=== PATIENT | female | born 1960 | race Caucasian/White ===

== ENCOUNTER 2016-08-29 18:59 | Inpatient (IN) | payer OTHER ==
[~2016-08-29] VITALS: Ht 157.5 cm; Wt 127.6 kg
[~2016-08-29 18:59] MED LIST: AMIT10TA6 PO; ASPCH81X PO; ATOR-26 PO; CHOLCAP5 PO; DICL-201 PO; FENO145T26 PO; FRS/40 PO; HYDR-4079 PO; INSU1INJ16 SC; LOSA50TA54 PO; MAGN500T4 PO; METO25TA56 PO; NVLNI SC; TRAM-10 PO
[2016-08-29] MEDS ORDERED: SODIUM CHLORIDE 0.9% 1000ML 1,000 ML IV STA (19:37)
[2016-08-29 19:58] LABS: BASO % 0.6 %; BASO ABS # 0.08 K/uL (0-0.2); COMPLETE YES; EOS % 3.7 %; HEMATOCRIT 31.9 % (37-47); IG% 0.5 %; LYMPH ABS # 3.86 K/uL (1.2-3.4); MEAN CELL VOLUME 86.9 fL (80-100); MEAN CORPUSCULAR HEMOGLOBIN 28.9 pg (25-34); MEAN CORPUSCULAR HGB CONC 33.2 g/dl (32-36); MEAN PLATELET VOLUME 9.9 fL (7.4-10.4); MONO % 6.8 %; NEUT % 58.4 %; PLATELET COUNT 288 K/uL (130-400); RED BLOOD COUNT 3.67 M/uL (4.2-5.4); WHITE BLOOD COUNT 12.85 K/uL (4.8-10.8)
[2016-08-29] MEDS ORDERED: CIPR1TAB10 PO (20:03)
[2016-08-29] MEDS ORDERED: MISCCAP80 (20:03)
[2016-08-29] MEDS ORDERED: LIRA18IN SQ (20:03)
[2016-08-29] MEDS ORDERED: NVLNI SQ (20:03)
[2016-08-29 20:16] LABS: BUN/CREATININE RATIO 17.5 (10-20); CREATININE 2.7 mg/dl (0.60-1.20); POTASSIUM 4.1 mmol/L (3.5-5.1)
[2016-08-29] MEDS ORDERED: SODIUM CHLORIDE 0.9% 500ML 500 ML IV STA (21:04)
[2016-08-29 21:36] LABS: URINE APPEARANCE CLEAR (CLEAR); URINE BILIRUBIN NEG (NEG); URINE COLOR YELLOW; URINE EPITHELIAL CELL AUTO 20-30 /lpf (0-5); URINE NITRITE NEG (NEG); URINE SPECIFIC GRAVITY 1.011 (1.000-1.030); UROBILINOGEN NEG (NEG); ZZUR CULT IF INDIC CLEAN CATCH NO
[2016-08-29 21:38] LABS: MANUAL MICROSCOPIC REQUIRED? NO; REVIEW REQ? NO
[2016-08-29 23:13] LABS: INR 1.1 (0.9-1.1); PARTIAL THROMBOPLASTIN RATIO 1.1; PROTHROMBIN TIME (PATIENT) 11.3 SECONDS (9.0-12.0)
--- NOTE | 2016-08-29 23:26 | History and Physical ---
History & Physical Date & Time of Service: Aug 29, 2016 at 22:45 . Chief Complaint: diarrhea . Primary Care Physician: Kaila Freitas M.D. . History of Present Illness Source: patient, clinic records, hospital records 55 YO female followed by Dr. Freitas. History of hypertension, DM, and other problems noted below. Bitten by domestic cat a few weeks ago. Seen in [place] ED and prescribed antibiotics (uncertain which ones). Persistent pain and swelling of dorsum of right hand, but no drainage. Prescribed ciprofloxacin yesterday. Developed diarrhea 4 days prior to admission. Diarrhea was very frequent for the first few days- sometimes twice an hour. She took Pepto-Bismol and probiotics. Only had 4 episodes today. Stools are loose with some blood. No abdominal pain, nausea, vomiting. Temp as high as 103 past few days. . Past Medical/Surgical History Chronic Medical Problems: (1) Charcot's joint of foot due to diabetes Status: Chronic (2) Chronic kidney disease (CKD), stage III (moderate) Status: Chronic (3) Diabetes mellitus, type 2 Status: Chronic (4) Diabetic neuropathy Status: Chronic (5) Dyslipidemia Status: Chronic (6) Hypertension Status: Chronic (7) Osteoarthritis Status: Chronic (8) Sleep apnea Status: Chronic Surgical Problems: (3) Status post colonoscopy Permanent Comment: 2012- 2 hyperplastic + 1 adenomatous polyps; 2016- normal Status: Chronic (4) Status post tonsillectomy Status: Chronic (5) Status post tubal ligation Status: Chronic . Family History FATHER COPD (chronic obstructive pulmonary disease) Heart disease MOTHER Rheumatoid arthritis SISTER Stroke SON Diabetes mellitus Social History Smoking Status: Former Smoker Alcohol Use: none Immunizations History of Influenza Vaccine: Yes History of Pneumococcal: Yes Allergies Coded Allergies: Amoxicillin (Verified Allergy, Intermediate, HIVES, 08/29/16) Clavulanic Acid (Verified Allergy, Intermediate, HIVES, 08/29/16) Lisinopril (Verified Adverse Reaction, Unknown, NAUSEA/VOMITING, 04/04/16) Home Medications Scheduled Amitriptyline Hcl (Elavil), 4 TAB PO HS Aspirin (Aspirin Chewable), 81 MG PO QAM Atorvastatin (Lipitor), 80 MG PO HS Cholecalciferol (Vitamin D3), 1 CAP PO QAM Ciprofloxacin Hcl (Cipro), 500 MG PO Q12 Diclofenac (Voltaren), 75 MG PO Q OTHER PM Fenofibrate (Tricor), 145 MG PO QAM Furosemide (Lasix), 40 MG PO ON HOLD Insulin Human NPH (Novolin N), 100 UNITS SC QAM Insulin Human NPH (Novolin N), 60 UNITS SQ QPM Insulin Regular (Human) (Novolin R Relion), 1 DOSE SC TID Liraglutide (Victoza), 1.8 UNITS SQ DAILY Losartan Potassium (Cozaar), 50 MG PO QAM Magnesium Oxide (Mg Supplement (Magnesium), 1 TAB PO QAM Metoprolol Tartrate (Lopressor) (Lopressor), 1 TAB PO BID Probiotic Product (Probiotic), 1 CAP DAILYBB Scheduled PRN Hydrocodone/Acetaminophen 10MG/325MG ([place] 10MG/325MG), 1 TAB PO TID PRN for Pain Tramadol (Ultram), 50 MG PO Q6H PRN for Pain Review of Systems Constitutional: + fatigue, + fever, + weight loss (few pounds) Eyes: + worsening of vision (occasional blurred vision), No diplopia ENT: No hearing loss, No nasal symptoms, No sore throat, No unusual epistaxis Respiratory: No cough, No shortness of breath Cardiovascular: + edema (chronic dependent), + palpitations (occasional past few days), No chest pain Abdomen: + problem reported (as noted above in HPI) Musculoskeletal: + problem reported (right lateral thigh pain) Genitourinary - Female: No dysuria, No hematuria Neurologic: + problem reported (diabetic neuropathy), No paralysis Endocrine: + fatigue, + problem reported (blood sugars fluctuating), No excessive thirst, No excessive urination Hematologic / Lymphatic: No abnormal bleeding/bruising, No swollen lymph nodes Integumentary: No itch, No new/changing skin lesions, No rash Physical Exam Vital Signs Date Time Temp Pulse Resp B/P Pulse Ox O2 Delivery O2 Flow Rate FiO2 08/29/16 21:47 70 18 114/72 98 Room Air 08/29/16 20:25 80 20 116/66 99 Room Air 08/29/16 19:08 37.0 83 19 117/71 99 Room Air General Appearance: WD/WN, no apparent distress, + obese Head: normocephalic, atraumatic Eyes: normal inspection, PERRL, EOMI, sclerae normal (conjuncitvae pink) ENT: normal ENT inspection, hearing grossly normal, pharynx normal, + pertinent finding (edentulous, uppper + lower dentures) Neck: supple, no adenopathy, thyroid normal, no JVD, trachea midline Respiratory/Chest: lungs clear, no respiratory distress Cardiovascular: regular rate, rhythm, no gallop, no JVD, no murmur, + pertinent finding (trace pretibial edema; pedal pulses diminished) Abdomen/GI: normal bowel sounds, non tender, soft, no organomegaly, no pulsatile mass Extremities/Musculoskelatal: no calf tenderness, normal capillary refill, + pedal edema (trace), + pertinent finding (Charcot deformity right foot; no diabetic foot ulcers) 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 (PERRL, EOMI, no facial palsy, no dysarthria), alert, normal mood/affect, oriented x 3, + pertinent finding ( proximal RLE weakness vs discomfort from pain) Skin: normal color, warm/dry, no rash Lymphatic: no adenopathy Diagnostics Laboratory Results Results Past 24 Hours Test 08/29/16 19:47 08/29/16 21:15 Range/Units White Blood Count 12.85 4.8-10.8 K/uL Red Blood Count 3.67 4.2-5.4 M/uL Hemoglobin 10.6 12.0-16.0 g/dL Hematocrit 31.9 37-47 % Mean Corpuscular Volume 86.9 80-100 fL Mean Corpuscular Hemoglobin 28.9 25-34 pg Mean Corpuscular Hemoglobin Concent 33.2 32-36 g/dl Platelet Count 288 130-400 K/uL Mean Platelet Volume 9.9 7.4-10.4 fL Neutrophils (%) (Auto) 58.4 % Lymphocytes (%) (Auto) 30.0 % Monocytes (%) (Auto) 6.8 % Eosinophils (%) (Auto) 3.7 % Basophils (%) (Auto) 0.6 % Neutrophils # (Auto) 7.48 1.4-6.5 K/uL Lymphocytes # (Auto) 3.86 1.2-3.4 K/uL Monocytes # (Auto) 0.88 0.11-0.59 K/uL Eosinophils # (Auto) 0.48 0-0.5 K/uL Basophils # (Auto) 0.08 0-0.2 K/uL RDW Standard Deviation 49.0 36.4-46.3 fL RDW Coefficient of Variation 15.3 11.5-14.5 % Immature Granulocyte % (Auto) 0.5 % Immature Granulocyte # (Auto) 0.07 0.00-0.02 K/uL Prothrombin Time 11.3 9.0-12.0 SECONDS Prothromb Time International Ratio 1.1 0.9-1.1 Activated Partial Thromboplast Time 27.7 21.0-31.0 SECONDS Partial Thromboplastin Ratio 1.1 Sodium Level 138 136-145 mmol/L Potassium Level 4.1 3.5-5.1 mmol/L Chloride Level 102 98-107 mmol/L Carbon Dioxide Level 28 21-32 mmol/L Anion Gap 8.0 3-11 mmol/L Blood Urea Nitrogen 47 7-18 mg/dl Creatinine 2.70 0.60-1.20 mg/dl Est Creatinine Clear Calc Drug Dose 29.8 ml/min Estimated GFR () 21.9 Estimated GFR (Non- 18.9 BUN/Creatinine Ratio 17.5 10-20 Random Glucose 133 70-99 mg/dl Calcium Level 10.0 8.5-10.1 mg/dl Total Bilirubin 0.3 0.2-1 mg/dl Direct Bilirubin 0.1 0-0.2 mg/dl Aspartate Amino Transf (AST/SGOT) 34 15-37 U/L Alanine Aminotransferase (ALT/SGPT) 34 12-78 U/L Alkaline Phosphatase 83 45-117 U/L Total Protein 8.3 6.4-8.2 gm/dl Albumin 3.5 3.4-5.0 gm/dl Lipase 148 73-393 U/L Urine Color YELLOW Urine Appearance CLEAR CLEAR Urine pH 5.0 4.5-7.5 Urine Specific [place] 1.011 1.000-1.030 Urine Protein NEG NEG Urine Glucose (UA) NEG NEG Urine Ketones NEG NEG Urine Occult Blood NEG NEG Urine Nitrite NEG NEG Urine Bilirubin NEG NEG Urine Urobilinogen NEG NEG Urine Leukocyte Esterase TRACE NEG Urine WBC (Auto) 1-5 0-5 /hpf Urine RBC (Auto) 0-4 0-4 /hpf Urine Hyaline Casts (Auto) 5-10 0-5 /lpf Urine Epithelial Cells (Auto) 20-30 0-5 /lpf Urine Bacteria (Auto) NEG NEG Urine Test NEG NEG Impression Assessment and Plan ACUTE KIDNEY INJURY CKD III with recent baseline creatinine 1.6 - 1.9. Serum creatinine now 2.7. Acute kidney injury probably due to volume depletion from diarrhea. IV fluids. Weaning off diclofenac under direction of Nephrology. DIARRHEA At risk for C diff- stool specimen pending. GI BLEEDING Most likely due to colitis. Colonoscopy last year reportedly normal. Follow H/H. CAT BITE RIGHT HAND Cat bite a few weeks ago, now on second course of antibiotics. Persistent swelling dorsum of right hand. Uncertain whether or not hand is infected at this time. Hold antibiotics in light of diarrhea. Markers of inflammation probably won't be helpful in setting of diarrheal illness. Check x-rays and US right hand. RLE PAIN Patient experiencing severe right lower extremity pain- suspect sciatica. Check plain films lumbar spine. Check US to r/o DVT. May need further imaging if symptoms persist. HYPERTENSION Continue metoprolol with hold parameters. SLEEP APNEA Intolerant of CPAP. DM TYPE II Fluctuating blood sugars due to current illness. Check Hgb A1C. Lantus / NovoLog during hospital stay. VTE PROPHYLAXIS No anticoagulants due to GI bleeding. SCD's. Ambulate. RESUSCITATION STATUS Discussed with patient. She does not have a living will. She would like resuscitation attempted in the event of a cardiopulmonary arrest if there is a reasonable chance of a meaningful recovery, but does not want prolonged extraordinary measures if prognosis is poor. Therefore, code status = "Level 1" (full resuscitation). DISPOSITION Admit to Med-Surg Unit. Expected discharge to home. Family Medicine follow-up with Dr. Freitas. . VTE Prophylaxis VTE Risk Assessment Done? Y/N: Yes Risk Level: Moderate Given or contraindicated: SCD's
[2016-08-29] MEDS ORDERED: HYDROCODONE/ACETAMI 10/325 TAB PO STA (23:43)
[2016-08-29] MEDS ORDERED: ATORVASTATIN 40 MG TAB PO STA (23:43)
[2016-08-29] MEDS ORDERED: METOPROLOL TARTRATE 25 MG TAB PO STA (23:43)
[2016-08-29 23:50] VITALS: BP 114/68; PULSE 73; TEMP 36.7; O2SAT 97
[2016-08-30 00:04] VITALS: BMI 51.5
--- NOTE | 2016-08-30 00:55 | EMERGENCY ROOM VISIT NOTE ---
History Report prepared by Vanessa: Eliseo Interiano Under the Supervision of: Dr. See Duarte D.O. First contact with patient: 19:17 Chief Complaint: GI ASSESSMENT Stated Complaint: CAT BITE - SWOLLEN RIGHT HAND History of Present Illness The patient is a 55 year old female who presents to the Emergency Room with complaints of persistent diarrhea beginning four days prior to arrival. She states she was bitten in her right hand by her cat six weeks ago and has been on antibiotics since. The patient notes she was on antibiotics for 24 days and was off of antibiotics for a week and then placed on Cipro yesterday. She states her stool is loose with mucous, blood, and white specs. The patient notes she follow with Lachelle Hernandez (Nephrology) for her poor kidney function due to her diabetes, in which, she had blood work done yesterday. She states Dr. John called the patient today to stop her Lasix and referred her to the ED for hydration. The patient notes she has had four bowel movements today after taking probiotics that past two days and Pepto-Bismol. She states she had bowel movements every twenty minutes yesterday. The patient notes the blood in the stool began last night. She states she has recently been taking care of her aunt who currently has C. Diff. Pt denies headache, change in vision, fevers, chest pain, shortness of breath, runny nose, nausea, vomiting, abdominal pain, pain with urination, and melena. 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 A total of 10 systems reviewed and were otherwise negative. Past Medical & Surgical Medical Problems: (1) Diabetes Surgical Problems: (1) S/P cholecystectomy (2) S/P tubal ligation Family History FH: cancer Social History Smoking Status: Former Smoker Marital Status: Occupation Status: unemployed Current/Historical Medications Scheduled Amitriptyline Hcl (Elavil), 4 TAB PO HS Aspirin (Aspirin Chewable), 81 MG PO QAM Atorvastatin (Lipitor), 80 MG PO HS Cholecalciferol (Vitamin D3), 1 CAP PO QAM Ciprofloxacin Hcl (Cipro), 500 MG PO Q12 Diclofenac (Voltaren), 75 MG PO Q OTHER PM Fenofibrate (Tricor), 145 MG PO QAM Furosemide (Lasix), 40 MG PO ON HOLD Insulin Human NPH (Novolin N), 100 UNITS SC QAM Insulin Human NPH (Novolin N), 60 UNITS SQ QPM Insulin Regular (Human) (Novolin R Relion), 1 DOSE SC TID Liraglutide (Victoza), 1.8 UNITS SQ DAILY Losartan Potassium (Cozaar), 50 MG PO QAM Magnesium Oxide (Mg Supplement (Magnesium), 1 TAB PO QAM Metoprolol Tartrate (Lopressor) (Lopressor), 1 TAB PO BID Probiotic Product (Probiotic), 1 CAP DAILYBB Scheduled PRN Hydrocodone/Acetaminophen 10MG/325MG ([place] 10MG/325MG), 1 TAB PO TID PRN for Pain Tramadol (Ultram), 50 MG PO Q6H PRN for Pain Allergies Coded Allergies: Amoxicillin (Verified Allergy, Intermediate, HIVES, 08/29/16) Clavulanic Acid (Verified Allergy, Intermediate, HIVES, 08/29/16) Lisinopril (Verified Adverse Reaction, Unknown, NAUSEA/VOMITING, 04/04/16) Physical Exam Vital Signs Date Time Temp Pulse Resp B/P Pulse Ox O2 Delivery O2 Flow Rate FiO2 08/30/16 00:24 Room Air 08/30/16 00:04 Room Air 08/29/16 23:20 78 18 130/74 98 Room Air 08/29/16 21:47 70 18 114/72 98 Room Air 08/29/16 20:25 80 20 116/66 99 Room Air 08/29/16 19:08 37.0 83 19 117/71 99 Room Air Physical Exam GENERAL: sitting up in bed, chronically ill appearing, no acute distress, non- toxic EYE EXAM: normal conjunctiva OROPHARYNX: no exudate, no erythema, lips, buccal mucosa, and tongue normal and mucous membranes are moist NECK: supple, no nuchal rigidity, no adenopathy, non-tender LUNGS: Clear to auscultation. Normal chest wall mechanics HEART: distant, no murmurs, S1 normal and S2 normal ABDOMEN: abdomen soft, non-tender, normo-active bowel sounds, no masses, no rebound or guarding. BACK: Back is symmetrical on inspection and there is no deformity, no midline tenderness, no CVA tenderness. SKIN: no rashes and no bruising UPPER EXTREMITIES: Erythema and swelling on the dorsal aspect of the right hand. LOWER EXTREMITIES: No pitting edema. NEURO EXAM: Normal sensorium, cranial nerves II-XII grossly intact, normal speech, no gross weakness of arms, no gross weakness of legs. Medical Decision & Procedures Laboratory Results 08/29/16 19:47 Red Blood Count 3.67, Mean Corpuscular Volume 86.9, Mean Corpuscular Hemoglobin 28.9, Mean Corpuscular Hemoglobin Concent 33.2, Mean Platelet Volume 9.9, Neutrophils (%) (Auto) 58.4, Lymphocytes (%) (Auto) 30.0, Monocytes (%) (Auto) 6.8, Eosinophils (%) (Auto) 3.7, Basophils (%) (Auto) 0.6, Neutrophils # (Auto) 7.48, Lymphocytes # (Auto) 3.86, Monocytes # (Auto) 0.88, Eosinophils # (Auto) 0.48, Basophils # (Auto) 0.08 08/29/16 19:47 Test 08/29/16 19:47 08/29/16 21:15 08/29/16 23:54 White Blood Count 12.85 K/uL (4.8-10.8) Red Blood Count 3.67 M/uL (4.2-5.4) Hemoglobin 10.6 g/dL (12.0-16.0) Hematocrit 31.9 % (37-47) Mean Corpuscular Volume 86.9 fL (80-100) Mean Corpuscular Hemoglobin 28.9 pg (25-34) Mean Corpuscular Hemoglobin Concent 33.2 g/dl (32-36) Platelet Count 288 K/uL (130-400) Mean Platelet Volume 9.9 fL (7.4-10.4) Neutrophils (%) (Auto) 58.4 % Lymphocytes (%) (Auto) 30.0 % Monocytes (%) (Auto) 6.8 % Eosinophils (%) (Auto) 3.7 % Basophils (%) (Auto) 0.6 % Neutrophils # (Auto) 7.48 K/uL (1.4-6.5) Lymphocytes # (Auto) 3.86 K/uL (1.2-3.4) Monocytes # (Auto) 0.88 K/uL (0.11-0.59) Eosinophils # (Auto) 0.48 K/uL (0-0.5) Basophils # (Auto) 0.08 K/uL (0-0.2) RDW Standard Deviation 49.0 fL (36.4-46.3) RDW Coefficient of Variation 15.3 % (11.5-14.5) Immature Granulocyte % (Auto) 0.5 % Immature Granulocyte # (Auto) 0.07 K/uL (0.00-0.02) Prothrombin Time 11.3 SECONDS (9.0-12.0) Prothromb Time International Ratio 1.1 (0.9-1.1) Activated Partial Thromboplast Time 27.7 SECONDS (21.0-31.0) Partial Thromboplastin Ratio 1.1 Anion Gap 8.0 mmol/L (3-11) Est Creatinine Clear Calc Drug Dose 29.8 ml/min Estimated GFR () 21.9 Estimated GFR (Non- 18.9 BUN/Creatinine Ratio 17.5 (10-20) Calcium Level 10.0 mg/dl (8.5-10.1) Total Bilirubin 0.3 mg/dl (0.2-1) Direct Bilirubin 0.1 mg/dl (0-0.2) Aspartate Amino Transf (AST/SGOT) 34 U/L (15-37) Alanine Aminotransferase (ALT/SGPT) 34 U/L (12-78) Alkaline Phosphatase 83 U/L (45-117) Total Protein 8.3 gm/dl (6.4-8.2) Albumin 3.5 gm/dl (3.4-5.0) Lipase 148 U/L (73-393) Urine Color YELLOW Urine Appearance CLEAR (CLEAR) Urine pH 5.0 (4.5-7.5) Urine Specific [place] 1.011 (1.000-1.030) Urine Protein NEG (NEG) Urine Glucose (UA) NEG (NEG) Urine Ketones NEG (NEG) Urine Occult Blood NEG (NEG) Urine Nitrite NEG (NEG) Urine Bilirubin NEG (NEG) Urine Urobilinogen NEG (NEG) Urine Leukocyte Esterase TRACE (NEG) Urine WBC (Auto) 1-5 /hpf (0-5) Urine RBC (Auto) 0-4 /hpf (0-4) Urine Hyaline Casts (Auto) 5-10 /lpf (0-5) Urine Epithelial Cells (Auto) 20-30 /lpf (0-5) Urine Bacteria (Auto) NEG (NEG) Urine Test NEG (NEG) Bedside Glucose 81 mg/dl (70-90) Laboratory results per my review. Medications Administered Medications (Trade) Dose Ordered Sig/Olivia Route Start Time Stop Time Status Last Admin Dose Admin Sodium Chloride 1,000 ml @ 999 mls/hr Q1H1M STAT IV 08/29/16 19:37 08/29/16 20:37 DC 08/29/16 20:24 999 MLS/HR Sodium Chloride (Nss 500ml) 500 ml @ 999 mls/hr Q31M STAT IV 08/29/16 21:04 08/29/16 21:34 DC 08/29/16 21:12 999 MLS/HR ED Course ED COURSE: Vital signs were reviewed and showed normal vitals. The patients medical record was reviewed The above diagnostic studies were performed and reviewed. ED treatments and interventions as stated above. 1924: The patient was evaluated in room B7. A complete history and physical examination was performed. 1936: Ordered Sodium Chloride 1,000 ml @ 999 mls/hr IV. 2029: Reevaluated and updated the patient at this time, and she has not provided a stool sample yet. The patient does not know the level of her baseline creatinine. The creatinine level will be obtained from [facility]. 2044: It is noted the patient's creatinine was 3.2 yesterday. It was 1.9 last month. 2048: I spoke to Lachelle Correa (Internal Medicine) about the patient's case, and she recommended having the patient follow up as an outpatient. 2103: Ordered Sodium Chloride 500 ml @ 999 mls/hr IV. 2142: I spoke to Lachelle Bains (Hospitalist) about the patient's case, and he will follow the patient for further evaluation. 2199: Upon reevaluation, the patient is doing well.I discussed my findings with the patient and she understands and agrees with the treatment plan. Based on the patients age, coexisting illnesses, exam and lab findings the decision to treat as an inpatient was made. The patient remained stable while under my care. The patient will be evaluated for further management. Medical Decision Differential diagnoses includes but is not limited to gastritis, peptic ulcer disease, GERD, gallbladder disease, pancreatitis, small bowel obstruction, acute coronary syndrome, pericarditis, ischemic bowel, irritable bowel disease, irritable bowel syndrome, appendicitis, diverticulitis, malignancy, hernia, urinary tract infection, torsion, /ectopic , perforation, trauma, infectious. Patient is a 55-year-old female referred in by nephrology and elevation in her creatinine. She has had persistent diarrhea over the past several days. She has no abdominal pain. She is able to drink liquids without difficulty. Labs show a leukocytosis of 12.8 thousand. A mild anemia at 10.6. BMP shows a creatinine of 2.7. Her baseline appears to be around 1.4. UA was negative. She is given 1.5 L normal saline and was able to tolerate to 4 glasses of for her. She is unable to give a stool several. I do question whether this is related to C. difficile with her recent antibiotic use secondary to the cellulitis of the right upper extremity. Patient was admitted to internal medicine with acute kidney injury. Consults Time Called: 2043 Consulting Physician: Lachelle Correa (Internal Medicine) Returned Call: 2048 I spoke to Lachelle Correa (Internal Medicine) about the patient's case, and she recommended having the patient follow up as an outpatient. Additional Consults: Time Called: 2130 Consulted Physician: Lachelle Bains (Hospitalist) Returned Call: 2142 Additional Comments: I spoke to Lachelle Bains (Hospitalist) about the patient's case, and he will follow the patient for further evaluation. Impression Primary Impression: Acute kidney injury Additional Impression: Diarrhea Scribe Attestation The scribe's documentation has been prepared under my direction and personally reviewed by me in its entirety. I confirm that the note above accurately reflects all work, treatment, procedures, and medical decision making performed by me. Departure Information Dispostion Being Evaluated By Hospitalist (Lachelle Bains (Hospitalist)) Referrals Kaila Freitas M.D. (PCP) Problem Qualifiers Additional Impression: Diarrhea Diarrhea type: unspecified type Qualified Codes: R19.7 - Diarrhea, unspecified
[2016-08-30] MEDS ORDERED: GLUCAGON FOR INJ 1 MG VIAL SQ PRN (02:15)
[2016-08-30] MEDS ORDERED: GLUCOSE 40% GEL 15 GM TUBE PO PRN (02:15)
[2016-08-30] MEDS ORDERED: DEXTROSE 50% 50 ML SYR IV PRN (02:15)
[2016-08-30] MEDS ORDERED: GLUCOSE 10 TABS/TUBE PO PRN (02:15)
[2016-08-30] MEDS: LACTATED RINGER'S 1000ML 1,000 ML IV SCH ×3 (02:16→21:04)
[2016-08-30 06:23] LABS: HEMATOCRIT 27.7 % (37-47); MEAN CELL VOLUME 88.2 fL (80-100); MEAN CORPUSCULAR HGB CONC 32.9 g/dl (32-36); PLATELET COUNT 228 K/uL (130-400); RED BLOOD COUNT 3.14 M/uL (4.2-5.4); WHITE BLOOD COUNT 10.29 K/uL (4.8-10.8)
[2016-08-30 06:49] LABS: CREATININE 3.3 mg/dl (0.60-1.20)
[2016-08-30 06:50] LABS: BUN/CREATININE RATIO 16.1 (10-20); CALCIUM 8.9 mg/dl (8.5-10.1); POTASSIUM 3.7 mmol/L (3.5-5.1)
[2016-08-30 07:23] LABS: ESTIMATED AVERAGE GLUCOSE 212 mg/dl; HA1C FLAG Normal (Normal)
[2016-08-30 07:30] VITALS: BP 124/73; PULSE 73; TEMP 36.5; O2SAT 100
--- NOTE | 2016-08-30 07:30 | DIAGNOSTIC IMAGING REPORT ---
Venous Doppler right leg RIGHT VENOUS DOPP LOWER EXT UNILAT CLINICAL HISTORY: right thigh pain Right TECHNIQUE: Is Doppler COMPARISON STUDY: None FINDINGS: Normal study IMPRESSION: Normal study Electronically signed by: Surinder Philip M.D. 08/30/2016 7:29 AM Dictated Date/Time: 08/30/2016 7:27 AM
--- NOTE | 2016-08-30 07:30 | DIAGNOSTIC IMAGING REPORT ---
RIGHT HAND 3 VIEWS HISTORY: cat bite, r/o osteomyelitis Right COMPARISON: None. FINDINGS: There is no fracture or dislocation. Dorsal soft tissue swelling. No underlying bony destruction. Mild osteoarthritis at the DIP, PIP, and radiocarpal joints. No radiopaque foreign bodies. IMPRESSION: Dorsal soft tissue swelling. No evidence for osteomyelitis. Electronically signed by: Domo Morales M.D. 08/30/2016 7:29 AM Dictated Date/Time: 08/30/2016 7:28 AM
--- NOTE | 2016-08-30 07:37 | DIAGNOSTIC IMAGING REPORT ---
RIGHT HAND ULTRASOUND CLINICAL HISTORY: cat bite, rule out drainable fluid collection Right COMPARISON STUDY: Right hand 08/30/2016. FINDINGS: There is a complex fluid collection containing echogenic foci on the dorsum of the right hand. This is adjacent to and surrounds the dorsal tendons. This measures approximate 1.6 x 0.5 cm. The dorsal tendons appear to be thickened. There is also increased echogenicity within the fat and subcutaneous edema within the dorsum of the hand consistent with a cellulitis. IMPRESSION: 1. Right hand dorsal cellulitis. 2. A complex fluid collection containing echogenic foci in the dorsum of the hand. Which is adjacent to an surrounds the dorsal tendons. This measures approximately 1.6 x 0.5 cm. This would not be amenable to percutaneous drainage due to the complex nature of the fluid collection. This is concerning for a developing abscess. Consider incision and drainage. Electronically signed by: Domo Morales M.D. 08/30/2016 7:36 AM Dictated Date/Time: 08/30/2016 7:31 AM
--- NOTE | 2016-08-30 07:57 | DIAGNOSTIC IMAGING REPORT ---
LUMBAR SPINE 5 VIEWS HISTORY: Pain trauma COMPARISON: None. FINDINGS: There is no fracture. No subluxation. Moderate degenerative disc changes throughout. IMPRESSION: Moderate degenerative change. No acute abnormality. Electronically signed by: Surinder Philip M.D. 08/30/2016 7:55 AM Dictated Date/Time: 08/30/2016 7:55 AM
[2016-08-30] MEDS: METOPROLOL TARTRATE 25 MG TAB PO SCH ×2 (08:57→21:13)
[2016-08-30] MEDS: FENOFIBRATE 145 MG TAB PO SCH (08:57)
[2016-08-30] MEDS: ASPIRIN 81 MG ECTAB PO SCH (08:57)
[2016-08-30] MEDS: LOSARTAN POTASSIUM 50 MG TAB PO SCH (08:57)
[2016-08-30] MEDS: INSULIN ASPART 100 UNITS/ML 3 ML PEN SC SCH ×4 (09:03→21:00)
[2016-08-30] MEDS: INSULIN GLARGINE SOLOSTAR 100 UNITS/ML 3 ML PEN SC SCH ×2 (09:04→21:11)
[2016-08-30] MEDS: TRAMADOL HCL 50 MG TAB PO PRN ×2 (09:12→18:21)
[2016-08-30 09:40] VITALS: O2SAT 94
[2016-08-30 11:26] VITALS: Ht 157.5 cm; Wt 127.6 kg
[2016-08-30] MEDS ORDERED: VANCOMYCIN HCL 125 MG/2.5ML SOLN PO ONE (15:45)
[2016-08-30] MEDS ORDERED: RASPBERRY SYRUP 5 ML UDP PO ONE (15:45)
[2016-08-30 16:02] VITALS: BP 116/70; PULSE 73; TEMP 36.9; O2SAT 100
--- NOTE | 2016-08-30 16:08 | ORTHOPEDIC PROGRESS NOTE ---
DATE: 08/30/2016 SUBJECTIVE: The patient is a 55-year-old white female we have been asked to see for a cat bite was approximately 6 weeks out. The patient was admitted by [facility] service and she has a diagnosis of C. difficile diarrhea and acute kidney injury and GI bleeding, which was felt to be due to colitis. However, it was also noted with she had right hand swelling of the that she had mentioned that she had been bitten by a cat approximately 6 weeks ago. She states that she cleansed the wound at the time of the bite and the cat has done this in the past and has not turned into anything; however, after about a week or so, the hand began to swell very much and turned purplish and at that time she went to [facility] office and was seen by the staff there and was started on antibiotics. She continued to have the swelling and discomfort and she stated that her skin was starting to peel and crack over some of the areas and she went to [place] [facility]. At that point in time, she was switched onto 2 different antibiotics that she was on prior and at that time she also had a hand x-ray and which she states to be an ultrasound of the right hand and was then discharged. Over time, the swelling had gone down to the point where it was almost normal. She states that she has been off her antibiotics for approximately 1 week and had began having her symptoms of other problems prior to admit. She states that she noted it started to swell more but not to the extent of what it was prior to her antibiotics that she had received. OBJECTIVE: On examination of the right upper extremity just looking at her hand, there is an area over the fourth metacarpal where you can see where the cat bite was, she does have an area over the fourth and fifth metacarpals that has some mild to moderate edema but is not erythematous, has a slight dusky erythema to it in a small section near the bite and has some mild tenderness between the fourth and fifth metacarpals on palpation. She tolerates passive dorsiflexion of the 4th and 5th fingers without any increased pain. She tolerates passive and active flexion of the 4th and 5th fingers without any pain. She has full range of motion of her fingers at this time without discomfort. She is able to move the wrist back and forth without discomfort. Capillary refill is less than 2 seconds and she does have some decreased sensation that is equal to her left hand due to neuropathy and she states that this has not worsened since the cat bite. IMAGING DATA: The patient had an ultrasound of the right hand today which showed right hand dorsal cellulitis and a complex fluid collection containing echogenic foci in the dorsum of the hand measuring approximately 1.6 x 0.5 cm, stating that it would not be amenable to percutaneous drainage due to the complex nature of the fluid collection concerning for abscess and x-ray shows dorsal soft tissue swelling, no evidence of osteomyelitis at this point in time. Otherwise, a normal x-ray. ASSESSMENT: Fluid collection, dorsum of the right hand at the fourth and fifth metacarpals, possibly consistent with abscess due to cat bite 6 weeks ago. PLAN: At this point, we will contact the [facility] and see if she did indeed have an ultrasound done there approximately 3 weeks ago to compare with today's ultrasound. She was currently put on p.o. vancomycin for her C. difficile diarrhea. I will confer with Dr. Rendon who is personal fitness manager at this time to discuss further antibiotic treatment for this and the possible need for irrigation and debridement of the area. MONTSE
--- NOTE | 2016-08-30 16:11 | Progress Note ---
Internal Med Progress Note Date of Service: Aug 30, 2016. Provider Documentation: SUBJECTIVE: The Patient was seen and examined Has had 2 loose stool today A little formed Complains of pain right dorsum OBJECTIVE: Vital Signs-as noted below Exam: General-no distress Eyes-normal ENT-normal Neck-supple Lungs-clear to ausucltate bilaterally Heart-Regular,no murmur Abdomen-benign,no masses,bowel sound present Extremities-No edema Right Dorsum is swollen ,increased local temp and tender to palpate Neuro-AAOx3 Lab data as noted below. ASSESSMENT & PLAN: DIARRHEA Has had 2 courses of antibiotic as an OP At risk for C diff- stool-positive Will start Vancomycin ACUTE KIDNEY INJURY Likely secondary to dehydration CKD III with recent baseline creatinine 1.6 - 1.9. Serum creatinine now 2.7. Avoid Nephrotoxic agents IVF and monitor DM TYPE II-uncontrolled Fluctuating blood sugars due to current illness. Check Hgb A1C-9. Lantus / NovoLog during hospital stay. SSI CAT BITE RIGHT HAND Cat bite a few weeks ago, now on second course of antibiotics. Persistent swelling dorsum of right hand. X-ray does not show any Osteo Fluid collection suspicious for an Abscess Ortho consulted for possible I&D No antibiotic yet-has had 2 course as an OP GI BLEEDING Most likely due to colitis. Colonoscopy last year reportedly normal. Follow H/H. RLE PAIN Patient experiencing severe right lower extremity pain- suspect sciatica. Check plain films lumbar spine. Check US to r/o DVT.-no DVT HYPERTENSION Continue metoprolol with hold parameters. SLEEP APNEA Intolerant of CPAP. VTE PROPHYLAXIS No anticoagulants due to GI bleeding. SCD's. Ambulate. RESUSCITATION STATUS-Level 1 DISPOSITION Admit to Med-Surg Unit. Expected discharge to home. Family Medicine follow-up with Dr. Freitas. Vital Signs: Date Time Temp Pulse Resp B/P Pulse Ox O2 Delivery O2 Flow Rate FiO2 08/30/16 09:40 94 08/30/16 07:40 Room Air 08/30/16 07:30 36.5 73 16 124/73 100 Room Air 08/30/16 00:24 Room Air 08/30/16 00:04 Room Air 08/29/16 23:50 36.7 73 18 114/68 97 Room Air 08/29/16 23:20 78 18 130/74 98 Room Air 08/29/16 21:47 70 18 114/72 98 Room Air 08/29/16 20:25 80 20 116/66 99 Room Air 08/29/16 19:08 37.0 83 19 117/71 99 Room Air Lab Results: Results Past 24 Hours Test 08/29/16 19:47 08/29/16 21:15 08/29/16 23:26 08/29/16 23:54 Range/Units White Blood Count 12.85 4.8-10.8 K/uL Red Blood Count 3.67 4.2-5.4 M/uL Hemoglobin 10.6 12.0-16.0 g/dL Hematocrit 31.9 37-47 % Mean Corpuscular Volume 86.9 80-100 fL Mean Corpuscular Hemoglobin 28.9 25-34 pg Mean Corpuscular Hemoglobin Concent 33.2 32-36 g/dl Platelet Count 288 130-400 K/uL Mean Platelet Volume 9.9 7.4-10.4 fL Neutrophils (%) (Auto) 58.4 % Lymphocytes (%) (Auto) 30.0 % Monocytes (%) (Auto) 6.8 % Eosinophils (%) (Auto) 3.7 % Basophils (%) (Auto) 0.6 % Neutrophils # (Auto) 7.48 1.4-6.5 K/uL Lymphocytes # (Auto) 3.86 1.2-3.4 K/uL Monocytes # (Auto) 0.88 0.11-0.59 K/uL Eosinophils # (Auto) 0.48 0-0.5 K/uL Basophils # (Auto) 0.08 0-0.2 K/uL RDW Standard Deviation 49.0 36.4-46.3 fL RDW Coefficient of Variation 15.3 11.5-14.5 % Immature Granulocyte % (Auto) 0.5 % Immature Granulocyte # (Auto) 0.07 0.00-0.02 K/uL Prothrombin Time 11.3 9.0-12.0 SECONDS Prothromb Time International Ratio 1.1 0.9-1.1 Activated Partial Thromboplast Time 27.7 21.0-31.0 SECONDS Partial Thromboplastin Ratio 1.1 Sodium Level 138 136-145 mmol/L Potassium Level 4.1 3.5-5.1 mmol/L Chloride Level 102 98-107 mmol/L Carbon Dioxide Level 28 21-32 mmol/L Anion Gap 8.0 3-11 mmol/L Blood Urea Nitrogen 47 7-18 mg/dl Creatinine 2.70 0.60-1.20 mg/dl Est Creatinine Clear Calc Drug Dose 29.8 ml/min Estimated GFR () 21.9 Estimated GFR (Non- 18.9 BUN/Creatinine Ratio 17.5 10-20 Random Glucose 133 70-99 mg/dl Calcium Level 10.0 8.5-10.1 mg/dl Total Bilirubin 0.3 0.2-1 mg/dl Direct Bilirubin 0.1 0-0.2 mg/dl Aspartate Amino Transf (AST/SGOT) 34 15-37 U/L Alanine Aminotransferase (ALT/SGPT) 34 12-78 U/L Alkaline Phosphatase 83 45-117 U/L Total Protein 8.3 6.4-8.2 gm/dl Albumin 3.5 3.4-5.0 gm/dl Lipase 148 73-393 U/L Hepatitis C Antibody NEG NEG Urine Color YELLOW Urine Appearance CLEAR CLEAR Urine pH 5.0 4.5-7.5 Urine Specific [place] 1.011 1.000-1.030 Urine Protein NEG NEG Urine Glucose (UA) NEG NEG Urine Ketones NEG NEG Urine Occult Blood NEG NEG Urine Nitrite NEG NEG Urine Bilirubin NEG NEG Urine Urobilinogen NEG NEG Urine Leukocyte Esterase TRACE NEG Urine WBC (Auto) 1-5 0-5 /hpf Urine RBC (Auto) 0-4 0-4 /hpf Urine Hyaline Casts (Auto) 5-10 0-5 /lpf Urine Epithelial Cells (Auto) 20-30 0-5 /lpf Urine Bacteria (Auto) NEG NEG Urine Test NEG NEG Bedside Glucose 70 81 70-90 mg/dl Test 08/30/16 06:05 08/30/16 07:00 08/30/16 12:06 Range/Units White Blood Count 10.29 4.8-10.8 K/uL Red Blood Count 3.14 4.2-5.4 M/uL Hemoglobin 9.1 12.0-16.0 g/dL Hematocrit 27.7 37-47 % Mean Corpuscular Volume 88.2 80-100 fL Mean Corpuscular Hemoglobin 29.0 25-34 pg Mean Corpuscular Hemoglobin Concent 32.9 32-36 g/dl RDW Standard Deviation 49.5 36.4-46.3 fL RDW Coefficient of Variation 15.3 11.5-14.5 % Platelet Count 228 130-400 K/uL Mean Platelet Volume 10.0 7.4-10.4 fL Sodium Level 138 136-145 mmol/L Potassium Level 3.7 3.5-5.1 mmol/L Chloride Level 104 98-107 mmol/L Carbon Dioxide Level 26 21-32 mmol/L Anion Gap 8.0 3-11 mmol/L Blood Urea Nitrogen 53 7-18 mg/dl Creatinine 3.30 0.60-1.20 mg/dl Est Creatinine Clear Calc Drug Dose 24.4 ml/min Estimated GFR () 17.2 Estimated GFR (Non- 14.9 BUN/Creatinine Ratio 16.1 10-20 Random Glucose 67 70-99 mg/dl Estimated Average Glucose 212 mg/dl Hemoglobin A1c 9.0 4.5-5.6 % Calcium Level 8.9 8.5-10.1 mg/dl Total Creatine Kinase 66 26-192 U/L Bedside Glucose 72 103 70-90 mg/dl Microbiology Results 08/30/16 C.difficile Toxin B Gene (PCR) - Final, Complete Positive for C. difficile toxin B gene
[2016-08-30] MEDS ORDERED: DOXYCYCLINE IV 100 MG in DEXTROSE 5% 100ML 100 ML IV ONE (18:00)
[2016-08-30] MEDS: VANCOMYCIN HCL 125 MG/2.5ML SOLN PO SCH ×2 (18:28→21:04)
[2016-08-30] MEDS: RASPBERRY SYRUP 5 ML UDP PO SCH ×2 (18:28→21:06)
[2016-08-30 19:25] VITALS: O2SAT 100
[2016-08-30] MEDS: HYDROCODONE/ACETAMI 10/325 TAB PO PRN (21:05)
[2016-08-30] MEDS: AMITRIPTYLINE HCL 10 MG TAB PO SCH (21:06)
[2016-08-30] MEDS: ATORVASTATIN 40 MG TAB PO SCH (21:14)
[2016-08-30 23:39] VITALS: BP 121/81; PULSE 66; TEMP 36.4; O2SAT 100
[2016-08-31] VITALS (10 sets, daily range): BP systolic 110–135; BP diastolic 51–74; PULSE 69–83; TEMP 36.6–37; O2SAT 93–100
[2016-08-31] MEDS ORDERED: ALUMINUM/MAGNESIUM/SIMETH (MAALOX MAX) 30 ML UDC PO ONE (04:30)
[2016-08-31] MEDS: DOXYCYCLINE IV 100 MG in DEXTROSE 5% 100ML 100 ML IV SCH ×2 (05:56→19:58)
[2016-08-31] MEDS: LACTATED RINGER'S 1000ML 1,000 ML IV SCH ×2 (07:45→19:58)
[2016-08-31] MEDS: INSULIN ASPART 100 UNITS/ML 3 ML PEN SC SCH ×4 (08:00→21:52)
[2016-08-31] MEDS: HYDROCODONE/ACETAMI 10/325 TAB PO PRN (08:01)
[2016-08-31] MEDS: INSULIN GLARGINE SOLOSTAR 100 UNITS/ML 3 ML PEN SC SCH ×2 (09:00→21:53)
--- NOTE | 2016-08-31 09:53 | Orthopedic Progress Note ---
Orthopedic Progress Note Date of Service Aug 31, 2016. Subjective Reports: complaints (c/o right thigh/hip pain that started on Saturday), feeling well, Denies: SOB, chest pain, light headedness, nausea / vomiting Additional Notes: Awake, alert. C/O hip pain in the right lateral hip and anterior thigh today that apparently started Saturday when she was admitted. States that her hand feels "ok" but has a little soreness over the swollen area at the 4-5th metacarpal. No new changes with her hand. Objective Right hand with no overt changes. Dusky swollen area over the 4th and 5th metacarpals at the distal end. Continues to have good ROM. Decreased sensation due to neuropathy which has not changed. Right hip with soreness on palpation. Also tender at the anterior thigh. With FF of the hip, the pain starts in the quadriceps muscles and radiates to the lateral hip and some into the buttock. No pain with log rolling. No pain with Abduction. Mild pain with Adduction. No pain into the lower extremity but she states that she's had the neuropathy in her feet for some time and cannot feel much in her feet. No overt back pain on palpation. Date Time Temp Pulse Resp B/P Pulse Ox O2 Delivery O2 Flow Rate FiO2 08/31/16 07:59 36.6 71 16 110/52 95 Room Air 08/31/16 07:58 95 Room Air 08/30/16 23:58 Room Air 08/30/16 23:39 36.4 66 18 121/81 100 Room Air 08/30/16 19:25 100 Room Air 08/30/16 16:02 36.9 73 18 116/70 100 Room Air 08/30/16 09:40 94 Room Air Assessment & Plan Assessment: Right hand fluid collection noted on ultra sound likely due to cat bite Right LE pain. Plan: [facility] physician to make final decision on right hand I&D. Possible OR today. Keep NPO. Will discuss RLE symptoms with Spine team. Bursitis a possibility of the lateral hip but with her sx's, it seems more radicular. Discussed with Dr Hartley and he viewed xrays. Would be better to have an MRI of the lumbar spine. Will discuss with patient.
[2016-08-31] MEDS: METOPROLOL TARTRATE 25 MG TAB PO SCH ×2 (10:12→21:40)
[2016-08-31] MEDS: RASPBERRY SYRUP 5 ML UDP PO SCH ×4 (10:13→21:39)
[2016-08-31] MEDS: VANCOMYCIN HCL 125 MG/2.5ML SOLN PO SCH ×4 (10:13→21:39)
--- NOTE | 2016-08-31 11:28 | Progress Note ---
Internal Med Progress Note Date of Service: Aug 31, 2016. Provider Documentation: SUBJECTIVE: The Patient was seen and examined No more Diarrhea today Complains of anterior and lateral thigh pain Rihgt hand is better OBJECTIVE: Vital Signs-as noted below Exam: General-no distress Eyes-normal ENT-normal Neck-supple Lungs-clear to ausucltate bilaterally Heart-Regular,no murmur Abdomen-benign,no masses,bowel sound present Extremities-No edema Right Dorsum is swollen ,increased local temp and tender to palpate -improved Right hip movement is not so painful Has some tenderness over Greater trochanteric area Neuro-AAOx3 Lab data as noted below. ASSESSMENT & PLAN: DIARRHEA Has had 2 courses of antibiotic as an OP At risk for C diff- stool-positive Will start Vancomycin Diarrhea is controlled ACUTE KIDNEY INJURY Likely secondary to dehydration CKD III with recent baseline creatinine 1.6 - 1.9. Serum creatinine now 2.7. Avoid Nephrotoxic agents IVF and monitor DM TYPE II-uncontrolled Fluctuating blood sugars due to current illness. Check Hgb A1C-9. Lantus / NovoLog during hospital stay. SSI CAT BITE RIGHT HAND Cat bite a few weeks ago, now on second course of antibiotics. Persistent swelling dorsum of right hand. X-ray does not show any Osteo Fluid collection suspicious for an Abscess Ortho consulted for possible I&D -appreciate input No antibiotic yet-has had 2 course as an OP IV Doxycycline started yesterday GI BLEEDING Most likely due to colitis. Colonoscopy last year reportedly normal. Follow H/H. RLE PAIN Patient experiencing severe right lower extremity pain- suspect sciatica. Check plain films lumbar spine. Check US to r/o DVT.-no DVT Pain seems to be Musculoskeletal HYPERTENSION Continue metoprolol with hold parameters. SLEEP APNEA Intolerant of CPAP. VTE PROPHYLAXIS No anticoagulants due to GI bleeding. SCD's. Ambulate. RESUSCITATION STATUS-Level 1 DISPOSITION Admit to Med-Surg Unit. Expected discharge to home. Family Medicine follow-up with Dr. Freitas. Vital Signs: Date Time Temp Pulse Resp B/P Pulse Ox O2 Delivery O2 Flow Rate FiO2 08/31/16 07:59 36.6 71 16 110/52 95 Room Air 08/31/16 07:58 95 Room Air 08/30/16 23:58 Room Air 08/30/16 23:39 36.4 66 18 121/81 100 Room Air 08/30/16 19:25 100 Room Air 08/30/16 16:02 36.9 73 18 116/70 100 Room Air Lab Results: Results Past 24 Hours Test 08/30/16 12:06 08/30/16 16:52 08/30/16 20:45 08/31/16 05:53 Range/Units Bedside Glucose 103 103 107 96 70-90 mg/dl Test 08/31/16 10:09 Range/Units Bedside Glucose 98 70-90 mg/dl
[2016-08-31 12:18] LABS: HEMATOCRIT 29.8 % (37-47); MEAN CELL VOLUME 89.2 fL (80-100); MEAN CORPUSCULAR HGB CONC 32.6 g/dl (32-36); MEAN PLATELET VOLUME 9.9 fL (7.4-10.4); PLATELET COUNT 283 K/uL (130-400); RED BLOOD COUNT 3.34 M/uL (4.2-5.4); WHITE BLOOD COUNT 8.14 K/uL (4.8-10.8)
[2016-08-31] MEDS: LOSARTAN POTASSIUM 50 MG TAB PO SCH (12:33)
[2016-08-31] MEDS: ASPIRIN 81 MG ECTAB PO SCH (12:34)
[2016-08-31] MEDS: TRAMADOL HCL 50 MG TAB PO PRN ×2 (12:34→21:39)
[2016-08-31] MEDS: FENOFIBRATE 145 MG TAB PO SCH (12:34)
[2016-08-31 12:52] LABS: BUN/CREATININE RATIO 17.8 (10-20); CALCIUM 9.3 mg/dl (8.5-10.1); CREATININE 2.3 mg/dl (0.60-1.20); POTASSIUM 4.2 mmol/L (3.5-5.1)
[2016-08-31] MEDS ORDERED: ATROPINE SULFATE 0.1 MG/ML 5ML SYR IV PRN (15:15)
[2016-08-31] MEDS ORDERED: FENTANYL CITRATE INJ 50 MCG/1 ML 2 ML VIAL IV PRN (15:15)
[2016-08-31] MEDS ORDERED: EpHEDrine SULFATE INJ 50 MG/ML AMP IV PRN (15:15)
[2016-08-31] MEDS ORDERED: VANCOMYCIN 1GM/270ML NSS ONE (15:15)
--- NOTE | 2016-08-31 15:29 | History & Physical Bridge Note ---
H&P Re-Evaluation Bridge Note: I have examined the patient, reviewed the History & Physical and in the interval since the performance of the History & Physical I have noted the following changes of clinical significance: No changes noted
[2016-08-31] MEDS ORDERED: FENTANYL CITRATE INJ 50 MCG/1 ML 2 ML VIAL ONE (15:38)
[2016-08-31] MEDS ORDERED: ONDANSETRON INJ 2 MG/ML 2 ML VIAL ONE (15:38)
[2016-08-31] MEDS ORDERED: LIDOCAINE HCL 2% 2 ML VIAL (20MG/ML) ONE (15:38)
[2016-08-31] MEDS ORDERED: MIDAZOLAM HCL 1 MG/ML 2ML VIAL ONE (15:38)
[2016-08-31] MEDS ORDERED: PROPOFOL IV EMULSION 10 MG/ML 20 ML VIAL IV ONE (15:38)
[2016-08-31] MEDS ORDERED: DEXAMETHASONE SOD INJ 4 MG/ML VIAL ONE (15:38)
[2016-08-31] MEDS ORDERED: BACITRACIN 50000 UNIT VIAL ONE (16:07)
[2016-08-31] MEDS ORDERED: BUPIVACAINE/EPINEPHRINE 0.5% MPF 1:200,000 30 ML VIAL ONE (16:10)
--- NOTE | 2016-08-31 17:21 | ORTHOPEDIC CONSULTATION ---
DATE OF CONSULTATION: 08/31/2016 CHIEF COMPLAINT: Right hand swelling. HISTORY OF PRESENT ILLNESS: The patient is a 55-year-old female who had sustained a cat bite approximately 6 weeks ago. A week or so after the initial injury, she started having increasing pain and swelling over the hand. She was seen and evaluated at an outside emergency room where she was given antibiotics. She continued to have pain and swelling, no drainage. Antibiotics were changed and over time the swelling and erythema went down to the point where it was essentially normal. Over the last week or so; however, she has been having increasing symptoms, increasing swelling over the dorsum of the hand. No open wounds, no drainage, only minimal pain and some mild erythema in that region, but she has had persistent swelling. She had developed a significant course of diarrhea, subsequently found to have C. difficile. She is currently admitted to the hospital for treatment of the diarrhea and some other medical concerns. Currently complaining of swelling over the dorsum of the hand and some mild pain. PAST MEDICAL HISTORY: Diabetes type 2, diabetic neuropathy, chronic kidney disease, stage 3, dyslipidemia, hypertension, sleep apnea. PAST SURGICAL HISTORY: Tonsillectomy, tubal ligation, colonoscopy. FAMILY HISTORY: Coronary artery disease, COPD, rheumatoid arthritis, diabetes. SOCIAL HISTORY: Former smoker, quit approximately 18 months ago. ALLERGIES: AMOXICILLIN, CLAVULANIC ACID, LISINOPRIL. MEDICATIONS: Amitriptyline, aspirin, Lipitor, vitamin D, Cipro, Voltaren, Tricor, Lasix, Novolin, Victoza, Cozaar, magnesium, Lopressor, probiotic, [place], Tramadol. REVIEW OF SYSTEMS: Negative except for above. PHYSICAL EXAMINATION: VITAL SIGNS: Afebrile. Vital signs stable. GENERAL: Alert and oriented x3 in no acute distress. Mood and affect normal. She is pleasant and cooperative with examination. HEENT: Atraumatic. CHEST: Clear. CARDIOVASCULAR: Regular rhythm. ABDOMEN: Soft. EXTREMITIES: Examination of right upper extremity, 2+ right radial pulse. Light touch sensation and motor function in the median, ulnar and radial nerve distributions is intact. She has some swelling over the dorsum of the hand centered around the region of the fourth metacarpal extends back to the region of the fifth metacarpal slightly towards the third. Region has softness to it but no true fluctuance. There are no open wounds. She has normal range of motion of the hand and fingers. She is able to flex and extend the hand without pain. She has no tenderness to palpation along the extensor tendons proximally or distally. Contralateral hand examination is unremarkable. IMAGING: Ultrasound demonstrated a complex fluid collection over the dorsum of the hand that they felt was not amenable to ultrasound-guided aspiration. X-ray shows some soft tissue swelling. ASSESSMENT: Right hand 6 weeks status post cat bite with a complex fluid collection concerning for abscess. PLAN: Given her failure of the nonoperative management with p.o. antibiotics and the fluid collection seen on the ultrasound, we have recommended open irrigation and debridement. Risks, benefits and alternatives to surgery including but not limited to infection, DVT, pain, stiffness, need for urgent surgery, failure to relieve all symptoms, need for revision procedure, need for longer term IV antibiotics, damage to blood vessels, damage to nerves, risks of anesthesia discussed with the patient and she wished to proceed. All questions were answered.
[2016-08-31] MEDS ORDERED: OXYCODONE HCL IR 5 MG TAB (IMMEDIATE RELEASE) PO PRN (17:30)
--- NOTE | 2016-08-31 17:35 | [facility] Post Operative Brief Note ---
Immediate Operative Summary Operative Date Aug 31, 2016. Pre-Operative Diagnosis Right hand infection s/p cat bite Post-Operative Diagnosis same Procedure(s) Performed Right Hand Incision and Drainage Surgeon Dr. Daniele Urban Chicken Vaccinator Surgeon(s) Navid Wyman PA-C Estimated Blood Loss 5ML Findings large amount of granulation tissue and some mild milky fluid Specimens A. Dorsal Right Hand Tissue Drains 1 ravin Anesthesia geta Complication(s) None Disposition Recovery Room / PACU
[2016-08-31] MEDS ORDERED: SUCCINYLCHOLINE CHLORIDE 20 MG/ML 10 ML VIAL IV ONE (17:44)
--- NOTE | 2016-08-31 17:44 | Anesthesiology Progress Note ---
Anesthesia Post Op Note Date & Time Aug 31, 2016 at 17:44 Vital Signs Pain Intensity: 7.0 Vital Signs Past 12 Hours Date Time Temp Pulse Resp B/P Pulse Ox O2 Delivery O2 Flow Rate FiO2 08/31/16 11:56 36.6 69 16 135/74 97 Room Air 08/31/16 08:00 95 Room Air 08/31/16 07:59 36.6 71 16 110/52 95 Room Air 08/31/16 07:58 95 Room Air Notes Mental Status: alert / awake / arousable, participated in evaluation Pt Amnestic to Procedure: Yes Nausea / Vomiting: adequately controlled Pain: adequately controlled Airway Patency, RR, SpO2: stable & adequate BP & HR: stable & adequate Hydration State: stable & adequate Anesthetic Complications: no major complications apparent
[2016-08-31] MEDS: AMITRIPTYLINE HCL 10 MG TAB PO SCH (21:40)
[2016-08-31] MEDS: ATORVASTATIN 40 MG TAB PO SCH (21:41)
[2016-08-31] MEDS: DICLOFENAC SOD EC 75 MG TABCR PO SCH (21:41)
[2016-09-01] MEDS: LACTATED RINGER'S 1000ML 1,000 ML IV SCH ×3 (03:28→21:22)
[2016-09-01] MEDS ORDERED: VANCOMYCIN INJ 1,900 MG in SODIUM CHLORIDE 0.9% 500ML 500 ML IV SCH (03:30)
[2016-09-01] MEDS: TRAMADOL HCL 50 MG TAB PO PRN ×2 (03:46→18:26)
[2016-09-01 04:03] VITALS: BP 129/73; PULSE 72; TEMP 36.9; O2SAT 97
--- NOTE | 2016-09-01 04:56 | OPERATIVE REPORT ---
DATE OF OPERATION: 08/31/2016 PREOPERATIVE DIAGNOSIS: Right hand infection status post cat bite. POSTOPERATIVE DIAGNOSES: Same plus hypertrophic tenosynovitis from chronic infection. PROCEDURE: Irrigation and debridement of right hand and tenosynovectomy extensor tendons 3, 4, and 5. SURGEON: Dr. Urban. REGISTERED NURSE NURSERY: David Wyman PA-C who was necessary for assistance with the procedure with positioning, prepping, draping, retraction and closure. ANESTHESIA: General endotracheal anesthesia. SPECIMENS: Multiple cultures as well as tissue for analysis in a high powered field as well as tissue for analysis for permanent specimen. COMPLICATIONS: None. ESTIMATED BLOOD LOSS: 5 mL. INDICATIONS: The patient is a 55-year-old female who about 6 weeks ago sustained a cat bite to the dorsum of the right hand. About a week after that she had worsening infection in the hand, was started on p.o. antibiotics, continued to worsen, was switched to antibiotic medications and the area seemed to resolve until about a week ago she started having increasing swelling over the dorsum of the hand, not as much pain, redness and swelling, but she had persistent swelling in the dorsum of hand. Ultrasound of the region demonstrated complex fluid collection as well as cystic lesions in the region concerning for abscess. Given the chronic nature of the issue, we elected to proceed with irrigation and debridement. Risks, benefits, and alternatives of surgery including but not limited to infection, DVT, pain, stiffness, need for urgent surgery, failure to relieve all symptoms, recurrence of infection, damage to blood vessels, damage to nerves, damage to tendons were discussed with the patient and she wished to proceed. DESCRIPTION OF PROCEDURE: The patient was identified, laterality was confirmed and marked. She received a preoperative antibiotic. She was transferred to the operating room, placed in the supine position, induced general endotracheal anesthesia. A well-padded tourniquet was placed on the arm. The limb was prepped and draped in the usual sterile manner with ChloraPrep. Limb was exsanguinated utilizing gravity. I made a longitudinal incision centered over the fourth ray of the hand, sharply incising through the skin utilizing Bovie electrocautery to achieve hemostasis. She had chronic inflammatory granulation type tissue throughout the dorsum of the hand extending from about the region of the third metacarpal over to the region of the fifth metacarpal. This was excised combination sharply with scissors as well as a knife bluntly with a rongeur and curette. There was a fair amount of tenosynovitic material granulation and callus type material around the extensor tendons 3,4, and 5. I performed a complete tenosynovectomy in this region. I carried the level of debridement down to the bone of the metacarpal and this was bluntly debrided in this region with a curette as to protect the extensor tendons from anything sharp. We undermined the region of the skin to get out the entirety of the granulation tissue and the concerning tissue there is a small region that had some milky fluid that was sent for culture. Some of the tissue was sent for tissue culture as well as for permanent specimen. She had a bit of a skin tear that extended radially which we incorporated into our repair. Wound was thoroughly irrigated with bacitracin impregnated fluid. The skin was quite thin, I tried to close the subQ with interrupted 3-0 Vicryl suture and the sutures continue to pulled through, so we closed with a combination of horizontal mattress and simple nylon sutures 2-0 and 3-0. A [place] drain was placed. All needle and sponge counts were correct at the end of the procedure. The patient was transferred to the PACU in stable condition without apparent complication. I attest to the content of the Intraoperative Record and any orders documented therein. Any exceptio ns are noted below.
[2016-09-01 07:16] LABS: HEMATOCRIT 27.6 % (37-47); MEAN CELL VOLUME 88.2 fL (80-100); MEAN CORPUSCULAR HEMOGLOBIN 29.1 pg (25-34); MEAN PLATELET VOLUME 9.7 fL (7.4-10.4); PLATELET COUNT 265 K/uL (130-400); RED BLOOD COUNT 3.13 M/uL (4.2-5.4); WHITE BLOOD COUNT 10.64 K/uL (4.8-10.8)
[2016-09-01 07:21] VITALS: BP 120/74; PULSE 69; TEMP 36.8; O2SAT 100
[2016-09-01] MEDS: DOXYCYCLINE IV 100 MG in DEXTROSE 5% 100ML 100 ML IV SCH ×2 (07:57→18:17)
--- NOTE | 2016-09-01 08:35 | Orthopedic Progress Note ---
Orthopedic Progress Note Date of Service Sep 01, 2016. Subjective Post OP Day: 1 Reports: feeling well, Denies: SOB, calf pain, chest pain, light headedness, nausea / vomiting Additional Notes: FEELING WELL. NO FURTHER HAND COMPLAINTS. Objective calves soft nontender, N/V intact, capillary refill less than 2 sec., dressing C /D/I, A&O x3 FINGERS MOBILE. MILD DECREASED SENSATION 4TH FINGER. Date Time Temp Pulse Resp B/P Pulse Ox O2 Delivery O2 Flow Rate FiO2 09/01/16 07:21 36.8 69 16 120/74 100 Room Air 09/01/16 04:03 36.9 72 20 129/73 97 Room Air 09/01/16 01:00 Room Air 08/31/16 23:05 37.0 78 20 122/71 97 Room Air 08/31/16 21:23 36.9 83 18 123/63 93 Room Air 08/31/16 20:27 36.8 77 18 122/51 93 Room Air 08/31/16 19:41 36.8 78 18 120/54 98 Nasal Cannula 1.0 08/31/16 19:06 36.9 76 20 112/59 98 Nasal Cannula 1.0 08/31/16 18:10 36.2 69 16 107/50 100 Nasal Cannula 2 08/31/16 18:00 69 16 104/43 100 Nasal Cannula 2 08/31/16 17:50 72 16 106/45 100 Mask 6 08/31/16 17:41 36.0 74 16 109/51 100 Mask 6 08/31/16 16:25 100 Nasal Cannula 3.0 08/31/16 16:25 100 Nasal Cannula 3.0 08/31/16 11:56 36.6 69 16 135/74 97 Room Air Laboratory Results 24 Hours: Test 08/31/16 11:42 09/01/16 06:55 Hematocrit 29.8 % 27.6 % Hemoglobin 9.7 g/dL 9.1 g/dL Assessment & Plan Assessment: POD #1 SP I&D RIGHT HAND . Plan: CONTINUE IV VANCO CULTURES PENDING, WILL FOLLOW LIKELY DRESSING CHANGE POD 2 Will discuss RLE symptoms with Spine team. Bursitis a possibility of the lateral hip but with her sx's, it seems more radicular. Discussed with Dr Hartley and he viewed xrays. Would be better to have an MRI of the lumbar spine. Will discuss with patient. Inhouse Planning Pain Management: Oxy IR, other (VOLTAREN) DVT Prophylaxis: ASA
[2016-09-01] MEDS: INSULIN ASPART 100 UNITS/ML 3 ML PEN SC SCH ×4 (09:18→21:18)
[2016-09-01] MEDS: INSULIN GLARGINE SOLOSTAR 100 UNITS/ML 3 ML PEN SC SCH ×2 (09:18→21:17)
[2016-09-01] MEDS: FENOFIBRATE 145 MG TAB PO SCH (09:22)
[2016-09-01] MEDS: LOSARTAN POTASSIUM 50 MG TAB PO SCH (09:22)
[2016-09-01] MEDS: ASPIRIN 81 MG ECTAB PO SCH (09:23)
[2016-09-01] MEDS: RASPBERRY SYRUP 5 ML UDP PO SCH ×4 (09:23→21:19)
[2016-09-01] MEDS: METOPROLOL TARTRATE 25 MG TAB PO SCH ×2 (09:23→21:22)
[2016-09-01] MEDS: VANCOMYCIN HCL 125 MG/2.5ML SOLN PO SCH ×4 (09:28→21:19)
[2016-09-01] MEDS: HYDROCODONE/ACETAMI 10/325 TAB PO PRN (09:28)
--- NOTE | 2016-09-01 13:36 | DIAGNOSTIC IMAGING REPORT ---
MRI OF THE LUMBAR SPINE WITHOUT IV CONTRAST CLINICAL HISTORY: Low back pain. Right lower extremity radiculopathy. COMPARISON STUDY: Radiographs of lumbar spine dated 08/30/2016. TECHNIQUE: MRI of the lumbar spine is performed utilizing various T1 and T2-weighted sequences in the axial and sagittal planes. IV contrast was not administered for this examination. FINDINGS: Lumbar spine: Vertebral body height and alignment are maintained throughout the lumbar spine. Normal marrow signal intensity is preserved throughout the visualized bony structures. The transverse and spinous processes are intact as visualized. There is no evidence of spondylolysis. Intervertebral discs: There is minimal degenerative disc desiccation identified. Mild loss of height is seen at L1-L2. The remaining disc spaces are preserved. Spinal cord: The visualized spinal cord is normal in morphology and signal intensity. The conus medullaris terminates at the level of L2. The nerve roots of the cauda equina are normal in morphology. L1-L2: There is minimal posterior disc bulge. The central canal and neural foramina are widely patent. L2-L3: Unremarkable. L3-L4: Unremarkable. L4-L5: Small facet joint effusions are identified. There is no central canal stenosis or neural foraminal narrowing. L5-S1: Unremarkable. Sacrum: Visualized sacrum is normal in morphology and signal intensity. Soft tissues: There is mild fatty atrophy of the paraspinous musculature. The retroperitoneal structures are normal as visualized but incompletely assessed. IMPRESSION: 1. There is no disc herniation, central canal stenosis, or neural foraminal narrowing seen throughout the lumbar spine. 2. No destructive bony process is seen. Dictated: 09/01/2016 1:02 PM Transcribed: 09/01/2016 1:36 PM [email or web address] Electronically signed by: Albin Dior M.D. 09/01/2016 1:37 PM Dictated Date/Time: 09/01/2016 1:02 PM
[2016-09-01 15:14] VITALS: BP 146/66; PULSE 68; TEMP 37.1; O2SAT 100
--- NOTE | 2016-09-01 15:59 | Progress Note ---
Internal Med Progress Note Date of Service: Sep 01, 2016. Provider Documentation: SUBJECTIVE: The Patient was seen and examined No more Diarrhea today Complains of anterior and lateral thigh pain Right hand is better following I&D yesterday OBJECTIVE: Vital Signs-as noted below Exam: General-no distress Eyes-normal ENT-normal Neck-supple Lungs-clear to ausucltate bilaterally Heart-Regular,no murmur Abdomen-benign,no masses,bowel sound present Extremities-No edema Right Hand is bandaged Has some tenderness over Greater trochanteric area with pain lateral and anterior thigh Neuro-AAOx3 Lab data as noted below. ASSESSMENT & PLAN: DIARRHEA Has had 2 courses of antibiotic as an OP At risk for C diff- stool-positive Started on oral Vancomycin Diarrhea is controlled ACUTE KIDNEY INJURY Likely secondary to dehydration CKD III with recent baseline creatinine 1.6 - 1.9. Serum creatinine now 2.7. Avoid Nephrotoxic agents IVF and monitor Monitor PRP DM TYPE II-uncontrolled Fluctuating blood sugars due to current illness. Check Hgb A1C-9. Lantus / NovoLog during hospital stay. SSI CAT BITE RIGHT HAND Cat bite a few weeks ago, now on second course of antibiotics. Persistent swelling dorsum of right hand. X-ray does not show any Osteo Fluid collection suspicious for an Abscess Ortho consulted for possible I&D -appreciate input No antibiotic yet-has had 2 course as an OP IV Doxycycline started yesterday S/P I&D POD#1 Not much pain in right hand Started on IV vancomycin GI BLEEDING Most likely due to colitis. Colonoscopy last year reportedly normal. Follow H/H. RLE PAIN Patient experiencing severe right lower extremity pain- suspect sciatica. Check plain films lumbar spine. Check US to r/o DVT.-no DVT Pain seems to be Musculoskeletal May need further testing HYPERTENSION Continue metoprolol with hold parameters. SLEEP APNEA Intolerant of CPAP. VTE PROPHYLAXIS No anticoagulants due to GI bleeding. SCD's. Ambulate. RESUSCITATION STATUS-Level 1 DISPOSITION Admit to Med-Surg Unit. Expected discharge to home. Family Medicine follow-up with Dr. Freitas. Vital Signs: Date Time Temp Pulse Resp B/P Pulse Ox O2 Delivery O2 Flow Rate FiO2 09/01/16 15:14 37.1 68 18 146/66 100 Room Air 09/01/16 07:30 Room Air 09/01/16 07:21 36.8 69 16 120/74 100 Room Air 09/01/16 04:03 36.9 72 20 129/73 97 Room Air 09/01/16 01:00 Room Air 08/31/16 23:05 37.0 78 20 122/71 97 Room Air 08/31/16 21:23 36.9 83 18 123/63 93 Room Air 08/31/16 20:27 36.8 77 18 122/51 93 Room Air 08/31/16 19:41 36.8 78 18 120/54 98 Nasal Cannula 1.0 08/31/16 19:06 36.9 76 20 112/59 98 Nasal Cannula 1.0 08/31/16 18:10 36.2 69 16 107/50 100 Nasal Cannula 2 08/31/16 18:00 69 16 104/43 100 Nasal Cannula 2 08/31/16 17:50 72 16 106/45 100 Mask 6 08/31/16 17:41 36.0 74 16 109/51 100 Mask 6 08/31/16 16:25 100 Nasal Cannula 3.0 08/31/16 16:25 100 Nasal Cannula 3.0 Lab Results: Results Past 24 Hours Test 08/31/16 17:44 08/31/16 21:35 09/01/16 06:55 09/01/16 07:40 Range/Units Bedside Glucose 87 249 195 70-90 mg/dl White Blood Count 10.64 4.8-10.8 K/uL Red Blood Count 3.13 4.2-5.4 M/uL Hemoglobin 9.1 12.0-16.0 g/dL Hematocrit 27.6 37-47 % Mean Corpuscular Volume 88.2 80-100 fL Mean Corpuscular Hemoglobin 29.1 25-34 pg Mean Corpuscular Hemoglobin Concent 33.0 32-36 g/dl RDW Standard Deviation 48.7 36.4-46.3 fL RDW Coefficient of Variation 15.1 11.5-14.5 % Platelet Count 265 130-400 K/uL Mean Platelet Volume 9.7 7.4-10.4 fL Test 09/01/16 11:31 Range/Units Bedside Glucose 270 70-90 mg/dl Microbiology Results 08/31/16 Gram Stain - Final, Resulted 08/31/16 Bacterial Culture - Preliminary, Resulted NO GROWTH TO DATE.
[2016-09-01 18:59] VITALS: BP 130/59; PULSE 79; TEMP 37.2; O2SAT 100
[2016-09-01] MEDS: ATORVASTATIN 40 MG TAB PO SCH (21:20)
[2016-09-01] MEDS: AMITRIPTYLINE HCL 10 MG TAB PO SCH (21:20)
[2016-09-01 23:15] VITALS: BP 115/60; PULSE 68; O2SAT 99
[2016-09-02 00:52] VITALS: TEMP 36.4
[2016-09-02] MEDS: DOXYCYCLINE IV 100 MG in DEXTROSE 5% 100ML 100 ML IV SCH ×2 (05:47→17:43)
[2016-09-02 06:35] LABS: HEMATOCRIT 26.6 % (37-47); MEAN CELL VOLUME 88.4 fL (80-100); MEAN CORPUSCULAR HEMOGLOBIN 29.2 pg (25-34); MEAN CORPUSCULAR HGB CONC 33.1 g/dl (32-36); MEAN PLATELET VOLUME 9.8 fL (7.4-10.4); PLATELET COUNT 256 K/uL (130-400); RED BLOOD COUNT 3.01 M/uL (4.2-5.4); WHITE BLOOD COUNT 10.41 K/uL (4.8-10.8)
[2016-09-02] MEDS: TRAMADOL HCL 50 MG TAB PO PRN ×2 (07:43→13:56)
[2016-09-02 07:47] VITALS: BP 124/72; PULSE 68; TEMP 36.6; O2SAT 100
--- NOTE | 2016-09-02 08:34 | Orthopedic Progress Note ---
Orthopedic Progress Note Date of Service Sep 02, 2016. Subjective Post OP Day: 2 Reports: feeling well, Denies: SOB, calf pain, chest pain, light headedness, nausea / vomiting Objective calves soft nontender, N/V intact, dressing C/D/I, incision C/D/I, A&O x3 Date Time Temp Pulse Resp B/P Pulse Ox O2 Delivery O2 Flow Rate FiO2 09/02/16 07:47 36.6 68 16 124/72 100 Room Air 09/02/16 00:52 36.4 09/02/16 00:00 Room Air 09/01/16 23:15 68 20 115/60 99 Room Air 09/01/16 18:59 37.2 79 18 130/59 100 Room Air 09/01/16 16:00 Room Air 09/01/16 15:14 37.1 68 18 146/66 100 Room Air Laboratory Results 24 Hours: Test 09/02/16 06:00 Hematocrit 26.6 % Hemoglobin 8.8 g/dL Additional Notes: GRAM STAIN Final 09/01/16-0902 RESULT RARE WBCs SEEN RARE EPITHELIAL CELLS NO ORGANISMS SEEN OR AER/RACHEL CULT Preliminary 09/01/16-1329 NO GROWTH TO DATE. Assessment & Plan Assessment: POD #2 SP I&D RIGHT HAND . Plan: CONTINUE IV VANCO CULTURES PENDING, WILL FOLLOW CONT DAILY DRESSING CHANGES Will discuss RLE symptoms with Spine team. Bursitis a possibility of the lateral hip but with her sx's, it seems more radicular. Discussed with Dr Hartley and he viewed xrays. Would be better to have an MRI of the lumbar spine. Will discuss with patient. Inhouse Planning Pain Management: Oxy IR, other (VOLTAREN) DVT Prophylaxis: ASA
[2016-09-02] MEDS: INSULIN GLARGINE SOLOSTAR 100 UNITS/ML 3 ML PEN SC SCH ×2 (09:00→21:52)
[2016-09-02] MEDS: INSULIN ASPART 100 UNITS/ML 3 ML PEN SC SCH ×4 (09:09→21:00)
[2016-09-02] MEDS: LOSARTAN POTASSIUM 50 MG TAB PO SCH (09:12)
[2016-09-02] MEDS: RASPBERRY SYRUP 5 ML UDP PO SCH ×4 (09:13→21:43)
[2016-09-02] MEDS: ASPIRIN 81 MG ECTAB PO SCH (09:13)
[2016-09-02] MEDS: FENOFIBRATE 145 MG TAB PO SCH (09:13)
[2016-09-02] MEDS: METOPROLOL TARTRATE 25 MG TAB PO SCH ×2 (09:13→21:47)
[2016-09-02] MEDS: VANCOMYCIN HCL 125 MG/2.5ML SOLN PO SCH ×4 (09:15→21:44)
[2016-09-02] MEDS: LACTATED RINGER'S 1000ML 1,000 ML IV SCH ×2 (09:16→19:13)
[2016-09-02] MEDS: LOPERAMIDE HCL 2 MG CAP PO PRN (13:27)
[2016-09-02 15:02] VITALS: BP 116/72; PULSE 71; TEMP 36.9; O2SAT 97
[2016-09-02] MEDS: AMITRIPTYLINE HCL 10 MG TAB PO SCH (21:46)
[2016-09-02] MEDS: ATORVASTATIN 40 MG TAB PO SCH (21:47)
[2016-09-02] MEDS: DICLOFENAC SOD EC 75 MG TABCR PO SCH (21:48)
[2016-09-02 23:30] VITALS: BP 121/64; PULSE 67; TEMP 37; O2SAT 100
[2016-09-03] MEDS: LACTATED RINGER'S 1000ML 1,000 ML IV SCH ×2 (04:24→15:48)
[2016-09-03] MEDS: DOXYCYCLINE IV 100 MG in DEXTROSE 5% 100ML 100 ML IV SCH (05:23)
[2016-09-03 07:09] LABS: HEMATOCRIT 28.9 % (37-47); MEAN CELL VOLUME 88.1 fL (80-100); MEAN CORPUSCULAR HEMOGLOBIN 28.4 pg (25-34); MEAN CORPUSCULAR HGB CONC 32.2 g/dl (32-36); MEAN PLATELET VOLUME 9.4 fL (7.4-10.4); PLATELET COUNT 317 K/uL (130-400); RED BLOOD COUNT 3.28 M/uL (4.2-5.4); WHITE BLOOD COUNT 10.02 K/uL (4.8-10.8)
--- NOTE | 2016-09-03 07:37 | Orthopedic Progress Note ---
Orthopedic Progress Note Date of Service Sep 03, 2016. Subjective Post OP Day: 3 Reports: feeling well, Denies: SOB, calf pain, chest pain, complaints, light headedness, nausea / vomiting Additional Notes: Patient is having pain on her left arm on the volar aspect. There is some redness from where the IV was inserted. She denies fevers, chills, nausea, or vomiting. Objective calves soft nontender, capillary refill less than 2 sec., dressing C/D/I, A&O x3 Right hand - dressing is C/D/I she is able to move all fingers. She has some numbness over the ring finger but has good strength when compared to the other hand. She denied any hip pain today Left Forearm - there is redness from the distal ulna to the elbow. Redness over where the IV site was on the volar aspect of her forearm. The dorsum has two small areas of redness around where the IV site was. Date Time Temp Pulse Resp B/P Pulse Ox O2 Delivery O2 Flow Rate FiO2 09/02/16 23:42 Room Air 09/02/16 23:30 37.0 67 20 121/64 100 Room Air 09/02/16 20:08 Room Air 09/02/16 15:45 Room Air 09/02/16 15:02 36.9 71 16 116/72 97 Room Air 09/02/16 07:47 36.6 68 16 124/72 100 Room Air 09/02/16 07:45 Room Air Laboratory Results 24 Hours: Test 09/03/16 06:51 Hematocrit 28.9 % Hemoglobin 9.3 g/dL Assessment & Plan Assessment: POD #3 SP I&D RIGHT HAND . Plan: CONTINUE IV VANCO CULTURES PENDING, WILL FOLLOW - preliminary show no growth CONT DAILY DRESSING CHANGES Notable redness of left forearm on the volar aspect. IV nurses in asked about changing to opposite side but this would be the surgical side. Unsure if patient will be going home with PICC line. Dr. Forrest will be in later to assess and discuss with the patient. Inhouse Planning Pain Management: Oxy IR, other (VOLTAREN) DVT Prophylaxis: ASA Discharge Planning Discharge Planning: uncertain
[2016-09-03 07:59] VITALS: BP 122/70; PULSE 71; TEMP 36.8; O2SAT 98
[2016-09-03 08:31] VITALS: O2SAT 98
[2016-09-03] MEDS: INSULIN ASPART 100 UNITS/ML 3 ML PEN SC SCH ×5 (09:31→21:23)
[2016-09-03] MEDS: VANCOMYCIN HCL 125 MG/2.5ML SOLN PO SCH ×2 (09:32→12:56)
[2016-09-03] MEDS: INSULIN GLARGINE SOLOSTAR 100 UNITS/ML 3 ML PEN SC SCH ×2 (09:32→21:42)
[2016-09-03] MEDS: METOPROLOL TARTRATE 25 MG TAB PO SCH ×2 (09:32→21:15)
[2016-09-03] MEDS: RASPBERRY SYRUP 5 ML UDP PO SCH ×2 (09:32→12:56)
[2016-09-03] MEDS: ASPIRIN 81 MG ECTAB PO SCH (09:33)
[2016-09-03] MEDS: LOSARTAN POTASSIUM 50 MG TAB PO SCH (09:33)
[2016-09-03] MEDS: FENOFIBRATE 145 MG TAB PO SCH (09:33)
[2016-09-03] MEDS: TRAMADOL HCL 50 MG TAB PO PRN (09:38)
--- NOTE | 2016-09-03 10:05 | Anesthesiology Progress Note ---
Anesthesia Post Op Note Date & Time Sep 03, 2016 at 10:05 Vital Signs Pain Intensity: 7.0 Vital Signs Past 12 Hours Date Time Temp Pulse Resp B/P Pulse Ox O2 Delivery O2 Flow Rate FiO2 09/03/16 08:31 98 Room Air 09/03/16 08:00 Room Air 09/03/16 07:59 36.8 71 16 122/70 98 Room Air 09/02/16 23:42 Room Air 09/02/16 23:30 37.0 67 20 121/64 100 Room Air Notes Mental Status: alert / awake / arousable, participated in evaluation Pt Amnestic to Procedure: Yes Nausea / Vomiting: adequately controlled Pain: adequately controlled Airway Patency, RR, SpO2: stable & adequate BP & HR: stable & adequate Hydration State: stable & adequate Anesthetic Complications: no major complications apparent
--- NOTE | 2016-09-03 14:37 | Progress Note ---
Internal Med Progress Note Date of Service: Sep 03, 2016. Provider Documentation: SUBJECTIVE: The Patient was seen and examined No more Diarrhea today Right hand is better following I&D Denies any more anterior thigh pain OBJECTIVE: Vital Signs-as noted below Exam: General-no distress Eyes-normal ENT-normal Neck-supple Lungs-clear to ausucltate bilaterally Heart-Regular,no murmur Abdomen-benign,no masses,bowel sound present Extremities-No edema Right Hand is bandaged Has some tenderness over Greater trochanteric area with pain lateral and anterior thigh Neuro-AAOx3 Lab data as noted below. ASSESSMENT & PLAN: CAT BITE RIGHT HAND-Abscess right dorsum Cat bite a few weeks ago, now on second course of antibiotics. Persistent swelling dorsum of right hand. X-ray does not show any Osteo Fluid collection suspicious for an Abscess Ortho consulted for possible I&D -appreciate input No antibiotic yet-has had 2 course as an OP IV Doxycycline started yesterday S/P I&D Not much pain in right hand Started on IV vancomycin Culture -negative so far Likely to go home on Oral Doxy DIARRHEA Has had 2 courses of antibiotic as an OP At risk for C diff- stool-positive Started on oral Vancomycin Diarrhea is controlled with Imodium ACUTE KIDNEY INJURY Likely secondary to dehydration CKD III with recent baseline creatinine 1.6 - 1.9. Serum creatinine now 2.7. Avoid Nephrotoxic agents IVF and monitor Monitor PRP Repeat PRP and Mag DM TYPE II-uncontrolled Fluctuating blood sugars due to current illness. Check Hgb A1C-9. Lantus / NovoLog during hospital stay. SSI GI BLEEDING Most likely due to colitis. Colonoscopy last year reportedly normal. Follow H/H. RLE PAIN Patient experiencing severe right lower extremity pain- suspect sciatica. Check plain films lumbar spine. Check US to r/o DVT.-no DVT Pain seems to be Musculoskeletal MRI of the LS Spine-unremarkable HYPERTENSION Continue metoprolol with hold parameters. SLEEP APNEA Intolerant of CPAP. VTE PROPHYLAXIS No anticoagulants due to GI bleeding. SCD's. Ambulate. RESUSCITATION STATUS-Level 1 DISPOSITION Admit to Med-Surg Unit. Expected discharge to home. Family Medicine follow-up with Dr. Freitas. Likely discharge tomorrow Vital Signs: Date Time Temp Pulse Resp B/P Pulse Ox O2 Delivery O2 Flow Rate FiO2 09/03/16 08:31 98 Room Air 09/03/16 08:00 Room Air 09/03/16 07:59 36.8 71 16 122/70 98 Room Air 09/02/16 23:42 Room Air 09/02/16 23:30 37.0 67 20 121/64 100 Room Air 09/02/16 20:08 Room Air 09/02/16 15:45 Room Air 09/02/16 15:02 36.9 71 16 116/72 97 Room Air Lab Results: Results Past 24 Hours Test 09/02/16 17:35 09/02/16 20:52 09/03/16 06:51 09/03/16 07:48 Range/Units Bedside Glucose 90 116 111 70-90 mg/dl White Blood Count 10.02 4.8-10.8 K/uL Red Blood Count 3.28 4.2-5.4 M/uL Hemoglobin 9.3 12.0-16.0 g/dL Hematocrit 28.9 37-47 % Mean Corpuscular Volume 88.1 80-100 fL Mean Corpuscular Hemoglobin 28.4 25-34 pg Mean Corpuscular Hemoglobin Concent 32.2 32-36 g/dl RDW Standard Deviation 49.2 36.4-46.3 fL RDW Coefficient of Variation 15.2 11.5-14.5 % Platelet Count 317 130-400 K/uL Mean Platelet Volume 9.4 7.4-10.4 fL Test 09/03/16 11:20 Range/Units Bedside Glucose 177 70-90 mg/dl
[2016-09-03] MEDS ORDERED: LEVOFLOXACIN CONSULT ACTIVE PRN (15:30)
--- NOTE | 2016-09-03 15:33 | Medical Consult ---
Consultation Date of Consultation: Sep 03, 2016. Attending Physician: Tanner Forrest M.D. Reason for Consultation: Abx management for cat bite History of Present Illness Patient is a 55 yo female who initially presented to the ED with concerns of persistent swelling in the dorsal right hand following a domestic cat bite multiple weeks ago. The patient thinks that she was initially given antibiotics but was unsure of which ones. She had this therapy for about 2 weeks with some improvement but continued swelling. She also developed diarrhea which continued to worsen over multiple days [employer]. She also had fever at home. The patient also has history of taking care of a family member with C. Diff colitis. She has no personal history of prior C. Diff. She has no history of MRSA that she knows of. Since admission, she had a positive C. Diff toxin and I & D of the right dorsal hand. No purulence was noted on the operative report. Hand X-Ray showed dorsal soft tissue swelling. Patient also had an MRI of the brain which showed no destructive bony process, disc herniation, central canal stenosis or foraminal narrowing through the lumbar spine. WBC count was 12.85 on admission. Creatinine was 2.3 on 08/31. Deep right hand culture is showing no growth to date with no organisms seen on gram stain. I did also speak to Tez Mac PA-C regarding this patient. Past Medical/Surgical History Medical Problems: (1) Charcot's joint of foot due to diabetes (2) Chronic kidney disease (CKD), stage III (moderate) (3) Diabetes mellitus, type 2 (4) Diabetic neuropathy (5) Dyslipidemia (6) Hypertension (7) Osteoarthritis (8) Sleep apnea Surgical Problems: (1) S/P cholecystectomy (2) S/P tubal ligation (3) Status post colonoscopy (4) Status post tonsillectomy (5) Status post tubal ligation Family History COPD (chronic obstructive pulmonary disease) FATHER Diabetes mellitus SON Heart disease FATHER Rheumatoid arthritis MOTHER Stroke SISTER Aunt with C. Diff Social History Smoking Status: Former Smoker Alcohol Use: none Marital Status: Occupation Status: unemployed Allergies Coded Allergies: Amoxicillin (Verified Allergy, Intermediate, HIVES, 08/29/16) Clavulanic Acid (Verified Allergy, Intermediate, HIVES, 08/29/16) Lisinopril (Verified Adverse Reaction, Unknown, NAUSEA/VOMITING, 04/04/16) Home Medications Reported Home Medications Medications Dose Route/Sig Max Daily Dose Days Date Category Dose Instructions Probiotic (Probiotic Product) 1 Cap Cap 1 Cap DAILYBB 08/29/16 Reported Cipro (Ciprofloxacin Hcl) 500 Mg Tab 500 Mg PO Q12 08/29/16 Reported Victoza (Liraglutide) 18 Mg/3 Ml Inj 1.8 Units SQ DAILY 08/29/16 Reported Novolin N (Insulin Human NPH) 100 Units/Ml Susp 60 Units SQ QPM 08/29/16 Reported Novolin R Relion (Insulin Regular (Human)) 100 Unit/Ml Inj 1 Dose SC TID 03/30/16 Reported PER SLIDING SCALE Novolin N (Insulin Human NPH) 100 Units/Ml Susp 100 Units SC QAM 03/30/16 Reported Eldridge 10MG/325MG (Acetaminophen/Hydrocodone Bitart) Tab 1 Tab PO TID PRN 30 03/30/16 Reported PRN PAIN Ultram (Tramadol HCl) 50 Mg Tab 50 Mg PO Q6H PRN 03/30/16 Reported Lopressor (Metoprolol Tartrate) 25 Mg Tab 1 Tab PO BID 90 03/30/16 Reported Cozaar (Losartan Potassium) 50 Mg Tab 50 Mg PO QAM 03/30/16 Reported Lasix (Furosemide) 40 Mg Tab 40 Mg PO ON HOLD 03/30/16 Reported TAKES 2 TABS ON SAT AND THURSDAYS. Elavil (Amitriptyline Hcl) 10 Mg Tab 4 Tab PO HS 03/30/16 Reported Voltaren (Diclofenac Sodium) 75 Mg Tabcr 75 Mg PO Q OTHER PM 03/30/16 Reported WITH FOOD Lipitor (Atorvastatin Calcium) 80 Mg Tab 80 Mg PO HS 03/30/16 Reported Tricor (Fenofibrate) 145 Mg Tab 145 Mg PO QAM 03/30/16 Reported Magnesium (Magnesium Oxide (Mg Supplement) 500 Mg Tab 1 Tab PO QAM 03/30/16 Reported Aspirin Chewable (Aspirin) 81 Mg Chew 81 Mg PO QAM 03/30/16 Reported Vitamin D3 (Cholecalciferol) 5,000 Unit Cap 1 Cap PO QAM 03/30/16 Reported Current Inpatient Medications Current Inpatient Medications Medications (Trade) Dose Ordered Sig/Olivia Route Start Time Stop Time Status Last Admin Dose Admin Amitriptyline HCl (Elavil Tab) 40 mg HS PO 08/30/16 21:00 09/29/16 20:59 09/02/16 21:46 40 MG Aspirin (Ecotrin Tab) 81 mg QAM PO 08/30/16 09:00 09/29/16 08:59 09/03/16 09:33 81 MG Atorvastatin Calcium (Lipitor Tab) 80 mg HS PO 08/30/16 21:00 09/29/16 20:59 09/02/16 21:47 80 MG Diclofenac Sodium (Voltaren Tab) 75 mg Q2D@2100 PO 08/31/16 21:00 09/30/16 20:59 09/02/16 21:48 75 MG Fenofibrate (Tricor Tab) 145 mg QAM PO 08/30/16 09:00 09/29/16 08:59 09/03/16 09:33 145 MG Acetaminophen/ Hydrocodone Bitart (Eldridge 10/325 Tab) 1 tab TID PRN PO 08/29/16 23:30 09/12/16 23:29 09/01/16 09:28 1 TAB Losartan Potassium (coZAAR TAB) 50 mg QAM PO 08/30/16 09:00 09/29/16 08:59 09/03/16 09:33 50 MG Metoprolol Tartrate (Lopressor Tab) 25 mg BID PO 08/30/16 09:00 09/29/16 08:59 09/03/16 09:32 25 MG Tramadol HCl 50 mg 50 mg Q6H PRN PO 08/29/16 23:30 09/28/16 23:29 09/03/16 09:38 50 MG Lactated Ringer's (Lr 1000ml) 1,000 ml @ 100 mls/hr Q10H IV 08/30/16 01:45 09/29/16 01:44 09/03/16 04:24 100 MLS/HR Insulin Glargine (Lantus Solostar Pen) 40 unit BID SC 08/30/16 09:00 09/29/16 08:59 09/03/16 09:32 40 UNIT Insulin Aspart (novoLOG ASPART) SLIDING SCALE G... ACHS SC 08/30/16 08:00 09/29/16 07:59 09/03/16 13:04 3 UNITS Glucose (Glucose 40% Gel) 15-30 GRAMS 15 GRAMS... UD PRN PO 08/30/16 02:15 09/29/16 02:14 Glucose (Glucose Chew Tab) 4-8 Tablets 4 Tabl... UD PRN PO 08/30/16 02:15 09/29/16 02:14 Dextrose (Dextrose 50% 50ML Syringe) 25-50ML OF 50% DW IV FOR... UD PRN IV 08/30/16 02:15 09/29/16 02:14 Glucagon (Glucagon Inj) 1 mg UD PRN SQ 08/30/16 02:15 09/29/16 02:14 Vancomycin HCl (Vancomycin Oral Soln) 125 mg QID PO 08/30/16 17:00 09/13/16 16:59 09/03/16 12:56 125 MG Raspberry 5 ml 5 ml QID PO 08/30/16 17:00 09/13/16 16:59 09/03/16 12:56 5 ML Doxycycline Hyclate/Dextrose (Vibramycin IV/ D5 100ml) 110 ml @ 50 mls/hr Q12@0600,1800 IV 08/31/16 06:00 09/09/16 17:59 09/03/16 05:23 50 MLS/HR Oxycodone HCl (Roxicodone Immediate Rel Tab) 1-2 TABS FOR PAIN 1 TABLET ... Q4H PRN PO 08/31/16 17:30 09/14/16 17:29 09/01/16 21:26 10 MG Loperamide HCl (Imodium Cap) 2 mg Q6H PRN PO 09/02/16 12:30 10/02/16 12:29 09/02/16 13:27 2 MG Review of Systems Constitutional: + fever ([employer]- now resolved) Eyes: No worsening of vision ENT: No hearing loss Respiratory: No cough, No shortness of breath Cardiovascular: No chest pain Abdomen: + diarrhea, + nausea, No pain Musculoskeletal: + joint pain (right hand), + swelling (right hand) Genitourinary - Female: No dysuria Integumentary: + color change (erythema of right dorsal hand), No itch, No rash Physical Exam Date Time Temp Pulse Resp B/P Pulse Ox O2 Delivery O2 Flow Rate FiO2 09/03/16 08:31 98 Room Air 09/03/16 08:00 Room Air 09/03/16 07:59 36.8 71 16 122/70 98 Room Air 09/02/16 23:42 Room Air 09/02/16 23:30 37.0 67 20 121/64 100 Room Air 09/02/16 20:08 Room Air 09/02/16 15:45 Room Air General Appearance: no apparent distress, + obese Head: normocephalic, atraumatic Eyes: normal inspection, sclerae normal ENT: hearing grossly normal Neck: supple, trachea midline Respiratory/Chest: no respiratory distress, no accessory muscle use Cardiovascular: + pertinent finding (regular rate) Back: normal inspection Extremities/Musculoskelatal: + pertinent finding (right hand with dorsal edema , 4th & 5th finger edema noted. Some mild erythema around wound especially distal portion. Small amount of serous drainage on bandage) Neurologic/Psych: alert, normal mood/affect Skin: warm/dry, no rash, + pertinent finding (as above) Laboratory Results RIGHT HAND 3 VIEWS HISTORY: cat bite, r/o osteomyelitis Right COMPARISON: None. FINDINGS: There is no fracture or dislocation. Dorsal soft tissue swelling. No underlying bony destruction. Mild osteoarthritis at the DIP, PIP, and radiocarpal joints. No radiopaque foreign bodies. IMPRESSION: Dorsal soft tissue swelling. No evidence for osteomyelitis. MRI OF THE LUMBAR SPINE WITHOUT IV CONTRAST CLINICAL HISTORY: Low back pain. Right lower extremity radiculopathy. COMPARISON STUDY: Radiographs of lumbar spine dated 08/30/2016. TECHNIQUE: MRI of the lumbar spine is performed utilizing various T1 and T2-weighted sequences in the axial and sagittal planes. IV contrast was not administered for this examination. FINDINGS: Lumbar spine: Vertebral body height and alignment are maintained throughout the lumbar spine. Normal marrow signal intensity is preserved throughout the visualized bony structures. The transverse and spinous processes are intact as visualized. There is no evidence of spondylolysis. Intervertebral discs: There is minimal degenerative disc desiccation identified. Mild loss of height is seen at L1-L2. The remaining disc spaces are preserved. Spinal cord: The visualized spinal cord is normal in morphology and signal intensity. The conus medullaris terminates at the level of L2. The nerve roots of the cauda equina are normal in morphology. L1-L2: There is minimal posterior disc bulge. The central canal and neural foramina are widely patent. L2-L3: Unremarkable. L3-L4: Unremarkable. L4-L5: Small facet joint effusions are identified. There is no central canal stenosis or neural foraminal narrowing. L5-S1: Unremarkable. Sacrum: Visualized sacrum is normal in morphology and signal intensity. Soft tissues: There is mild fatty atrophy of the paraspinous musculature. The retroperitoneal structures are normal as visualized but incompletely assessed. IMPRESSION: 1. There is no disc herniation, central canal stenosis, or neural foraminal narrowing seen throughout the lumbar spine. 2. No destructive bony process is seen. Last 24 Hours Test 09/02/16 17:35 09/02/16 20:52 09/03/16 06:51 09/03/16 07:48 Bedside Glucose 90 mg/dl 116 mg/dl 111 mg/dl White Blood Count 10.02 K/uL Red Blood Count 3.28 M/uL Hemoglobin 9.3 g/dL Hematocrit 28.9 % Mean Corpuscular Volume 88.1 fL Mean Corpuscular Hemoglobin 28.4 pg Mean Corpuscular Hemoglobin Concent 32.2 g/dl RDW Standard Deviation 49.2 fL RDW Coefficient of Variation 15.2 % Platelet Count 317 K/uL Mean Platelet Volume 9.4 fL Test 09/03/16 11:20 Bedside Glucose 177 mg/dl Assessment & Plan Patient with right dorsal hand infection following domestic cat bite along with new onset C. Diff colitis. She is currently on IV Doxycycline and PO Vancomycin. She does have some continued erythema around the dorsal right hand wound. Because this patient is PCN allergic and has C. Diff, recommend continued therapy with PO Flagyl (to cover anaerobic bacteria and 1st episode of C. Diff) along with PO Levaquin (to cover Gram negatives and MSSA, strep). Patient will need close follow up after discharge. Will change abx therapy this evening to see how the patient tolerates this combination. She likely will need at least 1-2 more weeks of therapy pending further improvement. Plan: 1. D/C PO Vancomycin and IV Doxy 2. Start PO Flagyl and Levaquin PROVIDER ADDENDUM: Patient examined and reviewed with Ms. Mack. Agree with above assessment.
[2016-09-03] MEDS ORDERED: LEVOFLOXACIN 750 MG TAB PO SCH (16:00)
[2016-09-03 16:02] VITALS: BP 147/81; PULSE 75; TEMP 36.8; O2SAT 97
[2016-09-03] MEDS: ATORVASTATIN 40 MG TAB PO SCH (21:14)
[2016-09-03] MEDS: AMITRIPTYLINE HCL 10 MG TAB PO SCH (21:14)
[2016-09-03] MEDS: METRONIDAZOLE 500 MG TAB PO SCH (21:15)
[2016-09-03 23:10] VITALS: BP 132/74; PULSE 62; TEMP 36.5; O2SAT 96
[2016-09-04] MEDS: TRAMADOL HCL 50 MG TAB PO PRN (00:18)
[2016-09-04] MEDS: LACTATED RINGER'S 1000ML 1,000 ML IV SCH ×2 (01:51→11:39)
[2016-09-04 05:47] LABS: HEMATOCRIT 27.6 % (37-47); MEAN CORPUSCULAR HEMOGLOBIN 28.4 pg (25-34); MEAN CORPUSCULAR HGB CONC 31.9 g/dl (32-36); MEAN PLATELET VOLUME 9.5 fL (7.4-10.4); PLATELET COUNT 269 K/uL (130-400); WHITE BLOOD COUNT 8.27 K/uL (4.8-10.8)
[2016-09-04 06:13] LABS: BUN/CREATININE RATIO 15.7 (10-20); CALCIUM 9.4 mg/dl (8.5-10.1); CREATININE 1.8 mg/dl (0.60-1.20); POTASSIUM 4.1 mmol/L (3.5-5.1)
--- NOTE | 2016-09-04 07:29 | Orthopedic Progress Note ---
Orthopedic Progress Note Date of Service Sep 04, 2016. Subjective Post OP Day: 4 Reports: feeling well, pain controlled w PO medications, Denies: SOB, calf pain , chest pain, complaints, light headedness, nausea / vomiting Additional Notes: Patient is feeling well. She still has some soreness in her left forearm but she states the redness has gone down significantly since yesterday. Objective calves soft nontender, capillary refill less than 2 sec., dressing C/D/I, A&O x3 , toes mobile Date Time Temp Pulse Resp B/P Pulse Ox O2 Delivery O2 Flow Rate FiO2 09/04/16 00:20 Room Air 09/03/16 23:10 36.5 62 16 132/74 96 Room Air 09/03/16 16:02 36.8 75 17 147/81 97 Room Air 09/03/16 08:31 98 Room Air 09/03/16 08:00 Room Air 09/03/16 07:59 36.8 71 16 122/70 98 Room Air Laboratory Results 24 Hours: Test 09/04/16 05:19 Hematocrit 27.6 % Hemoglobin 8.8 g/dL Assessment & Plan Assessment: POD #4 SP I&D RIGHT HAND . Plan: CULTURES PENDING, WILL FOLLOW - preliminary show no growth CONT DAILY DRESSING CHANGES Notable redness of left forearm on the volar aspect - this has resolved. Minimal redness on exam. There is some soreness to palpation but not significant compared to yesterday She will Start PO Flagyl and Levaquin - discharge home with these Hopefully Discharge today Inhouse Planning Pain Management: Oxy IR, other (VOLTAREN) DVT Prophylaxis: ASA Discharge Planning Discharge Planning: home (PO Flagyl and Levaquin)
[2016-09-04 07:35] VITALS: BP 137/58; PULSE 67; TEMP 36.8; O2SAT 97
[2016-09-04] MEDS: INSULIN GLARGINE SOLOSTAR 100 UNITS/ML 3 ML PEN SC SCH (09:00)
[2016-09-04] MEDS: INSULIN ASPART 100 UNITS/ML 3 ML PEN SC SCH ×2 (09:14→13:08)
[2016-09-04 09:15] VITALS: PULSE 66
[2016-09-04] MEDS: FENOFIBRATE 145 MG TAB PO SCH (09:16)
[2016-09-04] MEDS: LOSARTAN POTASSIUM 50 MG TAB PO SCH (09:16)
[2016-09-04] MEDS: ASPIRIN 81 MG ECTAB PO SCH (09:17)
[2016-09-04] MEDS: METRONIDAZOLE 500 MG TAB PO SCH ×2 (09:17→13:54)
[2016-09-04] MEDS: METOPROLOL TARTRATE 25 MG TAB PO SCH (09:18)
[2016-09-04] MEDS: LOPERAMIDE HCL 2 MG CAP PO PRN (09:24)
--- NOTE | 2016-09-04 10:16 | Progress Note ---
Internal Med Progress Note Date of Service: Sep 04, 2016. Provider Documentation: SUBJECTIVE: The Patient was seen and examined Right hand is better following I&D Denies any more anterior thigh pain Remains stable and ready to be discharged OBJECTIVE: Vital Signs-as noted below Exam: General-no distress Eyes-normal ENT-normal Neck-supple Lungs-clear to ausucltate bilaterally Heart-Regular,no murmur Abdomen-benign,no masses,bowel sound present Extremities-No edema Right Hand is bandaged Swelling is much improved Neuro-AAOx3 Lab data as noted below. ASSESSMENT & PLAN: CAT BITE RIGHT HAND-Abscess right dorsum Cat bite a few weeks ago, now on second course of antibiotics. Persistent swelling dorsum of right hand. X-ray does not show any Osteo Fluid collection suspicious for an Abscess Ortho consulted for possible I&D -appreciate input No antibiotic yet-has had 2 course as an OP IV Doxycycline started yesterday S/P I&D Not much pain in right hand Started on IV vancomycin Culture -negative so far Appreciate ID input and recommendation DIARRHEA Has had 2 courses of antibiotic as an OP At risk for C diff- stool-positive Started on oral Vancomycin Diarrhea is controlled with Imodium Medication has been changed to oral Flagyl ACUTE KIDNEY INJURY Likely secondary to dehydration CKD III with recent baseline creatinine 1.6 - 1.9. Serum creatinine now 2.7. Avoid Nephrotoxic agents IVF and monitor Monitor PRP Repeat PRP -creatinine 1.8 today DM TYPE II-uncontrolled Fluctuating blood sugars due to current illness. Check Hgb A1C-9. Lantus / NovoLog during hospital stay. SSI GI BLEEDING Most likely due to colitis. Colonoscopy last year reportedly normal. Follow H/H.-8.8 today RLE PAIN Patient experiencing severe right lower extremity pain- suspect sciatica. Check plain films lumbar spine. Check US to r/o DVT.-no DVT Pain seems to be Musculoskeletal MRI of the LS Spine-unremarkable Resolved HYPERTENSION Continue metoprolol with hold parameters. SLEEP APNEA Intolerant of CPAP. VTE PROPHYLAXIS No anticoagulants due to GI bleeding. SCD's. Ambulate. RESUSCITATION STATUS-Level 1 DISPOSITION Admit to Med-Surg Unit. Expected discharge to home. Family Medicine follow-up with Dr. Freitas. Likely discharge today Vital Signs: Date Time Temp Pulse Resp B/P Pulse Ox O2 Delivery O2 Flow Rate FiO2 09/04/16 09:15 66 09/04/16 07:35 36.8 67 16 137/58 97 Room Air 09/04/16 00:20 Room Air 09/03/16 23:10 36.5 62 16 132/74 96 Room Air 09/03/16 16:02 36.8 75 17 147/81 97 Room Air Lab Results: Results Past 24 Hours Test 09/03/16 11:20 09/03/16 17:05 09/03/16 20:55 09/04/16 05:19 Range/Units Bedside Glucose 177 146 198 70-90 mg/dl White Blood Count 8.27 4.8-10.8 K/uL Red Blood Count 3.10 4.2-5.4 M/uL Hemoglobin 8.8 12.0-16.0 g/dL Hematocrit 27.6 37-47 % Mean Corpuscular Volume 89.0 80-100 fL Mean Corpuscular Hemoglobin 28.4 25-34 pg Mean Corpuscular Hemoglobin Concent 31.9 32-36 g/dl RDW Standard Deviation 48.8 36.4-46.3 fL RDW Coefficient of Variation 15.1 11.5-14.5 % Platelet Count 269 130-400 K/uL Mean Platelet Volume 9.5 7.4-10.4 fL Sodium Level 144 136-145 mmol/L Potassium Level 4.1 3.5-5.1 mmol/L Chloride Level 110 98-107 mmol/L Carbon Dioxide Level 26 21-32 mmol/L Anion Gap 8.0 3-11 mmol/L Blood Urea Nitrogen 28 7-18 mg/dl Creatinine 1.80 0.60-1.20 mg/dl Est Creatinine Clear Calc Drug Dose 44.7 ml/min Estimated GFR () 35.8 Estimated GFR (Non- 30.9 BUN/Creatinine Ratio 15.7 10-20 Random Glucose 79 70-99 mg/dl Calcium Level 9.4 8.5-10.1 mg/dl Test 09/04/16 08:10 Range/Units Bedside Glucose 77 70-90 mg/dl
[2016-09-04] MEDS ORDERED: MTR500 PO (10:53)
[2016-09-04] MEDS ORDERED: LVQ750 PO (10:53)
--- NOTE | 2016-09-04 10:57 | Discharge Instructions ---
Discharge Instructions Date of Service Sep 04, 2016. Admission Reason for Admission: Acute Kidney Injury, Diarrhea Discharge Discharge Diagnosis / Problem: Right Dorsal Abscess,s/p Cat bite , s/p I&D,C Diff Colitis,DM Discharge Goals Goal(s): Prevent Disease Progression Activity Recommendations Activity Limitations: resume your previous activity . Instructions / Follow-Up Instructions / Follow-Up Dr Freitas on 09/07/16 at 1:30 PM.Wound dressing as advised. Current Hospital Diet Patient's current hospital diet: Diabetes Type 2 Diet Discharge Diet Recommended Diet: Diabetes Type 2 Diet Procedures Procedures Performed: Right Hand Incision and Drainage Pending Studies Studies pending at discharge: no Laboratory Results Hemoglobin A1c Test 08/30/16 06:05 Range/Units Estimated Average Glucose 212 mg/dl Hemoglobin A1c 9.0 H 4.5-5.6 % Medical Emergencies . Who to Call and When: Medical Emergencies: If at any time you feel your situation is an emergency, please call 911 immediately. . Non-Emergent Contact Non-Emergency issues call your: Primary Care Provider . Past History Medical & Surgical History: (1) C. difficile colitis (2) Acute kidney injury (3) Hypertension (4) Dyslipidemia (5) Sleep apnea (6) Chronic kidney disease (CKD), stage III (moderate) (7) Cat bite of hand . "Provider Documentation" section prepared by Tanner Forrest. VTE Core Measure Inpt VTE Proph given/why not?: SCD's
--- NOTE | 2016-09-04 11:18 | Discharge Summary ---
Discharge Summary Date of Service Sep 04, 2016. Discharge Summary Admission Date: Aug 29, 2016 at 22:49 Discharge Date: Sep 04, 2016 Discharge Disposition: Home Principal Diagnosis: Right hand Dorsal Abscess,s/p Cat bite , s/p I&D,C Diff Colitis,DM Secondary Diagnoses/Problems: Please se H&P and Progress note Consultations: Ortho and ID Medication Reconciliation New Medications: Levofloxacin (Levofloxacin) 750 Mg Tab 750 MG PO Q2D@1100 for 12 Days, #6 TAB Metronidazole (Metronidazole) 500 Mg Tab 500 MG PO TID for 10 Days, #30 TAB Continued Medications: Amitriptyline Hcl (Elavil) 10 Mg Tab 4 TAB PO HS, TAB Aspirin (Aspirin Chewable) 81 Mg Chew 81 MG PO QAM Atorvastatin (Lipitor) 80 Mg Tab 80 MG PO HS, TAB Cholecalciferol (Vitamin D3) 5,000 Unit Cap 1 CAP PO QAM Diclofenac (Voltaren) 75 Mg Tabcr 75 MG PO Q OTHER PM, TAB WITH FOOD Fenofibrate (Tricor) 145 Mg Tab 145 MG PO QAM, TAB Furosemide (Lasix) 40 Mg Tab 40 MG PO ON HOLD, TAB TAKES 2 TABS ON SAT AND THURSDAYS. Hydrocodone/Acetaminophen 10MG/325MG (Satin 10MG/325MG) Tab 1 TAB PO TID PRN for Pain for 30 Days, #90 TAB PRN PAIN Insulin Human NPH (Novolin N) 100 Units/Ml Susp 100 UNITS SC QAM Insulin Human NPH (Novolin N) 100 Units/Ml Susp 60 UNITS SQ QPM Insulin Regular (Human) (Novolin R Relion) 100 Unit/Ml Inj 1 DOSE SC TID PER SLIDING SCALE Liraglutide (Victoza) 18 Mg/3 Ml Inj 1.8 UNITS SQ DAILY Losartan Potassium (Cozaar) 50 Mg Tab 50 MG PO QAM, TAB Magnesium Oxide (Mg Supplement (Magnesium) 500 Mg Tab 1 TAB PO QAM Metoprolol Tartrate (Lopressor) (Lopressor) 25 Mg Tab 1 TAB PO BID for 90 Days, #180 TAB 3 Refills Probiotic Product (Probiotic) 1 Cap Cap 1 CAP DAILYBB Tramadol (Ultram) 50 Mg Tab 50 MG PO Q6H PRN for Pain, TAB Discontinued Medications: Ciprofloxacin Hcl (Cipro) 500 Mg Tab 500 MG PO Q12, TAB Admission Information HPI (per Admitting provider): 55 YO female followed by Dr. Freitsa. History of hypertension, DM, and other problems noted below. Bitten by domestic cat a few weeks ago. Seen in [place] ED and prescribed antibiotics (uncertain which ones). Persistent pain and swelling of dorsum of right hand, but no drainage. Prescribed ciprofloxacin yesterday. Developed diarrhea 4 days prior to admission. Diarrhea was very frequent for the first few days- sometimes twice an hour. She took Pepto-Bismol and probiotics. Only had 4 episodes today. Stools are loose with some blood. No abdominal pain, nausea, vomiting. Temp as high as 103 past few days. . Past Medical/Surgical History Chronic Medical Problems: (1) Charcot's joint of foot due to diabetes Status: Chronic (2) Chronic kidney disease (CKD), stage III (moderate) Status: Chronic (3) Diabetes mellitus, type 2 Status: Chronic (4) Diabetic neuropathy Status: Chronic (5) Dyslipidemia Status: Chronic (6) Hypertension Status: Chronic (7) Osteoarthritis Status: Chronic (8) Sleep apnea Status: Chronic Surgical Problems: (3) Status post colonoscopy Permanent Comment: 2012- 2 hyperplastic + 1 adenomatous polyps; 2016- normal Status: Chronic (4) Status post tonsillectomy Status: Chronic (5) Status post tubal ligation Status: Chronic . Family History FATHER COPD (chronic obstructive pulmonary disease) Heart disease MOTHER Rheumatoid arthritis SISTER Stroke SON Diabetes mellitus Social History Smoking Status: Former Smoker Alcohol Use: none Immunizations History of Influenza Vaccine: Yes History of Pneumococcal: Yes Allergies Coded Allergies: Amoxicillin (Verified Allergy, Intermediate, HIVES, 08/29/16) Clavulanic Acid (Verified Allergy, Intermediate, HIVES, 08/29/16) Lisinopril (Verified Adverse Reaction, Unknown, NAUSEA/VOMITING, 04/04/16) Home Medications Scheduled Amitriptyline Hcl (Elavil), 4 TAB PO HS Aspirin (Aspirin Chewable), 81 MG PO QAM Atorvastatin (Lipitor), 80 MG PO HS Cholecalciferol (Vitamin D3), 1 CAP PO QAM Ciprofloxacin Hcl (Cipro), 500 MG PO Q12 Diclofenac (Voltaren), 75 MG PO Q OTHER PM Fenofibrate (Tricor), 145 MG PO QAM Furosemide (Lasix), 40 MG PO ON HOLD Insulin Human NPH (Novolin N), 100 UNITS SC QAM Insulin Human NPH (Novolin N), 60 UNITS SQ QPM Insulin Regular (Human) (Novolin R Relion), 1 DOSE SC TID Liraglutide (Victoza), 1.8 UNITS SQ DAILY Losartan Potassium (Cozaar), 50 MG PO QAM Magnesium Oxide (Mg Supplement (Magnesium), 1 TAB PO QAM Metoprolol Tartrate (Lopressor) (Lopressor), 1 TAB PO BID Probiotic Product (Probiotic), 1 CAP DAILYBB Scheduled PRN Hydrocodone/Acetaminophen 10MG/325MG (Satin 10MG/325MG), 1 TAB PO TID PRN for Pain Tramadol (Ultram), 50 MG PO Q6H PRN for Pain Review of Systems Constitutional: + fatigue, + fever, + weight loss (few pounds) Eyes: + worsening of vision (occasional blurred vision), No diplopia ENT: No hearing loss, No nasal symptoms, No sore throat, No unusual epistaxis Respiratory: No cough, No shortness of breath Cardiovascular: + edema (chronic dependent), + palpitations (occasional past few days), No chest pain Abdomen: + problem reported (as noted above in HPI) Musculoskeletal: + problem reported (right lateral thigh pain) Genitourinary - Female: No dysuria, No hematuria Neurologic: + problem reported (diabetic neuropathy), No paralysis Endocrine: + fatigue, + problem reported (blood sugars fluctuating), No excessive thirst, No excessive urination Hematologic / Lymphatic: No abnormal bleeding/bruising, No swollen lymph nodes Integumentary: No itch, No new/changing skin lesions, No rash Physical Ex - H&P Physical Exam Vital Signs Date Time Temp Pulse Resp B/P Pulse Ox O2 Delivery O2 Flow Rate FiO2 08/29/16 21:47 70 18 114/72 98 Room Air 08/29/16 20:25 80 20 116/66 99 Room Air 08/29/16 19:08 37.0 83 19 117/71 99 Room Air General Appearance: WD/WN, no apparent distress, + obese Head: normocephalic, atraumatic Eyes: normal inspection, PERRL, EOMI, sclerae normal (conjuncitvae pink) ENT: normal ENT inspection, hearing grossly normal, pharynx normal, + pertinent finding (edentulous, uppper + lower dentures) Neck: supple, no adenopathy, thyroid normal, no JVD, trachea midline Respiratory/Chest: lungs clear, no respiratory distress Cardiovascular: regular rate, rhythm, no gallop, no JVD, no murmur, + pertinent finding (trace pretibial edema; pedal pulses diminished) Abdomen/GI: normal bowel sounds, non tender, soft, no organomegaly, no pulsatile mass Extremities/Musculoskelatal: no calf tenderness, normal capillary refill, + pedal edema (trace), + pertinent finding (Charcot deformity right foot; no diabetic foot ulcers) Neurologic/Psych: 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 (PERRL, EOMI, no facial palsy, no dysarthria), alert, normal mood/affect, oriented x 3, + pertinent finding ( proximal RLE weakness vs discomfort from pain) Skin: normal color, warm/dry, no rash Lymphatic: no adenopathy Diagnostics - H&P Diagnostics Laboratory Results Results Past 24 Hours Test 08/29/16 19:47 08/29/16 21:15 Range/Units White Blood Count 12.85 4.8-10.8 K/uL Red Blood Count 3.67 4.2-5.4 M/uL Hemoglobin 10.6 12.0-16.0 g/dL Hematocrit 31.9 37-47 % Mean Corpuscular Volume 86.9 80-100 fL Mean Corpuscular Hemoglobin 28.9 25-34 pg Mean Corpuscular Hemoglobin Concent 33.2 32-36 g/dl Platelet Count 288 130-400 K/uL Mean Platelet Volume 9.9 7.4-10.4 fL Neutrophils (%) (Auto) 58.4 % Lymphocytes (%) (Auto) 30.0 % Monocytes (%) (Auto) 6.8 % Eosinophils (%) (Auto) 3.7 % Basophils (%) (Auto) 0.6 % Neutrophils # (Auto) 7.48 1.4-6.5 K/uL Lymphocytes # (Auto) 3.86 1.2-3.4 K/uL Monocytes # (Auto) 0.88 0.11-0.59 K/uL Eosinophils # (Auto) 0.48 0-0.5 K/uL Basophils # (Auto) 0.08 0-0.2 K/uL RDW Standard Deviation 49.0 36.4-46.3 fL RDW Coefficient of Variation 15.3 11.5-14.5 % Immature Granulocyte % (Auto) 0.5 % Immature Granulocyte # (Auto) 0.07 0.00-0.02 K/uL Prothrombin Time 11.3 9.0-12.0 SECONDS Prothromb Time International Ratio 1.1 0.9-1.1 Activated Partial Thromboplast Time 27.7 21.0-31.0 SECONDS Partial Thromboplastin Ratio 1.1 Sodium Level 138 136-145 mmol/L Potassium Level 4.1 3.5-5.1 mmol/L Chloride Level 102 98-107 mmol/L Carbon Dioxide Level 28 21-32 mmol/L Anion Gap 8.0 3-11 mmol/L Blood Urea Nitrogen 47 7-18 mg/dl Creatinine 2.70 0.60-1.20 mg/dl Est Creatinine Clear Calc Drug Dose 29.8 ml/min Estimated GFR () 21.9 Estimated GFR (Non- 18.9 BUN/Creatinine Ratio 17.5 10-20 Random Glucose 133 70-99 mg/dl Calcium Level 10.0 8.5-10.1 mg/dl Total Bilirubin 0.3 0.2-1 mg/dl Direct Bilirubin 0.1 0-0.2 mg/dl Aspartate Amino Transf (AST/SGOT) 34 15-37 U/L Alanine Aminotransferase (ALT/SGPT) 34 12-78 U/L Alkaline Phosphatase 83 45-117 U/L Total Protein 8.3 6.4-8.2 gm/dl Albumin 3.5 3.4-5.0 gm/dl Lipase 148 73-393 U/L Urine Color YELLOW Urine Appearance CLEAR CLEAR Urine pH 5.0 4.5-7.5 Urine Specific [place] 1.011 1.000-1.030 Urine Protein NEG NEG Urine Glucose (UA) NEG NEG Urine Ketones NEG NEG Urine Occult Blood NEG NEG Urine Nitrite NEG NEG Urine Bilirubin NEG NEG Urine Urobilinogen NEG NEG Urine Leukocyte Esterase TRACE NEG Urine WBC (Auto) 1-5 0-5 /hpf Urine RBC (Auto) 0-4 0-4 /hpf Urine Hyaline Casts (Auto) 5-10 0-5 /lpf Urine Epithelial Cells (Auto) 20-30 0-5 /lpf Urine Bacteria (Auto) NEG NEG Urine Test NEG NEG Impression - H&P Impression Assessment and Plan ACUTE KIDNEY INJURY CKD III with recent baseline creatinine 1.6 - 1.9. Serum creatinine now 2.7. Acute kidney injury probably due to volume depletion from diarrhea. IV fluids. Weaning off diclofenac under direction of Nephrology. DIARRHEA At risk for C diff- stool specimen pending. GI BLEEDING Most likely due to colitis. Colonoscopy last year reportedly normal. Follow H/H. CAT BITE RIGHT HAND Cat bite a few weeks ago, now on second course of antibiotics. Persistent swelling dorsum of right hand. Uncertain whether or not hand is infected at this time. Hold antibiotics in light of diarrhea. Markers of inflammation probably won't be helpful in setting of diarrheal illness. Check x-rays and US right hand. RLE PAIN Patient experiencing severe right lower extremity pain- suspect sciatica. Check plain films lumbar spine. Check US to r/o DVT. May need further imaging if symptoms persist. HYPERTENSION Continue metoprolol with hold parameters. SLEEP APNEA Intolerant of CPAP. DM TYPE II Fluctuating blood sugars due to current illness. Check Hgb A1C. Lantus / NovoLog during hospital stay. VTE PROPHYLAXIS No anticoagulants due to GI bleeding. SCD's. Ambulate. RESUSCITATION STATUS Discussed with patient. She does not have a living will. She would like resuscitation attempted in the event of a cardiopulmonary arrest if there is a reasonable chance of a meaningful recovery, but does not want prolonged extraordinary measures if prognosis is poor. Therefore, code status = "Level 1" (full resuscitation). DISPOSITION Admit to Med-Surg Unit. Expected discharge to home. Family Medicine follow-up with Dr. Freitas. . VTE Prophylaxis VTE Risk Assessment Done? Y/N: Yes Risk Level: Moderate Given or contraindicated: SCD's Physical Exam (per Admitting): General Appearance: WD/WN, no apparent distress, + obese Head: normocephalic, atraumatic Eyes: normal inspection, PERRL, EOMI, sclerae normal (conjuncitvae pink) ENT: normal ENT inspection, hearing grossly normal, pharynx normal, + pertinent finding (edentulous, uppper + lower dentures) Neck: supple, no adenopathy, thyroid normal, no JVD, trachea midline Respiratory/Chest: lungs clear, no respiratory distress Cardiovascular: regular rate, rhythm, no gallop, no JVD, no murmur, + pertinent finding (trace pretibial edema; pedal pulses diminished) Abdomen/GI: normal bowel sounds, non tender, soft, no organomegaly, no pulsatile mass Extremities/Musculoskelatal: no calf tenderness, normal capillary refill, + pedal edema (trace), + pertinent finding (Charcot deformity right foot; no diabetic foot ulcers) Neurologic/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 Persistent swelling dorsum of right hand. X-ray does not show any Osteo Fluid collection suspicious for an Abscess Ortho consulted for possible I&D -appreciate input No antibiotic yet-has had 2 course as an OP IV Doxycycline started yesterday S/P I&D Not much pain in right hand Started on IV vancomycin Culture -negative so far Appreciate ID input and recommendation DIARRHEA Has had 2 courses of antibiotic as an OP At risk for C diff- stool-positive Started on oral Vancomycin Diarrhea is controlled with Imodium Medication has been changed to oral Flagyl ACUTE KIDNEY INJURY Likely secondary to dehydration CKD III with recent baseline creatinine 1.6 - 1.9. Serum creatinine now 2.7. Avoid Nephrotoxic agents IVF and monitor Monitor PRP Repeat PRP -creatinine 1.8 today DM TYPE II-uncontrolled Fluctuating blood sugars due to current illness. Check Hgb A1C-9. Lantus / NovoLog during hospital stay. SSI GI BLEEDING Most likely due to colitis. Colonoscopy last year reportedly normal. Follow H/H.-8.8 today RLE PAIN Patient experiencing severe right lower extremity pain- suspect sciatica. Check plain films lumbar spine. Check US to r/o DVT.-no DVT Pain seems to be Musculoskeletal MRI of the LS Spine-unremarkable Resolved HYPERTENSION Continue metoprolol with hold parameters. SLEEP APNEA Intolerant of CPAP. VTE PROPHYLAXIS No anticoagulants due to GI bleeding. SCD's. Ambulate. RESUSCITATION STATUS-Level 1 DISPOSITION Admit to Med-Surg Unit. Expected discharge to home. Family Medicine follow-up with Dr. Freitas. Likely discharge today Total time spent on discharge = 35 minutes This includes examination of the patient, discharge planning, medication reconciliation, and communication with other providers. Discharge Instructions Date of Service Sep 04, 2016. Admission Reason for Admission: Acute Kidney Injury, Diarrhea Discharge Discharge Diagnosis / Problem: Right Dorsal Abscess,s/p Cat bite , s/p I&D,C Diff Colitis,DM Discharge Goals Goal(s): Prevent Disease Progression Activity Recommendations Activity Limitations: resume your previous activity . Instructions / Follow-Up Instructions / Follow-Up Dr Freitas on 09/07/16 at 1:30 PM.Wound dressing as advised. Current Hospital Diet Patient's current hospital diet: Diabetes Type 2 Diet Discharge Diet Recommended Diet: Diabetes Type 2 Diet Procedures Procedures Performed: Right Hand Incision and Drainage Pending Studies Studies pending at discharge: no Laboratory Results Hemoglobin A1c Test 08/30/16 06:05 Range/Units Estimated Average Glucose 212 mg/dl Hemoglobin A1c 9.0 H 4.5-5.6 % Medical Emergencies . Who to Call and When: Medical Emergencies: If at any time you feel your situation is an emergency, please call 911 immediately. . Non-Emergent Contact Non-Emergency issues call your: Primary Care Provider . Past History Medical & Surgical History: (1) C. difficile colitis (2) Acute kidney injury (3) Hypertension (4) Dyslipidemia (5) Sleep apnea (6) Chronic kidney disease (CKD), stage III (moderate) (7) Cat bite of hand . "Provider Documentation" section prepared by Tanner Forrest. VTE Core Measure Inpt VTE Proph given/why not?: SCD's <Electronically signed by Tanner Forrest M.D.> Additional Copies To Kaila Freitas M.D.
--- NOTE | 2016-09-04 11:39 | Infectious Disease Progress Nt ---
Progress Note Date of Service Sep 04, 2016. Subjective Pt evaluation today including: conversation w/ patient, physical exam, chart review, lab review, review of studies, review of inpatient medication list WBC count today was 8.27. Creatinine slightly improved to 1.8. Deep hand culture is showing NGTD. The patient was transitioned to PO Levaquin and Flagyl last night. She states that she did have a mildly loose stool this morning but no watery diarrhea. She is hoping for D/C soon. She has some mild continued pain in the right hand as well. All Other Systems: Reviewed and Negative Medications Current Inpatient Medications Medications (Trade) Dose Ordered Sig/Olivia Route Start Time Stop Time Status Last Admin Dose Admin Amitriptyline HCl (Elavil Tab) 40 mg HS PO 08/30/16 21:00 09/29/16 20:59 09/03/16 21:14 40 MG Aspirin (Ecotrin Tab) 81 mg QAM PO 08/30/16 09:00 09/29/16 08:59 09/04/16 09:17 81 MG Atorvastatin Calcium (Lipitor Tab) 80 mg HS PO 08/30/16 21:00 09/29/16 20:59 09/03/16 21:14 80 MG Diclofenac Sodium (Voltaren Tab) 75 mg Q2D@2100 PO 08/31/16 21:00 09/30/16 20:59 09/02/16 21:48 75 MG Fenofibrate (Tricor Tab) 145 mg QAM PO 08/30/16 09:00 09/29/16 08:59 09/04/16 09:16 145 MG Acetaminophen/ Hydrocodone Bitart ([place] 10/325 Tab) 1 tab TID PRN PO 08/29/16 23:30 09/12/16 23:29 09/01/16 09:28 1 TAB Losartan Potassium (coZAAR TAB) 50 mg QAM PO 08/30/16 09:00 09/29/16 08:59 09/04/16 09:16 50 MG Metoprolol Tartrate (Lopressor Tab) 25 mg BID PO 08/30/16 09:00 09/29/16 08:59 09/04/16 09:18 25 MG Tramadol HCl 50 mg 50 mg Q6H PRN PO 08/29/16 23:30 09/28/16 23:29 09/04/16 00:18 50 MG Lactated Ringer's (Lr 1000ml) 1,000 ml @ 100 mls/hr Q10H IV 08/30/16 01:45 09/29/16 01:44 09/04/16 01:51 100 MLS/HR Insulin Glargine (Lantus Solostar Pen) 40 unit BID SC 08/30/16 09:00 09/29/16 08:59 09/03/16 21:42 40 UNIT Insulin Aspart (novoLOG ASPART) SLIDING SCALE G... ACHS SC 08/30/16 08:00 09/29/16 07:59 09/04/16 09:14 2 UNITS Glucose (Glucose 40% Gel) 15-30 GRAMS 15 GRAMS... UD PRN PO 08/30/16 02:15 09/29/16 02:14 Glucose (Glucose Chew Tab) 4-8 Tablets 4 Tabl... UD PRN PO 08/30/16 02:15 09/29/16 02:14 Dextrose (Dextrose 50% 50ML Syringe) 25-50ML OF 50% DW IV FOR... UD PRN IV 08/30/16 02:15 09/29/16 02:14 Glucagon (Glucagon Inj) 1 mg UD PRN SQ 08/30/16 02:15 09/29/16 02:14 Oxycodone HCl (Roxicodone Immediate Rel Tab) 1-2 TABS FOR PAIN 1 TABLET ... Q4H PRN PO 08/31/16 17:30 09/14/16 17:29 09/01/16 21:26 10 MG Loperamide HCl (Imodium Cap) 2 mg Q6H PRN PO 09/02/16 12:30 10/02/16 12:29 09/04/16 09:24 2 MG Levofloxacin (Levaquin Tab) 750 mg Q2D@1100 PO 09/03/16 16:00 09/13/16 15:59 09/03/16 16:47 750 MG Metronidazole (Flagyl Tab) 500 mg TID PO 09/03/16 21:00 09/17/16 20:59 09/04/16 09:17 500 MG Levofloxacin (Consult) 1 ea UD PRN N/A 09/03/16 15:30 10/03/16 15:29 Objective Vital Signs Date Time Temp Pulse Resp B/P Pulse Ox O2 Delivery O2 Flow Rate FiO2 09/04/16 09:15 66 09/04/16 07:35 36.8 67 16 137/58 97 Room Air 09/04/16 00:20 Room Air 09/03/16 23:10 36.5 62 16 132/74 96 Room Air 09/03/16 16:02 36.8 75 17 147/81 97 Room Air Physical Exam General Appearance: no apparent distress, + obese Eyes: normal inspection, sclerae normal ENT: hearing grossly normal Neck: supple, trachea midline Respiratory/Chest: no respiratory distress, no accessory muscle use Cardiovascular: regular rate, rhythm Extremities: + pertinent finding (right hand with dressing in place. Note continued mild edema of the right 3rd thru 5th fingers and also of distal hand.) Neurologic/Psychiatric: alert, oriented x 3 Skin: + pertinent finding (some continued mild erythema of the distal right hand) Laboratory Results RUN DATE: 09/04/16 [facility] PAGE 1 RUN TIME: 1117 Specimen Inquiry PATIENT: WENDI DAMON LOC: [facility] U # : [id number] AGE/SX: 55/F ROOM: [facility] REG : 08/29/[address]: Therese Pemberton M.D. : 1960 BED: 1 DIS : STATUS: ADM IN TLOC: SPEC #: [id number] JACKELIN: 08/31/16 STATUS: RES REQ #: [id number] RECD: 08/31/[address]: Tanner Forrest M.D. SOURCE: DRAIN-DEEP ENTR: 08/31/[address]: Arturo Rendon D.OSamuel SPDESC: HAND RIGHT Copsarah, Joe Garcia Doriann M.D. ORDERED: AER/RACHEL CULTSMR Procedure Result Verified Site GRAM STAIN Final 09/01/16 RESULT RARE WBCs SEEN RARE EPITHELIAL CELLS NO ORGANISMS SEEN OR AER/RACHEL CULT Preliminary 09/04/16 NO GROWTH TO DATE. Last 24 Hours Test 09/03/16 17:05 09/03/16 20:55 09/04/16 05:19 09/04/16 08:10 Bedside Glucose 146 mg/dl 198 mg/dl 77 mg/dl White Blood Count 8.27 K/uL Red Blood Count 3.10 M/uL Hemoglobin 8.8 g/dL Hematocrit 27.6 % Mean Corpuscular Volume 89.0 fL Mean Corpuscular Hemoglobin 28.4 pg Mean Corpuscular Hemoglobin Concent 31.9 g/dl RDW Standard Deviation 48.8 fL RDW Coefficient of Variation 15.1 % Platelet Count 269 K/uL Mean Platelet Volume 9.5 fL Sodium Level 144 mmol/L Potassium Level 4.1 mmol/L Chloride Level 110 mmol/L Carbon Dioxide Level 26 mmol/L Anion Gap 8.0 mmol/L Blood Urea Nitrogen 28 mg/dl Creatinine 1.80 mg/dl Est Creatinine Clear Calc Drug Dose 44.7 ml/min Estimated GFR () 35.8 Estimated GFR (Non- 30.9 BUN/Creatinine Ratio 15.7 Random Glucose 79 mg/dl Calcium Level 9.4 mg/dl Assessment and Plan Patient with right dorsal hand infection following domestic cat bite along with new onset C. Diff colitis. She is currently on PO Flagyl (to cover anaerobic bacteria and 1st episode of C. Diff) along with PO Levaquin (to cover Gram negatives and MSSA, strep). Patient will need close follow up after discharge. OK for D/C from ID perspective once medically cleared. Thanks PROVIDER ADDENDUM: Patient reviewed with Ms. Mack. Agree with above assessment.
[2016-09-04 12:16] VITALS: BP 137/58; PULSE 66; TEMP 36.8; O2SAT 97
== END 2016-09-04 14:12 | disposition home or self-care (01) | DRG 982 ==
LOC: ENRESERVDT → ENRESERVTM → C.EDB 19:02 → C.MSW 22:49
PROVIDERS: ADMIT Hospitalist; ATTEND Internal Medicine
PROC: 0PBP0ZZ Excision of Right Metacarpal, Open Approach (ICD-10-PCS; principal; 2016-08-31 11:30)
PROC: 0LB70ZZ Excision of Right Hand Tendon, Open Approach (ICD-10-PCS; principal; 2016-08-31 11:30)
DX: L02.511 Cutaneous abscess of right hand (principal); N17.9 Acute kidney failure, unspecified; A04.7 Enterocolitis due to Clostridium difficile; K92.2 Gastrointestinal hemorrhage, unspecified; E11.65 Type 2 diabetes mellitus with hyperglycemia; E11.22 Type 2 diabetes mellitus with diabetic chronic kidney disease; I12.9 Hypertensive chronic kidney disease with stage 1 through stage 4 chronic kidney disease, or unspecified chronic kidney disease; N18.3 Chronic kidney disease, stage 3 (moderate); R19.7 Diarrhea, unspecified; G47.30 Sleep apnea, unspecified; E11.42 Type 2 diabetes mellitus with diabetic polyneuropathy; E78.5 Hyperlipidemia, unspecified; M19.90 Unspecified osteoarthritis, unspecified site; Z87.891 Personal history of nicotine dependence; Z79.4 Long term (current) use of insulin; Z83.3 Family history of diabetes mellitus; Z82.3 Family history of stroke

== ENCOUNTER 2018-09-16 15:01 | Observation (INO) ==
[2018-09-16] MEDS ORDERED: ASPIRIN CHEW 324 MG PO STA (15:22)
[2018-09-16 15:46] LABS: Basophils # (auto) 0.08 K/uL (0-0.2); Basophils % (auto) 0.9 %; Eosinophils # (auto) 0.33 K/uL (0-0.5); Eosinophils % (auto) 3.7 %; Hematocrit (blood only) 34.3 % (37-47); Hemoglobin 11.9 g/dL (12.0-16.0); Immature Granulocytes # (auto) 0.05 K/uL (0.00-0.02); Immature Granulocytes % (auto) 0.6 %; Lymphocytes # (auto) 2.91 K/uL (1.2-3.4); Lymphocytes % (auto) 32.8 %; Mean Corpuscular Hgb Conc 34.7 g/dL (32-36); Mean Corpuscular Volume 83.9 fL (80-100); Mean Platelet Volume 10.3 fL (7.4-10.4); Monocytes % (auto) 5.6 %; Neutrophils # (auto) 4.99 K/uL (1.4-6.5); Neutrophils % (auto) 56.4 %; Platelet Count 232 K/uL (130-400); RDW Coefficient of Variation 14.3 % (11.5-14.5); Red Blood Count 4.09 M/uL (4.2-5.4); White Blood Count 8.86 K/uL (4.8-10.8)
[2018-09-16 16:04] LABS: BUN Creatinine Ratio 23.2 (10-20); Blood Urea Nitrogen 32 mg/dl (7-18); Calcium 9.6 mg/dl (8.5-10.1); Carbon Dioxide 28 mmol/L (21-32); Chloride 100 mmol/L (98-107); Creatinine Clr Calc Pharmacy 54.6 ml/min; Est GFR (African American) 49.6; Est GFR (Non-African American) 42.8; Glucose 294 mg/dl (70-99); Sodium 137 mmol/L (136-145)
[2018-09-16 16:08] LABS: Troponin I < 0.015 ng/ml (0-0.045)
--- NOTE | 2018-09-16 16:20 | XRay Report ---
TWO VIEW CHEST CLINICAL HISTORY: Atypical chest pain. FINDINGS: PA and lateral chest radiographs are obtained. No prior studies are available for compariso n at the time of dictation. The cardiomediastinal silhouette is unremarkable. The lungs and pleural spaces are clear. There is no pneumothorax. The bony thorax appears intact. Degenerative change is n oted throughout the thoracic spine. Cholecystectomy clips are seen in the upper abdomen. IMPRESSION: No active disease in the chest. Electronically signed by: Albin Dior M.D. 09/16/2018 4:18 PM
[2018-09-16] MEDS ORDERED: ACETAMINOPHEN 1,000 MG/100 ML VIAL IV STA (17:41)
--- NOTE | 2018-09-16 17:42 | History & Physical Report ---
Date of Service September 16, 2018 Assessment & Plan (1) Chest pain: This is a 57 year old F with significant PMH of uncontrolled T2DM, HTN, HLD, Diabetic neuropathy, CKD 3, charcot arthopathy, ALLY intolerant to cpap who presents to [facility] secondary to chest pain that started at 3pm yesterday. In ED there were no ecg changes or troponin elevations, blood pressure was normal on my exam chest pain was reproducible which makes the etiology likely to be musculoskeletal related Patient does have numerous risk factors including uncontrolled T2DM, HTN, HLD, previous tobacco abuser, no Fhx of premature cardiac -admit under observation to rule out ACS/CAD -trend troponin, ecg -echocardiogram in a.m. -A1C, lipid panel in a.m. -consult cardiology to determine if nuclear stress test in patient necessary vs outpatient -treat pain for MSK with ice, APAP ( would avoid nsaids given CKD) (2) Diabetes mellitus, type 2: Uncontrolled, last A1c 13.1 Has not taken insulin in approximately 2 months secondary to unable to afford (she previously was prescribed Novolin 110 units at 7 AM and 60 units at 7 PM Currently taking metformin 500 mg twice daily ( unable to tolerate 1g bid), prescribed victoza but not taking due to cost consult art educator and case management to help with assistance Place on lantus/novolog per protocol (3) Hypertension: Blood pressure stable continue metoprolol, losartan, Lasix (4) Dyslipidemia: Lipid panel in a.m. Continue Crestor and fenofibrate (5) Sleep apnea: Intolerant to CPAP (6) Chronic kidney disease (CKD), stage III (moderate): Baseline creatinine 1.3-1.4 BUN/creatinine at baseline Monitor BMP given significant diuretic use (7) Diabetic neuropathy: -Continue gabapentin and amitriptyline (8) DVT prophylaxis: SCDS Disposition: D/C to home when able Follow up: PCP Dr. Freitas upon discharge Patient was seen and examined in collaboration with Dr. Mcqueen, please see addendum History of Present Illness Chief Complaint: Chest Pain since 3pm yesterday. Primary Care Provider: Kaila Freitas This is a 57 year old F with significant PMH of uncontrolled T2DM, HTN, HLD, Diabetic neuropathy, CKD 3, charcot arthopathy, ALLY intolerant to cpap who presents to [facility] secondary to chest pain that started at 3pm yesterday. She states she was sitting talking to her friend when it started. Pain in substernal, comes and goes, nothing makes it better or worse, never had anything like it in the past, radiates to neck and left shoulder. Not made worse by touching or deep breathing. States she uses a walker/cane to walk for months but hasn't noticed anything pull or pop on her chest. No known injury. Not made worse with food. Does complain of STUBBS but is not acute. Denies recent illness, f/c/s, URI sx, palpitations, n/v/d, abdominal pain, change in bowel or urinary habits. She notes she is usually constipated secondary to narcotics. Denies hemoptysis, hematochezia, hemetemesis. Appetite has been normal. Blood sugars have been all over the place according to the patient. She hasn't been taking insulin for approx 2 months due to inability to afford it. She denies personal history of CAD. Had nuclear stress test many years ago, negative. Denies family history of premature cardiac . Family is at bedside. Allergies Allergy/AdvReac Type Severity Reaction Status Date / Time amoxicillin Allergy Intermediate HIVES Verified 09/16/18 16:44 clavulanic acid Allergy Intermediate HIVES Verified 09/16/18 16:44 lisinopril AdvReac Unknown NAUSEA/VOMI Verified 09/16/18 16:44 TING Home Medications Home Medications Medication Instructions Recorded Confirmed Type amitriptyline 40 mg PO HS 09/16/18 09/16/18 History aspirin 81 mg PO DAILY 09/16/18 09/16/18 History cholecalciferol (vitamin D3) 5,000 units PO DAILY 09/16/18 09/16/18 History [Vitamin D3] fenofibrate nanocrystallized 145 mg PO HS 09/16/18 09/16/18 History furosemide 40 mg PO 4XWK 09/16/18 09/16/18 History furosemide 80 mg PO 3XWK 09/16/18 09/16/18 History gabapentin 600 mg PO TID 09/16/18 09/16/18 History liraglutide [Victoza 2-Dex] 1.8 mg SUBCUT DAILY 09/16/18 09/16/18 History losartan 50 mg PO HS 09/16/18 09/16/18 History magnesium oxide 500 mg PO DAILY 09/16/18 09/16/18 History metformin 500 mg PO BID 09/16/18 09/16/18 History metoprolol tartrate 25 mg PO BID 09/16/18 09/16/18 History rosuvastatin 40 mg PO DAILY 09/16/18 09/16/18 History tramadol 50 mg PO Q6H PRN 09/16/18 09/16/18 History Past Med/Surg History Medical History Diabetes (Chronic) GERD (gastroesophageal reflux disease) (Chronic) Diabetes mellitus, type 2 (Chronic) Hypertension (Chronic) Dyslipidemia (Chronic) Sleep apnea (Chronic) Osteoarthritis (Chronic) Charcot's joint of foot due to diabetes (Chronic) Chronic kidney disease (CKD), stage III (moderate) (Chronic) Diabetic neuropathy (Chronic) Surgical History History of lumpectomy of right breast (Chronic) Status post tonsillectomy (Chronic) Status post tubal ligation (Chronic) Status post colonoscopy (Chronic) "2011- 2 hyperplastic + 1 adenomatous polyps; 2016- normal" Social History Preferred Language: Citizen Of [place] Communication Ability: Effective Beliefs That Will Affect Care: None marital status: Current Living Situation: Family Current Living Situation Comment: reports her son is also in poor health at this time current occupational status: disabled Feels Safe at Home: No Safety Concerns: Feels Safe At This Time Smoking Status: Unknown if ever smoked Hx Alcohol Use: No Hx Substance Use: No Review of Systems All systems reviewed & are unremarkable except as noted in HPI & below Physical Exam Vital Signs (Past 24 Hours): Last Vital Signs Temp 37.0 C 09/16/18 15:10 Pulse 75 09/16/18 17:30 Resp 15 09/16/18 17:30 BP 124/64 09/16/18 17:30 Pulse Ox 95 09/16/18 17:30 Physical Exam: Gen: WD/WN, morbidly obese F, NAD, sitting up in bed, pleasant, conversing easily Head: Normocephalic, Atraumatic Eyes: Sclera normal, no conjunctival injection, PERRLA, EOMI ENT: Gross hearing intact, normal pharynx, mucous membranes moist Neck: supple, no adenopathy, No JVD, no bruit, Resp: Clear to auscultation b/l, no wheeze, rales, rhonchi. Normal insp/exp effort, no accessory muscle use CV: Regular rate, regular rhythm, no murmur, rub, gallop, or ectopy, +tenderness to palpation to LUSB in the intercostal musculature. Pain exacerbated with Adduction of L arm. Pain not worse with deep inhalation Abd: +BS x 4, soft, nontender, nondistended Musculoskeletal: moves extremities active rom x 4, strength intact, good filler spreader strength Extremities: trace edema bilaterally Skin: warm, moist, no rash, negative turgor, cap refill < 2sec, + scabbed over pen point lesion on R pretibial region, no surrouding erythema Neuro: Alert and oriented x 3, speech normal, good mood/affect, cran nerve 2-12 intact grossly : deferred Results & Data Laboratory Results Short CBC 09/16/18 09/16/18 Range/Units 15:28 15:28 WBC 8.86 (4.8-10.8) K/uL Hgb 11.9 L (12.0-16.0) g/dL Hct 34.3 L (37-47) % Plt Count 232 (130-400) K/uL Creatinine 1.36 H (0.6-1.2) mg/dl Troponin I < 0.015 (0-0.045) ng/ml BMP 09/16/18 15:28 Sodium 137 Potassium 4.0 Chloride 100 Carbon Dioxide 28 BUN 32 H Creatinine 1.36 H Glucose 294 H Calcium 9.6 Cardiac Enzymes 09/16/18 Range/Units 15:28 Troponin I < 0.015 (0-0.045) ng/ml Diagnostic Findings CXR: FINDINGS: PA and lateral chest radiographs are obtained. No prior studies are available for comparison at the time of dictation. The cardiomediastinal silhouette is unremarkable. The lungs and pleural spaces are clear. There is no pneumothorax. The bony thorax appears intact. Degenerative change is noted throughout the thoracic spine. Cholecystectomy clips are seen in the upper abdomen. IMPRESSION: No active disease in the chest. Medications Administered Discontinued Medications Aspirin (Aspirin) 324 mg PO NOW STA Stop: 09/16/18 15:23 Last Admin: 09/16/18 15:46 Dose: 324 mg Documented by: [id number] ECG Rate (beats per minute): 78 Rhythm: normal sinus Code Status & VTE Plan Code Status Full Code VTE Prophylaxis Plan VTE Prophylaxis will be ordered: No Supervising Physician Co-Signing Physician Notes I have seen and examined the patient and have discussed the case with the provider above. I agree with the assessment and plan as stated. Strongly recommend insulin only (70/30 or basal/bolus). Metformin and Victoza not needed and add another expense. High risk for CAD in setting of obesity and significantly uncontrolled DMII. Agree with trending serial enzymes. Cards to see in am. DO Richar (1) Chest pain Chest pain type: unspecified Qualified Code(s): R07.9 - Chest pain, unspec ified
--- NOTE | 2018-09-16 18:12 | Emergency Department Note ---
Entered by Sharlene Emmanuel acting as a scribe for Cristobal Hansen History of Present Illness General Chief complaint: Chest Pain Stated complaint: CHEST PAIN Time Seen by Provider: 09/16/18 15:18 Source: patient History of Present Illness Provider complaint: chest pain Onset (ago): day(s) (yesterday at 1500) Location: chest Maximum Pain Intensity: 5 Quality: + other (pain) Associated symptoms: + shortness of breath; no cough The patient is a 57 year old female who presents to the Emergency Room with complaints of chest pain beginning yesterday at 1500. She rates her pain at a 5/10. Her pain is substernal. The patient reports feeling short of breath but denies a cough. She states that she quit smoking 4 years ago. She reports a history of diabetes. She states that she follows with Dr. Gutierrez-Cardiology. The patient denies recent travel and denies exogenous hormone use. No hemoptysis. She also denies a history of cancer. Home Medications Home Medications Medication Instructions Recorded Confirmed Type amitriptyline 40 mg PO HS 09/16/18 09/16/18 History aspirin 81 mg PO DAILY 09/16/18 09/16/18 History cholecalciferol (vitamin D3) 5,000 units PO DAILY 09/16/18 09/16/18 History [Vitamin D3] fenofibrate nanocrystallized 145 mg PO HS 09/16/18 09/16/18 History furosemide 40 mg PO 4XWK 09/16/18 09/16/18 History furosemide 80 mg PO 3XWK 09/16/18 09/16/18 History gabapentin 600 mg PO TID 09/16/18 09/16/18 History liraglutide [Victoza 2-Dex] 1.8 mg SUBCUT DAILY 09/16/18 09/16/18 History losartan 50 mg PO HS 09/16/18 09/16/18 History magnesium oxide 500 mg PO DAILY 09/16/18 09/16/18 History metformin 500 mg PO BID 09/16/18 09/16/18 History metoprolol tartrate 25 mg PO BID 09/16/18 09/16/18 History rosuvastatin 40 mg PO DAILY 09/16/18 09/16/18 History tramadol 50 mg PO Q6H PRN 09/16/18 09/16/18 History Allergies Allergy/AdvReac Type Severity Reaction Status Date / Time amoxicillin Allergy Intermediate HIVES Verified 09/16/18 16:44 clavulanic acid Allergy Intermediate HIVES Verified 09/16/18 16:44 lisinopril AdvReac Unknown NAUSEA/VOMI Verified 09/16/18 16:44 TING Past Med/Surg History Medical History Diabetes (Chronic) GERD (gastroesophageal reflux disease) (Chronic) Diabetes mellitus, type 2 (Chronic) Hypertension (Chronic) Dyslipidemia (Chronic) Sleep apnea (Chronic) Osteoarthritis (Chronic) Charcot's joint of foot due to diabetes (Chronic) Chronic kidney disease (CKD), stage III (moderate) (Chronic) Diabetic neuropathy (Chronic) Surgical History History of lumpectomy of right breast (Chronic) Status post tonsillectomy (Chronic) Status post tubal ligation (Chronic) Status post colonoscopy (Chronic) "2011- 2 hyperplastic + 1 adenomatous polyps; 2016- normal" Social History Preferred Language: [place] Communication Ability: Effective marital status: Current Living Situation: Spouse current occupational status: disabled Feels Safe at Home: Yes Smoking Status: Former smoker Hx Alcohol Use: No Hx Substance Use: No Review of Systems See HPI for pertinent positives & negatives. and A total of 10 systems reviewed and were otherwise negative Physical Exam Vital Signs Vital Signs - 24 hr 09/16/18 15:10 09/16/18 15:20 09/16/18 15:47 Temperature 37.0 C Temperature Source Oral Sepsis Recent Fever Within 48 Hours No Sepsis New/Unexplained Change in Mental Status No Sepsis Action Taken by Nursing No Action Required Pulse Rate 77 75 75 Pulse Rate from SpO2 Sensor 73 Respiratory Rate 20 17 15 Respiratory Effort / Characteristics Non-Labored Spontaneous Respiratory Depth Normal Respiratory Pattern Regular Blood Pressure 112/58 L 138/70 128/77 Blood Pressure Mean 76 92 94 Blood Pressure Position Sitting Pulse Oximetry 98 96 96 Oxygen Delivery Method 09/16/18 15:48 09/16/18 16:01 09/16/18 17:01 Temperature Temperature Source Sepsis Recent Fever Within 48 Hours Sepsis New/Unexplained Change in Mental Status Sepsis Action Taken by Nursing Pulse Rate 74 75 Pulse Rate from SpO2 Sensor 74 75 Respiratory Rate 16 12 Respiratory Effort / Characteristics Respiratory Depth Respiratory Pattern Blood Pressure 126/59 L 117/63 Blood Pressure Mean 81 81 Blood Pressure Position Pulse Oximetry 95 99 98 Oxygen Delivery Method Room Air 09/16/18 17:30 Temperature Temperature Source Sepsis Recent Fever Within 48 Hours Sepsis New/Unexplained Change in Mental Status Sepsis Action Taken by Nursing Pulse Rate 75 Pulse Rate from SpO2 Sensor 75 Respiratory Rate 15 Respiratory Effort / Characteristics Respiratory Depth Respiratory Pattern Blood Pressure 124/64 Blood Pressure Mean 84 Blood Pressure Position Pulse Oximetry 95 Oxygen Delivery Method Room Air GENERAL: She is oriented to person, place, and time. She appears well-developed and well-nourished. She does not appear distressed. ____ HENT: Exam performed. -Head: Normocephalic and atraumatic. - Right Ear: External ear normal. No mastoid tenderness. -Left Ear: External ear normal. No mastoid tenderness. -Mouth/Throat: The oropharynx is clear and moist. No trismus in the jaw. No dental abscesses or uvula swelling. No oropharyngeal exudate or tonsillar abscesses. ____ EYES: Conjunctivae and EOM are normal. Pupils are equal, round, and reactive to light. Right eye exhibits no discharge. Left eye exhibits no discharge. No scleral icterus. ____ NECK: Normal range of motion. Neck supple. No JVD present. No spinous process tenderness present. No carotid bruit present. No rigidity. No tracheal deviation and normal range of motion present. No Brudzinski's sign and no Kernig's sign noted. ____ CV: Normal rate, regular rhythm, normal heart sounds and intact distal pulses. There is no peripheral edema. Palpable radial pulses bue. ____ PULM/CHEST: Effort normal and breath sounds normal. No respiratory distress. No stridor. She has no wheezes. She has no rales. -Chest Wall: She exhibits no tenderness. ____ ABD: Obese. The abdomen is soft. Bowel sounds are normal. She has no distension. No mass is present. There is no tenderness. There is no rebound, no guarding, no Spain's sign and no tenderness at McBurney's point. Rovsig negative MUSC/SKEL: Normal range of motion. There is no peripheral edema, tenderness or deformity. LYMPH: No cervical adenopathy. ____ NEURO: She is alert and oriented to person, place, and time. She has normal str ength. No cranial nerve deficit or sensory deficit. Coordination and gait normal. GCS eye subscore is 4. GCS verbal subscore is 5. GCS motor subscore is 6. cerbellar tests wnl. ____ SKIN: Skin is warm and dry. She is not diaphoretic. ____ PSYCH: She has a normal mood and affect. Her behavior is normal. Judgment and thought content normal. ____ Course 1529: The patient was evaluated in room A3, and a complete history and physical examination were performed. 1631: Vital signs stable. Labs and imaging within normal limits. Patient and family were given options for inpatient observation versus serial troponins and discharged with cardiology follow-up. Both the patient and the family members at bedside state they do not feel comfortable going home and prefer the patient to be admitted for inpatient observation rule out ACS. I discussed the patient's case with Yoli Larose who will evaluate the patient for further management. Consultations Consultation #1: Yoli Larose Time: 16:31 Administered Medications Discontinued Medications Aspirin (Aspirin) 324 mg PO NOW STA Stop: 09/16/18 15:23 Last Admin: 09/16/18 15:46 Dose: 324 mg Documented by: [id number] Medical Decision Making Medical Records Attestation: I reviewed the patient's medical records. Home Medications Current Medication List: was personally reviewed by me Laboratory Data Attestation: I reviewed the patient's lab results. Result diagrams: 09/16/18 15:28 09/16/18 15:28 Lab Results 09/16/18 09/16/18 Range/Units 15:28 15:28 WBC 8.86 (4.8-10.8) K/uL RBC 4.09 L (4.2-5.4) M/uL Hgb 11.9 L (12.0-16.0) g/dL Hct 34.3 L (37-47) % MCV 83.9 (80-100) fL MCH 29.1 (25-34) pg MCHC 34.7 (32-36) g/dL RDW Std Deviation 43.0 (36.4-46.3) fL RDW Coeff of Adelina 14.3 (11.5-14.5) % Plt Count 232 (130-400) K/uL MPV 10.3 (7.4-10.4) fL Immature Gran % (Auto) 0.6 % Neut % (Auto) 56.4 % Lymph % (Auto) 32.8 % [place] % (Auto) 5.6 % Eos % (Auto) 3.7 % Baso % (Auto) 0.9 % Immature Gran # (Auto) 0.05 H (0.00-0.02) K/uL Neut # (Auto) 4.99 (1.4-6.5) K/uL Lymph # (Auto) 2.91 (1.2-3.4) K/uL [place] # (Auto) 0.50 (0.11-0.59) K/uL Eos # (Auto) 0.33 (0-0.5) K/uL Baso # (Auto) 0.08 (0-0.2) K/uL Sodium 137 (136-145) mmol/L Potassium 4.0 (3.5-5.1) mmol/L Chloride 100 (98-107) mmol/L Carbon Dioxide 28 (21-32) mmol/L Anion Gap 9.0 (3-11) BUN 32 H (7-18) mg/dl Creatinine 1.36 H (0.6-1.2) mg/dl Est Cr Clr Drug Dosing 54.6 ml/min Est GFR ( Amer) 49.6 Est GFR (Non-Af Amer) 42.8 BUN/Creatinine Ratio 23.2 H (10-20) Glucose 294 H (70-99) mg/dl Calcium 9.6 (8.5-10.1) mg/dl Troponin I < 0.015 (0-0.045) ng/ml Lipase 221 (73-393) U/L Imaging Data Radiologist's Impression: Radiology results as stated below per my review and the radiologist's interpretation: TWO VIEW CHEST CLINICAL HISTORY: Atypical chest pain. FINDINGS: PA and lateral chest radiographs are obtained. No prior studies are available for comparison at the time of dictation. The cardiomediastinal silhouette is unremarkable. The lungs and pleural spaces are clear. There is no pneumothorax. The bony thorax appears intact. Degenerative change is noted throughout the thoracic spine. Cholecystectomy clips are seen in the upper abdomen. IMPRESSION: No active disease in the chest. Electronically signed by: Albin Dior M.D. 09/16/2018 4:18 PM ECG Data Attestation: I personally reviewed and interpreted this ECG as follows: Indication: chest pain Rate (beats per minute): 78 Rhythm: sinus rhythm Findings: + other (DC, QRS, QTC within normal limits); no ST depression, no ST elevation and no acute ischemic change Blood Pressure Blood Pressure Findings: Normal blood pressure MDM Narrative Vital signs stable. Labs and imaging within normal limits. Patient and family were given options for inpatient observation versus serial troponins and disch arged with cardiology follow-up. Both the patient and the family members at bedside state they do not feel comfortable going home and prefer the patient to be admitted for inpatient observation rule out ACS. I discussed the patient's case with Yoli Larose who will evaluate the patient for further management. Impression & Plan Chest pain Discharge Plan Visit Data Chief Complaint: Chest Pain Stated Complaint: CHEST PAIN ED Provider: Cristobal Hansen Discharge Problem: Chest pain Patient Disposition: Being Evaluated by Hospitalist Forms Stand Alone Forms: Call Back Authorization, My [facility] Prescriptions Prescriptions: No Action losartan 50 mg tablet 50 mg PO HS RF: 0 furosemide 40 mg tablet 40 mg PO 4XWK RF: 0 furosemide 40 mg tablet 80 mg PO 3XWK RF: 0 metformin 500 mg tablet 500 mg PO BID RF: 0 gabapentin 600 mg tablet 600 mg PO TID RF: 0 aspirin 81 mg Tablet,Delayed Release (Dr/Ec) 81 mg PO DAILY RF: 0 tramadol 50 mg tablet 50 mg PO Q6H PRN (Reason: Pain,Mild-Moderate) RF: 0 amitriptyline 10 mg tablet 40 mg PO HS RF: 0 magnesium oxide 500 mg Tablet 500 mg PO DAILY RF: 0 rosuvastatin 40 mg tablet 40 mg PO DAILY RF: 0 metoprolol tartrate 25 mg tablet 25 mg PO BID RF: 0 fenofibrate nanocrystallized 145 mg tablet 145 mg PO HS RF: 0 cholecalciferol (vitamin D3) [Vitamin D3] 5,000 unit Tablet 5,000 units PO DAILY RF: 0 Victoza 2-Dex 0.6 mg/0.1 mL (18 mg/3 mL) Pen Injector 1.8 mg SUBCUT DAILY RF: 0 Referrals Referrals: Kaila Freitas MD [Primary Care Provider] - Discharge Problem: Chest pain Qualifiers: Chest pain type: unspecified Qualified Code(s): R07.9 - Chest pain, unspecified The scribe's documentation has been prepared under my direction and personally reviewed by me in its entirety. I confirm that the note above accurately reflects all work, treatment, procedures, and medical decision making performed by me.
[2018-09-16] MEDS ORDERED: GLUCOSE 10 TABS/TUBE PO PRN (20:58)
[2018-09-16] MEDS ORDERED: POLYETHYLENE (MIRALAX) 17 GM PACK PO PRN (20:58)
[2018-09-16] MEDS ORDERED: DEXTROSE 50% 50 ML SYRINGE IV PRN (20:58)
[2018-09-16] MEDS ORDERED: ALUMINUM/MAGNESIUM SUSP 30 ML UDC PO PRN (20:58)
[2018-09-16] MEDS ORDERED: ONDANSETRON INJ 2 MG/ML 2 ML VIAL IV PRN (20:58)
[2018-09-16] MEDS ORDERED: CARBOHYDRATES FOR HYPOGLYCEMIA PO PRN (20:58)
[2018-09-16] MEDS ORDERED: MAGNESIUM HYDROXIDE SUSP 30 ML UDC PO PRN (20:58)
[2018-09-16] MEDS ORDERED: GLUCAGON FOR INJ 1 MG VIAL SQ PRN (20:58)
[2018-09-16] MEDS ORDERED: GLUCOSE 40% GEL 15 GM TUBE PO PRN (20:58)
[2018-09-16] MEDS ORDERED: AMITRIPTYLINE HCL 10 MG TAB PO SCH (21:00)
[2018-09-16] MEDS ORDERED: FENOFIBRATE NANOCRYSTALLIZED 145 MG TABLET PO SCH (21:00)
[2018-09-16] MEDS ORDERED: LOSARTAN POTASSIUM 50 MG TAB PO SCH (22:00)
[2018-09-16] MEDS ORDERED: MoRPHine SULFATE 2 MG/ML CARP IV PRN (22:52)
[2018-09-16] MEDS: METOPROLOL TARTRATE 25 MG TAB PO SCH (23:17)
[2018-09-16] MEDS: GABAPENTIN 600 MG TAB PO SCH (23:18)
[2018-09-16] MEDS: INSULIN ASPART 100 UNITS/ML 3 ML PEN SC SCH (23:19)
[2018-09-16] MEDS: INSULIN GLARGINE SOLOSTAR 100 UNITS/ML 3 ML PEN SC SCH (23:20)
[2018-09-17 02:32] LABS: Hematocrit (blood only) 31.6 % (37-47); Hemoglobin 10.7 g/dL (12.0-16.0); Mean Corpuscular Hgb Conc 33.9 g/dL (32-36); Mean Corpuscular Volume 83.8 fL (80-100); Mean Platelet Volume 10.2 fL (7.4-10.4); Platelet Count 206 K/uL (130-400); RDW Coefficient of Variation 14.4 % (11.5-14.5); RDW Standard Deviation 43.7 fL (36.4-46.3); Red Blood Count 3.77 M/uL (4.2-5.4); White Blood Count 8.52 K/uL (4.8-10.8)
[2018-09-17 02:48] LABS: BUN Creatinine Ratio 23.4 (10-20); Blood Urea Nitrogen 35 mg/dl (7-18); Calcium 8.9 mg/dl (8.5-10.1); Carbon Dioxide 31 mmol/L (21-32); Chloride 100 mmol/L (98-107); Creatinine Clr Calc Pharmacy 49.2 ml/min; Est GFR (African American) 44.8; Est GFR (Non-African American) 38.6; Glucose 218 mg/dl (70-99); Potassium 3.8 mmol/L (3.5-5.1); Sodium 136 mmol/L (136-145)
[2018-09-17 02:52] LABS: Chol HDL Ratio 3; Cholesterol 105 mg/dl (0-200); HDL Cholesterol 34 mg/dl; Triglycerides 449 mg/dl (0-150); Troponin I < 0.015 ng/ml (0-0.045)
[2018-09-17] MEDS: TRAMADOL HCL 50 MG TABLET PO PRN ×3 (03:57→18:41)
[2018-09-17] MEDS: ACETAMINOPHEN 325 MG TAB PO PRN ×2 (05:26→15:22)
[2018-09-17 07:24] LABS: Estimated Average Glucose 295 mg/dl; Hemoglobin A1C 11.9 % (4.5-5.6)
[2018-09-17] MEDS: GABAPENTIN 600 MG TAB PO SCH ×2 (08:41→13:16)
[2018-09-17] MEDS: METOPROLOL TARTRATE 25 MG TAB PO SCH (08:42)
[2018-09-17] MEDS: INSULIN GLARGINE SOLOSTAR 100 UNITS/ML 3 ML PEN SC SCH (08:43)
[2018-09-17] MEDS: INSULIN ASPART 100 UNITS/ML 3 ML PEN SC SCH ×3 (08:44→17:32)
[2018-09-17] MEDS ORDERED: FUROSEMIDE 40 MG TAB PO SCH (09:00)
[2018-09-17] MEDS ORDERED: ROSUVASTATIN CALCIUM 20 MG TAB PO SCH (09:00)
[2018-09-17] MEDS ORDERED: CHOLECALCIFEROL 1,000 UNITS TAB PO SCH (09:00)
[2018-09-17] MEDS ORDERED: ASPIRIN 81 MG ECTAB PO SCH (09:00)
--- NOTE | 2018-09-17 13:26 | Cardiology Consultation ---
Date of Consultation September 17, 2018 Assessment & Plan (1) Chest pain: 57-year-old female with risk factors listed below presents for evaluation of chest discomfort. Evaluation for acute coronary syndrome initially unremarkable. No significant troponin elevation, ischemic ECG changes, or reg ional wall motion [place] resting 2D transthoracic echocardiogram. Blood pressure and heart rate within acceptable range. No signs/symptoms of decompensated congestive heart failure. Recommend dobutamine stress echocardiography for further evaluation. (2) Hypertension: Controlled. (3) Dyslipidemia: Continue high intensity statin therapy and fenofibrate. (4) Diabetes: Management per internal medicine. History of Present Illness Attending Physician: Therese Pemberton MD History of Present Illness Patient seen and examined at the bedside. Reports episode of chest discomfort yesterday while seated. Describes a stabbing sensation as well as a pressure. The pain radiated to her left shoulder. Mild dyspnea noted. No nausea, vomiting, lightheadedness, dizziness, syncope, or near syncope. Denies any palpitations. No recent orthopnea or paroxysmal nocturnal dyspnea. Reports chronic lower extremity edema which is unchanged. Cardiac risk factors as listed below. ECG on admission without ischemic changes. Resting 2D transthoracic echocardiogram demonstrates normal wall motion and preserved LV systolic function. No dysrhythmias per review of telemetry. Patient currently resting comfortably. Denies recurrent chest pain since admission. and son are at bedside. They offer no additional concerns/complaints at this time. Allergies Allergy/AdvReac Type Severity Reaction Status Date / Time amoxicillin Allergy Intermediate HIVES Verified 09/16/18 16:44 clavulanic acid Allergy Intermediate HIVES Verified 09/16/18 16:44 lisinopril AdvReac Unknown NAUSEA/VOMI Verified 09/16/18 16:44 TING Home Medications Home Medications Medication Instructions Recorded Confirmed Type amitriptyline 40 mg PO HS 09/16/18 09/16/18 History aspirin 81 mg PO DAILY 09/16/18 09/16/18 History cholecalciferol (vitamin D3) 5,000 units PO DAILY 09/16/18 09/16/18 History [Vitamin D3] fenofibrate nanocrystallized 145 mg PO HS 09/16/18 09/16/18 History furosemide 40 mg PO 4XWK 09/16/18 09/16/18 History furosemide 80 mg PO 3XWK 09/16/18 09/16/18 History gabapentin 600 mg PO TID 09/16/18 09/16/18 History liraglutide [Victoza 2-Dex] 1.8 mg SUBCUT DAILY 09/16/18 09/16/18 History losartan 50 mg PO HS 09/16/18 09/16/18 History magnesium oxide 500 mg PO DAILY 09/16/18 09/16/18 History metformin 500 mg PO BID 09/16/18 09/16/18 History metoprolol tartrate 25 mg PO BID 09/16/18 09/16/18 History rosuvastatin 40 mg PO DAILY 09/16/18 09/16/18 History tramadol 50 mg PO Q6H PRN 09/16/18 09/16/18 History Patient History Medical History Diabetes (Chronic) GERD (gastroesophageal reflux disease) (Chronic) Diabetes mellitus, type 2 (Chronic) Hypertension (Chronic) Dyslipidemia (Chronic) Sleep apnea (Chronic) Osteoarthritis (Chronic) Charcot's joint of foot due to diabetes (Chronic) Chronic kidney disease (CKD), stage III (moderate) (Chronic) Diabetic neuropathy (Chronic) Surgical History History of lumpectomy of right breast (Chronic) Status post tonsillectomy (Chronic) Status post tubal ligation (Chronic) Status post colonoscopy (Chronic) "2011- 2 hyperplastic + 1 adenomatous polyps; 2016- normal" Family History Mother Rheumatoid arthritis Father Emphysema of lung Social History Preferred Language: Indonesian Communication Ability: Effective Beliefs That Will Affect Care: None marital status: Current Living Situation: Family Current Living Situation Comment: reports her son is also in poor health at this time current occupational status: disabled Feels Safe at Home: No Safety Concerns: Feels Safe At This Time Smoking Status: Unknown if ever smoked Hx Alcohol Use: No Hx Substance Use: No Review of Systems Pertinent positives noted per HPI, comprehensive 10 system review otherwise negative. Physical Exam Vital Signs (Past 24 Hours): Last Vital Signs Temp 36.5 C 09/17/18 11:41 Pulse 67 09/17/18 11:41 Resp 18 09/17/18 11:41 BP 118/76 09/17/18 11:41 Pulse Ox 99 09/17/18 11:41 Physical Exam: General: NAD, AAO x3, well nourished. Obese. HEENT: Normocephalic. Atraumatic. Conjunctiva pink, no scleral icterus. Neck: No carotid bruits, the carotid upstrokes are brisk. No JVD. No HJR Heart: Regular normal S-1 and S-2 no S-3 or S-4 gallop. No murmurs or rub appreciated. PMI is not displaced. No RV heave. Lungs: Clear bilateral without rales , rhonchi, or wheeze. Abdomen: Normal bowel sounds. Soft. Nontender. No masses or organomegaly. No abdominal bruits. Extremities: 2+ bilateral pitting pedal and ankle edema. No clubbing or cyanosis. Pulses: radial=2/4, Dorsalis pedis =2/4. Neuro: Cranial nerves grossly intact. No focal motor deficit. (1) Chest pain Chest pain type: unspecified Qualified Code(s): R07.9 - Chest pain, unspecified (2) Hypertension Hypertension type: essential hypertension Qualified Code(s): I10 - Essential (primary) hypertension (3) Diabetes Diabetes mellitus type: type 2 Diabetes mellitus complication status: with neurologic complications Diabetes mellitus complication detail: with unspecified neuropathy Diabetes mellitus detention insulin use: without detention use Qualified Code(s): E11.40 - Type 2 diabetes mellitus with diabetic neuropathy, unspecified
[2018-09-17] MEDS ORDERED: ATROPINE SULFATE 0.1 MG/ML 10ML SYR IV ONE (14:12)
[2018-09-17] MEDS ORDERED: DOBUTamine HCL 12.5 MG/ML 20 ML VIAL IV ONE (14:12)
[2018-09-17] MEDS ORDERED: METOPROLOL TARTRATE 1 MG/ML VIAL IV ONE (14:12)
[2018-09-17] MEDS ORDERED: PERFLUTREN LIPID MICROSPHERE (DEFINITY) IV ONE (14:58)
--- NOTE | 2018-09-17 17:10 | Ultrasound Report ---
US venous doppler LE RT CLINICAL HISTORY: 57 years-old Female presenting with right calf pain. TECHNIQUE: Real-time grayscale and color and spectral Doppler ultrasound imaging of the veins of the right lower extremity was performed. Compression and augmentation were also utilized. COMPARISON: 08/30/2016. FINDINGS: RIGHT: Common femoral vein: Patent. Greater saphenous vein (superficial): Patent. Deep femoral vein: Patent. Femoral vein: Patent. Popliteal vein: Patent. Calf veins: Limited visualization secondary to subcutaneous edema. Other: None. IMPRESSION: No evidence of deep venous thrombosis allowing for limited visualization of lower leg veins. Electronically signed by: Daniele Avila M.D. 09/17/2018 5:08 PM
--- NOTE | 2018-09-17 18:49 | Hospitalist Progress Note ---
Date of Service September 17, 2018 Assessment & Plan (1) Chest pain: Present on admission with chest pain Troponin x3 negative EKG showed no ischemic changes Dobutamine stress echo done was negative for ischemia ECHO showed no wall motion abnormality with EF 55-60% Case discussed with cardiology and no further cardiac testing at this time Continue aspirin, statin and metoprolol Ok from cardiology standpoint to discharge home (2) Diabetes mellitus, type 2: Uncontrolled DM Recent Hba1c 11.9 Has not taken insulin in approximately 2 months secondary to unable to afford (she previously was prescribed Novolin 110 units at 7 AM and 60 units at 7 PM Currently taking metformin 500 mg twice daily ( unable to tolerate 1g bid), prescribed victoza but not taking due to cost nursing educator and case management to help with assistance (Completed form for life systained medication) Pt said that she usually gets the insulin at [facility] over the count. She said that she might be able to buy the insulin in 2 to 3 weeks Will give her the remain lantus solostar pen that was given in the hospital Will do lantus 10unit BID for now and titrate if needed by PCP Follow up with PCP on 09/23 and bring BS log at next appt with PCP If she does not get any assistance to get her insulin, will recommend pcp to start on 70/30 humulin at [facility] for cheaper (3) Hypertension: Blood pressure stable continue metoprolol, losartan, Lasix (4) Dyslipidemia: Continue Crestor and fenofibrate (5) Sleep apnea: Intolerant to CPAP (6) Chronic kidney disease (CKD), stage III (moderate): Baseline creatinine 1.3-1.4 Creatinine 1.4 today Check BMP within 1 week (7) Diabetic neuropathy: Continue gabapentin and amitriptyline Right Calf Pain Had a small wound in right leg Was treated for cellulitis recently with abx Complain of right calf pain Doppler of RLE showed no evidence for DVT Keep wound area clean apply bacitracin BID (8) DVT prophylaxis: SCDS Disposition Discharge home today Follow up with your primary care provider Dr. Freitas on 09/23 @ 2:20 PM Subjective Pt was seen and examined Sitting at the edge of the bed with no distress Pt said that she feels fine She already got dressed and ready to go home She denies any chest pain, palpitation, dizziness and SOB Physical Exam Vital Signs (Past 24 Hours): Last Vital Signs Temp 36.4 C L 09/17/18 12:00 Pulse 80 09/17/18 15:34 Resp 18 09/17/18 12:00 BP 147/62 H 09/17/18 12:00 Pulse Ox 90 09/17/18 12:00 Physical Exam: General- No acute distress Head- atraumatic Eyes- PERRL, EOMI, ENT- oropharynx clear Neck- supple, no JVD Lungs- clear to auscultation Heart- regular rhythm; no murmur Abdomen- normal bowel sounds, soft, nontender Extremities- right calf tenderness, +edema Neuro- alert, oriented x 3; PERRL, EOMI; no facial palsy; no dysarthria Skin- warm & dry (1) Chest pain Chest pain type: unspecified Qualified Code(s): R07.9 - Chest pain, unspecified (2) Hypertension Hypertension type: essential hypertension Qualified Code(s): I10 - Essential (primary) hypertension
[2018-09-18] MEDS ORDERED: FUROSEMIDE 40 MG TAB PO SCH (09:00)
--- NOTE | 2018-09-19 08:52 | Discharge Summary ---
Date of Service September 17, 2018 Admission HPI Per Admitting Provider This is a 57 year old F with significant PMH of uncontrolled T2DM, HTN, HLD, Diabetic neuropathy, CKD 3, charcot arthopathy, ALLY intolerant to cpap who presents to [facility] secondary to chest pain that started at 3pm yesterday. She states she was sitting talking to her friend when it started. Pain in substernal, comes and goes, nothing makes it better or worse, never had anything like it in the past, radiates to neck and left shoulder. Not made worse by touching or deep breathing. States she uses a walker/cane to walk for months but hasn't noticed anything pull or pop on her chest. No known injury. Not made worse with food. Does complain of STUBBS but is not acute. Denies recent illness, f/c/s, URI sx, palpitations, n/v/d, abdominal pain, change in bowel or urinary habits. She notes she is usually constipated secondary to narcotics. Denies hemoptysis, hematochezia, hemetemesis. Appetite has been normal. Blood sugars have been all over the place according to the patient. She hasn't been taking insulin for approx 2 months due to inability to afford it. She denies personal history of CAD. Had nuclear stress test many years ago, negative. Denies family history of premature cardiac . Family is at bedside. Admission Exam Per Admitting Provider Gen: WD/WN, morbidly obese F, NAD, sitting up in bed, pleasant, conversing e asily Head: Normocephalic, Atraumatic Eyes: Sclera normal, no conjunctival injection, PERRLA, EOMI ENT: Gross hearing intact, normal pharynx, mucous membranes moist Neck: supple, no adenopathy, No JVD, no bruit, Resp: Clear to auscultation b/l, no wheeze, rales, rhonchi. Normal insp/exp effort, no accessory muscle use CV: Regular rate, regular rhythm, no murmur, rub, gallop, or ectopy, +tenderness to palpation to LUSB in the intercostal musculature. Pain exacerbated with Adduction of L arm. Pain not worse with deep inhalation Abd: +BS x 4, soft, nontender, nondistended Musculoskeletal: moves extremities active rom x 4, strength intact, good band booker strength Extremities: trace edema bilaterally Skin: warm, moist, no rash, negative turgor, cap refill < 2sec, + scabbed over pen point lesion on R pretibial region, no surrouding erythema Neuro: Alert and oriented x 3, speech normal, good mood/affect, cran nerve 2-12 intact grossly : deferred Principal Diagnosis Chest pain Uncontrolled type 2 Diabetes CKD stage 3 Hypertension Discharge Exam General- No acute distress Head- atraumatic Eyes- PERRL, EOMI, ENT- oropharynx clear Neck- supple, no JVD Lungs- clear to auscultation Heart- regular rhythm; no murmur Abdomen- normal bowel sounds, soft, nontender Extremities- right calf tenderness, +edema Neuro- alert, oriented x 3; PERRL, EOMI; no facial palsy; no dysarthria Skin- warm & dry Discharge Data Allergies Allergy/AdvReac Type Severity Reaction Status Date / Time amoxicillin Allergy Intermediate HIVES Verified 09/16/18 16:44 clavulanic acid Allergy Intermediate HIVES Verified 09/16/18 16:44 lisinopril AdvReac Unknown NAUSEA/VOMI Verified 09/16/18 16:44 TING Consultations 09/16/18 16:33 ED Decision to Admit Stat 09/16/18 20:58 Consult Cardiology Routine Consult Case Management - Discharge Planning Routine Ordered Studies 09/17/18 16:18 US venous doppler LE RT Urgent US venous doppler LE RT CLINICAL HISTORY: 57 years-old Female presenting with right calf pain. TECHNIQUE: Real-time grayscale and color and spectral Doppler ultrasound imaging of the veins of the right lower extremity was performed. Compression and augmentation were also utilized. COMPARISON: 08/30/2016. FINDINGS: RIGHT: Common femoral vein: Patent. Greater saphenous vein (superficial): Patent. Deep femoral vein: Patent. Femoral vein: Patent. Popliteal vein: Patent. Calf veins: Limited visualization secondary to subcutaneous edema. Other: None. IMPRESSION: No evidence of deep venous thrombosis allowing for limited visualization of lower leg veins. Electronically signed by: Daniele Avila M.D. 09/17/2018 5:08 PM Dictated: 09/17/181707 Transcribed: 09/17/181707 TWO VIEW CHEST CLINICAL HISTORY: Atypical chest pain. FINDINGS: PA and lateral chest radiographs are obtained. No prior studies are available for comparison at the time of dictation. The cardiomediastinal silhouette is unremarkable. The lungs and pleural spaces are clear. There is no pneumothorax. The bony thorax appears intact. Degenerative change is noted throughout the thoracic spine. Cholecystectomy clips are seen in the upper abdomen. IMPRESSION: No active disease in the chest. Electronically signed by: Albin Dior M.D. 09/16/2018 4:18 PM Dictated: 09/16/18 1618 Transcribed: 09/16/18 1618 Hospital Course (1) Chest pain: Present on admission with chest pain Troponin x3 negative EKG showed no ischemic changes Dobutamine stress echo done was negative for ischemia ECHO showed no wall motion abnormality with EF 55-60% Case discussed with cardiology and no further cardiac testing at this time Continue aspirin, statin and metoprolol Ok from cardiology standpoint to discharge home (2) Diabetes mellitus, type 2: Uncontrolled DM Recent Hba1c 11.9 Has not taken insulin in approximately 2 months secondary to unable to afford (she previously was prescribed Novolin 110 units at 7 AM and 60 units at 7 PM Currently taking metformin 500 mg twice daily ( unable to tolerate 1g bid), prescribed victoza but not taking due to cost bag maker and case management to help with assistance (Completed form for life systained medication) Pt said that she usually gets the insulin at [facility] over the count. She said that she might be able to buy the insulin in 2 to 3 weeks Will give her the remain lantus solostar pen that was given in the hospital Will do lantus 10unit BID for now and titrate if needed by PCP Follow up with PCP on 09/23 and bring BS log at next appt with PCP If she does not get any assistance to get her insulin, will recommend pcp to start on 70/30 humulin at [facility] for cheaper (3) Hypertension: Blood pressure stable continue metoprolol, losartan, Lasix (4) Dyslipidemia: Continue Crestor and fenofibrate (5) Sleep apnea: Intolerant to CPAP (6) Chronic kidney disease (CKD), stage III (moderate): Baseline creatinine 1.3-1.4 Creatinine 1.4 today Check BMP within 1 week (7) Diabetic neuropathy: Continue gabapentin and amitriptyline Right Calf Pain Had a small wound in right leg Was treated for cellulitis recently with abx Complain of right calf pain Doppler of RLE showed no evidence for DVT Keep wound area clean apply bacitracin BID (8) DVT prophylaxis: SCDS Disposition Discharge home today Follow up with your primary care provider Dr. Freitas on 09/23 @ 2:20 PM Total Time Total Time Spent Total Time Spent (In Minutes): 35 minutes Total Time Includes: Examination of the Patient, Discharge Planning, Medication Reconciliation, Communication With Other Providers and Other Discharge Plan Discharge Items Patient Disposition: Home - Self-Care Reason For Visit: CHEST PAIN Discharge Diagnosis: Chest pain Uncontrolled type 2 Diabetes CKD stage 3 Hypertension Discharge Goals: Decrease discomfort, Diagnostic testing, Improve disease control and Increase independence Activity: Resume your previous activity Activity Comment: as tolerated Non-emergency contact: Primary Care Provider Call non-emergency contact if: you have any medication questions, your temperature is above 101, your wound has increased redness, your wound has increased drainage and your wound pain has increased Follow-up/Referrals: Kaila Freitas MD [Primary Care Provider] - Diet: Carb Consistent or DM2 Addtl Provider Instructions: Follow up with your primary care provider Dr. Freitas on 09/23 @ 2:20PM Monitor your blood sugar (she does not need any script for lancet and test strips because she can get it for cheaper over the counter at [facility]) Bring your blood sugar log at your next appointment with your provider Your provider will need to adjust your insulin if you don't get approved for assistance with medications, you physician can try to manage your blood sugar with the insulin selling at [facility] (cheaper option) Check your BMP in 1 week to monitor your kidney function and electrolytes Fall precaution Follow a healthy diabetes diet and limited concentrated sweet intake OK to give the remaining insulin supply (lantus solostar pen take 10 units subq twice a day) Keep the small wound in the right lower extremity clean and notify your physician if you develop any redness or drainage. Prescriptions: New Lantus Solostar U-100 Insulin 100 unit/mL (3 mL) Insulin Pen 10 unit SC BID Qty: 15 RF: 0 Continued losartan 50 mg tablet 50 mg PO HS RF: 0 furosemide 40 mg tablet 40 mg PO 4XWK RF: 0 furosemide 40 mg tablet 80 mg PO 3XWK RF: 0 metformin 500 mg tablet 500 mg PO BID RF: 0 gabapentin 600 mg tablet 600 mg PO TID RF: 0 aspirin 81 mg Tablet,Delayed Release (Dr/Ec) 81 mg PO DAILY RF: 0 tramadol 50 mg tablet 50 mg PO Q6H PRN (Reason: Pain,Mild-Moderate) RF: 0 amitriptyline 10 mg tablet 40 mg PO HS RF: 0 magnesium oxide 500 mg Tablet 500 mg PO DAILY RF: 0 rosuvastatin 40 mg tablet 40 mg PO DAILY RF: 0 metoprolol tartrate 25 mg tablet 25 mg PO BID RF: 0 fenofibrate nanocrystallized 145 mg tablet 145 mg PO HS RF: 0 cholecalciferol (vitamin D3) [Vitamin D3] 5,000 unit Tablet 5,000 units PO DAILY RF: 0 Victoza 2-Dex 0.6 mg/0.1 mL (18 mg/3 mL) Pen Injector 1.8 mg SUBCUT DAILY RF: 0 Stand-Alone Forms: Call Back Authorization, Pending Sale To [facility] Discharge Orders: Discharge Order (Routine); Ordered 09/17/18 Ordered By: Therese Pemberton Admission Data Admit Date/Time: 09/16/18 16:57 Attending Provider: Therese Pemberton Admit Provider: Lorena Mcqueen Primary Care Provider: Kaila Freitas Other Providers: Ruddy Sosa Sabrina M Service: Telemetry Medical Other Interventions: Discharge Summary Assessment (RN) Last Done: 09/17/18 19:56 DC Date/Time DO NOT enter until pt leaves facility: 09/17/18 20:16
--- NOTE | 2018-09-19 08:58 | Discharge Summary ---
Date of Service September 19, 2018 Admission HPI Per Admitting Provider This is a 57 year old F with significant PMH of uncontrolled T2DM, HTN, HLD, Diabetic neuropathy, CKD 3, charcot arthopathy, ALLY intolerant to cpap who presents to [facility] secondary to chest pain that started at 3pm yesterday. She states she was sitting talking to her friend when it started. Pain in substernal, comes and goes, nothing makes it better or worse, never had anything like it in the past, radiates to neck and left shoulder. Not made worse by touching or deep breathing. States she uses a walker/cane to walk for months but hasn't noticed anything pull or pop on her chest. No known injury. Not made worse with food. Does complain of STUBBS but is not acute. Denies recent illness, f/c/s, URI sx, palpitations, n/v/d, abdominal pain, change in bowel or urinary habits. She notes she is usually constipated secondary to narcotics. Denies hemoptysis, hematochezia, hemetemesis. Appetite has been normal. Blood sugars have been all over the place according to the patient. She hasn't been taking insulin for approx 2 months due to inability to afford it. She denies personal history of CAD. Had nuclear stress test many years ago, negative. Denies family history of premature cardiac . Family is at bedside. Discharge Data Allergies Allergy/AdvReac Type Severity Reaction Status Date / Time amoxicillin Allergy Intermediate HIVES Verified 09/16/18 16:44 clavulanic acid Allergy Intermediate HIVES Verified 09/16/18 16:44 lisinopril AdvReac Unknown NAUSEA/VOMI Verified 09/16/18 16:44 TING Consultations 09/16/18 16:33 ED Decision to Admit Stat 09/16/18 20:58 Consult Cardiology Routine Consult Case Management - Discharge Planning Routine Ordered Studies 09/17/18 16:18 US venous doppler LE RT Urgent Hospital Course (1) Chest pain: Present on admission with chest pain Troponin x3 negative EKG showed no ischemic changes Dobutamine stress echo done was negative for ischemia ECHO showed no wall motion abnormality with EF 55-60% Case discussed with cardiology and no further cardiac testing at this time Continue aspirin, statin and metoprolol Ok from cardiology standpoint to discharge home (2) Diabetes mellitus, type 2: Uncontrolled DM Recent Hba1c 11.9 Has not taken insulin in approximately 2 months secondary to unable to afford (she previously was prescribed Novolin 110 units at 7 AM and 60 units at 7 PM Currently taking metformin 500 mg twice daily ( unable to tolerate 1g bid), prescribed victoza but not taking due to cost clinical informatics educator and case management to help with assistance (Completed form for life systained medication) Pt said that she usually gets the insulin at [facility] over the count. She said that she might be able to buy the insulin in 2 to 3 weeks Will give her the remain lantus solostar pen that was given in the hospital Will do lantus 10unit BID for now and titrate if needed by PCP Follow up with PCP on 09/23 and bring BS log at next appt with PCP If she does not get any assistance to get her insulin, will recommend pcp to start on 70/30 humulin at [facility] for cheaper (3) Hypertension: Blood pressure stable continue metoprolol, losartan, Lasix (4) Dyslipidemia: Continue Crestor and fenofibrate (5) Sleep apnea: Intolerant to CPAP (6) Chronic kidney disease (CKD), stage III (moderate): Baseline creatinine 1.3-1.4 Creatinine 1.4 today Check BMP within 1 week (7) Diabetic neuropathy: Continue gabapentin and amitriptyline Right Calf Pain Had a small wound in right leg Was treated for cellulitis recently with abx Complain of right calf pain Doppler of RLE showed no evidence for DVT Keep wound area clean apply bacitracin BID (8) DVT prophylaxis: SCDS Disposition Discharge home today Follow up with your primary care provider Dr. Freitas on 09/23 @ 2:20 PM Discharge Plan Discharge Items Patient Disposition: Home - Self-Care Reason For Visit: CHEST PAIN Discharge Diagnosis: Chest pain Uncontrolled type 2 Diabetes CKD stage 3 Hypertension Discharge Goals: Decrease discomfort, Diagnostic testing, Improve disease control and Increase independence Activity: Resume your previous activity Activity Comment: as tolerated Non-emergency contact: Primary Care Provider Call non-emergency contact if: you have any medication questions, your temperature is above 101, your wound has increased redness, your wound has increased drainage and your wound pain has increased Follow-up/Referrals: Kaila Freitas MD [Primary Care Provider] - Diet: Carb Consistent or DM2 Addtl Provider Instructions: Follow up with your primary care provider Dr. Freitas on 09/23 @ 2:20PM Monitor your blood sugar (she does not need any script for lancet and test strips because she can get it for cheaper over the counter at [facility]) Bring your blood sugar log at your next appointment with your provider Your provider will need to adjust your insulin if you don't get approved for assistance with medications, you physician can try to manage your blood sugar with the insulin selling at [facility] (cheaper option) Check your BMP in 1 week to monitor your kidney function and electrolytes Fall precaution Follow a healthy diabetes diet and limited concentrated sweet intake OK to give the remaining insulin supply (lantus solostar pen take 10 units subq twice a day) Keep the small wound in the right lower extremity clean and notify your physician if you develop any redness or drainage. Prescriptions: New Lantus Solostar U-100 Insulin 100 unit/mL (3 mL) Insulin Pen 10 unit SC BID Qty: 15 RF: 0 Continued losartan 50 mg tablet 50 mg PO HS RF: 0 furosemide 40 mg tablet 40 mg PO 4XWK RF: 0 furosemide 40 mg tablet 80 mg PO 3XWK RF: 0 metformin 500 mg tablet 500 mg PO BID RF: 0 gabapentin 600 mg tablet 600 mg PO TID RF: 0 aspirin 81 mg Tablet,Delayed Release (Dr/Ec) 81 mg PO DAILY RF: 0 tramadol 50 mg tablet 50 mg PO Q6H PRN (Reason: Pain,Mild-Moderate) RF: 0 amitriptyline 10 mg tablet 40 mg PO HS RF: 0 magnesium oxide 500 mg Tablet 500 mg PO DAILY RF: 0 rosuvastatin 40 mg tablet 40 mg PO DAILY RF: 0 metoprolol tartrate 25 mg tablet 25 mg PO BID RF: 0 fenofibrate nanocrystallized 145 mg tablet 145 mg PO HS RF: 0 cholecalciferol (vitamin D3) [Vitamin D3] 5,000 unit Tablet 5,000 units PO DAILY RF: 0 Victoza 2-Dex 0.6 mg/0.1 mL (18 mg/3 mL) Pen Injector 1.8 mg SUBCUT DAILY RF: 0 Stand-Alone Forms: Call Back Authorization, [facility] Discharge Orders: Discharge Order (Routine); Ordered 09/17/18 Ordered By: Therese Pemberton Admission Data Admit Date/Time: 09/16/18 16:57 Attending Provider: Therese Pemberton Admit Provider: Lorena Mcqueen Primary Care Provider: Kaila Freitas Other Providers: Ruddy Sosa ; Lorena Mcqueen Service: Telemetry Medical Other Interventions: Discharge Summary Assessment (RN) Last Done: 09/17/18 19:56 DC Date/Time DO NOT enter until pt leaves facility: 09/17/18 20:16
== END 2018-09-17 20:16 | disposition home or self-care (01) ==
LOC: 2N 15:01 → ED 15:01 → 2N 20:27
DX: R07.9 Chest pain, unspecified; E66.01 Morbid (severe) obesity due to excess calories; Z88.8 Allergy status to other drugs, medicaments and biological substances; G47.30 Sleep apnea, unspecified; E78.5 Hyperlipidemia, unspecified; E11.40 Type 2 diabetes mellitus with diabetic neuropathy, unspecified; I12.9 Hypertensive chronic kidney disease with stage 1 through stage 4 chronic kidney disease, or unspecified chronic kidney disease; Z79.84 Long term (current) use of oral hypoglycemic drugs; Z79.82 Long term (current) use of aspirin; Z87.891 Personal history of nicotine dependence; M19.90 Unspecified osteoarthritis, unspecified site; N18.3 Chronic kidney disease, stage 3 (moderate); Z88.1 Allergy status to other antibiotic agents; E11.618 Type 2 diabetes mellitus with other diabetic arthropathy; E11.65 Type 2 diabetes mellitus with hyperglycemia; Z68.42 Body mass index [BMI] 45.0-49.9, adult; Z79.899 Other long term (current) drug therapy; K21.9 Gastro-esophageal reflux disease without esophagitis

== ENCOUNTER 2019-06-24 14:54 | Inpatient (IN) ==
[2019-06-24] MEDS ORDERED: metroNIDAZOLE 500 MG/100 ML BAG IV STA (15:39)
[2019-06-24] MEDS ORDERED: CEFEPIME 2,000 MG/12.5 ML VIAL IV STA (15:39)
[2019-06-24] MEDS ORDERED: SODIUM CHLORIDE 0.9% 1000ML 1,000 ML IV ONE (15:42)
--- NOTE | 2019-06-24 16:00 | XRay Report ---
XR foot LT min 3V routine CLINICAL HISTORY: L FOOT/LEG INFECTION COMPARISON: None. DISCUSSION: The bones are osteopenic. No acute fractures are visualized. Degenerative changes are pre sent within the midfoot. There is Achilles insertional spurring and plantar calcaneal spurring. No de structive lesions are visualized. There is no evidence for soft tissue gas. IMPRESSION: 1. No acute fractures 2. Degenerative change 3. No conventional radiographic evidence of acute osteomyelitis ACT 112: Negative or not required by law. Electronically signed by: Sav Hdz M.D. 06/24/2019 3:58 PM
--- NOTE | 2019-06-24 16:19 | Emergency Department Note ---
History of Present Illness General Chief complaint: Wound Recheck Stated complaint: RECHECK LEFT LEG Time Seen by Provider: 06/24/19 15:21 History of Present Illness Maximum Pain Intensity: 7 58-year-old female who presents the emergency department with complaint of worsening infection and pain in her left leg and foot. The patient reports that she was here twice over the past week for the infection. The patient received IV Dalvance 6 days ago, and was here 3 days ago with no significant improvement of her condition. She elected to go home and return today for evaluation. The patient reports that she now has open wounds on her foot that are draining. She also reports that the redness on the upper leg is spreading upward with worsening pain. She has not had any fever or chills. The patient denies any preceding skin injuries or puncture wounds. The patient reports that her infection started a little over 2 weeks ago. She denies any prior history of antibiotic resistant infections. Home Medications Home Medications Medication Instructions Recorded Confirmed Type cholecalciferol (vitamin D3) 5,000 units PO QAM 09/16/18 06/24/19 History [Vitamin D3] furosemide 40 mg PO 4XWK 09/16/18 06/24/19 History furosemide 80 mg PO 3XWK 09/16/18 06/24/19 History gabapentin 600 mg PO TID 09/16/18 06/24/19 History losartan 50 mg PO HS 09/16/18 06/24/19 History magnesium oxide 500 mg PO QAM 09/16/18 06/24/19 History metoprolol tartrate 25 mg PO BID 09/16/18 06/24/19 History insulin regular human [Novolin R 70 unit SUBCUT TID 01/15/19 06/24/19 History Regular U-100 Insuln] rosuvastatin 40 mg PO QAM 01/15/19 06/24/19 History acetaminophen [Tylenol Extra 1,000 mg PO Q6H PRN 06/18/19 06/24/19 History Strength] ciprofloxacin HCl 500 mg PO BID #14 tab 06/18/19 06/24/19 Rx aspirin 81 mg PO QAM 06/24/19 06/24/19 History docusate sodium [Stool Softener] 100 mg PO BID 06/24/19 06/24/19 History insulin degludec [Tresiba 110 unit SUBCUT HS 06/24/19 06/24/19 History FlexTouch U-200] metformin 500 mg PO BID 06/24/19 06/24/19 History tramadol 50 mg PO Q6H PRN 06/24/19 06/24/19 History Allergies Allergy/AdvReac Type Severity Reaction Status Date / Time amoxicillin Allergy Intermediate HIVES Verified 06/24/19 15:59 clavulanic acid Allergy Intermediate HIVES Verified 06/24/19 15:59 lisinopril AdvReac Unknown NAUSEA/VOMI Verified 06/24/19 15:59 TING Past Med/Surg History Medical History Charcot's joint of foot due to diabetes (Chronic) Chronic kidney disease (CKD), stage III (moderate) (Chronic) Diabetes mellitus, type 2 (Chronic) Diabetic neuropathy (Chronic) Dyslipidemia (Chronic) GERD (gastroesophageal reflux disease) (Chronic) Hypertension (Chronic) Morbid obesity Osteoarthritis (Chronic) Sleep apnea (Chronic) Surgical History History of lumpectomy of right breast (Chronic) Hx of hand surgery RIGHT HAND Status post colonoscopy (Chronic) "2012- 2 hyperplastic + 1 adenomatous polyps; 2016- normal" Status post tonsillectomy (Chronic) Status post tubal ligation (Chronic) Family History Mother Rheumatoid arthritis Father Emphysema of lung Peripheral artery disease Social History Preferred Language: Gabonese Communication Ability: Effective Application Security Consultant Required: No Beliefs That Will Affect Care: None marital status: Current Living Situation: Spouse Current Living Situation Comment: reports her son is also in poor health at this time current occupational status: disabled other: previous [facility] [employer] Feels Safe at Home: Yes Smoking Status: Former smoker Cigarettes Per Day: 1.5-2ppd ; Smoking End Date: 2014 ; Second Hand Exposure: No ; Hx Alcohol Use: No Hx Substance Use: No Review of Systems 10 system review was performed and was negative except for pertinent positives and negatives as indicated in history of present illness Physical Exam Vital Signs Vital Signs - 24 hr 06/24/19 15:11 06/24/19 16:00 Temperature 36.6 C Temperature Source Oral Pulse Rate 67 Pulse Rate [Right Finger] 74 Respiratory Rate 16 Blood Pressure 120/77 Blood Pressure [Left Arm] 138/60 Blood Pressure Mean 91 Blood Pressure Mean [Left Arm] 86 Pulse Oximetry 100 Oxygen Delivery Method Room Air Sepsis Recent Fever Within 48 Hours No Sepsis Action Taken by Nursing No Action Required CONSTITUTIONAL: Healthy and well nourished. Alert and oriented X 3. Patient appears in mild discomfort. HEENT: Normocephalic, atraumatic. Pupils equal, round and reactive. No scleral icterus or conjunctival injection/pallor. NECK: Full active range of motion without discomfort. LYMPHATICS: No cervical chain adenopathy. RESPIRATORY: Clear to auscultation bilaterally with no wheezing, crackles, rhonchi or stridor. CARDIOVASCULAR: Regular rate and rhythm with no murmurs, rubs or gallops. GASTROINTESTINAL: Bowel sounds present in all quadrants. Soft and nontender to palpation. MUSCULOSKELETAL: Examination shows notable left leg, ankle and foot edema and erythema with tenderness to palpation. The patient does have proximal spreading erythema above line of demarcation of the anterior leg. Also has open wounds with maceration and mild serous drainage from the lateral foot and posterior heel. Pedal pulses are intact. INTEGUMENTARY: No rash or other significant dermatologic conditions noted. HEMATOLOGIC: No ecchymosis or petechiae. PSYCHIATRIC: Positive affect. NEUROLOGIC: No focal neurologic deficits noted. Course Course Patient history and physical exam were performed. Nurse's notes were reviewed. Vital signs were reviewed and were normal. I did review prior medical records from the patient's last 2 ED visits. It is confirmed that the patient did recei ve IV Dalvance 6 days ago, with photographs taken. Comparison with today does show similar erythema, but the patient now reports open wounds on the bottom of the foot. The case was then further discussed with Dr. Nieves, ED attending physician, as well as our ED pharmacist regarding plan of care and antibiotic choice. Dr. Nieves also evaluated the patient, and agrees with hospital admission. Our pharmacist has recommended IV cefepime and Flagyl, both of which were ordered. Additional labs, including blood cultures x2, were drawn prior to antibiotic administration. I also swabbed the patient's foot wounds with cultures pending. Review of labs shows a normal white count with no left shift. Bandemia is present. Sed rate is elevated at 77. [id number] lactate is also mildly elevated at 2.01. X-rays of the left leg and foot did not show any evidence for fracture, osteomyelitis or underlying foreign bodies. The patient did request something for pain, and was administered IV morphine. Patient's blood glucose was noted to be 329, and the patient was administered regular insulin 10 units subcutaneously The case was further discussed with the [facility] hospitalist, Dr. Causey, who will evaluate the patient. Please see the hospitalist service dictations for further treatment and final disposition. Administered Medications Gabapentin (Neurontin) 600 mg PO TID PER Stop: 07/24/19 20:59 Last Admin: 06/24/19 21:37 Dose: 600 mg Documented by: [id number] Vancomycin HCl 2,750 mg/ (Sodium Chloride) 555 mls @ 200 mls/hr IV NOW ONE Stop: 06/24/19 23:16 Last Admin: 06/24/19 21:32 Dose: 200 mls/hr Documented by: [id number] Losartan Potassium (Cozaar) 50 mg PO HS PER Stop: 07/24/19 20:59 Last Admin: 06/24/19 21:37 Dose: 50 mg Documented by: [id number] Metoprolol Tartrate (Lopressor) 25 mg PO BID PER Stop: 07/24/19 20:59 Last Admin: 06/24/19 21:37 Dose: 25 mg Documented by: [id number] Tramadol HCl (Ultram) 50 mg PO Q6H PRN PRN Reason: Pain Stop: 07/24/19 19:45 Last Admin: 06/24/19 21:16 Dose: 50 mg Documented by: [id number] Discontinued Medications Cefepime HCl (Maxipime) 2,000 mg in 12.5 mls @ 3.125 mls/min IV NOW STA Stop: 06/24/19 15:42 Last Admin: 06/24/19 17:16 Dose: 3.125 mls/min Documented by: [id number] Metronidazole (Flagyl) 500 mg in 100 mls @ 100 mls/hr IV NOW STA Stop: 06/24/19 16:38 Last Infusion: 06/24/19 19:22 Dose: 0 mls/hr Documented by: [id number] Admin: 06/24/19 17:17 Dose: 100 mls/hr Documented by: [id number] Sodium Chloride (Nss 1000ml) 1,000 mls @ 999 mls/hr IV .Q1H1M ONE Stop: 06/24/19 16:42 Last Infusion: 06/24/19 19:23 Dose: 0 mls/hr Documented by: [id number] Admin: 06/24/19 17:13 Dose: 999 mls/hr Documented by: [id number] Insulin Human Regular (Novolin R U-100 Per Unit) 10 units SC NOW STA Stop: 06/24/19 17:15 Last Admin: 06/24/19 18:40 Dose: 10 units Documented by: [id number] Cosigned by: [id number] Morphine Sulfate (Morphine Sulfate) 4 mg IV NOW STA Stop: 06/24/19 16:52 Last Admin: 06/24/19 17:17 Dose: 4 mg Documented by: [id number] Medical Decision Making Medical Records Attestation: I reviewed the patient's medical records. Home Medications Current Medication List: was personally reviewed by me Laboratory Data Attestation: I reviewed the patient's lab results. Result diagrams: 06/24/19 16:17 06/24/19 16:17 Lab Results 06/24/19 06/24/19 06/24/19 Range/Units 16:17 16:17 16:17 WBC 9.74 (4.8-10.8) K/uL RBC 4.19 L (4.2-5.4) M/uL Hgb 11.4 L (12.0-16.0) g/dL Hct 34.3 L (37-47) % MCV 81.9 (80-100) fL MCH 27.2 (25-34) pg MCHC 33.2 (32-36) g/dL RDW Std Deviation 46.8 H (36.4-46.3) fL RDW Coeff of Adelina 15.8 H (11.5-14.5) % Plt Count 268 (130-400) K/uL MPV 10.1 (7.4-10.4) fL Immature Gran % (Auto) 0.6 % Neut % (Auto) 59.7 % Lymph % (Auto) 30.4 % [place] % (Auto) 6.1 % Eos % (Auto) 2.8 % Baso % (Auto) 0.4 % Immature Gran # (Auto) 0.06 H (0.00-0.02) K/uL Neut # (Auto) 5.82 (1.4-6.5) K/uL Lymph # (Auto) 2.96 (1.2-3.4) K/uL [place] # (Auto) 0.59 (0.11-0.59) K/uL Eos # (Auto) 0.27 (0-0.5) K/uL Baso # (Auto) 0.04 (0-0.2) K/uL ESR 77 H (0-21) mm/hr PT 10.8 (9.0-12.0) Seconds INR 1.1 (0.9-1.1) Sodium (136-145) mmol/L Potassium (3.5-5.1) mmol/L Chloride (98-107) mmol/L Carbon Dioxide (21-32) mmol/L Anion Gap (3-11) BUN (7-18) mg/dl Creatinine (0.6-1.2) mg/dl Est Cr Clr Drug Dosing ml/min Est GFR ( Amer) Est GFR (Non-Af Amer) BUN/Creatinine Ratio (10-20) Glucose (70-99) mg/dl POC Lactic Acid Rob (0.90-1.70) mmol/L Calcium (8.5-10.1) mg/dl Total Bilirubin (0.2-1) mg/dl AST (15-37) U/L ALT (12-78) U/L Alkaline Phosphatase (45-117) U/L C-Reactive Protein (0-0.29) mg/dl Total Protein (6.4-8.2) gm/dl Albumin (3.4-5.0) gm/dl Globulin (2.5-4.0) gm/dl Albumin/Globulin Ratio (0.9-2) Beta-Hydroxybutyric Acd (0.2-2.81) mg/dl 06/24/19 06/24/19 Range/Units 16:17 16:20 WBC (4.8-10.8) K/uL RBC (4.2-5.4) M/uL Hgb (12.0-16.0) g/dL Hct (37-47) % MCV (80-100) fL MCH (25-34) pg MCHC (32-36) g/dL RDW Std Deviation (36.4-46.3) fL RDW Coeff of Adelina (11.5-14.5) % Plt Count (130-400) K/uL MPV (7.4-10.4) fL Immature Gran % (Auto) % Neut % (Auto) % Lymph % (Auto) % [place] % (Auto) % Eos % (Auto) % Baso % (Auto) % Immature Gran # (Auto) (0.00-0.02) K/uL Neut # (Auto) (1.4-6.5) K/uL Lymph # (Auto) (1.2-3.4) K/uL [place] # (Auto) (0.11-0.59) K/uL Eos # (Auto) (0-0.5) K/uL Baso # (Auto) (0-0.2) K/uL ESR (0-21) mm/hr PT (9.0-12.0) Seconds INR (0.9-1.1) Sodium 133 L (136-145) mmol/L Potassium 3.9 (3.5-5.1) mmol/L Chloride 98 (98-107) mmol/L Carbon Dioxide 32 (21-32) mmol/L Anion Gap 3.0 (3-11) BUN 25 H (7-18) mg/dl Creatinine 1.20 (0.6-1.2) mg/dl Est Cr Clr Drug Dosing 61.9 ml/min Est GFR ( Amer) 57.3 Est GFR (Non-Af Amer) 49.4 BUN/Creatinine Ratio 20.4 H (10-20) Glucose 329 H* (70-99) mg/dl POC Lactic Acid Rob 2.01 H (0.90-1.70) mmol/L Calcium 9.7 (8.5-10.1) mg/dl Total Bilirubin 0.4 (0.2-1) mg/dl AST 19 (15-37) U/L ALT 27 (12-78) U/L Alkaline Phosphatase 158 H (45-117) U/L C-Reactive Protein 1.08 H (0-0.29) mg/dl Total Protein 8.4 H (6.4-8.2) gm/dl Albumin 3.2 L (3.4-5.0) gm/dl Globulin 5.2 H (2.5-4.0) gm/dl Albumin/Globulin Ratio 0.6 L (0.9-2) Beta-Hydroxybutyric Acd 0.87 (0.2-2.81) mg/dl Imaging Data Attestation: I personally reviewed and interpreted this imaging study as follows: My Impression: My interpretation of the left foot and leg x-rays does not show evidence for underlying osteomyelitis, fractures or radiopaque foreign bodies. Radiologist reports were also reviewed. Radiologist's Impression: XR foot LT min 3V routine CLINICAL HISTORY: L FOOT/LEG INFECTION COMPARISON: None. DISCUSSION: The bones are osteopenic. No acute fractures are visualized. Degenerative changes are present within the midfoot. There is Achilles insertional spurring and plantar calcaneal spurring. No destructive lesions are visualized. There is no evidence for soft tissue gas. IMPRESSION: 1. No acute fractures 2. Degenerative change 3. No conventional radiographic evidence of acute osteomyelitis. Blood Pressure Blood Pressure Findings: Normal blood pressure MDM Narrative Patient presents to the emergency department with persistent cellulitis of the left leg and foot, and has failed both outpatient antibiotic management with Cipro, as well as intravenous Dalvance through the emergency department. Imaging of the left leg and foot does not show evidence for osteomyelitis; additional advanced imaging may be warranted. The patient is diabetic. The patient is afebrile and shows no elevated white count. She does have a mildly elevated lactate. I do not suspect sepsis at this point, but blood cultures are currently pending. Impression & Plan Cellulitis of left leg, Diabetes, Cellulitis of left foot Discharge Plan Visit Data *Final* Discharge Date/Time: 06/24/19 18:15 Chief Complaint: Wound Recheck Stated Complaint: RECHECK LEFT LEG ED Provider: Clara Nieves ED Midlevel Provider: Navjot Thomas Discharge Problem: Cellulitis of left leg, Diabetes, Cellulitis of left foot Patient Disposition: Admitted As Inpatient Discharge Instructions Interventions: ED Discharge Assessment Last Done: 06/24/19 18:15
[2019-06-24 16:37] LABS: Basophils # (auto) 0.04 K/uL (0-0.2); Basophils % (auto) 0.4 %; Eosinophils # (auto) 0.27 K/uL (0-0.5); Eosinophils % (auto) 2.8 %; Hematocrit (blood only) 34.3 % (37-47); Hemoglobin 11.4 g/dL (12.0-16.0); Immature Granulocytes # (auto) 0.06 K/uL (0.00-0.02); Immature Granulocytes % (auto) 0.6 %; Lymphocytes # (auto) 2.96 K/uL (1.2-3.4); Lymphocytes % (auto) 30.4 %; Mean Corpuscular Hemoglobin 27.2 pg (25-34); Mean Corpuscular Hgb Conc 33.2 g/dL (32-36); Mean Corpuscular Volume 81.9 fL (80-100); Mean Platelet Volume 10.1 fL (7.4-10.4); Monocytes # (auto) 0.59 K/uL (0.11-0.59); Monocytes % (auto) 6.1 %; Neutrophils # (auto) 5.82 K/uL (1.4-6.5); Neutrophils % (auto) 59.7 %; Platelet Count 268 K/uL (130-400); RDW Coefficient of Variation 15.8 % (11.5-14.5); RDW Standard Deviation 46.8 fL (36.4-46.3); Red Blood Count 4.19 M/uL (4.2-5.4); White Blood Count 9.74 K/uL (4.8-10.8)
[2019-06-24 16:47] LABS: INR 1.1 (0.9-1.1); Prothrombin Time 10.8 Seconds (9.0-12.0)
[2019-06-24] MEDS ORDERED: MoRPHine SULFATE 4 MG/ML 1 ML CARP\\VIAL IV STA (16:51)
[2019-06-24 17:08] LABS: Albumin Globulin Ratio 0.6 (0.9-2); Albumin Level 3.2 gm/dl (3.4-5.0); BUN Creatinine Ratio 20.4 (10-20); Bilirubin,Total 0.4 mg/dl (0.2-1); C Reactive Protein 1.08 mg/dl (0-0.29); Calcium 9.7 mg/dl (8.5-10.1); Creatinine Clr Calc Pharmacy 61.9 ml/min; Est GFR (African American) 57.3; Est GFR (Non-African American) 49.4; Globulin 5.2 gm/dl (2.5-4.0); Potassium 3.9 mmol/L (3.5-5.1); Total Protein 8.4 gm/dl (6.4-8.2)
[2019-06-24] MEDS ORDERED: NovoLIN-R INSULIN PER UNIT CHARGE SC STA (17:14)
--- NOTE | 2019-06-24 17:14 | History & Physical Report ---
Date of Service June 24, 2019 Assessment & Plan (1) Cellulitis of left lower extremity: Partial response to outpatient IV dalvance given on 06/18 along with PO cipro. However, cellulitis has persisted with worsening pain and ongoing ulceration of left lateral foot. Given the concurrent ulceration will continue broad-spectrum IV antibiotics including cefepime for gram negatives/pseudomonas, flagyl for anaerobes, and vanco IV for MRSA coverage (although still has IV dalvance in her system which should be covering such). Follow blood cx's. Follow wound cx. Treat pain. Consult wound care. Likely will need debridement of lateral ulcer on left foot. CT tib/fib - rule out deeper infection, necrotizing process (doubt), etc. MRI left foot w/ and w/o contrast - r/o osteomyelitis of heel as ulcer has been present for 2 months. Consider ID consultation. Has intact pulses on exam - defer on arterial dopplers for now. (2) Diabetic foot ulcer: left foot x 3 with largest ulcer likely needing debridement. wound care nurse consultation. Rx for cellulitis as above. MRI left foot. May need wound care provider and/or ortho depending on MRI results. pain control. (3) Diabetes mellitus type 2, uncontrolled: Increase basal insulin to 60 units BID of lantus. Novolog - correct factor of 9; carb ratio 1:3. May need tightening of all 3. BSGs ac/hs. DM diet. (4) Chronic kidney disease (CKD), stage III (moderate): Cr at baseline today. BMP am. (5) Morbid obesity: BMI 48 (6) Diabetic neuropathy: Cont gabapentin as previous. Needs to be fitted for DM shoes - refer as outpatient. (7) Dyslipidemia: Cont statin (8) Hypertension: cont all outpatient meds patient slightly on dry side; thus, make lasix an even dose of 40mg daily for now (as opposed to alternating 80s with 40s). (9) Sleep apnea: patient did not mention this as part of her PMH and did not mention using CPAP/BIPAP at home. will address. (10) Diarrhea: Check c.diff. Add lactinex. If c.diff is negative then this is abx-associated diarrhea. (11) DVT prophylaxis: lovenox 40mg daily History of Present Illness Chief Complaint: left leg pain, left leg redness Primary Care Provider: Kaila Freitas MD 58yo female with long-standing insulin-dependent T2DM, morbid obesity, chronic LE edema, and diabetic peripheral neuropathy who presents with concerns of worsening left leg pain and erythema. Patient states she was first seen in our ER on 06/18/2019 and was diagnosed with LLE cellulitis. She was given IV dalvance and PO cipro and d/c home. Prior to discharge the leading edge of the cellulitis which was just inferior to the left knee was demarcated with a blue line. She reports that she had been having erythema of the left foot starting about 06/10/2019. She also has had a persistent left lateral foot ulcer for about 2 months. She has 2 additional ulcers - 1 over the achilles region, and a 2nd one over the lateral foot as well (for a total of 3 ulcerations). On 06/21/19 she returned to the ER for a recheck of the LLE cellulitis. Documentation suggests that the LLE erythema was modestly improved and she over all was feeling better. A decision was made to simply continue the cipro and return home. However, since the 06/21 visit, the pain in the high-left tib-fib region has worsened. There has been no change in the erythema extending from the previously placed demarcation line and the foot. For that reason she came back to the ER to be evaluated. She did have fever sometime last week but none since that time. She had shaking chills last night. Appetite has been poor. Fingerstick blood sugars have been quite high over the last 1-2 weeks with many readings in the 200-300 range. Allergies Allergy/AdvReac Type Severity Reaction Status Date / Time amoxicillin Allergy Intermediate HIVES Verified 06/24/19 15:59 clavulanic acid Allergy Intermediate HIVES Verified 06/24/19 15:59 lisinopril AdvReac Unknown NAUSEA/VOMI Verified 06/24/19 15:59 TING Home Medications Home Medications Medication Instructions Recorded Confirmed Type cholecalciferol (vitamin D3) 5,000 units PO QAM 09/16/18 06/24/19 History [Vitamin D3] furosemide 40 mg PO 4XWK 09/16/18 06/24/19 History furosemide 80 mg PO 3XWK 09/16/18 06/24/19 History gabapentin 600 mg PO TID 09/16/18 06/24/19 History losartan 50 mg PO HS 09/16/18 06/24/19 History magnesium oxide 500 mg PO QAM 09/16/18 06/24/19 History metoprolol tartrate 25 mg PO BID 09/16/18 06/24/19 History insulin regular human [Novolin R 70 unit SUBCUT TID 01/15/19 06/24/19 History Regular U-100 Insuln] rosuvastatin 40 mg PO QAM 01/15/19 06/24/19 History acetaminophen [Tylenol Extra 1,000 mg PO Q6H PRN 06/18/19 06/24/19 History Strength] ciprofloxacin HCl 500 mg PO BID #14 tab 06/18/19 06/24/19 Rx aspirin 81 mg PO QAM 06/24/19 06/24/19 History docusate sodium [Stool Softener] 100 mg PO BID 06/24/19 06/24/19 History insulin degludec [Tresiba 110 unit SUBCUT HS 06/24/19 06/24/19 History FlexTouch U-200] metformin 500 mg PO BID 06/24/19 06/24/19 History tramadol 50 mg PO Q6H PRN 06/24/19 06/24/19 History Past Med/Surg History Surgical History History of lumpectomy of right breast (Chronic) Hx of hand surgery RIGHT HAND Status post colonoscopy (Chronic) "2011- 2 hyperplastic + 1 adenomatous polyps; 2016- normal" Status post tonsillectomy (Chronic) Status post tubal ligation (Chronic) Family History Mother Rheumatoid arthritis Father Emphysema of lung Peripheral artery disease Social History (Updated 06/24/19 @ 19:43 by Kaden Kevin) Preferred Language: Kyrgyz Communication Ability: Effective 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 Beliefs That Will Affect Care: None marital status: Current Living Situation: Spouse Current Living Situation Comment: reports her son is also in poor health at this time current occupational status: disabled other: previous worked at [employer] Feels Safe at Home: Yes Smoking Status: Former smoker Cigarettes Per Day: 1.5-2ppd ; Smoking End Date: 2014 ; Second Hand Exposure: No ; Hx Alcohol Use: No Hx Substance Use: No Review of Systems Constitutional: + fever, + chills, + fatigue and + anorexia; no weight loss and no weight gain Eyes: no worsening vision Ear, Nose, Mouth, Throat: + nasal congestion and + post nasal drip; no sore throat and no dysphagia Respiratory: no cough, no dyspnea and no dyspnea on exertion Cardiovascular: + edema (chronic); no chest pain Gastrointestinal: + diarrhea/loose stools (2-4 stools/day for last several days); no abdominal pain, no nausea and no vomiting Genitourinary: no dysuria and no difficulty urinating Musculoskeletal: as per Subjective / HPI; no joint pain (no left knee pain ) Integumentary: as per Subjective / HPI and + erythema Neurologic: + loss of sensation (b/l feet) Psychiatric: no depression Endocrine: hyperglycemia for 1-2 weeks Hematologic / Lymphatic: no easy bleeding and no easy bruising Physical Exam Constitutional: well developed, well nourished and + morbidly obese; no acute distress and no altered mental status Eyes: PERRL ENMT: external ear and nose normal, oropharynx normal Neck: trachea midline, no thyromegaly Respiratory: normal respiratory effort, lungs clear to auscultation Cardiovascular: Rate/Rhythm: regular rate and regular rhythm Heart Sounds: normal S1, normal S2 and + murmur (1/6 systolic LSB ) Vessels: posterior tibial pulses present (2+ b/l ) and dorsalis pedis pulses present (2+ b/l ); no JVD Extremities: + edema (1+ RLE; 2+ LLE ) Gastrointestinal (Abdomen): normal bowel sounds, soft, nontender, no hepatosplenomegaly Musculoskeletal: left knee - full ROM; no tenderness or pain. no effusion. Skin: left leg - demarcation line just below tibial plateau. The erythema/cellulitis is just inferior to the demarcation line. The erythema extends down the anterior rosenberg to the ankle and foot. Mild warmth entire area of cellulitis. No crepitus. Very tender to palpation over superior most portion of rosenberg. No abscess. Left foot - ulceration present over lateral 5th metatarsal region near the heel. There is devascularized skin adjacent to ulcer. No drainage. No palpable or visible bone. 2 other tiny ulcers - 1 on achilles, another on anterior most portion of lateral 5th metartarsal region. Neither of the 2 small ulcers have drainage. Neurologic: moves all extremities; no focal motor deficits Psychiatric: A+Ox3, euthymic affect Lymphatic: no cervical lymphadenopathy Results & Data Vital Signs (Past 12 Hours) Vital Signs Temp Pulse Resp BP Pulse Ox 06/24/19 15:11 36.6 C 67 16 120/77 100 Laboratory Results Laboratory Results - last 24 hr 06/24/19 06/24/19 06/24/19 16:17 16:17 16:17 WBC 9.74 RBC 4.19 L Hgb 11.4 L Hct 34.3 L MCV 81.9 MCH 27.2 MCHC 33.2 RDW Std Deviation 46.8 H RDW Coeff of Adelina 15.8 H Plt Count 268 MPV 10.1 Immature Gran % (Auto) 0.6 Neut % (Auto) 59.7 Lymph % (Auto) 30.4 [place] % (Auto) 6.1 Eos % (Auto) 2.8 Baso % (Auto) 0.4 Immature Gran # (Auto) 0.06 H Neut # (Auto) 5.82 Lymph # (Auto) 2.96 [place] # (Auto) 0.59 Eos # (Auto) 0.27 Baso # (Auto) 0.04 ESR 77 H PT 10.8 INR 1.1 Sodium Potassium Chloride Carbon Dioxide Anion Gap BUN Creatinine Est Cr Clr Drug Dosing Est GFR ( Amer) Est GFR (Non-Af Amer) BUN/Creatinine Ratio Glucose POC Lactic Acid Rob Calcium Total Bilirubin AST ALT Alkaline Phosphatase C-Reactive Protein Total Protein Albumin Globulin Albumin/Globulin Ratio Beta-Hydroxybutyric Acd 06/24/19 06/24/19 16:17 16:20 WBC RBC Hgb Hct MCV MCH MCHC RDW Std Deviation RDW Coeff of Adelina Plt Count MPV Immature Gran % (Auto) Neut % (Auto) Lymph % (Auto) [place] % (Auto) Eos % (Auto) Baso % (Auto) Immature Gran # (Auto) Neut # (Auto) Lymph # (Auto) [place] # (Auto) Eos # (Auto) Baso # (Auto) ESR PT INR Sodium 133 L Potassium 3.9 Chloride 98 Carbon Dioxide 32 Anion Gap 3.0 BUN 25 H Creatinine 1.20 Est Cr Clr Drug Dosing 61.9 Est GFR ( Amer) 57.3 Est GFR (Non-Af Amer) 49.4 BUN/Creatinine Ratio 20.4 H Glucose 329 H* POC Lactic Acid Rob 2.01 H Calcium 9.7 Total Bilirubin 0.4 AST 19 ALT 27 Alkaline Phosphatase 158 H C-Reactive Protein 1.08 H Total Protein 8.4 H Albumin 3.2 L Globulin 5.2 H Albumin/Globulin Ratio 0.6 L Beta-Hydroxybutyric Acd 0.87 Diagnostic Findings x-rays of left foot - IMPRESSION: 1. No acute fractures 2. Degenerative change 3. No conventional radiographic evidence of acute osteomyelitis Code Status & VTE Plan Code Status full code VTE Prophylaxis Plan VTE Prophylaxis will be ordered: Yes PG Care Time/CCT Total # of Minutes Spent Total Time Spent with Patient: Total time spent is greater than 50% in coordination of care (as documented) at patient's floor/unit and/or counseling patient: (1) Diabetic neuropathy Diabetes mellitus type: type 2 Diabetes mellitus complication detail: diabetic polyneuropathy Qualified Code(s): E11.42 - Type 2 diabetes mellitus with diabetic polyneuropathy (2) Hypertension Hypertension type: essential hypertension Qualified Code(s): I10 - Essential (primary) hypertension (3) Sleep apnea Sleep apnea type: obstructive Qualified Code(s): G47.33 - Obstructive sleep apnea (adult) (pediatric) (4) Diabetes mellitus type 2, uncontrolled Glycemic state: with hyperglycemia Qualified Code(s): E11.65 - Type 2 diabetes mellitus with hyperglycemia (5) Diabetic foot ulcer Diabetic foot ulcer location: heel Diabetes mellitus type: type 2 Laterality: left Non-pressure ulcer stage: with other severity Qualified Code( s): E11.621 - Type 2 diabetes mellitus with foot ulcer; L97.428 - Non-pressure chronic ulcer of left heel and midfoot with other specified severity (6) Diarrhea Diarrhea type: unspecified type Qualified Code(s): R19.7 - Diarrhea, unspecified
[2019-06-24 17:24] LABS: Beta-Hydroxybutyrate 0.87 mg/dl (0.2-2.81)
--- NOTE | 2019-06-24 19:32 | CT Scan Report ---
CT tib/fib LT wo con CT DOSE: 269.57 mGy.cm CLINICAL HISTORY: Severe left lower leg pain. Cellulitis. Evaluate for osteomyelitis or necrotizing f asciitis. TECHNIQUE: Helical images were acquired without intravenous contrast. Sagittal and coronal reformatte d images were acquired. A dose lowering technique was utilized adhering to the principles of ALARA. COMPARISON STUDY: None FINDINGS: There is diffuse lower leg soft tissue edema consistent with the clinical history of cellul itis. There are subcutaneous calcifications, possibly secondary to venous stasis. There are no pathologic gas collections identified. There are moderate osteoarthritic changes within the knee. There are no destructive changes to indicate acute osteomyelitis. There are no fluid collections to indicate an abscess. There are moderate arthritic changes within the midfoot with subchondral cysts. IMPRESSION: 1. No evidence of abscess 2. No evidence of soft tissue gas 3. Diffuse cutaneous and subcutaneous edema consistent with the clinical history of cellulitis 4. Arthritic changes within the knee and foot 5. No evidence of osteomyelitis ACT 112: Negative or not required by law. Electronically signed by: Sav Hdz M.D. 06/24/2019 7:30 PM
[2019-06-24] MEDS ORDERED: VANCOMYCIN CONSULT ACTIVE PRN (19:46)
[2019-06-24] MEDS ORDERED: MAGNESIUM HYDROXIDE SUSP 30 ML UDC PO PRN (19:46)
[2019-06-24] MEDS ORDERED: ONDANSETRON INJ 2 MG/ML 2 ML VIAL IV PRN (19:46)
[2019-06-24] MEDS ORDERED: ALUMINUM/MAGNESIUM SUSP 30 ML UDC PO PRN (19:46)
[2019-06-24] MEDS ORDERED: MoRPHine SULFATE 2 MG/ML CARP IV PRN (19:46)
[2019-06-24] MEDS ORDERED: VANCOMYCIN HCL 2,750 MG in SODIUM CHLORIDE 0.9% 500 ML IV ONE (20:30)
[2019-06-24] MEDS: TRAMADOL HCL 50 MG TABLET PO PRN (21:16)
--- NOTE | 2019-06-24 21:17 | Pharmacy Report ---
Pharmacy Abx Initial Consult - Date of Service June 24, 2019 - Pharmacy Dosing Scope Date of Consult: 06/24/19 Consultation requested by: Dr. Kevin Pharmacy is consulted to initiate Vancomycin IV dosing therapy, order appropriate labs and adjust drug dose/frequency. - Subjective The patient is a 58 year old F admitted on 06/24/19 16:29. - Objective Height: 5 ft 2 in Weight: 125 kg Vital Signs (Past 12hrs): Vital Signs Temp Pulse Pulse Resp BP BP Pulse Ox 06/24/19 19:30 36.8 C 76 20 164/91 H 98 06/24/19 18:00 71 174/67 H 06/24/19 16:54 71 22 117/72 100 06/24/19 16:00 74 138/60 06/24/19 15:11 36.6 C 67 16 120/77 100 Lab Results (24hrs): Laboratory Tests (24 Hours) 06/24/19 06/24/19 06/24/19 16:17 16:17 16:17 WBC 9.74 Neut # (Auto) 5.82 ESR 77 H Creatinine 1.20 Est Cr Clr Drug Dosing 61.9 C-Reactive Protein 1.08 H Micro Results: 06/24/19 16:20 Aerobic Blood Culture - Pending Blood Anaerobic Blood Culture - Pending 06/24/19 16:17 Aerobic Blood Culture - Pending Blood Anaerobic Blood Culture - Pending 06/24/19 15:30 Gram Stain - Pending Foot Wound Culture - Pending - Risk Factors for Resistance * History of infection with a 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 Pt received IV dalvance ~ 1 week ago along with PO cipro which only yielded a partial response. Pt is morbidly obese - high risk for vanco accumulation Plan Vancomycin IV * Estimated PK Parameters: Vd 0.055 L/kg, David 0.038hr-1, t1/2 18hr * Loading dose: 2,750 mg (23 mg/kg) * Maintenance dose: 1,250 mg IV (10 mg/kg) every 12 hours * Goal trough level for sst : 10 to 20 mcg/mL depending on c/s * Trough/Random level ordered for 06/26/19 at 0900. of note, this will NOT be steady state, as long as trough is >10 mcg/ml no need to increase dose since vancomycin accumulation will occur with obesity and that we are dosing less than T1/2. 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 Pharmacy will continue to follow and will adjust dose/frequency as necessary. Thank you.
[2019-06-24] MEDS: LOSARTAN POTASSIUM 50 MG TAB PO SCH (21:37)
[2019-06-24] MEDS: METOPROLOL TARTRATE 25 MG TAB PO SCH (21:37)
[2019-06-24] MEDS: GABAPENTIN 600 MG TAB PO SCH (21:37)
[2019-06-24] MEDS: ENOXAPARIN INJ 40 MG/0.4 ML SYR SQ SCH (21:38)
[2019-06-24] MEDS: INSULIN ASPART 100 UNITS/ML 3 ML PEN SC SCH (21:51)
[2019-06-24] MEDS: INSULIN GLARGINE 100 UNIT/ML VIAL SC SCH (21:52)
[2019-06-24] MEDS ORDERED: GADOBUTROL 65ML VIAL IV PRN (23:11)
[2019-06-25] MEDS: ACETAMINOPHEN 500 MG TAB PO PRN ×3 (01:55→18:12)
[2019-06-25] MEDS: metroNIDAZOLE 500 MG/100 ML BAG IV SCH ×3 (02:08→17:01)
[2019-06-25] MEDS: CEFEPIME 2,000 MG in SYRINGE 7.5 ML IV SCH ×2 (05:09→16:58)
[2019-06-25] MEDS: TRAMADOL HCL 50 MG TABLET PO PRN ×3 (05:18→19:25)
[2019-06-25 06:37] LABS: BUN Creatinine Ratio 22.3 (10-20); Calcium 8.9 mg/dl (8.5-10.1); Creatinine Clr Calc Pharmacy 75.1 ml/min; Est GFR (African American) 69.7; Est GFR (Non-African American) 60.2; Potassium 3.8 mmol/L (3.5-5.1)
--- NOTE | 2019-06-25 06:56 | Magnetic Resonance Report ---
MRI OF THE LEFT HINDFOOT WITHOUT AND WITH CONTRAST CLINICAL HISTORY: L 5th metatarsal ulcer; eval osteomyelitis COMPARISON STUDY: X-ray study dated 06/24/2019 FINDINGS: Images were acquired in the axial, sagittal and coronal planes, before and after the admini stration of 12.4 cc of intravenous Gadavist. There are no areas of marrow edema to indicate acute osteomyelitis. Arthritic changes are present within the midfoot with subchondral cystic change, likely on a neuropat hic basis. There are no fluid collections to indicate an abscess. There are no pathologically enhancing masses. There is diffuse soft tissue edema There is calcaneal spurring. There is intramuscular edema involving the extensor digitorum longus, flexor hallucis longus, and fle xor digitorum longus. The findings are nonspecific but may be on a neuropathic etiology, or secondary to a diabetic myositis. IMPRESSION: 1. Diffuse soft tissue edema 2. No evidence of acute osteomyelitis 3. No evidence of abscess 4. Presumed neuropathic changes within the midfoot 5. Multifocal intramuscular edema as described above. ACT 112: Negative or not required by law. Electronically signed by: Sav Hdz M.D. 06/25/2019 6:55 AM
[2019-06-25] MEDS: METOPROLOL TARTRATE 25 MG TAB PO SCH ×2 (09:39→20:10)
[2019-06-25] MEDS: GABAPENTIN 600 MG TAB PO SCH ×3 (09:39→20:11)
[2019-06-25] MEDS: ASPIRIN 81 MG ECTAB PO SCH (09:40)
[2019-06-25] MEDS: METFORMIN HCL 500 MG TAB PO SCH ×2 (09:40→16:54)
[2019-06-25] MEDS: LACTOBACILLUS ACIDOPHILUS (FLORANEX) TAB PO SCH ×3 (09:40→16:54)
[2019-06-25] MEDS: CHOLECALCIFEROL 1,000 UNITS TAB PO SCH (09:40)
[2019-06-25] MEDS: FUROSEMIDE 40 MG TAB PO SCH (09:40)
[2019-06-25] MEDS: ROSUVASTATIN CALCIUM 20 MG TAB PO SCH (09:40)
[2019-06-25] MEDS: MAGNESIUM OXIDE 400 MG TAB PO SCH (09:46)
[2019-06-25] MEDS: INSULIN ASPART 100 UNITS/ML 3 ML PEN SC SCH ×4 (09:53→21:35)
[2019-06-25] MEDS: VANCOMYCIN HCL 1,250 MG in SODIUM CHLORIDE 0.9% 250 ML IV SCH ×2 (09:55→20:12)
[2019-06-25] MEDS: INSULIN GLARGINE 100 UNIT/ML VIAL SC SCH ×2 (10:09→21:36)
--- NOTE | 2019-06-25 10:46 | XRay Report ---
XR tibia fibula LT 2V CLINICAL HISTORY: L FOOT/LEG INFECTION pain. Infection. COMPARISON: None. DISCUSSION: The bones and joint spaces appear intact. There is no evidence of fracture, dislocation o r bony disease. Considerable soft tissue edema. No abnormal periosteal reaction. IMPRESSION: Soft tissue edema. No acute bony abnormality. ACT 112: Negative or not required by law. The above report was generated using voice recognition software. It may contain grammatical, syntax or spelling errors. Electronically signed by: Surinder Philip M.D. 06/24/2019 3:58 PM
[2019-06-25] MEDS ORDERED: INSULIN GLARGINE 100 UNIT/ML VIAL SC ONE (12:30)
--- NOTE | 2019-06-25 15:21 | Ultrasound Report ---
US venous doppler LE LT CLINICAL HISTORY: anterior LLE w/ tenderness; eval phlebitis PAIN. EDEMA. COMPARISON STUDY: No previous studies for comparison. FINDINGS: Real-time and color flow Doppler imaging were performed. Flow was seen within the femoral, popliteal and calf veins with no intraluminal thrombus demonstrated. The saphenous vein is patent. IMPRESSION: No evidence of deep venous thrombosis. ACT 112: Negative or not required by law. The above report was generated using voice recognition software. It may contain grammatical, syntax or spelling errors. Electronically signed by: Surinder Philip M.D. 06/25/2019 3:20 PM
[2019-06-25] MEDS: KETOROLAC 30 MG/ML VIAL IV PRN (17:01)
--- NOTE | 2019-06-25 19:54 | Hospitalist Progress Note ---
Date of Service June 25, 2019 Assessment & Plan (1) Cellulitis of left lower extremity: Improved. s/p dalvance on 06/18. Now on cefepime/vanco/flagyl. Culture pending from Left lateral foot wound. Ct tib-fib -- no nec fasc; no abscess; no osteomyelitis; etc. MRI left foot - no deep infection; no osteomyelitis; etc. Appreciate wound care team consult. Follow cx's. check venous doppler to r/o phlebitis of LLE. (2) Diabetic foot ulcer: left foot x 3 with largest ulcer likely needing debridement. wound care nurse consultation pending. Rx for cellulitis as above. May need wound care provider and/or ortho depending on if debridement is needed. pain control. (3) Diabetes mellitus type 2, uncontrolled: IMPROVING but still uncontrolled. Increase basal insulin to 65 units BID of lantus. Novolog - correct factor of 8; carb ratio 1:2. BSGs ac/hs. DM diet. (4) Chronic kidney disease (CKD), stage III (moderate): Cr stable again today. BMP am. (5) Morbid obesity: BMI 50 (6) Diabetic neuropathy: Cont gabapentin as previous. Needs to be fitted for DM shoes - refer as outpatient. (7) Dyslipidemia: Cont statin (8) Hypertension: cont all outpatient meds (9) Sleep apnea: patient did not mention this as part of her PMH and did not mention using CPAP/BIPAP at home. will address while here. (10) Diarrhea: Check c.diff if diarrhea recurs. Cont lactinex. If c.diff is negative then this is abx-associated diarrhea. (11) DVT prophylaxis: lovenox 40mg daily Subjective pt feels LLE is much better today foot especially is improved still with pain just inferior to left knee over tibial region but no worse than previous good appetite no new complaints diarrhea has not recurred Review of Systems Constitutional: no fever and no chills Respiratory: no dyspnea Cardiovascular: no chest pain Gastrointestinal: no abdominal pain, no nausea and no vomiting Physical Exam Constitutional: + morbidly obese; no acute distress and no altered mental status ENMT: external ear and nose normal, oropharynx normal Respiratory: normal respiratory effort, lungs clear to auscultation Cardiovascular: Rate/Rhythm: regular rate and regular rhythm Heart Sounds: normal S1 and normal S2; no murmur Vessels: posterior tibial pulses present and dorsalis pedis pulses present; no JVD Extremities: + edema (LLE>RLE) Gastrointestinal (Abdomen): normal bowel sounds, soft, nontender, no hepatosplenomegaly Musculoskeletal: left knee - still with full ROM w/o any pain/redness/swelling Skin: cellulitis - left leg - much improved; left foot particularly with 50% improvement in erythema. Ulcers x 3 no change. Worst area of erythema is just inferior to L knee. Tender in this location. No palpable cords. Psychiatric: A+Ox3, euthymic affect Results & Data Vital Signs (Past 12 Hours) Vital Signs Temp Pulse Resp BP Pulse Ox 06/25/19 15:37 36.6 C 70 17 128/75 97 Laboratory Results Laboratory Results - last 24 hr 06/24/19 06/25/19 06/25/19 20:45 05:29 08:25 Sodium 134 L Potassium 3.8 Chloride 101 Carbon Dioxide 31 Anion Gap 2.0 L BUN 23 H Creatinine 1.02 Est Cr Clr Drug Dosing 75.1 Est GFR ( Amer) 69.7 Est GFR (Non-Af Amer) 60.2 BUN/Creatinine Ratio 22.3 H Glucose 166 H POC Glucose 202 H 190 H Calcium 8.9 06/25/19 06/25/19 12:15 17:14 Sodium Potassium Chloride Carbon Dioxide Anion Gap BUN Creatinine Est Cr Clr Drug Dosing Est GFR ( Amer) Est GFR (Non-Af Amer) BUN/Creatinine Ratio Glucose POC Glucose 257 H 142 H Calcium wound cx pending blood cx's neg PG Care Time/CCT Total # of Minutes Spent Total Time Spent with Patient: Total time spent is greater than 50% in coordination of care (as documented) at patient's floor/unit and/or counseling patient: (1) Diabetic neuropathy Diabetes mellitus complication detail: diabetic polyneuropathy Diabetes mellitus type: type 2 Qualified Code(s): E11.42 - Type 2 diabetes mellitus with diabetic polyneuropathy (2) Sleep apnea Sleep apnea type: obstructive Qualified Code(s): G47.33 - Obstructive sleep apnea (adult) (pediatric) (3) Diabetic foot ulcer Diabetes mellitus type: type 2 Diabetic foot ulcer location: heel Laterality: left Non-pressure ulcer stage: with other severity Qualified Code(s): E11.621 - Type 2 diabetes mellitus with foot ulcer; L97.428 - Non- pressure chronic ulcer of left heel and midfoot with other specified severity (4) Diarrhea Diarrhea type: unspecified type Qualified Code(s): R19.7 - Diarrhea, unspecified (5) Diabetes mellitus type 2, uncontrolled Glycemic state: with hyperglycemia Qualified Code(s): E11.65 - Type 2 diabetes mellitus with hyperglycemia (6) Hypertension Hypertension type: essential hypertension Qualified Code(s): I10 - Essential (primary) hypertension
[2019-06-25] MEDS: LOSARTAN POTASSIUM 50 MG TAB PO SCH (20:12)
[2019-06-25] MEDS: ENOXAPARIN INJ 40 MG/0.4 ML SYR SQ SCH (21:36)
[2019-06-26] MEDS: metroNIDAZOLE 500 MG/100 ML BAG IV SCH ×3 (01:47→17:54)
[2019-06-26] MEDS: CEFEPIME 2,000 MG in SYRINGE 7.5 ML IV SCH ×2 (05:15→17:50)
[2019-06-26] MEDS: TRAMADOL HCL 50 MG TABLET PO PRN ×2 (07:56→17:53)
[2019-06-26] MEDS ORDERED: VANCOMYCIN TROUGH ONE (08:30)
[2019-06-26] MEDS: LACTOBACILLUS ACIDOPHILUS (FLORANEX) TAB PO SCH ×3 (09:15→17:48)
[2019-06-26] MEDS: METFORMIN HCL 500 MG TAB PO SCH ×2 (09:16→17:48)
[2019-06-26] MEDS: ROSUVASTATIN CALCIUM 20 MG TAB PO SCH (09:16)
[2019-06-26] MEDS: ASPIRIN 81 MG ECTAB PO SCH (09:17)
[2019-06-26] MEDS: METOPROLOL TARTRATE 25 MG TAB PO SCH ×2 (09:18→21:08)
[2019-06-26] MEDS: MAGNESIUM OXIDE 400 MG TAB PO SCH (09:18)
[2019-06-26] MEDS: GABAPENTIN 600 MG TAB PO SCH ×3 (09:19→21:13)
[2019-06-26] MEDS: CHOLECALCIFEROL 1,000 UNITS TAB PO SCH (09:19)
[2019-06-26] MEDS: INSULIN ASPART 100 UNITS/ML 3 ML PEN SC SCH ×4 (09:23→21:13)
[2019-06-26] MEDS: INSULIN GLARGINE 100 UNIT/ML VIAL SC SCH ×2 (09:23→21:10)
[2019-06-26 11:33] LABS: Creatinine Clr Calc Pharmacy 57.6 ml/min; Est GFR (African American) 50.6; Est GFR (Non-African American) 43.6
[2019-06-26] MEDS: POLYETHYLENE (MIRALAX) 17 GM PACK PO SCH (13:31)
--- NOTE | 2019-06-26 14:52 | Ultrasound Report ---
ULTRASOUND LEFT LOWER EXTREMITY ARTERIAL CLINICAL HISTORY: Left foot ulcer. COMPARISON STUDY: No priors. TECHNIQUE: Real-time, grayscale, and color Doppler sonography of the arteries of the left lower extre mity is performed from the inguinal crease to the foot. The vessels were noncompressible and ankle-br achial indices could not be assessed. FINDINGS: There is atherosclerotic plaque and irregularity seen throughout the arteries of the left l ower extremity. There are triphasic waveforms in the common femoral artery, which is patent with [place] measuring up to 205 cm/s. The profunda femoris artery is patent with velocities measuring up t o 145 cm/s. There are triphasic to biphasic waveforms in the superficial femoral artery. Velocities within the proximal and mid portions of the superficial femoral artery measure up to 230 cm/s. There are biphasic waveforms in the popliteal artery with velocities measuring up to 51 cm/s. There is blun morgan arterial upstroke in the distal popliteal artery. There is blunted arterial upstroke in the calf vessels. There is two-vessel runoff to the foot. Velocities in the anterior tibial artery measure up to 23 cm/s and velocities in the posterior tibial artery measure up to 17 cm/s. No flow was seen with in the peroneal artery. The dorsalis pedis artery is patent with velocities measuring up to 26 cm/s. IMPRESSION: 1. Peripheral vascular disease as above. 2. There are elevated velocities in the proximal to mid portions of the superficial femoral artery elder ggesting high-grade stenosis. 3. There is occlusion of the left peroneal artery. Electronically signed by: Albin Dior M.D. 06/26/2019 2:51 PM
--- NOTE | 2019-06-26 15:00 | Pharmacy Report ---
Pharmacy Abx Dose Short Note - Date of Service June 26, 2019 - Assessment & Plan Assessment 58 year old F receiving vancomycin, cefepime, and flagyl for treatment of ssti Day # 3 of antimicrobial therapy. Plan Vancomycin * Trough level came back supratherapeutic today at ~26 mg/ml (goal ~15 mcg/ml for cellulitis +abscess). Xrays negative for osteomyelitis * Blood cultures are no growth and preliminary foot cultures positive for staph aureus * Will continue with vancomycin for now until final cultures return - nurse did not hang 0900 dose, therefore spoke with her to hold dose for that time due to supratherapeutic level * Estimated kinetics based upon level: t1/2~16 hrs, ke~0.043 hr-1, CrCl 57 ml/min * Will redose with vancomycin 1250 mg iv q 18 hrs to achieve a lower trough level. Patient with BMI >/=35 kg/m2 therefore will monitor closely for accumulation with medication * Of note, patient's Scr also trending up, will monitor closely Pharmacy will continue to follow and will adjust dose/frequency as necessary. Thank you.
[2019-06-26] MEDS ORDERED: FUROSEMIDE 40 MG TAB PO ONE (17:03)
[2019-06-26] MEDS: FUROSEMIDE 40 MG TAB PO SCH (17:46)
[2019-06-26] MEDS ORDERED: VANCOMYCIN HCL 1,250 MG in SODIUM CHLORIDE 0.9% 250 ML IV SCH (18:00)
[2019-06-26] MEDS ORDERED: bisacodyL 5 MG TABEC PO ONE (20:56)
[2019-06-26] MEDS ORDERED: POLYETHYLENE (MIRALAX) 17 GM PACK PO ONE (20:56)
--- NOTE | 2019-06-26 20:57 | Hospitalist Progress Note ---
Date of Service June 26, 2019 Assessment & Plan (1) Cellulitis of left lower extremity: Improved. Only area that has not improved is focal region below left knee. s/p dalvance on 06/18. Now on cefepime/vanco/flagyl. Culture from Left lateral foot wound growing staph aureus - sensitivities pending. Cont above abx as is. Blood cx's neg. Ct tib-fib -- no nec fasc; no abscess; no osteomyelitis; etc. MRI left foot - no deep infection; no osteomyelitis; etc. Appreciate wound care team consult. venous doppler of LLE was neg for DVT/phlebitis. will repeat an u/s of soft tissue of area of concern on the high rosenberg to r/o developing abscess. elevate, ice as needed for pain; pain meds as well. (2) Diabetic foot ulcer: left foot x 3 with largest ulcer likely needing debridement. consult placed to Dr Lucero. wound care nurse consultation appreciated. cont local wound care. Rx for cellulitis as above. concern for PAD - see arterial duplex report. will ask Dr Cr from cardiology to see in consult. (3) Diabetes mellitus type 2, uncontrolled: IMPROVING nicely with yesterday's changes. Cont basal insulin 65 units BID of lantus. Cont Novolog - correct factor of 8; carb ratio 1:2. BSGs ac/hs. DM diet. (4) Chronic kidney disease (CKD), stage III (moderate): Cr slightly higher than baseline. Repeat am. (5) Morbid obesity: BMI 50 (6) Diabetic neuropathy: Cont gabapentin as previous. Needs to be fitted for DM shoes - refer as outpatient. (7) Dyslipidemia: Cont statin (8) Hypertension: cont all outpatient meds resume lasix 40mg alternating with 80mg per home regimen (9) Sleep apnea: patient did not mention this as part of her PMH and did not mention using CPAP/BIPAP at home. will address while here. (10) Constipation: KUB x-rays -- severe constipation/fecal load recent "diarrhea" was likely overflow stooling constipation is cause of fullness, bloating, nausea, etc dulcolax po x 1 now miralax po x 1 now then daily senna with miralax (11) PAD (peripheral artery disease): severe - as noted on arterial duplex cont statin cont asa will ask Dr Cr to see in consult - could potentially need arteriogram for definitive diagnosis defer to Dr Cr (12) DVT prophylaxis: lovenox 40mg daily overall progressing nicely Subjective patient c/o abdominal fullness and nausea. started this am. had very small stool -firm/hard- did not relieve the nausea/fullness symptoms. hard time eating today because of above symptoms. no vomiting. she also continues to have significant pain just below the left knee. rest of leg feels ok. she is quite pleased by the appearance of the left foot and distal leg - cellulitis in these areas is essentially gone. denies left knee pain. Review of Systems Constitutional: no fever and no chills Respiratory: no cough and no dyspnea Cardiovascular: no chest pain Gastrointestinal: as per Subjective / HPI and + bloating; no diarrhea/loose stools Musculoskeletal: no joint pain Integumentary: + skin ulcer and + erythema Physical Exam Constitutional: well developed, well nourished and + morbidly obese; no acute distress and no altered mental status ENMT: external ear and nose normal, oropharynx normal Respiratory: normal respiratory effort, lungs clear to auscultation Cardiovascular: Rate/Rhythm: regular rate and regular rhythm Heart Sounds: normal S1 and normal S2; no murmur Vessels: posterior tibial pulses present (1+ on left, 2+ right) and dorsalis pedis pulses present (1+ left, 2+ right); no JVD and + popliteal pulses abnormal (cannot palpate Left popliteal) Extremit ies: normal capillary refill (2 seconds - left foot) and + edema (LLE>RLE) Gastrointestinal (Abdomen): normal bowel sounds, soft, nontender, no hepatosplenomegaly Inspection/Auscultation: + abdomen distended Musculoskeletal: no pain or tenderness with passive / active ROM left knee; no effusion Skin: left distal leg and left foot cellulitis nearly resolved; focal area of tender erythema inferior to left knee; there is no obvious abscess or crepitus in this region but is tender to palpation. Psychiatric: A+Ox3, euthymic affect Results & Data Vital Signs (Past 12 Hours) Vital Signs Temp Pulse Resp BP Pulse Ox 06/26/19 14:53 36.7 C 73 16 126/72 98 Laboratory Results Laboratory Results - last 24 hr 01/16/20 01/17/20 01/17/20 20:57 08:06 08:19 Creatinine Est Cr Clr Drug Dosing Est GFR ( Amer) Est GFR (Non-Af Amer) POC Glucose 110 H 113 H Vancomycin Trough 26.3 06/26/19 06/26/19 06/26/19 08:20 11:55 17:11 Creatinine 1.33 H D Est Cr Clr Drug Dosing 57.6 Est GFR ( Amer) 50.6 Est GFR (Non-Af Amer) 43.6 POC Glucose 232 H 177 H Vancomycin Trough PG Care Time/CCT Total # of Minutes Spent Total Time Spent with Patient: Total time spent is greater than 50% in coordination of care (as documented) at patient's floor/unit and/or counseling patient: (1) Diabetic neuropathy Diabetes mellitus complication detail: diabetic polyneuropathy Diabetes mellitus type: type 2 Qualified Code(s): E11.42 - Type 2 diabetes mellitus with diabetic polyneuropathy (2) Sleep apnea Sleep apnea type: obstructive Qualified Code(s): G47.33 - Obstructive sleep apnea (adult) (pediatric) (3) Diabetic foot ulcer Diabetes mellitus type: type 2 Diabetic foot ulcer location: heel Laterality: left Non-pressure ulcer stage: with other severity Qualified Code(s): E11.621 - Type 2 diabetes mellitus with foot ulcer; L97.428 - Non- pressure chronic ulcer of left heel and midfoot with other specified severity (4) Diabetes mellitus type 2, uncontrolled Glycemic state: with hyperglycemia Qualified Code(s): E11.65 - Type 2 diabetes mellitus with hyperglycemia (5) Hypertension Hypertension type: essential hypertension Qualified Code(s): I10 - Essential (primary) hypertension (6) Constipation Constipation type: other constipation type Qualified Code(s): K59.09 - Other constipation
[2019-06-26] MEDS: LOSARTAN POTASSIUM 50 MG TAB PO SCH (21:10)
[2019-06-26] MEDS: ENOXAPARIN INJ 40 MG/0.4 ML SYR SQ SCH (21:12)
--- NOTE | 2019-06-26 21:12 | Ultrasound Report ---
US extremity non-vascular ltd CLINICAL HISTORY: 58 years-old Female presenting with redness/pain; left rosenberg just below knee; absces s?. TECHNIQUE: Real-time grayscale ultrasound imaging of the left lower leg was performed for a focused e valuation at the site of clinical concern. Color and power Doppler ultrasound imaging was also perfor med. COMPARISON: CT from 06/24/2019. FINDINGS: At the site of clinical concern along the left proximal lower leg, extensive subcutaneous edema and s kin thickening evident. There is also laminar fluid tracking along the superficial fascia. Mild hyper emia of the subcutaneous fat on color and power Doppler. No focal fluid collection. IMPRESSION: 1. Subcutaneous edema and laminar superficial fascial fluid. Cellulitis is suspected given hyperemia . No abscess. ACT 112: Negative or not required by law. Electronically signed by: Daniele Avila M.D. 06/26/2019 9:11 PM
--- NOTE | 2019-06-26 21:14 | XRay Report ---
XR abdomen 2V w PA chest CLINICAL HISTORY: 58 years-old Female presenting with abd distension; constipation; assess fecal load . TECHNIQUE: PA view of the chest and supine and upright views of the abdomen were obtained. COMPARISON: 09/16/2018. FINDINGS: Cardiac silhouette top normal in size. Lungs and pleural spaces clear. Cholecystectomy clips noted. Marked stool burden throughout the colon. Patient body habitus limits ev aluation. Nonobstructive bowel gas pattern. No gross pneumoperitoneum. Allowing for bowel gas and stool, no calcifications to suggest nephrolithiasis. Atherosclerosis. Osseous structures normal. IMPRESSION: 1. No acute cardiopulmonary disease. 2. Surinder stool burden throughout the colon consistent with constipation. Patient body habitus limits evaluation by radiograph. ACT 112: Negative or not required by law. Electronically signed by: Daniele Avila M.D. 06/26/2019 9:12 PM
[2019-06-27] MEDS: ACETAMINOPHEN 500 MG TAB PO PRN ×2 (00:07→21:01)
[2019-06-27] MEDS: TRAMADOL HCL 50 MG TABLET PO PRN ×4 (00:07→21:39)
[2019-06-27] MEDS: metroNIDAZOLE 500 MG/100 ML BAG IV SCH ×3 (03:00→18:03)
[2019-06-27] MEDS: CEFEPIME 2,000 MG in SYRINGE 7.5 ML IV SCH ×2 (04:41→17:17)
[2019-06-27 06:23] LABS: BUN Creatinine Ratio 21.3 (10-20); Creatinine Clr Calc Pharmacy 54.7 ml/min; Est GFR (African American) 47.5; Potassium 4.2 mmol/L (3.5-5.1)
[2019-06-27] MEDS: INSULIN ASPART 100 UNITS/ML 3 ML PEN SC SCH ×4 (09:34→21:07)
[2019-06-27] MEDS: LACTOBACILLUS ACIDOPHILUS (FLORANEX) TAB PO SCH ×3 (09:35→17:24)
[2019-06-27] MEDS: ROSUVASTATIN CALCIUM 20 MG TAB PO SCH (09:36)
[2019-06-27] MEDS: ASPIRIN 81 MG ECTAB PO SCH (09:36)
[2019-06-27] MEDS: METFORMIN HCL 500 MG TAB PO SCH ×2 (09:36→17:25)
[2019-06-27] MEDS: METOPROLOL TARTRATE 25 MG TAB PO SCH ×2 (09:37→21:01)
[2019-06-27] MEDS: MAGNESIUM OXIDE 400 MG TAB PO SCH (09:37)
[2019-06-27] MEDS: GABAPENTIN 600 MG TAB PO SCH ×3 (09:37→21:01)
[2019-06-27] MEDS: CHOLECALCIFEROL 1,000 UNITS TAB PO SCH (09:38)
[2019-06-27] MEDS: INSULIN GLARGINE 100 UNIT/ML VIAL SC SCH ×2 (09:38→21:06)
[2019-06-27] MEDS: SENNA 8.6 MG TAB PO SCH (09:46)
[2019-06-27] MEDS: POLYETHYLENE (MIRALAX) 17 GM PACK PO SCH ×4 (09:46→18:01)
[2019-06-27] MEDS: FUROSEMIDE 40 MG TAB PO SCH (10:29)
--- NOTE | 2019-06-27 10:32 | Hospitalist Progress Note ---
Date of Service June 27, 2019 Assessment & Plan (1) Cellulitis of left lower extremity: Clinically improved each day. s/p dalvance on 06/18 during ER visit. Then placed on cefepime/vanco/flagyl at admission. Culture from Left lateral foot wound grew MSSA. Will stop vanco. Cont cefepime/flagyl (latter anaerobe coverage since she is diabetic). Ct tib-fib -- no nec fasc; no abscess; no osteomyelitis; etc. MRI left foot - no deep infection; no osteomyelitis; etc. focal u/s of upper left rosenberg last evening - no developing abscess. This region is improved today. venous doppler of LLE was neg for DVT/phlebitis. Will ask Dr Multani from ID to see in consult for final abx recommendations in light of possible failed dalvance. Does have LLE PAD - Dr Cr consult placed. (2) Diabetic foot ulcer: left foot x 3 with largest ulcer with MSSA. consult placed to Dr Lucero. wound care nurse consultation appreciated. cont local wound care. Rx for cellulitis as above. concern for PAD - see arterial duplex report. Dr Cr from cardiology to see in consult. Dr Multani to see from ID. (3) Diabetes mellitus type 2, uncontrolled: Control remains acceptable. Cont basal insulin 65 units BID of lantus. Cont Novolog - correct factor of 8; carb ratio 1:2. BSGs ac/hs. DM diet. (4) Chronic kidney disease (CKD), stage III (moderate): Cr baseline about 1.3. Today's Cr 1.4. repeat BMP am. (5) Morbid obesity: BMI 50 (6) Diabetic neuropathy: Cont gabapentin as previous. Needs to be fitted for DM shoes - refer as outpatient. (7) Dyslipidemia: Cont statin (8) Hypertension: cont all outpatient meds including lasix 40mg alternating with 80mg per home regimen (9) Sleep apnea: patient did not mention this as part of her PMH and did not mention using CPAP/BIPAP at home. will address while here. (10) Constipation: KUB x-rays -- severe constipation/fecal load recent "diarrhea" was likely overflow stooling despite dulcolax/miralax last pm still no BM miralax x 3 doses serially add senna 2 tabs daily (11) PAD (peripheral artery disease): severe - as noted on arterial duplex cont statin cont asa Dr Cr to see in consult - could potentially need arteriogram for definitive diagnosis defer to Dr Cr (12) DVT prophylaxis: lovenox 40mg daily overall progressing nicely hopefully home tomorrow Subjective area of discomfort just below left knee is improved today. it was intensely red yesterday but improved today. erythema of left foot is improved. erythema of distal left leg is improved. eating well. still no BM despite multiple meds for constipation. able to eat today. no nausea. Review of Systems Constitutional: no fever and no chills Respiratory: no dyspnea Cardiovascular: no chest pain Physical Exam Constitutional: well developed, well nourished and + morbidly obese; no acute distress and no altered mental status ENMT: external ear and nose normal, oropharynx normal Respiratory: normal respiratory effort, lungs clear to auscultation Cardiovascular: Rate/Rhythm: regular rate and regular rhythm Heart Sounds: normal S1 and normal S2; no murmur Vessels: posterior tibial pulses present (1+ on left, 2+ right) and dorsalis pedis pulses present (1+ left, 2+ right); no JVD and + popliteal pulses abnormal (cannot palpate Left popliteal) Extremities: normal capillary refill (2 seconds - left foot) and + edema (LLE>RLE) Gastrointestinal (Abdomen): normal bowel sounds, soft, nontender, no hepatosplenomegaly Inspection/Auscultation: + abdomen distended Skin: cellulitis left foot nearly resolved. distal left leg erythema improved. erythema inferior to left knee improved. no tenderness to palpation over upper rosenberg today. ulcers on left foot - no change from prior examination. Psychiatric: A+Ox3, euthymic affect Results & Data Vital Signs (Past 12 Hours) Vital Signs Temp Pulse Resp BP Pulse Ox 06/27/19 09:31 72 112/72 06/27/19 07:25 36.4 C L 67 16 117/69 100 06/26/19 23:06 36.8 C 72 14 123/71 100 Laboratory Results Laboratory Results - last 24 hr 06/26/19 06/26/19 06/26/19 08:20 11:55 17:11 Sodium Potassium Chloride Carbon Dioxide Anion Gap BUN Creatinine 1.33 H D Est Cr Clr Drug Dosing 57.6 Est GFR ( Amer) 50.6 Est GFR (Non-Af Amer) 43.6 BUN/Creatinine Ratio Glucose POC Glucose 232 H 177 H Calcium 06/26/19 06/27/19 06/27/19 20:46 05:09 08:32 Sodium 136 Potassium 4.2 Chloride 102 Carbon Dioxide 29 Anion Gap 5.0 BUN 30 H Creatinine 1.40 H Est Cr Clr Drug Dosing 54.7 Est GFR ( Amer) 47.5 Est GFR (Non-Af Amer) 41.0 BUN/Creatinine Ratio 21.3 H Glucose 121 H POC Glucose 141 H 116 H Calcium 9.0 blood cx's neg x 2 wound cx, left foot, MSSA PG Care Time/CCT Total # of Minutes Spent Total Time Spent with Patient: Total time spent is greater than 50% in coordination of care (as documented) at patient's floor/unit and/or counseling patient: (1) Diabetic neuropathy Diabetes mellitus complication detail: diabetic polyneuropathy Diabetes mellitus type: type 2 Qualified Code(s): E11.42 - Type 2 diabetes mellitus with diabetic polyneuropathy (2) Sleep apnea Sleep apnea type: obstructive Qualified Code(s): G47.33 - Obstructive sleep apnea (adult) (pediatric) (3) Diabetic foot ulcer Diabetes mellitus type: type 2 Diabetic foot ulcer location: heel Laterality: left Non-pressure ulcer stage: with other severity Qualified Code(s): E11.621 - Type 2 diabetes mellitus with foot ulcer; L97.428 - Non- pressure chronic ulcer of left heel and midfoot with other specified severity (4) Diabetes mellitus type 2, uncontrolled Glycemic state: with hyperglycemia Qualified Code(s): E11.65 - Type 2 diabetes mellitus with hyperglycemia (5) Hypertension Hypertension type: essential hypertension Qualified Code(s): I10 - Essential (primary) hypertension (6) Constipation Constipation type: other constipation type Qualified Code(s): K59.09 - Other constipation
--- NOTE | 2019-06-27 16:53 | Vascular Medicine Consultation ---
Date of Consultation June 27, 2019 Assessment & Plan (1) PAD (peripheral artery disease): 2. Diabetic Left lower extremity ulcerations with associated cellulitis 3. Type 2 diabetes complicated by peripheral neuropathy 4. Mild acute on chronic kidney disease 5. Chronic lower extremity edema/venous insufficiency/lymphedema 6. Hypertension 7. Dyslipidemia Patient here with recurrent left lower extremity ulcerations and associated cellulitis. She endorses limiting thigh claudication and possible left foot ischemic rest pain. Arterial duplex suggestive of SFA/popliteal and tibial vessel disease on the left. Exam, prior KOMAL/TBI pressures from November 2018 suggest possible severe arterial insufficiency and high potential benefit for revascularization (WIfI 1,2,1). Recommend proceeding with lower extremity angiogram. Discussed risks, benefits, alternatives of procedure with patient and she is willing to proceed. If still here we will plan to do on Saturday morning. If discharged will arrange for as an outpatient. Thank you for allowing us to participate in the care of this patient. Please contact with any questions. History of Present Illness Attending Physician: Kaden Kevin History of Present Illness Mrs. Simpson is a very pleasant 58-year-old woman with a history of type 2 diabetes complicated by peripheral neuropathy and nephropathy, dyslipidemia, obesity with ALLY admitted with left lower extremity ulcerations and cellulitis. Patient followed by Dr. Gutierrez for atrial, ventricular ectopy and ASCVD risk factor modification. No prior cardiac procedures. No prior vascular procedures. Previously seen at [facility] wound care center in September 2018 for right lower extremity venous stasis ulcerations. Venous reflux study at that time showed dilated GSV's with varices but no significant reflux. KOMAL right 0.6, left 0.59. TBI right 0.35 (43 mmHg), left 0.45 (55 mmHg). Wound was healed with standard wound care, compression. Reports prior ulceration over lateral aspect of her left foot just proximal to fifth digit occurring years ago treated by podiatry. States took at least 6 months to heal. Today reports that she has had an ulcer on the lateral aspect of her left foot for the last month with an ulcer developing on her posterior heel around that time as well. Has been dressing at home not on antibiotics previously. Patient reports walking at baseline with a cane. Limited walking of any grade due to pain primarily in her thighs bilaterally. Pain resolves with rest. Also reports some pain at rest in her feet/toes worse on the left than right. Admitted 3 days ago after redness spread up her leg to her knee with subjective fevers/chills. Has been treated with IV broad-spectrum biotics with improvement in redness. Denies fevers. Wound cultures positive for MSSA. MRI negative for osteomyelitis. Arterial duplex with triphasic proximal waveforms, mid to distal SFA stenosis (PSV 230). Blunted waveforms in ARIAS, RUBBER GOODS INSPECTOR TESTER, peroneal occluded. Allergies Allergy/AdvReac Type Severity Reaction Status Date / Time amoxicillin Allergy Intermediate HIVES Verified 06/24/19 15:59 clavulanic acid Allergy Intermediate HIVES Verified 06/24/19 15:59 lisinopril AdvReac Unknown NAUSEA/VOMI Verified 06/24/19 15:59 TING Home Medications Home Medications Medication Instructions Recorded Confirmed Type cholecalciferol (vitamin D3) 5,000 units PO QAM 09/16/18 06/24/19 History [Vitamin D3] furosemide 40 mg PO 4XWK 09/16/18 06/24/19 History furosemide 80 mg PO 3XWK 09/16/18 06/24/19 History gabapentin 600 mg PO TID 09/16/18 06/24/19 History losartan 50 mg PO HS 09/16/18 06/24/19 History magnesium oxide 500 mg PO QAM 09/16/18 06/24/19 History metoprolol tartrate 25 mg PO BID 09/16/18 06/24/19 History insulin regular human [Novolin R 70 unit SUBCUT TID 01/15/19 06/24/19 History Regular U-100 Insuln] rosuvastatin 40 mg PO QAM 01/15/19 06/24/19 History acetaminophen [Tylenol Extra 1,000 mg PO Q6H PRN 06/18/19 06/24/19 History Strength] ciprofloxacin HCl 500 mg PO BID #14 tab 06/18/19 06/24/19 Rx aspirin 81 mg PO QAM 06/24/19 06/24/19 History docusate sodium [Stool Softener] 100 mg PO BID 06/24/19 06/24/19 History insulin degludec [Tresiba 110 unit SUBCUT HS 06/24/19 06/24/19 History FlexTouch U-200] metformin 500 mg PO BID 06/24/19 06/24/19 History tramadol 50 mg PO Q6H PRN 06/24/19 06/24/19 History Patient History Medical History Charcot's joint of foot due to diabetes (Chronic) Chronic kidney disease (CKD), stage III (moderate) (Chronic) Diabetes mellitus, type 2 (Chronic) Diabetic neuropathy (Chronic) Dyslipidemia (Chronic) GERD (gastroesophageal reflux disease) (Chronic) Hypertension (Chronic) Morbid obesity Osteoarthritis (Chronic) Sleep apnea (Chronic) Surgical History History of lumpectomy of right breast (Chronic) Hx of hand surgery RIGHT HAND Status post colonoscopy (Chronic) "2012- 2 hyperplastic + 1 adenomatous polyps; 2016- normal" Status post tonsillectomy (Chronic) Status post tubal ligation (Chronic) Family History Mother Rheumatoid arthritis Father Emphysema of lung Peripheral artery disease Social History Preferred Language: [place] Communication Ability: Effective 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 Beliefs That Will Affect Care: None marital status: Current Living Situation: Spouse Current Living Situation Comment: reports her son is also in poor health at this time current occupational status: disabled other: previous worked at [employer] Feels Safe at Home: Yes Smoking Status: Former smoker Cigarettes Per Day: 1.5-2ppd ; Smoking End Date: 2014 ; Second Hand Exposure: No ; Hx Alcohol Use: No Hx Substance Use: No Review of Systems Review of Systems: All systems reviewed & are unremarkable except as noted in HPI & below Physical Exam Physical Exam: General: Comfortable, no acute distress Eyes: Sclerae anicteric, extraocular movements intact HENT: Oropharynx clear mucous membranes moist Neck: Normal carotid upstrokes, no bruits. Lungs: Clear to auscultation bilaterally, no rhonchi or wheezes Cardiac: Regular rate and rhythm, 2 out of 6 systolic ejection murmur Abdomen: Soft, nontender, obese Neuro: Nonfocal Psych: Alert orient x3, normal affect and mood Extremities/Vascular: --Improving, light erythema up to below the knee -- 2+ radial bilaterally --Nonpalpable DP/PT pulses on left. Nonpalpable DP on right, 1+ PT on right --1-2+ lower extremity edema bilaterally to above the ankles --Few reticular veins, small varicosities and telangiectasias --Subcentimeter superficial ulcerations over lateral left mid, hindfoot. Small superficial ulceration over posterior heel Results & Data Vital Signs (Past 12 Hours) Vital Signs Temp Pulse Resp BP Pulse Ox 06/27/19 15:15 98.1 F 68 16 112/67 98 06/27/19 09:31 72 112/72 06/27/19 07:25 97.5 F L 67 16 117/69 100 PG Care Time/CCT Total # of Minutes Spent Total Time Spent with Patient: Total time spent is greater than 50% in coordination of care (as documented) at patient's floor/unit and/or counseling patient:
[2019-06-27] MEDS: LOSARTAN POTASSIUM 50 MG TAB PO SCH (21:02)
[2019-06-27] MEDS: ENOXAPARIN INJ 40 MG/0.4 ML SYR SQ SCH (21:02)
[2019-06-28] MEDS: metroNIDAZOLE 500 MG/100 ML BAG IV SCH (02:16)
[2019-06-28] MEDS ORDERED: VANCOMYCIN TROUGH ONE (05:30)
[2019-06-28] MEDS: CEFEPIME 2,000 MG in SYRINGE 7.5 ML IV SCH (05:30)
[2019-06-28 06:22] LABS: Hematocrit (blood only) 28.8 % (37-47); Hemoglobin 9.4 g/dL (12.0-16.0); Mean Corpuscular Hemoglobin 27.3 pg (25-34); Mean Corpuscular Hgb Conc 32.6 g/dL (32-36); Mean Corpuscular Volume 83.7 fL (80-100); Platelet Count 224 K/uL (130-400); RDW Coefficient of Variation 16.6 % (11.5-14.5); Red Blood Count 3.44 M/uL (4.2-5.4); White Blood Count 9.07 K/uL (4.8-10.8)
[2019-06-28 06:49] LABS: BUN Creatinine Ratio 23.4 (10-20); Creatinine Clr Calc Pharmacy 58.4 ml/min; Est GFR (African American) 51.5; Est GFR (Non-African American) 44.5; Potassium 4.2 mmol/L (3.5-5.1)
--- NOTE | 2019-06-28 07:22 | Infectious Disease Consult ---
Date of Consultation June 28, 2019 Assessment & Plan (1) Cellulitis of left leg: will placed on doxycyline for MSSA - allergy to pcn noted. can stop gram negative coverage. would suggest 3 weeks doxy and continued f/u at wound center post d/c from hospital. History of Present Illness Attending Physician: Kaden Kevin pt admitted with lle cellulitis. follows at wound center. wbc 06/24 9.7, ESR 77 creat 1.4 blood cultures negative, afebrile since admission. she is on cefepime and flagyl. was on vanco, recently d/c. 06/24 ct leg negative for abscess, osteo. MRI negative as well. wound culture growing MSSA, had received Dalvance recnetly. she is tolerating abx. she denies f/c. pain is improving but states she gets an occasional cramp in leg. no abd pain, no n/v/d. no cp, sob, cough. Allergies Allergy/AdvReac Type Severity Reaction Status Date / Time amoxicillin Allergy Intermediate HIVES Verified 06/24/19 15:59 clavulanic acid Allergy Intermediate HIVES Verified 06/24/19 15:59 lisinopril AdvReac Unknown NAUSEA/VOMI Verified 06/24/19 15:59 TING Home Medications Home Medications Medication Instructions Recorded Confirmed Type cholecalciferol (vitamin D3) 5,000 units PO QAM 09/16/18 06/24/19 History [Vitamin D3] furosemide 40 mg PO 4XWK 09/16/18 06/24/19 History furosemide 80 mg PO 3XWK 09/16/18 06/24/19 History gabapentin 600 mg PO TID 09/16/18 06/24/19 History losartan 50 mg PO HS 09/16/18 06/24/19 History magnesium oxide 500 mg PO QAM 09/16/18 06/24/19 History metoprolol tartrate 25 mg PO BID 09/16/18 06/24/19 History insulin regular human [Novolin R 70 unit SUBCUT TID 01/15/19 06/24/19 History Regular U-100 Insuln] rosuvastatin 40 mg PO QAM 01/15/19 06/24/19 History acetaminophen [Tylenol Extra 1,000 mg PO Q6H PRN 06/18/19 06/24/19 History Strength] ciprofloxacin HCl 500 mg PO BID #14 tab 06/18/19 06/24/19 Rx aspirin 81 mg PO QAM 06/24/19 06/24/19 History docusate sodium [Stool Softener] 100 mg PO BID 06/24/19 06/24/19 History insulin degludec [Tresiba 110 unit SUBCUT HS 06/24/19 06/24/19 History FlexTouch U-200] metformin 500 mg PO BID 06/24/19 06/24/19 History tramadol 50 mg PO Q6H PRN 06/24/19 06/24/19 History Patient History Medical History Charcot's joint of foot due to diabetes (Chronic) Chronic kidney disease (CKD), stage III (moderate) (Chronic) Diabetes mellitus, type 2 (Chronic) Diabetic neuropathy (Chronic) Dyslipidemia (Chronic) GERD (gastroesophageal reflux disease) (Chronic) Hypertension (Chronic) Morbid obesity Osteoarthritis (Chronic) Sleep apnea (Chronic) Surgical History History of lumpectomy of right breast (Chronic) Hx of hand surgery RIGHT HAND Status post colonoscopy (Chronic) "2012- 2 hyperplastic + 1 adenomatous polyps; 2016- normal" Status post tonsillectomy (Chronic) Status post tubal ligation (Chronic) Family History Mother Rheumatoid arthritis Father Emphysema of lung Peripheral artery disease Social History Preferred Language: Chilean Communication Ability: Effective Inspector Final Assembly Conveyor Line Required: No Beliefs That Will Affect Care: None marital status: Current Living Situation: Spouse Current Living Situation Comment: reports her son is also in poor health at this time current occupational status: disabled other: previous worked [facility] [employer] Feels Safe at Home: Yes Smoking Status: Former smoker Cigarettes Per Day: 1.5-2ppd ; Smoking End Date: 2014 ; Second Hand Exposure: No ; Hx Alcohol Use: No Hx Substance Use: No Review of Systems Review of Systems: All systems reviewed & are unremarkable except as noted in HPI & below Physical Exam Constitutional: WD/WN, vitals as above Eyes: PERRL, conjunctivae normal, anicteric sclerae ENMT: external ear and nose normal, oropharynx normal Neck: normal visual inspection Respiratory: normal respiratory effort, lungs clear to auscultation Cardiovascular: RRR, no murmur, no edema Gastrointestinal (Abdomen): normal bowel sounds, soft, nontender, no hepatosplenomegaly Musculoskeletal: no cyanosis or clubbing, extremities motor strength 5/5 Skin: no rashes, warm and dry + erythema (lle, no warmth non tender) Psychiatric: A+Ox3, euthymic affect Results & Data Vital Signs (Past 12 Hours) Vital Signs Temp Pulse Pulse Resp BP Pulse Ox 06/27/19 23:24 36.6 C 72 18 113/72 97 06/27/19 20:59 72 116/70 97 Laboratory Results Microbiology 06/24/19 15:30 Foot Gram Stain - Final 06/24/19 15:30 Foot Wound Culture - Final Staphylococcus aureus 06/24/19 16:17 Blood Aerobic Blood Culture - Preliminary No growth in Aerobic bottle after 48 hours. 06/24/19 16:17 Blood Anaerobic Blood Culture - Preliminary No growth in Anaerobic bottle after 48 hours. 06/24/19 16:20 Blood Aerobic Blood Culture - Preliminary No growth in Aerobic bottle after 48 hours. 06/24/19 16:20 Blood Anaerobic Blood Culture - Preliminary No growth in Anaerobic bottle after 48 hours. PG Care Time/CCT Total # of Minutes Spent Total Time Spent with Patient: Total time spent is greater than 50% in coordination of care (as documented) at patient's floor/unit and/or counseling patient:
[2019-06-28] MEDS: TRAMADOL HCL 50 MG TABLET PO PRN ×3 (07:44→22:04)
[2019-06-28] MEDS ORDERED: FUROSEMIDE 40 MG TAB PO ONE (07:47)
[2019-06-28] MEDS: LACTOBACILLUS ACIDOPHILUS (FLORANEX) TAB PO SCH ×3 (08:29→17:58)
[2019-06-28] MEDS: METFORMIN HCL 500 MG TAB PO SCH ×2 (08:30→17:58)
[2019-06-28] MEDS: ASPIRIN 81 MG ECTAB PO SCH (08:31)
[2019-06-28] MEDS: ROSUVASTATIN CALCIUM 20 MG TAB PO SCH (08:31)
[2019-06-28] MEDS: GABAPENTIN 600 MG TAB PO SCH ×3 (08:32→20:47)
[2019-06-28] MEDS: FUROSEMIDE 40 MG TAB PO SCH (08:32)
[2019-06-28] MEDS: METOPROLOL TARTRATE 25 MG TAB PO SCH ×2 (08:32→20:46)
[2019-06-28] MEDS: SENNA 8.6 MG TAB PO SCH (08:33)
[2019-06-28] MEDS: DOXYCYCLINE HYCLATE 100 MG CAP PO SCH ×2 (08:34→20:47)
[2019-06-28] MEDS: CHOLECALCIFEROL 1,000 UNITS TAB PO SCH (08:35)
[2019-06-28] MEDS: POLYETHYLENE (MIRALAX) 17 GM PACK PO SCH (08:36)
[2019-06-28] MEDS: INSULIN ASPART 100 UNITS/ML 3 ML PEN SC SCH ×4 (08:41→22:00)
[2019-06-28] MEDS: INSULIN GLARGINE 100 UNIT/ML VIAL SC SCH ×2 (08:41→21:59)
--- NOTE | 2019-06-28 09:06 | Hospitalist Progress Note ---
Date of Service June 28, 2019 Assessment & Plan (1) Cellulitis of left lower extremity: Continues to Clinically improve. s/p dalvance on 06/18 during ER visit. Then placed on cefepime/vanco/flagyl at admission. Culture from Left lateral foot wound grew MSSA. Ct tib-fib -- no nec fasc; no abscess; no osteomyelitis; etc. MRI left foot - no deep infection; no osteomyelitis; etc. focal u/s of upper left rosenberg - no developing abscess. venous doppler of LLE was neg for DVT/phlebitis. arterial doppler of LLE concerning for significant PAD of left leg. Dr Multani from ID recommends stopping cefepime/flagyl today -- change to doxy 100mg BID x [address] Cr from cardiology advises arteriogram of LLE. Plan is for arteriogram on Saturday. Thus, NPO after MN tonight. Will start gentle IV fluids early tomorrow am for renal protection. (2) Diabetic foot ulcer: left foot x 3 with largest ulcer with MSSA. consult placed to Dr Lucero. wound care nurse consultation appreciated. cont local wound care. Rx for cellulitis as above. concern for PAD - see arterial duplex report. Dr Cr advising arteriogram of left leg - to happen on Saturday. Dr Multani advising 3 week course of oral doxycycline. Will need to follow with wound care center post-discharge for 3 ulcers. (3) Diabetes mellitus type 2, uncontrolled: Control remains acceptable. Cont basal insulin 65 units BID of lantus. Plan to hold am lantus tomorrow due to NPO status. Cont Novolog - correct factor of 8; carb ratio 1:2. BSGs ac/hs. DM diet. (4) Chronic kidney disease (CKD), stage III (moderate): Cr baseline about 1.3. Today's Cr 1.3. repeat BMP am for stability. IV fluids early am tomorrow for renal protection in midst of vascular procedure. (5) Morbid obesity: BMI 50 (6) Diabetic neuropathy: Cont gabapentin as previous. Needs to be fitted for DM shoes - refer as outpatient. Wound care center may be able to do this for her. (7) Dyslipidemia: Cont statin (8) Hypertension: cont all outpatient meds including lasix 40mg alternating with 80mg per home regimen (9) Sleep apnea: patient did not mention this as part of her PMH and did not mention using CPAP/BIPAP at home. will need to inquire with patient about this. (10) Constipation: KUB x-rays -- severe constipation/fecal load recent "diarrhea" was likely overflow stooling improved overnight cont senna with miralax (11) PAD (peripheral artery disease): LLE severe - as noted on arterial duplex cont statin cont asa arteriogram by Dr Cr tomorrow NPO after MN for procedure (12) DVT prophylaxis: lovenox 40mg daily overall progressing nicely with cellulitis hopefully home tomorrow following arteriogram on oral doxycycline Subjective patient feeling well. uneventful night. left rosenberg pain is largely resolved. she has noticed that if she dangles her left leg off the bed for prolonged period of time the erythema of the left leg worsens. with propping the leg in bed the erythema improves. constipation - resolved; had 2 BMs last night. no nausea. able to eat a good breakfast this am. Review of Systems Constitutional: no fever, no chills, no fatigue and no anorexia Respiratory: no cough, no dyspnea and no dyspnea on exertion Cardiovascular: + edema; no chest pain Gastrointestinal: no abdominal pain and no bloating Physical Exam Constitutional: well developed, well nourished and + morbidly obese; no acute distress and no altered mental status ENMT: external ear and nose normal, oropharynx normal Respiratory: normal respiratory effort, lungs clear to auscultation Cardiovascular: Rate/Rhythm: regular rate and regular rhythm Heart Sounds: normal S1 and normal S2; no murmur Vessels: posterior tibial pulses present (1+ on left, 2+ right) and dorsalis pedis pulses present (1+ left, 2+ right); no JVD and + popliteal pulses abnormal (cannot palpate Left popliteal) Extremities: normal capillary refill (2 seconds - left foot) and + edema (LLE>RLE; no change from prior exam) Gastrointestinal (Abdomen): normal bowel sounds, soft, nontender, no hepatosplenomegaly Skin: cellulitis markedly improved on left lower leg; proximal erythema just below the left knee is improved from yesterday's exam; nontender to palpation over this region. with dangling of the left leg the erythema worsens; with propping the leg the erythema improves; skin is minimally warm today. ulcer on achilles region - tiny, no drainage. largest ulcer lateral aspect of hindfoot with pink base, clear drainage. additional 3rd ulcer present lateral aspect of foot - clean Psychiatric: A+Ox3, euthymic affect Results & Data Vital Signs (Past 12 Hours) Vital Signs Temp Pulse Pulse Resp BP Pulse Ox 06/28/19 07:22 36.6 C 72 16 117/67 99 06/27/19 23:24 36.6 C 72 18 113/72 97 Laboratory Results Laboratory Results - last 24 hr 06/27/19 06/27/19 06/27/19 12:22 17:13 20:54 WBC RBC Hgb Hct MCV MCH MCHC RDW Std Deviation RDW Coeff of Adelina Plt Count MPV Sodium Potassium Chloride Carbon Dioxide Anion Gap BUN Creatinine Est Cr Clr Drug Dosing Est GFR ( Amer) Est GFR (Non-Af Amer) BUN/Creatinine Ratio Glucose POC Glucose 212 H 155 H 145 H Calcium 06/28/19 06/28/19 06/28/19 05:33 05:33 08:24 WBC 9.07 RBC 3.44 L Hgb 9.4 L Hct 28.8 L MCV 83.7 MCH 27.3 MCHC 32.6 RDW Std Deviation 50.0 H RDW Coeff of Adelina 16.6 H Plt Count 224 MPV 10.0 Sodium 136 Potassium 4.2 Chloride 104 Carbon Dioxide 28 Anion Gap 4.0 BUN 31 H Creatinine 1.31 H Est Cr Clr Drug Dosing 58.4 Est GFR ( Amer) 51.5 Est GFR (Non-Af Amer) 44.5 BUN/Creatinine Ratio 23.4 H Glucose 89 POC Glucose 106 H Calcium 9.0 blood cx's continue to remain negative PG Care Time/CCT Total # of Minutes Spent Total Time Spent with Patient: Total time spent is greater than 50% in coordination of care (as documented) at patient's floor/unit and/or counseling patient: (1) Diabetic neuropathy Diabetes mellitus complication detail: diabetic polyneuropathy Diabetes mellitus type: type 2 Qualified Code(s): E11.42 - Type 2 diabetes mellitus with diabetic polyneuropathy (2) Sleep apnea Sleep apnea type: obstructive Qualified Code(s): G47.33 - Obstructive sleep apnea (adult) (pediatric) (3) Diabetic foot ulcer Diabetes mellitus type: type 2 Diabetic foot ulcer location: heel Laterality: left Non-pressure ulcer stage: with other severity Qualified Code(s): E11.621 - Type 2 diabetes mellitus with foot ulcer; L97.428 - Non- pressure chronic ulcer of left heel and midfoot with other specified severity (4) Diabetes mellitus type 2, uncontrolled Glycemic state: with hyperglycemia Qualified Code(s): E11.65 - Type 2 diabetes mellitus with hyperglycemia (5) Hypertension Hypertension type: essential hypertension Qualified Code(s): I10 - Essential (primary) hypertension (6) Constipation Constipation type: other constipation type Qualified Code(s): K59.09 - Other constipation
[2019-06-28] MEDS: MAGNESIUM OXIDE 400 MG TAB PO SCH (12:44)
[2019-06-28] MEDS: ACETAMINOPHEN 500 MG TAB PO PRN (14:58)
[2019-06-28] MEDS: KETOROLAC 30 MG/ML VIAL IV PRN (18:04)
[2019-06-28] MEDS: LOSARTAN POTASSIUM 50 MG TAB PO SCH (20:47)
[2019-06-28] MEDS: ENOXAPARIN INJ 40 MG/0.4 ML SYR SQ SCH (20:47)
[2019-06-29] MEDS ORDERED: SODIUM CHLORIDE 0.9% 1000ML 1,000 ML IV SCH ×2 (04:00→11:00)
[2019-06-29] MEDS ORDERED: Nursing to Pharmacy Communication ONE (04:53)
[2019-06-29 06:12] LABS: Creatinine Clr Calc Pharmacy 48.1 ml/min; Est GFR (African American) 40.8; Est GFR (Non-African American) 35.2
[2019-06-29] MEDS: INSULIN ASPART 100 UNITS/ML 3 ML PEN SC SCH ×3 (06:12→17:04)
[2019-06-29] MEDS: TRAMADOL HCL 50 MG TABLET PO PRN ×3 (07:35→22:24)
--- NOTE | 2019-06-29 08:29 | Vascular Medicine ProgressNote ---
Date of Service June 29, 2019 Assessment & Plan (1) PAD (peripheral artery disease): 2. Diabetic Left lower extremity ulcerations with associated cellulitis 3. Type 2 diabetes complicated by peripheral neuropathy 4. Mild acute on chronic kidney disease 5. Chronic lower extremity edema/venous insufficiency/lymphedema 6. Hypertension 7. Dyslipidemia 8. Anemia Plan to proceed with left lower extremity angiogram this morning. Pending findings may need to stage intervention in the setting of mild ELROY. Subjective Feeling well this morning. Lower extremity swelling down. Erythema improved. No fevers. No other new concerns. SCr to 1.5 Hgb to 9.4 Review of Systems Review of Systems: All systems reviewed & are unremarkable except as noted in HPI & below Physical Exam Physical Exam: General: Comfortable, no acute distress Eyes: Sclerae anicteric, extraocular movements intact Lungs: Clear to auscultation bilaterally Cardiac: Regular rate and rhythm, no murmurs Abdomen: Soft, nontender Neuro: Nonfocal Psych: Alert orient x3, normal affect and mood Extremities/Vascular: -- 2+ radial bilaterally -- Dopplerable DP/PT on RT, DP on LT. Diminished cap refill on LT -- Ulceration dressing intact. No drainage or induration -- trace to 1+ edema Results & Data Vital Signs (Past 12 Hours) Vital Signs Temp Pulse Pulse Resp BP Pulse Ox 06/29/19 07:11 97.9 F 70 16 132/81 98 06/28/19 23:25 97.3 F L 66 16 125/73 100 06/28/19 20:46 70 120/58 L PG Care Time/CCT Total # of Minutes Spent Total Time Spent with Patient: Total time spent is greater than 50% in coordination of care (as documented) at patient's floor/unit and/or counseling patient:
[2019-06-29] MEDS ORDERED: fentaNYL citrate 100 MCG/2 ML VIAL ONE (08:33)
[2019-06-29] MEDS ORDERED: MIDAZOLAM HCL 1 MG/ML 2ML VIAL ONE (08:33)
[2019-06-29] MEDS ORDERED: HEPARIN (PORCINE) 1000 UNIT/ML 10 ML (CATH LAB USE ONLY) ONE (09:19)
[2019-06-29] MEDS ORDERED: CLOPIDOGREL BISULFATE 300 MG TAB ONE (10:26)
--- NOTE | 2019-06-29 10:52 | Post Anesthesia Assessment ---
Date of Service June 29, 2019 Post Sedation Assessment Vital Signs Temp Pulse Pulse Pulse Resp BP Pulse Ox 06/29/19 10:40 64 64 18 167/80 H 06/29/19 07:11 97.9 F 70 16 132/81 98 06/28/19 23:25 97.3 F L 66 16 125/73 100 06/28/19 20:46 70 120/58 L 06/28/19 15:00 98.1 F 78 18 123/71 97 Recovery Score Activity: Moves 4 extremities Respiration: Deep Breath/Cough Circulation: +/-20% PreAnes Value Consciousness: Fully Awake Oxygen Saturation: > 92% On Room Air Post Anesthesia Score: 10 Discharge Sedation Level of Care: Fast Track Phase II Post Sedation Plan On clinical assessment, the patient appears to have tolerated the sedation without complications. Patient is recovering as anticipated. Patient will continue to be monitored by nursing and may be discharged when sedation discharge criteria are met per below protocol. Upon Completions of procedure up to 15 minutes continue every 5 minute vital signs and the P.A.R. score; then discharge to a Phase I or Fast Track to Phase II per the following guidelines: * Discharge Patient to appropriate Phase II area if PAR is 8 or greater or return to pre- procedure baseline. The post - procedure orders will be as directed. * If PAR score is less than 8 or not return to pre-procedure baseline then patient will follow Phase I monitoring till PAR is reached for Phase II. The Phase I may be done in procedure room or may call to secure a Phase I area. * If naloxone or flumazenil are used for reversal, hold in Phase I for continued monitoring from when last reversal dose was given for a minimum of 60 minutes or longer pending the nurse and/or physician discretion of patient condition before discharge to Phase II. Please call the Sedation Physician to re-evaluate and complete post-note for discharge to Phase II area. Do NOT discharge from procedure sedation or Phase 1 until post- sedation evaluation note is complete by procedure /sedation MD Sedation Discharge Instructions to be given to the patient at discharge to home.
--- NOTE | 2019-06-29 11:09 | Operative Report ---
PG Post Operative Report Pre & Post Diagnosis Operation Date: 06/29/19 09:00 <No data on this case meets the specified criteria> I identified the patient and participated in the time-out.: Yes Procedure Operation Date: 06/29/19 09:00 Actual Procedures p Angio Extremity Unilateral - Simeon Cr MD Surgeon Martin Cr MD Probation Worker Osmin Estimated Blood Loss 20 Findings Consistent with Post-Op Diagnosis Aorta - No significant stenotic or aneursymal disease Right lower extremity - Iliacs, PROGRAM PRODUCTION SPECIALIST widely patent Left lower extremity - Iliacs, PROGRAM PRODUCTION SPECIALIST - widely patent SFA - Multiple 70-80% stenotic lesions in proximal and mid SFA. 100% occlusion in distal SFA (~5cm). Popliteal - patent with luminal irregularities ARIAS, Peroneal - fill via collaterals and widely patent to foot. ARIAS gives off DPA which fills pedal arch CART DRIVER - occluded proximally. Partially fills distally Specimens none Drains none Anesthesia Type RN Sedation Complications none Disposition Disposition: PCU Indications Critical limb ischemia Description of Procedure Right common femoral access obtained under ultrasound guidance, short 5Fr sheath placed LLE angiogram performed with RIM catheter Quickcross catheter placed into SFA to visualize distal vessel 5Fr 45cm Destination sheath placed from RT PROGRAM PRODUCTION SPECIALIST to Left PROGRAM PRODUCTION SPECIALIST Distal SFA occlusion crossed with glideadvantage wire and quickcross catheter. Injection through support catheter confirmed intraluminal position. Distal SFA dilated with 5.0 balloon Mid to distal SFA treated with 5.0 x 220 mm Lutonix MARSHA Proximal SFA treated with 5.0 x 150 mm Lutonix MARSHA Post procedure brisk 2 vessel flow to foot with good angiographic result. Small non flow limiting dissection in proximal SFA. Contrast used: 85 cc Access closure: Mynx, manual compression Summary: 1. Left lower extremity - severe diffuse proximal, mid SFA disease prior to 100% short distal SFA occlusion. 2 vessel runoff to foot with proximal CART DRIVER occlusion. 2. Right lower extremity - widely patent iliacs, PROGRAM PRODUCTION SPECIALIST. 3. Successful angioplasty of SFA diffuse proximal to mid disease and distal occlusion with 2 drug-eluting balloons (5.0 x 150, 5.0 x 220 mm). Post procedure brisk 2 vessel run-off to foot. Recommendations: Continue DAPT with ASA/Clopidogrel for 1 months Continue ASCVD risk factor modification Follow-up ultrasound in 1 month. I attest to the content of the Intraoperative Record and any orders documented therein. Any exceptions are noted below.
[2019-06-29] MEDS: INSULIN GLARGINE 100 UNIT/ML VIAL SC SCH ×2 (11:55→21:22)
[2019-06-29] MEDS: FUROSEMIDE 40 MG TAB PO SCH (11:56)
--- NOTE | 2019-06-29 13:13 | Hospitalist Progress Note ---
Date of Service June 29, 2019 Assessment & Plan (1) Cellulitis of left lower extremity: improved greatly over the course of stay s/p dalvance on 06/18 during ER visit. Then placed on cefepime/vanco/flagyl at admission. Culture from Left lateral foot wound grew MSSA. Ct tib-fib -- no nec fasc; no abscess; no osteomyelitis; etc. MRI left foot - no deep infection; no osteomyelitis; etc. focal u/s of upper left rosenberg - no developing abscess. venous doppler of LLE was neg for DVT/phlebitis. arterial doppler of LLE concerning for significant PAD of left leg. Dr Multani from [facility] recommends stopping cefepime/flagyl today -- change to doxy 100mg BID x 3 weeks will complete this on discharge Dr Cr performed arteriogram on Saturday balloon angioplasty performed to SFA, recommends DAPT for a month can go home tomorrow (2) Diabetic foot ulcer: left foot x 3 with largest ulcer with MSSA. consult placed to Dr Lucero. wound care nurse consultation appreciated. cont local wound care. Rx for cellulitis as above. concern for PAD - Dr Cr advising arteriogram of left leg - significant stenosis in SFA, balloon angioplasty performed Dr Multani advising 3 week course of oral doxycycline. Will need to follow with wound care center post-discharge for 3 ulcers. (3) Diabetes mellitus type 2, uncontrolled: Control remains acceptable. Cont basal insulin 65 units BID of lantus. Plan to hold am lantus tomorrow due to NPO status. Cont Novolog - correct factor of 8; carb ratio 1:2. BSGs ac/hs. DM diet. monitor for hypoglycemia, no episodes (4) Chronic kidney disease (CKD), stage III (moderate): Cr baseline about 1.3. Cr up very slightly at 1.59, this would not constitute ELROY will continue NSS at 75mL/hr will hold Toradol and evening dose of Losartan repeat BMP in the morning (5) Morbid obesity: BMI 50 (6) Diabetic neuropathy: Cont gabapentin as previous. Needs to be fitted for DM shoes - refer as outpatient. Wound care center may be able to do this for her. (7) Dyslipidemia: Cont statin (8) Hypertension: cont all outpatient meds including lasix 40mg alternating with 80mg per home regimen hold Losartan this evening due to rise in Cr (9) Sleep apnea: patient did not mention this as part of her PMH and did not mention using CPAP/BIPAP at home. will need to inquire with patient about this. (10) Constipation: KUB x-rays -- severe constipation/fecal load recent "diarrhea" was likely overflow stooling improved overnight cont senna with miralax (11) PAD (peripheral artery disease): LLE severe - as noted on arterial duplex cont statin cont asa arteriogram by Dr Cr tomorrow NPO after MN for procedure (12) DVT prophylaxis: lovenox 40mg daily overall progressing nicely with cellulitis plan to d/c tomorrow AM check labs in the AM Subjective patient seen after peripheral angiogram denies any pain in legs, no chest pain or pressure, no dyspnea she is moving her bowels on the regimen that she is on she is hungry, has to wait until 1:15 to sit up discussed with Dr. Cr, he is ok with patient going home tomorrow reviewed labs, Cr up to 1.59 will continue gentle fluids, hold nephrotoxins family updated at the bedside Review of Systems Review of Systems: All systems reviewed & are unremarkable except as noted in HPI & below Physical Exam Constitutional: WD/WN, vitals as above + obese Eyes: PERRL, conjunctivae normal, anicteric sclerae ENMT: external ear and nose normal, oropharynx normal Neck: trachea midline, no thyromegaly Respiratory: normal respiratory effort, lungs clear to auscultation Cardiovascular: RRR, no murmur, no edema Gastrointestinal (Abdomen): normal bowel sounds, soft, nontender, no hepatosplenomegaly Musculoskeletal: no cyanosis or clubbing, extremities motor strength 5/5 Skin: no rashes, warm and dry Neurologic: patellar DTR's 2+ bilat, sensation intact and PERRL, EOMI, accommodation nl, no face palsy, no dysarthria Psychiatric: A+Ox3, euthymic affect Lymphatic: no cervical or axillary lymphadenopathy Results & Data Vital Signs (Past 12 Hours) Vital Signs Temp Pulse Pulse Pulse Resp BP Pulse Ox 06/29/19 12:30 64 64 14 144/63 H 95 06/29/19 11:58 71 06/29/19 11:55 65 65 14 149/66 H 97 06/29/19 11:40 66 16 156/68 H 100 06/29/19 11:25 65 65 14 143/69 H 98 06/29/19 11:10 36.4 C L 66 66 12 154/70 H 97 06/29/19 10:55 64 63 18 140/70 97 06/29/19 10:50 64 63 18 152/68 H 96 06/29/19 10:45 64 63 18 154/66 H 97 06/29/19 10:40 64 64 18 167/80 H 97 06/29/19 07:11 36.6 C 70 16 132/81 98 Laboratory Results Laboratory Results - last 24 hr 06/28/19 06/28/19 06/29/19 17:04 21:19 05:03 Activ Coag Time Kaolin Creatinine 1.59 H Est Cr Clr Drug Dosing 48.1 Est GFR ( Amer) 40.8 Est GFR (Non-Af Amer) 35.2 POC Glucose 144 H 107 H 06/29/19 06/29/19 06/29/19 06:04 09:52 11:39 Activ Coag Time Kaolin 202 H Creatinine Est Cr Clr Drug Dosing Est GFR ( Amer) Est GFR (Non-Af Amer) POC Glucose 99 87 Medications Administered Current Inpatient Medications Acetaminophen (Tylenol) 1,000 mg PO Q6H PRN PRN Reason: Pain Stop: 07/24/19 19:45 Last Admin: 06/28/19 14:58 Dose: 1,000 mg Documented by: Al Hydrox/Mg Hydrox/Simethicone (Maalox) 30 ml PO Q6H PRN PRN Reason: Dyspepsia Stop: 07/24/19 19:45 Aspirin (Ecotrin Ectab) 81 mg PO [facility] Stop: 07/25/19 08:59 Last Admin: 06/28/19 08:31 Dose: 81 mg Documented by: Clopidogrel Bisulfate (Plavix) 75 mg PO [facility] Stop: 07/30/19 08:59 Doxycycline Hyclate (Vibramycin) 100 mg PO BID [facility]; Protocol Stop: 07/08/19 08:59 Last Admin: 06/28/19 20:47 Dose: 100 mg Documented by: Enoxaparin Sodium (Lovenox) 40 mg SQ [facility] Stop: 07/24/19 20:59 Last Admin: 06/28/19 20:47 Dose: 40 mg Documented by: Furosemide (Lasix) 40 mg PO DAILY [facility] Stop: 07/25/19 08:59 Last Admin: 06/29/19 11:56 Dose: Not Given Documented by: Gabapentin (Neurontin) 600 mg PO TID [facility] Stop: 07/24/19 20:59 Last Admin: 06/28/19 20:47 Dose: 600 mg Documented by: Sodium Chloride (Nss 1000ml) 1,000 mls @ 75 mls/hr IV .[id number] [facility] Stop: 06/29/19 17:39 Last Admin: 06/29/19 12:10 Dose: 75 mls/hr Documented by: Insulin Aspart (Novolog Flexpen) 0 units SC Q6 [facility] Stop: 07/29/19 05:59 Last Admin: 06/29/19 06:12 Dose: Not Given Documented by: Insulin Glargine (Lantus) 65 units SC BID [facility] Stop: 07/25/19 20:59 Last Admin: 06/29/19 11:55 Dose: Not Given Documented by: Lactobacillus Acidophilus (Floranex) 4 tab PO TIDM [facility] Stop: 07/25/19 07:59 Last Admin: 06/28/19 17:58 Dose: 4 tab Documented by: Losartan Potassium (Cozaar) 50 mg PO HS [facility] Stop: 07/24/19 20:59 Last Admin: 06/28/19 20:47 Dose: 50 mg Documented by: Magnesium Hydroxide (Milk Of Magnesia) 30 ml PO Q6H PRN PRN Reason: Constipation Stop: 07/24/19 19:45 Magnesium Oxide (Mag-Ox) 400 mg PO QDL [facility] Stop: 07/28/19 11:29 Last Admin: 06/28/19 12:44 Dose: 400 mg Documented by: Metformin HCl (Glucophage) 500 mg PO BIDM [facility] Stop: 07/25/19 07:59 Last Admin: 06/28/19 17:58 Dose: 500 mg Documented by: Metoprolol Tartrate (Lopressor) 25 mg PO BID [facility] Stop: 07/24/19 20:59 Last Admin: 06/28/19 20:46 Dose: 25 mg Documented by: Morphine Sulfate (Morphine Sulfate) 2 mg IV Q3H PRN PRN Reason: Pain Stop: 07/08/19 19:45 Ondansetron HCl (Zofran) 4 mg IV Q6H PRN PRN Reason: Nausea Stop: 07/24/19 19:45 Polyethylene Glycol (Miralax Powder Packet) 17 gm PO DAILY [facility] Stop: 07/26/19 12:29 Last Admin: 06/28/19 08:36 Dose: 17 gm Documented by: Rosuvastatin Calcium (Crestor) 40 mg PO QAM [facility] Stop: 07/25/19 08:59 Last Admin: 06/28/19 08:31 Dose: 40 mg Documented by: Sennosides (Senokot) 17.2 mg PO QAM [facility] Stop: 07/27/19 08:59 Last Admin: 06/28/19 08:33 Dose: 17.2 mg Documented by: Tramadol HCl (Ultram) 50 mg PO Q6H PRN PRN Reason: Pain Stop: 07/24/19 19:45 Last Admin: 06/29/19 07:35 Dose: 50 mg Documented by: Vitamin D (Vitamin D3) 5,000 units PO QAM [facility] Stop: 07/25/19 08:59 Last Admin: 06/28/19 08:35 Dose: 5,000 units Documented by: PG Care Time/CCT Total # of Minutes Spent Total Time Spent with Patient: Total time spent is greater than 50% in coordination of care (as documented) at patient's floor/unit and/or counseling patient: (1) Diabetic foot ulcer Diabetic foot ulcer location: heel Diabetes mellitus type: type 2 Laterality: left Non-pressure ulcer stage: with other severity Qualified Code(s): E11.621 - Type 2 diabetes mellitus with foot ulcer; L97.428 - Non- pressure chronic ulcer of left heel and midfoot with other specified severity (2) Diabetes mellitus type 2, uncontrolled Glycemic state: with hyperglycemia Qualified Code(s): E11.65 - Type 2 diabe jose mellitus with hyperglycemia (3) Diabetic neuropathy Diabetes mellitus type: type 2 Diabetes mellitus complication detail: diabetic polyneuropathy Qualified Code(s): E11.42 - Type 2 diabetes mellitus with diabetic polyneuropathy (4) Hypertension Hypertension type: essential hypertension Qualified Code(s): I10 - Essential (primary) hypertension (5) Sleep apnea Sleep apnea type: obstructive Qualified Code(s): G47.33 - Obstructive sleep apnea (adult) (pediatric) (6) Constipation Constipation type: other constipation type Qualified Code(s): K59.09 - Other constipation
[2019-06-29] MEDS: METOPROLOL TARTRATE 25 MG TAB PO SCH ×2 (13:25→21:21)
[2019-06-29] MEDS: LACTOBACILLUS ACIDOPHILUS (FLORANEX) TAB PO SCH ×3 (13:25→16:16)
[2019-06-29] MEDS: CHOLECALCIFEROL 1,000 UNITS TAB PO SCH (13:25)
[2019-06-29] MEDS: DOXYCYCLINE HYCLATE 100 MG CAP PO SCH ×2 (13:26→21:21)
[2019-06-29] MEDS: GABAPENTIN 600 MG TAB PO SCH ×3 (13:26→21:22)
[2019-06-29] MEDS: ROSUVASTATIN CALCIUM 20 MG TAB PO SCH (13:26)
[2019-06-29] MEDS: ASPIRIN 81 MG ECTAB PO SCH (13:26)
[2019-06-29] MEDS: SENNA 8.6 MG TAB PO SCH (13:27)
[2019-06-29] MEDS: METFORMIN HCL 500 MG TAB PO SCH ×2 (13:27→16:15)
[2019-06-29] MEDS: POLYETHYLENE (MIRALAX) 17 GM PACK PO SCH (13:28)
[2019-06-29] MEDS: MAGNESIUM OXIDE 400 MG TAB PO SCH (17:03)
--- NOTE | 2019-06-29 20:01 | Wound Consultation ---
Date of Consultation June 29, 2019 Assessment & Plan (1) Cellulitis of left foot: Wounds appear to be improving. Patient is status post angiogram with Dr. Cr this morning. No debridement was required. Wounds will be dressed with Aquacel Ag. We will see patient in the office at the end of the week. Thank you for limited participate in the care of this patient. Please hesitate to call with any questions. (2) Cellulitis of left lower extremity: Continue antibiotics per infectious disease. (3) PAD (peripheral artery disease): Status post angiogram with Dr. Cr this morning. History of Present Illness Reason for Consultation: Wounds of left lateral foot Attending Physician: Anthony Fox, DO History of Present Illness This is a 58-year-old female with a history of diabetes, GERD, hypertension, dyslipidemia, osteoarthritis, CKD stage III and Charcot joint of the foot who was admitted with cellulitis of her left lower leg. Arterial Doppler shows occlusion of the left peroneal artery and elevated velocities in the proximal to mid portions of the superficial femoral artery suggesting high-grade stenosis. Venous ultrasound shows no evidence of DVT. CT of the left leg and MRI of the foot showed no evidence of osteo-myelitis however are consistent with cellulitis. Patient is status post angiogram with Dr. Cr this morning. I have been asked to see the patient with regards to the wounds of her left latera l foot. Allergies Allergy/AdvReac Type Severity Reaction Status Date / Time amoxicillin Allergy Intermediate HIVES Verified 06/24/19 15:59 clavulanic acid Allergy Intermediate HIVES Verified 06/24/19 15:59 lisinopril AdvReac Unknown NAUSEA/VOMI Verified 06/24/19 15:59 TING Home Medications Home Medications Medication Instructions Recorded Confirmed Type cholecalciferol (vitamin D3) 5,000 units PO QAM 09/16/18 06/24/19 History [Vitamin D3] furosemide 40 mg PO 4XWK 09/16/18 06/24/19 History furosemide 80 mg PO 3XWK 09/16/18 06/24/19 History gabapentin 600 mg PO TID 09/16/18 06/24/19 History losartan 50 mg PO HS 09/16/18 06/24/19 History magnesium oxide 500 mg PO QAM 09/16/18 06/24/19 History metoprolol tartrate 25 mg PO BID 09/16/18 06/24/19 History insulin regular human [Novolin R 70 unit SUBCUT TID 01/15/19 06/24/19 History Regular U-100 Insuln] rosuvastatin 40 mg PO QAM 01/15/19 06/24/19 History acetaminophen [Tylenol Extra 1,000 mg PO Q6H PRN 06/18/19 06/24/19 History Strength] ciprofloxacin HCl 500 mg PO BID #14 tab 06/18/19 06/24/19 Rx aspirin 81 mg PO QAM 06/24/19 06/24/19 History docusate sodium [Stool Softener] 100 mg PO BID 06/24/19 06/24/19 History insulin degludec [Tresiba 110 unit SUBCUT HS 06/24/19 06/24/19 History FlexTouch U-200] metformin 500 mg PO BID 06/24/19 06/24/19 History tramadol 50 mg PO Q6H PRN 06/24/19 06/24/19 History clopidogrel 75 mg PO QAM 30 Days #30 tab 06/30/19 Rx doxycycline hyclate 100 mg PO BID 21 Days #42 cap 06/30/19 Rx Patient History Medical History Charcot's joint of foot due to diabetes (Chronic) Chronic kidney disease (CKD), stage III (moderate) (Chronic) Diabetes mellitus, type 2 (Chronic) Diabetic neuropathy (Chronic) Dyslipidemia (Chronic) GERD (gastroesophageal reflux disease) (Chronic) Hypertension (Chronic) Morbid obesity Osteoarthritis (Chronic) Sleep apnea (Chronic) Surgical History History of lumpectomy of right breast (Chronic) Hx of hand surgery RIGHT HAND Status post colonoscopy (Chronic) "2012- 2 hyperplastic + 1 adenomatous polyps; 2016- normal" Status post tonsillectomy (Chronic) Status post tubal ligation (Chronic) Family History Mother Rheumatoid arthritis Father Emphysema of lung Peripheral artery disease Social History Preferred Language: Turkmen Communication Ability: Effective Speech Lang Path Therapist Required: No Beliefs That Will Affect Care: None marital status: Current Living Situation: Spouse Current Living Situation Comment: reports her son is also in poor health at this time current occupational status: disabled other: previous worked at [employer] Feels Safe at Home: Yes Smoking Status: Former smoker Cigarettes Per Day: 1.5-2ppd ; Smoking End Date: 2014 ; Second Hand Exposure: No ; Hx Alcohol Use: No Hx Substance Use: No Review of Systems Review of Systems: All systems reviewed & are unremarkable except as noted in HPI & below Physical Exam Constitutional: WD/WN, vitals as above Eyes: PERRL, conjunctivae normal, anicteric sclerae ENMT: Ears: no hearing impairment Respiratory: normal respiratory effort, lungs clear to auscultation Cardiovascular: RRR, no murmur, no edema Gastrointestinal (Abdomen): normal bowel sounds, soft, nontender, no hepatosplenomegaly Skin: Wound 1 lateral distal left foot measuring 1.1 x 0.5 x 0.1 cm. Wound is covered with fibrin and slough. Periwound is intact without inflammation. Wound #2, left lateral proximal foot measuring 0.5 x 2 x 0.1 cm. Wound is covered with fibrin and slough. Periwound is intact without inflammation. Wound #3 posterior heel measuring 0.5 x 0.9 x 0.1 cm. Wound is covered with fibrinous slough. Periwound is intact without inflammation. Neurologic: awake; not confused Psychiatric: A+Ox3, euthymic affect Results & Data Vital Signs (Past 12 Hours) Vital Signs Temp Pulse Pulse Pulse Resp BP Pulse Ox 06/29/19 19:00 36.9 C 78 16 118/66 98 06/29/19 16:00 66 65 16 128/67 98 06/29/19 15:47 36.6 C 65 20 136/61 97 06/29/19 15:01 65 06/29/19 15:00 65 65 14 131/56 L 97 06/29/19 14:00 65 68 18 155/70 H 100 06/29/19 13:00 65 65 12 144/67 H 97 06/29/19 12:30 64 64 14 144/63 H 95 06/29/19 11:58 71 06/29/19 11:55 65 65 14 149/66 H 97 06/29/19 11:40 66 16 156/68 H 100 06/29/19 11:25 65 65 14 143/69 H 98 06/29/19 11:10 36.4 C L 66 66 12 154/70 H 97 06/29/19 10:55 64 63 18 140/70 97 06/29/19 10:50 64 63 18 152/68 H 96 06/29/19 10:45 64 63 18 154/66 H 97 06/29/19 10:40 64 64 18 167/80 H 97 PG Care Time/CCT Total # of Minutes Spent Total Time Spent with Patient: Total time spent is greater than 50% in coordination of care (as documented) at patient's floor/unit and/or counseling patient:
[2019-06-29] MEDS: ENOXAPARIN INJ 40 MG/0.4 ML SYR SQ SCH (21:21)
[2019-06-30] MEDS: INSULIN ASPART 100 UNITS/ML 3 ML PEN SC SCH ×2 (00:30→06:07)
[2019-06-30] MEDS: TRAMADOL HCL 50 MG TABLET PO PRN (04:52)
[2019-06-30 07:10] LABS: BUN Creatinine Ratio 22.4 (10-20); Calcium 9.9 mg/dl (8.5-10.1); Creatinine Clr Calc Pharmacy 58.5 ml/min; Est GFR (Non-African American) 44.9; Potassium 4.7 mmol/L (3.5-5.1)
[2019-06-30] MEDS: DOXYCYCLINE HYCLATE 100 MG CAP PO SCH (08:18)
[2019-06-30] MEDS: GABAPENTIN 600 MG TAB PO SCH (08:18)
[2019-06-30] MEDS: METOPROLOL TARTRATE 25 MG TAB PO SCH (08:19)
[2019-06-30] MEDS: CHOLECALCIFEROL 1,000 UNITS TAB PO SCH (08:19)
[2019-06-30] MEDS: ASPIRIN 81 MG ECTAB PO SCH (08:19)
[2019-06-30] MEDS: LACTOBACILLUS ACIDOPHILUS (FLORANEX) TAB PO SCH (08:19)
[2019-06-30] MEDS: SENNA 8.6 MG TAB PO SCH (08:19)
[2019-06-30] MEDS: POLYETHYLENE (MIRALAX) 17 GM PACK PO SCH (08:20)
[2019-06-30] MEDS: ROSUVASTATIN CALCIUM 20 MG TAB PO SCH (08:20)
[2019-06-30] MEDS: FUROSEMIDE 40 MG TAB PO SCH (08:20)
[2019-06-30] MEDS: INSULIN GLARGINE 100 UNIT/ML VIAL SC SCH (08:21)
[2019-06-30] MEDS: METFORMIN HCL 500 MG TAB PO SCH (08:23)
[2019-06-30] MEDS ORDERED: CLOPIDOGREL BISULFATE 75 MG TAB PO SCH (09:00)
--- NOTE | 2019-06-30 09:08 | Discharge Summary ---
Date of Service June 30, 2019 Admission HPI Per Admitting Provider 58yo female with long-standing insulin-dependent T2DM, morbid obesity, chronic LE edema, and diabetic peripheral neuropathy who presents with concerns of worsening left leg pain and erythema. Patient states she was first seen in our ER on 06/18/2019 and was diagnosed with LLE cellulitis. She was given IV dalvance and PO cipro and d/c home. Prior to discharge the leading edge of the cellulitis which was just inferior to the left knee was demarcated with a blue line. She reports that she had been having erythema of the left foot starting about 06/10/2019. She also has had a persistent left lateral foot ulcer for about 2 months. She has 2 additional ulcers - 1 over the achilles region, and a 2nd one over the lateral foot as well (for a total of 3 ulcerations). On 06/21/19 she returned to the ER for a recheck of the LLE cellulitis. Documentation suggests that the LLE erythema was modestly improved and she overall was feeling better. A decision was made to simply continue the cipro and return home. However, since the 06/21 visit, the pain in the high-left tib-fib region has worsened. There has been no change in the erythema extending from the previously placed demarcation line and the foot. For that reason she came back to the ER to be evaluated. She did have fever sometime last week but none since that time. She had shaking chills last night. Appetite has been poor. Fingerstick blood sugars have been quite high over the last 1-2 weeks with many readings in the 200-300 range. Principal Diagnosis Left lower extremity cellulitis associated with wound Discharge Exam Constitutional WD/WN, vitals as above + obese Eyes PERRL, conjunctivae normal, anicteric sclerae ENMT external ear and nose normal, oropharynx normal Neck trachea midline, no thyromegaly Respiratory normal respiratory effort, lungs clear to auscultation Cardiovascular RRR, no murmur, no edema Gastrointestinal (Abdomen) normal bowel sounds, soft, nontender, no hepatosplenomegaly Musculoskeletal no cyanosis or clubbing, extremities motor strength 5/5 Skin + wound (left foot ulcer, dressed, not weeping) and + erythema (minimal in left foot, much improved) Neurologic patellar DTR's 2+ bilat, sensation intact and PERRL, EOMI, accommodation nl, no face palsy, no dysarthria Psychiatric A+Ox3, euthymic affect Lymphatic no cervical or axillary lymphadenopathy Discharge Data Allergies Allergy/AdvReac Type Severity Reaction Status Date / Time amoxicillin Allergy Intermediate HIVES Verified 06/24/19 15:59 clavulanic acid Allergy Intermediate HIVES Verified 06/24/19 15:59 lisinopril AdvReac Unknown NAUSEA/VOMI Verified 06/24/19 15:59 TING Consultations 06/24/19 15:48 ED Decision to Admit Stat 06/26/19 12:22 Consult Wound Care Provider Routine 06/27/19 07:43 Consult Cardiology Routine 06/27/19 10:30 Consult Infectious Diseases Routine Procedures Performed Operation Date: 06/29/19 09:00 Actual Procedures p Angio Extremity Unilateral - Simeon Cr MD s SC Select Cath ALEP 3rd Order - Simeon Cr MD s Femoral Popliteal Balloon - Simeon Cr MD s Ultrasound Vascular Access - Simeon Cr MD Ordered Studies 06/24/19 17:53 CT tib/fib LT wo con Stat 06/24/19 19:46 MR foot LT wo/w con Routine 06/25/19 12:03 US venous doppler LE LT Routine 06/26/19 12:22 US arterial duplex LE LT Routine 06/26/19 17:03 US extremity non-vascular ltd Urgent 06/29/19 07:00 EP Lab Images for PACS ONCE 06/29/19 07:13 CL Cath Imgs for PACS use only Routine Hospital Course (1) Cellulitis of left lower extremity: improved greatly over the course of stay s/p miki on 06/18 during ER visit. Then placed on cefepime/vanco/flagyl at admission. Culture from Left lateral foot wound grew MSSA. Ct tib-fib -- no nec fasc; no abscess; no osteomyelitis; etc. MRI left foot - no deep infection; no osteomyelitis; etc. focal u/s of upper left rosenberg - no developing abscess. venous doppler of LLE was neg for DVT/phlebitis. arterial doppler of LLE concerning for significant PAD of left leg. Dr Multani from [facility] recommends stopping cefepime/flagyl -- changed to doxy 100mg BID x 3 weeks will complete this on discharge, script provided no fever, WBC normal Dr Cr performed arteriogram on Thursday 06/29 balloon angioplasty performed to SFA, recommends DAPT for a month can go home this morning close follow up with wound clinic on Monday 07/03 (2) Diabetic foot ulcer: left foot x 3 with largest ulcer with MSSA. consult placed to Dr Lucero. wound care nurse consultation appreciated. cont local wound care. Rx for cellulitis as above. will follow up closely in wound clinic Dr Cr performed arteriogram of left leg 06/29 - significant stenosis in SFA, balloon angioplasty performed Dr Multani advising 3 week course of oral doxycycline. Will need to follow with wound care center post-discharge for 3 ulcers, will be seen this week (3) Diabetes mellitus type 2, uncontrolled: Control remains acceptable. treated with Lantus 65 units BID Novolog - correct factor of 8; carb ratio 1:2. BSGs ac/hs. DM diet. monitor for hypoglycemia, no episodes will hold Metformin until 07/02 due to contrast dye resume home insulin regimen (4) Chronic kidney disease (CKD), stage III (moderate): Cr baseline about 1.3. Cr up very slightly at 1.59 on 06/29, this would not constitute ELROY will continue NSS at 75mL/hr Cr down to 1.3 on 06/30 which is baseline, resume Losartan (5) Morbid obesity: BMI 50 (6) Diabetic neuropathy: Cont gabapentin as previous. Needs to be fitted for DM shoes - refer as outpatient. Wound care center may be able to do this for her. (7) Dyslipidemia: Cont statin (8) Hypertension: cont all outpatient meds including lasix 40mg alternating with 80mg per home regimen continue Losartan (9) Sleep apnea: patient did not mention this as part of her PMH and did not mention using CPAP/BIPAP at home. will need to inquire with patient about this. (10) Constipation: KUB x-rays -- severe constipation/fecal load recent "diarrhea" was likely overflow stooling improved overnight cont senna with miralax (11) PAD (peripheral artery disease): LLE severe - as noted on arterial duplex cont statin cont asa arteriogram by Dr Cr 06/29 with balloon angioplasty to SFA stenosis use Plavix and Aspirin for a month, then reduce to single agent will need follow up arterial doppler one month from discharge (12) DVT prophylaxis: lovenox 40mg daily Total Time Total Time Spent Total Time Spent (In Minutes): 32 minutes Total Time Includes: Examination of the Patient, Discharge Planning, Medication Reconciliation and Communication With Other Providers (wound clinic, Dr Cr) Discharge Plan Discharge Items Patient Disposition: Home - Home Health Services Reason For Visit: LEFT FOOT CELLULITIS- FAILED OUT PATIENT TREATMENT Discharge Diagnosis: Cellulitis of left lower extremity Wound Peripheral artery disease Condition on Discharge: Good Goals: complete course of antibiotics follow up with wound care follow up with Dr. Cr for peripheral artery disease Activity: Resume your previous activity Non-emergency contact: Primary Care Provider Call non-emergency contact if: you have any medication questions, your symptoms worsen, your pain is not controlled and you have a fever Follow-up/Referrals: [facility] [Provider Group] (Please, follow up at [facility]. *A nurse from this office will contact you with appointment information. If you have any questions, call the wound clinic at [phone].) Kaila Freitas MD [Primary Care Provider] - 07/02/19 1:00 pm (Please, follow up with Dr. Kaila Freitas on July 02 at 1:00 pm. *If you have any questions, call the office at [phone].) Diet: Carb Consistent or DM2 and Heart Healthy Addtl Attending Provider Instructions: Medications: - Plavix: new antiplatelet medication for peripheral artery disease, take 75mg daily - Doxycycline: 100mg twice a day for cellulitis, take for 21 days Left leg cellulitis, wound responded well to IV antibiotics, Dr. Multani recommends 3 weeks of Doxycycline recommend continued wound care you will need to follow up in wound clinic on Saturday 07/[address] Lucero Peripheral artery disease, left leg arteriogram showed severe stenosis in left superficial femoral artery treated with balloon angioplasty Dr. Cr recommends both aspirin 81mg daily and Plavix 75mg daily for a month then you can take just one antiplatelet, would recommend Plavix Dr. Cr recommends a repeat arterial doppler of the left lower extremity in one month Diabetes: resume home insulin regimen please continue to hold Metformin today and tomorrow, you can resume on 07/02 FOLLOW UP - wound clinic tomorrow, 07/01, Dr. Lucero - Dr. Freitas on 07/02 Dr. Freitas can order the repeat arterial doppler one month from now Pending Studies at Discharge: No Stand-Alone Forms: My [facility], Smoking Cessation Medications and DC Order Prescriptions: New doxycycline hyclate 100 mg Capsule 100 mg PO BID 21 Days Qty: 42 RF: 0 clopidogrel 75 mg Tablet 75 mg PO QAM 30 Days Qty: 30 RF: 0 Continued Novolin R Regular U-100 Insuln 100 unit/mL Solution 70 unit SUBCUT TID RF: 0 rosuvastatin 40 mg Tablet 40 mg PO QAM RF: 0 acetaminophen [Tylenol Extra Strength] 500 mg Tablet 1,000 mg PO Q6H PRN (Reason: Pain) RF: 0 losartan 50 mg tablet 50 mg PO HS RF: 0 furosemide 40 mg tablet 40 mg PO 4XWK RF: 0 furosemide 40 mg tablet 80 mg PO 3XWK RF: 0 gabapentin 600 mg tablet 600 mg PO TID RF: 0 magnesium oxide 500 mg Tablet 500 mg PO QAM RF: 0 metoprolol tartrate 25 mg tablet 25 mg PO BID RF: 0 cholecalciferol (vitamin D3) [Vitamin D3] 5,000 unit Tablet 5,000 units PO QAM RF: 0 metformin 500 mg tablet 500 mg PO BID RF: 0 docusate sodium [Stool Softener] 100 mg Capsule 100 mg PO BID RF: 0 Tresiba FlexTouch U-200 200 unit/mL (3 mL) insulin pen 110 unit SUBCUT HS RF: 0 aspirin 81 mg Tablet,Delayed Release (Dr/Ec) 81 mg PO QAM RF: 0 tramadol 50 mg tablet 50 mg PO Q6H PRN (Reason: Pain) RF: 0 Discontinued ciprofloxacin HCl 500 mg tablet 500 mg PO BID Qty: 14 RF: 0 Discharge Orders: Discharge Order (Routine); Ordered 06/30/19 Ordered By: Anthony Fox Admission Data Admit Date/Time: 06/24/19 16:29 Attending Provider: Anthony Fox Admit Provider: Kaden Kevin Primary Care Provider: Kaila Freitas Other Providers: Kaden Causey ; Fabián Lucero ; Simeon Cr ; Delores Multani
--- NOTE | 2019-06-30 12:34 | Vascular Medicine ProgressNote ---
Date of Service June 30, 2019 Assessment & Plan (1) PAD (peripheral artery disease): 2. Diabetic Left lower extremity ulcerations with associated cellulitis 3. Type 2 diabetes complicated by peripheral neuropathy 4. Mild acute on chronic kidney disease 5. Chronic lower extremity edema/venous insufficiency/lymphedema 6. Hypertension 7. Dyslipidemia 8. Anemia Post SFA angioplasty with MARSHA x 2. DP pulse present today. No access site complications Post procedure labs stable. OK with discharge today. Home on aspirin and clopidogrel. Follow-up with me in 3 weeks with repeat arterial duplex. Subjective Feeling well today. No fevers. Left leg without pain. No significant pain at access site. Telemetry reviewed -- no events. Review of Systems Review of Systems: All systems reviewed & are unremarkable except as noted in HPI & below Physical Exam Physical Exam: General: Comfortable, no acute distress Eyes: Sclerae anicteric, extraocular movements intact HENT: Oropharynx clear mucous membranes moist Lungs: Clear to auscultation bilaterally, no rhonchi or wheezes Cardiac: Regular rate and rhythm, no murmurs Abdomen: Soft, nontender Neuro: Nonfocal Psych: Alert orient x3, normal affect and mood Extremities/Vascular: -- 2+ femoral bilaterally, no hematoma at RT access site -- Palpable DP pulse on LT -- Lower extremity ulcerations dressed. Results & Data Vital Signs (Past 12 Hours) Vital Signs Temp Pulse Pulse Pulse Resp BP Pulse Ox 06/30/19 09:13 97.3 F L 74 18 147/66 H 94 06/30/19 07:30 97.3 F L 74 18 147/66 H 94 06/30/19 04:38 97.5 F L 72 19 133/64 96 06/30/19 00:52 74 PG Care Time/CCT Total # of Minutes Spent Total Time Spent with Patient: Total time spent is greater than 50% in coordination of care (as documented) at patient's floor/unit and/or counseling patient:
== END 2019-06-30 09:40 | disposition home or self-care (01) | DRG 253 ==
LOC: ED 14:54 → 3W 16:29 → SUATTDRO 16:29 → 3W 18:15 → 2E 06-29 10:32
PROC: CLB.AEU (2019-06-29 09:00)

== ENCOUNTER 2020-10-21 14:19 | Inpatient (IN) ==
[2020-10-21] MEDS ORDERED: VANCOMYCIN CONSULT ACTIVE PRN (15:16)
[2020-10-21] MEDS ORDERED: VANCOMYCIN HCL 1,000 MG/270 ML BAG IV STA (15:16)
[2020-10-21] MEDS ORDERED: VANCOMYCIN HCL 2,500 MG in SODIUM CHLORIDE 0.9% 500 ML IV STA (15:18)
--- NOTE | 2020-10-21 15:38 | XRay Report ---
XR foot RT min 3V routine CLINICAL HISTORY: Right lateral foot wound. COMPARISON: 10/07/2020 DISCUSSION: There is flattening plantar arch. There are deformities involving the bases of the second and third metatarsals. There is extensive tarsal bone fragmentation. There is calcaneal spurring. Th e findings are indicative of a neuropathic joint. There is no gas within the soft tissues. Probable l ateral soft tissue ulcer. IMPRESSION: 1. 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 2. There is no gas within the soft tissues. 2. There is a suspected lateral soft tissue ulcer. ACT 112: Negative or not required by law. Electronically signed by: Sav Hdz M.D. 10/21/2020 3:36 PM
[2020-10-21] MEDS ORDERED: diphenhydrAMINE 50 MG/ML VIAL ONE (15:51)
[2020-10-21] MEDS ORDERED: diphenhydrAMINE 50 MG/ML VIAL IV STA (15:52)
[2020-10-21 15:55] LABS: Basophils # (auto) 0.06 K/uL (0-0.2); Basophils % (auto) 0.5 %; Eosinophils # (auto) 0.28 K/uL (0-0.5); Eosinophils % (auto) 2.5 %; Hematocrit (blood only) 28.1 % (37-47); Hemoglobin 9.3 g/dL (12.0-16.0); Immature Granulocytes # (auto) 0.02 K/uL (0.00-0.02); Immature Granulocytes % (auto) 0.2 %; Lymphocytes % (auto) 30.6 %; Mean Corpuscular Hemoglobin 28.4 pg (25-34); Mean Corpuscular Hgb Conc 33.1 g/dL (32-36); Mean Corpuscular Volume 85.9 fL (80-100); Mean Platelet Volume 9.7 fL (7.4-10.4); Monocytes # (auto) 0.78 K/uL (0.11-0.59); Neutrophils # (auto) 6.56 K/uL (1.4-6.5); Neutrophils % (auto) 59.2 %; Platelet Count 293 K/uL (130-400); RDW Coefficient of Variation 15.6 % (11.5-14.5); RDW Standard Deviation 49.6 fL (36.4-46.3); Red Blood Count 3.27 M/uL (4.2-5.4)
[2020-10-21 16:09] LABS: Appearance Urine Turbid (Clear); Bacteria Urine Automated Negative (Negative); Bilirubin Urine Negative (Negative); Blood Urine 2+ (Negative); Color Urine Yellow; Epithelial Cell Urine Auto >30 /lpf (0-5); Glucose Urine UA Trace (Negative); Ketones Urine Negative (Negative); Leukocyte Esterase Urine Negative (Negative); Nitrite Urine Negative (Negative); Protein Urine 2+ (Negative); RBC Urine Automated 0-4 /hpf (0-4); Specific Gravity Urine 1.018 (1.000-1.030); Urobilinogen Urine Negative (Negative); WBC Urine Automated >30 /hpf (0-5); pH Urine 5.5 (4.5-7.5)
[2020-10-21] MEDS ORDERED: ONDANSETRON INJ 2 MG/ML 2 ML VIAL IV STA (16:09)
[2020-10-21] MEDS ORDERED: ACETAMINOPHEN 1,000 MG/100 ML VIAL IV STA (16:09)
[2020-10-21] MEDS ORDERED: HYDROmorphone INJ 1 MG/ML SYRINGE IV PRN (16:09)
[2020-10-21 16:14] LABS: BUN Creatinine Ratio 13.2 (10-20); Calcium 9.6 mg/dl (8.5-10.1); Creatinine Clr Calc Pharmacy 19.5 ml/min; Est GFR (African American) 15.7 ml/min; Est GFR (Non-African American) 13.5 ml/min; Potassium 4.1 mmol/L (3.5-5.1)
[2020-10-21 16:17] LABS: Albumin Globulin Ratio 0.7 (0.9-2); Bilirubin,Total 0.3 mg/dl (0.2-1); Globulin 4.4 gm/dl (2.5-4.0); Total Protein 7.4 gm/dl (6.4-8.2)
[2020-10-21] MEDS ORDERED: SODIUM CHLORIDE 0.9% 1000ML 1,000 ML IV ONE (16:20)
[2020-10-21 16:55] LABS: Amorphous Sediment Urine Present (None Prsent)
[2020-10-21] MEDS ORDERED: PHARMACY GLYCEMIC MGMT CONSULT STA (17:32)
--- NOTE | 2020-10-21 17:36 | CT Scan Report ---
CT OF THE ABDOMEN AND PELVIS WITHOUT CONTRAST CLINICAL HISTORY: Acute renal failure. COMPARISON STUDY: Abdominal series June 26, 2019. TECHNIQUE: Axial images of the abdomen and pelvis were obtained without IV contrast. Images were revi ewed in the axial, sagittal, and coronal planes. Automated exposure control was utilized for the julia dy. A dose lowering technique was utilized adhering to the principles of ALARA. FINDINGS: Mild groundglass opacities are noted within the lung bases. No pneumatosis, free air or por gloria venous gas is present. No renal, ureteral or bladder calculi are present. There is mild bilateral perinephric infiltration. There is no hydronephrosis. Evaluation of the remainder of the abdomen and pelvis is suboptimal on this unenhanced exam. There is no significant biliary ductal dilatation stat us post cholecystectomy. Mild hepatosplenomegaly is noted. There is no evidence for a bowel obstructi on. There is no lymphadenopathy. There is no ascites. No acute fracture or suspicious lesion is ident ified within the visualized skeletal structures. Moderate vascular calcification is noted. IMPRESSION: 1. No urinary calculi or hydronephrosis. 2. Mild hepatosplenomegaly. 3. No bowel obstruction. ACT 112: Negative or not required by law. Electronically signed by: Azael Morton M.D. 10/21/2020 5:35 PM
[2020-10-21] MEDS ORDERED: PHARMACY GLYCEMIC MGMT CONSULT PRN (17:45)
--- NOTE | 2020-10-21 18:05 | History & Physical Report ---
Date of Service October 21, 2020 Assessment & Plan (1) Diabetic foot ulcer associated with type 2 diabetes mellitus, with fat layer exposed: Referred from wound care after failing outpatient management and oral antibiotics - Start empiric IV daptomycin and cefepime - spoke with pharmacy for renal dosing - Wound culture, blood culture pending - Consult wound care nurse for additional recommendations (2) Acute kidney injury superimposed on CKD: Suspect due to recent course of Bactrim which is now complete - Follow creatinine for improvement off Bactrim - daily labs ordered - Consult nephrology - Will give one liter of NSS and re-evaluate (3) Insulin-requiring or dependent type II diabetes mellitus: - HOLD Metformin while admitted/due to ELROY - Consult pharmacy for glycemic management - spoke with pharmacist who will place orders - Diabetic diet - Check A1c in AM (4) Dyslipidemia: - Continue outpatient statin therapy (5) PAD (peripheral artery disease): - Check RLE arterial duplex - if needs any vascular procedure, pt has seen Dr. Cr previously (6) Hypertension: - Continue outpatient metoprolol but holding losartan and Lasix due to ELROY. Will need to follow closely. (7) Chronic diastolic (congestive) heart failure: Holding Lasix and losartan until renal function improves. Will need to monitor fluid status closely (8) Sleep apnea: Did not tolerate CPAP so not currently using anything at night. Code status: Full Code DVT prophylaxis: on Xarelto outpatient Pt seen and reviewed with attending physician, Dr. Sewell. Plan of care discussed and as outlined above. Eri Judd PA-C History of Present Illness Chief Complaint: worsening right foot ulcer Primary Care Provider: Kaila Freitas MD This is a 60 y/o female with a PMH of insulin-dependent DM, PAD, CKD3, ALLY, diabetic polyneuropathy, Charcot foot, chronic diastolic CHF, HTN, and dyslipidemia who was referred to the ED from wound care clinic today due to worsening infection of a right diabetic foot ulcer. Pt reports ongoing issues with bilateral LE diabetic ulcers over the past 1-2 years. She has undergone multiple vascular procedures by Dr. Cr during this same time for known PAD. The ulcer on her right foot had healed until 3-4 weeks ago when it reopened, likely to a new pair of diabetic shoes that she was "breaking in" per her recollection. She has been following with wound care the past few weeks. Two weeks ago she was seen in the ED due to concern for infection and was placed on Bactrim, which she finished two days ago. She does not feel like this improved her symptoms at all, but she has noted worsening of the pain, redness, and swe lling since she finished it. She has been taking Tylenol and Tramadol for pain at home with only partial relief. Pain radiates from her right foot to her right lateral ankle and is severe enough that it keeps her awake/wakes her at night. She reports not sleeping well for past several days. She does have known neuropathy in both feet and hands from the diabetes (more severe in feet, worse in right LE) but current pain is different than the neuropathy. She has developed chills (past 24-48 hrs) but no documented fevers. She notes malaise and fatigue. She sporadically checks her sugars at home, but she has noted elevated sugars over 400 in the past week, which she reports is unusual for her recently (typically below 250). Of note, she also reports her urine started to get dark in color yesterday but has been dark, almost brown, in color today. It is foamy at times. She denies dysuria, increased frequency, or hematuria. She reports typically drinking 6-8 bottles of water per day (other than today). She denies taking any NSAIDs or medications other than those prescribed or listed in this HPI. Allergies Allergy/AdvReac Type Severity Reaction Status Date / Time amoxicillin Allergy Intermediate HIVES & N/V Verified 10/21/20 16:08 clavulanic acid Allergy Intermediate HIVES & N/V Verified 10/21/20 16:08 lisinopril AdvReac Intermediate NAUSEA/VOMI Verified 10/21/20 16:08 TING Home Medications Medication Instructions Recorded Confirmed Type cholecalciferol (vitamin D3) 5,000 units PO QAM 09/16/18 10/21/20 History [Vitamin D3] furosemide 40 mg PO 4XWK 09/16/18 10/21/20 History furosemide 80 mg PO 3XWK 09/16/18 10/21/20 History losartan 50 mg PO QAM 09/16/18 10/21/20 History metoprolol tartrate 25 mg PO BID 09/16/18 10/21/20 History Novolin R Regular U-100 Insuln See Rx Instructions .ROUTE .COMPLEX 01/15/19 0 10/21/20 History rosuvastatin 40 mg PO HS 01/15/19 10/21/20 History aspirin 81 mg PO QAM 06/24/19 10/21/20 History metformin 500 mg PO BID 06/24/19 10/21/20 History polyethylene glycol 3350 [Miralax] 17 g PO DAILY PRN 02/05/20 10/21/20 History Novolin N Flexpen See Rx Instructions .ROUTE .COMPLEX 04/06/20 10/21/20 History magnesium oxide 500 mg PO QAM 04/06/20 10/21/20 History tramadol 50 mg tablet 50 mg PO DAILY PRN 05/03/20 10/21/20 History rivaroxaban 2.5 mg tablet 2.5 mg PO BID #180 tab 06/15/20 10/21/20 Rx acetaminophen [Tylenol Arthritis] 650 mg PO Q8H PRN 10/07/20 10/21/20 History collagenase clostridium histo. 1 applic TOPICAL DAILY PRN 10/21/20 10/21/20 History [Santyl] Past Med/Surg History Medical History (Updated 10/22/20 @ 14:16 by Gab Rousseau MD) Chronic back pain Chronic diastolic (congestive) heart failure Chronic kidney disease (CKD), stage III (moderate) monitoring. Follows with [facility]. Chronic venous insufficiency Clostridium difficile colitis history (~11/2016) -- treated no problems since. Diabetes mellitus type 2, uncontrolled Diabetic peripheral neuropathy associated with type 2 diabetes mellitus Dyslipidemia Hypertension On anticoagulant therapy Osteoarthritis PAD (peripheral artery disease) Sleep apnea no cpap Venous stasis ulcer current right foot wound, following with wound clinic Surgical History H/O vascular surgery bilateral lower legs, left leg vascular stent (August 2019/November 2019/December 2019) Dr. Cr [facility] History of cholecystectomy History of esophagogastroduodenoscopy (EGD) History of left cataract surgery History of lumpectomy of right breast benign History of tooth extraction S/P epidural steroid injection Status post colonoscopy "2011- 2 hyperplastic + 1 adenomatous polyps; 2015- normal" Status post tonsillectomy Status post tubal ligation Family History Mother Rheumatoid arthritis Father Emphysema of lung Peripheral artery disease Other No family history of adverse response to anesthesia Denies family history of CAD (coronary atherosclerotic disease) Social History Smoking Status: Former smoker Years Smoked: 45; Cigarettes Per Day: 1.5-2ppd; Second Hand Exposure: No; Hx Alcohol Use: No Hx Substance Use: No Preferred Language: Polish Communication Ability: Effective Bundler Seasonal Greenery Required: No Beliefs That Will Affect Care: None marital status: Current Living Situation: Spouse and Family Current Living Situation Comment: reports her son is also in poor health at this time current occupational status: disabled other: previous worked at [employer] Feels Safe at Home: Yes Safety Concerns: Feels Safe At This Time Assistive Devices: Cane Review of Systems Review of Systems: All systems reviewed & are unremarkable except as noted in HPI & below Constitutional: + chills, + fatigue, + malaise and + anorexia; no fever Eyes: no diplopia and no worsening vision Ear, Nose, Mouth, Throat: no nasal congestion, no nasal discharge, no post nasal drip and no sore throat Respiratory: no cough, no chest congestion, no dyspnea, no dyspnea on exertion and no hemoptysis Cardiovascular: + palpitations (occasional ) and + edema; no chest pain, no dyspnea on exertion and no syncope Gastrointestinal: + constipation (mild - uses prn Miralax ); no abdominal pain, no nausea, no diarrhea/loose stools and no blood in stools Genitourinary: as per Subjective / HPI; no dysuria and no urinary frequency Musculoskeletal: as per Subjective / HPI Integumentary: as per Subjective / HPI Neurologic: + paresthesia and + dizziness (with Vanco given in ED - improved on rate slowed ); no seizure-like activity, no syncope and no headache(s) Psychiatric: no depression and no anxiety Physical Exam Constitutional: WD/WN, vitals as above + obese; no acute distress Eyes: + anicteric sclerae; no conjunctival abnormality Neck: trachea midline Respiratory: no respiratory distress and no labored breathing Auscultation: lungs clear to auscultation bilaterally; no rales, no rhonchi and no wheezes Cardiovascular: Rate/Rhythm: regular rate and regular rhythm Heart Sounds: no gallop, no murmur and no cardiac rub Vessels: radial pulses present; no carotid bruit Extremities: + pedal edema Gastrointestinal (Abdomen): Inspection/Auscultation: normal bowel sounds; abdomen not distended Percussion/Palpation: abdomen soft; abdomen nontender Musculoskeletal: Head/Neck/Chest: normocephalic, head atraumatic and neck supple Skin: Right lateral foot wound measures 2.5 x 5.1 x 0.2 cm in size. Wound base is covered in slough, fibrin, and eschar. Periwound is erythematous and macerated. No drainage at present. Erythema extends to lateral ankle. Area is exquisitely tender to touch. Two smaller wounds noted on right foot as well. Neurologic: moves all extremities Diminished sensation to light touch bilateral LE - RLE to knee, LLE to mid-rosenberg/calf Psychiatric: A+Ox3, euthymic affect Results & Data Results & Data ([facility]) Vital Signs (Past 12 Hours) Vital Signs Temp Pulse Pulse Resp BP BP Pulse Ox 10/21/20 16:31 67 16 146/70 H 100 10/21/20 16:30 67 14 99 10/21/20 16:15 68 16 117/50 L 94 10/21/20 16:04 22 95 10/21/20 16:01 69 21 112/57 L 95 10/21/20 15:12 37.0 C 64 21 121/50 L 100 10/21/20 14:27 36.1 C L 66 20 100/51 L 100 Laboratory Results Laboratory Results - last 24 hr 10/21/20 10/21/20 10/21/20 Unknown Unknown Unknown WBC 11.10 H RBC 3.27 L Hgb 9.3 L Hct 28.1 L MCV 85.9 MCH 28.4 MCHC 33.1 RDW Std Deviation 49.6 H RDW Coeff of Adelina 15.6 H Plt Count 293 MPV 9.7 Immature Gran % (Auto) 0.2 Neut % (Auto) 59.2 Lymph % (Auto) 30.6 [place] % (Auto) 7.0 Eos % (Auto) 2.5 Baso % (Auto) 0.5 Neut # (Auto) 6.56 H Lymph # (Auto) 3.40 [place] # (Auto) 0.78 H Eos # (Auto) 0.28 Baso # (Auto) 0.06 Immature Gran # (Auto) 0.02 Sodium 137 Potassium 4.1 Chloride 104 Carbon Dioxide 24 Anion Gap 9.0 BUN 46 H Creatinine 3.46 H Est Cr Clr Drug Dosing 19.5 Est GFR ( Amer) 15.7 Est GFR (Non-Af Amer) 13.5 BUN/Creatinine Ratio 13.2 Glucose 188 H Calcium 9.6 Total Bilirubin 0.3 AST 45 H ALT 46 Alkaline Phosphatase 131 H Total Protein 7.4 Albumin 3.0 L Globulin 4.4 H Albumin/Globulin Ratio 0.7 L Lipase 149 Urine Color Yellow Urine Appearance Turbid A Urine pH 5.5 Ur Specific [place] 1.018 Urine Protein 2+ H Urine Glucose (UA) Trace H Urine Ketones Negative Urine Blood 2+ H Urine Nitrite Negative Urine Bilirubin Negative Urine Urobilinogen Negative Ur Leukocyte Esterase Negative Urine WBC (Auto) >30 H Urine RBC (Auto) 0-4 U Hyaline Cast (Auto) 10-30 H U Epithel Cells (Auto) >30 H Urine Bacteria (Auto) Negative Ur Renal Epithelial Cell Not Reportable Urine Crystals Not Reportable Amorphous Sediment Present A Granular Casts 10-20 H Urine Yeast Not Reportable Diagnostic Findings Right Foot X-ray 10/21/20 - IMPRESSION: 1. 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 2. There is no gas within the soft tissues. 3. There is a suspected lateral soft tissue ulcer. CT Abd/Pel 10/21/20 - IMPRESSION: 1. No urinary calculi or hydronephrosis. 2. Mild hepatosplenomegaly. 3. No bowel obstruction. Medications Administered Hydromorphone HCl (Hydromorphone Inj 1 Mg/Ml Syringe) 1 mg IV Q15M PRN PRN Reason: Pain Stop: 11/04/20 16:08 Last Admin: 10/21/20 16:26 Dose: 1 mg Documented by: [id number] Discontinued Medications Diphenhydramine HCl (Diphenhydramine 50 Mg/Ml Vial) Confirm Administered Dose 50 mg .ROUTE .STK-MED ONE Stop: 10/21/20 15:52 Last Admin: 10/21/20 17:01 Dose: Not Given Documented by: [id number] Diphenhydramine HCl (Diphenhydramine 50 Mg/Ml Vial) 50 mg IV NOW STA Stop: 10/21/20 15:53 Last Admin: 10/21/20 15:54 Dose: 50 mg Documented by: [id number] Vancomycin HCl 2,500 mg/ (Sodium Chloride) 550 mls @ 200 mls/hr IV NOW STA Stop: 10/21/20 18:02 Last Admin: 10/21/20 15:40 Dose: 200 mls/hr Documented by: [id number] Sodium Chloride (Nss 1000ml) 1,000 mls @ 999 mls/hr IV .Q1H1M ONE Stop: 10/21/20 17:20 Last Admin: 10/21/20 16:28 Dose: 999 mls/hr Documented by: [id number] Ondansetron HCl (Ondansetron Inj 2 Mg/Ml 2 Ml Vial) 4 mg IV NOW STA Stop: 10/21/20 16:10 Last Admin: 10/21/20 16:26 Dose: 4 mg Documented by: [id number] Code Status & VTE Plan VTE Prophylaxis Plan VTE Prophylaxis will be ordered: Yes Supervising Physician Co-Signing Physician Notes 60-year-old female with chronic diabetic foot infection, sent from wound clinic as patient failed outpatient treatment Wound culture obtained at the ER. We will continue patient with IV daptomycin and cefepime, does not appear to be septic. Acute renal failure with CKD stage III: Possible secondary to Bactrim, patient reports she has been drinking a lot to hydrate herself, continue to follow BMP in a.m., avoid NSAIDs contrast studies We will not order IV fluids as patient does not appear to be dehydrated Nephrology consulted Tata Sewell MD (1) Sleep apnea Sleep apnea type: obstructive Qualified Code(s): G47.33 - Obstructive sleep apnea (adult) (pediatric) (2) Diabetic foot ulcer associated with type 2 diabetes mellitus, with fat layer exposed Diabetic foot ulcer location: midfoot Laterality: right Qualified Code(s): E11.621 - Type 2 diabetes mellitus with foot ulcer; L97.412 - Non-pressure chronic ulcer of right heel and midfoot with fat layer exposed (3) Hypertension Hypertension type: essential hypertension Qualified Code(s): I10 - Essential (primary) hypertension
--- NOTE | 2020-10-21 18:09 | Ultrasound Report ---
RIGHT LOWER EXTREMITY VENOUS DOPPLER CLINICAL HISTORY: Pt c/o foot pain COMPARISON STUDY: Bilateral lower extremity venous Doppler ultrasound May 02, 2020. TECHNIQUE: Sonography of the deep venous system of the right lower extremity was performed. Compress ion and augmentation were evaluated. FINDINGS: The right common femoral, superficial femoral and popliteal veins were compressible. Augme ntation was normal. Flow was shown within the deep calf vessels. IMPRESSION: No evidence of deep venous thrombus within the right lower extremity. ACT 112: Negative or not required by law. Electronically signed by: Azael Morton M.D. 10/21/2020 6:08 PM
--- NOTE | 2020-10-21 18:16 | Ultrasound Report ---
RIGHT LOWER EXTREMITY ARTERIAL DOPPLER ULTRASOUND CLINICAL HISTORY: hx PAD, right foot pain, foot ulcer COMPARISON STUDY: No previous studies for comparison. TECHNIQUE: Grayscale, color and duplex Doppler sonography of the arterial system of the right lower e xtremity was performed. FINDINGS: Extensive atherosclerotic plaque within the right lower extremity is noted. There is monoph asic flow within the right common femoral artery which raises the possibility of inflow disease. Note is made of a probable stent within the right common femoral and superficial femoral arteries. At mos t, there is minimal flow within the stent. Flow distal to the stent is markedly. There is dampened, m onophasic flow within the right popliteal, anterior tibial and posterior tibial arteries the right pe roneal artery and dorsalis pedis are likely occluded. IMPRESSION: 1. Extensive atherosclerotic plaque within the right lower extremity. Occlusion versus trace flow wit hin the right femoral artery stent. 2. Significantly diminished flow distal to the stent with monophasic, dampened flow within the right popliteal, anterior tibial and posterior tibial arteries. Remainder of vessels occluded. 3. Monophasic flow within the right common femoral artery which raises the possibility of inflow dise ase. ACT 112: Negative or not required by law. Electronically signed by: Azael Morton M.D. 10/21/2020 6:15 PM
[2020-10-21] MEDS ORDERED: GLUCOSE 10 TAB/TUBE PO PRN (18:30)
[2020-10-21] MEDS ORDERED: GLUCAGON FOR INJ 1 MG VIAL IM PRN (18:30)
[2020-10-21] MEDS ORDERED: DEXTROSE 50% 50 ML SYRINGE IV PRN (18:30)
[2020-10-21] MEDS ORDERED: GLUCOSE 40% GEL 15 GM TUBE PO PRN (18:30)
--- NOTE | 2020-10-21 19:50 | Pharmacy Report ---
Pharmacy Glycemic Short Note 2 - Date of Service October 21, 2020 - Glycemic Short BSG Results (Last 24 hours): 10/21/20 10/21/20 19:35 Unknown Glucose 188 H POC Glucose 244 H OUTPATIENT ANTIDIABETIC REGIMEN: * Metformin 500mg PO BID * NPH 65-80 units BID - gave 70 units this morning * Regular insulin 70 units TID with meals ASSESSMENT: * 60 year old female referred to the ED from wound care clinic today due to worsening infection of a right diabetic foot ulcer * Patient on 340-370 units of insulin /day at home * Will continue NPH for basal as used at home and use a tight CF/CR and titrate to goal * Overnight checks tonight as we determine patient's insulin needs while inpatient * ADA & AACE recommend a goal blood sugar range 140-180 mg/dl for the majority of critically ill & non-critically ill patients. However, more stringent targets may be selected in individual cases. Will utilize more stringent goal of 110-140mg/dl based on patient age & comorbidities. Additionally, tighter glycemic control is warranted to facilitate wound/infection healing. PLAN FOR INPATIENT GLYCEMIC CONTROL: * Hold outpatient oral diabetes medications * Basal insulin * NPH 70 units SQ BID with meals * Bolus insulin * NovoLog per scale ACHS or Q6hrs while NPO & at 0000 and 0400 tonight * Goal Range: Low 110 mg/dL - High 140 mg/dL * Correction Factor: 5 mg/dL/unit * Nutritional / Prandial insulin per carb ratio of 1 unit per 2 grams CHO consumed
[2020-10-21] MEDS: INSULIN ASPART 100 UNITS/ML VIAL SC SCH ×3 (20:21→23:54)
[2020-10-21] MEDS: INSULIN HUMAN NPH SC SCH (21:59)
[2020-10-21] MEDS ORDERED: SODIUM CHLORIDE 0.9% 1000ML 1,000 ML IV SCH (22:25)
[2020-10-21] MEDS: HYDROmorphone INJ 0.5 MG/0.5 ML SYR IV PRN (22:52)
[2020-10-21] MEDS ORDERED: DAPTOmycin 300 MG in SYRINGE 0 ML IV SCH (23:00)
[2020-10-21] MEDS ORDERED: CEFEPIME 2,000 MG in SYRINGE 0 ML IV ONE (23:00)
[2020-10-21] MEDS: METOPROLOL TARTRATE 25 MG TAB PO SCH (23:09)
[2020-10-21] MEDS: RIVAROXABAN 2.5 MG TAB PO SCH (23:10)
[2020-10-21] MEDS: ROSUVASTATIN CALCIUM 20 MG TAB PO SCH (23:10)
[2020-10-22] MEDS: INSULIN ASPART 100 UNITS/ML VIAL SC SCH ×5 (03:52→20:51)
[2020-10-22 06:00] LABS: Basophils # (auto) 0.03 K/uL (0-0.2); Basophils % (auto) 0.3 %; Eosinophils # (auto) 0.09 K/uL (0-0.5); Eosinophils % (auto) 0.9 %; Hematocrit (blood only) 26.9 % (37-47); Hemoglobin 9.1 g/dL (12.0-16.0); Immature Granulocytes # (auto) 0.02 K/uL (0.00-0.02); Immature Granulocytes % (auto) 0.2 %; Lymphocytes # (auto) 1.23 K/uL (1.2-3.4); Lymphocytes % (auto) 12.5 %; Mean Corpuscular Hemoglobin 28.3 pg (25-34); Mean Corpuscular Hgb Conc 33.8 g/dL (32-36); Mean Corpuscular Volume 83.5 fL (80-100); Mean Platelet Volume 9.2 fL (7.4-10.4); Monocytes # (auto) 0.88 K/uL (0.11-0.59); Monocytes % (auto) 8.9 %; Neutrophils # (auto) 7.61 K/uL (1.4-6.5); Neutrophils % (auto) 77.2 %; Platelet Count 248 K/uL (130-400); RDW Coefficient of Variation 15.5 % (11.5-14.5); RDW Standard Deviation 47.6 fL (36.4-46.3); Red Blood Count 3.22 M/uL (4.2-5.4); White Blood Count 9.86 K/uL (4.8-10.8)
[2020-10-22 06:26] LABS: BUN Creatinine Ratio 13.5 (10-20); Creatinine Clr Calc Pharmacy 21.1 ml/min; Est GFR (African American) 17.3 ml/min; Est GFR (Non-African American) 14.9 ml/min; Potassium 3.7 mmol/L (3.5-5.1)
[2020-10-22 07:13] LABS: Estimated Average Glucose 329 mg/dl; Hemoglobin A1C 13.1 % (4.5-5.6)
[2020-10-22] MEDS: HYDROmorphone INJ 0.5 MG/0.5 ML SYR IV PRN ×4 (07:44→22:14)
[2020-10-22] MEDS ORDERED: INSULIN HUMAN NPH SC SCH ×2 (08:45→17:00)
[2020-10-22] MEDS: METOPROLOL TARTRATE 25 MG TAB PO SCH ×2 (08:54→20:26)
[2020-10-22] MEDS: CHOLECALCIFEROL 1,000 UNITS 25 MCG TAB PO SCH (08:54)
[2020-10-22] MEDS: ASPIRIN 81 MG ECTAB PO SCH (08:54)
[2020-10-22] MEDS: RIVAROXABAN 2.5 MG TAB PO SCH ×2 (08:55→20:25)
[2020-10-22] MEDS: INSULIN HUMAN NPH SC SCH ×2 (09:14→18:19)
--- NOTE | 2020-10-22 14:16 | Emergency Department Note ---
Impression & Plan Acute kidney injury superimposed on CKD, Diabetic ulcer of right foot with fat layer exposed, Insulin-requiring or dependent type II diabetes mellitus ED Provider Note NAME: WENDI DAMON AGE: 60 SEX: F : 1960 ARRIVES VIA: Walk-In INFORMANT: Patient, ED PROVIDER(S): Gab Rousseau MD CHIEF COMPLAINT: foot wound HPI: This is a 60-year-old female sent in by wound clinic over concerns that she has a nonhealing wound to the right foot. The patient has been on 2 antibiotics Keflex and Bactrim for the past 10 days and finished them 2 days ago. Despite that the wound has not healed. She reports a history of diabetes and does not have any feeling in the foot. She has not taken anything for the pain prior to arrival. She denies any fevers or chills. The patient is a diabetic. 1` ROS: See above HPI for pertinent positives & negatives. A total of 10 systems reviewed and were otherwise negative. PAST MEDICAL HISTORY: See Below PAST SURGICAL HISTORY: See Below FAMILY HISTORY: See Below SOCIAL HISTORY: See Below HOME MEDICATIONS: See Below ALLERGIES: See Below VITALS: See Below PHYSICAL EXAMINATION: VITAL SIGNS - Vital signs and nursing notes were reviewed. GENERAL - 60-year-old female appearing stated age who is in no acute distress. Communicates well with provider and answers questions appropriately. SKIN - Without rashes. HEAD - NC/AT. EYES - PERRL with EOMI bilaterally. Sclera anicteric. Palpebral conjunctiva pink and moist with no injection noted. EARS - No deformities of external structures noted on gross examination bilaterally. NOSE - Midline and without cyanosis. No epistaxis or purulent drainage noted. Septum midline without deviation or septal hematoma noted. MOUTH/OROPHARYNX - Without perioral cyanosis. Buccal mucosa pink and moist and without leukoplakia. Tongue midline with equal elevation of palate bilaterally. No tonsillar hypertrophy, erythema, or exudates noted. NECK - Neck with FROM. Supple to palpation. No nuchal rigidity. LUNGS - Chest wall symmetric without accessory muscle use, intercostals retractions, or central cyanosis. Normal vesicular breath sounds CTA B/L. No wheezes, rales, or rhonchi appreciated. CARDIAC - RRR with S1/S2. No murmur, rubs, or gallops appreciated. ABDOMEN - Abdominal contour without pulsations or visible masses. BS normoactive all four quadrants. No tenderness, palpable masses, hepatosplenomegaly, or ascites noted. EXTREMITIES - No clubbing or peripheral cyanosis. No pretibial edema present. +3/5 radial, posterior tibial, and dorsalis pedis pulses palpated throughout. +5/5 strength noted in UE/LE bilaterally. NEUROLOGIC - Cranial nerves II through XII grossly intact. Sensory intact to light touch throughout. Patellar reflexes +2/4. PSYCH - A&Ox3 and cooperates fully with examiner. Pt is very pleasant and interacts well with examiner. MEDICAL DECISION MAKING: Patient was seen and evaluated as above in room B6. Review was performed of nursing notes and vital signs. I did review pertinent previous visits and patient history. After obtaining a thorough history and physical examination the above work up was performed. This is a 60-year-old female who presents to emergency department sent in by wound clinic over concerns of the patient has a nonhealing wound. The patient was started on IV vancomycin based on previous wound cultures. She did have a slight reaction to the vancomycin and the rate of the vancomycin was slowed I am concerned however that the patient is in acute renal failure. She was given a normal saline bolus here and sent for CAT scan of her kidneys. I did discuss the case with the hospitalist service who did agree to admit the patient. Patient is in agreement with the treatment plan. Creatinine is significantly bumped she does not have an elevation in her white blood cell count. An order was placed for continuous cardiac monitoring. The monitor shows a rate of 68 with Normal SInus rhythm. The patient was evaluated during a period of high volume and high acuity during the global COVID-19 pandemic, and that diagnosis was suspected/considered upon their initial presentation. Their evaluation, treatment and testing was consistent with current guidelines for patients who present with complaints or symptoms that may be related to COVID-19. Patient was seen while provider was wearing PPE. Triage Nursing notes reviewed. Prior medical records reviewed Vital Signs: reviewed and remarkable for no significant abnormalities Differential diagnosis: Foreign body, fracture, dislocation, joint compromise, infection, soft tissue injury, tendon injury, vascular compromise, compartment syndrome, as well as ot her pathologies. ER treatment provided: See below Laboratory studies: As stated above and show below. Imaging studies: See below Consultation(s): Internal Medicine Past Med/Surg History Medical History (Updated 10/22/20 @ 14:16 by Gab Rousseau MD) Chronic back pain Chronic diastolic (congestive) heart failure Chronic kidney disease (CKD), stage III (moderate) monitoring. Follows with [facility]. Chronic venous insufficiency Clostridium difficile colitis history (~11/2016) -- treated no problems since. Diabetes mellitus type 2, uncontrolled Diabetic peripheral neuropathy associated with type 2 diabetes mellitus Dyslipidemia Hypertension On anticoagulant therapy Osteoarthritis PAD (peripheral artery disease) Sleep apnea no cpap Venous stasis ulcer current right foot wound, following with wound clinic Surgical History H/O vascular surgery bilateral lower legs, left leg vascular stent (August 2019/November 2019/December 2019) Dr. Cr [facility] History of cholecystectomy History of esophagogastroduodenoscopy (EGD) History of left cataract surgery History of lumpectomy of right breast benign History of tooth extraction S/P epidural steroid injection Status post colonoscopy "2011- 2 hyperplastic + 1 adenomatous polyps; 2015- normal" Status post tonsillectomy Status post tubal ligation Family History Mother Rheumatoid arthritis Father Emphysema of lung Peripheral artery disease Other No family history of adverse response to anesthesia Denies family history of CAD (coronary atherosclerotic disease) Social History Smoking Status: Former smoker Years Smoked: 45; Cigarettes Per Day: 1.5-2ppd; Second Hand Exposure: No; Hx Alcohol Use: No Hx Substance Use: No Preferred Language: Scottish Communication Ability: Effective Shearer Operator Required: No Beliefs That Will Affect Care: None marital status: Current Living Situation: Spouse and Family Current Living Situation Comment: reports her son is also in poor health at this time current occupational status: disabled other: previous worked at [employer] Feels Safe at Home: Yes Safety Concerns: Feels Safe At This Time Assistive Devices: Walker Allergies Allergies Allergy/AdvReac Type Severity Reaction Status Date / Time amoxicillin Allergy Intermediate HIVES & N/V Verified 10/21/20 16:08 clavulanic acid Allergy Intermediate HIVES & N/V Verified 10/21/20 16:08 lisinopril AdvReac Intermediate NAUSEA/VOMI Verified 10/21/20 16:08 TING Home Meds Home Medications Medication Instructions Recorded Confirmed cholecalciferol (vitamin D3) 5,000 units PO QAM 09/16/18 10/21/20 [Vitamin D3] furosemide 40 mg PO 4XWK 09/16/18 10/21/20 furosemide 80 mg PO 3XWK 09/16/18 10/21/20 losartan 50 mg PO QAM 09/16/18 10/21/20 metoprolol tartrate 25 mg PO BID 09/16/18 10/21/20 Novolin R Regular U-100 Insuln See Rx Instructions .ROUTE .COMPLEX 01/15/19 10/21/20 rosuvastatin 40 mg PO HS 01/15/19 10/21/20 aspirin 81 mg PO QAM 06/24/19 10/21/20 metformin 500 mg PO BID 06/24/19 10/21/20 polyethylene glycol 3350 [Miralax] 17 g PO DAILY PRN 02/05/20 10/21/20 Novolin N Flexpen See Rx Instructions .ROUTE .COMPLEX 04/06/20 10/21/20 magnesium oxide 500 mg PO QAM 04/06/20 10/21/20 tramadol 50 mg tablet 50 mg PO DAILY PRN 05/03/20 10/21/20 acetaminophen [Tylenol Arthritis] 650 mg PO Q8H PRN 10/07/20 10/21/20 collagenase clostridium histo. 1 applic TOPICAL DAILY PRN 10/21/20 10/21/20 [Santyl] Previous Rx's Medication Instructions Recorded rivaroxaban 2.5 mg tablet 2.5 mg PO BID #180 tab 06/15/20 Results & Data (ED) Vital Signs Vital Signs - 24 hr 10/21/20 14:27 10/21/20 15:12 10/21/20 16:01 Temperature 36.1 C L 37.0 C Temperature Source Temporal Artery Scan Oral Pulse Rate 66 69 Pulse Rate [Right Finger] 64 Pulse Rate from SpO2 Sensor 69 Pulse Rhythm Regular Pulse Rhythm [Right Finger] Regular Pulse Strength [Right Finger] Normal Respiratory Rate Respiratory Effort / Characteristics Non-Labored Spontaneous Non-Labored Respiratory Depth Normal Normal Respiratory Pattern Regular Blood Pressure 100/51 L 112/57 L Blood Pressure [Left Arm] 121/50 L Blood Pressure Mean 67 75 Blood Pressure Mean [Left Arm] 73 Blood Pressure Position [Left Arm] Sitting Pulse Oximetry 100 100 95 Oxygen Delivery Method Room Air Room Air Sepsis Recent Fever Within 48 Hours No Sepsis New/Unexplained Change in Mental Status N/A Sepsis Action Taken by Nursing No Action Required 10/21/20 16:04 10/21/20 16:15 10/21/20 16:30 Temperature Temperature Source Pulse Rate 68 67 Pulse Rate [Right Finger] Pulse Rate from SpO2 Sensor 70 69 68 Pulse Rhythm Pulse Rhythm [Right Finger] Pulse Strength [Right Finger] Respiratory Rate 22 16 14 Respiratory Effort / Characteristics Respiratory Depth Respiratory Pattern Blood Pressure 117/50 L Blood Pressure [Left Arm] Blood Pressure Mean 72 Blood Pressure Mean [Left Arm] Blood Pressure Position [Left Arm] Pulse Oximetry 95 94 99 Oxygen Delivery Method Sepsis Recent Fever Within 48 Hours Sepsis New/Unexplained Change in Mental Status Sepsis Action Taken by Nursing 10/21/20 16:31 10/21/20 16:32 10/21/20 16:45 Temperature Temperature Source Pulse Rate 67 67 66 Pulse Rate [Right Finger] Pulse Rate from SpO2 Sensor 67 67 65 Pulse Rhythm Pulse Rhythm [Right Finger] Pulse Strength [Right Finger] Respiratory Rate 16 21 15 Respiratory Effort / Characteristics Respiratory Depth Respiratory Pattern Blood Pressure 146/70 H 129/60 Blood Pressure [Left Arm] Blood Pressure Mean 95 83 Blood Pressure Mean [Left Arm] Blood Pressure Position [Left Arm] Pulse Oximetry 100 100 100 Oxygen Delivery Method Sepsis Recent Fever Within 48 Hours Sepsis New/Unexplained Change in Mental Status Sepsis Action Taken by Nursing 10/21/20 17:00 10/21/20 17:01 Temperature Temperature Source Pulse Rate 73 Pulse Rate [Right Finger] Pulse Rate from SpO2 Sensor Pulse Rhythm Pulse Rhythm [Right Finger] Pulse Strength [Right Finger] Respiratory Rate 21 Respiratory Effort / Characteristics Respiratory Depth Respiratory Pattern Blood Pressure 133/53 L Blood Pressure [Left Arm] Blood Pressure Mean 79 Blood Pressure Mean [Left Arm] Blood Pressure Position [Left Arm] Pulse Oximetry Oxygen Delivery Method Sepsis Recent Fever Within 48 Hours Sepsis New/Unexplained Change in Mental Status Sepsis Action Taken by Alf Medications Current Medication List: was personally reviewed by me Laboratory Data Attestation: I reviewed the patient's lab results. Result diagrams: 10/22/20 05:37 10/22/20 05:37 Administered Medications Aspirin (Aspirin 81 Mg Ectab) [facility] [place]: 11/21/20 08:59 Last Admin: 10/22/20 08:54 Dose: 81 mg Documented by: [id number] Hydromorphone HCl (Hydromorphone Inj 0.5 Mg/0.5 Ml Syr) 0.5 mg IV Q4H PRN PRN Reason: Severe Pain Stop: 11/04/20 17:37 Last Admin: 10/22/20 13:06 Dose: 0.5 mg Documented by: [id number] Admin: 10/22/20 07:44 Dose: 0.5 mg Documented by: [id number] Admin: 10/21/20 22:52 Dose: 0.5 mg Documented by: [id number] Daptomycin 300 mg/ Syringe 6 mls @ 3 mls/min IV Q48H [facility]; Protocol Stop: 10/28/20 22:59 Last Admin: 10/21/20 23:12 Dose: 3 mls/min Documented by: [id number] Insulin Aspart (Insulin Aspart 100 Units/Ml Vial) 0 units SC ACHS [facility]; Protocol Stop: 11/20/20 18:29 Last Admin: 10/22/20 12:26 Dose: 40 units Documented by: [id number] Cosigned by: [id number] Admin: 10/22/20 09:00 Dose: 22 units Documented by: [id number] Cosigned by: [id number] Admin: 10/21/20 23:39 Dose: Not Given Documented by: [id number] Cosigned by: [id number] Admin: 10/21/20 20:21 Dose: 43 units Documented by: [id number] Cosigned by: [id number] Metoprolol Tartrate (Metoprolol Tartrate 25 Mg Tab) 25 mg PO BID [facility] Stop: 11/20/20 22:24 Last Admin: 10/22/20 08:54 Dose: 25 mg Documented by: [id number] Admin: 10/21/20 23:09 Dose: 25 mg Documented by: [id number] Rivaroxaban (Rivaroxaban 2.5 Mg Tab) 2.5 mg PO BID [facility] Stop: 11/20/20 22:24 Last Admin: 10/22/20 08:55 Dose: 2.5 mg Documented by: [id number] Admin: 10/21/20 23:10 Dose: 2.5 mg Documented by: [id number] Rosuvastatin Calcium (Rosuvastatin Calcium 20 Mg Tab) 40 mg PO HS [facility] Stop: 11/20/20 22:24 Last Admin: 10/21/20 23:10 Dose: 40 mg Documented by: [id number] Vitamin D (Cholecalciferol 1,000 Units 25 Mcg Tab) 5,000 units PO QAM PER Stop: 11/21/20 08:59 Last Admin: 10/22/20 08:54 Dose: 5,000 units Documented by: [id number] Discontinued Medications Diphenhydramine HCl (Diphenhydramine 50 Mg/Ml Vial) Confirm Administered Dose 50 mg .ROUTE .STK-MED ONE Stop: 10/21/20 15:52 Last Admin: 10/21/20 17:01 Dose: Not Given Documented by: [id number] Diphenhydramine HCl (Diphenhydramine 50 Mg/Ml Vial) 50 mg IV NOW STA Stop: 10/21/20 15:53 Last Admin: 10/21/20 15:54 Dose: 50 mg Documented by: [id number] Hydromorphone HCl (Hydromorphone Inj 1 Mg/Ml Syringe) 1 mg IV Q15M PRN PRN Reason: Pain Stop: 11/04/20 16:08 Last Admin: 10/21/20 16:26 Dose: 1 mg Documented by: [id number] Vancomycin HCl 2,500 mg/ (Sodium Chloride) 550 mls @ 200 mls/hr IV NOW STA Stop: 10/21/20 18:02 Last Infusion: 10/21/20 22:28 Dose: 0 mls/hr Documented by: [id number] Admin: 10/21/20 15:40 Dose: 200 mls/hr Documented by: [id number] Acetaminophen (Ofirmev) 1,000 mg in 100 mls @ 400 mls/hr IV NOW STA Stop: 10/21/20 16:23 Last Infusion: 10/21/20 21:06 Dose: 0 mls/hr Documented by: [id number] Admin: 10/21/20 18:22 Dose: 400 mls/hr Documented by: [id number] Sodium Chloride (Nss 1000ml) 1,000 mls @ 999 mls/hr IV .Q1H1M ONE Stop: 10/21/20 17:20 Last Infusion: 10/21/20 18:28 Dose: 0 mls/hr Documented by: [id number] Admin: 10/21/20 16:28 Dose: 999 mls/hr Documented by: [id number] Cefepime HCl 2,000 mg/ Syringe 20 mls @ 5 mls/min IV ONE ONE Stop: 10/21/20 23:03 Last Admin: 10/21/20 23:12 Dose: 5 mls/min Documented by: [id number] Sodium Chloride (Nss 1000ml) 1,000 mls @ 100 mls/hr IV .Q10H PER Stop: 10/22/20 08:24 Last Infusion: 10/22/20 08:49 Dose: 0 mls/hr Documented by: [id number] Admin: 10/21/20 22:49 Dose: 100 mls/hr Documented by: [id number] Insulin Aspart (Insulin Aspart 100 Units/Ml Vial) 0 units SC 0000,0400 PER; Protocol Stop: 11/21/20 00:00 Last Admin: 10/22/20 03:52 Dose: Not Given Documented by: [id number] Cosigned by: [id number] Admin: 10/21/20 23:54 Dose: 1 units Documented by: [id number] Cosigned by: [id number] Insulin Human NPH (Insulin Human Nph) 70 units SC BIDM [facility]; Protocol Stop: 11/20/20 18:29 Last Admin: 10/22/20 09:14 Dose: Not Given Documented by: [id number] Admin: 10/21/20 21:59 Dose: 70 units Documented by: [id number] Cosigned by: [id number] Insulin Human NPH (Insulin Human Nph) 65 units SC BIDM [facility]; Protocol Stop: 11/21/20 08:44 Last Admin: 10/22/20 09:04 Dose: 65 units Documented by: [id number] Cosigned by: [id number] Miscellaneous Information (Pharmacy Glycemic Mgmt Consult) 1 ea N/A NOW STA Stop: 10/21/20 17:33 Last Admin: 10/21/20 23:40 Dose: Not Given Documented by: [id number] Ondansetron HCl (Ondansetron Inj 2 Mg/Ml 2 Ml Vial) 4 mg IV NOW STA Stop: 10/21/20 16:10 Last Admin: 10/21/20 16:26 Dose: 4 mg Documented by: [id number] Discharge Plan Visit Data Chief Complaint: Infection Stated Complaint: LUMP ON BOTTOM OF RIGHT FOOT - INFECTED ED Provider: Gab Rousseau Discharge Problem: Acute kidney injury superimposed on CKD, Diabetic ulcer of right foot with fat layer exposed, Insulin-requiring or dependent type II diabetes mellitus Patient Disposition: Admitted As Inpatient Discharge Instructions Interventions: ED Discharge Assessment Last Done: 10/21/20 21:50 Discharge Problem: Diabetic ulcer of right foot with fat layer exposed Qualifiers: Diabetic foot ulcer location: unspecified part of foot Diabetes mellitus type: other specified (including ELFEGO) Qualified Code(s): E13.621 - Other specified diabetes mellitus with foot ulcer
--- NOTE | 2020-10-22 14:57 | Consultation Report ---
DATE OF CONSULTATION: 10/22/2020 NEPHROLOGY CONSULTATION NOTE REASON FOR CONSULT: Acute renal failure. HISTORY OF PRESENT ILLNESS: The patient is a 60-year-old female with history of type 2 diabetes for more than 20 years, who was sent over by wound clinic yesterday because of worsening infection of the right diabetic foot ulcer. The patient was on outpatient Bactrim up until a few days ago for about 10 days. She did not have any major symptoms yesterday when she presented to the hospital, but she was found to have acute renal failure. Admission labs showed a creatinine of 3.46 up from her baseline of 1.33 just 2 weeks ago. This morning is slightly better with a creatinine of 3.20. The patient was also taking Lasix, losartan, and metformin as an outpatient; all 3 are currently on hold. She denies taking any NSAIDs. Denies any nausea, vomiting, chest pain, shortness of breath, orthopnea, PND, or lower extremity edema. Appetite has been fairly normal. No urinary complaints, although her urine was suggestive of infection and urine culture did grow bacteria. She had abdominal and pelvis CT scan yesterday, which did not show hydronephrosis; however, there was mention of mild bilateral perinephric infiltration. She is hemodynamically stable, although I would say her blood pressure is somewhat on the low side. She is eating and drinking normally at this time and is not getting any IV fluids currently. ALLERGIES: Allergy list was reviewed and is as per H and P. MEDICATIONS: Home medication list was also reviewed in detail. Of special interest to nephrology, she was on metformin, losartan, Lasix as well as magnesium tablet. PAST MEDICAL AND SURGICAL HISTORY: Chronic back pain, chronic diastolic congestive heart failure, chronic kidney disease stage III with most recent creatinine around 1.3, follows with [facility], chronic venous insufficiency, C. diff colitis, type 2 diabetes -- uncontrolled for more than 20 years, diabetic neuropathy, dyslipidemia, hypertension, chronic anticoagulation, osteoarthritis, peripheral artery disease, obstructive sleep apnea, but no CPAP, left lower leg vascular stent, cholecystectomy, cataracts, lumpectomy, tooth extraction, epidural injections, tonsillectomy, tubal ligation. FAMILY HISTORY: Negative for renal disease or dialysis. SOCIAL HISTORY: She is a smoker and has smoked for 45 years. No alcohol. She is and lives with her spouse. She is disabled at this time, previously worked at [employer]. REVIEW OF SYSTEMS: As detailed in the HPI. Unless stated otherwise, 12 systems reviewed and negative. PHYSICAL EXAMINATION: GENERAL: Middle-aged white female who is not in overt respiratory distress. She is awake, alert, oriented x3. Normal accurate speech. VITAL SIGNS: Blood pressure 109/65, pulse rate 68, 99% on room air, temperature 36.7. HEENT: Mucous membrane is moist. NECK: Supple. No jugular venous distention. CHEST: Bilaterally clear to auscultation. CARDIOVASCULAR: S1, S2 regular. ABDOMEN: Soft, nontender. EXTREMITIES: Show no edema. She does have diabetic ulcer in the right lower extremity. SKIN: No rashes. LABORATORY TESTS: Reviewed. Creatinine was 1.33 two weeks ago. On admission yesterday, creatinine was 3.46. It was 3.20 this morning. WBC count 11,000. CT abdomen and pelvis was reviewed, which did not show any hydronephrosis, but there is mention of mild bilateral perinephric infiltration. Urine culture is positive. Urine sediment is very active with blood, protein as well as granular casts and bacteria. ASSESSMENT AND PLAN: A 60-year-old female who has longstanding uncontrolled diabetes as well as multiple complications associated with that including chronic kidney disease stage III with a baseline creatinine of 1.3, now admitted with acute renal failure and worsening diabetic ulcer in her right lower extremity. I was consulted for acute renal failure. She also has urinary tract infection with possible pyelonephritis. Acute renal failure: She does have baseline chronic kidney disease, but there is a definite acute component of the renal failure which is multifactorial related with recent Bactrim use, which caused the creatinine to be higher as well as some degree of toxic acute tubular necrosis in the setting of infection, urinary tract infection, diabetic ulcer. Fortunately, she is making urine and appears hemodynamically stable and creatinine is trending down. No further workup needed as the etiology is clear at this time. RECOMMENDATIONS: 1. Continue to hold Lasix, losartan, and metformin. 2. She is eating and drinking pretty good, so we do not need to give her IV fluid. 3. Avoid NSAIDs, nephrotoxic agents, nephrotoxic antibiotics and contrast agent. 4. Do treat her UTI. It is quite possible she also has some mild degree of pyelonephritis given the CT scan finding. 5. Daily labs. 6. We will follow.
--- NOTE | 2020-10-22 16:51 | Hospitalist Progress Note ---
Date of Service October 22, 2020 Assessment & Plan (1) Diabetic foot ulcer associated with type 2 diabetes mellitus, with fat layer exposed: History of recurrent diabetic foot wound Had small callus on the right lateral side foot few weeks ago, which progressed to become a open lesion Has been seeing at the wound clinic for wound dressing and management Wound culture a week back was MRSA Patient was treated with oral Bactrim, Follow-up visit at wound clinic shows progression of right foot wound, with evidence of cellulitis on right lower leg Referred from wound care after failing outpatient management and oral antibiotics - Wound culture sent, patient was empirically started with daptomycin/cefepime Wound care consulted Patient is asked to keep limb elevated while sitting on chair to prevent ankle edema (2) Acute kidney injury superimposed on CKD: Suspect due to recent treatment of Bactrim Patient denies of any nausea vomiting or diarrhea, has been drinking fluids at home as much as possible to keep herself hydrated -Appreciate input from nephrology, Given patient stable volume status, no indication for IV fluids, monitor daily BMP, Avoid NSAIDs and contrast study Future prescription for Bactrim should be avoided for this patient, Bactrim added to her medication allergies/adverse reaction list (3) Insulin-requiring or dependent type II diabetes mellitus: - HOLD Metformin while admitted/due to ELROY Patient has been on fairly large dose of insulin at home Hemoglobin A1c 13 Pharmacy consult for glycemic management, appreciate input - (4) Dyslipidemia: -Statin should be kept on hold while patient getting daptomycin (5) PAD (peripheral artery disease): -Had multiple procedures in the past, by interventional cardiology Dr. Martin Cr, Continue aspirin, and Xarelto (6) Hypertension: - Continue outpatient metoprolol Hold losartan and Lasix due to acute renal failure (7) Chronic diastolic (congestive) heart failure: Holding Lasix and losartan until renal function improves. Volume status has been stable (8) Sleep apnea: Did not tolerate CPAP Nightly does not use any CPAP or BiPAP at night Will check for nocturnal pulse oximetry, patient may benefit with nasal cannula oxygen support at night Code status: Full Code DVT prophylaxis: on Xarelto outpatient Disposition: Expected to be discharged home when medically stable Admission and Anticipated Discharge Date Admission Date: October 21, 2020 Subjective Follow-up visit for nonhealing diabetic foot ulcer with fat layer exposed. Patient offers not much complain, had an uneventful day, pain on right foot wound area moderately controlled with current pain medication No complaint of chest pain shortness of breath no dyspnea on exertion, has been afebrile with stable vitals since admission Review of Systems Constitutional: as per Subjective / HPI Physical Exam Physical Exam: Physical exam: General: Sitting up on edge of bed, obese, very pleasant, no sign of discomfort HEENT: Anicteric sclera Heart: Regular S1-S2, no carotid bruit, no JVD, trace bilateral lower extremity edema Lungs: Clear to auscultate, no wheeze or rales Abdomen: Soft nontender, Extremity: Right foot diabetic wound on on lateral side, open wound with whitish base/serous drainage noted, with surrounding erythema up to lower part of leg, increased warmth and tenderness noted Neuro: No focal neurological deficit normal speech, Psych: Alert awake oriented x3, normal affect Results & Data Results & Data ([facility]) Vital Signs (Past 12 Hours) Vital Signs Temp Pulse Resp BP Pulse Ox 10/22/20 15:26 37.3 C 78 18 119/68 96 10/22/20 08:56 68 109/65 99 10/22/20 07:16 36.7 C 68 16 115/67 99 (1) Sleep apnea Sleep apnea type: obstructive Qualified Code(s): G47.33 - Obstructive sleep apnea (adult) (pediatric) (2) Diabetic foot ulcer associated with type 2 diabetes mellitus, with fat layer exposed Diabetic foot ulcer location: midfoot Laterality: right Qualified Code(s): E11.621 - Type 2 diabetes mellitus with foot ulcer; L97.412 - Non-pressure chronic ulcer of right heel and midfoot with fat layer exposed (3) Hypertension Hypertension type: essential hypertension Qualified Code(s): I10 - Essential (primary) hypertension
[2020-10-22] MEDS ORDERED: POLYETHYLENE (MIRALAX) 17 GM PACK PO STA (19:59)
[2020-10-22] MEDS: ROSUVASTATIN CALCIUM 20 MG TAB PO SCH (20:25)
[2020-10-22] MEDS ORDERED: CEFEPIME 1,000 MG in SYRINGE 0 ML IV SCH (23:00)
[2020-10-23] MEDS: CARBOHYDRATES FOR HYPOGLYCEMIA PO PRN (03:20)
[2020-10-23] MEDS: HYDROmorphone INJ 0.5 MG/0.5 ML SYR IV PRN ×3 (03:30→18:00)
[2020-10-23 05:48] LABS: Basophils # (auto) 0.05 K/uL (0-0.2); Basophils % (auto) 0.7 %; Eosinophils # (auto) 0.14 K/uL (0-0.5); Eosinophils % (auto) 1.8 %; Hematocrit (blood only) 25.7 % (37-47); Hemoglobin 8.6 g/dL (12.0-16.0); Immature Granulocytes # (auto) 0.02 K/uL (0.00-0.02); Immature Granulocytes % (auto) 0.3 %; Lymphocytes # (auto) 1.96 K/uL (1.2-3.4); Lymphocytes % (auto) 25.8 %; Mean Corpuscular Hemoglobin 28.3 pg (25-34); Mean Corpuscular Hgb Conc 33.5 g/dL (32-36); Mean Corpuscular Volume 84.5 fL (80-100); Mean Platelet Volume 9.3 fL (7.4-10.4); Monocytes # (auto) 0.58 K/uL (0.11-0.59); Monocytes % (auto) 7.6 %; Neutrophils # (auto) 4.86 K/uL (1.4-6.5); Neutrophils % (auto) 63.8 %; Platelet Count 218 K/uL (130-400); RDW Coefficient of Variation 15.6 % (11.5-14.5); RDW Standard Deviation 48.7 fL (36.4-46.3); Red Blood Count 3.04 M/uL (4.2-5.4); White Blood Count 7.61 K/uL (4.8-10.8)
[2020-10-23 06:19] LABS: BUN Creatinine Ratio 11.7 (10-20); Calcium 8.8 mg/dl (8.5-10.1); Creatinine Clr Calc Pharmacy 21.9 ml/min; Est GFR (Non-African American) 15.5 ml/min; Potassium 4.3 mmol/L (3.5-5.1)
[2020-10-23] MEDS: INSULIN HUMAN NPH SC SCH ×2 (08:40→17:58)
[2020-10-23] MEDS: INSULIN ASPART 100 UNITS/ML VIAL SC SCH ×4 (08:41→21:16)
[2020-10-23] MEDS: ASPIRIN 81 MG ECTAB PO SCH (08:49)
[2020-10-23] MEDS: METOPROLOL TARTRATE 25 MG TAB PO SCH ×2 (08:49→20:56)
[2020-10-23] MEDS: CHOLECALCIFEROL 1,000 UNITS 25 MCG TAB PO SCH (08:50)
[2020-10-23] MEDS: RIVAROXABAN 2.5 MG TAB PO SCH ×2 (08:50→20:55)
[2020-10-23] MEDS: traMADol HCL 50 MG TABLET PO PRN (08:55)
--- NOTE | 2020-10-23 09:47 | Pharmacy Report ---
Pharmacy Glycemic Short Note 2 - Date of Service October 23, 2020 - Glycemic Short BSG Results (Last 24 hours): 10/22/20 10/22/20 10/22/20 11:21 16:51 20:38 Glucose POC Glucose 224 H 88 163 H 10/23/20 10/23/20 10/23/20 03:22 03:33 05:35 Glucose 114 H POC Glucose 68 L* 83 10/23/20 08:10 Glucose POC Glucose 132 H OUTPATIENT ANTIDIABETIC REGIMEN: * Metformin 500mg PO BID * NPH 65-80 units BID - gave 70 units this morning * Regular insulin 70 units TID with meals ASSESSMENT: 10/23 * Pt has received 223 units of insulin over the past 24hrs * 125 units of basal with NPH * 98 units of bolus with NovoLog * BSGs 59-411-02-163-68-132 mg/dl * Pt with slight LOW BSG overnight @ 0300; BSG = 68mg/dl; hpyo resolved with treatment at 83 mg/dl. * Will decrease basal insulin slightly * Will loosen CF since extra basal insulin on board. 10/21 * 60 year old female referred to the ED from wound care clinic today due to worsening infection of a right diabetic foot ulcer * Patient on 340-370 units of insulin /day at home * Will continue NPH for basal as used at home and use a tight CF/CR and titrate to goal * Overnight checks tonight as we determine patient's insulin needs while in patient * ADA & AACE recommend a goal blood sugar range 140-180 mg/dl for the majority of critically ill & non-critically ill patients. However, more stringent targets may be selected in individual cases. Will utilize more stringent goal of 110-140mg/dl based on patient age & comorbidities. Additionally, tighter glycemic control is warranted to facilitate wound/infection healing. PLAN FOR INPATIENT GLYCEMIC CONTROL: * Hold outpatient oral diabetes medications * Basal insulin * decrease NPH 60 units SQ BID with meals * Bolus insulin: loosen CF * NovoLog per scale ACHS or Q6hrs while NPO * Goal Range: Low 110 mg/dL - High 140 mg/dL * Correction Factor: 8 mg/dL/unit * Nutritional / Prandial insulin per carb ratio of 1 unit per 2 grams CHO consumed
[2020-10-23] MEDS ORDERED: HYDROmorphone INJ 0.5 MG/0.5 ML SYR IV STA (10:24)
--- NOTE | 2020-10-23 11:29 | Hospitalist Progress Note ---
Date of Service October 23, 2020 Assessment & Plan (1) Diabetic foot ulcer associated with type 2 diabetes mellitus, with fat layer exposed: Diabetic right foot ulcer with fat layer exposed History of recurrent diabetic foot wound Had small callus on the right lateral side foot few weeks ago, which progressed to become a open lesion Patient was treated with oral Bactrim, completed the course Follow-up visit at wound clinic shows progression of right foot wound, with evidence of cellulitis on right lower leg Patient is sent to ER Wound care consulted: Wound culture: Corynebacterium sensitivity pending Urine tract infection: Urine culture Klebsiella, multidrug resistant We will change antibiotic, DC cefepime, start on Levaquin intravenous which will cover for diabetic foot infected ulcer as well. DC daptomycin as patient does not need gram-positive coverage (2) Acute kidney injury superimposed on CKD: Suspect due to recent treatment of Bactrim Patient denies of any nausea vomiting or diarrhea, has been drinking fluids at home as much as possible to keep herself hydrated -Appreciate input from nephrology, Baseline creatinine 1.33 weeks ago, Admitted with creatinine 3.6-gradually improving to 3.2, Normal urine output, electrolytes has been stable Given patient stable volume status, no indication for IV fluids, monitor daily BMP, Avoid NSAIDs and contrast study Future prescription for Bactrim should be avoided for this patient, Bactrim added to her medication allergies/adverse reaction list (3) Insulin-requiring or dependent type II diabetes mellitus: - HOLD Metformin while admitted/due to ELROY Patient has been on fairly large dose of insulin at home Hemoglobin A1c 13 Pharmacy consult for glycemic management, appreciate input Patient was having hypoglycemic episode around midnight at home, 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 insulin dose will be adjusted accordingly - (4) Dyslipidemia: On simvastatin (5) PAD (peripheral artery disease): Severe peripheral artery disease required multiple vascular procedures in the past On aspirin statin and Xarelto Right lower extremity arterial Doppler suggestive of possible right femoral artery stent occlusion. -Possible oozing nonhealing of right foot wound. 1. Extensive atherosclerotic plaque within the right lower extremity. Occlusion versus trace flow within the right femoral artery stent. 2. Significantly diminished flow distal to the stent with monophasic, dampened flow within the right popliteal, anterior tibial and posterior tibial arteries. Remainder of vessels occluded. 3. Monophasic flow within the right common femoral artery which raises the possibility of inflow disease. -Had multiple procedures/PTCA done on lower extremity in the past, by interventional cardiology Dr. Martin Cr, Dr. Martin Cr consulted (6) Hypertension: BP appears to be stable - Continue outpatient metoprolol Hold losartan and Lasix due to acute renal failure (7) Chronic diastolic (congestive) heart failure: Holding Lasix and losartan until renal function improves. Volume status has been stable (8) Sleep apnea: Did not tolerate CPAP Nightly does not use any CPAP or BiPAP at night Will check for nocturnal pulse oximetry, patient may benefit with nasal cannula oxygen support at night Code status: Full Code DVT prophylaxis: on Xarelto outpatient Disposition: Expected to be discharged home when medically stable Admission and Anticipated Discharge Date Admission Date: October 21, 2020 Subjective Follow-up visit for nonhealing diabetic foot ulcer with fat layer exposed. Patient sitting up on chair, Reports his right foot pain has progressively gotten worse since last night Pain radiates from right lateral side to ankle, and radiation to right leg Does not have any fever, no chills Denies of any urinary symptoms Vitals been stable. No complaint of abdominal pain, no nausea vomiting, no cough or shortness of breath ,no dyspnea on exertion Review of Systems Review of Systems: All systems reviewed & are unremarkable except as noted in Subjective Musculoskeletal: as per Subjective / HPI Right foot pain/with radiation to right lower leg Physical Exam Physical Exam: Physical exam: General: Sitting up on edge of bed, obese, very pleasant, no sign of discomfort HEENT: Anicteric sclera Heart: Regular S1-S2, no carotid bruit, no JVD, trace bilateral lower extremity edema Lungs: Clear to auscultate, no wheeze or rales Abdomen: Soft nontender, Extremity: Right foot diabetic wound on on lateral side, open wound with whitish base/serous drainage noted, with surrounding erythema up to lower part of leg, increased warmth and tenderness noted Neuro: No focal neurological deficit normal speech, Psych: Alert awake oriented x3, normal affect Results & Data Results & Data ([facility]) Vital Signs (Past 12 Hours) Vital Signs Temp Pulse Resp BP Pulse Ox 10/23/20 07:20 36.9 C 67 16 114/68 99 (1) Sleep apnea Sleep apnea type: obstructive Qualified Code(s): G47.33 - Obstructive sleep apnea (adult) (pediatric) (2) Diabetic foot ulcer associated with type 2 diabetes mellitus, with fat layer exposed Diabetic foot ulcer location: midfoot Laterality: right Qualified Code(s): E11.621 - Type 2 diabetes mellitus with foot ulcer; L97.412 - Non-pressure chronic ulcer of right heel and midfoot with fat layer exposed (3) Hypertension Hypertension type: essential hypertension Qualified Code(s): I10 - Essential (primary) hypertension
[2020-10-23] MEDS: levoFLOXacin/D5W 750 MG/150 ML BAG IV SCH (12:26)
--- NOTE | 2020-10-23 14:35 | Nephrology Progress Note ---
Date of Service October 23, 2020 Assessment & Plan Admission and Anticipated Discharge Date Admission Date: October 21, 2020 Subjective No new issues overnight. Vital signs stable. Making urine and labs better. PHYSICAL EXAMINATION: GENERAL: Middle-aged white female who is not in overt respiratory distress. She is awake, alert, oriented x3. Normal accurate speech. HEENT: Mucous membrane is moist. NECK: Supple. No jugular venous distention. CHEST: Bilaterally clear to auscultation. CARDIOVASCULAR: S1, S2 regular. ABDOMEN: Soft, nontender. EXTREMITIES: Show no edema. She does have diabetic ulcer in the right lower extremity. SKIN: No rashes. LABORATORY TESTS: Reviewed. Creatinine trending down ASSESSMENT AND PLAN: A 60-year-old female who has longstanding uncontrolled diabetes as well as multiple complications associated with that including chronic kidney disease stage III with a baseline creatinine of 1.3, now admitted with acute renal failure and worsening diabetic ulcer in her right lower extremity. I was consulted for acute renal failure. She also has urinary tract infection with possible pyelonephritis. Acute renal failure: She does have baseline chronic kidney disease, but there is a definite acute component of the renal failure which is multifactorial related with recent Bactrim use, which caused the creatinine to be higher as well as some degree of toxic acute tubular necrosis in the setting of infection, urinary tract infection, diabetic ulcer. Fortunately, she is making urine and appears hemodynamically stable and creatinine is trending down. No further workup needed as the etiology is clear at this time. UTi--resistant bacterias. ?? Pyelo also. Results & Data ([facility]) Vital Signs (Past 12 Hours) Vital Signs Temp Pulse Resp BP Pulse Ox 10/23/20 07:20 36.9 C 67 16 114/68 99
--- NOTE | 2020-10-23 16:19 | Magnetic Resonance Report ---
MR ankle RT wo con CLINICAL HISTORY: Right ankle wound. Evaluate for osteomyelitis. COMPARISON STUDY: Right foot radiographs October 21, 2020. TECHNIQUE: Utilizing a 1.5 Elizabeth magnet and dedicated coil, multiplanar, [facility] was performed without intravenous contrast. FINDINGS: Skin markers were placed at site of wound within the lateral right midfoot. Note is made of subcutaneous increased T2 signal. This may reflect cellulitis. There is dorsal subcutaneous edema of the right foot. No fluid collection is identified to suggest an abscess on this unenhanced examinati on. Note is made of tibiotalar and subtalar joint osteoarthritis. Pes planus deformity is noted. Note is made of extensive osteophytosis and bony irregularity of the right midfoot as shown on radiograph s. This represents neuropathic arthropathy. Subchondral signal abnormality within the midfoot is due to to arthropathy. There is no marrow edema to suggest osteomyelitis within the right ankle or right hindfoot. The distal Achilles is intact. Plantar calcaneal spurring is noted. There is no evidence fo r acute fracture within the right ankle or hindfoot. IMPRESSION: 1. Wound of the lateral right midfoot. No fluid collection to suggest abscess. No evidence for osteom yelitis within the right ankle or hindfoot. 2. Findings suggestive of neuropathic arthropathy of the right midfoot as shown on radiographs. ACT 112: Negative or not required by law. Electronically signed by: Azael Morton M.D. 10/23/2020 4:18 PM
[2020-10-23] MEDS ORDERED: ONDANSETRON INJ 2 MG/ML 2 ML VIAL IV STA (19:30)
[2020-10-23] MEDS: ROSUVASTATIN CALCIUM 20 MG TAB PO SCH (20:55)
[2020-10-23] MEDS: POLYETHYLENE (MIRALAX) 17 GM PACK PO PRN (20:56)
[2020-10-24] MEDS: CARBOHYDRATES FOR HYPOGLYCEMIA PO PRN (01:55)
[2020-10-24] MEDS: HYDROmorphone INJ 0.5 MG/0.5 ML SYR IV PRN ×3 (06:04→22:46)
[2020-10-24] MEDS ORDERED: ONDANSETRON INJ 2 MG/ML 2 ML VIAL IV STA (06:18)
[2020-10-24 07:01] LABS: BUN Creatinine Ratio 10.7 (10-20); Calcium 9.5 mg/dl (8.5-10.1); Creatinine Clr Calc Pharmacy 22.1 ml/min; Est GFR (African American) 18.2 ml/min; Est GFR (Non-African American) 15.7 ml/min; Potassium 4.2 mmol/L (3.5-5.1)
[2020-10-24] MEDS ORDERED: INSULIN HUMAN NPH SC SCH (08:00)
[2020-10-24] MEDS: ASPIRIN 81 MG ECTAB PO SCH (08:49)
[2020-10-24] MEDS: CHOLECALCIFEROL 1,000 UNITS 25 MCG TAB PO SCH (08:50)
[2020-10-24] MEDS: METOPROLOL TARTRATE 25 MG TAB PO SCH ×2 (08:51→20:14)
[2020-10-24] MEDS: RIVAROXABAN 2.5 MG TAB PO SCH ×2 (08:51→20:14)
[2020-10-24] MEDS: INSULIN ASPART 100 UNITS/ML VIAL SC SCH ×4 (08:55→21:24)
--- NOTE | 2020-10-24 09:25 | Pharmacy Report ---
Pharmacy Glycemic Short Note 2 - Date of Service October 24, 2020 - Glycemic Short BSG Results (Last 24 hours): 10/23/20 10/23/20 10/23/20 12:06 16:56 20:36 Glucose POC Glucose 175 H 73 82 10/24/20 10/24/20 10/24/20 01:53 02:16 06:14 Glucose 103 H POC Glucose 58 L* 91 10/24/20 07:55 Glucose POC Glucose 90 OUTPATIENT ANTIDIABETIC REGIMEN: * Metformin 500mg PO BID * NPH 65-80 units BID - gave 70 units this morning * Regular insulin 70 units TID with meals * HbA1c: 13.1% (10/22/20) ASSESSMENT: 10/24 * BSGs labile yesterday, 68, 132, 175, 73, 58, and 91 mg/dL * Patient received 215 units of insulin yesterday (120 units of NPH and 95 units of prandial/correctional Novolog) * Fasting BSG of 90 mg/dL this morning * Will decrease NPH today given low BSGs throughout the day yesterday * Anticipate loosening Novolog parameters later today 10/23 * Pt has received 223 units of insulin over the past 24hrs * 125 units of basal with NPH * 98 units of bolus with NovoLog * BSGs 78-130-37-163-68-132 mg/dl * Pt with slight LOW BSG overnight @ 0300; BSG = 68mg/dl; hpyo resolved with treatment at 83 mg/dl. * Will decrease basal insulin slightly * Will loosen CF since extra basal insulin on board. 10/21 * 60 year old female referred to the ED from wound care clinic today due to worsening infection of a right diabetic foot ulcer * Patient on 340-370 units of insulin /day at home * Will continue NPH for basal as used at home and use a tight CF/CR and titrate to goal * Overnight checks tonight as we determine patient's insulin needs while inpatient * ADA & AACE recommend a goal blood sugar range 140-180 mg/dl for the majority of critically ill & non-critically ill patients. However, more stringent targets may be selected in individual cases. Will utilize more stringent goal of 110-140mg/dl based on patient age & comorbidities. Additionally, tighter glycemic control is warranted to facilitate wound/infection healing. PLAN FOR INPATIENT GLYCEMIC CONTROL: * Hold outpatient oral diabetes medications * Basal insulin * decrease NPH 50 units SC this morning * NPH scale this evening with dinner (40-50 units) - see EHR for details * Bolus insulin: will loosen with dinner * NovoLog per scale ACHS or Q6hrs while NPO * Goal Range: Low 110 mg/dL - High 140 mg/dL * Correction Factor: 8 mg/dL/unit * Nutritional / Prandial insulin per carb ratio of 1 unit per 3 grams CHO consumed PLAN FOR DISCHARGE: * tbd
--- NOTE | 2020-10-24 09:59 | Nephrology Progress Note ---
Date of Service October 24, 2020 Assessment & Plan (1) Acute kidney injury superimposed on CKD: ATN / acute on chronic renal failure in the setting of longstanding uncontrolled diabetes and significant PAD w/ nonhealing R diabetic foot ulcer. Baseline creatinine 1.3 in early october; admission creatinine 3.6. ATN causes include diabetic ulcer, presumptive UTI (ESBL Klebsiella on admission cx but no bacteria on that UA though there were 48 hr [employer]). volume status and chemistries acceptable currently. no indication for urgent dialysis. -daily bmp -cont to hold metformin, avoid nsaids Present on Admission?: Yes Admission and Anticipated Discharge Date Admission Date: October 21, 2020 Subjective no acute interval events except vascular consulted for possible fempop bypass RLE; no sob, no edema; denies voiding concerns, no rash or n/v Review of Systems Review of Systems: All systems reviewed & are unremarkable except as noted in Subjective Physical Exam Constitutional: well developed, + morbidly obese and cooperative; no acute distress Eyes: EOM intact bilaterally ENMT: Ears: no external ear abnormality Nose: no external nose abnormality Mouth: + dry oral mucous membranes Neck: no nuchal rigidity Respiratory: normal respiratory effort Auscultation: lungs clear to auscultation bilaterally and + diminished lung sounds Cardiovascular: RRR, no murmur, no edema Gastrointestinal (Abdomen): Inspection/Auscultation: normal bowel sounds Percussion/Palpation: abdomen soft; abdomen nontender Musculoskeletal: Extremities: strength 5/5 throughout Skin: no rashes, warm and dry + ulcer (image from this am reviewed) Neurologic: [place], fluent speech, no tremor Psychiatric: A+Ox3, euthymic affect Results & Data ([facility]) Vital Signs (Past 12 Hours) Vital Signs Temp Pulse Pulse Resp BP Pulse Ox Pulse Ox 10/24/20 07:59 36.6 C 61 18 117/69 98 10/24/20 01:40 63 98 10/23/20 23:08 68 98 10/23/20 22:25 36.9 C 63 16 125/54 L 100 Laboratory Results 10/23/20 05:35 10/24/20 06:14
--- NOTE | 2020-10-24 11:53 | Vascular Medicine Consultation ---
Date of Consultation October 24, 2020 Assessment & Plan (1) PAD (peripheral artery disease): 2. Right lateral foot diabetic foot ulcer/cellulitis 3. Type 2 diabetes complicated by peripheral neuropathy 4. Acute on chronic renal insufficiency 5. Chronic lower extremity edema/venous insufficiency/lymphedema 6. Hypertension Patient readmitted with wound infection/cellulitis in the setting of recurrent critical limb ischemia with occluded SFA stents on repeat duplex. Patient needs repeat right lower extremity revascularization. Patient has now had to 2 endovascular interventions to both her right and left SFAs which have subsequently failed despite drug-eluting balloon/atherectomy and stenting. Additional imaging limited currently by ELROY but feel durable long-term result unlikely with another attempted right lower extremity endovascular intervention. Has good distal runoff and recommend vascular surgery consultation for possible femoropopliteal bypass. History of Present Illness Attending Physician: Tata Sewell MD History of Present Illness Mrs. Simpson is a very pleasant 60-year-old woman with a history of type 2 diabetes and lower extremity PAD post multiple bilateral SFA interventions admitted with right lower extremity ulceration/cellulitis. Past medical history remarkable for diabetic neuropathy, CKD, dyslipidemia, obesity with ALLY. Patient followed by Dr. Gutierrez for atrial, ventricular ectopy and ASCVD risk factor modification. Has been dealing with mixed arterial/venous lower extremity ulcerations since at least September 2018 intermittently followed by wound clinic. Prior vascular interventions: 06/2019LT SFA - Angioplasty to SFA with 2 MARSHA (5x150, 5x220) 10/2019RT SFA - CSI atherectomy with angioplasty to SFA (6.0 x 220, 6.0 x 120 Lutonix) 01/2020LT SFA - CSI atherectomy with MARSHA angioplasty (6.0 x 60, 6.0 x 220 Lutonix), stenting to proximal to mid SFA (6.0 x 150 Supera). 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 04/2020-RT SFA - Jetstream atherectomy, MARSHA angioplasty (6.0 x 220 Lutonix), 2 overlapping stents from ostium to mid SFA (6.0 x 40 SES, 6.0 x 150 Supera). 3 vessel runoff to foot. 07/2020-LT GSV Venaseal Recently has been doing well. About 3 weeks ago started wearing new shoes and developed ulceration over lateral aspect of right mid/hindfoot at site of prior callus. Wound/cellulitis progressed despite p.o. Bactrim. Redness/pain improving on IV antibiotics. Wound culture showed Corynebacterium. MRI negative for abscess/osteo. 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 KOMAL/TBI 08/2020: Right KOMAL 0.47, absent toe pressures. Left KOMAL 0.73, TBI 0.12 KOMAL/TBI 06/2020: Right KOMAL 1.07, TBI 0.42. Left KOMAL 0.90, TBI 0.57 Allergies Allergy/AdvReac Type Severity Reaction Status Date / Time amoxicillin Allergy Intermediate HIVES & N/V Verified 10/21/20 16:08 clavulanic acid Allergy Intermediate HIVES & N/V Verified 10/21/20 16:08 lisinopril AdvReac Intermediate NAUSEA/VOMI Verified 10/21/20 16:08 TING Home Medications Medication Instructions Recorded Confirmed Type cholecalciferol (vitamin D3) 5,000 units PO QAM 09/16/18 10/21/20 History [Vitamin D3] furosemide 40 mg PO 4XWK 09/16/18 10/21/20 History furosemide 80 mg PO 3XWK 09/16/18 10/21/20 History losartan 50 mg PO QAM 09/16/18 10/21/20 History metoprolol tartrate 25 mg PO BID 09/16/18 10/21/20 History Novolin R Regular U-100 Insuln See Rx Instructions .ROUTE .COMPLEX 01/15/19 10/21/20 History rosuvastatin 40 mg PO HS 01/15/19 10/21/20 History aspirin 81 mg PO QAM 06/24/19 10/21/20 History metformin 500 mg PO BID 06/24/19 10/21/20 History polyethylene glycol 3350 [Miralax] 17 g PO DAILY PRN 02/05/20 10/21/20 History Novolin N Flexpen See Rx Instructions .ROUTE .COMPLEX 04/06/20 10/21/20 History magnesium oxide 500 mg PO QAM 04/06/20 10/21/20 History tramadol 50 mg tablet 50 mg PO DAILY PRN 05/03/20 10/21/20 History rivaroxaban 2.5 mg tablet 2.5 mg PO BID #180 tab 06/15/20 10/21/20 Rx acetaminophen [Tylenol Arthritis] 650 mg PO Q8H PRN 10/07/20 10/21/20 History collagenase clostridium histo. 1 applic TOPICAL DAILY PRN 10/21/20 10/21/20 History [Santyl] Patient History Medical History (Updated 10/22/20 @ 14:16 by Gab Rousseau MD) Chronic back pain Chronic diastolic (congestive) heart failure Chronic kidney disease (CKD), stage III (moderate) monitoring. Follows with Nephrology [facility]. Chronic venous insufficiency Clostridium difficile colitis history (~11/2016) -- treated no problems since. Diabetes mellitus type 2, uncontrolled Diabetic peripheral neuropathy associated with type 2 diabetes mellitus Dyslipidemia Hypertension On anticoagulant therapy Osteoarthritis PAD (peripheral artery disease) Sleep apnea no cpap Venous stasis ulcer current right foot wound, following with wound clinic Surgical History H/O vascular surgery bilateral lower legs, left leg vascular stent (August 2019/November 2019/December 2019) Dr. Cr [facility] History of cholecystectomy History of esophagogastroduodenoscopy (EGD) History of left cataract surgery History of lumpectomy of right breast benign History of tooth extraction S/P epidural steroid injection Status post colonoscopy "2012- 2 hyperplastic + 1 adenomatous polyps; 2016- normal" Status post tonsillectomy Status post tubal ligation Family History Mother Rheumatoid arthritis Father Emphysema of lung Peripheral artery disease Other No family history of adverse response to anesthesia Denies family history of CAD (coronary atherosclerotic disease) Social History Smoking Status: Former smoker Years Smoked: 45; Cigarettes Per Day: 1.5-2ppd; Second Hand Exposure: No; Hx Alcohol Use: No Hx Substance Use: No Preferred Language: Slovak Communication Ability: Effective Brand Strategy Manager Required: No Beliefs That Will Affect Care: None marital status: Current Living Situation: Spouse and Family Current Living Situation Comment: reports her son is also in poor health at this time current occupational status: disabled other: previous worked at [employer] Feels Safe at Home: Yes Safety Concerns: Feels Safe At This Time Assistive Devices: Glasses Review of Systems Review of Systems: All systems reviewed & are unremarkable except as noted in HPI & below Physical Exam Physical Exam: General: Comfortable, no acute distress Eyes: Sclerae anicteric, extraocular movements intact HENT: Oropharynx clear mucous membranes moist Lungs: Clear to auscultation bilaterally, no rhonchi or wheezes Cardiac: Regular rate and rhythm, no murmurs Abdomen: Soft, nontender Neuro: Diminished sensation to light touch bilaterally in lower extremities Psych: Alert orient x3, normal affect and mood Extremities/Vascular: -- 2+ radial bilaterally --Diminished popliteal bilaterally --Nonpalpable DP and PT pulses bilaterally. --Right lower extremity with 2+ edema to above the ankle, surrounding erythema extending over foot from lateral wound --2 x 4 cm superficial ulceration involving right lateral mid/hindfoot Results & Data ([facility]) Vital Signs (Past 12 Hours) Vital Signs Temp Pulse Pulse Resp BP Pulse Ox Pulse Ox 10/24/20 07:59 97.9 F 61 18 117/69 98 10/24/20 01:40 63 98 PG Care Time/CCT Total # of Minutes Spent Total Time Spent with Patient: Total time spent is greater than 50% in coordination of care (as documented) at patient's floor/unit and/or counseling patient: Coding Level of Care Code 14376 Inpt Consult Level 4 Diagnoses PAD (peripheral artery disease) I73.9
[2020-10-24] MEDS: ONDANSETRON INJ 2 MG/ML 2 ML VIAL IV PRN ×2 (13:48→22:46)
--- NOTE | 2020-10-24 17:24 | Hospitalist Progress Note ---
Date of Service October 24, 2020 Assessment & Plan (1) Diabetic foot ulcer associated with type 2 diabetes mellitus, with fat layer exposed: Diabetic right foot ulcer with fat layer exposed History of recurrent diabetic foot wound Had small callus on the right lateral side foot few weeks ago, which progressed to become a open lesion Patient was treated with oral Bactrim, completed the course Follow-up visit at wound clinic shows progression of right foot wound, with evidence of cellulitis on right lower leg Patient is sent to ER Wound care consulted: Wound culture: Corynebacterium sensitivity pending Urine tract infection: Urine culture Klebsiella, multidrug resistant We will change antibiotic, DC cefepime, start on Levaquin intravenous which will cover for diabetic foot infected ulcer as well. DC daptomycin as patient does not need gram-positive coverage (2) Acute kidney injury superimposed on CKD: Suspect due to recent treatment of Bactrim Patient denies of any nausea vomiting or diarrhea, has been drinking fluids at home as much as possible to keep herself hydrated -Appreciate input from nephrology, Baseline creatinine 1.33 weeks ago, Admitted with creatinine 3.6-gradually improving to 3.2, Normal urine output, electrolytes has been stable Given patient stable volume status, no indication for IV fluids, monitor daily BMP, Avoid NSAIDs and contrast study Future prescription for Bactrim should be avoided for this patient, Bactrim added to her medication allergies/adverse reaction list (3) Insulin-requiring or dependent type II diabetes mellitus: - HOLD Metformin while admitted/due to ELROY Patient has been on fairly large dose of insulin at home Hemoglobin A1c 13 Pharmacy consult for glycemic management, appreciate input Patient was having hypoglycemic episode around midnight at home, Episode of hypoglycemia noted 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 insulin dose will be adjusted accordingly - (4) Dyslipidemia: On simvastatin (5) PAD (peripheral artery disease): Severe peripheral artery disease required multiple vascular procedures in the past On aspirin statin and Xarelto Right lower extremity arterial Doppler suggestive of possible right femoral artery stent occlusion. -Possible oozing nonhealing of right foot wound. 1. Extensive atherosclerotic plaque within the right lower extremity. Occlusion versus trace flow within the right femoral artery stent. 2. Significantly diminished flow distal to the stent with monophasic, dampened flow within the right popliteal, anterior tibial and posterior tibial arteries. Remainder of vessels occluded. 3. Monophasic flow within the right common femoral artery which raises the possibility of inflow disease. -Had multiple procedures/PTCA done on lower extremity in the past, by interventional cardiology Dr. Martin Cr, Dr. Martin Cr consulted patient input, patient will not benefit for further angioplasty, recommends female with normal popliteal bypass, with vascular surgery, procedure has to be kept on hold till patient's kidney function improves secondary to contrast exposure risk (6) Hypertension: BP appears to be stable - Continue outpatient metoprolol Hold losartan and Lasix due to acute renal failure (7) Chronic diastolic (congestive) heart failure: Holding Lasix and losartan until renal function improves. Volume status has been stable (8) Sleep apnea: Did not tolerate CPAP Nightly does not use any CPAP or BiPAP at night Will check for nocturnal pulse oximetry, patient may benefit with nasal cannula oxygen support at night Code status: Full Code DVT prophylaxis: on Xarelto outpatient Disposition: Expected to be discharged home when medically stable Admission and Anticipated Discharge Date Admission Date: October 21, 2020 Subjective Follow-up visit for nonhealing diabetic foot ulcer with fat layer exposed. Patient reports improvement of foot pain after adjustment of pain medication No complaint of shortness of breath no fever or chills, appetite fair Review of Systems Review of Systems: All systems reviewed & are unremarkable except as noted in Subjective Physical Exam Physical Exam: Physical exam: General: Sitting up on edge of bed, obese, very pleasant, no sign of discomfort HEENT: Anicteric sclera Heart: Regular S1-S2, no carotid bruit, no JVD, trace bilateral lower extremity edema Lungs: Clear to auscultate, no wheeze or rales Abdomen: Soft nontender, Extremity: Right foot diabetic wound on on lateral side, open wound with whitish base/serous drainage noted, with surrounding erythema up to lower part of leg, increased warmth and tenderness noted Neuro: No focal neurological deficit normal speech, Psych: Alert awake oriented x3, normal affect Results & Data Results & Data ([facility]) Vital Signs (Past 12 Hours) Vital Signs Temp Pulse Resp BP Pulse Ox 10/24/20 16:58 37.0 C 67 18 137/70 98 10/24/20 07:59 36.6 C 61 18 117/69 98 (1) Sleep apnea Sleep apnea type: obstructive Qualified Code(s): G47.33 - Obstructive sleep apnea (adult) (pediatric) (2) Diabetic foot ulcer associated with type 2 diabetes mellitus, with fat layer exposed Diabetic foot ulcer location: midfoot Laterality: right Qualified Code(s): E11.621 - Type 2 diabetes mellitus with foot ulcer; L97.412 - Non-pressure chronic ulcer of right heel and midfoot with fat layer exposed (3) Hypertension Hypertension type: essential hypertension Qualified Code(s): I10 - Essential (primary) hypertension
--- NOTE | 2020-10-24 17:59 | Electrocardiogram Report ---
Test Reason : Blood Pressure : / mmHG Vent. Rate : 064 BPM Atrial Rate : 064 BPM P-R Int : 178 ms QRS Dur : 120 ms QT Int : 438 ms P-R-T Axes : 051 -41 001 degrees QTc Int : 451 ms Normal sinus rhythm Left axis deviation Abnormal ECG When compared with ECG of 20-OCT-2019 14:34, No significant change was found Confirmed by Martin Berry ([id number]) on 10/24/2020 5:58:39 PM Referred By: REFERRED SELF Confirmed By:Norris Berry
[2020-10-24] MEDS: INSULIN HUMAN NPH SC SCH (18:21)
[2020-10-24] MEDS: traMADol HCL 50 MG TABLET PO PRN (18:27)
[2020-10-24] MEDS: ROSUVASTATIN CALCIUM 20 MG TAB PO SCH (20:14)
[2020-10-24] MEDS: POLYETHYLENE (MIRALAX) 17 GM PACK PO PRN (20:15)
[2020-10-25] MEDS: INSULIN ASPART 100 UNITS/ML VIAL SC SCH ×4 (08:54→21:25)
[2020-10-25] MEDS: INSULIN HUMAN NPH SC SCH ×2 (08:54→18:03)
--- NOTE | 2020-10-25 09:04 | Nephrology Progress Note ---
Date of Service October 25, 2020 Assessment & Plan (1) Acute kidney injury superimposed on CKD: ATN / acute on chronic renal failure in the setting of longstanding uncontrolled diabetes and significant PAD w/ nonhealing R diabetic foot ulcer. Baseline creatinine 1.3 in early october; admission creatinine 3.6. 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 volume status and chemistries acceptable currently. no indication for urgent dialysis. -daily bmp >>f/u pending bmp -cont to hold metformin, avoid nsaids (2) Anemia of chronic disease: monitor at least every 48 hrs; chronically hgb is in 10s. Improved slightly today from mid eights to low nines. Continue to monitor Present on Admission?: Yes Admission and Anticipated Discharge Date Admission Date: October 21, 2020 Subjective Seen on rounds at 9:15 AM. No concerns except constipation. Full breakfast. Voiding without concern. Denies dyspnea or chest pain. Denies uncontrolled pain. Ambulates in the room Review of Systems Review of Systems: All systems reviewed & are unremarkable except as noted in Subjective Physical Exam Constitutional: well developed, + morbidly obese and cooperative; no acute distress Sitting on the side of the bed on room air with an empty breakfast tray beside her Eyes: EOM intact bilaterally ENMT: Ears: no external ear abnormality Nose: no external nose abnormality Mouth: + dry oral mucous membranes Neck: no nuchal rigidity Respiratory: normal respiratory effort Auscultation: lungs clear to auscultation bilaterally and + diminished lung sounds Cardiovascular: RRR, no murmur, no edema Gastrointestinal (Abdomen): Inspection/Auscultation: normal bowel sounds Percussion/Palpation: abdomen soft; abdomen nontender Musculoskeletal: Extremities: strength 5/5 throughout Skin: no rashes, warm and dry + ulcer (image from October 24 not reviewed; bandaged) Neurologic: Moves all extremities, fluent speech, no tremor Psychiatric: A+Ox3, euthymic affect Results & Data ([facility]) Vital Signs (Past 12 Hours) Vital Signs Temp Pulse Resp BP Pulse Ox 10/25/20 08:16 36.6 C 72 18 125/60 96 10/24/20 22:29 36.9 C 64 16 149/70 H 99 Laboratory Results 10/23/20 05:35 10/24/20 06:14
[2020-10-25] MEDS: ONDANSETRON INJ 2 MG/ML 2 ML VIAL IV PRN ×3 (09:05→20:32)
[2020-10-25] MEDS: HYDROmorphone INJ 0.5 MG/0.5 ML SYR IV PRN ×3 (09:05→20:32)
[2020-10-25] MEDS: RIVAROXABAN 2.5 MG TAB PO SCH ×2 (09:06→20:26)
[2020-10-25] MEDS: CHOLECALCIFEROL 1,000 UNITS 25 MCG TAB PO SCH (09:07)
[2020-10-25] MEDS: ASPIRIN 81 MG ECTAB PO SCH (09:07)
[2020-10-25] MEDS: METOPROLOL TARTRATE 25 MG TAB PO SCH ×2 (09:08→20:26)
[2020-10-25 10:42] LABS: Basophils # (auto) 0.03 K/uL (0-0.2); Basophils % (auto) 0.4 %; Eosinophils # (auto) 0.32 K/uL (0-0.5); Eosinophils % (auto) 3.8 %; Hematocrit (blood only) 27.7 % (37-47); Hemoglobin 9.2 g/dL (12.0-16.0); Immature Granulocytes # (auto) 0.08 K/uL (0.00-0.02); Lymphocytes # (auto) 2.12 K/uL (1.2-3.4); Lymphocytes % (auto) 25.5 %; Mean Corpuscular Hgb Conc 33.2 g/dL (32-36); Mean Corpuscular Volume 84.5 fL (80-100); Mean Platelet Volume 8.9 fL (7.4-10.4); Monocytes # (auto) 0.69 K/uL (0.11-0.59); Monocytes % (auto) 8.3 %; Neutrophils # (auto) 5.09 K/uL (1.4-6.5); Platelet Count 262 K/uL (130-400); RDW Coefficient of Variation 15.8 % (11.5-14.5); RDW Standard Deviation 48.7 fL (36.4-46.3); Red Blood Count 3.28 M/uL (4.2-5.4); White Blood Count 8.33 K/uL (4.8-10.8)
[2020-10-25 10:59] LABS: BUN Creatinine Ratio 10.7 (10-20); Creatinine Clr Calc Pharmacy 20.5 ml/min; Est GFR (African American) 16.6 ml/min; Est GFR (Non-African American) 14.3 ml/min; Potassium 3.9 mmol/L (3.5-5.1)
[2020-10-25] MEDS: levoFLOXacin/D5W 750 MG/150 ML BAG IV SCH (12:55)
[2020-10-25] MEDS: ROSUVASTATIN CALCIUM 20 MG TAB PO SCH (20:25)
[2020-10-26] MEDS: traMADol HCL 50 MG TABLET PO PRN ×2 (07:45→20:33)
[2020-10-26] MEDS: RIVAROXABAN 2.5 MG TAB PO SCH ×2 (07:46→20:27)
[2020-10-26] MEDS: METOPROLOL TARTRATE 25 MG TAB PO SCH ×2 (07:46→20:33)
[2020-10-26] MEDS: ASPIRIN 81 MG ECTAB PO SCH (07:50)
[2020-10-26] MEDS: CHOLECALCIFEROL 1,000 UNITS 25 MCG TAB PO SCH (07:51)
[2020-10-26] MEDS: CARBOHYDRATES FOR HYPOGLYCEMIA PO PRN (07:52)
[2020-10-26] MEDS: INSULIN ASPART 100 UNITS/ML VIAL SC SCH ×4 (08:28→20:38)
[2020-10-26] MEDS: INSULIN HUMAN NPH SC SCH ×2 (09:15→18:25)
--- NOTE | 2020-10-26 09:23 | Pharmacy Report ---
Pharmacy Glycemic Short Note 2 - Date of Service October 26, 2020 - Glycemic Short BSG Results (Last 24 hours): 10/25/20 10/25/20 10/25/20 10:30 11:49 17:08 Glucose 112 H POC Glucose 112 H 112 H 10/25/20 10/26/20 10/26/20 20:41 07:38 07:54 Glucose POC Glucose 145 H 57 L* 78 OUTPATIENT ANTIDIABETIC REGIMEN: * Metformin 500mg PO BID * NPH 65-80 units BID - gave 70 units this morning * Regular insulin 70 units TID with meals * HbA1c: 13.1% (10/22/20) ASSESSMENT: 10/26: * BSGs were well controlled yesterday: [phone] mg/dL * Received 90 units of NPH + 59 units of Novolog * Fasting hypoglycemia this AM at 57 mg/dL. Patient was symptomatic and required 15 g of CHO to bring BSG back up to 78 mg/dL. * She refused her AM Novolog so will not adjust NPH dose this morning. Also, her BSGs have still been increasing throughout the daytime. Expecting her lunch BSG to be elevated secondary to uncovered carbs. * Planning to reduce PM NPH dose by ~25% this evening to prevent fasting hypoglycemia tomorrow. 10/24: * BSGs labile yesterday, 68, 132, 175, 73, 58, and 91 mg/dL * Patient received 215 units of insulin yesterday (120 units of NPH and 95 units of prandial/correctional Novolog) * Fasting BSG of 90 mg/dL this morning * Will decrease NPH today given low BSGs throughout the day yesterday * Anticipate loosening Novolog parameters later today PLAN FOR INPATIENT GLYCEMIC CONTROL: * Hold outpatient oral diabetes medications * Basal insulin - decreased * NPH 40 units SC this morning * NPH scale this evening with dinner (30-35 units) - see EHR for details * Bolus insulin - no change * NovoLog per scale ACHS or Q6hrs while NPO * Goal Range: Low 110 mg/dL - High 140 mg/dL * Correction Factor: 8 mg/dL/unit * Nutritional / Prandial insulin per carb ratio of 1 unit per 3 grams CHO consumed PLAN FOR DISCHARGE: * HbA1c = 13.1% from 10/22/20. This is well above her current goal range of < 7% based on her age and comorbidities. Compliance and cost seem to be prohibitive for this patient. * Strongly recommend education regarding T2DM management as well as referral to local endocrinology office or MTM clinic. * Does have CKD with an eGFR around 15 so would consider discontinuing Metformin upon discharge. * Recommend starting a weekly GLP-1 receptor agonist upon discharge. * This will be based off insurance coverage and patient preference of weekly vs daily injection * Ozempic 0.25 mg SC weekly would be recommended if it is covered * Consider changing basal and prandial insulin if they are covered by patient's insurance.
[2020-10-26 09:30] LABS: Calcium 10.1 mg/dl (8.5-10.1); Creatinine Clr Calc Pharmacy 22.7 ml/min; Est GFR (African American) 18.9 ml/min; Est GFR (Non-African American) 16.3 ml/min
[2020-10-26] MEDS: ONDANSETRON INJ 2 MG/ML 2 ML VIAL IV PRN (12:24)
[2020-10-26] MEDS: HYDROmorphone INJ 0.5 MG/0.5 ML SYR IV PRN ×2 (12:24→18:30)
--- NOTE | 2020-10-26 12:39 | Hospitalist Progress Note ---
Date of Service Late entry, date of service October 25 at 4 PM Assessment & Plan (1) Diabetic foot ulcer associated with type 2 diabetes mellitus, with fat layer exposed: Pt was at the wound care clinic and was sent to the ER for worsening diabetic foot ulcer Failed outpatient therapy for Bactrim Diabetic right foot ulcer with fat layer exposed History of recurrent diabetic foot wound MRI of R foot showed wound of the lateral right midfoot. No fluid collection to suggest abscess. No evidence for osteomyelitis within the right ankle or hindfoot. Wound cx grew Corynebacterium Wound care on board IV Cefepime and Dabtomycin were discontinued and was transition to Levaquin IV ID consulted -appreciate input (2) UTI (urinary tract infection): Urine culture grew Klebsiella with multidrug resistant on sensitivity Was starting on Levaquin intravenous which will cover for diabetic foot infected ulcer as well. (3) Acute kidney injury superimposed on CKD: Suspect due to recent treatment of Bactrim Creatinine on admission 3.6, Baseline creatinine 1.33 weeks ago Creatinine 2.27 today Nephrology on board Avoid NSAIDs and contrast study Future prescription for Bactrim should be avoided for this patient, Bactrim added to her medication allergies/adverse reaction list (4) Insulin-requiring or dependent type II diabetes mellitus: Most recent HBa1c 13 Continue to hold Metformin Pharmacy consult for glycemic management Continue insulin sliding scale (5) Dyslipidemia: On simvastatin (6) PAD (peripheral artery disease): Severe peripheral artery disease required multiple vascular procedures in the past On aspirin statin and Xarelto Right lower extremity arterial Doppler suggestive of possible right femoral artery stent occlusion. -Possible oozing nonhealing of right foot wound. 1. Extensive atherosclerotic plaque within the right lower extremity. Occlusion versus trace flow within the right femoral artery stent. 2. Significantly diminished flow distal to the stent with monophasic, dampened flow within the right popliteal, anterior tibial and posterior tibial arteries. Remainder of vessels occluded. 3. Monophasic flow within the right common femoral artery which raises the possibility of inflow disease. -Had multiple procedures/PTCA done on lower extremity in the past, by interventional cardiology Dr. Martin Cr, Dr. Martin Cr consulted patient input, patient will not benefit for further angioplasty, femoral-popliteal bypass, with vascular surgery, procedure has to be kept on hold till patient's kidney function improves secondary to contrast exposure risk Patient will need vascular surgery consult, (7) Hypertension: BP appears to be stable - Continue outpatient metoprolol Hold losartan and Lasix due to acute renal failure (8) Chronic diastolic (congestive) heart failure: Holding Lasix and losartan until renal function improves. Volume status has been stable (9) Sleep apnea: Did not tolerate CPAP Nightly does not use any CPAP or BiPAP at night No significant desaturation noted on nocturnal pulse oximetry Code status: Full Code DVT prophylaxis: on Xarelto outpatient Disposition: Expected to be discharged home when medically stable Admission and Anticipated Discharge Date Admission Date: October 21, 2020 Subjective Late entry, date of service at 4 PM Pt was seen and examined for follow R foot diabetic foot ulcer Right foot pain now well controlled with current pain regimen Denies any chest pain, palpitation, dizziness and SOB Physical Exam Physical Exam: Physical exam: General: Sitting up on edge of bed, obese, very pleasant, no sign of discomfort HEENT: Anicteric sclera Heart: Regular S1-S2, no carotid bruit, no JVD, trace bilateral lower extremity edema Lungs: Clear to auscultate, no wheeze or rales Abdomen: Soft nontender, Extremity: Right foot diabetic wound on on lateral side, open wound with whitish base/serous drainage noted, with surrounding erythema up to lower part of leg, increased warmth and tenderness noted Neuro: No focal neurological deficit normal speech, Psych: Alert awake oriented x3, normal affect Results & Data Results & Data ([facility]) Vital Signs (Past 12 Hours) Vital Signs Temp Pulse Resp BP Pulse Ox 10/26/20 07:29 36.7 C 64 14 144/70 H 97 (1) Diabetic foot ulcer associated with type 2 diabetes mellitus, with fat layer exposed Diabetic foot ulcer location: midfoot Laterality: right Qualified Code(s): E11.621 - Type 2 diabetes mellitus with foot ulcer; L97.412 - Non-pressure chronic ulcer of right heel and midfoot with fat layer exposed (2) Hypertension Hypertension type: essential hypertension Qualified Code(s): I10 - Essential (primary) hypertension (3) Sleep apnea Sleep apnea type: obstructive Qualified Code(s): G47.33 - Obstructive sleep apnea (adult) (pediatric)
--- NOTE | 2020-10-26 12:58 | Nephrology Progress Note ---
Date of Service October 26, 2020 Assessment & Plan (1) Acute kidney injury superimposed on CKD: ATN / acute on chronic renal failure in the setting of longstanding uncontrolled diabetes and significant PAD w/ nonhealing R diabetic foot ulcer. Baseline creatinine 1.3 in early october; admission creatinine 3.6. ATN causes include diabetic ulcer, presumptive UTI (ESBL Klebsiella on admission cx but no bacteria on that UA though there were 48 hr [employer]). volume status and chemistries acceptable currently, though mild hyperchloremia noted. no indication for urgent dialysis. -daily bmp >> her renal function has finally started a small improvement -cont to hold OP metformin, losartan, lasix; avoid nsaids Waiting for renal function to improve enough so she can undergo vascular procedure >> renal recovery may take weeks though today is encouraging; if urgent vascular procedure needed may need to make tough clinical decisions From renal standpoint she could be d/c with the following -weekly bmp x 6 which we would order -continue to hold metformin, lasix, losartan -f/u in CKD clinic any available provider w/in 2-3 weeks [facility] or [facility] coordinated w/ Dr Pemberton (2) Anemia of chronic disease: monitor at least every 48 hrs; chronically hgb is in 10s. stable today/remains improved in low 9's. Continue to monitor Admission and Anticipated Discharge Date Admission Date: October 21, 2020 Subjective seen on rounds samantha 10 am; no interval events. apart from R foot pain w/ dressing change parker no c/o. no sob, no voiding concerns, no n/v, no other uncontrolled pain, no edema. Review of Systems Review of Systems: All systems reviewed & are unremarkable except as noted in Subjective Physical Exam Constitutional: well developed, + morbidly obese and cooperative; no acute distress Eyes: EOM intact bilaterally ENMT: Ears: no external ear abnormality Nose: no external nose abnormality Mouth: + dry oral mucous membranes Neck: no nuchal rigidity Respiratory: normal respiratory effort Auscultation: lungs clear to auscultation bilaterally and + diminished lung sounds Cardiovascular: RRR, no murmur, no edema Gastrointestinal (Abdomen): Inspection/Auscultation: normal bowel sounds Percussion/Palpation: abdomen soft; abdomen nontender Musculoskeletal: Extremities: strength 5/5 throughout Skin: no rashes, warm and dry + ulcer (>6c diametr largest dimension with exposed fatty tissue) Neurologic: te[place]ada, fluent speech, no tremor Psychiatric: A+Ox3, euthymic affect Results & Data ([facility]) Vital Signs (Past 12 Hours) Vital Signs Temp Pulse Resp BP Pulse Ox 10/26/20 07:29 36.7 C 64 14 144/70 H 97 Laboratory Results 10/25/20 10:30 10/26/20 08:55
--- NOTE | 2020-10-26 19:14 | Hospitalist Progress Note ---
Date of Service October 26, 2020 Assessment & Plan (1) Diabetic foot ulcer associated with type 2 diabetes mellitus, with fat layer exposed: Pt was at the wound care clinic and was sent to the ER for worsening diabetic foot ulcer Failed outpatient therapy for Bactrim Diabetic right foot ulcer with fat layer exposed History of recurrent diabetic foot wound MRI of R foot showed wound of the lateral right midfoot. No fluid collection to suggest abscess. No evidence for osteomyelitis within the right ankle or hindfoot. Wound cx grew Corynebacterium Wound care on board IV Cefepime and Dabtomycin were discontinued and was transition to Levaquin IV ID consulted - Pending (2) UTI (urinary tract infection): Urine culture grew Klebsiella with multidrug resistant on sensitivity Was starting on Levaquin intravenous which will cover for diabetic foot infected ulcer as well. (3) Acute kidney injury superimposed on CKD: Suspect due to recent treatment of Bactrim Creatinine on admission 3.6, Baseline creatinine 1.33 weeks ago Creatinine 2.97 today Nephrology on board Avoid NSAIDs and contrast study Future prescription for Bactrim should be avoided for this patient, Bactrim added to her medication allergies/adverse reaction list (4) Insulin-requiring or dependent type II diabetes mellitus: Most recent HBa1c 13 Continue to hold Metformin Pharmacy consult for glycemic management Continue insulin sliding scale (5) Dyslipidemia: On simvastatin (6) PAD (peripheral artery disease): Severe peripheral artery disease required multiple vascular procedures in the past On aspirin statin and Xarelto Right lower extremity arterial Doppler suggestive of possible right femoral artery stent occlusion. -Possible oozing nonhealing of right foot wound. 1. Extensive atherosclerotic plaque within the right lower extremity. Occlusion versus trace flow within the right femoral artery stent. 2. Significantly diminished flow distal to the stent with monophasic, dampened flow within the right popliteal, anterior tibial and posterior tibial arteries. Remainder of vessels occluded. 3. Monophasic flow within the right common femoral artery which raises the possibility of inflow disease. -Had multiple procedures/PTCA done on lower extremity in the past, by interventional cardiology Dr. Martin Cr, Dr. Martin Cr consulted patient input, patient will not benefit for further angioplasty, recommends female with normal popliteal bypass, with vascular surgery, procedure has to be kept on hold till patient's kidney function improves secondary to contrast exposure risk (7) Hypertension: BP appears to be stable - Continue outpatient metoprolol Hold losartan and Lasix due to acute renal failure (8) Chronic diastolic (congestive) heart failure: Holding Lasix and losartan until renal function improves. Volume status has been stable (9) Sleep apnea: Did not tolerate CPAP Nightly does not use any CPAP or BiPAP at night Will check for nocturnal pulse oximetry, patient may benefit with nasal cannula oxygen support at night Code status: Full Code DVT prophylaxis: on Xarelto outpatient Disposition: Expected to be discharged home when medically stable Admission and Anticipated Discharge Date Admission Date: October 21, 2020 Subjective Pt was seen and examined for follow R foot diabetic foot ulcer Sitting at the edge of the bed with no distress playing in her tablet Pt said that she feels ok She said that the swelling and erythema improve Denies any chest pain, palpitation, dizziness and SOB Review of Systems Review of Systems: All systems reviewed & are unremarkable except as noted in Subjective Physical Exam Physical Exam: General- No acute distress Head- atraumatic Eyes- PERRL, EOMI, ENT- oropharynx clear Neck- supple, no JVD Lungs- clear to auscultation Heart- regular rhythm; no murmur Abdomen- normal bowel sounds, soft, nontender Extremities- no calf tenderness, R dorsal foot erythema and swelling Neuro- alert, oriented x 3; PERRL, EOMI; no facial palsy; no dysarthria Skin- warm & dry, erythema in dorsal area r foot Results & Data Results & Data ([facility]) Vital Signs (Past 12 Hours) Vital Signs Temp Pulse Pulse Resp BP Pulse Ox 10/26/20 15:53 36.5 C 66 16 132/64 98 10/26/20 07:29 36.7 C 64 14 144/70 H 97 (1) Sleep apnea Sleep apnea type: obstructive Qualified Code(s): G47.33 - Obstructive sleep apnea (adult) (pediatric) (2) Diabetic foot ulcer associated with type 2 diabetes mellitus, with fat layer exposed Diabetic foot ulcer location: midfoot Laterality: right Qualified Code(s): E11.621 - Type 2 diabetes mellitus with foot ulcer; L97.412 - Non-pressure chronic ulcer of right heel and midfoot with fat layer exposed (3) Hypertension Hypertension type: essential hypertension Qualified Code(s): I10 - Essential (primary) hypertension
[2020-10-26] MEDS: ROSUVASTATIN CALCIUM 20 MG TAB PO SCH (20:34)
[2020-10-27] MEDS: CARBOHYDRATES FOR HYPOGLYCEMIA PO PRN ×3 (04:43→05:32)
[2020-10-27] MEDS: HYDROmorphone INJ 0.5 MG/0.5 ML SYR IV PRN ×4 (04:47→21:15)
[2020-10-27 08:32] LABS: BUN Creatinine Ratio 15.2 (10-20); Calcium 10.2 mg/dl (8.5-10.1); Creatinine Clr Calc Pharmacy 24.4 ml/min; Est GFR (African American) 20.5 ml/min; Est GFR (Non-African American) 17.7 ml/min; Potassium 4.3 mmol/L (3.5-5.1)
[2020-10-27] MEDS: INSULIN ASPART 100 UNITS/ML VIAL SC SCH ×4 (08:54→23:18)
[2020-10-27] MEDS: INSULIN HUMAN NPH SC SCH ×2 (08:54→18:21)
[2020-10-27] MEDS: CHOLECALCIFEROL 1,000 UNITS 25 MCG TAB PO SCH (08:59)
[2020-10-27] MEDS: ASPIRIN 81 MG ECTAB PO SCH (08:59)
[2020-10-27] MEDS: METOPROLOL TARTRATE 25 MG TAB PO SCH ×2 (08:59→21:19)
[2020-10-27] MEDS: RIVAROXABAN 2.5 MG TAB PO SCH ×2 (08:59→21:20)
[2020-10-27] MEDS: traMADol HCL 50 MG TABLET PO PRN (11:34)
[2020-10-27] MEDS: levoFLOXacin/D5W 750 MG/150 ML BAG IV SCH (13:06)
--- NOTE | 2020-10-27 15:17 | Pharmacy Report ---
Pharmacy Glycemic Short Note 2 - Date of Service October 27, 2020 - Glycemic Short BSG Results (Last 24 hours): 10/26/20 10/26/20 10/27/20 16:59 20:37 04:40 Glucose POC Glucose 189 H 123 H 63 L* 10/27/20 10/27/20 10/27/20 05:01 05:22 05:53 Glucose POC Glucose 61 L* 65 L* 91 10/27/20 10/27/20 10/27/20 07:25 08:04 11:52 Glucose 131 H POC Glucose 162 H 243 H OUTPATIENT ANTIDIABETIC REGIMEN: * Metformin 500mg PO BID * NPH 65-80 units BID - gave 70 units this morning * Regular insulin 70 units TID with meals * HbA1c: 13.1% (10/22/20) ASSESSMENT: 10/27: * BSGs overall were well controlled yesterday despite the patient refusing AM NovoLog. Fasting BSG was lower again today. Will plan to decrease evening NovoLog again today. Patient does not seem to be requiring much if any NovoLog at bedtime, so I do not think this is the cause. * Lunchtime BSG was elevated today, but will mot react as both NPH and NovoLog doses were administered a little later today. * Patient continues to tolerate a diet. 10/26: * BSGs were well controlled yesterday: 68-562-526-145 mg/dL * Received 90 units of NPH + 59 units of Novolog * Fasting hypoglycemia this AM at 57 mg/dL. Patient was symptomatic and required 15 g of CHO to bring BSG back up to 78 mg/dL. * She refused her AM Novolog so will not adjust NPH dose this morning. Also, her BSGs have still been increasing throughout the daytime. Expecting her lunch BSG to be elevated secondary to uncovered carbs. * Planning to reduce PM NPH dose by ~25% this evening to prevent fasting hypoglycemia tomorrow. 10/24: * BSGs labile yesterday, 68, 132, 175, 73, 58, and 91 mg/dL * Patient received 215 units of insulin yesterday (120 units of NPH and 95 units of prandial/correctional Novolog) * Fasting BSG of 90 mg/dL this morning * Will decrease NPH today given low BSGs throughout the day yesterday * Anticipate loosening Novolog parameters later today PLAN FOR INPATIENT GLYCEMIC CONTROL: * Hold outpatient oral diabetes medications * Basal insulin - decreased * NPH 30 units SC this morning * NPH scale this evening with dinner (25-30 units) - see EHR for details * Bolus insulin - no change * NovoLog per scale ACHS or Q6hrs while NPO * Goal Range: Low 110 mg/dL - High 140 mg/dL * Correction Factor: 8 mg/dL/unit * Nutritional / Prandial insulin per carb ratio of 1 unit per 3 grams CHO consumed PLAN FOR DISCHARGE: * HbA1c = 13.1% from 10/22/20. This is well above her current goal range of < 7% based on her age and comorbidities. Compliance and cost seem to be prohibitive for this patient. * Strongly recommend education regarding T2DM management as well as referral to local endocrinology office or MTM clinic. * Does have CKD with an eGFR around 15 so would consider discontinuing Metformin upon discharge. * Recommend starting a weekly GLP-1 receptor agonist upon discharge. * This will be based off insurance coverage and patient preference of weekly vs daily injection * Ozempic 0.25 mg SC weekly would be recommended if it is covered * Consider changing basal and prandial insulin if they are covered by patient's insurance.
--- NOTE | 2020-10-27 16:44 | Hospitalist Progress Note ---
Date of Service October 27, 2020 Assessment & Plan (1) Diabetic foot ulcer associated with type 2 diabetes mellitus, with fat layer exposed: Pt was at the wound care clinic and was sent to the ER for worsening diabetic foot ulcer Failed outpatient therapy for Bactrim Diabetic right foot ulcer with fat layer exposed History of recurrent diabetic foot wound MRI of R foot showed wound of the lateral right midfoot. No fluid collection to suggest abscess. No evidence for osteomyelitis within the right ankle or hindfoot. Wound cx grew Corynebacterium Wound care on board IV Cefepime and Dabtomycin were discontinued and was transition to Levaquin IV ID consulted - Pending (2) UTI (urinary tract infection): Urine culture grew Klebsiella with multidrug resistant on sensitivity Was starting on Levaquin intravenous which will cover for diabetic foot infected ulcer as well. (3) Acute kidney injury superimposed on CKD: Suspect due to recent treatment of Bactrim Creatinine on admission 3.6, Baseline creatinine 1.33 weeks ago Creatinine 2.27 today Nephrology on board Avoid NSAIDs and contrast study Future prescription for Bactrim should be avoided for this patient, Bactrim added to her medication allergies/adverse reaction list (4) Insulin-requiring or dependent type II diabetes mellitus: Most recent HBa1c 13 Continue to hold Metformin Pharmacy consult for glycemic management Continue insulin sliding scale (5) Dyslipidemia: On simvastatin (6) PAD (peripheral artery disease): Severe peripheral artery disease required multiple vascular procedures in the past On aspirin statin and Xarelto Right lower extremity arterial Doppler suggestive of possible right femoral artery stent occlusion. -Possible oozing nonhealing of right foot wound. 1. Extensive atherosclerotic plaque within the right lower extremity. Occlusion versus trace flow within the right femoral artery stent. 2. Significantly diminished flow distal to the stent with monophasic, dampened flow within the right popliteal, anterior tibial and posterior tibial arteries. Remainder of vessels occluded. 3. Monophasic flow within the right common femoral artery which raises the possibility of inflow disease. -Had multiple procedures/PTCA done on lower extremity in the past, by interventional cardiology Dr. Martin Cr, Dr. Martin Cr consulted patient input, patient will not benefit for further angioplasty, recommends female with normal popliteal bypass, with vascular surgery, procedure has to be kept on hold till patient's kidney function improves secondary to contrast exposure risk (7) Hypertension: BP appears to be stable - Continue outpatient metoprolol Hold losartan and Lasix due to acute renal failure (8) Chronic diastolic (congestive) heart failure: Holding Lasix and losartan until renal function improves. Volume status has been stable (9) Sleep apnea: Did not tolerate CPAP Nightly does not use any CPAP or BiPAP at night Will check for nocturnal pulse oximetry, patient may benefit with nasal cannula oxygen support at night Code status: Full Code DVT prophylaxis: on Xarelto outpatient Disposition: Expected to be discharged home when medically stable Admission and Anticipated Discharge Date Admission Date: October 21, 2020 Subjective Pt was seen and examined for follow R foot diabetic foot ulcer Sitting at the edge of the bed with no distress playing in her tablet Denies any chest pain, palpitation, dizziness and SOB Review of Systems Review of Systems: All systems reviewed & are unremarkable except as noted in Subjective Physical Exam Physical Exam: General- No acute distress Head- atraumatic Eyes- PERRL, EOMI, ENT- oropharynx clear Neck- supple, no JVD Lungs- clear to auscultation Heart- regular rhythm; no murmur Abdomen- normal bowel sounds, soft, nontender Extremities- no calf tenderness, R dorsal foot erythema and swelling Neuro- alert, oriented x 3; PERRL, EOMI; no facial palsy; no dysarthria Skin- warm & dry, erythema in dorsal area r foot Results & Data Results & Data ([facility]) Vital Signs (Past 12 Hours) Vital Signs Temp Pulse Resp BP Pulse Ox 10/27/20 15:49 36.4 C L 56 L 16 119/66 99 10/27/20 08:32 36.4 C L 66 16 148/57 H 96 (1) Sleep apnea Sleep apnea type: obstructive Qualified Code(s): G47.33 - Obstructive sleep apnea (adult) (pediatric) (2) Diabetic foot ulcer associated with type 2 diabetes mellitus, with fat layer exposed Diabetic foot ulcer location: midfoot Laterality: right Qualified Code(s): E11.621 - Type 2 diabetes mellitus with foot ulcer; L97.412 - Non-pressure chronic ulcer of right heel and midfoot with fat layer exposed (3) Hypertension Hypertension type: essential hypertension Qualified Code(s): I10 - Essential (primary) hypertension
[2020-10-27] MEDS: ONDANSETRON INJ 2 MG/ML 2 ML VIAL IV PRN (21:15)
[2020-10-27] MEDS: ROSUVASTATIN CALCIUM 20 MG TAB PO SCH (21:19)
[2020-10-28] MEDS: HYDROmorphone INJ 0.5 MG/0.5 ML SYR IV PRN ×2 (06:36→18:40)
[2020-10-28] MEDS: ONDANSETRON INJ 2 MG/ML 2 ML VIAL IV PRN ×2 (06:36→18:40)
[2020-10-28 07:47] LABS: Calcium 9.9 mg/dl (8.5-10.1); Creatinine Clr Calc Pharmacy 26.7 ml/min; Est GFR (African American) 22.9 ml/min; Est GFR (Non-African American) 19.8 ml/min; Potassium 4.3 mmol/L (3.5-5.1)
[2020-10-28] MEDS: METOPROLOL TARTRATE 25 MG TAB PO SCH ×2 (09:04→20:42)
[2020-10-28] MEDS: RIVAROXABAN 2.5 MG TAB PO SCH ×2 (09:04→20:42)
[2020-10-28] MEDS: INSULIN ASPART 100 UNITS/ML VIAL SC SCH ×4 (09:08→21:40)
[2020-10-28] MEDS: INSULIN HUMAN NPH SC SCH ×2 (09:08→18:24)
[2020-10-28] MEDS: ASPIRIN 81 MG ECTAB PO SCH (09:15)
[2020-10-28] MEDS: CHOLECALCIFEROL 1,000 UNITS 25 MCG TAB PO SCH (09:16)
[2020-10-28] MEDS: traMADol HCL 50 MG TABLET PO PRN (09:17)
--- NOTE | 2020-10-28 10:20 | Pharmacy Report ---
Pharmacy Glycemic Short Note 2 - Date of Service October 28, 2020 - Glycemic Short BSG Results (Last 24 hours): 10/27/20 10/27/20 10/27/20 11:52 16:42 20:35 Glucose POC Glucose 243 H 115 H 107 H 10/28/20 10/28/20 06:21 08:23 Glucose 111 H POC Glucose 119 H OUTPATIENT ANTIDIABETIC REGIMEN: * Metformin 500mg PO BID * NPH 65-80 units BID - gave 70 units this morning * Regular insulin 70 units TID with meals * HbA1c: 13.1% (10/22/20) ASSESSMENT: 10/28: * BSGs improved after lunchtime yesterday. Patient received a total of 118 units Fasting BSG was also improved this morning at 119 mg/dL after a reduced dose of 25 units NPH last evening. * Will continue on current NovoLog scale. 10/27: * BSGs overall were well controlled yesterday despite the patient refusing AM NovoLog. Fasting BSG was lower again today. Will plan to decrease evening NovoLog again today. Patient does not seem to be requiring much if any NovoLog at bedtime, so I do not think this is the cause. * Lunchtime BSG was elevated today, but will mot react as both NPH and NovoLog doses were administered a little later today. * Patient continues to tolerate a diet. 10/26: * BSGs were well controlled yesterday: 24-317-682-145 mg/dL * Received 90 units of NPH + 59 units of Novolog * Fasting hypoglycemia this AM at 57 mg/dL. Patient was symptomatic and required 15 g of CHO to bring BSG back up to 78 mg/dL. * She refused her AM Novolog so will not adjust NPH dose this morning. Also, her BSGs have still been increasing throughout the daytime. Expecting her lunch BSG to be elevated secondary to uncovered carbs. * Planning to reduce PM NPH dose by ~25% this evening to prevent fasting hypoglycemia tomorrow. 10/24: * BSGs labile yesterday, 68, 132, 175, 73, 58, and 91 mg/dL * Patient received 215 units of insulin yesterday (120 units of NPH and 95 units of prandial/correctional Novolog) * Fasting BSG of 90 mg/dL this morning * Will decrease NPH today given low BSGs throughout the day yesterday * Anticipate loosening Novolog parameters later today PLAN FOR INPATIENT GLYCEMIC CONTROL: * Hold outpatient oral diabetes medications * Basal insulin - decreased * NPH 30 or 35 units SC qam (30 untis this morning) - see EMR for details * NPH 25 or 30 units SC with dinner (25 units last evening) - see EHR for details * Bolus insulin - no change * NovoLog per scale ACHS or Q6hrs while NPO * Goal Range: Low 110 mg/dL - High 140 mg/dL * Correction Factor: 8 mg/dL/unit * Nutritional / Prandial insulin per carb ratio of 1 unit per 3 grams CHO consumed PLAN FOR DISCHARGE: * HbA1c = 13.1% from 10/22/20. This is well above her current goal range of < 7% based on her age and comorbidities. Compliance and cost seem to be prohibitive for this patient. * Strongly recommend education regarding T2DM management as well as referral to local endocrinology office or MTM clinic. * Does have CKD with an eGFR around 15 so would consider discontinuing Metformin upon discharge. * Recommend starting a weekly GLP-1 receptor agonist upon discharge. * This will be based off insurance coverage and patient preference of weekly vs daily injection * Ozempic 0.25 mg SC weekly would be recommended if it is covered * Consider changing basal and prandial insulin if they are covered by patient's insurance.
[2020-10-28] MEDS: CLINDAMYCIN 900 MG in DEXTROSE 5% 50 ML IV SCH ×2 (11:11→18:20)
[2020-10-28] MEDS ORDERED: oxyCODONE HCL IR 5 MG TAB (IMMEDIATE RELEASE) PO PRN (12:26)
[2020-10-28] MEDS: CIPROFLOXACIN 250 MG TAB PO SCH (14:54)
--- NOTE | 2020-10-28 20:39 | Hospitalist Progress Note ---
Date of Service October 28, 2020 Assessment & Plan (1) Diabetic foot ulcer associated with type 2 diabetes mellitus, with fat layer exposed: Pt was at the wound care clinic and was sent to the ER for worsening diabetic foot ulcer Failed outpatient therapy for Bactrim Diabetic right foot ulcer with fat layer exposed History of recurrent diabetic foot wound MRI of R foot showed wound of the lateral right midfoot. No fluid collection to suggest abscess. No evidence for osteomyelitis within the right ankle or hindfoot. Wound cx grew Corynebacterium Wound care on board IV Cefepime and Dabtomycin were discontinued and was transition to Levaquin IV ID consulted Recommended to discontinued levaquin to start on Clindamycin 900mg IV q8h while in patient and Cipro 750mg BID Clindamycin can transition to PO 300mg q8h and continue cipro 750mg BID on discharge for 2 weeks Continue follow up with the wound care clinic (2) UTI (urinary tract infection): Urine culture grew Klebsiella with multidrug resistant on sensitivity IV Cefepime was changed to Levaquin intravenous on 10/23 ID recommended to transition to Cipro 750mg BID for the diabetic foot wound (3) Acute kidney injury superimposed on CKD: Suspect due to recent treatment of Bactrim Creatinine on admission 3.6, Baseline creatinine 1.33 weeks ago Creatinine 2.5 today Nephrology on board Avoid NSAIDs and contrast study Future prescription for Bactrim should be avoided for this patient, Bactrim added to her medication allergies/adverse reaction list Case discussed with nephrology that recommended to check BMP in 1 week (4) Insulin-requiring or dependent type II diabetes mellitus: Most recent HBa1c 13 Continue to hold Metformin Pharmacy consult for glycemic management Continue insulin sliding scale (5) Dyslipidemia: On simvastatin (6) PAD (peripheral artery disease): Severe peripheral artery disease required multiple vascular procedures in the past On aspirin statin and Xarelto Right lower extremity arterial Doppler suggestive of possible right femoral artery stent occlusion. -Possible oozing nonhealing of right foot wound. 1. Extensive atherosclerotic plaque within the right lower extremity. Occlusion versus trace flow within the right femoral artery stent. 2. Significantly diminished flow distal to the stent with monophasic, dampened flow within the right popliteal, anterior tibial and posterior tibial arteries. Remainder of vessels occluded. 3. Monophasic flow within the right common femoral artery which raises the possibility of inflow disease. -Had multiple procedures/PTCA done on lower extremity in the past, by interv entional cardiology Dr. Martin Cr, Dr. Martin Cr consulted patient input, patient will not benefit for further angioplasty, femoral-popliteal bypass, with vascular surgery, procedure has to be kept on hold till patient's kidney function improves secondary to contrast exposure risk Patient will need vascular surgery consult, (7) Hypertension: BP appears to be stable - Continue outpatient metoprolol Hold losartan and Lasix due to acute renal failure (8) Chronic diastolic (congestive) heart failure: Holding Lasix and losartan until renal function improves. Volume status has been stable (9) Sleep apnea: Did not tolerate CPAP Nightly does not use any CPAP or BiPAP at night No significant desaturation noted on nocturnal pulse oximetry Code status: Full Code DVT prophylaxis: on Xarelto outpatient Disposition: Expected to be discharged home tomorrow Admission and Anticipated Discharge Date Admission Date: October 21, 2020 Subjective Pt was seen and examined for follow up of R foot diabetic foot ulcer Sitting in bed with no distress Pt said that she had tenderness in her right foot heel this morning She said that the tramadol did not help with the pain, but the dilaudid help Denies any chest pain, palpitation, dizziness and SOB Review of Systems Review of Systems: All systems reviewed & are unremarkable except as noted in Subjective Physical Exam Physical Exam: General- No acute distress Head- atraumatic Eyes- PERRL, EOMI, ENT- oropharynx clear Neck- supple, no JVD Lungs- clear to auscultation Heart- regular rhythm; no murmur Abdomen- normal bowel sounds, soft, nontender Extremities- no calf tenderness, R dorsal foot erythema and swelling Neuro- alert, oriented x 3; PERRL, EOMI; no facial palsy; no dysarthria Skin- warm & dry, erythema in dorsal area r foot Results & Data Results & Data ([facility]) Vital Signs (Past 12 Hours) Vital Signs Temp Pulse Pulse Resp BP Pulse Ox 10/28/20 20:37 63 151/67 H 10/28/20 16:18 36.5 C 61 16 126/66 100 10/28/20 09:03 71 128/74 (1) Sleep apnea Sleep apnea type: obstructive Qualified Code(s): G47.33 - Obstructive sleep a pnea (adult) (pediatric) (2) Diabetic foot ulcer associated with type 2 diabetes mellitus, with fat layer exposed Diabetic foot ulcer location: midfoot Laterality: right Qualified Code(s): E11.621 - Type 2 diabetes mellitus with foot ulcer; L97.412 - Non-pressure chronic ulcer of right heel and midfoot with fat layer exposed (3) Hypertension Hypertension type: essential hypertension Qualified Code(s): I10 - Essential (primary) hypertension
[2020-10-28] MEDS: ROSUVASTATIN CALCIUM 20 MG TAB PO SCH (20:42)
[2020-10-29] MEDS: traMADol HCL 50 MG TABLET PO PRN ×2 (03:59→12:44)
[2020-10-29] MEDS: CLINDAMYCIN 900 MG in DEXTROSE 5% 50 ML IV SCH ×2 (04:10→10:50)
[2020-10-29 07:11] LABS: BUN Creatinine Ratio 17.6 (10-20); Calcium 8.9 mg/dl (8.5-10.1); Creatinine Clr Calc Pharmacy 26.3 ml/min; Est GFR (African American) 22.5 ml/min; Est GFR (Non-African American) 19.4 ml/min
[2020-10-29] MEDS ORDERED: INSULIN ASPART 100 UNITS/ML VIAL SC SCH ×2 (08:00→11:30)
[2020-10-29] MEDS: METOPROLOL TARTRATE 25 MG TAB PO SCH (08:13)
[2020-10-29] MEDS: CHOLECALCIFEROL 1,000 UNITS 25 MCG TAB PO SCH (08:13)
[2020-10-29] MEDS: RIVAROXABAN 2.5 MG TAB PO SCH (08:13)
[2020-10-29] MEDS: ASPIRIN 81 MG ECTAB PO SCH (08:13)
[2020-10-29] MEDS: HYDROmorphone INJ 0.5 MG/0.5 ML SYR IV PRN ×2 (08:13→15:24)
[2020-10-29] MEDS: INSULIN HUMAN NPH SC SCH (09:12)
--- NOTE | 2020-10-29 13:22 | Pharmacy Report ---
Pharmacy Glycemic Short Note 2 - Date of Service October 29, 2020 - Glycemic Short BSG Results (Last 24 hours): 10/28/20 10/28/20 10/29/20 17:27 20:23 06:34 Glucose 84 POC Glucose 102 H 72 10/29/20 10/29/20 08:23 12:34 Glucose POC Glucose 93 192 H OUTPATIENT ANTIDIABETIC REGIMEN: * Metformin 500mg PO BID * NPH 65-80 units BID - gave 70 units this morning * Regular insulin 70 units TID with meals * HbA1c: 13.1% (10/22/20) ASSESSMENT: 10/29: * Pt received total of 125 units of insulin yesterday: 55 units basal NPH and 70 units bolus. * Fasting BSG = 84 mg/dl. Reduced basal NPH BID dosing * BSG at dinner and HS trended down yesterday. Novolog parameters adjusted to give higher dose in the AM then lower doses with meals and HS. 10/28: * BSGs improved after lunchtime yesterday. Patient received a total of 118 units Fasting BSG was also improved this morning at 119 mg/dL after a reduced dose of 25 units NPH last evening. * Will continue on current NovoLog scale. 10/27: * BSGs overall were well controlled yesterday despite the patient refusing AM NovoLog. Fasting BSG was lower again today. Will plan to decrease evening NovoLog again today. Patient does not seem to be requiring much if any NovoLog at bedtime, so I do not think this is the cause. * Lunchtime BSG was elevated today, but will mot react as both NPH and NovoLog doses were administered a little later today. * Patient continues to tolerate a diet. 10/26: * BSGs were well controlled yesterday: [id number] mg/dL * Received 90 units of NPH + 59 units of Novolog * Fasting hypoglycemia this AM at 57 mg/dL. Patient was symptomatic and required 15 g of CHO to bring BSG back up to 78 mg/dL. * She refused her AM Novolog so will not adjust NPH dose this morning. Also, her BSGs have still been increasing throughout the daytime. Expecting her lunch BSG to be elevated secondary to uncovered carbs. * Planning to reduce PM NPH dose by ~25% this evening to prevent fasting hypoglycemia tomorrow. 10/24: * BSGs labile yesterday, 68, 132, 175, 73, 58, and 91 mg/dL * Patient received 215 units of insulin yesterday (120 units of NPH and 95 units of prandial/correctional Novolog) * Fasting BSG of 90 mg/dL this morning * Will decrease NPH today given low BSGs throughout the day yesterday * Anticipate loosening Novolog parameters later today PLAN FOR INPATIENT GLYCEMIC CONTROL: * Hold outpatient oral diabetes medications * Basal insulin - decreased * NPH 25 or 30 units SC qam (25 units this morning) - see EMR for details * NPH 20 or 25 units SC with dinner (25 units last evening) - see EHR for details * Bolus insulin - tightened CR with breakfast, loosened CF/CR for lunch, dinner, HS * NovoLog per scale ACHS or Q6hrs while NPO * Goal Range: Low 110 mg/dL - High 140 mg/dL * Correction Factor: 8 mg/dL/unit w/ breakfast and 10 mg/dl/unit w/ lunch, dinner, HS * Nutritional / Prandial insulin per carb ratio of 1 unit per 3 grams CHO consumed w/ breakfast and 1:5 gms CHO w/ lunch, dinner, HS. PLAN FOR DISCHARGE: * HbA1c = 13.1% from 10/22/20. This is well above her current goal range of < 7% based on her age and comorbidities. Compliance and cost seem to be prohibitive for this patient. * Strongly recommend education regarding T2DM management as well as referral to local endocrinology office or [facility] clinic. * Does have CKD with an eGFR around 15 so would consider discontinuing Metformin upon discharge. * Recommend starting a weekly GLP-1 receptor agonist upon discharge. * This will be based off insurance coverage and patient preference of weekly vs daily injection * Ozempic 0.25 mg SC weekly would be recommended if it is covered * Consider changing basal and prandial insulin if they are covered by patient's insurance.
[2020-10-29] MEDS: CIPROFLOXACIN 250 MG TAB PO SCH (13:50)
--- NOTE | 2020-10-29 14:12 | Hospitalist Progress Note ---
Date of Service October 29, 2020 Assessment & Plan (1) Diabetic foot ulcer associated with type 2 diabetes mellitus, with fat layer exposed: Pt was at the wound care clinic and was sent to the ER for worsening diabetic foot ulcer Failed outpatient therapy for Bactrim Diabetic right foot ulcer with fat layer exposed History of recurrent diabetic foot wound MRI of R foot showed wound of the lateral right midfoot. No fluid collection to suggest abscess. No evidence for osteomyelitis within the right ankle or hindfoot. Wound cx grew Corynebacterium Wound care on board IV Cefepime and Dabtomycin were discontinued and was transition to Levaquin IV ID consulted Recommended to discontinued levaquin to start on Clindamycin 900mg IV q8h while in patient and Cipro 750mg BID Clindamycin can transition to PO 300mg q8h and continue cipro 750mg BID on discharge for 2 weeks Continue follow up with the wound care clinic (2) UTI (urinary tract infection): Urine culture grew Klebsiella with multidrug resistant on sensitivity IV Cefepime was changed to Levaquin intravenous on 10/23 ID recommended to transition to Cipro 750mg BID for the diabetic foot wound (3) Acute kidney injury superimposed on CKD: Suspect due to recent treatment of Bactrim Creatinine on admission 3.6, Baseline creatinine 1.33 weeks ago Creatinine 2.5 today Nephrology on board Avoid NSAIDs and contrast study Future prescription for Bactrim should be avoided for this patient, Bactrim added to her medication allergies/adverse reaction list Case discussed with nephrology that recommended to check BMP in 1 week (4) Insulin-requiring or dependent type II diabetes mellitus: Most recent HBa1c 13 Continue to hold Metformin Pharmacy consult for glycemic management Continue insulin sliding scale (5) Dyslipidemia: On simvastatin (6) PAD (peripheral artery disease): Severe peripheral artery disease required multiple vascular procedures in the past On aspirin statin and Xarelto Right lower extremity arterial Doppler suggestive of possible right femoral artery stent occlusion. -Possible oozing nonhealing of right foot wound. 1. Extensive atherosclerotic plaque within the right lower extremity. Occlusion versus trace flow within the right femoral artery stent. 2. Significantly diminished flow distal to the stent with monophasic, dampened flow within the right popliteal, anterior tibial and posterior tibial arteries. Remainder of vessels occluded. 3. Monophasic flow within the right common femoral artery which raises the possibility of inflow disease. -Had multiple procedures/PTCA done on lower extremity in the past, by interv entional cardiology Dr. Martin Cr, Dr. Martin Cr consulted patient input, patient will not benefit for further angioplasty, femoral-popliteal bypass, with vascular surgery, procedure has to be kept on hold till patient's kidney function improves secondary to contrast exposure risk Patient will need vascular surgery consult, (7) Hypertension: BP appears to be stable - Continue outpatient metoprolol Hold losartan and Lasix due to acute renal failure (8) Chronic diastolic (congestive) heart failure: Holding Lasix and losartan until renal function improves. Volume status has been stable (9) Sleep apnea: Did not tolerate CPAP Nightly does not use any CPAP or BiPAP at night No significant desaturation noted on nocturnal pulse oximetry Code status: Full Code DVT prophylaxis: on Xarelto outpatient Disposition: Expected to be discharged home tomorrow Admission and Anticipated Discharge Date Admission Date: October 21, 2020 Subjective Pt was seen and examined for follow up of R foot diabetic foot ulcer Sitting in bed with no distress Pt said that she had tenderness in her right foot heel this morning She said that the tramadol did not help with the pain, but the dilaudid help Denies any chest pain, palpitation, dizziness and SOB Physical Exam Physical Exam: General- No acute distress Head- atraumatic Eyes- PERRL, EOMI, ENT- oropharynx clear Neck- supple, no JVD Lungs- clear to auscultation Heart- regular rhythm; no murmur Abdomen- normal bowel sounds, soft, nontender Extremities- no calf tenderness, R dorsal foot erythema and swelling Neuro- alert, oriented x 3; PERRL, EOMI; no facial palsy; no dysarthria Skin- warm & dry, erythema in dorsal area r foot Results & Data Results & Data ([facility]) Vital Signs (Past 12 Hours) Vital Signs Temp Pulse Resp BP Pulse Ox 10/29/20 07:42 37.2 C 66 16 105/66 98 (1) Diabetic foot ulcer associated with type 2 diabetes mellitus, with fat layer exposed Diabetic foot ulcer location: midfoot Laterality: right Qualified Code(s): E11.621 - Type 2 diabetes mellitus with foot ulcer; L97.412 - Non-pressure chronic ulcer of right heel and midfoot with fat layer exposed (2) Hypertension Hypertension type: essential hypertension Qualified Code(s): I10 - Essential (primary) hypertension (3) Sleep apnea Sleep apnea type: obstructive Qualified Code(s): G47.33 - Obstructive sleep apnea (adult) (pediatric)
--- NOTE | 2020-10-29 14:19 | Hospitalist Progress Note ---
Date of Service October 29, 2020 Assessment & Plan (1) Diabetic foot ulcer associated with type 2 diabetes mellitus, with fat layer exposed: Pt was at the wound care clinic and was sent to the ER for worsening diabetic foot ulcer Failed outpatient therapy for Bactrim Diabetic right foot ulcer with fat layer exposed History of recurrent diabetic foot wound MRI of R foot showed wound of the lateral right midfoot. No fluid collection to suggest abscess. No evidence for osteomyelitis within the right ankle or hindfoot. Wound cx grew Corynebacterium Wound care on board IV Cefepime and Dabtomycin were discontinued and was transition to Levaquin IV ID consulted Recommended to discontinued levaquin to start on Clindamycin 900mg IV q8h while in patient and Cipro 750mg BID Clindamycin can transition to PO 300mg q8h and continue cipro 750mg BID on discharge for 2 weeks Continue follow up with the wound care clinic (2) UTI (urinary tract infection): Urine culture grew Klebsiella with multidrug resistant on sensitivity IV Cefepime was changed to Levaquin intravenous on 10/23 ID recommended to transition to Cipro 750mg BID for the diabetic foot wound (3) Acute kidney injury superimposed on CKD: Suspect due to recent treatment of Bactrim Creatinine on admission 3.6, Baseline creatinine 1.33 weeks ago Creatinine 2.5 today Nephrology on board Avoid NSAIDs and contrast study Future prescription for Bactrim should be avoided for this patient, Bactrim added to her medication allergies/adverse reaction list Case discussed with nephrology that recommended to check BMP weekly (4) Insulin-requiring or dependent type II diabetes mellitus: Most recent HBa1c 13 Continue to hold Metformin , d/c on discharge Pharmacy consult for glycemic management Case discussed with pharmacy that recommended to resume her previous insulin dose Recommend starting a weekly GLP-1 receptor agonist upon discharge ( will defer to PCP) This will be based off insurance coverage and patient preference of weekly vs daily injection Ozempic 0.25 mg SC weekly would be recommended if it is covered (5) Dyslipidemia: On simvastatin (6) PAD (peripheral artery disease): Severe peripheral artery disease required multiple vascular procedures in the past On aspirin statin and Xarelto Right lower extremity arterial Doppler suggestive of possible right femoral artery stent occlusion. -Possible oozing nonhealing of right foot wound. 1. Extensive atherosclerotic plaque within the right lower extremity. Occlusion versus trace flow within the right femoral artery stent. 2. Significantly diminished flow distal to the stent with monophasic, dampened flow within the right popliteal, anterior tibial and posterior tibial arteries. Remainder of vessels occluded. 3. Monophasic flow within the right common femoral artery which raises the possibility of inflow disease. -Had multiple procedures/PTCA done on lower extremity in the past, by interventional cardiology Dr. Martin Cr, Dr. Martin Cr consulted patient input, patient will not benefit for further angioplasty, femoral-popliteal bypass, with vascular surgery, procedure has to be kept on hold till patient's kidney function improves secondary to contrast exposure risk Patient will need vascular surgery consult, (7) Hypertension: BP appears to be stable - Continue outpatient metoprolol Hold losartan and Lasix due to acute renal failure (8) Chronic diastolic (congestive) heart failure: Holding Lasix and losartan until renal function improves. Volume status has been stable (9) Sleep apnea: Did not tolerate CPAP Nightly does not use any CPAP or BiPAP at night No significant desaturation noted on nocturnal pulse oximetry Code status: Full Code DVT prophylaxis: on Xarelto outpatient Disposition: Expected to be discharged home today Admission and Anticipated Discharge Date Admission Date: October 21, 2020 Subjective Pt was seen and examined for follow up of R foot diabetic foot ulcer Sitting in bed with no distress Pt said that she got tramadol this morning for the pain Denies any chest pain, palpitation, dizziness and SOB Review of Systems Review of Systems: All systems reviewed & are unremarkable except as noted in Subjective Physical Exam Physical Exam: General- No acute distress Head- atraumatic Eyes- PERRL, EOMI, ENT- oropharynx clear Neck- supple, no JVD Lungs- clear to auscultation Heart- regular rhythm; no murmur Abdomen- normal bowel sounds, soft, nontender Extremities- no calf tenderness, R dorsal foot erythema and swelling improves Neuro- alert, oriented x 3; PERRL, EOMI; no facial palsy; no dysarthria Skin- warm & dry, erythema in dorsal area r foot Results & Data Results & Data ([facility]) Vital Signs (Past 12 Hours) Vital Signs Temp Pulse Resp BP Pulse Ox 10/29/20 07:42 37.2 C 66 16 105/66 98 (1) Sleep apnea Sleep apnea type: obstructive Qualified Code(s): G47.33 - Obstructive sleep apnea (adult) (pediatric) (2) Diabetic foot ulcer associated with type 2 diabetes mellitus, with fat layer exposed Diabetic foot ulcer location: midfoot Laterality: right Qualified Code(s): E11.621 - Type 2 diabetes mellitus with foot ulcer; L97.412 - Non-pressure chronic ulcer of right heel and midfoot with fat layer exposed (3) Hypertension Hypertension type: essential hypertension Qualified Code(s): I10 - Essential (primary) hypertension
--- NOTE | 2020-10-30 09:44 | Discharge Summary ---
Date of Service October 29, 2020 Admission HPI Per Admitting Provider This is a 60 y/o female with a PMH of insulin-dependent DM, PAD, CKD3, ALLY, diabetic polyneuropathy, Charcot foot, chronic diastolic CHF, HTN, and dyslipidemia who was referred to the ED from wound care clinic today due to worsening infection of a right diabetic foot ulcer. Pt reports ongoing issues with bilateral LE diabetic ulcers over the past 1-2 years. She has undergone multiple vascular procedures by Dr. Cr during this same time for known PAD. The ulcer on her right foot had healed until 3-4 weeks ago when it reopened, likely to a new pair of diabetic shoes that she was "breaking in" per her recollection. She has been following with wound care the past few weeks. Two weeks ago she was seen in the ED due to concern for infection and was placed on Bactrim, which she finished two days ago. She does not feel like this improved her symptoms at all, but she has noted worsening of the pain, redness, and swelling since she finished it. She has been taking Tylenol and Tramadol for pain at home with only partial relief. Pain radiates from her right foot to her right lateral ankle and is severe enough that it keeps her awake/wakes her at night. She reports not sleeping well for past several days. She does have known neuropathy in both feet and hands from the diabetes (more severe in feet, worse in right LE) but current pain is different than the neuropathy. She has developed chills (past 24-48 hrs) but no documented fevers. She notes malaise and fatigue. She sporadically checks her sugars at home, but she has noted elevated sugars over 400 in the past week, which she reports is unusual for her recently (typically below 250). Of note, she also reports her urine started to get dark in color yesterday but has been dark, almost brown, in color today. It is foamy at times. She denies dysuria, increased frequency, or hematuria. She reports typically drinking 6-8 bottles of water per day (other than today). She denies taking any NSAIDs or medications other than those prescribed or listed in this HPI. Admission Exam Per Admitting Provider Constitutional: WN, vitals as above + obese; no acute distress Eyes: + anicteric sclerae; no conjunctival abnormality Neck: trachea midline Respiratory: no respiratory distress and no labored breathing Auscultation: lungs clear to auscultation bilaterally; no rales, no rhonchi and no wheezes Cardiovascular: regular rate and regular rhythm Heart Sounds: no gallop, no murmur and no cardiac rub Vessels: radial pulses present; no carotid bruit Extremities: + pedal edema Gastrointestinal: Inspection/Auscultation: normal bowel sounds; abdomen not distended Percussion/Palpation: abdomen soft; abdomen nontender Head/Neck: normocephalic, head atraumatic and neck supple Skin: Right lateral foot wound measures 2.5 x 5.1 x 0.2 cm in size. Wound base is covered in slough, fibrin, and eschar. Periwound is erythematous and macerated. No drainage at present. Erythema extends to lateral ankle. Area is exquisitely tender to touch. Two smaller wounds noted on right foot as well. Neurologic: moves all extremities Diminished sensation to light touch bilateral LE - RLE to knee, LLE to mid-rosenberg/calf Psychiatric: A+Ox3, euthymic affect Principal Diagnosis Diabetic foot ulcer associated with type 2 diabetes mellitus UTI (urinary tract infection): Acute kidney injury superimposed on CKD: Insulin-requiring or dependent type II diabetes mellitus: Dyslipidemia: Discharge Exam General- No acute distress Head- atraumatic Eyes- PERRL, EOMI, ENT- oropharynx clear Neck- supple, no JVD Lungs- clear to auscultation Heart- regular rhythm; no murmur Abdomen- normal bowel sounds, soft, nontender Extremities- no calf tenderness, R dorsal foot erythema and swelling improves Neuro- alert, oriented x 3; PERRL, EOMI; no facial palsy; no dysarthria Skin- warm & dry, erythema in dorsal area r foot Discharge Data Allergies Allergy/AdvReac Type Severity Reaction Status Date / Time amoxicillin Allergy Intermediate HIVES & N/V Verified 10/21/20 16:08 clavulanic acid Allergy Intermediate HIVES & N/V Verified 10/21/20 16:08 sulfamethoxazole AdvReac Severe renal Verified 10/24/20 12:45 [From Bactrim] failure trimethoprim [From Bactrim] AdvReac Severe renal Verified 10/24/20 12:45 failure lisinopril AdvReac Intermediate NAUSEA/VOMI Verified 10/21/20 16:08 TING Consultations 10/21/20 16:21 ED Decision to Admit Stat 10/21/20 22:25 Consult Nephrology Routine 10/23/20 11:51 Consult Vascular Surgery Routine 10/26/20 09:29 Consult Infectious Diseases Routine Ordered Studies 10/21/20 15:16 US venous doppler LE RT Stat 10/21/20 16:20 CT abd pelvis wo con Stat 10/21/20 17:15 US arterial duplex LE RT Stat 10/23/20 10:21 MR ankle RT wo con Routine MR ankle RT wo con CLINICAL HISTORY: Right ankle wound. Evaluate for osteomyelitis. COMPARISON STUDY: Right foot radiographs October 21, 2020. TECHNIQUE: Utilizing a 1.5 Elizabeth magnet and dedicated coil, multiplanar, multi echo imaging of the right ankle/hindfoot was performed without intravenous contrast. FINDINGS: Skin markers were placed at site of wound within the lateral right midfoot. Note is made of subcutaneous increased T2 signal. This may reflect cellulitis. There is dorsal subcutaneous edema of the right foot. No fluid collection is identified to suggest an abscess on this unenhanced examination. Note is made of tibiotalar and subtalar joint osteoarthritis. Pes planus deformity is noted. Note is made of extensive osteophytosis and bony irregularity of the right midfoot as shown on radiographs. This represents neuropathic arthropathy. Subchondral signal abnormality within the midfoot is due to to arthropathy. There is no marrow edema to suggest osteomyelitis within the right ankle or right hindfoot. The distal Achilles is intact. Plantar calcaneal spurring is noted. There is no evidence for acute fracture within the right ankle or hindfoot. IMPRESSION: 1. Wound of the lateral right midfoot. No fluid collection to suggest abscess. No evidence for osteomyelitis within the right ankle or hindfoot. 2. Findings suggestive of neuropathic arthropathy of the right midfoot as shown on radiographs. ACT 112: Negative or not required by law. Electronically signed by: Azael Morton M.D. 10/23/2020 4:18 PM Dictated: 10/23/20 1556Transcribed: 10/23/20 1558 RIGHT LOWER EXTREMITY ARTERIAL DOPPLER ULTRASOUND CLINICAL HISTORY: hx PAD, right foot pain, foot ulcer COMPARISON STUDY: No previous studies for comparison. TECHNIQUE: Grayscale, color and duplex Doppler sonography of the arterial system of the right lower extremity was performed. FINDINGS: Extensive atherosclerotic plaque within the right lower extremity is noted. There is monophasic flow within the right common femoral artery which raises the possibility of inflow disease. Note is made of a probable stent within the right common femoral and superficial femoral arteries. At most, there is minimal flow within the stent. Flow distal to the stent is markedly. There is dampened, monophasic flow within the right popliteal, anterior tibial and posterior tibial arteries the right peroneal artery and dorsalis pedis are likely occluded. IMPRESSION: 1. Extensive atherosclerotic plaque within the right lower extremity. Occlusion versus trace flow within the right femoral artery stent. 2. Significantly diminished flow distal to the stent with monophasic, dampened flow within the right popliteal, anterior tibial and posterior tibial arteries. Remainder of vessels occluded. 3. Monophasic flow within the right common femoral artery which raises the possibility of inflow disease. ACT 112: Negative or not required by law. Electronically signed by: Azael Morton M.D. 10/21/2020 6:15 PM Dictated: 10/21/20 1808Transcribed: 10/21/201807 CT OF THE ABDOMEN AND PELVIS WITHOUT CONTRAST CLINICAL HISTORY: Acute renal failure. COMPARISON STUDY: Abdominal series June 26, 2019. TECHNIQUE: Axial images of the abdomen and pelvis were obtained without IV contrast. Images were reviewed in the axial, sagittal, and coronal planes. Automated exposure control was utilized for the study. A dose lowering technique was utilized adhering to the principles of ALARA. FINDINGS: Mild groundglass opacities are noted within the lung bases. No pneumatosis, free air or portal venous gas is present. No renal, ureteral or bladder calculi are present. There is mild bilateral perinephric infiltration. There is no hydronephrosis. Evaluation of the remainder of the abdomen and pelvis is suboptimal on this unenhanced exam. There is no significant biliary ductal dilatation status post cholecystectomy. Mild hepatosplenomegaly is noted. There is no evidence for a bowel obstruction. There is no lymphadenopathy. There is no ascites. No acute fracture or suspicious lesion is identified within the visualized skeletal structures. Moderate vascular calcification is noted. IMPRESSION: 1. No urinary calculi or hydronephrosis. 2. Mild hepatosplenomegaly. 3. No bowel obstruction. ACT 112: Negative or not required by law. Electronically signed by: Azael Morton M.D. 10/21/2020 5:35 PM Dictated: 10/21/20 1728Transcribed: 10/21/20 1728 RIGHT LOWER EXTREMITY VENOUS DOPPLER CLINICAL HISTORY: Pt c/o foot pain COMPARISON STUDY: Bilateral lower extremity venous Doppler ultrasound May 02, 2020. TECHNIQUE: Sonography of the deep venous system of the right lower extremity was performed. Compression and augmentation were evaluated. FINDINGS: The right common femoral, superficial femoral and popliteal veins were compressible. Augmentation was normal. Flow was shown within the deep calf vessels. IMPRESSION: No evidence of deep venous thrombus within the right lower extremity. ACT 112: Negative or not required by law. Electronically signed by: Azael Morton M.D. 10/21/2020 6:08 PM Dictated: 10/21/20 1808Transcribed: 10/21/20 180 XR foot RT min 3V routine CLINICAL HISTORY: Right lateral foot wound. COMPARISON: 10/07/2020 DISCUSSION: There is flattening plantar arch. There are deformities involving the bases of the second and third metatarsals. There is extensive tarsal bone fragmentation. There is calcaneal spurring. The findings are indicative of a neuropathic joint. There is no gas within the soft tissues. Probable lateral soft tissue ulcer. IMPRESSION: 1. 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 2. There is no gas within the soft tissues. 2. There is a suspected lateral soft tissue ulcer. ACT 112: Negative or not required by law. Electronically signed by: Sav Hdz M.D. 10/21/2020 3:36 PM Dictated: 10/21/20 1533Transcribed: 10/21/20 1533 Diabetes Follow up Diabetes Follow-up Needed for HgbA1c >9% Hospital Course (1) Diabetic foot ulcer associated with type 2 diabetes mellitus, with fat layer exposed: Pt was at the wound care clinic and was sent to the ER for worsening diabetic foot ulcer Failed outpatient therapy for Bactrim Diabetic right foot ulcer with fat layer exposed History of recurrent diabetic foot wound MRI of R foot showed wound of the lateral right midfoot. No fluid collection to suggest abscess. No evidence for osteomyelitis within the right ankle or hindfoot. Wound cx grew Corynebacterium Wound care on board IV Cefepime and Dabtomycin were discontinued and was transition to Levaquin IV ID consulted Recommended to discontinued levaquin to start on Clindamycin 900mg IV q8h while in patient and Cipro 750mg BID Clindamycin can transition to PO 300mg q8h and continue cipro 750mg BID on discharge for 2 weeks Continue follow up with the wound care clinic (2) UTI (urinary tract infection): Urine culture grew Klebsiella with multidrug resistant on sensitivity IV Cefepime was changed to Levaquin intravenous on 10/23 ID recommended to transition to Cipro 750mg BID for the diabetic foot wound (3) Acute kidney injury superimposed on CKD: Suspect due to recent treatment of Bactrim Creatinine on admission 3.6, Baseline creatinine 1.33 weeks ago Creatinine 2.5 today Nephrology on board Avoid NSAIDs and contrast study Future prescription for Bactrim should be avoided for this patient, Bactrim added to her medication allergies/adverse reaction list Case discussed with nephrology that recommended to check BMP weekly (4) Insulin-requiring or dependent type II diabetes mellitus: Most recent HBa1c 13 Continue to hold Metformin , d/c on discharge Pharmacy consult for glycemic management Case discussed with pharmacy that recommended to resume her previous insulin dose Recommend starting a weekly GLP-1 receptor agonist upon discharge ( will defer to PCP) This will be based off insurance coverage and patient preference of weekly vs daily injection Ozempic 0.25 mg SC weekly would be recommended if it is covered (5) Dyslipidemia: On simvastatin (6) PAD (peripheral artery disease): Severe peripheral artery disease required multiple vascular procedures in the past On aspirin statin and Xarelto Right lower extremity arterial Doppler suggestive of possible right femoral artery stent occlusion. -Possible oozing nonhealing of right foot wound. 1. Extensive atherosclerotic plaque within the right lower extremity. Occlusion versus trace flow within the right femoral artery stent. 2. Significantly diminished flow distal to the stent with monophasic, dampened flow within the right popliteal, anterior tibial and posterior tibial arteries. Remainder of vessels occluded. 3. Monophasic flow within the right common femoral artery which raises the possibility of inflow disease. -Had multiple procedures/PTCA done on lower extremity in the past, by interventional cardiology Dr. Martin Cr, Dr. Martin Cr consulted patient input, patient will not benefit for further angioplasty, femoral-popliteal bypass, with vascular surgery, procedure has to be kept on hold till patient's kidney function improves secondary to contrast exposure risk Patient will need vascular surgery consult, (7) Hypertension: BP appears to be stable - Continue outpatient metoprolol Hold losartan and Lasix due to acute renal failure (8) Chronic diastolic (congestive) heart failure: Holding Lasix and losartan until renal function improves. Volume status has been stable (9) Sleep apnea: Did not tolerate CPAP Nightly does not use any CPAP or BiPAP at night No significant desaturation noted on nocturnal pulse oximetry Code status: Full Code DVT prophylaxis: on Xarelto outpatient Disposition: Expected to be discharged home today Total Time Total Time Spent Total Time Spent (In Minutes): 35 minutes Total Time Includes: Examination of the Patient, Discharge Planning, Medication Reconciliation, Communication With Other Providers and Other Discharge Plan Discharge Items Patient Disposition: Home - Self-Care Reason For Visit: DIABETIC FOOT ULCER, ELROY Discharge Diagnosis: Diabetic foot ulcer associated with type 2 diabetes mellitus UTI (urinary tract infection): Acute kidney injury superimposed on CKD: Insulin-requiring or dependent type II diabetes mellitus: Dyslipidemia: Activity: Resume your previous activity Non-emergency contact: Primary Care Provider Call non-emergency contact if: you have any medication questions Follow-up/Referrals: Kaila Freitas MD [Primary Care Provider] - (Date & Time 11/01/2020 12:00 PM Provider Kaila Freitas MD Department [facility] ) Diet: Carb Consistent or DM2 Addtl Attending Provider Instructions: Follow up with your primary care provider Dr. Freitas on 11/01/2020 at 12:00 PM at the [facility] Follow up with Nephrology Dr. Simmons (Please call for the appointment) Follow up with intervention cardiology Dr. Martin Cr to evaluate for vascular surgery for the severe peripheral artery disease once your kidney function back to baseline Continue follow up with the wound care clinic Check BMP weekly (x4 weeks ) to monitor your kidney function ( your provider or nephrology will order it) Continue monitor your blood sugar and bring your blood sugar log at your next appointment with your provider Complete the course of the antibiotic with clindamycin and cipro Metformin discontinue due to kidney failure Continue to hold Lasix and Losartan due to kidney failure (elevate creatinine). Your provider or the kidney specialist will advise you when to resume them Fall precaution Do not drive or operate any machine after taking the tramadol Please hold next dose of tramadol if you become lethargy or drowsy Pending Studies at Discharge: No Stand-Alone Forms: My [employer], Smoking Cessation Medications and DC Order Prescriptions: New ciprofloxacin HCl 250 mg Tablet 750 mg PO Q24H 14 Days Qty: 42 RF: 0 clindamycin HCl 300 mg capsule 300 mg PO QID 14 Days Qty: 56 RF: 0 tramadol 50 mg tablet 50 mg PO Q8H PRN (Reason: Pain) Qty: 15 RF: 0 Continued Xarelto 2.5 mg tablet 2.5 mg PO BID Qty: 180 RF: 3 Novolin R Regular U-100 Insuln 100 unit/mL Solution See Rx Instructions .ROUTE .COMPLEX RF: 0 rosuvastatin 40 mg Tablet 40 mg PO HS RF: 0 polyethylene glycol 3350 [Miralax] 17 gram Powder In Packet 17 g PO DAILY PRN (Reason: Constipation) RF: 0 metoprolol tartrate 25 mg tablet 25 mg PO BID RF: 0 cholecalciferol (vitamin D3) [Vitamin D3] 5,000 unit Tablet 5,000 units PO QAM RF: 0 aspirin 81 mg Tablet,Delayed Release (Dr/Ec) 81 mg PO QAM RF: 0 magnesium oxide 500 mg Tablet 500 mg PO QAM RF: 0 Novolin N Flexpen 100 unit/mL (3 mL) Insulin Pen See Rx Instructions .ROUTE .COMPLEX RF: 0 Santyl 250 unit/gram ointment 1 applic topical DAILY PRN (Reason: Other) RF: 0 acetaminophen 650 mg Tablet Extended Release 650 mg PO Q8H PRN (Reason: Pain) RF: 0 Discontinued tramadol 50 mg tablet 50 mg PO DAILY PRN (Reason: Pain) RF: 0 losartan 50 mg tablet 50 mg PO QAM RF: 0 furosemide 40 mg tablet 40 mg PO 4XWK RF: 0 furosemide 40 mg tablet 80 mg PO 3XWK RF: 0 metformin 500 mg tablet 500 mg PO BID RF: 0 Discharge Orders: Discharge Order (Routine); Ordered 10/29/20 Ordered By: Therese Soria/Other Patient Handouts: Tips for Using Less Salt, Managing Type 2 Diabetes, Managing Diabetes: The A1C Test, Eating Heart-Healthy Foods Admission Data Admit Date/Time: 10/21/20 17:12 Attending Provider: Therese Pemberton Admit Provider: Tata Sewell Primary Care Provider: Kaila Freitas Other Providers: Joaquin Kilpatrick ; Nate Amato ; Simeon Cr ; Tata Sewell ; Mikal Maza ; Migel Carey ; Russ Martinez I. ; Terrell Ramirez II ; Sussy Castelan ; Surinder Ybarra Other Interventions: Discharge Summary Assessment (RN) Last Done: 10/29/20 15:46
== END 2020-10-29 16:57 | disposition home or self-care (01) ==
LOC: ED 14:19 → SUATTDRO 17:12 → 3N 17:12

== ENCOUNTER 2020-11-11 16:47 | Inpatient (IN) ==
--- NOTE | 2020-11-11 17:12 | Emergency Department Note ---
Impression & Plan Cellulitis, Anemia, Elevated blood sugar, Ulcerated, foot ED Provider Note NAME: WENDI DAMON AGE: 60 SEX: F : 1960 ARRIVES VIA: Walk-In INFORMANT: Patient ED PROVIDER(S): See Duarte DO CHIEF COMPLAINT: Worsening wound infections HPI: Patient is a 60-year-old female referred in by wound care clinic [facility]yl[facility] for worsening infections of her right lower extremity. She was seen and evaluated here and discharged 2 weeks ago. She notes that the infections have been worsening and becoming more red and deteriorating per her note. Patient notes that she was sent over here for further treatment. Patient denies any fevers, cough runny nose chest pain shortness of breath nausea vomiting or diarrhea. No other exacerbating or remitting factors. ROS: See above HPI for pertinent positives & negatives. A total of 10 systems reviewed and were otherwise negative. PAST MEDICAL HISTORY:See Below PAST SURGICAL HISTORY:See Below FAMILY HISTORY:See Below SOCIAL HISTORY:See Below HOME MEDICATIONS:See Below ALLERGIES:See Below VITALS:See Below PHYSICAL EXAMINATION: GENERAL: Sitting up in bed, alert, morbidly obese, chronically ill-appearing EYE EXAM: normal conjunctiva. PERRL and EOM's grossly intact. OROPHARYNX: no exudate, no erythema, lips, buccal mucosa, and tongue normal and mucous membranes are moist NECK: supple, no nuchal rigidity, no adenopathy, non-tender LUNGS: Clear to auscultation. Normal chest wall mechanics HEART: no murmurs, S1 normal and S2 normal ABDOMEN: abdomen soft, non-tender, normo-active bowel sounds, no masses, no rebound or guarding. UPPER EXTREMITIES: upper extremities are grossly normal. LOWER EXTREMITIES: Dry gangrene of the right lateral foot 6 cm x 4 cm with multiple other small wounds and surrounding erythema NEURO EXAM: Normal sensorium, cranial nerves II-XII grossly intact, normal speech, no gross weakness of arms, no gross weakness of legs. MEDICAL DECISION MAKING: Patient is a 60-year-old female who presents the ER for worsening ulcer on the right foot. Patient was referred in by wound care clinic for admission. IV was established blood work was obtained. Labs show no significant leukocytosis. Mild anemia at 8.4. INR was unremarkable. BMP with a creatinine 1.5. LFTs bilirubin was unremarkable. Lactate was normal. Covid was negative. X-ray of the foot was unremarkable. Chest x-ray was unremarkable as well. Patient was updated admitted to the hospitalist for further work-up Triage Nursing notes reviewed. Limited review of prior medical records performed Vital Signs: reviewed and remarkable for HTN Differential diagnosis: Cellulitis, abscess, MRSA infection, DVT, necrotizing fasciitis, dermatitis, drug eruption, allergic reaction, as well as other pathologies. ER treatment provided: See below Diagnostics interpreted by me: ECG: none Cardiac Monitoring: An order was placed for continuous cardiac monitoring. The monitor shows a rate of 72 with sinus rhythm. Laboratory studies: As stated above and show below. Imaging studies: X-rays of the chest and foot as discussed above Consultation(s): Discussed with hospitalist for further evaluation Procedures: none Critical Care: None Past Med/Surg History Medical History (Updated 11/11/20 @ 20:54 by See Duarte DO) Acute kidney injury superimposed on CKD Chronic back pain Chronic kidney disease (CKD), stage III (moderate) monitoring. Follows with Nephrology [facility]. Chronic venous insufficiency Clostridium difficile colitis history (~11/2016) -- treated no problems since. Diabetes mellitus type 2, uncontrolled Diabetic foot ulcer associated with type 2 diabetes mellitus, with fat layer exposed Diabetic peripheral neuropathy associated with type 2 diabetes mellitus Diabetic ulcer of right foot with fat layer exposed Dyslipidemia Hypertension Insulin-requiring or dependent type II diabetes mellitus On anticoagulant therapy Osteoarthritis PAD (peripheral artery disease) Sleep apnea no cpap Venous stasis ulcer current right foot wound, following with wound clinic Surgical History H/O vascular surgery bilateral lower legs, left leg vascular stent (August 2019/November 2019/December 2019) Dr. Cr [facility] History of cholecystectomy History of esophagogastroduodenoscopy (EGD) History of left cataract surgery History of lumpectomy of right breast benign History of tooth extraction S/P epidural steroid injection Status post colonoscopy "2012- 2 hyperplastic + 1 adenomatous polyps; 2016- normal" Status post tonsillectomy Status post tubal ligation Family History Mother Rheumatoid arthritis Father Emphysema of lung Peripheral artery disease Other No family history of adverse response to anesthesia Denies family history of CAD (coronary atherosclerotic disease) Social History Smoking Status: Former smoker Years Smoked: 45; Cigarettes Per Day: 1.5-2ppd; Second Hand Exposure: No; Hx Alcohol Use: No Hx Substance Use: No Preferred Language: Irish Communication Ability: Effective Clinical Veterinarian Required: No Beliefs That Will Affect Care: None marital status: Current Living Situation: Spouse and Family Current Living Situation Comment: reports her son is also in poor health at this time current occupational status: disabled other: previous worked at [employer] Feels Safe at Home: Yes Assistive Devices: None Allergies Allergies Allergy/AdvReac Type Severity Reaction Status Date / Time amoxicillin Allergy Intermediate HIVES & N/V Verified 11/11/20 20:22 clavulanic acid Allergy Intermediate HIVES & N/V Verified 11/11/20 17:22 sulfamethoxazole AdvReac Severe renal Verified 11/11/20 17:22 [From Bactrim] failure trimethoprim [From Bactrim] AdvReac Severe renal Verified 11/11/20 17:22 failure lisinopril AdvReac Intermediate NAUSEA/VOMI Verified 11/11/20 17:22 TING Home Meds Home Medications Medication Instructions Recorded Confirmed cholecalciferol (vitamin D3) 5,000 units PO QAM 09/16/18 11/11/20 [Vitamin D3] metoprolol tartrate 25 mg PO BID 09/16/18 11/11/20 Novolin R Regular U-100 Insuln See Rx Instructions .ROUTE .COMPLEX 01/15/19 11/11/20 rosuvastatin 40 mg PO HS 01/15/19 11/11/20 aspirin 81 mg PO QAM 06/24/19 11/11/20 polyethylene glycol 3350 [Miralax] 17 g PO DAILY PRN 02/05/20 11/11/20 Novolin N Flexpen See Rx Instructions .ROUTE .COMPLEX 04/06/20 11/11/20 magnesium oxide 500 mg PO QAM 04/06/20 11/11/20 acetaminophen 650 mg PO Q8H PRN 10/07/20 11/11/20 Santyl 1 applic TOPICAL DAILY PRN 10/21/20 11/11/20 semaglutide 0.25 mg SUBCUT WK ml 11/04/20 11/11/20 Previous Rx's Medication Instructions Recorded rivaroxaban 2.5 mg tablet 2.5 mg PO BID #180 tab 06/15/20 ciprofloxacin HCl 750 mg PO Q24H 14 Days #42 tab 10/29/20 clindamycin HCl 300 mg PO QID 14 Days #56 cap 10/29/20 tramadol 50 mg PO Q8H PRN #15 tab 10/29/20 Results & Data (ED) Vital Signs Vital Signs - 24 hr 11/11/20 16:51 11/11/20 17:57 11/11/20 18:00 Temperature 36.5 C Temperature Source Oral Pulse Rate 73 68 69 Pulse Rate from SpO2 Sensor 68 69 Respiratory Rate 18 17 18 Blood Pressure 174/68 H Blood Pressure Mean 103 Pulse Oximetry 99 98 97 Oxygen Delivery Method Room Air Room Air Room Air Sepsis Recent Fever Within 48 Hours No Sepsis New/Unexplained Change in Mental Status No Sepsis Action Taken by Nursing No Action Required 11/11/20 18:10 11/11/20 18:20 11/11/20 18:30 Temperature Temperature Source Pulse Rate 72 68 71 Pulse Rate from SpO2 Sensor 72 68 71 Respiratory Rate 19 17 21 Blood Pressure Blood Pressure Mean Pulse Oximetry 98 96 98 Oxygen Delivery Method Room Air Room Air Room Air Sepsis Recent Fever Within 48 Hours Sepsis New/Unexplained Change in Mental Status Sepsis Action Taken by Nursing 11/11/20 18:34 11/11/20 18:40 11/11/20 18:50 Temperature Temperature Source Pulse Rate 70 74 86 Pulse Rate from SpO2 Sensor 73 75 86 Respiratory Rate 16 15 18 Blood Pressure 196/70 H Blood Pressure Mean 112 Pulse Oximetry 98 98 96 Oxygen Delivery Method Room Air Room Air Room Air Sepsis Recent Fever Within 48 Hours Sepsis New/Unexplained Change in Mental Status Sepsis Action Taken by Nursing 11/11/20 19:00 11/11/20 19:30 11/11/20 19:31 Temperature Temperature Source Pulse Rate 82 79 78 Pulse Rate from SpO2 Sensor 83 79 80 Respiratory Rate 18 19 21 Blood Pressure 179/75 H 183/61 H Blood Pressure Mean 109 101 Pulse Oximetry 96 93 96 Oxygen Delivery Method Sepsis Recent Fever Within 48 Hours Sepsis New/Unexplained Change in Mental Status Sepsis Action Taken by Nursing 11/11/20 20:10 11/11/20 20:20 11/11/20 20:27 Temperature Temperature Source Pulse Rate 73 76 74 Pulse Rate from SpO2 Sensor 74 76 74 Respiratory Rate 22 16 20 Blood Pressure 136/89 Blood Pressure Mean 104 Pulse Oximetry 94 96 98 Oxygen Delivery Method Sepsis Recent Fever Within 48 Hours Sepsis New/Unexplained Change in Mental Status Sepsis Action Taken by Nursing Laboratory Data Result diagrams: 11/11/20 17:44 11/11/20 17:44 Lab Results 11/11/20 11/11/20 11/11/20 Range/Units 17:44 17:44 17:44 WBC 9.76 (4.8-10.8) K/uL RBC 3.06 L (4.2-5.4) M/uL Hgb 8.4 L (12.0-16.0) g/dL Hct 25.6 L (37-47) % MCV 83.7 (80-100) fL MCH 27.5 (25-34) pg MCHC 32.8 (32-36) g/dL RDW Std Deviation 47.1 H (36.4-46.3) fL RDW Coeff of Adelina 15.5 H (11.5-14.5) % Plt Count 230 (130-400) K/uL MPV 9.7 (7.4-10.4) fL Immature Gran % (Auto) 0.2 % Neut % (Auto) 68.0 % Lymph % (Auto) 19.8 % [place] % (Auto) 7.0 % Eos % (Auto) 4.4 % Baso % (Auto) 0.6 % Neut # (Auto) 6.64 H (1.4-6.5) K/uL Lymph # (Auto) 1.93 (1.2-3.4) K/uL [place] # (Auto) 0.68 H (0.11-0.59) K/uL Eos # (Auto) 0.43 (0-0.5) K/uL Baso # (Auto) 0.06 (0-0.2) K/uL Immature Gran # (Auto) 0.02 (0.00-0.02) K/uL PT 11.0 (9.0-12.0) Seconds INR 1.1 (0.9-1.1) APTT 29.6 (21.0-31.0) Seconds PTT Ratio 1.1 Sodium 137 (136-145) mmol/L Potassium 4.2 (3.5-5.1) mmol/L Chloride 105 (98-107) mmol/L Carbon Dioxide 25 (21-32) mmol/L Anion Gap 7.0 (3-11) BUN 31 H (7-18) mg/dl Creatinine 1.53 H (0.6-1.2) mg/dl Est Cr Clr Drug Dosing 45.3 ml/min Est GFR ( Amer) 42.1 ml/min Est GFR (Non-Af Amer) 36.3 ml/min BUN/Creatinine Ratio 20.3 H (10-20) Glucose 288 H (70-99) mg/dl Lactate (0.4-2.0) mmol/L Calcium 9.1 (8.5-10.1) mg/dl Magnesium 2.5 H (1.8-2.4) mg/dl Total Bilirubin 0.2 (0.2-1) mg/dl AST 21 (15-37) U/L ALT 32 (12-78) U/L Alkaline Phosphatase 118 H (45-117) U/L Total Protein 7.6 (6.4-8.2) gm/dl Albumin 2.9 L (3.4-5.0) gm/dl Globulin 4.7 H (2.5-4.0) gm/dl Albumin/Globulin Ratio 0.6 L (0.9-2) COVID-19 Eval Order SARS-CoV-2 (PCR) (Negative) 11/11/20 11/11/20 11/11/20 Range/Units 17:44 17:50 17:50 WBC (4.8-10.8) K/uL RBC (4.2-5.4) M/uL Hgb (12.0-16.0) g/dL Hct (37-47) % MCV (80-100) fL MCH (25-34) pg MCHC (32-36) g/dL RDW Std Deviation (36.4-46.3) fL RDW Coeff of Adelina (11.5-14.5) % Plt Count (130-400) K/uL MPV (7.4-10.4) fL Immature Gran % (Auto) % Neut % (Auto) % Lymph % (Auto) % [place] % (Auto) % Eos % (Auto) % Baso % (Auto) % Neut # (Auto) (1.4-6.5) K/uL Lymph # (Auto) (1.2-3.4) K/uL [place] # (Auto) (0.11-0.59) K/uL Eos # (Auto) (0-0.5) K/uL Baso # (Auto) (0-0.2) K/uL Immature Gran # (Auto) (0.00-0.02) K/uL PT (9.0-12.0) Seconds INR (0.9-1.1) APTT (21.0-31.0) Seconds PTT Ratio Sodium (136-145) mmol/L Potassium (3.5-5.1) mmol/L Chloride (98-107) mmol/L Carbon Dioxide (21-32) mmol/L Anion Gap (3-11) BUN (7-18) mg/dl Creatinine (0.6-1.2) mg/dl Est Cr Clr Drug Dosing ml/min Est GFR ( Amer) ml/min Est GFR (Non-Af Amer) ml/min BUN/Creatinine Ratio (10-20) Glucose (70-99) mg/dl Lactate 1.2 (0.4-2.0) mmol/L Calcium (8.5-10.1) mg/dl Magnesium (1.8-2.4) mg/dl Total Bilirubin (0.2-1) mg/dl AST (15-37) U/L ALT (12-78) U/L Alkaline Phosphatase (45-117) U/L Total Protein (6.4-8.2) gm/dl Albumin (3.4-5.0) gm/dl Globulin (2.5-4.0) gm/dl Albumin/Globulin Ratio (0.9-2) COVID-19 Eval Order Covid19 at [facility] SARS-CoV-2 (PCR) NEGATIVE (Negative) Administered Medications Miscellaneous Information (Vancomycin Consult Active) 1 ea N/A UD PRN PRN Reason: Consult Stop: 12/11/20 17:56 Last Admin: 11/11/20 18:55 Dose: 1 ea Documented by: [id number] Admin: 11/11/20 18:33 Dose: 1 ea Documented by: [id number] Miscellaneous Information (Daptomycin Consult Active) 1 ea N/A UD PRN PRN Reason: Consult Stop: 12/11/20 18:49 Last Admin: 11/11/20 18:55 Dose: 1 ea Documented by: [id number] Discontinued Medications Diphenhydramine HCl (Diphenhydramine 50 Mg/Ml Vial) 25 mg IV NOW STA Stop: 11/11/20 18:50 Last Admin: 11/11/20 18:54 Dose: 25 mg Documented by: [id number] Vancomycin HCl 2,750 mg/ (Sodium Chloride) 555 mls @ 200 mls/hr IV NOW ONE Stop: 11/11/20 20:43 Last Infusion: 11/11/20 18:54 Dose: 75 mls/hr Documented by: [id number] Admin: 11/11/20 18:33 Dose: 200 mls/hr Documented by: [id number] Daptomycin 300 mg/ Syringe 6 mls @ 3 mls/min IV NOW ONE; Protocol Stop: 11/11/20 18:51 Last Admin: 11/11/20 20:25 Dose: Not Given Documented by: [id number] Imaging Data Radiologist's Impression: Chest X-Ray 11/11/20 17:07 XR chest 1V portable CLINICAL HISTORY: SEPSIS COMPARISON STUDY: October 20, 2019 FINDINGS: No pneumothorax. No pleural effusion. No large infiltrates or consolidative lesions are seen. Minimal prominence of pulmonary interstitium is seen within bilateral lower lungs, stable since prior. Cardiomediastinal silhouette is within normal limits in size. No significant pulmonary vascular congestion.. Aortic calcifications are seen. Osseous structures: Degenerative changes of the spine. IMPRESSION: 1. No acute pulmonary process. ACT 112: Negative or not required by law. The above report was generated using voice recognition software. It may contain grammatical, syntax or spelling errors. Electronically signed by: Nadine Leal DO 11/11/2020 6:03 PM Foot X-Ray 11/11/20 17:07 XR foot RT min 3V routine CLINICAL HISTORY: Dry gangrene right lateral foot COMPARISON: October 21, 2020 DISCUSSION: No acute fracture or dislocation seen. Mottled appearance of the all osseous structures is again seen. 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 Plantar and posterior calcaneal spurs are seen. Diffuse soft tissue edema is demonstrated. No evidence of gas or significant defect is seen within soft tissue Vascular calcifications are seen. IMPRESSION: No acute fracture or dislocation. No evidence of of soft tissue defect or soft tissue gas collection is seen to suggest ulcer and abscess. Atherosclerosis. Findings are similar to recent prior study performed on October 21, 2020. ACT 112: Negative or not required by law. The above report was generated using voice recognition software. It may contain grammatical, syntax or spelling errors. Electronically signed by: Nadine Leal DO 11/11/2020 5:59 PM Discharge Plan Visit Data Chief Complaint: Infection, Wound Stated Complaint: WOUND ON FOOT, TURNING BAD COLOR ED Provider: See Duarte Discharge Problem: Cellulitis, Anemia, Elevated blood sugar, Ulcerated, foot Patient Disposition: Admitted As Inpatient Discharge Instructions Interventions: ED Discharge Assessment Last Done: 11/11/20 20:35 Forms Stand Alone Forms: [employer] Prescriptions Prescriptions: No Action Ozempic 0.25 mg or 0.5 mg(2 mg/1.5 mL) pen injector 0.25 mg subcut WK RF: 0 Xarelto 2.5 mg tablet 2.5 mg PO BID Qty: 180 RF: 3 Novolin R Regular U-100 Insuln 100 unit/mL Solution See Rx Instructions .ROUTE .COMPLEX RF: 0 rosuvastatin 40 mg Tablet 40 mg PO HS RF: 0 polyethylene glycol 3350 [Miralax] 17 gram Powder In Packet 17 g PO DAILY PRN (Reason: Constipation) RF: 0 metoprolol tartrate 25 mg tablet 25 mg PO BID RF: 0 cholecalciferol (vitamin D3) [Vitamin D3] 5,000 unit Tablet 5,000 units PO QAM RF: 0 aspirin 81 mg Tablet,Delayed Release (Dr/Ec) 81 mg PO QAM RF: 0 magnesium oxide 500 mg Tablet 500 mg PO QAM RF: 0 Novolin N Flexpen 100 unit/mL (3 mL) Insulin Pen See Rx Instructions .ROUTE .COMPLEX RF: 0 Santyl 250 unit/gram ointment 1 applic topical DAILY PRN (Reason: Other) RF: 0 ciprofloxacin HCl 250 mg Tablet 750 mg PO Q24H 14 Days Qty: 42 RF: 0 clindamycin HCl 300 mg capsule 300 mg PO QID 14 Days Qty: 56 RF: 0 tramadol 50 mg tablet 50 mg PO Q8H PRN (Reason: Pain) Qty: 15 RF: 0 acetaminophen 650 mg Tablet Extended Release 650 mg PO Q8H PRN (Reason: Pain) RF: 0 Referrals Referrals: Kaila Freitas MD [Primary Care Provider] - Discharge Problem: Cellulitis Qualifiers: Site of cellulitis: unspecified site Qualified Code(s): L03.90 - Cellulitis, unspecified Anemia Qualifiers: Anemia type: unspecified type Qualified Code(s): D64.9 - Anemia, unspecified Ulcerated, foot Qualifiers: Laterality: right Non-pressure ulcer stage: unspecified non-pressure ulcer stage Qualified Code(s): L97.519 - Non-pressure chronic ulcer of other part of right foot with unspecified severity
[2020-11-11] MEDS ORDERED: VANCOMYCIN HCL 2,750 MG in SODIUM CHLORIDE 0.9% 500 ML IV ONE (17:57)
--- NOTE | 2020-11-11 18:00 | XRay Report ---
XR foot RT min 3V routine CLINICAL HISTORY: Dry gangrene right lateral foot COMPARISON: October 21, 2020 DISCUSSION: No acute fracture or dislocation seen. Mottled appearance of the all osseous structures is again seen. 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 Plantar and posterior calcaneal spurs are seen. Diffuse soft tissue edema is demonstrated. No evidence of gas or significant defect is seen within so ft tissue Vascular calcifications are seen. IMPRESSION: No acute fracture or dislocation. No evidence of of soft tissue defect or soft tissue gas collection is seen to suggest ulcer and absce ss. Atherosclerosis. Findings are similar to recent prior study performed on October 21, 2020. ACT 112: Negative or not required by law. The above report was generated using voice recognition software. It may contain grammatical, syntax o r spelling errors. Electronically signed by: Nadine Leal DO 11/11/2020 5:59 PM
--- NOTE | 2020-11-11 18:04 | XRay Report ---
XR chest 1V portable CLINICAL HISTORY: SEPSIS COMPARISON STUDY: October 20, 2019 FINDINGS: No pneumothorax. No pleural effusion. No large infiltrates or consolidative lesions are seen. Minimal prominence of pulmonary interstitium is seen within bilateral lower lungs, stable since prior. Cardiomediastinal silhouette is within normal limits in size. No significant pulmonary vascular congestion.. Aortic calcifications are seen. Osseous structures: Degenerative changes of the spine. IMPRESSION: 1. No acute pulmonary process. ACT 112: Negative or not required by law. The above report was generated using voice recognition software. It may contain grammatical, syntax o r spelling errors. Electronically signed by: Nadine Leal DO 11/11/2020 6:03 PM
[2020-11-11 18:06] LABS: Basophils # (auto) 0.06 K/uL (0-0.2); Basophils % (auto) 0.6 %; Eosinophils # (auto) 0.43 K/uL (0-0.5); Eosinophils % (auto) 4.4 %; Hematocrit (blood only) 25.6 % (37-47); Hemoglobin 8.4 g/dL (12.0-16.0); Immature Granulocytes # (auto) 0.02 K/uL (0.00-0.02); Immature Granulocytes % (auto) 0.2 %; Lymphocytes # (auto) 1.93 K/uL (1.2-3.4); Lymphocytes % (auto) 19.8 %; Mean Corpuscular Hemoglobin 27.5 pg (25-34); Mean Corpuscular Hgb Conc 32.8 g/dL (32-36); Mean Corpuscular Volume 83.7 fL (80-100); Mean Platelet Volume 9.7 fL (7.4-10.4); Monocytes # (auto) 0.68 K/uL (0.11-0.59); Neutrophils # (auto) 6.64 K/uL (1.4-6.5); Platelet Count 230 K/uL (130-400); RDW Coefficient of Variation 15.5 % (11.5-14.5); RDW Standard Deviation 47.1 fL (36.4-46.3); Red Blood Count 3.06 M/uL (4.2-5.4); White Blood Count 9.76 K/uL (4.8-10.8)
[2020-11-11 18:21] LABS: INR 1.1 (0.9-1.1); Partial Thromboplastin Ratio 1.1; Partial Thromboplastin Time 29.6 Seconds (21.0-31.0)
[2020-11-11 18:24] LABS: Albumin Level 2.9 gm/dl (3.4-5.0); BUN Creatinine Ratio 20.3 (10-20); Calcium 9.1 mg/dl (8.5-10.1); Creatinine Clr Calc Pharmacy 45.3 ml/min; Est GFR (African American) 42.1 ml/min; Est GFR (Non-African American) 36.3 ml/min; Magnesium 2.5 mg/dl (1.8-2.4); Potassium 4.2 mmol/L (3.5-5.1)
[2020-11-11 18:27] LABS: Albumin Globulin Ratio 0.6 (0.9-2); Bilirubin,Total 0.2 mg/dl (0.2-1); Globulin 4.7 gm/dl (2.5-4.0); Total Protein 7.6 gm/dl (6.4-8.2)
[2020-11-11] MEDS: VANCOMYCIN CONSULT ACTIVE PRN ×2 (18:33→18:55)
[2020-11-11] MEDS ORDERED: diphenhydrAMINE 50 MG/ML VIAL IV STA (18:49)
[2020-11-11] MEDS ORDERED: DAPTOmycin 300 MG in SYRINGE 0 ML IV ONE (18:50)
--- NOTE | 2020-11-11 18:53 | History & Physical Report ---
Date of Service November 11, 2020 Assessment & Plan (1) Diabetic ulcer of right foot associated with diabetes mellitus due to un derlying condition, limited to breakdown of skin: Has diabetic neuropathic foot ulcer complicated by peripheral artery disease and venous insufficiency He has been in the [facility] recently with right foot ulcer from 10/21/2020 to 10/29/2020 and he was evaluated by vascular surgery, nephrology and ID. Has been on clindamycin and Cipro as an outpatient Increasing symptoms with outpatient failure of antibiotics X-ray of the right foot did not show any gas in the soft tissue We will admit to [facility] telemetry and start with intravenous vancomycin and cefepime Consult vascular surgery and wound care management (2) Diabetic peripheral neuropathy associated with type 2 diabetes mellitus: Has diabetic peripheral neuropathy (3) Charcot's joint of foot due to diabetes: (4) Chronic kidney disease (CKD), stage III (moderate): History of CKD stage III Will not give any additional IV fluid given the history of diastolic heart failure (5) Morbid obesity: (6) Diabetes mellitus type 2, uncontrolled: We will continue current dose of insulin as an outpatient (7) PAD (peripheral artery disease): Has coldness involving the left toes Dorsalis pedis and tibialis posterior were not palpable Vascular surgery consulted (8) Sleep apnea: Does not use any CPAP DVT prophylaxis Has been on Eliquis History of Present Illness Chief Complaint: Increasing pain, swelling and redness of the right foot Primary Care Provider: Kaila Freitas MD She is a 60-year-old obese female with significant past medical history of type 2 diabetes on insulin, PAD, CKD stage III, ALLY, diabetic polyneuropathy, Charcot foot, chronic diastolic CHF, hypertension and hyperlipidemia was sent into ER from wound clinic this afternoon. She has been complaining of more swelling of the right foot, increasing pain and redness involving the right foot as well. She denies any fever and/or chills but she does have occasional sweating. Denies any abdominal pain nausea and or vomiting. No chest pain or palpitation. She was seen in the clinic with more redness and swelling of the foot and also coldness involving the left toes. She was sent in for admission and further evaluation by the vascular surgeon. Allergies Allergy/AdvReac Type Severity Reaction Status Date / Time amoxicillin Allergy Intermediate HIVES & N/V Verified 11/11/20 17:22 clavulanic acid Allergy Intermediate HIVES & N/V Verified 11/11/20 17:22 sulfamethoxazole AdvReac Severe renal Verified 11/11/20 17:22 [From Bactrim] failure trimethoprim [From Bactrim] AdvReac Severe renal Verified 11/11/20 17:22 failure lisinopril AdvReac Intermediate NAUSEA/VOMI Verified 11/11/20 17:22 TING Home Medications Medication Instructions Recorded Confirmed Type cholecalciferol (vitamin D3) 5,000 units PO QAM 09/16/18 11/11/20 History [Vitamin D3] metoprolol tartrate 25 mg PO BID 09/16/18 11/11/20 History Novolin R Regular U-100 Insuln See Rx Instructions .ROUTE .COMPLEX 01/15/19 11/11/20 History rosuvastatin 40 mg PO HS 01/15/19 11/11/20 History aspirin 81 mg PO QAM 06/24/19 11/11/20 History polyethylene glycol 3350 [Miralax] 17 g PO DAILY PRN 02/05/20 11/11/20 History Novolin N Flexpen See Rx Instructions .ROUTE .COMPLEX 04/06/20 11/11/20 History magnesium oxide 500 mg PO QAM 04/06/20 11/11/20 History rivaroxaban 2.5 mg tablet 2.5 mg PO BID #180 tab 06/15/20 11/11/20 Rx acetaminophen 650 mg PO Q8H PRN 10/07/20 11/11/20 History Santyl 1 applic TOPICAL DAILY PRN 10/21/20 11/11/20 History ciprofloxacin HCl 750 mg PO Q24H 14 Days #42 tab 10/29/20 11/11/20 Rx clindamycin HCl 300 mg PO QID 14 Days #56 cap 10/29/20 11/11/20 Rx tramadol 50 mg PO Q8H PRN #15 tab 10/29/20 11/11/20 Rx semaglutide 0.25 mg SUBCUT WK ml 11/04/20 11/11/20 History Past Med/Surg History Medical History (Updated 11/11/20 @ 18:48 by Tanner Forrest MD) Acute kidney injury superimposed on CKD Chronic back pain Chronic kidney disease (CKD), stage III (moderate) monitoring. Follows with Nephrology [facility]. Chronic venous insufficiency Clostridium difficile colitis history (~11/2016) -- treated no problems since. Diabetes mellitus type 2, uncontrolled Diabetic foot ulcer associated with type 2 diabetes mellitus, with fat layer exposed Diabetic peripheral neuropathy associated with type 2 diabetes mellitus Diabetic ulcer of right foot with fat layer exposed Dyslipidemia Hypertension Insulin-requiring or dependent type II diabetes mellitus On anticoagulant therapy Osteoarthritis PAD (peripheral artery disease) Sleep apnea no cpap Venous stasis ulcer current right foot wound, following with wound clinic Surgical History H/O vascular surgery bilateral lower legs, left leg vascular stent (August 2019/November 2019/December 2019) Dr. Cr [facility] History of cholecystectomy History of esophagogastroduodenoscopy (EGD) History of left cataract surgery History of lumpectomy of right breast benign History of tooth extraction S/P epidural steroid injection Status post colonoscopy "2012- 2 hyperplastic + 1 adenomatous polyps; 2016- normal" Status post tonsillectomy Status post tubal ligation Family History Mother Rheumatoid arthritis Father Emphysema of lung Peripheral artery disease Other No family history of adverse response to anesthesia Denies family history of CAD (coronary atherosclerotic disease) Social History Smoking Status: Former smoker Years Smoked: 45; Cigarettes Per Day: 1.5-2ppd; Second Hand Exposure: No; Hx Alcohol Use: No Hx Substance Use: No Preferred Language: Polish Communication Ability: Effective Payroll Services Analyst Required: No Beliefs That Will Affect Care: None marital status: Current Living Situation: Spouse and Family Current Living Situation Comment: reports her son is also in poor health at this time current occupational status: disabled other: previous worked at [employer] Feels Safe at Home: Yes Assistive Devices: None Review of Systems Review of Systems: All systems reviewed & are unremarkable except as noted in HPI & below Physical Exam Physical Exam: Lying in bed comfortably Constitutional: well developed, well nourished and + obese; not ill appearing Eyes: PERRL, conjunctivae normal, anicteric sclerae ENMT: external ear and nose normal, oropharynx normal Neck: trachea midline, no thyromegaly Respiratory: no respiratory distress Auscultation: lungs clear to auscultation bilaterally Cardiovascular: Rate/Rhythm: regular rate and regular rhythm Heart Sounds: no murmur Extremities: + edema (Trace edema bilaterally more on the right than the left.) Right foot ulceration involving the lateral area which is bandaged. Coldness involving the right toes. Redness of the foot and adjoining part of the ankle with increasing local temperature Gastrointestinal (Abdomen): Inspection/Auscultation: + abdomen distended Percussion/Palpation: abdomen soft; abdomen nontender Musculoskeletal: No acute arthritis in any joint Neurologic: Alert, awake and oriented x3 Psychiatric: A+Ox3, euthymic affect Lymphatic: no cervical or axillary lymphadenopathy Results & Data Results & Data ([facility]) Vital Signs (Past 12 Hours) Vital Signs Temp Pulse Resp BP Pulse Ox 11/11/20 16:51 36.5 C 73 18 174/68 H 99 Laboratory Results Short CBC 11/11/20 Range/Units 17:44 WBC 9.76 (4.8-10.8) K/uL Hgb 8.4 L (12.0-16.0) g/dL Hct 25.6 L (37-47) % Plt Count 230 (130-400) K/uL BMP 11/11/20 17:44 Sodium 137 Potassium 4.2 Chloride 105 Carbon Dioxide 25 BUN 31 H Creatinine 1.53 H Glucose 288 H Calcium 9.1 Liver Function 11/11/20 Range/Units 17:44 Total Bilirubin 0.2 (0.2-1) mg/dl AST 21 (15-37) U/L ALT 32 (12-78) U/L Alkaline Phosphatase 118 H (45-117) U/L Albumin 2.9 L (3.4-5.0) gm/dl Medications Administered Current Inpatient Medications Vancomycin HCl 2,750 mg/ (Sodium Chloride) 555 mls @ 200 mls/hr IV NOW ONE Stop: 11/11/20 20:43 Last Admin: 11/11/20 18:33 Dose: 200 mls/hr Documented by: Miscellaneous Information (Vancomycin Consult Active) 1 ea N/A UD PRN PRN Reason: Consult Stop: 12/11/20 17:56 Last Admin: 11/11/20 18:33 Dose: 1 ea Documented by: (1) Diabetes mellitus type 2, uncontrolled Glycemic state: with hyperglycemia Qualified Code(s): E11.65 - Type 2 diabetes mellitus with hyperglycemia (2) Sleep apnea Sleep apnea type: obstructive Qualified Code(s): G47.33 - Obstructive sleep apnea (adult) (pediatric)
[2020-11-11] MEDS ORDERED: CEFEPIME 20 ML IV STA (20:23)
[2020-11-11] MEDS ORDERED: traMADol HCL 50 MG TABLET PO PRN (21:34)
[2020-11-11] MEDS ORDERED: POLYETHYLENE (MIRALAX) 17 GM PACK PO PRN (21:34)
[2020-11-11] MEDS ORDERED: COLLAGENASE OINT 30 GM TUBE TOP PRN (21:34)
[2020-11-11] MEDS ORDERED: ACETAMINOPHEN 325 MG TAB PO PRN (21:39)
[2020-11-11] MEDS ORDERED: PHARMACY GLYCEMIC MGMT CONSULT STA (21:59)
[2020-11-11] MEDS ORDERED: PHARMACY GLYCEMIC MGMT CONSULT PRN (21:59)
[2020-11-11] MEDS ORDERED: GLUCOSE 40% GEL 15 GM TUBE PO PRN (22:00)
[2020-11-11] MEDS ORDERED: DEXTROSE 50% 50 ML SYRINGE IV PRN (22:00)
[2020-11-11] MEDS ORDERED: CARBOHYDRATES FOR HYPOGLYCEMIA PO PRN (22:00)
[2020-11-11] MEDS ORDERED: GLUCAGON FOR INJ 1 MG VIAL IM PRN (22:00)
[2020-11-11] MEDS ORDERED: INSULIN HUMAN NPH SC ONE (22:00)
[2020-11-11] MEDS ORDERED: GLUCOSE 10 TABS/TUBE PO PRN (22:00)
[2020-11-11] MEDS: DAPTOmycin 300 MG in SYRINGE 0 ML IV SCH (22:21)
[2020-11-11] MEDS: METOPROLOL TARTRATE 25 MG TAB PO SCH (22:22)
[2020-11-11] MEDS: RIVAROXABAN 2.5 MG TAB PO SCH (22:22)
[2020-11-11] MEDS: ROSUVASTATIN CALCIUM 20 MG TAB PO SCH (22:22)
[2020-11-11] MEDS: INSULIN ASPART 100 UNITS/ML 3 ML PEN SC SCH (22:37)
[2020-11-11] MEDS: CEFEPIME 2,000 MG in SYRINGE 0 ML IV SCH (23:57)
[2020-11-12] MEDS: oxyCODONE HCL IR 5 MG TAB (IMMEDIATE RELEASE) PO PRN ×4 (01:23→21:43)
[2020-11-12] MEDS: INSULIN ASPART 100 UNITS/ML 3 ML PEN SC SCH ×6 (01:24→20:33)
[2020-11-12 06:31] LABS: Basophils # (auto) 0.05 K/uL (0-0.2); Basophils % (auto) 0.4 %; Eosinophils # (auto) 0.47 K/uL (0-0.5); Eosinophils % (auto) 4.2 %; Hemoglobin 8.5 g/dL (12.0-16.0); Immature Granulocytes # (auto) 0.02 K/uL (0.00-0.02); Immature Granulocytes % (auto) 0.2 %; Lymphocytes # (auto) 1.44 K/uL (1.2-3.4); Lymphocytes % (auto) 12.8 %; Mean Corpuscular Hemoglobin 27.9 pg (25-34); Mean Corpuscular Hgb Conc 32.7 g/dL (32-36); Mean Corpuscular Volume 85.2 fL (80-100); Mean Platelet Volume 9.1 fL (7.4-10.4); Monocytes % (auto) 5.4 %; Neutrophils # (auto) 8.63 K/uL (1.4-6.5); Platelet Count 255 K/uL (130-400); RDW Coefficient of Variation 15.4 % (11.5-14.5); RDW Standard Deviation 47.8 fL (36.4-46.3); Red Blood Count 3.05 M/uL (4.2-5.4); White Blood Count 11.21 K/uL (4.8-10.8)
[2020-11-12 07:15] LABS: BUN Creatinine Ratio 19.2 (10-20); Creatinine Clr Calc Pharmacy 51.2 ml/min; Est GFR (African American) 52.2 ml/min; Est GFR (Non-African American) 45.1 ml/min; Potassium 3.6 mmol/L (3.5-5.1)
[2020-11-12 07:18] LABS: Magnesium 2.3 mg/dl (1.8-2.4); Phosphorus 3.3 mg/dl (2.5-4.9)
[2020-11-12 07:19] LABS: Appearance Urine Clear (Clear); Bacteria Urine Automated Negative (Negative); Bilirubin Urine Negative (Negative); Blood Urine Trace (Negative); Color Urine Yellow; Epithelial Cell Urine Auto 20-30 /lpf (0-5); Glucose Urine UA 2+ (Negative); Ketones Urine Negative (Negative); Leukocyte Esterase Urine Negative (Negative); Nitrite Urine Negative (Negative); Protein Urine 2+ (Negative); RBC Urine Automated 0-4 /hpf (0-4); Specific Gravity Urine 1.018 (1.000-1.030); Urobilinogen Urine Negative (Negative); pH Urine 6.5 (4.5-7.5)
--- NOTE | 2020-11-12 07:35 | Electrocardiogram Report ---
Test Reason : Blood Pressure : / mmHG Vent. Rate : 068 BPM Atrial Rate : 068 BPM P-R Int : 220 ms QRS Dur : 102 ms QT Int : 438 ms P-R-T Axes : 037 -41 009 degrees QTc Int : 465 ms Sinus rhythm with 1st degree A-V block Left axis deviation Low voltage QRS Incomplete right bundle branch block Cannot rule out Septal infarct , age undetermined Abnormal ECG When compared with ECG of 24-OCT-2020 06:30, ME interval has increased Borderline Criteria for Septal infarct now present Confirmed by Nayan Vallejo ([id number]) on 11/12/2020 7:35:09 AM Referred By: Kylie White Confirmed By:Nayan Vallejo
[2020-11-12] MEDS: METOPROLOL TARTRATE 25 MG TAB PO SCH ×2 (08:49→20:33)
[2020-11-12] MEDS: CHOLECALCIFEROL 1,000 UNITS 25 MCG TAB PO SCH (08:49)
[2020-11-12] MEDS: RIVAROXABAN 2.5 MG TAB PO SCH ×2 (08:49→20:33)
[2020-11-12] MEDS: ASPIRIN 81 MG ECTAB PO SCH (08:49)
[2020-11-12] MEDS: INSULIN HUMAN NPH SC SCH ×2 (08:56→18:10)
--- NOTE | 2020-11-12 09:03 | Pharmacy Report ---
Pharmacy Glycemic Short Note 2 - Date of Service November 12, 2020 - Glycemic Short BSG Results (Last 24 hours): 11/11/20 11/11/20 11/12/20 17:44 20:58 01:07 Glucose 288 H POC Glucose 303 H* 154 H 11/12/20 11/12/20 11/12/20 04:02 06:20 07:26 Glucose 98 POC Glucose 109 H 118 H OUTPATIENT ANTIDIABETIC REGIMEN: * NPH 65-80 units BID * Regular insulin - 70 units TID With meals * Metformin discontinued after admission in October ASSESSMENT: * 60 year old female admitted for DM foot ulcer, on IV antibiotics, known to pharmacy glycemic service from recent admission last month * Will use NPH for basal as patient uses NPH at home and NovoLog CF/CR and use similar regimen as last admission and titrate to goal PLAN FOR INPATIENT GLYCEMIC CONTROL: * Basal insulin * NPH 25 units SQ BID with meals * Bolus insulin * NovoLog per scale ACHS or Q6hrs while NPO * Goal Range: Low 110 mg/dL - High 140 mg/dL * Correction Factor: 8 mg/dL/unit * Nutritional / Prandial insulin per carb ratio of 1 unit per 3 grams CHO consumed
[2020-11-12] MEDS ORDERED: metroNIDAZOLE 500 MG/100 ML BAG IV SCH (11:00)
--- NOTE | 2020-11-12 12:48 | Electrocardiogram Report ---
Test Reason : Blood Pressure : / mmHG Vent. Rate : 075 BPM Atrial Rate : 075 BPM P-R Int : 212 ms QRS Dur : 102 ms QT Int : 416 ms P-R-T Axes : 048 -59 029 degrees QTc Int : 464 ms Sinus rhythm with 1st degree A-V block Left axis deviation Cannot rule out Old Septal infarct (cited on or before 11-NOV-2020) Abnormal ECG When compared with ECG of 11-NOV-2020 17:53, Incomplete right bundle branch block no longer present Otherwise no significant change Confirmed by Nayan Vallejo ([id number]) on 11/12/2020 12:47:41 PM Referred By: Kylie White Confirmed By:Nayan Vallejo
[2020-11-12] MEDS ORDERED: INSULIN HUMAN NPH SC ONE (18:15)
[2020-11-12] MEDS ORDERED: oxyCODONE HCL IR 5 MG TAB (IMMEDIATE RELEASE) PO STA (19:02)
[2020-11-12] MEDS ORDERED: ONDANSETRON INJ 2 MG/ML 2 ML VIAL IV PRN (19:02)
[2020-11-12] MEDS: ROSUVASTATIN CALCIUM 20 MG TAB PO SCH (20:33)
[2020-11-12] MEDS: metroNIDAZOLE 500 MG/100 ML BAG IV SCH (20:33)
[2020-11-12] MEDS: DAPTOmycin 300 MG in SYRINGE 0 ML IV SCH (21:44)
--- NOTE | 2020-11-12 22:18 | Hospitalist Progress Note ---
Date of Service November 12, 2020 Assessment & Plan (1) Diabetic ulcer of right foot associated with diabetes mellitus due to un derlying condition, limited to breakdown of skin: Has diabetic neuropathic foot ulcer complicated by peripheral artery disease and venous insufficiency He has been in the [facility] recently with right foot ulcer from 10/21/2020 to 10/29/2020 and he was evaluated by vascular surgery, nephrology and ID. Has been on clindamycin and Cipro as an outpatient Increasing symptoms with outpatient failure of antibiotics X-ray of the right foot did not show any gas in the soft tissue Recent MRI foot in October did not reveal osteomyelitis. We will admit to [facility] telemetry and start with intravenous vancomycin and cefepime Add flagyl for anaerobe coverage. Consult vascular surgery and wound care management (2) Diabetic peripheral neuropathy associated with type 2 diabetes mellitus: supportive care with special support shoes, etc (3) Charcot's joint of foot due to diabetes: Patient still able to ambulate on feet (4) Chronic kidney disease (CKD), stage III (moderate): at baseline, cont to trend BMP (5) Morbid obesity: lifestyle modifications recommended. (6) Diabetes mellitus type 2, uncontrolled: cont with basal bolus insulin. Currently at goal. (7) PAD (peripheral artery disease): Has coldness involving the left toes Dorsalis pedis and tibialis posterior were not palpable Vascular surgery consulted (8) Sleep apnea: intolerant to CPAP. heparin DO Maycol Miller Admission and Anticipated Discharge Date Admission Date: November 11, 2020 Subjective 60 yo F with uncontrolled diabetes presents with pain and worsened wound on right foot. MRI of this area just 2-3 weeks ago was negative for osteo and she is afebrile. She was started on Dapto and cefepime-flagyl added for anaerobic coverage. She is able to ambulate but reports significant neuropathy. She states her pain is controlled with current pain medications. She otherwise denies any symptoms and states that she has PAD in her legs and she is under the impression that Dr. Le will be speaking with her on Saturday about that. Review of Systems Review of Systems: All systems reviewed & are unremarkable except as noted in Subjective Physical Exam Physical Exam: CONSTITUTIONAL: WNWD, vitals as above, generally well- appearing EYES: normal conjunctivae, no scleral icterus ENT: external ear and nose normal, MMM RESPIRATORY: clear to auscultation bilaterally, no crackles, rales or wheezes, normal respiratory effort CARDIOVASCULAR: regular rate and rhythm, S1 and 2 heard without murmurs, gallops or rubs, no JVD, trace bilateral swelling. GASTROINTESTINAL: soft, nontender, nondistended, no guarding MUSCULOSKELETAL: strength 5/5 throughout, head is normocephalic and atraumatic, neck supple, normal palpation of chest wall without tenderness SKIN: warm and dry, large unstageable area>2cm on right midfoot. Erythema in distal portion of legs excluding the feet bilaterally. NEUROLOGIC: CN 2-12 grossly intact, no sensory deficit, normal cognition, normal speech, no tremor PSYCHIATRIC: alert cooperative and oriented to person, place and time. Results & Data Results & Data ([facility]) Vital Signs (Past 12 Hours) Vital Signs Temp Pulse Pulse Pulse Resp BP Pulse Ox 11/12/20 19:28 36.7 C 73 20 128/51 L 96 11/12/20 16:00 67 11/12/20 15:17 36.4 C L 69 16 145/63 H 98 11/12/20 11:35 36.7 C 66 16 131/75 97 Laboratory Results Short CBC 11/12/20 Range/Units 06:20 WBC 11.21 H (4.8-10.8) K/uL Hgb 8.5 L (12.0-16.0) g/dL Hct 26.0 L (37-47) % Plt Count 255 (130-400) K/uL BMP 11/12/20 06:20 Sodium 138 Potassium 3.6 Chloride 107 Carbon Dioxide 24 BUN 25 H Creatinine 1.28 H Glucose 98 Calcium 9.0 Urine 11/12/20 Range/Units 06:55 Urine Color Yellow Urine Appearance Clear (Clear) Urine pH 6.5 (4.5-7.5) Ur Specific [place] 1.018 (1.000-1.030) Urine Protein 2+ H (Negative) Urine Glucose (UA) 2+ H (Negative) Medications Administered Current Inpatient Medications Acetaminophen (Acetaminophen 325 Mg Tab) 650 mg PO Q8H PRN PRN Reason: Pain Stop: 12/11/20 21:38 Aspirin (Aspirin 81 Mg Ectab) 81 mg PO QAM PER Stop: 12/12/20 08:59 Last Admin: 11/12/20 08:49 Dose: 81 mg Documented by: Collagenase (Collagenase Oint 30 Gm Tube) 1 appln TOP DAILY PRN PRN Reason: Other Stop: 12/11/20 21:33 Dextrose (Dextrose 50% 50 Ml Syringe) 25 - 50 ml IV UD PRN; Protocol PRN Reason: Hypoglycemia Protocol Stop: 12/11/20 21:59 Glucagon (Glucagon For Inj 1 Mg Vial) 1 mg IM UD PRN; Protocol PRN Reason: Hypoglycemia Protocol Stop: 12/11/20 21:59 Glucose (Glucose 40% Gel 15 Gm Tube) 15 - 30 gm PO UD PRN; Protocol PRN Reason: Hypoglycemia Protocol Stop: 12/11/20 21:59 Glucose (Glucose 10 Tabs/Tube) 4 - 8 tabs PO UD PRN; Protocol PRN Reason: Hypoglycemia Protocol Stop: 12/11/20 21:59 Hydromorphone HCl (Hydromorphone Inj 0.5 Mg/0.5 Ml Syr) 0.5 mg IV Q3H PRN PRN Reason: Pain Stop: 11/26/20 00:54 Cefepime HCl 2,000 mg/ Syringe 20 mls @ 5 mls/min IV Q24H PER; Protocol Stop: 11/18/20 22:59 Last Admin: 11/11/20 23:57 Dose: 5 mls/min Documented by: Daptomycin 300 mg/ Syringe 6 mls @ 3 mls/min IV Q24H PER; Protocol Stop: 11/13/20 21:59 Last Admin: 11/12/20 21:44 Dose: 3 mls/min Documented by: Metronidazole (Flagyl) 500 mg in 100 mls @ 100 mls/hr IV Q8H PER; Protocol Stop: 11/19/20 19:59 Last Infusion: 11/12/20 21:28 Dose: Infused Documented by: Insulin Aspart (Insulin Aspart 100 Units/Ml 3 Ml Pen) 0 units SC ACHS [facility] Stop: 12/11/20 21:59 Last Admin: 11/12/20 20:33 Dose: Not Given Documented by: Metoprolol Tartrate (Metoprolol Tartrate 25 Mg Tab) 25 mg PO BID [facility] Stop: 12/11/20 21:59 Last Admin: 11/12/20 20:33 Dose: 25 mg Documented by: Miscellaneous (Carbohydrates For Hypoglycemia ) 15 - 30 gm PO UD PRN PRN Reason: Hypoglycemia Treatment Stop: 12/11/20 21:59 Miscellaneous Information (Daptomycin Consult Active) 1 ea N/A UD PRN PRN Reason: Consult Stop: 12/11/20 18:49 Last Admin: 11/11/20 18:55 Dose: 1 ea Documented by: Miscellaneous Information (Pharmacy Glycemic Mgmt Consult) 1 ea N/A UD PRN PRN Reason: Consult Stop: 12/11/20 21:58 Ondansetron HCl (Ondansetron Inj 2 Mg/Ml 2 Ml Vial) 4 mg IV Q8H PRN PRN Reason: Nausea And Vomiting Stop: 12/12/20 19:01 Oxycodone HCl (Oxycodone Hcl Ir 5 Mg Tab (Immediate Release)) 5 - 10 mg PO QID PRN PRN Reason: Pain Stop: 11/26/20 00:53 Last Admin: 11/12/20 21:43 Dose: 10 mg Documented by: Polyethylene Glycol (Polyethylene (Miralax) 17 Gm Pack) 17 gm PO DAILY PRN PRN Reason: Constipation Stop: 12/11/20 21:33 Rivaroxaban (Rivaroxaban 2.5 Mg Tab) 2.5 mg PO BID PER Stop: 12/11/20 21:59 Last Admin: 11/12/20 20:33 Dose: 2.5 mg Documented by: Rosuvastatin Calcium (Rosuvastatin Calcium 20 Mg Tab) 40 mg PO HS PER Stop: 12/11/20 21:59 Last Admin: 11/12/20 20:33 Dose: 40 mg Documented by: Vitamin D (Cholecalciferol 1,000 Units 25 Mcg Tab) 5,000 units PO QAM PER Stop: 12/12/20 08:59 Last Admin: 11/12/20 08:49 Dose: 5,000 units Documented by: (1) Sleep apnea Sleep apnea type: obstructive Qualified Code(s): G47.33 - Obstructive sleep apnea (adult) (pediatric) (2) Diabetes mellitus type 2, uncontrolled Glycemic state: with hyperglycemia Qualified Code(s): E11.65 - Type 2 diabetes mellitus with hyperglycemia
[2020-11-12] MEDS: CEFEPIME 2,000 MG in SYRINGE 0 ML IV SCH (22:42)
[2020-11-13] MEDS: metroNIDAZOLE 500 MG/100 ML BAG IV SCH ×2 (03:01→12:17)
[2020-11-13] MEDS: oxyCODONE HCL IR 5 MG TAB (IMMEDIATE RELEASE) PO PRN (03:43)
[2020-11-13 06:55] LABS: BUN Creatinine Ratio 18.7 (10-20); C Reactive Protein 3.49 mg/dl (0-0.29); Calcium 9.5 mg/dl (8.5-10.1); Creatinine Clr Calc Pharmacy 48.9 ml/min; Est GFR (African American) 49.4 ml/min; Est GFR (Non-African American) 42.7 ml/min; Potassium 4.3 mmol/L (3.5-5.1)
[2020-11-13] MEDS ORDERED: INSULIN HUMAN NPH SC SCH (08:00)
[2020-11-13] MEDS: METOPROLOL TARTRATE 25 MG TAB PO SCH (09:05)
[2020-11-13] MEDS: CHOLECALCIFEROL 1,000 UNITS 25 MCG TAB PO SCH (09:05)
[2020-11-13] MEDS: ASPIRIN 81 MG ECTAB PO SCH (09:05)
[2020-11-13] MEDS: RIVAROXABAN 2.5 MG TAB PO SCH (09:05)
[2020-11-13] MEDS: INSULIN ASPART 100 UNITS/ML 3 ML PEN SC SCH ×2 (09:09→12:15)
[2020-11-13] MEDS: HYDROmorphone INJ 0.5 MG/0.5 ML SYR IV PRN ×2 (09:24→13:26)
--- NOTE | 2020-11-13 11:47 | Pharmacy Report ---
Pharmacy Glycemic Short Note 2 - Date of Service November 13, 2020 - Glycemic Short BSG Results (Last 24 hours): 11/12/20 11/12/20 11/12/20 11:52 16:42 20:10 Glucose POC Glucose 141 H 96 129 H 11/13/20 11/13/20 06:17 07:33 Glucose 89 POC Glucose 103 H OUTPATIENT ANTIDIABETIC REGIMEN: * NPH 65-80 units BID * Regular insulin - 70 units TID With meals * Metformin discontinued after admission in October ASSESSMENT: 11/13 * Pt has received 77 units of insulin over the past 24hrs * 43 units of basal with NPH * 34 units of bolus with NovoLog * BSGs 89-141 mg/dl * Fasting blood sugar 89mg/dl * Reduce NPH and loosen CF/CR at this time to prevent hypoglycemia 11/12 * 60 year old female admitted for DM foot ulcer, on IV antibiotics, known to pharmacy glycemic service from recent admission last month * Will use NPH for basal as patient uses NPH at home and NovoLog CF/CR and use similar regimen as last admission and titrate to goal PLAN FOR INPATIENT GLYCEMIC CONTROL: * Basal insulin * NPH 20 units SQ BID with meals * Bolus insulin * NovoLog per scale ACHS or Q6hrs while NPO * Goal Range: Low 110 mg/dL - High 140 mg/dL * Correction Factor: 12 mg/dL/unit * Nutritional / Prandial insulin per carb ratio of 1 unit per 4 grams CHO consumed
[2020-11-13] MEDS ORDERED: Heparin IV Adult Wt-Based Standard WITH Bolus Protocol IV STA (12:54)
[2020-11-13] MEDS ORDERED: SODIUM CHLORIDE 0.9% 1000ML 1,000 ML IV SCH (13:00)
--- NOTE | 2020-11-13 13:01 | Discharge Summary ---
Date of Service November 13, 2020 Admission HPI Per Admitting Provider She is a 60-year-old obese female with significant past medical history of type 2 diabetes on insulin, PAD, CKD stage III, ALLY, diabetic polyneuropathy, Charcot foot, chronic diastolic CHF, hypertension and hyperlipidemia was sent into ER from wound clinic this afternoon. She has been complaining of more swelling of the right foot, increasing pain and redness involving the right foot as well. She denies any fever and/or chills but she does have occasional sweating. Denies any abdominal pain nausea and or vomiting. No chest pain or palpitation. She was seen in the clinic with more redness and swelling of the foot and also coldness involving the left toes. She was sent in for admission and further evaluation by the vascular surgeon. Admission Exam Per Admitting Provider Physical Exam: Lying in bed comfortably Constitutional: well developed, well nourished and + obese; not ill appearing Eyes: PERRL, conjunctivae normal, anicteric sclerae ENMT: external ear and nose normal, oropharynx normal Neck: trachea midline, no thyromegaly Respiratory: no respiratory distress Auscultation: lungs clear to auscultation bilaterally Cardiovascular: Rate/Rhythm: regular rate and regular rhythm Heart Sounds: no murmur Extremities: + edema (Trace edema bilaterally more on the right than the left.) Right foot ulceration involving the lateral area which is bandaged. Coldness involving the right toes. Redness of the foot and adjoining part of the ankle with increasing local temperature Gastrointestinal (Abdomen): Inspection/Auscultation: + abdomen distended Percussion/Palpation: abdomen soft; abdomen nontender Musculoskeletal: No acute arthritis in any joint Neurologic: Alert, awake and oriented x3 Psychiatric: A+Ox3, euthymic affect Lymphatic: no cervical or axillary lymphadenopathy Principal Diagnosis Critical limb ischemia Right Diabetic Foot ulcer PAD with h/o recurrent critical limb ischemia Uncontrolled DMII with peripheral neuropathy Discharge Exam CONSTITUTIONAL: WNWD, vitals as above, generally well-appearing EYES: normal conjunctivae, no scleral icterus ENT: external ear and nose normal, MMM RESPIRATORY: clear to auscultation bilaterally, no crackles, rales or wheezes, normal respiratory effort CARDIOVASCULAR: regular rate and rhythm, S1 and 2 heard without murmurs, gallops or rubs, no JVD, trace bilateral swelling. GASTROINTESTINAL: soft, nontender, nondistended, no guarding MUSCULOSKELETAL: strength 5/5 throughout, head is normocephalic and atraumatic, neck supple, normal palpation of chest wall without tenderness SKIN: warm and dry, large unstageable area>2cm on right midfoot. Erythema in distal portion of legs excluding the feet bilaterally-appears slightly improved. NEUROLOGIC: CN 2-12 grossly intact, no sensory deficit, normal cognition, normal speech, no tremor PSYCHIATRIC: alert cooperative and oriented to person, place and time. Discharge Data Allergies Allergy/AdvReac Type Severity Reaction Status Date / Time amoxicillin Allergy Intermediate HIVES & N/V Verified 11/11/20 20:22 clavulanic acid Allergy Intermediate HIVES & N/V Verified 11/11/20 17:22 vancomycin Allergy Mild pruritus Verified 11/11/20 21:40 sulfamethoxazole AdvReac Severe renal Verified 11/11/20 17:22 [From Bactrim] failure trimethoprim [From Bactrim] AdvReac Severe renal Verified 11/11/20 17:22 failure lisinopril AdvReac Intermediate NAUSEA/VOMI Verified 11/11/20 17:22 TING Consultations 11/11/20 17:32 ED Decision to Admit Stat 11/11/20 18:58 Consult Vascular Surgery Routine 11/13/20 12:55 Burn CD for patient Stat Ordered Studies Laboratory Results WBC 11.21 K/uL (4.8-10.8) H 11/12/20 06:20 RBC 3.05 M/uL (4.2-5.4) L 11/12/20 06:20 Hgb 8.5 g/dL (12.0-16.0) L 11/12/20 06:20 Hct 26.0 % (37-47) L 11/12/20 06:20 MCV 85.2 fL (80-100) 11/12/20 06:20 MCH 27.9 pg (25-34) 11/12/20 06:20 MCHC 32.7 g/dL (32-36) 11/12/20 06:20 RDW Std Deviation 47.8 fL (36.4-46.3) H 11/12/20 06:20 RDW Coeff of Adelina 15.4 % (11.5-14.5) H 11/12/20 06:20 Plt Count 255 K/uL (130-400) 11/12/20 06:20 MPV 9.1 fL (7.4-10.4) 11/12/20 06:20 Immature Gran % (Auto) 0.2 % 11/12/20 06:20 Neut % (Auto) 77.0 % 11/12/20 06:20 Lymph % (Auto) 12.8 % 11/12/20 06:20 [place] % (Auto) 5.4 % 11/12/20 06:20 Eos % (Auto) 4.2 % 11/12/20 06:20 Baso % (Auto) 0.4 % 11/12/20 06:20 Neut # (Auto) 8.63 K/uL (1.4-6.5) H 11/12/20 06:20 Lymph # (Auto) 1.44 K/uL (1.2-3.4) 11/12/20 06:20 [place] # (Auto) 0.60 K/uL (0.11-0.59) H 11/12/20 06:20 Eos # (Auto) 0.47 K/uL (0-0.5) 11/12/20 06:20 Baso # (Auto) 0.05 K/uL (0-0.2) 11/12/20 06:20 Immature Gran # (Auto) 0.02 K/uL (0.00-0.02) 11/12/20 06:20 PT 11.0 Seconds (9.0-12.0) 11/11/20 17:44 INR 1.1 (0.9-1.1) 11/11/20 17:44 APTT 29.6 Seconds (21.0-31.0) 11/11/20 17:44 PTT Ratio 1.1 11/11/20 17:44 Sodium 138 mmol/L (136-145) 11/13/20 06:17 Potassium 4.3 mmol/L (3.5-5.1) D 11/13/20 06:17 Chloride 106 mmol/L (98-107) 11/13/20 06:17 Carbon Dioxide 26 mmol/L (21-32) 11/13/20 06:17 Anion Gap 6.0 (3-11) 11/13/20 06:17 BUN 25 mg/dl (7-18) H 11/13/20 06:17 Creatinine 1.34 mg/dl (0.6-1.2) H 11/13/20 06:17 Est Cr Clr Drug Dosing 48.9 ml/min 11/13/20 06:17 Est GFR ( Amer) 49.4 ml/min 11/13/20 06:17 Est GFR (Non-Af Amer) 42.7 ml/min 11/13/20 06:17 BUN/Creatinine Ratio 18.7 (10-20) 11/13/20 06:17 Glucose 89 mg/dl (70-99) 11/13/20 06:17 POC Glucose 112 mg/dl (70-99) H 11/13/20 11:42 Lactate 1.2 mmol/L (0.4-2.0) 11/11/20 17:44 Calcium 9.5 mg/dl (8.5-10.1) 11/13/20 06:17 Phosphorus 3.3 mg/dl (2.5-4.9) 11/12/20 06:20 Magnesium 2.3 mg/dl (1.8-2.4) 11/12/20 06:20 Total Bilirubin 0.2 mg/dl (0.2-1) 11/11/20 17:44 AST 21 U/L (15-37) 11/11/20 17:44 ALT 32 U/L (12-78) 11/11/20 17:44 Alkaline Phosphatase 118 U/L (45-117) H 11/11/20 17:44 C-Reactive Protein 3.49 mg/dl (0-0.29) H 11/13/20 06:17 Total Protein 7.6 gm/dl (6.4-8.2) 11/11/20 17:44 Albumin 2.9 gm/dl (3.4-5.0) L 11/11/20 17:44 Globulin 4.7 gm/dl (2.5-4.0) H 11/11/20 17:44 Albumin/Globulin Ratio 0.6 (0.9-2) L 11/11/20 17:44 Urine Color Yellow 11/12/20 06:55 Urine Appearance Clear (Clear) 11/12/20 06:55 Urine pH 6.5 (4.5-7.5) 11/12/20 06:55 Ur Specific [place] 1.018 (1.000-1.030) 11/12/20 06:55 Urine Protein 2+ (Negative) H 11/12/20 06:55 Urine Glucose (UA) 2+ (Negative) H 11/12/20 06:55 Urine Ketones Negative (Negative) 11/12/20 06:55 Urine Blood Trace (Negative) H 11/12/20 06:55 Urine Nitrite Negative (Negative) 11/12/20 06:55 Urine Bilirubin Negative (Negative) 11/12/20 06:55 Urine Urobilinogen Negative (Negative) 11/12/20 06:55 Ur Leukocyte Esterase Negative (Negative) 11/12/20 06:55 Urine WBC (Auto) 1-5 /hpf (0-5) 11/12/20 06:55 Urine RBC (Auto) 0-4 /hpf (0-4) 11/12/20 06:55 U Hyaline Cast (Auto) 1-5 /lpf (0-5) 11/12/20 06:55 U Epithel Cells (Auto) 20-30 /lpf (0-5) H 11/12/20 06:55 Urine Bacteria (Auto) Negative (Negative) 11/12/20 06:55 COVID-19 Eval Order Covid19 at [facility] 11/11/20 17:50 SARS-CoV-2 (PCR) NEGATIVE (Negative) 11/11/20 17:50 Impressions Chest X-Ray 11/11/20 17:07 XR chest 1V portable CLINICAL HISTORY: SEPSIS COMPARISON STUDY: October 20, 2019 FINDINGS: No pneumothorax. No pleural effusion. No large infiltrates or consolidative lesions are seen. Minimal prominence of pulmonary interstitium is seen within bilateral lower lungs, stable since prior. Cardiomediastinal silhouette is within normal limits in size. No significant pulmonary vascular congestion.. Aortic calcifications are seen. Osseous structures: Degenerative changes of the spine. IMPRESSION: 1. No acute pulmonary process. ACT 112: Negative or not required by law. The above report was generated using voice recognition software. It may contain grammatical, syntax or spelling errors. Electronically signed by: Nadine Leal DO 11/11/2020 6:03 PM Foot X-Ray 11/11/20 17:07 XR foot RT min 3V routine CLINICAL HISTORY: Dry gangrene right lateral foot COMPARISON: October 21, 2020 DISCUSSION: No acute fracture or dislocation seen. Mottled appearance of the all osseous structures is again seen. 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 Plantar and posterior calcaneal spurs are seen. Diffuse soft tissue edema is demonstrated. No evidence of gas or significant defect is seen within soft tissue Vascular calcifications are seen. IMPRESSION: No acute fracture or dislocation. No evidence of of soft tissue defect or soft tissue gas collection is seen to suggest ulcer and abscess. Atherosclerosis. Findings are similar to recent prior study performed on October 21, 2020. ACT 112: Negative or not required by law. The above report was generated using voice recognition software. It may contain grammatical, syntax or spelling errors. Electronically signed by: Nadine Leal DO 11/11/2020 5:59 PM Hospital Course (1) Diabetic ulcer of right foot associated with diabetes mellitus due to underlying condition, limited to breakdown of skin: (2) Diabetic peripheral neuropathy associated with type 2 diabetes mellitus: (3) PAD (peripheral artery disease): (4) Chronic kidney disease (CKD), stage III (moderate): (5) Diabetes mellitus type 2, uncontrolled: (6) Charcot's joint of foot due to diabetes: The patient is a 60-year-old uncontrolled diabetic female with known history of peripheral arterial disease who presented to the hospital with worsened diabetic foot ulcer. She was recently admitted to [facility] from 10/21/2020 to 10/29/2020 and was evaluated by vascular surgery at that time for right midfoot wound infection with cellulitis in the setting of recurrent critical limb ischemia with occluded SFA stents on duplex. She was in need of repeat right lower extremity revascularization. By this point (in October admission) she had two endovascular interventions to both her right and left SFAs which had subsequently failed despite drug-eluting balloon/arthrectomy and stenting. Additional imaging was limited secondary to acute kidney injury, which is now improved to her baseline, however the feeling was long-term sustainability was better served by vascular surgery consultation for possible femoral popliteal bypass. She went home and was followed by wound care clinic but was not able to see vascular surgery prior to her readmission on 11/11. She was on clindamycin and ciprofloxacin as outpatient but her wound continued to worsen. On readmission a foot xray did not reveal any gas in the soft tissue. A recent MRI (performed 10/23) did not reveal evidence of osteomyelitis. With her allergy profile she was placed on empiric vancomycin and cefepime and no sepsis was present. Flagyl was later added to her regimen for increased anaerobic coverage. On admission white blood cell count was 9.76 and increased to 11.2. H&H reflected mild anemia at 8.5/25 over the next 24 to 48 hours and platelets were within normal limits. Renal function was back to baseline with a creatinine of 1.34. BNP was otherwise normal at time of discharge. Glucose was within range on insulin during the hospital stay. CRP was checked at time of discharge and was 3.49 her pain increased and she developed worsening paresthesias. Pulses could not be obtained by Doppler or palpation and recurrent critical limb ischemia was a concern. She notably is on Xarelto for anticoagulation. She was transferred to [facility] for vascular evaluation. Current Inpatient Medications Acetaminophen (Acetaminophen 325 Mg Tab) 650 mg PO Q8H PRN PRN Reason: Pain Stop: 12/11/20 21:38 Aspirin (Aspirin 81 Mg Ectab) 81 mg PO QAM PER Stop: 12/12/20 08:59 Last Admin: 11/13/20 09:05 Dose: 81 mg Documented by: Collagenase (Collagenase Oint 30 Gm Tube) 1 appln TOP DAILY PRN PRN Reason: Other Stop: 12/11/20 21:33 Dextrose (Dextrose 50% 50 Ml Syringe) 25 - 50 ml IV UD PRN; Protocol PRN Reason: Hypoglycemia Protocol Stop: 12/11/20 21:59 Glucagon (Glucagon For Inj 1 Mg Vial) 1 mg IM UD PRN; Protocol PRN Reason: Hypoglycemia Protocol Stop: 12/11/20 21:59 Glucose (Glucose 40% Gel 15 Gm Tube) 15 - 30 gm PO UD PRN; Protocol PRN Reason: Hypoglycemia Protocol Stop: 12/11/20 21:59 Glucose (Glucose 10 Tabs/Tube) 4 - 8 tabs PO UD PRN; Protocol PRN Reason: Hypoglycemia Protocol Stop: 12/11/20 21:59 Heparin Sodium/Dextrose (Heparin Iv Adult Wt-Based Standard *No* Bolus Protocol) 1 ea IV Q2H PER; Protocol Stop: 12/13/20 13:59 Hydromorphone HCl (Hydromorphone Inj 0.5 Mg/0.5 Ml Syr) 0.5 mg IV Q3H PRN PRN Reason: Pain Stop: 11/26/20 00:54 Last Admin: 11/13/20 13:26 Dose: 0.5 mg Documented by: Cefepime HCl 2,000 mg/ Syringe 20 mls @ 5 mls/min IV Q24H [facility]; Protocol Stop: 11/18/20 22:59 Last Admin: 11/12/20 22:42 Dose: 5 mls/min Documented by: Daptomycin 300 mg/ Syringe 6 mls @ 3 mls/min IV Q24H [facility]; Protocol Stop: 11/18/20 21:59 Last Admin: 11/12/20 21:44 Dose: 3 mls/min Documented by: Metronidazole (Flagyl) 500 mg in 100 mls @ 100 mls/hr IV Q8H [facility]; Protocol Stop: 11/19/20 19:59 Last Infusion: 11/13/20 13:19 Dose: Infused Documented by: Sodium Chloride (Nss 1000ml) 1,000 mls @ 100 mls/hr IV .Q10H [facility] Stop: 12/13/20 12:59 Last Admin: 11/13/20 13:17 Dose: 100 mls/hr Documented by: Heparin Sodium/Dextrose (Heparin Sodium/Dextrose) 25,000 units in 500 mls @ 0.02 mls/hr IV .Q24H [facility]; Protocol Stop: 12/13/20 20:59 Insulin Aspart (Insulin Aspart 100 Units/Ml 3 Ml Pen) 0 units SC ACHS [facility] Stop: 12/11/20 21:59 Last Admin: 11/13/20 12:15 Dose: 12 units Documented by: Insulin Human NPH (Insulin Human Nph) 20 units SC BIDM [facility]; Protocol Stop: 12/13/20 07:59 Last Admin: 11/13/20 09:07 Dose: 20 units Documented by: Metoprolol Tartrate (Metoprolol Tartrate 25 Mg Tab) 25 mg PO BID [facility] Stop: 12/11/20 21:59 Last Admin: 11/13/20 09:05 Dose: 25 mg Documented by: Miscellaneous (Carbohydrates For Hypoglycemia ) 15 - 30 gm PO UD PRN PRN Reason: Hypoglycemia Treatment Stop: 12/11/20 21:59 Miscellaneous Information (Daptomycin Consult Active) 1 ea N/A UD PRN PRN Reason: Consult Stop: 12/11/20 18:49 Last Admin: 11/11/20 18:55 Dose: 1 ea Documented by: Miscellaneous Information (Pharmacy Glycemic Mgmt Consult) 1 ea N/A UD PRN PRN Reason: Consult Stop: 12/11/20 21:58 Ondansetron HCl (Ondansetron Inj 2 Mg/Ml 2 Ml Vial) 4 mg IV Q8H PRN PRN Reason: Nausea And Vomiting Stop: 12/12/20 19:01 Last Admin: 11/13/20 09:24 Dose: 4 mg Documented by: Oxycodone HCl (Oxycodone Hcl Ir 5 Mg Tab (Immediate Release)) 5 - 10 mg PO QID PRN PRN Reason: Pain Stop: 11/26/20 00:53 Last Admin: 11/13/20 03:43 Dose: 10 mg Documented by: Polyethylene Glycol (Polyethylene (Miralax) 17 Gm Pack) 17 gm PO DAILY PRN PRN Reason: Constipation Stop: 12/11/20 21:33 Rivaroxaban (Rivaroxaban 2.5 Mg Tab) 2.5 mg PO BID [facility] Stop: 12/11/20 21:59 Last Admin: 11/13/20 09:05 Dose: 2.5 mg Documented by: Rosuvastatin Calcium (Rosuvastatin Calcium 20 Mg Tab) 40 mg PO HS [facility] Stop: 12/11/20 21:59 Last Admin: 11/12/20 20:33 Dose: 40 mg Documented by: Vitamin D (Cholecalciferol 1,000 Units 25 Mcg Tab) 5,000 units PO QAM [facility] Stop: 12/12/20 08:59 Last Admin: 11/13/20 09:05 Dose: 5,000 units Documented by: Total Time Total Time Spent Total Time Spent (In Minutes): 60 Total Time Includes: Examination of the Patient, Discharge Planning, Medication Reconciliation and Communication With Other Providers Discharge Plan Discharge Items Patient Disposition: Transfer Inpatient Rehab Fac Reason For Visit: DIABETIC RT FOOT ULCER Discharge Diagnosis: Critical limb ischemia Right Diabetic Foot ulcer PAD with h/o recurrent critical limb ischemia Uncontrolled DMII with peripheral neuropathy Condition on Discharge: Serious Activity: As commented below Activity Comment: per receiving facility Non-emergency contact: Primary Care Provider Call non-emergency contact if: you have any medication questions, your symptoms worsen, your pain is not controlled, your pain is worsening, your pain is unusual for you, your pain is concerning for you, you have a fever, your wound has increased redness, your wound has increased drainage and your wound pain has increased Follow-up/Referrals: Kaila Freitas MD [Primary Care Provider] - Diet: Carb Consistent or DM2 Addtl Attending Provider Instructions: You are being transferred to [facility] for additional evaluation and treatment of your right leg. Please follow-up with your primary care provider within one week of hospital discharge. It was a pleasure taking care of you! Please call if you have any questions or problems. You can reach a [facility] hospitalist on duty at [facility] 24 hours a day by calling [phone]. Take care of yourself. Lorena Mcqueen, [employer] Hospitalist Pending Studies at Discharge: No Stand-Alone Forms: My [facility] Skilled Items Patient informed of condition?: Yes DNR: No Discharge Level of Care: Other Communicable Disease: No Discharge Prognosis: Stable Lines: Peripheral IV Urinary Catheter: No Medications and DC Order Prescriptions: No Action Ozempic 0.25 mg or 0.5 mg(2 mg/1.5 mL) pen injector 0.25 mg subcut WK RF: 0 Xarelto 2.5 mg tablet 2.5 mg PO BID Qty: 180 RF: 3 Novolin R Regular U-100 Insuln 100 unit/mL Solution See Rx Instructions .ROUTE .COMPLEX RF: 0 rosuvastatin 40 mg Tablet 40 mg PO HS RF: 0 polyethylene glycol 3350 [Miralax] 17 gram Powder In Packet 17 g PO DAILY PRN (Reason: Constipation) RF: 0 metoprolol tartrate 25 mg tablet 25 mg PO BID RF: 0 cholecalciferol (vitamin D3) [Vitamin D3] 5,000 unit Tablet 5,000 units PO QAM RF: 0 aspirin 81 mg Tablet,Delayed Release (Dr/Ec) 81 mg PO QAM RF: 0 magnesium oxide 500 mg Tablet 500 mg PO QAM RF: 0 Novolin N Flexpen 100 unit/mL (3 mL) Insulin Pen See Rx Instructions .ROUTE .COMPLEX RF: 0 Santyl 250 unit/gram ointment 1 applic topical DAILY PRN (Reason: Other) RF: 0 ciprofloxacin HCl 250 mg Tablet 750 mg PO Q24H 14 Days Qty: 42 RF: 0 clindamycin HCl 300 mg capsule 300 mg PO QID 14 Days Qty: 56 RF: 0 tramadol 50 mg tablet 50 mg PO Q8H PRN (Reason: Pain) Qty: 15 RF: 0 acetaminophen 650 mg Tablet Extended Release 650 mg PO Q8H PRN (Reason: Pain) RF: 0 Admission Data Admit Date/Time: 11/11/20 18:37 Attending Provider: Lorena Mcqueen Admit Provider: Tanner Forrest Primary Care Provider: Kaila Freitas Other Providers: Tanner Forrest ; Toni Le
[2020-11-13] MEDS ORDERED: HEPARIN 25000 UNIT/500 ML D5W IV ONE (13:03)
[2020-11-13] MEDS ORDERED: HEPARIN SOD (PORCINE) 1000 UNIT/ML IV ONE (13:10)
[2020-11-13] MEDS ORDERED: HEPARIN SODIUM/DEXTROSE 25,000 UNITS/500 ML BAG IV SCH ×2 (13:10→21:00)
[2020-11-13] MEDS ORDERED: Heparin IV Adult Wt-Based Standard *NO* Bolus Protocol IV SCH (14:00)
--- NOTE | 2020-11-14 09:52 | Pre Anesthesia Assessment ---
Date of Service November 14, 2020 Pre Sedation Assessment Vital Signs Temp Pulse Pulse Resp BP BP Pulse Ox 11/13/20 13:19 36.8 C 66 71 16 122/67 132/69 98 11/13/20 11:32 36.8 C 66 16 122/67 98 Cardiovascular RRR, no murmur, no edema Pre-Sedation Airway Assessment Smoking Status: Former smoker Hx Sleep Apnea: No Hx Difficult Intubation: No Notes The planned sedation has been discussed with the patient. Informed Consent was obtained. I have identified the patient, determined the appropriateness of sedation and have assessed the patient immediately prior to the procedure. All medicine(s) and interventions are by my order.
--- NOTE | 2020-11-25 10:30 | Consultation ---
Date of Consultation November 25, 2020 History of Present Illness Attending Physician: Lorena Mcqueen DO History of Present Illness Patient transferred to tertiary care center before she could be seen. Allergies Allergy/AdvReac Type Severity Reaction Status Date / Time amoxicillin Allergy Intermediate HIVES & N/V Verified 11/11/20 20:22 clavulanic acid Allergy Intermediate HIVES & N/V Verified 11/11/20 17:22 vancomycin Allergy Mild pruritus Verified 11/11/20 21:40 sulfamethoxazole AdvReac Severe renal Verified 11/11/20 17:22 [From Bactrim] failure trimethoprim [From Bactrim] AdvReac Severe renal Verified 11/11/20 17:22 failure lisinopril AdvReac Intermediate NAUSEA/VOMI Verified 11/11/20 17:22 TING Home Medications Medication Instructions Recorded Confirmed Type cholecalciferol (vitamin D3) 5,000 units PO QAM 09/16/18 11/11/20 History [Vitamin D3] metoprolol tartrate 25 mg PO BID 09/16/18 11/11/20 History Novolin R Regular U-100 Insuln See Rx Instructions .ROUTE .COMPLEX 01/15/19 11/11/20 History rosuvastatin 40 mg PO HS 01/15/19 11/11/20 History aspirin 81 mg PO QAM 06/24/19 11/11/20 History polyethylene glycol 3350 [Miralax] 17 g PO DAILY PRN 02/05/20 11/11/20 History Novolin N Flexpen See Rx Instructions .ROUTE .COMPLEX 04/06/20 11/11/20 History magnesium oxide 500 mg PO QAM 04/06/20 11/11/20 History rivaroxaban 2.5 mg tablet 2.5 mg PO BID #180 tab 06/15/20 11/11/20 Rx acetaminophen 650 mg PO Q8H PRN 10/07/20 11/11/20 History Santyl 1 applic TOPICAL DAILY PRN 10/21/20 11/11/20 History tramadol 50 mg PO Q8H PRN #15 tab 10/29/20 11/11/20 Rx semaglutide 0.25 mg SUBCUT WK ml 11/04/20 11/11/20 History Patient History Medical History (Updated 11/14/20 @ 00:05 by Background Daemon) Acute kidney injury superimposed on CKD Anemia Cellulitis Charcot's joint of foot due to diabetes Chronic back pain Chronic kidney disease (CKD), stage III (moderate) monitoring. Follows with Nephrology [facility]. Chronic venous insufficiency Clostridium difficile colitis history (~11/2016) -- treated no problems since. Diabetes mellitus type 2, uncontrolled Diabetic foot ulcer associated with type 2 diabetes mellitus, with fat layer exposed Diabetic ulcer of right foot associated with diabetes mellitus due to underlying condition, limited to breakdown of skin Diabetic ulcer of right foot with fat layer exposed Dyslipidemia Elevated blood sugar Hypertension Insulin-requiring or dependent type II diabetes mellitus Morbid obesity On anticoagulant therapy Osteoarthritis PAD (peripheral artery disease) Sleep apnea no cpap Ulcerated, foot Venous stasis ulcer current right foot wound, following with wound clinic Surgical History H/O vascular surgery bilateral lower legs, left leg vascular stent (August 2019/November 2019/December 2019) Dr. Cr [facility] History of cholecystectomy History of esophagogastroduodenoscopy (EGD) History of left cataract surgery History of lumpectomy of right breast benign History of tooth extraction S/P epidural steroid injection Status post colonoscopy "2012- 2 hyperplastic + 1 adenomatous polyps; 2016- normal" Status post tonsillectomy Status post tubal ligation Family History Mother Rheumatoid arthritis Father Emphysema of lung Peripheral artery disease Other No family history of adverse response to anesthesia Denies family history of CAD (coronary atherosclerotic disease) Social History Smoking Status: Former smoker Years Smoked: 45; Cigarettes Per Day: 1.5-2ppd; Second Hand Exposure: No; Hx Alcohol Use: No Hx Substance Use: No Preferred Language: [place] Communication Ability: Effective School Bus Attendant Required: No Beliefs That Will Affect Care: None marital status: Current Living Situation: Spouse and Family Current Living Situation Comment: reports her son is also in poor health at this time current occupational status: disabled other: previous worked at [employer] Feels Safe at Home: Yes Assistive Devices: Cane, Denture - Upper, Denture - Lower and Glasses
== END 2020-11-13 13:30 | disposition short-term general hospital (02) | DRG 300 ==
LOC: ED 16:47 → 2W 18:37 → SUATTDRO 18:37 → 2W 20:35

== ENCOUNTER 2021-01-30 13:10 | Inpatient (IN) ==
[2021-01-30 15:43] LABS: Hematocrit (blood only) 20.6 % (37-47); Hemoglobin 6.3 g/dL (12.0-16.0); Mean Corpuscular Hemoglobin 24.2 pg (25-34); Mean Corpuscular Hgb Conc 30.6 g/dL (32-36); Mean Corpuscular Volume 79.2 fL (80-100); Mean Platelet Volume 8.8 fL (7.4-10.4); Platelet Count 530 K/uL (130-400); RDW Coefficient of Variation 17.4 % (11.5-14.5); RDW Standard Deviation 49.9 fL (36.4-46.3); White Blood Count 17.03 K/uL (4.8-10.8)
[2021-01-30 15:45] LABS: INR 1.3 (0.9-1.1); Partial Thromboplastin Ratio 1.4; Partial Thromboplastin Time 36.2 Seconds (21.0-31.0)
[2021-01-30 16:07] LABS: Basophils # (auto) 0.03 K/uL (0-0.2); Basophils % (auto) 0.2 %; Eosinophils # (auto) 0.04 K/uL (0-0.5); Eosinophils % (auto) 0.2 %; Hypochromasia Present; Immature Granulocytes % (auto) 0.6 %; Lymphocytes # (auto) 2.01 K/uL (1.2-3.4); Lymphocytes % (auto) 11.8 %; Monocytes # (auto) 1.28 K/uL (0.11-0.59); Monocytes % (auto) 7.5 %; Neutrophils # (auto) 13.57 K/uL (1.4-6.5); Neutrophils % (auto) 79.7 %; Polychromasia 1+
[2021-01-30 16:09] LABS: Alanine Aminotransferase 23 U/L (12-78); Albumin Level 2.1 gm/dl (3.4-5.0); Aspartate Aminotransferase 23 U/L (15-37); BUN Creatinine Ratio 17.2 (10-20); Blood Urea Nitrogen 29 mg/dl (7-18); Calcium 9.9 mg/dl (8.5-10.1); Carbon Dioxide 29 mmol/L (21-32); Chloride 95 mmol/L (98-107); Est GFR (African American) 37.3 ml/min; Est GFR (Non-African American) 32.2 ml/min; Glucose 266 mg/dl (70-99); Potassium 4.2 mmol/L (3.5-5.1); Sodium 131 mmol/L (136-145)
[2021-01-30 16:12] LABS: Albumin Globulin Ratio 0.3 (0.9-2); Alkaline Phosphatase 163 U/L (45-117); Bilirubin,Total 0.4 mg/dl (0.2-1); Globulin 6.2 gm/dl (2.5-4.0); Total Protein 8.3 gm/dl (6.4-8.2)
--- NOTE | 2021-01-30 16:49 | Emergency Department Note ---
Impression & Plan Vaginal bleeding, Peripheral arterial disease, Anemia ED Provider Note NAME: WENDI DAMON AGE: 60 SEX: F : 1960 ARRIVES VIA: Walk-In INFORMANT: Patient, ED PROVIDER(S): Daniel Dover MD Chief Complaint: Vaginal bleeding HPI: Patient does present with concern for vaginal bleeding which began on . The patient does have a known history of PAD for which she states that she has been on Eliquis. The patient states that she is certain that it is vaginal bleeding and not GI bleeding. The patient states she has not had any vaginal bleeding in decades. The patient denies any recent trauma to the area. The patient denies any abdominal pain. Patient has the bleeding is been fairly consistent going maybe through 2-3 depends per day since . Patient denies any nausea or vomiting. Patient denies any alcohol tobacco or drug use. Nothing has made the bleeding any better or worse at this time. The patient last took her Eliquis this morning. Patient's states that she is vaccinated for Covid. ROS: See HPI for pertinent positives and negatives. A total of 10 systems were reviewed and otherwise negative. Past medical history: See below Surgical history: See below Social history: See below Physical Exam: GENERAL: Chronically ill in appearance. NAD, wearing a mask, non-toxic. EYE EXAM: Normal conjunctiva. PERRL, no anisocoria and EOM's grossly intact w/o pain. NECK: Supple, no nuchal rigidity, no adenopathy, non-tender. No signs of meningismus. LUNGS: Clear to auscultation. Normal chest wall mechanics. HEART: NSR, no MRG. ABDOMEN: Abdomen soft, non-tender, normo-active bowel sounds, no masses, no rebound or guarding. BACK: No CVA TTP. SKIN: No rashes and no bruising. UPPER EXTREMITIES: Upper extremities are grossly normal. LOWER EXTREMITIES: Right lower extremity foot in a bandage, sensate distally. NEURO EXAM: A&O x3, cranial nerves II-XII grossly intact, normal speech, moves all 4 extremities on command w/o issue. Differential diagnoses: Etiologies such as threatened AB, miscarriage, ectopic , dysfunction uterine bleeding, bleeding dyscrasia, trauma, infection, as well as others were entertained. Course: Patient was seen and evaluated the bedside. Full history physical exam was performed. Imaging Studies: See Below Cardiac monitoring: An order was placed for continuous cardiac monitoring. The monitor shows a rate of 80 with sinus rhythm. MDM: Patient did present with concern for vaginal bleeding. The patient did have triage blood work completed and the patient was noted to have a hemoglobin less than 7. The patient's baseline runs anywhere from 8-9. The patient is on Eliquis. The patient was consented for blood and ordered 2 units PRBCs. Patient also did have an ultrasound. Does show likely thickened endometrium alt kat it is somewhat difficult study. I did speak with the on-call hospitalist REBEL Mar. The patient was admitted by Dr. Coleman. I did briefly discussed the patient with Dr. Rudolph, who will consult on the matter. Patient does have a white count of 17. The patient's kidney function with creatinine 1.6. Covid negative. Critical Care: I have personally spent 180 minutes of critical care time in direct management of this patient. This includes bedside care, interpretation of diagnostic studies, and testing, discussion with consultants, patient, and family members, and other require inpatient management activities. This 180 minutes is in excess of all separately billable procedures. Past Med/Surg History Medical History Acute kidney injury superimposed on CKD Anemia Cellulitis Charcot's joint of foot due to diabetes Chronic back pain Chronic kidney disease (CKD), stage III (moderate) monitoring. Follows with Nephrology [facility]. Chronic venous insufficiency Clostridium difficile colitis history (~11/2016) -- treated no problems since. Diabetes mellitus type 2, uncontrolled Diabetic foot ulcer associated with type 2 diabetes mellitus, with fat layer exposed Diabetic ulcer of right foot associated with diabetes mellitus due to underlying condition, limited to breakdown of skin Diabetic ulcer of right foot with fat layer exposed Dyslipidemia Elevated blood sugar Hypertension Insulin-requiring or dependent type II diabetes mellitus Morbid obesity On anticoagulant therapy Osteoarthritis PAD (peripheral artery disease) S/P right lower extremity angiogram, mechanical thrombectomy of pre-existing superficial femoral artery stent usin Vidal [place]ries Omni catheter, balloon angioplasty of the superficial femoral artery stent using 5 X 200 mm [place] balloon, balloon angioplasty of the superficial femoral artery 6 X 250 mm IN.PACT drug coated balloon, stent angioplasty of the superficial femoral artery using 5 X 150 mm INOVA bare metal stent, and debridement of the right lateral foot on 11/14/[address] Lomeli. S/P bilateral SFA stenting Sleep apnea no cpap Ulcerated, foot Venous stasis ulcer current right foot wound, following with wound clinic Surgical History H/O vascular surgery bilateral lower legs, left leg vascular stent (August 2019/November 2019/December 2019) Dr. Cr [facility] History of cholecystectomy History of esophagogastroduodenoscopy (EGD) History of left cataract surgery History of lumpectomy of right breast benign History of tooth extraction S/P epidural steroid injection Status post colonoscopy "2012- 2 hyperplastic + 1 adenomatous polyps; 2016- normal" Status post tonsillectomy Status post tubal ligation Family History Mother Rheumatoid arthritis Father Emphysema of lung Peripheral artery disease Other No family history of adverse response to anesthesia Denies family history of CAD (coronary atherosclerotic disease) Social History Smoking Status: Never smoker Years Smoked: 45; Cigarettes Per Day: 1.5-2ppd; Second Hand Exposure: No; Hx Alcohol Use: No Hx Substance Use: No Preferred Language: Luxembourger Communication Ability: Effective 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 Beliefs That Will Affect Care: None marital status: Current Living Situation: Spouse and Family Current Living Situation Comment: reports her son is also in poor health at this time current occupational status: disabled other: previous worked at [employer] Feels Safe at Home: Yes Assistive Devices: Cane, Denture - Upper, Denture - Lower and Glasses Allergies Allergies Allergy/AdvReac Type Severity Reaction Status Date / Time amoxicillin Allergy Intermediate HIVES & N/V Verified 01/30/21 17:49 clavulanic acid Allergy Intermediate HIVES & N/V Verified 01/30/21 17:49 vancomycin Allergy Mild pruritus Verified 01/30/21 17:49 sulfamethoxazole AdvReac Severe renal Verified 01/30/21 17:49 [From Bactrim] failure trimethoprim [From Bactrim] AdvReac Severe renal Verified 01/30/21 17:49 failure lisinopril AdvReac Intermediate NAUSEA/VOMI Verified 01/30/21 17:49 TING Home Meds Home Medications Medication Instructions Recorded Confirmed cholecalciferol (vitamin D3) 125 5,000 units PO QAM 09/16/18 01/30/21 mcg (5,000 unit) tablet (Vitamin D3) metoprolol tartrate 25 mg tablet 25 mg PO BID 09/16/18 01/30/21 insulin regular human 100 unit/mL 70 unit SUBCUT AMPM 01/15/19 01/30/21 injection solution (Novolin R Regular U-100 Insulin) rosuvastatin 40 mg tablet 40 mg PO HS 01/15/19 01/30/21 aspirin 81 mg tablet,delayed 81 mg PO QAM 06/24/19 01/30/21 release polyethylene glycol 3350 17 gram 17 g PO DAILY PRN 02/05/20 01/30/21 oral powder packet (Miralax) insulin NPH isoph U-100 human 100 0 unit SUBCUT DIRECTED 04/06/20 01/30/21 unit/mL (3 mL) subcutaneous pen (Novolin N Flexpen) magnesium oxide 500 mg tablet 500 mg PO QAM 04/06/20 01/30/21 acetaminophen 650 mg 650 mg PO Q8H PRN 10/07/20 01/30/21 tablet,extended release apixaban 5 mg tablet (Eliquis) 5 mg PO BID 01/30/21 01/30/21 clopidogrel 75 mg tablet 75 mg PO DAILY 01/30/21 01/30/21 ferrous sulfate 325 mg PO DAILY 01/30/21 01/30/21 furosemide 40 mg tablet 80 mg PO UD 01/30/21 01/30/21 Previous Rx's Medication Instructions Recorded tramadol 50 mg tablet 50 mg PO Q8H PRN #15 tab 10/29/20 Results & Data (ED) Vital Signs Vital Signs - 24 hr 01/30/21 13:28 01/30/21 16:28 01/30/21 16:35 Temperature 36.6 C Temperature Source Temporal Artery Scan Pulse Rate 90 77 74 Pulse Rate [Right Finger] 78 Pulse Rate from SpO2 Sensor 80 Pulse Rhythm Regular Pulse Rhythm [Right Finger] Regular Pulse Strength Pulse Strength [Right Finger] Normal Respiratory Rate 18 14 18 Respiratory Effort / Characteristics Non-Labored Respiratory Depth Normal Respiratory Pattern Regular Blood Pressure 118/53 L 133/52 L Blood Pressure [Right Arm] 133/52 L Blood Pressure Mean 74 79 Blood Pressure Mean [Right Arm] 79 Blood Pressure Position Blood Pressure Position [Right Arm] Lying Pulse Oximetry 98 99 98 Oxygen Delivery Method Room Air Room Air Sepsis Recent Fever Within 48 Hours No Sepsis New/Unexplained Change in Mental Status No Sepsis Action Taken by Nursing No Action Required 01/30/21 17:46 01/30/21 18:34 01/30/21 18:54 Temperature 36.9 C 36.6 C Temperature Source Oral Oral Pulse Rate 75 73 Pulse Rate [Right Finger] Pulse Rate from SpO2 Sensor 76 Pulse Rhythm Regular Regular Pulse Rhythm [Right Finger] Pulse Strength Normal Normal Pulse Strength [Right Finger] Respiratory Rate 19 17 Respiratory Effort / Characteristics Respiratory Depth Respiratory Pattern Blood Pressure 102/61 103/50 L 116/51 L Blood Pressure [Right Arm] Blood Pressure Mean 74 67 72 Blood Pressure Mean [Right Arm] Blood Pressure Position Sitting Sitting Blood Pressure Position [Right Arm] Pulse Oximetry 97 97 98 Oxygen Delivery Method Sepsis Recent Fever Within 48 Hours Sepsis New/Unexplained Change in Mental Status Sepsis Action Taken by Nursing 01/30/21 19:10 01/30/21 19:40 01/30/21 20:40 Temperature 36.6 C 36.8 C 36.9 C Temperature Source Oral Oral Oral Pulse Rate 75 70 80 Pulse Rate [Right Finger] Pulse Rate from SpO2 Sensor Pulse Rhythm Pulse Rhythm [Right Finger] Pulse Strength Pulse Strength [Right Finger] Respiratory Rate 18 18 20 Respiratory Effort / Characteristics Respiratory Depth Respiratory Pattern Blood Pressure 103/49 L 110/56 L 140/59 L Blood Pressure [Right Arm] Blood Pressure Mean 67 74 86 Blood Pressure Mean [Right Arm] Blood Pressure Position Lying Lying Blood Pressure Position [Right Arm] Pulse Oximetry 97 95 98 Oxygen Delivery Method Sepsis Recent Fever Within 48 Hours Sepsis New/Unexplained Change in Mental Status Sepsis Action Taken by [facility] Medications Current Medication List: was personally reviewed by me Laboratory Data Attestation: I reviewed the patient's lab results. Result diagrams: 01/30/21 15:21 01/30/21 15:21 Lab Results 01/30/21 01/30/21 01/30/21 Range/Units 15:21 15:21 15:21 WBC 17.03 H (4.8-10.8) K/uL RBC 2.60 L (4.2-5.4) M/uL Hgb 6.3 L* (12.0-16.0) g/dL Hct 20.6 L* (37-47) % MCV 79.2 L (80-100) fL MCH 24.2 L (25-34) pg MCHC 30.6 L (32-36) g/dL RDW Std Deviation 49.9 H (36.4-46.3) fL RDW Coeff of Adelina 17.4 H (11.5-14.5) % Plt Count 530 H (130-400) K/uL MPV 8.8 (7.4-10.4) fL Immature Gran % (Auto) 0.6 % Neut % (Auto) 79.7 % Lymph % (Auto) 11.8 % [place] % (Auto) 7.5 % Eos % (Auto) 0.2 % Baso % (Auto) 0.2 % Neut # (Auto) 13.57 H (1.4-6.5) K/uL Lymph # (Auto) 2.01 (1.2-3.4) K/uL [place] # (Auto) 1.28 H (0.11-0.59) K/uL Eos # (Auto) 0.04 (0-0.5) K/uL Baso # (Auto) 0.03 (0-0.2) K/uL Immature Gran # (Auto) 0.10 H (0.00-0.02) K/uL Polychromasia 1+ Hypochromasia Present PT 13.0 H (9.0-12.0) Seconds INR 1.3 H (0.9-1.1) APTT 36.2 H (21.0-31.0) Seconds PTT Ratio 1.4 Sodium (136-145) mmol/L Potassium (3.5-5.1) mmol/L Chloride (98-107) mmol/L Carbon Dioxide (21-32) mmol/L Anion Gap (3-11) BUN (7-18) mg/dl Creatinine (0.6-1.2) mg/dl Est Cr Clr Drug Dosing Est GFR ( Amer) ml/min Est GFR (Non-Af Amer) ml/min BUN/Creatinine Ratio (10-20) Glucose (70-99) mg/dl Calcium (8.5-10.1) mg/dl Total Bilirubin (0.2-1) mg/dl AST (15-37) U/L ALT (12-78) U/L Alkaline Phosphatase (45-117) U/L Total Protein (6.4-8.2) gm/dl Albumin (3.4-5.0) gm/dl Globulin (2.5-4.0) gm/dl Albumin/Globulin Ratio (0.9-2) HCG, Quant mIU/ml COVID-19 Eval Order SARS-CoV-2 (PCR) (Negative) Blood Type O Negative Blood Type Recheck Antibody Screen NEGATIVE Crossmatch See Detail 01/30/21 01/30/21 01/30/21 Range/Units 15:21 15: 17:32 WBC (4.8-10.8) K/uL RBC (4.2-5.4) M/uL Hgb (12.0-16.0) g/dL Hct (37-47) % MCV (80-100) fL MCH (25-34) pg MCHC (32-36) g/dL RDW Std Deviation (36.4-46.3) fL RDW Coeff of Adelina (11.5-14.5) % Plt Count (130-400) K/uL MPV (7.4-10.4) fL Immature Gran % (Auto) % Neut % (Auto) % Lymph % (Auto) % [place] % (Auto) % Eos % (Auto) % Baso % (Auto) % Neut # (Auto) (1.4-6.5) K/uL Lymph # (Auto) (1.2-3.4) K/uL [place] # (Auto) (0.11-0.59) K/uL Eos # (Auto) (0-0.5) K/uL Baso # (Auto) (0-0.2) K/uL Immature Gran # (Auto) (0.00-0.02) K/uL Polychromasia Hypochromasia PT (9.0-12.0) Seconds INR (0.9-1.1) APTT (21.0-31.0) Seconds PTT Ratio Sodium 131 L (136-145) mmol/L Potassium 4.2 (3.5-5.1) mmol/L Chloride 95 L (98-107) mmol/L Carbon Dioxide 29 (21-32) mmol/L Anion Gap 7.0 (3-11) BUN 29 H (7-18) mg/dl Creatinine 1.69 H (0.6-1.2) mg/dl Est Cr Clr Drug Dosing Not Reportable Est GFR ( Amer) 37.3 ml/min Est GFR (Non-Af Amer) 32.2 ml/min BUN/Creatinine Ratio 17.2 (10-20) Glucose 266 H (70-99) mg/dl Calcium 9.9 (8.5-10.1) mg/dl Total Bilirubin 0.4 (0.2-1) mg/dl AST 23 (15-37) U/L ALT 23 (12-78) U/L Alkaline Phosphatase 163 H (45-117) U/L Total Protein 8.3 H (6.4-8.2) gm/dl Albumin 2.1 L (3.4-5.0) gm/dl Globulin 6.2 H (2.5-4.0) gm/dl Albumin/Globulin Ratio 0.3 L (0.9-2) HCG, Quant < 1 mIU/ml COVID-19 Eval Order SARS-CoV-2 (PCR) (Negative) Blood Type Blood Type Recheck O Negative Antibody Screen Crossmatch 01/30/21 01/30/21 Range/Units 17:35 17:35 WBC (4.8-10.8) K/uL RBC (4.2-5.4) M/uL Hgb (12.0-16.0) g/dL Hct (37-47) % MCV (80-100) fL MCH (25-34) pg MCHC (32-36) g/dL RDW Std Deviation (36.4-46.3) fL RDW Coeff of Adelina (11.5-14.5) % Plt Count (130-400) K/uL MPV (7.4-10.4) fL Immature Gran % (Auto) % Neut % (Auto) % Lymph % (Auto) % [place] % (Auto) % Eos % (Auto) % Baso % (Auto) % Neut # (Auto) (1.4-6.5) K/uL Lymph # (Auto) (1.2-3.4) K/uL [place] # (Auto) (0.11-0.59) K/uL Eos # (Auto) (0-0.5) K/uL Baso # (Auto) (0-0.2) K/uL Immature Gran # (Auto) (0.00-0.02) K/uL Polychromasia Hypochromasia PT (9.0-12.0) Seconds INR (0.9-1.1) APTT (21.0-31.0) Seconds PTT Ratio Sodium (136-145) mmol/L Potassium (3.5-5.1) mmol/L Chloride (98-107) mmol/L Carbon Dioxide (21-32) mmol/L Anion Gap (3-11) BUN (7-18) mg/dl Creatinine (0.6-1.2) mg/dl Est Cr Clr Drug Dosing Est GFR ( Amer) ml/min Est GFR (Non-Af Amer) ml/min BUN/Creatinine Ratio (10-20) Glucose (70-99) mg/dl Calcium (8.5-10.1) mg/dl Total Bilirubin (0.2-1) mg/dl AST (15-37) U/L ALT (12-78) U/L Alkaline Phosphatase (45-117) U/L Total Protein (6.4-8.2) gm/dl Albumin (3.4-5.0) gm/dl Globulin (2.5-4.0) gm/dl Albumin/Globulin Ratio (0.9-2) HCG, Quant mIU/ml COVID-19 Eval Order Covid19 at [facility] SARS-CoV-2 (PCR) NEGATIVE (Negative) Blood Type Blood Type Recheck Antibody Screen Crossmatch Imaging Data Radiologist's Impression: Pelvis Ultrasound 01/30/21 17:09 PELVIC ULTRASOUND, TRANSABDOMINAL AND TRANSVAGINAL HISTORY: vaginal bleeding COMPARISON: Abdomen and pelvis CT 10/21/2020. FINDINGS: Transvaginal scanning was performed for better delineation of the endo metrium. Uterus: 5.2 x 2.9 x 3.3 cm. Endometrial stripe: Difficult to assess due to the position of the uterus which appears to be heterogeneous and measures 7 mm. Right ovary: Obscured by overlying bowel gas. Left ovary: Obscured by overlying bowel gas. Miscellaneous:No pelvic free fluid. IMPRESSION: 1. The endometrium was difficult to assess due to the position of the uterus but appears to be slightly heterogeneous and measures 7 mm. This would be considered abnormal in a postmenopausal female. Therefore, follow-up nonemergent gynecologic consultation recommended for further evaluation. 2. The ovaries were obscured by overlying bowel gas. ACT 112: Positive. There are findings on this exam that require communication between the performing entity and the patient following Patient Test Result Information Act ([place] Act 112) guidelines. Electronically signed by: Domo Morales M.D. 01/30/2021 6:32 PM Discharge Plan Visit Data Chief Complaint: Vaginal Bleeding Stated Complaint: BLEEDING FROM BELOW, LIGHT HEADED ED Provider: Daniel Dover Discharge Problem: Vaginal bleeding, Peripheral arterial disease, Anemia Patient Disposition: Admitted As Inpatient Forms Stand Alone Forms: [facility] Prescriptions Prescriptions: No Action Novolin R Regular U-100 Insuln 100 unit/mL Solution 70 unit subcut AMPM RF: 0 rosuvastatin 40 mg Tablet 40 mg PO HS RF: 0 polyethylene glycol 3350 [Miralax] 17 gram Powder In Packet 17 g PO DAILY PRN (Reason: Constipation) RF: 0 metoprolol tartrate 25 mg tablet 25 mg PO BID RF: 0 cholecalciferol (vitamin D3) [Vitamin D3] 5,000 unit Tablet 5,000 units PO QAM RF: 0 aspirin 81 mg Tablet,Delayed Release (Dr/Ec) 81 mg PO QAM RF: 0 magnesium oxide 500 mg Tablet 500 mg PO QAM RF: 0 Novolin N Flexpen 100 unit/mL (3 mL) Insulin Pen 0 unit subcut DIRECTED RF: 0 tramadol 50 mg tablet 50 mg PO Q8H PRN (Reason: Pain) Qty: 15 RF: 0 furosemide 40 mg tablet 80 mg PO UD RF: 0 clopidogrel 75 mg tablet 75 mg PO DAILY RF: 0 Eliquis 5 mg tablet 5 mg PO BID RF: 0 ferrous sulfate 325 mg 325 mg PO DAILY RF: 0 acetaminophen 650 mg Tablet Extended Release 650 mg PO Q8H PRN (Reason: Pain) RF: 0 Referrals Referrals: Kaila Freitas MD [Primary Care Provider] -
[2021-01-30] MEDS ORDERED: SODIUM CHLORIDE 0.9% 250 ML IV PRN ×2 (16:50→22:24)
--- NOTE | 2021-01-30 18:33 | Ultrasound Report ---
PELVIC ULTRASOUND, TRANSABDOMINAL AND TRANSVAGINAL HISTORY: vaginal bleeding COMPARISON: Abdomen and pelvis CT 10/21/2020. FINDINGS: Transvaginal scanning was performed for better delineation of the endometrium. Uterus: 5.2 x 2.9 x 3.3 cm. Endometrial stripe: Difficult to assess due to the position of the uterus which appears to be heterog eneous and measures 7 mm. Right ovary: Obscured by overlying bowel gas. Left ovary: Obscured by overlying bowel gas. Miscellaneous:No pelvic free fluid. IMPRESSION: 1. The endometrium was difficult to assess due to the position of the uterus but appears to be slight ly heterogeneous and measures 7 mm. This would be considered abnormal in a postmenopausal female. The refore, follow-up nonemergent gynecologic consultation recommended for further evaluation. 2. The ovaries were obscured by overlying bowel gas. ACT 112: Positive. There are findings on this exam that require communication between the performing entity and the patient following Patient Test Result Information Act ([place] Act 112) guidelines. Electronically signed by: Domo Morales M.D. 01/30/2021 6:32 PM
[2021-01-30] MEDS ORDERED: NITROGLYCERIN SL 0.4 MG/TAB TAB SL PRN (22:24)
[2021-01-30] MEDS ORDERED: ONDANSETRON INJ 2 MG/ML 2 ML VIAL IV PRN (22:24)
[2021-01-30] MEDS ORDERED: POLYETHYLENE (MIRALAX) 17 GM PACK PO PRN (22:24)
[2021-01-30 22:32] LABS: Appearance Urine Clear (Clear); Bacteria Urine Automated Negative (Negative); Bilirubin Urine Negative (Negative); Blood Urine 3+ (Negative); Color Urine Yellow; Epithelial Cell Urine Auto >30 /lpf (0-5); Glucose Urine UA Negative (Negative); Ketones Urine Negative (Negative); Leukocyte Esterase Urine Negative (Negative); Nitrite Urine Negative (Negative); Protein Urine 1+ (Negative); RBC Urine Automated >30 /hpf (0-4); Specific Gravity Urine 1.013 (1.000-1.030); Urobilinogen Urine Negative (Negative)
--- NOTE | 2021-01-30 23:13 | History and Physical Report ---
DATE OF ADMISSION: 01/30/2021. CHIEF COMPLAINT: Vaginal bleeding. HISTORY OF PRESENT ILLNESS: This is a 60-year-old female with past medical history significant for type 2 diabetes, diabetic polyneuropathy, diabetic Charcot foot, diabetic right mid foot ulcer, dyslipidemia, diabetic retinopathy, obstructive sleep apnea, currently not using any CPAP, history of peripheral vascular disease and multiple procedures to lower extremities, chronic diastolic CHF, hypertension, morbid obesity, reflux esophagitis, chronic kidney disease stage III, generalized osteoarthritis of multiple sites, insomnia, varicose veins, who presents with vaginal bleeding. The patient says since last few days she is having bleeding from her vagina and she has been dizzy. Initially bleeding was lot, but getting better. Now has some blood clots. Denies any abdominal pain. Normal bowel movements. Yesterday she had an episode of vomiting. Today, there is some nausea, but currently okay. Denies any chest pain. No shortness of breath, no cough, no fevers, no headache, no blurred visions, no earache, no runny nose, no sore throat. She says the right midfoot wound is getting better. She recently in [place] had a procedure. On 11/14/2020, she underwent right lower extremity angiogram, mechanical thrombectomy of preexisting superficial femoral artery stent , balloon angioplasty of the superficial femoral artery stent, balloon angioplasty of superficial femoral artery drug-coated balloon, stent angioplasty of the superficial femoral artery using bare metal stent and debridement of the right lateral foot by Dr. Lomeli, vascular surgery. Since the procedure, the patient says the wound is getting better. She follows with Dr. Lomeli and changes dressing herself at home daily. She lives with her and family and she ambulates with a walker. Appetite is okay. Sleeps okay. Currently, resting comfortably and hemodynamically stable. Her hemoglobin was found to be 6.3. She is getting blood transfusion in the ER. ALLERGIES: AUGMENTIN, VANCOMYCIN, BACTRIM, LISINOPRIL. PAST MEDICAL HISTORY: As mentioned above. PAST SURGICAL HISTORY: Amputation of the right toe, breast lesion excision which was benign, colonoscopy, colonoscopy with biopsy, EGD with biopsy, femoral popliteal artery revascularization with stent placement and angioplasty on 11/14/2020, multiple vascular procedures of the lower extremities, ligation of the oviducts, cholecystectomy, right breast lumpectomy, removal of fatty tumors from abdomen, tonsillectomy. MEDICATIONS: Currently, the patient is on Tylenol 650 mg p.o. q. 8 hours p.r.n., Eliquis 5 mg p.o. b.i.d., aspirin 81 mg p.o. a.m., vitamin D 5000 units p.o. a.m., Plavix 75 mg p.o. a.m., ferrous sulfate 325 mg p.o. daily, Lasix 80 mg on Saturday, Saturday, and Saturday and 40 mg the rest of the days, magnesium oxide 500 mg p.o. a.m., metoprolol tartrate 25 mg p.o. b.i.d., Novolin N sliding scale, Novolin R 70 units subcutaneous a.m. and p.m., MiraLax 17 g p.o. daily p.r.n., rosuvastatin 40 mg p.o. at bedtime, tramadol 50 mg p.o. 8 hours p.r.n. FAMILY HISTORY: Significant for mother has rheumatoid arthritis, hypertension; father has emphysema, heart problems; sister has stroke; son has diabetes; maternal aunt has breast cancer. SOCIAL HISTORY: , lives with her . Quit smoking in 2014, smoked an average of 0.3 packs a day for 35 years. No alcohol use. No drug use. REVIEW OF SYSTEMS: As per HPI. Rest of the review of systems is negative. PHYSICAL EXAMINATION: GENERAL: The patient is morbidly obese, not in acute distress. VITAL SIGNS: Temperature 36.8, pulse 70, respiratory rate 18, blood pressure 110/56, oxygen 95% on room air. HEENT: Pupils equal, round and reactive to light. Oral mucosa moist. NECK: No JVD, no neck masses. CARDIOVASCULAR: S1 and S2 heard. Regular rate and rhythm. No murmur, no gallop. RESPIRATORY SYSTEM: Normal AP diameter. No accessory muscle use. No wheezing, no crackles. ABDOMEN: Soft, bowel sounds present, nontender, no distention. CENTRAL NERVOUS SYSTEM: Alert and oriented. Speech is clear. No facial droop. Moves extremities. EXTREMITIES: Lower extremity edema present. Right lower extremity, foot is in dressing, which was checked and she has a right midfoot ulcer on the lateral aspect and some drainage seen and also she has a pressure ulcer on the right ankle. LABORATORY DATA: WBC 17, hemoglobin 6.3, hematocrit 20.6, platelets 530. PT 13, INR 1.3, APTT 36.2. Sodium 131, potassium 4.2, chloride 95, bicarbonate 29, BUN 29, creatinine 1.69. Serum glucose 266, calcium 9.9, total bilirubin 0.4, AST 23, ALT 23, alkaline phosphatase 163. HCG quantitative less than 1. SARS-CoV-2 PCR negative. IMAGING DATA: Pelvic transabdominal and transvaginal ultrasound, endometrium was difficult to assess due to position of the uterus, but appears to be slightly heterogeneous and measures 7 mm. This would be considered abnormal in a postmenopausal female. Followup of nonemergent gynecology consultation recommended. ASSESSMENT AND PLAN: This is a 60-year-old female who presents with vaginal bleeding. 1. Vaginal bleeding: The patient has triple anticoagulation with Eliquis, aspirin and Plavix. Discussed with vascular surgery at [place], Dr. Nayan Dover is insurance verification rep for Dr. Lomeli. He said okay to stop all the medication, aspirin, Plavix, and Eliquis for now and when the vaginal bleeding is under control, to restart as soon as possible, and she can restart possibly with Plavix and Eliquis. Her hemoglobin is 6.3. We will transfuse 2 units of PRBCs. Trannsvaginal US shows thickened endometrium, will consult FINGERPRINT CLASSIFIER in the a.m. Will keep n.p.o. after midnight. 2. Peripheral vascular disease: Multiple procedures in the lower extremities. Currently, holding aspirin, Plavix, and Eliquis as above. Restart with the Plavix and Eliquis as soon as possible and follow up with vascular surgery. 3. Right midfoot diabetic foot ulcer: Has this chronically. Will consult wound care. Will get the cultures. As the patient has leukocytosis, we can start on antibiotics. Can consider consulting infectious disease. 4. Diabetes: The patient is on sliding scale and Novolin R. Hold the home medications. As per the EPIC, she is on Novolin N 33 units in the a.m. and 30 units in p.m. We will hold the Novolin for now and continue sliding scale and place her on Lantus 15 units b.i.d. as the patient is going to be n.p.o. after midnight. When started on diet, will increase the dose. 5 history of acute kidney injury on chronic kidney disease stage III: Baseline creatinine around 1.5, recently it was 1.8, today creatinine is 1.69. Will follow the repeat labs. The patient is getting the fluids. 6. History of chronic diastolic congestive heart failure: The patient is on Lasix, losartan. The patient is getting fluids. We will monitor for any volume overload. If ELROY is getting worse, then we can hold the Lasix and losartan. 7. Hypertension: On metoprolol and diuretics and losartan. We will monitor blood pressure. 8. Hyperlipidemia: On statin. 9. Obesity: Needs counseling. 10. Obstructive sleep apnea: The patient is not using CPAP or oxygen currently. 11. Deep venous thrombosis prophylaxis: Will place on sequential compression devices. DISPOSITION: Closely monitor in the [facility] tele. PT/OT prior to discharge. Social service to help with discharge planning. Job ID: [id number]
[2021-01-30] MEDS: METOPROLOL TARTRATE 25 MG TAB PO SCH (23:44)
[2021-01-30] MEDS: ROSUVASTATIN CALCIUM 20 MG TAB PO SCH (23:44)
[2021-01-30] MEDS: traMADol HCL 50 MG TABLET PO PRN (23:44)
[2021-01-30] MEDS: INSULIN ASPART 100 UNITS/ML 3 ML PEN SC SCH (23:46)
[2021-01-30] MEDS: INSULIN GLARGINE SOLOSTAR 100 UNITS/ML 3 ML PEN SC SCH (23:46)
[2021-01-31] MEDS: SODIUM CHLORIDE 0.9% 1000ML 1,000 ML IV SCH ×3 (02:34→17:43)
[2021-01-31] MEDS: INSULIN ASPART 100 UNITS/ML 3 ML PEN SC SCH ×3 (05:57→17:43)
[2021-01-31 06:23] LABS: Basophils # (auto) 0.02 K/uL (0-0.2); Basophils % (auto) 0.2 %; Eosinophils # (auto) 0.09 K/uL (0-0.5); Eosinophils % (auto) 0.7 %; Hematocrit (blood only) 23.2 % (37-47); Hemoglobin 7.5 g/dL (12.0-16.0); Immature Granulocytes # (auto) 0.08 K/uL (0.00-0.02); Immature Granulocytes % (auto) 0.6 %; Lymphocytes # (auto) 1.72 K/uL (1.2-3.4); Lymphocytes % (auto) 13.4 %; Mean Corpuscular Hemoglobin 25.6 pg (25-34); Mean Corpuscular Hgb Conc 32.3 g/dL (32-36); Mean Corpuscular Volume 79.2 fL (80-100); Mean Platelet Volume 8.9 fL (7.4-10.4); Monocytes # (auto) 1.24 K/uL (0.11-0.59); Monocytes % (auto) 9.7 %; Neutrophils # (auto) 9.67 K/uL (1.4-6.5); Neutrophils % (auto) 75.4 %; Nucleated RBC # (auto) 0.02 K/uL (0-0); Nucleated RBC % (auto) 0.1 %; Platelet Count 394 K/uL (130-400); RDW Coefficient of Variation 16.8 % (11.5-14.5); RDW Standard Deviation 48.5 fL (36.4-46.3); Red Blood Count 2.93 M/uL (4.2-5.4); White Blood Count 12.82 K/uL (4.8-10.8)
[2021-01-31 06:46] LABS: BUN Creatinine Ratio 19.7 (10-20); Calcium 9.1 mg/dl (8.5-10.1); Creatinine Clr Calc Pharmacy 44.1 ml/min; Est GFR (African American) 45.3 ml/min; Est GFR (Non-African American) 39.1 ml/min; Magnesium 2.2 mg/dl (1.8-2.4); Potassium 3.8 mmol/L (3.5-5.1)
[2021-01-31 06:47] LABS: RBC Morphology Unremarkable
[2021-01-31 07:24] LABS: Estimated Average Glucose 183 mg/dl
[2021-01-31] MEDS: CHOLECALCIFEROL 1,000 UNITS 25 MCG TAB PO SCH (08:26)
[2021-01-31] MEDS: INSULIN GLARGINE SOLOSTAR 100 UNITS/ML 3 ML PEN SC SCH ×2 (08:27→20:50)
[2021-01-31] MEDS: FERROUS SULFATE 325 MG TAB PO SCH (08:27)
[2021-01-31] MEDS: MAGNESIUM OXIDE 400 MG TAB PO SCH (08:27)
[2021-01-31] MEDS: METOPROLOL TARTRATE 25 MG TAB PO SCH ×2 (08:27→19:50)
[2021-01-31] MEDS ORDERED: ACETAMINOPHEN 500 MG TAB PO ONE (08:34)
[2021-01-31] MEDS ORDERED: SODIUM CHLORIDE 0.9% 250 ML IV PRN (08:34)
[2021-01-31] MEDS: traMADol HCL 50 MG TABLET PO PRN ×2 (09:43→16:10)
--- NOTE | 2021-01-31 11:59 | Hospitalist Progress Note ---
Date of Service January 31, 2021 Assessment & Plan (1) Anemia: (2) Acute blood loss anemia: (3) Vaginal bleeding: (4) Peripheral arterial disease: Plan: This is a 60-year-old female who presents with vaginal bleeding. 1. Vaginal bleeding: Acute blood loss anemia Patient has triple anticoagulation with Eliquis, aspirin and Plavix. Admitting provider discussed with vascular surgery at [place], Dr. Nayan Dover installation tech for Dr. Lomeli. He said okay to stop all the medication, aspirin, Plavix, and Eliquis for now and when the vaginal bleeding is under control, to restart as soon as possible, and she can restart possibly with Plav ix and Eliquis. Her hemoglobin is 6.3 on admission. Received 2 units of PRBCs. Current hemoglobin 7.5, will order 1 more unit of blood. Continue close monitor H&H. Vaginal bleeding now subsided. Trannsvaginal US shows thickened endometrium, MEDICATION RECONCILIATION TECHNICIAN consulted, pending evaluation. Kept n.p.o. after midnight. 2. Peripheral vascular disease: Multiple procedures in the lower extremities. Currently, holding aspirin, Plavix, and Eliquis as above. Restart with the Plavix and Eliquis as soon as possible and follow up with vascular surgery, Dr. Lomeli. 3. Right midfoot diabetic foot ulcer: Has this chronically. Follows with her vascular surgeon, Dr. Lomeli. Patient reports seeing her vascular surgeon regularly at [facility], last time about a week ago. Patient reports that her wound is healing well. Consult wound care. Will get the cultures. Patient febrile this morning, receiving blood transfusion. Denies any fevers at home. Besides a blood culture, obtain blood cultures. Leukocytosis, white blood cell count 17,000 on admission , now after 2 units of blood, WBC down to 12.8 K Antibiotics considered on admission, however not started, can consider consulting infectious disease. We will also obtain ESR, CRP, and will obtain MRI of right foot. Patient feels that her wound is doing much better and healing well, and she feels overall much better. 4. Diabetes: The patient is on sliding scale and Novolin R. Hold the home medications. As per the EPIC, she is on Novolin N 33 units in the a.m. and 30 units in p.m. We will hold the Novolin for now and continue sliding scale and place her on Lantus 15 units b.i.d. as the patient is going to be n.p.o. after midnight. When started on diet, will increase the dose. 5 history of acute kidney injury on chronic kidney disease stage III: Baseline creatinine around 1.5, recently it was 1.8, on admission creatinine is 1.69. Creatinine 1.4 this a.m. after receiving fluids. Monitor BMP, try to avoid nephrotoxic agents. 6. History of chronic diastolic congestive heart failure: The patient is on Lasix, losartan. The patient is getting fluids. We will monitor for any volume overload. If ELROY gets worse, then we can hold the Lasix and losartan. 7. Hypertension: On metoprolol and diuretics and losartan. We will monitor blood pressure. 8. Hyperlipidemia: On statin. 9. Obesity: Needs counseling. 10. Obstructive sleep apnea: The patient is not using CPAP or oxygen currently. DVT prophylaxis: Will place on sequential compression devices. DISPOSITION: Closely monitor in the [employer] tele. PT/OT prior to discharge. Social service to help with discharge planning. Admission and Anticipated Discharge Date Admission Date: January 30, 2021 Subjective Patient seen in follow-up of anemia, vaginal bleed, right foot wound Hemoglobin 7.5 this morning, after 2 units of blood, will order 1 more unit Currently sitting up in bed, in no acute distress Says she feels much better than yesterday, yesterday she was quite weak without any energy Denies any chest pain, shortness of breath, dizziness, palpitations, lightheadedness Reports that now vaginal bleeding subsided Febrile this morning while having blood transfusion, denies any fevers at home Patient is also recovering - has significant right foot wound, reports seeing vascular surgeon from [place], Dr. Lomeli Blood cultures obtained, wound nurse to see the patient MEDICATION RECONCILIATION TECHNICIAN contacted by ER, consultation pending Review of Systems Review of Systems: All systems reviewed & are unremarkable except as noted in Subjective Physical Exam Physical Exam: GENERAL: The patient is morbidly obese, BMO >40, not in acute distress. HEENT: NC/AT, Pupils equal, round and reactive to light. Oral mucosa moist. NECK: No JVD, no neck masses. CARDIOVASCULAR: S1 and S2 heard. Regular rate and rhythm. No murmur, no gallop. RESPIRATORY: Normal AP diameter. No accessory muscle use. No wheezing, no crackles. ABDOMEN: Soft, bowel sounds present, nontender, no distention. NEURO: Alert and oriented x3. Answering questions appropriately. Speech is clear. No facial droop. Moves extremities. EXTREMITIES: Lower extremity edema present. Right lower extremity, foot is in dressing, which was checked and she has a right midfoot ulcer on the lateral aspect and some drainage seen and also she has a pressure ulcer on the right ankle. Results & Data Results & Data ([facility]) Vital Signs (Past 12 Hours) Vital Signs Temp Pulse Pulse Resp BP BP BP 01/31/21 11:23 37.2 C 71 18 110/64 01/31/21 10:23 37.4 C 77 18 121/71 01/31/21 09:53 37.4 C 73 19 138/72 01/31/21 09:38 37.3 C 74 16 106/64 01/31/21 09:13 37.5 C 73 16 121/70 01/31/21 07:32 82 01/31/21 07:14 38.3 C H 85 18 102/61 01/31/21 07:00 37.7 C H 82 18 127/69 01/31/21 06:00 37.8 C H 01/31/21 03:50 37.8 C H 84 18 117/51 L 01/31/21 02:28 37.6 C H 84 18 131/56 L 01/31/21 01:49 37.4 C 81 16 120/47 L 01/31/21 00:45 37.3 C 81 18 120/45 L 01/31/21 00:15 37.3 C 80 16 117/83 01/30/21 23:53 37 C 79 18 132/52 L Pulse Ox 01/31/21 11:23 96 01/31/21 10:23 96 01/31/21 09:53 94 01/31/21 09:38 92 01/31/21 09:13 96 01/31/21 07:32 01/31/21 07:14 92 01/31/21 07:00 94 01/31/21 06:00 01/31/21 03:50 93 01/31/21 02:28 96 01/31/21 01:49 94 01/31/21 00:45 97 01/31/21 00:15 98 01/30/21 23:53 100 Laboratory Results 01/31/21 01/31/21 01/31/21 Range/Units 11:39 07:37 06:06 WBC (4.8-10.8) K/uL RBC (4.2-5.4) M/uL Hgb (12.0-16.0) g/dL Hct (37-47) % MCV (80-100) fL MCH (25-34) pg MCHC (32-36) g/dL RDW Std Deviation (36.4-46.3) fL RDW Coeff of Adelina (11.5-14.5) % Plt Count (130-400) K/uL MPV (7.4-10.4) fL Immature Gran % (Auto) % Neut % (Auto) % Lymph % (Auto) % [place] % (Auto) % Eos % (Auto) % Baso % (Auto) % Neut # (Auto) (1.4-6.5) K/uL Lymph # (Auto) (1.2-3.4) K/uL [place] # (Auto) (0.11-0.59) K/uL Eos # (Auto) (0-0.5) K/uL Baso # (Auto) (0-0.2) K/uL Immature Gran # (Auto) (0.00-0.02) K/uL Absolute Nucleated RBC (0-0) K/uL Nucleated RBC % (auto) % RBC Morphology Polychromasia Hypochromasia PT (9.0-12.0) Seconds INR (0.9-1.1) APTT (21.0-31.0) Seconds PTT Ratio Sodium (136-145) mmol/L Potassium (3.5-5.1) mmol/L Chloride (98-107) mmol/L Carbon Dioxide (21-32) mmol/L Anion Gap (3-11) BUN (7-18) mg/dl Creatinine (0.6-1.2) mg/dl Est Cr Clr Drug Dosing Est GFR ( Amer) ml/min Est GFR (Non-Af Amer) ml/min BUN/Creatinine Ratio (10-20) Glucose (70-99) mg/dl POC Glucose 192 H 200 H (70-99) mg/dl Estimat Average Glucose 183 mg/dl Hemoglobin A1c 8.0 H (4.5-5.6) % Calcium (8.5-10.1) mg/dl Magnesium (1.8-2.4) mg/dl Total Bilirubin (0.2-1) mg/dl AST (15-37) U/L ALT (12-78) U/L Alkaline Phosphatase (45-117) U/L Total Protein (6.4-8.2) gm/dl Albumin (3.4-5.0) gm/dl Globulin (2.5-4.0) gm/dl Albumin/Globulin Ratio (0.9-2) HCG, Quant mIU/ml Urine Color Urine Appearance (Clear) Urine pH (4.5-7.5) Ur Specific [place] (1.000-1.030) Urine Protein (Negative) Urine Glucose (UA) (Negative) Urine Ketones (Negative) Urine Blood (Negative) Urine Nitrite (Negative) Urine Bilirubin (Negative) Urine Urobilinogen (Negative) Ur Leukocyte Esterase (Negative) Urine WBC (Auto) (0-5) /hpf Urine RBC (Auto) (0-4) /hpf U Hyaline Cast (Auto) (0-5) /lpf U Epithel Cells (Auto) (0-5) /lpf Urine Bacteria (Auto) (Negative) COVID-19 Eval Order SARS-CoV-2 (PCR) (Negative) Blood Type Blood Type Recheck Antibody Screen Crossmatch 01/31/21 01/31/21 01/31/21 Range/Units 06:06 06:06 05:47 WBC 12.82 H (4.8-10.8) K/uL RBC 2.93 L (4.2-5.4) M/uL Hgb 7.5 L (12.0-16.0) g/dL Hct 23.2 L (37-47) % MCV 79.2 L (80-100) fL MCH 25.6 (25-34) pg MCHC 32.3 (32-36) g/dL RDW Std Deviation 48.5 H (36.4-46.3) fL RDW Coeff of Adelina 16.8 H (11.5-14.5) % Plt Count 394 (130-400) K/uL MPV 8.9 (7.4-10.4) fL Immature Gran % (Auto) 0.6 % Neut % (Auto) 75.4 % Lymph % (Auto) 13.4 % [place] % (Auto) 9.7 % Eos % (Auto) 0.7 % Baso % (Auto) 0.2 % Neut # (Auto) 9.67 H (1.4-6.5) K/uL Lymph # (Auto) 1.72 (1.2-3.4) K/uL [place] # (Auto) 1.24 H (0.11-0.59) K/uL Eos # (Auto) 0.09 (0-0.5) K/uL Baso # (Auto) 0.02 (0-0.2) K/uL Immature Gran # (Auto) 0.08 H (0.00-0.02) K/uL Absolute Nucleated RBC 0.02 H (0-0) K/uL Nucleated RBC % (auto) 0.1 % RBC Morphology Unremarkable Polychromasia Hypochromasia PT (9.0-12.0) Seconds INR (0.9-1.1) APTT (21.0-31.0) Seconds PTT Ratio Sodium 133 L (136-145) mmol/L Potassium 3.8 (3.5-5.1) mmol/L Chloride 98 (98-107) mmol/L Carbon Dioxide 28 (21-32) mmol/L Anion Gap 8.0 (3-11) BUN 28 H (7-18) mg/dl Creatinine 1.44 H (0.6-1.2) mg/dl Est Cr Clr Drug Dosing 44.1 Est GFR ( Amer) 45.3 ml/min Est GFR (Non-Af Amer) 39.1 ml/min BUN/Creatinine Ratio 19.7 (10-20) Glucose 214 H (70-99) mg/dl POC Glucose 234 H (70-99) mg/dl Estimat Average Glucose mg/dl Hemoglobin A1c (4.5-5.6) % Calcium 9.1 (8.5-10.1) mg/dl Magnesium 2.2 (1.8-2.4) mg/dl Total Bilirubin (0.2-1) mg/dl AST (15-37) U/L ALT (12-78) U/L Alkaline Phosphatase (45-117) U/L Total Protein (6.4-8.2) gm/dl Albumin (3.4-5.0) gm/dl Globulin (2.5-4.0) gm/dl Albumin/Globulin Ratio (0.9-2) HCG, Quant mIU/ml Urine Color Urine Appearance (Clear) Urine pH (4.5-7.5) Ur Specific [place] (1.000-1.030) Urine Protein (Negative) Urine Glucose (UA) (Negative) Urine Ketones (Negative) Urine Blood (Negative) Urine Nitrite (Negative) Urine Bilirubin (Negative) Urine Urobilinogen (Negative) Ur Leukocyte Esterase (Negative) Urine WBC (Auto) (0-5) /hpf Urine RBC (Auto) (0-4) /hpf U Hyaline Cast (Auto) (0-5) /lpf U Epithel Cells (Auto) (0-5) /lpf Urine Bacteria (Auto) (Negative) COVID-19 Eval Order SARS-CoV-2 (PCR) (Negative) Blood Type Blood Type Recheck Antibody Screen Crossmatch 01/30/21 01/30/21 01/30/21 Range/Units 22:42 22:13 17:35 WBC (4.8-10.8) K/uL RBC (4.2-5.4) M/uL Hgb (12.0-16.0) g/dL Hct (37-47) % MCV (80-100) fL MCH (25-34) pg MCHC (32-36) g/dL RDW Std Deviation (36.4-46.3) fL RDW Coeff of Adelina (11.5-14.5) % Plt Count (130-400) K/uL MPV (7.4-10.4) fL Immature Gran % (Auto) % Neut % (Auto) % Lymph % (Auto) % [place] % (Auto) % Eos % (Auto) % Baso % (Auto) % Neut # (Auto) (1.4-6.5) K/uL Lymph # (Auto) (1.2-3.4) K/uL [place] # (Auto) (0.11-0.59) K/uL Eos # (Auto) (0-0.5) K/uL Baso # (Auto) (0-0.2) K/uL Immature Gran # (Auto) (0.00-0.02) K/uL Absolute Nucleated RBC (0-0) K/uL Nucleated RBC % (auto) % RBC Morphology Polychromasia Hypochromasia PT (9.0-12.0) Seconds INR (0.9-1.1) APTT (21.0-31.0) Seconds PTT Ratio Sodium (136-145) mmol/L Potassium (3.5-5.1) mmol/L Chloride (98-107) mmol/L Carbon Dioxide (21-32) mmol/L Anion Gap (3-11) BUN (7-18) mg/dl Creatinine (0.6-1.2) mg/dl Est Cr Clr Drug Dosing Est GFR ( Amer) ml/min Est GFR (Non-Af Amer) ml/min BUN/Creatinine Ratio (10-20) Glucose (70-99) mg/dl POC Glucose 263 H (70-99) mg/dl Estimat Average Glucose mg/dl Hemoglobin A1c (4.5-5.6) % Calcium (8.5-10.1) mg/dl Magnesium (1.8-2.4) mg/dl Total Bilirubin (0.2-1) mg/dl AST (15-37) U/L ALT (12-78) U/L Alkaline Phosphatase (45-117) U/L Total Protein (6.4-8.2) gm/dl Albumin (3.4-5.0) gm/dl Globulin (2.5-4.0) gm/dl Albumin/Globulin Ratio (0.9-2) HCG, Quant mIU/ml Urine Color Yellow Urine Appearance Clear (Clear) Urine pH 5.0 (4.5-7.5) Ur Specific [place] 1.013 (1.000-1.030) Urine Protein 1+ H (Negative) Urine Glucose (UA) Negative (Negative) Urine Ketones Negative (Negative) Urine Blood 3+ H (Negative) Urine Nitrite Negative (Negative) Urine Bilirubin Negative (Negative) Urine Urobilinogen Negative (Negative) Ur Leukocyte Esterase Negative (Negative) Urine WBC (Auto) 1-5 (0-5) /hpf Urine RBC (Auto) >30 H (0-4) /hpf U Hyaline Cast (Auto) 1-5 (0-5) /lpf U Epithel Cells (Auto) >30 H (0-5) /lpf Urine Bacteria (Auto) Negative (Negative) COVID-19 Eval Order SARS-CoV-2 (PCR) NEGATIVE (Negative) Blood Type Blood Type Recheck Antibody Screen Crossmatch 01/30/21 01/30/21 01/30/21 Range/Units 17:35 17:32 15:21 WBC (4.8-10.8) K/uL RBC (4.2-5.4) M/uL Hgb (12.0-16.0) g/dL Hct (37-47) % MCV (80-100) fL MCH (25-34) pg MCHC (32-36) g/dL RDW Std Deviation (36.4-46.3) fL RDW Coeff of Adelina (11.5-14.5) % Plt Count (130-400) K/uL MPV (7.4-10.4) fL Immature Gran % (Auto) % Neut % (Auto) % Lymph % (Auto) % [place] % (Auto) % Eos % (Auto) % Baso % (Auto) % Neut # (Auto) (1.4-6.5) K/uL Lymph # (Auto) (1.2-3.4) K/uL [place] # (Auto) (0.11-0.59) K/uL Eos # (Auto) (0-0.5) K/uL Baso # (Auto) (0-0.2) K/uL Immature Gran # (Auto) (0.00-0.02) K/uL Absolute Nucleated RBC (0-0) K/uL Nucleated RBC % (auto) % RBC Morphology Polychromasia Hypochromasia PT (9.0-12.0) Seconds INR (0.9-1.1) APTT (21.0-31.0) Seconds PTT Ratio Sodium (136-145) mmol/L Potassium (3.5-5.1) mmol/L Chloride (98-107) mmol/L Carbon Dioxide (21-32) mmol/L Anion Gap (3-11) BUN (7-18) mg/dl Creatinine (0.6-1.2) mg/dl Est Cr Clr Drug Dosing Est GFR ( Amer) ml/min Est GFR (Non-Af Amer) ml/min BUN/Creatinine Ratio (10-20) Glucose (70-99) mg/dl POC Glucose (70-99) mg/dl Estimat Average Glucose mg/dl Hemoglobin A1c (4.5-5.6) % Calcium (8.5-10.1) mg/dl Magnesium (1.8-2.4) mg/dl Total Bilirubin (0.2-1) mg/dl AST (15-37) U/L ALT (12-78) U/L Alkaline Phosphatase (45-117) U/L Total Protein (6.4-8.2) gm/dl Albumin (3.4-5.0) gm/dl Globulin (2.5-4.0) gm/dl Albumin/Globulin Ratio (0.9-2) HCG, Quant < 1 mIU/ml Urine Color Urine Appearance (Clear) Urine pH (4.5-7.5) Ur Specific [place] (1.000-1.030) Urine Protein (Negative) Urine Glucose (UA) (Negative) Urine Ketones (Negative) Urine Blood (Negative) Urine Nitrite (Negative) Urine Bilirubin (Negative) Urine Urobilinogen (Negative) Ur Leukocyte Esterase (Negative) Urine WBC (Auto) (0-5) /hpf Urine RBC (Auto) (0-4) /hpf U Hyaline Cast (Auto) (0-5) /lpf U Epithel Cells (Auto) (0-5) /lpf Urine Bacteria (Auto) (Negative) COVID-19 Eval Order Covid19 at [facility] SARS-CoV-2 (PCR) (Negative) Blood Type Blood Type Recheck O Negative Antibody Screen Crossmatch 01/30/21 01/30/21 01/30/21 Range/Units 15:21 15:21 15:21 WBC 17.03 H (4.8-10.8) K/uL RBC 2.60 L (4.2-5.4) M/uL Hgb 6.3 L* (12.0-16.0) g/dL Hct 20.6 L* (37-47) % MCV 79.2 L (80-100) fL MCH 24.2 L (25-34) pg MCHC 30.6 L (32-36) g/dL RDW Std Deviation 49.9 H (36.4-46.3) fL RDW Coeff of Adelina 17.4 H (11.5-14.5) % Plt Count 530 H (130-400) K/uL MPV 8.8 (7.4-10.4) fL Immature Gran % (Auto) 0.6 % Neut % (Auto) 79.7 % Lymph % (Auto) 11.8 % [place] % (Auto) 7.5 % Eos % (Auto) 0.2 % Baso % (Auto) 0.2 % Neut # (Auto) 13.57 H (1.4-6.5) K/uL Lymph # (Auto) 2.01 (1.2-3.4) K/uL [place] # (Auto) 1.28 H (0.11-0.59) K/uL Eos # (Auto) 0.04 (0-0.5) K/uL Baso # (Auto) 0.03 (0-0.2) K/uL Immature Gran # (Auto) 0.10 H (0.00-0.02) K/uL Absolute Nucleated RBC (0-0) K/uL Nucleated RBC % (auto) % RBC Morphology Polychromasia 1+ Hypochromasia Present PT 13.0 H (9.0-12.0) Seconds INR 1.3 H (0.9-1.1) APTT 36.2 H (21.0-31.0) Seconds PTT Ratio 1.4 Sodium 131 L (136-145) mmol/L Potassium 4.2 (3.5-5.1) mmol/L Chloride 95 L (98-107) mmol/L Carbon Dioxide 29 (21-32) mmol/L Anion Gap 7.0 (3-11) BUN 29 H (7-18) mg/dl Creatinine 1.69 H (0.6-1.2) mg/dl Est Cr Clr Drug Dosing Not Reportable Est GFR ( Amer) 37.3 ml/min Est GFR (Non-Af Amer) 32.2 ml/min BUN/Creatinine Ratio 17.2 (10-20) Glucose 266 H (70-99) mg/dl POC Glucose (70-99) mg/dl Estimat Average Glucose mg/dl Hemoglobin A1c (4.5-5.6) % Calcium 9.9 (8.5-10.1) mg/dl Magnesium (1.8-2.4) mg/dl Total Bilirubin 0.4 (0.2-1) mg/dl AST 23 (15-37) U/L ALT 23 (12-78) U/L Alkaline Phosphatase 163 H (45-117) U/L Total Protein 8.3 H (6.4-8.2) gm/dl Albumin 2.1 L (3.4-5.0) gm/dl Globulin 6.2 H (2.5-4.0) gm/dl Albumin/Globulin Ratio 0.3 L (0.9-2) HCG, Quant mIU/ml Urine Color Urine Appearance (Clear) Urine pH (4.5-7.5) Ur Specific [place] (1.000-1.030) Urine Protein (Negative) Urine Glucose (UA) (Negative) Urine Ketones (Negative) Urine Blood (Negative) Urine Nitrite (Negative) Urine Bilirubin (Negative) Urine Urobilinogen (Negative) Ur Leukocyte Esterase (Negative) Urine WBC (Auto) (0-5) /hpf Urine RBC (Auto) (0-4) /hpf U Hyaline Cast (Auto) (0-5) /lpf U Epithel Cells (Auto) (0-5) /lpf Urine Bacteria (Auto) (Negative) COVID-19 Eval Order SARS-CoV-2 (PCR) (Negative) Blood Type Blood Type Recheck Antibody Screen Crossmatch 01/30/21 Range/Units 15:21 WBC (4.8-10.8) K/uL RBC (4.2-5.4) M/uL Hgb (12.0-16.0) g/dL Hct (37-47) % MCV (80-100) fL MCH (25-34) pg MCHC (32-36) g/dL RDW Std Deviation (36.4-46.3) fL RDW Coeff of Adelina (11.5-14.5) % Plt Count (130-400) K/uL MPV (7.4-10.4) fL Immature Gran % (Auto) % Neut % (Auto) % Lymph % (Auto) % [place] % (Auto) % Eos % (Auto) % Baso % (Auto) % Neut # (Auto) (1.4-6.5) K/uL Lymph # (Auto) (1.2-3.4) K/uL [place] # (Auto) (0.11-0.59) K/uL Eos # (Auto) (0-0.5) K/uL Baso # (Auto) (0-0.2) K/uL Immature Gran # (Auto) (0.00-0.02) K/uL Absolute Nucleated RBC (0-0) K/uL Nucleated RBC % (auto) % RBC Morphology Polychromasia Hypochromasia PT (9.0-12.0) Seconds INR (0.9-1.1) APTT (21.0-31.0) Seconds PTT Ratio Sodium (136-145) mmol/L Potassium (3.5-5.1) mmol/L Chloride (98-107) mmol/L Carbon Dioxide (21-32) mmol/L Anion Gap (3-11) BUN (7-18) mg/dl Creatinine (0.6-1.2) mg/dl Est Cr Clr Drug Dosing Est GFR ( Amer) ml/min Est GFR (Non-Af Amer) ml/min BUN/Creatinine Ratio (10-20) Glucose (70-99) mg/dl POC Glucose (70-99) mg/dl Estimat Average Glucose mg/dl Hemoglobin A1c (4.5-5.6) % Calcium (8.5-10.1) mg/dl Magnesium (1.8-2.4) mg/dl Total Bilirubin (0.2-1) mg/dl AST (15-37) U/L ALT (12-78) U/L Alkaline Phosphatase (45-117) U/L Total Protein (6.4-8.2) gm/dl Albumin (3.4-5.0) gm/dl Globulin (2.5-4.0) gm/dl Albumin/Globulin Ratio (0.9-2) HCG, Quant mIU/ml Urine Color Urine Appearance (Clear) Urine pH (4.5-7.5) Ur Specific [place] (1.000-1.030) Urine Protein (Negative) Urine Glucose (UA) (Negative) Urine Ketones (Negative) Urine Blood (Negative) Urine Nitrite (Negative) Urine Bilirubin (Negative) Urine Urobilinogen (Negative) Ur Leukocyte Esterase (Negative) Urine WBC (Auto) (0-5) /hpf Urine RBC (Auto) (0-4) /hpf U Hyaline Cast (Auto) (0-5) /lpf U Epithel Cells (Auto) (0-5) /lpf Urine Bacteria (Auto) (Negative) COVID-19 Eval Order SARS-CoV-2 (PCR) (Negative) Blood Type O Negative Blood Type Recheck Antibody Screen NEGATIVE Crossmatch See Detail Medications Administered Current Inpatient Medications Acetaminophen (Acetaminophen 325 Mg Tab) 650 mg PO Q4H PRN PRN Reason: Pain or Fever Stop: 03/01/21 22:23 Ferrous Sulfate (Ferrous Sulfate 325 Mg Tab) 325 mg PO DAILY PER Stop: 03/02/21 08:59 Last Admin: 01/31/21 08:27 Dose: 325 mg Documented by: Furosemide (Furosemide 40 Mg/4 Ml Vial) 20 mg IV NOW ONE Stop: 01/31/21 22:31 Furosemide (Furosemide 80 Mg Tab) 80 mg PO MoWeFr PER Stop: 03/03/21 08:59 Sodium Chloride (Nss 1000ml) 1,000 mls @ 100 mls/hr IV .Q10H PER Stop: 03/01/21 22:23 Last Admin: 01/31/21 08:28 Dose: 100 mls/hr Documented by: Sodium Chloride (Nss) 250 mls @ 15 mls/hr IV .[id number] PRN PRN Reason: For Transfusion Stop: 03/01/21 22:23 Sodium Chloride (Nss) 250 mls @ 15 mls/hr IV .[id number] PRN PRN Reason: For Transfusion Stop: 01/31/21 18:34 Insulin Aspart (Insulin Aspart 100 Units/Ml 3 Ml Pen) 0 units SC Q6 PER Stop: 03/01/21 22:59 Last Admin: 01/31/21 05:57 Dose: 3 units Documented by: Insulin Glargine (Insulin Glargine Solostar 100 Units/Ml 3 Ml Pen) 25 units SC BID PER Stop: 03/01/21 22:59 Last Admin: 01/31/21 08:27 Dose: 25 units Documented by: Magnesium Oxide (Magnesium Oxide 400 Mg Tab) 800 mg PO QAM PER Stop: 03/02/21 08:59 Last Admin: 01/31/21 08:27 Dose: 800 mg Documented by: Metoprolol Tartrate (Metoprolol Tartrate 25 Mg Tab) 25 mg PO BID PER Stop: 03/01/21 22:23 Last Admin: 01/31/21 08:27 Dose: 25 mg Documented by: Nitroglycerin (Nitroglycerin Sl 0.4 Mg/Tab Tab) 0.4 mg SL UD PRN PRN Reason: Chest Pain Stop: 03/01/21 22:23 Ondansetron HCl (Ondansetron Inj 2 Mg/Ml 2 Ml Vial) 4 mg IV Q6H PRN PRN Reason: Nausea Stop: 03/01/21 22:23 Polyethylene Glycol (Polyethylene (Miralax) 17 Gm Pack) 17 gm PO DAILY PRN PRN Reason: Constipation Stop: 03/01/21 22:23 Rosuvastatin Calcium (Rosuvastatin Calcium 20 Mg Tab) 40 mg PO HS [facility] Stop: 03/01/21 22:23 Last Admin: 01/30/21 23:44 Dose: 40 mg Documented by: Tramadol HCl (Tramadol Hcl 50 Mg Tablet) 50 mg PO Q8H PRN PRN Reason: Pain Stop: 03/01/21 22:23 Last Admin: 01/31/21 09:43 Dose: 50 mg Documented by: Vitamin D (Cholecalciferol 1,000 Units 25 Mcg Tab) 5,000 units [facility] [place] [place] Stop: 03/02/21 08:59 Last Admin: 01/31/21 08:26 Dose: 5,000 units Documented by: (1) Anemia Anemia type: other cause Other causes of anemia: acute posthemorrhagic Qualified Code(s): D62 - Acute posthemorrhagic anemia
--- NOTE | 2021-01-31 16:31 | Magnetic Resonance Report ---
MR foot RT w/o con CLINICAL HISTORY: Right lateral foot wound. Right first and second toe wound. Evaluate for osteomyeli tis. COMPARISON STUDY: MRI of the right ankle October 23, 2020. Right foot radiographs November 11, 2020 TECHNIQUE: Utilizing a 1.5 Elizabeth magnet and dedicated coil, multiplanar, multiecho imaging of the rig ht foot was performed without intravenous contrast. FINDINGS: A marker was placed on the skin at site of wound. The marker overlies the lateral aspect of the right midfoot. Note is made of corresponding subcutaneous signal abnormality. There is contiguou s extensive marrow signal abnormality within the right midfoot and hindfoot involving the bases of th e fifth and fourth metatarsals as well as replacement of marrow signal within the talus, calcaneus, c uboid and intermediate and lateral cuneiforms. In addition, this extends into the distal right tibia as well as probable extension to the fibula, partially imaged on this exam. This represents a signifi cant change since MRI of October 23, 2020. There is associated soft tissue thickening and numerous bone f ragments with disorganization of the right hindfoot. Underlying neuropathic arthropathy is present, a s shown on previous MRI. Evaluation for abscess is suboptimal on this unenhanced exam but no well-def ined fluid collection is identified. IMPRESSION: Interval development of extensive marrow signal abnormality and soft tissue thickening w ithin the right midfoot, hindfoot, right tibia and likely the right fibula, partially imaged on this exam. This is contiguous with with the lateral mid foot wound. This is new since MRI October 23, 2020. Th e findings suggest extensive osteomyelitis superimposed upon a neuropathic arthropathy. Rapid progres edwin of neuropathic arthropathy is considered less likely. Extensive infectious process is the diagno sis of exclusion. ACT 112: Negative or not required by law. Electronically signed by: Azael Morton M.D. 01/31/2021 4:30 PM
--- NOTE | 2021-01-31 19:04 | OB/GYN Consultation ---
Date of Consultation January 31, 2021 Assessment & Plan (1) Postmenopausal bleeding: RESTORATIVE AIDE consult dictated Pt's bleeding is completely improved pt will f/u with wire brush maker for endometrial biopsy as out patient pt agrees with Plan History of Present Illness Attending Physician: Reggie Sterling MD Allergies Allergy/AdvReac Type Severity Reaction Status Date / Time amoxicillin Allergy Intermediate HIVES & N/V Verified 01/30/21 17:49 clavulanic acid Allergy Intermediate HIVES & N/V Verified 01/30/21 17:49 vancomycin Allergy Mild pruritus Verified 01/30/21 17:49 sulfamethoxazole AdvReac Severe renal Verified 01/30/21 17:49 [From Bactrim] failure trimethoprim [From Bactrim] AdvReac Severe renal Verified 01/30/21 17:49 failure lisinopril AdvReac Intermediate NAUSEA/VOMI Verified 01/30/21 17:49 TING Home Medications Medication Instructions Recorded Confirmed Type cholecalciferol (vitamin D3) 125 5,000 units PO QAM 09/16/18 01/30/21 History mcg (5,000 unit) tablet (Vitamin D3) metoprolol tartrate 25 mg tablet 25 mg PO BID 09/16/18 01/30/21 History insulin regular human 100 unit/mL 70 unit SUBCUT AMPM 01/15/19 01/30/21 History injection solution (Novolin R Regular U-100 Insulin) rosuvastatin 40 mg tablet 40 mg PO HS 01/15/19 01/30/21 History aspirin 81 mg tablet,delayed 81 mg PO QAM 06/24/19 01/30/21 History release polyethylene glycol 3350 17 gram 17 g PO DAILY PRN 02/05/20 01/30/21 History oral powder packet (Miralax) insulin NPH isoph U-100 human 100 0 unit SUBCUT DIRECTED 04/06/20 01/30/21 History unit/mL (3 mL) subcutaneous pen (Novolin N Flexpen) magnesium oxide 500 mg tablet 500 mg PO QAM 04/06/20 01/30/21 History acetaminophen 650 mg 650 mg PO Q8H PRN 10/07/20 01/30/21 History tablet,extended release tramadol 50 mg tablet 50 mg PO Q8H PRN #15 tab 10/29/20 01/30/21 Rx apixaban 5 mg tablet (Eliquis) 5 mg PO BID 01/30/21 01/30/21 History clopidogrel 75 mg tablet 75 mg PO DAILY 01/30/21 01/30/21 History ferrous sulfate 325 mg PO DAILY 01/30/21 01/30/21 History furosemide 40 mg tablet 80 mg PO UD 01/30/21 01/30/21 History Patient History Medical History Acute kidney injury superimposed on CKD Anemia Cellulitis Charcot's joint of foot due to diabetes Chronic back pain Chronic kidney disease (CKD), stage III (moderate) monitoring. Follows with Nephrology [facility]. Chronic venous insufficiency Clostridium difficile colitis history (~11/2016) -- treated no problems since. Diabetes mellitus type 2, uncontrolled Diabetic foot ulcer associated with type 2 diabetes mellitus, with fat layer exposed Diabetic ulcer of right foot associated with diabetes mellitus due to underlying condition, limited to breakdown of skin Diabetic ulcer of right foot with fat layer exposed Dyslipidemia Elevated blood sugar Hypertension Insulin-requiring or dependent type II diabetes mellitus Morbid obesity On anticoagulant therapy Osteoarthritis PAD (peripheral artery disease) S/P right lower extremity angiogram, mechanical thrombectomy of pre-existing superficial femoral artery stent usinh [employer] [place] Omni catheter, balloon angioplasty of the superficial femoral artery stent using 5 X 200 mm [place] balloon, balloon angioplasty of the superficial femoral artery 6 X 250 mm IN.PACT drug coated balloon, stent angioplasty of the superficial femoral artery using 5 X 150 mm INOVA bare metal stent, and debridement of the right lateral foot on 11/14/[address] Lomeli. S/P bilateral SFA stenting Sleep apnea no cpap Ulcerated, foot Venous stasis ulcer current right foot wound, following with wound clinic Surgical History H/O vascular surgery bilateral lower legs, left leg vascular stent (August 2019/November 2019/December 2019) Dr. Cr [facility] History of cholecystectomy History of esophagogastroduodenoscopy (EGD) History of left cataract surgery History of lumpectomy of right breast benign History of tooth extraction S/P epidural steroid injection Status post colonoscopy "2012- 2 hyperplastic + 1 adenomatous polyps; 2016- normal" Status post tonsillectomy Status post tubal ligation Family History Mother Rheumatoid arthritis Father Emphysema of lung Peripheral artery disease Other No family history of adverse response to anesthesia Denies family history of CAD (coronary atherosclerotic disease) Social History Smoking Status: Former smoker Years Smoked: 45; Cigarettes Per Day: 1.5-2ppd; Second Hand Exposure: No; Do You Dip or Chew Tobacco: No; Tobacco Cessation Education Requested by Patient: No Hx Alcohol Use: No Hx Substance Use: No Preferred Language: Indonesian Communication Ability: Effective Rug Touch Up Painter Required: No Beliefs That Will Affect Care: None marital status: Current Living Situation: Spouse Current Living Situation Comment: reports her son is also in poor health at this time current occupational status: disabled Other Information That Helps Us Care for You: No other: previous worked at [employer] Feels Safe at Home: Yes Safety Concerns: Feels Safe At This Time Assistive Devices: Cane, Denture - Upper, Denture - Lower and Glasses Results & Data ([facility]) Vital Signs (Past 12 Hours) Vital Signs Temp Pulse Pulse Resp BP BP BP 01/31/21 16:41 74 01/31/21 12:47 37.1 C 70 18 110/52 L 01/31/21 11:23 37.2 C 71 18 110/64 01/31/21 10:23 37.4 C 77 18 121/71 01/31/21 09:53 37.4 C 73 19 138/72 01/31/21 09:38 37.3 C 74 16 106/64 01/31/21 09:13 37.5 C 73 16 121/70 01/31/21 07:32 82 01/31/21 07:14 38.3 C H 85 18 102/61 Pulse Ox 01/31/21 16:41 01/31/21 12:47 95 01/31/21 11:23 96 01/31/21 10:23 96 01/31/21 09:53 94 01/31/21 09:38 92 01/31/21 09:13 96 01/31/21 07:32 01/31/21 07:14 92
[2021-01-31] MEDS: ROSUVASTATIN CALCIUM 20 MG TAB PO SCH (19:50)
[2021-01-31] MEDS: ACETAMINOPHEN 325 MG TAB PO PRN (19:53)
--- NOTE | 2021-01-31 20:25 | Consultation Report ---
OBSTETRIC AND GYNECOLOGIC CONSULTATION DATE OF SERVICE: 01/31/2021 Consult is placed by Dr. Henriquez. HISTORY OF PRESENT ILLNESS: This is a 60-year-old white female who was admitted for vaginal bleeding . The patient presented through ER, was admitted for vaginal bleeding. The patient has numerous med ical problems including class III obesity, type 2 diabetes, stage III kidney disease, hypertension, h yperlipidemia, and peripheral vascular disease. The patient is on several blood thinners. She has u ndergone several surgeries with the vascular surgeon in [place] who was consulted upon admission on this patient. Since admission, has received 3 units of packed RBC. Her hemoglobin on admission was as low as 6.3. The patient's bleeding has remarkably improved. Part of her workup included an ultra sound, which showed thickened endometrium. This is what resulted in the FIBER OPTIC TECHNICIAN consult. On arrival to see the patient, patient is comfortably resting in bed. She has no shortness of breath, no chills, n o fever. She reports feeling much better after 3 units of packed RBCs. Once again, she reports that her bleeding is much improved. All of this bleeding started about 4 days ago and remarkably gotten worse. This is why she showed up to the Emergency Room yesterday. PAST MEDICAL HISTORY, SOCIAL HISTORY, FAMILY HISTORY: Have all been reviewed. ALLERGIES: THE PATIENT IS ALLERGIC TO AUGMENTIN, VANCOMYCIN, BACTRIM AND LISINOPRIL. PHYSICAL EXAMINATION: GENERAL: Well-developed, obese white female in no acute distress. VITAL SIGNS: Blood pressure today is 110/52, pulse is 74, respirations 18, temperature 37.1. HEART: S1, S2 regular rhythm and rate. LUNGS: Clear to auscultation bilaterally. ABDOMEN: Nontender, nondistended. PELVIC: Decreased vaginal bleeding. EXTREMITIES: The patient has cellulitis of the right foot. As stated above, she has had several yea r history of peripheral vascular disease and has had some vascular surgery done on the right extremit y. ASSESSMENT AND PLAN: A 60-year-old with numerous medical problems including diabetes, peripheral vas cular disease and is on several blood thinners, admitted for what appears to be acute vaginal bleedin g. Her blood thinners were stopped since admission and her bleeding has remarkably improved. Initia l admission hemoglobin was 6.3. She has received 3 units of packed RBCs. She is presently stable. Her vaginal bleeding has improved since her blood thinners were stopped and was transfused. I have d iscussed the findings on ultrasound, which showed thickened endometrium with patient. I have told th e patient that she will need endometrial biopsy. Plan is for the patient after discharge to call and make an appointment in the office for a scheduled endometrial biopsy. The patient understands the p cammy and agreed with the above recommendations. Thank you very much for the consult. Please let gynecology know if you need any further recommendati ons. At this point, we will sign of the patient. Job ID: [id number]
[2021-01-31] MEDS ORDERED: CEFEPIME CONSULT ACTIVE PRN (20:27)
[2021-01-31] MEDS ORDERED: FUROSEMIDE 40 MG/4 ML VIAL IV ONE ×2 (20:30→22:30)
[2021-01-31 20:55] LABS: Hemoglobin 8.8 g/dL (12.0-16.0)
[2021-01-31] MEDS: CEFEPIME 2,000 MG in SYRINGE 0 ML IV SCH (21:20)
[2021-02-01] MEDS: INSULIN ASPART 100 UNITS/ML 3 ML PEN SC SCH ×4 (00:15→17:25)
[2021-02-01] MEDS: SODIUM CHLORIDE 0.9% 1000ML 1,000 ML IV SCH ×3 (00:57→23:26)
[2021-02-01] MEDS: traMADol HCL 50 MG TABLET PO PRN ×2 (04:27→17:28)
[2021-02-01 06:56] LABS: Rouleaux 1+
[2021-02-01] MEDS ORDERED: FUROSEMIDE 20 MG in SYRINGE 0 ML IV ONE (08:00)
[2021-02-01 08:43] LABS: Hematocrit (blood only) 26.7 % (37-47); Hemoglobin 8.5 g/dL (12.0-16.0); Mean Corpuscular Hemoglobin 26.4 pg (25-34); Mean Corpuscular Hgb Conc 31.8 g/dL (32-36); Mean Corpuscular Volume 82.9 fL (80-100); Mean Platelet Volume 8.8 fL (7.4-10.4); Platelet Count 398 K/uL (130-400); RDW Coefficient of Variation 17.3 % (11.5-14.5); RDW Standard Deviation 52.9 fL (36.4-46.3); Red Blood Count 3.22 M/uL (4.2-5.4); White Blood Count 13.09 K/uL (4.8-10.8)
[2021-02-01 09:01] LABS: BUN Creatinine Ratio 16.5 (10-20); Calcium 9.2 mg/dl (8.5-10.1); Creatinine Clr Calc Pharmacy 48.6 ml/min; Est GFR (African American) 49.9 ml/min; Magnesium 2.1 mg/dl (1.8-2.4); Phosphorus 2.5 mg/dl (2.5-4.9); Potassium 3.9 mmol/L (3.5-5.1)
[2021-02-01] MEDS: CHOLECALCIFEROL 1,000 UNITS 25 MCG TAB PO SCH (09:17)
[2021-02-01] MEDS: MAGNESIUM OXIDE 400 MG TAB PO SCH (09:17)
[2021-02-01] MEDS: FUROSEMIDE 80 MG TAB PO SCH (09:17)
[2021-02-01] MEDS: FERROUS SULFATE 325 MG TAB PO SCH (09:18)
[2021-02-01] MEDS: METOPROLOL TARTRATE 25 MG TAB PO SCH ×2 (09:18→20:05)
[2021-02-01] MEDS: INSULIN GLARGINE SOLOSTAR 100 UNITS/ML 3 ML PEN SC SCH ×2 (09:21→20:48)
[2021-02-01] MEDS: CEFEPIME 2,000 MG in SYRINGE 0 ML IV SCH ×2 (09:23→20:08)
[2021-02-01] MEDS: ACETAMINOPHEN 325 MG TAB PO PRN (11:40)
--- NOTE | 2021-02-01 13:36 | Consultation Report ---
DATE OF CONSULTATION: 02/01/2021. CHIEF COMPLAINT: Right foot osteomyelitis. HISTORY OF PRESENT ILLNESS: Ms. Simpson is a 60-year-old female with a past medical history significant for peripheral vascular disease, status post multiple vascular procedures, the most recent of which was angioplasty and stenting of her fem-pop artery on 11/14/2020 with debridement of necrotic wounds from her right foot by Dr. Lomeli with [facility]. Medical history also includes type 2 diabetes, neuropathy, Charcot foot, dyslipidemia, diabetic retinopathy, obstructive sleep apnea, chronic kidney disease stage III, morbid obesity, chronic diastolic congestive heart failure, and esophagitis. She was admitted to the hospital yesterday with issue with vaginal bleeding. She was found to have a low hemoglobin at 6.3 and was transfused in the emergency room. She was then admitted to the internal medicine service. She denies any fevers or chills prior to admission. However, after getting the blood transfusion, she was febrile the last 2 days. She states that she has always had a little bit of redness on the anterior aspect of her lower leg, likely from venous stasis changes. However, she has developed redness around the entirety of the right foot and up to the ankle just in the last few days. Because of her neuropathy, she is not able to feel any pain in her foot. She has been walking around in a Cam boot. She has been applying silver impregnated dressings on her own over the wound in the lateral foot. PAST MEDICAL HISTORY: As per HPI. PAST SURGICAL HISTORY: Multiple vascular procedures at the lower extremities, including the recent surgery in November as per the HPI. MEDICATIONS: Reviewed in the chart. She is currently on cefepime for IV antibiotics. Also on Eliquis. FAMILY HISTORY: Positive for stroke in her sister, son with diabetes, father with heart problems and emphysema, and the mother with rheumatoid arthritis and hypertension. SOCIAL HISTORY: She is a previous smoker, quit in 2014. Denies alcohol and illicits. Lives with her . REVIEW OF SYSTEMS: As per HPI. PHYSICAL EXAMINATION: She is a pleasant female, alert and oriented x 3, in no acute distress. She is morbidly obese with a body mass index in the 40s. Right foot exam reveals the patient to have a large wound over the lateral aspect of her foot measuring approximately 3 x 10 cm. She has intense erythema surrounding this lateral foot wound that extends on to the dorsum of the foot and proximally up to the level of the ankle joint. Sensation reveals her to have diminished sensation to light touch starting about 6 cm above the ankle joint and really absent sensation in a stocking glove distribution distal to this. She does have intact ankle range of motion with no pain behaviors. She has a loss of her arch consistent with her known Charcot midfoot arthropathy. Pulses are not palpable. RESULTS REVIEWED: MRI that was done recently is reviewed. This is compared with the previous MRI done back in October. I agree with the radiologist that there is extensive bone marrow edema within the mid foot all the way up into the distal tibia with findings consistent with osteomyelitis. I do not visualize any soft tissue abscesses. CRP was markedly elevated at 17, ESR is elevated at 50, and her white count was elevated at 17 on admission, now down to 13. IMPRESSION: A 60-year-old female, admitted for vaginal bleeding, which has now been corrected, with osteomyelitis involving her midfoot, hindfoot, ankle and distal tibia. PLAN: I discussed the diagnosis with the patient. This is going to be nearly impossible to treat with antibiotic therapy and therefore she is likely looking at needing to have a [id number] amputation. She is not currently septic or medically unstable and therefore I would like to have her follow up with her vascular surgeon, Dr. Lomeli, to have her perform the amputation on an elective basis, as her underlying vasculopathy places her at risk for wound healing problems . Continue dressing changes and empiric antibiotic therapy. She says her scheduled followup with Dr. Lomeli is not until 02/25/2021 and I recommend this gets moved up to the end of this week or early next week. She can weight bear as tolerated on this in her boot. Orthopedics will sign off. Job ID: [id number] MTDD
--- NOTE | 2021-02-01 15:53 | Electrocardiogram Report ---
Test Reason : Blood Pressure : / mmHG Vent. Rate : 079 BPM Atrial Rate : 079 BPM P-R Int : 166 ms QRS Dur : 102 ms QT Int : 390 ms P-R-T Axes : 006 -34 030 degrees QTc Int : 447 ms Normal sinus rhythm Left axis deviation Abnormal ECG When compared with ECG of 12-NOV-2020 06:02, [place] interval has decreased Confirmed by Darnell Burdick ([id number]) on 02/01/2021 3:52:48 PM Referred By: Kaila Freitas Confirmed By:Darnell Burdick
--- NOTE | 2021-02-01 15:55 | Hospitalist Progress Note ---
Date of Service February 01, 2021 Assessment & Plan (1) Anemia: (2) Acute blood loss anemia: (3) Vaginal bleeding: (4) Peripheral arterial disease: Plan: This is a 60-year-old female who presents with vaginal bleeding. Vaginal bleeding: Acute blood loss anemia Patient has triple anticoagulation with Eliquis, aspirin and Plavix. Admitting provider discussed with vascular surgery at [place], Dr. Nayan Dover semiconductors wafer breaker for Dr. Lomeli. He said okay to stop all the medication, aspirin, Plavix, and Eliquis for now and when the vaginal bleeding is under control, to restart as soon as possible, and she can restart possibly with Plavix and Eliquis. Will restart tomorrow. Her hemoglobin is 6.3 on admission. Received 3 units of PRBCs. Current hemoglobin at 8.5. Continue to monitor daily Hgb. Vaginal bleeding has now stopped. Trannsvaginal US shows thickened endometrium. LEGAL PRACTICE MANAGER consulted; recommended OP evaluation for endometrial biopsy. Peripheral vascular disease: Multiple procedures in the lower extremities. Currently, holding aspirin, Plavix, and Eliquis as above. Hgb remains stable. Restart with the Plavix and Eliquis as soon as possible and follow up with vascular surgery, Dr. Lomeli. Right midfoot diabetic foot ulcer: Has this chronically. Follows with her vascular surgeon, Dr. Lomeli. Patient reports seeing her vascular surgeon [facility] at [facility], last time about a week ago. Patient reports that her wound is healing well. Consult wound care. Will get the cultures. Blood cultures negative thus far. Leukocytosis, white blood cell count 17,000 on admission, WBC today at 13.09 from 12.82. ESR at 56, CRP at 17. MRi of the foot revealed interval development of extensive marrow signal abnormality and soft tissue thickening within the right midfoot, hindfoot, right tibia and likely the right fibula, partially imaged on this exam. This is contiguous with with the lateral mid foot wound. This is new since MRI October 23, 2020. The findings suggest extensive osteomyelitis superimposed upon a neuropathic arthropathy. Rapid progression of neuropathic arthropathy is considered less likely. Extensive infectious process is the diagnosis of exclusion. Orthopaedics have been consulted. Continue with cefepime; will start vancomycin as well. Diabetes: The patient is on sliding scale and Novolin R. Hold the home medications. As per the EPIC, she is on Novolin N 33 units in the a.m. and 30 units in p.m. We will hold the Novolin for now and continue sliding scale and place her on Lantus 15 units b.i.d. History of acute kidney injury on chronic kidney disease stage III: Baseline creatinine around 1.5, recently it was 1.8, on admission creatinine is 1.69. Monitor BMP, try to avoid nephrotoxic agents. History of chronic diastolic congestive heart failure: Hold Lasix, losartan. Hypertension: On metoprolol and diuretics and losartan. We will monitor blood pressure. Hyperlipidemia: On statin. Obesity: Needs counseling. Obstructive sleep apnea: The patient is not using CPAP or oxygen currently. DVT prophylaxis: sequential compression devices. DISPOSITION: Closely monitor in the [employer] tele. PT/OT prior to discharge. Social service to help with discharge planning. Admission and Anticipated Discharge Date Admission Date: January 30, 2021 Subjective Patient is comfortably in the bed. No further episodes of vaginal bleeding. Denies any active complaints at the moment. Denies any chest pain or shortness of breath. Denies any abdominal pain, diarrhea or dysuria. Review of Systems Review of Systems: All systems reviewed & are unremarkable except as noted in HPI & below Physical Exam Physical Exam: General: A&Ox3 HENT: NCAT, MMM, EOMI Eyes: PERRLA Neck: Supple, normal range of motion CVS: normal rate and rhythm Resp: b/l good breath sounds Abdomen: Soft, ND/NT Extremities: No c/c/e Neuro: face symmetric, strength grossly equal, no focal deficit Skin: warm and dry, no rashes/lesions/errythema MSK: normal ROM, no joint swelling/erythema Results & Data Results & Data ([facility]) Vital Signs (Past 12 Hours) Vital Signs Temp Pulse Pulse Resp BP BP Pulse Ox 02/01/21 15:24 37.3 C 75 18 96/53 L 99 02/01/21 14:56 76 02/01/21 12:35 36.6 C 02/01/21 11:32 38.2 C H 83 18 131/66 96 02/01/21 07:17 37.8 C H 80 18 109/58 L 95 02/01/21 07:00 73 (1) Anemia Anemia type: other cause Other causes of anemia: acute posthemorrhagic Qualified Code(s): D62 - Acute posthemorrhagic anemia
[2021-02-01] MEDS ORDERED: VANCOMYCIN CONSULT ACTIVE PRN (16:28)
[2021-02-01] MEDS ORDERED: VANCOMYCIN HCL 2,500 MG in SODIUM CHLORIDE 0.9% 500 ML IV ONE (16:45)
[2021-02-01] MEDS: DAPTOmycin 425 MG in SYRINGE 0 ML IV SCH (17:25)
[2021-02-02] MEDS: INSULIN ASPART 100 UNITS/ML 3 ML PEN SC SCH ×5 (00:19→22:00)
[2021-02-02] MEDS: traMADol HCL 50 MG TABLET PO PRN ×3 (03:43→22:16)
[2021-02-02] MEDS: CEFEPIME 2,000 MG in SYRINGE 0 ML IV SCH (08:53)
[2021-02-02] MEDS: METOPROLOL TARTRATE 25 MG TAB PO SCH ×2 (08:55→22:18)
[2021-02-02] MEDS: FERROUS SULFATE 325 MG TAB PO SCH (08:55)
[2021-02-02] MEDS: CHOLECALCIFEROL 1,000 UNITS 25 MCG TAB PO SCH (08:55)
[2021-02-02] MEDS: MAGNESIUM OXIDE 400 MG TAB PO SCH (08:55)
[2021-02-02] MEDS: INSULIN GLARGINE SOLOSTAR 100 UNITS/ML 3 ML PEN SC SCH ×2 (08:56→22:18)
--- NOTE | 2021-02-02 09:00 | XRay Report ---
XR foot RT min 3V routine CLINICAL HISTORY: Charcot foot. COMPARISON: Right foot radiographs November 11, 2020 and MRI of the right foot January 31, 2021. FINDINGS: Extensive right foot soft tissue swelling is noted. Note is again made of neuropathic arth ropathy of the right midfoot which was shown on radiographs of November 11, 2020. There has been interval development of extensive bony erosion throughout the right midfoot and hindfoot since prior examinati on. Specifically, erosion of the base of the right fifth metatarsal is noted. There are also erosions of the base of the fourth metatarsal as well as the cuboid, lateral cuneiform, calcaneus, talus and distal right tibia. There are indeterminate ossific/calcific densities posterior to the distal right tibia and fibula. IMPRESSION: Interval development of extensive bony erosions throughout the right midfoot and hindfoot , as described above. This is highly suggestive of osteomyelitis superimposed upon neuropathic arthro ezra. ACT 112: Negative or not required by law. Electronically signed by: Azael Morton M.D. 02/02/2021 8:58 AM
[2021-02-02 09:23] LABS: BUN Creatinine Ratio 15.9 (10-20); Calcium 8.8 mg/dl (8.5-10.1); Creatinine Clr Calc Pharmacy 45.4 ml/min; Est GFR (African American) 46.1 ml/min; Est GFR (Non-African American) 39.8 ml/min
[2021-02-02 09:29] LABS: Basophils # (auto) 0.04 K/uL (0-0.2); Basophils % (auto) 0.3 %; Eosinophils # (auto) 0.26 K/uL (0-0.5); Eosinophils % (auto) 1.8 %; Hematocrit (blood only) 25.4 % (37-47); Hemoglobin 8.2 g/dL (12.0-16.0); Immature Granulocytes # (auto) 0.07 K/uL (0.00-0.02); Immature Granulocytes % (auto) 0.5 %; Lymphocytes % (auto) 14.3 %; Mean Corpuscular Hemoglobin 26.1 pg (25-34); Mean Corpuscular Hgb Conc 32.3 g/dL (32-36); Mean Corpuscular Volume 80.9 fL (80-100); Mean Platelet Volume 9.4 fL (7.4-10.4); Monocytes # (auto) 1.65 K/uL (0.11-0.59); Monocytes % (auto) 11.2 %; Neutrophils # (auto) 10.61 K/uL (1.4-6.5); Neutrophils % (auto) 71.9 %; Platelet Count 404 K/uL (130-400); RDW Coefficient of Variation 17.3 % (11.5-14.5); RDW Standard Deviation 51.4 fL (36.4-46.3); Red Blood Count 3.14 M/uL (4.2-5.4); White Blood Count 14.73 K/uL (4.8-10.8)
[2021-02-02] MEDS: SODIUM CHLORIDE 0.9% 1000ML 1,000 ML IV SCH (10:51)
[2021-02-02] MEDS: CLOPIDOGREL BISULFATE 75 MG TAB PO SCH (10:51)
[2021-02-02] MEDS: APIXABAN 2.5 MG TAB PO SCH ×2 (10:51→22:17)
--- NOTE | 2021-02-02 10:58 | Ultrasound Report ---
RIGHT LOWER EXTREMITY VENOUS DOPPLER HISTORY: RLE swelling COMPARISON STUDY: None. FINDINGS: There is normal compressibility, flow, and augmentation within the right lower extremity de ep venous system. The right calf vessels were suboptimally assessed due to the patient's body habitus and subcutaneous edema. IMPRESSION: No DVT within the right lower extremity ACT 112: Negative or not required by law. Electronically signed by: Domo Morales M.D. 02/02/2021 10:57 AM
[2021-02-02] MEDS: ACETAMINOPHEN 325 MG TAB PO PRN (11:55)
--- NOTE | 2021-02-02 14:47 | Hospitalist Progress Note ---
Date of Service February 02, 2021 Assessment & Plan (1) Anemia: (2) Acute blood loss anemia: (3) Vaginal bleeding: (4) Peripheral arterial disease: Plan: This is a 60-year-old female who presents with vaginal bleeding. Vaginal bleeding: Acute blood loss anemia Patient has triple anticoagulation with Eliquis, aspirin and Plavix. Admitting provider discussed with vascular surgery at [facility], Dr. Nayan Dover rn lactation consultant for Dr. Lomeli. He said okay to stop all the medication, aspirin, Plavix, and Eliquis for now and when the vaginal bleeding is under control, to restart as soon as possible, and she can restart possibly with Plavix and Eliquis. Today hemoglobin is stable. Plavix and Eliquis has been restarted. If hgb remains stbale an no further episode of bleeding afte starting Plavix/Eliquis, patient can be discharged tomorrow. Her hemoglobin is 6.3 on admission. Received 3 units of PRBCs. Current hemoglobin at 8.2. Continue to monitor daily Hgb. Vaginal bleeding has now stopped. Trannsvaginal US shows thickened endometrium. MANAGER MEETING consulted; recommended OP evaluation for endometrial biopsy. Peripheral vascular disease: Multiple procedures in the lower extremities. Currently, holding aspirin, restart Plavix, and Eliquis as above. Hgb remains stable. Follow up with vascular surgery, Dr. Lomeli; probably early next week. Right midfoot diabetic foot ulcer: Has this chronically. Follows with her vascular surgeon, Dr. Lomeli. Patient reports seeing her vascular surgeon regularly at [facility], last time about a week ago. Patient reports that her wound is healing well. Blood cultures negative thus far. Leukocytosis, white blood cell count 17,000 on admission, WBC today at 14.73 from 13.09. ESR at 56, CRP at 17. MRi of the foot revealed interval development of extensive marrow signal abnormality and soft tissue thickening within the right midfoot, hindfoot, right tibia and likely the right fibula, partially imaged on this exam. This is contiguous with with the lateral mid foot wound. This is new since MRI October 23, 2020. The findings suggest extensive osteomyelitis superimposed upon a neuropathic arthropathy. Rapid progression of neuropathic arthropathy is considered less likely. Extensive infectious process is the diagnosis of exclusion. Appreciate orthopedics input. Recommended the patient most likely will need be low the knee amputation and is unlikely to get better with antibiotics. Orthopedics recommended to follow-up with her vascular surgeon at [facility] plan for surgical intervention Continue with daptomycin/cefepime. Will have ID input. Recommend to get appointment next week with vascular surgery for amputation. Diabetes: The patient is on sliding scale and Novolin R. Hold the home medications. As per the [facility], she is on Novolin N 33 units in the a.m. and 30 units in p.m. We will hold the Novolin for now and continue sliding scale and place her on Lantus 15 units b.i.d. History of acute kidney injury on chronic kidney disease stage III: Baseline creatinine around 1.5, recently it was 1.8, on admission creatinine is 1.69. Today at 1.42. Monitor BMP, try to avoid nephrotoxic agents. History of chronic diastolic congestive heart failure: Hold losartan. Restart WOODS MANAGER lasix. Hypertension: On metoprolol and diuretics and losartan. We will monitor blood pressure. Hyperlipidemia: On statin. Obesity: Needs counseling. Obstructive sleep apnea: The patient is not using CPAP or oxygen currently. DVT prophylaxis: sequential compression devices. DISPOSITION: Closely monitor in the [employer] tele. PT/OT prior to discharge. Social service to help with discharge planning. Admission and Anticipated Discharge Date Admission Date: January 30, 2021 Subjective Patient doing okay. No further episodes of vaginal bleeding. Hemoglobin remains stable. Denies any chest pain, abdominal pain or dysuria. Review of systems negative. Denie any dizziness or any shortness of breath. Review of Systems Review of Systems: All systems reviewed & are unremarkable except as noted in HPI & below Physical Exam Physical Exam: General: A&Ox3 HENT: NCAT, MMM, EOMI Eyes: PERRLA Neck: Supple, normal range of motion CVS: normal rate and rhythm Resp: b/l good breath sounds Abdomen: Soft, ND/NT Extremities: Right lower extremity is more swollen than the left, right foot dressing in place, absence of any active discharge Neuro: face symmetric, strength grossly equal, no focal deficit Skin: warm and dry, no rashes/lesions/errythema MSK: normal ROM, no joint swelling/erythema Results & Data Results & Data ([facility]) Vital Signs (Past 12 Hours) Vital Signs Temp Pulse Pulse Resp BP Pulse Ox 02/02/21 14:33 36.9 C 65 18 117/60 97 02/02/21 12:01 37.1 C 67 18 115/66 98 02/02/21 07:15 37.0 C 73 16 105/60 99 02/02/21 07:00 72 02/02/21 04:53 36.3 C L 95 H 18 99/61 L 97 (1) Anemia Anemia type: other cause Other causes of anemia: acute posthemorrhagic Qualified Code(s): D62 - Acute posthemorrhagic anemia
[2021-02-02] MEDS: DAPTOmycin 425 MG in SYRINGE 0 ML IV SCH (17:21)
[2021-02-02] MEDS ORDERED: MEROPENEM CONSULT ACITVE PRN (19:53)
[2021-02-02] MEDS: MEROPENEM 500 MG in SYRINGE 0 ML IV SCH (22:22)
[2021-02-03] MEDS: MEROPENEM 500 MG in SYRINGE 0 ML IV SCH ×3 (05:39→20:57)
[2021-02-03] MEDS ORDERED: INSULIN ASPART 100 UNITS/ML 3 ML PEN SC SCH ×2 (07:30)
[2021-02-03] MEDS: FERROUS SULFATE 325 MG TAB PO SCH (09:05)
[2021-02-03] MEDS: CHOLECALCIFEROL 1,000 UNITS 25 MCG TAB PO SCH (09:05)
[2021-02-03] MEDS: METOPROLOL TARTRATE 25 MG TAB PO SCH ×2 (09:06→20:58)
[2021-02-03] MEDS: MAGNESIUM OXIDE 400 MG TAB PO SCH (09:06)
[2021-02-03] MEDS: APIXABAN 2.5 MG TAB PO SCH ×2 (09:06→20:58)
[2021-02-03] MEDS: CLOPIDOGREL BISULFATE 75 MG TAB PO SCH (09:06)
[2021-02-03] MEDS: INSULIN GLARGINE SOLOSTAR 100 UNITS/ML 3 ML PEN SC SCH ×2 (09:07→21:31)
[2021-02-03] MEDS: INSULIN ASPART 100 UNITS/ML 3 ML PEN SC SCH ×4 (09:08→21:31)
[2021-02-03] MEDS: traMADol HCL 50 MG TABLET PO PRN ×2 (09:30→20:57)
[2021-02-03] MEDS: FUROSEMIDE 80 MG TAB PO SCH (09:59)
--- NOTE | 2021-02-03 11:44 | Hospitalist Progress Note ---
Date of Service February 03, 2021 Assessment & Plan (1) Postmenopausal bleeding: Plan: Vaginal bleeding has now stopped. Trannsvaginal US shows thickened endometrium. OPERATIONS PROGRAM MANAGER consulted; recommended OP evaluation for endometrial biopsy. (2) Diabetic foot infection: Plan: Right midfoot diabetic foot ulcer: Has this chronically. Follows with her vascular surgeon, Dr. Lomeli. Patient reports seeing her vascular surgeon regularly at [facility], last time about a week ago. Patient reports that her wound is healing well. Blood cultures negative thus far. Leukocytosis present as well as a secondary cellulitis that is new since admission per patient. Pain in her foot is present and managed with Tramadol. Pulses are present with doppler. Elevated inflammatory markers. MRi of the foot suggest extensive osteomyelitis superimposed upon a neuropathic arthropathy. Rapid progression of neuropathic arthropathy is considered less likely. Extensive infectious process is the diagnosis of exclusion. Per ortho and ID antibiotics are unlikely to get better with antibiotics. Orthopedics recommended to follow-up with her vascular surgeon at [place] plan for surgical intervention such as possible amputation. Continue with daptomycin/Merrem PICC consent obtained today for placement. Will cont to monitor cellulitis and wound on antibiotics. If this progresses, she may need more imminient surgery. (3) Osteomyelitis of right foot: Plan: cont broad spectrum abx per plan above. (4) Peripheral arterial disease: Plan: Restarted Plavix and Eliquis yesterday, and some extra bleeding present, ASA held--Hgb remains stable. Follow up with vascular surgery, Dr. Lomeli; appt 02/15 (5) Acute blood loss anemia: Plan: Her hemoglobin is 6.3 on admission. Received 3 units of PRBCs. . Patient has triple anticoagulation with Eliquis, aspirin and Plavix. Blood thinners held on admission, and then restarted yesterday. Monitor for continued blood loss. (6) Diabetes mellitus type 2, uncontrolled: Plan: The patient is on sliding scale and Novolin R. Hold the home medications. As per the EPIC, she is on Novolin N 33 units in the a.m. and 30 units in p.m. We will hold the Novolin for now and continue sliding scale and place her on Lantus 15 units b.i.d. (7) Diabetic ulcer of left great toe: Plan: cont plan as above. Cont local wound care (8) Charcot's joint of foot due to diabetes: Plan: chronic, ambulates with a cam boot at baseline. (9) Chronic kidney disease (CKD), stage III (moderate): Plan: creatinine around baseline. Monitor PRN (10) Hypertension: Plan: On metoprolol and diuretics, at goal. (11) DVT prophylaxis: Plan: Eliotis Full Code Dispo-cont to monitor for now and likely to home with home health? and close follow-up by Vascular Surgery-appointment on 02/15. She was consented for a PICC line today and will plan to continue this for 6 weeks. We discussed the concerns from ID and Ortho that her severe vascular disease may inhibit good penetration of antibiotics in this area. She verbalized understanding. She also verbalized understanding of the importance for following up with outpatient SPINE SUPERVISOR for an endometrial biopsy. Lorena Mcqueen, DO Admission and Anticipated Discharge Date Admission Date: January 30, 2021 Subjective 60 yo F with chronic PAD, complicated DMII, on anticoagulation presented with vaginal bleeding Reports cessation of vaginal bleeding We discussed the importance of following up with SPINE SUPERVISOR for endometrial bx Reports pain in her right foot that is about the same as it always has been Recently restarted her blood thinners. Wound is draining blood today Patient reports erythema in her right foot new since admission. No fevers and otherwise she reports feeling fine No chest pain, SOB or other issues. She wraps her foot daily herself. Review of Systems Review of Systems: All systems were reviewed and negative except as indicated in HPI above. Physical Exam Physical Exam: CONSTITUTIONAL: obese, vitals as above, generally well- appearing EYES: normal conjunctivae, no scleral icterus ENT: external ear and nose normal, oropharynx clear, MMM NECK: trachea midline RESPIRATORY: clear to auscultation bilaterally, no crackles, rales or wheezes, normal respiratory effort CARDIOVASCULAR: regular rate and rhythm, 2/6 MARLIN heard at LSB, no gallops or rubs, no JVD, 2+ peripheral edema in distal RLE around her wound GASTROINTESTINAL: soft, nontender,nondistended. MUSCULOSKELETAL: strength 5/5 throughout, head is normocephalic and atraumatic SKIN: warm and dry, RLE: large bleeding wound on lateral side of right foot, small wound on right great toe (distal tip)-appears to be closed and eschar, small pressure ulcer on her right heel. Bright red erythema in distal half of her RLE. Associated edema. R leg > L leg in terms of overall size and circumference. Patient noted some distended R upper thigh veins that were new. NEUROLOGIC: CN 2-12 grossly intact, no sensory deficit, normal cognition, normal speech, no tremor PSYCHIATRIC: alert cooperative and oriented to person, place and time. Results & Data Results & Data ([facility]) Vital Signs (Past 12 Hours) Vital Signs Temp Pulse Pulse Resp BP Pulse Ox 02/03/21 08:00 37.1 C 73 18 137/71 97 02/03/21 07:00 72 02/03/21 04:43 37.3 C 70 18 96/61 L 97 Medications Administered Current Inpatient Medications Acetaminophen (Acetaminophen 325 Mg Tab) 650 mg PO Q4H PRN PRN Reason: Pain or Fever Stop: 03/01/21 22:23 Last Admin: 02/02/21 11:55 Dose: 650 mg Documented by: Apixaban (Apixaban 2.5 Mg Tab) 5 mg PO BID PER Stop: 03/04/21 09:44 Last Admin: 02/03/21 09:06 Dose: 5 mg Documented by: Clopidogrel Bisulfate (Clopidogrel Bisulfate 75 Mg Tab) 75 mg PO QAM PER Stop: 03/04/21 09:44 Last Admin: 02/03/21 09:06 Dose: 75 mg Documented by: Ferrous Sulfate (Ferrous Sulfate 325 Mg Tab) 325 mg PO DAILY PER Stop: 03/02/21 08:59 Last Admin: 02/03/21 09:05 Dose: 325 mg Documented by: Furosemide (Furosemide 80 Mg Tab) 80 mg PO MoWeFr PER Stop: 03/03/21 08:59 Last Admin: 02/03/21 09:59 Dose: 80 mg Documented by: Daptomycin 750 mg/ Syringe 15 mls @ 7.5 mls/min IV Q24H PER; Protocol Stop: 03/17/21 16:59 Meropenem 500 mg/ Syringe 10 mls @ 2 mls/min IV Q8H PER; Protocol Stop: 02/16/21 19:59 Last Admin: 02/03/21 05:39 Dose: 2 mls/min Documented by: Insulin Aspart (Insulin Aspart 100 Units/Ml 3 Ml Pen) 0 units SC ACHS PER Stop: 03/04/21 22:44 Last Admin: 02/03/21 09:08 Dose: 9 units Documented by: Insulin Glargine (Insulin Glargine Solostar 100 Units/Ml 3 Ml Pen) 25 units SC BID [facility] Stop: 03/01/21 22:59 Last Admin: 02/03/21 09:07 Dose: 25 units Documented by: Magnesium Oxide (Magnesium Oxide 400 Mg Tab) 800 mg PO QAM [facility] Stop: 03/02/21 08:59 Last Admin: 02/03/21 09:06 Dose: 800 mg Documented by: Metoprolol Tartrate (Metoprolol Tartrate 25 Mg Tab) 25 mg PO BID [facility] Stop: 03/01/21 22:23 Last Admin: 02/03/21 09:06 Dose: 25 mg Documented by: Miscellaneous Information (Meropenem Consult Acitve) 1 ea N/A UD PRN PRN Reason: Consult Stop: 03/04/21 19:52 Miscellaneous Information (Daptomycin Consult Active) 1 ea N/A UD PRN PRN Reason: Consult Stop: 03/05/21 09:05 Nitroglycerin (Nitroglycerin Sl 0.4 Mg/Tab Tab) 0.4 mg SL UD PRN PRN Reason: Chest Pain Stop: 03/01/21 22:23 Ondansetron HCl (Ondansetron Inj 2 Mg/Ml 2 Ml Vial) 4 mg IV Q6H PRN PRN Reason: Nausea Stop: 03/01/21 22:23 Polyethylene Glycol (Polyethylene (Miralax) 17 Gm Pack) 17 gm PO DAILY PRN PRN Reason: Constipation Stop: 03/01/21 22:23 Rosuvastatin Calcium (Rosuvastatin Calcium 20 Mg Tab) 40 mg PO HS [facility] Stop: 03/01/21 22:23 Last Admin: 01/31/21 19:50 Dose: 40 mg Documented by: Tramadol HCl (Tramadol Hcl 50 Mg Tablet) 50 mg PO Q8H PRN PRN Reason: Pain Stop: 03/01/21 22:23 Last Admin: 02/03/21 09:30 Dose: 50 mg Documented by: Vitamin D (Cholecalciferol 1,000 Units 25 Mcg Tab) 5,000 units PO QAM [facility] Stop: 03/02/21 08:59 Last Admin: 02/03/21 09:05 Dose: 5,000 units Documented by: (1) Diabetes mellitus type 2, uncontrolled Glycemic state: with hyperglycemia Qualified Code(s): E11.65 - Type 2 diabetes mellitus with hyperglycemia (2) Hypertension Hypertension type: essential hypertension Qualified Code(s): I10 - Essential (primary) hypertension
[2021-02-03] MEDS: DAPTOmycin 750 MG in SYRINGE 0 ML IV SCH (17:13)
[2021-02-04] MEDS: MEROPENEM 500 MG in SYRINGE 0 ML IV SCH ×3 (06:17→17:43)
[2021-02-04] MEDS: traMADol HCL 50 MG TABLET PO PRN ×2 (06:22→14:05)
[2021-02-04 07:03] LABS: Hematocrit (blood only) 23.2 % (37-47); Hemoglobin 7.3 g/dL (12.0-16.0); Mean Corpuscular Hemoglobin 25.9 pg (25-34); Mean Corpuscular Hgb Conc 31.5 g/dL (32-36); Mean Corpuscular Volume 82.3 fL (80-100); Mean Platelet Volume 9.2 fL (7.4-10.4); Platelet Count 358 K/uL (130-400); RDW Coefficient of Variation 17.4 % (11.5-14.5); Red Blood Count 2.82 M/uL (4.2-5.4); White Blood Count 9.82 K/uL (4.8-10.8)
[2021-02-04 07:29] LABS: BUN Creatinine Ratio 21.9 (10-20); Calcium 9.1 mg/dl (8.5-10.1); Creatinine Clr Calc Pharmacy 51.2 ml/min; Est GFR (African American) 53.3 ml/min; Est GFR (Non-African American) 45.9 ml/min; Potassium 3.3 mmol/L (3.5-5.1)
[2021-02-04 07:30] LABS: C Reactive Protein 15.6 mg/dl (0-0.29)
[2021-02-04] MEDS: APIXABAN 2.5 MG TAB PO SCH (09:06)
[2021-02-04] MEDS: CLOPIDOGREL BISULFATE 75 MG TAB PO SCH (09:06)
[2021-02-04] MEDS: METOPROLOL TARTRATE 25 MG TAB PO SCH ×2 (09:06→21:07)
[2021-02-04] MEDS: MAGNESIUM OXIDE 400 MG TAB PO SCH (09:07)
[2021-02-04] MEDS: CHOLECALCIFEROL 1,000 UNITS 25 MCG TAB PO SCH (09:07)
[2021-02-04] MEDS: FERROUS SULFATE 325 MG TAB PO SCH (09:07)
[2021-02-04] MEDS: INSULIN GLARGINE SOLOSTAR 100 UNITS/ML 3 ML PEN SC SCH ×2 (09:10→21:03)
[2021-02-04] MEDS: INSULIN ASPART 100 UNITS/ML 3 ML PEN SC SCH ×4 (09:11→21:02)
--- NOTE | 2021-02-04 14:08 | Hospitalist Progress Note ---
Date of Service February 04, 2021 Assessment & Plan (1) Postmenopausal bleeding: Plan: Vaginal bleeding has now stopped. Trannsvaginal US shows thickened endometrium. FINANCIAL AUDITOR consulted; recommended OP evaluation for endometrial biopsy. (2) Diabetic foot infection: Plan: Right midfoot diabetic foot ulcer: Has this chronically. Follows with her vascular surgeon, Dr. Lomeli. Blood cultures negative thus far. Leukocytosis present as well as a secondary cellulitis that is new since admission per patient. Pain in her foot is present and managed with Tramadol. Pulses are present with doppler. Elevated inflammatory markers. MRI of the foot suggest extensive osteomyelitis superimposed upon a neuropathic arthropathy. Rapid progression of neuropathic arthropathy is considered less likely. Extensive infectious process is the diagnosis of exclusion. Per ortho and ID antibiotics are unlikely to get better with antibiotics. Orthopedics recommended to follow-up with her vascular surgeon at [facility] plan for surgical intervention such as possible amputation. Continue with daptomycin/Merrem PICC placed 02/03 Will cont to monitor cellulitis and wound on antibiotics. Redness appears to have slightly progressed. Cont to monitor closely. (3) Osteomyelitis of right foot: Plan: cont broad spectrum abx per plan above. (4) Peripheral arterial disease: Plan: Restarted Plavix and Eliquis 02/02, and some extra bleeding present, ASA held--Hgb dropped this am, blood thinners held, especially in light of new "joint weakness." Follow up with vascular surgery, Dr. Lomeli; appt 02/15. (5) Acute blood loss anemia: Plan: Her hemoglobin is 6.3 on admission. Received 3 units of PRBCs. . Patient has triple anticoagulation with Eliquis, aspirin and Plavix. Blood thinners held on admission, and then restarted 02/02. Drop in H/H as above. Held blood thinners again now. (6) Diabetes mellitus type 2, uncontrolled: Plan: around goal, cont current insulin regimen. (7) Diabetic ulcer of left great toe: Plan: cont plan as above. Cont local wound care (8) Charcot's joint of foot due to diabetes: Plan: chronic, ambulates with a cam boot at baseline. (9) Chronic kidney disease (CKD), stage III (moderate): Plan: creatinine around baseline. Monitor PRN (10) Hypertension: Plan: On metoprolol and diuretics, at goal. (11) DVT prophylaxis: Plan: Eliquis Full Code Dispo-cont to monitor for now and likely to home with home health? and close follow-up by Vascular Surgery-appointment on 02/15. If wound and cellulitis continues to worsen, will need to transfer to [facility] for consideration of more definitive surgical treatment. Lorena Mcqueen DO Admission and Anticipated Discharge Date Admission Date: January 30, 2021 Subjective 60 yo F with chronic PAD, complicated DMII, on anticoagulation presented with vaginal bleeding, also found to have worsening diabetic foot infection Continues to report cessation of vaginal bleeding despite restarting Plavix and Eliquis Worsening anemia with a hemoglobin of 7.3 noted this morning. Although morning Eliquis and Plavix was given, this was put on hold out of concern for worsening acute blood loss anemia. Repeat H&H this afternoon was 8.5/26.3. Patient reports increased joint weakness in her upper arms that is noted more so today, question symptomatic anemia. Denies chest pain or shortness of breath Pain controlled in foot with tramadol +cold intolerance Review of Systems Review of Systems: All systems were reviewed and negative except as indicated in HPI above. Physical Exam Physical Exam: CONSTITUTIONAL: obese, vitals as above, generally well- appearing EYES: normal conjunctivae, no scleral icterus ENT: external ear and nose normal, oropharynx clear, MMM NECK: trachea midline RESPIRATORY: clear to auscultation bilaterally, no crackles, rales or wheezes, normal respiratory effort CARDIOVASCULAR: regular rate and rhythm, 2/6 MARLIN heard at LSB, no gallops or rubs, no JVD, 2+ peripheral edema in distal RLE around her wound GASTROINTESTINAL: soft, nontender,nondistended. MUSCULOSKELETAL: strength 5/5 throughout, head is normocephalic and atraumatic SKIN: warm and dry, RLE: large bleeding wound on lateral side of right foot- wrapped wtih gauze and TATY, small wound on right great toe (distal tip)-appears to be closed and eschar, small pressure ulcer on her right heel. Bright red erythema in distal half of her RLE. Associated edema. R leg > L leg in terms of overall size and circumference. NEUROLOGIC: CN 2-12 grossly intact, no sensory deficit, normal cognition, normal speech, no tremor PSYCHIATRIC: alert cooperative and oriented to person, place and time. Results & Data Results & Data ([facility]) Vital Signs (Past 12 Hours) Vital Signs Temp Pulse Resp BP Pulse Ox 02/04/21 13:28 36.4 C L 79 18 166/71 H 100 02/04/21 11:14 37.1 C 68 18 134/63 99 02/04/21 08:00 36.6 C 59 L 18 138/53 L 99 Laboratory Results Short CBC 02/04/21 Range/Units 06: WBC 9.82 (4.8-10.8) K/uL Hgb 7.3 L (12.0-16.0) g/dL Hct 23.2 L (37-47) % Plt Count 358 (130-400) K/uL BMP 02/04/21 06:26 Sodium 134 L Potassium 3.3 L Chloride 98 Carbon Dioxide 29 BUN 28 H Creatinine 1.26 H Glucose 159 H Calcium 9.1 Medications Administered Current Inpatient Medications Acetaminophen (Acetaminophen 325 Mg Tab) 650 mg PO Q4H PRN PRN Reason: Pain or Fever Stop: 03/01/21 22:23 Last Admin: 02/02/21 11:55 Dose: 650 mg Documented by: Apixaban (Apixaban 2.5 Mg Tab) 5 mg PO BID [facility] Stop: 03/04/21 09:44 Last Admin: 02/04/21 09:06 Dose: 5 mg Documented by: Clopidogrel Bisulfate (Clopidogrel Bisulfate 75 Mg Tab) 75 mg PO QAM [facility] Stop: 03/04/21 09:44 Last Admin: 02/04/21 09:06 Dose: 75 mg Documented by: Ferrous Sulfate (Ferrous Sulfate 325 Mg Tab) 325 mg PO DAILY PER Stop: 03/02/21 08:59 Last Admin: 02/04/21 09:07 Dose: 325 mg Documented by: Furosemide (Furosemide 80 Mg Tab) 80 mg PO MoWeFr [facility] Stop: 03/03/21 08:59 Last Admin: 02/03/21 09:59 Dose: 80 mg Documented by: Heparin Sodium (Beef Lung) (Heparin 10 Unit/Ml 5 Ml Flush) 5 ml FLUSH PRN PRN PRN Reason: Flush Stop: 03/05/21 22:59 Last Admin: 02/04/21 12:26 Dose: 5 ml Documented by: Daptomycin 750 mg/ Syringe 15 mls @ 7.5 mls/min IV Q24H PER; Protocol Stop: 03/17/21 16:59 Last Admin: 02/03/21 17:13 Dose: 7.5 mls/min Documented by: Meropenem 500 mg/ Syringe 10 mls @ 2 mls/min IV Q6H [facility]; Protocol Stop: 02/16/21 11:59 Last Admin: 02/04/21 12:22 Dose: 2 mls/min Documented by: Insulin Aspart (Insulin Aspart 100 Units/Ml 3 Ml Pen) 0 units SC ACHS [facility] Stop: 03/04/21 22:44 Last Admin: 02/04/21 12:22 Dose: 14 units Documented by: Insulin Glargine (Insulin Glargine Solostar 100 Units/Ml 3 Ml Pen) 25 units SC BID [facility] Stop: 03/01/21 22:59 Last Admin: 02/04/21 09:10 Dose: 25 units Documented by: Magnesium Oxide (Magnesium Oxide 400 Mg Tab) 800 mg PO QAM [facility] Stop: 03/02/21 08:59 Last Admin: 02/04/21 09:07 Dose: 800 mg Documented by: Metoprolol Tartrate (Metoprolol Tartrate 25 Mg Tab) 25 mg PO BID [facility] Stop: 03/01/21 22:23 Last Admin: 02/04/21 09:06 Dose: 25 mg Documented by: Miscellaneous Information (Meropenem Consult Acitve) 1 ea N/A UD PRN PRN Reason: Consult Stop: 03/04/21 19:52 Miscellaneous Information (Daptomycin Consult Active) 1 ea N/A UD PRN PRN Reason: Consult Stop: 03/05/21 09:05 Nitroglycerin (Nitroglycerin Sl 0.4 Mg/Tab Tab) 0.4 mg SL UD PRN PRN Reason: Chest Pain Stop: 03/01/21 22:23 Ondansetron HCl (Ondansetron Inj 2 Mg/Ml 2 Ml Vial) 4 mg IV Q6H PRN PRN Reason: Nausea Stop: 03/01/21 22:23 Polyethylene Glycol (Polyethylene (Miralax) 17 Gm Pack) 17 gm PO DAILY PRN PRN Reason: Constipation Stop: 03/01/21 22:23 Rosuvastatin Calcium (Rosuvastatin Calcium 20 Mg Tab) 40 mg PO HS [facility] Stop: 03/01/21 22:23 Last Admin: 01/31/21 19:50 Dose: 40 mg Documented by: Tramadol HCl (Tramadol Hcl 50 Mg Tablet) 50 mg PO Q8H PRN PRN Reason: Pain Stop: 03/01/21 22:23 Last Admin: 02/04/21 14:05 Dose: 50 mg Documented by: Vitamin D (Cholecalciferol 1,000 Units 25 Mcg Tab) 5,000 units PO QAM [facility] Stop: 03/02/21 08:59 Last Admin: 02/04/21 09:07 Dose: 5,000 units Documented by: (1) Diabetes mellitus type 2, uncontrolled Glycemic state: with hyperglycemia Qualified Code(s): E11.65 - Type 2 diabetes mellitus with hyperglycemia (2) Hypertension Hypertension type: essential hypertension Qualified Code(s): I10 - Essential (primary) hypertension
[2021-02-04 14:48] LABS: Hematocrit (blood only) 26.3 % (37-47); Hemoglobin 8.5 g/dL (12.0-16.0)
[2021-02-04] MEDS: DAPTOmycin 750 MG in SYRINGE 0 ML IV SCH (17:43)
[2021-02-04] MEDS: SACCHAROMYCES BOULARDII 250 MG CAP PO SCH (21:02)
[2021-02-05] MEDS: MEROPENEM 500 MG in SYRINGE 0 ML IV SCH ×4 (00:55→17:33)
[2021-02-05] MEDS: traMADol HCL 50 MG TABLET PO PRN ×3 (01:26→17:30)
[2021-02-05 06:09] LABS: Hematocrit (blood only) 25.9 % (37-47); Hemoglobin 8.2 g/dL (12.0-16.0); Mean Corpuscular Hemoglobin 26.1 pg (25-34); Mean Corpuscular Hgb Conc 31.7 g/dL (32-36); Mean Corpuscular Volume 82.5 fL (80-100); Mean Platelet Volume 8.9 fL (7.4-10.4); Platelet Count 450 K/uL (130-400); RDW Coefficient of Variation 17.6 % (11.5-14.5); RDW Standard Deviation 53.4 fL (36.4-46.3); Red Blood Count 3.14 M/uL (4.2-5.4)
[2021-02-05 06:38] LABS: BUN Creatinine Ratio 23.1 (10-20); C Reactive Protein 14.5 mg/dl (0-0.29); Calcium 9.6 mg/dl (8.5-10.1); Creatinine Clr Calc Pharmacy 54.7 ml/min; Est GFR (African American) 57.6 ml/min; Est GFR (Non-African American) 49.7 ml/min; Potassium 4.3 mmol/L (3.5-5.1)
[2021-02-05] MEDS: SACCHAROMYCES BOULARDII 250 MG CAP PO SCH (08:41)
[2021-02-05] MEDS: ACETAMINOPHEN 325 MG TAB PO PRN ×2 (08:41→17:31)
[2021-02-05] MEDS: METOPROLOL TARTRATE 25 MG TAB PO SCH ×2 (08:42→21:06)
[2021-02-05] MEDS: FERROUS SULFATE 325 MG TAB PO SCH (08:42)
[2021-02-05] MEDS: CHOLECALCIFEROL 1,000 UNITS 25 MCG TAB PO SCH (08:43)
[2021-02-05] MEDS: MAGNESIUM OXIDE 400 MG TAB PO SCH (08:43)
[2021-02-05] MEDS: INSULIN GLARGINE SOLOSTAR 100 UNITS/ML 3 ML PEN SC SCH ×2 (08:46→21:05)
[2021-02-05] MEDS: INSULIN ASPART 100 UNITS/ML 3 ML PEN SC SCH ×4 (08:46→21:04)
--- NOTE | 2021-02-05 11:09 | Hospitalist Progress Note ---
Date of Service February 05, 2021 Assessment & Plan (1) Postmenopausal bleeding: Plan: Vaginal bleeding has now stopped. Trannsvaginal US shows thickened endometrium. DUMPMAN consulted; recommended OP evaluation for endometrial biopsy. (2) Diabetic foot infection: Plan: Right midfoot diabetic foot ulcer: Has this chronically. Follows with her vascular surgeon, Dr. Lomeli. Blood cultures negative thus far. Leukocytosis present as well as a secondary cellulitis that is new since admission per patient. Cellulitis is imporved today on current IV abx (Dapto/Merrem) Pain in her foot is present and managed with Tramadol. Pulses are present with doppler. Elevated inflammatory markers expected-will trend as outpatient with treatment. MRI of the foot suggest extensive osteomyelitis superimposed upon a neuropathic arthropathy. Rapid progression of neuropathic arthropathy is considered less likely. Extensive infectious process is the diagnosis of exclusion. Per ortho and ID antibiotics are unlikely to get better with antibiotics. Orthopedics recommended to follow-up with her vascular surgeon at [place] plan for surgical intervention such as possible amputation. Continue with daptomycin/Merrem trial for now for 6 weeks PICC placed 02/03 Will plan for dc home with IV abx and followup on 02/15 with vascular as planned. (3) Osteomyelitis of right foot: Plan: cont broad spectrum abx per plan above. (4) Peripheral arterial disease: Plan: Restarted Plavix and Eliquis 02/02, and some extra bleeding present, ASA held--Hgb dropped this am, blood thinners held, especially in light of new "joint weakness." Follow up with vascular surgery, Dr. Lomeli; appt 02/15. (5) Acute blood loss anemia: Plan: Her hemoglobin is 6.3 on admission. Received 3 units of PRBCs. . Patient has triple anticoagulation with Eliquis, aspirin and Plavix. Blood thinners held on admission, and then restarted 02/02. Drop in H/H as above. Held blood thinners again now. Will continue to keep her off these for now with ongoing anemia and easy tendency to bleed from her wound. Outpatient vascular surgeon to restart as able in next week. (6) Diabetes mellitus type 2, uncontrolled: Plan: around goal, cont current insulin regimen. (7) Diabetic ulcer of left great toe: Plan: cont plan as above. Cont local wound care (8) Charcot's joint of foot due to diabetes: Plan: chronic, ambulates with a cam boot at baseline. Reports that her foot is "starting to turn" so family is bringing her boot tomorrow. (9) Chronic kidney disease (CKD), stage III (moderate): Plan: creatinine around baseline. Monitor PRN (10) Hypertension: Plan: On metoprolol and diuretics, at goal. (11) DVT prophylaxis: Plan: SCDs/chemoprophylaxis held in setting of bleeding and acute blood loss anemia. Full Code Dispo-cont to monitor for now and likely to home with home health? and close follow-up by Vascular Surgery-appointment on 02/15. If wound and cellulitis continues to worsen, will need to transfer to [facility] for consideration of more definitive surgical treatment. Lorena Mcqueen DO [facility] Hospitalist Admission and Anticipated Discharge Date Admission Date: January 30, 2021 Subjective 60 yo F with chronic PAD, complicated DMII, on anticoagulation presented with vaginal bleeding, also found to have worsening diabetic foot infection Reports the joint weakness from yesterday has resolved and she is moving her upper extremities now with ease Feels her leg is looking better Pain still present but managed with Tramadol Discussed the possibility of inpatient transfer and she prefers to go home if possible. Review of Systems Review of Systems: All systems were reviewed and negative except as indicated in HPI above. Physical Exam Physical Exam: CONSTITUTIONAL: obese, vitals as above, generally well- appearing EYES: normal conjunctivae, no scleral icterus ENT: external ear and nose normal, oropharynx clear, MMM NECK: trachea midline RESPIRATORY: clear to auscultation bilaterally, no crackles, rales or wheezes, normal respiratory effort CARDIOVASCULAR: regular rate and rhythm, 2/6 MARLIN heard at LSB, no gallops or rubs, no JVD, 2+ peripheral edema in distal RLE around her wound GASTROINTESTINAL: soft, nontender,nondistended. MUSCULOSKELETAL: strength 5/5 throughout, head is normocephalic and atraumatic SKIN: warm and dry, RLE: large bleeding wound on lateral side of right foot- wrapped wtih gauze and TATY, small wound on right great toe (distal tip)-appears to be closed and eschar, small pressure ulcer on her right heel. Bright red erythema in distal half of her RLE, which is improved from line drawn yesterday. Associated edema persists. R leg > L leg in terms of overall size and circumference. NEUROLOGIC: CN 2-12 grossly intact, no sensory deficit, normal cognition, normal speech, no tremor PSYCHIATRIC: alert cooperative and oriented to person, place and time. Results & Data Results & Data ([facility]) Vital Signs (Past 12 Hours) Vital Signs Temp Pulse Resp BP Pulse Ox 02/05/21 07:38 36.5 C 72 16 132/66 96 02/04/21 23:43 36.8 C 73 17 118/60 98 Laboratory Results Short CBC 02/04/21 02/05/21 Range/Units 14:39 05:59 WBC 14.00 H (4.8-10.8) K/uL Hgb 8.5 L 8.2 L (12.0-16.0) g/dL Hct 26.3 L 25.9 L (37-47) % Plt Count 450 H (130-400) K/uL BMP 02/05/21 05:59 Sodium 133 L Potassium 4.3 D Chloride 99 Carbon Dioxide 29 BUN 27 H Creatinine 1.18 Glucose 133 H Calcium 9.6 Medications Administered Current Inpatient Medications Acetaminophen (Acetaminophen 325 Mg Tab) 650 mg PO Q4H PRN PRN Reason: Pain or Fever Stop: 03/01/21 22:23 Last Admin: 02/05/21 08:41 Dose: 650 mg Documented by: Apixaban (Apixaban 2.5 Mg Tab) 5 mg PO BID [facility] Stop: 03/04/21 09:44 Last Admin: 02/04/21 09:06 Dose: 5 mg Documented by: Clopidogrel Bisulfate (Clopidogrel Bisulfate 75 Mg Tab) 75 mg PO QAM PER Stop: 03/04/21 09:44 Last Admin: 02/04/21 09:06 Dose: 75 mg Documented by: Ferrous Sulfate (Ferrous Sulfate 325 Mg Tab) 325 mg PO DAILY PER Stop: 03/02/21 08:59 Last Admin: 02/05/21 08:42 Dose: 325 mg Documented by: Furosemide (Furosemide 80 Mg Tab) 80 mg PO MoWeFr PER Stop: 03/03/21 08:59 Last Admin: 02/03/21 09:59 Dose: 80 mg Documented by: Heparin Sodium (Beef Lung) (Heparin 10 Unit/Ml 5 Ml Flush) 5 ml FLUSH PRN PRN PRN Reason: Flush Stop: 03/05/21 22:59 Last Admin: 02/05/21 06:14 Dose: 5 ml Documented by: Daptomycin 750 mg/ Syringe 15 mls @ 7.5 mls/min IV Q24H [facility]; Protocol Stop: 03/17/21 16:59 Last Admin: 02/04/21 17:43 Dose: 7.5 mls/min Documented by: Meropenem 500 mg/ Syringe 10 mls @ 2 mls/min IV Q6H [facility]; Protocol Stop: 02/16/21 11:59 Last Admin: 02/05/21 06:13 Dose: 2 mls/min Documented by: Insulin Aspart (Insulin Aspart 100 Units/Ml 3 Ml Pen) 0 units SC ACHS [facility] Stop: 03/04/21 22:44 Last Admin: 02/05/21 08:46 Dose: 12 units Documented by: Insulin Glargine (Insulin Glargine Solostar 100 Units/Ml 3 Ml Pen) 25 units SC BID [facility] Stop: 03/01/21 22:59 Last Admin: 02/05/21 08:46 Dose: 25 units Documented by: Magnesium Oxide (Magnesium Oxide 400 Mg Tab) 800 mg PO QAM [facility] Stop: 03/02/21 08:59 Last Admin: 02/05/21 08:43 Dose: 800 mg Documented by: Metoprolol Tartrate (Metoprolol Tartrate 25 Mg Tab) 25 mg PO BID [facility] Stop: 03/01/21 22:23 Last Admin: 02/05/21 08:42 Dose: 25 mg Documented by: Miscellaneous Information (Meropenem Consult Acitve) 1 ea N/A UD PRN PRN Reason: Consult Stop: 03/04/21 19:52 Miscellaneous Information (Daptomycin Consult Active) 1 ea N/A UD PRN PRN Reason: Consult Stop: 03/05/21 09:05 Nitroglycerin (Nitroglycerin Sl 0.4 Mg/Tab Tab) 0.4 mg SL UD PRN PRN Reason: Chest Pain Stop: 03/01/21 22:23 Ondansetron HCl (Ondansetron Inj 2 Mg/Ml 2 Ml Vial) 4 mg IV Q6H PRN PRN Reason: Nausea Stop: 03/01/21 22:23 Polyethylene Glycol (Polyethylene (Miralax) 17 Gm Pack) 17 gm PO DAILY PRN PRN Reason: Constipation Stop: 03/01/21 22:23 Rosuvastatin Calcium (Rosuvastatin Calcium 20 Mg Tab) 40 mg PO HS [facility] Stop: 03/01/21 22:23 Last Admin: 01/31/21 19:50 Dose: 40 mg Documented by: Saccharomyces Boulardii (Saccharomyces Boulardii 250 Mg Cap) 250 mg PO DAILY PER Stop: 03/06/21 17:44 Last Admin: 02/05/21 08:41 Dose: 250 mg Documented by: Tramadol HCl (Tramadol Hcl 50 Mg Tablet) 50 mg PO Q8H PRN PRN Reason: Pain Stop: 03/01/21 22:23 Last Admin: 02/05/21 09:30 Dose: 50 mg Documented by: Vitamin D (Cholecalciferol 1,000 Units 25 Mcg Tab) 5,000 units PO QAM [facility] Stop: 03/02/21 08:59 Last Admin: 02/05/21 08:43 Dose: 5,000 units Documented by: (1) Diabetes mellitus type 2, uncontrolled Glycemic state: with hyperglycemia Qualified Code(s): E11.65 - Type 2 diabetes mellitus with hyperglycemia (2) Hypertension Hypertension type: essential hypertension Qualified Code(s): I10 - Essential (primary) hypertension
[2021-02-05] MEDS: DAPTOmycin 750 MG in SYRINGE 0 ML IV SCH (17:33)
[2021-02-06] MEDS: MEROPENEM 500 MG in SYRINGE 0 ML IV SCH ×4 (00:10→17:49)
[2021-02-06 07:02] LABS: Creatinine Clr Calc Pharmacy 52.5 ml/min; Est GFR (African American) 54.8 ml/min; Est GFR (Non-African American) 47.3 ml/min
[2021-02-06] MEDS: FERROUS SULFATE 325 MG TAB PO SCH (08:14)
[2021-02-06] MEDS: METOPROLOL TARTRATE 25 MG TAB PO SCH ×2 (08:14→20:49)
[2021-02-06] MEDS: CHOLECALCIFEROL 1,000 UNITS 25 MCG TAB PO SCH (08:14)
[2021-02-06] MEDS: FUROSEMIDE 80 MG TAB PO SCH (08:15)
[2021-02-06] MEDS: MAGNESIUM OXIDE 400 MG TAB PO SCH (08:15)
[2021-02-06] MEDS: INSULIN ASPART 100 UNITS/ML 3 ML PEN SC SCH ×4 (08:20→20:47)
[2021-02-06] MEDS: INSULIN GLARGINE SOLOSTAR 100 UNITS/ML 3 ML PEN SC SCH ×2 (08:20→20:48)
[2021-02-06] MEDS: traMADol HCL 50 MG TABLET PO PRN ×2 (08:24→20:56)
[2021-02-06] MEDS: SACCHAROMYCES BOULARDII 250 MG CAP PO SCH (09:39)
[2021-02-06] MEDS: ADVANCED PROBIOTIC 1250 MG CAPSULE PO SCH (12:25)
--- NOTE | 2021-02-06 12:58 | Discharge Summary ---
Date of Service Feb 09, 2021 Principal Diagnosis post menopausal bleeding-resolved diabetic foot infection with ulceration and right foot osteomyelitis peripheral arterial disease acute blood loss anemia diabetic ulcer of left great toe charcot foot on left DMII-insulin dependent Discharge Data Allergies Allergy/AdvReac Type Severity Reaction Status Date / Time amoxicillin Allergy Intermediate HIVES & N/V Verified 01/30/21 17:49 clavulanic acid Allergy Intermediate HIVES & N/V Verified 01/30/21 17:49 vancomycin Allergy Mild pruritus Verified 01/30/21 17:49 sulfamethoxazole AdvReac Severe renal Verified 01/30/21 17:49 [From Bactrim] failure trimethoprim [From Bactrim] AdvReac Severe renal Verified 01/30/21 17:49 failure lisinopril AdvReac Intermediate NAUSEA/VOMI Verified 01/30/21 17:49 TING Consultations 01/30/21 17:41 ED Decision to Admit Stat 01/31/21 08:00 Consult Obstetrics Routine 01/31/21 20:28 Consult Infectious Diseases Routine 02/01/21 11:55 Consult Orthopedic Surgery Routine 02/02/21 14:44 Consult Infectious Diseases Routine Ordered Studies 01/30/21 17:08 US transvaginal Stat 01/30/21 17:09 US pelvic complete Stat 01/31/21 11:47 MR foot RT w/o con Routine 02/02/21 09:35 US venous doppler LE RT Routine Hospital Course (1) Postmenopausal bleeding: Vaginal bleeding has now stopped. Trannsvaginal US shows thickened endometrium. WORKFORCE MANAGEMENT MANAGER consulted; recommended OP evaluation for endometrial biopsy. (2) Diabetic foot infection: Right midfoot diabetic foot ulcer: Has this chronically. Follows with her vascular surgeon, Dr. Lomeli. Blood cultures negative thus far. Leukocytosis present as well as a secondary cellulitis that is new since admission per patient. Cellulitis is imporved today on current IV abx (Dapto/Merrem) Pain in her foot is present and managed with Tramadol. Pulses are present with doppler. Elevated inflammatory markers expected-will trend as outpatient with treatment. MRI of the foot suggest extensive osteomyelitis superimposed upon a neuropathic arthropathy. Rapid progression of neuropathic arthropathy is considered less likely. Extensive infectious process is the diagnosis of exclusion. Per ortho and ID antibiotics are unlikely to get better with antibiotics. Orthopedics recommended to follow-up with her vascular surgeon at [place] plan for surgical intervention such as possible amputation. Continue with daptomycin/Merrem trial for now for 6 weeks PICC placed 02/03 Will plan for dc home with IV abx and followup on 02/15 with vascular as planned. (3) Osteomyelitis of right foot: cont broad spectrum abx per plan above. (4) Peripheral arterial disease: Restarted Plavix and Eliquis 02/02, and some extra bleeding present, ASA held--Hgb dropped this am, blood thinners held, especially in light of new "joint weakness." Follow up with vascular surgery, Dr. Lomeli; appt 02/15. (5) Acute blood loss anemia: Her hemoglobin is 6.3 on admission. Received 3 units of PRBCs. . Patient has triple anticoagulation with Eliquis, aspirin and Plavix. Blood thinners held on admission, and then restarted 02/02. Drop in H/H as above. Held blood thinners again now. Will continue to keep her off these for now with ongoing anemia and easy tendency to bleed from her wound. Outpatient vascular surgeon to restart as able in next week. (6) Diabetes mellitus type 2, uncontrolled: around goal, cont current insulin regimen. (7) Diabetic ulcer of left great toe: cont plan as above. Cont local wound care (8) Charcot's joint of foot due to diabetes: chronic, ambulates with a cam boot at baseline. Reports that her foot is "starting to turn" so family is bringing her boot tomorrow. (9) Chronic kidney disease (CKD), stage III (moderate): creatinine around baseline. Monitor PRN (10) Hypertension: On metoprolol and diuretics, at goal. (11) DVT prophylaxis: SCDs/chemoprophylaxis held in setting of bleeding and acute blood loss anemia. Full Code Dispo-cont to monitor for now and likely to home with home health? and close follow-up by Vascular Surgery-appointment on 02/15. If wound and cellulitis continues to worsen, will need to transfer to [facility] for consideration of more definitive surgical treatment. DO Lachelle Miller Hospitalist Discharge Plan Discharge Items Patient Disposition: Home - Home Health Services Reason For Visit: VAGINAL BLEEDING Discharge Diagnosis: post menopausal bleeding-resolved diabetic foot infection with ulceration and right foot osteomyelitis peripheral arterial disease acute blood loss anemia diabetic ulcer of left great toe charcot foot on left DMII-insulin dependent Condition on Discharge: Good Activity: Resume your previous activity Non-emergency contact: Primary Care Provider Call non-emergency contact if: you have any medication questions, your symptoms worsen, your pain is not controlled, your pain is worsening, your pain is unusual for you, your pain is concerning for you and you have a fever Follow-up/Referrals: [facility] Infectious Disease [Other] - 03/21/21 11:00 am (Date & Time 03/21/2021 11:00 AM Provider Migel Carey MD Department Infectious Disease [facility] ) Kaila Freitas MD [Primary Care Provider] - (Date & Time 02/14/2021 12:00 PM Provider Kaila Freitas MD Department Family Medicine [facility] ) Nate Amato MD [Surgeon] - (Date & Time 02/10/2021 10:00 AM Provider [facility] Aleksandra Lomeli MD [Outside Practitioners] - (Date & Time 02/15/2021 8:30 AM Provider Aleksandra Lomeli MD Department Vascular Surgery, [facility] ) Diet: Carb Consistent or DM2 Addtl Attending Provider Instructions: Please take all medications as instructed on discharge list below. While on Daptomycin, you should hold off on taking Crestor. After stopping this medication, Crestor may be resumed. You are being given 6 weeks of intravenous antibiotics. Please continue taking these through the PICC line as directed by the infusion company and home health nursing. There are doses that you will need to administer on your own at home as one antibiotic is timed for every 6 hours. While on the antibiotics, you will need a weekly CBC, CMP, and CPK drawn (non- fasting bloodwork) with results sent to Dr. Geronimo Martinez at [facility] Infectious Disease at [facility] and Dr. Kaila Freitas (primary care). Pleas follow-up with your vascular surgeon as currently scheduled and discuss definitive management of your foot wound. At this visit, it will also be important to discuss restarting the blood thinners as appropriate. These were held because of severe acute blood loss anemia during this hospitalization resulting in 3 units of blood required for transfusion. A follow-up with your primary care physician is recommended in one week to ensure weekly labs are being drawn, the antibiotic treatment is going well for you without side effects, and to ensure you are feeling well since leaving the hospital. Please ensure close follow-up with [facility] Gynecology for scheduling of an endometrial biopsy as discussed. Pending Studies at Discharge: No Stand-Alone Forms: My [facility] Medications and DC Order Prescriptions: New daptomycin 500 mg recon soln 750 mg IV DAILY Qty: 14 RF: 0 meropenem 1 gram recon soln 1 g IV Q6H Qty: 10 RF: 0 Continued Novolin R Regular U-100 Insuln 100 unit/mL Solution 70 unit subcut AMPM RF: 0 polyethylene glycol 3350 [Miralax] 17 gram Powder In Packet 17 g PO DAILY PRN (Reason: Constipation) RF: 0 metoprolol tartrate 25 mg tablet 25 mg PO BID RF: 0 cholecalciferol (vitamin D3) [Vitamin D3] 5,000 unit Tablet 5,000 units PO QAM RF: 0 magnesium oxide 500 mg Tablet 500 mg PO QAM RF: 0 Novolin N Flexpen 100 unit/mL (3 mL) Insulin Pen 0 unit subcut DIRECTED RF: 0 furosemide 40 mg tablet 80 mg PO UD RF: 0 ferrous sulfate 325 mg 325 mg PO DAILY RF: 0 tramadol 50 mg tablet 50 mg PO Q8H PRN (Reason: Pain) Qty: 30 RF: 0 acetaminophen 650 mg Tablet Extended Release 650 mg PO Q8H PRN (Reason: Pain) RF: 0 Discontinued rosuvastatin 40 mg Tablet 40 mg PO HS RF: 0 aspirin 81 mg Tablet,Delayed Release (Dr/Ec) 81 mg PO QAM RF: 0 clopidogrel 75 mg tablet 75 mg PO DAILY RF: 0 Eliquis 5 mg tablet 5 mg PO BID RF: 0 Krames/Other Patient Handouts: A1C, Managing Type 2 Diabetes, Special Foot Care for Diabetes Admission Data Admit Date/Time: 01/30/21 20:42 Attending Provider: Lorena Mcqueen Admit Provider: Sander Henriquez Primary Care Provider: Kaila Freitas Other Providers: Mikal Maza ; Migel Carey ; Russ Martinez I. ; Terrell Ramirez II ; Sussy Castelan ; Surinder Ybarra ; Gerardo Coleman ; Baldemar Kumar ; Vania Ramsey ; Shadia Allred ; Cali Hsu ; Yesica Oliveira ; Malachi Tavera ; Micah Mg ; Georgina Vera ; Lorena Sauceda V. ; Veronica Epps ; Nora Villalba ; Misty Encarnacion ; Nayana Judge ; Katia Hunter ; Gab Flores ; Kingston Gutierrez ; Tevin Rivera ; Brianna Salomon ; Nanda Galvez ; Ayde Mello ; Tasneem Dubose ; José Antonio Walton ; Delores Armendariz ; Fabián Chavarria ; Smiley Gutierrez ; Chaparro Martinez ; Benjamin Zuleta ; Sergei Dodd ; Sergei Holt ; Nasra Beavers ; Mateo Enriquez [facility] Other Interventions: Discharge Summary Assessment (RN) Last Done: 02/07/21 12:02
[2021-02-06] MEDS ORDERED: INSULIN HUMAN REGULAR PER UNIT 5 UNITS in SYRINGE 4.95 ML IV ONE (13:00)
--- NOTE | 2021-02-06 14:07 | Hospitalist Progress Note ---
Date of Service February 06, 2021 Assessment & Plan (1) Postmenopausal bleeding: Plan: Vaginal bleeding has now stopped. Trannsvaginal US shows thickened endometrium. AIRCRAFT INSTRUMENT REPAIRER consulted; recommended OP evaluation for endometrial biopsy. (2) Diabetic foot infection: Plan: Right midfoot diabetic foot ulcer: Has this chronically. Follows with her vascular surgeon, Dr. Lomeli. Blood cultures negative thus far. Leukocytosis present as well as a secondary cellulitis that is new since admission per patient. Cellulitis is imporved today on current IV abx (Dapto/Merrem) Pain in her foot is present and managed with Tramadol. Pulses are present with doppler. Elevated inflammatory markers expected-will trend as outpatient with treatment. MRI of the foot suggest extensive osteomyelitis superimposed upon a neuropathic arthropathy. Rapid progression of neuropathic arthropathy is considered less likely. Extensive infectious process is the diagnosis of exclusion. Per ortho and ID she is less likely to get better with antibiotics. Orthopedics recommended to follow-up with her vascular surgeon at [place] plan for surgical intervention such as possible amputation. Continue with daptomycin/Merrem trial for now for 6 weeks PICC placed 02/03 Will plan for dc home with IV abx and followup on 02/15 with vascular as planned. (3) Osteomyelitis of right foot: Plan: cont broad spectrum abx per plan above. (4) Peripheral arterial disease: Plan: Restarted Plavix and Eliquis 02/02, and some extra bleeding present, ASA held--Blood thinners remain on hold and H/H low but stable. Follow up with vascular surgery, Dr. Lomeli; appt 02/15. (5) Acute blood loss anemia: Plan: Her hemoglobin is 6.3 on admission. Received 3 units of PRBCs. . Patient has triple anticoagulation with Eliquis, aspirin and Plavix. Blood thinners held on admission, and then restarted 02/02. Drop in H/H as above. Held blood thinners again now. Will continue to keep her off these for now with ongoing anemia and easy tendency to bleed from her wound. Outpatient vascular surgeon to restart as able in next week. (6) Diabetes mellitus type 2, uncontrolled: Plan: around goal, cont current insulin regimen. (7) Diabetic ulcer of left great toe: Plan: cont plan as above. Cont local wound care (8) Charcot's joint of foot due to diabetes: Plan: chronic, ambulates with a cam boot at baseline. (9) Chronic kidney disease (CKD), stage III (moderate): Plan: creatinine around baseline. Monitor PRN (10) Hypertension: Plan: On metoprolol and diuretics, at goal. (11) DVT prophylaxis: Plan: SCDs/chemoprophylaxis held in setting of bleeding and acute blood loss anemia. Full Code Dispo-cont to monitor for now and likely to home with home health? and close follow-up by Vascular Surgery-appointment on 02/15. If wound and cellulitis continues to worsen, will need to transfer to [place] for consideration of more definitive surgical treatment. Lorena Mcqueen DO [facility] Admission and Anticipated Discharge Date Admission Date: January 30, 2021 Subjective 60 yo F with chronic PAD, complicated DMII, on anticoagulation presented with vaginal bleeding, also found to have worsening diabetic foot infection Feels her khadijah tis not in pain Leg is looking better Cam boot in place and ambulating with it. Pain still present but managed with Tramadol Tolerating PO Afebrile Review of Systems Review of Systems: At least ten systems were reviewed and negative except as indicated in HPI above. Physical Exam Physical Exam: CONSTITUTIONAL: obese, vitals as above, generally well- appearing EYES: normal conjunctivae, no scleral icterus ENT: external ear and nose normal, oropharynx clear, MMM NECK: trachea midline RESPIRATORY: clear to auscultation bilaterally, no crackles, rales or wheezes, normal respiratory effort CARDIOVASCULAR: regular rate and rhythm, 2/6 MARLIN heard at LSB, no gallops or rubs, no JVD, 2+ peripheral edema in distal RLE around her wound GASTROINTESTINAL: soft, nontender,nondistended. MUSCULOSKELETAL: strength 5/5 throughout, head is normocephalic and atraumatic SKIN: warm and dry, RLE: large wound on lateral side of right foot-wrapped wtih gauze and TATY, small wound on right great toe (distal tip)-appears to be closed and eschar, small pressure ulcer on her right heel. Bright red erythema in distal half of her RLE, which is improved from line drawn. SLIGHTLY ANIMAL SHELTER SUPERVISOR PINK TODAY. Associated edema persists. R leg > L leg in terms of overall size and circumference. NEUROLOGIC: CN 2-12 grossly intact, no sensory deficit, normal cognition, normal speech, no tremor PSYCHIATRIC: alert cooperative and oriented to person, place and time. Results & Data Results & Data ([facility]) Vital Signs (Past 12 Hours) Vital Signs Temp Pulse Resp BP Pulse Ox 02/06/21 07:55 36.7 C 75 16 114/66 98 (1) Diabetes mellitus type 2, uncontrolled Glycemic state: with hyperglycemia Qualified Code(s): E11.65 - Type 2 diabetes mellitus with hyperglycemia (2) Hypertension Hypertension type: essential hypertension Qualified Code(s): I10 - Essential (primary) hypertension
[2021-02-06] MEDS: DAPTOmycin 750 MG in SYRINGE 0 ML IV SCH (17:49)
[2021-02-07] MEDS: MEROPENEM 500 MG in SYRINGE 0 ML IV SCH ×4 (00:25→17:59)
[2021-02-07] MEDS: traMADol HCL 50 MG TABLET PO PRN ×2 (06:02→18:04)
[2021-02-07 08:51] LABS: Hematocrit (blood only) 25.2 % (37-47); Hemoglobin 7.8 g/dL (12.0-16.0); Mean Corpuscular Hemoglobin 25.6 pg (25-34); Mean Corpuscular Volume 82.6 fL (80-100); Platelet Count 461 K/uL (130-400); RDW Standard Deviation 54.2 fL (36.4-46.3); Red Blood Count 3.05 M/uL (4.2-5.4); White Blood Count 13.89 K/uL (4.8-10.8)
[2021-02-07] MEDS: INSULIN ASPART 100 UNITS/ML 3 ML PEN SC SCH ×4 (08:55→21:13)
[2021-02-07] MEDS: MAGNESIUM OXIDE 400 MG TAB PO SCH (08:56)
[2021-02-07] MEDS: INSULIN GLARGINE SOLOSTAR 100 UNITS/ML 3 ML PEN SC SCH ×2 (08:56→21:14)
[2021-02-07] MEDS: FERROUS SULFATE 325 MG TAB PO SCH (08:57)
[2021-02-07] MEDS: CHOLECALCIFEROL 1,000 UNITS 25 MCG TAB PO SCH (08:57)
[2021-02-07] MEDS: ADVANCED PROBIOTIC 1250 MG CAPSULE PO SCH (08:57)
[2021-02-07] MEDS: METOPROLOL TARTRATE 25 MG TAB PO SCH ×2 (08:58→20:25)
[2021-02-07 09:20] LABS: BUN Creatinine Ratio 33.3 (10-20); Calcium 9.3 mg/dl (8.5-10.1); Creatinine Clr Calc Pharmacy 55.2 ml/min; Est GFR (African American) 58.2 ml/min; Est GFR (Non-African American) 50.3 ml/min; Potassium 4.5 mmol/L (3.5-5.1)
[2021-02-07] MEDS ORDERED: CONSULT PHARMACY STA (14:04)
[2021-02-07] MEDS: LACTATED RINGER'S 1,000 ML IV SCH ×2 (14:19→22:26)
[2021-02-07] MEDS ORDERED: VANCOMYCIN CONSULT ACTIVE PRN (14:41)
--- NOTE | 2021-02-07 15:40 | Pharmacy Report ---
Pharmacy Abx Dose Short Note - Date of Service February 07, 2021 - Assessment & Plan Assessment 60 year old F receiving IV antibiotic therapy for RLE diabetic foot ulcer, osteomyelitis. * Gracielaer ID recommended dapto + meropenem x 6 weeks and follow up with vascular surgeon for possible surgical intervention * Patient developed severe CPK elevation on dapto (CPK = 7772). Dapto on hold. Started on vancomycin IV. Plan Vancomycin * Loading dose: 2000 mg (20 mg/kg) * Maintenance dose: 750 mg (7.4 mg/kg) IV q12h * Elected to trial q12h dosing due to need for prolonged therapy (q12 or q24 hour regimen preferred). * Dose empirically decreased for BMI > 40 and increased likelihood of drug accumulation * Will order a trough level for 02/08 @ 1530 * Goal trough/AUC: 15 - 20 mcg/mL/AUC 400-600 Meropenem * Continue 500 mg IV q6h Pharmacy will continue to follow and will adjust dose/frequency as necessary. Thank you.
[2021-02-07] MEDS ORDERED: VANCOMYCIN HCL 2,000 MG in SODIUM CHLORIDE 0.9% 500 ML IV ONE (16:00)
--- NOTE | 2021-02-07 18:39 | Hospitalist Progress Note ---
Date of Service February 07, 2021 Assessment & Plan (1) Non-traumatic rhabdomyolysis: Plan: Likely related to dapto although no baseline CK was available and she was on Crestor prior to starting this. Retrospectively, her "joint weakness" in her upper extremities was likely a symptom of this and is now resolved. check urine Mb, infuse with IVF overnight to treat myositis, trend CK in am. DC dapto and infuse vancomycin slowly as she has a h/o Red Man syndrome. Updated ID who agrees with the plan. (2) Postmenopausal bleeding: Plan: Vaginal bleeding has now stopped. Trannsvaginal US shows thickened endometrium. TRACER BULLET CHARGING MACHINE OPERATOR consulted; recommended OP evaluation for endometrial biopsy. (3) Diabetic foot infection: Plan: Right midfoot diabetic foot ulcer: Has this chronically. Follows with her vascular surgeon, Dr. Lomeli. Blood cultures negative thus far. Leukocytosis present as well as a secondary cellulitis that is new since admission per patient. Cellulitis is imporved today on current IV abx (Dapto/Merrem) Pain in her foot is present and managed with Tramadol. Pulses are present with doppler. Elevated inflammatory markers expected-will trend as outpatient with treatment. MRI of the foot suggest extensive osteomyelitis superimposed upon a neuropathic arthropathy. Rapid progression of neuropathic arthropathy is considered less likely. Extensive infectious process is the diagnosis of exclusion. Per ortho and ID she is less likely to get better with antibiotics. Orthopedics recommended to follow-up with her vascular surgeon at [place] plan for surgical intervention such as possible amputation. Continue with daptomycin/Merrem trial for now for 6 weeks PICC placed 02/03 Will plan for dc home with IV abx and followup on 02/15 with vascular as planned. (4) Osteomyelitis of right foot: Plan: cont broad spectrum abx per plan above. (5) Peripheral arterial disease: Plan: Restarted Plavix and Eliquis 02/02, and some extra bleeding present, ASA held--Blood thinners remain on hold and H/H low but stable. Follow up with vascular surgery, Dr. Lomeli; appt 02/15. (6) Acute blood loss anemia: Plan: Anemia persists but not requiring transfusion today. Her hemoglobin is 6.3 on admission. Received 3 units of PRBCs. . Patient has triple anticoagulation with Eliquis, aspirin and Plavix. Blood thinners held on admission, and then restarted 02/02. Drop in H/H as above. Held blood thinners again now. Will continue to keep her off these for now with ongoing anemia and easy tendency to bleed from her wound. Outpatient vascular surgeon to restart as able in next week. (7) Diabetes mellitus type 2, uncontrolled: Plan: around goal, cont current insulin regimen. (8) Diabetic ulcer of left great toe: Plan: cont plan as above. Cont local wound care (9) Charcot's joint of foot due to diabetes: Plan: chronic, ambulates with a cam boot at baseline. (10) Chronic kidney disease (CKD), stage III (moderate): Plan: creatinine around baseline. Monitor PRN (11) Hypertension: Plan: On metoprolol and diuretics, at goal. (12) DVT prophylaxis: Plan: SCDs/chemoprophylaxis held in setting of bleeding and acute blood loss anemia. Full Code Dispo-cont to monitor for now and likely to home with home health? and close follow-up by Vascular Surgery-appointment on 02/15. If wound and cellulitis continues to worsen, will need to transfer to [facility] for consideration of more definitive surgical treatment. Lorena Mcqueen DO [facility] and Anticipated Discharge Date Admission Date: January 30, 2021 Subjective 60 yo F with chronic PAD, complicated DMII, on anticoagulation presented with vaginal bleeding, also found to have worsening diabetic foot infection Feels her foot is not in pain Erythema around wound appears the same as yesterday-CAM boot in place. Pain still present but managed with Tramadol Tolerating PO Afebrile CK returned >7000, and retrospectively joint weakness was likely a symptom of rhabdomyolysis from dapto use. Outpatient review of records reveals no prior CK even on crestor, which has been held since Dapto was started. Her discharge was delayed for this, will start IVF and trend CK in am. However, she also has a h/o vancomycin-infusion reaction. Will need to monitor her closely while giving this infusion and setting up new home antibiotics to be delivered. Review of Systems Review of Systems: At least ten systems were reviewed and negative except as indicated in HPI above. Physical Exam Physical Exam: CONSTITUTIONAL: obese, vitals as above, generally well- appearing EYES: normal conjunctivae, no scleral icterus ENT: external ear and nose normal, oropharynx clear, MMM NECK: trachea midline RESPIRATORY: clear to auscultation bilaterally, no crackles, rales or wheezes, normal respiratory effort CARDIOVASCULAR: regular rate and rhythm, 2/6 MARLIN heard at LSB, no gallops or rubs, no JVD, 2+ peripheral edema in distal RLE around her wound GASTROINTESTINAL: soft, nontender,nondistended. MUSCULOSKELETAL: strength 5/5 throughout, head is normocephalic and atraumatic SKIN: warm and dry, RLE: large wound on lateral side of right foot-wrapped wtih gauze and TATY, small wound on right great toe (distal tip)-appears to be closed and eschar, small pressure ulcer on her right heel. Bright red erythema in distal half of her RLE, which is improved from line drawn. ABOUT THE SAME YESTERDAY. Associated edema persists. R leg > L leg in terms of overall size and circumference. NEUROLOGIC: CN 2-12 grossly intact, no sensory deficit, normal cognition, normal speech, no tremor PSYCHIATRIC: alert cooperative and oriented to person, place and time. Results & Data Results & Data ([facility]) Vital Signs (Past 12 Hours) Vital Signs Temp Pulse Pulse Resp BP BP Pulse Ox 02/07/21 15:42 36.5 C 70 20 141/76 H 97 02/07/21 12:02 36.7 C 75 80 20 149/69 H 122/73 95 02/07/21 07:00 36.7 C 80 20 149/69 H 95 Laboratory Results Short CBC 02/07/21 Range/Units 08:30 WBC 13.89 H (4.8-10.8) K/uL Hgb 7.8 L (12.0-16.0) g/dL Hct 25.2 L (37-47) % Plt Count 461 H (130-400) K/uL BMP 02/07/21 08:30 Sodium 134 L Potassium 4.5 Chloride 100 Carbon Dioxide 29 BUN 39 H Creatinine 1.17 Glucose 162 H Calcium 9.3 Cardiac Enzymes 02/07/21 Range/Units 08:30 Total Creatine Kinase 7772 H (26-192) U/L Medications Administered Current Inpatient Medications Acetaminophen (Acetaminophen 325 Mg Tab) 650 mg PO Q4H PRN PRN Reason: Pain or Fever Stop: 03/01/21 22:23 Last Admin: 02/05/21 17:31 Dose: 650 mg Documented by: Ferrous Sulfate (Ferrous Sulfate 325 Mg Tab) 325 mg PO DAILY PER Stop: 03/02/21 08:59 Last Admin: 02/07/21 08:57 Dose: 325 mg Documented by: Furosemide (Furosemide 80 Mg Tab) 80 mg PO MoWeFr PER Stop: 03/03/21 08:59 Last Admin: 02/06/21 08:15 Dose: 80 mg Documented by: Heparin Sodium (Beef Lung) (Heparin 10 Unit/Ml 5 Ml Flush) 5 ml FLUSH PRN PRN PRN Reason: Flush Stop: 03/05/21 22:59 Last Admin: 02/07/21 05:57 Dose: 5 ml Documented by: Meropenem 500 mg/ Syringe 10 mls @ 2 mls/min IV Q6H ON LICENSE OF [facility]; Protocol Stop: 02/16/21 11:59 Last Admin: 02/07/21 17:59 Dose: 2 mls/min Documented by: Lactated Ringer's (Lr) 1,000 mls @ 200 mls/hr IV .Q5H PER Stop: 03/09/21 14:14 Last Infusion: 02/07/21 15:59 Dose: 0 mls/hr Documented by: Vancomycin HCl 2,000 mg/ (Sodium Chloride) 540 mls @ 100 mls/hr IV 1600 ONE Stop: 02/07/21 21:23 Last Admin: 02/07/21 15:59 Dose: 100 mls/hr Documented by: Vancomycin HCl 750 mg/ Sodium (Chloride) 265 mls @ 100 mls/hr IV Q12H ON LICENSE OF [facility]; Protocol Stop: 03/22/21 03:59 Insulin Aspart (Insulin Aspart 100 Units/Ml 3 Ml Pen) 0 units SC ACHS PER Stop: 03/04/21 22:44 Last Admin: 02/07/21 17:59 Dose: 13 units Documented by: Insulin Glargine (Insulin Glargine Solostar 100 Units/Ml 3 Ml Pen) 25 units SC BID PER Stop: 03/01/21 22:59 Last Admin: 02/07/21 08:56 Dose: 25 units Documented by: Lactobacillus Acidoph/Casei/Rhamnos (Advanced Probiotic 1250 Mg Capsule) 2 cap PO QAM PER Stop: 03/08/21 10:59 Last Admin: 02/07/21 08:57 Dose: 2 cap Documented by: Magnesium Oxide (Magnesium Oxide 400 Mg Tab) 800 mg PO QAM ON LICENSE OF [facility] Stop: 03/02/21 08:59 Last Admin: 02/07/21 08:56 Dose: 800 mg Documented by: Metoprolol Tartrate (Metoprolol Tartrate 25 Mg Tab) 25 mg PO BID ON LICENSE OF [facility] Stop: 03/01/21 22:23 Last Admin: 02/07/21 08:58 Dose: 25 mg Documented by: Miscellaneous Information (Meropenem Consult Acitve) 1 ea N/A UD PRN PRN Reason: Consult Stop: 03/04/21 19:52 Miscellaneous Information (Vancomycin Consult Active) 1 ea N/A UD PRN PRN Reason: Consult Stop: 03/09/21 14:40 Nitroglycerin (Nitroglycerin Sl 0.4 Mg/Tab Tab) 0.4 mg SL UD PRN PRN Reason: Chest Pain Stop: 03/01/21 22:23 Ondansetron HCl (Ondansetron Inj 2 Mg/Ml 2 Ml Vial) 4 mg IV Q6H PRN PRN Reason: Nausea Stop: 03/01/21 22:23 Polyethylene Glycol (Polyethylene (Miralax) 17 Gm Pack) 17 gm PO DAILY PRN PRN Reason: Constipation Stop: 03/01/21 22:23 Rosuvastatin Calcium (Rosuvastatin Calcium 20 Mg Tab) 40 mg PO HS ON LICENSE OF [facility] Stop: 03/01/21 22:23 Last Admin: 01/31/21 19:50 Dose: 40 mg Documented by: Tramadol HCl (Tramadol Hcl 50 Mg Tablet) 50 mg PO Q8H PRN PRN Reason: Pain Stop: 03/01/21 22:23 Last Admin: 02/07/21 18:04 Dose: 50 mg Documented by: Vitamin D (Cholecalciferol 1,000 Units 25 Mcg Tab) 5,000 units PO QAM ON LICENSE OF [facility] Stop: 03/02/21 08:59 Last Admin: 02/07/21 08:57 Dose: 5,000 units Documented by: (1) Diabetes mellitus type 2, uncontrolled Glycemic state: with hyperglycemia Qualified Code(s): E11.65 - Type 2 diabetes mellitus with hyperglycemia (2) Hypertension Hypertension type: essential hypertension Qualified Code(s): I10 - Essential (primary) hypertension
[2021-02-08] MEDS: LACTATED RINGER'S 1,000 ML IV SCH ×5 (00:02→20:11)
[2021-02-08] MEDS: MEROPENEM 500 MG in SYRINGE 0 ML IV SCH ×5 (00:02→23:48)
[2021-02-08] MEDS: VANCOMYCIN HCL 750 MG in SODIUM CHLORIDE 0.9% 250 ML IV SCH ×2 (03:37→16:47)
[2021-02-08 06:18] LABS: Hematocrit (blood only) 22.3 % (37-47); Hemoglobin 7.2 g/dL (12.0-16.0); Mean Corpuscular Hemoglobin 26.4 pg (25-34); Mean Corpuscular Hgb Conc 32.3 g/dL (32-36); Mean Corpuscular Volume 81.7 fL (80-100); Mean Platelet Volume 8.8 fL (7.4-10.4); Platelet Count 396 K/uL (130-400); RDW Coefficient of Variation 18.3 % (11.5-14.5); RDW Standard Deviation 54.6 fL (36.4-46.3); Red Blood Count 2.73 M/uL (4.2-5.4); White Blood Count 12.58 K/uL (4.8-10.8)
[2021-02-08 06:53] LABS: Albumin Level 1.6 gm/dl (3.4-5.0); Calcium 9.1 mg/dl (8.5-10.1); Creatinine Clr Calc Pharmacy 59.8 ml/min; Est GFR (African American) 64.2 ml/min; Est GFR (Non-African American) 55.4 ml/min; Potassium 4.5 mmol/L (3.5-5.1)
[2021-02-08 07:07] LABS: Albumin Globulin Ratio 0.3 (0.9-2); Bilirubin,Total 0.5 mg/dl (0.2-1); Globulin 5.4 gm/dl (2.5-4.0)
[2021-02-08] MEDS: MAGNESIUM OXIDE 400 MG TAB PO SCH (08:26)
[2021-02-08] MEDS: FUROSEMIDE 80 MG TAB PO SCH (08:26)
[2021-02-08] MEDS: CHOLECALCIFEROL 1,000 UNITS 25 MCG TAB PO SCH (08:27)
[2021-02-08] MEDS: ADVANCED PROBIOTIC 1250 MG CAPSULE PO SCH (08:27)
[2021-02-08] MEDS: FERROUS SULFATE 325 MG TAB PO SCH (08:27)
[2021-02-08] MEDS: traMADol HCL 50 MG TABLET PO PRN ×2 (09:04→16:53)
[2021-02-08] MEDS: METOPROLOL TARTRATE 25 MG TAB PO SCH ×2 (09:05→20:26)
[2021-02-08] MEDS: INSULIN ASPART 100 UNITS/ML 3 ML PEN SC SCH ×4 (09:05→21:30)
[2021-02-08] MEDS: INSULIN GLARGINE SOLOSTAR 100 UNITS/ML 3 ML PEN SC SCH ×2 (09:08→21:31)
--- NOTE | 2021-02-08 15:04 | Hospitalist Progress Note ---
Date of Service February 08, 2021 Assessment & Plan (1) Non-traumatic rhabdomyolysis: Plan: Improved CK on the IVF with 6000 this am from 7000 yesterday. Avoid daptomycin moving forward. Cont holding statin. Cont IVF. (2) Diabetic foot infection: Plan: Right midfoot diabetic foot ulcer: Chronic, Follows with her vascular surgeon, Dr. Lomeli. Blood cultures negative. Secondary cellulitis has improved on IV abx Pain in her foot is present and managed with Tramadol. Pulses are present with doppler. Elevated inflammatory markers expected-will trend as outpatient with treatment. MRI of the foot suggest extensive osteomyelitis superimposed upon a neuropathic arthropathy. Rapid progression of neuropathic arthropathy is considered less likely. Extensive infectious process is the diagnosis of exclusion. Per ortho and ID antibiotics are unlikely to get better with antibiotics. Orthopedics recommended to follow-up with her vascular surgeon at [place] plan for surgical intervention such as possible amputation. Change abx to Vanc/Merrem with dapto-induced rhabdo above-WITH H/O INFUSION REACTION, PLEASE RUN VANCOMYCIN AT 100MLS/HR PICC placed 02/03 Will plan for dc home with IV abx and followup on 02/15 with vascular as planned. (3) Postmenopausal bleeding: Plan: Vaginal bleeding has now stopped. Trannsvaginal US shows thickened endometrium. LUMBER CHAIN OFFBEARER consulted; recommended OP evaluation for endometrial biopsy. (4) Osteomyelitis of right foot: Plan: cont broad spectrum abx per plan above. (5) Peripheral arterial disease: Plan: Restarted Plavix and Eliquis 02/02, and some extra bleeding present, ASA held--Hgb dropped, blood thinners held Follow up with vascular surgery, Dr. Lomeli; appt 02/15. (6) Acute blood loss anemia: Plan: Her hemoglobin is 6.3 on admission. Received 3 units of PRBCs. . Patient has triple anticoagulation with Eliquis, aspirin and Plavix. Blood thinners held on admission, and then restarted 02/02. Drop in H/H as above. Held blood thinners again now. Will continue to keep her off these for now with ongoing anemia and easy tendency to bleed from her wound. Hb 7.2 this am. Will likely decrease with ongoing IVF 2/2 dilution. Outpatient vascular surgeon to restart as able in next week. (7) Diabetes mellitus type 2, uncontrolled: Plan: around goal, cont current insulin regimen. (8) Diabetic ulcer of left great toe: Plan: cont plan as above. Cont local wound care (9) Charcot's joint of foot due to diabetes: Plan: chronic, ambulates with a cam boot at baseline. (10) Chronic kidney disease (CKD), stage III (moderate): Plan: creatinine around baseline. Monitor PRN (11) Hypertension: Plan: On metoprolol and diuretics, at goal. (12) DVT prophylaxis: Plan: SCDs/chemoprophylaxis held in setting of bleeding and acute blood loss anemia. Full Code Dispo-cont to monitor for now and likely to home with home health? and close follow-up by Vascular Surgery-appointment on 02/15 DO Graciela Miller Hospitalist Admission and Anticipated Discharge Date Admission Date: January 30, 2021 Subjective 60 yo F with chronic PAD, complicated DMII, on anticoagulation presented with vaginal bleeding, also found to have worsening diabetic foot infection Feels her foot is not in pain adn wound improved Asymptomatic Review of Systems Review of Systems: At least ten systems were reviewed and negative except as indicated in HPI above. Physical Exam Physical Exam: CONSTITUTIONAL: obese, vitals as above, generally well- appearing EYES: normal conjunctivae, no scleral icterus ENT: external ear and nose normal, oropharynx clear, MMM NECK: trachea midline RESPIRATORY: clear to auscultation bilaterally, no crackles, rales or wheezes, normal respiratory effort CARDIOVASCULAR: regular rate and rhythm, 2/6 MARLIN heard at LSB, no gallops or rubs, no JVD, trace edema in distal RLE GASTROINTESTINAL: soft, nontender,nondistended. MUSCULOSKELETAL: strength 5/5 throughout, head is normocephalic and atraumatic SKIN: warm and dry, RLE: large wound on lateral side of right foot-wrapped wtih gauze and TATY, small wound on right great toe (distal tip)-appears to be closed and eschar, small pressure ulcer on her right heel. Bright red erythema in distal half of her RLE, which is improved from line drawn. ABOUT THE SAME YESTERDAY. Associated edema persists. R leg > L leg in terms of overall size and circumference. NEUROLOGIC: CN 2-12 grossly intact, no sensory deficit, normal cognition, normal speech, no tremor PSYCHIATRIC: alert cooperative and oriented to person, place and time. Results & Data Results & Data ([facility]) Vital Signs (Past 12 Hours) Vital Signs Temp Pulse Resp BP Pulse Ox 02/08/21 08:25 76 121/70 02/08/21 06:59 36.7 C 71 16 99/61 L 98 Laboratory Results Short CBC 02/08/21 Range/Units 05:42 WBC 12.58 H (4.8-10.8) K/uL Hgb 7.2 L (12.0-16.0) g/dL Hct 22.3 L (37-47) % Plt Count 396 (130-400) K/uL BMP 02/08/21 05:42 Sodium 133 L Potassium 4.5 Chloride 101 Carbon Dioxide 28 BUN 40 H Creatinine 1.08 Glucose 128 H Calcium 9.1 Cardiac Enzymes 02/08/21 Range/Units 05:42 Total Creatine Kinase 6066 H (26-192) U/L Liver Function 02/08/21 Range/Units 05:42 Total Bilirubin 0.5 (0.2-1) mg/dl AST 385 H (15-37) U/L ALT 145 H (12-78) U/L Alkaline Phosphatase 137 H (45-117) U/L Albumin 1.6 L (3.4-5.0) gm/dl Medications Administered Current Inpatient Medications Acetaminophen (Acetaminophen 325 Mg Tab) 650 mg PO Q4H PRN PRN Reason: Pain or Fever Stop: 03/01/21 22:23 Last Admin: 02/05/21 17:31 Dose: 650 mg Documented by: Ferrous Sulfate (Ferrous Sulfate 325 Mg Tab) 325 mg PO DAILY PER Stop: 03/02/21 08:59 Last Admin: 02/08/21 08:27 Dose: 325 mg Documented by: Furosemide (Furosemide 80 Mg Tab) 80 mg PO MoWeFr PER Stop: 03/03/21 08:59 Last Admin: 02/08/21 08:26 Dose: 80 mg Documented by: Heparin Sodium (Beef Lung) (Heparin 10 Unit/Ml 5 Ml Flush) 5 ml FLUSH PRN PRN PRN Reason: Flush Stop: 03/05/21 22:59 Last Admin: 02/07/21 05:57 Dose: 5 ml Documented by: Meropenem 500 mg/ Syringe 10 mls @ 2 mls/min IV Q6H PER; Protocol Stop: 02/16/21 11:59 Last Admin: 02/08/21 12:30 Dose: 2 mls/min Documented by: Lactated Ringer's (Lr) 1,000 mls @ 200 mls/hr IV .Q5H [facility] Stop: 03/09/21 14:14 Last Admin: 02/08/21 11:43 Dose: 200 mls/hr Documented by: Vancomycin HCl 750 mg/ Sodium (Chloride) 265 mls @ 100 mls/hr IV Q12H [facility]; Protocol Stop: 03/22/21 03:59 Last Infusion: 02/08/21 06:46 Dose: Infused Documented by: Insulin Aspart (Insulin Aspart 100 Units/Ml 3 Ml Pen) 0 units SC ACHS [facility] Stop: 03/04/21 22:44 Last Admin: 02/08/21 13:22 Dose: 12 units Documented by: Insulin Glargine (Insulin Glargine Solostar 100 Units/Ml 3 Ml Pen) 25 units SC BID [facility] Stop: 03/01/21 22:59 Last Admin: 02/08/21 09:08 Dose: 25 units Documented by: Lactobacillus Acidoph/Casei/Rhamnos (Advanced Probiotic 1250 Mg Capsule) 2 cap PO QAM [facility] Stop: 03/08/21 10:59 Last Admin: 02/08/21 08:27 Dose: 2 cap Documented by: Magnesium Oxide (Magnesium Oxide 400 Mg Tab) 800 mg PO QAM [facility] Stop: 03/02/21 08:59 Last Admin: 02/08/21 08:26 Dose: 800 mg Documented by: Metoprolol Tartrate (Metoprolol Tartrate 25 Mg Tab) 25 mg PO BID [facility] Stop: 03/01/21 22:23 Last Admin: 02/08/21 09:05 Dose: 25 mg Documented by: Miscellaneous Information (Meropenem Consult Acitve) 1 ea N/A UD PRN PRN Reason: Consult Stop: 03/04/21 19:52 Miscellaneous Information (Vancomycin Consult Active) 1 ea N/A UD PRN PRN Reason: Consult Stop: 03/09/21 14:40 Nitroglycerin (Nitroglycerin Sl 0.4 Mg/Tab Tab) 0.4 mg SL UD PRN PRN Reason: Chest Pain Stop: 03/01/21 22:23 Ondansetron HCl (Ondansetron Inj 2 Mg/Ml 2 Ml Vial) 4 mg IV Q6H PRN PRN Reason: Nausea Stop: 03/01/21 22:23 Polyethylene Glycol (Polyethylene (Miralax) 17 Gm Pack) 17 gm PO DAILY PRN PRN Reason: Constipation Stop: 03/01/21 22:23 Rosuvastatin Calcium (Rosuvastatin Calcium 20 Mg Tab) 40 mg PO HS [facility] Stop: 03/01/21 22:23 Last Admin: 01/31/21 19:50 Dose: 40 mg Documented by: Tramadol HCl (Tramadol Hcl 50 Mg Tablet) 50 mg PO Q8H PRN PRN Reason: Pain Stop: 03/01/21 22:23 Last Admin: 02/08/21 09:04 Dose: 50 mg Documented by: Vitamin D (Cholecalciferol 1,000 Units 25 Mcg Tab) 5,000 units PO QAM [facility] Stop: 03/02/21 08:59 Last Admin: 02/08/21 08:27 Dose: 5,000 units Documented by: (1) Diabetes mellitus type 2, uncontrolled Glycemic state: with hyperglycemia Qualified Code(s): E11.65 - Type 2 diabetes mellitus with hyperglycemia (2) Hypertension Hypertension type: essential hypertension Qualified Code(s): I10 - Essential (primary) hypertension
[2021-02-08] MEDS ORDERED: VANCOMYCIN TROUGH ONE (15:30)
[2021-02-09] MEDS: LACTATED RINGER'S 1,000 ML IV SCH ×2 (00:01→06:02)
[2021-02-09] MEDS: traMADol HCL 50 MG TABLET PO PRN ×2 (01:46→16:23)
[2021-02-09] MEDS: VANCOMYCIN HCL 750 MG in SODIUM CHLORIDE 0.9% 250 ML IV SCH (04:06)
[2021-02-09] MEDS: MEROPENEM 500 MG in SYRINGE 0 ML IV SCH ×3 (06:02→18:37)
[2021-02-09 06:54] LABS: Creatinine Clr Calc Pharmacy 57.7 ml/min; Est GFR (African American) 61.4 ml/min
[2021-02-09 08:07] LABS: Albumin Level 1.5 gm/dl (3.4-5.0); BUN Creatinine Ratio 40.3 (10-20); Calcium 9.2 mg/dl (8.5-10.1); Creatinine Clr Calc Pharmacy 58.7 ml/min; Est GFR (African American) 62.8 ml/min; Est GFR (Non-African American) 54.1 ml/min; Potassium 4.2 mmol/L (3.5-5.1)
[2021-02-09] MEDS: METOPROLOL TARTRATE 25 MG TAB PO SCH ×2 (08:13→21:38)
[2021-02-09] MEDS: MAGNESIUM OXIDE 400 MG TAB PO SCH (08:13)
[2021-02-09] MEDS: ADVANCED PROBIOTIC 1250 MG CAPSULE PO SCH (08:13)
[2021-02-09] MEDS: FERROUS SULFATE 325 MG TAB PO SCH (08:13)
[2021-02-09 08:14] LABS: Hematocrit (blood only) 20.5 % (37-47); Hemoglobin 6.4 g/dL (12.0-16.0); Mean Corpuscular Hemoglobin 25.5 pg (25-34); Mean Corpuscular Hgb Conc 31.2 g/dL (32-36); Mean Corpuscular Volume 81.7 fL (80-100); Mean Platelet Volume 8.9 fL (7.4-10.4); Platelet Count 333 K/uL (130-400); RDW Standard Deviation 53.9 fL (36.4-46.3); Red Blood Count 2.51 M/uL (4.2-5.4); White Blood Count 9.96 K/uL (4.8-10.8)
[2021-02-09] MEDS: CHOLECALCIFEROL 1,000 UNITS 25 MCG TAB PO SCH (08:14)
[2021-02-09 08:22] LABS: Albumin Globulin Ratio 0.3 (0.9-2); Bilirubin,Total 0.3 mg/dl (0.2-1); Globulin 5.1 gm/dl (2.5-4.0); Total Protein 6.6 gm/dl (6.4-8.2)
[2021-02-09] MEDS ORDERED: ACETAMINOPHEN 325 MG TAB PO ONE (08:27)
[2021-02-09] MEDS ORDERED: SODIUM CHLORIDE 0.9% 250 ML IV PRN (08:27)
[2021-02-09 08:41] LABS: Basophils # (auto) 0.04 K/uL (0-0.2); Basophils % (auto) 0.4 %; Eosinophils # (auto) 0.51 K/uL (0-0.5); Eosinophils % (auto) 5.1 %; Immature Granulocytes # (auto) 0.24 K/uL (0.00-0.02); Immature Granulocytes % (auto) 2.4 %; Lymphocytes # (auto) 2.25 K/uL (1.2-3.4); Lymphocytes % (auto) 22.6 %; Monocytes # (auto) 0.63 K/uL (0.11-0.59); Monocytes % (auto) 6.3 %; Neutrophils # (auto) 6.29 K/uL (1.4-6.5); Neutrophils % (auto) 63.2 %; Rouleaux 1+
--- NOTE | 2021-02-09 08:42 | Pharmacy Report ---
Pharmacy Abx Dose Short Note - Date of Service February 09, 2021 - Assessment & Plan Assessment 60 year old F receiving IV antibiotic therapy for RLE diabetic foot ulcer, osteomyelitis. * Gracielaer ID recommended dapto + meropenem x 6 weeks and follow up with vascular surgeon for possible surgical intervention * Patient developed severe CPK elevation on dapto (CPK = 7772--> 6606 --> 4401). Dapto on hold. Started on vancomycin 750mg IV Q12hrs. Trough level ordered yesterday prior to second maintenance dose. Plan Vancomycin * Trough level of 18.7 mcg/mL is therapeutic; however, vanco is NOT at steady state and further vanco accumulation likely with elevated BMI. * Calculated T1/2 is ~ 17.2 hrs; will adjust dosing to match pt PK. * Change to 1000 mg IV every 18 hours * Goal trough level for bone/joint : 15 to 20 mcg/mL * Trough level ordered for: 02/11/21 @ 1000 Pharmacy will continue to follow and will adjust dose/frequency as necessary. Thank you.
[2021-02-09] MEDS ORDERED: diphenhydrAMINE HCl 12.5 MG/5 ML UDC PO SCH (09:00)
[2021-02-09] MEDS: INSULIN ASPART 100 UNITS/ML 3 ML PEN SC SCH ×4 (09:04→21:38)
[2021-02-09] MEDS: INSULIN GLARGINE SOLOSTAR 100 UNITS/ML 3 ML PEN SC SCH ×2 (09:05→21:38)
--- NOTE | 2021-02-09 14:21 | Hospitalist Progress Note ---
Date of Service February 09, 2021 Assessment & Plan (1) Non-traumatic rhabdomyolysis: Plan: Improved CK on the IVF with 4000 this am. Avoid daptomycin moving forward. Cont holding statin. Resume IVF after blood products infuse and equilibrate in the body. (2) Postmenopausal bleeding: Plan: Vaginal bleeding has now stopped. Trannsvaginal US shows thickened endometrium. CONSULTING APPLICATION ENGINEER consulted; recommended OP evaluation for endometrial biopsy. (3) Diabetic foot infection: Plan: Right midfoot diabetic foot ulcer: Has this chronically. Follows with her vascular surgeon, Dr. Lomeli. Blood cultures negative thus far. Leukocytosis present as well as a secondary cellulitis that is new since admission per patient. Cellulitis is imporved today on current IV abx (Dapto/Merrem) Pain in her foot is present and managed with Tramadol. Pulses are present with doppler. Elevated inflammatory markers expected-will trend as outpatient with treatment. MRI of the foot suggest extensive osteomyelitis superimposed upon a neuropathic arthropathy. Rapid progression of neuropathic arthropathy is considered less likely. Extensive infectious process is the diagnosis of exclusion. Per ortho and ID antibiotics are unlikely to get better with antibiotics. Orthopedics recommended to follow-up with her vascular surgeon at [facility] plan for surgical intervention such as possible amputation. Change abx to Vanc/Merrem with dapto-induced rhabdo above-WITH H/O INFUSION REACTION, PLEASE RUN VANCOMYCIN AT 100MLS/HR PICC placed 02/03 Will plan for dc home with IV abx and followup on 02/15 with vascular as planned. (4) Osteomyelitis of right foot: Plan: cont broad spectrum abx per plan above. (5) Peripheral arterial disease: Plan: Restarted Plavix and Eliquis 02/02, and some extra bleeding present, ASA held--Hgb dropped this am, blood thinners held Follow up with vascular surgery, Dr. Lomeli; appt 02/15. (6) Acute blood loss anemia: Plan: Likely a combination of response from recent blood loss, daily phlebotomy, anemic of chronic inflammation, and dilution in setting of IVF to treat rhabdomyolysis. Reports feeling tired today. Her hemoglobin is 6.3 on admission. Received 3 units of PRBCs. Patient has triple anticoagulation with Eliquis, aspirin and Plavix. Blood thinners held on admission, and then restarted 02/02. Drop in H/H as above. Held blood thinners again now. Outpatient vascular surgeon to restart as able in next week. Transfuse two additional units of blood today. (7) Diabetes mellitus type 2, uncontrolled: Plan: around goal, cont current insulin regimen. (8) Diabetic ulcer of left great toe: Plan: cont plan as above. Cont local wound care (9) Charcot's joint of foot due to diabetes: Plan: chronic, ambulates with a cam boot at baseline. (10) Chronic kidney disease (CKD), stage III (moderate): Plan: creatinine around baseline. Monitor PRN (11) Hypertension: Plan: On metoprolol and diuretics, at goal. (12) DVT prophylaxis: Plan: SCDs/chemoprophylaxis held in setting of bleeding and acute blood loss anemia. Full Code Dispo-consider DC in am if CK continues to trend down. Home with home health DO [facility] Hospitalist Admission and Anticipated Discharge Date Admission Date: January 30, 2021 Subjective 60 yo F with chronic PAD, complicated DMII, on anticoagulation presented with vaginal bleeding, also found to have worsening diabetic foot infection Foot pain is managed Hb lower this am-giving two units of blood Reports feeling more tired today Holding fluids during transfusion-discussed this Patient doing well on slow vanc infusion CK trending down and she is feeling better Review of Systems Review of Systems: At least ten systems were reviewed and negative except as indicated in HPI above. Physical Exam Physical Exam: CONSTITUTIONAL: obese, vitals as above, generally well- appearing EYES: normal conjunctivae, no scleral icterus ENT: external ear and nose normal, oropharynx clear, MMM NECK: trachea midline RESPIRATORY: clear to auscultation bilaterally, no crackles, rales or wheezes, normal respiratory effort CARDIOVASCULAR: regular rate and rhythm, 2/6 MARLIN heard at LSB, no gallops or rubs, no JVD, 2+ peripheral edema in distal RLE around her wound GASTROINTESTINAL: soft, nontender,nondistended. MUSCULOSKELETAL: strength 5/5 throughout, head is normocephalic and atraumatic SKIN: warm and dry, RLE: large wound on lateral side of right foot-wrapped wtih gauze and TATY, small wound on right great toe (distal tip)-appears to be closed and eschar, small pressure ulcer on her right heel. Bright red erythema in distal half of her RLE, which is improved from line drawn. Associated edema persists. R leg > L leg in terms of overall size and circumference. NEUROLOGIC: CN 2-12 grossly intact, no sensory deficit, normal cognition, normal speech, no tremor PSYCHIATRIC: alert cooperative and oriented to person, place and time. Results & Data Results & Data ([facility]) Vital Signs (Past 12 Hours) Vital Signs Temp Pulse Pulse Resp BP BP Pulse Ox 02/09/21 14:04 35.6 C L 71 18 118/74 98 02/09/21 13:38 36.5 C 67 20 153/79 H 100 02/09/21 13:12 36.4 C L 71 18 131/73 100 02/09/21 12:12 36.5 C 67 18 133/74 99 02/09/21 11:42 36.5 C 71 20 147/63 H 97 02/09/21 11:27 37.1 C 69 18 133/79 98 02/09/21 11:08 36.6 C 70 18 140/65 98 02/09/21 07:07 36.6 C 77 16 121/71 99 Laboratory Results Short CBC 02/09/21 Range/Units 05:46 WBC 9.96 (4.8-10.8) K/uL Hgb 6.4 L* (12.0-16.0) g/dL Hct 20.5 L* (37-47) % Plt Count 333 (130-400) K/uL BMP 02/09/21 02/09/21 05:46 05:46 Sodium 136 Potassium 4.2 Chloride 103 Carbon Dioxide 28 BUN 44 H Creatinine 1.12 1.10 Glucose 191 H Calcium 9.2 Cardiac Enzymes 02/09/21 Range/Units 05:46 Total Creatine Kinase 4401 H (26-192) U/L Liver Function 02/09/21 Range/Units 05:46 Total Bilirubin 0.3 (0.2-1) mg/dl AST 302 H (15-37) U/L ALT 155 H (12-78) U/L Alkaline Phosphatase 143 H (45-117) U/L Albumin 1.5 L (3.4-5.0) gm/dl Medications Administered Current Inpatient Medications Acetaminophen (Acetaminophen 325 Mg Tab) 650 mg PO Q4H PRN PRN Reason: Pain or Fever Stop: 03/01/21 22:23 Last Admin: 02/05/21 17:31 Dose: 650 mg Documented by: Acetaminophen (Acetaminophen 325 Mg Tab) 650 mg PO PRE-TREAT ONE Stop: 02/09/21 16:27 Last Admin: 02/09/21 10:45 Dose: 650 mg Documented by: Diphenhydramine HCl (Diphenhydramine Hcl 12.5 Mg/5 Ml Udc) 12.5 mg PO PRE-TREAT PER Stop: 02/09/21 16:00 Last Admin: 02/09/21 10:45 Dose: 12.5 mg Documented by: Ferrous Sulfate (Ferrous Sulfate 325 Mg Tab) 325 mg PO DAILY PER Stop: 03/02/21 08:59 Last Admin: 02/09/21 08:13 Dose: 325 mg Documented by: Furosemide (Furosemide 80 Mg Tab) 80 mg PO MoWeFr PER Stop: 03/03/21 08:59 Last Admin: 02/08/21 08:26 Dose: 80 mg Documented by: Heparin Sodium (Beef Lung) (Heparin 10 Unit/Ml 5 Ml Flush) 5 ml FLUSH PRN PRN PRN Reason: Flush Stop: 03/05/21 22:59 Last Admin: 02/07/21 05:57 Dose: 5 ml Documented by: Meropenem 500 mg/ Syringe 10 mls @ 2 mls/min IV Q6H [facility]; Protocol Stop: 02/16/21 11:59 Last Admin: 02/09/21 06:02 Dose: 2 mls/min Documented by: Lactated Ringer's (Lr) 1,000 mls @ 200 mls/hr IV .Q5H PER Stop: 03/09/21 14:14 Last Infusion: 02/09/21 08:56 Dose: 0 mls/hr Documented by: Sodium Chloride (Nss) 250 mls @ 15 mls/hr IV .[id number] PRN PRN Reason: For Transfusion Stop: 02/09/21 18:28 Vancomycin HCl 1,000 mg/ (Sodium Chloride) 270 mls @ 100 mls/hr IV Q18H [facility]; Protocol Stop: 03/23/21 21:59 Insulin Aspart (Insulin Aspart 100 Units/Ml 3 Ml Pen) 0 units SC ACHS PER Stop: 03/04/21 22:44 Last Admin: 02/09/21 12:55 Dose: 13 units Documented by: Insulin Glargine (Insulin Glargine Solostar 100 Units/Ml 3 Ml Pen) 25 units SC BID [facility] Stop: 03/01/21 22:59 Last Admin: 02/09/21 09:05 Dose: 25 units Documented by: Lactobacillus Acidoph/Casei/Rhamnos (Advanced Probiotic 1250 Mg Capsule) 2 cap PO QAM [facility] Stop: 03/08/21 10:59 Last Admin: 02/09/21 08:13 Dose: 2 cap Documented by: Magnesium Oxide (Magnesium Oxide 400 Mg Tab) 800 mg PO QAM [facility] Stop: 03/02/21 08:59 Last Admin: 02/09/21 08:13 Dose: 800 mg Documented by: Metoprolol Tartrate (Metoprolol Tartrate 25 Mg Tab) 25 mg PO BID [facility] Stop: 03/01/21 22:23 Last Admin: 02/09/21 08:13 Dose: 25 mg Documented by: Miscellaneous Information (Meropenem Consult Acitve) 1 ea N/A UD PRN PRN Reason: Consult Stop: 03/04/21 19:52 Miscellaneous Information (Vancomycin Consult Active) 1 ea N/A UD PRN PRN Reason: Consult Stop: 03/09/21 14:40 Nitroglycerin (Nitroglycerin Sl 0.4 Mg/Tab Tab) 0.4 mg SL UD PRN PRN Reason: Chest Pain Stop: 03/01/21 22:23 Ondansetron HCl (Ondansetron Inj 2 Mg/Ml 2 Ml Vial) 4 mg IV Q6H PRN PRN Reason: Nausea Stop: 03/01/21 22:23 Polyethylene Glycol (Polyethylene (Miralax) 17 Gm Pack) 17 gm PO DAILY PRN PRN Reason: Constipation Stop: 03/01/21 22:23 Rosuvastatin Calcium (Rosuvastatin Calcium 20 Mg Tab) 40 mg PO HS [facility] Stop: 03/01/21 22:23 Last Admin: 01/31/21 19:50 Dose: 40 mg Documented by: Tramadol HCl (Tramadol Hcl 50 Mg Tablet) 50 mg PO Q8H PRN PRN Reason: Pain Stop: 03/01/21 22:23 Last Admin: 02/09/21 01:46 Dose: 50 mg Documented by: Vitamin D (Cholecalciferol 1,000 Units 25 Mcg Tab) 5,000 units PO QAM [facility] Stop: 03/02/21 08:59 Last Admin: 02/09/21 08:14 Dose: 5,000 units Documented by: (1) Diabetes mellitus type 2, uncontrolled Glycemic state: with hyperglycemia Qualified Code(s): E11.65 - Type 2 diabetes mellitus with hyperglycemia (2) Hypertension Hypertension type: essential hypertension Qualified Code(s): I10 - Essential (primary) hypertension
[2021-02-09 19:19] LABS: Hematocrit (blood only) 26.9 % (37-47); Hemoglobin 8.7 g/dL (12.0-16.0)
[2021-02-09] MEDS ORDERED: VANCOMYCIN HCL 1,000 MG in SODIUM CHLORIDE 0.9% 250 ML IV SCH (22:00)
[2021-02-10] MEDS: MEROPENEM 500 MG in SYRINGE 0 ML IV SCH ×3 (00:40→13:46)
[2021-02-10] MEDS: traMADol HCL 50 MG TABLET PO PRN ×2 (00:48→18:05)
[2021-02-10 06:01] LABS: Hematocrit (blood only) 25.6 % (37-47); Hemoglobin 8.2 g/dL (12.0-16.0); Mean Corpuscular Volume 84.2 fL (80-100); Mean Platelet Volume 8.7 fL (7.4-10.4); Platelet Count 295 K/uL (130-400); RDW Coefficient of Variation 17.8 % (11.5-14.5); RDW Standard Deviation 55.4 fL (36.4-46.3); Red Blood Count 3.04 M/uL (4.2-5.4); White Blood Count 8.91 K/uL (4.8-10.8)
[2021-02-10 06:27] LABS: Albumin Level 1.6 gm/dl (3.4-5.0); BUN Creatinine Ratio 45.3 (10-20); Calcium 9.2 mg/dl (8.5-10.1); Est GFR (African American) 85.7 ml/min; Potassium 4.1 mmol/L (3.5-5.1)
[2021-02-10 06:41] LABS: Albumin Globulin Ratio 0.3 (0.9-2); Bilirubin,Total 0.4 mg/dl (0.2-1); Total Protein 6.6 gm/dl (6.4-8.2)
[2021-02-10] MEDS: FUROSEMIDE 80 MG TAB PO SCH (08:58)
[2021-02-10] MEDS: FERROUS SULFATE 325 MG TAB PO SCH (08:58)
[2021-02-10] MEDS: MAGNESIUM OXIDE 400 MG TAB PO SCH (08:58)
[2021-02-10] MEDS: ADVANCED PROBIOTIC 1250 MG CAPSULE PO SCH (08:58)
[2021-02-10] MEDS: INSULIN ASPART 100 UNITS/ML 3 ML PEN SC SCH ×4 (08:59→21:54)
[2021-02-10] MEDS: CHOLECALCIFEROL 1,000 UNITS 25 MCG TAB PO SCH (08:59)
[2021-02-10] MEDS: METOPROLOL TARTRATE 25 MG TAB PO SCH ×2 (08:59→22:01)
[2021-02-10] MEDS: INSULIN GLARGINE SOLOSTAR 100 UNITS/ML 3 ML PEN SC SCH ×2 (09:45→21:53)
[2021-02-10] MEDS: LACTATED RINGER'S 1,000 ML IV SCH ×3 (09:46→23:26)
--- NOTE | 2021-02-10 10:44 | Hospitalist Progress Note ---
Date of Service February 10, 2021 Assessment & Plan (1) Non-traumatic rhabdomyolysis: Plan: Improved CK on the IVF with ~2000 this am. 02/10/2021 Daptomycin has been discontinued Cont holding statin. Continue IV fluid for now Advised to drink more fluid. (2) Postmenopausal bleeding: Plan: Vaginal bleeding has now stopped. Trannsvaginal US shows thickened endometrium. JERKER consulted; recommended OP evaluation for endometrial biopsy. She will make an appointment as an outpatient with [facility] (3) Diabetic foot infection: Plan: Right midfoot diabetic foot ulcer: Has this chronically. Follows with her vascular surgeon, Dr. Lomeli. Blood cultures negative thus far. Leukocytosis present as well as a secondary cellulitis that is new since admission per patient. Cellulitis is imporved today on current IV abx (Dapto/Merrem)-Dapto has been discontinued due to rhabdomyolysis Pain in her foot is present and managed with Tramadol. Pulses are present with doppler. MRI of the foot suggest extensive osteomyelitis superimposed upon a neuropathic arthropathy. Rapid progression of neuropathic arthropathy is considered less likely. Extensive infectious process is the diagnosis of exclusion. Per ortho and ID antibiotics are unlikely to get better with antibiotics. Orthopedics recommended to follow-up with her vascular surgeon at [facility] plan for surgical intervention such as possible amputation.-She has an appointment with the Ortho on eighth of this month Change abx to Vanc/Merrem with dapto-induced rhabdo above-WITH H/O INFUSION REACTION, PLEASE RUN VANCOMYCIN AT 100MLS/HR Vancomycin 1500 mg daily and meropenem 1 g every 8 hourly to be continued until 16 March 2021 Likely be discharged tomorrow (4) Osteomyelitis of right foot: Plan: cont broad spectrum abx per plan above. (5) Peripheral arterial disease: Plan: Restarted Plavix and Eliquis 02/02, and some extra bleeding present, ASA held--Hgb dropped this am, blood thinners held Follow up with vascular surgery, Dr. Lomeli; appt 02/15. (6) Acute blood loss anemia: Plan: Likely a combination of response from recent blood loss, daily phlebotomy, anemic of chronic inflammation, and dilution in setting of IVF to treat rhabdomyolysis. Reports feeling tired today. Her hemoglobin is 6.3 on admission. Received 3 units of PRBCs. Patient has triple anticoagulation with Eliquis, aspirin and Plavix. Blood thinners held on admission, and then restarted 02/02. Drop in H/H as above. Held blood thinners again now. Outpatient vascular surgeon to restart as able in next week. Transfuse two additional units of blood today. Hemoglobin remains stable at more than 8 for the last 2 days Charge home tomorrow (7) Diabetes mellitus type 2, uncontrolled: Plan: around goal, cont current insulin regimen. (8) Diabetic ulcer of left great toe: Plan: cont plan as above. Cont local wound care (9) Charcot's joint of foot due to diabetes: Plan: chronic, ambulates with a cam boot at baseline. (10) Chronic kidney disease (CKD), stage III (moderate): Plan: creatinine around baseline. Creatinine remains stable (11) Hypertension: Plan: On metoprolol and diuretics, at goal. (12) DVT prophylaxis: Plan: SCDs/chemoprophylaxis held in setting of bleeding and acute blood loss anemia. Full Code Dispo-consider DC in am if CK continues to trend down. Home with home health Discharge home tomorrow Admission and Anticipated Discharge Date Admission Date: January 30, 2021 Subjective 02/10/2021 The patient was seen and examined in medical floor She has been doing fine and denies any complaints this morning She has been moving around in the room without any significant problem Denies any fever and/or chills, no pain in the legs Review of Systems Review of Systems: All systems reviewed and are unremarkable except as noted below Musculoskeletal: Right foot ulcer. Physical Exam Physical Exam: Sitting at the edge of the bed without any acute distress Constitutional: well developed, well nourished and + obese; not ill appearing Eyes: PERRL, conjunctivae normal, anicteric sclerae ENMT: external ear and nose normal, oropharynx normal Neck: trachea midline, no thyromegaly Respiratory: no respiratory distress and no cough Auscultation: lungs clear to auscultation bilaterally Cardiovascular: Rate/Rhythm: regular rate and regular rhythm; not tachycardic Heart Sounds: normal S1, normal S2 and + murmur (2/6 ESM over precordium) Gastrointestinal (Abdomen): Inspection/Auscultation: + abdomen distended Percussion/Palpation: abdomen soft; abdomen nontender Musculoskeletal: Right foot ulceration. Right great toe ulceration as well. Can move the toes Neurologic: Awake and oriented x3. No focal sensory and motor deficit appreciated Lymphatic: no cervical or axillary lymphadenopathy Results & Data Results & Data ([facility]) Vital Signs (Past 12 Hours) Vital Signs Temp Pulse Resp BP Pulse Ox 02/10/21 07:21 36.7 C 70 16 124/58 L 97 Laboratory Results Short CBC 02/09/21 02/10/21 Range/Units 19:08 05:41 WBC 8.91 (4.8-10.8) K/uL Hgb 8.7 L 8.2 L (12.0-16.0) g/dL Hct 26.9 L 25.6 L (37-47) % Plt Count 295 (130-400) K/uL BMP 02/10/21 05:41 Sodium 139 Potassium 4.1 Chloride 106 Carbon Dioxide 31 BUN 39 H Creatinine 0.85 Glucose 111 H Calcium 9.2 Cardiac Enzymes 02/10/21 Range/Units 05:41 Total Creatine Kinase 2167 H (26-192) U/L Liver Function 02/10/21 Range/Units 05:41 Total Bilirubin 0.4 (0.2-1) mg/dl AST 203 H (15-37) U/L ALT 147 H (12-78) U/L Alkaline Phosphatase 129 H (45-117) U/L Albumin 1.6 L (3.4-5.0) gm/dl Medications Administered Current Inpatient Medications Acetaminophen (Acetaminophen 325 Mg Tab) 650 mg PO Q4H PRN PRN Reason: Pain or Fever Stop: 03/01/21 22:23 Last Admin: 02/05/21 17:31 Dose: 650 mg Documented by: Ferrous Sulfate (Ferrous Sulfate 325 Mg Tab) 325 mg PO DAILY PER Stop: 03/02/21 08:59 Last Admin: 02/10/21 08:58 Dose: 325 mg Documented by: Furosemide (Furosemide 80 Mg Tab) 80 mg PO MoWeFr PER Stop: 03/03/21 08:59 Last Admin: 02/10/21 08:58 Dose: 80 mg Documented by: Heparin Sodium (Beef Lung) (Heparin 10 Unit/Ml 5 Ml Flush) 5 ml FLUSH PRN PRN PRN Reason: Flush Stop: 03/05/21 22:59 Last Admin: 02/10/21 06:13 Dose: 5 ml Documented by: Meropenem 500 mg/ Syringe 10 mls @ 2 mls/min IV Q6H [facility]; Protocol Stop: 02/16/21 17:59 Last Admin: 02/10/21 06:13 Dose: 2 mls/min Documented by: Lactated Ringer's (Lr) 1,000 mls @ 200 mls/hr IV .Q5H [facility] Stop: 03/09/21 14:14 Last Infusion: 02/09/21 08:56 Dose: 0 mls/hr Documented by: Vancomycin HCl 1,000 mg/ (Sodium Chloride) 270 mls @ 100 mls/hr IV Q18H [facility]; Protocol Stop: 03/23/21 21:59 Last Infusion: 02/10/21 00:41 Dose: Infused Documented by: Lactated Ringer's (Lr) 1,000 mls @ 150 mls/hr IV .Q6H40M [facility] Stop: 03/12/21 06:59 Last Admin: 02/10/21 09:46 Dose: 150 mls/hr Documented by: Insulin Aspart (Insulin Aspart 100 Units/Ml 3 Ml Pen) 0 units SC ACHS [facility] Stop: 03/04/21 22:44 Last Admin: 02/10/21 08:59 Dose: 11 units Documented by: Insulin Glargine (Insulin Glargine Solostar 100 Units/Ml 3 Ml Pen) 25 units SC BID [facility] Stop: 03/01/21 22:59 Last Admin: 02/10/21 09:45 Dose: 25 units Documented by: Lactobacillus Acidoph/Casei/Rhamnos (Advanced Probiotic 1250 Mg Capsule) 2 cap PO QAM [facility] Stop: 03/08/21 10:59 Last Admin: 02/10/21 08:58 Dose: 2 cap Documented by: Magnesium Oxide (Magnesium Oxide 400 Mg Tab) 800 mg PO QAM [facility] Stop: 03/02/21 08:59 Last Admin: 02/10/21 08:58 Dose: 800 mg Documented by: Metoprolol Tartrate (Metoprolol Tartrate 25 Mg Tab) 25 mg PO BID [facility] Stop: 03/01/21 22:23 Last Admin: 02/10/21 08:59 Dose: 25 mg Documented by: Miscellaneous Information (Meropenem Consult Acitve) 1 ea N/A UD PRN PRN Reason: Consult Stop: 03/04/21 19:52 Miscellaneous Information (Vancomycin Consult Active) 1 ea N/A UD PRN PRN Reason: Consult Stop: 03/09/21 14:40 Nitroglycerin (Nitroglycerin Sl 0.4 Mg/Tab Tab) 0.4 mg SL UD PRN PRN Reason: Chest Pain Stop: 03/01/21 22:23 Ondansetron HCl (Ondansetron Inj 2 Mg/Ml 2 Ml Vial) 4 mg IV Q6H PRN PRN Reason: Nausea Stop: 03/01/21 22:23 Polyethylene Glycol (Polyethylene (Miralax) 17 Gm Pack) 17 gm PO DAILY PRN PRN Reason: Constipation Stop: 03/01/21 22:23 Rosuvastatin Calcium (Rosuvastatin Calcium 20 Mg Tab) 40 mg PO HS [facility] Stop: 03/01/21 22:23 Last Admin: 01/31/21 19:50 Dose: 40 mg Documented by: Tramadol HCl (Tramadol Hcl 50 Mg Tablet) 50 mg PO Q8H PRN PRN Reason: Pain Stop: 03/01/21 22:23 Last Admin: 02/10/21 00:48 Dose: 50 mg Documented by: Vitamin D (Cholecalciferol 1,000 Units 25 Mcg Tab) 5,000 units PO QAM [facility] Stop: 03/02/21 08:59 Last Admin: 02/10/21 08:59 Dose: 5,000 units Documented by: (1) Diabetes mellitus type 2, uncontrolled Glycemic state: with hyperglycemia Qualified Code(s): E11.65 - Type 2 diabetes mellitus with hyperglycemia (2) Hypertension Hypertension type: essential hypertension Qualified Code(s): I10 - Essential (primary) hypertension
[2021-02-10] MEDS ORDERED: VANCOMYCIN HCL 1,500 MG in SODIUM CHLORIDE 0.9% 500 ML IV SCH (14:00)
[2021-02-10] MEDS: MEROPENEM 1,000 MG in SYRINGE 0 ML IV SCH ×2 (14:26→22:04)
[2021-02-11] MEDS: LACTATED RINGER'S 1,000 ML IV SCH ×2 (04:26→11:04)
[2021-02-11] MEDS: MEROPENEM 1,000 MG in SYRINGE 0 ML IV SCH (06:28)
[2021-02-11] MEDS: traMADol HCL 50 MG TABLET PO PRN (06:35)
[2021-02-11 07:00] LABS: Albumin Level 1.6 gm/dl (3.4-5.0); BUN Creatinine Ratio 47.5 (10-20); Calcium 9.3 mg/dl (8.5-10.1); Est GFR (African American) 85.7 ml/min; Potassium 3.7 mmol/L (3.5-5.1)
[2021-02-11 07:03] LABS: Albumin Globulin Ratio 0.3 (0.9-2); Bilirubin,Total 0.3 mg/dl (0.2-1); Globulin 4.8 gm/dl (2.5-4.0); Total Protein 6.4 gm/dl (6.4-8.2)
--- NOTE | 2021-02-11 08:55 | Hospitalist Progress Note ---
Date of Service February 11, 2021 Assessment & Plan (1) Non-traumatic rhabdomyolysis: Plan: Improved CK on the IVF with ~2000 this am. 02/10/2021 Daptomycin has been discontinued Cont holding statin. Continue IV fluid for now her CK level has improved a lot which is 764 as of 02/11/2021 Her liver function is also improving (2) Postmenopausal bleeding: Plan: Vaginal bleeding has now stopped. Trannsvaginal US shows thickened endometrium. MRI SPECIAL PROCEDURES TECHNOLOGIST consulted; recommended OP evaluation for endometrial biopsy. She will make an appointment as an outpatient with [facility] (3) Diabetic foot infection: Plan: Right midfoot diabetic foot ulcer: Please see the picture for detailed view of the wound/ulcer Has this chronically. Follows with her vascular surgeon, Dr. Lomeli. Blood cultures negative thus far. Leukocytosis present as well as a secondary cellulitis that is new since admission per patient. Cellulitis is imporved today on current IV abx (Dapto/Merrem)-Dapto has been discontinued due to rhabdomyolysis Pain in her foot is present and managed with Tramadol. Pulses are present with doppler. MRI of the foot suggest extensive osteomyelitis superimposed upon a neuropathic arthropathy. Rapid progression of neuropathic arthropathy is considered less likely. Extensive infectious process is the diagnosis of exclusion. Per ortho and ID antibiotics are unlikely to get better with antibiotics. Orthopedics recommended to follow-up with her vascular surgeon at [facility] plan for surgical intervention such as possible amputation.-She has an appointment with the Ortho on eighth of this month Change abx to Vanc/Merrem with dapto-induced rhabdo above-WITH H/O INFUSION REACTION, PLEASE RUN VANCOMYCIN AT 100MLS/HR Vancomycin 1500 mg daily and meropenem 1 g every 8 hourly to be continued until 16 March 2021 antibiotic prescriptions has been given to the home health nurse she will be going home this afternoon (4) Osteomyelitis of right foot: Plan: cont broad spectrum abx per plan above. (5) Peripheral arterial disease: Plan: Restarted Plavix and Eliquis 02/02, and some extra bleeding present, ASA held--Hgb dropped this am, blood thinners held Follow up with vascular surgery, Dr. Lomeli; appt 02/15. (6) Acute blood loss anemia: Plan: Likely a combination of response from recent blood loss, daily phlebotomy, anemic of chronic inflammation, and dilution in setting of IVF to treat rhabdomyolysis. Reports feeling tired today. Her hemoglobin is 6.3 on admission. Received 3 units of PRBCs. Patient has triple anticoagulation with Eliquis, aspirin and Plavix. Blood thinners held on admission, and then restarted 02/02. Drop in H/H as above. Held blood thinners again now. Outpatient vascular surgeon to restart as able in next week. Transfuse two additional units of blood today. Hemoglobin remains stable at more than 8 for the last 2 days discharge home this afternoon (7) Diabetes mellitus type 2, uncontrolled: Plan: around goal, cont current insulin regimen. (8) Diabetic ulcer of left great toe: Plan: cont plan as above. Cont local wound care (9) Charcot's joint of foot due to diabetes: Plan: chronic, ambulates with a cam boot at baseline. (10) Chronic kidney disease (CKD), stage III (moderate): Plan: creatinine around baseline. Creatinine remains stable (11) Hypertension: Plan: On metoprolol and diuretics, at goal. (12) DVT prophylaxis: Plan: SCDs/chemoprophylaxis held in setting of bleeding and acute blood loss anemia. Full Code Dispo-consider DC in am if CK continues to trend down. Home with home health Discharge home tomorrow Admission and Anticipated Discharge Date Admission Date: January 30, 2021 Subjective 02/10/2021 The patient was seen and examined in medical floor She has been doing fine and denies any complaints this morning She has been moving around in the room without any significant problem Denies any fever and/or chills, no pain in the legs 02/11/2021 the patient was seen and examined in medical floor denies any significant symptoms overnight will be discharged home this afternoon Review of Systems Review of Systems: All systems reviewed and are unremarkable except as noted below Musculoskeletal: Right foot ulcer. Physical Exam Physical Exam: Sitting at the edge of the bed without any acute distress Constitutional: well developed, well nourished and + obese; not ill appearing Eyes: PERRL, conjunctivae normal, anicteric sclerae ENMT: external ear and nose normal, oropharynx normal Neck: trachea midline, no thyromegaly Respiratory: no respiratory distress and no cough Auscultation: lungs clear to auscultation bilaterally Cardiovascular: Rate/Rhythm: regular rate and regular rhythm; not tachycardic Heart Sounds: normal S1, normal S2 and + murmur (2/6 ESM over precordium) Gastrointestinal (Abdomen): Inspection/Auscultation: + abdomen distended Percussion/Palpation: abdomen soft; abdomen nontender Lymphatic: no cervical or axillary lymphadenopathy Results & Data Results & Data ([facility]) Vital Signs (Past 12 Hours) Vital Signs Temp Pulse Pulse Resp BP Pulse Ox 02/11/21 07:47 36.6 C 67 18 125/54 L 98 02/10/21 22:34 36.6 C 74 16 134/72 98 02/10/21 21:52 73 123/76 Laboratory Results BMP 02/11/21 06:06 Sodium 139 Potassium 3.7 Chloride 104 Carbon Dioxide 30 BUN 40 H Creatinine 0.85 Glucose 96 Calcium 9.3 Cardiac Enzymes 02/11/21 Range/Units 06:06 Total Creatine Kinase 764 H (26-192) U/L Liver Function 02/11/21 Range/Units 06:06 Total Bilirubin 0.3 (0.2-1) mg/dl AST 115 H (15-37) U/L ALT 118 H (12-78) U/L Alkaline Phosphatase 133 H (45-117) U/L Albumin 1.6 L (3.4-5.0) gm/dl (1) Diabetes mellitus type 2, uncontrolled Glycemic state: with hyperglycemia Qualified Code(s): E11.65 - Type 2 diabetes mellitus with hyperglycemia (2) Hypertension Hypertension type: essential hypertension Qualified Code(s): I10 - Essential (primary) hypertension
[2021-02-11] MEDS ORDERED: VANCOMYCIN TROUGH ONE (09:30)
[2021-02-11] MEDS: INSULIN ASPART 100 UNITS/ML 3 ML PEN SC SCH ×2 (09:37→12:28)
[2021-02-11] MEDS: INSULIN GLARGINE SOLOSTAR 100 UNITS/ML 3 ML PEN SC SCH (09:38)
[2021-02-11] MEDS: CHOLECALCIFEROL 1,000 UNITS 25 MCG TAB PO SCH (09:45)
[2021-02-11] MEDS: ADVANCED PROBIOTIC 1250 MG CAPSULE PO SCH (09:45)
[2021-02-11] MEDS: MAGNESIUM OXIDE 400 MG TAB PO SCH (09:46)
[2021-02-11] MEDS: FERROUS SULFATE 325 MG TAB PO SCH (09:46)
[2021-02-11] MEDS: METOPROLOL TARTRATE 25 MG TAB PO SCH (09:46)
--- NOTE | 2021-02-12 07:30 | Discharge Summary ---
Date of Service February 12, 2021 Admission HPI Per Admitting Provider DICTATED BY: Sander Henriquez MD DATE OF ADMISSION: 01/30/2021. CHIEF COMPLAINT: Vaginal bleeding. HISTORY OF PRESENT ILLNESS: This is a 60-year-old female with past medical history significant for type 2 diabetes, diabetic polyneuropathy, diabetic Charcot foot, diabetic right mid foot ulcer, dyslipidemia, diabetic retinopathy, obstructive sleep apnea, currently not using any CPAP, history of peripheral vascular disease and multiple procedures to lower extremities, chronic diastolic CHF, hypertension, morbid obesity, reflux esophagitis, chronic kidney disease stage III, generalized osteoarthritis of multiple sites, insomnia, varicose veins, who presents with vaginal bleeding. The patient says since last few days she is having bleeding from her vagina and she has been dizzy. Initially bleeding was lot, but getting better. Now has some blood clots. Denies any abdominal pain. Normal bowel movements. Yesterday she had an episode of vomiting. Today, there is some nausea, but currently okay. Denies any chest pain. No shortness of breath, no cough, no fevers, no headache, no blurred visions, no earache, no runny nose, no sore throat. She says the right midfoot wound is getting better. She recently in [place] had a procedure. On 11/14/2020, she underwent right lower extremity angiogram, mechanical thrombectomy of preexisting superficial femoral artery stent , balloon angioplas ty of the superficial femoral artery stent, balloon angioplasty of superficial femoral artery drug-coated balloon, stent angioplasty of the superficial femoral artery using bare metal stent and debridement of the right lateral foot by Dr. Lomeli, vascular surgery. Since the procedure, the patient says the wound is getting better. She follows with Dr. Lomeli and changes dressing herself at home daily. She lives with her and family and she ambulates with a walker. Appetite is okay. Sleeps okay. Currently, resting comfortably and hemodynamically stable. Her hemoglobin was found to be 6.3. She is getting blood transfusion in the ER. Admission Exam Per Admitting Provider GENERAL: The patient is morbidly obese, not in acute distress. VITAL SIGNS: Temperature 36.8, pulse 70, respiratory rate 18, blood pressure 110/56, oxygen 95% on room air. HEENT: Pupils equal, round and reactive to light. Oral mucosa moist. NECK: No JVD, no neck masses. CARDIOVASCULAR: S1 and S2 heard. Regular rate and rhythm. No murmur, no gallop. RESPIRATORY SYSTEM: Normal AP diameter. No accessory muscle use. No wheezing, no crackles. ABDOMEN: Soft, bowel sounds present, nontender, no distention. CENTRAL NERVOUS SYSTEM: Alert and oriented. Speech is clear. No facial droop. Moves extremities. EXTREMITIES: Lower extremity edema present. Right lower extremity, foot is in dressing, which was checked and she has a right midfoot ulcer on the lateral aspect and some drainage seen and also she has a pressure ulcer on the right ankle. Principal Diagnosis post menopausal bleeding-resolved diabetic foot infection with ulceration and right foot osteomyelitis peripheral arterial disease acute blood loss anemia diabetic ulcer of left great toe charcot foot on left DMII-insulin dependent Discharge Exam Constitutional well developed, well nourished and + obese; not ill appearing Eyes PERRL, conjunctivae normal, anicteric sclerae ENMT external ear and nose normal, oropharynx normal Neck trachea midline, no thyromegaly Respiratory no respiratory distress and no cough Auscultation: lungs clear to auscultation bilaterally Cardiovascular Rate/Rhythm: regular rate and regular rhythm; not tachycardic Heart Sounds: normal S1, normal S2 and + murmur (2/6 ESM over precordium) Gastrointestinal (Abdomen) Inspection/Auscultation: + abdomen distended Percussion/Palpation: abdomen soft; abdomen nontender Lymphatic no cervical or axillary lymphadenopathy Discharge Data Allergies Allergy/AdvReac Type Severity Reaction Status Date / Time amoxicillin Allergy Intermediate HIVES & N/V Verified 01/30/21 17:49 clavulanic acid Allergy Intermediate HIVES & N/V Verified 01/30/21 17:49 vancomycin Allergy Mild pruritus Verified 01/30/21 17:49 daptomycin AdvReac Severe rhabdomyoly Verified 02/09/21 18:12 sis sulfamethoxazole AdvReac Severe renal Verified 01/30/21 17:49 [From Bactrim] failure trimethoprim [From Bactrim] AdvReac Severe renal Verified 01/30/21 17:49 failure lisinopril AdvReac Intermediate NAUSEA/VOMI Verified 01/30/21 17:49 TING Consultations 01/30/21 17:41 ED Decision to Admit Stat 01/31/21 08:00 Consult Obstetrics Routine 01/31/21 20:28 Consult Infectious Diseases Routine 02/01/21 11:55 Consult Orthopedic Surgery Routine 02/02/21 14:44 Consult Infectious Diseases Routine Ordered Studies 01/30/21 17:08 US transvaginal Stat 01/30/21 17:09 US pelvic complete Stat 01/31/21 11:47 MR foot RT w/o con Routine 02/02/21 09:35 US venous doppler LE RT Routine Hospital Course (1) Non-traumatic rhabdomyolysis: Improved CK on the IVF with ~2000 this am. 02/10/2021 Daptomycin has been discontinued Cont holding statin. Continue IV fluid for now her CK level has improved a lot which is 764 as of 02/11/2021 Her liver function is also improving (2) Postmenopausal bleeding: Vaginal bleeding has now stopped. Trannsvaginal US shows thickened endometrium. ASSURANCE SENIOR MANAGER INSURANCE consulted; recommended OP evaluation for endometrial biopsy. She will make an appointment as an outpatient with S[facility]OL [facility] ATTENDANT (3) Diabetic foot infection: Right midfoot diabetic foot ulcer: Please see the picture for detailed view of the wound/ulcer Has this chronically. Follows with her vascular surgeon, Dr. Lomeli. Blood cultures negative thus far. Leukocytosis present as well as a secondary cellulitis that is new since admission per patient. Cellulitis is imporved today on current IV abx (Dapto/Merrem)-Dapto has been discontinued due to rhabdomyolysis Pain in her foot is present and managed with Tramadol. Pulses are present with doppler. MRI of the foot suggest extensive osteomyelitis superimposed upon a neuropathic arthropathy. Rapid progression of neuropathic arthropathy is considered less likely. Extensive infectious process is the diagnosis of exclusion. Per ortho and ID antibiotics are unlikely to get better with antibiotics. Orthopedics recommended to follow-up with her vascular surgeon at [place] plan for surgical intervention such as possible amputation.-She has an appointment with the Ortho on eighth of this month Change abx to Vanc/Merrem with dapto-induced rhabdo above-WITH H/O INFUSION REACTION, PLEASE RUN VANCOMYCIN AT 100MLS/HR Vancomycin 1500 mg daily and meropenem 1 g every 8 hourly to be continued until 16 March 2021 antibiotic prescriptions has been given to the home health nurse she will be going home this afternoon (4) Osteomyelitis of right foot: cont broad spectrum abx per plan above. (5) Peripheral arterial disease: Restarted Plavix and Eliquis 02/02, and some extra bleeding present, ASA held--Hgb dropped this am, blood thinners held Follow up with vascular surgery, Dr. Lomeli; appt 02/15. (6) Acute blood loss anemia: Likely a combination of response from recent blood loss, daily phlebotomy, anemic of chronic inflammation, and dilution in setting of IVF to treat rhabdomyolysis. Reports feeling tired today. Her hemoglobin is 6.3 on admission. Received 3 units of PRBCs. Patient has triple anticoagulation with Eliquis, aspirin and Plavix. Blood thinners held on admission, and then restarted 02/02. Drop in H/H as above. Held blood thinners again now. Outpatient vascular surgeon to restart as able in next week. Transfuse two additional units of blood today. Hemoglobin remains stable at more than 8 for the last 2 days discharge home this afternoon (7) Diabetes mellitus type 2, uncontrolled: around goal, cont current insulin regimen. (8) Diabetic ulcer of left great toe: cont plan as above. Cont local wound care (9) Charcot's joint of foot due to diabetes: chronic, ambulates with a cam boot at baseline. (10) Chronic kidney disease (CKD), stage III (moderate): creatinine around baseline. Creatinine remains stable (11) Hypertension: On metoprolol and diuretics, at goal. (12) DVT prophylaxis: SCDs/chemoprophylaxis held in setting of bleeding and acute blood loss anemia. Full Code Dispo-consider DC in am if CK continues to trend down. Home with home health Discharge home tomorrow Total Time Total Time Spent Total Time Spent (In Minutes): 40 minutes Discharge Plan Discharge Items Patient Disposition: Home - Home Health Services Reason For Visit: VAGINAL BLEEDING Discharge Diagnosis: post menopausal bleeding-resolved diabetic foot infection with ulceration and right foot osteomyelitis peripheral arterial disease acute blood loss anemia diabetic ulcer of left great toe charcot foot on left DMII-insulin dependent Condition on Discharge: Good Activity: Resume your previous activity Non-emergency contact: Primary Care Provider Call non-emergency contact if: you have any medication questions, your symptoms worsen, your pain is not controlled, your pain is worsening, your pain is unusual for you, your pain is concerning for you and you have a fever Follow-up/Referrals: [facility] [Other] - 03/21/21 11:00 am (Date & Time 03/21/2021 11:00 AM Provider Migel Carey MD Department Infectious Disease [facility] ) Kaila Freitas MD [Primary Care Provider] - 02/14/21 12:00 pm (Date & Time 02/14/2021 12:00 PM Provider Kaila Freitas MD Department Family Medicine [facility] ) Nate Amato MD [Surgeon] - (Date & Time 02/10/2021 10:00 AM Provider Nate Amato MD Department Nephrology, [facility] ) Aleksandra Lomeli MD [Outside Practitioners] - 02/15/21 8:30 am (Date & Time 02/15/2021 8:30 AM Provider Aleksandra Lomeli MD Department Vascular Surgery, [facility] ) Diet: Carb Consistent or DM2 Addtl Attending Provider Instructions: Please take precautions to avoid fall. Please take all medications as instructed on discharge list below. You are being given 6 weeks of intravenous antibiotics. Antibiotics [facility] where sent to the home health agency. Please continue taking these through the PICC line as directed by the infusion company and home health nursing. T While on the antibiotics, you will need a weekly CBC, CMP, with results sent to Dr. Geronimo Martinez at [facility] Infectious Disease at [facility] and Dr. Kaila Freitas (primary care). Pleas follow-up with your vascular surgeon as currently scheduled and discuss definitive management of your foot wound. At this visit, it will also be important to discuss restarting the blood thinners as appropriate. These were held because of severe acute blood loss anemia during this hospitalization resulting in 3 units of blood required for transfusion. A follow-up with your primary care physician is recommended in one week to ensure weekly labs are being drawn, the antibiotic treatment is going well for you without side effects, and to ensure you are feeling well since leaving the hospital. Please ensure close follow-up with [facility]ne[facility] for scheduling of an endometrial biopsy as discussed. Pending Studies at Discharge: No Stand-Alone Forms: My [facility] [employer] Medications and DC Order Prescriptions: New meropenem 1 gram recon soln 1 g IV Q8H Qty: 1 RF: 0 vancomycin in 0.9 % sodium chl 1.5 gram/250 mL solution 1.5 g IV Q24H Qty: 1 RF: 0 Lactinex 1 million cell tablet,chewable 1 tab PO BID Qty: 60 RF: 0 Continued Novolin R Regular U-100 Insuln 100 unit/mL Solution 70 unit subcut AMPM RF: 0 polyethylene glycol 3350 [Miralax] 17 gram Powder In Packet 17 g PO DAILY PRN (Reason: Constipation) RF: 0 metoprolol tartrate 25 mg tablet 25 mg PO BID RF: 0 cholecalciferol (vitamin D3) [Vitamin D3] 5,000 unit Tablet 5,000 units PO QAM RF: 0 magnesium oxide 500 mg Tablet 500 mg PO QAM RF: 0 Novolin N Flexpen 100 unit/mL (3 mL) Insulin Pen 0 unit subcut DIRECTED RF: 0 furosemide 40 mg tablet 80 mg PO UD RF: 0 ferrous sulfate 325 mg 325 mg PO DAILY RF: 0 tramadol 50 mg tablet 50 mg PO Q8H PRN (Reason: Pain) Qty: 30 RF: 0 acetaminophen 650 mg Tablet Extended Release 650 mg PO Q8H PRN (Reason: Pain) RF: 0 Discontinued rosuvastatin 40 mg Tablet 40 mg PO HS RF: 0 aspirin 81 mg Tablet,Delayed Release (Dr/Ec) 81 mg PO QAM RF: 0 clopidogrel 75 mg tablet 75 mg PO DAILY RF: 0 Eliquis 5 mg tablet 5 mg PO BID RF: 0 Discharge Orders: Discharge Order (Routine); Ordered 02/11/21 Ordered By: Tanner Soria/Other Patient Handouts: A1C, Managing Type 2 Diabetes, Special Foot Care for Diabetes Admission Data Admit Date/Time: 01/30/21 20:42 Attending Provider: Tanner Forrest Admit Provider: Sander Henriquez Primary Care Provider: Kaila Freitas Other Providers: Mikal Maza ; Miegl Carey ; Russ Martinez I. ; Terrell Ramirez II ; Sussy Castelan ; Surinder Ybarra ; Gerardo Coleman ; Baldemar Kumar Christina ; Shadia Allred ; Cali Hsu ; Yesica Oliveira ; Malachi Tavera ; Micah Mg ; Georgina Vera ; Lorena Sauceda V. ; Veronica Epps ; Nora Villalba ; Misty Encarnacion ; Nayana Judge ; Katia Hunter ; Gab Flores ; Kingston Gutierrez ; Tevin Rivera ; Brianna Salomon ; Nanda Galvez ; Ayde Mello ; Tasneem Dubose ; José Antonio Walton ; Delores Armendariz ; Fabián Chavarria ; Smiley Gutierrez ; Chaparro Martinez ; Benjamin Zuleta ; Sergei Dodd ; Sergei Holt ; Nasra Beavers ; [facility] ; Lorena Mcqueen Other Interventions: Discharge Summary Assessment (RN) Last Done: 02/11/21 11:10
== END 2021-02-11 12:38 | disposition home health service (06) | DRG 638 ==
LOC: ED 13:10 → SUATTDRO 20:42 → 2W 20:42 → 3E 02-04 13:25

== ENCOUNTER 2022-11-08 13:55 | Observation (INO) ==
--- NOTE | 2022-11-08 14:13 | ED Triage Note ---
Date of Service November 08, 2022 History of Present Illness This patient was briefly evaluated while in triage. An abbreviated physical exam was performed. This patient is a 62-year-old Female who presents to the ED referred by commutator tester for acute anemia and need for CT ab/pelvis. She reports history of hematoma near her kidney. She notes abdominal pain. Denies fever/chills, n/v, chest pain, SOB. Physical Exam Constitutional: alert and oriented x3. no acute distress. HEENT: normocephalic, atraumatic. normal conjunctiva. Respiratory: lungs are clear to auscultation without wheezes, rhonchi, or rales bilaterally. equal chest rise. normal respiratory effort, no accessory muscle use. Cardiovascular: normal heart sounds without murmur. regular rate and rhythm. GI: abdomen is soft, nontender. MSK: moves all 4 extremities spontaneously Peripheral vascular: extremities warm and well perfused Psych:appropriate mood and affect. Initial orders for labs and / or imaging were placed and patient was placed in the waiting area until a bed is available. Please see further documentation for the full ED course.
[2022-11-08 14:58] LABS: Basophils # (auto) 0.08 K/uL (0-0.2); Eosinophils # (auto) 0.15 K/uL (0-0.50); Eosinophils % (auto) 1.8 %; Hematocrit (blood only) 23.1 % (37.0-47.0); Hemoglobin 7.6 g/dl (12.0-16.0); Immature Granulocytes # (auto) 0.06 K/uL (0.01-0.20); Immature Granulocytes % (auto) 0.7 %; Lymphocytes # (auto) 1.58 K/uL (1.2-3.4); Lymphocytes % (auto) 19.1 %; Mean Corpuscular Hemoglobin 28.3 pg (25.0-34.0); Mean Corpuscular Hgb Conc 32.9 g/dL (32.0-36.0); Mean Corpuscular Volume 85.9 fL (80.0-100.0); Mean Platelet Volume 10.1 fL (9.4-12.4); Monocytes # (auto) 0.44 K/uL (0.11-0.59); Monocytes % (auto) 5.3 %; Neutrophils # (auto) 5.98 K/uL (1.40-6.50); Neutrophils % (auto) 72.1 %; Platelet Count 249 K/uL (130-400); RDW Coefficient of Variation 15.3 % (11.5-14.5); RDW Standard Deviation 47.1 fL (36.4-46.3); Red Blood Count 2.69 M/uL (4.20-5.40); White Blood Count 8.29 K/ul (4.8-10.8)
[2022-11-08 15:18] LABS: Alanine Aminotransferase 10 U/L (7-52); Albumin Level 3.4 gm/dl (3.4-5.0); Alkaline Phosphatase 77 U/L (34-104); Anion Gap 8 (3-11); Aspartate Aminotransferase 12 U/L (13-39); BUN Creatinine Ratio 8.6 (10-20); Bilirubin,Total 0.3 mg/dl (0.2-1.0); Blood Urea Nitrogen 22 mg/dl (6-23); Calcium 9.2 mg/dl (8.6-10.3); Carbon Dioxide 30 mmol/L (21-32); Chloride 101 mmol/L (98-107); Est GFR (African American) 22.2 ml/min; Est GFR (Non-African American) 19.1 ml/min; Globulin 3.5 gm/dl (2.5-4.0); Glucose 201 mg/dl (70-99(Fasting)); Lipase 26 U/L (11-82); Potassium 3.6 mmol/L (3.5-5.1); Sodium 139 mmol/L (136-145); Total Protein 6.9 gm/dl (6.0-8.3)
[2022-11-08 15:27] LABS: RBC Morphology Unremarkable
[2022-11-08] MEDS ORDERED: SODIUM CHLORIDE 0.9% 250 ML IV PRN ×2 (15:34→22:11)
--- NOTE | 2022-11-08 15:51 | Emergency Department Note ---
Impression & Plan Weakness, Anemia, Dizziness, Kidney hematoma ED Provider Note NAME: WENDI DAMON AGE: 62 SEX: F : 1960 ARRIVES VIA: Walk-In INFORMANT: [Patient] ED PROVIDER(S): [Albin Johnson MD] CHIEF COMPLAINT: Abnormal laboratory testing HISTORY OF PRESENT ILLNESS: The patient is a 62-year-old female presents to the ER at the advice of her free lance model for anemia. The patient has a known left renal hematoma and her hemoglobin today is about 2 points lower than it had been. There was concern for ongoing bleeding. The patient does complain of some left flank pain although this is not new. There has been no fever, cough or congestion. No shortness of breath. She has felt lightheaded with standing and she has felt weak and washed out. No blood in the urine, no blood in the stool. The patient was seen in the ED on the , less than a week ago. She was seen for some bleeding from her dialysis catheter. Her hemoglobin was low at that time, the value was felt most likely chronic. The patient did have dialysis yesterday through the dialysis catheter. PMHx/PSHx: See Below SOCIAL HISTORY: See Below. PHYSICAL EXAM: GENERAL: Patient is in no acute distress. HEENT: No acute trauma, normocephalic atraumatic, mucous membranes moist, no nasal congestion. NECK: No stridor, no adenopathy, no meningismus, trachea is midline. LUNGS: Clear to auscultation bilaterally, no wheeze, no rhonchi, breath sounds equal. HEART: 2/6 systolic murmur, regular rate and rhythm. ABDOMEN: Soft, nontender, bowel sounds positive, no peritonitis. EXTREMITIES: No cyanosis or edema. Right below the knee amputation noted. NEUROLOGIC: Oriented x 3, no acute motor or sensory deficits, no focal weakness. SKIN: No rash, no jaundice, no diaphoresis. Pale. DIFFERENTIAL DIAGNOSIS: Intra-abdominal bleeding, GI bleeding, expanding renal hematoma, coagulopathy, among others. EMERGENCY DEPARTMENT COURSE/PROCEDURES: Prior/Outside records reviewed: Recent ED notes. MEDICAL DECISION MAKING: There is no leukocytosis. The patient is anemic with a hemoglobin of 7.6. This is lower than her typical value but stable compared to the value from a few days ago. There was a normal platelet count. No coagulopathy. Creatinine was elevated consistent with her dialysis need. No electrolyte abnormality in need of emergent correction. No concerning liver enzyme elevation. No evidence for pancreatitis. Urinalysis showed some glucose and protein, some contamination was noted. No obvious infection. COVID test returned negative. Abdominal and pelvis CT shows the left renal hematoma, there was no evidence of rupture or leakage of blood into the abdomen or retroperitoneum. On exam, the patient was pale, she was resting comfortably. Patient was ordered for blood for transfusion. No blood though was given in the ED. I did speak with the patient, I spoke with case management, I do think a hospital stay is warranted. She needs a slow transfusion to improve her blood count. She needs very close observation and may be even dialysis tomorrow after the transfusion. The patient was in agreement with the hospital stay. The on-call hospitalist was consulted. DISPOSITION: Patient's presentation and findings warrant a hospital stay. Past Med/Surg History Medical History Acute blood loss anemia Anemia of chronic disease Charcot's arthropathy Charcot's joint of foot due to diabetes Chronic back pain Chronic constipation Chronic diastolic (congestive) heart failure Chronic diastolic CHF (congestive heart failure) Chronic kidney disease (CKD), stage III (moderate) monitoring. Follows with Nephrology Valentine Collins. Chronic kidney disease, stage 3a Chronic osteomyelitis Chronic venous insufficiency Clostridium difficile colitis history (~11/2016) -- treated no problems since. Diabetes mellitus type 2 with complications Diabetes mellitus type 2, uncontrolled Diabetic foot infection Diabetic foot ulcer associated with type 2 diabetes mellitus, with fat layer exposed Diabetic neuropathy Diabetic peripheral neuropathy associated with type 2 diabetes mellitus Diabetic ulcer of left great toe Diabetic ulcer of right foot associated with diabetes mellitus due to underlying condition, limited to breakdown of skin DVT prophylaxis Dyslipidemia GERD (gastroesophageal reflux disease) Hypertension Hypertension Morbid obesity BMI 45.7 Non-traumatic rhabdomyolysis (02/2021) On anticoagulant therapy plavix/eliquis daily Osteoarthritis Osteomyelitis of right foot PAD (peripheral artery disease) S/P right lower extremity angiogram, mechanical thrombectomy of pre-existing superficial femoral artery stent belen Espinaln Omni catheter, balloon angioplasty of the superficial femoral artery stent using 5 X 200 mm [place] balloon, balloon angioplasty of the superficial femoral artery 6 X 250 mm IN.PACT drug coated balloon, stent angioplasty of the superficial femoral artery using 5 X 150 mm INOVA bare metal stent, and debridement of the right lateral foot on 11/14/[address] Lomeli. S/P bilateral SFA stenting Postmenopausal bleeding Proteinuria Sleep apnea no cpap Stage 3b chronic kidney disease UTI (urinary tract infection) Vitamin D deficiency Surgical History H/O vascular surgery (01/2020) LT SFA atherectomy, MARSHA w/ supera stenting History of bilateral cataract extraction History of cholecystectomy History of esophagogastroduodenoscopy (EGD) History of lumpectomy of right breast benign History of tooth extraction History of vascular surgery (04/20/22) L SFA Angio Extremity Unilateral Fem Pop Balloon Atherectomy S/P angioplasty (06/2019) LT SFA angioplastly with MARSHA S/P angioplasty (10/2019) RT SFA atherectomy/angioplasty w/ MARSHA S/P epidural steroid injection S/P femoral-popliteal bypass surgery S/P vascular surgery (11/2020) R fem-pop [id number] w/ stent and angioplasty Status post amputation of toe of right foot (11/14/20) amputation metatarsal w/ toe, R 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) Status post tonsillectomy Status post tubal ligation Family History Mother Rheumatoid arthritis Father Emphysema of lung Peripheral artery disease Aunt Breast cancer MOMS SIDE Colorectal cancer MOMS SIDE Myocardial infarction MOMS SIDE Brother Prostate cancer Sister COPD (chronic obstructive pulmonary disease) Other No family history of adverse response to anesthesia Denies family history of Ovarian cancer CAD (coronary atherosclerotic disease) Social History Smoking Status: Never smoker Tobacco Type: Cigarettes packs per day: 2; Second Hand Exposure: No; Do You Dip or Chew Tobacco: No; Hx Alcohol Use: No Hx Substance Use: No Preferred Language: Azeri Communication Ability: Effective Visual Impairment: No Limitations Hearing Ability: Normal Hospital Cleaning Specialist Required: No Beliefs That Will Affect Care: None marital status: Current Living Situation: Spouse Current Living Situation Comment: lives with and son current occupational status: disabled How many Children do You have: 1 other: previous worked at [employer] Feels Safe at Home: Yes Childhood Exposure to Second-Hand Smoke: Yes (father was a heavy smoker ) Diet: regular caffeine: No during the past year weight has: remained stable Dental Care, Regularly: No Physical Activity Frequency: Does not Exercise Seatbelt Use: always Sunscreen Use: No Assistive Devices: Denture - Upper, Denture - Lower, Glasses and Wheelchair Allergies Allergies Allergy/AdvReac Type Severity Reaction Status Date / Time daptomycin Allergy Severe rhabdomyoly Verified 11/08/22 16:57 sis sulfamethoxazole Allergy Severe renal Verified 11/08/22 16:57 [From Bactrim] failure trimethoprim [From Bactrim] Allergy Severe renal Verified 11/08/22 16:57 failure amoxicillin Allergy Intermediate HIVES & N/V Verified 11/08/22 16:57 clavulanic acid Allergy Intermediate HIVES & N/V Verified 11/08/22 16:57 vancomycin Allergy Mild pruritus Verified 11/08/22 16:57 lisinopril AdvReac Intermediate NAUSEA/VOMI Verified 11/08/22 16:57 TING omeprazole AdvReac Intermediate Nausea Verified 11/08/22 16:57 Home Meds Home Medications Medication Instructions Recorded Confirmed cholecalciferol (vitamin D3) 125 5,000 units PO QAM 09/16/18 11/08/22 mcg (5,000 unit) tablet (Vitamin D3) metoprolol tartrate 25 mg tablet 25 mg PO BID 09/16/18 11/08/22 acetaminophen 650 mg 650 mg PO Q8H PRN Pain 10/07/20 11/08/22 tablet,extended release docusate sodium 100 mg capsule 100 mg PO DAILY PRN Constipation 11/10/21 11/08/22 (Stool Softener) loperamide 2 mg capsule (Imodium 2 mg PO Q6H PRN Diarrhea 12/13/21 11/08/22 A-D) polyethylene glycol 3350 17 17 g PO DAILY PRN Constipation 12/13/21 11/08/22 gram/dose oral powder (Miralax) diphenhydramine HCl 25 mg tablet 25 mg PO HS 01/12/22 11/08/22 (Sleep Aid (diphenhydramine)) furosemide 40 mg tablet 40 mg PO QAM 09/24/22 11/08/22 Previous Rx's Medication Instructions Recorded triamcinolone acetonide 0.5 % 1 applic topical BID PRN skin 11/10/21 topical cream irritation #60 grams Lactobacillus acidoph-L.bulgaricus 1 tab PO BID #180 tabs 11/20/21 1 million cell tablet (Floranex) Prosthetic Socket replacement #1 ea 08/13/22 gabapentin 100 mg capsule 100 mg PO TID 90 days #270 caps 08/28/22 omeprazole 20 mg capsule,delayed 20 mg PO DAILY 90 days #90 caps 08/28/22 release rosuvastatin 40 mg tablet 40 mg PO QAM #90 tabs 08/28/22 trazodone 50 mg tablet 25 mg PO HS #30 tabs 08/29/22 amlodipine 10 mg tablet 5 mg PO QAM #90 tabs 10/31/22 tramadol 50 mg tablet 50 mg PO DAILY PRN pain #7 tabs 10/31/22 Results & Data (ED) Vital Signs Vital Signs - 24 hr 11/08/22 14:10 11/08/22 16:34 11/08/22 16:37 Temperature 36.6 C Temperature Source Temporal Artery Scan Pulse Rate 61 61 Pulse Rate [Apical] 61 Respiratory Rate 18 19 Respiratory Effort / Characteristics Non-Labored Spontaneous Respiratory Depth Normal Respiratory Pattern Regular Blood Pressure 153/67 H Blood Pressure [Left Arm] 139/58 L Blood Pressure Mean 95 Blood Pressure Mean [Left Arm] 85 Pulse Oximetry 100 98 Oxygen Delivery Method Room Air Room Air Sepsis Recent Fever Within 48 Hours No Sepsis New/Unexplained Change in Mental Status No Sepsis Action Taken by Nursing No Action Required 11/08/22 17:00 Temperature Temperature Source Pulse Rate Pulse Rate [Apical] 61 Respiratory Rate 24 Respiratory Effort / Characteristics Non-Labored Spontaneous Respiratory Depth Normal Respiratory Pattern Blood Pressure Blood Pressure [Left Arm] 132/109 H Blood Pressure Mean Blood Pressure Mean [Left Arm] 116 Pulse Oximetry 100 Oxygen Delivery Method Sepsis Recent Fever Within 48 Hours Sepsis New/Unexplained Change in Mental Status Sepsis Action Taken by [facility] Medications Current Medication List: was personally reviewed by me Laboratory Data Attestation: I reviewed the patient's lab results. 11/08/22 14:35 11/08/22 14:35 Lab Results 11/08/22 11/08/22 11/08/22 Range/Units 14:35 14:35 15:41 WBC 8.29 (4.8-10.8) K/ul RBC 2.69 L (4.20-5.40) M/uL Hgb 7.6 L (12.0-16.0) g/dl Hct 23.1 L (37.0-47.0) % MCV 85.9 (80.0-100.0) fL MCH 28.3 (25.0-34.0) pg MCHC 32.9 (32.0-36.0) g/dL RDW Std Deviation 47.1 H (36.4-46.3) fL RDW Coeff of Adelina 15.3 H (11.5-14.5) % Plt Count 249 (130-400) K/uL MPV 10.1 (9.4-12.4) fL Immature Gran % (Auto) 0.7 % Neut % (Auto) 72.1 % Lymph % (Auto) 19.1 % Lucas % (Auto) 5.3 % Eos % (Auto) 1.8 % Baso % (Auto) 1.0 % Neut # (Auto) 5.98 (1.40-6.50) K/uL Lymph # (Auto) 1.58 (1.2-3.4) K/uL Lucas # (Auto) 0.44 (0.11-0.59) K/uL Eos # (Auto) 0.15 (0-0.50) K/uL Baso # (Auto) 0.08 (0-0.2) K/uL Immature Gran # (Auto) 0.06 (0.01-0.20) K/uL RBC Morphology Unremarkable PT (9.0-12.0) Seconds INR (0.9-1.1) APTT (21.0-31.0) Seconds PTT Ratio Sodium 139 (136-145) mmol/L Potassium 3.6 (3.5-5.1) mmol/L Chloride 101 (98-107) mmol/L Carbon Dioxide 30 (21-32) mmol/L Anion Gap 8 (3-11) BUN 22 (6-23) mg/dl Creatinine 2.57 H (0.6-1.2) mg/dl Est Cr Clr Drug Dosing Not Reportable Est GFR ( Amer) 22.2 ml/min Est GFR (Non-Af Amer) 19.1 ml/min BUN/Creatinine Ratio 8.6 L (10-20) Glucose 201 H (70-99(Fasting)) mg/dl Calcium 9.2 (8.6-10.3) mg/dl Total Bilirubin 0.3 (0.2-1.0) mg/dl AST 12 L (13-39) U/L ALT 10 (7-52) U/L Alkaline Phosphatase 77 (34-104) U/L Total Protein 6.9 (6.0-8.3) gm/dl Albumin 3.4 (3.4-5.0) gm/dl Globulin 3.5 (2.5-4.0) gm/dl Albumin/Globulin Ratio 1.0 (0.9-2) Lipase 26 (11-82) U/L Urine Color Urine Appearance (Clear) Urine pH (4.5-7.5) Ur Specific [place] (1.000-1.030) Urine Protein (Negative) Urine Glucose (UA) (Negative) Urine Ketones (Negative) Urine Blood (Negative) Urine Nitrite (Negative) Urine Bilirubin (Negative) Urine Urobilinogen (Negative) Ur Leukocyte Esterase (Negative) Urine WBC (Auto) (0-5) /hpf Urine RBC (Auto) (0-4) /hpf U Hyaline Cast (Auto) (0-5) /lpf U Epithel Cells (Auto) (0-5) /lpf Urine Bacteria (Auto) (Negative) Urine Crystals (None Prsent) Urine Yeast (None Prsent) SARS-CoV-2, RNA, NAAT (NEGATIVE) Blood Type O Negative Antibody Screen NEGATIVE Crossmatch See Detail 11/08/22 11/08/22 11/08/22 Range/Units 15:41 16:23 19:20 WBC (4.8-10.8) K/ul RBC (4.20-5.40) M/uL Hgb (12.0-16.0) g/dl Hct (37.0-47.0) % MCV (80.0-100.0) fL MCH (25.0-34.0) pg MCHC (32.0-36.0) g/dL RDW Std Deviation (36.4-46.3) fL RDW Coeff of Adelina (11.5-14.5) % Plt Count (130-400) K/uL MPV (9.4-12.4) fL Immature Gran % (Auto) % Neut % (Auto) % Lymph % (Auto) % Lucas % (Auto) % Eos % (Auto) % Baso % (Auto) % Neut # (Auto) (1.40-6.50) K/uL Lymph # (Auto) (1.2-3.4) K/uL Lucas # (Auto) (0.11-0.59) K/uL Eos # (Auto) (0-0.50) K/uL Baso # (Auto) (0-0.2) K/uL Immature Gran # (Auto) (0.01-0.20) K/uL RBC Morphology PT 11.4 (9.0-12.0) Seconds INR 1.0 (0.9-1.1) APTT 28.7 (21.0-31.0) Seconds PTT Ratio 1.0 Sodium (136-145) mmol/L Potassium (3.5-5.1) mmol/L Chloride (98-107) mmol/L Carbon Dioxide (21-32) mmol/L Anion Gap (3-11) BUN (6-23) mg/dl Creatinine (0.6-1.2) mg/dl Est Cr Clr Drug Dosing Est GFR ( Amer) ml/min Est GFR (Non-Af Amer) ml/min BUN/Creatinine Ratio (10-20) Glucose (70-99(Fasting)) mg/dl Calcium (8.6-10.3) mg/dl Total Bilirubin (0.2-1.0) mg/dl AST (13-39) U/L ALT (7-52) U/L Alkaline Phosphatase (34-104) U/L Total Protein (6.0-8.3) gm/dl Albumin (3.4-5.0) gm/dl Globulin (2.5-4.0) gm/dl Albumin/Globulin Ratio (0.9-2) Lipase (11-82) U/L Urine Color Yellow Urine Appearance Cloudy A (Clear) Urine pH 8.5 H (4.5-7.5) Ur Specific [place] 1.022 (1.000-1.030) Urine Protein 3+ H (Negative) Urine Glucose (UA) 3+ H (Negative) Urine Ketones Negative (Negative) Urine Blood Negative (Negative) Urine Nitrite Negative (Negative) Urine Bilirubin Negative (Negative) Urine Urobilinogen Negative (Negative) Ur Leukocyte Esterase Negative (Negative) Urine WBC (Auto) 5-10 H (0-5) /hpf Urine RBC (Auto) 0-4 (0-4) /hpf U Hyaline Cast (Auto) 1-5 (0-5) /lpf U Epithel Cells (Auto) >30 H (0-5) /lpf Urine Bacteria (Auto) Negative (Negative) Urine Crystals [place] (None Prsent) Urine Yeast Budding A (None Prsent) SARS-CoV-2, RNA, NAAT NEGATIVE (NEGATIVE) Blood Type Antibody Screen Crossmatch Imaging Data Radiologist's Impression: Abdomen/Pelvis CT 11/08/22 15:[address] WITHOUT CONTRAST CT DOSE: 1472.09 mGy.cm HISTORY: anemia, renal hematoma by report TECHNIQUE: Multiaxial CT images of the abdomen and pelvis were performed without contrast. A dose lowering technique was utilized adhering to the principles of ALARA. COMPARISON STUDY: Abdomen and pelvis CT 10/21/2020.. FINDINGS: There is a punctate calcified granuloma within the left lower lobe. Stable 3 mm nodule within the lingula on image 10. This is likely benign. No pneumoperitoneum. No pneumatosis. No acute fractures identified. Mitral annulus calcifications are noted. Small fat-containing left periumbilical hernia, uncha nged. Bilateral superficial femoral artery stents are again noted. Cholecystectomy. The unenhanced liver, spleen, adrenal glands, and pancreas unremarkable. Bilateral renal vascular calcifications are again noted. No definite renal calculi. No hydronephrosis. There is moderate bilateral perinephric edema. Heterogeneous appearance to the majority of the left kidney which favors a subacute subcapsular hematoma. This is difficult to assess due to the subacute appearance and lack of intravenous contrast. An intraparenchymal hematoma could also have a similar appearance but is considered less likely. This apparent subcapsular hematoma measures up to 2.7 cm in thickness and appears to demonstrate compression of the normal left renal parenchyma. There is a punctate foci of gas within the suspected left renal subcapsular hematoma on image 155. This is indeterminate and could be due to prior intervention. Secondary infection would also be in the differential diagnosis. Mild urothelial thickening within the left renal collecting system. No retroperitoneal extension of hemorrhage identified. No retroperitoneal lymphadenopathy. Calcified plaque within the normal caliber abdominal aorta. The bladder, uterus, and ovaries are unremarkable. No pelvic free fluid. There is mild pelvic floor collapse. A few colonic diverticula. No evidence for acute diverticulitis. [id number] fecal retention is noted. No bowel wall thickening or obstruction. Normal appendix. IMPRESSION: 1. Heterogeneous appearance to the majority of the left kidney which favors a subacute subcapsular hematoma. This is difficult to assess due to the subacute appearance and lack of intravenous contrast. An intraparenchymal hematoma could also have a similar appearance but is considered less likely. This apparent subcapsular hematoma measures up to 2.7 cm in thickness and appears to demonstrate compression of the normal left renal parenchyma. 2. There is a punctate foci of gas within the suspected left renal subcapsular hematoma. This is indeterminate and could be due to prior intervention. Secondary infection would also be in the differential diagnosis. 3. No retroperitoneal extension of hemorrhage identified. 4. Additional findings as described above. ACT 112: Negative or not required by law. Electronically signed by: Domo Morales M.D. 11/08/2022 4:26 PM Discharge Plan Visit Data Chief Complaint: Abnormal Labs/Diagnostic Testing Stated Complaint: HEMOGLOBIN LOW ED Provider: Albin Johnson Discharge Problem: Weakness, Anemia, Dizziness, Kidney hematoma Patient Disposition: Admitted As Inpatient Condition: Good Forms Stand Alone Forms: My Sols Prescriptions Prescriptions: No Action Lactobacillus acidoph-L.bulgar [Floranex] 1 million cell tablet 1 tab PO BID Qty: 180 1RF Rx Instructions: ON HOLD (DME) Prosthetic Socket replacement See Rx Instructions .Route .MEDSUPPLY Qty: 1 0RF Rx Instructions: As directed. Patient states she is being fitted for a new prosthetic. amlodipine 10 mg tablet 5 mg PO QAM Qty: 90 1RF tramadol 50 mg tablet 50 mg PO DAILY PRN (Reason: pain) Qty: 7 0RF polyethylene glycol 3350 [Miralax] 17 gram/dose powder 17 g PO DAILY PRN (Reason: Constipation) loperamide [Imodium A-D] 2 mg capsule 2 mg PO Q6H PRN (Reason: Diarrhea) docusate sodium [Stool Softener] 100 mg capsule 100 mg PO DAILY PRN (Reason: Constipation) triamcinolone acetonide 0.5 % cream 1 applic topical BID PRN (Reason: skin irritation) Qty: 60 1RF Rx Instructions: apply to chest gabapentin 100 mg capsule 100 mg PO TID 90 Days Qty: 270 1RF omeprazole 20 mg capsule,delayed release(DR/EC) 20 mg PO DAILY 90 Days Qty: 90 1RF rosuvastatin 40 mg tablet 40 mg PO QAM Qty: 90 1RF trazodone 50 mg tablet 25 mg PO HS Qty: 30 2RF metoprolol tartrate 25 mg tablet 25 mg PO BID cholecalciferol (vitamin D3) [Vitamin D3] 5,000 unit Tablet 5,000 units PO QAM Rx Instructions: ON HOLD furosemide 40 mg tablet 40 mg PO QAM acetaminophen 650 mg Tablet Extended Release 650 mg PO Q8H PRN (Reason: Pain) diphenhydramine HCl [Sleep Aid (diphenhydramine)] 25 mg Tablet 25 mg PO HS Referrals Referrals: Andie Rodrigues DO [Primary Care Provider] -
--- NOTE | 2022-11-08 16:28 | CT Scan Report ---
ABDOMEN AND PELVIS CT WITHOUT CONTRAST CT DOSE: 1472.09 mGy.cm HISTORY: anemia, renal hematoma by report TECHNIQUE: Multiaxial CT images of the abdomen and pelvis were performed without contrast. A dose lo wering technique was utilized adhering to the principles of ALARA. COMPARISON STUDY: Abdomen and pelvis CT 10/21/2020.. FINDINGS: There is a punctate calcified granuloma within the left lower lobe. Stable 3 mm nodule with in the lingula on image 10. This is likely benign. No pneumoperitoneum. No pneumatosis. No acute frac tures identified. Mitral annulus calcifications are noted. Small fat-containing left periumbilical he rnia, unchanged. Bilateral superficial femoral artery stents are again noted. Cholecystectomy. The un enhanced liver, spleen, adrenal glands, and pancreas unremarkable. Bilateral renal vascular calcifica tions are again noted. No definite renal calculi. No hydronephrosis. There is moderate bilateral darryl nephric edema. Heterogeneous appearance to the majority of the left kidney which favors a subacute elder bcapsular hematoma. This is difficult to assess due to the subacute appearance and lack of intravenou s contrast. An intraparenchymal hematoma could also have a similar appearance but is considered less likely. This apparent subcapsular hematoma measures up to 2.7 cm in thickness and appears to demonstr ate compression of the normal left renal parenchyma. There is a punctate foci of gas within the suspe cted left renal subcapsular hematoma on image 155. This is indeterminate and could be due to prior in tervention. Secondary infection would also be in the differential diagnosis. Mild urothelial thickeni ng within the left renal collecting system. No retroperitoneal extension of hemorrhage identified. No retroperitoneal lymphadenopathy. Calcified plaque within the normal caliber abdominal aorta. The maricruz dder, uterus, and ovaries are unremarkable. No pelvic free fluid. There is mild pelvic floor collapse . A few colonic diverticula. No evidence for acute diverticulitis. [id number] fecal retention i s noted. No bowel wall thickening or obstruction. Normal appendix. IMPRESSION: 1. Heterogeneous appearance to the majority of the left kidney which favors a subacute subcapsular he matoma. This is difficult to assess due to the subacute appearance and lack of intravenous contrast. An intraparenchymal hematoma could also have a similar appearance but is considered less likely. This apparent subcapsular hematoma measures up to 2.7 cm in thickness and appears to demonstrate compress ion of the normal left renal parenchyma. 2. There is a punctate foci of gas within the suspected left renal subcapsular hematoma. This is inde terminate and could be due to prior intervention. Secondary infection would also be in the differenti al diagnosis. 3. No retroperitoneal extension of hemorrhage identified. 4. Additional findings as described above. ACT 112: Negative or not required by law. Electronically signed by: Domo Morales M.D. 11/08/2022 4:26 PM
[2022-11-08 16:45] LABS: Partial Thromboplastin Time 28.7 Seconds (21.0-31.0); Prothrombin Time 11.4 Seconds (9.0-12.0)
[2022-11-08 17:10] LABS: Appearance Urine Cloudy (Clear); Bacteria Urine Automated Negative (Negative); Bilirubin Urine Negative (Negative); Blood Urine Negative (Negative); Color Urine Yellow; Epithelial Cell Urine Auto >30 /lpf (0-5); Glucose Urine UA 3+ (Negative); Ketones Urine Negative (Negative); Leukocyte Esterase Urine Negative (Negative); Nitrite Urine Negative (Negative); Specific Gravity Urine 1.022 (1.000-1.030); Urobilinogen Urine Negative (Negative); pH Urine 8.5 (4.5-7.5)
[2022-11-08 17:13] LABS: Protein Urine 3+ (Negative)
[2022-11-08 17:26] LABS: RBC Urine Automated 0-4 /hpf (0-4)
--- NOTE | 2022-11-08 19:09 | History & Physical Report ---
Date of Service November 08, 2022 Assessment & Plan (1) Anemia: Plan: Anemia s/p left renal biopsy 2 weeks ago - given dizziness and right flank pain discussed with Dr Mei and recommended 1 unit packed RBC transfusion and observation in hospital overnight. Repeat CBC in AM (2) Renal hematoma, left: Plan: Measured 2.7cm in maximal depth. Noted to be 2cm on multiple CTs at [facility] (last one on October 22). Doubtful new acute bleed despite apparent increase in size. [facility] planning on pushing images for direct comparison. 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 The patient had a biopsy of her left kidney 2 weeks ago at [facility]. This was complicated by a hematoma at this site and subsequently she had to be started on dialysis. Due to outpatient hemoglobin drop from 8.1 -> 7.1 she was sent to the ER for further evaluation due to concern for a rebleed. The patient reports left flank pain but this has been consistent since the biopsy and not recently changed. She reports some dizziness on standing today but feels this is due to not eating anything today. No shortness of breath or chest pain. Allergies Allergy/AdvReac Type Severity Reaction Status Date / Time daptomycin Allergy Severe rhabdomyoly Verified 11/08/22 16:57 sis sulfamethoxazole Allergy Severe renal Verified 11/08/22 16:57 [From Bactrim] failure trimethoprim [From Bactrim] Allergy Severe renal Verified 11/08/22 16:57 failure amoxicillin Allergy Intermediate HIVES & N/V Verified 11/08/22 16:57 clavulanic acid Allergy Intermediate HIVES & N/V Verified 11/08/22 16:57 vancomycin Allergy Mild pruritus Verified 11/08/22 16:57 lisinopril AdvReac Intermediate NAUSEA/VOMI Verified 11/08/22 16:57 TING omeprazole AdvReac Intermediate Nausea Verified 11/08/22 16:57 Home Medications Medication Instructions Recorded Confirmed Type cholecalciferol (vitamin D3) 125 5,000 units PO QAM 09/16/18 11/08/22 History mcg (5,000 unit) tablet (Vitamin D3) metoprolol tartrate 25 mg tablet 25 mg PO BID 09/16/18 11/08/22 History acetaminophen 650 mg 650 mg PO Q8H PRN Pain 10/07/20 11/08/22 History tablet,extended release docusate sodium 100 mg capsule 100 mg PO DAILY PRN Constipation 11/10/21 3 History (Stool Softener) triamcinolone acetonide 0.5 % 1 applic topical BID PRN skin 11/10/21 11/08/22 Rx topical cream irritation #60 grams Lactobacillus acidoph-L.bulgaricus 1 tab PO BID #180 tabs 11/20/21 11/08/22 Rx 1 million cell tablet (Floranex) loperamide 2 mg capsule (Imodium 2 mg PO Q6H PRN Diarrhea 12/13/21 11/08/22 History A-D) polyethylene glycol 3350 17 17 g PO DAILY PRN Constipation 12/13/21 11/08/22 History gram/dose oral powder (Miralax) diphenhydramine HCl 25 mg tablet 25 mg PO HS 01/12/22 11/08/22 History (Sleep Aid (diphenhydramine)) Prosthetic Socket replacement #1 ea 08/13/22 11/08/22 Rx gabapentin 100 mg capsule 100 mg PO TID 90 days #270 caps 08/28/22 11/08/22 Rx omeprazole 20 mg capsule,delayed 20 mg PO DAILY 90 days #90 caps 08/28/22 11/08/22 Rx release rosuvastatin 40 mg tablet 40 mg PO QAM #90 tabs 08/28/22 11/08/22 Rx trazodone 50 mg tablet 25 mg PO HS #30 tabs 08/29/22 11/08/22 Rx furosemide 40 mg tablet 40 mg PO QAM 09/24/22 11/08/22 History amlodipine 10 mg tablet 5 mg PO QAM #90 tabs 10/31/22 11/08/22 Rx tramadol 50 mg tablet 50 mg PO DAILY PRN pain #7 tabs 10/31/22 11/08/22 Rx Past Med/Surg History Medical History Acute blood loss anemia Anemia of chronic disease Charcot's arthropathy Charcot's joint of foot due to diabetes Chronic back pain Chronic constipation Chronic diastolic (congestive) heart failure Chronic diastolic CHF (congestive heart failure) Chronic kidney disease (CKD), stage III (moderate) monitoring. Follows with Nephrology [facility]. Chronic kidney disease, stage 3a Chronic osteomyelitis Chronic venous insufficiency Clostridium difficile colitis history (~11/2016) -- treated no problems since. Diabetes mellitus type 2 with complications Diabetes mellitus type 2, uncontrolled Diabetic foot infection Diabetic foot ulcer associated with type 2 diabetes mellitus, with fat layer exposed Diabetic neuropathy Diabetic peripheral neuropathy associated with type 2 diabetes mellitus Diabetic ulcer of left great toe Diabetic ulcer of right foot associated with diabetes mellitus due to underlying condition, limited to breakdown of skin DVT prophylaxis Dyslipidemia GERD (gastroesophageal reflux disease) Hypertension Hypertension Morbid obesity BMI 45.7 Non-traumatic rhabdomyolysis (02/2021) On anticoagulant therapy plavix/eliquis daily Osteoarthritis Osteomyelitis of right foot PAD (peripheral artery disease) S/P right lower extremity angiogram, mechanical thrombectomy of pre-existing superficial femoral artery stent usinh Anjojet [place] Omni catheter, balloon angioplasty of the superficial femoral artery stent using 5 X 200 mm Hathaway balloon, balloon angioplasty of the superficial femoral artery 6 X 250 mm IN.PACT drug coated balloon, stent angioplasty of the superficial femoral artery using 5 X 150 mm INOVA bare metal stent, and debridement of the right lateral foot on 11/14/[address] Lomeli. S/P bilateral SFA stenting Postmenopausal bleeding Proteinuria Sleep apnea no cpap Stage 3b chronic kidney disease UTI (urinary tract infection) Vitamin D deficiency Surgical History H/O vascular surgery (01/2020) LT SFA atherectomy, MARSHA w/ supera stenting History of bilateral cataract extraction History of cholecystectomy History of esophagogastroduodenoscopy (EGD) History of lumpectomy of right breast benign History of tooth extraction History of vascular surgery (04/20/22) L SFA Angio Extremity Unilateral Fem Pop Balloon Atherectomy S/P angioplasty (06/2019) LT SFA angioplastly with MARSHA S/P angioplasty (10/2019) RT SFA atherectomy/angioplasty w/ MARSHA S/P epidural steroid injection S/P femoral-popliteal bypass surgery S/P vascular surgery (11/2020) R fem-pop [id number] w/ stent and angioplasty Status post amputation of toe of right foot (11/14/20) amputation metatarsal w/ toe, R 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) Status post tonsillectomy Status post tubal ligation Family History Mother Rheumatoid arthritis Father Emphysema of lung Peripheral artery disease Aunt Breast cancer MOMS SIDE Colorectal cancer MOMS SIDE Myocardial infarction MOMS SIDE Brother Prostate cancer Sister COPD (chronic obstructive pulmonary disease) Other No family history of adverse response to anesthesia Denies family history of Ovarian cancer CAD (coronary atherosclerotic disease) Social History Smoking Status: Never smoker Tobacco Type: Cigarettes packs per day: 2; Second Hand Exposure: No; Do You Dip or Chew Tobacco: No; Tobacco Cessation Education Requested by Patient: No Hx Alcohol Use: No Hx Substance Use: No Preferred Language: Guatemalan Communication Ability: Effective Visual Impairment: No Limitations Hearing Ability: Normal Stitcher Hand Required: No Beliefs That Will Affect Care: None marital status: Current Living Situation: Family Current Living Situation Comment: lives with and son current occupational status: disabled How many Children do You have: 1 Other Information That Helps Us Care for You: No other: previous worked at [employer] Feels Safe at Home: Yes Safety Concerns: Feels Safe At This Time Childhood Exposure to Second-Hand Smoke: Yes (father was a heavy smoker ) Diet: regular caffeine: No during the past year weight has: remained stable Dental Care, Regularly: No Physical Activity Frequency: Does not Exercise Seatbelt Use: always Sunscreen Use: No Assistive Devices: Cane, Denture - Upper, Denture - Lower, Glasses, Prosthesis and Wheelchair Review of Systems Review of Systems: All systems reviewed & are unremarkable except as noted in HPI & below Physical Exam Constitutional: WD/WN, vitals as above Respiratory: normal respiratory effort, lungs clear to auscultation Cardiovascular: Rate/Rhythm: regular rate and regular rhythm Heart Sounds: no murmur Extremities: normal capillary refill and + pedal edema; no calf tenderness Gastrointestinal (Abdomen): normal bowel sounds, soft, nontender, no hepatosplenomegaly Skin: no rashes, warm and dry Neurologic: moves all extremities and awake; not confused Genitourinary: + CVA tenderness (left) Results & Data Results & Data Vital Signs (Past 12 Hours) Vital Signs Temp Pulse Pulse Resp BP BP Pulse Ox 11/08/22 17:00 61 24 132/109 H 100 11/08/22 16:37 61 11/08/22 16:34 61 19 139/58 L 98 11/08/22 14:10 36.6 C 61 18 153/67 H 100 O2 Del Method 11/08/22 17:00 11/08/22 16:37 11/08/22 16:34 Room Air 11/08/22 14:10 Room Air Laboratory Results Abnormal lab results 11/08/22 11/08/22 11/08/22 Range/Units 14:35 14:35 15:41 RBC 2.69 L (4.20-5.40) M/uL Hgb 7.6 L (12.0-16.0) g/dl Hct 23.1 L (37.0-47.0) % RDW Std Deviation 47.1 H (36.4-46.3) fL RDW Coeff of Adelina 15.3 H (11.5-14.5) % Creatinine 2.57 H (0.6-1.2) mg/dl BUN/Creatinine Ratio 8.6 L (10-20) Glucose 201 H (70-99(Fasting)) mg/dl AST 12 L (13-39) U/L Urine Appearance (Clear) Urine pH (4.5-7.5) Urine Protein (Negative) Urine Glucose (UA) (Negative) Urine WBC (Auto) (0-5) /hpf U Epithel Cells (Auto) (0-5) /lpf Urine Yeast (None Prsent) Crossmatch See Detail 11/08/22 Range/Units 16:23 RBC (4.20-5.40) M/uL Hgb (12.0-16.0) g/dl Hct (37.0-47.0) % RDW Std Deviation (36.4-46.3) fL RDW Coeff of Adelina (11.5-14.5) % Creatinine (0.6-1.2) mg/dl BUN/Creatinine Ratio (10-20) Glucose (70-99(Fasting)) mg/dl AST (13-39) U/L Urine Appearance Cloudy A (Clear) Urine pH 8.5 H (4.5-7.5) Urine Protein 3+ H (Negative) Urine Glucose (UA) 3+ H (Negative) Urine WBC (Auto) 5-10 H (0-5) /hpf U Epithel Cells (Auto) >30 H (0-5) /lpf Urine Yeast Budding A (None Prsent) Crossmatch Diagnostic Findings ABDOMEN AND PELVIS CT WITHOUT CONTRAST CT DOSE: 1472.09 mGy.cm HISTORY: anemia, renal hematoma by report TECHNIQUE: Multiaxial CT images of the abdomen and pelvis were performed without contrast. A dose lowering technique was utilized adhering to the principles of ALARA. COMPARISON STUDY: Abdomen and pelvis CT 10/21/2020.. FINDINGS: There is a punctate calcified granuloma within the left lower lobe. Stable 3 mm nodule within the lingula on image 10. This is likely benign. No pneumoperitoneum. No pneumatosis. No acute fractures identified. Mitral annulus calcifications are noted. Small fat-containing left periumbilical hernia, unchanged. Bilateral superficial femoral artery stents are again noted. Cholecystectomy. The unenhanced liver, spleen, adrenal glands, and pancreas unremarkable. Bilateral renal vascular calcifications are again noted. No definite renal calculi. No hydronephrosis. There is moderate bilateral perinephric edema. Heterogeneous appearance to the majority of the left kidney which favors a subacute subcapsular hematoma. This is difficult to assess due to the subacute appearance and lack of intravenous contrast. An intraparenchymal hematoma could also have a similar appearance but is considered less likely. This apparent subcapsular hematoma measures up to 2.7 cm in thickness and appears to demonstrate compression of the normal left renal parenchyma. There is a punctate foci of gas within the suspected left renal subcapsular hematoma on image 155. This is indeterminate and could be due to prior intervention. Secondary infection would also be in the differential diagnosis. Mild urothelial thickening within the left renal collecting system. No retroperitoneal extension of hemorrhage identified. No retroperitoneal lymphadenopathy. Calcified plaque within the normal caliber abdominal aorta. The bladder, uterus, and ovaries are unremarkable. No pelvic free fluid. There is mild pelvic floor collapse. A few colonic diverticula. No evidence for acute diverticulitis. [id number] fecal retention is noted. No bowel wall thickening or obstruction. Normal appendix. IMPRESSION: 1. Heterogeneous appearance to the majority of the left kidney which favors a subacute subcapsular hematoma. This is difficult to assess due to the subacute appearance and lack of intravenous contrast. An intraparenchymal hematoma could also have a similar appearance but is considered less likely. This apparent subcapsular hematoma measures up to 2.7 cm in thickness and appears to demonstrate compression of the normal left renal parenchyma. 2. There is a punctate foci of gas within the suspected left renal subcapsular hematoma. This is indeterminate and could be due to prior intervention. Secondary infection would also be in the differential diagnosis. 3. No retroperitoneal extension of hemorrhage identified. 4. Additional findings as described above. Medications Administered ER Medications Given: None Code Status & VTE Plan Code Status Full VTE Prophylaxis Plan VTE Prophylaxis will be ordered: No Reason for no VTE drug order: Treatment not indicated PG Care Time/CCT Total # of Minutes Spent Total Time Spent with Patient: Total time spent is greater than 50% in coordination of care (as documented) at patient's floor/unit and/or counseling patient: Coding Level of Care Code 11720 INT INP/OBS CARE 2/55MIN Diagnoses Anemia D64.9 Anemia type: unspecified type Renal hematoma, left S37.012A ESRD on dialysis N18.6; Z99.2 (1) Anemia Anemia type: unspecified type Qualified Code(s): D64.9 - Anemia, unspecified
[2022-11-08] MEDS ORDERED: traMADol HCL 50 MG TABLET PO STA (21:14)
[2022-11-08] MEDS ORDERED: DOCUSATE SODIUM 100 MG CAP PO PRN (22:11)
[2022-11-08] MEDS ORDERED: POLYETHYLENE (MIRALAX) 17 GM PACK PO PRN (22:11)
[2022-11-08] MEDS ORDERED: TRIAMCINOLONE ACET 0.5% CR 15 GM TUBE TOP PRN (22:11)
[2022-11-08] MEDS ORDERED: traZODone HCL 50 MG TAB PO SCH (22:11)
[2022-11-08] MEDS ORDERED: LOPERAMIDE HCL 2 MG CAP PO PRN (22:11)
[2022-11-08] MEDS ORDERED: diphenhydrAMINE Capsule 25 MG CAP PO SCH (22:11)
[2022-11-08] MEDS ORDERED: ACETAMINOPHEN 325 MG TAB PO PRN (22:18)
[2022-11-08] MEDS: GABAPENTIN 100 MG CAP PO SCH (22:56)
[2022-11-08] MEDS: METOPROLOL TARTRATE 25 MG TAB PO SCH (22:56)
[2022-11-08] MEDS: traMADol HCL 50 MG TABLET PO PRN (23:56)
[2022-11-09] MEDS: traMADol HCL 50 MG TABLET PO PRN (07:44)
[2022-11-09] MEDS: GABAPENTIN 100 MG CAP PO SCH ×2 (08:39→14:21)
[2022-11-09] MEDS: METOPROLOL TARTRATE 25 MG TAB PO SCH (08:52)
[2022-11-09] MEDS ORDERED: CHOLECALCIFEROL 5,000 UNITS 125 MCG TAB PO SCH (09:00)
[2022-11-09] MEDS ORDERED: FUROSEMIDE 40 MG TAB PO SCH (09:00)
[2022-11-09] MEDS ORDERED: ADVANCED PROBIOTIC 1250 MG CAPSULE PO SCH (09:00)
[2022-11-09] MEDS ORDERED: ROSUVASTATIN CALCIUM 20 MG TAB PO SCH (09:00)
[2022-11-09] MEDS ORDERED: PANTOprazole 40 MG TAB PO SCH (09:00)
[2022-11-09] MEDS ORDERED: amLODIPine BESYLATE 5 MG TAB PO SCH (09:00)
[2022-11-09 09:07] LABS: Basophils # (auto) 0.08 K/uL (0-0.2); Basophils % (auto) 0.8 %; Eosinophils % (auto) 3.2 %; Hematocrit (blood only) 26.2 % (37.0-47.0); Hemoglobin 8.7 g/dl (12.0-16.0); Immature Granulocytes # (auto) 0.04 K/uL (0.01-0.20); Immature Granulocytes % (auto) 0.4 %; Lymphocytes # (auto) 2.19 K/uL (1.2-3.4); Lymphocytes % (auto) 23.2 %; Mean Corpuscular Hemoglobin 28.6 pg (25.0-34.0); Mean Corpuscular Hgb Conc 33.2 g/dL (32.0-36.0); Mean Corpuscular Volume 86.2 fL (80.0-100.0); Mean Platelet Volume 10.2 fL (9.4-12.4); Monocytes # (auto) 0.61 K/uL (0.11-0.59); Monocytes % (auto) 6.4 %; Neutrophils # (auto) 6.24 K/uL (1.40-6.50); Platelet Count 243 K/uL (130-400); RDW Coefficient of Variation 15.6 % (11.5-14.5); RDW Standard Deviation 48.7 fL (36.4-46.3); Red Blood Count 3.04 M/uL (4.20-5.40); White Blood Count 9.46 K/ul (4.8-10.8)
[2022-11-09 09:17] LABS: BUN Creatinine Ratio 9.3 (10-20); Calcium 9.3 mg/dl (8.6-10.3); Creatinine Clr Calc Pharmacy 22.5 ml/min; Est GFR (African American) 19.2 ml/min; Est GFR (Non-African American) 16.5 ml/min; Potassium 3.2 mmol/L (3.5-5.1)
--- NOTE | 2022-11-09 12:51 | Nephrology Consultation ---
Date of Consultation November 09, 2022 Assessment & Plan (1) Acute kidney injury: (2) Renal hematoma, left: (3) Vascular dialysis catheter in place: (4) Proteinuria: (5) Anemia: Plan 62-year-old female with stage IV CKD secondary to diabetic nephropathy, diagnosed by recent renal biopsy. Noted acute kidney injury requiring to be started on dialysis while inpatient after kidney biopsy complication of left renal hematoma. She has been getting outpatient dialysis. Recent lab showed drop in hemoglobin prompting admission to hospital. CT abdomen pelvis showed slight increase in size of hematoma however hemoglobin improved rapidly from 7.6-8.7 after 1 unit of blood transfusion. She has been otherwise feeling well. Creatinine slightly increased to 2.8 off of dialysis for 2 days but electrolyte acceptable. She has been voiding normally. Blood pressure acceptable. Discussed with urologist Dr. maria antonia valero who recommended just continued monitoring of hematoma as hemoglobin stays stable. No indication for any intervention at this time for left subcapsular hematoma although there is some concern for pressure effect on the left kidney. -- Hold off dialysis today, okay to be discharged and she will go for outpatient dialysis Saturday. Will have lab done prior to dialysis and decide on on going need for dialysis -- Advised to keep well hydrated, avoid all NSAIDs, okay to stay off of all anticoagulants at this time. -- She will have follow-up with Urology in 3-4 weeks Thank you for allowing me to participate in your patient's care. It was a pleasure to see Bernard History of Present Illness Reason for Consultation: Anemia, ELROY, intraabdominal hematoma Attending Physician: Shea Huertas MD History of Present Illness Jeanne Simpson is a 62 year old female with PMH of stage 4 CKD, recent ELROY, renal biopsy, admitted with anemia, retroperitoneal hematoma. Nephrology consult requested for management of above. EMR records were reviewed in detail during visit. Jeanne was advised to come to ER yesterday as out pt lab showed drop in Hb to 7.1 from 8.1 1 week ago and concern for a rebleed. She had left renal biopsy on 10/23/22 at [facility]. Biopsy was complicated by a hematoma at the site and subsequently she had to be started on dialysis. Decent UO. She also reported left flank pain but this has been consistent since the biopsy and not recently changed. No shortness of breath or chest pain. Had HD Saturday, cr was 2.5 yesterday and slightly worsened to 2.8 this am, electrolyte acceptable. Received 1 PRBC and hb improved to 8.7. CT A/P showed left sub capsular hematoma 2.7 cm size, last CT in [place] reported 2.1 cm size with some compression on left kidney. Stage IIIB/4 CKD, b/l cr lately around 2.5 with moderate degree proteinuria, secondary to diabetic nephropathy ( Bx on 10/23/22 showed classic DM nephropathy and atherosclerosis, BM biopsy on on 09/24/22 negative fo paraproteinemic disease although she has nephrotic range proteinuria but no hematuria pyuria. SPEP, UPEP and FLC ratio slightly abnormal. Has history of repeated acute kid ashok injury previously. Denies chronic NSAID use. Has more than 40 years history of smoking since age 10 and quit smoking in around 2014. Denies alcohol intake. One of her uncle had history of kidney transplant, no known h/o kidney disease but it was thought to be due to a medication which caused the end-stage renal disease. , lives with her , has grown-up son. She has been on disability since her right below-knee amputation in 2020. Hypertension well controlled but lately diabetes seem to be poorly controlled as she has been having difficulty getting her insulin paid by insurance, recent A1c above 10. No h/o CAD. Has history of peripheral vascular disease. Had right BKA in 2020. Overall she has been otherwise doing well, denies any acute symptoms today. Allergies Allergy/AdvReac Type Severity Reaction Status Date / Time daptomycin Allergy Severe rhabdomyoly Verified 11/08/22 16:57 sis sulfamethoxazole Allergy Severe renal Verified 11/08/22 16:57 [From Bactrim] failure trimethoprim [From Bactrim] Allergy Severe renal Verified 11/08/22 16:57 failure amoxicillin Allergy Intermediate HIVES & N/V Verified 11/08/22 16:57 clavulanic acid Allergy Intermediate HIVES & N/V Verified 11/08/22 16:57 vancomycin Allergy Mild pruritus Verified 11/08/22 16:57 lisinopril AdvReac Intermediate NAUSEA/VOMI Verified 11/08/22 16:57 TING omeprazole AdvReac Intermediate Nausea Verified 11/08/22 16:57 Home Medications Medication Instructions Recorded Confirmed Type cholecalciferol (vitamin D3) 125 5,000 units PO QAM 09/16/18 11/08/22 History mcg (5,000 unit) tablet (Vitamin D3) metoprolol tartrate 25 mg tablet 25 mg PO BID 09/16/18 11/08/22 History acetaminophen 650 mg 650 mg PO Q8H PRN Pain 10/07/20 11/08/22 History tablet,extended release docusate sodium 100 mg capsule 100 mg PO DAILY PRN Constipation 11/10/21 11/08/22 History (Stool Softener) triamcinolone acetonide 0.5 % 1 applic topical BID PRN skin 11/10/21 11/08/22 Rx topical cream irritation #60 grams Lactobacillus acidoph-L.bulgaricus 1 tab PO BID #180 tabs 11/20/21 11/08/22 Rx 1 million cell tablet (Floranex) loperamide 2 mg capsule (Imodium 2 mg PO Q6H PRN Diarrhea 12/13/21 11/08/22 His tory A-D) polyethylene glycol 3350 17 17 g PO DAILY PRN Constipation 12/13/21 11/08/22 History gram/dose oral powder (Miralax) diphenhydramine HCl 25 mg tablet 25 mg PO HS 01/12/22 11/08/22 History (Sleep Aid (diphenhydramine)) Prosthetic Socket replacement #1 ea 08/13/22 11/08/22 Rx gabapentin 100 mg capsule 100 mg PO TID 90 days #270 caps 08/28/22 11/08/22 Rx omeprazole 20 mg capsule,delayed 20 mg PO DAILY 90 days #90 caps 08/28/22 11/08/22 Rx release rosuvastatin 40 mg tablet 40 mg PO QAM #90 tabs 08/28/22 11/08/22 Rx trazodone 50 mg tablet 25 mg PO HS #30 tabs 08/29/22 11/08/22 Rx furosemide 40 mg tablet 40 mg PO QAM 09/24/22 11/08/22 History amlodipine 10 mg tablet 5 mg PO QAM #90 tabs 10/31/22 11/08/22 Rx tramadol 50 mg tablet 50 mg PO DAILY PRN pain #7 tabs 10/31/22 11/08/22 Rx Patient History Medical History Acute blood loss anemia Anemia of chronic disease Charcot's arthropathy Charcot's joint of foot due to diabetes Chronic back pain Chronic constipation Chronic diastolic (congestive) heart failure Chronic diastolic CHF (congestive heart failure) Chronic kidney disease (CKD), stage III (moderate) monitoring. Follows with Nephrology [facility]. Chronic kidney disease, stage 3a Chronic osteomyelitis Chronic venous insufficiency Clostridium difficile colitis history (~11/2016) -- treated no problems since. Diabetes mellitus type 2 with complications Diabetes mellitus type 2, uncontrolled Diabetic foot infection Diabetic foot ulcer associated with type 2 diabetes mellitus, with fat layer exposed Diabetic neuropathy Diabetic peripheral neuropathy associated with type 2 diabetes mellitus Diabetic ulcer of left great toe Diabetic ulcer of right foot associated with diabetes mellitus due to underlying condition, limited to breakdown of skin DVT prophylaxis Dyslipidemia GERD (gastroesophageal reflux disease) Hypertension Hypertension Morbid obesity BMI 45.7 Non-traumatic rhabdomyolysis (02/2021) On anticoagulant therapy plavix/eliquis daily Osteoarthritis Osteomyelitis of right foot PAD (peripheral artery disease) S/P right lower extremity angiogram, mechanical thrombectomy of pre-existing superficial femoral artery stent usinh Vidal Galloway Omni catheter, balloon angioplasty of the superficial femoral artery stent using 5 X 200 mm [place] balloon, balloon angioplasty of the superficial femoral artery 6 X 250 mm IN.PACT drug coated balloon, stent angioplasty of the superficial femoral artery using 5 X 150 mm INOVA bare metal stent, and debridement of the right lateral foot on 11/14/[address] Lomeli. S/P bilateral SFA stenting Postmenopausal bleeding Proteinuria Sleep apnea no cpap Stage 3b chronic kidney disease UTI (urinary tract infection) Vitamin D deficiency Surgical History H/O vascular surgery (01/2020) LT SFA atherectomy, MARSHA w/ supera stenting History of bilateral cataract extraction History of cholecystectomy History of esophagogastroduodenoscopy (EGD) History of lumpectomy of right breast benign History of tooth extraction History of vascular surgery (04/20/22) L SFA Angio Extremity Unilateral Fem Pop Balloon Atherectomy S/P angioplasty (06/2019) LT SFA angioplastly with MARSHA S/P angioplasty (10/2019) RT SFA atherectomy/angioplasty w/ MARSHA S/P epidural steroid injection S/P femoral-popliteal bypass surgery S/P vascular surgery (11/2020) R fem-pop [id number] w/ stent and angioplasty Status post amputation of toe of right foot (11/14/20) amputation metatarsal w/ toe, R 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) Status post tonsillectomy Status post tubal ligation Family History Mother Rheumatoid arthritis Father Emphysema of lung Peripheral artery disease Aunt Breast cancer MOMS SIDE Colorectal cancer MOMS SIDE Myocardial infarction MOMS SIDE Brother Prostate cancer Sister COPD (chronic obstructive pulmonary disease) Other No family history of adverse response to anesthesia Denies family history of Ovarian cancer CAD (coronary atherosclerotic disease) Social History Smoking Status: Never smoker Tobacco Type: Cigarettes packs per day: 2; Second Hand Exposure: No; Do You Dip or Chew Tobacco: No; Tobacco Cessation Education Requested by Patient: No Hx Alcohol Use: No Hx Substance Use: No Preferred Language: Latvian Communication Ability: Effective Visual Impairment: No Limitations Hearing Ability: Normal Refining Supervisor Required: No Beliefs That Will Affect Care: None marital status: Current Living Situation: Family Current Living Situation Comment: lives with and son current occupational status: disabled How many Children do You have: 1 Other Information That Helps Us Care for You: No other: previous worked at [employer] Feels Safe at Home: Yes Safety Concerns: Feels Safe At This Time Childhood Exposure to Second-Hand Smoke: Yes (father was a heavy smoker ) Diet: regular caffeine: No during the past year weight has: remained stable Dental Care, Regularly: No Physical Activity Frequency: Does not Exercise Seatbelt Use: always Sunscreen Use: No Assistive Devices: Cane and Wheelchair Review of Systems Review of Systems: Detailed review of system was done and pertinent positives and negatives mentioned above. Physical Exam Constitutional: WD/WN, vitals as above no acute distress Eyes: + anicteric sclerae Neck: normal visual inspection Thyroid: no thyromegaly Respiratory: normal respiratory effort; no respiratory distress and no cough Auscultation: lungs clear to auscultation bilaterally Cardiovascular: Rate/Rhythm: regular rate and regular rhythm Heart Sounds: normal S1 and normal S2 Extremities: + vascular access device ( IJ TDC , no bleeding); no edema Gastrointestinal (Abdomen): Inspection/Auscultation: abdomen normal to inspection and normal bowel sounds Percussion/Palpation: abdomen soft; abdomen nontender Musculoskeletal: Extremities: extremities normal to inspection Mild tenderness in left lower back however no erythema, swelling. Skin: normal turgor; no rashes Neurologic: no focal motor deficits and not confused Psychiatric: Orientation: alert and oriented x 3 Affect: euthymic affect Results & Data Vital Signs (Past 12 Hours) Vital Signs Temp Pulse Pulse Resp BP BP Pulse Ox 11/09/22 07:30 11/09/22 08:42 61 99 11/09/22 07:15 36.7 C 59 L 20 152/64 H 98 11/09/22 02:10 36.7 C 60 16 129/70 97 11/09/22 01:45 36.6 C 60 16 138/59 L 98 O2 Del Method 11/09/22 07:30 Room Air 11/09/22 08:42 Room Air 11/09/22 07:15 Room Air 11/09/22 02:10 11/09/22 01:45 PG Care Time/CCT Total # of Minutes Spent Total Time Spent with Patient: Total time spent is greater than 50% in coordination of care (as documented) at patient's floor/unit and/or counseling patient: Coding Level of Care Code 32187 INT INP/OBS CARE 3/75MIN Diagnoses Acute kidney injury N17.9 Renal hematoma, left S37.012A Vascular dialysis catheter in place Z99.2 Proteinuria R80.9 Anemia D64.9 Anemia type: unspecified type (5) Anemia Anemia type: unspecified type Qualified Code(s): D64.9 - Anemia, unspecified
--- NOTE | 2022-11-09 13:35 | Discharge Summary ---
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 The patient had a biopsy of her left kidney 2 weeks ago at [facility]. This was complicated by a hematoma at this site and subsequently she had to be started on dialysis. Due to outpatient hemoglobin drop from 8.1 -> 7.1 she was sent to the ER for further evaluation due to concern for a rebleed. The patient reports left flank pain but this has been consistent since the biopsy and not recently changed. She reports some dizziness on standing today but feels this is due to not eating anything today. No shortness of breath or chest pain. Principal Dx & Hospital Course #1 = Principal Diagnosis (1) Anemia: Presented with fatigue, lightheadedness, recent small amount of bleeding from HD catheter but alsow tih recent h/o left renal subcapsular hematoma Hematoma slightly increased in size on CT here as compared to at [place] Received 1 unit PRBCs here and hgb up to 8.7 from 7.6 on admission Feels well, has ongoing left flank pain-requests refill on tramadol-gave #14 tabs -dc to home and have CBC on Saturday with dialysis f/u with Urology in 3-4 weeks for renal hematoma (2) Renal hematoma, left: Measured 2.7cm in maximal depth. Noted to be 2cm on multiple CTs at [facility] (last one on October 22). Doubtful new acute bleed despite apparent increase in size. Not concerning now for ongoing bleeding as hgb up appropriately and hemodynamically stable (3) ESRD on dialysis: Consult nephrology - plan is to possible wean of dialysis as not suspected to be needed longer term no HD needed today and can f/u as outpt on Saturday Plan VTE Prophylaxis - chemical contraindicated due to hematoma Diet - dialysis renal Disposition -dc to home Discharge Exam Constitutional WD/WN, vitals as above Respiratory normal respiratory effort, lungs clear to auscultation Cardiovascular Rate/Rhythm: regular rate and regular rhythm right BKA with prosthesis, no edema left leg Gastrointestinal (Abdomen) +left CVA tenderness, no hematoma on exterior Psychiatric A+Ox3, euthymic affect Updated Medication List Medication Instructions Recorded Confirmed Type cholecalciferol (vitamin D3) 125 5,000 units PO QAM 09/16/18 11/08/22 History mcg (5,000 unit) tablet (Vitamin D3) metoprolol tartrate 25 mg tablet 25 mg PO BID 09/16/18 11/08/22 History acetaminophen 650 mg 650 mg PO Q8H PRN Pain 10/07/20 11/08/22 History tablet,extended release docusate sodium 100 mg capsule 100 mg PO DAILY PRN Constipation 11/10/21 11/08/22 History (Stool Softener) triamcinolone acetonide 0.5 % 1 applic topical BID PRN skin 11/10/21 11/08/22 Rx topical cream irritation #60 grams Lactobacillus acidoph-L.bulgaricus 1 tab PO BID #180 tabs 11/20/21 11/08/22 Rx 1 million cell tablet (Floranex) loperamide 2 mg capsule (Imodium 2 mg PO Q6H PRN Diarrhea 12/13/21 11/08/22 History A-D) polyethylene glycol 3350 17 17 g PO DAILY PRN Constipation 12/13/21 11/08/22 History gram/dose oral powder (Miralax) diphenhydramine HCl 25 mg tablet 25 mg PO HS 01/12/22 11/08/22 History (Sleep Aid (diphenhydramine)) Prosthetic Socket replacement #1 ea 08/13/22 11/08/22 Rx gabapentin 100 mg capsule 100 mg PO TID 90 days #270 caps 08/28/22 11/08/22 Rx omeprazole 20 mg capsule,delayed 20 mg PO DAILY 90 days #90 caps 08/28/22 11/08/22 Rx release rosuvastatin 40 mg tablet 40 mg PO QAM #90 tabs 08/28/22 11/08/22 Rx trazodone 50 mg tablet 25 mg PO HS #30 tabs 08/29/22 11/08/22 Rx furosemide 40 mg tablet 40 mg PO QAM 09/24/22 11/08/22 History amlodipine 10 mg tablet 5 mg PO QAM #90 tabs 10/31/22 11/08/22 Rx tramadol 50 mg tablet 50 mg PO BID PRN pain #14 tabs 11/09/22 Rx Hospital Stay Data Consultations 11/08/22 16:50 ED Decision to Admit Stat 11/08/22 22:11 Consult Nephrology Routine Diagnostic Imagining Performed 11/08/22 15:33 CT abd pelvis wo con Stat Pending Results Patient Have Any Pending Studies at Discharge: No Discharge Instructions Given to Patient (Per Discharging Provider) You were admitted for anemia causing you symptoms and given a blood transfusion. Please keep your usual dialysis appointment for this Saturday and they will recheck your blood count then. Dr. Mei will touch base with Urology to ensure you have follow up on your hematoma around the left kidney. You can take tramadol as needed for pain. Total Time Total Time Spent Total Time Spent (In Minutes): 35 min Total Time Includes: Examination of the Patient, Discharge Planning, Medication Reconciliation and Communication With Other Providers (Nephrology) Coding Level of Care Code INP/OBS EV SAME DAY LV 1,45MIN Diagnoses Anemia D64.9 Anemia type: unspecified type Renal hematoma, left S37.012A ESRD on dialysis N18.6; Z99.2
== END 2022-11-09 15:14 | disposition home or self-care (01) ==
LOC: ED 13:55 → 3N 13:55 → SUATTDRO 19:05 → 3N 21:53

== ENCOUNTER 2023-01-18 15:43 | Observation (INO) ==
--- NOTE | 2023-01-18 16:25 | Emergency Department Note ---
History of Present Illness General Chief complaint: Shortness of Breath/Dyspnea Stated complaint: SOB,WEAK,ABNORMAL LABS Time Seen by Provider: 01/18/23 16:23 History of Present Illness This 62-year-old female patient presents emergency department for evaluation of shortness of breath, weakness, and abnormal labs. The patient saw her PCP on 01/17/23 for shortness of breath and fatigue that started 4 days ago. She was sent over for a chest x-ray that was abnormal per patient. She complains of pain under her left rib when she takes a deep breath. SOB is worse with any exertion and when she lays down. This is different and worse than her typical baseline. Mild dry cough yesterday and today. No fevers or other URI symptoms. She denies any chest pain. Sometimes has pain in her left flank that is worse with taking a deep breath. Denies any nausea or vomiting. Denies any urinary symptoms. She typically has alternating constipation and diarrhea with no recent change. Denies hematochezia, melena, hematuria, hemoptysis, or hematemesis. She is not on any blood thinners. She was on dialysis for 5 weeks due to her CKD and a hematoma that developed after a renal biopsy. Has been off dialysis for about 1 month. Her dialysis port has since been removed. Denies any new left sided leg or calf pain/swelling (history of chronic symptoms). 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 The patient was seen by her PCP on 01/17/2023 and was found to have bibasilar crackles on exam. She has a history of CHF as well as severe chronic kidney disease. Her oxygen levels will routine 93 to 95% in the office. Her EKG showed sinus rhythm with first-degree AV block. She had a negative in office COVID test. She had been at a where 2 people were later noted to be ill. Blood work from 01/16/2023 shows a stable hemoglobin of 9.0. White blood cell count was not elevated. Platelet count was normal. COVID test negative. Chest x-ray from today shows cardiomegaly and moderate pulmonary edema with small bilateral pleural effusions. Renal ultrasound from 01/14/2023 was normal. She had been taking Lasix 80 mg Saturday and 40 mg the other days. However, after her dialysis, they decreased her dose of Lasix to 40 mg every day. She has gained about 20 pounds in the past 4 to 5 weeks per patient. Home Medications Medication Instructions Recorded Confirmed Type acetaminophen 650 mg 650 mg PO Q8H PRN Pain 10/07/20 01/18/23 History tablet,extended release docusate sodium 100 mg capsule 100 mg PO DAILY PRN Constipation 11/10/21 01/18/23 History (Stool Softener) triamcinolone acetonide 0.5 % 1 applic topical BID PRN skin 11/10/21 01/18/23 Rx topical cream irritation #60 grams Lactobacillus acidoph-L.bulgaricus 1 tab PO BID #180 tabs 11/20/21 01/18/23 Rx 1 million cell tablet (Floranex) loperamide 2 mg capsule (Imodium 2 mg PO Q6H PRN Diarrhea 12/13/21 01/18/23 History A-D) polyethylene glycol 3350 17 17 g PO DAILY PRN Constipation 12/13/21 01/18/23 History gram/dose oral powder (Miralax) Prosthetic Socket replacement #1 ea 08/13/22 01/17/23 Rx aspirin 81 mg tablet,delayed 81 mg PO DAILY 11/15/22 01/18/23 History release (Adult Low Dose Aspirin) diphenhydramine HCl 25 mg tablet 25 mg PO HS PRN Sleep 11/15/22 01/18/23 History (Sleep Aid (diphenhydramine)) empagliflozin 25 mg tablet 25 mg PO DAILY #90 tabs 12/25/22 01/18/23 Rx (Jardiance) amlodipine 10 mg tablet 5 mg PO QAM #90 tabs 12/28/22 01/18/23 Rx furosemide 40 mg tablet 40 mg PO QAM #90 tabs 12/28/22 01/18/23 Rx gabapentin 100 mg capsule 100 mg PO TID 90 days #270 caps 12/28/22 01/18/23 Rx losartan 50 mg tablet 50 mg PO QAM #90 tabs 12/28/22 01/18/23 Rx metoprolol tartrate 25 mg tablet 25 mg PO BID #180 tabs 12/28/22 01/18/23 Rx omeprazole 20 mg capsule,delayed 20 mg PO DAILY 90 days #90 caps 12/28/22 01/18/23 Rx release rosuvastatin 40 mg tablet 40 mg PO QAM #90 tabs 12/28/22 01/18/23 Rx trazodone 50 mg tablet 25 mg PO HS #30 tabs 12/28/22 01/18/23 Rx tramadol 50 mg tablet 50 mg PO BID PRN pain #60 tabs 01/02/23 01/18/23 Rx Allergies Allergy/AdvReac Type Severity Reaction Status Date / Time daptomycin Allergy Severe rhabdomyoly Verified 01/18/23 17:38 sis amoxicillin Allergy Intermediate HIVES & N/V Verified 01/18/23 17:38 clavulanic acid Allergy Intermediate HIVES & N/V Verified 01/18/23 17:38 vancomycin Allergy Intermediate pruritus Verified 01/18/23 17:38 sulfamethoxazole AdvReac Severe renal Verified 01/18/23 17:38 [From Bactrim] failure trimethoprim [From Bactrim] AdvReac Severe renal Verified 01/18/23 17:38 failure lisinopril AdvReac Intermediate NAUSEA/VOMI Verified 01/18/23 17:38 TING omeprazole AdvReac Intermediate Nausea Verified 01/18/23 17:38 Past Med/Surg History Medical History (Updated 01/18/23 @ 23:29 by Salma Foy PA-C) Anemia of chronic disease Charcot's arthropathy Charcot's joint of foot due to diabetes Chronic back pain Chronic constipation Chronic diastolic CHF (congestive heart failure) Chronic kidney disease, stage 4 (severe) Chronic osteomyelitis Chronic venous insufficiency Clostridium difficile colitis history (~11/2016) -- treated no problems since. Diabetes mellitus type 2 with complications Diabetic neuropathy Diabetic ulcer of left great toe Dyslipidemia GERD (gastroesophageal reflux disease) Hypertension Morbid obesity BMI 45.7 Non-traumatic rhabdomyolysis (02/2021) Osteoarthritis PAD (peripheral artery disease) S/P right lower extremity angiogram, mechanical thrombectomy of pre-existing superficial femoral artery stent usin Vidal Espinaln Omni catheter, balloon angioplasty of the superficial femoral artery stent using 5 X 200 mm [place] balloon, balloon angioplasty of the superficial femoral artery 6 X 250 mm IN.PACT drug coated balloon, stent angioplasty of the superficial femoral artery using 5 X 150 mm INOVA bare metal stent, and debridement of the right lateral foot on 11/14/[address] Lomeli. S/P bilateral SFA stenting Postmenopausal bleeding Proteinuria Sleep apnea no cpap Vitamin D deficiency Surgical History H/O vascular surgery (01/2020) LT SFA atherectomy, MARSHA w/ supera stenting History of bilateral cataract extraction History of cholecystectomy History of esophagogastroduodenoscopy (EGD) History of lumpectomy of right breast benign History of tooth extraction History of vascular surgery (04/20/22) L SFA Angio Extremity Unilateral Fem Pop Balloon Atherectomy S/P angioplasty (06/2019) LT SFA angioplastly with MARSHA S/P angioplasty (10/2019) RT SFA atherectomy/angioplasty w/ MARSHA S/P epidural steroid injection S/P femoral-popliteal bypass surgery S/P vascular surgery (11/2020) R fem-pop [id number] w/ stent and angioplasty Status post amputation of toe of right foot (11/14/20) amputation metatarsal w/ toe, R 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) Status post tonsillectomy Status post tubal ligation Family History Mother Rheumatoid arthritis Father Emphysema of lung Peripheral artery disease Aunt Breast cancer MOMS SIDE Colorectal cancer MOMS SIDE Myocardial infarction MOMS SIDE Brother Prostate cancer Sister COPD (chronic obstructive pulmonary disease) Other No family history of adverse response to anesthesia Denies family history of Ovarian cancer CAD (coronary atherosclerotic disease) Social History Smoking Status: Former smoker Tobacco Type: Cigarettes packs per day: 2; Second Hand Exposure: No; Do You Dip or Chew Tobacco: No; Tobacco Cessation Education Requested by Patient: No Hx Alcohol Use: No Hx Substance Use: No Preferred Language: Iraqi Communication Ability: Effective Visual Impairment: No Limitations Hearing 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: 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 [employer] Required: No Beliefs That Will Affect Care: None marital status: Current Living Situation: Spouse Current Living Situation Comment: lives with and son current occupational status: disabled How many Children do You have: 1 Other Information That Helps Us Care for You: No other: previous worked at [employer] Feels Safe at Home: Yes Safety Concerns: Feels Safe At This Time Childhood Exposure to Second-Hand Smoke: Yes (father was a heavy smoker ) Diet: regular caffeine: No during the past year weight has: remained stable Dental Care, Regularly: No Physical Activity Frequency: Does not Exercise Seatbelt Use: always Sunscreen Use: No Assistive Devices: Prosthesis and Scooter/Electric Scooter Review of Systems See HPI for pertinent positives & negatives. Physical Exam Vital Signs Vital Signs - 24 hr 01/18/23 15:59 01/18/23 16:03 01/18/23 16:32 Temperature 36.8 C Temperature Source Temporal Artery Scan Pulse Rate 65 64 Pulse Rate from SpO2 Sensor Respiratory Rate 18 Respiratory Effort / Characteristics Non-Labored Respiratory Depth Normal Blood Pressure 133/47 L Blood Pressure Mean 75 Blood Pressure Position Right Lateral Pulse Oximetry 91 Oxygen Delivery Method Room Air Room Air Sepsis Recent Fever Within 48 Hours No Sepsis New/Unexplained Change in Mental Status No Sepsis Action Taken by Nursing No Action Required Pulse Oximetry Post Tiitration 91 01/18/23 16:03 01/18/23 16:30 01/18/23 17:57 Temperature Temperature Source Pulse Rate 72 Pulse Rate from SpO2 Sensor 72 Respiratory Rate 17 Respiratory Effort / Characteristics Respiratory Depth Blood Pressure 128/60 Blood Pressure Mean 93 Blood Pressure Position Pulse Oximetry 93 Oxygen Delivery Method Room Air Sepsis Recent Fever Within 48 Hours Sepsis New/Unexplained Change in Mental Status Sepsis Action Taken by Nursing Pulse Oximetry Post Tiitration 01/18/23 18:35 01/18/23 18:35 Temperature Temperature Source Pulse Rate Pulse Rate from SpO2 Sensor 74 Respiratory Rate Respiratory Effort / Characteristics Respiratory Depth Blood Pressure 140/46 L Blood Pressure Mean 64 Blood Pressure Position Pulse Oximetry 90 Oxygen Delivery Method Sepsis Recent Fever Within 48 Hours Sepsis New/Unexplained Change in Mental Status Sepsis Action Taken by Nursing Pulse Oximetry Post Tiitration Vital Signs: Vitals are noted on the nurse's note and reviewed by myself. GENERAL: Non toxic in appearance and in no acute distress. HEAD: Normocephalic, atraumatic. EARS: External auditory canals clear, tympanic membrane pearly campbell without erythema or effusion. No tragus tenderness. No mastoid tenderness. EYES: Pupils equal round and reactive to light and accommodation. Conjunctivae without injection, sclerae without icterus. Extraocular movements intact. NOSE: Patent, turbinates inflamed with no discharge. No sinus tenderness. MOUTH: Mucous membranes moist. Airway patent, uvula midline. Pharynx without erythema, edema, or exudate. No evidence for peritonsillar abscess. NECK: Supple without nuchal rigidity. No lymphadenopathy. HEART: Regular rate and rhythm without murmurs gallops or rubs. LUNGS: Clear to auscultation bilaterally without wheezes, rales or rhonchi, but she does have decreased air exchange throughout. No accessory muscle use or retractions. ABDOMEN: Positive bowel sounds x 4. Normal tympanic percussion. Soft, tender to palpation on the left flank and left side of the abdomen. No masses or organomegaly. No CVA tenderness. Negative [place] sign. No focal right lower quadrant or left lower quadrant tenderness. No guarding or rigidity. MUSCULOSKELETAL: Left lower extremity is nontender to palpation. No significant swelling of the left calf. No erythema or cording felt. Pedal edema without pitting on the left. The patient has a prosthesis in place on the right side secondary to her BKA. Course Administered Medications Gabapentin (Gabapentin 100 Mg Cap) 100 mg PO TID PER Stop: 02/17/23 21:26 Last Admin: 01/18/23 22:40 Dose: 100 mg Documented By: ALISTAIR Insulin Glargine (Lantus Per Unit Charge) 8 units SQ BID PER Stop: 02/17/23 21:26 Last Admin: 01/18/23 22:38 Dose: 8 units Documented By: ALISTAIR Co-signed By: SUSAN Metoprolol Tartrate (Metoprolol Tartrate 25 Mg Tab) 25 mg PO BID PER Stop: 02/17/23 21:26 Last Admin: 01/18/23 22:42 Dose: 25 mg Documented By: ALISTAIR Trazodone HCl (Trazodone Hcl 50 Mg Tab) 25 mg PO HS PER Stop: 02/17/23 21:26 Last Admin: 01/18/23 22:42 Dose: 25 mg Documented By: ALISTAIR Discontinued Medications Albuterol (Albut/Ipratrop 3mg/0.5mg Neb 3 Ml Vial) 3 ml NEB NOW STA; Protocol Stop: 01/18/23 16:42 Last Admin: 01/18/23 16:51 Dose: 3 ml Documented By: JAYDE Sodium Chloride (Nss) 250 mls @ 999 mls/hr IV .Q16M ONE Stop: 01/18/23 16:56 Last Infusion: 01/18/23 17:09 Dose: 0 mls/hr Documented By: Admin: 01/18/23 16:51 Dose: 999 mls/hr Documented By: JAYDE Medical Decision Making Differential Diagnosis Differential diagnosis includes URI, bronchitis, pneumonia, pneumothorax, hemothorax, PE, SD, pericarditis, myocarditis, airway obstruction, aspiration, pulmonary edema, asthma, COPD, CHF, pleurisy, metabolic acidosis, anemia, neoplasm, or others. Laboratory Data Attestation: I reviewed the patient's lab results. 01/18/23 16:32 01/18/23 16:32 Lab Results 01/18/23 01/18/23 01/18/23 Range/Units 16:32 16:32 16:32 WBC 7.06 (4.8-10.8) K/ul RBC 3.43 L (4.20-5.40) M/uL Hgb 9.8 L (12.0-16.0) g/dl Hct 31.5 L (37.0-47.0) % MCV 91.8 (80.0-100.0) fL MCH 28.6 (25.0-34.0) pg MCHC 31.1 L (32.0-36.0) g/dL RDW Std Deviation 55.8 H (36.4-46.3) fL RDW Coeff of Adelina 16.6 H (11.5-14.5) % Plt Count 233 (130-400) K/uL MPV 9.5 (9.4-12.4) fL Immature Gran % (Auto) 0.4 % Neut % (Auto) 63.6 % Lymph % (Auto) 23.2 % Loving % (Auto) 7.1 % Eos % (Auto) 4.7 % Baso % (Auto) 1.0 % Neut # (Auto) 4.49 (1.40-6.50) K/uL Lymph # (Auto) 1.64 (1.2-3.4) K/uL Loving # (Auto) 0.50 (0.11-0.59) K/uL Eos # (Auto) 0.33 (0-0.50) K/uL Baso # (Auto) 0.07 (0-0.2) K/uL Immature Gran # (Auto) 0.03 (0.01-0.20) K/uL PT 11.1 (9.0-12.0) Seconds INR 1.0 (0.9-1.1) APTT 29.9 (21.0-31.0) Seconds PTT Ratio 1.1 Sodium 138 (136-145) mmol/L Potassium 5.5 H (3.5-5.1) mmol/L Chloride 107 (98-107) mmol/L Carbon Dioxide 24 (21-32) mmol/L Anion Gap 7 (3-11) BUN 68 H (6-23) mg/dl Creatinine 3.37 H (0.6-1.2) mg/dl Est Cr Clr Drug Dosing 20.7 ml/min Est GFR ( Amer) 16.0 ml/min Est GFR (Non-Af Amer) 13.8 ml/min BUN/Creatinine Ratio 20.2 H (10-20) Glucose 99 (70-99(Fasting)) mg/dl Calcium 9.2 (8.6-10.3) mg/dl Magnesium 2.9 H (1.7-2.4) mg/dl Total Bilirubin 0.4 (0.2-1.0) mg/dl AST 13 (13-39) U/L ALT 16 (7-52) U/L Alkaline Phosphatase 111 H (34-104) U/L Troponin I High Sens 7.1 (0-14) pg/ml B-Natriuretic Peptide (0-100) pg/ml Total Protein 7.7 (6.0-8.3) gm/dl Albumin 3.8 (3.4-5.0) gm/dl Globulin 3.9 (2.5-4.0) gm/dl Albumin/Globulin Ratio 1.0 (0.9-2) TSH (0.300-4.500) uIu/ml Free T4 (0.61-1.60) ng/dl SARS-CoV-2 (PCR) (Negative) Influenza Type A (PCR) (Neg) Influenza Type B (PCR) (Neg) RSV (RT-PCR) (Neg) 01/18/23 01/18/23 01/18/23 Range/Units 16:32 16:32 16:53 WBC (4.8-10.8) K/ul RBC (4.20-5.40) M/uL Hgb (12.0-16.0) g/dl Hct (37.0-47.0) % MCV (80.0-100.0) fL MCH (25.0-34.0) pg MCHC (32.0-36.0) g/dL RDW Std Deviation (36.4-46.3) fL RDW Coeff of Adelina (11.5-14.5) % Plt Count (130-400) K/uL MPV (9.4-12.4) fL Immature Gran % (Auto) % Neut % (Auto) % Lymph % (Auto) % Loving % (Auto) % Eos % (Auto) % Baso % (Auto) % Neut # (Auto) (1.40-6.50) K/uL Lymph # (Auto) (1.2-3.4) K/uL Loving # (Auto) (0.11-0.59) K/uL Eos # (Auto) (0-0.50) K/uL Baso # (Auto) (0-0.2) K/uL Immature Gran # (Auto) (0.01-0.20) K/uL PT (9.0-12.0) Seconds INR (0.9-1.1) APTT (21.0-31.0) Seconds PTT Ratio Sodium (136-145) mmol/L Potassium (3.5-5.1) mmol/L Chloride (98-107) mmol/L Carbon Dioxide (21-32) mmol/L Anion Gap (3-11) BUN (6-23) mg/dl Creatinine (0.6-1.2) mg/dl Est Cr Clr Drug Dosing ml/min Est GFR ( Amer) ml/min Est GFR (Non-Af Amer) ml/min BUN/Creatinine Ratio (10-20) Glucose (70-99(Fasting)) mg/dl Calcium (8.6-10.3) mg/dl Magnesium (1.7-2.4) mg/dl Total Bilirubin (0.2-1.0) mg/dl AST (13-39) U/L ALT (7-52) U/L Alkaline Phosphatase (34-104) U/L Troponin I High Sens (0-14) pg/ml B-Natriuretic Peptide 143 H (0-100) pg/ml Total Protein (6.0-8.3) gm/dl Albumin (3.4-5.0) gm/dl Globulin (2.5-4.0) gm/dl Albumin/Globulin Ratio (0.9-2) TSH 5.766 H (0.300-4.500) uIu/ml Free T4 0.93 (0.61-1.60) ng/dl SARS-CoV-2 (PCR) NEGATIVE (Negative) Influenza Type A (PCR) Negative (Neg) Influenza Type B (PCR) Negative (Neg) RSV (RT-PCR) Negative (Neg) Imaging Data Radiologist's Impression: Abdomen/Pelvis CT 01/18/23 16:41 CT abd pelvis wo con CLINICAL HISTORY: left flank and abdominal pain TECHNIQUE: Helical axial images of the abdomen and pelvis were obtained. Automated dose lowering techniques and/or adjustment according to patient size were utilized for this exam. This exam was performed without intravenous contrast. CT DOSE: 1268.17 mGy.cm COMPARISON: Comparison is made to CT abdomen pelvis 6 clinical history FINDINGS: Lower chest: Small pleural effusions are seen bilaterally with associated atelectasis. Liver: Unremarkable. No focal lesions are seen. Gallbladder and biliary tree: Patient is status post cholecystectomy. No intra- or extrahepatic biliary ductal dilation. Pancreas: Unremarkable, no focal lesions. Spleen: Unremarkable. Adrenals: Unremarkable. Kidneys and ureters: Perinephric stranding is noted bilaterally. Bladder: Limited evaluation due to underdistention. Reproductive organs: Unremarkable. Bowel: Unremarkable. Lymph nodes Retroperitoneal: Unremarkable. Pelvic: Unremarkable. Mesenteric: Unremarkable. Peritoneum: Normal. Vessels: Atherosclerotic calcifications are seen. Abdominal wall: Fat-containing left abdominal hernia is seen. Bones: Degenerative changes in the visualized spine. IMPRESSION: No acute abnormalities explain left flank pain, in particular no evidence of obstructive stone is seen. ACT 112: Negative or not required by law. Electronically signed by: Anthony Odell M.D. 01/18/2023 7:08 PM MDM Narrative I examined the patient. An IV lock was placed and labs were drawn. She was given 250 mL normal saline solution. She was given a DuoNeb treatment with some improvement of her shortness of breath subjectively, but no significant change in her lung sounds objectively. EKG was interpreted by myself as sinus rhythm at 71 bpm with prolonged SD interval at 214. No acute ST or T wave changes. Continuous compliance monitor: Order was placed for continuous compliance monitor. Patient was placed on the compliance monitor and continuous pulse ox. Patient was noted to be in normal sinus rhythm at an initial rate of 78 bpm per my interpretation. I reviewed the patient's past medical history including her PCP visit and recent outpatient work-up as summarized above. Chest x-ray from earlier today shows cardiomegaly and moderate pulmonary edema with small bilateral pleural effusions. The patient has gained about 20 pounds in the past 4 to 5 weeks. Her diuretics were decreased after she had been on dialysis. White blood cell count is normal at 7.06. Hemoglobin low at 9.8, but this is improved from previous labs. Platelet count is normal. Coags are normal. Potassium elevated at 5.5, BUN 68, and creatinine 3.37. These are all elevated even compared to her baseline. Magnesium elevated at 2.9. Alk phos 111, but LFTs otherwise normal. BNP elevated at 143. TSH elevated at 5.766 with normal free T4. COVID, influenza, and RSV were negative. The patient did not give a u rine sample while in the emergency department. The patient has had shortness of breath for the past 4 days along with worsening CHF and CKD. I had a meaningful discussion about this patient with Dr. Johnson who agrees with my assessment and the treatment plan. We feel the patient requires admission for further inpatient evaluation and treatment. The patient agrees to admission. I spoke with the on-call hospitalist who agreed to admit the patient for further management. Please refer to their dictation for further details. The patient's care was transferred in stable condition. Impression & Plan Chronic diastolic CHF (congestive heart failure), Chronic kidney disease, stage 4 (severe), SOB (shortness of breath) Discharge Plan Visit Data Chief Complaint: Shortness of Breath/Dyspnea Stated Complaint: SOB,WEAK,ABNORMAL LABS ED Provider: Albin Johnson ED Midlevel Provider: Salma Foy Discharge Problem: Chronic diastolic CHF (congestive heart failure), Chronic kidney disease, stage 4 (severe), SOB (shortness of breath) Patient Disposition: Admitted As Inpatient Condition: Good Discharge Instructions Interventions: ED Discharge Assessment Last Done: 01/18/23 21:27
[2023-01-18] MEDS ORDERED: SODIUM CHLORIDE 0.9% 250 ML IV ONE (16:41)
[2023-01-18] MEDS ORDERED: ALBUT/IPRATROP 3MG/0.5MG NEB 3 ML VIAL NEB STA (16:41)
[2023-01-18 17:01] LABS: Basophils # (auto) 0.07 K/uL (0-0.2); Eosinophils # (auto) 0.33 K/uL (0-0.50); Eosinophils % (auto) 4.7 %; Hematocrit (blood only) 31.5 % (37.0-47.0); Hemoglobin 9.8 g/dl (12.0-16.0); Immature Granulocytes # (auto) 0.03 K/uL (0.01-0.20); Immature Granulocytes % (auto) 0.4 %; Lymphocytes # (auto) 1.64 K/uL (1.2-3.4); Lymphocytes % (auto) 23.2 %; Mean Corpuscular Hemoglobin 28.6 pg (25.0-34.0); Mean Corpuscular Hgb Conc 31.1 g/dL (32.0-36.0); Mean Corpuscular Volume 91.8 fL (80.0-100.0); Mean Platelet Volume 9.5 fL (9.4-12.4); Monocytes % (auto) 7.1 %; Neutrophils # (auto) 4.49 K/uL (1.40-6.50); Neutrophils % (auto) 63.6 %; Platelet Count 233 K/uL (130-400); RDW Coefficient of Variation 16.6 % (11.5-14.5); RDW Standard Deviation 55.8 fL (36.4-46.3); Red Blood Count 3.43 M/uL (4.20-5.40); White Blood Count 7.06 K/ul (4.8-10.8)
[2023-01-18 17:05] LABS: Albumin Level 3.8 gm/dl (3.4-5.0); BUN Creatinine Ratio 20.2 (10-20); Bilirubin,Total 0.4 mg/dl (0.2-1.0); Calcium 9.2 mg/dl (8.6-10.3); Creatinine Clr Calc Pharmacy 20.7 ml/min; Est GFR (Non-African American) 13.8 ml/min; Globulin 3.9 gm/dl (2.5-4.0); Magnesium 2.9 mg/dl (1.7-2.4); Potassium 5.5 mmol/L (3.5-5.1); Total Protein 7.7 gm/dl (6.0-8.3)
[2023-01-18 17:11] LABS: Troponin I High Sensitivity 7.1 pg/ml (0-14)
[2023-01-18 17:24] LABS: Thyroid Stimulating Hormone 5.766 uIu/ml (0.300-4.500)
[2023-01-18 18:03] LABS: Influenza A virus by PCR Negative (Neg); Influenza B virus by PCR Negative (Neg); RSV by PCR Negative (Neg); SARS CoV2 RNA(COVID-19) Ceph NEGATIVE (Negative)
[2023-01-18 18:04] LABS: Partial Thromboplastin Ratio 1.1; Partial Thromboplastin Time 29.9 Seconds (21.0-31.0); Prothrombin Time 11.1 Seconds (9.0-12.0); T4 Free Thyroxine 0.93 ng/dl (0.61-1.60)
--- NOTE | 2023-01-18 19:10 | CT Scan Report ---
CT abd pelvis wo con CLINICAL HISTORY: left flank and abdominal pain TECHNIQUE: Helical axial images of the abdomen and pelvis were obtained. Automated dose lowering tech niques and/or adjustment according to patient size were utilized for this exam. This exam was perfor med without intravenous contrast. CT DOSE: 1268.17 mGy.cm COMPARISON: Comparison is made to CT abdomen pelvis 6 clinical history FINDINGS: Lower chest: Small pleural effusions are seen bilaterally with associated atelectasis. Liver: Unremarkable. No focal lesions are seen. Gallbladder and biliary tree: Patient is status post cholecystectomy. No intra- or extrahepatic bilia ry ductal dilation. Pancreas: Unremarkable, no focal lesions. Spleen: Unremarkable. Adrenals: Unremarkable. Kidneys and ureters: Perinephric stranding is noted bilaterally. Bladder: Limited evaluation due to underdistention. Reproductive organs: Unremarkable. Bowel: Unremarkable. Lymph nodes Retroperitoneal: Unremarkable. Pelvic: Unremarkable. Mesenteric: Unremarkable. Peritoneum: Normal. Vessels: Atherosclerotic calcifications are seen. Abdominal wall: Fat-containing left abdominal hernia is seen. Bones: Degenerative changes in the visualized spine. IMPRESSION: No acute abnormalities explain left flank pain, in particular no evidence of obstructive stone is see n. ACT 112: Negative or not required by law. Electronically signed by: Anthony Odell M.D. 01/18/2023 7:08 PM
--- NOTE | 2023-01-18 19:24 | Emergency Department Note ---
ED Visit Note I was consulted by the Advanced Practice Provider. I saw the patient personally and performed a substantive portion of the visit. This includes aspects of the HPI, MDM, diagnostic interpretations, and disposition/plan. Patient presents with weight gain and shortness of breath. She appears to be in CHF, she does have known renal disease. Hospitalization is indicated. .
--- NOTE | 2023-01-18 20:28 | History & Physical Report ---
Date of Service January 18, 2023 Assessment & Plan (1) Dyspnea: Plan: 62yo female with multiple medical comorbidities including CKD-V, HFpEF (last echo 02/05/21 with EF of 60-65%, mild concentric LVH and moderate aortic sclerosis, diastolic dysfunction Grade II) presenting with one month of progressive STUBBS, orthopnea and edema as well as 20# weight gain. Patient was briefly on HD for 5 weeks following complications of a renal biopsy. She has been off HD for approximately 1 month. She is compliant with her Lasix 40mg po daily and reports adequate urine output. Suspect volume overload likely secondary to progression of CKD, possible CHF. -Admit to medical with telemetry -Supplemental O2 as needed -Awaiting UA - patient has had nephrotic range proteinuria in the past due to diabetic nephropathy -Lasix 40mg IV BID -Monitor I/Os -Monitor daily weights -Monitor BID BMP to assess electrolytes and renal function with diursis -Consider Nephrology consultation -Will hold Losartan for now -Check 2D echo (2) Chronic kidney disease, stage 4 (severe): Plan: Patient with elevation of BUN=48, Cr of 3.3. Mild hyperkalemia with K=5.5 - no EKG changes -Lasix diuresis as above with careful monitoring of electrolytes and renal function -Holding Losartan -Avoid nephrotoxic agents -Renal dosing where needed -Consider Nephrology consultation if Cr worsens with diuresis (3) PAD (peripheral artery disease): Plan: Chronic. Stable. Patient follows with Dr. Cr - currently discussing possible stent vs bypass on LLE. She denies pain or skin ulceration at present. -ASA 81mg po daily -Crestor 40mg po daily (4) Chronic heart failure with preserved ejection fraction (HFpEF): Plan: Last echo with results as above - Grade II diastolic dysfunction, preserved EF 60-65% and aortic sclerosis -Repeat 2D echo -Diuresis as above with Lasix 40mg IV BID -Daily weights, I/Os and chemistry BID (5) GERD (gastroesophageal reflux disease): Plan: Chronic. Stable -Protonix 40mg po daily (6) Diabetes mellitus type 2 with complications: Plan: Improved control from prior. Last GgxL2S=4.9 on 12/03/22. -Continue Jardiance 25mg po daily -Lantus 8u BID -ISS -Goal blood sugar 110 - 140 -Continue Neurontin for neuropathy (7) Hypertension: Plan: Blood pressure mildly elevated at present -Amlodipine 5mg po qAM -Metoprolol 25mg po BID -Holding Losartan History of Present Illness Chief Complaint: shortness of breath, edema Primary Care Provider: DO Jeanne Brody Calvin is a pleasant 62yo female with history of CKD-V, CHF, DM and HTN presenting with shortness of breath and edema. Patient reports progressive dyspnea on exertion over the last month as well as a 20# unintentional weight gain and worsening LE edema and abdominal distention. She also notes worsening orthopnea and a dry cough mostly with laying down. Also with some puffiness of her face. Patient had a renal biopsy performed on 10/18/22 to workup her progressive CKD which revealed diabetic nephropathy. Patient developed a hematoma following the kidney biopsy and had to be placed on short term HD. She was dialyzed three times weekly for approximately 5 weeks through a right chest perm-cath. She has since been off dialysis for the last month. She follows with Nephrology - Dr. Mei. Patient was previously on Lasix 80mg po q //. She is now on 40mg po daily. She reports good urine output. No hematuria or straining. She does report occasional foamy urine. Patient additionally reports alternating constipation/diarrhea for years - no melena or hematochezia. She has had colonoscopies in the past. Occasional headaches. She also reports difficulty with ambulation since having her right LE prosthetic revised. She reports imbalance as well as some pain in her right hip. She is due to have the prosthetic adjusted early next week. She denies fever, chills, chest pain, palpitations, abdominal pain, nausea or vomiting. NO additional complaints at this time. Allergies Allergy/AdvReac Type Severity Reaction Status Date / Time daptomycin Allergy Severe rhabdomyoly Verified 01/18/23 17:38 sis amoxicillin Allergy Intermediate HIVES & N/V Verified 01/18/23 17:38 clavulanic acid Allergy Intermediate HIVES & N/V Verified 01/18/23 17:38 vancomycin Allergy Intermediate pruritus Verified 01/18/23 17:38 sulfamethoxazole AdvReac Severe renal Verified 01/18/23 17:38 [From Bactrim] failure trimethoprim [From Bactrim] AdvReac Severe renal Verified 01/18/23 17:38 failure lisinopril AdvReac Intermediate NAUSEA/VOMI Verified 01/18/23 17:38 TING omeprazole AdvReac Intermediate Nausea Verified 01/18/23 17:38 Home Medications Medication Instructions Recorded Confirmed Type acetaminophen 650 mg 650 mg PO Q8H PRN Pain 10/07/20 01/18/23 History tablet,extended release docusate sodium 100 mg capsule 100 mg PO DAILY PRN Constipation 11/10/21 01/18/23 History (Stool Softener) triamcinolone acetonide 0.5 % 1 applic topical BID PRN skin 11/10/21 01/18/23 Rx topical cream irritation #60 grams Lactobacillus acidoph-L.bulgaricus 1 tab PO BID #180 tabs 11/20/21 01/18/23 Rx 1 million cell tablet (Floranex) loperamide 2 mg capsule (Imodium 2 mg PO Q6H PRN Diarrhea 12/13/21 01/18/23 History A-D) polyethylene glycol 3350 17 17 g PO DAILY PRN Constipation 12/13/21 01/18/23 History gram/dose oral powder (Miralax) Prosthetic Socket replacement #1 ea 08/13/22 01/17/23 Rx aspirin 81 mg tablet,delayed 81 mg PO DAILY 11/15/22 01/18/23 History release (Adult Low Dose Aspirin) diphenhydramine HCl 25 mg tablet 25 mg PO HS PRN Sleep 11/15/22 01/18/23 History (Sleep Aid (diphenhydramine)) empagliflozin 25 mg tablet 25 mg PO DAILY #90 tabs 12/25/22 01/18/23 Rx (Jardiance) amlodipine 10 mg tablet 5 mg PO QAM #90 tabs 12/28/22 01/18/23 Rx furosemide 40 mg tablet 40 mg PO QAM #90 tabs 12/28/22 01/18/23 Rx gabapentin 100 mg capsule 100 mg PO TID 90 days #270 caps 12/28/22 01/18/23 Rx losartan 50 mg tablet 50 mg PO QAM #90 tabs 12/28/22 01/18/23 Rx metoprolol tartrate 25 mg tablet 25 mg PO BID #180 tabs 12/28/22 01/18/23 Rx omeprazole 20 mg capsule,delayed 20 mg PO DAILY 90 days #90 caps 12/28/22 01/18/23 Rx release rosuvastatin 40 mg tablet 40 mg PO QAM #90 tabs 12/28/22 01/18/23 Rx trazodone 50 mg tablet 25 mg PO HS #30 tabs 12/28/22 01/18/23 Rx tramadol 50 mg tablet 50 mg PO BID PRN pain #60 tabs 01/02/23 01/18/23 Rx Past Med/Surg History Medical History (Updated 01/18/23 @ 22:14 by Lyudmila Martinez DO) Anemia of chronic disease Charcot's arthropathy Charcot's joint of foot due to diabetes Chronic back pain Chronic constipation Chronic diastolic CHF (congestive heart failure) Chronic kidney disease, stage 4 (severe) Chronic osteomyelitis Chronic venous insufficiency Clostridium difficile colitis history (~11/2016) -- treated no problems since. Diabetes mellitus type 2 with complications Diabetic neuropathy Diabetic ulcer of left great toe Dyslipidemia GERD (gastroesophageal reflux disease) Hypertension Morbid obesity BMI 45.7 Non-traumatic rhabdomyolysis (02/2021) Osteoarthritis PAD (peripheral artery disease) S/P right lower extremity angiogram, mechanical thrombectomy of pre-existing superficial femoral artery stent usinh Vidal [place] Omni catheter, balloon angioplasty of the superficial femoral artery stent using 5 X 200 mm [place] balloon, balloon angioplasty of the superficial femoral artery 6 X 250 mm IN.PACT drug coated balloon, stent angioplasty of the superficial femoral artery using 5 X 150 mm INOVA bare metal stent, and debridement of the right lateral foot on 11/14/[address] Lomeli. S/P bilateral SFA stenting Postmenopausal bleeding Proteinuria Sleep apnea no cpap Vitamin D deficiency Surgical History H/O vascular surgery (01/2020) LT SFA atherectomy, MARSHA w/ supera stenting History of bilateral cataract extraction History of cholecystectomy History of esophagogastroduodenoscopy (EGD) History of lumpectomy of right breast benign History of tooth extraction History of vascular surgery (04/20/22) L SFA Angio Extremity Unilateral Fem Pop Balloon Atherectomy S/P angioplasty (06/2019) LT SFA angioplastly with MARSHA S/P angioplasty (10/2019) RT SFA atherectomy/angioplasty w/ MARSHA S/P epidural steroid injection S/P femoral-popliteal bypass surgery S/P vascular surgery (11/2020) R fem-pop [id number] w/ stent and angioplasty Status post amputation of toe of right foot (11/14/20) amputation metatarsal w/ toe, R 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) Status post tonsillectomy Status post tubal ligation Family History Mother Rheumatoid arthritis Father Emphysema of lung Peripheral artery disease Aunt Breast cancer MOMS SIDE Colorectal cancer MOMS SIDE Myocardial infarction MOMS SIDE Brother Prostate cancer Sister COPD (chronic obstructive pulmonary disease) Other No family history of adverse response to anesthesia Denies family history of Ovarian cancer CAD (coronary atherosclerotic disease) Social History Smoking Status: Former smoker Tobacco Type: Cigarettes packs per day: 2; Second Hand Exposure: No; Do You Dip or Chew Tobacco: No; Hx Alcohol Use: No Hx Substance Use: No Preferred Language: Malay Communication Ability: Effective Visual Impairment: No Limitations Hearing Ability: Normal Administrative Resources Associate Required: No Beliefs That Will Affect Care: None marital status: Current Living Situation: Spouse Current Living Situation Comment: lives with and son current occupational status: disabled How many Children do You have: 1 other: previous worked at [employer] Feels Safe at Home: Yes Childhood Exposure to Second-Hand Smoke: Yes (father was a heavy smoker ) Diet: regular caffeine: No during the past year weight has: remained stable Dental Care, Regularly: No Physical Activity Frequency: Does not Exercise Seatbelt Use: always Sunscreen Use: No Assistive Devices: Prosthesis and Scooter/Electric Scooter Review of Systems Review of Systems: All systems reviewed & are unremarkable except as noted in HPI & below Physical Exam Physical Exam: General: patient resting comfortably, NAD, non-toxic in appearance, AA&O x 4 Skin: warm, dry, intact, no rashes or lesions HEENT: NC/AT, PERRL, EOMI, anicteric sclera, conjunctiva without injection, external ear normal to inspection and nontender, nares patent, moist mucus membranes, dentition intact, no oropharyngeal lesions, neck supple, trachea midline, no LAD, no thyromegaly, no JVD Heart: +S1/S2, regular, no m/r/g Lungs: equal air entry bilaterally, crackles in bilateral lung bases, no rhonchi or wheezes Abd: +BS, soft, NT/ND, no masses/organomegaly/ascites, abdominal wall edema Ext: s/p right BKA with prosthetic in place, LLE with 2+ pitting edema into thigh Neuro: nonfocal, patient AA&O x 4, speech intact, no facial droop, moving all extremities on command with equal strength 5/5 Results & Data Results & Data Vital Signs (Past 12 Hours) Vital Signs Temp Pulse Resp BP Pulse Ox O2 Del Method 01/18/23 18:35 90 01/18/23 18:35 140/46 L 01/18/23 17:57 72 17 93 01/18/23 16:30 128/60 01/18/23 16:03 Room Air 01/18/23 16:32 64 01/18/23 16:03 Room Air 01/18/23 15:59 36.8 C 65 18 133/47 L 91 Room Air Laboratory Results Laboratory Results WBC 7.06 K/ul (4.8-10.8) 01/18/23 16:32 RBC 3.43 M/uL (4.20-5.40) L 01/18/23 16:32 Hgb 9.8 g/dl (12.0-16.0) L 01/18/23 16:32 Hct 31.5 % (37.0-47.0) L 01/18/23 16:32 MCV 91.8 fL (80.0-100.0) 01/18/23 16:32 MCH 28.6 pg (25.0-34.0) 01/18/23 16:32 MCHC 31.1 g/dL (32.0-36.0) L 01/18/23 16:32 RDW Std Deviation 55.8 fL (36.4-46.3) H 01/18/23 16:32 RDW Coeff of Adelina 16.6 % (11.5-14.5) H 01/18/23 16:32 Plt Count 233 K/uL (130-400) 01/18/23 16:32 MPV 9.5 fL (9.4-12.4) 01/18/23 16:32 Immature Gran % (Auto) 0.4 % 01/18/23 16:32 Neut % (Auto) 63.6 % 01/18/23 16:32 Lymph % (Auto) 23.2 % 01/18/23 16:32 Cassia % (Auto) 7.1 % 01/18/23 16:32 Eos % (Auto) 4.7 % 01/18/23 16:32 Baso % (Auto) 1.0 % 01/18/23 16:32 Neut # (Auto) 4.49 K/uL (1.40-6.50) 01/18/23 16:32 Lymph # (Auto) 1.64 K/uL (1.2-3.4) 01/18/23 16:32 Cassia # (Auto) 0.50 K/uL (0.11-0.59) 01/18/23 16:32 Eos # (Auto) 0.33 K/uL (0-0.50) 01/18/23 16:32 Baso # (Auto) 0.07 K/uL (0-0.2) 01/18/23 16:32 Immature Gran # (Auto) 0.03 K/uL (0.01-0.20) 01/18/23 16:32 PT 11.1 Seconds (9.0-12.0) 01/18/23 16:32 INR 1.0 (0.9-1.1) 01/18/23 16:32 APTT 29.9 Seconds (21.0-31.0) 01/18/23 16:32 PTT Ratio 1.1 01/18/23 16:32 Sodium 138 mmol/L (136-145) 01/18/23 16:32 Potassium 5.5 mmol/L (3.5-5.1) H 01/18/23 16:32 Chloride 107 mmol/L (98-107) 01/18/23 16:32 Carbon Dioxide 24 mmol/L (21-32) 01/18/23 16:32 Anion Gap 7 (3-11) 01/18/23 16:32 BUN 68 mg/dl (6-23) H 01/18/23 16:32 Creatinine 3.37 mg/dl (0.6-1.2) H 01/18/23 16:32 Est Cr Clr Drug Dosing 20.7 ml/min 01/18/23 16:32 Est GFR ( Amer) 16.0 ml/min 01/18/23 16:32 Est GFR (Non-Af Amer) 13.8 ml/min 01/18/23 16:32 BUN/Creatinine Ratio 20.2 (10-20) H 01/18/23 16:32 Glucose 99 mg/dl (70-99(Fasting)) 01/18/23 16:32 Calcium 9.2 mg/dl (8.6-10.3) 01/18/23 16:32 Magnesium 2.9 mg/dl (1.7-2.4) H 01/18/23 16:32 Total Bilirubin 0.4 mg/dl (0.2-1.0) 01/18/23 16:32 AST 13 U/L (13-39) 01/18/23 16:32 ALT 16 U/L (7-52) 01/18/23 16:32 Alkaline Phosphatase 111 U/L (34-104) H 01/18/23 16:32 Troponin I High Sens 7.1 pg/ml (0-14) 01/18/23 16:32 B-Natriuretic Peptide 143 pg/ml (0-100) H 01/18/23 16:32 Total Protein 7.7 gm/dl (6.0-8.3) 01/18/23 16:32 Albumin 3.8 gm/dl (3.4-5.0) 01/18/23 16:32 Globulin 3.9 gm/dl (2.5-4.0) 01/18/23 16:32 Albumin/Globulin Ratio 1.0 (0.9-2) 01/18/23 16:32 TSH 5.766 uIu/ml (0.300-4.500) H 01/18/23 16:32 Free T4 0.93 ng/dl (0.61-1.60) 01/18/23 16:32 SARS-CoV-2 (PCR) NEGATIVE (Negative) 01/18/23 16:53 Influenza Type A (PCR) Negative (Neg) 01/18/23 16:53 Influenza Type B (PCR) Negative (Neg) 01/18/23 16:53 RSV (RT-PCR) Negative (Neg) 01/18/23 16:53 Impressions Abdomen/Pelvis CT 01/18/23 16:41 CT abd pelvis wo con CLINICAL HISTORY: left flank and abdominal pain TECHNIQUE: Helical axial images of the abdomen and pelvis were obtained. Automated dose lowering techniques and/or adjustment according to patient size were utilized for this exam. This exam was performed without intravenous contrast. CT DOSE: 1268.17 mGy.cm COMPARISON: Comparison is made to CT abdomen pelvis 6 clinical history FINDINGS: Lower chest: Small pleural effusions are seen bilaterally with associated atelectasis. Liver: Unremarkable. No focal lesions are seen. Gallbladder and biliary tree: Patient is status post cholecystectomy. No intra- or extrahepatic biliary ductal dilation. Pancreas: Unremarkable, no focal lesions. Spleen: Unremarkable. Adrenals: Unremarkable. Kidneys and ureters: Perinephric stranding is noted bilaterally. Bladder: Limited evaluation due to underdistention. Reproductive organs: Unremarkable. Bowel: Unremarkable. Lymph nodes Retroperitoneal: Unremarkable. Pelvic: Unremarkable. Mesenteric: Unremarkable. Peritoneum: Normal. Vessels: Atherosclerotic calcifications are seen. Abdominal wall: Fat-containing left abdominal hernia is seen. Bones: Degenerative changes in the visualized spine. IMPRESSION: No acute abnormalities explain left flank pain, in particular no evidence of obstructive stone is seen. ACT 112: Negative or not required by law. Electronically signed by: Anthony Odell M.D. 01/18/2023 7:08 PM PG Care Time/CCT Total # of Minutes Spent Total Time Spent with Patient: Total time spent is greater than 50% in coordination of care (as documented) at patient's floor/unit and/or counseling patient: Coding Level of Care Code 14210 INT INP/OBS CARE 3/75MIN Diagnoses Dyspnea R06.00 Chronic kidney disease, stage 4 (severe) N18.4 PAD (peripheral artery disease) I73.9 Chronic heart failure with preserved ejection fraction (HFpEF) I50.32 GERD (gastroesophageal reflux disease) K21.9 Diabetes mellitus type 2 with complications E11.8 Hypertension I10
[2023-01-18] MEDS ORDERED: CARBOHYDRATES FOR HYPOGLYCEMIA PO PRN (21:27)
[2023-01-18] MEDS ORDERED: GLUCOSE 40% GEL 15 GM TUBE PO PRN (21:27)
[2023-01-18] MEDS ORDERED: POLYETHYLENE (MIRALAX) 17 GM PACK PO PRN (21:27)
[2023-01-18] MEDS ORDERED: DEXTROSE 50% 50 ML SYRINGE IV PRN (21:27)
[2023-01-18] MEDS ORDERED: ONDANSETRON INJ 2 MG/ML 2 ML VIAL IV PRN (21:27)
[2023-01-18] MEDS ORDERED: GLUCAGON FOR INJ 1 MG VIAL SQ PRN (21:27)
[2023-01-18] MEDS ORDERED: ACETAMINOPHEN 325 MG TAB PO PRN (21:27)
[2023-01-18] MEDS ORDERED: DOCUSATE SODIUM 100 MG CAP PO PRN (21:27)
[2023-01-18] MEDS ORDERED: GLUCOSE 10 TAB/TUBE PO PRN (21:27)
[2023-01-18] MEDS ORDERED: diphenhydrAMINE Capsule 25 MG CAP PO PRN (22:27)
[2023-01-18] MEDS: LANTUS PER UNIT CHARGE SQ SCH (22:38)
[2023-01-18] MEDS: GABAPENTIN 100 MG CAP PO SCH (22:40)
[2023-01-18] MEDS: METOPROLOL TARTRATE 25 MG TAB PO SCH (22:42)
[2023-01-18] MEDS: traZODone HCL 50 MG TAB PO SCH (22:42)
[2023-01-18] MEDS: INSULIN ASPART PER UNIT CHARGE SC SCH (23:38)
[2023-01-19 00:21] LABS: Appearance Urine Clear (Clear); Bacteria Urine Automated Negative (Negative); Bilirubin Urine Negative (Negative); Blood Urine Trace (Negative); Cast Urine Automated 0 /lpf (0-5); Color Urine Yellow; Epithelial Cell Urine Auto 20-30 /lpf (0-5); Glucose Urine UA Negative (Negative); Ketones Urine Negative (Negative); Leukocyte Esterase Urine Negative (Negative); Nitrite Urine Negative (Negative); Protein Urine 3+ (Negative); RBC Urine Automated 0-4 /hpf (0-4); Specific Gravity Urine 1.012 (1.000-1.030); Urobilinogen Urine Negative (Negative); pH Urine 6.5 (4.5-7.5)
[2023-01-19] MEDS: traMADol HCL 50 MG TABLET PO PRN ×3 (00:33→18:25)
[2023-01-19 06:05] LABS: Hematocrit (blood only) 28.9 % (37.0-47.0); Mean Corpuscular Hemoglobin 28.1 pg (25.0-34.0); Mean Corpuscular Hgb Conc 31.1 g/dL (32.0-36.0); Mean Corpuscular Volume 90.3 fL (80.0-100.0); Mean Platelet Volume 9.5 fL (9.4-12.4); Platelet Count 217 K/uL (130-400); RDW Coefficient of Variation 16.5 % (11.5-14.5); RDW Standard Deviation 54.4 fL (36.4-46.3); White Blood Count 6.97 K/ul (4.8-10.8)
[2023-01-19 06:20] LABS: BUN Creatinine Ratio 21.1 (10-20); Calcium 8.8 mg/dl (8.6-10.3); Creatinine Clr Calc Pharmacy 21.1 ml/min; Est GFR (African American) 16.6 ml/min; Est GFR (Non-African American) 14.3 ml/min; Potassium 4.8 mmol/L (3.5-5.1)
--- NOTE | 2023-01-19 07:11 | Hospitalist Progress Note ---
Date of Service January 19, 2023 Assessment & Plan (1) Dyspnea: Plan: 62yo female with multiple medical comorbidities including CKD-V, HFpEF (last echo 02/05/21 with EF of 60-65%, mild concentric LVH and moderate aortic sclerosis, diastolic dysfunction Grade II) presenting with one month of progressive STUBBS, orthopnea and edema as well as 20# weight gain. Patient was briefly on HD for 5 weeks following complications of a renal biopsy. She has been off HD for approximately 1 month. She is compliant with her Lasix 40mg po daily and reports adequate urine output. Suspect volume overload likely secondary to progression of CKD, possible CHF. Hypervolemia in the setting of HFpEF -improvement in dyspnea with dieresis, stable of room air - repeat echo pending -Lasix 40mg IV BID on admission, hold on further at present due to increased creatine as per below -Monitor I/Os -Monitor daily weights -Monitor BID BMP to assess electrolytes and renal function with diuresis ELROY on Stage 4 for CKD Patient with elevation of BUN=48, Cr of 3.3. admission Mild hyperkalemia with K=5.5 - no EKG changes-> down to 3.27 initially with diuresis, up to 3.4 this afternoon -Hold on further diuresis due to increased creatinine -Holding Losartan -Avoid nephrotoxic agents -Renal dosing where needed - Nephrology consultation appreciate recommendations PAD Chronic. Stable. Patient follows with Dr. Cr - currently discussing possible stent vs bypass on LLE. She denies pain or skin ulceration at present. -ASA 81mg po daily -Crestor 40mg po daily GERD Chronic. Stable -Protonix 40mg po daily DM2 Improved control from prior. Last ZksL5C=0.9 on 12/03/22. -Continue Jardiance 25mg po daily -Lantus 8u BID -ISS -Goal blood sugar 110 - 140 -Continue Neurontin for neuropathy HTN Blood pressure mildly elevated -Amlodipine 5mg po qAM -Metoprolol 25mg po BID -Holding Losartan (2) Chronic kidney disease, stage 4 (severe): (3) PAD (peripheral artery disease): (4) Chronic heart failure with preserved ejection fraction (HFpEF): (5) GERD (gastroesophageal reflux disease): (6) Diabetes mellitus type 2 with complications: (7) Hypertension: Admission and Anticipated Discharge Date Admission Date: January 18, 2023 Supervising Physician Co-Signing Physician Notes I personally examined the patient and verified hernandez points of history and exam, discussed case, and agree with decision making and plan documented by Dr. Bowman. Patient feeling much better this morning. Continue diuresis and monitoring of kidney function. Compression stocking ordered for left lower extremity. Subjective Jeanne was doing well this morning. Sitting in chair eating breakfast. States that both her shortness of breath and LE edema have improved from yesterday. No events overnight and no complaints this morning. Does note that she has an appointment for adjustment of her prosthetic and with Dr. Le on Saturday. Review of Systems Review of Systems: As per above Physical Exam 2 Physical Exam: Constitutional: well-appearing, no acute distress HEENT: NCAT, no conjunctival injection CV: regular rhythm, no murmur appreciated, extremities well-perfused, 1+ pitting edema to knee LE left, right BKA Resp: CTABL, no wheezes/rales/rhonchi appreciated, no increased work of breathing MSK: no gross deformities appreciated Skin: warm, dry, no rash appreciated Neuro: alert, oriented, no focal neurologic deficit appreciated Results & Data Results & Data Vital Signs (Past 12 Hours) Vital Signs Temp Pulse Pulse Pulse Resp BP Pulse Ox 01/19/23 01:24 67 01/19/23 01:24 36.7 C 66 18 162/62 H 96 01/19/23 01:15 01/19/23 00:00 65 18 162/79 H 95 01/18/23 22:40 77 18 157/58 H 92 01/18/23 21:03 77 16 148/56 H 94 O2 Del Method 01/19/23 01:24 01/19/23 01:24 Room Air 01/19/23 01:15 Room Air 01/19/23 00:00 Room Air 01/18/23 22:40 Room Air 01/18/23 21:03 Room Air Resident Activity Tracking Resident Involvement: Resident Care Provided Care Provided: Adult Hospital Medicine
[2023-01-19 07:38] LABS: Magnesium 2.7 mg/dl (1.7-2.4)
[2023-01-19] MEDS: ROSUVASTATIN CALCIUM 20 MG TAB PO SCH (07:49)
[2023-01-19] MEDS: ASPIRIN 81 MG ECTAB PO SCH (07:49)
[2023-01-19] MEDS: amLODIPine BESYLATE 5 MG TAB PO SCH (07:50)
[2023-01-19] MEDS: EMPAGLIFLOZIN 25 MG TAB PO SCH (07:50)
[2023-01-19] MEDS: PANTOprazole 40 MG TAB PO SCH (07:50)
[2023-01-19] MEDS: INSULIN ASPART PER UNIT CHARGE SC SCH ×4 (08:56→20:46)
[2023-01-19] MEDS: METOPROLOL TARTRATE 25 MG TAB PO SCH ×2 (08:57→20:47)
[2023-01-19] MEDS: GABAPENTIN 100 MG CAP PO SCH ×3 (08:57→20:49)
[2023-01-19] MEDS: LANTUS PER UNIT CHARGE SQ SCH ×2 (08:57→20:47)
[2023-01-19] MEDS ORDERED: FUROSEMIDE 40 MG/4 ML VIAL IV SCH (09:00)
--- NOTE | 2023-01-19 11:24 | XCELERA ---
[id number] [id number]
--- NOTE | 2023-01-19 11:35 | Electrocardiogram Report ---
Test Reason : Blood Pressure : / mmHG Vent. Rate : 071 BPM Atrial Rate : 071 BPM P-R Int : 214 ms QRS Dur : 112 ms QT Int : 432 ms P-R-T Axes : 055 -35 036 degrees QTc Int : 469 ms Sinus rhythm with 1st degree A-V block Left axis deviation Low voltage QRS Incomplete right bundle branch block Cannot rule out Anteroseptal infarct , age undetermined Abnormal ECG When compared with ECG of 30-JAN-2021 15:27, AR interval has increased Minimal criteria for Anteroseptal infarct are now Present Confirmed by Billy August ([id number]) on 01/19/2023 11:34:56 AM Referred By: REFERRED SELF Confirmed By:Billy August
[2023-01-19 12:46] LABS: Calcium 9.2 mg/dl (8.6-10.3); Creatinine Clr Calc Pharmacy 20.9 ml/min; Est GFR (African American) 16.4 ml/min; Est GFR (Non-African American) 14.1 ml/min
[2023-01-19 16:57] LABS: BUN Creatinine Ratio 20.2 (10-20); Calcium 9.2 mg/dl (8.6-10.3); Creatinine Clr Calc Pharmacy 20.3 ml/min; Est GFR (African American) 15.8 ml/min; Est GFR (Non-African American) 13.6 ml/min; Potassium 5.4 mmol/L (3.5-5.1)
[2023-01-19] MEDS ORDERED: FUROSEMIDE INJ 20 MG/2 ML VIAL IV SCH (17:00)
[2023-01-19] MEDS: traZODone HCL 50 MG TAB PO SCH (20:49)
--- NOTE | 2023-01-20 06:36 | Hospitalist Progress Note ---
Date of Service January 20, 2023 Assessment & Plan (1) Dyspnea: Plan: 62yo female with multiple medical comorbidities including CKD-V, HFpEF (last echo 02/05/21 with EF of 60-65%, mild concentric LVH and moderate aortic sclerosis, diastolic dysfunction Grade II) presenting with one month of progressive STUBBS, orthopnea and edema as well as 20# weight gain. Patient was briefly on HD for 5 weeks following complications of a renal biopsy. She has been off HD for approximately 1 month. She is compliant with her Lasix 40mg po daily and reports adequate urine output. Suspect volume overload likely secondary to progression of CKD, possible CHF. Hypervolemia in the setting of HFpEF -improvement in dyspnea with dieresis, stable of room air - repeat echo pending -Lasix 40mg IV BID on admission, hold on further at present due to increased creatine as per below -Monitor I/Os -Monitor daily weights -Monitor BID BMP to assess electrolytes and renal function with diuresis ELROY on Stage 4 for CKD Patient with elevation of BUN=48, Cr of 3.3. admission Mild hyperkalemia with K=5.5 - no EKG changes-> down to 3.27 initially with diuresis, up to 3.4 this afternoon -Hold on further diuresis due to increased creatinine -Holding Losartan -Avoid nephrotoxic agents -Renal dosing where needed - Nephrology consultation appreciate recommendations PAD Chronic. Stable. Patient follows with Dr. Cr - currently discussing possible stent vs bypass on LLE. She denies pain or skin ulceration at present. -ASA 81mg po daily -Crestor 40mg po daily GERD Chronic. Stable -Protonix 40mg po daily DM2 Improved control from prior. Last VdvA0A=2.9 on 12/03/22. -Continue Jardiance 25mg po daily -Lantus 8u BID -ISS -Goal blood sugar 110 - 140 -Continue Neurontin for neuropathy HTN Blood pressure mildly elevated -Amlodipine 5mg po qAM -Metoprolol 25mg po BID -Holding Losartan (2) Chronic kidney disease, stage 4 (severe): (3) PAD (peripheral artery disease): (4) Chronic heart failure with preserved ejection fraction (HFpEF): (5) GERD (gastroesophageal reflux disease): (6) Diabetes mellitus type 2 with complications: (7) Hypertension: Admission and Anticipated Discharge Date Admission Date: January 18, 2023 Saran Angel was doing well this morning. States that she has seen as significant improvement in both her dyspnea and LE edema. Again notes that she has 2 doctors appointments scheduled for tomorrow, the first of which bring at [address] Le's office on [address]. Review of Systems Review of Systems: As per above Physical Exam Physical Exam: Constitutional: well-appearing, no acute distress HEENT: NCAT, no conjunctival injection CV: regular rhythm, no murmur appreciated, extremities well-perfused, 1+ pitting edema to mid rosenberg LE left, right BKA Resp: CTABL, no wheezes/rales/rhonchi appreciated, no increased work of breathing MSK: no gross deformities appreciated Skin: warm, dry, no rash appreciated Neuro: alert, oriented, no focal neurologic deficit appreciated Results & Data Results & Data Vital Signs (Past 12 Hours) Vital Signs Temp Pulse Pulse Resp BP Pulse Ox O2 Del Method 01/20/23 03:00 36.7 C 64 18 130/61 93 Room Air 01/19/23 21:57 67 01/19/23 23:55 36.9 C 64 16 122/70 95 Room Air 01/19/23 20:30 Room Air 01/19/23 19:16 37.2 C 67 19 166/63 H 95 Room Air Resident Activity Tracking Resident Involvement: Resident Care Provided Care Provided: Adult Hospital Medicine
[2023-01-20] MEDS: traMADol HCL 50 MG TABLET PO PRN (07:18)
[2023-01-20] MEDS: GABAPENTIN 100 MG CAP PO SCH ×2 (07:19→12:52)
[2023-01-20] MEDS: METOPROLOL TARTRATE 25 MG TAB PO SCH (07:19)
[2023-01-20] MEDS: PANTOprazole 40 MG TAB PO SCH (07:20)
[2023-01-20] MEDS: EMPAGLIFLOZIN 25 MG TAB PO SCH (07:20)
[2023-01-20] MEDS: ASPIRIN 81 MG ECTAB PO SCH (07:21)
[2023-01-20] MEDS: ROSUVASTATIN CALCIUM 20 MG TAB PO SCH (07:21)
[2023-01-20] MEDS: amLODIPine BESYLATE 5 MG TAB PO SCH (07:21)
[2023-01-20] MEDS: LANTUS PER UNIT CHARGE SQ SCH (08:33)
[2023-01-20] MEDS: INSULIN ASPART PER UNIT CHARGE SC SCH ×3 (08:33→17:59)
[2023-01-20 08:37] LABS: Basophils # (auto) 0.08 K/uL (0-0.2); Basophils % (auto) 1.1 %; Eosinophils # (auto) 0.38 K/uL (0-0.50); Eosinophils % (auto) 5.1 %; Hematocrit (blood only) 29.3 % (37.0-47.0); Hemoglobin 9.3 g/dl (12.0-16.0); Immature Granulocytes # (auto) 0.05 K/uL (0.01-0.20); Immature Granulocytes % (auto) 0.7 %; Lymphocytes # (auto) 1.86 K/uL (1.2-3.4); Lymphocytes % (auto) 24.9 %; Mean Corpuscular Hemoglobin 28.5 pg (25.0-34.0); Mean Corpuscular Hgb Conc 31.7 g/dL (32.0-36.0); Mean Corpuscular Volume 89.9 fL (80.0-100.0); Mean Platelet Volume 9.7 fL (9.4-12.4); Monocytes # (auto) 0.67 K/uL (0.11-0.59); Neutrophils # (auto) 4.42 K/uL (1.40-6.50); Neutrophils % (auto) 59.2 %; Nucleated RBC # (auto) 0.02 K/uL (0-0.12); Nucleated RBC % (auto) 0.3 %; Platelet Count 241 K/uL (130-400); RDW Coefficient of Variation 16.5 % (11.5-14.5); RDW Standard Deviation 53.6 fL (36.4-46.3); Red Blood Count 3.26 M/uL (4.20-5.40); White Blood Count 7.46 K/ul (4.8-10.8)
[2023-01-20 08:55] LABS: BUN Creatinine Ratio 19.6 (10-20); Calcium 9.2 mg/dl (8.6-10.3); Creatinine Clr Calc Pharmacy 19.9 ml/min; Est GFR (African American) 15.7 ml/min; Est GFR (Non-African American) 13.5 ml/min; Magnesium 2.7 mg/dl (1.7-2.4); Potassium 4.7 mmol/L (3.5-5.1)
--- NOTE | 2023-01-20 10:49 | Nephrology Consultation ---
Date of Consultation January 20, 2023 Assessment & Plan (1) Chronic kidney disease, stage 4 (severe): * Baseline Cr 2.5-3.0 * 10/30 chicken ranch kidney biopsy - DKD, 50% IFTA * Electrolyte balance is acceptable. No acute indication for HD at this time * Will benefit from AVF creation once stable in outpatient setting * Monitor PRP (2) Congestive heart failure: * 01/30 Echo shows LVEF 60-65% w/ mild MR * Clinically suspect acute CHF related to reduction in diuretic and liberal sodium intake * Discussed 1500 mg/day NaCl restricted diet. Will request dietitian consultation for low Na diet education as well * Continue Furosemide 40 mg IV BID. Monitor UO, weight, PRP * When transition to oral loop diuretic indicated, recommend Bumex 2 mg daily (improved bioavailability over Furosemide) (3) Anemia: * Will order iron studies w/ am labs * Monitor H&H History of Present Illness Reason for Consultation: ELROY/CKD, CHF Attending Physician: Eunice Blackwell DO History of Present Illness Mrs. Simpson is a 62 year old white female who is seen at the request of [facility] for evaluation of ELROY/CKD, CHF. Information for the HPI is obtained from direct patient interview and review of the EMR. HPI is summarized as follows: Mrs. Simpson has CKD stage G4/A3 (advanced renal impairment). Baseline Cr has risen to 3.0 w/ EGFR 15.4 cc/min. Urinalysis has been + for protein. 10/30 chicken ranch kidney biopsy revealed DKD w/ 50% IFTA. Biopsy was complicated by perinephric hematoma and worsening renal function requiring [employer]. Patient dialyzed via IJ TCC at [facility] until 11/19/22. UO improved and Cr returned to baseline 1.3. TCC was removed. Diuretic dose had been reduced to Furosemide 40 mg po daily. Patient cooks for herself. She eats mostly canned vegetables and boxed macaroni w/ cheese. Since stopping HD her weight has risen 20 lbs (EDW 108 kg, 237 lbs) and she has developed progressive dyspnea. She was admitted to [facility] last evening w/ CHF requiring IV diuretic therapy. She is currently receiving Lasix 40 mg IV BID and reports brisk UO. PMH: DKD, AODM, HTN, GERD, ALLY (no cpap) longstanding h/o tobacco use, PVD s/p R BKA 2020, chicken ranch kidney biopsy 10/30 Allergies Allergy/AdvReac Type Severity Reaction Status Date / Time daptomycin Allergy Severe rhabdomyoly Verified 01/18/23 17:38 sis amoxicillin Allergy Intermediate HIVES & N/V Verified 01/18/23 17:38 clavulanic acid Allergy Intermediate HIVES & N/V Verified 01/18/23 17:38 vancomycin Allergy Intermediate pruritus Verified 01/18/23 17:38 sulfamethoxazole AdvReac Severe renal Verified 01/18/23 17:38 [From Bactrim] failure trimethoprim [From Bactrim] AdvReac Severe renal Verified 01/18/23 17:38 failure lisinopril AdvReac Intermediate NAUSEA/VOMI Verified 01/18/23 17:38 TING omeprazole AdvReac Intermediate Nausea Verified 01/18/23 17:38 Home Medications Medication Instructions Recorded Confirmed Type acetaminophen 650 mg 650 mg PO Q8H PRN Pain 10/07/20 01/18/23 History tablet,extended release docusate sodium 100 mg capsule 100 mg PO DAILY PRN Constipation 11/10/21 01/18/23 History (Stool Softener) triamcinolone acetonide 0.5 % 1 applic topical BID PRN skin 11/10/21 01/18/23 Rx topical cream irritation #60 grams Lactobacillus acidoph-L.bulgaricus 1 tab PO BID #180 tabs 11/20/21 01/18/23 Rx 1 million cell tablet (Floranex) loperamide 2 mg capsule (Imodium 2 mg PO Q6H PRN Diarrhea 12/13/21 01/18/23 History A-D) polyethylene glycol 3350 17 17 g PO DAILY PRN Constipation 12/13/21 01/18/23 History gram/dose oral powder (Miralax) Prosthetic Socket replacement #1 ea 08/13/22 01/17/23 Rx aspirin 81 mg tablet,delayed 81 mg PO DAILY 11/15/22 01/18/23 History release (Adult Low Dose Aspirin) diphenhydramine HCl 25 mg tablet 25 mg PO HS PRN Sleep 11/15/22 01/18/23 History (Sleep Aid (diphenhydramine)) empagliflozin 25 mg tablet 25 mg PO DAILY #90 tabs 12/25/22 01/18/23 Rx (Jardiance) amlodipine 10 mg tablet 5 mg PO QAM #90 tabs 12/28/22 01/18/23 Rx furosemide 40 mg tablet 40 mg PO QAM #90 tabs 12/28/22 01/18/23 Rx gabapentin 100 mg capsule 100 mg PO TID 90 days #270 caps 12/28/22 01/18/23 Rx losartan 50 mg tablet 50 mg PO QAM #90 tabs 12/28/22 01/18/23 Rx metoprolol tartrate 25 mg tablet 25 mg PO BID #180 tabs 12/28/22 01/18/23 Rx omeprazole 20 mg capsule,delayed 20 mg PO DAILY 90 days #90 caps 12/28/22 01/18/23 Rx release rosuvastatin 40 mg tablet 40 mg PO QAM #90 tabs 12/28/22 01/18/23 Rx trazodone 50 mg tablet 25 mg PO HS #30 tabs 12/28/22 01/18/23 Rx tramadol 50 mg tablet 50 mg PO BID PRN pain #60 tabs 01/02/23 01/18/23 Rx Patient History Medical History Anemia of chronic disease Charcot's arthropathy Charcot's joint of foot due to diabetes Chronic back pain Chronic constipation Chronic diastolic CHF (congestive heart failure) Chronic kidney disease, stage 4 (severe) Chronic osteomyelitis Chronic venous insufficiency Clostridium difficile colitis history (~11/2016) -- treated no problems since. Diabetes mellitus type 2 with complications Diabetic neuropathy Diabetic ulcer of left great toe Dyslipidemia GERD (gastroesophageal reflux disease) Hypertension Morbid obesity BMI 45.7 Non-traumatic rhabdomyolysis (02/2021) Osteoarthritis PAD (peripheral artery disease) S/P right lower extremity angiogram, mechanical thrombectomy of pre-existing superficial femoral artery stent usinh Anjojet [place] Omni catheter, balloon angioplasty of the superficial femoral artery stent using 5 X 200 mm Sherman balloon, balloon angioplasty of the superficial femoral artery 6 X 250 mm IN.PACT drug coated balloon, stent angioplasty of the superficial femoral artery using 5 X 150 mm INOVA bare metal stent, and debridement of the right lateral foot on 11/14/[address] Lomeli. S/P bilateral SFA stenting Postmenopausal bleeding Proteinuria Sleep apnea no cpap Vitamin D deficiency Surgical History H/O vascular surgery (01/2020) LT SFA atherectomy, MARSHA w/ supera stenting History of bilateral cataract extraction History of cholecystectomy History of esophagogastroduodenoscopy (EGD) History of lumpectomy of right breast benign History of tooth extraction History of vascular surgery (04/20/22) L SFA Angio Extremity Unilateral Fem Pop Balloon Atherectomy S/P angioplasty (06/2019) LT SFA angioplastly with MARSHA S/P angioplasty (10/2019) RT SFA atherectomy/angioplasty w/ MARSHA S/P epidural steroid injection S/P femoral-popliteal bypass surgery S/P vascular surgery (11/2020) R fem-pop [id number] w/ stent and angioplasty Status post amputation of toe of right foot (11/14/20) amputation metatarsal w/ toe, R 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) Status post tonsillectomy Status post tubal ligation Family History Mother Rheumatoid arthritis Father Emphysema of lung Peripheral artery disease Aunt Breast cancer MOMS SIDE Colorectal cancer MOMS SIDE Myocardial infarction MOMS SIDE Brother Prostate cancer Sister COPD (chronic obstructive pulmonary disease) Other No family history of adverse response to anesthesia Denies family history of Ovarian cancer CAD (coronary atherosclerotic disease) Social History Smoking Status: Former smoker Tobacco Type: Cigarettes packs per day: 2; Second Hand Exposure: No; Do You Dip or Chew Tobacco: No; Hx Alcohol Use: No Hx Substance Use: No Preferred Language: Vietnamese Communication Ability: Effective Visual Impairment: No Limitations Hearing Ability: Normal Training Professional Required: No Beliefs That Will Affect Care: None marital status: Current Living Situation: Spouse Current Living Situation Comment: lives with and son current occupational status: disabled How many Children do You have: 1 other: previous worked at [employer] Feels Safe at Home: Yes Childhood Exposure to Second-Hand Smoke: Yes (father was a heavy smoker ) Diet: regular caffeine: No during the past year weight has: remained stable Dental Care, Regularly: No Physical Activity Frequency: Does not Exercise Seatbelt Use: always Sunscreen Use: No Assistive Devices: Prosthesis and Scooter/Electric Scooter Review of Systems Constitutional: no fever Eyes: no problem reported Ear, Nose, Mouth, Throat: no problem reported Respiratory: no cough, no dyspnea and no wheezing Cardiovascular: no chest pain Gastrointestinal: no abdominal pain, no nausea, no vomiting and no diarrhea/loose stools Genitourinary: no dysuria, no hematuria and no flank pain Integumentary: no rash Physical Exam Constitutional: not in distress Eyes: PERRL, conjunctivae normal, anicteric sclerae ENMT: external ear and nose normal, oropharynx normal Neck: trachea midline, no thyromegaly Respiratory: normal respiratory effort, lungs clear to auscultation Cardiovascular: Rate/Rhythm: regular rate and regular rhythm Extremities: + edema (1+ pretibial edema LLE) RLE prosthesis Gastrointestinal (Abdomen): normal bowel sounds, soft, nontender, no hepatosplenomegaly Skin: no rashes Neurologic: Speech / Cognition: normal speech and normal cognition Psychiatric: Affect: euthymic affect Results & Data Vital Signs (Past 12 Hours) Vital Signs Temp Pulse Pulse Resp BP Pulse Ox O2 Del Method 01/20/23 08:07 66 01/20/23 07:22 37.0 C 63 20 127/72 94 Room Air 01/20/23 03:00 36.7 C 64 18 130/61 93 Room Air 01/19/23 23:55 36.9 C 64 16 122/70 95 Room Air Laboratory Results Laboratory Tests 12/01/21 09/12/22 12/03/22 15:52 10:03 10:58 WBC Hgb Hct Plt Count Sodium Potassium Chloride Carbon Dioxide BUN Creatinine 2.05 H 2.57 H 3.32 H Glucose Magnesium 01/19/23 01/19/23 01/20/23 11:50 16:22 07:19 WBC 7.46 Hgb 9.3 L Hct 29.3 L Plt Count 241 Sodium 136 Potassium 5.4 H Chloride 105 Carbon Dioxide 23 BUN Creatinine 3.30 H 3.41 H Glucose 129 H Magnesium 01/20/23 07:19 WBC Hgb Hct Plt Count Sodium 136 Potassium 4.7 Chloride 105 Carbon Dioxide 23 BUN 67 H Creatinine 3.42 H Glucose 121 H Magnesium 2.7 H Diagnostic Findings 01/18/23 CXR: No lines and tubes are seen. Cardiomegaly is noted. There is prominence and cephalization of the vasculature with Lázaro B lines seen. Small bilateral pleural effusions are seen. 01/14/23 Renal US: Right kidney - 11.2 cm. No hydronephrosis. Normal corticomedullary differentiation and cortical thickness. Left kidney - 11.5 cm. Not well visualized. No definite subcapsular hematoma identified. No hydroneph rosis. Normal corticomedullary differentiation and cortical thickness. 01/19/23 Echocardiogram: LVEF 60-65%, mild MR PG Care Time/CCT Total # of Minutes Spent Total Time Spent with Patient: Total time spent is greater than 50% in coordination of care (as documented) at patient's floor/unit and/or counseling patient: Coding Level of Care Code 76353 IN/OBS CONSULT LVL 5,80M Diagnoses Chronic kidney disease, stage 4 (severe) N18.4 Congestive heart failure I50.9 Anemia D64.9 Anemia type: unspecified type (3) Anemia Anemia type: unspecified type Qualified Code(s): D64.9 - Anemia, unspecified
--- NOTE | 2023-01-20 13:47 | XRay Report ---
XR chest 2V PA/lateral CLINICAL HISTORY: F/u Pulm Edema TECHNIQUE: 2 views of the chest were obtained. Comparison: Comparison is made to chest radiograph 01/18/2023 FINDINGS: No lines and tubes are seen. Cardiomegaly is noted. The lungs are clear. Small bilateral pleural effu sions are seen. IMPRESSION: Previously noted pulmonary edema has resolved. ACT 112: Negative or not required by law. Electronically signed by: Anthony Odell M.D. 01/20/2023 1:45 PM
--- NOTE | 2023-01-20 14:56 | Discharge Summary ---
Date of Service January 20, 2023 Admission HPI Per Admitting Provider Jeanne Simpson is a pleasant 62yo female with history of CKD-V, CHF, DM and HTN presenting with shortness of breath and edema. Patient reports progressive dyspnea on exertion over the last month as well as a 20# unintentional weight gain and worsening LE edema and abdominal distention. She also notes worsening orthopnea and a dry cough mostly with laying down. Also with some puffiness of her face. Patient had a renal biopsy performed on 10/18/22 to workup her progressive CKD which revealed diabetic nephropathy. Patient developed a hematoma following the kidney biopsy and had to be placed on short term HD. She was dialyzed three times weekly for approximately 5 weeks through a right chest perm-cath. She has since been off dialysis for the last month. She follows with Nephrology - Dr. Mei. Patient was previously on Lasix 80mg po q M//. She is now on 40mg po daily. She reports good urine output. No hematuria or straining. She does report occasional foamy urine. Patient additionally reports alternating constipation/diarrhea for years - no melena or hematochezia. She has had colonoscopies in the past. Occasional headaches. She also reports difficulty with ambulation since having her right LE prosthetic revised. She reports imbalance as well as some pain in her right hip. She is due to have the prosthetic adjusted early next week. She denies fever, chills, chest pain, palpitations, abdominal pain, nausea or vomiting. NO additional complaints at this time. Principal Diagnosis Acute on Chronic HFpEF Discharge Exam Constitutional: well-appearing, no acute distress HEENT: NCAT, no conjunctival injection CV: regular rhythm, no murmur appreciated, extremities well-perfused, trace LE left, right BKA Resp: CTABL, no wheezes/rales/rhonchi appreciated, no increased work of breathing MSK: no gross deformities appreciated Skin: warm, dry, no rash appreciated Neuro: alert, oriented, no focal neurologic deficit appreciated Discharge Data Allergies Allergy/AdvReac Type Severity Reaction Status Date / Time daptomycin Allergy Severe rhabdomyoly Verified 01/18/23 17:38 sis amoxicillin Allergy Intermediate HIVES & N/V Verified 01/18/23 17:38 clavulanic acid Allergy Intermediate HIVES & N/V Verified 01/18/23 17:38 vancomycin Allergy Intermediate pruritus Verified 01/18/23 17:38 sulfamethoxazole AdvReac Severe renal Verified 01/18/23 17:38 [From Bactrim] failure trimethoprim [From Bactrim] AdvReac Severe renal Verified 01/18/23 17:38 failure lisinopril AdvReac Intermediate NAUSEA/VOMI Verified 01/18/23 17:38 TING omeprazole AdvReac Intermediate Nausea Verified 01/18/23 17:38 Consultations 01/18/23 19:13 ED Decision to Admit Stat 01/19/23 16:21 Consult Nephrology Routine Ordered Studies 01/18/23 16:41 CT abd pelvis wo con Stat Laboratory Results WBC 7.46 K/ul (4.8-10.8) 01/20/23 07:19 RBC 3.26 M/uL (4.20-5.40) L 01/20/23 07:19 Hgb 9.3 g/dl (12.0-16.0) L 01/20/23 07:19 Hct 29.3 % (37.0-47.0) L 01/20/23 07:19 MCV 89.9 fL (80.0-100.0) 01/20/23 07:19 MCH 28.5 pg (25.0-34.0) 01/20/23 07:19 MCHC 31.7 g/dL (32.0-36.0) L 01/20/23 07:19 RDW Std Deviation 53.6 fL (36.4-46.3) H 01/20/23 07:19 RDW Coeff of Adelina 16.5 % (11.5-14.5) H 01/20/23 07:19 Plt Count 241 K/uL (130-400) 01/20/23 07:19 MPV 9.7 fL (9.4-12.4) 01/20/23 07:19 Immature Gran % (Auto) 0.7 % 01/20/23 07:19 Neut % (Auto) 59.2 % 01/20/23 07:19 Lymph % (Auto) 24.9 % 01/20/23 07:19 Osborne % (Auto) 9.0 % 01/20/23 07:19 Eos % (Auto) 5.1 % 01/20/23 07:19 Baso % (Auto) 1.1 % 01/20/23 07:19 Neut # (Auto) 4.42 K/uL (1.40-6.50) 01/20/23 07:19 Lymph # (Auto) 1.86 K/uL (1.2-3.4) 01/20/23 07:19 Osborne # (Auto) 0.67 K/uL (0.11-0.59) H 01/20/23 07:19 Eos # (Auto) 0.38 K/uL (0-0.50) 01/20/23 07:19 Baso # (Auto) 0.08 K/uL (0-0.2) 01/20/23 07:19 Immature Gran # (Auto) 0.05 K/uL (0.01-0.20) 01/20/23 07:19 Absolute Nucleated RBC 0.02 K/uL (0-0.12) 01/20/23 07:19 Nucleated RBC % (auto) 0.3 % 01/20/23 07:19 PT 11.1 Seconds (9.0-12.0) 01/18/23 16:32 INR 1.0 (0.9-1.1) 01/18/23 16:32 APTT 29.9 Seconds (21.0-31.0) 01/18/23 16:32 PTT Ratio 1.1 01/18/23 16:32 Sodium 136 mmol/L (136-145) 01/20/23 07:19 Potassium 4.7 mmol/L (3.5-5.1) 01/20/23 07:19 Chloride 105 mmol/L (98-107) 01/20/23 07:19 Carbon Dioxide 23 mmol/L (21-32) 01/20/23 07:19 Anion Gap 8 (3-11) 01/20/23 07:19 BUN 67 mg/dl (6-23) H 01/20/23 07:19 Creatinine 3.42 mg/dl (0.6-1.2) H 01/20/23 07:19 Est Cr Clr Drug Dosing 19.9 ml/min 01/20/23 07:19 Est GFR ( Amer) 15.7 ml/min 01/20/23 07:19 Est GFR (Non-Af Amer) 13.5 ml/min 01/20/23 07:19 BUN/Creatinine Ratio 19.6 (10-20) 01/20/23 07:19 Glucose 121 mg/dl (70-99(Fasting)) H 01/20/23 07:19 POC Glucose 136 mg/dl (70-99) H 01/20/23 12:19 Calcium 9.2 mg/dl (8.6-10.3) 01/20/23 07:19 Magnesium 2.7 mg/dl (1.7-2.4) H 01/20/23 07:19 Total Bilirubin 0.4 mg/dl (0.2-1.0) 01/18/23 16:32 AST 13 U/L (13-39) 01/18/23 16:32 ALT 16 U/L (7-52) 01/18/23 16:32 Alkaline Phosphatase 111 U/L (34-104) H 01/18/23 16:32 Troponin I High Sens 7.1 pg/ml (0-14) 01/18/23 16:32 B-Natriuretic Peptide 143 pg/ml (0-100) H 01/18/23 16:32 Total Protein 7.7 gm/dl (6.0-8.3) 01/18/23 16:32 Albumin 3.8 gm/dl (3.4-5.0) 01/18/23 16:32 Globulin 3.9 gm/dl (2.5-4.0) 01/18/23 16:32 Albumin/Globulin Ratio 1.0 (0.9-2) 01/18/23 16:32 TSH 5.766 uIu/ml (0.300-4.500) H 01/18/23 16:32 Free T4 0.93 ng/dl (0.61-1.60) 01/18/23 16:32 Urine Color Yellow 01/19/23 00:00 Urine Appearance Clear (Clear) 01/19/23 00:00 Urine pH 6.5 (4.5-7.5) 01/19/23 00:00 Ur Specific Lambert 1.012 (1.000-1.030) 01/19/23 00:00 Urine Protein 3+ (Negative) H 01/19/23 00:00 Urine Glucose (UA) Negative (Negative) 01/19/23 00:00 Urine Ketones Negative (Negative) 01/19/23 00:00 Urine Blood Trace (Negative) H 01/19/23 00:00 Urine Nitrite Negative (Negative) 01/19/23 00:00 Urine Bilirubin Negative (Negative) 01/19/23 00:00 Urine Urobilinogen Negative (Negative) 01/19/23 00:00 Ur Leukocyte Esterase Negative (Negative) 01/19/23 00:00 Urine WBC (Auto) 1-5 /hpf (0-5) 01/19/23 00:00 Urine RBC (Auto) 0-4 /hpf (0-4) 01/19/23 00:00 U Hyaline Cast (Auto) 0 /lpf (0-5) 01/19/23 00:00 U Epithel Cells (Auto) 20-30 /lpf (0-5) H 01/19/23 00:00 Urine Bacteria (Auto) Negative (Negative) 01/19/23 00:00 SARS-CoV-2 (PCR) NEGATIVE (Negative) 01/18/23 16:53 Influenza Type A (PCR) Negative (Neg) 01/18/23 16:53 Influenza Type B (PCR) Negative (Neg) 01/18/23 16:53 RSV (RT-PCR) Negative (Neg) 01/18/23 16:53 Impressions Abdomen/Pelvis CT 01/18/23 16:41 CT abd pelvis wo con CLINICAL HISTORY: left flank and abdominal pain TECHNIQUE: Helical axial images of the abdomen and pelvis were obtained. Automated dose lowering techniques and/or adjustment according to patient size were utilized for this exam. This exam was performed without intravenous contrast. CT DOSE: 1268.17 mGy.cm COMPARISON: Comparison is made to CT abdomen pelvis 6 clinical history FINDINGS: Lower chest: Small pleural effusions are seen bilaterally with associated atelectasis. Liver: Unremarkable. No focal lesions are seen. Gallbladder and biliary tree: Patient is status post cholecystectomy. No intra- or extrahepatic biliary ductal dilation. Pancreas: Unremarkable, no focal lesions. Spleen: Unremarkable. Adrenals: Unremarkable. Kidneys and ureters: Perinephric stranding is noted bilaterally. Bladder: Limited evaluation due to underdistention. Reproductive organs: Unremarkable. Bowel: Unremarkable. Lymph nodes Retroperitoneal: Unremarkable. Pelvic: Unremarkable. Mesenteric: Unremarkable. Peritoneum: Normal. Vessels: Atherosclerotic calcifications are seen. Abdominal wall: Fat-containing left abdominal hernia is seen. Bones: Degenerative changes in the visualized spine. IMPRESSION: No acute abnormalities explain left flank pain, in particular no evidence of obstructive stone is seen. ACT 112: Negative or not required by law. Electronically signed by: Anthony Odell M.D. 01/18/2023 7:08 PM Chest X-Ray 01/20/23 11:47 XR chest 2V PA/lateral CLINICAL HISTORY: F/u Pulm Edema TECHNIQUE: 2 views of the chest were obtained. Comparison: Comparison is made to chest radiograph 01/18/2023 FINDINGS: No lines and tubes are seen. Cardiomegaly is noted. The lungs are clear. Small bilateral pleural effusions are seen. IMPRESSION: Previously noted pulmonary edema has resolved. ACT 112: Negative or not required by law. Electronically signed by: Anthony Odell M.D. 01/20/2023 1:45 PM Hospital Course (1) Dyspnea: 62yo female with multiple medical comorbidities including CKD-V, HFpEFmpresenting with one month of progressive STUBBS, orthopnea and edema as well as 20# weight gain. Patient was briefly on HD for 5 weeks following complications of a renal biopsy. She has been off HD for approximately 1 month. She is compliant with her Lasix 40mg po daily and reports adequate urine output. Hypervolemia in the setting of HFpEF -improvement in dyspnea with dieresis, stable of room air - repeat echo EF= 60-65%, mild MRG, mild concentric LVH -Diuresed with IV Lasix; down about 5kg from admission -Plan to d/c with home lasix regimen per nephrology could consider transition to Bumex if creatine is stable at f/u with PCP ELROY on Stage 4 for CKD - Baseline creatine of 3. - creatine 3.3 on admission, and was stable at 3.3-3.4 - Nephrology consulted - Losartan was initially held, plan to resume on d/c - Will need repeat creatine this week with PCP PAD Chronic. Stable. Patient follows with Dr. Cr - currently discussing possible stent vs bypass on LLE. She denies pain or skin ulceration at present. -ASA 81mg po daily -Crestor 40mg po daily GERD Chronic. Stable -Protonix 40mg po daily DM2 Improved control from prior. Last OntU0P=6.9 on 12/03/22. -Continue Jardiance 25mg po daily -Continue Neurontin for neuropathy (2) Chronic kidney disease, stage 4 (severe): (3) PAD (peripheral artery disease): (4) Chronic heart failure with preserved ejection fraction (HFpEF): (5) GERD (gastroesophageal reflux disease): (6) Diabetes mellitus type 2 with complications: (7) Hypertension: Total Time Total Time Spent Total Time Spent (In Minutes): See attending attestation Discharge Plan Discharge Items Patient Disposition: Home - Self-Care Reason For Visit: SHORTNESS OF BREATH Discharge Diagnosis: Acute of Chronic HFpEF Condition on Discharge: Good Activity: Resume your previous activity Non-emergency contact: Primary Care Provider Call non-emergency contact if: you have any medication questions and your symptoms worsen Follow-up/Referrals: Andie Rodrigues, [Primary Care Provider] - Diet: Regular and Low Sodium (2gm) Addtl Attending Provider Instructions: You were admitted with fluid overload. We used IV diuretics to help get rid of this fluid. When you go home we would like you to resume your prior Lasix dosing. We did not make any changes to your medications. We would like for you to follow up with your primary care doctor this week for repeat labs, as your creatine (kidney function number) is still a little bit elevated. In order to prevent fluid overload in the future, you should try to limit the salt in your diet. Pending Studies at Discharge: No Stand-Alone Forms: My [facility], Smoking Cessation Medications and DC Order Prescriptions: Continued Lactobacillus acidoph-L.bulgar [Floranex] 1 million cell tablet 1 tab PO BID Qty: 180 1RF Rx Instructions: ON HOLD (DME) Prosthetic Socket replacement See Rx Instructions .Route .MEDSUPPLY Qty: 1 0RF Rx Instructions: As directed. Patient states she is being fitted for a new prosthetic. Jardiance 25 mg tablet 25 mg PO DAILY Qty: 90 3RF amlodipine 10 mg tablet 5 mg PO QAM Qty: 90 1RF furosemide 40 mg tablet 40 mg PO QAM Qty: 90 1RF gabapentin 100 mg capsule 100 mg PO TID 90 Days Qty: 270 1RF losartan 50 mg tablet 50 mg PO QAM Qty: 90 1RF Hold Instructions: d/t renal function metoprolol tartrate 25 mg tablet 25 mg PO BID Qty: 180 1RF omeprazole 20 mg capsule,delayed release(DR/EC) 20 mg PO DAILY 90 Days Qty: 90 1RF rosuvastatin 40 mg tablet 40 mg PO QAM Qty: 90 1RF trazodone 50 mg tablet 25 mg PO HS Qty: 30 3RF tramadol 50 mg tablet 50 mg PO BID PRN (Reason: pain) Qty: 60 0RF polyethylene glycol 3350 [Miralax] 17 gram/dose powder 17 g PO DAILY PRN (Reason: Constipation) loperamide [Imodium A-D] 2 mg capsule 2 mg PO Q6H PRN (Reason: Diarrhea) aspirin [Adult Low Dose Aspirin] 81 mg tablet,delayed release (DR/EC) 81 mg PO DAILY docusate sodium [Stool Softener] 100 mg capsule 100 mg PO DAILY PRN (Reason: Constipation) triamcinolone acetonide 0.5 % cream 1 applic topical BID PRN (Reason: skin irritation) Qty: 60 1RF Rx Instructions: apply to chest acetaminophen 650 mg Tablet Extended Release 650 mg PO Q8H PRN (Reason: Pain) diphenhydramine HCl [Sleep Aid (diphenhydramine)] 25 mg tablet 25 mg PO HS PRN (Reason: Sleep) Discharge Orders: Discharge Order- CHF (Routine); Ordered 01/20/23 Ordered By: Angella Bowman Admission Data Admit Date/Time: 01/18/23 20:27 Attending Provider: Eunice Blackwell Admit Provider: Lyudmila Martinez Primary Care Provider: Andie Rodrigues Other Providers: Lyudmila Martinez ; Moise Hunt. Other Interventions: Discharge Summary Assessment (RN) Last Done: 01/20/23 14:57 Supervising Physician Co-Signing Physician Notes I personally examined the patient and verified hernandez points of history and exam, discussed case, and agree with decision making and plan documented by Dr. Bowman. Patient with clinical improvement and hopeful for discharge as she has multiple appointments tomorrow outpatient. Appreciate nephrology evaluation today with recommendations of changing diuretic to Bumex 2 mg daily for improved bioavailability. Repeat chest x-ray showed resolution of pulmonary edema. Advised monitoring of weights and sodium restricted diet. Patient will follow- up with PCP and nephrology as recommended. Resident Activity Tracking Resident Involvement: Resident Care Provided Care Provided: Adult [facility]
[2023-01-20 16:43] LABS: BUN Creatinine Ratio 19.9 (10-20); Calcium 8.9 mg/dl (8.6-10.3); Creatinine Clr Calc Pharmacy 19.7 ml/min; Est GFR (African American) 15.5 ml/min; Est GFR (Non-African American) 13.4 ml/min
== END 2023-01-20 18:08 | disposition home or self-care (01) | DRG 291 ==
LOC: ED 15:43 → SUATTDRO 20:27 → EDINP 20:27 → INTOOBSV 20:27 → 2N 21:27

== ENCOUNTER 2023-08-16 18:09 | Observation (INO) ==
--- NOTE | 2023-08-16 18:30 | Emergency Department Note ---
Impression & Plan Pleural effusion ADMIT ED Provider Note HPI: History obtained from patient The patient is a 62-year-old female with history of chronic kidney disease, peripheral artery disease, chronic heart failure with preserved ejection fraction, type 2 diabetes, hypertension, presents emergency department with chief complaint of shortness of breath and concern for recurrent pleural effusion. Patient states that she had a chest x-ray done in the outpatient setting yesterday that showed evidence of pleural effusion. Patient states she did just have a thoracentesis this past July for the same issue. On arrival here to the ED the patient states that she does have some shortness of breath and chest "heaviness" but she denies any pain. Patient is saturating at 92% on room air on arrival. Patient denies recent fever, denies any cough. ROS: - Per HPI Differential Diagnosis: Acute CHF exacerbation, pulmonary edema, pleural effusion, acute coronary syndrome, amongst other potential pathologies. *Outpatient medications and allergy history reviewed. PE: General: Alert, morbidly obese HEENT: Normocephalic, trachea midline Eyes: Extraocular eye movement is intact, no scleral erythema Pulmonary: Diminished breath sounds on the right side, otherwise no wheezing or crackles Cardio: Regular rate and rhythm GI: Abdomen is soft to palpation : No suprapubic tenderness MSK: No evidence of trauma or malformation of the extremities, no edema Skin: No evidence of rash Neuro: Alert, no focal deficits Psychiatric: Cooperative INDEPENDENT INTERPRETATIONS: compliance monitor: (As interpreted by myself): - An order was placed for continuous cardiac monitoring - Patient was noted to be in sinus rhythm with a rate of 85 EKG: (As interpreted by myself): Rate: 80 Rhythm: Sinus rhythm Intervals: WI interval prolonged at 220 ms, otherwise within normal limits ST changes: No ST elevation Time: 1829 Chest x-ray: (As interpreted by myself): Large R-sided pleural effusion Medical Decision Making: IV was established and lab work obtained, patient was placed on cardiac cath technologist, lab work does not show any leukocytosis, hemoglobin is stable at 10.5, platelet count is normal. CMP shows elevated BUN of 43 and creatinine appears to be near baseline at 3.54, glucose is elevated at 243 without any evidence of acidosis on lab work with normal serum bicarbonate level is 25. There is no anion gap elevation. BNP is moderately elevated at 213, troponin is negative. EKG per my interpretation shows sinus rhythm without any acute ischemic changes. Patient is stable on room air however she does display some mild increased work of breathing and chest x-ray per my interpretation does show evidence of a large right-sided pleural effusion which I suspect will require thoracentesis. Patient will therefore be placed inpatient. Case was discussed with the [facility] hospitalist service, Gab Aguayo PA-C, and the patient was placed for admission in stable condition. Consultants/Discussions held with other healthcare providers: -[facility] hospitalist service, Gab Aguayo PA-C/Dr. Gonzalez Diagnosis: 1. Dyspnea, acute 2. Right-sided pleural effusion, acute 3. Chronic kidney disease 4. Elevated BNP 5. Hyperglycemia without DKA Disposition: Admission Surinder Wong DO Emergency Medicine Past Med/Surg History Medical History SOB (shortness of breath) Stage 5 chronic kidney disease not on chronic dialysis Hyperkalemia Dyspnea Chronic kidney disease, stage 4 (severe) ESRD on dialysis Proteinuria Diabetic neuropathy Chronic constipation Vitamin D deficiency Chronic diastolic CHF (congestive heart failure) Diabetes mellitus type 2 with complications Charcot's arthropathy Chronic osteomyelitis Hypertension Non-traumatic rhabdomyolysis (02/2021) Postmenopausal bleeding Anemia of chronic disease Chronic back pain Chronic venous insufficiency Diabetic ulcer of left great toe PAD (peripheral artery disease) Morbid obesity Clostridium difficile colitis GERD (gastroesophageal reflux disease) Charcot's joint of foot due to diabetes Osteoarthritis Sleep apnea Dyslipidemia Surgical History History of vascular surgery (04/20/22) History of bilateral cataract extraction 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) Status post amputation of toe of right foot (11/14/20) S/P vascular surgery (11/2020) S/P femoral-popliteal bypass surgery S/P angioplasty (10/2019) S/P angioplasty (06/2019) History of cholecystectomy History of tooth extraction History of esophagogastroduodenoscopy (EGD) S/P epidural steroid injection H/O vascular surgery (01/2020) History of lumpectomy of right breast Status post tubal ligation Status post tonsillectomy Family History Mother Rheumatoid arthritis Father Emphysema of lung Peripheral artery disease Aunt Breast cancer Colorectal cancer Myocardial infarction Brother Prostate cancer Sister COPD (chronic obstructive pulmonary disease) Other No family history of adverse response to anesthesia Denies family history of Ovarian cancer CAD (coronary atherosclerotic disease) Social History Smoking Status: Never smoker Tobacco Type: Cigarettes packs per day: 2; Second Hand Exposure: No; Do You Dip or Chew Tobacco: No; Hx Alcohol Use: No Hx Substance Use: No Preferred Language: [place] Islander Communication Ability: Effective Visual Impairment: No Limitations Hearing Ability: Normal Food Sanitarian Required: No Beliefs That Will Affect Care: None marital status: Current Living Situation: Spouse and Family Current Living Situation Comment: lives with and son current occupational status: disabled How many Children do You have: 1 other: previous worked at [employer] Feels Safe at Home: Yes Childhood Exposure to Second-Hand Smoke: Yes (father was a heavy smoker ) Diet: regular Diet Comment: regular caffeine: Yes (very little) during the past year weight has: remained stable Dental Care, Regularly: No Physical Activity Frequency: Does not Exercise Seatbelt Use: always Sunscreen Use: No Assistive Devices: Prosthesis and Scooter/Electric Scooter Allergies Allergies Allergy/AdvReac Type Severity Reaction Status Date / Time daptomycin Allergy Severe rhabdomyoly Verified 08/16/23 20:07 sis amoxicillin Allergy Intermediate HIVES & N/V Verified 08/16/23 20:07 clavulanic acid Allergy Intermediate HIVES & N/V Verified 08/16/23 20:07 vancomycin Allergy Intermediate pruritus Verified 08/16/23 20:07 sulfamethoxazole AdvReac Severe renal Verified 08/16/23 20:07 [From Bactrim] failure trimethoprim [From Bactrim] AdvReac Severe renal Verified 08/16/23 20:07 failure lisinopril AdvReac Intermediate NAUSEA/VOMI Verified 08/16/23 20:07 TING omeprazole AdvReac Intermediate Nausea Verified 08/16/23 20:07 Home Meds Home Medications Medication Instructions Recorded Confirmed acetaminophen 650 mg 650 mg PO Q8H PRN Pain 10/07/20 08/16/23 tablet,extended release docusate sodium 100 mg capsule 100 mg PO DAILY PRN Constipation 11/10/21 08/16/23 (Stool Softener) loperamide 2 mg capsule (Imodium 2 mg PO Q6H PRN Diarrhea 12/13/21 08/16/23 A-D) polyethylene glycol 3350 17 17 g PO DAILY PRN Constipation 12/13/21 08/16/23 gram/dose oral powder (Miralax) aspirin 81 mg tablet,delayed 81 mg PO DAILY 11/15/22 08/16/23 release (Adult Low Dose Aspirin) diphenhydramine HCl 25 mg tablet 25 mg PO HS PRN Sleep 11/15/22 08/16/23 (Sleep Aid (diphenhydramine)) ferrous sulfate 325 mg (65 mg 325 mg PO BID 03/11/23 08/16/23 iron) tablet,delayed release furosemide 40 mg tablet See Rx Instructions .Route .COMPLEX 08/14/23 08/16/23 amlodipine 10 mg tablet 5 mg PO QAM 08/16/23 08/16/23 magnesium 500 mg tablet 500 mg PO DAILY 08/16/23 08/16/23 sodium polystyrene sulfonate 15 60 ml PO WK 08/16/23 08/16/23 gram-sorbitol 20 gram/60 mL oral susp (SPS (with sorbitol)) Previous Rx's Medication Instructions Recorded triamcinolone acetonide 0.5 % 1 applic topical BID PRN skin 11/10/21 topical cream irritation #60 grams Prosthetic Socket replacement #1 ea 08/13/22 mecobalamin (vitamin B12) 1,000 1,000 mcg sublingual DAILY #90 tabs 03/22/23 mcg disintegrating tablet,sublingual blood glucose control high and low #1 ea 04/03/23 solution (Accu-Chek Guide L1-L2 Control Solution) metoprolol tartrate 25 mg tablet 25 mg PO BID #180 tabs 05/27/23 trazodone 50 mg tablet 25 mg (1/2 x 50 mg) PO HS #45 tabs 05/27/23 Socket replacement and supplies #1 ea 05/30/23 omeprazole 20 mg capsule,delayed 20 mg PO DAILY 90 days #90 caps 07/04/23 release rosuvastatin 40 mg tablet 40 mg PO QAM #90 tabs 07/04/23 ergocalciferol (vitamin D2) 1,250 50,000 unit PO WEEKLY #12 caps 07/11/23 mcg (50,000 unit) capsule tramadol 50 mg tablet 50 mg PO BID PRN pain #60 tabs 07/22/23 levofloxacin 750 mg tablet 750 mg PO Q OTHER DAY 7 days #4 08/14/23 tabs Results & Data (ED) Vital Signs Vital Signs - 24 hr 08/16/23 18:14 08/16/23 18:33 08/16/23 18:53 Temperature 36.8 C Temperature Source Temporal Artery Scan Pulse Rate 80 77 Pulse Rate from SpO2 Sensor Pulse Rhythm Regular Pulse Strength Normal Respiratory Rate 20 Respiratory Effort / Characteristics Non-Labored Spontaneous Respiratory Depth Normal Blood Pressure 173/68 H Blood Pressure Mean 103 Blood Pressure Position Sitting Pulse Oximetry 92 93 Oxygen Delivery Method Room Air Room Air Sepsis Recent Fever Within 48 Hours No Sepsis New/Unexplained Change in Mental Status N/A Sepsis Action Taken by Nursing No Action Required 08/16/23 19:30 08/16/23 20:00 Temperature Temperature Source Pulse Rate 88 73 Pulse Rate from SpO2 Sensor 75 73 Pulse Rhythm Pulse Strength Respiratory Rate 22 20 Respiratory Effort / Characteristics Respiratory Depth Blood Pressure 154/87 H Blood Pressure Mean 109 Blood Pressure Position Pulse Oximetry 93 93 Oxygen Delivery Method Room Air Room Air Sepsis Recent Fever Within 48 Hours Sepsis New/Unexplained Change in Mental Status Sepsis Action Taken by Nursing Laboratory Data 08/16/23 18:45 08/16/23 18:45 Lab Results 08/16/23 08/16/23 Range/Units 18:43 18:45 WBC 9.15 (4.8-10.8) K/ul RBC 3.82 L (4.20-5.40) M/uL Hgb 10.5 L (12.0-16.0) g/dl Hct 32.7 L (37.0-47.0) % MCV 85.6 (80.0-100.0) fL MCH 27.5 (25.0-34.0) pg MCHC 32.1 (32.0-36.0) g/dL RDW Std Deviation 49.8 H (36.4-46.3) fL RDW Coeff of Adelina 16.2 H (11.5-14.5) % Plt Count 288 (130-400) K/uL MPV 9.8 (9.4-12.4) fL Immature Gran % (Auto) 0.7 % Neut % (Auto) 80.8 % Lymph % (Auto) 10.6 % [place] % (Auto) 5.8 % Eos % (Auto) 1.6 % Baso % (Auto) 0.5 % Neut # (Auto) 7.39 H (1.40-6.50) K/uL Lymph # (Auto) 0.97 L (1.20-3.40) K/uL [place] # (Auto) 0.53 (0.11-0.59) K/uL Eos # (Auto) 0.15 (0.00-0.50) K/uL Baso # (Auto) 0.05 (0.00-0.20) K/uL Immature Gran # (Auto) 0.06 (0.01-0.20) K/uL PT 11.4 (9.0-12.0) Seconds INR 1.0 (0.9-1.1) APTT 29 (21-31) Seconds PTT Ratio 1.0 Sodium 137 (136-145) mmol/L Potassium 3.5 (3.5-5.1) mmol/L Chloride 102 (98-107) mmol/L Carbon Dioxide 25 (21-32) mmol/L Anion Gap 10 (3-11) BUN 43 H (6-23) mg/dl Creatinine 3.54 H (0.6-1.2) mg/dl Est Cr Clr Drug Dosing Not Reportable Est GFR ( Amer) 15.1 ml/min Est GFR (Non-Af Amer) 13.0 ml/min BUN/Creatinine Ratio 12.1 (10-20) Glucose 243 H (70-99(Fasting)) mg/dl Calcium 8.6 (8.6-10.3) mg/dl Total Bilirubin 0.3 (0.2-1.0) mg/dl AST 13 (13-39) U/L ALT 9 (7-52) U/L Alkaline Phosphatase 103 (34-104) U/L Troponin I High Sens 10.9 (0-14) pg/ml B-Natriuretic Peptide 213 H (0-100) pg/ml Total Protein 7.1 (6.0-8.3) gm/dl Albumin 3.2 L (3.4-5.0) gm/dl Globulin 3.9 (2.5-4.0) gm/dl Albumin/Globulin Ratio 0.8 L (0.9-2) Procalcitonin 0.13 (0-0.5) ng/ml SARS-CoV-2 (PCR) NEGATIVE (Negative) Influenza Type A (PCR) Negative (Neg) Influenza Type B (PCR) Negative (Neg) RSV (RT-PCR) Negative (Neg) Administered Medications Metoprolol Tartrate (Metoprolol Tartrate 25 Mg Tab) 25 mg PO BID PER Stop: 09/15/23 22:43 Last Admin: 08/16/23 23:32 Dose: 25 mg Documented By: DEYSI Discontinued Medications Furosemide (Furosemide Inj 20 Mg/2 Ml Vial) 20 mg IV ONE ONE Stop: 08/16/23 20:46 Last Admin: 08/16/23 21:53 Dose: 20 mg Documented By: DOUGLAS Potassium Chloride (K Duong / Wtr) 10 meq in 100 mls @ 100 mls/hr IV Q1H PER Stop: 08/16/23 22:59 Last Admin: 08/16/23 23:32 Dose: 50 mls/hr Documented By: Infusion: 08/16/23 22:53 Dose: Infused Documented By: Admin: 08/16/23 21:53 Dose: 100 mls/hr Documented By: DOUGLAS Piperacillin Sod/Tazobactam Sod (Zosyn) 4.5 gm in 100 mls @ 200 mls/hr IV ONE STA Stop: 08/16/23 21:26 Last Infusion: 08/16/23 23:19 Dose: Infused Documented By: Admin: 08/16/23 21:53 Dose: 200 mls/hr Documented By: DOUGLAS Tramadol HCl (Tramadol Hcl 50 Mg Tablet) 25 mg PO NOW STA Stop: 08/16/23 20:48 Last Admin: 08/16/23 21:47 Dose: 25 mg Documented By: DOUGLAS Imaging Data Radiologist's Impression: Chest X-Ray 08/16/23 18:19 XR chest 1V not portable CLINICAL HISTORY: Chest pain, nonspecific TECHNIQUE: Single frontal radiograph of the chest was obtained. Comparison: Comparison is made to chest radiograph 08/15/2023 FINDINGS: No lines and tubes are seen. The cardiomediastinal silhouette is obscured. Right lower lung airspace opacity is mildly improved from prior exam. Large right pleural effusion. IMPRESSION: Large right pleural effusion with underlying airspace opacity, slightly improved from prior exam. ACT 112: Negative or not required by law. Electronically signed by: Anthony Odell M.D. 08/16/2023 7:17 PM Discharge Plan Visit Data Chief Complaint: Shortness of Breath/Dyspnea Stated Complaint: SOB ED Provider: Surinder Wong Discharge Problem: Pleural effusion Patient Disposition: Admitted As Inpatient Discharge Instructions Interventions: ED Discharge Assessment Last Done: 08/16/23 22:37
--- NOTE | 2023-08-16 19:20 | XRay Report ---
XR chest 1V not portable CLINICAL HISTORY: Chest pain, nonspecific TECHNIQUE: Single frontal radiograph of the chest was obtained. Comparison: Comparison is made to chest radiograph 08/15/2023 FINDINGS: No lines and tubes are seen. The cardiomediastinal silhouette is obscured. Right lower lung airspace opacity is mildly improved from prior exam. Large right pleural effusion. IMPRESSION: Large right pleural effusion with underlying airspace opacity, slightly improved from prior exam. ACT 112: Negative or not required by law. Electronically signed by: Anthony Odell M.D. 08/16/2023 7:17 PM
[2023-08-16 19:31] LABS: Basophils # (auto) 0.05 K/uL (0.00-0.20); Basophils % (auto) 0.5 %; Eosinophils # (auto) 0.15 K/uL (0.00-0.50); Eosinophils % (auto) 1.6 %; Hematocrit (blood only) 32.7 % (37.0-47.0); Hemoglobin 10.5 g/dl (12.0-16.0); Immature Granulocytes # (auto) 0.06 K/uL (0.01-0.20); Immature Granulocytes % (auto) 0.7 %; Lymphocytes # (auto) 0.97 K/uL (1.20-3.40); Lymphocytes % (auto) 10.6 %; Mean Corpuscular Hemoglobin 27.5 pg (25.0-34.0); Mean Corpuscular Hgb Conc 32.1 g/dL (32.0-36.0); Mean Corpuscular Volume 85.6 fL (80.0-100.0); Mean Platelet Volume 9.8 fL (9.4-12.4); Monocytes # (auto) 0.53 K/uL (0.11-0.59); Monocytes % (auto) 5.8 %; Neutrophils # (auto) 7.39 K/uL (1.40-6.50); Neutrophils % (auto) 80.8 %; Platelet Count 288 K/uL (130-400); RDW Coefficient of Variation 16.2 % (11.5-14.5); RDW Standard Deviation 49.8 fL (36.4-46.3); Red Blood Count 3.82 M/uL (4.20-5.40); White Blood Count 9.15 K/ul (4.8-10.8)
[2023-08-16 19:40] LABS: Alanine Aminotransferase 9 U/L (7-52); Albumin Globulin Ratio 0.8 (0.9-2); Albumin Level 3.2 gm/dl (3.4-5.0); Alkaline Phosphatase 103 U/L (34-104); Anion Gap 10 (3-11); Aspartate Aminotransferase 13 U/L (13-39); BUN Creatinine Ratio 12.1 (10-20); Bilirubin,Total 0.3 mg/dl (0.2-1.0); Blood Urea Nitrogen 43 mg/dl (6-23); Calcium 8.6 mg/dl (8.6-10.3); Carbon Dioxide 25 mmol/L (21-32); Chloride 102 mmol/L (98-107); Est GFR (African American) 15.1 ml/min; Globulin 3.9 gm/dl (2.5-4.0); Glucose 243 mg/dl (70-99(Fasting)); Potassium 3.5 mmol/L (3.5-5.1); Sodium 137 mmol/L (136-145); Total Protein 7.1 gm/dl (6.0-8.3)
[2023-08-16 19:45] LABS: Influenza A virus by PCR Negative (Neg); Influenza B virus by PCR Negative (Neg); RSV by PCR Negative (Neg); SARS CoV2 RNA(COVID-19) Ceph NEGATIVE (Negative)
[2023-08-16 19:45] LABS: Troponin I High Sensitivity 10.9 pg/ml (0-14)
[2023-08-16 19:48] LABS: Partial Thromboplastin Time 29 Seconds (21-31); Prothrombin Time 11.4 Seconds (9.0-12.0)
--- NOTE | 2023-08-16 20:25 | History & Physical Report ---
Date of Service August 16, 2023 Assessment & Plan (1) Recurrent pleural effusion on right: Plan: -Admit to med/tele -Currently stable on RA and non-toxic appearing -Presented to the ED with progressive SOB since her first right thoracentesis on 08/05/23 -Pathology from the pleural fluid was negative for malignancy, LDH and protein were both WNL -While this could be related to her CKD, we cannot rule out infectious etiology at this time -Will give her 20 mg IV lasix now, can continue with PO tomorrow >Will give 2 bags of 10 meq IV KCL as her potassium is currently 3.5 -Will obtain repeat CT of the chest to monitor for right sided pneumonia -Consulted Pulmonology for possible thoracentesis tomorrow -Will consult Nephrology in case temporary dialysis is needed in the near future -Will start her on Zosyn for now with prn Benadryl for hives/itching -Will obtain procal and sputum culture -Hold chemical DVT PPX for now in case of thoracentesis -HH/DMII diet with 2gm sodium and 1800 mL fluid restriction for now -AM CBC, BMP, mag, PT/INR (2) SOB (shortness of breath): Plan: -Likely due to her recurrent right sided pleural effusion -Incentive spirometry, flutter therapy, prn O2 to keep Spo2 at or above 94% (3) Stage 5 chronic kidney disease not on chronic dialysis: Plan: -Renal function and electrolytes are stable -Nephrology consult placed -Avoid nephrotoxic agents -Monitor am renal function and electrolytes (4) Diabetes mellitus type 2 with complications: Plan: -Monitor BSG ACHG, goal is 110-160 -Start CF of 50 for now as she is not on insulin outpatient -HH/DMII diet (5) Hypertension: Plan: -Continue amlodipine and diuretics Plan The patient was discussed with Dr. 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 She remained stable in the ED. Labs including CBC, CMP, High sen trop, BNP, Covid 19/Influenza/RSV were unremarkable. Chest xray was read as Large right pleural effusion with underlying airspace opacity, slightly improved from prior exam.. The patient was recently see by Pulmonology on 08/05/23 for therapeutic/diagnostic right thoracentesis, 2L of fluid were drained. Pathology of the pleural fluid was negative for malignancy. Pleural protein and LDH were consistent with transudative process. She was seen by her PCP on 08/14/23 for progressive SOB since her thoracentesis. Repeat CXR showed recurrence of her right pleural effusion. Her PCP changed her Lasix dosing from 40 mg daily to 40 mg daily with an additional 40 mg PO on MWF and prescribed a course of Levaquin for possible Pneumonia. At the time of the exam the patient was sitting in bed in no acute distress. She states that she felt much improved after her first thoracentesis but her SOB progressively returned. She denies recent fever, chills, chest pain, productive cough, nausea/vomiting, abd pain, dysuria, hematuria, melena, and recent trauma. Her breathing is comfortable at rest but she becomes significantly dyspneic on exertion and is unable to lay flat due to her symptoms. She has been taking the Levaquin as prescribed but only had her am dose of lasix as she was running errands earlier today. She is a full code and would want her and Son to make medical decisions for her if she cannot make them herself. She has had to have a course of HD previously and had been trying to avoid having to go back on HD. I did explain to her that we may not have many options moving forward if this keeps occurring as a result of her CKD. Please refer to Dr. Dior' attestation for any changes to the treatment plan Allergies Allergy/AdvReac Type Severity Reaction Status Date / Time daptomycin Allergy Severe rhabdomyoly Verified 08/16/23 20:07 sis amoxicillin Allergy Intermediate HIVES & N/V Verified 08/16/23 20:07 clavulanic acid Allergy Intermediate HIVES & N/V Verified 08/16/23 20:07 vancomycin Allergy Intermediate pruritus Verified 08/16/23 20:07 sulfamethoxazole AdvReac Severe renal Verified 08/16/23 20:07 [From Bactrim] failure trimethoprim [From Bactrim] AdvReac Severe renal Verified 08/16/23 20:07 failure lisinopril AdvReac Intermediate NAUSEA/VOMI Verified 08/16/23 20:07 TING omeprazole AdvReac Intermediate Nausea Verified 08/16/23 20:07 Home Medications Medication Instructions Recorded Confirmed Type acetaminophen 650 mg 650 mg PO Q8H PRN Pain 10/07/20 08/16/23 History tablet,extended release docusate sodium 100 mg capsule 100 mg PO DAILY PRN Constipation 11/10/21 08/16/23 History (Stool Softener) triamcinolone acetonide 0.5 % 1 applic topical BID PRN skin 11/10/21 08/16/23 Rx topical cream irritation #60 grams loperamide 2 mg capsule (Imodium 2 mg PO Q6H PRN Diarrhea 12/13/21 08/16/23 History A-D) polyethylene glycol 3350 17 17 g PO DAILY PRN Constipation 12/13/21 08/16/23 History gram/dose oral powder (Miralax) Prosthetic Socket replacement #1 ea 08/13/22 08/14/23 Rx aspirin 81 mg tablet,delayed 81 mg PO DAILY 11/15/22 08/16/23 History release (Adult Low Dose Aspirin) diphenhydramine HCl 25 mg tablet 25 mg PO HS PRN Sleep 11/15/22 08/16/23 History (Sleep Aid (diphenhydramine)) ferrous sulfate 325 mg (65 mg 325 mg PO BID 03/11/23 08/16/23 History iron) tablet,delayed release mecobalamin (vitamin B12) 1,000 1,000 mcg sublingual DAILY #90 tabs 03/22/23 08/16/23 Rx mcg disintegrating tablet,sublingual blood glucose control high and low #1 ea 04/03/23 08/14/23 Rx solution (Accu-Chek Guide L1-L2 Control Solution) metoprolol tartrate 25 mg tablet 25 mg PO BID #180 tabs 05/27/23 08/16/23 Rx trazodone 50 mg tablet 25 mg (1/2 x 50 mg) PO HS #45 tabs 05/27/23 08/16/23 Rx Socket replacement and supplies #1 ea 05/30/23 08/14/23 Rx omeprazole 20 mg capsule,delayed 20 mg PO DAILY 90 days #90 caps 07/04/23 08/16/23 Rx release rosuvastatin 40 mg tablet 40 mg PO QAM #90 tabs 07/04/23 08/16/23 Rx ergocalciferol (vitamin D2) 1,250 50,000 unit PO WEEKLY #12 caps 07/11/23 08/16/23 Rx mcg (50,000 unit) capsule tramadol 50 mg tablet 50 mg PO BID PRN pain #60 tabs 07/22/23 08/16/23 Rx furosemide 40 mg tablet See Rx Instructions .Route .COMPLEX 08/14/23 08/16/23 History levofloxacin 750 mg tablet 750 mg PO Q OTHER DAY 7 days #4 08/14/23 08/16/23 Rx tabs amlodipine 10 mg tablet 5 mg PO QAM 08/16/23 08/16/23 History magnesium 500 mg tablet 500 mg PO DAILY 08/16/23 08/16/23 History sodium polystyrene sulfonate 15 60 ml PO WK 08/16/23 08/16/23 History gram-sorbitol 20 gram/60 mL oral susp (SPS (with sorbitol)) Past Med/Surg History Medical History SOB (shortness of breath) Stage 5 chronic kidney disease not on chronic dialysis Hyperkalemia Dyspnea Chronic kidney disease, stage 4 (severe) ESRD on dialysis Proteinuria Diabetic neuropathy Chronic constipation Vitamin D deficiency Chronic diastolic CHF (congestive heart failure) Diabetes mellitus type 2 with complications Charcot's arthropathy Chronic osteomyelitis Hypertension Non-traumatic rhabdomyolysis (02/2021) Postmenopausal bleeding Anemia of chronic disease Chronic back pain Chronic venous insufficiency Diabetic ulcer of left great toe PAD (peripheral artery disease) Morbid obesity Clostridium difficile colitis GERD (gastroesophageal reflux disease) Charcot's joint of foot due to diabetes Osteoarthritis Sleep apnea Dyslipidemia Surgical History History of vascular surgery (04/20/22) History of bilateral cataract extraction 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) Status post amputation of toe of right foot (11/14/20) S/P vascular surgery (11/2020) S/P femoral-popliteal bypass surgery S/P angioplasty (10/2019) S/P angioplasty (06/2019) History of cholecystectomy History of tooth extraction History of esophagogastroduodenoscopy (EGD) S/P epidural steroid injection H/O vascular surgery (01/2020) History of lumpectomy of right breast Status post tubal ligation Status post tonsillectomy Family History Mother Rheumatoid arthritis Father Emphysema of lung Peripheral artery disease Aunt Breast cancer Colorectal cancer Myocardial infarction Brother Prostate cancer Sister COPD (chronic obstructive pulmonary disease) Other No family history of adverse response to anesthesia Denies family history of Ovarian cancer CAD (coronary atherosclerotic disease) Social History Smoking Status: Never smoker Tobacco Type: Cigarettes packs per day: 2; Second Hand Exposure: No; Do You Dip or Chew Tobacco: No; Hx Alcohol Use: No Hx Substance Use: No Preferred Language: Frisian Communication Ability: Effective Visual Impairment: No Limitations Hearing Ability: Normal Configuration Consultant Required: No Beliefs That Will Affect Care: None marital status: Current Living Situation: Spouse and Family Current Living Situation Comment: lives with and son current occupational status: disabled How many Children do You have: 1 other: previous [facility] [employer] Feels Safe at Home: Yes Childhood Exposure to Second-Hand Smoke: Yes (father was a heavy smoker ) Diet: regular Diet Comment: regular caffeine: Yes (very little) during the past year weight has: remained stable Dental Care, Regularly: No Physical Activity Frequency: Does not Exercise Seatbelt Use: always Sunscreen Use: No Assistive Devices: Prosthesis and Scooter/Electric Scooter Physical Exam Physical Exam: Physical Exam: General: In no acute distress, stated age, chronically ill appearing but non- toxic HEENT: Normocephalic, atraumatic, no scleral icterus, pupils around round, symmetrical, and reactive to light, moist mucus membranes, trachea midline, no thyromegaly Chest/Pulm: No respiratory distress, symmetrical chest expansion, decreased breath sounds in the right lower and mid lung erazo, CTA in the left lung and upper right lung Cardiac: RRR, no murmurs noted Abdomen: Negative for ascites and bruising, normoactive bowel sounds, soft, non-tender to palpation throughout Musculoskeletal: No acute trauma on exam Extremities: Radial, dorsalis pedis, and posterior tibial pulses are intact and symmetrical, patient with pressure sock on LLE Skin: Warm, dry, no rashes , lesions, or scars noted Neuro: Alert and oriented to person, place, month, year, and president, no focal defects, no tremors noted Psych: No acute distress, calm and cooperative during the exam Results & Data Results & Data Vital Signs (Past 12 Hours) Vital Signs Temp Pulse Resp BP Pulse Ox O2 Del Method 08/16/23 18:53 93 Room Air 08/16/23 18:14 36.8 C 80 20 173/68 H 92 Room Air Laboratory Results Abnormal lab results 08/16/23 Range/Units 18:45 RBC 3.82 L (4.20-5.40) M/uL Hgb 10.5 L (12.0-16.0) g/dl Hct 32.7 L (37.0-47.0) % RDW Std Deviation 49.8 H (36.4-46.3) fL RDW Coeff of Adelina 16.2 H (11.5-14.5) % Neut # (Auto) 7.39 H (1.40-6.50) K/uL Lymph # (Auto) 0.97 L (1.20-3.40) K/uL BUN 43 H (6-23) mg/dl Creatinine 3.54 H (0.6-1.2) mg/dl Glucose 243 H (70-99(Fasting)) mg/dl B-Natriuretic Peptide 213 H (0-100) pg/ml Albumin 3.2 L (3.4-5.0) gm/dl Albumin/Globulin Ratio 0.8 L (0.9-2) Diagnostic Findings Chest X-Ray 08/16/23 18:19 XR chest 1V not portable CLINICAL HISTORY: Chest pain, nonspecific TECHNIQUE: Single frontal radiograph of the chest was obtained. Comparison: Comparison is made to chest radiograph 08/15/2023 FINDINGS: No lines and tubes are seen. The cardiomediastinal silhouette is obscured. Right lower lung airspace opacity is mildly improved from prior exam. Large right pleural effusion. IMPRESSION: Large right pleural effusion with underlying airspace opacity, slightly improved from prior exam. ACT 112: Negative or not required by law. Electronically signed by: Anthony Odell M.D. 08/16/2023 7:17 PM Code Status & VTE Plan Code Status Full code VTE Prophylaxis Plan VTE Prophylaxis will be ordered: Yes Supervising Physician Co-Signing Physician Notes I have personally seen, evaluated and examined the patient. I have also personally discussed the management of the patient with the resident physician/ALEX and I agree with the exam findings documented in the history and physical examination and the documented assessment and plan unless otherwise stated below. Brief Exam: In general is a pleasant 62-year-old female who is alert and oriented x 3, exam she is seated in her bed she is in no acute distress at the time my examination. HEENT: Normocephalic atraumatic. Heart: Regular rate and rhythm I do not appreciate murmur or ectopy or rub. Lungs: Diminished right mid and lower lung erazo. I do not appreciate any rhonchi or rales however exam is somewhat limited due to her body habitus. Abdomen: Obese soft nontender positive bowel sounds. Extremities: Right AKA noted with prosthesis in place. Left lower extremity trace edema no pitting edema. Neurological: Alert and oriented x 3 with no focal deficit. Assessment/plan: Sputum cultures, IV Zosyn, pulmonology consult for r econsideration of thoracentesis. Nephrology consultation for consideration of possible reintroducing hemodialysis. Dose of IV Lasix tonight reassess her volume status and creatinine in the morning. PG Care Time/CCT Total # of Minutes Spent Total Time Spent with Patient: Total time spent is greater than 50% in coordination of care (as documented) at patient's floor/unit and/or counseling patient: Coding [place] [address] INT INP/OBS CARE 3/75MIN Patient Type Established Medical Decision Making High Complexity Diagnoses Recurrent pleural effusion on right J90 SOB (shortness of breath) R06.02 Stage 5 chronic kidney disease not on chronic dialysis N18.5 Diabetes mellitus type 2 with complications E11.8 Hypertension I10
[2023-08-16] MEDS ORDERED: PIPERACILLIN/TAZOBACTAM 4.5 GM in DEXTROSE 5% MINI-B 100 ML IV ONE (20:54)
[2023-08-16] MEDS ORDERED: diphenhydrAMINE 50 MG/ML VIAL IV PRN (20:55)
[2023-08-16] MEDS ORDERED: GLUCOSE 40% GEL 15 GM TUBE PO PRN (21:06)
[2023-08-16] MEDS ORDERED: GLUCOSE 10 TAB/TUBE PO PRN (21:06)
[2023-08-16] MEDS ORDERED: CARBOHYDRATES FOR HYPOGLYCEMIA PO PRN (21:06)
[2023-08-16] MEDS ORDERED: GLUCAGON FOR INJ 1 MG VIAL SQ PRN (21:06)
[2023-08-16] MEDS ORDERED: DEXTROSE 50% 50 ML SYRINGE IV PRN (21:06)
[2023-08-16] MEDS ORDERED: hydrALAZINE HCL 20 MG/ML VIAL IV PRN (21:28)
--- NOTE | 2023-08-16 21:45 | CT Scan Report ---
Exam(s): CT CHEST Without Contrast EXAM: CT Chest Without Intravenous Contrast CLINICAL HISTORY: Reason for exam: recurrent pleural effusion, monitor for pneumonia. TECHNIQUE: Axial computed tomography images of the chest without intravenous contrast. CTDI is 26.58 mGy and DLP is 938.05 mGy-cm. Automated exposure control was utilized for the study. A dose lowering technique was utilized adhering to the principles of ALARA. COMPARISON: No relevant prior studies available. FINDINGS: Lungs: See below. Pleural space: Large RIGHT pleural effusion. Subjacent airspace consolidation, correlate for atelectasis versus pneumonia. Heart: Cardiomegaly. No significant pericardial effusion. No significant coronary artery calcifications. Bones/joints: Unremarkable. No acute fracture. No dislocation. Soft tissues: Unremarkable. Vasculature: Atherosclerotic change of the aorta, with coronary involvement. No thoracic aortic aneurysm. Lymph nodes: Unremarkable. No enlarged lymph nodes. IMPRESSION: Large RIGHT pleural effusion. Subjacent airspace consolidation, correlate for atelectasis versus pneumonia. Electronically signed by: Yan Camp MD 08/16/23 21:44 PM
[2023-08-16] MEDS: traMADol HCL 50 MG TABLET PO STA (21:47)
[2023-08-16] MEDS: PIPERACILLIN/TAZOBACTAM 4.5 GM/100 ML BAG IV STA (21:53)
[2023-08-16] MEDS: POTASSIUM CHLORIDE / WTR 10 MEQ/100 ML PLCT IV SCH (21:53)
[2023-08-16] MEDS: FUROSEMIDE INJ 20 MG/2 ML VIAL IV ONE (21:53)
[2023-08-16] MEDS ORDERED: DOCUSATE SODIUM 100 MG CAP PO PRN (22:44)
[2023-08-16] MEDS ORDERED: diphenhydrAMINE Capsule 25 MG CAP PO PRN (23:01)
[2023-08-16] MEDS ORDERED: Patient's HEIGHT &/or WEIGHT Needed STA (23:03)
[2023-08-16] MEDS: METOPROLOL TARTRATE 25 MG TAB PO SCH (23:32)
[2023-08-17] MEDS: INSULIN ASPART PER UNIT CHARGE SC STA (00:49)
[2023-08-17] MEDS: PIPERACILLIN/TAZOBACTAM 4.5 GM in DEXTROSE 5% MINI-B 100 ML IV SCH (05:00)
[2023-08-17 06:22] LABS: Basophils # (auto) 0.06 K/uL (0.00-0.20); Basophils % (auto) 0.7 %; Eosinophils # (auto) 0.23 K/uL (0.00-0.50); Eosinophils % (auto) 2.5 %; Hematocrit (blood only) 32.3 % (37.0-47.0); Hemoglobin 10.3 g/dl (12.0-16.0); Immature Granulocytes # (auto) 0.08 K/uL (0.01-0.20); Immature Granulocytes % (auto) 0.9 %; Lymphocytes # (auto) 1.49 K/uL (1.20-3.40); Lymphocytes % (auto) 16.2 %; Mean Corpuscular Hemoglobin 27.3 pg (25.0-34.0); Mean Corpuscular Hgb Conc 31.9 g/dL (32.0-36.0); Mean Corpuscular Volume 85.7 fL (80.0-100.0); Mean Platelet Volume 9.4 fL (9.4-12.4); Monocytes # (auto) 0.69 K/uL (0.11-0.59); Monocytes % (auto) 7.5 %; Neutrophils # (auto) 6.67 K/uL (1.40-6.50); Neutrophils % (auto) 72.2 %; Platelet Count 293 K/uL (130-400); RDW Coefficient of Variation 16.4 % (11.5-14.5); RDW Standard Deviation 50.7 fL (36.4-46.3); Red Blood Count 3.77 M/uL (4.20-5.40); White Blood Count 9.22 K/ul (4.8-10.8)
[2023-08-17 06:43] LABS: BUN Creatinine Ratio 11.8 (10-20); Calcium 8.7 mg/dl (8.6-10.3); Creatinine Clr Calc Pharmacy 18.4 ml/min; Est GFR (African American) 14.5 ml/min; Est GFR (Non-African American) 12.5 ml/min; Magnesium 2.3 mg/dl (1.7-2.4); Potassium 3.7 mmol/L (3.5-5.1)
[2023-08-17 06:51] LABS: Prothrombin Time 11.4 Seconds (9.0-12.0)
[2023-08-17] MEDS ORDERED: hydrALAZINE HCL 20 MG/ML VIAL IV PRN (07:33)
[2023-08-17] MEDS: PANTOprazole 40 MG TAB PO SCH (07:43)
[2023-08-17] MEDS: ASPIRIN 81 MG ECTAB PO SCH (07:43)
[2023-08-17] MEDS: amLODIPine BESYLATE 5 MG TAB PO SCH (07:43)
[2023-08-17] MEDS: ROSUVASTATIN CALCIUM 20 MG TAB PO SCH (07:43)
[2023-08-17] MEDS: FERROUS SULFATE 325 MG TAB PO SCH (07:43)
[2023-08-17] MEDS: MAGNESIUM OXIDE 400 MG TAB PO SCH (07:43)
[2023-08-17] MEDS: traMADol HCL 50 MG TABLET PO PRN (07:49)
--- NOTE | 2023-08-17 09:09 | Electrocardiogram Report ---
Test Reason : Blood Pressure : / mmHG Vent. Rate : 080 BPM Atrial Rate : 080 BPM P-R Int : 228 ms QRS Dur : 116 ms QT Int : 406 ms P-R-T Axes : -12 -43 -10 degrees QTc Int : 468 ms Poor data quality, interpretation may be adversely affected Sinus rhythm with 1st degree A-V block Left axis deviation Old Septal infarct (cited on or before 18-JAN-2023) Abnormal ECG When compared with ECG of 18-JAN-2023 16:20, No significant change Confirmed by Nayan Vallejo ([id number]) on 08/17/2023 9:09:00 AM Referred By: REFERRED SELF Confirmed By:Nayan Vallejo
[2023-08-17] MEDS: INSULIN ASPART PER UNIT CHARGE SC SCH (09:18)
--- NOTE | 2023-08-17 09:19 | Nephrology Consultation ---
Date of Consultation August 17, 2023 Assessment & Plan (1) Stage 5 chronic kidney disease not on chronic dialysis: * ESKD due to biopsy proven DKD. Baseline Cr 3.5 * Required IHD 10/30-01/30 following [place] biopsy due to perinephric hematoma * Declined AVF unless HD becomes permanent * Electrolyte balance is acceptable at this time (2) Recurrent pleural effusion on right: * Initial 1L thoracentesis 08/05/23 - transudative * Now presents w/ large recurrent R effusion w/ compressive atelectasis * Pulmonology plans thoracentesis this morning * Will change from Furosemide 40 mg daily to Bumex 1 mg po BID * Monitor UO, PRP, pleural effusion * If recurrent effusion despite increased diuretic dose or progressive CKD, will then consider IJ TCC and initiation of HD. Discussed w/ patient today. She is agreeable to this plan of care History of Present Illness Reason for Consultation: CKD Attending Physician: David Roberto MD History of Present Illness Mrs. Simpson is a 62 year old white female who is seen at the request of Dr. Roberto for evaluation/management of CKD. Information for the HPI is obtained from direct patient interview and review of the EMR. HPI is summarized as follows: Mrs. Simpson has CKD stage G5 (ESKD). Baseline Cr has been 3.0-3.5. Her primary [place] is Dr. Mei. Outpatient evaluation revealed proteinuria. 10/30 [place] kidney biopsy was c/w DKD. Unfortunately procedure was complicated by perinephric hematoma and ELROY/CKD requiring IJ TCC and initiation of HD. 01/30 patient recovered renal function and came off HD. Her Cr stabilized at 3.5. She declined AVF creation unless permanent HD was necessary. 08/05/23 Mrs. Simpson developed dyspnea. She was found to have a R pleural effusion. 1 L thoracentesis was completed. Fluid was transudative. [facility] 08/16/23 with recurrent SOB. CXR revealed recurrent R pleural effusion 2/3 up with compressive atelectasis. Pulmonology plans thoracentesis later this morning. Mrs. Simpson denies fever, cough, sputum production or uremic symptoms. She remains on Furosemide 40 mg po daily and reports good UO. 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, Morbid Obesity, and HTN Allergies Allergy/AdvReac Type Severity Reaction Status Date / Time daptomycin Allergy Severe rhabdomyoly Verified 08/16/23 20:07 sis amoxicillin Allergy Intermediate HIVES & N/V Verified 08/16/23 20:07 clavulanic acid Allergy Intermediate HIVES & N/V Verified 08/16/23 20:07 vancomycin Allergy Intermediate pruritus Verified 08/16/23 20:07 sulfamethoxazole AdvReac Severe renal Verified 08/16/23 20:07 [From Bactrim] failure trimethoprim [From Bactrim] AdvReac Severe renal Verified 08/16/23 20:07 failure lisinopril AdvReac Intermediate NAUSEA/VOMI Verified 08/16/23 20:07 TING omeprazole AdvReac Intermediate Nausea Verified 08/16/23 20:07 Home Medications Medication Instructions Recorded Confirmed Type acetaminophen 650 mg 650 mg PO Q8H PRN Pain 10/07/20 08/16/23 History tablet,extended release docusate sodium 100 mg capsule 100 mg PO DAILY PRN Constipation 11/10/21 08/16/23 History (Stool Softener) triamcinolone acetonide 0.5 % 1 applic topical BID PRN skin 11/10/21 08/16/23 Rx topical cream irritation #60 grams loperamide 2 mg capsule (Imodium 2 mg PO Q6H PRN Diarrhea 12/13/21 08/16/23 History A-D) polyethylene glycol 3350 17 17 g PO DAILY PRN Constipation 12/13/21 08/16/23 History gram/dose oral powder (Miralax) Prosthetic Socket replacement #1 ea 08/13/22 08/14/23 Rx aspirin 81 mg tablet,delayed 81 mg PO DAILY 11/15/22 08/16/23 History release (Adult Low Dose Aspirin) diphenhydramine HCl 25 mg tablet 25 mg PO HS PRN Sleep 11/15/22 08/16/23 History (Sleep Aid (diphenhydramine)) ferrous sulfate 325 mg (65 mg 325 mg PO BID 03/11/23 08/16/23 History iron) tablet,delayed release mecobalamin (vitamin B12) 1,000 1,000 mcg sublingual DAILY #90 tabs 03/22/23 08/16/23 Rx mcg disintegrating tablet,sublingual blood glucose control high and low #1 ea 04/03/23 08/14/23 Rx solution (Accu-Chek Guide L1-L2 Control Solution) metoprolol tartrate 25 mg tablet 25 mg PO BID #180 tabs 05/27/23 08/16/23 Rx trazodone 50 mg tablet 25 mg (1/2 x 50 mg) PO HS #45 tabs 05/27/23 08/16/23 Rx Socket replacement and supplies #1 ea 05/30/23 08/14/23 Rx omeprazole 20 mg capsule,delayed 20 mg PO DAILY 90 days #90 caps 07/04/23 08/16/23 Rx release rosuvastatin 40 mg tablet 40 mg PO QAM #90 tabs 07/04/23 08/16/23 Rx ergocalciferol (vitamin D2) 1,250 50,000 unit PO WEEKLY #12 caps 07/11/23 08/16/23 Rx mcg (50,000 unit) capsule tramadol 50 mg tablet 50 mg PO BID PRN pain #60 tabs 07/22/23 08/16/23 Rx furosemide 40 mg tablet See Rx Instructions .Route .COMPLEX 08/14/23 08/16/23 History levofloxacin 750 mg tablet 750 mg PO Q OTHER DAY 7 days #4 08/14/23 08/16/23 Rx tabs amlodipine 10 mg tablet 5 mg PO QAM 08/16/23 08/16/23 History magnesium 500 mg tablet 500 mg PO DAILY 08/16/23 08/16/23 History sodium polystyrene sulfonate 15 60 ml PO WK 08/16/23 08/16/23 History gram-sorbitol 20 gram/60 mL oral susp (SPS (with sorbitol)) Patient History Medical History SOB (shortness of breath) Stage 5 chronic kidney disease not on chronic dialysis Hyperkalemia Dyspnea Chronic kidney disease, stage 4 (severe) ESRD on dialysis Proteinuria Diabetic neuropathy Chronic constipation Vitamin D deficiency Chronic diastolic CHF (congestive heart failure) Diabetes mellitus type 2 with complications Charcot's arthropathy Chronic osteomyelitis Hypertension Non-traumatic rhabdomyolysis (02/2021) Postmenopausal bleeding Anemia of chronic disease Chronic back pain Chronic venous insufficiency Diabetic ulcer of left great toe PAD (peripheral artery disease) S/P right lower extremity angiogram, mechanical thrombectomy of pre-existing superficial femoral artery stent belen [employer] [place] Omni catheter, balloon angioplasty of the superficial femoral artery stent using 5 X 200 mm Coats balloon, balloon angioplasty of the superficial femoral artery 6 X 250 mm IN.PACT drug coated balloon, stent angioplasty of the superficial femoral artery using 5 X 150 mm INOVA bare metal stent, and debridement of the right lateral foot on 11/14/[address] Lomeli. S/P bilateral SFA stenting Morbid obesity BMI 45.7 Clostridium difficile colitis history (~11/2016) -- treated no problems since. GERD (gastroesophageal reflux disease) Charcot's joint of foot due to diabetes Osteoarthritis Sleep apnea no cpap Dyslipidemia Surgical History History of vascular surgery (04/20/22) L SFA Angio Extremity Unilateral Fem Pop Balloon Atherectomy History of bilateral cataract extraction 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) Status post amputation of toe of right foot (11/14/20) amputation metatarsal w/ toe, R S/P vascular surgery (11/2020) R fem-pop [id number] w/ stent and angioplasty S/P femoral-popliteal bypass surgery S/P angioplasty (10/2019) RT SFA atherectomy/angioplasty w/ MARSHA S/P angioplasty (06/2019) LT SFA angioplastly with MARSHA History of cholecystectomy History of tooth extraction History of esophagogastroduodenoscopy (EGD) S/P epidural steroid injection H/O vascular surgery (01/2020) LT SFA atherectomy, MARSHA w/ supera stenting History of lumpectomy of right breast benign Status post tubal ligation Status post tonsillectomy Family History Mother Rheumatoid arthritis Father Emphysema of lung Peripheral artery disease Aunt Breast cancer MOMS SIDE Colorectal cancer MOMS SIDE Myocardial infarction MOMS SIDE Brother Prostate cancer Sister COPD (chronic obstructive pulmonary disease) Other No family history of adverse response to anesthesia Denies family history of Ovarian cancer CAD (coronary atherosclerotic disease) Social History Smoking Status: Former smoker Tobacco Type: Cigarettes packs per day: 2; Second Hand Exposure: No; Do You Dip or Chew Tobacco: No; Hx Alcohol Use: No Hx Substance Use: No Preferred Language: Yi Communication Ability: Effective Visual Impairment: No Limitations Hearing Ability: Normal Rehab Tech Required: No Beliefs That Will Affect Care: None marital status: Current Living Situation: Family Current Living Situation Comment: lives with and son current occupational status: disabled How many Children do You have: 1 Other Information That Helps Us Care for You: No other: previous worked at [employer] Feels Safe at Home: Yes Safety Concerns: Feels Safe At This Time Childhood Exposure to Second-Hand Smoke: Yes (father was a heavy smoker ) Diet: regular Diet Comment: regular caffeine: Yes (very little) during the past year weight has: remained stable Dental Care, Regularly: No Physical Activity Frequency: Does not Exercise Seatbelt Use: always Sunscreen Use: No Assistive Devices: Cane, Denture - Upper, Denture - Lower, Prosthesis and Walker Review of Systems Constitutional: no fever Eyes: no problem reported Ear, Nose, Mouth, Throat: no problem reported Respiratory: + dyspnea; no cough and no hemoptysis Cardiovascular: no chest pain Gastrointestinal: no abdominal pain, no nausea, no vomiting and no diarrhea/loose stools Genitourinary: no dysuria and no hematuria Integumentary: no rash Physical Exam Constitutional: not in distress Eyes: PERRL, conjunctivae normal, anicteric sclerae ENMT: Mouth: + dry oral mucous membranes Neck: trachea midline, no thyromegaly Respiratory: Auscultation: + diminished lung sounds (2/3 up on R side, L - CTA) Cardiovascular: RRR, no murmur, no edema Gastrointestinal (Abdomen): normal bowel sounds, soft, nontender, no hepatosplenomegaly Musculoskeletal: R BKA Skin: + turgor decreased Neurologic: Speech / Cognition: normal speech and normal cognition Psychiatric: Affect: euthymic affect Results & Data Vital Signs (Past 12 Hours) Vital Signs Temp Pulse Pulse Resp BP BP BP 08/17/23 07:40 36.8 C 68 16 149/73 H 08/17/23 07:17 70 08/17/23 03:03 36.6 C 65 18 128/72 08/16/23 23:31 76 08/16/23 22:44 08/16/23 22:44 36.9 C 16 147/112 H 08/16/23 22:37 08/16/23 22:00 86 21 179/87 H 08/16/23 21:30 97 H 25 H Pulse Ox O2 Del Method O2 Flow Rate 08/17/23 07:40 96 Nasal Cannula 2 08/17/23 07:17 08/17/23 03:03 99 Nasal Cannula 2 08/16/23 23:31 08/16/23 22:44 Nasal Cannula 2 08/16/23 22:44 97 Nasal Cannula 2 08/16/23 22:37 Room Air 08/16/23 22:00 98 Nasal Cannula 2 08/16/23 21:30 96 Nasal Cannula 2 Laboratory Results Laboratory Results WBC 9.22 K/ul (4.8-10.8) 08/17/23 05:26 RBC 3.77 M/uL (4.20-5.40) L 08/17/23 05:26 Hgb 10.3 g/dl (12.0-16.0) L 08/17/23 05:26 Hct 32.3 % (37.0-47.0) L 08/17/23 05:26 MCV 85.7 fL (80.0-100.0) 08/17/23 05:26 MCH 27.3 pg (25.0-34.0) 08/17/23 05:26 MCHC 31.9 g/dL (32.0-36.0) L 08/17/23 05:26 RDW Std Deviation 50.7 fL (36.4-46.3) H 08/17/23 05:26 RDW Coeff of Adelina 16.4 % (11.5-14.5) H 08/17/23 05:26 Plt Count 293 K/uL (130-400) 08/17/23 05:26 MPV 9.4 fL (9.4-12.4) 08/17/23 05:26 Immature Gran % (Auto) 0.9 % 08/17/23 05:26 Neut % (Auto) 72.2 % 08/17/23 05:26 Lymph % (Auto) 16.2 % 08/17/23 05:26 [place] % (Auto) 7.5 % 08/17/23 05:26 Eos % (Auto) 2.5 % 08/17/23 05:26 Baso % (Auto) 0.7 % 08/17/23 05:26 Neut # (Auto) 6.67 K/uL (1.40-6.50) H 08/17/23 05:26 Lymph # (Auto) 1.49 K/uL (1.20-3.40) 08/17/23 05:26 [place] # (Auto) 0.69 K/uL (0.11-0.59) H 08/17/23 05:26 Eos # (Auto) 0.23 K/uL (0.00-0.50) 08/17/23 05:26 Baso # (Auto) 0.06 K/uL (0.00-0.20) 08/17/23 05:26 Immature Gran # (Auto) 0.08 K/uL (0.01-0.20) 08/17/23 05:26 PT 11.4 Seconds (9.0-12.0) 08/17/23 05:26 INR 1.0 (0.9-1.1) 08/17/23 05:26 APTT 29 Seconds (21-31) 08/16/23 18:45 PTT Ratio 1.0 08/16/23 18:45 Sodium 137 mmol/L (136-145) 08/17/23 05:26 Potassium 3.7 mmol/L (3.5-5.1) 08/17/23 05:26 Chloride 102 mmol/L (98-107) 08/17/23 05:26 Carbon Dioxide 28 mmol/L (21-32) 08/17/23 05:26 Anion Gap 7 (3-11) 08/17/23 05:26 BUN 43 mg/dl (6-23) H 08/17/23 05:26 Creatinine 3.65 mg/dl (0.6-1.2) H 08/17/23 05:26 Est Cr Clr Drug Dosing 18.4 ml/min 08/17/23 05:26 Est GFR ( Amer) 14.5 ml/min 08/17/23 05:26 Est GFR (Non-Af Amer) 12.5 ml/min 08/17/23 05:26 BUN/Creatinine Ratio 11.8 (10-20) 08/17/23 05:26 Glucose 178 mg/dl (70-99(Fasting)) H 08/17/23 05:26 POC Glucose 180 mg/dl (70-99) H 08/17/23 08:13 Calcium 8.7 mg/dl (8.6-10.3) 08/17/23 05:26 Magnesium 2.3 mg/dl (1.7-2.4) 08/17/23 05:26 Total Bilirubin 0.3 mg/dl (0.2-1.0) 08/16/23 18:45 AST 13 U/L (13-39) 08/16/23 18:45 ALT 9 U/L (7-52) 08/16/23 18:45 Alkaline Phosphatase 103 U/L (34-104) 08/16/23 18:45 Troponin I High Sens 10.9 pg/ml (0-14) 08/16/23 18:45 B-Natriuretic Peptide 213 pg/ml (0-100) H 08/16/23 18:45 Total Protein 7.1 gm/dl (6.0-8.3) 08/16/23 18:45 Albumin 3.2 gm/dl (3.4-5.0) L 08/16/23 18:45 Globulin 3.9 gm/dl (2.5-4.0) 08/16/23 18:45 Albumin/Globulin Ratio 0.8 (0.9-2) L 08/16/23 18:45 Procalcitonin 0.13 ng/ml (0-0.5) 08/16/23 18:45 SARS-CoV-2 (PCR) NEGATIVE (Negative) 08/16/23 18:43 Influenza Type A (PCR) Negative (Neg) 08/16/23 18:43 Influenza Type B (PCR) Negative (Neg) 08/16/23 18:43 RSV (RT-PCR) Negative (Neg) 08/16/23 18:43 Impressions Chest X-Ray 08/16/23 18:19 XR chest 1V not portable CLINICAL HISTORY: Chest pain, nonspecific TECHNIQUE: Single frontal radiograph of the chest was obtained. Comparison: Comparison is made to chest radiograph 08/15/2023 FINDINGS: No lines and tubes are seen. The cardiomediastinal silhouette is obscured. Right lower lung airspace opacity is mildly improved from prior exam. Large right pleural effusion. IMPRESSION: Large right pleural effusion with underlying airspace opacity, slightly improved from prior exam. ACT 112: Negative or not required by law. Electronically signed by: Anthony Odell M.D. 08/16/2023 7:[address] 08/16/23 20:54 Exam(s): CT CHEST Without Contrast EXAM: CT Chest Without Intravenous Contrast CLINICAL HISTORY: Reason for exam: recurrent pleural effusion, monitor for pneumonia. TECHNIQUE: Axial computed tomography images of the chest without intravenous contrast. CTDI is 26.58 mGy and DLP is 938.05 mGy-cm. Automated exposure control was utilized for the study. A dose lowering technique was utilized adhering to the principles of ALARA. COMPARISON: No relevant prior studies available. FINDINGS: Lungs: See below. Pleural space: Large RIGHT pleural effusion. Subjacent airspace consolidation, correlate for atelectasis versus pneumonia. Heart: Cardiomegaly. No significant pericardial effusion. No significant coronary artery calcifications. Bones/joints: Unremarkable. No acute fracture. No dislocation. Soft tissues: Unremarkable. Vasculature: Atherosclerotic change of the aorta, with coronary involvement. No thoracic aortic aneurysm. Lymph nodes: Unremarkable. No enlarged lymph nodes. IMPRESSION: Large RIGHT pleural effusion. Subjacent airspace consolidation, correlate for atelectasis versus pneumonia. Electronically signed by: Yan Camp MD 08/16/23 21:44 PM PG Care Time/CCT Total # of Minutes Spent Total Time Spent with Patient: Total time spent is greater than 50% in coordination of care (as documented) at patient's floor/unit and/or counseling patient: Coding Level of Care Code 32715 OFFICE CONSULT LVL 5/55M Diagnoses Stage 5 chronic kidney disease not on chronic dialysis N18.5 Recurrent pleural effusion on right J90
--- NOTE | 2023-08-17 10:32 | Pulmonary Consultation ---
Date of Consultation August 17, 2023 Assessment & Plan (1) Pleural effusion: Plan Impression: 62-year-old female with chronic kidney disease and heart failure with preserved ejection fraction with recurrent right-sided effusion. Prior characteristics were borderline exudative with neutrophilic predominance with negative cytology and cultures. Suspect this is related to her heart failure with preserved ejection fraction as well as her chronic kidney disease however she is symptomatic at this point in time and the effusion is unlikely to be responsive to medications in short order. Thoracentesis is warranted. Recommendations: 1. Pleural effusion, recurrent. Will plan on repeat ultrasound-guided thoracentesis. Fluid will be sent for repeat microbiologic as well as cytologic characterization at this time to see if there is any changes. Briefly discussed with nephrology. They are trying to adjust her diuretic regiment but if the effusion remains refractory, consideration for dialysis may be appropriate. Given the benign nature of her effusion, Pleurx catheter would not be an appropriate intervention unless it were to be performed in a palliative setting. Could consider an attempt at pleurodesis if refractory. Given the cirrhotic appearance of her liver, nonalcoholic steatohepatitis would be in the differential which may be contributing to the pleural fluid accumulation. Clinical correlation for ascites with the primary admitting service is recommended 2. Dyspnea: Much improved after thoracentesis on previous hospitalization and expect she will have a similar clinical response. Patient will have a chest x-ray performed ports the thoracentesis. If the x-ray is unrevealing, she can likely be dismissed from the hospital. 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 Pulmonary will sign off after the thoracentesis is completed History of Present Illness Attending Physician: David Roberto MD History of Present Illness Asked by hospitalist to evaluate this patient with recurrent pleural effusion. History is obtained from discussion with the patient as well as review the electronic medical record. Patient is a 62-year-old female with a history of chronic kidney disease, diabetes, peripheral vascular disease, and heart failure with preserved ejection fraction who had been seen in the pulmonary clinic by the PA few weeks ago. She underwent thoracentesis where 2 L was removed. Pathology was negative. Fluid at that point in time was borderline exudate based on LDH and protein. Cultures and cytology were negative. She was brought to the emergency room with shortness of breath. Chest x-ray demonstrated reaccumulation of the right pleural effusion. She been seen in consultation by nephrology and had her diuretic regimen adjusted. Pulmonary is consulted for repeat thoracentesis. The patient states that she got relief with her initial thoracentesis for about a week. She has not had any fevers chills night sweats or other constitutional symptoms. No cough or sputum production. No chest pain or trauma. Allergies Allergy/AdvReac Type Severity Reaction Status Date / Time daptomycin Allergy Severe rhabdomyoly Verified 08/16/23 20:07 sis amoxicillin Allergy Intermediate HIVES & N/V Verified 08/16/23 20:07 clavulanic acid Allergy Intermediate HIVES & N/V Verified 08/16/23 20:07 vancomycin Allergy Intermediate pruritus Verified 08/16/23 20:07 sulfamethoxazole AdvReac Severe renal Verified 08/16/23 20:07 [From Bactrim] failure trimethoprim [From Bactrim] AdvReac Severe renal Verified 08/16/23 20:07 failure lisinopril AdvReac Intermediate NAUSEA/VOMI Verified 08/16/23 20:07 TING omeprazole AdvReac Intermediate Nausea Verified 08/16/23 20:07 Home Medications Medication Instructions Recorded Confirmed Type acetaminophen 650 mg 650 mg PO Q8H PRN Pain 10/07/20 08/16/23 History tablet,extended release docusate sodium 100 mg capsule 100 mg PO DAILY PRN Constipation 11/10/21 08/16/23 History (Stool Softener) triamcinolone acetonide 0.5 % 1 applic topical BID PRN skin 11/10/21 08/16/23 Rx topical cream irritation #60 grams loperamide 2 mg capsule (Imodium 2 mg PO Q6H PRN Diarrhea 12/13/21 08/16/23 History A-D) polyethylene glycol 3350 17 17 g PO DAILY PRN Constipation 12/13/21 08/16/23 History gram/dose oral powder (Miralax) Prosthetic Socket replacement #1 ea 08/13/22 08/14/23 Rx aspirin 81 mg tablet,delayed 81 mg PO DAILY 11/15/22 08/16/23 History release (Adult Low Dose Aspirin) diphenhydramine HCl 25 mg tablet 25 mg PO HS PRN Sleep 11/15/22 08/16/23 History (Sleep Aid (diphenhydramine)) ferrous sulfate 325 mg (65 mg 325 mg PO BID 03/11/23 08/16/23 History iron) tablet,delayed release mecobalamin (vitamin B12) 1,000 1,000 mcg sublingual DAILY #90 tabs 03/22/23 08/16/23 Rx mcg disintegrating tablet,sublingual blood glucose control high and low #1 ea 04/03/23 08/14/23 Rx solution (Accu-Chek Guide L1-L2 Control Solution) metoprolol tartrate 25 mg tablet 25 mg PO BID #180 tabs 05/27/23 08/16/23 Rx trazodone 50 mg tablet 25 mg (1/2 x 50 mg) PO HS #45 tabs 05/27/23 08/16/23 Rx Socket replacement and supplies #1 ea 05/30/23 08/14/23 Rx omeprazole 20 mg capsule,delayed 20 mg PO DAILY 90 days #90 caps 07/04/23 08/16/23 Rx release rosuvastatin 40 mg tablet 40 mg PO QAM #90 tabs 07/04/23 08/16/23 Rx ergocalciferol (vitamin D2) 1,250 50,000 unit PO WEEKLY #12 caps 07/11/23 08/16/23 Rx mcg (50,000 unit) capsule tramadol 50 mg tablet 50 mg PO BID PRN pain #60 tabs 07/22/23 08/16/23 Rx furosemide 40 mg tablet See Rx Instructions .Route .COMPLEX 08/14/23 08/16/23 History levofloxacin 750 mg tablet 750 mg PO Q OTHER DAY 7 days #4 08/14/23 08/16/23 Rx tabs amlodipine 10 mg tablet 5 mg PO QAM 08/16/23 08/16/23 History magnesium 500 mg tablet 500 mg PO DAILY 08/16/23 08/16/23 History sodium polystyrene sulfonate 15 60 ml PO WK 08/16/23 08/16/23 History gram-sorbitol 20 gram/60 mL oral susp (SPS (with sorbitol)) Patient History Medical History SOB (shortness of breath) Stage 5 chronic kidney disease not on chronic dialysis Hyperkalemia Dyspnea Chronic kidney disease, stage 4 (severe) ESRD on dialysis Proteinuria Diabetic neuropathy Chronic constipation Vitamin D deficiency Chronic diastolic CHF (congestive heart failure) Diabetes mellitus type 2 with complications Charcot's arthropathy Chronic osteomyelitis Hypertension Non-traumatic rhabdomyolysis (02/2021) Postmenopausal bleeding Anemia of chronic disease Chronic back pain Chronic venous insufficiency Diabetic ulcer of left great toe PAD (peripheral artery disease) S/P right lower extremity angiogram, mechanical thrombectomy of pre-existing superficial femoral artery stent belen Drake [place] Omni catheter, balloon angioplasty of the superficial femoral artery stent using 5 X 200 mm [place] balloon, balloon angioplasty of the superficial femoral artery 6 X 250 mm IN.PACT drug coated balloon, stent angioplasty of the superficial femoral artery using 5 X 150 mm INOVA bare metal stent, and debridement of the right lateral foot on 11/14/[address] Lomeli. S/P bilateral SFA stenting Morbid obesity BMI 45.7 Clostridium difficile colitis history (~11/2016) -- treated no problems since. GERD (gastroesophageal reflux disease) Charcot's joint of foot due to diabetes Osteoarthritis Sleep apnea no cpap Dyslipidemia Surgical History History of vascular surgery (04/20/22) L SFA Angio Extremity Unilateral Fem Pop Balloon Atherectomy History of bilateral cataract extraction 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) Status post amputation of toe of right foot (11/14/20) amputation metatarsal w/ toe, R S/P vascular surgery (11/2020) R fem-pop [id number] w/ stent and angioplasty S/P femoral-popliteal bypass surgery S/P angioplasty (10/2019) RT SFA atherectomy/angioplasty w/ MARSHA S/P angioplasty (06/2019) LT SFA angioplastly with MARSHA History of cholecystectomy History of tooth extraction History of esophagogastroduodenoscopy (EGD) S/P epidural steroid injection H/O vascular surgery (01/2020) LT SFA atherectomy, MARSHA w/ supera stenting History of lumpectomy of right breast benign Status post tubal ligation Status post tonsillectomy Family History Mother Rheumatoid arthritis Father Emphysema of lung Peripheral artery disease Aunt Breast cancer MOMS SIDE Colorectal cancer MOMS SIDE Myocardial infarction MOMS SIDE Brother Prostate cancer Sister COPD (chronic obstructive pulmonary disease) Other No family history of adverse response to anesthesia Denies family history of Ovarian cancer CAD (coronary atherosclerotic disease) Social History Smoking Status: Former smoker Tobacco Type: Cigarettes packs per day: 2; Second Hand Exposure: No; Do You Dip or Chew Tobacco: No; Hx Alcohol Use: No Hx Substance Use: No Preferred Language: [place]uran Communication Ability: Effective Visual Impairment: No Limitations Hearing Ability: Normal Stage Set Designer Required: No Beliefs That Will Affect Care: None marital status: Current Living Situation: Family Current Living Situation Comment: lives with and son current occupational status: disabled How many Children do You have: 1 Other Information That Helps Us Care for You: No other: previous worked at [employer] Feels Safe at Home: Yes Safety Concerns: Feels Safe At This Time Childhood Exposure to Second-Hand Smoke: Yes (father was a heavy smoker ) Diet: regular Diet Comment: regular caffeine: Yes (very little) during the past year weight has: remained stable Dental Care, Regularly: No Physical Activity Frequency: Does not Exercise Seatbelt Use: always Sunscreen Use: No Assistive Devices: Cane, Denture - Upper, Denture - Lower, Prosthesis and Walker Review of Systems Review of Systems: Please refer to admission H&P. No additions or deletions Physical Exam Physical Exam: VITAL SIGNS - Vital signs and nursing notes were reviewed. GENERAL - 62-year-old female appearing her stated age who is in no acute distress. Communicates well with provider and answers questions appropriately. SKIN - Without rashes or lesions. NOSE - Midline and without cyanosis. MOUTH/OROPHARYNX - Without perioral cyanosis. NECK - Neck with FROM. LUNGS - Chest wall evaluation demonstrates a normal chest wall A:P diameter. Auscultation reveals decreased breath sounds to the RIGHT sided lung field. No wheezes, rales, or rhonchi appreciated. CARDIAC - RRR with S1/S2. No murmur, rubs, or gallops appreciated. EXTREMITIES - Nail clubbing not present. RIGHT BKA. +3/5 radial palpated throughout. PSYCH - A&Ox3 and cooperates fully with examiner. Pt is very pleasant and interacts well with examiner. Results & Data Results & Data Vital Signs (Past 12 Hours) Vital Signs Temp Pulse Pulse Resp BP BP Pulse Ox 08/17/23 07:40 36.8 C 68 16 149/73 H 96 08/17/23 07:17 70 08/17/23 03:03 36.6 C 65 18 128/72 99 08/16/23 23:31 76 08/16/23 22:44 08/16/23 22:44 36.9 C 16 147/112 H 97 08/16/23 22:37 O2 Del Method O2 Flow Rate 08/17/23 07:40 Nasal Cannula 2 08/17/23 07:17 08/17/23 03:03 Nasal Cannula 2 08/16/23 23:31 08/16/23 22:44 Nasal Cannula 2 08/16/23 22:44 Nasal Cannula 2 08/16/23 22:37 Room Air Critical Care Results & Data Vital Signs (Past 12 Hours) Vital Signs Temp Pulse Pulse Resp BP BP Pulse Ox 08/17/23 07:40 36.8 C 68 16 149/73 H 96 08/17/23 07:17 70 08/17/23 03:03 36.6 C 65 18 128/72 99 08/16/23 23:31 76 08/16/23 22:44 08/16/23 22:44 36.9 C 16 147/112 H 97 08/16/23 22:37 O2 Del Method O2 Flow Rate 08/17/23 07:40 Nasal Cannula 2 08/17/23 07:17 08/17/23 03:03 Nasal Cannula 2 08/16/23 23:31 08/16/23 22:44 Nasal Cannula 2 08/16/23 22:44 Nasal Cannula 2 08/16/23 22:37 Room Air Lab & Micro Results (Past 24 Hours) RBC 3.77 M/uL (4.20-5.40) L 08/17/23 WBC 9.22 K/ul (4.8-10.8) 08/17/23 Hgb 10.3 g/dl (12.0-16.0) L 08/17/23 Hct 32.3 % (37.0-47.0) L 08/17/23 MCV 85.7 fL (80.0-100.0) 08/17/23 MCH 27.3 pg (25.0-34.0) 08/17/23 MCHC 31.9 g/dL (32.0-36.0) L 08/17/23 RDW Standard Deviation 50.7 fL (36.4-46.3) H 08/17/23 RDW Coefficient of Variation 16.4 % (11.5-14.5) H 08/17/23 Plt Count 293 K/uL (130-400) 08/17/23 MPV 9.4 fL (9.4-12.4) 08/17/23 Neutrophils (%) (Auto) 72.2 % 08/17/23 Lymphocytes (%) (Auto) 16.2 % 08/17/23 Monocytes # (Auto) 0.69 K/uL (0.11-0.59) H 08/17/23 Eosinophils # (Auto) 0.23 K/uL (0.00-0.50) 08/17/23 Immature Granulocyte % (Auto) 0.9 % 08/17/23 Neutrophils # (Auto) 6.67 K/uL (1.40-6.50) H 08/17/23 Lymphocytes # (Auto) 1.49 K/uL (1.20-3.40) 08/17/23 Monocytes # (Auto) 0.69 K/uL (0.11-0.59) H 08/17/23 Eosinophils # (Auto) 0.23 K/uL (0.00-0.50) 08/17/23 Basophils # (Auto) 0.06 K/uL (0.00-0.20) 08/17/23 Immature Granulocyte # (Auto) 0.08 K/uL (0.01-0.20) 4 Na 137 mmol/L (136-145) 08/17/23 K 3.7 mmol/L (3.5-5.1) 08/17/23 Cl 102 mmol/L (98-107) 08/17/23 CO2 28 mmol/L (21-32) 08/17/23 Anion Gap 7 (3-11) 08/17/23 BUN 43 mg/dl (6-23) H 08/17/23 Creatinine 3.65 mg/dl (0.6-1.2) H 08/17/23 Estimated GFR ( Amer) 14.5 ml/min 08/17/23 Estimated GFR (Non-Af Amer) 12.5 ml/min 08/17/23 BUN/Creatinine Ratio 11.8 (10-20) 08/17/23 Glu 178 mg/dl (70-99(Fasting)) H 08/17/23 Ca 8.7 mg/dl (8.6-10.3) 08/17/23 Total Bilirubin 0.3 mg/dl (0.2-1.0) 08/16/23 AST 13 U/L (13-39) 08/16/23 ALT 9 U/L (7-52) 08/16/23 Alkaline Phosphatase 103 U/L (34-104) 08/16/23 TP 7.1 gm/dl (6.0-8.3) 08/16/23 Albumin 3.2 gm/dl (3.4-5.0) L 08/16/23 Globulin 3.9 gm/dl (2.5-4.0) 08/16/23 Albumin/Globulin Ratio 0.8 (0.9-2) L 08/16/23 Mg 2.3 mg/dl (1.7-2.4) 08/17/23 05:26 Calcium Level 8.7 mg/dl (8.6-10.3) 08/17/23 05:26 Prothromb Time International Ratio 1.0 (0.9-1.1) 08/17/23 05:2 6 Diagnostic Findings (Past 24 Hours) Chest X-Ray 08/16/23 18:19 XR chest 1V not portable CLINICAL HISTORY: Chest pain, nonspecific TECHNIQUE: Single frontal radiograph of the chest was obtained. Comparison: Comparison is made to chest radiograph 08/15/2023 FINDINGS: No lines and tubes are seen. The cardiomediastinal silhouette is obscured. Right lower lung airspace opacity is mildly improved from prior exam. Large right pleural effusion. IMPRESSION: Large right pleural effusion with underlying airspace opacity, slightly improved from prior exam. ACT 112: Negative or not required by law. Electronically signed by: Anthony Odell M.D. 08/16/2023 7:[address] 08/16/23 20:54 Exam(s): CT CHEST Without Contrast EXAM: CT Chest Without Intravenous Contrast CLINICAL HISTORY: Reason for exam: recurrent pleural effusion, monitor for pneumonia. TECHNIQUE: Axial computed tomography images of the chest without intravenous contrast. CTDI is 26.58 mGy and DLP is 938.05 mGy-cm. Automated exposure control was utilized for the study. A dose lowering technique was utilized adhering to the principles of ALARA. COMPARISON: No relevant prior studies available. FINDINGS: Lungs: See below. Pleural space: Large RIGHT pleural effusion. Subjacent airspace consolidation, correlate for atelectasis versus pneumonia. Heart: Cardiomegaly. No significant pericardial effusion. No significant coronary artery calcifications. Bones/joints: Unremarkable. No acute fracture. No dislocation. Soft tissues: Unremarkable. Vasculature: Atherosclerotic change of the aorta, with coronary involvement. No thoracic aortic aneurysm. Lymph nodes: Unremarkable. No enlarged lymph nodes. IMPRESSION: Large RIGHT pleural effusion. Subjacent airspace consolidation, correlate for atelectasis versus pneumonia. Electronically signed by: Yan Camp MD 08/16/23 21:44 PM I & O Totals 24 Hours 08/16/23 08/17/23 08/18/23 06:59 06:59 07:59 Intake Total 420 / 420 100 / 100 Balance 420 / 420 100 / 100 Cumulative 08/16/23 18:09 thru 08/17/23 09:01 Intake Total 520 Balance 520 RT Ventilator Mngmt (Last Documented) Ventilator Ordered Settings Respiratory Rate 16 08/17/23 07:40 Ventilator - PT Measurements Respiratory Rate 16 PG Care Time/CCT Total # of Minutes Spent Total Time Spent with Patient: Total time spent is greater than 50% in coordination of care (as documented) at patient's floor/unit and/or counseling patient: Coding Level of Care Code 41766 IN/OBS CONSULT LVL 4,60M Diagnoses Pleural effusion J90
--- NOTE | 2023-08-17 10:33 | Procedure Note ---
Procedure Note Date of Service August 17, 2023 Note Procedure: Diagnostic therapeutic ultrasound-guided catheter thoracentesis, right Box Builder: Dr. Alan Nicolas Indication: Pleural effusion Consent: Signed by patient and verified with timeout prior to procedure Anesthesia: 8 mL's 1% lidocaine without epinephrine local. Procedure: Consent was verified and timeout performed. Appropriate imaging studies were reviewed prior to the procedure. Patient was placed in a seated position and limited thoracic ultrasound was performed of the bilateral chest. No significant effusion identified on the left. Moderate to large sized effusion with compressive atelectasis identified on the right. Site appropriate for thoracentesis on the right was selected. The skin was prepped and draped in normal sterile fashion. Lidocaine was used for local analgesia. Fluid was aspirated via the finder needle. A small skin isma was made with the scalpel and the catheter over the needle apparatus was advanced over the rib into the pleural space. Using the syringe one-way valve system, a total of 2200 mL's of jewell-yellow fluid was removed. Procedure was terminated due to patient experiencing some chest tightness. The catheter was removed and observed to be intact. A sterile dressing was applied. Post procedure chest x-ray was ordered. Fluid was sent for cell count differential, cytology, Gram stain and culture, AFB stain and culture, glucose, total protein, and LDH as well as pH. The patient tolerated the procedure well without obvious complication Coding CPT Codes Pulmonary/Thoracic - Pulmonary and Thoracic: 73618 Thoracentesis w imaging ([id number]) [facility] [place] Procedure Codes (Charges) Pulmonary/Thoracic Procedure 1: Pulmonary and Thoracic: 29812 Thoracentesis w imaging
--- NOTE | 2023-08-17 10:43 | XRay Report ---
XR chest 1V portable CLINICAL HISTORY: S/P Thoracentesis TECHNIQUE: Single frontal radiograph of the chest was obtained. Comparison: Comparison is made to chest radiograph 08/16/2023 FINDINGS: No lines and tubes are seen. Cardiomegaly is noted. The aortic arch is calcified. The lungs are clear . Interval near resolution of right pleural effusion. IMPRESSION: Interval near resolution of right pleural effusion compatible with post thoracentesis change. No evid ence of pneumothorax. ACT 112: Negative or not required by law. Electronically signed by: Anthony Odell M.D. 08/17/2023 10:42 AM
[2023-08-17 11:56] LABS: Total Protein Pleural Fluid 3.7 gm/dl
[2023-08-17] MEDS: BUMETANIDE 1 MG TAB PO SCH (12:06)
--- NOTE | 2023-08-17 12:07 | Hospitalist Progress Note ---
Date of Service August 17, 2023 Assessment & Plan (1) Recurrent pleural effusion on right: Plan: Fluid collection isolated to the right side. Left lung is clear. She underwent thoracentesis today, August 16, for the second time. Previous right thoracentesis was done on August 05. 2200 cc of serous fluid were aspirated today. Fluid studies and cytology remain pending. Follow-up chest x-ray looks much better. Will obtain PA and left lateral chest x-ray tomorrow, August 17. (2) SOB (shortness of breath): Plan: Developed with the right pleural effusion. Now resolved after thoracentesis. (3) Stage 5 chronic kidney disease not on chronic dialysis: Plan: Serial labs. Monitor intake and output. Await nephrology consultation and recommendations (4) Diabetes mellitus type 2 with complications: Plan: ADA diet. Sliding scale coverage as needed. (5) Hypertension: Plan: Stable. Continue amlodipine and diuretics Plan Hopeful discharge to home tomorrow, August 17 Admission and Anticipated Discharge Date Admission Date: August 16, 2023 Subjective Alert and oriented. She is feeling better after right thoracentesis performed earlier today, August 16. 2200 cc of serous fluid were aspirated. Follow-up chest x-ray looks much better. Will obtain PA and left lateral chest x-ray tomorrow morning, August 17. Nephrology consultation has been requested. Hopefully she can go home tomorrow, August 17 Review of Systems 2 Review of Systems: Constitutional-no fever or chills ENT-no blurred vision, no double vision, no epistaxis, no sore throat Respiratory-no cough, no wheezing. Shortness of breath has gradually developed over the past week Cardiac-no palpitations, no chest pain, no syncope GI-no nausea, vomiting, diarrhea, melena, hematochezia -no urinary retention, no urinary incontinence, no dysuria, no hematuria Musculoskeletal-no joint pain, no muscle tenderness Skin-no bruising, no rashes, no pruritus Neuro-no isolated weakness, no paresthesia, no weakness Psych-no depression, no anxiety Physical Exam 2 Physical Exam: General-alert and oriented x3, no fevers, no chills HEENT-head atraumatic and normocephalic, pupils equal and reactive to light, extraocular muscles intact Neck-no lymphadenopathy or thyromegaly, trachea midline Chest-clear to auscultation bilaterally. No rales, wheezing or rhonchi Cardiac-regular rate and rhythm, normal S1 and S2 Abdomen-normal bowel sounds, nontender, no hepatosplenomegaly Extremities-no cyanosis, clubbing, or edema Neuro-cranial nerves II through XII intact, motor and sensory function within normal limits, strength symmetrical, no focal deficits Psych-normal affect, normal mood Results & Data Results & Data Vital Signs (Past 12 Hours) Vital Signs Temp Pulse Pulse Resp BP BP Pulse Ox 08/17/23 11:27 08/17/23 11:08 37.0 C 72 18 131/67 96 08/17/23 07:40 36.8 C 68 16 149/73 H 96 08/17/23 07:17 70 08/17/23 03:03 36.6 C 65 18 128/72 99 O2 Del Method O2 Flow Rate 08/17/23 11:27 Nasal Cannula 2 08/17/23 11:08 Nasal Cannula 2 08/17/23 07:40 Nasal Cannula 2 08/17/23 07:17 08/17/23 03:03 Nasal Cannula 2 Laboratory Results 08/17/23 05:26 08/17/23 05:26 PG Care Time/CCT Total # of Minutes Spent Total Time Spent with Patient: Total time spent is greater than 50% in coordination of care (as documented) at patient's floor/unit and/or counseling patient: Coding Level of Care Code 12992 SUB INP/OBS CARE 3/50MIN Diagnoses Recurrent pleural effusion on right J90 SOB (shortness of breath) R06.02 Stage 5 chronic kidney disease not on chronic dialysis N18.5 Diabetes mellitus type 2 with complications E11.8 Hypertension I10
[2023-08-17 12:31] LABS: Appearance Pleural Fluid Cloudy; Color Pleural Fluid Straw; Lymphocytes, Fluid 70 %; Mono,Macrophage,Mesothelial 14 %; Neutrophils, Fluid 16 %; RBC Pleural Fluid Auto 4000 /uL; Source Pleural Fluid Right Lung; WBC Pleural Fluid Auto 2530 /uL
[2023-08-17] MEDS: ACETAMINOPHEN 325 MG TAB PO PRN (16:43)
[2023-08-18 06:28] LABS: Basophils # (auto) 0.08 K/uL (0.00-0.20); Basophils % (auto) 0.9 %; Eosinophils # (auto) 0.35 K/uL (0.00-0.50); Eosinophils % (auto) 3.8 %; Hematocrit (blood only) 29.5 % (37.0-47.0); Hemoglobin 9.4 g/dl (12.0-16.0); Immature Granulocytes # (auto) 0.24 K/uL (0.01-0.20); Immature Granulocytes % (auto) 2.6 %; Lymphocytes # (auto) 1.94 K/uL (1.20-3.40); Lymphocytes % (auto) 21.1 %; Mean Corpuscular Hemoglobin 27.3 pg (25.0-34.0); Mean Corpuscular Hgb Conc 31.9 g/dL (32.0-36.0); Mean Corpuscular Volume 85.8 fL (80.0-100.0); Mean Platelet Volume 9.9 fL (9.4-12.4); Monocytes # (auto) 0.73 K/uL (0.11-0.59); Monocytes % (auto) 7.9 %; Neutrophils # (auto) 5.85 K/uL (1.40-6.50); Neutrophils % (auto) 63.7 %; Platelet Count 252 K/uL (130-400); RDW Standard Deviation 50.4 fL (36.4-46.3); Red Blood Count 3.44 M/uL (4.20-5.40); White Blood Count 9.19 K/ul (4.8-10.8)
[2023-08-18 06:33] LABS: BUN Creatinine Ratio 10.7 (10-20); Calcium 8.2 mg/dl (8.6-10.3); Creatinine Clr Calc Pharmacy 15.7 ml/min; Est GFR (African American) 12.2 ml/min; Est GFR (Non-African American) 10.5 ml/min
--- NOTE | 2023-08-18 09:06 | Nephrology Progress Note ---
Date of Service August 18, 2023 Assessment & Plan (1) Stage 5 chronic kidney disease not on chronic dialysis: Plan: * ESKD due to biopsy proven DKD. Baseline Cr 3.5 * Required IHD 10/30-01/30 following [place] kidney biopsy due to perinephric hematoma * Declined AVF unless HD becomes permanent * Electrolyte balance is acceptable at this time * Patient reports diuresis in response to changing from Furosemide 40 daily to Bumex 1 mg BID. Cr has risen mildly to 4.2 * Patient reports outpatient Nephrology visit scheduled for 08/20/23. She desires outpatient follow up for management of diuretics and monitoring for potential need for HD * Order placed in outpatient EMR for CBC, PRP 08/19/23 am (2) Recurrent pleural effusion on right: Plan: * Initial 1L thoracentesis 08/05/23 - transudative * 08/17/23 required 2.2 L thoracentesis * 08/18/23 CXR shows reexpansion of R lung, no pneumothorax Admission and Anticipated Discharge Date Admission Date: August 16, 2023 Subjective Ms. Simpson was evaluated in her hospital room this morning. She underwent R thoracentesis yesterday by Dr. Nicolas. 2.2 L volume removed. Ms. Simpson reports that her breathing is markedly improved. She is anxious to return home Review of Systems Constitutional: no fever Eyes: no problem reported Ear, Nose, Mouth, Throat: no problem reported Respiratory: no cough, no dyspnea and no hemoptysis Cardiovascular: no chest pain Gastrointestinal: no abdominal pain, no nausea, no vomiting and no diarrhea/loose stools Genitourinary: no dysuria and no hematuria Integumentary: no rash Physical Exam Constitutional: not in distress Eyes: PERRL, conjunctivae normal, anicteric sclerae ENMT: Mouth: + dry oral mucous membranes Neck: trachea midline, no thyromegaly Respiratory: Auscultation: lungs clear to auscultation bilaterally Cardiovascular: RRR, no murmur, no edema Gastrointestinal (Abdomen): normal bowel sounds, soft, nontender, no hepatosplenomegaly Skin: + turgor decreased Neurologic: Speech / Cognition: normal speech and normal cognition Psychiatric: Affect: euthymic affect Results & Data Vital Signs (Past 12 Hours) Vital Signs Temp Pulse Pulse Resp BP Pulse Ox O2 Del Method 08/18/23 08:00 36.3 C L 65 18 150/69 H 94 Room Air 08/18/23 06:52 66 08/18/23 04:32 36.5 C 65 18 158/79 H 98 Nasal Cannula 08/17/23 22:31 37 C 79 18 133/74 97 Nasal Cannula 08/17/23 22:00 83 O2 Flow Rate 08/18/23 08:00 08/18/23 06:52 08/18/23 04:32 2 08/17/23 22:31 2 08/17/23 22:00 Laboratory Results Laboratory Results WBC 9.19 K/ul (4.8-10.8) 08/18/23 05:10 RBC 3.44 M/uL (4.20-5.40) L 08/18/23 05:10 Hgb 9.4 g/dl (12.0-16.0) L 08/18/23 05:10 Hct 29.5 % (37.0-47.0) L 08/18/23 05:10 MCV 85.8 fL (80.0-100.0) 08/18/23 05:10 MCH 27.3 pg (25.0-34.0) 08/18/23 05:10 MCHC 31.9 g/dL (32.0-36.0) L 08/18/23 05:10 RDW Std Deviation 50.4 fL (36.4-46.3) H 08/18/23 05:10 RDW Coeff of Adelina 16.0 % (11.5-14.5) H 08/18/23 05:10 Plt Count 252 K/uL (130-400) 08/18/23 05:10 MPV 9.9 fL (9.4-12.4) 08/18/23 05:10 Immature Gran % (Auto) 2.6 % 08/18/23 05:10 Neut % (Auto) 63.7 % 08/18/23 05:10 Lymph % (Auto) 21.1 % 08/18/23 05:10 Otero % (Auto) 7.9 % 08/18/23 05:10 Eos % (Auto) 3.8 % 08/18/23 05:10 Baso % (Auto) 0.9 % 08/18/23 05:10 Neut # (Auto) 5.85 K/uL (1.40-6.50) 08/18/23 05:10 Lymph # (Auto) 1.94 K/uL (1.20-3.40) 08/18/23 05:10 Otero # (Auto) 0.73 K/uL (0.11-0.59) H 08/18/23 05:10 Eos # (Auto) 0.35 K/uL (0.00-0.50) 08/18/23 05:10 Baso # (Auto) 0.08 K/uL (0.00-0.20) 08/18/23 05:10 Immature Gran # (Auto) 0.24 K/uL (0.01-0.20) H 08/18/23 05:10 PT 11.4 Seconds (9.0-12.0) 08/17/23 05:26 INR 1.0 (0.9-1.1) 08/17/23 05:26 APTT 29 Seconds (21-31) 08/16/23 18:45 PTT Ratio 1.0 08/16/23 18:45 Sodium 135 mmol/L (136-145) L 08/18/23 05:10 Potassium 4.0 mmol/L (3.5-5.1) 08/18/23 05:10 Chloride 102 mmol/L (98-107) 08/18/23 05:10 Carbon Dioxide 26 mmol/L (21-32) 08/18/23 05:10 Anion Gap 7 (3-11) 08/18/23 05:10 BUN 45 mg/dl (6-23) H 08/18/23 05:10 Creatinine 4.21 mg/dl (0.6-1.2) H D 08/18/23 05:10 Est Cr Clr Drug Dosing 15.7 ml/min 08/18/23 05:10 Est GFR ( Amer) 12.2 ml/min 08/18/23 05:10 Est GFR (Non-Af Amer) 10.5 ml/min 08/18/23 05:10 BUN/Creatinine Ratio 10.7 (10-20) 08/18/23 05:10 Glucose 154 mg/dl (70-99(Fasting)) H 08/18/23 05:10 POC Glucose 212 mg/dl (70-99) H 08/18/23 08:11 Calcium 8.2 mg/dl (8.6-10.3) L 08/18/23 05:10 Magnesium 2.3 mg/dl (1.7-2.4) 08/17/23 05:26 Total Bilirubin 0.3 mg/dl (0.2-1.0) 08/16/23 18:45 AST 13 U/L (13-39) 08/16/23 18:45 ALT 9 U/L (7-52) 08/16/23 18:45 Alkaline Phosphatase 103 U/L (34-104) 08/16/23 18:45 Troponin I High Sens 10.9 pg/ml (0-14) 08/16/23 18:45 B-Natriuretic Peptide 213 pg/ml (0-100) H 08/16/23 18:45 Total Protein 7.1 gm/dl (6.0-8.3) 08/16/23 18:45 Albumin 3.2 gm/dl (3.4-5.0) L 08/16/23 18:45 Globulin 3.9 gm/dl (2.5-4.0) 08/16/23 18:45 Albumin/Globulin Ratio 0.8 (0.9-2) L 08/16/23 18:45 Procalcitonin 0.13 ng/ml (0-0.5) 08/16/23 18:45 Fluid Neutrophils % 16 % 08/17/23 10:00 Fluid Lymphocytes % 70 % 08/17/23 10:00 Fluid Meso/Macro/Otero % 14 % 08/17/23 10:00 Fluid Comment 08/17/23 10:00 Pleural Fluid Source Right Lung 08/17/23 10:00 Pleural Color Straw 08/17/23 10:00 Pleural Appearance Cloudy 08/17/23 10:00 Pleural pH 7.49 (7.3-7.4) H 08/17/23 10:00 Pleural WBC (Auto) 2530 /uL 08/17/23 10:00 Pleural RBC (Auto) 4000 /uL 08/17/23 10:00 Pleural Total Protein 3.7 gm/dl 08/17/23 10:00 Pleural LDH 137 U/L 08/17/23 10:00 Pleural Glucose 188 mg/dl 08/17/23 10:00 SARS-CoV-2 (PCR) NEGATIVE (Negative) 08/16/23 18:43 Influenza Type A (PCR) Negative (Neg) 08/16/23 18:43 Influenza Type B (PCR) Negative (Neg) 08/16/23 18:43 RSV (RT-PCR) Negative (Neg) 08/16/23 18:[address] 08/16/23 20:54 Exam(s): CT CHEST Without Contrast EXAM: CT Chest Without Intravenous Contrast CLINICAL HISTORY: Reason for exam: recurrent pleural effusion, monitor for pneumonia. TECHNIQUE: Axial computed tomography images of the chest without intravenous contrast. CTDI is 26.58 mGy and DLP is 938.05 mGy-cm. Automated exposure control was utilized for the study. A dose lowering technique was utilized adhering to the principles of ALARA. COMPARISON: No relevant prior studies available. FINDINGS: Lungs: See below. Pleural space: Large RIGHT pleural effusion. Subjacent airspace consolidation, correlate for atelectasis versus pneumonia. Heart: Cardiomegaly. No significant pericardial effusion. No significant coronary artery calcifications. Bones/joints: Unremarkable. No acute fracture. No dislocation. Soft tissues: Unremarkable. Vasculature: Atherosclerotic change of the aorta, with coronary involvement. No thoracic aortic aneurysm. Lymph nodes: Unremarkable. No enlarged lymph nodes. IMPRESSION: Large RIGHT pleural effusion. Subjacent airspace consolidation, correlate for atelectasis versus pneumonia. Electronically signed by: Yan Camp MD 08/16/23 21:44 PM Chest X-Ray 08/17/23 10:26 XR chest 1V portable CLINICAL HISTORY: S/P Thoracentesis TECHNIQUE: Single frontal radiograph of the chest was obtained. Comparison: Comparison is made to chest radiograph 08/16/2023 FINDINGS: No lines and tubes are seen. Cardiomegaly is noted. The aortic arch is calcified. The lungs are clear. Interval near resolution of right pleural effusion. IMPRESSION: Interval near resolution of right pleural effusion compatible with post thoracentesis change. No evidence of pneumothorax. ACT 112: Negative or not required by law. Electronically signed by: Anthony Odell M.D. 08/17/2023 10:42 AM PG Care Time/CCT Total # of Minutes Spent Total Time Spent with Patient: Total time spent is greater than 50% in coordination of care (as documented) at patient's floor/unit and/or counseling patient: Coding Level of Care Code 47456 SUB INP/OBS CARE 3/50MIN Diagnoses Stage 5 chronic kidney disease not on chronic dialysis N18.5 Recurrent pleural effusion on right J90
--- NOTE | 2023-08-18 09:26 | XRay Report ---
XR chest 2V PA/lateral CLINICAL HISTORY: right effusion, s/p thoracentesis 08/16 TECHNIQUE: 2 views of the chest were obtained. Comparison: Comparison is made to chest radiograph 08/17/2023 FINDINGS: No lines and tubes are seen. Cardiomegaly is noted. The aortic arch is calcified. The lungs are clear . No evidence of pleural effusion or pneumothorax. IMPRESSION: No significant pleural effusion is seen. No pneumothorax. ACT 112: Negative or not required by law. Electronically signed by: Anthony Odell M.D. 08/18/2023 9:24 AM
--- NOTE | 2023-08-18 09:33 | Discharge Summary ---
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 She remained stable in the ED. Labs including CBC, CMP, High sen trop, BNP, Covid 19/Influenza/RSV were unremarkable. Chest xray was read as Large right pleural effusion with underlying airspace opacity, slightly improved from prior exam.. The patient was recently see by Pulmonology on 08/05/23 for therapeutic/diagnostic right thoracentesis, 2L of fluid were drained. Pathology of the pleural fluid was negative for malignancy. Pleural protein and LDH were consistent with transudative process. She was seen by her PCP on 08/14/23 for progressive SOB since her thoracentesis. Repeat CXR showed recurrence of her right pleural effusion. Her PCP changed her Lasix dosing from 40 mg daily to 40 mg daily with an additional 40 mg PO on MWF and prescribed a course of Levaquin for possible Pneumonia. At the time of the exam the patient was sitting in bed in no acute distress. She states that she felt much improved after her first thoracentesis but her SOB progressively returned. She denies recent fever, chills, chest pain, productive cough, nausea/vomiting, abd pain, dysuria, hematuria, melena, and recent trauma. Her breathing is comfortable at rest but she becomes significantly dyspneic on exertion and is unable to lay flat due to her symptoms. She has been taking the Levaquin as prescribed but only had her am dose of lasix as she was running errands earlier today. She is a full code and would want her and Son to make medical decisions for her if she cannot make them herself. She has had to have a course of HD previously and had been trying to avoid having to go back on HD. I did explain to her that we may not have many options moving forward if this keeps occurring as a result of her CKD. Please refer to Dr. Dior' attestation for any changes to the treatment plan Principal Diagnosis Recurrent right pleural effusion of undetermined etiology, shortness of breath Discharge Exam General-alert and oriented x3, no fevers, no chills HEENT-head atraumatic and normocephalic, pupils equal and reactive to light, extraocular muscles intact Neck-no lymphadenopathy or thyromegaly, trachea midline Chest-clear to auscultation bilaterally. No rales, wheezing or rhonchi Cardiac-regular rate and rhythm, normal S1 and S2 Abdomen-normal bowel sounds, nontender, no hepatosplenomegaly Extremities-no cyanosis, clubbing, or edema Neuro-cranial nerves II through XII intact, motor and sensory function within normal limits, strength symmetrical, no focal deficits Psych-normal affect, normal mood Discharge Data Allergies Allergy/AdvReac Type Severity Reaction Status Date / Time daptomycin Allergy Severe rhabdomyoly Verified 08/16/23 20:07 sis amoxicillin Allergy Intermediate HIVES & N/V Verified 08/16/23 20:07 clavulanic acid Allergy Intermediate HIVES & N/V Verified 08/16/23 20:07 vancomycin Allergy Intermediate pruritus Verified 08/16/23 20:07 sulfamethoxazole AdvReac Severe renal Verified 08/16/23 20:07 [From Bactrim] failure trimethoprim [From Bactrim] AdvReac Severe renal Verified 08/16/23 20:07 failure lisinopril AdvReac Intermediate NAUSEA/VOMI Verified 08/16/23 20:07 TING omeprazole AdvReac Intermediate Nausea Verified 08/16/23 20:07 Consultations 08/16/23 20:19 ED Decision to Admit Stat 08/16/23 20:38 Consult Nephrology Routine Consult Pulmonology Routine Ordered Studies 08/16/23 20:54 CT chest diagnostic wo con Urgent Hospital Course (1) Recurrent pleural effusion on right: Fluid collection isolated to the right side. Left lung is clear. She underwent thoracentesis on August 16, for the second time. Previous right thoracentesis was done on August 05. 2200 cc of serous fluid were aspirated today. Fluid studies and cytology remain pending. Follow-up chest x-ray looks much better. PA and left lateral chest x-ray today, August 17, shows no pneumothorax and no underlying mass. (2) SOB (shortness of breath): Developed with the right pleural effusion. Now resolved after thoracentesis. (3) Stage 5 chronic kidney disease not on chronic dialysis: Serial labs. Monitor intake and output. (4) Diabetes mellitus type 2 with complications: ADA diet. Sliding scale coverage as needed. (5) Hypertension: Stable. Continue amlodipine and diuretics Plan Home today, August 17 Total Time Total Time Spent Total Time Spent (In Minutes): 45-minute Discharge Plan Discharge Items Patient Disposition: Home - Self-Care Reason For Visit: RECURRENT RIGHT PLEURAL EFFUSION, SOB Discharge Diagnosis: Recurrent right pleural effusion of undetermined etiology, shortness of breath Activity: Resume your previous activity Non-emergency contact: Primary Care Provider Call non-emergency contact if: your symptoms worsen Follow-up/Referrals: Andie Rodrigues DO [Primary Care Provider] - Diet: Carb Consistent or DM2, Dialysis Renal and Heart Healthy Addtl Attending Provider Instructions: See primary care provider in 1 week to review pleural fluid studies and cytology. Take Bumex water pill twice daily. A prescription has been sent to [facility] pharmacy in [place] Pending Studies at Discharge: Yes Studies:: Pleural fluid study results Stand-Alone Forms: [facility] [place], Smoking Cessation Medications and DC Order Prescriptions: New bumetanide 1 mg Tablet 1 mg PO [id number] Qty: 60 0RF Continued (DME) Prosthetic Socket replacement See Rx Instructions .Route .MEDSUPPLY Qty: 1 0RF Rx Instructions: As directed. Patient states she is being fitted for a new prosthetic. (DME) Accu-Chek Guide L1-L2 Ctrl Nancy Solution See Rx Instructions .Route Qty: 1 0RF Rx Instructions: As directed metoprolol tartrate 25 mg tablet 25 mg PO BID Qty: 180 1RF trazodone 50 mg tablet 25 mg PO HS Qty: 45 3RF rosuvastatin 40 mg tablet 40 mg PO QAM Qty: 90 1RF omeprazole 20 mg capsule,delayed release(DR/EC) 20 mg PO DAILY 90 Days Qty: 90 1RF ergocalciferol (vitamin D2) 1,250 mcg (50,000 unit) capsule 50,000 unit PO WEEKLY Qty: 12 0RF Rx Instructions: Saturday tramadol 50 mg tablet 50 mg PO BID PRN (Reason: pain) Qty: 60 0RF mecobalamin (vitamin B12) 1,000 mcg tablet,disintegrating 1,000 mcg sublingual DAILY Qty: 90 3RF Rx Instructions: place tablet under tongue and allow to dissolve for at least 30 secs before swallowing. polyethylene glycol 3350 [Miralax] 17 gram/dose powder 17 g PO DAILY PRN (Reason: Constipation) loperamide [Imodium A-D] 2 mg capsule 2 mg PO Q6H PRN (Reason: Diarrhea) aspirin [Adult Low Dose Aspirin] 81 mg tablet,delayed release (DR/EC) 81 mg PO DAILY docusate sodium [Stool Softener] 100 mg capsule 100 mg PO DAILY PRN (Reason: Constipation) triamcinolone acetonide 0.5 % cream 1 applic topical BID PRN (Reason: skin irritation) Qty: 60 1RF Rx Instructions: apply to chest (DME) Socket replacement and supplies See Rx Instructions .Route .MEDSUPPLY Qty: 1 0RF Rx Instructions: As directed. Level K2 ferrous sulfate 325 mg (65 mg iron) tablet,delayed release (DR/EC) 325 mg PO BID levofloxacin 750 mg tablet 750 mg PO Q OTHER DAY 7 Days Qty: 4 0RF acetaminophen 650 mg Tablet Extended Release 650 mg PO Q8H PRN (Reason: Pain) diphenhydramine HCl [Sleep Aid (diphenhydramine)] 25 mg tablet 25 mg PO HS PRN (Reason: Sleep) SPS (with sorbitol) 15-20 gram/60 mL suspension 60 ml PO WK Rx Instructions: magnesium 500 mg Tablet 500 mg PO DAILY amlodipine 10 mg tablet 5 mg PO QAM Discontinued furosemide 40 mg tablet See Rx Instructions .ROUTE .COMPLEX Rx Instructions: Take 80mg by mouth on Mon/Wed/Fri and 40mg by mouth all other days. Discharge Orders: Discharge Order (Routine); Ordered 08/18/23 Ordered By: David Roberto Admission Data Admit Date/Time: 08/16/23 20:24 Attending Provider: David Roberto Admit Provider: Vinny Dior Primary Care Provider: Andie Rodrigues Other Providers: Stanley Gonzalez; Moise Hunt; Alan Nicolsa Coding Level of Care Code 12074 INP/OBS DISCH >30 MIN Diagnoses Recurrent pleural effusion on right J90 SOB (shortness of breath) R06.02 Stage 5 chronic kidney disease not on chronic dialysis N18.5 Diabetes mellitus type 2 with complications E11.8 Hypertension I10
== END 2023-08-18 12:33 | disposition home or self-care (01) ==
LOC: 2N 18:09 → ED 18:09 → SUATTDRO 20:24 → 2N 22:37

== ENCOUNTER 2023-12-23 13:34 | Inpatient (IN) ==
--- NOTE | 2023-12-23 14:21 | ED Triage Note ---
Date of Service December 23, 2023 Provider in Triage Author: Sanket Weller History of Present Illness This patient was briefly evaluated while in triage. An abbreviated physical exam was performed. This patient is a 63-year-old Female history R pleural effusion sent by pcp who presents to the ED for evaluation of shortness of breath worse over the past few days. Now sleeping upright due to dyspnea. No fevers. No chest pain. Physical Exam CONSTITUTIONAL: in no acute pain or distress SKIN: pink, warm, dry CARDIAC: regular rate and rhythm RESPIRATORY: O2 89%. Crackles and decreased lung sounds on R. not is respiratory distress Initial orders for labs and / or imaging were placed and patient was placed in the waiting area until a bed is available. Please see further documentation for the full ED course.
[2023-12-23 14:51] LABS: Base Excess VBG -1.1 mEq/L; HCO3 VBG 25 mmol/L; PCO2 VBG 45 mmHg (38-50); PO2 VBG 40 mmHg; pH VBG 7.35 (7.36-7.41)
[2023-12-23 14:58] LABS: Basophils # (auto) 0.07 K/uL (0.00-0.20); Basophils % (auto) 0.7 %; Eosinophils # (auto) 0.29 K/uL (0.00-0.50); Eosinophils % (auto) 2.9 %; Hemoglobin 9.5 g/dl (12.0-16.0); Immature Granulocytes # (auto) 0.09 K/uL (0.01-0.20); Immature Granulocytes % (auto) 0.9 %; Lymphocytes # (auto) 1.29 K/uL (1.20-3.40); Mean Corpuscular Hemoglobin 28.4 pg (25.0-34.0); Mean Corpuscular Hgb Conc 31.7 g/dL (32.0-36.0); Mean Corpuscular Volume 89.6 fL (80.0-100.0); Mean Platelet Volume 9.8 fL (9.4-12.4); Monocytes # (auto) 0.77 K/uL (0.11-0.59); Monocytes % (auto) 7.7 %; Neutrophils # (auto) 7.43 K/uL (1.40-6.50); Neutrophils % (auto) 74.8 %; Platelet Count 260 K/uL (130-400); RDW Coefficient of Variation 15.7 % (11.5-14.5); RDW Standard Deviation 49.7 fL (36.4-46.3); Red Blood Count 3.35 M/uL (4.20-5.40); White Blood Count 9.94 K/ul (4.8-10.8)
[2023-12-23 15:22] LABS: Alanine Aminotransferase 14 U/L (7-52); Albumin Globulin Ratio 0.9 (0.9-2); Albumin Level 3.2 gm/dl (3.4-5.0); Alkaline Phosphatase 103 U/L (34-104); Anion Gap 7 (3-11); Aspartate Aminotransferase 15 U/L (13-39); BUN Creatinine Ratio 11.7 (10-20); Bilirubin,Total 0.3 mg/dl (0.2-1.0); Blood Urea Nitrogen 61 mg/dl (6-23); Calcium 8.5 mg/dl (8.6-10.3); Carbon Dioxide 26 mmol/L (21-32); Chloride 106 mmol/L (98-107); Est GFR (African American) 9.4 ml/min; Est GFR (Non-African American) 8.1 ml/min; Globulin 3.6 gm/dl (2.5-4.0); Glucose 128 mg/dl (70-99(Fasting)); Potassium 4.5 mmol/L (3.5-5.1); Sodium 139 mmol/L (136-145); Total Protein 6.8 gm/dl (6.0-8.3); Troponin I High Sensitivity 9.6 pg/ml (0-14)
--- NOTE | 2023-12-23 15:33 | XRay Report ---
SINGLE VIEW CHEST CLINICAL HISTORY: Dyspnea FINDINGS: An AP upright chest radiograph is compared to study dated 08/18/2023 and correlated with [facility] CT dated 08/16/2023. The heart is enlarged noting atherosclerotic calcification of the thoracic aort a. There is pulmonary vascular congestion and mild interstitial edema. There are right larger than le ft pleural effusions with dependent consolidation. No pneumothorax is seen. The skeletal structures a re osteopenic. The bony thorax is grossly intact. IMPRESSION: 1. Cardiomegaly with evidence of congestive failure. 2. Right larger than left pleural effusions with dependent consolidation. ACT 112: Negative or not required by law. Electronically signed by: Albin Dior M.D. 12/23/2023 3:30 PM
[2023-12-23 15:50] LABS: Partial Thromboplastin Ratio 1.1; Partial Thromboplastin Time 30 Seconds (21-31); Prothrombin Time 10.8 Seconds (9.0-12.0)
--- NOTE | 2023-12-23 16:01 | Emergency Department Note ---
Impression & Plan Hypoxia, Anemia, CHF (congestive heart failure), ELROY (acute kidney injury) ED Provider Note NAME: WENDI DAMON AGE: 63 SEX: F : 1960 ARRIVES VIA: Walk-In INFORMANT: [Patient] ED PROVIDER(S): [Albin Johnson MD] CHIEF COMPLAINT: Shortness of breath HISTORY OF PRESENT ILLNESS: The patient is a 63-year-old female who has renal disease. She has a right below the knee amputation. The patient noticed that she was short of breath for the last 4 days. She gained about 4 pounds of weight. The patient went to her doctor's office today, she was found to be fluid overloaded, her O2 saturation was in the low 80s, she was referred to the ER. The patient admits to a slight cough but no fever. She has noticed the shortness of breath as noted above. She has not had vomiting or diarrhea. The patient states that she did require dialysis for short time previously, she was able to be weaned off though. She currently does use diuretics daily. She has noticed decreased urine output the last few days. PMHx/PSHx/Social Hx: See Below PHYSICAL EXAM: GENERAL: Patient is in no acute distress. HEENT: No acute trauma, normocephalic atraumatic, mucous membranes moist, no nasal congestion. NECK: No stridor, no adenopathy, no meningismus, trachea is midline. LUNGS: Crackles at the bases, especially on the right. No obvious respiratory distress. No wheezing. HEART: Without murmurs gallops or rubs, regular rate and rhythm. Heart tones are quite distant. ABDOMEN: Soft, nontender, no peritonitis. EXTREMITIES: No cyanosis. Right below the knee amputation. Left leg does have moderate edema. NEUROLOGIC: Oriented x 3, no acute motor or sensory deficits, no focal weakness. SKIN: No jaundice, no diaphoresis. DIFFERENTIAL DIAGNOSIS: CHF and fluid overload, renal failure, electrolyte imbalance, pneumonia, among others. EMERGENCY DEPARTMENT PROCEDURES: MEDICAL DECISION MAKING: There is no leukocytosis. The patient is anemic but this appears baseline looking back at previous testing. There is a normal platelet count. No coagulopathy. VBG does not show any significant acidosis, no CO2 retention. Renal panel testing does show a elevated creatinine 5.21. The patient's baseline creatinine is just over 3. This finding demonstrates some acute kidney injury. No concerning liver enzyme elevation. ECG shows a sinus rhythm with a first-degree block, no obvious acute ST elevation. Cardiac enzyme testing x 1 is not consistent with acute cardiac injury. Chest x-ray shows some pleural effusions as well as heart failure. On exam, the patient was hypoxic without O2 supplementation. She had crackles noted on her lung exam. The patient appears to be in heart failure, likely secondary to acute kidney injury. The patient was maintained on nasal cannula oxygen. I discussed the case with nephrology. Hospitalization is indicated. The patient may in fact need dialysis if she does not improve in the next 24 hours. She does not require emergent dialysis this evening. I did speak with case management, the on-call hospitalist was consulted. Prior/Outside records/notes reviewed: Today's family practice note describing her presentation, findings and need for ER referral. ECG per my interpretation: Indication was shortness of breath. The ECG shows a sinus rhythm with a first-degree AV block. The rate is 68. There is an old anterior septal infarct. There is no acute ST elevation, no PVCs. LVH is seen. The QTc is 465. Continuous Cardiac Monitoring per my interpretation: An order was placed for continuous cardiac monitoring. The monitor shows a rate of 77 with sinus rhythm with a first-degree block. Imaging/x-ray results per my interpretation: Chest x-ray shows bilateral pleural effusions as well as CHF. Chronic Medical/Social conditions affecting care: History of renal disease. Care/Management discussed with: Case management, the on-call hospitalist. Nephrology-Dr. Garg. Level of care consideration(s): After review of the information above and other included data: --I believe the patient requires escalation of care to admission Critical Care Note: I have personally spent 39 minutes of critical care time in the direct management of this patient. This includes bedside care, interpretation of diagnostic studies, and testing, discussion with consultants, patient, and family members, and other required patient management activities. This 39 minutes is in excess of all separately billable procedures. DISPOSITION: Admission Past Med/Surg History Problem List (Updated 12/23/23 @ 18:29 by Albin Johnson MD) ELROY (acute kidney injury) (Acute) CHF (congestive heart failure) (Acute) Anemia (Acute) Hypoxia (Acute) Hypoxia Hypervolemia Acute kidney injury superimposed on chronic kidney disease Stage 5 chronic kidney disease not on chronic dialysis Diabetes mellitus type 2 with complications Acute kidney failure Recurrent pleural effusion on right SOB (shortness of breath) Orthopnea Neuropathy Hyperkalemia Chronic kidney disease, stage 4 (severe) Anemia (Acute) Renal hematoma, left Proteinuria Diabetic neuropathy PAD (peripheral artery disease) Irregular bowel habits Chronic heart failure with preserved ejection fraction (HFpEF) GERD (gastroesophageal reflux disease) (Chronic) Chronic constipation Vitamin D deficiency 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) Chronic diastolic CHF (congestive heart failure) Charcot's arthropathy Sleep apnea no cpap Dyslipidemia Chronic back pain Chronic venous insufficiency (Chronic) Osteoarthritis (Chronic) Medical History ESRD on dialysis Dyspnea Chronic osteomyelitis Hypertension Non-traumatic rhabdomyolysis (02/2021) Postmenopausal bleeding Anemia of chronic disease Diabetic ulcer of left great toe PAD (peripheral artery disease) S/P right lower extremity angiogram, mechanical thrombectomy of pre-existing superficial femoral artery stent usinh Lisajet Lynch Omni catheter, balloon angioplasty of the superficial femoral artery stent using 5 X 200 mm Feura Bush balloon, balloon angioplasty of the superficial femoral artery 6 X 250 mm IN.PACT drug coated balloon, stent angioplasty of the superficial femoral artery using 5 X 150 mm INOVA bare metal stent, and debridement of the right lateral foot on 11/14/[address] Lomeli. S/P bilateral SFA stenting Morbid obesity BMI 45.7 Clostridium difficile colitis history (~11/2016) -- treated no problems since. Charcot's joint of foot due to diabetes Surgical History History of vascular surgery (04/20/22) L SFA Angio Extremity Unilateral Fem Pop Balloon Atherectomy History of bilateral cataract extraction Status post amputation of toe of right foot (11/14/20) amputation metatarsal w/ toe, R S/P vascular surgery (11/2020) R fem-pop [id number] w/ stent and angioplasty S/P femoral-popliteal bypass surgery S/P angioplasty (10/2019) RT SFA atherectomy/angioplasty w/ MARSHA S/P angioplasty (06/2019) LT SFA angioplastly with MARSHA History of cholecystectomy History of tooth extraction History of esophagogastroduodenoscopy (EGD) S/P epidural steroid injection H/O vascular surgery (01/2020) LT SFA atherectomy, MARSHA w/ supera stenting History of lumpectomy of right breast benign Status post tubal ligation Status post tonsillectomy Family History Mother Rheumatoid arthritis Father Emphysema of lung Peripheral artery disease Aunt Breast cancer Colorectal cancer Myocardial infarction Brother Prostate cancer Sister COPD (chronic obstructive pulmonary disease) Other No family history of adverse response to anesthesia Denies family history of Ovarian cancer CAD (coronary atherosclerotic disease) Social History Smoking Status: Never smoker Tobacco Type: Cigarettes packs per day: 2; Second Hand Exposure: No; Do You Dip or Chew Tobacco: No; Hx Alcohol Use: No Hx Substance Use: No Preferred Language: Greek Communication Ability: Effective Visual Impairment: No Limitations Hearing Ability: Normal Pr Intern Required: No Beliefs That Will Affect Care: None marital status: Current Living Situation: Family Current Living Situation Comment: lives with and son current occupational status: disabled How many Children do You have: 1 other: previous worked at [employer] Feels Safe at Home: Yes Childhood Exposure to Second-Hand Smoke: Yes (father was a heavy smoker ) Diet: regular Diet Comment: regular caffeine: Yes (very little) during the past year weight has: remained stable Dental Care, Regularly: No Physical Activity Frequency: Does not Exercise Seatbelt Use: always Sunscreen Use: No Assistive Devices: Cane, Denture - Upper, Denture - Lower, Prosthesis and Walker Allergies Allergies Allergy/AdvReac Type Severity Reaction Status Date / Time daptomycin Allergy Severe rhabdomyoly Verified 12/23/23 11:35 sis amoxicillin Allergy Intermediate HIVES & N/V Verified 12/23/23 11:35 clavulanic acid Allergy Intermediate HIVES & N/V Verified 12/23/23 11:35 vancomycin Allergy Intermediate pruritus Verified 12/23/23 11:35 sulfamethoxazole AdvReac Severe renal Verified 12/23/23 11:35 [From Bactrim] failure trimethoprim [From Bactrim] AdvReac Severe renal Verified 12/23/23 11:35 failure lisinopril AdvReac Intermediate NAUSEA/VOMI Verified 12/23/23 11:35 TING omeprazole AdvReac Intermediate Nausea Verified 12/23/23 11:35 Home Meds Home Medications Medication Instructions Recorded Confirmed acetaminophen 650 mg 650 mg PO Q8H PRN Pain 10/07/20 12/23/23 tablet,extended release docusate sodium 100 mg capsule 100 mg PO DAILY PRN Constipation 11/10/21 12/23/23 (Stool Softener) loperamide 2 mg capsule (Imodium 2 mg PO Q6H PRN Diarrhea 12/13/21 12/23/23 A-D) polyethylene glycol 3350 17 17 g PO DAILY PRN Constipation 12/13/21 12/23/23 gram/dose oral powder (Miralax) aspirin 81 mg tablet,delayed 81 mg PO DAILY 11/15/22 12/23/23 release (Adult Low Dose Aspirin) diphenhydramine HCl 25 mg tablet 25 mg PO HS PRN Sleep 11/15/22 12/23/23 (Sleep Aid (diphenhydramine)) ferrous sulfate 325 mg (65 mg 325 mg PO BID 03/11/23 12/23/23 iron) tablet,delayed release magnesium 500 mg tablet 500 mg PO DAILY 08/16/23 12/23/23 sodium polystyrene sulfonate 15 60 ml PO WK 08/16/23 12/23/23 gram-sorbitol 20 gram/60 mL oral susp (SPS (with sorbitol)) Previous Rx's Medication Instructions Recorded triamcinolone acetonide 0.5 % 1 applic topical BID PRN skin 11/10/21 topical cream irritation #60 grams Prosthetic Socket replacement #1 ea 08/13/22 blood glucose control high and low #1 ea 04/03/23 solution (Accu-Chek Guide L1-L2 Control Solution) trazodone 50 mg tablet 25 mg (1/2 x 50 mg) PO HS #45 tabs 05/27/23 Socket replacement and supplies #1 ea 05/30/23 metoprolol tartrate 25 mg tablet 25 mg PO BID #180 tabs 10/21/23 bumetanide 1 mg tablet 1 mg PO BID #60 tabs 10/22/23 amlodipine 10 mg tablet 5 mg (1/2 x 10 mg) PO QAM #45 tabs 11/06/23 omeprazole 20 mg capsule,delayed 20 mg PO DAILY 90 days #90 caps 11/27/23 release rosuvastatin 40 mg tablet 40 mg PO QAM #90 tabs 11/27/23 tramadol 50 mg tablet 50 mg PO Q8H PRN pain #90 tabs 12/09/23 ergocalciferol (vitamin D2) 1,250 50,000 unit PO WEEKLY #12 caps 12/20/23 mcg (50,000 unit) capsule Results & Data (ED) Vital Signs Vital Signs - 24 hr 12/23/23 14:13 12/23/23 16:08 12/23/23 16:12 Temperature 36.3 C L Temperature Source Temporal Artery Scan Pulse Rate 77 66 Pulse Rate from SpO2 Sensor 64 Respiratory Rate 18 21 Respiratory Effort / Characteristics Non-Labored Respiratory Depth Normal Respiratory Pattern Regular Blood Pressure 154/66 H 219/89 H Blood Pressure Mean 95 111 Pulse Oximetry 89 L 97 Oxygen Delivery Method Room Air Sepsis Recent Fever Within 48 Hours No Sepsis New/Unexplained Change in Mental Status N/A Sepsis Action Taken by Nursing No Action Required 12/23/23 16:14 12/23/23 16:24 12/23/23 16:34 Temperature Temperature Source Pulse Rate 66 65 76 Pulse Rate from SpO2 Sensor 65 Respiratory Rate 24 24 Respiratory Effort / Characteristics Respiratory Depth Respiratory Pattern Blood Pressure 164/85 H Blood Pressure Mean 118 Pulse Oximetry 99 Oxygen Delivery Method Sepsis Recent Fever Within 48 Hours Sepsis New/Unexplained Change in Mental Status Sepsis Action Taken by [facility] Medications Current Medication List: was personally reviewed by me Laboratory Data Attestation: I reviewed the patient's lab results. 12/23/23 14:40 12/23/23 14:40 Lab Results 12/23/23 Range/Units 14:40 WBC 9.94 (4.8-10.8) K/ul RBC 3.35 L (4.20-5.40) M/uL Hgb 9.5 L (12.0-16.0) g/dl Hct 30.0 L (37.0-47.0) % MCV 89.6 (80.0-100.0) fL MCH 28.4 (25.0-34.0) pg MCHC 31.7 L (32.0-36.0) g/dL RDW Std Deviation 49.7 H (36.4-46.3) fL RDW Coeff of Adelina 15.7 H (11.5-14.5) % Plt Count 260 (130-400) K/uL MPV 9.8 (9.4-12.4) fL Immature Gran % (Auto) 0.9 % Neut % (Auto) 74.8 % Lymph % (Auto) 13.0 % [place] % (Auto) 7.7 % Eos % (Auto) 2.9 % Baso % (Auto) 0.7 % Neut # (Auto) 7.43 H (1.40-6.50) K/uL Lymph # (Auto) 1.29 (1.20-3.40) K/uL [place] # (Auto) 0.77 H (0.11-0.59) K/uL Eos # (Auto) 0.29 (0.00-0.50) K/uL Baso # (Auto) 0.07 (0.00-0.20) K/uL Immature Gran # (Auto) 0.09 (0.01-0.20) K/uL PT 10.8 (9.0-12.0) Seconds INR 1.0 (0.9-1.1) APTT 30 (21-31) Seconds PTT Ratio 1.1 VBG pH 7.35 L (7.36-7.41) VBG pCO2 45 (38-50) mmHg VBG pO2 40 mmHg VBG HCO3 25 mmol/L VBG O2 Saturation 67.0 % VBG Base Excess -1.1 mEq/L Sodium 139 (136-145) mmol/L Potassium 4.5 (3.5-5.1) mmol/L Chloride 106 (98-107) mmol/L Carbon Dioxide 26 (21-32) mmol/L Anion Gap 7 (3-11) BUN 61 H (6-23) mg/dl Creatinine 5.21 H* (0.6-1.2) mg/dl Est Cr Clr Drug Dosing Not Reportable Est GFR ( Amer) 9.4 ml/min Est GFR (Non-Af Amer) 8.1 ml/min BUN/Creatinine Ratio 11.7 (10-20) Glucose 128 H (70-99(Fasting)) mg/dl Calcium 8.5 L (8.6-10.3) mg/dl Magnesium 2.8 H (1.7-2.4) mg/dl Total Bilirubin 0.3 (0.2-1.0) mg/dl AST 15 (13-39) U/L ALT 14 (7-52) U/L Alkaline Phosphatase 103 (34-104) U/L Troponin I High Sens 9.6 (0-14) pg/ml Total Protein 6.8 (6.0-8.3) gm/dl Albumin 3.2 L (3.4-5.0) gm/dl Globulin 3.6 (2.5-4.0) gm/dl Albumin/Globulin Ratio 0.9 (0.9-2) Administered Medications Discontinued Medications Bumetanide 2 mg/ Syringe 8 mls @ 4 mls/min IV ONE STA Stop: 12/23/23 17:11 Last Admin: 12/23/23 18:06 Dose: 4 mls/min Documented By: SDK Imaging Data Radiologist's Impression: Chest X-Ray 12/23/23 14:17 SINGLE VIEW CHEST CLINICAL HISTORY: Dyspnea FINDINGS: An AP upright chest radiograph is compared to study dated 08/18/2023 and correlated with chest CT dated 08/16/2023. The heart is enlarged noting atherosclerotic calcification of the thoracic aorta. There is pulmonary vascular congestion and mild interstitial edema. There are right larger than left pleural effusions with dependent consolidation. No pneumothorax is seen. The skeletal structures are osteopenic. The bony thorax is grossly intact. IMPRESSION: 1. Cardiomegaly with evidence of congestive failure. 2. Right larger than left pleural effusions with dependent consolidation. ACT 112: Negative or not required by law. Electronically signed by: Albin Dior M.D. 12/23/2023 3:30 PM Abdomen/Pelvis CT 12/23/23 16:55 CT SCAN OF THE ABDOMEN AND PELVIS WITHOUT IV CONTRAST CLINICAL HISTORY: Acute renal insufficiency COMPARISON STUDY: Abdominal CT dated 01/18/2023. TECHNIQUE: CT scan of the abdomen and pelvis is performed from the lung bases to the proximal femora. Images are reviewed in the axial, sagittal, and coronal planes. IV contrast was not administered for this examination. A dose lowering technique was utilized adhering to the principles of ALARA. The examination is degraded by motion artifact, as well as by streak artifact from the arms which could not be elevated above the abdomen. There is also streak artifact from the body wall abutting the CT gantry. CT DOSE: 1356.97 mGy.cm FINDINGS: Lung bases: The heart is enlarged and without pericardial effusion. The coronary arteries and mitral annulus are densely calcified. Intralobular septal thickening suggests fluid overload/congestive change. There are moderate pleural effusions with dependent consolidation. Liver: The unenhanced liver is top normal in size and normal in contour. Attenuation appears increased which can be seen with iron overload or possibly amiodarone therapy. There is no intrahepatic biliary ductal dilatation. Gallbladder: Surgically absent noting clips in the gallbladder fossa. Spleen: Normal in size and attenuation. There are calcified splenic granulomas. Pancreas: The unenhanced pancreas is moderately atrophic and grossly unremarkable. Adrenal glands: Unremarkable. Kidneys: The unenhanced kidneys demonstrate cortical atrophy and are without hydronephrosis. There are renovascular calcifications. No renal calculi are identified and no ureteral stone is seen. There is no evidence of contour deforming renal mass lesion. There is bilateral perinephric stranding and trace fluid. Abdominal vasculature: The abdominal aorta is normal in course and caliber noting advanced atherosclerotic calcification. Stents are suggested in the superficial femoral arteries. Bowel: No bowel obstruction is seen. The appendix is well-visualized and normal. Peritoneum: There is no intraperitoneal free air or abdominal ascites. Lymphadenopathy: None. Pelvic viscera: The bladder, uterus, and adnexa are normal as visualized. Skeletal structures: The skeletal structures are osteopenic. There is moderate lumbosacral spondylosis. Sclerotic change is noted in the sacroiliac joints. No lytic or blastic lesions are seen. Soft tissues: There is anasarca of the body wall. IMPRESSION: 1. The kidneys demonstrate cortical atrophy and are without hydronephrosis. 2. There is nonspecific bilateral perinephric stranding and trace perinephric fluid. This could be related to acute renal insufficiency. Correlate with clinical findings and urinalysis. 3. Cardiomegaly with evidence of fluid overload/congestive change. 4. Moderate pleural effusions with dependent consolidation. 5. Anasarca of the body wall. 6. Additional findings as above. ACT 112: Negative or not required by law. Electronically signed by: Albin Dior M.D. 12/23/2023 5:33 PM Discharge Plan Visit Data Chief Complaint: Shortness of Breath/Dyspnea Stated Complaint: SOB ED Provider: Albin Johnson Discharge Problem: Hypoxia, Anemia, CHF (congestive heart failure), ELROY (acute kidney injury) Patient Disposition: Admitted As Inpatient Condition: Serious Forms Stand Alone Forms: My [facility] Prescriptions Prescriptions: No Action (DME) Prosthetic Socket replacement See Rx Instructions .Route .MEDSUPPLY Qty: 1 0RF Rx Instructions: As directed. Patient states she is being fitted for a new prosthetic. (DME) Accu-Chek Guide L1-L2 Ctrl Nancy Solution See Rx Instructions .Route Qty: 1 0RF Rx Instructions: As directed trazodone 50 mg tablet 25 mg PO HS Qty: 45 3RF metoprolol tartrate 25 mg tablet 25 mg PO BID Qty: 180 1RF bumetanide 1 mg tablet 1 mg PO BID Qty: 60 5RF amlodipine 10 mg tablet 5 mg PO QAM Qty: 45 1RF omeprazole 20 mg capsule,delayed release(DR/EC) 20 mg PO DAILY 90 Days Qty: 90 1RF rosuvastatin 40 mg tablet 40 mg PO QAM Qty: 90 1RF tramadol 50 mg tablet 50 mg PO Q8H PRN (Reason: pain) Qty: 90 0RF ergocalciferol (vitamin D2) 1,250 mcg (50,000 unit) capsule 50,000 unit PO WEEKLY Qty: 12 0RF Rx Instructions: Saturday polyethylene glycol 3350 [Miralax] 17 gram/dose powder 17 g PO DAILY PRN (Reason: Constipation) loperamide [Imodium A-D] 2 mg capsule 2 mg PO Q6H PRN (Reason: Diarrhea) aspirin [Adult Low Dose Aspirin] 81 mg tablet,delayed release (DR/EC) 81 mg PO DAILY docusate sodium [Stool Softener] 100 mg capsule 100 mg PO DAILY PRN (Reason: Constipation) triamcinolone acetonide 0.5 % cream 1 applic topical BID PRN (Reason: skin irritation) Qty: 60 1RF Rx Instructions: apply to chest (DME) Socket replacement and supplies See Rx Instructions .Route .MEDSUPPLY Qty: 1 0RF Rx Instructions: As directed. Level K2 ferrous sulfate 325 mg (65 mg iron) tablet,delayed release (DR/EC) 325 mg PO BID acetaminophen 650 mg Tablet Extended Release 650 mg PO Q8H PRN (Reason: Pain) diphenhydramine HCl [Sleep Aid (diphenhydramine)] 25 mg tablet 25 mg PO HS PRN (Reason: Sleep) SPS (with sorbitol) 15-20 gram/60 mL suspension 60 ml PO WK Rx Instructions: magnesium 500 mg Tablet 500 mg PO DAILY Referrals Referrals: Andie Rodrigues DO [Primary Care Provider] - Discharge Problem: Anemia Qualifiers: Anemia type: unspecified type Qualified Code(s): D64.9 - Anemia, unspecified CHF (congestive heart failure) Qualifiers: Heart failure type: unspecified Heart failure chronicity: acute Qualified Code(s): I50.9 - Heart failure, unspecified
--- NOTE | 2023-12-23 16:14 | History & Physical Report ---
Date of Service December 23, 2023 Assessment & Plan (1) Hypervolemia associated with renal insufficiency: Plan: CXR with cardiomegaly and evidence of congestive failure BNP ordered, pending Last echo on 01/19/2023 revealed LVEF at 60-65% Increase Bumex 1 mg p.o. BID --> (total 4mg IV given on admission) Bumex 3mg IV BID Daily weights Strict I&O Monitoring Heart Healthy, Low sodium diet (1500mL fluids restriction) (2) Hypoxia: Plan: SOB at rest and orthopnea that began on 12/20 Patient's SpO2 was 81% at her PCPs office Not normally on supplemental oxygen at baseline Titrate somewhat oxygen to maintain SpO2 greater than 94% Continuous pulse oximetry Suspect this is secondary to hypervolemia in the setting of renal failure A.m. CBC, BMP, mag (3) Acute kidney injury superimposed on chronic kidney disease: Plan: BUN 61, creatinine 5.21 (baseline around 3.50), and EGFR 8.1 Patient was previously on dialysis, but was taken off 1 [address] Live catheter CT A/P without contrast ordered to assess for obstruction UA ordered, pending Protein/creatinine ratio ordered, pending Nephrology consulted in the event she would need temporary dialysis (4) Diabetes mellitus type 2 with complications: Plan: Last A1c at 7.0% on 09/18/2023 SSI with target BSG range 110-140mg/dL, CF 50, carb ratio 15 T2DM diet BSG ACHS Adjust regimen as needed AM A1c (5) Sleep apnea: Plan: Not currently on CPAP (6) Recurrent pleural effusion on right: Plan: CXR with right larger than left pleural effusion; recurrent Bumex (as above) If refractory to diuresis, can consider reaching out to pulmonology for potential thoracentesis (7) Hypervolemia: (8) Stage 5 chronic kidney disease not on chronic dialysis: Plan Disposition: Admit to PCU telemetry Full code Heart healthy, T2DM, low-sodium diet (1500 mL fluid restriction) VTE PPx: Heparin 5000u SQ q12h History of Present Illness Chief Complaint: SOB/dyspnea Primary Care Provider: Andie Rodrigues DO Jeanne is a 63-year-old female with PMH of ESRD on HD, chronic diastolic heart failure, PAD, right BKA, T2DM with complications, sleep apnea, GERD, and Charcot's arthroplasty. She presented for SOB/dyspnea on 12/22. Patient was seen by her PCP and was around 81% on RA. She reports the difficulty breathing started 2 days ago. She endorses both SOB at rest and with exertion. It is wo rse when she lies flat on her back. No supplemental oxygen at baseline. She does not wear CPAP at night, and reports that she is unable to tolerate it. She took her regular morning medications today; no recent change in medication, and she reports good compliance with taking her Bumex twice daily. However, there was a 3-day stretch last week when she only took Bumex once daily because her prescription did not arrive as scheduled. No sick contacts. Patient does endorse a 5 pound weight gain over the past 2 days (is usually around 238, but was 243 today). No recent change in diet, and patient reports that she does watch her salt intake. History of recurrent right pleural effusion. Patient follows with Dr. Mei for nephrology; she used to be on dialysis but was taken off dialysis around 1 year ago. Patient denies smoking, tobacco use, and recent alcohol use. Patient is hypertensive at 154/66 and hypoxic at 89% on RA on arrival. ED course: ROS: Patient endorses cold intolerance, dizziness/lightheadedness with walking, SOB with exertion and at rest, orthopnea, dry cough, intermittent constipation/diarrhea, and neuropathy in the arms/legs. Patient denies fever, chills, nightsweats, headache, chest pain, chest palpitations, pleuritic CP, hemoptysis, abdominal pain, N/V, burning with urination, or blood in the urine/stool. Allergies Allergy/AdvReac Type Severity Reaction Status Date / Time daptomycin Allergy Severe rhabdomyoly Verified 12/23/23 11:35 sis amoxicillin Allergy Intermediate HIVES & N/V Verified 12/23/23 11:35 clavulanic acid Allergy Intermediate HIVES & N/V Verified 12/23/23 11:35 vancomycin Allergy Intermediate pruritus Verified 12/23/23 11:35 sulfamethoxazole AdvReac Severe renal Verified 12/23/23 11:35 [From Bactrim] failure trimethoprim [From Bactrim] AdvReac Severe renal Verified 12/23/23 11:35 failure lisinopril AdvReac Intermediate NAUSEA/VOMI Verified 12/23/23 11:35 TING omeprazole AdvReac Intermediate Nausea Verified 12/23/23 11:35 Home Medications Medication Instructions Recorded Confirmed Type acetaminophen 650 mg 650 mg PO Q8H PRN Pain 10/07/20 12/23/23 History tablet,extended release docusate sodium 100 mg capsule 100 mg PO DAILY PRN Constipation 11/10/21 12/23/23 History (Stool Softener) triamcinolone acetonide 0.5 % 1 applic topical BID PRN skin 11/10/21 12/23/23 Rx topical cream irritation #60 grams loperamide 2 mg capsule (Imodium 2 mg PO Q6H PRN Diarrhea 12/13/21 12/23/23 History A-D) polyethylene glycol 3350 17 17 g PO DAILY PRN Constipation 12/13/21 12/23/23 History gram/dose oral powder (Miralax) Prosthetic Socket replacement #1 ea 08/13/22 12/23/23 Rx aspirin 81 mg tablet,delayed 81 mg PO DAILY 11/15/22 12/23/23 History release (Adult Low Dose Aspirin) diphenhydramine HCl 25 mg tablet 25 mg PO HS PRN Sleep 11/15/22 12/23/23 History (Sleep Aid (diphenhydramine)) ferrous sulfate 325 mg (65 mg 325 mg PO BID 03/11/23 12/23/23 History iron) tablet,delayed release blood glucose control high and low #1 ea 04/03/23 12/23/23 Rx solution (Accu-Chek Guide L1-L2 Control Solution) trazodone 50 mg tablet 25 mg (1/2 x 50 mg) PO HS #45 tabs 05/27/23 12/23/23 Rx Socket replacement and supplies #1 ea 05/30/23 12/23/23 Rx magnesium 500 mg tablet 500 mg PO DAILY 08/16/23 12/23/23 History sodium polystyrene sulfonate 15 60 ml PO WK 08/16/23 12/23/23 History gram-sorbitol 20 gram/60 mL oral susp (SPS (with sorbitol)) metoprolol tartrate 25 mg tablet 25 mg PO BID #180 tabs 10/21/23 12/23/23 Rx bumetanide 1 mg tablet 1 mg PO BID #60 tabs 10/22/23 12/23/23 Rx amlodipine 10 mg tablet 5 mg (1/2 x 10 mg) PO QAM #45 tabs 11/06/23 12/23/23 Rx omeprazole 20 mg capsule,delayed 20 mg PO DAILY 90 days #90 caps 11/27/23 12/23/23 Rx release rosuvastatin 40 mg tablet 40 mg PO QAM #90 tabs 11/27/23 12/23/23 Rx tramadol 50 mg tablet 50 mg PO Q8H PRN pain #90 tabs 12/09/23 12/23/23 Rx ergocalciferol (vitamin D2) 1,250 50,000 unit PO WEEKLY #12 caps 12/20/23 12/23/23 Rx mcg (50,000 unit) capsule Past Med/Surg History Problem List Essential hypertension (HFpEF) heart failure with preserved ejection fraction Chronic kidney disease, stage V Hypervolemia associated with renal insufficiency ELROY (acute kidney injury) (Acute) CHF (congestive heart failure) (Acute) Anemia (Acute) Hypoxia (Acute) Hypoxia Hypervolemia Acute kidney injury superimposed on chronic kidney disease Stage 5 chronic kidney disease not on chronic dialysis Diabetes mellitus type 2 with complications Acute kidney failure Recurrent pleural effusion on right SOB (shortness of breath) Orthopnea Neuropathy Hyperkalemia Chronic kidney disease, stage 4 (severe) Anemia (Acute) Renal hematoma, left Proteinuria Diabetic neuropathy PAD (peripheral artery disease) Irregular bowel habits Chronic heart failure with preserved ejection fraction (HFpEF) GERD (gastroesophageal reflux disease) (Chronic) Chronic constipation Vitamin D deficiency 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) Chronic diastolic CHF (congestive heart failure) Charcot's arthropathy Sleep apnea no cpap Dyslipidemia Chronic back pain Chronic venous insufficiency (Chronic) Osteoarthritis (Chronic) Medical History ESRD on dialysis Dyspnea Chronic osteomyelitis Hypertension Non-traumatic rhabdomyolysis (02/2021) Postmenopausal bleeding Anemia of chronic disease Diabetic ulcer of left great toe PAD (peripheral artery disease) S/P right lower extremity angiogram, mechanical thrombectomy of pre-existing superficial femoral artery stent usin Vidal [place] Omni catheter, balloon angioplasty of the superficial femoral artery stent using 5 X 200 mm [place] balloon, balloon angioplasty of the superficial femoral artery 6 X 250 mm IN.PACT drug coated balloon, stent angioplasty of the superficial femoral artery using 5 X 150 mm INOVA bare metal stent, and debridement of the right lateral foot on 11/14/[address] Lomeli. S/P bilateral SFA stenting Morbid obesity BMI 45.7 Clostridium difficile colitis history (~11/2016) -- treated no problems since. Charcot's joint of foot due to diabetes Surgical History History of vascular surgery (04/20/22) L SFA Angio Extremity Unilateral Fem Pop Balloon Atherectomy History of bilateral cataract extraction Status post amputation of toe of right foot (11/14/20) amputation metatarsal w/ toe, R S/P vascular surgery (11/2020) R fem-pop [id number] w/ stent and angioplasty S/P femoral-popliteal bypass surgery S/P angioplasty (10/2019) RT SFA atherectomy/angioplasty w/ MARSHA S/P angioplasty (06/2019) LT SFA angioplastly with MARSHA History of cholecystectomy History of tooth extraction History of esophagogastroduodenoscopy (EGD) S/P epidural steroid injection H/O vascular surgery (01/2020) LT SFA atherectomy, MARSHA w/ supera stenting History of lumpectomy of right breast benign Status post tubal ligation Status post tonsillectomy Family History Mother Rheumatoid arthritis Father Emphysema of lung Peripheral artery disease Aunt Breast cancer MOMS SIDE Colorectal cancer MOMS SIDE Myocardial infarction MOMS SIDE Brother Prostate cancer Sister COPD (chronic obstructive pulmonary disease) Other No family history of adverse response to anesthesia Denies family history of Ovarian cancer CAD (coronary atherosclerotic disease) Social History Smoking Status: Former smoker Tobacco Type: Cigarettes packs per day: 2; Second Hand Exposure: No; Do You Dip or Chew Tobacco: No; Hx Alcohol Use: No Hx Substance Use: No Preferred Language: [place] Communication Ability: Effective Visual Impairment: No Limitations Hearing Ability: Normal Tanning Wheel Filler Required: Yes Beliefs That Will Affect Care: None marital status: Current Living Situation: Spouse and Family Current Living Situation Comment: lives with and son current occupational status: disabled How many Children do You have: 1 other: previous worked at [employer] Feels Safe at Home: Yes Childhood Exposure to Second-Hand Smoke: Yes (father was a heavy smoker ) Diet: regular Diet Comment: regular caffeine: Yes (very little) during the past year weight has: remained stable Dental Care, Regularly: No Physical Activity Frequency: Does not Exercise Seatbelt Use: always Sunscreen Use: No Assistive Devices: Cane, Walker, Wheelchair and Other Review of Systems Review of Systems: See HPI above Physical Exam Physical Exam: General: no acute distress; pleasant affect; non-toxic appearing; well- nourished; cooperative; SpO2 99% on 3L NC HEENT: normocephalic, atraumatic; no scleral icterus; PERRLA w/ EOMs intact; moist mucus membrane; vision and hearing grossly intact Neck: supple; negative JVP; no lymphadenopathy; trachea midline Skin: warm, dry without signs of tenting; no cyanosis; no rashes, bruising, lesions, or erythema noted CV: chest wall NTP; RRR; S1/S2 normal; no murmurs/rubs/gallops; pulses intact and symmetric at radial, DP, and PT Lungs: no acute respiratory distress; symmetrical chest wall expansion; clear breath sounds across all lung erazo w/o adventitious sounds; no wheezing ABD: Soft, NTP; BS present; no rebound/guarding; no distention; suboptimal exam secondary to body habitus MSK: Right BKA; no tics or fasciculations; +1 pitting edema in the left lower extremity, nonerythematous Neuro: A&Ox3; normal mood and affect; fluent speech; no focal deficits; sensation grossly intact in the LLE Results & Data Results & Data Vital Signs (Past 12 Hours) Vital Signs Temp Pulse Resp BP Pulse Ox O2 Del Method 12/23/23 14:13 36.3 C L 77 18 154/66 H 89 L Room Air Laboratory Results Abnormal lab results 12/23/23 Range/Units 14:40 RBC 3.35 L (4.20-5.40) M/uL Hgb 9.5 L (12.0-16.0) g/dl Hct 30.0 L (37.0-47.0) % MCHC 31.7 L (32.0-36.0) g/dL RDW Std Deviation 49.7 H (36.4-46.3) fL RDW Coeff of Adelina 15.7 H (11.5-14.5) % Neut # (Auto) 7.43 H (1.40-6.50) K/uL [place] # (Auto) 0.77 H (0.11-0.59) K/uL VBG pH 7.35 L (7.36-7.41) BUN 61 H (6-23) mg/dl Creatinine 5.21 H* (0.6-1.2) mg/dl Glucose 128 H (70-99(Fasting)) mg/dl Calcium 8.5 L (8.6-10.3) mg/dl Albumin 3.2 L (3.4-5.0) gm/dl Diagnostic Findings Chest X-Ray 12/23/23 14:17 SINGLE VIEW CHEST CLINICAL HISTORY: Dyspnea FINDINGS: An AP upright chest radiograph is compared to study dated 08/18/2023 and correlated with chest CT dated 08/16/2023. The heart is enlarged noting atherosclerotic calcification of the thoracic aorta. There is pulmonary vascular congestion and mild interstitial edema. There are right larger than left pleural effusions with dependent consolidation. No pneumothorax is seen. The skeletal structures are osteopenic. The bony thorax is grossly intact. IMPRESSION: 1. Cardiomegaly with evidence of congestive failure. 2. Right larger than left pleural effusions with dependent consolidation. ACT 112: Negative or not required by law. Electronically signed by: Albin Dior M.D. 12/23/2023 3:30 PM ECG Additional Comments: ECG revealed sinus rhythm with first-degree AV block at 68 bpm; QTc 465 Code Status & VTE Plan Code Status Full code VTE Prophylaxis Plan VTE Prophylaxis will be ordered: Yes Supervising Physician Co-Signing Physician Notes I personally saw and examined the patient. I independently reviewed the labs, EKG, imaging, problem list, medication list, past medical history and family history. I verified all hernandez points and agree with Domo Dunbar PA-C with the following exceptions and/or additions: 63 year old female with CKD presents to the ER with progressive worsening shortness of breath O/E HS RRR, no murmurs, Chest bibasal absent breath sounds, Abdo SNT, abdominal anasarca, b/l pedal edema A/P Hypervolemia due to renal insufficiency - her problem is her kidney function rather than her heart with missing medication leading to worsening hypervolemia and subsequent worsening renal perfusion and ELROY. Live catheter inserted for accurate I&Os and to make sure she continues to produce urine. Initial dose of bumex produced 200ml UO over 2 hours therefore additional 2mg IV given and will increase her bumex to 3mg IV BID preliminary although this may need to be increased depending on ongoing I&Os, daily weights and BMP. Consult nephrology for ongoing management. Hypoxia without acute respiratory failure - secondary to above, aim O2 sats > 90% PG Care Time/CCT Total # of Minutes Spent Total Time Spent with Patient: Total time spent is greater than 50% in coordination of care (as documented) at patient's floor/unit and/or counseling patient: C[place] [address] INT INP/OBS CARE 3/75MIN Patient Type Established Medical Decision Making High Complexity Diagnoses Hypervolemia associated with renal insufficiency E87.70; N28.9 Hypoxia R09.02 Acute kidney injury superimposed on chronic kidney disease N17.9; N18.9 Diabetes mellitus type 2 with complications E11.8 Obstructive sleep apnea syndrome G47.33 Sleep apnea type: obstructive Recurrent pleural effusion on right J90 Hypervolemia E87.70 Stage 5 chronic kidney disease not on chronic dialysis N18.5 (5) Sleep apnea Sleep apnea type: obstructive Qualified Code(s): G47.33 - Obstructive sleep apnea (adult) (pediatric)
[2023-12-23 17:16] LABS: Magnesium 2.8 mg/dl (1.7-2.4)
--- NOTE | 2023-12-23 17:35 | CT Scan Report ---
CT SCAN OF THE ABDOMEN AND PELVIS WITHOUT IV CONTRAST CLINICAL HISTORY: Acute renal insufficiency COMPARISON STUDY: Abdominal CT dated 01/18/2023. TECHNIQUE: CT scan of the abdomen and pelvis is performed from the lung bases to the proximal femora. Images are reviewed in the axial, sagittal, and coronal planes. IV contrast was not administered for this examination. A dose lowering technique was utilized adhering to the principles of ALARA. The ex amination is degraded by motion artifact, as well as by streak artifact from the arms which could not be elevated above the abdomen. There is also streak artifact from the body wall abutting the CT yanique ry. CT DOSE: 1356.97 mGy.cm FINDINGS: Lung bases: The heart is enlarged and without pericardial effusion. The coronary arteries and mitral annulus are densely calcified. Intralobular septal thickening suggests fluid overload/congestive santiago ge. There are moderate pleural effusions with dependent consolidation. Liver: The unenhanced liver is top normal in size and normal in contour. Attenuation appears increase d which can be seen with iron overload or possibly amiodarone therapy. There is no intrahepatic bilia ry ductal dilatation. Gallbladder: Surgically absent noting clips in the gallbladder fossa. Spleen: Normal in size and attenuation. There are calcified splenic granulomas. Pancreas: The unenhanced pancreas is moderately atrophic and grossly unremarkable. Adrenal glands: Unremarkable. Kidneys: The unenhanced kidneys demonstrate cortical atrophy and are without hydronephrosis. There ar e renovascular calcifications. No renal calculi are identified and no ureteral stone is seen. There i s no evidence of contour deforming renal mass lesion. There is bilateral perinephric stranding and tr galina fluid. Abdominal vasculature: The abdominal aorta is normal in course and caliber noting advanced atheroscle rotic calcification. Stents are suggested in the superficial femoral arteries. Bowel: No bowel obstruction is seen. The appendix is well-visualized and normal. Peritoneum: There is no intraperitoneal free air or abdominal ascites. Lymphadenopathy: None. Pelvic viscera: The bladder, uterus, and adnexa are normal as visualized. Skeletal structures: The skeletal structures are osteopenic. There is moderate lumbosacral spondylosi s. Sclerotic change is noted in the sacroiliac joints. No lytic or blastic lesions are seen. Soft tissues: There is anasarca of the body wall. IMPRESSION: 1. The kidneys demonstrate cortical atrophy and are without hydronephrosis. 2. There is nonspecific bilateral perinephric stranding and trace perinephric fluid. This could be re lated to acute renal insufficiency. Correlate with clinical findings and urinalysis. 3. Cardiomegaly with evidence of fluid overload/congestive change. 4. Moderate pleural effusions with dependent consolidation. 5. Anasarca of the body wall. 6. Additional findings as above. ACT 112: Negative or not required by law. Electronically signed by: Albin Dior M.D. 12/23/2023 5:33 PM
[2023-12-23] MEDS: BUMETANIDE 2 MG in SYRINGE 0 ML IV STA (18:06)
[2023-12-23 19:39] LABS: Appearance Urine Clear (Clear); Bacteria Urine Automated None Seen (None Seen); Bilirubin Urine Negative (Negative); Blood Urine 2+ (Negative); Color Urine Yellow; Epithelial Cell Urine Auto 0-2 /hpf (0-2); Glucose Urine UA 1+ (Negative); Ketones Urine Negative (Negative); Leukocyte Esterase Urine Negative (Negative); Nitrite Urine Negative (Negative); Protein Urine 4+ (Negative); Specific Gravity Urine 1.015 (1.000-1.030); Urobilinogen Urine Negative (Negative); WBC Urine Automated 0-5 /hpf (0-5); pH Urine 6.5 (4.5-7.5)
[2023-12-23] MEDS ORDERED: TRIAMCINOLONE ACET 0.5% CR 15 GM TUBE TOP PRN (20:09)
[2023-12-23] MEDS ORDERED: CARBOHYDRATES FOR HYPOGLYCEMIA PO PRN (20:09)
[2023-12-23] MEDS ORDERED: GLUCAGON FOR INJ 1 MG VIAL SQ PRN (20:09)
[2023-12-23] MEDS ORDERED: GLUCOSE 40% GEL 15 GM TUBE PO PRN (20:09)
[2023-12-23] MEDS ORDERED: DEXTROSE 50% 50 ML SYRINGE IV PRN (20:09)
[2023-12-23] MEDS ORDERED: ACETAMINOPHEN 325 MG TAB PO PRN (20:09)
[2023-12-23] MEDS ORDERED: DOCUSATE SODIUM 100 MG CAP PO PRN (20:09)
[2023-12-23] MEDS ORDERED: POLYETHYLENE (MIRALAX) 17 GM PACK PO PRN (20:09)
[2023-12-23] MEDS ORDERED: GLUCOSE 10 TAB/TUBE PO PRN (20:09)
[2023-12-23] MEDS ORDERED: LOPERAMIDE HCL 2 MG CAP PO PRN (20:09)
[2023-12-23 20:16] LABS: Creatinine Urine Random 43.5 mg/dl; Protein Creatinine Ratio Urine 17.2 (0-0.2); Total Protein Urine Random 748.1 mg/dl (0-11.9)
[2023-12-23] MEDS: INSULIN ASPART PER UNIT CHARGE SC SCH (20:33)
[2023-12-23] MEDS: METOPROLOL TARTRATE 25 MG TAB PO SCH (20:48)
[2023-12-23] MEDS: traMADol HCL 50 MG TABLET PO PRN (20:48)
[2023-12-23] MEDS: traZODone HCL 50 MG TAB PO SCH (20:48)
[2023-12-23] MEDS: HEPARIN SOD 5,000 UNIT/0.5 ML VIAL SQ SCH (21:48)
[2023-12-23] MEDS: BUMETANIDE 2 MG in SYRINGE 0 ML IV ONE (21:48)
[2023-12-24 06:33] LABS: Basophils # (auto) 0.06 K/uL (0.00-0.20); Basophils % (auto) 0.7 %; Eosinophils # (auto) 0.23 K/uL (0.00-0.50); Eosinophils % (auto) 2.7 %; Hematocrit (blood only) 29.7 % (37.0-47.0); Hemoglobin 9.3 g/dl (12.0-16.0); Immature Granulocytes % (auto) 1.2 %; Lymphocytes % (auto) 17.5 %; Mean Corpuscular Hemoglobin 28.4 pg (25.0-34.0); Mean Corpuscular Hgb Conc 31.3 g/dL (32.0-36.0); Mean Corpuscular Volume 90.5 fL (80.0-100.0); Mean Platelet Volume 9.7 fL (9.4-12.4); Monocytes # (auto) 0.66 K/uL (0.11-0.59); Monocytes % (auto) 7.7 %; Neutrophils # (auto) 6.01 K/uL (1.40-6.50); Neutrophils % (auto) 70.2 %; Nucleated RBC # (auto) 0.02 K/uL (0.00-0.12); Nucleated RBC % (auto) 0.2 %; Platelet Count 243 K/uL (130-400); RDW Coefficient of Variation 15.4 % (11.5-14.5); Red Blood Count 3.28 M/uL (4.20-5.40); White Blood Count 8.56 K/ul (4.8-10.8)
[2023-12-24 06:54] LABS: BUN Creatinine Ratio 11.8 (10-20); Calcium 8.4 mg/dl (8.6-10.3); Creatinine Clr Calc Pharmacy 12.1 ml/min; Est GFR (African American) 8.9 ml/min; Est GFR (Non-African American) 7.7 ml/min; Magnesium 2.7 mg/dl (1.7-2.4); Potassium 4.1 mmol/L (3.5-5.1)
[2023-12-24 07:47] LABS: Estimated Average Glucose 128 mg/dl; Hemoglobin A1C 6.1 % (4.5-5.6)
[2023-12-24] MEDS: amLODIPine BESYLATE 5 MG TAB PO SCH (08:53)
[2023-12-24] MEDS: BUMETANIDE 3 MG in SYRINGE 0 ML IV SCH (08:53)
[2023-12-24] MEDS: PANTOprazole 40 MG TAB PO SCH (08:53)
[2023-12-24] MEDS: ASPIRIN 81 MG ECTAB PO SCH (08:53)
--- NOTE | 2023-12-24 08:54 | Nephrology Consultation ---
Date of Consultation December 24, 2023 Assessment & Plan (1) ELROY (acute kidney injury): * ELROY likely on the basis of CHF and impaired renal perfusion (2) Chronic kidney disease, stage V: * ESKD due to biopsy proven DKD. Baseline Cr 3.5 * Required IHD 10/30-01/30 following [place] kidney biopsy due to perinephric hematoma * Declined AVF unless HD becomes permanent. Reviewed benefits of early creation of AVF with patient today * Electrolyte balance is acceptable at this time. No acute indication for HD today (3) Chronic heart failure with preserved ejection fraction (HFpEF): * Recurrent pleural effusions: Required R thoracentesis 08/05/23 for 1 L (transudative), 09/01/23 R thoracentesis for 2.2 L volume removal * Now presents w/ mild CHF and R>L effusions after reducing loop diuretic dosing * Continue Bumex 3 mg IV BID * Monitor UO, BMP, pulmonary exam * Will repeat CXR in AM History of Present Illness Reason for Consultation: ELROY/CKD Attending Physician: Adan Kay MD History of Present Illness Mrs. Simpson is a 62 year old white female who is seen at the request of [facility] hosipalist service for evaluation of ELROY/CKD. Information for the HPI is obtained from direct patient interview and review of the EMR. HPI is summarized as follows: Mrs. Simpson has CKD stage G5 (ESKD). Baseline Cr has been 3.0-3.5. Her primary Tool Crib Clerk is Dr. Mei. Outpatient evaluation revealed proteinuria and 10/30 [place] kidney biopsy was c/w DKD. Unfortunately procedure was complicated by perinephric hematoma and ELROY/CKD requiring IJ TCC and initiation of HD. 01/30 patient recovered renal function and came off HD. Her creatinine stabilized at 3.5. She declined AVF creation unless permanent HD was necessary. Mrs. Simpson has a h/o recurrent pleural effusion. On 08/05/23 she required R thoracentesis w/ 1 L fluid removal (transudative). On 09/01/23 she again required R thoracentesis w/ 2.2 L volume removal. Mrs. Simpson had been on Bumex 1 mg po BID. She receives her medication via mail order. Unfortunately her last Rx has been delayed and she has been taking her Bumex as 1 mg daily and skipping the evening dose. Over the last 4 days Mrs. Simpson has suffered from progressive dyspnea. EMD evaluation included a CXR which reveals CHF and R > L pleural effusions. Mrs. Simpson currently denies fever, cough, sputum production or uremic symptoms. Weight has recently increased from 238 to 243 lbs. Creatinine has risen to 5.43. 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, Morbid Obesity, and HTN Allergies Allergy/AdvReac Type Severity Reaction Status Date / Time daptomycin Allergy Severe rhabdomyoly Verified 12/23/23 11:35 sis amoxicillin Allergy Intermediate HIVES & N/V Verified 12/23/23 11:35 clavulanic acid Allergy Intermediate HIVES & N/V Verified 12/23/23 11:35 vancomycin Allergy Intermediate pruritus Verified 12/23/23 11:35 sulfamethoxazole AdvReac Severe renal Verified 12/23/23 11:35 [From Bactrim] failure trimethoprim [From Bactrim] AdvReac Severe renal Verified 12/23/23 11:35 failure lisinopril AdvReac Intermediate NAUSEA/VOMI Verified 12/23/23 11:35 TING omeprazole AdvReac Intermediate Nausea Verified 12/23/23 11:35 Home Medications Medication Instructions Recorded Confirmed Type acetaminophen 650 mg 650 mg PO Q8H PRN Pain 10/07/20 12/23/23 History tablet,extended release docusate sodium 100 mg capsule 100 mg PO DAILY PRN Constipation 11/10/21 12/23/23 History (Stool Softener) triamcinolone acetonide 0.5 % 1 applic topical BID PRN skin 11/10/21 12/23/23 Rx topical cream irritation #60 grams loperamide 2 mg capsule (Imodium 2 mg PO Q6H PRN Diarrhea 12/13/21 12/23/23 History A-D) polyethylene glycol 3350 17 17 g PO DAILY PRN Constipation 12/13/21 12/23/23 History gram/dose oral powder (Miralax) Prosthetic Socket replacement #1 ea 08/13/22 12/23/23 Rx aspirin 81 mg tablet,delayed 81 mg PO DAILY 11/15/22 12/23/23 History release (Adult Low Dose Aspirin) diphenhydramine HCl 25 mg tablet 25 mg PO HS PRN Sleep 11/15/22 12/23/23 History (Sleep Aid (diphenhydramine)) ferrous sulfate 325 mg (65 mg 325 mg PO BID 03/11/23 12/23/23 History iron) tablet,delayed release blood glucose control high and low #1 ea 04/03/23 12/23/23 Rx solution (Accu-Chek Guide L1-L2 Control Solution) trazodone 50 mg tablet 25 mg (1/2 x 50 mg) PO HS #45 tabs 05/27/23 12/23/23 Rx Socket replacement and supplies #1 ea 05/30/23 12/23/23 Rx magnesium 500 mg tablet 500 mg PO DAILY 08/16/23 12/23/23 History sodium polystyrene sulfonate 15 60 ml PO WK 08/16/23 12/23/23 History gram-sorbitol 20 gram/60 mL oral susp (SPS (with sorbitol)) metoprolol tartrate 25 mg tablet 25 mg PO BID #180 tabs 10/21/23 12/23/23 Rx bumetanide 1 mg tablet 1 mg PO BID #60 tabs 10/22/23 12/23/23 Rx amlodipine 10 mg tablet 5 mg (1/2 x 10 mg) PO QAM #45 tabs 11/06/23 12/23/23 Rx omeprazole 20 mg capsule,delayed 20 mg PO DAILY 90 days #90 caps 11/27/23 12/23/23 Rx release rosuvastatin 40 mg tablet 40 mg PO QAM #90 tabs 11/27/23 12/23/23 Rx tramadol 50 mg tablet 50 mg PO Q8H PRN pain #90 tabs 12/09/23 12/23/23 Rx ergocalciferol (vitamin D2) 1,250 50,000 unit PO WEEKLY #12 caps 12/20/23 12/23/23 Rx mcg (50,000 unit) capsule Patient History Medical History ESRD on dialysis Dyspnea Chronic osteomyelitis Hypertension Non-traumatic rhabdomyolysis (02/2021) Postmenopausal bleeding Anemia of chronic disease Diabetic ulcer of left great toe PAD (peripheral artery disease) S/P right lower extremity angiogram, mechanical thrombectomy of pre-existing superficial femoral artery stent usinh Anjojet Martin Omni catheter, balloon angioplasty of the superficial femoral artery stent using 5 X 200 mm [place] balloon, balloon angioplasty of the superficial femoral artery 6 X 250 mm IN.PACT drug coated balloon, stent angioplasty of the superficial femoral artery using 5 X 150 mm INOVA bare metal stent, and debridement of the right lateral foot on 11/14/[address] Lomeli. S/P bilateral SFA stenting Morbid obesity BMI 45.7 Clostridium difficile colitis history (~11/2016) -- treated no problems since. Charcot's joint of foot due to diabetes Surgical History History of vascular surgery (04/20/22) L SFA Angio Extremity Unilateral Fem Pop Balloon Atherectomy History of bilateral cataract extraction Status post amputation of toe of right foot (11/14/20) amputation metatarsal w/ toe, R S/P vascular surgery (11/2020) R fem-pop [id number] w/ stent and angioplasty S/P femoral-popliteal bypass surgery S/P angioplasty (10/2019) RT SFA atherectomy/angioplasty w/ MARSHA S/P angioplasty (06/2019) LT SFA angioplastly with MARSHA History of cholecystectomy History of tooth extraction History of esophagogastroduodenoscopy (EGD) S/P epidural steroid injection H/O vascular surgery (01/2020) LT SFA atherectomy, MARSHA w/ supera stenting History of lumpectomy of right breast benign Status post tubal ligation Status post tonsillectomy Family History Mother Rheumatoid arthritis Father Emphysema of lung Peripheral artery disease Aunt Breast cancer MOMS SIDE Colorectal cancer MOMS SIDE Myocardial infarction MOMS SIDE Brother Prostate cancer Sister COPD (chronic obstructive pulmonary disease) Other No family history of adverse response to anesthesia Denies family history of Ovarian cancer CAD (coronary atherosclerotic disease) Social History Smoking Status: Former smoker Tobacco Type: Cigarettes packs per day: 2; Second Hand Exposure: No; Do You Dip or Chew Tobacco: No; Hx Alcohol Use: No Hx Substance Use: No Preferred Language: Albanian Communication Ability: Effective Visual Impairment: No Limitations Hearing Ability: Normal Work Force Advisor Required: Yes Beliefs That Will Affect Care: None marital status: Current Living Situation: Spouse and Family Current Living Situation Comment: lives with and son current occupational status: disabled How many Children do You have: 1 Other Information That Helps Us Care for You: No other: previous worked [facility] [employer] Feels Safe at Home: Yes Safety Concerns: Feels Safe At This Time Childhood Exposure to Second-Hand Smoke: Yes (father was a heavy smoker ) Diet: regular Diet Comment: regular caffeine: Yes (very little) during the past year weight has: remained stable Dental Care, Regularly: No Physical Activity Frequency: Does not Exercise Seatbelt Use: always Sunscreen Use: No Assistive Devices: Cane, Denture - Upper, Denture - Lower, Glasses, Prosthesis, Scooter/Electric Scooter and Wheelchair Review of Systems Constitutional: no fever Eyes: no worsening vision Ear, Nose, Mouth, Throat: no problem reported Respiratory: + dyspnea; no cough, no hemoptysis and n o wheezing Cardiovascular: no chest pain Gastrointestinal: no nausea, no vomiting and no diarrhea/loose stools Genitourinary: no dysuria and no hematuria Musculoskeletal: no back pain Integumentary: no rash Neurologic: no problem reported Physical Exam Constitutional: not in distress Eyes: PERRL, conjunctivae normal, anicteric sclerae ENMT: external ear and nose normal, oropharynx normal Neck: trachea midline, no thyromegaly Respiratory: Auscultation: + rales Cardiovascular: Rate/Rhythm: + bradycardic Gastrointestinal (Abdomen): normal bowel sounds, soft, nontender, no hepatosplenomegaly Musculoskeletal: R BKA Skin: no rashes, warm and dry Neurologic: Speech / Cognition: normal speech and normal cognition Psychiatric: Affect: euthymic affect Results & Data Vital Signs (Past 12 Hours) Vital Signs Temp Pulse Pulse Resp BP BP Pulse Ox 12/24/23 07:21 36.3 C L 57 L 20 156/76 H 96 12/24/23 02:41 36.5 C 70 20 181/72 H 94 12/24/23 00:36 81 12/24/23 00:20 12/23/23 23:48 36.8 C 83 16 183/96 H 95 12/23/23 22:00 70 16 181/79 H 98 12/23/23 22:00 Pulse Ox O2 Del Method O2 Del Method O2 Flow Rate 12/24/23 07:21 Room Air 12/24/23 02:41 Nasal Cannula 4 12/24/23 00:36 12/24/23 00:20 Nasal Cannula 12/23/23 23:48 Nasal Cannula 4 12/23/23 22:00 Nasal Cannula 4 12/23/23 22:00 98 Room Air Laboratory Results Laboratory Results WBC 8.56 K/ul (4.8-10.8) 12/24/23 06:05 RBC 3.28 M/uL (4.20-5.40) L 12/24/23 06:05 Hgb 9.3 g/dl (12.0-16.0) L 12/24/23 06:05 Hct 29.7 % (37.0-47.0) L 12/24/23 06:05 MCV 90.5 fL (80.0-100.0) 12/24/23 06:05 MCH 28.4 pg (25.0-34.0) 12/24/23 06:05 MCHC 31.3 g/dL (32.0-36.0) L 12/24/23 06:05 RDW Std Deviation 50.0 fL (36.4-46.3) H 12/24/23 06:05 RDW Coeff of Adelina 15.4 % (11.5-14.5) H 12/24/23 06:05 Plt Count 243 K/uL (130-400) 12/24/23 06:05 MPV 9.7 fL (9.4-12.4) 12/24/23 06:05 Immature Gran % (Auto) 1.2 % 12/24/23 06:05 Neut % (Auto) 70.2 % 12/24/23 06:05 Lymph % (Auto) 17.5 % 12/24/23 06:05 [place] % (Auto) 7.7 % 12/24/23 06:05 Eos % (Auto) 2.7 % 12/24/23 06:05 Baso % (Auto) 0.7 % 12/24/23 06:05 Neut # (Auto) 6.01 K/uL (1.40-6.50) 12/24/23 06:05 Lymph # (Auto) 1.50 K/uL (1.20-3.40) 12/24/23 06:05 [place] # (Auto) 0.66 K/uL (0.11-0.59) H 12/24/23 06:05 Eos # (Auto) 0.23 K/uL (0.00-0.50) 12/24/23 06:05 Baso # (Auto) 0.06 K/uL (0.00-0.20) 12/24/23 06:05 Immature Gran # (Auto) 0.10 K/uL (0.01-0.20) 12/24/23 06:05 Absolute Nucleated RBC 0.02 K/uL (0.00-0.12) 12/24/23 06:05 Nucleated RBC % (auto) 0.2 % 12/24/23 06:05 PT 10.8 Seconds (9.0-12.0) 12/23/23 14:40 INR 1.0 (0.9-1.1) 12/23/23 14:40 APTT 30 Seconds (21-31) 12/23/23 14:40 PTT Ratio 1.1 12/23/23 14:40 VBG pH 7.35 (7.36-7.41) L 12/23/23 14:40 VBG pCO2 45 mmHg (38-50) 12/23/23 14:40 VBG pO2 40 mmHg 12/23/23 14:40 VBG HCO3 25 mmol/L 12/23/23 14:40 VBG O2 Saturation 67.0 % 12/23/23 14:40 VBG Base Excess -1.1 mEq/L 12/23/23 14:40 Sodium 138 mmol/L (136-145) 12/24/23 06:04 Potassium 4.1 mmol/L (3.5-5.1) 12/24/23 06:04 Chloride 106 mmol/L (98-107) 12/24/23 06:04 Carbon Dioxide 25 mmol/L (21-32) 12/24/23 06:04 Anion Gap 7 (3-11) 12/24/23 06:04 BUN 64 mg/dl (6-23) H 12/24/23 06:04 Creatinine 5.43 mg/dl (0.6-1.2) H* 12/24/23 06:04 Est Cr Clr Drug Dosing 12.1 ml/min 12/24/23 06:04 Est GFR ( Amer) 8.9 ml/min 12/24/23 06:04 Est GFR (Non-Af Amer) 7.7 ml/min 12/24/23 06:04 BUN/Creatinine Ratio 11.8 (10-20) 12/24/23 06:04 Glucose 130 mg/dl (70-99(Fasting)) H 12/24/23 06:04 POC Glucose 135 mg/dl (70-99) H 12/24/23 07:20 Estimat Average Glucose 128 mg/dl 12/24/23 06:05 Hemoglobin A1c 6.1 % (4.5-5.6) H 12/24/23 06:05 Calcium 8.4 mg/dl (8.6-10.3) L 12/24/23 06:04 Magnesium 2.7 mg/dl (1.7-2.4) H 12/24/23 06:04 Total Bilirubin 0.3 mg/dl (0.2-1.0) 12/23/23 14:40 AST 15 U/L (13-39) 12/23/23 14:40 ALT 14 U/L (7-52) 12/23/23 14:40 Alkaline Phosphatase 103 U/L (34-104) 12/23/23 14:40 Troponin I High Sens 9.6 pg/ml (0-14) 12/23/23 14:40 B-Natriuretic Peptide 437 pg/ml (0-100) H 12/23/23 17:50 Total Protein 6.8 gm/dl (6.0-8.3) 12/23/23 14:40 Albumin 3.2 gm/dl (3.4-5.0) L 12/23/23 14:40 Globulin 3.6 gm/dl (2.5-4.0) 12/23/23 14:40 Albumin/Globulin Ratio 0.9 (0.9-2) 12/23/23 14:40 Urine Color Yellow 12/23/23 19:12 Urine Appearance Clear (Clear) 12/23/23 19:12 Urine pH 6.5 (4.5-7.5) 12/23/23 19:[address] 1.015 (1.000-1.030) 12/23/23 19:12 Urine Protein 4+ (Negative) H 12/23/23 19:12 Urine Glucose (UA) 1+ (Negative) H 12/23/23 19:12 Urine Ketones Negative (Negative) 12/23/23 19:12 Urine Blood 2+ (Negative) H 12/23/23 19:12 Urine Nitrite Negative (Negative) 12/23/23 19:12 Urine Bilirubin Negative (Negative) 12/23/23 19:12 Urine Urobilinogen Negative (Negative) 12/23/23 19:12 Ur Leukocyte Esterase Negative (Negative) 12/23/23 19:12 Urine WBC (Auto) 0-5 /hpf (0-5) 12/23/23 19:12 Urine RBC (Auto) 11-20 /hpf (0-2) H 12/23/23 19:12 U Hyaline Cast (Auto) 3-5 /lpf (0-2) H 12/23/23 19:12 U Epithel Cells (Auto) 0-2 /hpf (0-2) 12/23/23 19:12 Urine Bacteria (Auto) None Seen (None Seen) 12/23/23 19:12 Ur Random Creatinine 43.5 mg/dl 12/23/23 19:12 U Random Total Protein 748.1 mg/dl (0-11.9) H 12/23/23 19:12 Protein/Creatinin Ratio 17.2 (0-0.2) H 12/23/23 19:12 Impressions Chest X-Ray 12/23/23 14:17 SINGLE VIEW CHEST CLINICAL HISTORY: Dyspnea FINDINGS: An AP upright chest radiograph is compared to study dated 08/18/2023 and correlated with chest CT dated 08/16/2023. The heart is enlarged noting atherosclerotic calcification of the thoracic aorta. There is pulmonary vascular congestion and mild interstitial edema. There are right larger than left pleural effusions with dependent consolidation. No pneumothorax is seen. The skeletal structures are osteopenic. The bony thorax is grossly intact. IMPRESSION: 1. Cardiomegaly with evidence of congestive failure. 2. Right larger than left pleural effusions with dependent consolidation. ACT 112: Negative or not required by law. Electronically signed by: Albin Dior M.D. 12/23/2023 3:30 PM Abdomen/Pelvis CT 12/23/23 16:55 CT SCAN OF THE ABDOMEN AND PELVIS WITHOUT IV CONTRAST CLINICAL HISTORY: Acute renal insufficiency COMPARISON STUDY: Abdominal CT dated 01/18/2023. TECHNIQUE: CT scan of the abdomen and pelvis is performed from the lung bases to the proximal femora. Images are reviewed in the axial, sagittal, and coronal planes. IV contrast was not administered for this examination. A dose lowering technique was utilized adhering to the principles of ALARA. The examination is degraded by motion artifact, as well as by streak artifact from the arms which could not be elevated above the abdomen. There is also streak artifact from the body wall abutting the CT gantry. CT DOSE: 1356.97 mGy.cm FINDINGS: Lung bases: The heart is enlarged and without pericardial effusion. The coronary arteries and mitral annulus are densely calcified. Intralobular septal thickening suggests fluid overload/congestive change. There are moderate pleural effusions with dependent consolidation. Liver: The unenhanced liver is top normal in size and normal in contour. Attenuation appears increased which can be seen with iron overload or possibly amiodarone therapy. There is no intrahepatic biliary ductal dilatation. Gallbladder: Surgically absent noting clips in the gallbladder fossa. Spleen: Normal in size and attenuation. There are calcified splenic granulomas. Pancreas: The unenhanced pancreas is moderately atrophic and grossly unremarkable. Adrenal glands: Unremarkable. Kidneys: The unenhanced kidneys demonstrate cortical atrophy and are without hydronephrosis. There are renovascular calcifications. No renal calculi are identified and no ureteral stone is seen. There is no evidence of contour deforming renal mass lesion. There is bilateral perinephric stranding and trace fluid. Abdominal vasculature: The abdominal aorta is normal in course and caliber noting advanced atherosclerotic calcification. Stents are suggested in the superficial femoral arteries. Bowel: No bowel obstruction is seen. The appendix is well-visualized and normal. Peritoneum: There is no intraperitoneal free air or abdominal ascites. Lymphadenopathy: None. Pelvic viscera: The bladder, uterus, and adnexa are normal as visualized. Skeletal structures: The skeletal structures are osteopenic. There is moderate lumbosacral spondylosis. Sclerotic change is noted in the sacroiliac joints. No lytic or blastic lesions are seen. Soft tissues: There is anasarca of the body wall. IMPRESSION: 1. The kidneys demonstrate cortical atrophy and are without hydronephrosis. 2. There is nonspecific bilateral perinephric stranding and trace perinephric fluid. This could be related to acute renal insufficiency. Correlate with clinical findings and urinalysis. 3. Cardiomegaly with evidence of fluid overload/congestive change. 4. Moderate pleural effusions with dependent consolidation. 5. Anasarca of the body wall. 6. Additional findings as above. ACT 112: Negative or not required by law. Electronically signed by: Albin Dior M.D. 12/23/2023 5:33 PM PG Care Time/CCT Total # of Minutes Spent Total Time Spent with Patient: Total time spent is greater than 50% in coordination of care (as documented) at patient's floor/unit and/or counseling patient: Coding Level of Care Code 16289 IN/OBS CONSULT LVL 5,80M Diagnoses ELROY (acute kidney injury) N17.9 Chronic kidney disease, stage V N18.5 Chronic heart failure with preserved ejection fraction (HFpEF) I50.32
[2023-12-24] MEDS ORDERED: BUMETANIDE 2 MG in SYRINGE 0 ML IV SCH (09:00)
[2023-12-24] MEDS ORDERED: BUMETANIDE 3 MG in SYRINGE 0 ML IV SCH (09:00)
[2023-12-24] MEDS: MAGNESIUM OXIDE 400 MG TAB PO SCH (10:17)
[2023-12-24] MEDS: ROSUVASTATIN CALCIUM 20 MG TAB PO SCH (10:17)
[2023-12-24] MEDS: FERROUS SULFATE 325 MG TAB PO SCH (10:17)
--- NOTE | 2023-12-24 10:45 | Hospitalist Progress Note ---
Date of Service December 24, 2023 Assessment & Plan (1) (HFpEF) heart failure with preserved ejection fraction: Plan: Acute on chronic congestive heart failure with preserved ejection fraction: CXR with cardiomegaly and evidence of congestive failure, About 10 pound weight gain BNP Over 400 Last echo on 01/19/2023 revealed LVEF at 60-65% Increase Bumex 1 mg p.o. BID --> (total 4mg IV given on admission) Bumex 3mg IV BID Daily weights Strict I&O Monitoring Heart Healthy, Low sodium diet (1500mL fluids restriction) (2) Hypoxia: Plan: SOB at rest and orthopnea that began on 12/20 Patient's SpO2 was 81% at her PCPs office Not normally on supplemental oxygen at baseline Secondary to pulmonary edema from congestive heart failure And hypovolemia from renal failure Continue diuresis Continue supplemental oxygen, wean as tolerated (3) Acute kidney injury superimposed on chronic kidney disease: Plan: Renal failure secondary to nephropathy Patient was on dialysis at some point but is following renal improvement she was taken off. Now presents with worsening renal function BUN 61, creatinine 5.21 (baseline around 3.50), and EGFR 8.[address] A/P without contrast ordered to assess for obstruction Nephrology consulted in the event she would need temporary dialysis (4) Diabetes mellitus type 2 with complications: Plan: Last A1c at 7.0% on 09/18/2023 SSI with target BSG range 110-140mg/dL, CF 50, carb ratio 15 T2DM diet BSG ACHS Adjust regimen as needed AM A1c (5) Recurrent pleural effusion on right: Plan: CXR with right larger than left pleural effusion; recurrent Bumex (as above) If refractory to diuresis, can consider reaching out to pulmonology for potential thoracentesis (6) Sleep apnea: Plan: Not currently on CPAP (7) Hypervolemia: (8) Hypervolemia associated with renal insufficiency: (9) Stage 5 chronic kidney disease not on chronic dialysis: (10) Essential hypertension: Plan Disposition: Continue hospitalization Full code Heart healthy, T2DM, low-sodium diet (1500 mL fluid restriction) VTE PPx: Heparin 5000u SQ q12h Admission and Anticipated Discharge Date Admission Date: December 23, 2023 Subjective Patient seen and examined, still short of breath currently on oxygen but says she obtained a little bit of relief. Review of Systems Review of Systems: All systems reviewed are negative, apart from the ones contained in the history. Physical Exam Physical Exam: The patient is awake, alert and oriented 3, well developed and well nourished, normocephalic and atraumatic, lying in bed and in no acute distress. HEENT--PERRL, EOMI, mucous membranes and oropharynx mildly dry Neck--supple. No JVD. No bruits. Thyroid normal, trachea midline, no adenopathy. Heart--normal S1 and S2. No murmurs, rubs or gallops. Lungs--Reduced air entry to auscultation. Abdomen--normal bowel sounds and soft. Extremities--no cyanosis or clubbing. No edema. Dermatologic--normal skin turgor, normal color, no abnormal lymph nodes, no rash. Neurologic--cranial nerves II through XII grossly intact. Rheumatologic--normal range of motion. Psychiatric--normal affect. Results & Data Results & Data Vital Signs (Past 12 Hours) Vital Signs Temp Pulse Pulse Resp BP BP Pulse Ox 12/24/23 10:38 97.3 F L 56 L 18 178/76 H 98 12/24/23 07:21 97.3 F L 57 L 20 156/76 H 96 12/24/23 02:41 97.7 F 70 20 181/72 H 94 12/24/23 00:36 81 12/24/23 00:20 12/23/23 23:48 98.2 F 83 16 183/96 H 95 O2 Del Method O2 Flow Rate 12/24/23 10:38 Nasal Cannula 3 12/24/23 07:21 Room Air 12/24/23 02:41 Nasal Cannula 4 12/24/23 00:36 12/24/23 00:20 Nasal Cannula 12/23/23 23:48 Nasal Cannula 4 PG Care Time/CCT Total # of Minutes Spent Total Time Spent with Patient: Total time spent is greater than 50% in coordination of care (as documented) at patient's floor/unit and/or counseling patient: Coding Level of Care Code 28387 SUB INP/OBS CARE 2/35MIN Diagnoses (HFpEF) heart failure with preserved ejection fraction I50.30 Hypoxia R09.02 Acute kidney injury superimposed on chronic kidney disease N17.9; N18.9 Diabetes mellitus type 2 with complications E11.8 Recurrent pleural effusion on right J90 Obstructive sleep apnea syndrome G47.33 Sleep apnea type: obstructive Hypervolemia E87.70 Hypervolemia associated with renal insufficiency E87.70; N28.9 Stage 5 chronic kidney disease not on chronic dialysis N18.5 Essential hypertension I10 Time Spent (min) 35 (6) Sleep apnea Sleep apnea type: obstructive Qualified Code(s): G47.33 - Obstructive sleep apnea (adult) (pediatric)
--- NOTE | 2023-12-24 10:56 | Electrocardiogram Report ---
Test Reason : Blood Pressure : / mmHG Vent. Rate : 068 BPM Atrial Rate : 068 BPM P-R Int : 234 ms QRS Dur : 110 ms QT Int : 438 ms P-R-T Axes : 009 -30 -03 degrees QTc Int : 465 ms Sinus rhythm with 1st degree A-V block Left axis deviation Incomplete right bundle branch block Minimal voltage criteria for LVH, may be normal variant Anteroseptal infarct (cited on or before 18-JAN-2023) Abnormal ECG When compared with ECG of 16-AUG-2023 18:29, Questionable change in initial forces of Anterior leads Non-specific change in ST segment in Lateral leads Confirmed by Billy August ([id number]) on 12/24/2023 10:55:52 AM Referred By: Confirmed By:Billy August
[2023-12-25 06:05] LABS: Basophils # (auto) 0.06 K/uL (0.00-0.20); Basophils % (auto) 0.8 %; Eosinophils # (auto) 0.33 K/uL (0.00-0.50); Eosinophils % (auto) 4.2 %; Hemoglobin 8.7 g/dl (12.0-16.0); Immature Granulocytes # (auto) 0.07 K/uL (0.01-0.20); Immature Granulocytes % (auto) 0.9 %; Lymphocytes # (auto) 1.52 K/uL (1.20-3.40); Lymphocytes % (auto) 19.2 %; Mean Corpuscular Hemoglobin 28.1 pg (25.0-34.0); Mean Corpuscular Hgb Conc 31.1 g/dL (32.0-36.0); Mean Corpuscular Volume 90.3 fL (80.0-100.0); Mean Platelet Volume 9.8 fL (9.4-12.4); Monocytes # (auto) 0.76 K/uL (0.11-0.59); Monocytes % (auto) 9.6 %; Neutrophils # (auto) 5.16 K/uL (1.40-6.50); Neutrophils % (auto) 65.3 %; Platelet Count 224 K/uL (130-400); RDW Coefficient of Variation 15.8 % (11.5-14.5); RDW Standard Deviation 49.6 fL (36.4-46.3)
[2023-12-25 06:29] LABS: BUN Creatinine Ratio 11.8 (10-20); Calcium 8.2 mg/dl (8.6-10.3); Creatinine Clr Calc Pharmacy 11.8 ml/min; Est GFR (African American) 8.6 ml/min; Est GFR (Non-African American) 7.4 ml/min; Potassium 4.2 mmol/L (3.5-5.1)
--- NOTE | 2023-12-25 07:45 | XRay Report ---
XR chest 1V portable CLINICAL HISTORY: CHF TECHNIQUE: Single frontal radiograph of the chest was obtained. Comparison: Comparison is made to chest radiograph 12/23/2023 FINDINGS: Exam is limited by underpenetration. Cardiomegaly is noted. The lungs are clear. Small bilateral pleu ral effusions are seen. IMPRESSION: Small bilateral pleural effusions, similar to prior exam. Previously noted pulmonary vascular congest ion is less conspicuous on today's exam. ACT 112: Negative or not required by law. Electronically signed by: Anthony Odell M.D. 12/25/2023 7:44 AM
--- NOTE | 2023-12-25 08:17 | Nephrology Progress Note ---
Date of Service December 25, 2023 Assessment & Plan (1) ELROY (acute kidney injury): Plan: * ELROY likely on the basis of CHF and impaired renal perfusion * Kidney function is relatively stable. Electrolyte balance is acceptable at this time. No acute indication for HD today * Vascular surgery is OOT this week, unable to place TCC (2) Chronic kidney disease, stage V: Plan: * ESKD due to biopsy proven DKD. Baseline Cr 3.5 * Required IHD 10/30-01/30 following [place] kidney biopsy due to perinephric hematoma * Declined AVF unless HD becomes permanent. Reviewed benefits of early creation of AVF with patient today (3) Chronic heart failure with preserved ejection fraction (HFpEF): Plan: * Recurrent pleural effusions: Required R thoracentesis 08/05/23 for 1 L (transudative), 09/01/23 R thoracentesis for 2.2 L volume removal * Now presents w/ mild CHF and R>L effusions after reducing loop diuretic dosing * Continue Bumex 3 mg IV BID * Monitor UO, BMP, pulmonary exam * Radiology to assess for possible thoracentesis * Once O2 requirements have improved, will reduce diuretic Admission and Anticipated Discharge Date Admission Date: December 23, 2023 Subjective Ms. Simpson was evaluated in her hospital room this morning. She diuresed 1100 cc since admission. Breathing is subjectively improved but she still requires O2 at 3 L/min NC Review of Systems Constitutional: no fever Eyes: no worsening vision Ear, Nose, Mouth, Throat: no problem reported Respiratory: + dyspnea; no cough, no hemoptysis and n o wheezing Cardiovascular: no chest pain Gastrointestinal: no nausea, no vomiting and no diarrhea/loose stools Genitourinary: no dysuria and no hematuria Musculoskeletal: no back pain Integumentary: no rash Neurologic: no problem reported Physical Exam Constitutional: not in distress Eyes: PERRL, conjunctivae normal, anicteric sclerae ENMT: external ear and nose normal, oropharynx normal Neck: trachea midline, no thyromegaly Respiratory: Auscultation: lungs clear to auscultation bilaterally Cardiovascular: Rate/Rhythm: + bradycardic Gastrointestinal (Abdomen): normal bowel sounds, soft, nontender, no hepatosplenomegaly Skin: no rashes, warm and dry Neurologic: Speech / Cognition: normal speech and normal cognition Psychiatric: Affect: euthymic affect Results & Data Vital Signs (Past 12 Hours) Vital Signs Temp Pulse Pulse Resp BP Pulse Ox Pulse Ox 12/25/23 07:13 36.3 C L 61 18 181/76 H 95 12/25/23 03:21 36.5 C 53 L 16 172/74 H 96 12/24/23 23:06 36.4 C L 54 L 16 165/68 H 97 12/24/23 22:50 54 L 12/24/23 22:00 97 O2 Del Method O2 Del Method O2 Flow Rate O2 Flow Rate 12/25/23 07:13 Nasal Cannula 3 12/25/23 03:21 Nasal Cannula 3 12/24/23 23:06 Nasal Cannula 3 12/24/23 22:50 12/24/23 22:00 Nasal Cannula 3 Laboratory Results Laboratory Results - last 24 hr 12/24/23 12/24/23 12/24/23 11:28 16:09 20:23 WBC RBC Hgb Hct MCV MCH MCHC RDW Std Deviation RDW Coeff of Adelina Plt Count MPV Immature Gran % (Auto) Neut % (Auto) Lymph % (Auto) [place] % (Auto) Eos % (Auto) Baso % (Auto) Neut # (Auto) Lymph # (Auto) [place] # (Auto) Eos # (Auto) Baso # (Auto) Immature Gran # (Auto) Sodium Potassium Chloride Carbon Dioxide Anion Gap BUN Creatinine Est Cr Clr Drug Dosing Est GFR ( Amer) Est GFR (Non-Af Amer) BUN/Creatinine Ratio Glucose POC Glucose 107 H 145 H 142 H Calcium 12/25/23 12/25/23 05:33 07:12 WBC 7.90 RBC 3.10 L Hgb 8.7 L Hct 28.0 L MCV 90.3 MCH 28.1 MCHC 31.1 L RDW Std Deviation 49.6 H RDW Coeff of Adelina 15.8 H Plt Count 224 MPV 9.8 Immature Gran % (Auto) 0.9 Neut % (Auto) 65.3 Lymph % (Auto) 19.2 [place] % (Auto) 9.6 Eos % (Auto) 4.2 Baso % (Auto) 0.8 Neut # (Auto) 5.16 Lymph # (Auto) 1.52 [place] # (Auto) 0.76 H Eos # (Auto) 0.33 Baso # (Auto) 0.06 Immature Gran # (Auto) 0.07 Sodium 136 Potassium 4.2 Chloride 105 Carbon Dioxide 25 Anion Gap 6 BUN 66 H Creatinine 5.58 H* Est Cr Clr Drug Dosing 11.8 Est GFR ( Amer) 8.6 Est GFR (Non-Af Amer) 7.4 BUN/Creatinine Ratio 11.8 Glucose 109 H POC Glucose 134 H Calcium 8.2 L Diagnostic Findings 12/25/23 CXR: Exam is limited by underpenetration. Cardiomegaly is noted. The lungs are clear. Small bilateral pleural effusions are seen. PG Care Time/CCT Total # of Minutes Spent Total Time Spent with Patient: Total time spent is greater than 50% in coordination of care (as documented) at patient's floor/unit and/or counseling patient: Coding Level of Care Code 58638 SUB INP/OBS CARE 3/50MIN Diagnoses ELROY (acute kidney injury) N17.9 Chronic kidney disease, stage V N18.5 Chronic heart failure with preserved ejection fraction (HFpEF) I50.32
--- NOTE | 2023-12-25 09:30 | Hospitalist Progress Note ---
Date of Service December 25, 2023 Assessment & Plan (1) Hypervolemia associated with renal insufficiency: Plan: CXR with cardiomegaly and evidence of congestive failure BNP above 400 Last echo on 01/19/2023 revealed LVEF at 60-65% Increase Bumex 1 mg p.o. BID --> (total 4mg IV given on admission) Bumex 3mg IV BID Daily weights Making good urine, about 1.1 L in negative fluid balance in the past 24 hours Strict I&O Monitoring Heart Healthy, Low sodium diet (1500mL fluids restriction) (2) Hypoxia: Plan: Secondary to fluid overload and congestive heart failure Following diuresis some improvement. Wean as tolerated (3) Pleural effusion, right: Plan: Moderate right pleural effusion due to congestive heart failure fluid overload IR consulted for thoracentesis today (4) Acute kidney injury superimposed on chronic kidney disease: Plan: Admitted with worsening ELROY on CKD Patient was previously on dialysis, but was taken off 1 year ago Live catheter Per nephrology, no need for acute dialysis at this time Continue to monitor (5) Diabetes mellitus type 2 with complications: Plan: Last A1c at 7.0% on 09/18/2023 SSI with target BSG range 110-140mg/dL, CF 50, carb ratio 15 T2DM diet BSG ACHS Adjust regimen as needed AM A1c (6) Sleep apnea: Plan: Not currently on CPAP (7) Recurrent pleural effusion on right: Plan: Plan is for thoracentesis (8) Hypervolemia: (9) Stage 5 chronic kidney disease not on chronic dialysis: Plan Disposition: Hopefully discharge in next 48 hours, plan is to wean her off oxygen, get her well enough and to follow nephrology outpatient for reestablishment of dialysis if necessary. Full code Heart healthy, T2DM, low-sodium diet (1500 mL fluid restriction) VTE PPx: Heparin 5000u SQ q12h Admission and Anticipated Discharge Date Admission Date: December 23, 2023 Subjective Patient seen and examined, feels overall better although still on 3 L of oxygen through nasal cannula Review of Systems Review of Systems: All systems reviewed are negative, apart from the ones contained in the history. Physical Exam Physical Exam: The patient is awake, alert and oriented 3, well developed and well nourished, normocephalic and atraumatic, lying in bed and in no acute distress. HEENT--PERRL, EOMI, mucous membranes and oropharynx mildly dry Neck--supple. No JVD. No bruits. Thyroid normal, trachea midline, no adenopathy. Heart--normal S1 and S2. No murmurs, rubs or gallops. Lungs--clear bilaterally, no respiratory distress, no accessory muscle use. Abdomen--normal bowel sounds and soft. Extremities--no cyanosis or clubbing. No edema. Dermatologic--normal skin turgor, normal color, no abnormal lymph nodes, no rash. Neurologic--cranial nerves II through XII grossly intact. Rheumatologic--normal range of motion. Psychiatric--normal affect. Results & Data Results & Data Vital Signs (Past 12 Hours) Vital Signs Temp Pulse Pulse Resp BP Pulse Ox Pulse Ox 12/25/23 08:58 12/25/23 08:46 59 L 12/25/23 07:13 97.3 F L 61 18 181/76 H 95 12/25/23 03:21 97.7 F 53 L 16 172/74 H 96 12/24/23 23:06 97.5 F L 54 L 16 165/68 H 97 12/24/23 22:50 54 L 12/24/23 22:00 97 O2 Del Method O2 Del Method O2 Flow Rate O2 Flow Rate 12/25/23 08:58 Nasal Cannula 2 12/25/23 08:46 12/25/23 07:13 Nasal Cannula 3 12/25/23 03:21 Nasal Cannula 3 12/24/23 23:06 Nasal Cannula 3 12/24/23 22:50 12/24/23 22:00 Nasal Cannula 3 PG Care Time/CCT Total # of Minutes Spent Total Time Spent with Patient: Total time spent is greater than 50% in coordination of care (as documented) at patient's floor/unit and/or counseling patient: Coding Level of Care Code 90020 SUB INP/OBS CARE 2/35MIN Diagnoses Hypervolemia associated with renal insufficiency E87.70; N28.9 Hypoxia R09.02 Pleural effusion, right J90 Acute kidney injury superimposed on chronic kidney disease N17.9; N18.9 Diabetes mellitus type 2 with complications E11.8 Obstructive sleep apnea syndrome G47.33 Sleep apnea type: obstructive Recurrent pleural effusion on right J90 Hypervolemia E87.70 Stage 5 chronic kidney disease not on chronic dialysis N18.5 Time Spent (min) 35 (6) Sleep apnea Sleep apnea type: obstructive Qualified Code(s): G47.33 - Obstructive sleep apnea (adult) (pediatric)
--- NOTE | 2023-12-25 10:21 | XRay Report ---
SINGLE VIEW CHEST CLINICAL HISTORY: Status post right thoracentesis FINDINGS: An AP upright chest radiograph is compared to study dated 12/25/2023 and correlated with [facility] [address] CT dated 08/16/2023. The heart is enlarged. There is pulmonary vascular congestion. There is a left pleural effusion with bibasilar consolidation. A right pleural effusion has significantly decreased i n size. There is ex vacuo. A mild/moderate pneumothorax is seen at the right lung base. The trachea i s midline. The skeletal structures are osteopenic. The bony thorax is grossly intact. IMPRESSION: 1. There is a mild to moderate pneumothorax at the right lung base identified status post thoracentes is. This may represent an extra vacuo pneumothorax. Clinical correlation and radiographic follow-up w ill be required. 2. A right pleural effusion has also completely resolved. 3. Small left pleural effusion with left basilar consolidation. 4. Cardiomegaly with pulmonary vascular congestion ACT 112: Negative or not required by law. Electronically signed by: Albin Dior M.D. 12/25/2023 10:19 AM
--- NOTE | 2023-12-25 11:05 | XRay Report ---
XR chest 1V portable CLINICAL HISTORY: f/u rt thoracentesis/ ptx with stat read TECHNIQUE: Single frontal radiograph of the chest was obtained. Comparison: Comparison is made to chest radiograph 12/21/2023 FINDINGS: No lines and tubes are seen. Cardiomegaly is noted. The aortic arch is calcified. Minimal left basila r airspace opacity compatible with atelectasis. Blunting of the left costophrenic angle compatible wi th a small left pleural effusion. Right-sided pneumothorax is again seen, slightly decreased in size. IMPRESSION: 1. Interval slight decrease in size of right pneumothorax status post thoracentesis. 2. Small left pleural effusion. 3. Stable cardiomegaly. ACT 112: Negative or not required by law. Electronically signed by: Anthony Odell M.D. 12/25/2023 11:02 AM
--- NOTE | 2023-12-25 14:22 | Ultrasound Report ---
ULTRASOUND-GUIDED RIGHT THORACENTESIS CLINICAL HISTORY: Right pleural effusion PROCEDURE: Procedure and risks were explained. Informed consent was obtained. A final timeout was com pleted. The right posterior thorax was prepped and draped in sterile fashion. 1% lidocaine was utiliz ed for skin anesthesia. Utilizing ultrasound guidance, a 5 [place] safety centesis catheter was advanced into the right pleura l effusion. Ultrasound images were obtained. A total of 1200 mL yellow-colored pleural fluid was joaquim adela and discarded. The catheter was removed and Band-Aid applied. The patient tolerated the procedure well. Postprocedure chest x-ray demonstrated a small ex vacuo pneumothorax at the right lung base. A n additional chest x-ray will be obtained in one hour. Vital signs will be monitored postprocedure. IMPRESSION: Ultrasound-guided right thoracentesis as above. Small right ex vacuo pneumothorax as abov e. Performed, dictated, and signed by Gasper Evans PA-C; to be co-signed by Dr. Anthony Odell. Electronically signed by: Anthony Odell M.D. 12/26/2023 12:44 PM
[2023-12-25] MEDS: BUMETANIDE 1 MG in SYRINGE 0 ML IV SCH (20:18)
[2023-12-26 06:26] LABS: Basophils # (auto) 0.04 K/uL (0.00-0.20); Basophils % (auto) 0.5 %; Eosinophils # (auto) 0.27 K/uL (0.00-0.50); Eosinophils % (auto) 3.1 %; Hemoglobin 8.7 g/dl (12.0-16.0); Immature Granulocytes # (auto) 0.07 K/uL (0.01-0.20); Immature Granulocytes % (auto) 0.8 %; Lymphocytes # (auto) 1.33 K/uL (1.20-3.40); Lymphocytes % (auto) 15.5 %; Mean Corpuscular Hemoglobin 28.1 pg (25.0-34.0); Mean Corpuscular Hgb Conc 31.1 g/dL (32.0-36.0); Mean Corpuscular Volume 90.3 fL (80.0-100.0); Mean Platelet Volume 9.6 fL (9.4-12.4); Monocytes # (auto) 0.71 K/uL (0.11-0.59); Monocytes % (auto) 8.3 %; Neutrophils # (auto) 6.16 K/uL (1.40-6.50); Neutrophils % (auto) 71.8 %; Platelet Count 226 K/uL (130-400); RDW Coefficient of Variation 15.9 % (11.5-14.5); RDW Standard Deviation 50.4 fL (36.4-46.3); White Blood Count 8.58 K/ul (4.8-10.8)
[2023-12-26 06:49] LABS: BUN Creatinine Ratio 13.3 (10-20); Calcium 8.2 mg/dl (8.6-10.3); Creatinine Clr Calc Pharmacy 11.4 ml/min; Est GFR (African American) 8.3 ml/min; Est GFR (Non-African American) 7.1 ml/min; Potassium 4.6 mmol/L (3.5-5.1)
--- NOTE | 2023-12-26 08:55 | Nephrology Progress Note ---
Date of Service December 26, 2023 Assessment & Plan (1) ELROY (acute kidney injury): Plan: * ELROY likely on the basis of CHF and impaired renal perfusion * Creatinine has stabilized at 5.5-5.7. Electrolyte balance is acceptable. No acute indication for HD today * Vascular surgery is OOT this week, unable to place TCC. If patient can be weaned from O2, she can return home with follow up by Dr. Mei early next week ( ) * Monitor BMP, I&O. Will have Live catheter removed since patient reports that she can use BSC/BR (2) Chronic kidney disease, stage V: Plan: * ESKD due to biopsy proven DKD. Baseline Cr 3.5 * Required IHD 10/30-01/30 following [place] kidney biopsy due to perinephric hematoma * Declined AVF unless HD becomes permanent. Reviewed benefits of early creation of AVF with patient today (3) Chronic heart failure with preserved ejection fraction (HFpEF): Plan: * Recurrent pleural effusions: Required R thoracentesis 08/05/23 for 1 L (transudative), 09/01/23 R thoracentesis for 2.2 L volume removal * s/p R thoracentesis 12/25/23 for 1.2 L volume removal * Bumex has been changed back to outpatient dose of 1 mg BID Admission and Anticipated Discharge Date Admission Date: December 23, 2023 Subjective Ms. Simpson was evaluated in her hospital room this morning. She diuresed 2082 cc since admission. Breathing is subjectively improved but she still requires O2 at 1 L/min NC Review of Systems Constitutional: no fever Eyes: no worsening vision Ear, Nose, Mouth, Throat: no problem reported Respiratory: no dyspnea Cardiovascular: no chest pain Gastrointestinal: no nausea, no vomiting and no diarrhea/loose stools Genitourinary: no dysuria and no hematuria Musculoskeletal: no back pain Integumentary: no rash Neurologic: no problem reported Physical Exam Constitutional: not in distress Eyes: PERRL, conjunctivae normal, anicteric sclerae ENMT: external ear and nose normal, oropharynx normal Neck: trachea midline, no thyromegaly Respiratory: Auscultation: lungs clear to auscultation bilaterally and + rales Cardiovascular: Rate/Rhythm: + bradycardic Gastrointestinal (Abdomen): normal bowel sounds, soft, nontender, no hepa tosplenomegaly Skin: no rashes, warm and dry Neurologic: Speech / Cognition: normal speech and normal cognition Psychiatric: Affect: euthymic affect Results & Data Vital Signs (Past 12 Hours) Vital Signs Temp Pulse Pulse Resp BP Pulse Ox Pulse Ox 12/26/23 07:57 12/26/23 07:11 36.6 C 59 L 19 160/74 H 96 12/26/23 03:16 36.8 C 60 16 153/71 H 97 12/25/23 22:48 37.2 C 62 18 167/78 H 97 12/25/23 22:00 96 12/25/23 21:55 62 O2 Del Method O2 Del Method O2 Flow Rate O2 Flow Rate 12/26/23 07:57 Nasal Cannula 1 12/26/23 07:11 Nasal Cannula 1 12/26/23 03:16 Nasal Cannula 1 12/25/23 22:48 Nasal Cannula 1 12/25/23 22:00 Nasal Cannula 1 12/25/23 21:55 Laboratory Results Laboratory Results - last 24 hr 12/25/23 12/25/23 12/25/23 11:13 16:13 20:29 WBC RBC Hgb Hct MCV MCH MCHC RDW Std Deviation RDW Coeff of Adelina Plt Count MPV Immature Gran % (Auto) Neut % (Auto) Lymph % (Auto) [place] % (Auto) Eos % (Auto) Baso % (Auto) Neut # (Auto) Lymph # (Auto) [place] # (Auto) Eos # (Auto) Baso # (Auto) Immature Gran # (Auto) Sodium Potassium Chloride Carbon Dioxide Anion Gap BUN Creatinine Est Cr Clr Drug Dosing Est GFR ( Amer) Est GFR (Non-Af Amer) BUN/Creatinine Ratio Glucose POC Glucose 198 H 120 H 177 H Calcium 12/26/23 12/26/23 05:26 07:10 WBC 8.58 RBC 3.10 L Hgb 8.7 L Hct 28.0 L MCV 90.3 MCH 28.1 MCHC 31.1 L RDW Std Deviation 50.4 H RDW Coeff of Adelina 15.9 H Plt Count 226 MPV 9.6 Immature Gran % (Auto) 0.8 Neut % (Auto) 71.8 Lymph % (Auto) 15.5 [place] % (Auto) 8.3 Eos % (Auto) 3.1 Baso % (Auto) 0.5 Neut # (Auto) 6.16 Lymph # (Auto) 1.33 [place] # (Auto) 0.71 H Eos # (Auto) 0.27 Baso # (Auto) 0.04 Immature Gran # (Auto) 0.07 Sodium 139 Potassium 4.6 Chloride 107 Carbon Dioxide 24 Anion Gap 8 BUN 77 H Creatinine 5.77 H* Est Cr Clr Drug Dosing 11.4 Est GFR ( Amer) 8.3 Est GFR (Non-Af Amer) 7.1 BUN/Creatinine Ratio 13.3 Glucose 109 H POC Glucose 115 H Calcium 8.2 L PG Care Time/CCT Total # of Minutes Spent Total Time Spent with Patient: Total time spent is greater than 50% in coordination of care (as documented) at patient's floor/unit and/or counseling patient: Coding Level of Care Code 11693 SUB INP/OBS CARE 3/50MIN Diagnoses ELROY (acute kidney injury) N17.9 Chronic kidney disease, stage V N18.5 Chronic heart failure with preserved ejection fraction (HFpEF) I50.32
--- NOTE | 2023-12-26 15:01 | Hospitalist Progress Note ---
Date of Service December 26, 2023 Assessment & Plan (1) Hypervolemia associated with renal insufficiency: Plan: CXR with cardiomegaly and evidence of congestive failure BNP above 400 Last echo on 01/19/2023 revealed LVEF at 60-65% Patient had been receiving Bumex IV 1 mg twice daily Switch to p.o. Bumex 1 mg twice daily. This is her home dose. Daily weights Making good urine Discontinue Live catheter Strict I&O Monitoring Heart Healthy, Low sodium diet (1500mL fluids restriction) (2) Hypoxia: Plan: Secondary to fluid overload and congestive heart failure Following diuresis some improvement. Wean as tolerated (3) Pleural effusion, right: Plan: Moderate right pleural effusion due to congestive heart failure fluid overload Patient had thoracentesis done on 12/24, complicated by a small pneumothorax Pneumothorax improved with repeat chest x-ray on 12/24 Patient is not hypoxic today. Monitor (4) Acute kidney injury superimposed on chronic kidney disease: Plan: Admitted with worsening ELROY on CKD Patient was previously on dialysis, but was taken off 1 year ago Remove Live catheter Per nephrology, no need for acute dialysis at this time Continue to monitor (5) Diabetes mellitus type 2 with complications: Plan: Last A1c at 7.0% on 09/18/2023 SSI with target BSG range 110-140mg/dL, CF 50, carb ratio 15 T2DM diet BSG ACHS Adjust regimen as needed AM A1c (6) Sleep apnea: Plan: Not currently on CPAP (7) Recurrent pleural effusion on right: Plan: Thoracentesis completed 12/24 (8) Hypervolemia: (9) Stage 5 chronic kidney disease not on chronic dialysis: Plan Disposition: Hopefully discharge in next 48 hours, plan is to wean her off oxygen, get her well enough and to follow nephrology outpatient for reestablishment of dialysis if necessary. Full code Heart healthy, T2DM, low-sodium diet (1500 mL fluid restriction) VTE PPx: Heparin 5000u SQ q12h Admission and Anticipated Discharge Date Admission Date: December 23, 2023 Subjective Patient feels well. Denies chest pain or shortness of breath. Review of Systems Review of Systems: All systems reviewed & are unremarkable except as noted in Subjective Physical Exam Physical Exam: General: Awake, conversant Heart: S1, S2/regular rate and rhythm, no murmur rubs or gallops Lungs: Clear to auscultation bilaterally. Normal effort Abdomen: Soft/nontender/nondistended. No hepatosplenomegaly Extremities: No clubbing/cyanosis. 1+ pitting edema. Right BKA Behavior: Appropriate, cooperative Results & Data Results & Data Vital Signs (Past 12 Hours) Vital Signs Temp Pulse Resp BP Pulse Ox O2 Del Method O2 Flow Rate 12/26/23 14:34 36.7 C 60 17 156/66 H 94 Room Air 12/26/23 10:51 36.7 C 59 L 17 155/64 H 97 Nasal Cannula 1 12/26/23 07:57 Nasal Cannula 1 12/26/23 07:11 36.6 C 59 L 19 160/74 H 96 Nasal Cannula 1 12/26/23 03:16 36.8 C 60 16 153/71 H 97 Nasal Cannula 1 Laboratory Results Abnormal lab results 12/25/23 12/25/23 12/26/23 Range/Units 16:13 20:29 05:26 RBC 3.10 L (4.20-5.40) M/uL Hgb 8.7 L (12.0-16.0) g/dl Hct 28.0 L (37.0-47.0) % MCHC 31.1 L (32.0-36.0) g/dL RDW Std Deviation 50.4 H (36.4-46.3) fL RDW Coeff of Adelina 15.9 H (11.5-14.5) % [place] # (Auto) 0.71 H (0.11-0.59) K/uL BUN 77 H (6-23) mg/dl Creatinine 5.77 H* (0.6-1.2) mg/dl Glucose 109 H (70-99(Fasting)) mg/dl POC Glucose 120 H 177 H (70-99) mg/dl Calcium 8.2 L (8.6-10.3) mg/dl 12/26/23 12/26/23 Range/Units 07:10 11:16 RBC (4.20-5.40) M/uL Hgb (12.0-16.0) g/dl Hct (37.0-47.0) % MCHC (32.0-36.0) g/dL RDW Std Deviation (36.4-46.3) fL RDW Coeff of Adelina (11.5-14.5) % [place] # (Auto) (0.11-0.59) K/uL BUN (6-23) mg/dl Creatinine (0.6-1.2) mg/dl Glucose (70-99(Fasting)) mg/dl POC Glucose 115 H 190 H (70-99) mg/dl Calcium (8.6-10.3) mg/dl PG Care Time/CCT Total # of Minutes Spent Total Time Spent with Patient: Total time spent is greater than 50% in coordination of care (as documented) at patient's floor/unit and/or counseling patient: Coding Level of Care Code 23731 SUB INP/OBS CARE 2/35MIN Diagnoses Hypervolemia associated with renal insufficiency E87.70; N28.9 Hypoxia R09.02 Pleural effusion, right J90 Acute kidney injury superimposed on chronic kidney disease N17.9; N18.9 Diabetes mellitus type 2 with complications E11.8 Obstructive sleep apnea syndrome G47.33 Sleep apnea type: obstructive Recurrent pleural effusion on right J90 Hypervolemia E87.70 Stage 5 chronic kidney disease not on chronic dialysis N18.5 (6) Sleep apnea Sleep apnea type: obstructive Qualified Code(s): G47.33 - Obstructive sleep apnea (adult) (pediatric)
[2023-12-26] MEDS: BUMETANIDE 1 MG TAB PO SCH (17:04)
--- NOTE | 2023-12-27 13:34 | Nephrology Progress Note ---
Date of Service December 27, 2023 Assessment & Plan (1) ELROY (acute kidney injury): Plan: * ELROY likely on the basis of CHF and impaired renal perfusion * Creatinine has stabilized at 5.5-5.7. Electrolyte balance is acceptable. No acute indication for HD today * Vascular surgery is OOT this week, unable to place TCC. If discharge is planned, please have patient follow up by Dr. Mei early next week ( ) * Monitor BMP, I&O (2) Chronic kidney disease, stage V: Plan: * ESKD due to biopsy proven DKD. Baseline Cr 3.5 * Required IHD 10/30-01/30 following [place] kidney biopsy due to perinephric hematoma * Declined AVF unless HD becomes permanent. Reviewed benefits of early creation of AVF with patient today (3) Chronic heart failure with preserved ejection fraction (HFpEF): Plan: * Recurrent pleural effusions: Required R thoracentesis 08/05/23 for 1 L (transudative), 09/01/23 R thoracentesis for 2.2 L volume removal * s/p R thoracentesis 12/25/23 for 1.2 L volume removal * Bumex has been changed back to outpatient dose of 1 mg BID Admission and Anticipated Discharge Date Admission Date: December 23, 2023 Subjective Ms. Simpson was evaluated in her hospital room this morning. Live catheter has been removed and she has been able to ambulate in the hallway without oxygen. She is anxious to return home and maintain close outpatient Nephrology follow up Review of Systems Constitutional: no fever Eyes: no worsening vision Ear, Nose, Mouth, Throat: no problem reported Respiratory: no dyspnea Cardiovascular: no chest pain Gastrointestinal: no nausea, no vomiting and no diarrhea/loose stools Genitourinary: no dysuria and no hematuria Musculoskeletal: no back pain Integumentary: no rash Neurologic: no problem reported Physical Exam Constitutional: not in distress Eyes: PERRL, conjunctivae normal, anicteric sclerae ENMT: external ear and nose normal, oropharynx normal Neck: trachea midline, no thyromegaly Respiratory: Auscultation: lungs clear to auscultation bilaterally and + rales Cardiovascular: Rate/Rhythm: + bradycardic Gastrointestinal (Abdomen): normal bowel sounds, soft, nontender, no hepatosplenomegaly Skin: no rashes, warm and dry Neurologic: Speech / Cognition: normal speech and normal cognition Psychiatric: Affect: euthymic affect PG Care Time/CCT Total # of Minutes Spent Total Time Spent with Patient: Total time spent is greater than 50% in coordination of care (as documented) at patient's floor/unit and/or counseling patient: Coding Level of Care Code 67322 SUB INP/OBS CARE 3/50MIN Diagnoses ELROY (acute kidney injury) N17.9 Chronic kidney disease, stage V N18.5 Chronic heart failure with preserved ejection fraction (HFpEF) I50.32
--- NOTE | 2023-12-27 14:52 | Discharge Summary ---
Date of Service December 27, 2023 Admission HPI Per Admitting Provider Jeanne is a 63-year-old female with PMH of ESRD on HD, chronic diastolic heart failure, PAD, right BKA, T2DM with complications, sleep apnea, GERD, and Charcot's arthroplasty. She presented for SOB/dyspnea on 12/22. Patient was seen by her PCP and was around 81% on RA. She reports the difficulty breathing started 2 days ago. She endorses both SOB at rest and with exertion. It is worse when she lies flat on her back. No supplemental oxygen at baseline. She does not wear CPAP at night, and reports that she is unable to tolerate it. She took her regular morning medications today; no recent change in medication, and she reports good compliance with taking her Bumex twice daily. However, there was a 3-day stretch last week when she only took Bumex once daily because her prescription did not arrive as scheduled. No sick contacts. Patient does endorse a 5 pound weight gain over the past 2 days (is usually around 238, but was 243 today). No recent change in diet, and patient reports that she does deepthi ch her salt intake. History of recurrent right pleural effusion. Patient follows with Dr. Mei for nephrology; she used to be on dialysis but was taken off dialysis around 1 year ago. Patient denies smoking, tobacco use, and recent alcohol use. Patient is hypertensive at 154/66 and hypoxic at 89% on RA on arrival. ED course: ROS: Patient endorses cold intolerance, dizziness/lightheadedness with walking, SOB with exertion and at rest, orthopnea, dry cough, intermittent constipation/diarrhea, and neuropathy in the arms/legs. Patient denies fever, chills, nightsweats, headache, chest pain, chest palpitations, pleuritic CP, hemoptysis, abdominal pain, N/V, burning with urination, or blood in the urine/stool. Admission Exam Per Admitting Provider General: no acute distress; pleasant affect; non-toxic appearing; well- nourished; cooperative; SpO2 99% on 3L NC HEENT: normocephalic, atraumatic; no scleral icterus; PERRLA w/ EOMs intact; moist mucus membrane; vision and hearing grossly intact Neck: supple; negative JVP; no lymphadenopathy; trachea midline Skin: warm, dry without signs of tenting; no cyanosis; no rashes, bruising, lesions, or erythema noted CV: chest wall NTP; RRR; S1/S2 normal; no murmurs/rubs/gallops; pulses intact and symmetric at radial, DP, and PT Lungs: no acute respiratory distress; symmetrical chest wall expansion; clear breath sounds across all lung erazo w/o adventitious sounds; no wheezing ABD: Soft, NTP; BS present; no rebound/guarding; no distention; suboptimal exam secondary to body habitus MSK: Right BKA; no tics or fasciculations; +1 pitting edema in the left lower extremity, nonerythematous Neuro: A&Ox3; normal mood and affect; fluent speech; no focal deficits; se nsation grossly intact in the LLE Principal Diagnosis Acute on chronic diastolic congestive heart failure with volume overload secondary to acute kidney injury on CKD stage V Discharge Exam General: Awake, conversant Heart: S1, S2/regular rate and rhythm, no murmur rubs or gallops Lungs: Clear to auscultation bilaterally. Normal effort Abdomen: Soft/nontender/nondistended. No hepatosplenomegaly Extremities: No clubbing/cyanosis. 1+ pitting edema. Right BKA Behavior: Appropriate, cooperative Discharge Data Allergies Allergy/AdvReac Type Severity Reaction Status Date / Time daptomycin Allergy Severe rhabdomyoly Verified 12/23/23 11:35 sis amoxicillin Allergy Intermediate HIVES & N/V Verified 12/23/23 11:35 clavulanic acid Allergy Intermediate HIVES & N/V Verified 12/23/23 11:35 vancomycin Allergy Intermediate pruritus Verified 12/23/23 11:35 sulfamethoxazole AdvReac Severe renal Verified 12/23/23 11:35 [From Bactrim] failure trimethoprim [From Bactrim] AdvReac Severe renal Verified 12/23/23 11:35 failure lisinopril AdvReac Intermediate NAUSEA/VOMI Verified 12/23/23 11:35 TING omeprazole AdvReac Intermediate Nausea Verified 12/23/23 11:35 Consultations 12/23/23 16:28 ED Decision to Admit Stat 12/23/23 20:09 Consult Nephrology Routine Ordered Studies 12/23/23 16:55 CT abd pelvis wo con Stat 12/25/23 08:56 IR thoracentesis wo tube US Routine Hospital Course (1) Hypervolemia associated with renal insufficiency: CXR with cardiomegaly and evidence of congestive failure BNP above 400 Last echo on 01/19/2023 revealed LVEF at 60-65% Patient had been receiving Bumex IV 1 mg twice daily Switched to p.o. Bumex 1 mg twice daily. This is her home dose. Making good urine Heart Healthy, Low sodium diet (1500mL fluids restriction) (2) Hypoxia: Secondary to fluid overload and congestive heart failure Following diuresis some improvement. Weaned off of oxygen (3) Pleural effusion, right: Moderate right pleural effusion due to congestive heart failure fluid overload Patient had thoracentesis done on 12/24, complicated by a small pneumothorax Pneumothorax improved with repeat chest x-ray on 12/24 Patient is not hypoxic today. Stable, off of oxygen (4) Acute kidney injury superimposed on chronic kidney disease: Admitted with worsening ELROY on CKD Patient was previously on dialysis, but was taken off 1 year ago Removed Live catheter Per nephrology, no need for acute dialysis at this time Continue to monitor Follow-up with primary casing cleaner outpatient Cleared for discharge by nephrology (5) Diabetes mellitus type 2 with complications: Last A1c at 7.0% on 09/18/2023 SSI with target BSG range 110-140mg/dL, CF 50, carb ratio 15 T2DM diet BSG ACHS Adjust regimen as needed AM A1c (6) Sleep apnea: Not currently on CPAP (7) Recurrent pleural effusion on right: Thoracentesis completed 12/24 (8) Hypervolemia: (9) Stage 5 chronic kidney disease not on chronic dialysis: Plan Discharge to home today Total Time Total Time Spent Total Time Spent (In Minutes): 35 Discharge Plan Discharge Items Reason For Visit: SOB/DYSPNEA Condition on Discharge: Serious Follow-up/Referrals: Andie Rodrigues DO [Primary Care Provider] - Medications and DC Order Prescriptions: No Action (DME) Prosthetic Socket replacement See Rx Instructions .Route .MEDSUPPLY Qty: 1 0RF Rx Instructions: As directed. Patient states she is being fitted for a new prosthetic. (DME) Accu-Chek Guide L1-L2 Ctrl Nancy Solution See Rx Instructions .Route Qty: 1 0RF Rx Instructions: As directed trazodone 50 mg tablet 25 mg PO HS Qty: 45 3RF metoprolol tartrate 25 mg tablet 25 mg PO BID Qty: 180 1RF bumetanide 1 mg tablet 1 mg PO BID Qty: 60 5RF amlodipine 10 mg tablet 5 mg PO QAM Qty: 45 1RF omeprazole 20 mg capsule,delayed release(DR/EC) 20 mg PO DAILY 90 Days Qty: 90 1RF rosuvastatin 40 mg tablet 40 mg PO QAM Qty: 90 1RF tramadol 50 mg tablet 50 mg PO Q8H PRN (Reason: pain) Qty: 90 0RF ergocalciferol (vitamin D2) 1,250 mcg (50,000 unit) capsule 50,000 unit PO WEEKLY Qty: 12 0RF Rx Instructions: Saturday polyethylene glycol 3350 [Miralax] 17 gram/dose powder 17 g PO DAILY PRN (Reason: Constipation) loperamide [Imodium A-D] 2 mg capsule 2 mg PO Q6H PRN (Reason: Diarrhea) aspirin [Adult Low Dose Aspirin] 81 mg tablet,delayed release (DR/EC) 81 mg PO DAILY docusate sodium [Stool Softener] 100 mg capsule 100 mg PO DAILY PRN (Reason: Constipation) triamcinolone acetonide 0.5 % cream 1 applic topical BID PRN (Reason: skin irritation) Qty: 60 1RF Rx Instructions: apply to chest (DME) Socket replacement and supplies See Rx Instructions .Route .MEDSUPPLY Qty: 1 0RF Rx Instructions: As directed. Level K2 ferrous sulfate 325 mg (65 mg iron) tablet,delayed release (DR/EC) 325 mg PO BID acetaminophen 650 mg Tablet Extended Release 650 mg PO Q8H PRN (Reason: Pain) diphenhydramine HCl [Sleep Aid (diphenhydramine)] 25 mg tablet 25 mg PO HS PRN (Reason: Sleep) SPS (with sorbitol) 15-20 gram/60 mL suspension 60 ml PO WK Rx Instructions: magnesium 500 mg Tablet 500 mg PO DAILY Krames/Other Patient Handouts: Managing Type 2 Diabetes Admission Data Admit Date/Time: 12/23/23 16:47 Attending Provider: Iliana Medina Admit Provider: Kaden Causey Primary Care Provider: Andie Rodrigues Other Providers: Kaden Causey; Moise Hunt Coding Level of Care Code 31357 INP/OBS DISCH >30 MIN Diagnoses Hypervolemia associated with renal insufficiency E87.70; N28.9 Hypoxia R09.02 Pleural effusion, right J90 Acute kidney injury superimposed on chronic kidney disease N17.9; N18.9 Diabetes mellitus type 2 with complications E11.8 Obstructive sleep apnea syndrome G47.33 Sleep apnea type: obstructive Recurrent pleural effusion on right J90 Hypervolemia E87.70 Stage 5 chronic kidney disease not on chronic dialysis N18.5
[2023-12-27 17:41] LABS: Hematocrit (blood only) 25.3 % (37.0-47.0); Mean Corpuscular Hemoglobin 28.3 pg (25.0-34.0); Mean Corpuscular Hgb Conc 31.6 g/dL (32.0-36.0); Mean Corpuscular Volume 89.4 fL (80.0-100.0); Mean Platelet Volume 9.9 fL (9.4-12.4); Platelet Count 211 K/uL (130-400); RDW Standard Deviation 49.9 fL (36.4-46.3); Red Blood Count 2.83 M/uL (4.20-5.40); White Blood Count 8.66 K/ul (4.8-10.8)
[2023-12-27 19:53] LABS: Calcium 8.3 mg/dl (8.6-10.3); Creatinine Clr Calc Pharmacy 11.2 ml/min; Est GFR (African American) 8.1 ml/min; Potassium 4.6 mmol/L (3.5-5.1)
[2023-12-27 19:55] LABS: BUN Creatinine Ratio 13.8 (10-20)
== END 2023-12-27 15:00 | disposition home or self-care (01) | DRG 291 ==
LOC: ED 13:34 → EDINP 16:47 → SUATTDRO 16:47 → 4W 20:09

== ENCOUNTER 2024-01-16 12:07 | Inpatient (IN) ==
--- NOTE | 2024-01-16 12:21 | Emergency Department Note ---
Impression & Plan Hypoxic, Shortness of breath, CHF (congestive heart failure) ED Provider Note NAME: WENDI DAMON AGE: 63 SEX: F : 1960 ARRIVES VIA: Walk-In INFORMANT: Patient ED PROVIDER(S): See Duarte DO CHIEF COMPLAINT: shortness of breath HPI: Patient is a 63-year-old female who presents to the ER for shortness of breath. She notes that it started about 3 days ago. She has gained 3 pounds in the past 3 days. She reports feeling like her previous bouts of CHF. Denies any headache or change in vision. No chest pain. She admits to some swelling in her left leg. No dysuria, urgency, or frequency. She has been taking her Bumex and has not missed any doses. She notes that this has happened to her multiple times before in the past. ADDITIONAL HISTORY OBTAINED: Per HPI Chronic Medical/Social Conditions Affecting Care: Per HPI PAST MEDICAL HISTORY:See Below PAST SURGICAL HISTORY:See Below FAMILY HISTORY:See Below SOCIAL HISTORY:See Below HOME MEDICATIONS:See Below ALLERGIES:See Below VITALS:See Below PHYSICAL EXAMINATION: GENERAL: Sitting up in bed, alert, obese, on nasal cannula EYE EXAM: normal conjunctiva. OROPHARYNX: mucous membranes are moist NECK: supple, no nuchal rigidity, no adenopathy, non-tender LUNGS: Clear to auscultation. Normal chest wall mechanics HEART: no murmurs, S1 normal and S2 normal ABDOMEN: abdomen soft, non-tender, normo-active bowel sounds, no masses, no rebound or guarding. BACK: Back is symmetrical on inspection and there is no deformity, no midline tenderness, no CVA tenderness. UPPER EXTREMITIES: upper extremities are grossly normal. LOWER EXTREMITIES: No pitting edema. NEURO EXAM: Normal sensorium, cranial nerves II-XII grossly intact, normal speech, no gross weakness of arms, no gross weakness of legs. MEDICAL DECISION MAKING: Patient is a 63-year-old female with a past medical history of CKD, CHF who presents to the ER for shortness of breath which has been getting worse for the past 3 days. IV was established blood work is obtained. She was found to be hypoxic at 87%. She was placed on 2 L nasal cannula. Labs show no significant leukocytosis and a mild anemia at 9.1 fairly consistent with previous. VBG was unremarkable. BMP with a creatinine of 4.9 which actually improved from previous upon review of external records from last admission. Reviewed Dr. Clifton's from nephrology's note who notes that with the improvement patient is not on dialysis currently. Troponin was negative. Pro-Olman was negative. Viral was negative. Chest x-ray shows a right pleural effusion. Patient was given dose of Bumex after discussion with the hospitalist. Patient was admitted for further workup and remained on 2 L nasal cannula throughout stay in the ER. Consults/Care Managements Discussions: Per [facility] Triage Nursing notes reviewed. Limited review of prior medical records performed Vital Signs: reviewed and remarkable for hypoxia Differential diagnosis: Differential diagnoses includes but is not limited to pneumonia, bronchitis, COPD/Asthma exacerbation, pneumothorax, pulmonary embolism, congestive heart failure, acute coronary syndrome ER treatment provided: See below Diagnostics interpreted by me include EKG and cardiac monitoring as listed below: -Cardiac Monitoring: An order was placed for continuous cardiac monitoring. The monitor shows a rate of 65 with sinus rhythm. -ECG: Sinus rhythm at 65 Left axis No PVCs QTc 492 -Laboratory studies:Interpreted by me as stated above in MDM and shown below. Imaging studies: Xrays: As interpreted by me: Portable AP upright 1 view chest shows a right pleural effusion CTs show: none Procedures:none Critical Care: I have personally spent 32 minutes of critical care time in the direct management of this patient. This includes bedside care, interpretation of diagnostic studies, and testing, discussion with consultants, patient, and family members, and other required patient management activities. This 32 minutes is in excess of all separately billable procedures. Past Med/Surg History Problem List (Updated 01/16/24 @ 18:15 by See Duarte DO) CHF (congestive heart failure) (Acute) Shortness of breath (Acute) Hypoxic (Acute) Pleural effusion, right Essential hypertension (HFpEF) heart failure with preserved ejection fraction Chronic kidney disease, stage V Hypervolemia associated with renal insufficiency ELROY (acute kidney injury) (Acute) CHF (congestive heart failure) (Acute) Anemia (Acute) Hypoxia (Acute) Hypoxia Hypervolemia Acute kidney injury superimposed on chronic kidney disease Stage 5 chronic kidney disease not on chronic dialysis Diabetes mellitus type 2 with complications Acute kidney failure Recurrent pleural effusion on right SOB (shortness of breath) Orthopnea Neuropathy Hyperkalemia Chronic kidney disease, stage 4 (severe) Anemia (Acute) Renal hematoma, left Proteinuria Diabetic neuropathy PAD (peripheral artery disease) Irregular bowel habits Chronic heart failure with preserved ejection fraction (HFpEF) GERD (gastroesophageal reflux disease) (Chronic) Chronic constipation Vitamin D deficiency 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) Chronic diastolic CHF (congestive heart failure) Charcot's arthropathy Sleep apnea no cpap Dyslipidemia Chronic back pain Chronic venous insufficiency (Chronic) Osteoarthritis (Chronic) Medical History ESRD on dialysis Dyspnea Chronic osteomyelitis Hypertension Non-traumatic rhabdomyolysis (02/2021) Postmenopausal bleeding Anemia of chronic disease Diabetic ulcer of left great toe PAD (peripheral artery disease) S/P right lower extremity angiogram, mechanical thrombectomy of pre-existing superficial femoral artery stent usinh [employer] [place] Omni catheter, balloon angioplasty of the superficial femoral artery stent using 5 X 200 mm Ary balloon, balloon angioplasty of the superficial femoral artery 6 X 250 mm IN.PACT drug coated balloon, stent angioplasty of the superficial femoral artery using 5 X 150 mm INOVA bare metal stent, and debridement of the right lateral foot on 11/14/[address] Lomeli. S/P bilateral SFA stenting Morbid obesity BMI 45.7 Clostridium difficile colitis history (~11/2016) -- treated no problems since. Charcot's joint of foot due to diabetes Surgical History History of vascular surgery (04/20/22) L SFA Angio Extremity Unilateral Fem Pop Balloon Atherectomy History of bilateral cataract extraction Status post amputation of toe of right foot (11/14/20) amputation metatarsal w/ toe, R S/P vascular surgery (11/2020) R fem-pop [id number] w/ stent and angioplasty S/P femoral-popliteal bypass surgery S/P angioplasty (10/2019) RT SFA atherectomy/angioplasty w/ MARSHA S/P angioplasty (06/2019) LT SFA angioplastly with MARSHA History of cholecystectomy History of tooth extraction History of esophagogastroduodenoscopy (EGD) S/P epidural steroid injection H/O vascular surgery (01/2020) LT SFA atherectomy, MARSHA w/ supera stenting History of lumpectomy of right breast benign Status post tubal ligation Status post tonsillectomy Family History Mother Rheumatoid arthritis Father Emphysema of lung Peripheral artery disease Aunt Breast cancer MOMS SIDE Colorectal cancer MOMS SIDE Myocardial infarction MOMS SIDE Brother Prostate cancer Sister COPD (chronic obstructive pulmonary disease) Other No family history of adverse response to anesthesia Denies family history of Ovarian cancer CAD (coronary atherosclerotic disease) Social History Smoking Status: Former smoker Tobacco Type: Cigarettes packs per day: 2; Second Hand Exposure: No; Do You Dip or Chew Tobacco: No; Hx Alcohol Use: No Hx Substance Use: No Preferred Language: [place]i Communication Ability: Effective Visual Impairment: No Limitations Hearing Ability: Normal Metal Sprayer Required: No Beliefs That Will Affect Care: None marital status: Current Living Situation: Spouse and Family Current Living Situation Comment: lives with and son current occupational status: disabled How many Children do You have: 1 other: previous worked at [email or web address] Feels Safe at Home: Yes Childhood Exposure to Second-Hand Smoke: Yes (father was a heavy smoker ) Diet: regular Diet Comment: regular caffeine: Yes (very little) during the past year weight has: remained stable Dental Care, Regularly: No Physical Activity Frequency: Does not Exercise Seatbelt Use: always Sunscreen Use: No Assistive Devices: Cane, Denture - Upper, Denture - Lower, Glasses, Prosthesis and Wheelchair Allergies Allergies Allergy/AdvReac Type Severity Reaction Status Date / Time daptomycin Allergy Severe rhabdomyoly Verified 01/16/24 14:20 sis amoxicillin Allergy Intermediate HIVES & N/V Verified 01/16/24 14:20 clavulanic acid Allergy Intermediate HIVES & N/V Verified 01/16/24 14:20 vancomycin Allergy Intermediate pruritus Verified 01/16/24 14:20 sulfamethoxazole AdvReac Severe renal Verified 01/16/24 14:20 [From Bactrim] failure trimethoprim [From Bactrim] AdvReac Severe renal Verified 01/16/24 14:20 failure lisinopril AdvReac Intermediate NAUSEA/VOMI Verified 01/16/24 14:20 TING omeprazole AdvReac Intermediate Nausea Verified 01/16/24 14:20 Home Meds Home Medications Medication Instructions Recorded Confirmed acetaminophen 650 mg 650 mg PO Q8H PRN Pain 10/07/20 01/16/24 tablet,extended release docusate sodium 100 mg capsule 100 mg PO DAILY PRN Constipation 11/10/21 01/16/24 (Stool Softener) loperamide 2 mg capsule (Imodium 2 mg PO Q6H PRN Diarrhea 12/13/21 01/16/24 A-D) polyethylene glycol 3350 17 17 g PO DAILY PRN Constipation 12/13/21 01/16/24 gram/dose oral powder (Miralax) aspirin 81 mg tablet,delayed 81 mg PO DAILY 11/15/22 01/16/24 release (Adult Low Dose Aspirin) diphenhydramine HCl 25 mg tablet 25 mg PO HS PRN Sleep 11/15/22 01/16/24 (Sleep Aid (diphenhydramine)) ferrous sulfate 325 mg (65 mg 325 mg PO BID 03/11/23 01/16/24 iron) tablet,delayed release magnesium 500 mg tablet 500 mg PO DAILY 08/16/23 01/16/24 metoprolol tartrate 25 mg tablet 12.5 mg PO BID 01/16/24 01/16/24 Previous Rx's Medication Instructions Recorded triamcinolone acetonide 0.5 % 1 applic topical BID PRN skin 11/10/21 topical cream irritation #60 grams Prosthetic Socket replacement #1 ea 08/13/22 blood glucose control high and low #1 ea 04/03/23 solution (Accu-Chek Guide L1-L2 Control Solution) trazodone 50 mg tablet 25 mg (1/2 x 50 mg) PO HS #45 tabs 05/27/23 Socket replacement and supplies #1 ea 05/30/23 bumetanide 1 mg tablet 1 mg PO BID #60 tabs 10/22/23 omeprazole 20 mg capsule,delayed 20 mg PO DAILY 90 days #90 caps 11/27/23 release rosuvastatin 40 mg tablet 40 mg PO QAM #90 tabs 11/27/23 ergocalciferol (vitamin D2) 1,250 50,000 unit PO WEEKLY #12 caps 12/20/23 mcg (50,000 unit) capsule amlodipine 10 mg tablet 10 mg PO QAM #90 tabs 01/02/24 tramadol 50 mg tablet 50 mg PO Q8H PRN pain #90 tabs 01/13/24 mecobalamin (vitamin B12) 1,000 1,000 mcg sublingual DAILY #90 tabs 01/16/24 mcg disintegrating tablet,sublingual Results & Data (ED) Vital Signs Vital Signs - 24 hr 01/16/24 12:08 01/16/24 12:17 01/16/24 12:35 Temperature 36.4 C L Temperature Source Temporal Artery Scan Pulse Rate 61 68 Pulse Rhythm Regular Pulse Strength Normal Respiratory Rate 20 24 Respiratory Effort / Characteristics Non-Labored Spontaneous Respiratory Depth Normal Blood Pressure 154/67 H Blood Pressure [Right Arm] Blood Pressure Mean 96 Blood Pressure Mean [Right Arm] Blood Pressure Position Sitting Pulse Oximetry 88 L 95 94 Oxygen Delivery Method Room Air Nasal Cannula Nasal Cannula Oxygen Flow Rate 4 4 Sepsis Recent Fever Within 48 Hours No Sepsis New/Unexplained Change in Mental Status N/A Sepsis Action Taken by Nursing No Action Required 01/16/24 12:45 01/16/24 13:27 Temperature Temperature Source Pulse Rate 72 Pulse Rhythm Pulse Strength Respiratory Rate 22 Respiratory Effort / Characteristics Respiratory Depth Blood Pressure Blood Pressure [Right Arm] 145/88 H Blood Pressure Mean Blood Pressure Mean [Right Arm] 107 Blood Pressure Position Pulse Oximetry 96 Oxygen Delivery Method Nasal Cannula Oxygen Flow Rate 4 Sepsis Recent Fever Within 48 Hours Sepsis New/Unexplained Change in Mental Status Sepsis Action Taken by Nursing Laboratory Data 01/16/24 12:35 01/16/24 12:35 Lab Results 01/16/24 Range/Units 12:35 WBC 11.07 H (4.8-10.8) K/ul RBC 3.25 L (4.20-5.40) M/uL Hgb 9.1 L (12.0-16.0) g/dl Hct 28.8 L (37.0-47.0) % MCV 88.6 (80.0-100.0) fL MCH 28.0 (25.0-34.0) pg MCHC 31.6 L (32.0-36.0) g/dL RDW Std Deviation 50.0 H (36.4-46.3) fL RDW Coeff of Adelina 15.8 H (11.5-14.5) % Plt Count 277 (130-400) K/uL MPV 9.5 (9.4-12.4) fL Immature Gran % (Auto) 0.5 % Neut % (Auto) 81.8 % Lymph % (Auto) 6.6 % [place] % (Auto) 7.1 % Eos % (Auto) 3.3 % Baso % (Auto) 0.7 % Neut # (Auto) 9.06 H (1.40-6.50) K/uL Lymph # (Auto) 0.73 L (1.20-3.40) K/uL [place] # (Auto) 0.79 H (0.11-0.59) K/uL Eos # (Auto) 0.36 (0.00-0.50) K/uL Baso # (Auto) 0.08 (0.00-0.20) K/uL Immature Gran # (Auto) 0.05 (0.01-0.20) K/uL VBG pH 7.36 (7.36-7.41) VBG pCO2 46 (38-50) mmHg VBG pO2 51 mmHg VBG HCO3 26 mmol/L VBG O2 Saturation 83.7 % VBG Base Excess 0.1 mEq/L Sodium 137 (136-145) mmol/L Potassium 4.5 (3.5-5.1) mmol/L Chloride 102 (98-107) mmol/L Carbon Dioxide 29 (21-32) mmol/L Anion Gap 6 (3-11) BUN 54 H (6-23) mg/dl Creatinine 4.97 H* (0.6-1.2) mg/dl Est Cr Clr Drug Dosing Not Reportable Est GFR ( Amer) 9.9 ml/min Est GFR (Non-Af Amer) 8.6 ml/min BUN/Creatinine Ratio 10.9 (10-20) Glucose 142 H (70-99(Fasting)) mg/dl Calcium 8.3 L (8.6-10.3) mg/dl Magnesium 3.0 H (1.7-2.4) mg/dl Total Bilirubin 0.3 (0.2-1.0) mg/dl AST 12 L (13-39) U/L ALT 11 (7-52) U/L Alkaline Phosphatase 97 (34-104) U/L Troponin I High Sens 6.8 (0-14) pg/ml B-Natriuretic Peptide 493 H (0-100) pg/ml Total Protein 7.2 (6.0-8.3) gm/dl Albumin 3.1 L (3.4-5.0) gm/dl Globulin 4.1 H (2.5-4.0) gm/dl Albumin/Globulin Ratio 0.8 L (0.9-2) Lipase 17 (11-82) U/L Procalcitonin 0.18 (0-0.5) ng/ml Administered Medications Heparin Sodium (Porcine) (Heparin Sod 5,000 Unit/0.5 Ml Vial) 5,000 units SQ Q8H PER Stop: 02/15/24 16:57 Last Admin: 01/16/24 17:40 Dose: 5,000 units Documented By: KITTY Bumetanide 1 mg/ Syringe 4 mls @ 4 mls/min IV BID@0900,1700 PER Stop: 02/15/24 16:59 Last Admin: 01/16/24 17:40 Dose: 4 mls/min Documented By: KITTY Insulin Aspart (Insulin Aspart Per Unit Charge) 0 units SC ACHS PER Stop: 02/15/24 16:29 Last Admin: 01/16/24 18:04 Dose: 3 units Documented By: KITTY Co-signed By: DILIP Discontinued Medications Bumetanide 1 mg/ Syringe 4 mls @ 4 mls/min IV ONE ONE Stop: 01/16/24 13:27 Last Admin: 01/16/24 14:17 Dose: 4 mls/min Documented By: PEE Tramadol HCl (Tramadol Hcl 50 Mg Tablet) 25 mg PO NOW STA Stop: 01/16/24 16:15 Last Admin: 01/16/24 17:42 Dose: 25 mg Documented By: KITTY Imaging Data Radiologist's Impression: Chest X-Ray 01/16/24 12:17 XR chest 1V portable CLINICAL HISTORY: Chest pain, nonspecific TECHNIQUE: Single frontal radiograph of the chest was obtained. Comparison: Comparison is made to chest radiograph 12/25/2023 FINDINGS: No lines and tubes are seen. Calcified aortic knob is seen. Elevation of the right hemidiaphragm is seen. Underlying airspace opacity likely represents atelectasis. No evidence of pleural effusion or pneumothorax. IMPRESSION: Elevation of the right hemidiaphragm is seen with likely underlying atelectasis. ACT 112: Negative or not required by law. Electronically signed by: Anthony Odell M.D. 01/16/2024 12:56 PM Discharge Plan Visit Data Chief Complaint: Shortness of Breath/Dyspnea Stated Complaint: sob ED Provider: See Duarte Discharge Problem: Hypoxic, Shortness of breath, CHF (congestive heart failure) Patient Disposition: Admitted As Inpatient Discharge Instructions Interventions: ED Discharge Assessment Last Done: 01/16/24 16:27 Discharge Problem: CHF (congestive heart failure) Qualifiers: Heart failure type: unspecified Heart failure chronicity: unspecified Qualified Code(s): I50.9 - Heart failure, unspecified
[2024-01-16 12:46] LABS: Base Excess VBG 0.1 mEq/L; HCO3 VBG 26 mmol/L; Oxygen Saturation VBG 83.7 %; PCO2 VBG 46 mmHg (38-50); PO2 VBG 51 mmHg; pH VBG 7.36 (7.36-7.41)
[2024-01-16 12:55] LABS: Basophils # (auto) 0.08 K/uL (0.00-0.20); Basophils % (auto) 0.7 %; Eosinophils # (auto) 0.36 K/uL (0.00-0.50); Eosinophils % (auto) 3.3 %; Hematocrit (blood only) 28.8 % (37.0-47.0); Hemoglobin 9.1 g/dl (12.0-16.0); Immature Granulocytes # (auto) 0.05 K/uL (0.01-0.20); Immature Granulocytes % (auto) 0.5 %; Lymphocytes # (auto) 0.73 K/uL (1.20-3.40); Lymphocytes % (auto) 6.6 %; Mean Corpuscular Hgb Conc 31.6 g/dL (32.0-36.0); Mean Corpuscular Volume 88.6 fL (80.0-100.0); Mean Platelet Volume 9.5 fL (9.4-12.4); Monocytes # (auto) 0.79 K/uL (0.11-0.59); Monocytes % (auto) 7.1 %; Neutrophils # (auto) 9.06 K/uL (1.40-6.50); Neutrophils % (auto) 81.8 %; Platelet Count 277 K/uL (130-400); RDW Coefficient of Variation 15.8 % (11.5-14.5); Red Blood Count 3.25 M/uL (4.20-5.40); White Blood Count 11.07 K/ul (4.8-10.8)
--- NOTE | 2024-01-16 12:57 | XRay Report ---
XR chest 1V portable CLINICAL HISTORY: Chest pain, nonspecific TECHNIQUE: Single frontal radiograph of the chest was obtained. Comparison: Comparison is made to chest radiograph 12/25/2023 FINDINGS: No lines and tubes are seen. Calcified aortic knob is seen. Elevation of the right hemidiaphragm is s een. Underlying airspace opacity likely represents atelectasis. No evidence of pleural effusion or pn eumothorax. IMPRESSION: Elevation of the right hemidiaphragm is seen with likely underlying atelectasis. ACT 112: Negative or not required by law. Electronically signed by: Anthony Odell M.D. 01/16/2024 12:56 PM
[2024-01-16 13:14] LABS: Alanine Aminotransferase 11 U/L (7-52); Albumin Globulin Ratio 0.8 (0.9-2); Albumin Level 3.1 gm/dl (3.4-5.0); Alkaline Phosphatase 97 U/L (34-104); Anion Gap 6 (3-11); Aspartate Aminotransferase 12 U/L (13-39); BUN Creatinine Ratio 10.9 (10-20); Bilirubin,Total 0.3 mg/dl (0.2-1.0); Blood Urea Nitrogen 54 mg/dl (6-23); Calcium 8.3 mg/dl (8.6-10.3); Carbon Dioxide 29 mmol/L (21-32); Chloride 102 mmol/L (98-107); Est GFR (African American) 9.9 ml/min; Est GFR (Non-African American) 8.6 ml/min; Globulin 4.1 gm/dl (2.5-4.0); Glucose 142 mg/dl (70-99(Fasting)); Lipase 17 U/L (11-82); Potassium 4.5 mmol/L (3.5-5.1); Sodium 137 mmol/L (136-145); Total Protein 7.2 gm/dl (6.0-8.3)
[2024-01-16 13:17] LABS: Troponin I High Sensitivity 6.8 pg/ml (0-14)
--- NOTE | 2024-01-16 13:30 | History & Physical Report ---
Date of Service January 16, 2024 Assessment & Plan (1) Hypoxia: Plan: Admit to [facility] telemetry on pulse oximetry Currently hemodynamically stable, stable on 4 L nasal cannula, and otherwise nontoxic-appearing Presenting to the ED earlier today due to progressive shortness of breath, dyspnea on exertion, and orthopnea over the past 72 hours with significant increase in symptoms this morning Noted to be in recurrent volume overload with moderate right pleural effusion Similar presentation to previous admissions due to her stage V CKD without recent dialysis and poor compliance with outpatient fluid restriction Currently stable on 4 L nasal cannula, titrate to keep SpO2 at or above 92% Will consult pulmonology for evaluation of possible right thoracentesis and nephrology to consider tunneled dialysis catheter placement prior to discharge Patient did have her morning dose of 1 mg p.o. Bumex, was ordered 1 mg IV Bumex prior to admission, continue with 1 mg IV twice daily Bumex for now SQ heparin for DVT prophylaxis DM type II/renal dialysis diet with 2 g sodium 1800 mL fluid restriction AM CBC, CMP, mag, PT/INR (2) Hypervolemia associated with renal insufficiency: Plan: Patient's presentation is consistent with multiple previous admissions for volume overload due to her known end-stage renal disease Nephrology has been consulted as she follows with them outpatient Continue 1 mg IV twice daily Bumex for now, monitor intake/output every shift with daily weights Monitor daily renal function and electrolytes (3) Pleural effusion, right: Plan: Recurrent moderate right pleural effusion on chest x-ray today Currently stable on 4 L nasal cannula no respiratory distress Will place a pulmonology consult as she has required diagnostic and therapeutic right-sided thoracentesis in the past For now we will continue to diurese and provide supportive care Monitor for improvement on repeat chest x-ray prior to discharge (4) Stage 5 chronic kidney disease not on chronic dialysis: Plan: Creatinine at 4.97 today (down from 5.12 as of 01/08/2024) Electrolytes are currently stable Follow nephrology consult Avoid nephrotoxic agents Monitor daily renal function and electrolytes (5) Essential hypertension: Plan: Currently stable Continue amlodipine, metoprolol Monitor blood pressure moving forward with ongoing IV diuresis (6) Diabetes mellitus type 2 with complications: Plan: Monitor BSG ACHS, goal is [id number] Hold basal insulin to avoid hypoglycemia with her stage V CKD Start CF of 50 and CR of 15 ACHS for now Adjust regimen as needed Plan The patient was discussed with Dr. Dior at time of admission History of Present Illness Chief Complaint: SOB Primary Care Provider: Andie Rodrigues DO Jeanne is a 63-year-old female with PMH of stage 4/5 CKD With need for hemodialysis at times in 2022, chronic diastolic heart failure, recurrent admissions for volume overload and moderate to large right pleural effusion, PAD, right BKA, T2DM with complications, sleep apnea (Not compliant with at bedtime CPAP),, GERD, and Charcot's arthroplasty who presented to the [facility] ED on 01/16/2024 due to recurrent episodes of shortness of breath. On arrival to the ED she was noted to be hypoxic at 88% on room air, hypertensive at 154/67, but otherwise stable. Labs were significant for a leukocytosis of 11 with neutrophil predominance of 9, VBG within normal limits, creatinine of 4.97 with stable electrolytes, BNP of 493 (up from 437 as of 12/23/2023), high-sensitivity troponin within normal limits. Chest xray was read as Elevation of the right hemidiaphragm is seen with likely underlying atelectasis. On my read it does appear that the patient has recurrence of her moderate right pleural effusion. Prior to admission the patient was ordered 1 mg IV Bumex. Patient was sitting in bed in no acute distress at the time of the exam, she is currently stable on 4 L nasal cannula. States that she started to notice progressive shortness of breath and dyspnea on exertion with worsening orthopnea approximately 3 days ago. This morning when she woke she was significantly more short of breath even at rest. Has developed a nonproductive cough over the past 3 days, denies pleuritic chest pain and hemoptysis. States that she has been compliant with her 1 mg p.o. Bumex twice daily and her low-sodium diet. When asked if she sticks to a fluid restriction she states that she does not watch her fluid intake as closely as her sodium intake. Since being placed on nasal cannula her breathing has been much improved. She confirms that she is still making urine. Denies recent fever or chills, chest pain, abdominal pain, nausea/vomiting, dysuria, hematuria, diarrhea, melena, and recent trauma. She confirms that they have been monitoring her renal function closely and continue to talk about potential femoral dialysis catheter with plans for AV fistula placement in the coming months. She confirms she is a full code and she would want her and son to make medical decisions for her if she cannot make them herself. Please refer to Dr. Dior' attestation for any changes to the treatment plan Allergies Allergy/AdvReac Type Severity Reaction Status Date / Time daptomycin Allergy Severe rhabdomyoly Verified 01/02/24 11:26 sis amoxicillin Allergy Intermediate HIVES & N/V Verified 01/02/24 11:26 clavulanic acid Allergy Intermediate HIVES & N/V Verified 01/02/24 11:26 vancomycin Allergy Intermediate pruritus Verified 01/02/24 11:26 sulfamethoxazole AdvReac Severe renal Verified 01/02/24 11:26 [From Bactrim] failure trimethoprim [From Bactrim] AdvReac Severe renal Verified 01/02/24 11:26 failure lisinopril AdvReac Intermediate NAUSEA/VOMI Verified 01/02/24 11:26 TING omeprazole AdvReac Intermediate Nausea Verified 01/02/24 11:26 Home Medications Medication Instructions Recorded Confirmed Type acetaminophen 650 mg 650 mg PO Q8H PRN Pain 10/07/20 01/02/24 History tablet,extended release docusate sodium 100 mg capsule 100 mg PO DAILY PRN Constipation 11/10/21 01/02/24 History (Stool Softener) triamcinolone acetonide 0.5 % 1 applic topical BID PRN skin 11/10/21 01/02/24 Rx topical cream irritation #60 grams loperamide 2 mg capsule (Imodium 2 mg PO Q6H PRN Diarrhea 12/13/21 01/02/24 History A-D) polyethylene glycol 3350 17 17 g PO DAILY PRN Constipation 12/13/21 01/02/24 History gram/dose oral powder (Miralax) Prosthetic Socket replacement #1 ea 08/13/22 01/02/24 Rx aspirin 81 mg tablet,delayed 81 mg PO DAILY 11/15/22 01/02/24 History release (Adult Low Dose Aspirin) diphenhydramine HCl 25 mg tablet 25 mg PO HS PRN Sleep 11/15/22 01/02/24 History (Sleep Aid (diphenhydramine)) ferrous sulfate 325 mg (65 mg 325 mg PO BID 03/11/23 01/02/24 History iron) tablet,delayed release blood glucose control high and low #1 ea 04/03/23 01/02/24 Rx solution (Accu-Chek Guide L1-L2 Control Solution) trazodone 50 mg tablet 25 mg (1/2 x 50 mg) PO HS #45 tabs 05/27/23 01/02/24 Rx Socket replacement and supplies #1 ea 05/30/23 01/02/24 Rx magnesium 500 mg tablet 500 mg PO DAILY 08/16/23 01/02/24 History sodium polystyrene sulfonate 15 60 ml PO WK 08/16/23 01/02/24 History gram-sorbitol 20 gram/60 mL oral susp (SPS (with sorbitol)) metoprolol tartrate 25 mg tablet 25 mg PO BID #180 tabs 10/21/23 01/02/24 Rx bumetanide 1 mg tablet 1 mg PO BID #60 tabs 10/22/23 01/02/24 Rx omeprazole 20 mg capsule,delayed 20 mg PO DAILY 90 days #90 caps 11/27/23 01/02/24 Rx release rosuvastatin 40 mg tablet 40 mg PO QAM #90 tabs 11/27/23 01/02/24 Rx ergocalciferol (vitamin D2) 1,250 50,000 unit PO WEEKLY #12 caps 12/20/23 01/02/24 Rx mcg (50,000 unit) capsule amlodipine 10 mg tablet 10 mg PO QAM #90 tabs 01/02/24 01/02/24 Rx tramadol 50 mg tablet 50 mg PO Q8H PRN pain #90 tabs 01/13/24 Rx mecobalamin (vitamin B12) 1,000 1,000 mcg sublingual DAILY #90 tabs 01/16/24 Rx mcg disintegrating tablet,sublingual Past Med/Surg History Problem List Pleural effusion, right Essential hypertension (HFpEF) heart failure with preserved ejection fraction Chronic kidney disease, stage V Hypervolemia associated with renal insufficiency ELROY (acute kidney injury) (Acute) CHF (congestive heart failure) (Acute) Anemia (Acute) Hypoxia (Acute) Hypoxia Hypervolemia Acute kidney injury superimposed on chronic kidney disease Stage 5 chronic kidney disease not on chronic dialysis Diabetes mellitus type 2 with complications Acute kidney failure Recurrent pleural effusion on right SOB (shortness of breath) Orthopnea Neuropathy Hyperkalemia Chronic kidney disease, stage 4 (severe) Anemia (Acute) Renal hematoma, left Proteinuria Diabetic neuropathy PAD (peripheral artery disease) Irregular bowel habits Chronic heart failure with preserved ejection fraction (HFpEF) GERD (gastroesophageal reflux disease) (Chronic) Chronic constipation Vitamin D deficiency 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) Chronic diastolic CHF (congestive heart failure) Charcot's arthropathy Sleep apnea no cpap Dyslipidemia Chronic back pain Chronic venous insufficiency (Chronic) Osteoarthritis (Chronic) Medical History ESRD on dialysis Dyspnea Chronic osteomyelitis Hypertension Non-traumatic rhabdomyolysis (02/2021) Postmenopausal bleeding Anemia of chronic disease Diabetic ulcer of left great toe PAD (peripheral artery disease) Morbid obesity Clostridium difficile colitis Charcot's joint of foot due to diabetes Surgical History History of vascular surgery (04/20/22) History of bilateral cataract extraction Status post amputation of toe of right foot (11/14/20) S/P vascular surgery (11/2020) S/P femoral-popliteal bypass surgery S/P angioplasty (10/2019) S/P angioplasty (06/2019) History of cholecystectomy History of tooth extraction History of esophagogastroduodenoscopy (EGD) S/P epidural steroid injection H/O vascular surgery (01/2020) History of lumpectomy of right breast Status post tubal ligation Status post tonsillectomy Family History Mother Rheumatoid arthritis Father Emphysema of lung Peripheral artery disease Aunt Breast cancer Colorectal cancer Myocardial infarction Brother Prostate cancer Sister COPD (chronic obstructive pulmonary disease) Other No family history of adverse response to anesthesia Denies family history of Ovarian cancer CAD (coronary atherosclerotic disease) Social History (Updated 01/02/24 @ 11:27 by Tiffany Mcdonnell LPN) Smoking Status: Former smoker Tobacco Type: Cigarettes packs per day: 2; Second Hand Exposure: No; Do You Dip or Chew Tobacco: No; Hx Alcohol Use: No Hx Substance Use: No Preferred Language: Yoruba Communication Ability: Effective Visual Impairment: No Limitations Hearing Ability: Normal [employer] Required: Yes Beliefs That Will Affect Care: None marital status: Current Living Situation: Spouse and Family Current Living Situation Comment: lives with and son current occupational status: disabled How many Children do You have: 1 other: previous worked at [employer] Feels Safe at Home: Yes Childhood Exposure to Second-Hand Smoke: Yes (father was a heavy smoker ) Diet: regular Diet Comment: regular caffeine: Yes (very little) during the past year weight has: remained stable Dental Care, Regularly: No Physical Activity Frequency: Does not Exercise Seatbelt Use: always Sunscreen Use: No Assistive Devices: Cane, Walker, Wheelchair and Other Physical Exam Physical Exam: Physical Exam: General: In no acute distress, stated age, Chronically ill-appearing but nontoxic HEENT: Normocephalic, atraumatic, no scleral icterus, pupils around round, symmetrical, and reactive to light, moist mucus membranes, No significant JVD, trachea midline, no thyromegaly Chest/Pulm: No respiratory distress, symmetrical chest expansion, Decreased breath sounds in the bilateral lower lung erazo and right midlung field with crackles in the left midlung field, clear breath sounds in the bilateral upper lung erazo Cardiac: RRR, no murmurs noted Abdomen: Negative for ascites and bruising, normoactive bowel sounds, soft, non-tender to palpation throughout Musculoskeletal: Status post right BKA, no acute trauma on exam Extremities: Radial, dorsalis pedis, and posterior tibial pulses are intact and symmetrical, 2+ pitting edema noted in the left lower extremity Skin: Warm, dry, no rashes , lesions, or scars noted Neuro: Alert and oriented to person, place, month, year, and president, no focal defects, no tremors noted Psych: No acute distress, calm and cooperative during the exam Results & Data Results & Data Vital Signs (Past 12 Hours) Vital Signs Temp Pulse Resp BP Pulse Ox O2 Del Method O2 Flow Rate 01/16/24 12:45 72 01/16/24 12:35 94 Nasal Cannula 4 01/16/24 12:17 68 24 95 Nasal Cannula 4 01/16/24 12:08 36.4 C L 61 20 154/67 H 88 L Room Air Laboratory Results Abnormal lab results 01/16/24 Range/Units 12:35 WBC 11.07 H (4.8-10.8) K/ul RBC 3.25 L (4.20-5.40) M/uL Hgb 9.1 L (12.0-16.0) g/dl Hct 28.8 L (37.0-47.0) % MCHC 31.6 L (32.0-36.0) g/dL RDW Std Deviation 50.0 H (36.4-46.3) fL RDW Coeff of Adelina 15.8 H (11.5-14.5) % Neut # (Auto) 9.06 H (1.40-6.50) K/uL Lymph # (Auto) 0.73 L (1.20-3.40) K/uL [place] # (Auto) 0.79 H (0.11-0.59) K/uL BUN 54 H (6-23) mg/dl Creatinine 4.97 H* (0.6-1.2) mg/dl Glucose 142 H (70-99(Fasting)) mg/dl Calcium 8.3 L (8.6-10.3) mg/dl AST 12 L (13-39) U/L B-Natriuretic Peptide 493 H (0-100) pg/ml Albumin 3.1 L (3.4-5.0) gm/dl Globulin 4.1 H (2.5-4.0) gm/dl Albumin/Globulin Ratio 0.8 L (0.9-2) Diagnostic Findings Chest X-Ray 01/16/24 12:17 XR chest 1V portable CLINICAL HISTORY: Chest pain, nonspecific TECHNIQUE: Single frontal radiograph of the chest was obtained. Comparison: Comparison is made to chest radiograph 12/25/2023 FINDINGS: No lines and tubes are seen. Calcified aortic knob is seen. Elevation of the right hemidiaphragm is seen. Underlying airspace opacity likely represents atelectasis. No evidence of pleural effusion or pneumothorax. IMPRESSION: Elevation of the right hemidiaphragm is seen with likely underlying atelectasis. ACT 112: Negative or not required by law. Electronically signed by: Anthony Odell M.D. 01/16/2024 12:56 PM ECG Additional Comments: Sinus rhythm first-degree AV block, incomplete right bundle branch block, QTc of 492, no acute ST segment or T wave changes Code Status & VTE Plan Code Status Full code VTE Prophylaxis Plan VTE Prophylaxis will be ordered: Yes Supervising Physician Co-Signing Physician Notes I have personally seen, evaluated and examined the patient. I have also personally discussed the management of the patient with the resident physician/ALEX and I agree with the exam findings documented in the history and physical examination and the documented assessment and plan unless otherwise stated below. Brief Exam: In general very pleasant 63-year-old female who is alert oriented x 3 at time my exam. She is not in any respiratory distress at the time my examination. She is talking in full sentences. She is not using accessory muscles or respiration. But she is on supplemental oxygen currently which she is normally is not. She denies chest pain. HEENT: Normocephalic atraumatic. Heart: Regular no appreciable murmur. Lungs: Very diminished fact absent and no breath sounds in the right lower lung field and right midlung field consistent with a relatively large pleural effusion. Other lung erazo appear to be fairly clear. Exam is somewhat limited with her AP diameter. Abdomen: Soft and nontender. Extremities: Prosthetic limb noted on the right lower extremity. Neurologically: She is alert and oriented with no focal deficit. Assessment/plan: As discussed above. Does appear this patient has advancing kidney disease approaching end-stage renal disease. Nephrology's been consulted will try to diurese her as best we can. Will see if pulmonology feels that the patient's pleural effusion is amenable to thoracentesis. Fluid restricted. Please refer to orders for further planning. PG Care Time/CCT Total # of Minutes Spent Total Time Spent with Patient: Total time spent is greater than 50% in coordination of care (as documented) at patient's floor/unit and/or counseling patient: Coding [place] [address] INT INP/OBS CARE 3/75MIN Patient Type Established Medical Decision Making High Complexity Diagnoses Hypoxia R09.02 Hypervolemia associated with renal insufficiency E87.70; N28.9 Pleural effusion, right J90 Stage 5 chronic kidney disease not on chronic dialysis N18.5 Essential hypertension I10 Diabetes mellitus type 2 with complications E11.8
[2024-01-16] MEDS ORDERED: DEXTROSE 50% 50 ML SYRINGE IV PRN (13:32)
[2024-01-16] MEDS ORDERED: GLUCAGON FOR INJ 1 MG VIAL SQ PRN (13:32)
[2024-01-16] MEDS ORDERED: CARBOHYDRATES FOR HYPOGLYCEMIA PO PRN (13:32)
[2024-01-16] MEDS ORDERED: GLUCOSE 40% GEL 15 GM TUBE PO PRN (13:32)
[2024-01-16] MEDS ORDERED: GLUCOSE 10 TAB/TUBE PO PRN (13:32)
[2024-01-16] MEDS: BUMETANIDE 1 MG in SYRINGE 0 ML IV ONE (14:17)
[2024-01-16 14:32] LABS: Adenovirus PCR Not Detected (NotDetected); Bordetella parapertussis PCR Not Detected (NotDetected); Bordetella pertussis PCR Not Detected (NotDetected); Chlamydia pneumoniae PCR Not Detected (NotDetected); Coronavirus 229E PCR Not Detected (NotDetected); Coronavirus CoV-2 (COVID19)PCR Not Detected (NotDetected); Coronavirus HKU1 PCR Not Detected (NotDetected); Coronavirus NL63 PCR Not Detected (NotDetected); Coronavirus OC43PCR Not Detected (NotDetected); Human Metapneumovirus PCR Not Detected (NotDetected); Influenza A PCR Not Detected (NotDetected); Influenza B PCR Not Detected (NotDetected); Mycoplasma pneumoniae PCR Not Detected (NotDetected); Parainfluenza Virus 1 PCR Not Detected (NotDetected); Parainfluenza Virus 2 PCR Not Detected (NotDetected); Parainfluenza Virus 3 PCR Not Detected (NotDetected); Parainfluenza Virus 4 PCR Not Detected (NotDetected); Respiratory Syncytial VirusPCR Not Detected (NotDetected); Rhinovirus/Enterovirus PCR Not Detected (NotDetected)
--- NOTE | 2024-01-16 14:51 | Electrocardiogram Report ---
Test Reason : Blood Pressure : */* mmHG Vent. Rate : 65 BPM Atrial Rate : 65 BPM P-R Int : 234 ms QRS Dur : 118 ms QT Int : 474 ms P-R-T Axes : 46 -41 50 degrees QTcB Int : 492 ms Sinus rhythm with 1st degree A-V block Left axis deviation Incomplete right bundle branch block Minimal voltage criteria for LVH, may be normal variant Prolonged QT Abnormal ECG When compared with ECG of 23-Dec-2023 14:35, Criteria for Anteroseptal infarct are no longer Present Nonspecific T wave abnormality no longer evident in Inferior leads Confirmed by Martin Berry ([id number] on 01/16/2024 2:50:55 PM Referred By: REFERRED SELF Confirmed By: Martin Berry
--- NOTE | 2024-01-16 15:22 | Nephrology Consultation ---
Date of Consultation January 16, 2024 Assessment & Plan (1) Chronic kidney disease, stage V: * Kidney function is mildly improved compared to prior studies, however, EGFR remains < 15 cc/min * Patient has no uremic symptoms * Electrolyte balance is acceptable * No acute indication for HD at this time * Continue diuresis w/ Bumex 1 mg po BID. Monitor BMP (2) Pleural effusion, right: * CXR film reviewed. Unclear whether patient has recurrent R effusion or atelectasis. Agree w/ obtaining consultation w/ Pulmonology. Patient may require US, thoracentesis. Await pulmonology recommendations (3) Anemia: * Will order iron studies w/ am labs * Monitor H&H (4) Essential hypertension: * BP is mildly elevated. Will monitor History of Present Illness Reason for Consultation: CKD History of Present Illness Mrs. Simpson is a 63 year old white female who is seen at the request of [facility] hospitalist service for evaluation of ELROY/CKD. Information for the HPI is obtained from direct patient interview and review of the EMR. HPI is summarized as follows: Mrs. Simpson has CKD stage G5 (ESKD). Baseline Cr has been 3.0-3.5 w/ EGFR 14 cc/min. Her primary Line Worker is Dr. Mei. Outpatient evaluation revealed proteinuria and 10/30 [facility] kidney biopsy was c/w DKD. Unfortunately procedure was complicated by perinephric hematoma and ELROY on CKD requiring IJ TCC and initiation of HD. 01/30 patient recovered kidney function and came off HD. Her creatinine stabilized at 3.5. She declined AVF creation unless permanent HD was necessary. Mrs. Simpson has a h/o recurrent pleural effusion. On 08/05/23 she required R thoracentesis w/ 1 L fluid removal (transudative). On 09/01/23 she again required R thoracentesis w/ 2.2 L volume removal. Mrs. Simpson had been on Bumex 1 mg po BID. in 12/31 serum creatinine has risen to approximately 5.5. Mrs. Simpson was seen as an outpatient. Plans were made for close monitoring and possible reinitiation of dialysis if her kidney function worsened. Ms. Simpson reports that she has been following a low-sodium diet and has been adherent with her prescribed diuretic therapy. Mrs. Simpson presented to the [facility] EMD this afternoon with complaints of dyspnea. She has had progressive dyspnea over the last 3 days. Weight has risen 2 kg since last office visit. There is been no associated fever, productive cough or hemoptysis. She has had no recent ill contacts. Room air O2 sat in the emergency department was 88%. She is now breathing comfortably on O2 at 4 L/min nasal cannula. CXR reveals an elevated R hemidiaphragm versus recurrent pleural effusion. Creatinine is slightly improved at 4.97. There were no significant electrolyte abnormalities. 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, Morbid Obesity, and HTN Allergies Allergy/AdvReac Type Severity Reaction Status Date / Time daptomycin Allergy Severe rhabdomyoly Verified 01/16/24 14:20 sis amoxicillin Allergy Intermediate HIVES & N/V Verified 01/16/24 14:20 clavulanic acid Allergy Intermediate HIVES & N/V Verified 01/16/24 14:20 vancomycin Allergy Intermediate pruritus Verified 01/16/24 14:20 sulfamethoxazole AdvReac Severe renal Verified 01/16/24 14:20 [From Bactrim] failure trimethoprim [From Bactrim] AdvReac Severe renal Verified 01/16/24 14:20 failure lisinopril AdvReac Intermediate NAUSEA/VOMI Verified 01/16/24 14:20 TING omeprazole AdvReac Intermediate Nausea Verified 01/16/24 14:20 Home Medications Medication Instructions Recorded Confirmed Type acetaminophen 650 mg 650 mg PO Q8H PRN Pain 10/07/20 01/16/24 History tablet,extended release docusate sodium 100 mg capsule 100 mg PO DAILY PRN Constipation 11/10/21 01/16/24 History (Stool Softener) triamcinolone acetonide 0.5 % 1 applic topical BID PRN skin 11/10/21 01/16/24 Rx topical cream irritation #60 grams loperamide 2 mg capsule (Imodium 2 mg PO Q6H PRN Diarrhea 12/13/21 01/16/24 History A-D) polyethylene glycol 3350 17 17 g PO DAILY PRN Constipation 12/13/21 01/16/24 History gram/dose oral powder (Miralax) Prosthetic Socket replacement #1 ea 08/13/22 01/02/24 Rx aspirin 81 mg tablet,delayed 81 mg PO DAILY 11/15/22 01/16/24 History release (Adult Low Dose Aspirin) diphenhydramine HCl 25 mg tablet 25 mg PO HS PRN Sleep 11/15/22 01/16/24 History (Sleep Aid (diphenhydramine)) ferrous sulfate 325 mg (65 mg 325 mg PO BID 03/11/23 01/16/24 History iron) tablet,delayed release blood glucose control high and low #1 ea 04/03/23 01/02/24 Rx solution (Accu-Chek Guide L1-L2 Control Solution) trazodone 50 mg tablet 25 mg (1/2 x 50 mg) PO HS #45 tabs 05/27/23 01/16/24 Rx Socket replacement and supplies #1 ea 05/30/23 01/02/24 Rx magnesium 500 mg tablet 500 mg PO DAILY 08/16/23 01/16/24 History bumetanide 1 mg tablet 1 mg PO BID #60 tabs 10/22/23 01/16/24 Rx omeprazole 20 mg capsule,delayed 20 mg PO DAILY 90 days #90 caps 11/27/23 01/16/24 Rx release rosuvastatin 40 mg tablet 40 mg PO QAM #90 tabs 11/27/23 01/16/24 Rx ergocalciferol (vitamin D2) 1,250 50,000 unit PO WEEKLY #12 caps 12/20/23 01/16/24 Rx mcg (50,000 unit) capsule amlodipine 10 mg tablet 10 mg PO QAM #90 tabs 01/02/24 01/16/24 Rx tramadol 50 mg tablet 50 mg PO Q8H PRN pain #90 tabs 01/13/24 01/16/24 Rx mecobalamin (vitamin B12) 1,000 1,000 mcg sublingual DAILY #90 tabs 01/16/24 01/16/24 Rx mcg disintegrating tablet,sublingual metoprolol tartrate 25 mg tablet 12.5 mg PO BID 01/16/24 01/16/24 History Patient History Medical History ESRD on dialysis Dyspnea Chronic osteomyelitis Hypertension Non-traumatic rhabdomyolysis (02/2021) Postmenopausal bleeding Anemia of chronic disease Diabetic ulcer of left great toe PAD (peripheral artery disease) S/P right lower extremity angiogram, mechanical thrombectomy of pre-existing superficial femoral artery stent tung Nylaramos [place] Omni catheter, balloon angioplasty of the superficial femoral artery stent using 5 X 200 mm [place] balloon, balloon angioplasty of the superficial femoral artery 6 X 250 mm IN.PACT drug coated balloon, stent angioplasty of the superficial femoral artery using 5 X 150 mm INOVA bare metal stent, and debridement of the right lateral foot on 11/14/[address] Lomeli. S/P bilateral SFA stenting Morbid obesity BMI 45.7 Clostridium difficile colitis history (~11/2016) -- treated no problems since. Charcot's joint of foot due to diabetes Surgical History History of vascular surgery (04/20/22) L SFA Angio Extremity Unilateral Fem Pop Balloon Atherectomy History of bilateral cataract extraction Status post amputation of toe of right foot (11/14/20) amputation metatarsal w/ toe, R S/P vascular surgery (11/2020) R fem-pop [id number] w/ stent and angioplasty S/P femoral-popliteal bypass surgery S/P angioplasty (10/2019) RT SFA atherectomy/angioplasty w/ MARSHA S/P angioplasty (06/2019) LT SFA angioplastly with MARSHA History of cholecystectomy History of tooth extraction History of esophagogastroduodenoscopy (EGD) S/P epidural steroid injection H/O vascular surgery (01/2020) LT SFA atherectomy, MARSHA w/ supera stenting History of lumpectomy of right breast benign Status post tubal ligation Status post tonsillectomy Family History Mother Rheumatoid arthritis Father Emphysema of lung Peripheral artery disease Aunt Breast cancer MOMS SIDE Colorectal cancer MOMS SIDE Myocardial infarction MOMS SIDE Brother Prostate cancer Sister COPD (chronic obstructive pulmonary disease) Other No family history of adverse response to anesthesia Denies family history of Ovarian cancer CAD (coronary atherosclerotic disease) Social History Smoking Status: Former smoker Tobacco Type: Cigarettes packs per day: 2; Second Hand Exposure: No; Do You Dip or Chew Tobacco: No; Hx Alcohol Use: No Hx Substance Use: No Preferred Language: Citizen [place] Communication Ability: Effective Visual Impairment: No Limitations Hearing Ability: Normal 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 Required: Yes Beliefs That Will Affect Care: None marital status: Current Living Situation: Spouse and Family Current Living Situation Comment: lives with and son current occupational status: disabled How many Children do You have: 1 other: previous worked at [employer] Feels Safe at Home: Yes Childhood Exposure to Second-Hand Smoke: Yes (father was a heavy smoker ) Diet: regular Diet Comment: regular caffeine: Yes (very little) during the past year weight has: remained stable Dental Care, Regularly: No Physical Activity Frequency: Does not Exercise Seatbelt Use: always Sunscreen Use: No Assistive Devices: Cane, Walker, Wheelchair and Other Review of Systems Constitutional: no fever Eyes: no worsening vision Ear, Nose, Mouth, Throat: no problem reported Respiratory: no dyspnea Cardiovascular: no chest pain Gastrointestinal: no nausea, no vomiting and no diarrhea/loose stools Genitourinary: no dysuria and no hematuria Musculoskeletal: no back pain Integumentary: no rash Neurologic: no problem reported Physical Exam Constitutional: not in distress Eyes: PERRL, conjunctivae normal, anicteric sclerae ENMT: external ear and nose normal, oropharynx normal Neck: trachea midline, no thyromegaly Respiratory: Auscultation: lungs clear to auscultation bilaterally and + rales Cardiovascular: Rate/Rhythm: + bradycardic Gastrointestinal (Abdomen): normal bowel sounds, soft, nontender, no hepatosplenomegaly Skin: no rashes, warm and dry Neurologic: Speech / Cognition: normal speech and normal cognition Psychiatric: Affect: euthymic affect Results & Data Vital Signs (Past 12 Hours) Vital Signs Temp Pulse Resp BP BP Pulse Ox O2 Del Method 01/16/24 14:00 18 159/72 H 98 Nasal Cannula 01/16/24 13:27 22 145/88 H 96 Nasal Cannula 01/16/24 12:45 72 01/16/24 12:35 94 Nasal Cannula 01/16/24 12:17 68 24 95 Nasal Cannula 01/16/24 12:08 36.4 C L 61 20 154/67 H 88 L Room Air O2 Flow Rate 01/16/24 14:00 4 01/16/24 13:27 4 01/16/24 12:45 01/16/24 12:35 4 01/16/24 12:17 4 01/16/24 12:08 Laboratory Results Laboratory Results WBC 11.07 K/ul (4.8-10.8) H 01/16/24 12:35 RBC 3.25 M/uL (4.20-5.40) L 01/16/24 12:35 Hgb 9.1 g/dl (12.0-16.0) L 01/16/24 12:35 Hct 28.8 % (37.0-47.0) L 01/16/24 12:35 MCV 88.6 fL (80.0-100.0) 01/16/24 12:35 MCH 28.0 pg (25.0-34.0) 01/16/24 12:35 MCHC 31.6 g/dL (32.0-36.0) L 01/16/24 12:35 RDW Std Deviation 50.0 fL (36.4-46.3) H 01/16/24 12:35 RDW Coeff of Adelina 15.8 % (11.5-14.5) H 01/16/24 12:35 Plt Count 277 K/uL (130-400) 01/16/24 12:35 MPV 9.5 fL (9.4-12.4) 01/16/24 12:35 Immature Gran % (Auto) 0.5 % 01/16/24 12:35 Neut % (Auto) 81.8 % 01/16/24 12:35 Lymph % (Auto) 6.6 % 01/16/24 12:35 [place] % (Auto) 7.1 % 01/16/24 12:35 Eos % (Auto) 3.3 % 01/16/24 12:35 Baso % (Auto) 0.7 % 01/16/24 12:35 Neut # (Auto) 9.06 K/uL (1.40-6.50) H 01/16/24 12:35 Lymph # (Auto) 0.73 K/uL (1.20-3.40) L 01/16/24 12:35 [place] # (Auto) 0.79 K/uL (0.11-0.59) H 01/16/24 12:35 Eos # (Auto) 0.36 K/uL (0.00-0.50) 01/16/24 12:35 Baso # (Auto) 0.08 K/uL (0.00-0.20) 01/16/24 12:35 Immature Gran # (Auto) 0.05 K/uL (0.01-0.20) 01/16/24 12:35 VBG pH 7.36 (7.36-7.41) 01/16/24 12:35 VBG pCO2 46 mmHg (38-50) 01/16/24 12:35 VBG pO2 51 mmHg 01/16/24 12:35 VBG HCO3 26 mmol/L 01/16/24 12:35 VBG O2 Saturation 83.7 % 01/16/24 12:35 VBG Base Excess 0.1 mEq/L 01/16/24 12:35 Sodium 137 mmol/L (136-145) 01/16/24 12:35 Potassium 4.5 mmol/L (3.5-5.1) 01/16/24 12:35 Chloride 102 mmol/L (98-107) 01/16/24 12:35 Carbon Dioxide 29 mmol/L (21-32) 01/16/24 12:35 Anion Gap 6 (3-11) 01/16/24 12:35 BUN 54 mg/dl (6-23) H 01/16/24 12:35 Creatinine 4.97 mg/dl (0.6-1.2) H* 01/16/24 12:35 Est Cr Clr Drug Dosing Not Reportable 01/16/24 12:35 Est GFR ( Amer) 9.9 ml/min 01/16/24 12:35 Est GFR (Non-Af Amer) 8.6 ml/min 01/16/24 12:35 BUN/Creatinine Ratio 10.9 (10-20) 01/16/24 12:35 Glucose 142 mg/dl (70-99(Fasting)) H 01/16/24 12:35 POC Glucose 146 mg/dl (70-99) H 01/16/24 14:30 Calcium 8.3 mg/dl (8.6-10.3) L 01/16/24 12:35 Magnesium 3.0 mg/dl (1.7-2.4) H 01/16/24 12:35 Total Bilirubin 0.3 mg/dl (0.2-1.0) 01/16/24 12:35 AST 12 U/L (13-39) L 01/16/24 12:35 ALT 11 U/L (7-52) 01/16/24 12:35 Alkaline Phosphatase 97 U/L (34-104) 01/16/24 12:35 Troponin I High Sens 6.8 pg/ml (0-14) 01/16/24 12:35 B-Natriuretic Peptide 493 pg/ml (0-100) H 01/16/24 12:35 Total Protein 7.2 gm/dl (6.0-8.3) 01/16/24 12:35 Albumin 3.1 gm/dl (3.4-5.0) L 01/16/24 12:35 Globulin 4.1 gm/dl (2.5-4.0) H 01/16/24 12:35 Albumin/Globulin Ratio 0.8 (0.9-2) L 01/16/24 12:35 Lipase 17 U/L (11-82) 01/16/24 12:35 Procalcitonin 0.18 ng/ml (0-0.5) 01/16/24 12:35 Adenovirus (PCR) Not Detected (NotDetected) 01/16/24 Unknown B. pertussis DNA (PCR) Not Detected (NotDetected) 01/16/24 Unknown B.parapertussis DNA PCR Not Detected (NotDetected) 01/16/24 Unknown C. pneumoniae DNA (PCR) Not Detected (NotDetected) 01/16/24 Unknown Coronavirus OC43 (PCR) Not Detected (NotDetected) 01/16/24 Unknown Coronavirus HKU1 (PCR) Not Detected (NotDetected) 01/16/24 Unknown Coronavirus 229E (PCR) Not Detected (NotDetected) 01/16/24 Unknown SARS-CoV-2 (PCR) Not Detected (NotDetected) 01/16/24 Unknown Coronavirus NL63 (PCR) Not Detected (NotDetected) 01/16/24 Unknown Human Metapneumovir PCR Not Detected (NotDetected) 01/16/24 Unknown Influenza Type A (PCR) Not Detected (NotDetected) 01/16/24 Unknown Influenza Type B (PCR) Not Detected (NotDetected) 01/16/24 Unknown M. pneumoniae (PCR) Not Detected (NotDetected) 01/16/24 Unknown Parainfluenza 1 (PCR) Not Detected (NotDetected) 01/16/24 Unknown Parainfluenza 2 (PCR) Not Detected (NotDetected) 01/16/24 Unknown Parainfluenza 3 (PCR) Not Detected (NotDetected) 01/16/24 Unknown Parainfluenza 4 (PCR) Not Detected (NotDetected) 01/16/24 Unknown RSV (PCR) Not Detected (NotDetected) 01/16/24 Unknown Entero/Rhino (PCR) Not Detected (NotDetected) 01/16/24 Unknown Impressions Chest X-Ray 01/16/24 12:17 XR chest 1V portable CLINICAL HISTORY: Chest pain, nonspecific TECHNIQUE: Single frontal radiograph of the chest was obtained. Comparison: Comparison is made to chest radiograph 12/25/2023 FINDINGS: No lines and tubes are seen. Calcified aortic knob is seen. Elevation of the right hemidiaphragm is seen. Underlying airspace opacity likely represents atelectasis. No evidence of pleural effusion or pneumothorax. IMPRESSION: Elevation of the right hemidiaphragm is seen with likely underlying atelectasis. ACT 112: Negative or not required by law. Electronically signed by: Anthony Odell M.D. 01/16/2024 12:56 PM PG Care Time/CCT Total # of Minutes Spent Total Time Spent with Patient: Total time spent is greater than 50% in coordination of care (as documented) at patient's floor/unit and/or counseling patient: Coding Level of Care Code 85704 IN/OBS CONSULT LVL 5,80M Diagnoses Chronic kidney disease, stage V N18.5 Pleural effusion, right J90 Anemia D64.9 Anemia type: unspecified type Essential hypertension I10 (3) Anemia Anemia type: unspecified type Qualified Code(s): D64.9 - Anemia, unspecified
[2024-01-16] MEDS ORDERED: DOCUSATE SODIUM 100 MG CAP PO PRN (16:58)
[2024-01-16] MEDS: BUMETANIDE 1 MG in SYRINGE 0 ML IV SCH (17:40)
[2024-01-16] MEDS: HEPARIN SOD 5,000 UNIT/0.5 ML VIAL SQ SCH (17:40)
[2024-01-16] MEDS: traMADol HCL 50 MG TABLET PO STA (17:42)
[2024-01-16] MEDS: INSULIN ASPART PER UNIT CHARGE SC SCH (18:04)
[2024-01-16] MEDS: traZODone HCL 50 MG TAB PO SCH (20:46)
[2024-01-16] MEDS: METOPROLOL TARTRATE 25 MG TAB PO SCH (20:47)
[2024-01-16] MEDS: FERROUS SULFATE 325 MG TAB PO SCH (20:49)
--- NOTE | 2024-01-16 21:05 | Pulmonary Consultation ---
Date of Consultation January 16, 2024 Assessment & Plan (1) Recurrent pleural effusion on right: (2) SOB (shortness of breath): (3) Chronic kidney disease, stage V: Plan IMPRESSION: 63-year-old female presenting with dyspnea and orthopnea in the setting of recurrent RIGHT-sided pleural effusion. RECOMMENDATIONS: 1. Pleural effusion - Patient has been evaluated for this multiple times. She has undergone 3 separate thoracentesis procedures with findings consistent with borderline exudative process with neutrophilic predominance and negative cytology. This does continue to recur and patient does tend to receive symptomatic relief after removal. Unfortunately, during the last thoracentesis procedure, the patient did develop pneumothorax ex vacuo which is certainly expected given recurrent thoracentesis procedures. While removal of fluid does provide symptomatic relief, this ultimately is less of a pulmonary issue than it is a continue volume management issue. She certainly is at risk with her heart failure and associated CKD 5. Additionally, the patient is noted to have a cirrhotic liver which certainly could be contributing to reaccumulation of fluid as well. Regardless, this patient is not a great candidate for indwelling intrapleural catheter given the benign nature of her fluid and that she is not at a point where palliative measures would be appropriate. Will defer to nephrology for evaluation of assessing her volume status moving forward. Certainly call this does not seem to be necessarily an acute issue, but if we continue to remove the volume from the pleural space without addressing ongoing recurrence, this will continue to be an issue for the patient. At this point, consideration for symptomatic fluid removal by interventional radiology would be appropriate with follow-up with thoracic surgery for consideration for pleurodesis which may definitively manage this. Otherwise, she does not have any overt pulmonary processes that warrant immediate intervention at this juncture. I did perform bedside ultrasound on the patient which showed a large RIGHT-sided effusion without loculation. There appears to be atelectatic lung as well. No fibrinous stranding appreciated. 3. Shortness of breath - Multifactorial in the 62-year-old female with large RIGHT-sided effusion, CHF, and generalized deconditioning. 4. Stage V CKD - Not currently on dialysis. We will defer this to nephrology moving forward. Thank you for allowing us to participate in the care of this pleasant patient. History of Present Illness Reason for Consultation: Right pleural effusion, required prev thora Requesting Physician: Gab Peno, PA-C Attending Physician: Vinny Dior, PhD, DO History of Present Illness Patient is a 63-year-old female with a complex past medical history consisting of dyslipidemia, sleep apnea, hypertension, diabetes, heart failure with preserved ejection fraction, peripheral arterial disease, diabetic neuropathy, stage V chronic kidney disease, and recurrent RIGHT-sided pleural effusion. Patient is known to the pulmonary clinic and myself for recurrent RIGHT sided pleural effusion for which she was initially evaluated in July of this year. She has subsequently underwent 3 separate thoracentesis procedures with previous findings of borderline exudative effusion with negative cytology x 2. She was admitted most recently on 12/23/2023 with return of dyspnea and recurrent RIGHT-sided effusion. She underwent thoracentesis by interventional radiology and was found to have a pneumo ex vacuo post procedure. She does report that she does receive symptomatic improvement after the thoracentesis. Additionally, she is able to go home off of oxygen therapy at that time. Upon evaluation in room 2831, the patient is awake, alert, and oriented. She reports that over the last few days she has noticed progressively worsening dyspnea which is worse with any minimal exertion. Patient underwent a chest x- ray concerning for recurrence of RIGHT-sided effusion. Pulmonary medicine consulted for evaluation and management. She reports that her urine output has been about the same. She denies any significant peripheral edema. She offers no complaints of chest pain, palpitations, dizziness, lightheadedness, fevers, chills, or hemoptysis. Allergies Allergy/AdvReac Type Severity Reaction Status Date / Time daptomycin Allergy Severe rhabdomyoly Verified 01/16/24 14:20 sis amoxicillin Allergy Intermediate HIVES & N/V Verified 01/16/24 14:20 clavulanic acid Allergy Intermediate HIVES & N/V Verified 01/16/24 14:20 vancomycin Allergy Intermediate pruritus Verified 01/16/24 14:20 sulfamethoxazole AdvReac Severe renal Verified 01/16/24 14:20 [From Bactrim] failure trimethoprim [From Bactrim] AdvReac Severe renal Verified 01/16/24 14:20 failure lisinopril AdvReac Intermediate NAUSEA/VOMI Verified 01/16/24 14:20 TING omeprazole AdvReac Intermediate Nausea Verified 01/16/24 14:20 Home Medications Medication Instructions Recorded Confirmed Type acetaminophen 650 mg 650 mg PO Q8H PRN Pain 10/07/20 01/16/24 History tablet,extended release docusate sodium 100 mg capsule 100 mg PO DAILY PRN Constipation 11/10/21 01/16/24 History (Stool Softener) triamcinolone acetonide 0.5 % 1 applic topical BID PRN skin 11/10/21 01/16/24 Rx topical cream irritation #60 grams loperamide 2 mg capsule (Imodium 2 mg PO Q6H PRN Diarrhea 12/13/21 01/16/24 History A-D) polyethylene glycol 3350 17 17 g PO DAILY PRN Constipation 12/13/21 01/16/24 History gram/dose oral powder (Miralax) Prosthetic Socket replacement #1 ea 08/13/22 01/02/24 Rx aspirin 81 mg tablet,delayed 81 mg PO DAILY 11/15/22 01/16/24 History release (Adult Low Dose Aspirin) diphenhydramine HCl 25 mg tablet 25 mg PO HS PRN Sleep 11/15/22 01/16/24 History (Sleep Aid (diphenhydramine)) ferrous sulfate 325 mg (65 mg 325 mg PO BID 03/11/23 01/16/24 History iron) tablet,delayed release blood glucose control high and low #1 ea 04/03/23 01/02/24 Rx solution (Accu-Chek Guide L1-L2 Control Solution) trazodone 50 mg tablet 25 mg (1/2 x 50 mg) PO HS #45 tabs 05/27/23 01/16/24 Rx Socket replacement and supplies #1 ea 05/30/23 01/02/24 Rx magnesium 500 mg tablet 500 mg PO DAILY 08/16/23 01/16/24 History bumetanide 1 mg tablet 1 mg PO BID #60 tabs 10/22/23 01/16/24 Rx omeprazole 20 mg capsule,delayed 20 mg PO DAILY 90 days #90 caps 11/27/23 01/16/24 Rx release rosuvastatin 40 mg tablet 40 mg PO QAM #90 tabs 11/27/23 01/16/24 Rx ergocalciferol (vitamin D2) 1,250 50,000 unit PO WEEKLY #12 caps 12/20/23 01/16/24 Rx mcg (50,000 unit) capsule amlodipine 10 mg tablet 10 mg PO QAM #90 tabs 01/02/24 01/16/24 Rx tramadol 50 mg tablet 50 mg PO Q8H PRN pain #90 tabs 01/13/24 01/16/24 Rx mecobalamin (vitamin B12) 1,000 1,000 mcg sublingual DAILY #90 tabs 01/16/24 01/16/24 Rx mcg disintegrating tablet,sublingual metoprolol tartrate 25 mg tablet 12.5 mg PO BID 01/16/24 01/16/24 History Patient History Medical History ESRD on dialysis Dyspnea Chronic osteomyelitis Hypertension Non-traumatic rhabdomyolysis (02/2021) Postmenopausal bleeding Anemia of chronic disease Diabetic ulcer of left great toe PAD (peripheral artery disease) S/P right lower extremity angiogram, mechanical thrombectomy of pre-existing superficial femoral artery stent usinh Anjojet Jasper Omni catheter, balloon angioplasty of the superficial femoral artery stent using 5 X 200 mm Irving balloon, balloon angioplasty of the superficial femoral artery 6 X 250 mm IN.PACT drug coated balloon, stent angioplasty of the superficial femoral artery using 5 X 150 mm INOVA bare metal stent, and debridement of the right lateral foot on 11/14/[address] Lomeli. S/P bilateral SFA stenting Morbid obesity BMI 45.7 Clostridium difficile colitis history (~11/2016) -- treated no problems since. Charcot's joint of foot due to diabetes Surgical History History of vascular surgery (04/20/22) L SFA Angio Extremity Unilateral Fem Pop Balloon Atherectomy History of bilateral cataract extraction Status post amputation of toe of right foot (11/14/20) amputation metatarsal w/ toe, R S/P vascular surgery (11/2020) R fem-pop [id number] w/ stent and angioplasty S/P femoral-popliteal bypass surgery S/P angioplasty (10/2019) RT SFA atherectomy/angioplasty w/ MARSHA S/P angioplasty (06/2019) LT SFA angioplastly with MARSHA History of cholecystectomy History of tooth extraction History of esophagogastroduodenoscopy (EGD) S/P epidural steroid injection H/O vascular surgery (01/2020) LT SFA atherectomy, MARSHA w/ supera stenting History of lumpectomy of right breast benign Status post tubal ligation Status post tonsillectomy Family History Mother Rheumatoid arthritis Father Emphysema of lung Peripheral artery disease Aunt Breast cancer MOMS SIDE Colorectal cancer MOMS SIDE Myocardial infarction MOMS SIDE Brother Prostate cancer Sister COPD (chronic obstructive pulmonary disease) Other No family history of adverse response to anesthesia Denies family history of Ovarian cancer CAD (coronary atherosclerotic disease) Social History Smoking Status: Former smoker Tobacco Type: Cigarettes packs per day: 2; Second Hand Exposure: No; Do You Dip or Chew Tobacco: No; Hx Alcohol Use: No Hx Substance Use: No Preferred Language: Occitan Communication Ability: Effective Visual Impairment: No Limitations Hearing Ability: Normal 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 Beliefs That Will Affect Care: None marital status: Current Living Situation: Spouse and Family Current Living Situation Comment: lives with and son current occupational status: disabled How many Children do You have: 1 other: previous worked at [email or web address] Feels Safe at Home: Yes Childhood Exposure to Second-Hand Smoke: Yes (father was a heavy smoker ) Diet: regular Diet Comment: regular caffeine: Yes (very little) during the past year weight has: remained stable Dental Care, Regularly: No Physical Activity Frequency: Does not Exercise Seatbelt Use: always Sunscreen Use: No Assistive Devices: Cane, Denture - Upper, Denture - Lower, Glasses, Prosthesis and Wheelchair Review of Systems Review of Systems: A complete 10 point review of systems was reviewed with the patient with pertinent positives and negatives as per history of present illness. All else were negative. Physical Exam Physical Exam: VITAL SIGNS - Vital signs and nursing notes were reviewed. GENERAL - 63-year-old female appearing her stated age who is in no acute distress. Communicates well with provider and answers questions appropriately. LUNGS - Auscultation reveals decreased breath sounds to the RIGHT sided lung field. No wheezes, rales, or rhonchi appreciated. CARDIAC - RRR with S1/S2. No murmur, rubs, or gallops appreciated. PSYCH - A&Ox3 and cooperates fully with examiner. Pt is very pleasant and interacts well with examiner. Results & Data Results & Data Vital Signs (Past 12 Hours) Vital Signs Temp Pulse Pulse Resp BP BP Pulse Ox 01/16/24 19:30 36.5 C 63 18 150/61 H 97 01/16/24 18:08 01/16/24 17:00 36.4 C L 68 20 164/64 H 96 01/16/24 16:56 68 01/16/24 16:00 75 20 97 01/16/24 15:33 62 17 97 01/16/24 14:00 18 159/72 H 98 01/16/24 13:27 22 145/88 H 96 01/16/24 12:45 72 01/16/24 12:35 94 01/16/24 12:17 68 24 95 01/16/24 12:08 36.4 C L 61 20 154/67 H 88 L O2 Del Method O2 Flow Rate 01/16/24 19:30 Nasal Cannula 3 01/16/24 18:08 Nasal Cannula 3 01/16/24 17:00 Nasal Cannula 3 01/16/24 16:56 01/16/24 16:00 4 01/16/24 15:33 4 01/16/24 14:00 Nasal Cannula 4 01/16/24 13:27 Nasal Cannula 4 01/16/24 12:45 01/16/24 12:35 Nasal Cannula 4 01/16/24 12:17 Nasal Cannula 4 01/16/24 12:08 Room Air PG Care Time/CCT Total # of Minutes Spent Total Time Spent with Patient: Total time spent is greater than 50% in coordination of care (as documented) at patient's floor/unit and/or counseling patient: Coding Level of Care Code 07399 IN/OBS CONSULT LVL 3,45M Diagnoses Recurrent pleural effusion on right J90 SOB (shortness of breath) R06.02 Chronic kidney disease, stage V N18.5
[2024-01-17 07:10] LABS: Basophils # (auto) 0.05 K/uL (0.00-0.20); Basophils % (auto) 0.6 %; Eosinophils # (auto) 0.23 K/uL (0.00-0.50); Eosinophils % (auto) 2.6 %; Hematocrit (blood only) 27.4 % (37.0-47.0); Hemoglobin 8.6 g/dl (12.0-16.0); Immature Granulocytes # (auto) 0.03 K/uL (0.01-0.20); Immature Granulocytes % (auto) 0.3 %; Mean Corpuscular Hgb Conc 31.4 g/dL (32.0-36.0); Mean Corpuscular Volume 89.3 fL (80.0-100.0); Mean Platelet Volume 9.3 fL (9.4-12.4); Monocytes # (auto) 0.59 K/uL (0.11-0.59); Monocytes % (auto) 6.8 %; Neutrophils # (auto) 7.12 K/uL (1.40-6.50); Neutrophils % (auto) 81.7 %; Platelet Count 268 K/uL (130-400); RDW Coefficient of Variation 15.6 % (11.5-14.5); RDW Standard Deviation 50.7 fL (36.4-46.3); Red Blood Count 3.07 M/uL (4.20-5.40); White Blood Count 8.72 K/ul (4.8-10.8)
[2024-01-17 07:33] LABS: Albumin Globulin Ratio 0.8 (0.9-2); Albumin Level 2.9 gm/dl (3.4-5.0); BUN Creatinine Ratio 10.4 (10-20); Bilirubin,Total 0.3 mg/dl (0.2-1.0); Calcium 8.3 mg/dl (8.6-10.3); Creatinine Clr Calc Pharmacy 12.2 ml/min; Est GFR (African American) 9.2 ml/min; Est GFR (Non-African American) 7.9 ml/min; Globulin 3.7 gm/dl (2.5-4.0); Potassium 4.6 mmol/L (3.5-5.1); Total Protein 6.6 gm/dl (6.0-8.3)
[2024-01-17 07:35] LABS: Prothrombin Time 11.2 Seconds (9.0-12.0)
[2024-01-17 07:59] LABS: Ferritin 281.8 ng/ml (8-388)
[2024-01-17] MEDS: traMADol HCL 50 MG TABLET PO PRN (08:12)
[2024-01-17] MEDS: ASPIRIN 81 MG ECTAB PO SCH (08:18)
[2024-01-17] MEDS: amLODIPine BESYLATE 5 MG TAB PO SCH (08:18)
[2024-01-17] MEDS: PANTOprazole 40 MG TAB PO SCH (08:20)
[2024-01-17] MEDS: ROSUVASTATIN CALCIUM 20 MG TAB PO SCH (08:21)
[2024-01-17] MEDS: HEPARIN SOD 5,000 UNIT/0.5 ML VIAL SQ SCH (08:23)
--- NOTE | 2024-01-17 08:50 | Nephrology Progress Note ---
Date of Service January 17, 2024 Assessment & Plan (1) Chronic kidney disease, stage V: Plan: * Patient has no uremic symptoms * Electrolyte balance is acceptable * Continue diuresis w/ Bumex 1 mg po BID * POC discussed w/ vascular surgery this morning. Will plan on IJ TCC Saturday and initiate HD for ongoing volume management (2) Pleural effusion, right: Plan: * Pulmonology consultation reviewed. H/o pneumothorax following thoracentesis. VIR to perform thoracentesis today. Will need HD for ongoing volume management (3) Anemia: Plan: * Iron saturation 17%, ferritin 281 * Will order IV Venofer (4) Essential hypertension: Plan: * BP is mildly elevated. Will monitor Admission and Anticipated Discharge Date Admission Date: January 16, 2024 Subjective Ms. Simpson was evaluated in her hospital room this morning. She is scheduled for her 4th thoracentesis today. She is agreeable to restarting HD to assist w/ volume management Review of Systems Constitutional: no fever Eyes: no worsening vision Ear, Nose, Mouth, Throat: no problem reported Respiratory: no dyspnea Cardiovascular: no chest pain Gastrointestinal: no nausea, no vomiting and no diarrhea/loose stools Genitourinary: no dysuria and no hematuria Musculoskeletal: no back pain Integumentary: no rash Neurologic: no problem reported Physical Exam Constitutional: not in distress Eyes: PERRL, conjunctivae normal, anicteric sclerae ENMT: external ear and nose normal, oropharynx normal Neck: trachea midline, no thyromegaly Respiratory: Auscultation: lungs clear to auscultation bilaterally and + rales Cardiovascular: Rate/Rhythm: + bradycardic Gastrointestinal (Abdomen): normal bowel sounds, soft, nontender, no he patosplenomegaly Skin: no rashes, warm and dry Neurologic: Speech / Cognition: normal speech and normal cognition Psychiatric: Affect: euthymic affect Results & Data Vital Signs (Past 12 Hours) Vital Signs Temp Pulse Pulse Resp BP Pulse Ox O2 Del Method 01/17/24 08:00 36.6 C 68 17 166/76 H 96 Nasal Cannula 01/17/24 07:52 Nasal Cannula 01/17/24 03:58 36.7 C 78 18 155/75 H 93 Nasal Cannula 01/17/24 00:29 77 01/16/24 22:54 Nasal Cannula 01/16/24 22:51 36.5 C 75 18 163/91 H 96 Nasal Cannula O2 Flow Rate 01/17/24 08:00 2 01/17/24 07:52 3 01/17/24 03:58 2 01/17/24 00:29 01/16/24 22:54 3 01/16/24 22:51 3 Laboratory Results Laboratory Results - last 24 hr 01/16/24 01/16/24 01/16/24 12:35 14:30 16:47 WBC 11.07 H RBC 3.25 L Hgb 9.1 L Hct 28.8 L MCV 88.6 MCH 28.0 MCHC 31.6 L RDW Std Deviation 50.0 H RDW Coeff of Adelina 15.8 H Plt Count 277 MPV 9.5 Immature Gran % (Auto) 0.5 Neut % (Auto) 81.8 Lymph % (Auto) 6.6 [place] % (Auto) 7.1 Eos % (Auto) 3.3 Baso % (Auto) 0.7 Neut # (Auto) 9.06 H Lymph # (Auto) 0.73 L [place] # (Auto) 0.79 H Eos # (Auto) 0.36 Baso # (Auto) 0.08 Immature Gran # (Auto) 0.05 PT INR VBG pH 7.36 VBG pCO2 46 VBG pO2 51 VBG HCO3 26 VBG O2 Saturation 83.7 VBG Base Excess 0.1 Sodium 137 Potassium 4.5 Chloride 102 Carbon Dioxide 29 Anion Gap 6 BUN 54 H Creatinine 4.97 H* Est Cr Clr Drug Dosing Not Reportable Est GFR ( Amer) 9.9 Est GFR (Non-Af Amer) 8.6 BUN/Creatinine Ratio 10.9 Glucose 142 H POC Glucose 146 H 135 H Calcium 8.3 L Magnesium 3.0 H Iron TIBC Unsaturated IBC Transferrin % Sat Ferritin Total Bilirubin 0.3 AST 12 L ALT 11 Alkaline Phosphatase 97 Troponin I High Sens 6.8 B-Natriuretic Peptide 493 H Total Protein 7.2 Albumin 3.1 L Globulin 4.1 H Albumin/Globulin Ratio 0.8 L Lipase 17 Procalcitonin 0.18 Adenovirus (PCR) B. pertussis DNA (PCR) B.parapertussis DNA PCR C. pneumoniae DNA (PCR) Coronavirus OC43 (PCR) Coronavirus HKU1 (PCR) Coronavirus 229E (PCR) SARS-CoV-2 (PCR) Coronavirus NL63 (PCR) Human Metapneumovir PCR Influenza Type A (PCR) Influenza Type B (PCR) M. pneumoniae (PCR) Parainfluenza 1 (PCR) Parainfluenza 2 (PCR) Parainfluenza 3 (PCR) Parainfluenza 4 (PCR) RSV (PCR) Entero/Rhino (PCR) 01/16/24 01/16/24 01/17/24 20:06 Unknown 06:42 WBC 8.72 RBC 3.07 L Hgb 8.6 L Hct 27.4 L MCV 89.3 MCH 28.0 MCHC 31.4 L RDW Std Deviation 50.7 H RDW Coeff of Adelina 15.6 H Plt Count 268 MPV 9.3 L Immature Gran % (Auto) 0.3 Neut % (Auto) 81.7 Lymph % (Auto) 8.0 [place] % (Auto) 6.8 Eos % (Auto) 2.6 Baso % (Auto) 0.6 Neut # (Auto) 7.12 H Lymph # (Auto) 0.70 L [place] # (Auto) 0.59 Eos # (Auto) 0.23 Baso # (Auto) 0.05 Immature Gran # (Auto) 0.03 PT 11.2 INR 1.0 VBG pH VBG pCO2 VBG pO2 VBG HCO3 VBG O2 Saturation VBG Base Excess Sodium 138 Potassium 4.6 Chloride 104 Carbon Dioxide 28 Anion Gap 6 BUN 55 H Creatinine 5.30 H* D Est Cr Clr Drug Dosing 12.2 Est GFR ( Amer) 9.2 Est GFR (Non-Af Amer) 7.9 BUN/Creatinine Ratio 10.4 Glucose 117 H POC Glucose 141 H Calcium 8.3 L Magnesium 3.0 H Iron 30 L TIBC 175 L Unsaturated IBC 145 L Transferrin % Sat 17 Ferritin 281.8 Total Bilirubin 0.3 AST 10 L ALT 9 Alkaline Phosphatase 89 Troponin I High Sens B-Natriuretic Peptide Total Protein 6.6 Albumin 2.9 L Globulin 3.7 Albumin/Globulin Ratio 0.8 L Lipase Procalcitonin Adenovirus (PCR) Not Detected B. pertussis DNA (PCR) Not Detected B.parapertussis DNA PCR Not Detected C. pneumoniae DNA (PCR) Not Detected Coronavirus OC43 (PCR) Not Detected Coronavirus HKU1 (PCR) Not Detected Coronavirus 229E (PCR) Not Detected SARS-CoV-2 (PCR) Not Detected Coronavirus NL63 (PCR) Not Detected Human Metapneumovir PCR Not Detected Influenza Type A (PCR) Not Detected Influenza Type B (PCR) Not Detected M. pneumoniae (PCR) Not Detected Parainfluenza 1 (PCR) Not Detected Parainfluenza 2 (PCR) Not Detected Parainfluenza 3 (PCR) Not Detected Parainfluenza 4 (PCR) Not Detected RSV (PCR) Not Detected Entero/Rhino (PCR) Not Detected 01/17/24 08:08 WBC RBC Hgb Hct MCV MCH MCHC RDW Std Deviation RDW Coeff of Adelina Plt Count MPV Immature Gran % (Auto) Neut % (Auto) Lymph % (Auto) [place] % (Auto) Eos % (Auto) Baso % (Auto) Neut # (Auto) Lymph # (Auto) [place] # (Auto) Eos # (Auto) Baso # (Auto) Immature Gran # (Auto) PT INR VBG pH VBG pCO2 VBG pO2 VBG HCO3 VBG O2 Saturation VBG Base Excess Sodium Potassium Chloride Carbon Dioxide Anion Gap BUN Creatinine Est Cr Clr Drug Dosing Est GFR ( Amer) Est GFR (Non-Af Amer) BUN/Creatinine Ratio Glucose POC Glucose 127 H Calcium Magnesium Iron TIBC Unsaturated IBC Transferrin % Sat Ferritin Total Bilirubin AST ALT Alkaline Phosphatase Troponin I High Sens B-Natriuretic Peptide Total Protein Albumin Globulin Albumin/Globulin Ratio Lipase Procalcitonin Adenovirus (PCR) B. pertussis DNA (PCR) B.parapertussis DNA PCR C. pneumoniae DNA (PCR) Coronavirus OC43 (PCR) Coronavirus HKU1 (PCR) Coronavirus 229E (PCR) SARS-CoV-2 (PCR) Coronavirus NL63 (PCR) Human Metapneumovir PCR Influenza Type A (PCR) Influenza Type B (PCR) M. pneumoniae (PCR) Parainfluenza 1 (PCR) Parainfluenza 2 (PCR) Parainfluenza 3 (PCR) Parainfluenza 4 (PCR) RSV (PCR) Entero/Rhino (PCR) Diagnostic Findings Laboratory Results WBC 8.72 K/ul (4.8-10.8) 01/17/24 06:42 RBC 3.07 M/uL (4.20-5.40) L 01/17/24 06:42 Hgb 8.6 g/dl (12.0-16.0) L 01/17/24 06:42 Hct 27.4 % (37.0-47.0) L 01/17/24 06:42 MCV 89.3 fL (80.0-100.0) 01/17/24 06:42 MCH 28.0 pg (25.0-34.0) 01/17/24 06:42 MCHC 31.4 g/dL (32.0-36.0) L 01/17/24 06:42 RDW Std Deviation 50.7 fL (36.4-46.3) H 01/17/24 06:42 RDW Coeff of Adelina 15.6 % (11.5-14.5) H 01/17/24 06:42 Plt Count 268 K/uL (130-400) 01/17/24 06:42 MPV 9.3 fL (9.4-12.4) L 01/17/24 06:42 Immature Gran % (Auto) 0.3 % 01/17/24 06:42 Neut % (Auto) 81.7 % 01/17/24 06:42 Lymph % (Auto) 8.0 % 01/17/24 06:42 [place] % (Auto) 6.8 % 01/17/24 06:42 Eos % (Auto) 2.6 % 01/17/24 06:42 Baso % (Auto) 0.6 % 01/17/24 06:42 Neut # (Auto) 7.12 K/uL (1.40-6.50) H 01/17/24 06:42 Lymph # (Auto) 0.70 K/uL (1.20-3.40) L 01/17/24 06:42 [place] # (Auto) 0.59 K/uL (0.11-0.59) 01/17/24 06:42 Eos # (Auto) 0.23 K/uL (0.00-0.50) 01/17/24 06:42 Baso # (Auto) 0.05 K/uL (0.00-0.20) 01/17/24 06:42 Immature Gran # (Auto) 0.03 K/uL (0.01-0.20) 01/17/24 06:42 PT 11.2 Seconds (9.0-12.0) 01/17/24 06:42 INR 1.0 (0.9-1.1) 01/17/24 06:42 VBG pH 7.36 (7.36-7.41) 01/16/24 12:35 VBG pCO2 46 mmHg (38-50) 01/16/24 12:35 VBG pO2 51 mmHg 01/16/24 12:35 VBG HCO3 26 mmol/L 01/16/24 12:35 VBG O2 Saturation 83.7 % 01/16/24 12:35 VBG Base Excess 0.1 mEq/L 01/16/24 12:35 Sodium 138 mmol/L (136-145) 01/17/24 06:42 Potassium 4.6 mmol/L (3.5-5.1) 01/17/24 06:42 Chloride 104 mmol/L (98-107) 01/17/24 06:42 Carbon Dioxide 28 mmol/L (21-32) 01/17/24 06:42 Anion Gap 6 (3-11) 01/17/24 06:42 BUN 55 mg/dl (6-23) H 01/17/24 06:42 Creatinine 5.30 mg/dl (0.6-1.2) H* D 01/17/24 06:42 Est Cr Clr Drug Dosing 12.2 ml/min 01/17/24 06:42 Est GFR ( Amer) 9.2 ml/min 01/17/24 06:42 Est GFR (Non-Af Amer) 7.9 ml/min 01/17/24 06:42 BUN/Creatinine Ratio 10.4 (10-20) 01/17/24 06:42 Glucose 117 mg/dl (70-99(Fasting)) H 01/17/24 06:42 POC Glucose 127 mg/dl (70-99) H 01/17/24 08:08 Calcium 8.3 mg/dl (8.6-10.3) L 01/17/24 06:42 Magnesium 3.0 mg/dl (1.7-2.4) H 01/17/24 06:42 Iron 30 mcg/dl (35-150) L 01/17/24 06:42 TIBC 175 mcg/dl (250-450) L 01/17/24 06:42 Unsaturated IBC 145 mcg/dl (155-355) L 01/17/24 06:42 Transferrin % Sat 17 % (15-50) 01/17/24 06:42 Ferritin 281.8 ng/ml (8-388) 01/17/24 06:42 Total Bilirubin 0.3 mg/dl (0.2-1.0) 01/17/24 06:42 AST 10 U/L (13-39) L 01/17/24 06:42 ALT 9 U/L (7-52) 01/17/24 06:42 Alkaline Phosphatase 89 U/L (34-104) 01/17/24 06:42 Troponin I High Sens 6.8 pg/ml (0-14) 01/16/24 12:35 B-Natriuretic Peptide 493 pg/ml (0-100) H 01/16/24 12:35 Total Protein 6.6 gm/dl (6.0-8.3) 01/17/24 06:42 Albumin 2.9 gm/dl (3.4-5.0) L 01/17/24 06:42 Globulin 3.7 gm/dl (2.5-4.0) 01/17/24 06:42 Albumin/Globulin Ratio 0.8 (0.9-2) L 01/17/24 06:42 Lipase 17 U/L (11-82) 01/16/24 12:35 Procalcitonin 0.18 ng/ml (0-0.5) 01/16/24 12:35 Adenovirus (PCR) Not Detected (NotDetected) 01/16/24 Unknown B. pertussis DNA (PCR) Not Detected (NotDetected) 01/16/24 Unknown B.parapertussis DNA PCR Not Detected (NotDetected) 01/16/24 Unknown C. pneumoniae DNA (PCR) Not Detected (NotDetected) 01/16/24 Unknown Coronavirus OC43 (PCR) Not Detected (NotDetected) 01/16/24 Unknown Coronavirus HKU1 (PCR) Not Detected (NotDetected) 01/16/24 Unknown Coronavirus 229E (PCR) Not Detected (NotDetected) 01/16/24 Unknown SARS-CoV-2 (PCR) Not Detected (NotDetected) 01/16/24 Unknown Coronavirus NL63 (PCR) Not Detected (NotDetected) 01/16/24 Unknown Human Metapneumovir PCR Not Detected (NotDetected) 01/16/24 Unknown Influenza Type A (PCR) Not Detected (NotDetected) 01/16/24 Unknown Influenza Type B (PCR) Not Detected (NotDetected) 01/16/24 Unknown M. pneumoniae (PCR) Not Detected (NotDetected) 01/16/24 Unknown Parainfluenza 1 (PCR) Not Detected (NotDetected) 01/16/24 Unknown Parainfluenza 2 (PCR) Not Detected (NotDetected) 01/16/24 Unknown Parainfluenza 3 (PCR) Not Detected (NotDetected) 01/16/24 Unknown Parainfluenza 4 (PCR) Not Detected (NotDetected) 01/16/24 Unknown RSV (PCR) Not Detected (NotDetected) 01/16/24 Unknown Entero/Rhino (PCR) Not Detected (NotDetected) 01/16/24 Unknown Impressions Chest X-Ray 01/16/24 12:17 XR chest 1V portable CLINICAL HISTORY: Chest pain, nonspecific TECHNIQUE: Single frontal radiograph of the chest was obtained. Comparison: Comparison is made to chest radiograph 12/25/2023 FINDINGS: No lines and tubes are seen. Calcified aortic knob is seen. Elevation of the right hemidiaphragm is seen. Underlying airspace opacity likely represents atelectasis. No evidence of pleural effusion or pneumothorax. IMPRESSION: Elevation of the right hemidiaphragm is seen with likely underlying atelectasis. ACT 112: Negative or not required by law. Electronically signed by: Anthony Odell M.D. 01/16/2024 12:56 PM PG Care Time/CCT Total # of Minutes Spent Total Time Spent with Patient: Total time spent is greater than 50% in coordination of care (as documented) at patient's floor/unit and/or counseling patient: Coding Level of Care Code 91198 SUB INP/OBS CARE 3/50MIN Diagnoses Chronic kidney disease, stage V N18.5 Pleural effusion, right J90 Anemia D64.9 Anemia type: unspecified type Essential hypertension I10 (3) Anemia Anemia type: unspecified type Qualified Code(s): D64.9 - Anemia, unspecified
--- NOTE | 2024-01-17 10:03 | Consultation ---
Date of Consultation January 17, 2024 Assessment & Plan (1) ELROY (acute kidney injury): Pt with acute on chronic renal failure, nephrology requesting permcath for HD. Procedure, benefits, alternatives, and risks, including but not limited to bleeding, infection, local tissue damage, collapsed lung, blood clot, abnormal heart rhythm, catheter fragmentation, discussed with pt by myself at Dr Le's request. Pt expresses understanding and agreement to proceed. History of Present Illness Reason for Consultation: ELROY Attending Physician: David Roberto MD History of Present Illness 63 yo f with hx of HTN, CKD V, CHF, anemia, DMII, neuropathy, GERD, PAD, dyslipidemia, osteoarthritis, chronic venous insufficiency, RLE BKA, seen in consultation today for permcath insertion as requested by nephrology. Pt states she has severe orthopnea and STUBBS, but is ok if sitting up at rest. Pt admits fatigue, malaise, edema. Denies RODRÍGUEZ, fever, chest pain, abd pain, N/V, rest pain, claudication, other complaints. Currently admitted with pleural effusion, med team recommending initiation of HD for fluid overload. Allergies Allergy/AdvReac Type Severity Reaction Status Date / Time daptomycin Allergy Severe rhabdomyoly Verified 01/16/24 14:20 sis amoxicillin Allergy Intermediate HIVES & N/V Verified 01/16/24 14:20 clavulanic acid Allergy Intermediate HIVES & N/V Verified 01/16/24 14:20 vancomycin Allergy Intermediate pruritus Verified 01/16/24 14:20 sulfamethoxazole AdvReac Severe renal Verified 01/16/24 14:20 [From Bactrim] failure trimethoprim [From Bactrim] AdvReac Severe renal Verified 01/16/24 14:20 failure lisinopril AdvReac Intermediate NAUSEA/VOMI Verified 01/16/24 14:20 TING omeprazole AdvReac Intermediate Nausea Verified 01/16/24 14:20 Home Medications Medication Instructions Recorded Confirmed Type acetaminophen 650 mg 650 mg PO Q8H PRN Pain 10/07/20 01/16/24 History tablet,extended release docusate sodium 100 mg capsule 100 mg PO DAILY PRN Constipation 11/10/21 01/16/24 History (Stool Softener) triamcinolone acetonide 0.5 % 1 applic topical BID PRN skin 11/10/21 01/16/24 Rx topical cream irritation #60 grams loperamide 2 mg capsule (Imodium 2 mg PO Q6H PRN Diarrhea 12/13/21 01/16/24 History A-D) polyethylene glycol 3350 17 17 g PO DAILY PRN Constipation 12/13/21 01/16/24 History gram/dose oral powder (Miralax) Prosthetic Socket replacement #1 ea 08/13/22 01/02/24 Rx aspirin 81 mg tablet,delayed 81 mg PO DAILY 11/15/22 01/16/24 History release (Adult Low Dose Aspirin) diphenhydramine HCl 25 mg tablet 25 mg PO HS PRN Sleep 11/15/22 01/16/24 History (Sleep Aid (diphenhydramine)) ferrous sulfate 325 mg (65 mg 325 mg PO BID 03/11/23 01/16/24 History iron) tablet,delayed release blood glucose control high and low #1 ea 04/03/23 01/02/24 Rx solution (Accu-Chek Guide L1-L2 Control Solution) trazodone 50 mg tablet 25 mg (1/2 x 50 mg) PO HS #45 tabs 05/27/23 01/16/24 Rx Socket replacement and supplies #1 ea 05/30/23 01/02/24 Rx magnesium 500 mg tablet 500 mg PO DAILY 08/16/23 01/16/24 History bumetanide 1 mg tablet 1 mg PO BID #60 tabs 10/22/23 01/16/24 Rx omeprazole 20 mg capsule,delayed 20 mg PO DAILY 90 days #90 caps 11/27/23 01/16/24 Rx release rosuvastatin 40 mg tablet 40 mg PO QAM #90 tabs 11/27/23 01/16/24 Rx ergocalciferol (vitamin D2) 1,250 50,000 unit PO WEEKLY #12 caps 12/20/23 01/16/24 Rx mcg (50,000 unit) capsule amlodipine 10 mg tablet 10 mg PO QAM #90 tabs 01/02/24 01/16/24 Rx tramadol 50 mg tablet 50 mg PO Q8H PRN pain #90 tabs 01/13/24 01/16/24 Rx mecobalamin (vitamin B12) 1,000 1,000 mcg sublingual DAILY #90 tabs 01/16/24 01/16/24 Rx mcg disintegrating tablet,sublingual metoprolol tartrate 25 mg tablet 12.5 mg PO BID 01/16/24 01/16/24 History Patient History Medical History ESRD on dialysis Dyspnea Chronic osteomyelitis Hypertension Non-traumatic rhabdomyolysis (02/2021) Postmenopausal bleeding Anemia of chronic disease Diabetic ulcer of left great toe PAD (peripheral artery disease) S/P right lower extremity angiogram, mechanical thrombectomy of pre-existing superficial femoral artery stent gregh [place] Omni catheter, balloon angioplasty of the superficial femoral artery stent using 5 X 200 mm Ceres balloon, balloon angioplasty of the superficial femoral artery 6 X 250 mm IN.PACT drug coated balloon, stent angioplasty of the superficial femoral artery using 5 X 150 mm INOVA bare metal stent, and debridement of the right lateral foot on 11/14/[address] Lomeli. S/P bilateral SFA stenting Morbid obesity BMI 45.7 Clostridium difficile colitis history (~11/2016) -- treated no problems since. Charcot's joint of foot due to diabetes Surgical History History of vascular surgery (04/20/22) L SFA Angio Extremity Unilateral Fem Pop Balloon Atherectomy History of bilateral cataract extraction Status post amputation of toe of right foot (11/14/20) amputation metatarsal w/ toe, R S/P vascular surgery (11/2020) R fem-pop [id number] w/ stent and angioplasty S/P femoral-popliteal bypass surgery S/P angioplasty (10/2019) RT SFA atherectomy/angioplasty w/ MARSHA S/P angioplasty (06/2019) LT SFA angioplastly with MARSHA History of cholecystectomy History of tooth extraction History of esophagogastroduodenoscopy (EGD) S/P epidural steroid injection H/O vascular surgery (01/2020) LT SFA atherectomy, MARSHA w/ supera stenting History of lumpectomy of right breast benign Status post tubal ligation Status post tonsillectomy Family History Mother Rheumatoid arthritis Father Emphysema of lung Peripheral artery disease Aunt Breast cancer MOMS SIDE Colorectal cancer MOMS SIDE Myocardial infarction MOMS SIDE Brother Prostate cancer Sister COPD (chronic obstructive pulmonary disease) Other No family history of adverse response to anesthesia Denies family history of Ovarian cancer CAD (coronary atherosclerotic disease) Social History Smoking Status: Former smoker Tobacco Type: Cigarettes packs per day: 2; Second Hand Exposure: No; Do You Dip or Chew Tobacco: No; Hx Alcohol Use: No Hx Substance Use: No Preferred Language: Syriac Communication Ability: Effective Visual Impairment: No Limitations Hearing Ability: Normal Rail Gang Supervisor Required: No Beliefs That Will Affect Care: None marital status: Current Living Situation: Spouse and Family Current Living Situation Comment: lives with and son current occupational status: disabled How many Children do You have: 1 other: previous worked at [employer] Feels Safe at Home: Yes Childhood Exposure to Second-Hand Smoke: Yes (father was a heavy smoker ) Diet: regular Diet Comment: regular caffeine: Yes (very little) during the past year weight has: remained stable Dental Care, Regularly: No Physical Activity Frequency: Does not Exercise Seatbelt Use: always Sunscreen Use: No Assistive Devices: Cane, Prosthesis, Walker and Wheelchair Review of Systems Review of Systems: All systems reviewed & are unremarkable except as noted in HPI & below Physical Exam Constitutional: WD/WN, vitals as above cooperative and comfortable; not in distress ENMT: Ears: no hearing impairment Neck: trachea midline Respiratory: normal respiratory effort (on oxygen, sitting 90 degrees) Auscultation: + diminished lung sounds and + rales Cardiovascular: Rate/Rhythm: regular rate and regular rhythm Vessels: posterior tibial pulses present (LLE only) and dorsalis pedis pulses present (LLE only); + abnormal peripheral pulses Extremities: normal capillary refill (LLE, RLE BKA) and + edema Gastrointestinal (Abdomen): Inspection/Auscultation: abdomen normal to inspection and normal bowel sounds Percussion/Palpation: abdomen soft; abdomen nontender Musculoskeletal: no cyanosis or clubbing, extremities motor strength 5/5 (RLE BKA noted) Skin: no rashes, warm and dry Neurologic: moves all extremities and awake; no focal motor deficits and not confused Psychiatric: A+Ox3, euthymic affect Results & Data Vital Signs (Past 12 Hours) Vital Signs Temp Pulse Pulse Resp BP Pulse Ox O2 Del Method 01/17/24 08:00 36.6 C 68 17 166/76 H 96 Nasal Cannula 01/17/24 07:52 Nasal Cannula 01/17/24 03:58 36.7 C 78 18 155/75 H 93 Nasal Cannula 01/17/24 00:29 77 01/16/24 22:54 Nasal Cannula 01/16/24 22:51 36.5 C 75 18 163/91 H 96 Nasal Cannula O2 Flow Rate 01/17/24 08:00 2 01/17/24 07:52 3 01/17/24 03:58 2 01/17/24 00:29 01/16/24 22:54 3 01/16/24 22:51 3
--- NOTE | 2024-01-17 11:14 | Hospitalist Progress Note ---
Date of Service January 17, 2024 Assessment & Plan (1) Hypoxia: Plan: Acute respiratory failure with hypoxia present on admission. Oxygen currently at 2 L/min per nasal cannula to maintain saturation greater than 90%. Hopefully can wean off quickly after right thoracentesis. (2) Hypervolemia associated with renal insufficiency: Plan: Nephrology consultation and recommendations appreciated. She will undergo placement of tunneled dialysis catheter on Saturday and then initiate hemodialysis. Serial labs (3) Pleural effusion, right: Plan: Recurrent. She has had multiple previous right side thoracentesis procedures. This will be done again today, January 16. Hopefully initiation of hemodialysis will control volume status and prevent reaccumulation. (4) Stage 5 chronic kidney disease not on chronic dialysis: Plan: Creatinine has risen 5.3. She has been seen by nephrology. She is not agreeable to proceed with dialysis catheter placement and initiation of hemodialysis. Vascular surgery has been consulted for tunneled dialysis catheter placement on January 19 (5) Essential hypertension: Plan: Stable. Continue current medical management with amlodipine and metoprolol (6) Diabetes mellitus type 2 with complications: Plan: ADA diet. Sliding scale coverage for now. Basal insulin is on hold Plan Hopeful discharge back to home sometime next week Admission and Anticipated Discharge Date Admission Date: January 16, 2024 Subjective Alert and oriented. No distress. Case discussed with nephrology. She will undergo right thoracentesis by interventional radiology today, January 16. Tunneled dialysis catheter will be placed Saturday by vascular surgery since she is now agreeable to start hemodialysis. Review of Systems 2 Review of Systems: Constitutional-no fever or chills ENT-no blurred vision, no double vision, no epistaxis, no sore throat Respiratory-no cough, no wheezing. Dyspnea on exertion Cardiac-no palpitations, no chest pain, no syncope GI-no nausea, vomiting, diarrhea, melena, hematochezia -no urinary retention, no urinary incontinence, no dysuria, no hematuria Musculoskeletal-no joint pain, no muscle tenderness Skin-no bruising, no rashes, no pruritus Neuro-no isolated weakness, no paresthesia, no weakness Psych-no depression, no anxiety Physical Exam 2 Physical Exam: General-alert and oriented x3, no fever, no chills HEENT-head atraumatic and normocephalic, pupils equal and reactive to light, extraocular muscles intact Neck-no lymphadenopathy or thyromegaly, trachea midline Chest-dullness and diminished breath sounds at the right base. No rales, wheezing or rhonchi Cardiac-regular rate and rhythm, normal S1 and S2 Abdomen-normal bowel sounds, no hepatosplenomegaly Extremities-no cyanosis, clubbing, or edema Neuro-cranial nerves II through XII intact, motor and sensory function within normal limits, strength symmetrical, no focal deficits Psych-normal affect, normal mood Results & Data Results & Data Vital Signs (Past 12 Hours) Vital Signs Temp Pulse Pulse Resp BP Pulse Ox O2 Del Method 01/17/24 10:48 69 01/17/24 08:00 36.6 C 68 17 166/76 H 96 Nasal Cannula 01/17/24 07:52 Nasal Cannula 01/17/24 03:58 36.7 C 78 18 155/75 H 93 Nasal Cannula 01/17/24 00:29 77 O2 Flow Rate 01/17/24 10:48 01/17/24 08:00 2 01/17/24 07:52 3 01/17/24 03:58 2 01/17/24 00:29 Laboratory Results 01/17/24 06:42 01/17/24 06:42 PG Care Time/CCT Total # of Minutes Spent Total Time Spent with Patient: Total time spent is greater than 50% in coordination of care (as documented) at patient's floor/unit and/or counseling patient: Coding Level of Care Code 39443 SUB INP/OBS CARE 3/50MIN Diagnoses Hypoxia R09.02 Hypervolemia associated with renal insufficiency E87.70; N28.9 Pleural effusion, right J90 Stage 5 chronic kidney disease not on chronic dialysis N18.5 Essential hypertension I10 Diabetes mellitus type 2 with complications E11.8
[2024-01-17] MEDS: IRON SUCROSE 200 MG in 0.9 % SODIUM CHLORIDE 100 ML IV SCH (11:46)
[2024-01-18 07:36] LABS: Basophils # (auto) 0.06 K/uL (0.00-0.20); Basophils % (auto) 0.8 %; Eosinophils # (auto) 0.38 K/uL (0.00-0.50); Eosinophils % (auto) 5.1 %; Hemoglobin 8.3 g/dl (12.0-16.0); Immature Granulocytes # (auto) 0.09 K/uL (0.01-0.20); Immature Granulocytes % (auto) 1.2 %; Lymphocytes # (auto) 0.99 K/uL (1.20-3.40); Lymphocytes % (auto) 13.2 %; Mean Corpuscular Hemoglobin 27.3 pg (25.0-34.0); Mean Corpuscular Hgb Conc 30.7 g/dL (32.0-36.0); Mean Corpuscular Volume 88.8 fL (80.0-100.0); Mean Platelet Volume 9.2 fL (9.4-12.4); Monocytes % (auto) 9.3 %; Neutrophils % (auto) 70.4 %; Platelet Count 247 K/uL (130-400); RDW Coefficient of Variation 15.7 % (11.5-14.5); RDW Standard Deviation 50.4 fL (36.4-46.3); Red Blood Count 3.04 M/uL (4.20-5.40); White Blood Count 7.52 K/ul (4.8-10.8)
[2024-01-18 08:42] LABS: BUN Creatinine Ratio 10.8 (10-20); Calcium 8.4 mg/dl (8.6-10.3); Creatinine Clr Calc Pharmacy 12.3 ml/min; Est GFR (African American) 9.2 ml/min; Est GFR (Non-African American) 7.9 ml/min; Potassium 4.5 mmol/L (3.5-5.1)
[2024-01-18] MEDS ORDERED: POLYETHYLENE (MIRALAX) 17 GM PACK PO PRN (10:46)
[2024-01-18] MEDS: oxyCODONE HCL IR 5 MG TAB (IMMEDIATE RELEASE) PO PRN (11:48)
--- NOTE | 2024-01-18 12:03 | Nephrology Progress Note ---
Date of Service January 18, 2024 Assessment & Plan (1) End-stage renal disease needing dialysis: (2) Shortness of breath: (3) Pleural effusion, right: (4) Essential hypertension: (5) Anemia: Plan 63 y o F with stage 5 CKD/ESKD, admitted with shortness of breath secondary to r ight-sided pleural effusion. Has been having repeated right-sided pleural effusion this is the second admission within few weeks. Has advanced CKD, baseline creatinine lately staying above 5. Plan to start on dialysis with tunneled dialysis catheter Saturday, previously she repeatedly refused AV fistula. Overall clinically stable despite having significant right-sided pleural effusion. -- Plan to have tunneled dialysis catheter Saturday and then first dialysis after. Waiting on IR for right-sided thoracentesis. -- Will check iron study with next lab -- Right arm nephrology precaution for future AV fistula. -- Dose medications for EGFR less than 10 Admission and Anticipated Discharge Date Admission Date: January 16, 2024 Saran Angel was seen and evaluated this morning. She was sitting up in bed comfortable but reports some getting short of breath with activity or exertion. Kidney function staying stable electrolyte acceptable. Has been voiding normally. Scheduled to have tunneled dialysis catheter Saturday. Review of Systems Review of Systems: Detailed review of system was done and pertinent positives and negatives are mentioned above. Physical Exam Constitutional: WD/WN, vitals as above no acute distress Respiratory: no respiratory distress Auscultation: + diminished lung sounds (Diminished breath sound and rales on the left side) Cardiovascular: Rate/Rhythm: regular rate and regular rhythm Heart Sounds: normal S1 and normal S2 Extremities: + edema (left LE edema, rt BKA ) Musculoskeletal: Right below-knee amputation Skin: no rashes, warm and dry Neurologic: no focal motor deficits Psychiatric: Orientation: alert and oriented x 3 Affect: euthymic affect Results & Data Vital Signs (Past 12 Hours) Vital Signs Temp Pulse Pulse Resp BP Pulse Ox O2 Del Method 01/18/24 11:34 36.6 C 64 20 152/71 H 97 Nasal Cannula 01/18/24 08:07 36.6 C 79 20 156/73 H 97 Nasal Cannula 01/18/24 07:38 Nasal Cannula 01/18/24 07:12 66 01/18/24 03:07 36.5 C 64 20 158/68 H 97 Nasal Cannula O2 Flow Rate 01/18/24 11:34 2 01/18/24 08:07 2 01/18/24 07:38 2 01/18/24 07:12 01/18/24 03:07 2 PG Care Time/CCT Total # of Minutes Spent Total Time Spent with Patient: Total time spent is greater than 50% in coordination of care (as documented) at patient's floor/unit and/or counseling patient: Coding Level of Care Code 14338 SUB INP/OBS CARE 2/35MIN Diagnoses End-stage renal disease needing dialysis N18.6; Z99.2 Shortness of breath R06.02 Pleural effusion, right J90 Essential hypertension I10 Anemia D64.9 Anemia type: unspecified type (5) Anemia Anemia type: unspecified type Qualified Code(s): D64.9 - Anemia, unspecified
--- NOTE | 2024-01-18 12:46 | Hospitalist Progress Note ---
Date of Service January 18, 2024 Assessment & Plan (1) Hypoxia: Plan: Acute respiratory failure with hypoxia present on admission. Oxygen currently at 2 L/min per nasal cannula to maintain saturation greater than 90%. Hopefully can wean off quickly after right thoracentesis. (2) Hypervolemia associated with renal insufficiency: Plan: Nephrology consultation and recommendations appreciated. She will undergo placement of tunneled dialysis catheter on Saturday and then initiate hemodialysis. Serial labs (3) Pleural effusion, right: Plan: Recurrent. She has had multiple previous right side thoracentesis procedures. Thoracentesis likely on Saturday.. Hopefully initiation of hemodialysis will control volume status and prevent reaccumulation. For HD cath on Saturday (4) Stage 5 chronic kidney disease not on chronic dialysis: Plan: Creatinine has risen 5.3. She has been seen by nephrology. She is not agreeable to proceed with dialysis catheter placement and initiation of hemodialysis. Vascular surgery has been consulted for tunneled dialysis catheter placement on January 19 (5) Essential hypertension: Plan: Stable. Continue current medical management with amlodipine and metoprolol (6) Diabetes mellitus type 2 with complications: Plan: ADA diet. Sliding scale coverage for now. Basal insulin is on hold Admission and Anticipated Discharge Date Admission Date: January 16, 2024 Subjective No nausea or vomiting, tolerating PO, no BM in 2 days but says that's normal for her. chronic pain / tramadol not effective Results & Data Results & Data Vital Signs (Past 12 Hours) Vital Signs Temp Pulse Pulse Resp BP Pulse Ox O2 Del Method 01/18/24 11:34 36.6 C 64 20 152/71 H 97 Nasal Cannula 01/18/24 08:07 36.6 C 79 20 156/73 H 97 Nasal Cannula 01/18/24 07:38 Nasal Cannula 01/18/24 07:12 66 01/18/24 03:07 36.5 C 64 20 158/68 H 97 Nasal Cannula O2 Flow Rate 01/18/24 11:34 2 01/18/24 08:07 2 01/18/24 07:38 2 01/18/24 07:12 01/18/24 03:07 2 Coding Level of Care Code 36456 SUB INP/OBS CARE 2/35MIN Diagnoses Hypoxia R09.02 Hypervolemia associated with renal insufficiency E87.70; N28.9 Pleural effusion, right J90 Stage 5 chronic kidney disease not on chronic dialysis N18.5 Essential hypertension I10 Diabetes mellitus type 2 with complications E11.8
--- NOTE | 2024-01-18 13:39 | Hospitalist Progress Note ---
Date of Service January 18, 2024 Assessment & Plan Admission and Anticipated Discharge Date Admission Date: January 16, 2024 Physical Exam Physical Exam: Resting comfortably No SOB at rest on O2 Lungs decreased breath sounds on right, left clear Heart RRR PA Soft, NT, ND, +BS Skin no rash Results & Data Results & Data Vital Signs (Past 12 Hours) Vital Signs Temp Pulse Pulse Resp BP Pulse Ox O2 Del Method 01/18/24 11:34 36.6 C 64 20 152/71 H 97 Nasal Cannula 01/18/24 08:07 36.6 C 79 20 156/73 H 97 Nasal Cannula 01/18/24 07:38 Nasal Cannula 01/18/24 07:12 66 01/18/24 03:07 36.5 C 64 20 158/68 H 97 Nasal Cannula O2 Flow Rate 01/18/24 11:34 2 01/18/24 08:07 2 01/18/24 07:38 2 01/18/24 07:12 01/18/24 03:07 2 PG Care Time/CCT Total # of Minutes Spent Total Time Spent with Patient: Total time spent is greater than 50% in coordination of care (as documented) at patient's floor/unit and/or counseling patient: Coding Level of Care Code 13981 SUB INP/OBS CARE 2/35MIN
[2024-01-19 07:31] LABS: Calcium 8.1 mg/dl (8.6-10.3); Potassium 4.3 mmol/L (3.5-5.1)
[2024-01-19 07:38] LABS: Hematocrit (blood only) 26.3 % (37.0-47.0); Hemoglobin 8.3 g/dl (12.0-16.0); Mean Corpuscular Hemoglobin 27.7 pg (25.0-34.0); Mean Corpuscular Hgb Conc 31.6 g/dL (32.0-36.0); Mean Corpuscular Volume 87.7 fL (80.0-100.0); Mean Platelet Volume 9.7 fL (9.4-12.4); Platelet Count 224 K/uL (130-400); RDW Coefficient of Variation 15.5 % (11.5-14.5); RDW Standard Deviation 49.3 fL (36.4-46.3); White Blood Count 8.32 K/ul (4.8-10.8)
[2024-01-19 07:39] LABS: Basophils # (auto) 0.05 K/uL (0.00-0.20); Basophils % (auto) 0.6 %; Eosinophils # (auto) 0.35 K/uL (0.00-0.50); Eosinophils % (auto) 4.2 %; Immature Granulocytes # (auto) 0.13 K/uL (0.01-0.20); Immature Granulocytes % (auto) 1.6 %; Lymphocytes # (auto) 1.03 K/uL (1.20-3.40); Lymphocytes % (auto) 12.4 %; Monocytes # (auto) 0.74 K/uL (0.11-0.59); Monocytes % (auto) 8.9 %; Neutrophils # (auto) 6.02 K/uL (1.40-6.50); Neutrophils % (auto) 72.3 %
[2024-01-19 07:53] LABS: BUN Creatinine Ratio 10.3 (10-20); Creatinine Clr Calc Pharmacy 12.3 ml/min; Est GFR (African American) 9.4 ml/min; Est GFR (Non-African American) 8.1 ml/min
[2024-01-19] MEDS: hydrALAZINE TAB 50 MG TAB PO SCH (10:09)
[2024-01-19] MEDS: oxyCODONE HCL IR 5 MG TAB (IMMEDIATE RELEASE) PO PRN (12:40)
--- NOTE | 2024-01-19 12:50 | Nephrology Progress Note ---
Date of Service January 19, 2024 Assessment & Plan (1) End-stage renal disease needing dialysis: (2) Shortness of breath: (3) Pleural effusion, right: (4) Essential hypertension: (5) Anemia: Plan 63 y o F with stage 5 CKD/ESKD, admitted with shortness of breath secondary to r ight-sided pleural effusion. Has been having repeated right-sided pleural effusion this is the second admission within few weeks. Has advanced CKD, baseline creatinine lately staying above 5. Plan to start on dialysis with tunneled dialysis catheter Saturday, previously she repeatedly refused AV fistula. Overall clinically stable despite having significant right-sided pleural effusion. Unclear how either she will have thoracentesis prior to the tunneled dialysis catheter placement -- Plan to have tunneled dialysis catheter Saturday although there is some concern that she may not be able to lie flat for the procedure with significant right sided pleural effusion. -- Start on Venofer 20 mg daily x 5 doses and Epogen after started on dialysis. -- Right arm nephrology precaution for future AV fistula. -- Dose medications for EGFR less than 10 -- Consult case management to set up outpatient dialysis at [facility] Admission and Anticipated Discharge Date Admission Date: January 16, 2024 Saran Angel was seen and evaluated this morning. She has been otherwise doing well and asymptomatic but gets easily short of breath with activity or exertion. Kidney function staying stable electrolyte acceptable. Has been voiding normally. Scheduled to have tunneled dialysis catheter Saturday. Review of Systems Review of Systems: Detailed review of system was done and pertinent positives and negatives are mentioned above. Physical Exam Constitutional: WD/WN, vitals as above no acute distress Respiratory: no respiratory distress Auscultation: + diminished lung sounds (Diminished breath sound and rales on the left side) Cardiovascular: Rate/Rhythm: regular rate and regular rhythm Heart Sounds: normal S1 and normal S2 Extremities: + edema (left LE edema, rt BKA ) Skin: no rashes, warm and dry Neurologic: no focal motor deficits Psychiatric: Orientation: alert and oriented x 3 Affect: euthymic affect Results & Data Vital Signs (Past 12 Hours) Vital Signs Temp Pulse Pulse Resp BP BP Pulse Ox 01/19/24 11:37 36.5 C 65 18 147/64 H 98 01/19/24 09:14 01/19/24 07:22 72 01/19/24 06:33 36.7 C 75 20 164/75 H 94 01/19/24 03:57 36.8 C 69 20 163/71 H 99 O2 Del Method O2 Flow Rate 01/19/24 11:37 Nasal Cannula 2 01/19/24 09:14 Nasal Cannula 2 01/19/24 07:22 01/19/24 06:33 Nasal Cannula 2 01/19/24 03:57 Nasal Cannula 2 PG Care Time/CCT Total # of Minutes Spent Total Time Spent with Patient: Total time spent is greater than 50% in coordination of care (as documented) at patient's floor/unit and/or counseling patient: Coding Level of Care Code 91717 SUB INP/OBS CARE 235MIN Diagnoses End-stage renal disease needing dialysis N18.6; Z99.2 Shortness of breath R06.02 Pleural effusion, right J90 Essential hypertension I10 Anemia D64.9 Anemia type: unspecified type (5) Anemia Anemia type: unspecified type Qualified Code(s): D64.9 - Anemia, unspecified
--- NOTE | 2024-01-19 13:41 | Hospitalist Progress Note ---
Date of Service January 19, 2024 Assessment & Plan (1) Hypoxia: Plan: Acute respiratory failure with hypoxia present on admission. Oxygen currently at 2 L/min per nasal cannula to maintain saturation greater than 90%. Hopefully can wean off quickly after right thoracentesis. (2) Hypervolemia associated with renal insufficiency: Plan: Nephrology consultation and recommendations appreciated. She will undergo placement of tunneled dialysis catheter on Saturday and then initiate hemodialysis. Serial labs (3) Pleural effusion, right: Plan: Recurrent. She has had multiple previous right side thoracentesis procedures. Thoracentesis likely on Saturday. Hopefully initiation of hemodialysis will control volume status and prevent reaccumulation. For HD cath on Saturday (4) Stage 5 chronic kidney disease not on chronic dialysis: Plan: Creatinine has risen 5.3. She has been seen by nephrology. She is agreeable to proceed with dialysis catheter placement and initiation of hemodialysis. Vascular surgery has been consulted for tunneled dialysis catheter placement on January 19 (5) Essential hypertension: Plan: Not adequately controlled, added hydralazine, cont amlodipine and metoprolol Monitor and adjust as needed, once HD initiated likely better controlled due to volume management (6) Diabetes mellitus type 2 with complications: Plan: ADA diet. Sliding scale coverage for now. Basal insulin is on hold Admission and Anticipated Discharge Date Admission Date: January 16, 2024 Subjective No SOB at rest, aware of HD cath procedure tomorrow, no complaints Physical Exam Physical Exam: Resting comfortably No SOB at rest on O2 Lungs decreased breath sounds on right, left clear Heart RRR PA Soft, NT, ND, +BS Skin no rash Results & Data Results & Data Vital Signs (Past 12 Hours) Vital Signs Temp Pulse Pulse Resp BP BP Pulse Ox 01/19/24 12:54 67 162/73 H 97 01/19/24 11:37 36.5 C 65 18 147/64 H 98 01/19/24 09:14 01/19/24 07:22 72 01/19/24 06:33 36.7 C 75 20 164/75 H 94 01/19/24 03:57 36.8 C 69 20 163/71 H 99 O2 Del Method O2 Flow Rate 01/19/24 12:54 Nasal Cannula 1 01/19/24 11:37 Nasal Cannula 2 01/19/24 09:14 Nasal Cannula 2 01/19/24 07:22 01/19/24 06:33 Nasal Cannula 2 01/19/24 03:57 Nasal Cannula 2 PG Care Time/CCT Total # of Minutes Spent Total Time Spent with Patient: Total time spent is greater than 50% in coordination of care (as documented) at patient's floor/unit and/or counseling patient: Coding Level of Care Code 20302 SUB INP/OBS CARE 2/35MIN Diagnoses Hypoxia R09.02 Hypervolemia associated with renal insufficiency E87.70; N28.9 Pleural effusion, right J90 Stage 5 chronic kidney disease not on chronic dialysis N18.5 Essential hypertension I10 Diabetes mellitus type 2 with complications E11.8
[2024-01-20] MEDS ORDERED: Nursing to Pharmacy Communication SCH ×2 (07:15→09:45)
[2024-01-20] MEDS: INSULIN ASPART PER UNIT CHARGE SC SCH ×2 (07:15→12:26)
[2024-01-20 07:42] LABS: BUN Creatinine Ratio 9.7 (10-20); Calcium 8.2 mg/dl (8.6-10.3); Creatinine Clr Calc Pharmacy 11.7 ml/min; Est GFR (African American) 8.9 ml/min; Est GFR (Non-African American) 7.6 ml/min
--- NOTE | 2024-01-20 07:49 | History & Physical Bridge Note ---
Date of Service January 20, 2024 History & Physical Bridge Note I have examined the patient, reviewed the History & Physical and in the interval since the performance of the History & Physical I have noted the following changes of clinical significance: no changes noted
[2024-01-20] MEDS: SODIUM CHLORIDE 0.9% 1,000 ML IV SCH (08:01)
[2024-01-20] MEDS: CLINDAMYCIN/D5W 900 MG/50 ML BAG IV SCH (08:04)
[2024-01-20] MEDS: fentaNYL citrate PF 100 MCG/2 ML VIAL ONE (08:30)
[2024-01-20] MEDS: LIDOCAINE 1% LOCAL 20 ML VIAL ONE (09:04)
[2024-01-20] MEDS: MIDAZOLAM HCL 1 MG/ML 2ML VIAL ONE (09:05)
--- NOTE | 2024-01-20 09:10 | Pre Anesthesia Assessment ---
Date of Service January 20, 2024 Pre Sedation Assessment Vital Signs Temp Pulse Pulse Pulse Resp BP Pulse Ox 01/20/24 09:05 69 18 146/66 H 100 01/20/24 09:00 72 18 166/65 H 100 01/20/24 08:55 70 18 156/76 H 100 01/20/24 08:50 70 18 160/86 H 100 01/20/24 08:45 71 18 167/77 H 100 01/20/24 08:40 72 18 163/77 H 100 01/20/24 08:35 77 20 178/70 H 100 01/20/24 08:30 75 20 175/72 H 100 01/20/24 08:25 77 20 186/73 H 100 01/20/24 07:30 36.8 C 75 20 159/53 H 93 01/20/24 07:24 77 01/20/24 07:12 01/20/24 04:04 36.5 C 88 18 153/70 H 93 01/19/24 23:00 36.6 C 81 18 157/73 H 95 01/19/24 19:17 01/19/24 19:00 36.6 C 76 18 173/92 H 95 01/19/24 16:03 36.7 C 69 18 148/76 H 97 01/19/24 13:46 68 01/19/24 12:54 67 162/73 H 97 01/19/24 11:37 36.5 C 65 18 147/64 H 98 01/19/24 09:14 O2 Del Method O2 Flow Rate 01/20/24 09:05 Oxymask 4 01/20/24 09:00 Oxymask 4 01/20/24 08:55 Oxymask 4 01/20/24 08:50 Oxymask 4 01/20/24 08:45 Oxymask 4 01/20/24 08:40 Oxymask 4 01/20/24 08:35 Oxymask 4 01/20/24 08:30 Oxymask 4 01/20/24 08:25 Oxymask 4 01/20/24 07:30 Nasal Cannula 1 01/20/24 07:24 01/20/24 07:12 Nasal Cannula 1 01/20/24 04:04 Nasal Cannula 1 01/19/24 23:00 Nasal Cannula 1 01/19/24 19:17 Room Air 01/19/24 19:00 Nasal Cannula 1 01/19/24 16:03 Nasal Cannula 2 01/19/24 13:46 01/19/24 12:54 Nasal Cannula 1 01/19/24 11:37 Nasal Cannula 2 01/19/24 09:14 Nasal Cannula 2 Cardiovascular RRR, no murmur, no edema Respiratory normal respiratory effort, lungs clear to auscultation Pre-Sedation Airway Assessment Smoking Status: Former smoker Hx Sleep Apnea: No Hx Difficult Intubation: No Short, Thick Neck: Yes Thyromental Distance: > or= 3.5 Finger Breadths Oral Cavity: + WNL Mallampati Class: III ASA: ASA4 NPO Status Date of Last Intake of Fluids: 01/19/24 Time of Last Intake of Fluids: 23:00 Date of Last Intake of Solid Food: 01/19/24 Time of Last Intake of Solid Foods: 23:00 Procedure Planning Contraindications for Sedation: none Current Medications Reviewed: Yes Notes The planned sedation has been discussed with the patient. Informed Consent was obtained. I have identified the patient, determined the appropriateness of sedation and have assessed the patient immediately prior to the procedure. All medicine(s) and interventions are by my order.
--- NOTE | 2024-01-20 09:13 | Post Anesthesia Assessment ---
Date of Service January 20, 2024 Post Sedation Assessment Vital Signs Temp Pulse Pulse Pulse Resp BP Pulse Ox 01/20/24 09:07 70 18 147/70 H 100 01/20/24 09:05 69 18 146/66 H 100 01/20/24 09:00 72 18 166/65 H 100 01/20/24 08:55 70 18 156/76 H 100 01/20/24 08:50 70 18 160/86 H 100 01/20/24 08:45 71 18 167/77 H 100 01/20/24 08:40 72 18 163/77 H 100 01/20/24 08:35 77 20 178/70 H 100 01/20/24 08:30 75 20 175/72 H 100 01/20/24 08:25 77 20 186/73 H 100 01/20/24 07:30 36.8 C 75 20 159/53 H 93 01/20/24 07:24 77 01/20/24 07:12 01/20/24 04:04 36.5 C 88 18 153/70 H 93 01/19/24 23:00 36.6 C 81 18 157/73 H 95 01/19/24 19:17 01/19/24 19:00 36.6 C 76 18 173/92 H 95 01/19/24 16:03 36.7 C 69 18 148/76 H 97 01/19/24 13:46 68 01/19/24 12:54 67 162/73 H 97 01/19/24 11:37 36.5 C 65 18 147/64 H 98 01/19/24 09:14 O2 Del Method O2 Flow Rate 01/20/24 09:07 Oxymask 4 01/20/24 09:05 Oxymask 4 01/20/24 09:00 Oxymask 4 01/20/24 08:55 Oxymask 4 01/20/24 08:50 Oxymask 4 01/20/24 08:45 Oxymask 4 01/20/24 08:40 Oxymask 4 01/20/24 08:35 Oxymask 4 01/20/24 08:30 Oxymask 4 01/20/24 08:25 Oxymask 4 01/20/24 07:30 Nasal Cannula 1 01/20/24 07:24 01/20/24 07:12 Nasal Cannula 1 01/20/24 04:04 Nasal Cannula 1 01/19/24 23:00 Nasal Cannula 1 01/19/24 19:17 Room Air 01/19/24 19:00 Nasal Cannula 1 01/19/24 16:03 Nasal Cannula 2 01/19/24 13:46 01/19/24 12:54 Nasal Cannula 1 01/19/24 11:37 Nasal Cannula 2 01/19/24 09:14 Nasal Cannula 2 Recovery Score Activity: Moves 4 extremities Respiration: Deep Breath/Cough Circulation: +/-20% PreAnes Value Consciousness: Fully Awake Oxygen Saturation: <90% w/ supp O2 Post Anesthesia Score: 8 Discharge Sedation Level of Care: Fast Track Phase II Post Sedation Plan On clinical assessment, the patient appears to have tolerated the sedation without complications. Patient is recovering as anticipated. Patient will continue to be monitored by nursing and may be discharged when sedation discharge criteria are met per below protocol. Upon Completions of procedure up to 15 minutes continue every 5 minute vital signs and the P.A.R. score; then discharge to a Phase I or Fast Track to Phase II per the following guidelines: * Discharge Patient to appropriate Phase II area if PAR is 8 or greater or return to pre- procedure baseline. The post - procedure orders will be as directed. * If PAR score is less than 8 or not return to pre-procedure baseline then patient will follow Phase I monitoring till PAR is reached for Phase II. The Phase I may be done in procedure room or may call to secure a Phase I area. * If naloxone or flumazenil are used for reversal, hold in Phase I for continued monitoring from when last reversal dose was given for a minimum of 60 minutes or longer pending the nurse and/or physician discretion of patient condition before discharge to Phase II. Please call the Sedation Physician to re-evaluate and complete post-note for discharge to Phase II area. Do NOT discharge from procedure sedation or Phase 1 until post- sedation evaluation note is complete by procedure /sedation MD Sedation Discharge Instructions to be given to the patient at discharge to home.
--- NOTE | 2024-01-20 09:16 | Procedure Note ---
Angiogram Post Procedure Fluoroscopy Time (minutes): 0.1 Conscious Sedation Time (minutes): 42 Radiation (mGy): 4 Post Operative Report Pre & Post Diagnosis Operation Date: 01/20/24 08:00 Pre-Op Diagnosis: Acute Kidney Injury Post-Op Diagnosis: Acute Kidney Injury I identified the patient and participated in the time-out.: Yes Procedure Operation Date: 01/20/24 08:00 Actual Procedures p Insertion of Perm Catheter, Right Internal Jugular Approach, Ultrasound Localization of Right Internal Jugular Vein, Fluoroscopy for Positioning, Moderate Sedation 08: - Toni Le MD Surgeon Toni Le MD General Road Supervisor none Estimated Blood Loss 5 Findings Consistent with Post-Op Diagnosis Specimens none Anesthesia Type RN Sedation Complications none Disposition Accompanied Patient To Recovery: No Disposition: Recovery Room Indications Patient is a 63-year-old female who has recurrent pleural effusions. She does have a large right pleural effusion and is in need of dialysis. PermCath insertion was recommended as access for dialysis. I have discussed the risks options and benefits of the procedure with the patient. The patient understands the risks options and benefits and agrees to the procedure. Description of Procedure Patient was taken to the angio suite and placed in semiupright position about 45 degrees due to her shortness of breath.. The right side of the neck and chest wall were prepped and draped in a sterile manner. The patient was identified and a timeout performed. Local anesthesia was then administered to the appropriate areas of the neck and chest wall. Ultrasound was then used to locate the right internal jugular vein. The vein compressed easily, had no filing defects, and was patent. The vein was then punctured under direct ultrasound imaging using micropuncture technique being that the large needle was unsuccessful of the puncturing the internal jugular vein.. A guidewire was then passed centrally under fluoroscopic imaging. The micropuncture sheath was inserted. The wire was then exchanged to the 035 wire. A stab wound was then made in the anterior chest wall and a 19 cm permcath was passed from the stab wound on the chest wall to the puncture site on the neck. The puncture site was then dilated till the 14Fr peel away sheath was inserted. The permcath was then inserted through the sheath to a central position in the distal superior vena cava. The peel away sheath was then removed. The catheter was then sutured in place using nylon sutures. The puncture was then closed using a 4-0 Vicryl subcuticular suture. Dermabond was used for a dressing on the puncture site. Both ports aspirated and flushed easily and were then packed with heparin. A sterile dressing was applied to the catheter. The patient left the operation room in satisfactory condition and tolerated the procedure well. All needle and sponge counts were correct at the end of the procedure. I attest to the content of the Intraoperative Record and any orders documented therein. Any exceptions are noted below.
[2024-01-20] MEDS ORDERED: IRON SUCROSE 200 MG in 0.9 % SODIUM CHLORIDE 100 ML IV SCH (10:00)
[2024-01-20] MEDS: HEPARIN SOD (PORCINE) 5,000 UNITS/ML VIAL ONE (10:20)
--- NOTE | 2024-01-20 12:55 | Nephrology Progress Note ---
Date of Service January 20, 2024 Assessment & Plan (1) End-stage renal disease needing dialysis: (2) Shortness of breath: (3) Pleural effusion, right: (4) Essential hypertension: (5) Anemia: Plan 63 y o F with stage 5 CKD/ESKD, admitted with shortness of breath secondary to r ight-sided pleural effusion. Has been having repeated right-sided pleural effusion this is the second admission within few weeks. Has advanced CKD, baseline creatinine lately staying above 5. Plan to start on dialysis with tunneled dialysis catheter Saturday, previously she repeatedly refused AV fistula. Had tunneled dialysis catheter placement on 01/20/24 -- hemodialysis for 2 h this afternoon, UF 1 L. -- Start on Venofer 20 mg daily x 5 doses and Epogen on dialysis. -- Right arm nephrology precaution for future AV fistula. -- Dose medications for EGFR less than 10 -- Consult case management to set up outpatient dialysis at [facility] Admission and Anticipated Discharge Date Admission Date: January 16, 2024 Saran Angel was seen and evaluated this morning. She had TDC this morning, tolerated well. She been otherwise doing well and asymptomatic but gets easily short of breath with activity or exertion. Kidney function staying stable electrolyte acceptable. Has been voiding normally. Scheduled to have tunneled dialysis catheter Saturday. Review of Systems Review of Systems: Detailed review of system was done and pertinent positives and negatives are mentioned above. Physical Exam Constitutional: WD/WN, vitals as above no acute distress Respiratory: no respiratory distress Auscultation: + diminished lung sounds (Diminished breath sound and rales on the left side) Cardiovascular: Rate/Rhythm: regular rate and regular rhythm Heart Sounds: normal S1 and normal S2 Extremities: + edema (left LE edema, rt BKA ) and + vascular access device (Rt IJ TDC in place) Skin: no rashes, warm and dry Neurologic: no focal motor deficits Psychiatric: Orientation: alert and oriented x 3 Affect: euthymic affect Results & Data Vital Signs (Past 12 Hours) Vital Signs Temp Pulse Pulse Pulse Resp BP Pulse Ox 01/20/24 11:26 36.6 C 68 18 155/68 H 96 01/20/24 10:01 36.5 C 71 18 144/71 H 94 01/20/24 09:12 72 18 149/71 H 98 01/20/24 09:07 70 18 147/70 H 100 01/20/24 09:05 69 18 146/66 H 100 01/20/24 09:00 72 18 166/65 H 100 01/20/24 08:55 70 18 156/76 H 100 01/20/24 08:50 70 18 160/86 H 100 01/20/24 08:45 71 18 167/77 H 100 01/20/24 08:40 72 18 163/77 H 100 01/20/24 08:35 77 20 178/70 H 100 01/20/24 08:30 75 20 175/72 H 100 01/20/24 08:25 77 20 186/73 H 100 01/20/24 07:30 36.8 C 75 20 159/53 H 93 01/20/24 07:24 77 01/20/24 07:12 01/20/24 04:04 36.5 C 88 18 153/70 H 93 O2 Del Method O2 Flow Rate 01/20/24 11:26 Nasal Cannula 1 01/20/24 10:01 Room Air 01/20/24 09:12 Nasal Cannula 1 01/20/24 09:07 Oxymask 4 01/20/24 09:05 Oxymask 4 01/20/24 09:00 Oxymask 4 01/20/24 08:55 Oxymask 4 01/20/24 08:50 Oxymask 4 01/20/24 08:45 Oxymask 4 01/20/24 08:40 Oxymask 4 01/20/24 08:35 Oxymask 4 01/20/24 08:30 Oxymask 4 01/20/24 08:25 Oxymask 4 01/20/24 07:30 Nasal Cannula 1 01/20/24 07:24 01/20/24 07:12 Nasal Cannula 1 01/20/24 04:04 Nasal Cannula 1 PG Care Time/CCT Total # of Minutes Spent Total Time Spent with Patient: Total time spent is greater than 50% in coordination of care (as documented) at patient's floor/unit and/or counseling patient: Coding Level of Care Code 93699 SUB INP/OBS CARE 2/35MIN Diagnoses End-stage renal disease needing dialysis N18.6; Z99.2 Shortness of breath R06.02 Pleural effusion, right J90 Essential hypertension I10 Anemia D64.9 Anemia type: unspecified type (5) Anemia Anemia type: unspecified type Qualified Code(s): D64.9 - Anemia, unspecified
[2024-01-20] MEDS: oxyCODONE HCL IR 5 MG TAB (IMMEDIATE RELEASE) PO STA (12:56)
--- NOTE | 2024-01-20 12:56 | Hospitalist Progress Note ---
Date of Service January 20, 2024 Assessment & Plan (1) Hypoxia: Plan: Acute respiratory failure with hypoxia present on admission. Continues on oxygen weaned down to 1 L/min per nasal cannula to maintain saturation greater than 90%. Hopefully can wean off quickly after right thoracentesis which is pending on 01/19 Starting hemodialysis on 01/19 also which will help with volume status (2) Hypervolemia associated with renal insufficiency: Plan: Now with ESRD starting hemodialysis, creatinine up to 5.46, with volume overload. Tunneled catheter placed on 01/19-add on oxycodone extra dose for pain control Appreciate nephrology consultation-will need outpatient dialysis arranged Follow BMP (3) Stage 5 chronic kidney disease not on chronic dialysis: Plan: As noted above, now with ESRD on HD Continue Bumex (4) Pleural effusion, right: Plan: Recurrent. She has had multiple previous right side thoracentesis procedures. This is secondary to chronic effusion from renal failure Thoracentesis planned for today and hopefully initiation of hemodialysis will control volume status and prevent reaccumulation. Supplemental oxygen as needed to keep pulse ox greater than 90% (5) Anemia: Plan: Hemoglobin 8.3, transferrin saturation 17% Receiving IV Venofer and Epogen with dialysis Follow CBC (6) Essential hypertension: Plan: Blood pressures are still mildly elevated but improved with adding hydralazine Continue amlodipine and metoprolol Monitor and adjust as needed, once HD initiated likely better controlled due to volume management Continue Bumex (7) Diabetes mellitus type 2 with complications: Plan: ADA diet. Sliding scale coverage for now. Not on medication at home He globin A1c in 12/2023 only 7.1% (8) PAD (peripheral artery disease): Plan: Continue aspirin and statin With a history of right BKA Plan GERD-continue PPI Insomnia-continue trazodone DVT prophylaxis heparin SQ Disposition-continued stay on medical floor with telemetry, discussed with case management about arranging outpatient dialysis Admission and Anticipated Discharge Date Admission Date: January 16, 2024 Subjective Patient just returned from having her PermCath placed and is having some pain at the permacath site. She is awaiting her first session of hemodialysis and awaiting thoracentesis Does feel little short of breath at times. Feels she has developed swelling in her left leg Telemetry with sinus rhythm first-degree block, rates in the 70s Physical Exam Constitutional: WD/WN, vitals as above + obese Respiratory: normal respiratory effort; no cough Auscultation: + crackles (Bibasilar); no rhonchi and no wheezes Cardiovascular: Rate/Rhythm: regular rate and regular rhythm Heart Sounds: no murmur Extremities: + edema (1+ edema left leg ) Musculoskeletal: Extremities: + extremities abnormal to inspection (Right BKA with prosthetic in place) Psychiatric: A+Ox3, euthymic affect Results & Data Results & Data Vital Signs (Past 12 Hours) Vital Signs Temp Pulse Pulse Pulse Resp BP Pulse Ox 01/20/24 11:26 36.6 C 68 18 155/68 H 96 01/20/24 10:01 36.5 C 71 18 144/71 H 94 01/20/24 09:12 72 18 149/71 H 98 01/20/24 09:07 70 18 147/70 H 100 01/20/24 09:05 69 18 146/66 H 100 01/20/24 09:00 72 18 166/65 H 100 01/20/24 08:55 70 18 156/76 H 100 01/20/24 08:50 70 18 160/86 H 100 01/20/24 08:45 71 18 167/77 H 100 01/20/24 08:40 72 18 163/77 H 100 01/20/24 08:35 77 20 178/70 H 100 01/20/24 08:30 75 20 175/72 H 100 01/20/24 08:25 77 20 186/73 H 100 01/20/24 07:30 36.8 C 75 20 159/53 H 93 01/20/24 07:24 77 01/20/24 07:12 01/20/24 04:04 36.5 C 88 18 153/70 H 93 O2 Del Method O2 Flow Rate 01/20/24 11:26 Nasal Cannula 1 01/20/24 10:01 Room Air 01/20/24 09:12 Nasal Cannula 1 01/20/24 09:07 Oxymask 4 01/20/24 09:05 Oxymask 4 01/20/24 09:00 Oxymask 4 01/20/24 08:55 Oxymask 4 01/20/24 08:50 Oxymask 4 01/20/24 08:45 Oxymask 4 01/20/24 08:40 Oxymask 4 01/20/24 08:35 Oxymask 4 01/20/24 08:30 Oxymask 4 01/20/24 08:25 Oxymask 4 01/20/24 07:30 Nasal Cannula 1 01/20/24 07:24 01/20/24 07:12 Nasal Cannula 1 01/20/24 04:04 Nasal Cannula 1 Laboratory Results BMP reviewed PG Care Time/CCT Total # of Minutes Spent Total Time Spent with Patient: Total time spent is greater than 50% in coordination of care (as documented) at patient's floor/unit and/or counseling patient: Coding Level of Care Code 48580 SUB INP/OBS CARE 2/35MIN Diagnoses Hypoxia R09.02 Hypervolemia associated with renal insufficiency E87.70; N28.9 Stage 5 chronic kidney disease not on chronic dialysis N18.5 Pleural effusion, right J90 Anemia D64.9 Anemia type: unspecified type Essential hypertension I10 Diabetes mellitus type 2 with complications E11.8 PAD (peripheral artery disease) I73.9 (5) Anemia Anemia type: unspecified type Qualified Code(s): D64.9 - Anemia, unspecified
[2024-01-20] MEDS: EPOETIN ALFA 20,000 UNITS/ML VIAL IV ONE (16:37)
[2024-01-20 18:18] LABS: Hepatitis B Surface Ab Quant < 3.00 mIU/mL (>or=10mIU/mL Immune); Hepatitis B Surface Antibody Non-Immune
[2024-01-21 06:48] LABS: Basophils # (auto) 0.06 K/uL (0.00-0.20); Basophils % (auto) 0.8 %; Eosinophils # (auto) 0.28 K/uL (0.00-0.50); Eosinophils % (auto) 3.6 %; Hematocrit (blood only) 28.3 % (37.0-47.0); Hemoglobin 8.8 g/dl (12.0-16.0); Immature Granulocytes # (auto) 0.28 K/uL (0.01-0.20); Immature Granulocytes % (auto) 3.6 %; Lymphocytes # (auto) 0.92 K/uL (1.20-3.40); Mean Corpuscular Hgb Conc 31.1 g/dL (32.0-36.0); Mean Corpuscular Volume 90.1 fL (80.0-100.0); Mean Platelet Volume 9.3 fL (9.4-12.4); Monocytes # (auto) 0.79 K/uL (0.11-0.59); Monocytes % (auto) 10.3 %; Neutrophils # (auto) 5.35 K/uL (1.40-6.50); Neutrophils % (auto) 69.7 %; Nucleated RBC # (auto) 0.05 K/uL (0.00-0.12); Nucleated RBC % (auto) 0.7 %; Platelet Count 213 K/uL (130-400); RDW Coefficient of Variation 16.5 % (11.5-14.5); RDW Standard Deviation 51.7 fL (36.4-46.3); Red Blood Count 3.14 M/uL (4.20-5.40); White Blood Count 7.68 K/ul (4.8-10.8)
[2024-01-21 07:10] LABS: Albumin Level 2.9 gm/dl (3.4-5.0); BUN Creatinine Ratio 8.9 (10-20); Calcium 8.4 mg/dl (8.6-10.3); Creatinine Clr Calc Pharmacy 14.4 ml/min; Est GFR (African American) 11.3 ml/min; Est GFR (Non-African American) 9.7 ml/min; Phosphorus 3.7 mg/dl (2.5-4.9); Potassium 3.9 mmol/L (3.5-5.1)
[2024-01-21 07:30] LABS: Folate (Folic Acid),Ser orPlas 7.5 ng/ml (>5.38)
--- NOTE | 2024-01-21 10:42 | Nephrology Progress Note ---
Date of Service January 21, 2024 Assessment & Plan (1) End-stage renal disease needing dialysis: (2) Shortness of breath: (3) Pleural effusion, right: (4) Essential hypertension: (5) Anemia: Plan 63 y o F with stage 5 CKD/ESKD, admitted with shortness of breath secondary to r ight-sided pleural effusion. Has been having repeated right-sided pleural effusion this is the second admission within few weeks. Has advanced CKD, baseline creatinine lately staying above 5. Plan to start on dialysis with tunneled dialysis catheter Saturday, previously she repeatedly refused AV fistula. Had tunneled dialysis catheter placement on 01/20/24 -- hemodialysis for 3 h this morning try to to 2 L UF as tolerated. -- on Venofer 20 mg daily x 5 doses and Epogen on dialysis. -- Right arm nephrology precaution for future AV fistula. -- Dose medications for EGFR less than 10 -- Waiting on set up of outpatient dialysis at [facility] Admission and Anticipated Discharge Date Admission Date: January 16, 2024 Saran Angel was seen and evaluated this morning. She had TDC yesterday and had first dialysis for 2 hours, tolerated well, had 1 L UF. She been otherwise doing well and asymptomatic but gets easily short of breath with activity or exertion and feels it somewhat difficult to take deep breath due to large right sided pleural effusion. Review of Systems Review of Systems: Detailed review of system was done and pertinent positives and negatives are mentioned above. Physical Exam Constitutional: WD/WN, vitals as above no acute distress Respiratory: no respiratory distress Auscultation: + diminished lung sounds (Diminished breath sound and rales on the left side) Cardiovascular: Rate/Rhythm: regular rate and regular rhythm Heart Sounds: normal S1 and normal S2 Extremities: + edema (left LE edema, rt BKA ) and + vascular access device (Rt IJ TDC in place) Skin: no rashes, warm and dry Neurologic: no focal motor deficits Psychiatric: Orientation: alert and oriented x 3 Affect: euthymic affect Results & Data Vital Signs (Past 12 Hours) Vital Signs Temp Pulse Pulse Resp BP Pulse Ox O2 Del Method 01/21/24 08:45 Nasal Cannula 01/21/24 07:27 81 01/21/24 07:27 36.8 C 85 18 171/66 H 90 Nasal Cannula 01/21/24 02:36 36.8 C 82 18 178/68 H 96 Nasal Cannula O2 Flow Rate 01/21/24 08:45 1 01/21/24 07:27 01/21/24 07:27 1 01/21/24 02:36 1 PG Care Time/CCT Total # of Minutes Spent Total Time Spent with Patient: Total time spent is greater than 50% in coordination of care (as documented) at patient's floor/unit and/or counseling patient: Coding Level of Care Code 68963 SUB INP/OBS CARE 2/35MIN Diagnoses End-stage renal disease needing dialysis N18.6; Z99.2 Shortness of breath R06.02 Pleural effusion, right J90 Essential hypertension I10 Anemia D64.9 Anemia type: unspecified type (5) Anemia Anemia type: unspecified type Qualified Code(s): D64.9 - Anemia, unspecified
--- NOTE | 2024-01-21 14:21 | Hospitalist Progress Note ---
Date of Service January 21, 2024 Assessment & Plan (1) Hypoxia: Plan: Acute respiratory failure with hypoxia present on admission. Continues on oxygen weaned down to 1 L/min per nasal cannula to maintain saturation greater than 90%. Hopefully can wean off quickly after right thoracentesis which is pending on 01/20 Continue hemodialysis which will help with volume status (2) Hypervolemia associated with renal insufficiency: Plan: Now with ESRD with a new start on hemodialysis, creatinine up to 5.46, with volume overload. Tunneled catheter placed on 01/19 and had dialysis treatments 01/19 and 01/20 Plan for full 4-hour treatment of hemodialysis on 01/20 Appreciate nephrology consultation-will need outpatient dialysis arranged-case management involved Follow BMP Peripheral edema is improving, pleural effusion persist but should improve as well (3) Stage 5 chronic kidney disease not on chronic dialysis: Plan: As noted above, now with ESRD on HD Continue Bumex (4) Pleural effusion, right: Plan: Recurrent. She has had multiple previous right side thoracentesis procedures. This is secondary to chronic effusion from renal failure Thoracentesis delayed until 01/21 Initiation of hemodialysis will control volume status and prevent reaccumulation. Continue supplemental oxygen as needed to keep pulse ox greater than 90% (5) Anemia: Plan: Hemoglobin 8.3 height and 8.8, transferrin saturation 17% Receiving IV Venofer and Epogen with dialysis Follow CBC With nausea from IV Venofer-antiemetics as needed (6) Essential hypertension: Plan: Blood pressures are still mildly elevated but improved with adding hydralazine and darting hemodialysis Continue amlodipine and metoprolol Monitor and adjust as needed, once HD initiated likely better controlled due to volume management Continue Bumex (7) Diabetes mellitus type 2 with complications: Plan: ADA diet. Sliding scale coverage for now. Not on medication at home Hemoglobin A1c in 12/2023 only 7.1% Typically is on tramadol for neuropathy related pain at home but this has worsened here with starting dialysis and tramadol not effective Started oxycodone will increase frequency to every 3 hours (8) PAD (peripheral artery disease): Plan: Continue aspirin and statin With a history of right BKA Plan GERD-continue PPI Insomnia-continue trazodone DVT prophylaxis heparin SQ Disposition-continued stay on medical floor with telemetry, discussed with case management about arranging outpatient dialysis Admission and Anticipated Discharge Date Admission Date: January 16, 2024 Subjective Patient reported some nausea with receiving IV Venofer this morning that lasted for a few hours but is now improving. She still having a lot of tenderness at the site of her tunneled dialysis catheter. She underwent 3 hours of dialysis today. Still some shortness of breath with exertion. Thoracentesis will be tomorrow. She also reports significant pain that is acute on chronic in her hands and feet from neuropathy and the oxycodone wears off after 3 hours. Telemetry with sinus rhythm and first-degree AV block, IVCD and some PVCs and a 10 beat run of V. tach. Rates 70s to 80s. Physical Exam Constitutional: WD/WN, vitals as above + obese Respiratory: normal respiratory effort; no cough Auscultation: + crackles (Bibasilar); no rhonchi and no wheezes Cardiovascular: Rate/Rhythm: regular rate and regular rhythm Heart Sounds: no murmur Extremities: + edema (Trace edema left leg, improved) Musculoskeletal: Extremities: + extremities abnormal to inspection (Right BKA ) Skin: Right anterior chest wall with tunneled dialysis catheter with some surrounding ecchymosis in the right side of neck Psychiatric: A+Ox3, euthymic affect Results & Data Results & Data Vital Signs (Past 12 Hours) Vital Signs Temp Pulse Pulse Pulse Resp BP BP 01/21/24 13:42 36.5 C 76 16 162/70 H 01/21/24 13:29 36.8 C 77 174/79 H 01/21/24 13:00 72 153/63 H 01/21/24 12:30 72 156/61 H 01/21/24 12:00 71 153/61 H 01/21/24 11:30 73 142/64 H 01/21/24 11:00 77 153/68 H 01/21/24 10:30 78 142/62 H 01/21/24 10:21 79 163/61 H 01/21/24 10:15 36.7 C 80 01/21/24 08:45 01/21/24 07:27 81 01/21/24 07:27 36.8 C 85 18 171/66 H 01/21/24 02:36 36.8 C 82 18 178/68 H Pulse Ox O2 Del Method O2 Flow Rate 01/21/24 13:42 95 Nasal Cannula 1 01/21/24 13:29 01/21/24 13:00 01/21/24 12:30 01/21/24 12:00 01/21/24 11:30 01/21/24 11:00 01/21/24 10:30 01/21/24 10:21 01/21/24 10:15 01/21/24 08:45 Nasal Cannula 1 01/21/24 07:27 01/21/24 07:27 90 Nasal Cannula 1 01/21/24 02:36 96 Nasal Cannula 1 Laboratory Results CBC, BMP, B12, folate reviewed PG Care Time/CCT Total # of Minutes Spent Total Time Spent with Patient: Total time spent is greater than 50% in coordination of care (as documented) at patient's floor/unit and/or counseling patient: Coding Level of Care Code 38075 SUB INP/OBS CARE 235MIN Diagnoses Hypoxia R09.02 Hypervolemia associated with renal insufficiency E87.70; N28.9 Stage 5 chronic kidney disease not on chronic dialysis N18.5 Pleural effusion, right J90 Anemia D64.9 Anemia type: unspecified type Essential hypertension I10 Diabetes mellitus type 2 with complications E11.8 PAD (peripheral artery disease) I73.9 (5) Anemia Anemia type: unspecified type Qualified Code(s): D64.9 - Anemia, unspecified
[2024-01-21] MEDS: oxyCODONE HCL IR 5 MG TAB (IMMEDIATE RELEASE) PO PRN (17:14)
[2024-01-22 07:16] LABS: Basophils # (auto) 0.08 K/uL (0.00-0.20); Eosinophils % (auto) 3.7 %; Hematocrit (blood only) 26.8 % (37.0-47.0); Hemoglobin 8.3 g/dl (12.0-16.0); Immature Granulocytes # (auto) 0.29 K/uL (0.01-0.20); Immature Granulocytes % (auto) 3.6 %; Lymphocytes # (auto) 1.36 K/uL (1.20-3.40); Lymphocytes % (auto) 16.8 %; Mean Corpuscular Hemoglobin 28.1 pg (25.0-34.0); Mean Corpuscular Volume 90.8 fL (80.0-100.0); Mean Platelet Volume 9.4 fL (9.4-12.4); Monocytes % (auto) 11.1 %; Neutrophils # (auto) 5.18 K/uL (1.40-6.50); Neutrophils % (auto) 63.8 %; Nucleated RBC # (auto) 0.08 K/uL (0.00-0.12); Platelet Count 188 K/uL (130-400); RDW Standard Deviation 53.5 fL (36.4-46.3); Red Blood Count 2.95 M/uL (4.20-5.40); White Blood Count 8.11 K/ul (4.8-10.8)
[2024-01-22 07:38] LABS: Albumin Level 2.8 gm/dl (3.4-5.0); BUN Creatinine Ratio 8.4 (10-20); Calcium 8.5 mg/dl (8.6-10.3); Creatinine Clr Calc Pharmacy 18.1 ml/min; Est GFR (African American) 14.8 ml/min; Est GFR (Non-African American) 12.7 ml/min; Magnesium 2.3 mg/dl (1.7-2.4); Phosphorus 3.6 mg/dl (2.5-4.9)
[2024-01-22] MEDS: PROCHLORPERAZINE 5 MG in SYRINGE 4 ML IV PRN (10:03)
[2024-01-22] MEDS: FAMOTIDINE 20MG IV PUSH 20 MG/5 ML SYR IV STA (10:03)
--- NOTE | 2024-01-22 10:14 | XCELERA ---
[id number]
--- NOTE | 2024-01-22 10:47 | XRay Report ---
XR chest 1V not portable HISTORY: Status post right thoracentesis. COMPARISON: Chest 01/16/2024. FINDINGS: Decrease in size in the now small right pleural effusion status post thoracentesis. No pneu mothorax. The heart remains enlarged. Bibasilar linear densities favor subsegmental atelectasis. No a cute fractures. A right jugular catheter terminates in the SVC. There is mild central pulmonary vascu lar congestion without overt edema. IMPRESSION: Decrease in size in the now small right pleural effusion status post thoracentesis. No pneumothorax. ACT 112: Negative or not required by law. Electronically signed by: Domo Morales M.D. 01/22/2024 10:46 AM
--- NOTE | 2024-01-22 11:03 | Nephrology Progress Note ---
Date of Service January 22, 2024 Assessment & Plan (1) End-stage renal disease needing dialysis: (2) Shortness of breath: (3) Pleural effusion, right: (4) Essential hypertension: (5) Anemia: Plan 63 y o F with stage 5 CKD/ESKD, admitted with shortness of breath secondary to r ight-sided pleural effusion. Has been having repeated right-sided pleural effusion this is the second admission within few weeks. Has advanced CKD, baseline creatinine lately staying above 5. Plan to start on dialysis with tunneled dialysis catheter Saturday, previously she repeatedly refused AV fistula. Had tunneled dialysis catheter placement on 01/20/24 -- Had hemodialysis for 3 h yesterday, will plan for 4 hours hemodialysis tomorrow. -- on Venofer 20 mg daily x 5 doses and Epogen on dialysis. -- Right arm nephrology precaution for future AV fistula. -- Dose medications for EGFR less than 10 -- Waiting on set up of outpatient dialysis at [facility] Admission and Anticipated Discharge Date Admission Date: January 16, 2024 Saran Angel was off floor for echo this morning and was not seen in person. Had dialysis yesterday, electrolyte acceptable. Results & Data Vital Signs (Past 12 Hours) Vital Signs Temp Pulse Pulse Pulse Resp BP Pulse Ox 01/22/24 10:45 36.7 C 83 18 162/71 H 93 01/22/24 10:20 36.7 C 81 18 157/68 H 93 01/22/24 10:00 01/22/24 07:54 36.8 C 77 18 163/66 H 90 01/22/24 06:51 75 01/22/24 03:08 36.9 C 79 20 139/69 97 01/22/24 00:36 37.1 C 80 20 158/62 H 92 O2 Del Method 01/22/24 10:45 Room Air 01/22/24 10:20 Room Air 01/22/24 10:00 Room Air 01/22/24 07:54 Room Air 01/22/24 06:51 01/22/24 03:08 Room Air 01/22/24 00:36 Room Air PG Care Time/CCT Total # of Minutes Spent Total Time Spent with Patient: Total time spent is greater than 50% in coordination of care (as documented) at patient's floor/unit and/or counseling patient: Coding Level of Care Code 77129 SUB INP/OBS CARE MIN Diagnoses End-stage renal disease needing dialysis N18.6; Z99.2 Shortness of breath R06.02 Pleural effusion, right J90 Essential hypertension I10 Anemia D64.9 Anemia type: unspecified type (5) Anemia Anemia type: unspecified type Qualified Code(s): D64.9 - Anemia, unspecified
--- NOTE | 2024-01-22 13:13 | Hospitalist Progress Note ---
Date of Service January 22, 2024 Assessment & Plan (1) End-stage renal disease needing dialysis: Plan: Now with ESRD with a new start on hemodialysis, creatinine up to 5.46, with volume overload. Tunneled catheter placed on 01/19 and had dialysis treatments 01/19 and 01/20 Plan for possible 2 hour treatment of hemodialysis on 01/20, then discharge to home with outpt HD MWF-outpt chair to start Saturday at [facility] at 0615. Appreciate nephrology consultation Follow BMP Peripheral edema is improving, pleural effusion should improve as well Continue Bumex Continue BP control Nausea maybe related to pain meds from tunneled IJ vs new start HD? Resolved with ZOfran, IV pepcid--> will plan to give po Zofran for home use prn (2) Hypoxia: Plan: Acute respiratory failure with hypoxia present on admission. Now weaned off supplemental O2 after starting HD and after right thoracentesis Continue hemodialysis which will help with volume status Repeat CXR 01/21 with small pleural effusion on right but much improved s/p thoracentesis (3) Pleural effusion, right: Plan: Recurrent. She has had multiple previous right side thoracentesis procedures. This is secondary to chronic effusion from renal failure Thoracentesis completed 01/21 Initiation of hemodialysis will control volume status and prevent reaccumulation. (4) Anemia: Plan: Hemoglobin 8.3 height and 8.8, transferrin saturation 17% Received total of 1000mg IV Venofer and Epogen 20638 units on 01/19 with dialysis Follow CBC Typically follows with Heme for Retacrit as outpt q 2 weeks (5) Essential hypertension: Plan: Blood pressures are still mildly elevated but improved with adding hydralazine and darting hemodialysis Continue amlodipine and metoprolol Monitor and adjust as needed, once HD initiated likely better controlled due to volume management Continue Bumex (6) Diabetes mellitus type 2 with complications: Plan: ADA diet. Sliding scale coverage for now. Not on medication at home Hemoglobin A1c in 12/2023 only 7.1% Typically is on tramadol for neuropathy related pain at home but this has worsened here with starting dialysis and tramadol not effective Started and will continue oxycodone every 3 hours which is working better (7) PAD (peripheral artery disease): Plan: Continue aspirin and statin With a history of right BKA Plan GERD-continue PPI, gave one dose of Ppecid for nausea in AM Insomnia-continue trazodone DVT prophylaxis heparin SQ Disposition-continued stay, possible HD today and then dc to home tomorrow Admission and Anticipated Discharge Date Admission Date: January 16, 2024 Subjective Pt had thoracentesis today and feels so much better, is now weaned off O2, no SOB. Still having lyssa epain around tunneled catheter site and in hands and feet chronically. Had some nausea again this AM that resolved with Zofran and IV pepcid. She has no other concerns Tele with SR 1st degree AVB, no further VT Physical Exam Constitutional: WD/WN, vitals as above + obese Respiratory: normal respiratory effort; no cough Auscultation: + diminished lung sounds (right base); no crackles, no rhonchi and no wheezes Cardiovascular: Rate/Rhythm: regular rate and regular rhythm Heart Sounds: no murmur Extremities: + edema (Trace edema left leg, improved) Musculoskeletal: Extremities: + extremities abnormal to inspection (Right BKA ) Skin: bruising around right tunneled IJ site Psychiatric: A+Ox3, euthymic affect Results & Data Results & Data Vital Signs (Past 12 Hours) Vital Signs Temp Pulse Pulse Pulse Resp BP Pulse Ox 01/22/24 11:34 36.5 C 72 16 139/69 94 01/22/24 11:26 36.7 C 70 18 119/54 L 94 01/22/24 10:45 36.7 C 83 18 162/71 H 93 01/22/24 10:20 36.7 C 81 18 157/68 H 93 01/22/24 10:00 01/22/24 07:54 36.8 C 77 18 163/66 H 90 01/22/24 06:51 75 01/22/24 03:08 36.9 C 79 20 139/69 97 O2 Del Method 01/22/24 11:34 Room Air 01/22/24 11:26 Room Air 01/22/24 10:45 Room Air 01/22/24 10:20 Room Air 01/22/24 10:00 Room Air 01/22/24 07:54 Room Air 01/22/24 06:51 01/22/24 03:08 Room Air Laboratory Results CBC, BMP, mag, phos reviewed PG Care Time/CCT Total # of Minutes Spent Total Time Spent with Patient: Total time spent is greater than 50% in coordination of care (as documented) at patient's floor/unit and/or counseling patient: Coding Level of Care Code 67182 SUB INP/OBS CARE MIN Diagnoses End-stage renal disease needing dialysis N18.6; Z99.2 Hypoxia R09.02 Pleural effusion, right J90 Anemia D64.9 Anemia type: unspecified type Essential hypertension I10 Diabetes mellitus type 2 with complications E11.8 PAD (peripheral artery disease) I73.9 (4) Anemia Anemia type: unspecified type Qualified Code(s): D64.9 - Anemia, unspecified
--- NOTE | 2024-01-22 14:44 | Ultrasound Report ---
ULTRASOUND-GUIDED RIGHT THORACENTESIS CLINICAL HISTORY: Right pleural effusion PROCEDURE: Procedure and risks were explained. Informed consent was obtained. A final timeout was com pleted. The right posterior thorax was prepped and draped in sterile fashion. 1% lidocaine was utiliz ed for skin anesthesia. Utilizing ultrasound guidance, a 5 Armenian safety centesis catheter was advanced into the right pleura l effusion. Ultrasound images were obtained. A total of 925 mL yellow-colored pleural fluid was remov ed and discarded. The catheter was removed and Band-Aid applied. The patient tolerated the procedure well. Postprocedure chest x-ray will be performed. Vital signs will be monitored postprocedure. IMPRESSION: Ultrasound-guided right thoracentesis as above. Performed, dictated, and signed by Gasper Evans PA-C; to be co-signed by Dr. Azael Morton. Electronically signed by: Azael Morton M.D. 01/22/2024 4:17 PM
[2024-01-23 07:34] VITALS: RESP 20; TEMP 98.1
[2024-01-23 07:56] LABS: Basophils # (auto) 0.07 K/uL (0.00-0.20); Basophils % (auto) 0.9 %; Eosinophils # (auto) 0.34 K/uL (0.00-0.50); Eosinophils % (auto) 4.1 %; Hematocrit (blood only) 26.7 % (37.0-47.0); Hemoglobin 8.1 g/dl (12.0-16.0); Immature Granulocytes % (auto) 2.4 %; Lymphocytes # (auto) 1.13 K/uL (1.20-3.40); Lymphocytes % (auto) 13.8 %; Mean Corpuscular Hemoglobin 27.9 pg (25.0-34.0); Mean Corpuscular Hgb Conc 30.3 g/dL (32.0-36.0); Mean Corpuscular Volume 92.1 fL (80.0-100.0); Mean Platelet Volume 9.5 fL (9.4-12.4); Monocytes # (auto) 0.78 K/uL (0.11-0.59); Monocytes % (auto) 9.5 %; Neutrophils # (auto) 5.69 K/uL (1.40-6.50); Neutrophils % (auto) 69.3 %; Nucleated RBC # (auto) 0.03 K/uL (0.00-0.12); Nucleated RBC % (auto) 0.4 %; Platelet Count 207 K/uL (130-400); RDW Coefficient of Variation 17.3 % (11.5-14.5); RDW Standard Deviation 54.4 fL (36.4-46.3); White Blood Count 8.21 K/ul (4.8-10.8)
[2024-01-23 08:23] LABS: BUN Creatinine Ratio 7.6 (10-20); Calcium 8.4 mg/dl (8.6-10.3); Est GFR (African American) 11.8 ml/min; Est GFR (Non-African American) 10.1 ml/min; Potassium 4.2 mmol/L (3.5-5.1)
--- NOTE | 2024-01-23 11:13 | Discharge Summary ---
Discharge Summary Date of Service January 23, 2024 Principal Dx & Hospital Course #1 = Principal Diagnosis (1) End-stage renal disease needing dialysis: Now with ESRD with a new start on hemodialysis, creatinine up to 5.46, with volume overload. Tunneled catheter placed on 01/19 and had dialysis treatments 01/19 and 01/20 Plan for discharge to home with outpt HD MWF-outpt chair to start Saturday at [facility] at 0615. Appreciate nephrology consultation Peripheral edema is improving, pleural effusion should improve as well over time and after thoracentesis Continue Bumex 1mg po bid Continue BP control-added hydralazine (2) Hypoxia: Acute respiratory failure with hypoxia present on admission. Now weaned off supplemental O2 after starting HD and after right thoracentesis Continue hemodialysis which will help with volume status Repeat CXR 01/21 with small pleural effusion on right but much improved s/p thoracentesis (3) Pleural effusion, right: Recurrent. She has had multiple previous right side thoracentesis procedures. This is secondary to chronic effusion from renal failure Thoracentesis completed 01/21 Initiation of hemodialysis will control volume status and prevent reaccumul ation. (4) Anemia: Hemoglobin 8.1, transferrin saturation 17% Received total of 1000mg IV Venofer and Epogen 15187 units on 01/19 with dialysis Follow CBC as outpt Typically follows with Heme for Retacrit as outpt q 2 weeks-may not need to continue this if getting at dialysis (5) Essential hypertension: Blood pressures are still mildly elevated but improved with adding hydralazine and starting hemodialysis Continue amlodipine and metoprolol, added hydralazine Monitor and adjust as needed, once HD initiated likely better controlled due to volume management Continue Bumex (6) Diabetes mellitus type 2 with complications: ADA diet. Not on medication at home Hemoglobin A1c in 12/2023 only 7.1% Typically is on tramadol for neuropathy related pain at home but pain has worsened here with starting dialysis and tramadol not effective Started oxycodone every 3 hours which is working better but still not well controlled and having ongoing AM nausea maybe related to pain meds (started oxycodone)--> improves with compazine Continue oxycodone for now but if continues with nausea, advised to switch back to tramadol and discuss with PCP Will give small supply of compazine for nausea (prolonged QT so no Zofran) (7) PAD (peripheral artery disease): Continue aspirin and statin With a history of right BKA Plan GERD-continue PPI Insomnia-continue trazodone DVT prophylaxis heparin SQ Disposition-dc to home Discussed care with Nephrology on day of discharge Notes For Next Care Provider Starting hemodialysis MWF Having ongoing pain control issues with neuropathy-changed to oxycodone but causing some nausea-may need to swtich back to tramadol Medication Changes From Visit see list below Admission HPI Per Admitting Provider Jeanne is a 63-year-old female with PMH of stage 4/5 CKD With need for hemodialysis at times in 2022, chronic diastolic heart failure, recurrent admissions for volume overload and moderate to large right pleural effusion, PAD, right BKA, T2DM with complications, sleep apnea (Not compliant with at bedtime CPAP),, GERD, and Charcot's arthroplasty who presented to the [facility] ED on 01/16/2024 due to recurrent episodes of shortness of breath. On arrival to the ED she was noted to be hypoxic at 88% on room air, hypertensive at 154/67, but otherwise stable. Labs were significant for a leukocytosis of 11 with neutrophil predominance of 9, VBG within normal limits, creatinine of 4.97 with stable electrolytes, BNP of 493 (up from 437 as of 12/23/2023), high-sensitivity troponin within normal limits. Chest xray was read as Elevation of the right hemidiaphragm is seen with likely underlying atelectasis. On my read it does appear that the patient has recurrence of her moderate right pleural effusion. Prior to admission the patient was ordered 1 mg IV Bumex. Patient was sitting in bed in no acute distress at the time of the exam, she is currently stable on 4 L nasal cannula. States that she started to notice progressive shortness of breath and dyspnea on exertion with worsening orthopnea approximately 3 days ago. This morning when she woke she was significantly more short of breath even at rest. Has developed a nonproductive cough over the past 3 days, denies pleuritic chest pain and hemoptysis. States that she has been compliant with her 1 mg p.o. Bumex twice daily and her low-sodium diet. When asked if she sticks to a fluid restriction she states that she does not watch her fluid intake as closely as her sodium intake. Since being placed on nasal cannula her breathing has been much improved. She confirms that she is still making urine. Denies recent fever or chills, chest pain, abdominal pain, nausea/vomiting, dysuria, hematuria, diarrhea, melena, and recent trauma. She confirms that they have been monitoring her renal function closely and continue to talk about potential femoral dialysis catheter with plans for AV fistula placement in the coming months. She confirms she is a full code and she would want her and son to make medical decisions for her if she cannot make them herself. Please refer to Dr. Dior' attestation for any changes to the treatment plan Discharge Exam Constitutional WD/WN, vitals as above + obese Respiratory normal respiratory effort; no cough Auscultation: + diminished lung sounds (right base); no crackles, no rhonchi and no wheezes Cardiovascular Rate/Rhythm: regular rate and regular rhythm Heart Sounds: no murmur Extremities: + edema (Trace edema left leg, improved) Musculoskeletal Extremities: + extremities abnormal to inspection (Right BKA ) Psychiatric A+Ox3, euthymic affect Discharge Plan Discharge Items Patient Disposition: Home - Self-Care Reason For Visit: ACUTE RESPIRATORY FAILURE, VOLUME OVERLOAD Discharge Diagnosis: End Stage Renal Disease on hemodialysis Volume overload Pleural effusion Acute respiratory failure with hypoxia-resolved Condition on Discharge: Fair Activity: Resume your previous activity Non-emergency contact: Primary Care Provider and Hotel Desk Clerk Call non-emergency contact if: you have any medication questions and your symptoms worsen Follow-up/Referrals: Andie Rodrigues, [Primary Care Provider] - (Follow up within 1-2 weeks) Diet: Dialysis Renal Fluids: 1200ml (5 cups) Addtl Attending Provider Instructions: You were admitted with volume overload and worsening kidney failure. You also had low oxygen levels from the fluid around your lung. You were started on dialysis and had the fluid drained from around your lung with improvement in your condition. You will start dialysis at [facility] in [place] Saturday starting tomorrow at 6:15AM. Your pain medication for your neuropathy was changed to oxycodone although this may be causing you some nausea. If the nausea persists, please change back to tramadol and talk to your PCP. Pending Studies at Discharge: No Stand-Alone Forms: My [employer], Smoking Cessation Medications and DC Order Prescriptions: New hydralazine 50 mg Tablet 50 mg PO BID Qty: 60 0RF oxycodone 5 mg Tablet 5 - 10 mg PO Q4H PRN (Reason: moderate-severe pain) Qty: 30 0RF prochlorperazine maleate [Compazine] 5 mg tablet 5 mg PO BID PRN (Reason: nausea and vomiting) Qty: 10 0RF Continued (DME) Prosthetic Socket replacement See Rx Instructions .Route .MEDSUPPLY Qty: 1 0RF Rx Instructions: As directed. Patient states she is being fitted for a new prosthetic. (DME) Accu-Chek Guide L1-L2 Ctrl Nancy Solution See Rx Instructions .Route Qty: 1 0RF Rx Instructions: As directed trazodone 50 mg tablet 25 mg PO HS Qty: 45 3RF bumetanide 1 mg tablet 1 mg PO BID Qty: 60 5RF omeprazole 20 mg capsule,delayed release(DR/EC) 20 mg PO DAILY 90 Days Qty: 90 1RF rosuvastatin 40 mg tablet 40 mg PO QAM Qty: 90 1RF ergocalciferol (vitamin D2) 1,250 mcg (50,000 unit) capsule 50,000 unit PO WEEKLY Qty: 12 0RF Rx Instructions: Saturday mecobalamin (vitamin B12) 1,000 mcg tablet,disintegrating 1,000 mcg sublingual DAILY Qty: 90 1RF Rx Instructions: place tablet under tongue and allow to dissolve for at least 30 secs before swallowing. polyethylene glycol 3350 [Miralax] 17 gram/dose powder 17 g PO DAILY PRN (Reason: Constipation) loperamide [Imodium A-D] 2 mg capsule 2 mg PO Q6H PRN (Reason: Diarrhea) aspirin [Adult Low Dose Aspirin] 81 mg tablet,delayed release (DR/EC) 81 mg PO DAILY docusate sodium [Stool Softener] 100 mg capsule 100 mg PO DAILY PRN (Reason: Constipation) triamcinolone acetonide 0.5 % cream 1 applic topical BID PRN (Reason: skin irritation) Qty: 60 1RF Rx Instructions: apply to chest (DME) Socket replacement and supplies See Rx Instructions .Route .MEDSUPPLY Qty: 1 0RF Rx Instructions: As directed. Level K2 ferrous sulfate 325 mg (65 mg iron) tablet,delayed release (DR/EC) 325 mg PO BID amlodipine 10 mg tablet 10 mg PO QAM Qty: 90 3RF acetaminophen 650 mg Tablet Extended Release 650 mg PO Q8H PRN (Reason: Pain) metoprolol tartrate 25 mg tablet 12.5 mg PO BID magnesium 500 mg Tablet 500 mg PO DAILY Discontinued tramadol 50 mg tablet 50 mg PO Q8H PRN (Reason: pain) Qty: 90 0RF diphenhydramine HCl [Sleep Aid (diphenhydramine)] 25 mg tablet 25 mg PO HS PRN (Reason: Sleep) Discharge Orders: Discharge Order (Routine); Ordered 01/23/24 Ordered By: Shea Huertas Admission Data Admit Date/Time: 01/16/24 13:31 Attending Provider: Shea Huertas Admit Provider: Vinny Dior Primary Care Provider: Andie Rodrigues Other Providers: Vinny Dior; Moise Hunt; Mc Linton; Toni Le Hospital Stay Data Consultations 01/16/24 13:15 ED Decision to Admit Stat 01/16/24 13:43 Consult Nephrology Routine 01/16/24 13:44 Consult Pulmonology Routine 01/17/24 08:53 Consult Vascular Surgery Routine Procedures Performed Operation Date: 01/20/24 08:00 Actual Procedures p Insertion of Perm Catheter, Right Internal Jugular Approach, Ultrasound Localization of Right Internal Jugular Vein, Fluoroscopy for Positioning, Moderate Sedation 08:30-09:12 - Toni Le MD Diagnostic Imagining Performed 01/20/24 07:14 EV cvc insert non tunnel Routine US EV guide vascular access Routine 01/22/24 IR thoracentesis wo tube US Routine Pending Results Patient Have Any Pending Studies at Discharge: No Discharge Instructions Given to Patient (Per Discharging Provider) You were admitted with volume overload and worsening kidney failure. You also had low oxygen levels from the fluid around your lung. You were started on dialysis and had the fluid drained from around your lung with improvement in your condition. You will start dialysis at [facility] in [place] Saturday starting tomorrow at 6:15AM. Your pain medication for your neuropathy was changed to oxycodone although this may be causing you some nausea. If the nausea persists, please change back to tramadol and talk to your PCP. Total Time Total Time Spent Total Time Spent (In Minutes): 45 min Total Time Includes: Examination of the Patient, Discharge Planning, Medication Reconciliation and Communication With Other Providers Coding Level of Care Code 32042 INP/OBS DISCH >30 MIN Diagnoses End-stage renal disease needing dialysis N18.6; Z99.2 Hypoxia R09.02 Pleural effusion, right J90 Anemia D64.9 Anemia type: unspecified type Essential hypertension I10 Diabetes mellitus type 2 with complications E11.8 PAD (peripheral artery disease) I73.9
[2024-01-23 11:14] VITALS: O2SAT 96
--- NOTE | 2024-01-23 11:26 | Nephrology Progress Note ---
Date of Service January 23, 2024 Assessment & Plan (1) End-stage renal disease needing dialysis: (2) Shortness of breath: (3) Pleural effusion, right: (4) Essential hypertension: (5) Anemia: Plan 63 y o F with stage 5 CKD/ESKD, admitted with shortness of breath secondary to r ight-sided pleural effusion. Has been having repeated right-sided pleural effusion this is the second admission within few weeks. Has advanced CKD, baseline creatinine lately staying above 5. Plan to start on dialysis with tunneled dialysis catheter Saturday, previously she repeatedly refused AV fistula. Had tunneled dialysis catheter placement on 01/20/24. Had [id number] 2 dialysis session for 2 hours on 01/19 and 3 hours 01/20. Had right-sided thoracentesis on 01/22/2024. Blood pressure, volume status acceptable, electrolyte acceptable. Respiratory status improved significantly after thoracentesis yesterday. -- No need for dialysis today, can be discharged, she is scheduled to have first dialysis as an outpatient at [facility]. -- on Venofer 20 mg daily x 5 doses and Epogen on dialysis. -- Right arm nephrology precaution for future AV fistula. -- Dose medications for EGFR less than 10 Admission and Anticipated Discharge Date Admission Date: January 16, 2024 Saran Angel was seen and evaluated this morning. She reports overall feeling a lot better since she had thoracentesis yesterday, respiratory status improved. Electrolyte has been acceptable. Blood pressure, volume status acceptable. Review of Systems Review of Systems: Detailed review of system was done and pertinent positives and negatives are mentioned above. Physical Exam Constitutional: WD/WN, vitals as above no acute distress Respiratory: no respiratory distress Auscultation: + rales (At right base) Cardiovascular: Rate/Rhythm: regular rate and regular rhythm Heart Sounds: normal S1 and normal S2 Extremities: + edema (left LE edema, rt BKA ) and + vascular access device (Rt IJ TDC in place) Skin: no rashes, warm and dry Neurologic: no focal motor deficits Psychiatric: Orientation: alert and oriented x 3 Affect: euthymic affect Results & Data Vital Signs (Past 12 Hours) Vital Signs Temp Pulse Pulse Pulse Resp BP Pulse Ox 01/23/24 11:13 36.7 C 65 20 133/68 96 01/23/24 07:39 01/23/24 07:33 36.7 C 68 20 146/67 H 94 01/23/24 07:20 77 01/23/24 04:05 36.9 C 77 16 152/67 H 95 01/23/24 02:09 75 01/22/24 23:45 36.7 C 79 18 167/67 H 94 O2 Del Method 01/23/24 11:13 Room Air 01/23/24 07:39 Room Air 01/23/24 07:33 Room Air 01/23/24 07:20 01/23/24 04:05 Room Air 01/23/24 02:09 01/22/24 23:45 Room Air PG Care Time/CCT Total # of Minutes Spent Total Time Spent with Patient: Total time spent is greater than 50% in coordination of care (as documented) at patient's floor/unit and/or counseling patient: Coding Level of Care Code 13304 SUB INP/OBS CARE 2/35MIN Diagnoses End-stage renal disease needing dialysis N18.6; Z99.2 Shortness of breath R06.02 Pleural effusion, right J90 Essential hypertension I10 Anemia D64.9 Anemia type: unspecified type (5) Anemia Anemia type: unspecified type Qualified Code(s): D64.9 - Anemia, unspecified
[2024-01-23 12:21] VITALS: BP 163/71; PULSE 77
== END 2024-01-23 14:03 | disposition home or self-care (01) | DRG 291 ==
LOC: ED 12:07 → SUATTDRO 13:31 → 2N 13:31 → 2W 01-22 07:20
DX: E66.01 Morbid (severe) obesity due to excess calories; Z99.2 Dependence on renal dialysis; I13.2 Hypertensive heart and chronic kidney disease with heart failure and with stage 5 chronic kidney disease, or end stage renal disease; J96.01 Acute respiratory failure with hypoxia; E11.51 Type 2 diabetes mellitus with diabetic peripheral angiopathy without gangrene; N17.9 Acute kidney failure, unspecified; N18.6 End stage renal disease; Z68.42 Body mass index [BMI] 45.0-49.9, adult; D64.9 Anemia, unspecified; Z88.2 Allergy status to sulfonamides; J91.8 Pleural effusion in other conditions classified elsewhere; E87.70 Fluid overload, unspecified; I50.32 Chronic diastolic (congestive) heart failure; Z87.891 Personal history of nicotine dependence; E11.40 Type 2 diabetes mellitus with diabetic neuropathy, unspecified; Z88.1 Allergy status to other antibiotic agents; E11.610 Type 2 diabetes mellitus with diabetic neuropathic arthropathy; Z79.82 Long term (current) use of aspirin; E11.22 Type 2 diabetes mellitus with diabetic chronic kidney disease

== ENCOUNTER 2024-10-23 12:17 | Inpatient (IN) ==
[2024-10-23 12:59] LABS: Basophils # (auto) 0.06 K/uL (0.00-0.20); Basophils % (auto) 0.5 %; Eosinophils # (auto) 0.02 K/uL (0.00-0.50); Eosinophils % (auto) 0.2 %; Hematocrit (blood only) 27.8 % (37.0-47.0); Hemoglobin 9.2 g/dl (12.0-16.0); Immature Granulocytes # (auto) 0.15 K/uL (0.01-0.20); Immature Granulocytes % (auto) 1.1 %; Lymphocytes # (auto) 0.81 K/uL (1.20-3.40); Lymphocytes % (auto) 6.2 %; Mean Corpuscular Hemoglobin 29.3 pg (25.0-34.0); Mean Corpuscular Hgb Conc 33.1 g/dL (32.0-36.0); Mean Corpuscular Volume 88.5 fL (80.0-100.0); Mean Platelet Volume 9.2 fL (9.4-12.4); Monocytes # (auto) 1.17 K/uL (0.11-0.59); Monocytes % (auto) 8.9 %; Neutrophils # (auto) 10.94 K/uL (1.40-6.50); Neutrophils % (auto) 83.1 %; Platelet Count 301 K/uL (130-400); RDW Coefficient of Variation 16.5 % (11.5-14.5); RDW Standard Deviation 53.1 fL (36.4-46.3); Red Blood Count 3.14 M/uL (4.20-5.40); White Blood Count 13.15 K/ul (4.8-10.8)
--- NOTE | 2024-10-23 13:04 | Emergency Department Note ---
Impression & Plan Elevated troponin, Shortness of breath, Hypoxia, Pleural effusion on right, Lethargic, Leukocytosis ED Provider Note CHIEF COMPLAINT: Shortness of breath HISTORY OF PRESENTING ILLNESS: The patient is a 64-year-old female with PMH HFpEF, PAD, type 2 diabetes, diabetic neuropathy, ESRD on dialysis who presents to the emergency department stating that she feels short of breath that began last evening. When she left the PCP office it was 83% and states that at home it was in the 70s. She does not use O2 at home. She denies dizziness, lightheadedness, confusion, chest pain, abdominal pain, nausea, vomiting, constipation, diarrhea, urinary symptoms. She states, "I am just tired and do not feel myself". She confirms that she had a fever last evening of 103 F. She confirms that she took Tylenol and the fever resolved. She confirms going to dialysis every Saturday and states that she had her regular scheduled dialysis today without complication. REVIEW OF SYSTEMS: See HPI for pertinent positives and pertinent negatives. ALLERGIES: See below MEDICATIONS: See below PAST MEDICAL HISTORY: See below PHYSICAL EXAM: VITALS: Vitals are noted on the nurse's note and reviewed by myself. Vital signs stable. GENERAL: 64-year-old female, sitting in a wheelchair, in no acute distress, nondiaphoretic, well-developed well-nourished. SKIN: Capillary refill less than 2 seconds. HEENT: Normocephalic. PERRLA. EOMI. Nares patent. Mucous membranes moist. Neck is supple without nuchal rigidity. HEART: Regular rate and rhythm without murmurs gallops or rubs. LUNGS: Clear to auscultation bilaterally without wheezes, rales or rhonchi. No retractions or accessory muscle use. ABDOMEN: Soft, nontender, without masses or organomegaly. No guarding or rebound tenderness. MUSCULOSKELETAL: No gross musculoskeletal defects. No pedal edema. No calf tenderness. NEURO: Patient was alert and oriented. No focal neurological deficits. DIFFERENTIAL DIAGNOSIS: CHF, acute coronary syndrome, pulmonary embolism, pneumothorax, pericarditis, myocarditis, endocarditis, pleural effusion, viral infection, anxiety, musculoskeletal pain, GERD, costochondritis, pneumonia, among others. ED COURSE AND MEDICAL DECISION MAKING: HISTORY FROM INDEPENDENT HISTORIAN: The patient herself. MEDICATIONS GIVEN: 2 g Rocephin IV MONITOR: Continuous cardiac rehabilitation specialist: Order was placed for continuous cardiac rehabilitation specialist. Patient was placed on the cardiac rehabilitation specialist and continuous pulse ox. Patient was noted to be in normal sinus rhythm at an initial rate of 90 bpm per my interpretation. EKG: EKG was interpreted by myself as normal sinus rhythm. No obvious arrhythmias. Known left axis deviation. Noted poor R wave progression, consider anterior CT vs lead placement vs LVH. INTERPRETATION OF LABS: I interpreted the labs with full lab results as below in the lab section of this note. Pertinent lab results discussed in the MDM section below. INTERPRETATION OF IMAGING: Imaging studies were interpreted by myself and read by radiology as per the imaging section of this note. Chest x-ray - Stable with CHF and right pleural effusion. CONSULTATIONS: On-call [facility] hospitalist - presented the patient and that she has a right sided pleural effusion, had a fever last night, leukocytosis, and hypoxia. Informed them that I ordered blood cultures, Pro- Olman, lactate, and started her on antibiotics. They agreed that they would evaluate the patient and admit her. MDM SUMMARY: I evaluated this 64-year-old female who presents emergency department stating that she is feeling short of breath. At primary care she states her oxygen was 83% and when she was at home it was in the 70s. She confirms feeling tired and not feeling like herself. She denies dizziness, lightheadedness, confusion, chest pain, abdominal pain, nausea, vomiting, constipation, diarrhea, urinary symptoms. She had an episode of a fever last evening. On exam she is sitting comfortably in her wheelchair. She is 93% on room air. Capillary refill less than 2 seconds. HEENT exam is unremarkable. Chest auscultation reveals RRR without murmurs. The lungs are clear to auscultation bilaterally without wheezing rhonchi or rales. No retractions or accessory muscle use. Patient is able to hold a conversation with me. The abdomen is soft and nontender. No pedal edema or calf tenderness. Chest x-ray shows stable CHF and a right-sided pleural effusion. When patient ambulated to triage initially she was hypoxic at 79%. When placed in the room she had dropped to 86% and was placed on 2 L nasal cannula. She remained within 96-99% on 2 L nasal cannula. Leukocytosis WBC elevated 13.15. Known anemia stable. RBC 3.14. Hemoglobin hematocrit 9.2/27.8. Electrolyte abnormalities and elevated creatinine 2.42. Patient is a dialysis patient. Sodium low at 133. Potassium lower at 3.1. Chloride low at 91. AST 26. ALT 20. Troponin elevated 159.5. Repeat troponin elevated 160.7. Procalcitonin elevated 0.92. Lactate 1.0. Results reviewed with the patient. Upper respiratory BioFire negative. Blood cultures were obtained before antibiotics were administered. The patient was started on 2 g Rocephin due to a reported fever last evening. Pleural effusion may be secondary to infectious cause. [facility] can be seen in detail above. They evaluated the patient and placed orders upon admission. Patient agrees with outlined treatment plan and all of her questions were answered. The patient was admitted in stable condition. DIAGNOSIS: Elevated troponin, shortness of breath, hypoxia, pleural effusion right, lethargic, leukocytosis The chart was completed utilizing [employer] Speech voice recognition software. Grammatical errors, random word insertions, pronoun errors, and incomplete sentences are an occasional consequence of this system due to software limitations, ambient noise, and hardware issues. Any formal questions or concerns about the content, text, or information contained within the body of this dictation should be directly addressed to the provider for clarification. Past Med/Surg History Problem List (Updated 10/23/24 @ 19:43 by Mehreen Villalba PA-C) Leukocytosis (Acute) Lethargic (Acute) Pleural effusion on right (Acute) Hypoxia (Acute) Shortness of breath (Acute) Elevated troponin (Acute) Hypoxia Hypokalemia Chronic pain ESRD on dialysis Pleural effusion, right Essential hypertension (HFpEF) heart failure with preserved ejection fraction Diabetes mellitus type 2 with complications Orthopnea Neuropathy Hyperkalemia Anemia (Acute) Renal hematoma, left Proteinuria Diabetic neuropathy PAD (peripheral artery disease) Irregular bowel habits Chronic heart failure with preserved ejection fraction (HFpEF) GERD (gastroesophageal reflux disease) (Chronic) Chronic constipation Vitamin D deficiency 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) Charcot's arthropathy Sleep apnea no cpap Dyslipidemia Chronic back pain Chronic venous insufficiency (Chronic) Osteoarthritis (Chronic) Medical History Hypervolemia Acute kidney injury superimposed on chronic kidney disease Acute kidney failure Chronic kidney disease, stage 4 (severe) Recurrent pleural effusion on right Chronic osteomyelitis Hypertension Non-traumatic rhabdomyolysis (02/2021) Postmenopausal bleeding Anemia of chronic disease Diabetic ulcer of left great toe PAD (peripheral artery disease) S/P right lower extremity angiogram, mechanical thrombectomy of pre-existing superficial femoral artery stent belen [place] Omni catheter, balloon angioplasty of the superficial femoral artery stent using 5 X 200 mm Reading balloon, balloon angioplasty of the superficial femoral artery 6 X 250 mm IN.PACT drug coated balloon, stent angioplasty of the superficial femoral artery using 5 X 150 mm INOVA bare metal stent, and debridement of the right lateral foot on 11/14/[address] Lomeli. S/P bilateral SFA stenting Morbid obesity BMI 45.7 Clostridium difficile colitis history (~11/2016) -- treated no problems since. Charcot's joint of foot due to diabetes Surgical History History of vascular surgery (04/20/22) L SFA Angio Extremity Unilateral Fem Pop Balloon Atherectomy History of bilateral cataract extraction Status post amputation of toe of right foot (11/14/20) amputation metatarsal w/ toe, R S/P vascular surgery (11/2020) R fem-pop [id number] w/ stent and angioplasty S/P femoral-popliteal bypass surgery S/P angioplasty (10/2019) RT SFA atherectomy/angioplasty w/ MARSHA S/P angioplasty (06/2019) LT SFA angioplastly with MARSHA History of cholecystectomy History of tooth extraction History of esophagogastroduodenoscopy (EGD) S/P epidural steroid injection H/O vascular surgery (01/2020) LT SFA atherectomy, MARSHA w/ supera stenting History of lumpectomy of right breast benign Status post tubal ligation Status post tonsillectomy Family History Mother Rheumatoid arthritis Father Emphysema of lung Peripheral artery disease Aunt Breast cancer MOMS SIDE Colorectal cancer MOMS SIDE Myocardial infarction MOMS SIDE Brother Prostate cancer Sister COPD (chronic obstructive pulmonary disease) Other No family history of adverse response to anesthesia Denies family history of Ovarian cancer CAD (coronary atherosclerotic disease) Social History Smoking Status: Former smoker Tobacco Type: Cigarettes Age Started Using Tobacco: 9; Age Quit Using Tobacco: 54; packs per day: 2; Smoking End Date: 11 years ago; Second Hand Exposure: No; Do You Dip or Chew Tobacco: No; Tobacco Cessation Education Requested by Patient: No Hx Alcohol Use: No Hx Substance Use: No Preferred Language: Irish Communication Ability: Effective Visual Impairment: No Limitations Hearing Ability: Normal Mid Level Game Designer Required: No Beliefs That Will Affect Care: None marital status: Current Living Situation: Spouse Current Living Situation Comment: lives with and son current occupational status: disabled How many Children do You have: 1 Other Information That Helps Us Care for You: No other: previous [facility] [employer] Feels Safe at Home: Yes Safety Concerns: Feels Safe At This Time Childhood Exposure to Second-Hand Smoke: Yes (father was a heavy smoker ) Diet: regular Diet Comment: regular caffeine: Yes (very little) during the past year weight has: remained stable Dental Care, Regularly: No Physical Activity Frequency: Does not Exercise Seatbelt Use: always Sunscreen Use: No Assistive Devices: Denture - Upper, Denture - Lower, Glasses and Other Assistive Devices Comment: electric wc, prosthetic right leg Allergies Allergies Allergy/AdvReac Type Severity Reaction Status Date / Time daptomycin Allergy Severe rhabdomyoly Verified 10/23/24 14:58 sis amoxicillin Allergy Intermediate HIVES & N/V Verified 10/23/24 14:58 clavulanic acid Allergy Intermediate HIVES & N/V Verified 10/23/24 14:58 vancomycin Allergy Intermediate pruritus Verified 10/23/24 14:58 sulfamethoxazole AdvReac Severe renal Verified 10/23/24 14:58 [From Bactrim] failure trimethoprim [From Bactrim] AdvReac Severe renal Verified 10/23/24 14:58 failure lisinopril AdvReac Intermediate NAUSEA/VOMI Verified 10/23/24 14:58 TING omeprazole AdvReac Intermediate Nausea Verified 10/23/24 14:58 Home Meds Home Medications Medication Instructions Recorded Confirmed polyethylene glycol 3350 17 17 g PO DAILY PRN Constipation 12/13/21 10/23/24 gram/dose oral powder (Miralax) aspirin 81 mg tablet,delayed 81 mg PO DAILY 11/15/22 10/23/24 release (Adult Low Dose Aspirin) sucroferric oxyhydroxide 500 mg 1,000 mg PO TIDWMEAL 08/13/24 10/23/24 chewable tablet (Velphoro) bumetanide 1 mg tablet 1 mg PO BID 10/23/24 10/23/24 ondansetron HCl 4 mg tablet 4 mg PO Q8H PRN Nausea And Vomiting 10/23/24 10/23/24 Previous Rx's Medication Instructions Recorded Prosthetic Socket replacement #1 ea 08/13/22 blood glucose control high and low #1 ea 04/03/23 solution (Accu-Chek Guide L1-L2 Control Solution) Socket replacement and supplies #1 ea 05/30/23 mecobalamin (vitamin B12) 1,000 1,000 mcg sublingual DAILY #90 tabs 01/16/24 mcg disintegrating tablet,sublingual amlodipine 10 mg tablet 10 mg PO QAM #90 tabs 08/28/24 metoprolol tartrate 25 mg tablet 25 mg PO DAILY #90 tabs 08/28/24 rosuvastatin 40 mg tablet 40 mg PO QAM #90 tabs 08/28/24 trazodone 50 mg tablet 25 mg (1/2 x 50 mg) PO HS #45 tabs 08/28/24 oxycodone 10 mg tablet 10 mg PO Q6H PRN pain #120 tabs 10/08/24 Results & Data (ED) Vital Signs Vital Signs - 24 hr 10/23/24 12:21 10/23/24 13:24 10/23/24 13:24 Temperature 36.5 C Temperature Source Skin Pulse Rate 93 H Pulse Rate [Right Finger] 86 Pulse Rate from SpO2 Sensor Respiratory Rate 24 20 Respiratory Effort / Characteristics Non-Labored Non-Labored Spontaneous Respiratory Depth Normal Normal Blood Pressure 113/68 Blood Pressure [Right Arm] 96/56 L Blood Pressure Mean 83 Blood Pressure Mean [Right Arm] 69 Pulse Oximetry 91 92 92 Oxygen Delivery Method Room Air Room Air Room Air Sepsis Recent Fever Within 48 Hours No Sepsis New/Unexplained Change in Mental Status N/A Sepsis Action Taken by Nursing No Action Required Oxygen Flow Rate - Titration Pulse Oximetry Post Tiitration 10/23/24 13:35 10/23/24 13:36 10/23/24 13:36 Temperature Temperature Source Pulse Rate 85 Pulse Rate [Right Finger] Pulse Rate from SpO2 Sensor Respiratory Rate Respiratory Effort / Characteristics Respiratory Depth Blood Pressure 130/64 130/64 Blood Pressure [Right Arm] Blood Pressure Mean 105 105 Blood Pressure Mean [Right Arm] Pulse Oximetry Oxygen Delivery Method Sepsis Recent Fever Within 48 Hours Sepsis New/Unexplained Change in Mental Status Sepsis Action Taken by Nursing Oxygen Flow Rate - Titration Pulse Oximetry Post Tiitration 10/23/24 13:36 10/23/24 13:45 10/23/24 13:48 Temperature Temperature Source Pulse Rate 84 83 Pulse Rate [Right Finger] Pulse Rate from SpO2 Sensor 84 83 Respiratory Rate 19 17 Respiratory Effort / Characteristics Respiratory Depth Blood Pressure Blood Pressure [Right Arm] Blood Pressure Mean Blood Pressure Mean [Right Arm] Pulse Oximetry 91 86 L 99 Oxygen Delivery Method Sepsis Recent Fever Within 48 Hours Sepsis New/Unexplained Change in Mental Status Sepsis Action Taken by Nursing Oxygen Flow Rate - Titration 2 Pulse Oximetry Post Tiitration 98 10/23/24 13:51 10/23/24 14:03 10/23/24 14:15 Temperature Temperature Source Pulse Rate 84 80 85 Pulse Rate [Right Finger] Pulse Rate from SpO2 Sensor 84 80 85 Respiratory Rate 20 15 21 Respiratory Effort / Characteristics Respiratory Depth Blood Pressure Blood Pressure [Right Arm] Blood Pressure Mean Blood Pressure Mean [Right Arm] Pulse Oximetry 95 98 98 Oxygen Delivery Method Sepsis Recent Fever Within 48 Hours Sepsis New/Unexplained Change in Mental Status Sepsis Action Taken by Nursing Oxygen Flow Rate - Titration Pulse Oximetry Post Tiitration 10/23/24 14:21 Temperature Temperature Source Pulse Rate 83 Pulse Rate [Right Finger] Pulse Rate from SpO2 Sensor 82 Respiratory Rate 21 Respiratory Effort / Characteristics Respiratory Depth Blood Pressure Blood Pressure [Right Arm] Blood Pressure Mean Blood Pressure Mean [Right Arm] Pulse Oximetry 97 Oxygen Delivery Method Sepsis Recent Fever Within 48 Hours Sepsis New/Unexplained Change in Mental Status Sepsis Action Taken by Nursing Oxygen Flow Rate - Titration Pulse Oximetry Post Tiitration Laboratory Data 10/23/24 12:37 10/23/24 12:37 Lab Results 10/23/24 10/23/24 10/23/24 Range/Units 12:37 13:25 14:10 WBC 13.15 H (4.8-10.8) K/ul RBC 3.14 L (4.20-5.40) M/uL Hgb 9.2 L (12.0-16.0) g/dl Hct 27.8 L (37.0-47.0) % MCV 88.5 (80.0-100.0) fL MCH 29.3 (25.0-34.0) pg MCHC 33.1 (32.0-36.0) g/dL RDW Std Deviation 53.1 H (36.4-46.3) fL RDW Coeff of Adelina 16.5 H (11.5-14.5) % Plt Count 301 (130-400) K/uL MPV 9.2 L (9.4-12.4) fL Immature Gran % (Auto) 1.1 % Neut % (Auto) 83.1 % Lymph % (Auto) 6.2 % Davidson % (Auto) 8.9 % Eos % (Auto) 0.2 % Baso % (Auto) 0.5 % Neut # (Auto) 10.94 H (1.40-6.50) K/uL Lymph # (Auto) 0.81 L (1.20-3.40) K/uL Davidson # (Auto) 1.17 H (0.11-0.59) K/uL Eos # (Auto) 0.02 (0.00-0.50) K/uL Baso # (Auto) 0.06 (0.00-0.20) K/uL Immature Gran # (Auto) 0.15 (0.01-0.20) K/uL PT 11.3 (9.0-12.0) Seconds INR 1.0 (0.9-1.1) APTT 34 H (21-31) Seconds PTT Ratio 1.3 Sodium 133 L (136-145) mmol/L Potassium 3.1 L (3.5-5.1) mmol/L Chloride 91 L (98-107) mmol/L Carbon Dioxide 34 H (21-32) mmol/L Anion Gap 8 (3-11) BUN 11 (6-23) mg/dl Creatinine 2.42 H (0.6-1.2) mg/dl Est Cr Clr Drug Dosing Not Reportable eGFR 21.65 BUN/Creatinine Ratio 4.5 L (10-20) Glucose 171 H (70-99(Fasting)) mg/dl Lactate 1.0 (0.4-2.0) mmol/L Calcium 8.3 L (8.6-10.3) mg/dl Total Bilirubin 0.4 (0.2-1.0) mg/dl AST 26 (13-39) U/L ALT 20 (7-52) U/L Alkaline Phosphatase 108 H (34-104) U/L Troponin I High Sens 159.5 H* (0-14) pg/ml Total Protein 7.6 (6.0-8.3) gm/dl Albumin 3.1 L (3.4-5.0) gm/dl Globulin 4.5 H (2.5-4.0) gm/dl Albumin/Globulin Ratio 0.7 L (0.9-2) Procalcitonin 0.92 H (0-0.5) ng/ml Adenovirus (PCR) Not Detected (NotDetected) B. pertussis DNA (PCR) Not Detected (NotDetected) B.parapertussis DNA PCR Not Detected (NotDetected) C. pneumoniae DNA (PCR) Not Detected (NotDetected) Coronavirus OC43 (PCR) Not Detected (NotDetected) Coronavirus HKU1 (PCR) Not Detected (NotDetected) Coronavirus 229E (PCR) Not Detected (NotDetected) SARS-CoV-2 (PCR) Not Detected (NotDetected) Coronavirus NL63 (PCR) Not Detected (NotDetected) Human Metapneumovir PCR Not Detected (NotDetected) Influenza Type A (PCR) Not Detected (NotDetected) Influenza Type B (PCR) Not Detected (NotDetected) M. pneumoniae (PCR) Not Detected (NotDetected) Parainfluenza 1 (PCR) Not Detected (NotDetected) Parainfluenza 2 (PCR) Not Detected (NotDetected) Parainfluenza 3 (PCR) Not Detected (NotDetected) Parainfluenza 4 (PCR) Not Detected (NotDetected) RSV (PCR) Not Detected (NotDetected) Entero/Rhino (PCR) Not Detected (NotDetected) 10/23/24 Range/Units 14:11 WBC (4.8-10.8) K/ul RBC (4.20-5.40) M/uL Hgb (12.0-16.0) g/dl Hct (37.0-47.0) % MCV (80.0-100.0) fL MCH (25.0-34.0) pg MCHC (32.0-36.0) g/dL RDW Std Deviation (36.4-46.3) fL RDW Coeff of Adelina (11.5-14.5) % Plt Count (130-400) K/uL MPV (9.4-12.4) fL Immature Gran % (Auto) % Neut % (Auto) % Lymph % (Auto) % Davidson % (Auto) % Eos % (Auto) % Baso % (Auto) % Neut # (Auto) (1.40-6.50) K/uL Lymph # (Auto) (1.20-3.40) K/uL Davidson # (Auto) (0.11-0.59) K/uL Eos # (Auto) (0.00-0.50) K/uL Baso # (Auto) (0.00-0.20) K/uL Immature Gran # (Auto) (0.01-0.20) K/uL PT (9.0-12.0) Seconds INR (0.9-1.1) APTT (21-31) Seconds PTT Ratio Sodium (136-145) mmol/L Potassium (3.5-5.1) mmol/L Chloride (98-107) mmol/L Carbon Dioxide (21-32) mmol/L Anion Gap (3-11) BUN (6-23) mg/dl Creatinine (0.6-1.2) mg/dl Est Cr Clr Drug Dosing eGFR BUN/Creatinine Ratio (10-20) Glucose (70-99(Fasting)) mg/dl Lactate (0.4-2.0) mmol/L Calcium (8.6-10.3) mg/dl Total Bilirubin (0.2-1.0) mg/dl AST (13-39) U/L ALT (7-52) U/L Alkaline Phosphatase (34-104) U/L Troponin I High Sens 160.7 H* (0-14) pg/ml Total Protein (6.0-8.3) gm/dl Albumin (3.4-5.0) gm/dl Globulin (2.5-4.0) gm/dl Albumin/Globulin Ratio (0.9-2) Procalcitonin (0-0.5) ng/ml Adenovirus (PCR) (NotDetected) B. pertussis DNA (PCR) (NotDetected) B.parapertussis DNA PCR (NotDetected) C. pneumoniae DNA (PCR) (NotDetected) Coronavirus OC43 (PCR) (NotDetected) Coronavirus HKU1 (PCR) (NotDetected) Coronavirus 229E (PCR) (NotDetected) SARS-CoV-2 (PCR) (NotDetected) Coronavirus NL63 (PCR) (NotDetected) Human Metapneumovir PCR (NotDetected) Influenza Type A (PCR) (NotDetected) Influenza Type B (PCR) (NotDetected) M. pneumoniae (PCR) (NotDetected) Parainfluenza 1 (PCR) (NotDetected) Parainfluenza 2 (PCR) (NotDetected) Parainfluenza 3 (PCR) (NotDetected) Parainfluenza 4 (PCR) (NotDetected) RSV (PCR) (NotDetected) Entero/Rhino (PCR) (NotDetected) Administered Medications Oxycodone HCl (Oxycodone Hcl Ir 5 Mg Tab (Immediate Release)) 10 mg PO Q6H PRN PRN Reason: pain Stop: 11/06/24 14:17 Last Admin: 10/23/24 18:08 Dose: 10 mg Documented By: YESICA Discontinued Medications Ceftriaxone Sodium (Rocephin) 2,000 mg in 50 mls @ 100 mls/hr IV NOW STA Stop: 10/23/24 14:53 Last Infusion: 10/23/24 15:38 Dose: Infused Documented By: Admin: 10/23/24 14:43 Dose: 100 mls/hr Documented By: AYE Potassium Chloride (Potassium Chloride Crtab 20 Meq Tabcr) 20 meq PO NOW STA Stop: 10/23/24 17:11 Last Admin: 10/23/24 18:06 Dose: 20 meq Documented By: YESICA Imaging Data Radiologist's Impression: Chest X-Ray 10/23/24 12:26 XR chest 1V not portable CLINICAL HISTORY: Chest pain, nonspecific COMPARISON STUDY: 01/22/2024 FINDINGS: Stable dialysis catheter. Stable cardiomegaly with stable pulmonary vascular congestion. Stable small right pleural effusion and associated consolidation at the right base. No pneumothorax. IMPRESSION: Stable exam with CHF and right pleural effusion. ACT 112: Negative or not required by law. Electronically signed by: Abdirashid Parada M.D. 10/23/2024 1:11 PM Discharge Plan Visit Data Chief Complaint: Shortness of Breath/Dyspnea Stated Complaint: SOB ED Provider: See [facility] Midlevel Provider: Mehreen Villalba Discharge Problem: Elevated troponin, Shortness of breath, Hypoxia, Pleural effusion on right, Lethargic, Leukocytosis Patient Disposition: Admitted As Inpatient Condition: Good Discharge Instructions Interventions: ED Discharge Assessment Last Done: 10/23/24 16:12 Discharge Problem: Leukocytosis Qualifiers: Leukocytosis type: unspecified Qualified Code(s): D72.829 - Elevated white blood cell count, unspecified
--- NOTE | 2024-10-23 13:12 | XRay Report ---
XR chest 1V not portable CLINICAL HISTORY: Chest pain, nonspecific COMPARISON STUDY: 01/22/2024 FINDINGS: Stable dialysis catheter. Stable cardiomegaly with stable pulmonary vascular congestion. St able small right pleural effusion and associated consolidation at the right base. No pneumothorax. IMPRESSION: Stable exam with CHF and right pleural effusion. ACT 112: Negative or not required by law. Electronically signed by: Abdirashid Parada M.D. 10/23/2024 1:11 PM
[2024-10-23 13:18] LABS: Alanine Aminotransferase 20 U/L (7-52); Albumin Globulin Ratio 0.7 (0.9-2); Albumin Level 3.1 gm/dl (3.4-5.0); Alkaline Phosphatase 108 U/L (34-104); Anion Gap 8 (3-11); Aspartate Aminotransferase 26 U/L (13-39); BUN Creatinine Ratio 4.5 (10-20); Bilirubin,Total 0.4 mg/dl (0.2-1.0); Blood Urea Nitrogen 11 mg/dl (6-23); Calcium 8.3 mg/dl (8.6-10.3); Carbon Dioxide 34 mmol/L (21-32); Chloride 91 mmol/L (98-107); Globulin 4.5 gm/dl (2.5-4.0); Glucose 171 mg/dl (70-99(Fasting)); Potassium 3.1 mmol/L (3.5-5.1); Sodium 133 mmol/L (136-145); Total Protein 7.6 gm/dl (6.0-8.3)
[2024-10-23 13:26] LABS: Partial Thromboplastin Ratio 1.3; Partial Thromboplastin Time 34 Seconds (21-31); Prothrombin Time 11.3 Seconds (9.0-12.0)
[2024-10-23 13:30] LABS: Troponin I High Sensitivity 159.5 pg/ml (0-14)
[2024-10-23] MEDS ORDERED: DOCUSATE SODIUM 100 MG CAP PO PRN (14:18)
[2024-10-23] MEDS ORDERED: POLYETHYLENE (MIRALAX) 17 GM PACK PO PRN (14:18)
[2024-10-23] MEDS ORDERED: LOPERAMIDE HCL 2 MG CAP PO PRN (14:18)
[2024-10-23] MEDS ORDERED: TRIAMCINOLONE ACET 0.5% CR 15 GM TUBE TOP PRN (14:18)
[2024-10-23] MEDS ORDERED: LEVALBUTEROL 1.25 MG/3 ML NEB NEB PRN (14:20)
[2024-10-23 14:23] LABS: Adenovirus PCR Not Detected (NotDetected); Bordetella parapertussis PCR Not Detected (NotDetected); Bordetella pertussis PCR Not Detected (NotDetected); Chlamydia pneumoniae PCR Not Detected (NotDetected); Coronavirus 229E PCR Not Detected (NotDetected); Coronavirus CoV-2 (COVID19)PCR Not Detected (NotDetected); Coronavirus HKU1 PCR Not Detected (NotDetected); Coronavirus NL63 PCR Not Detected (NotDetected); Coronavirus OC43PCR Not Detected (NotDetected); Human Metapneumovirus PCR Not Detected (NotDetected); Influenza A PCR Not Detected (NotDetected); Influenza B PCR Not Detected (NotDetected); Mycoplasma pneumoniae PCR Not Detected (NotDetected); Parainfluenza Virus 1 PCR Not Detected (NotDetected); Parainfluenza Virus 2 PCR Not Detected (NotDetected); Parainfluenza Virus 3 PCR Not Detected (NotDetected); Parainfluenza Virus 4 PCR Not Detected (NotDetected); Respiratory Syncytial VirusPCR Not Detected (NotDetected); Rhinovirus/Enterovirus PCR Not Detected (NotDetected)
--- NOTE | 2024-10-23 14:35 | History & Physical Report ---
Date of Service October 23, 2024 Assessment & Plan (1) Pleural effusion, right: Plan: Hypoxia and SOB in a 64 yo female with pleural effusion Patient with hypoxia now on 2 liters nasal cannula Will check biofire given her history of fever may consider HD tomorrow vs thoracocenthesis. (2) Leukocytosis: Plan: On rochepin. unknown source. will check blood cultures and monitor. (3) ESRD on dialysis: Plan: may require additional HD tomorrow (4) Essential hypertension: Plan: resume home meds (5) (HFpEF) heart failure with preserved ejection fraction: Plan: resume home meds (6) Diabetes mellitus type 2 with complications: Plan: she is off insulin at home. will monitor. History of Present Illness Chief Complaint: SOB Primary Care Provider: Andie Rodrigues DO 64 yo female with PMH of ESRD, peripheral vascular disease, hypertension, and diabetes. Patient presented to the ED with SOB upon exertion. Patient reports prior to going on dialysis she would have episodes of SOB and required multiple thoracocenthesis. However since she has been on dialysis this has not been a problem. Patient reports though that on saturday she was fatigued. That afternoon she slept in the afternoon which isn't her norm. On Saturday, she reports sleeping though the day. On Saturday and , patient reports having intermittent fevers. Patient reports no sick contacts, however last night she complained of orthopnea. Patient had dialysis today and was found to be under her dry weight but continued to feel SOB. and found to be hypoxic. Given her symptoms she came to the ED. Allergies Allergy/AdvReac Type Severity Reaction Status Date / Time daptomycin Allergy Severe rhabdomyoly Verified 10/23/24 14:58 sis amoxicillin Allergy Intermediate HIVES & N/V Verified 10/23/24 14:58 clavulanic acid Allergy Intermediate HIVES & N/V Verified 10/23/24 14:58 vancomycin Allergy Intermediate pruritus Verified 10/23/24 14:58 sulfamethoxazole AdvReac Severe renal Verified 10/23/24 14:58 [From Bactrim] failure trimethoprim [From Bactrim] AdvReac Severe renal Verified 10/23/24 14:58 failure lisinopril AdvReac Intermediate NAUSEA/VOMI Verified 10/23/24 14:58 TING omeprazole AdvReac Intermediate Nausea Verified 10/23/24 14:58 Home Medications Medication Instructions Recorded Confirmed Type polyethylene glycol 3350 17 17 g PO DAILY PRN Constipation 12/13/21 10/23/24 History gram/dose oral powder (Miralax) Prosthetic Socket replacement #1 ea 08/13/22 09/18/24 Rx aspirin 81 mg tablet,delayed 81 mg PO DAILY 11/15/22 10/23/24 History release (Adult Low Dose Aspirin) blood glucose control high and low #1 ea 04/03/23 09/18/24 Rx solution (Accu-Chek Guide L1-L2 Control Solution) Socket replacement and supplies #1 ea 05/30/23 09/18/24 Rx mecobalamin (vitamin B12) 1,000 1,000 mcg sublingual DAILY #90 tabs 01/16/24 10/23/24 Rx mcg disintegrating tablet,sublingual sucroferric oxyhydroxide 500 mg 1,000 mg PO TIDWMEAL 08/13/24 10/23/24 History chewable tablet (Velphoro) amlodipine 10 mg tablet 10 mg PO QAM #90 tabs 08/28/24 10/23/24 Rx metoprolol tartrate 25 mg tablet 25 mg PO DAILY #90 tabs 08/28/24 10/23/24 Rx rosuvastatin 40 mg tablet 40 mg PO QAM #90 tabs 08/28/24 10/23/24 Rx trazodone 50 mg tablet 25 mg (1/2 x 50 mg) PO HS #45 tabs 08/28/24 10/23/24 Rx oxycodone 10 mg tablet 10 mg PO Q6H PRN pain #120 tabs 10/08/24 10/23/24 Rx bumetanide 1 mg tablet 1 mg PO BID 10/23/24 10/23/24 History ondansetron HCl 4 mg tablet 4 mg PO Q8H PRN Nausea And Vomiting 10/23/24 10/23/24 History Past Med/Surg History Problem List Positive blood culture Anorexia Leukocytosis (Acute) Lethargic (Acute) Pleural effusion on right (Acute) Hypoxia (Acute) Shortness of breath (Acute) Elevated troponin (Acute) Hypoxia Hypokalemia Chronic pain ESRD on dialysis Pleural effusion, right Essential hypertension (HFpEF) heart failure with preserved ejection fraction Diabetes mellitus type 2 with complications Orthopnea Neuropathy Hyperkalemia Anemia (Acute) Renal hematoma, left Proteinuria Diabetic neuropathy PAD (peripheral artery disease) Irregular bowel habits Chronic heart failure with preserved ejection fraction (HFpEF) GERD (gastroesophageal reflux disease) (Chronic) Chronic constipation Vitamin D deficiency 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) Charcot's arthropathy Sleep apnea no cpap Dyslipidemia Chronic back pain Chronic venous insufficiency (Chronic) Osteoarthritis (Chronic) Medical History Hypervolemia Acute kidney injury superimposed on chronic kidney disease Acute kidney failure Chronic kidney disease, stage 4 (severe) Recurrent pleural effusion on right Chronic osteomyelitis Hypertension Non-traumatic rhabdomyolysis (02/2021) Postmenopausal bleeding Anemia of chronic disease Diabetic ulcer of left great toe PAD (peripheral artery disease) S/P right lower extremity angiogram, mechanical thrombectomy of pre-existing superficial femoral artery stent usinh Anjojet [place] Omni catheter, balloon angioplasty of the superficial femoral artery stent using 5 X 200 mm Serena balloon, balloon angioplasty of the superficial femoral artery 6 X 250 mm IN.PACT drug coated balloon, stent angioplasty of the superficial femoral artery using 5 X 150 mm INOVA bare metal stent, and debridement of the right lateral foot on 11/14/[address] Lomeli. S/P bilateral SFA stenting Morbid obesity BMI 45.7 Clostridium difficile colitis history (~11/2016) -- treated no problems since. Charcot's joint of foot due to diabetes Surgical History History of vascular surgery (04/20/22) L SFA Angio Extremity Unilateral Fem Pop Balloon Atherectomy History of bilateral cataract extraction Status post amputation of toe of right foot (11/14/20) amputation metatarsal w/ toe, R S/P vascular surgery (11/2020) R fem-pop [id number] w/ stent and angioplasty S/P femoral-popliteal bypass surgery S/P angioplasty (10/2019) RT SFA atherectomy/angioplasty w/ MARSHA S/P angioplasty (06/2019) LT SFA angioplastly with MARSHA History of cholecystectomy History of tooth extraction History of esophagogastroduodenoscopy (EGD) S/P epidural steroid injection H/O vascular surgery (01/2020) LT SFA atherectomy, MARSHA w/ supera stenting History of lumpectomy of right breast benign Status post tubal ligation Status post tonsillectomy Family History Mother Rheumatoid arthritis Father Emphysema of lung Peripheral artery disease Aunt Breast cancer MOMS SIDE Colorectal cancer MOMS SIDE Myocardial infarction MOMS SIDE Brother Prostate cancer Sister COPD (chronic obstructive pulmonary disease) Other No family history of adverse response to anesthesia Denies family history of Ovarian cancer CAD (coronary atherosclerotic disease) Social History Smoking Status: Former smoker Tobacco Type: Cigarettes Age Started Using Tobacco: 9; Age Quit Using Tobacco: 54; packs per day: 2; Smoking End Date: 11 years ago; Second Hand Exposure: No; Do You Dip or Chew Tobacco: No; Tobacco Cessation Education Requested by Patient: No Hx Alcohol Use: No Hx Substance Use: No Preferred Language: Haitian Communication Ability: Effective Visual Impairment: No Limitations Hearing Ability: Normal Emergency Vehicle Driver Required: No Beliefs That Will Affect Care: None marital status: Current Living Situation: Spouse Current Living Situation Comment: lives with and son current occupational status: disabled How many Children do You have: 1 Other Information That Helps Us Care for You: No other: previous worked at [employer] Feels Safe at Home: Yes Safety Concerns: Feels Safe At This Time Childhood Exposure to Second-Hand Smoke: Yes (father was a heavy smoker ) Diet: regular Diet Comment: regular caffeine: Yes (very little) during the past year weight has: remained stable Dental Care, Regularly: No Physical Activity Frequency: Does not Exercise Seatbelt Use: always Sunscreen Use: No Assistive Devices: Denture - Upper, Denture - Lower, Glasses and Other Assistive Devices Comment: electric wc, prosthetic right leg Review of Systems Constitutional: no fever and no body aches Eyes: no blind spots Ear, Nose, Mouth, Throat: no ear pain Respiratory: + dyspnea; no cough Cardiovascular: no chest pain Gastrointestinal: no abdominal pain Genitourinary: no dysuria Musculoskeletal: no back pain Integumentary: no rash Neurologic: no gait abnormality Psychiatric: no behavioral changes Endocrine: no fatigue Hematologic / Lymphatic: no easy bleeding Allergy / Immunological: no GI upset with certain foods Physical Exam Constitutional: WD/WN, vitals as above Eyes: PERRL, conjunctivae normal, anicteric sclerae ENMT: external ear and nose normal, oropharynx normal Neck: trachea midline, no thyromegaly Respiratory: normal respiratory effort (on nasal cannula) decrease breath sounds at right side. Cardiovascular: RRR, no murmur, no edema Gastrointestinal (Abdomen): normal bowel sounds, soft, nontender, no hepatosplenomegaly Musculoskeletal: no cyanosis or clubbing, extremities motor strength 5/5 Skin: no rashes, warm and dry Neurologic: PERRL, EOMI, accommodation nl, no face palsy, no dysarthria Psychiatric: A+Ox3, euthymic affect Lymphatic: no cervical or axillary lymphadenopathy Results & Data Results & Data Vital Signs (Past 12 Hours) Vital Signs Temp Pulse Pulse Resp BP BP Pulse Ox 10/23/24 13:45 86 L 10/23/24 13:35 85 10/23/24 13:24 92 10/23/24 13:24 86 20 96/56 L 92 10/23/24 12:21 36.5 C 93 H 24 113/68 91 O2 Del Method 10/23/24 13:45 10/23/24 13:35 10/23/24 13:24 Room Air 10/23/24 13:24 Room Air 10/23/24 12:21 Room Air PG Care Time/CCT Total # of Minutes Spent Total Time Spent with Patient: Total time spent is greater than 50% in coordination of care (as documented) at patient's floor/unit and/or counseling patient: Coding Level of Care Code 99383 INT INP/OBS CARE 3/75MIN Diagnoses Pleural effusion, right J90 Leukocytosis D72.829 Leukocytosis type: unspecified ESRD on dialysis N18.6; Z99.2 Essential hypertension I10 (HFpEF) heart failure with preserved ejection fraction I50.30 Diabetes mellitus type 2 with complications E11.8 (2) Leukocytosis Leukocytosis type: unspecified Qualified Code(s): D72.829 - Elevated white blood cell count, unspecified
[2024-10-23] MEDS: cefTRIAXone SODIUM 2,000 MG/50 ML BAG IV STA (14:43)
--- NOTE | 2024-10-23 14:46 | Nephrology Consultation ---
Date of Consultation October 23, 2024 Assessment & Plan (1) ESRD on dialysis: (2) Pleural effusion, right: (3) Diabetes mellitus type 2 with complications: (4) Essential hypertension: (5) Anemia: (6) Proteinuria: (7) Hypokalemia: (8) Hypoxia: Plan End-stage kidney disease, on hemodialysis Saturday, Saturday, Saturday at [facility] [place]. She had full dialysis treatment this morning, had about 3 L of UF and she left dialysis is 3 kg below her dry weight. Presented to ER with progressive shortness of breath and hypoxia for last few days, room air oxygen saturation was 80%, improved on nasal cannula oxygen. Chest x-ray showed mild pulmonary vascular congestion and small right pleural effusion. EKG with sinus arrhythmia and troponin was significantly elevated. Although there is slight pulmonary vascular congestion, had full dialysis treatment today, had 3 L UF and blood pressure currently low. Troponin was noted to be elevated. -- Will assess tomorrow for any need for dialysis if workup otherwise unremarkable and continues to have mild pulmonary vascular congestion. Adjust down estimated dry weight -- Dose medications for eGFR less than 10, left arm nephrology precaution. -- Continue Nephrocaps, PhosLo 1 tab TIDM -- Epogen 10,000 units with next dialysis -- KCl 20 mEq x 1 dose now -- continue Bumex 1 mg bid Thank you for allowing me to participate in your patient's care. It was a pleasure to see Jeanne. History of Present Illness Reason for Consultation: ESRD, presented with hypoxic respiratory failure. History of Present Illness Ms. Jeanne Simspon is a 64-year-old female with past medical history significant for end-stage kidney disease, hypertension, diabetes and peripheral vascular disease, presented to ER with progressive shortness of breath and hypoxia. Nephrology consult was requested for management of hemodialysis while inpatient. EMR records were reviewed in detail during patient's visit. Jeanne presented to the ER with progressive shortness of breath and hypoxia. She has been having shortness of breath at home for last few days associated with some cough and fever as well as chills. This morning she went for her regular dialysis session and her weight was found to be under her dry weight. She completed full dialysis treatment and had more than 2 L UF and she left the dialysis 3 kg under her dry weight. But she continued to have ongoing shortness of breath and was hypoxic. After dialysis she went to see her PCP where her oxygen saturation was around 80% and she was referred to ER for further evaluation. Chest x-ray in ER showed mild right-sided pleural effusion and some pulmonary vascular congestion. Blood pressure is relatively low at 96/56. Lab was notable for hypokalemia, potassium was 3.1, other electrolyte acceptable. Hemoglobin was 9.2. EKG with sinus arrhythmia. Troponin was significantly elevated at 160. Respiratory Biofire negative. 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 Renal biopsy done on 10/18/2022 showing classic diabetic nephropathy with nodular glomerulosclerosis, hyaline arteriolosclerosis, 50% IFTA, 2/10 glomeruli with global sclerosis, no immune complex mediated disease. Bx was complicated by perinephric bleeding and hematoma and worsening renal function and started dialysis via right IJ tunneled dialysis catheter. Eventually kidney function improved and she was taken off of dialysis in November 2022. Has right brachioce phalic AV fistula, has been functioning well. Has moderate degree proteinuria. Previously serologic and paraproteinemia workup was unremarkable. Denies chronic NSAID use. Has more than 40 years history of smoking since age 10 and quit smoking in around 2015. Denies alcohol intake. One of her uncle had history of kidney transplant, no known h/o kidney disease but it was thought to be due to a medication which caused the end-stage renal disease. , lives with her , has grown-up son. She has been on disability since her right below- knee amputation in 2020. Hypertension well controlled but lately diabetes seem to be poorly controlled. No h/o CAD. Has history of peripheral vascular disease. Had right BKA in 2020. She reports improvement in shortness of breath on nasal cannula oxygen. Denies chest pain. Allergies Allergy/AdvReac Type Severity Reaction Status Date / Time daptomycin Allergy Severe rhabdomyoly Verified 10/23/24 14:58 sis amoxicillin Allergy Intermediate HIVES & N/V Verified 10/23/24 14:58 clavulanic acid Allergy Intermediate HIVES & N/V Verified 10/23/24 14:58 vancomycin Allergy Intermediate pruritus Verified 10/23/24 14:58 sulfamethoxazole AdvReac Severe renal Verified 10/23/24 14:58 [From Bactrim] failure trimethoprim [From Bactrim] AdvReac Severe renal Verified 10/23/24 14:58 failure lisinopril AdvReac Intermediate NAUSEA/VOMI Verified 10/23/24 14:58 TING omeprazole AdvReac Intermediate Nausea Verified 10/23/24 14:58 Home Medications Medication Instructions Recorded Confirmed Type polyethylene glycol 3350 17 17 g PO DAILY PRN Constipation 12/13/21 10/23/24 History gram/dose oral powder (Miralax) Prosthetic Socket replacement #1 ea 08/13/22 09/18/24 Rx aspirin 81 mg tablet,delayed 81 mg PO DAILY 11/15/22 10/23/24 History release (Adult Low Dose Aspirin) blood glucose control high and low #1 ea 04/03/23 09/18/24 Rx solution (Accu-Chek Guide L1-L2 Control Solution) Socket replacement and supplies #1 ea 05/30/23 09/18/24 Rx mecobalamin (vitamin B12) 1,000 1,000 mcg sublingual DAILY #90 tabs 01/16/24 10/23/24 Rx mcg disintegrating tablet,sublingual sucroferric oxyhydroxide 500 mg 1,000 mg PO TIDWMEAL 08/13/24 10/23/24 History chewable tablet (Velphoro) amlodipine 10 mg tablet 10 mg PO QAM #90 tabs 08/28/24 10/23/24 Rx metoprolol tartrate 25 mg tablet 25 mg PO DAILY #90 tabs 08/28/24 10/23/24 Rx rosuvastatin 40 mg tablet 40 mg PO QAM #90 tabs 08/28/24 10/23/24 Rx trazodone 50 mg tablet 25 mg (1/2 x 50 mg) PO HS #45 tabs 08/28/24 10/23/24 Rx oxycodone 10 mg tablet 10 mg PO Q6H PRN pain #120 tabs 10/08/24 10/23/24 Rx bumetanide 1 mg tablet 1 mg PO BID 10/23/24 10/23/24 History ondansetron HCl 4 mg tablet 4 mg PO Q8H PRN Nausea And Vomiting 10/23/24 10/23/24 History Patient History Medical History Hypoxia Hypervolemia Acute kidney injury superimposed on chronic kidney disease Acute kidney failure Chronic kidney disease, stage 4 (severe) Recurrent pleural effusion on right Chronic osteomyelitis Hypertension Non-traumatic rhabdomyolysis (02/2021) Postmenopausal bleeding Anemia of chronic disease Diabetic ulcer of left great toe PAD (peripheral artery disease) Morbid obesity Clostridium difficile colitis Charcot's joint of foot due to diabetes Surgical History History of vascular surgery (04/20/22) History of bilateral cataract extraction Status post amputation of toe of right foot (11/14/20) S/P vascular surgery (11/2020) S/P femoral-popliteal bypass surgery S/P angioplasty (10/2019) S/P angioplasty (06/2019) History of cholecystectomy History of tooth extraction History of esophagogastroduodenoscopy (EGD) S/P epidural steroid injection H/O vascular surgery (01/2020) History of lumpectomy of right breast Status post tubal ligation Status post tonsillectomy Family History Mother Rheumatoid arthritis Father Emphysema of lung Peripheral artery disease Aunt Breast cancer Colorectal cancer Myocardial infarction Brother Prostate cancer Sister COPD (chronic obstructive pulmonary disease) Other No family history of adverse response to anesthesia Denies family history of Ovarian cancer CAD (coronary atherosclerotic disease) Social History Smoking Status: Former smoker Tobacco Type: Cigarettes Age Started Using Tobacco: 9; Age Quit Using Tobacco: 54; packs per day: 2; Smoking End Date: 11 years ago; Second Hand Exposure: No; Do You Dip or Chew Tobacco: No; Tobacco Cessation Education Requested by Patient: No Hx Alcohol Use: No Hx Substance Use: No Preferred Language: [place] Citizen Communication Ability: Effective Visual Impairment: No Limitations Hearing Ability: Normal Cemetery Warden Required: No Beliefs That Will Affect Care: None marital status: Current Living Situation: Spouse Current Living Situation Comment: lives with and son current occupational status: disabled How many Children do You have: 1 Other Information That Helps Us Care for You: No other: previous worked at [employer] Feels Safe at Home: Yes Safety Concerns: Feels Safe At This Time Childhood Exposure to Second-Hand Smoke: Yes (father was a heavy smoker ) Diet: regular Diet Comment: regular caffeine: Yes (very little) during the past year weight has: remained stable Dental Care, Regularly: No Physical Activity Frequency: Does not Exercise Seatbelt Use: always Sunscreen Use: No Assistive Devices: Denture - Upper, Denture - Lower, Glasses and Other Assistive Devices Comment: electric wc, prosthetic right leg Review of Systems Review of Systems: Detailed review of system was done and pertinent positives and negatives are mentioned above. Physical Exam Constitutional: WD/WN, vitals as above no acute distress Eyes: + anicteric sclerae Respiratory: no respiratory distress Auscultation: + rales (At right base) Cardiovascular: Rate/Rhythm: regular rate and regular rhythm Heart Sounds: normal S1 and normal S2 Extremities: + edema (left LE edema, rt BKA ) and + AV fistula (Left BC AVF with thrill and bruit) Musculoskeletal: Rt BKA Skin: no rashes, warm and dry Neurologic: no focal motor deficits Psychiatric: Orientation: alert and oriented x 3 Affect: euthymic affect Results & Data Vital Signs (Past 12 Hours) Vital Signs Temp Pulse Pulse Resp BP BP Pulse Ox 10/23/24 13:45 86 L 10/23/24 13:35 85 10/23/24 13:24 92 10/23/24 13:24 86 20 96/56 L 92 10/23/24 12:21 36.5 C 93 H 24 113/68 91 O2 Del Method 10/23/24 13:45 10/23/24 13:35 10/23/24 13:24 Room Air 10/23/24 13:24 Room Air 10/23/24 12:21 Room Air PG Care Time/CCT Total # of Minutes Spent Total Time Spent with Patient: Total time spent is greater than 50% in coordination of care (as documented) at patient's floor/unit and/or counseling patient: Coding Level of Care Code 50935 INT INP/OBS CARE 3/75MIN Diagnoses ESRD on dialysis N18.6; Z99.2 Pleural effusion, right J90 Diabetes mellitus type 2 with complications E11.8 Essential hypertension I10 Anemia D64.9 Anemia type: unspecified type Proteinuria R80.9 Hypokalemia E87.6 Hypoxia R09.02 (5) Anemia Anemia type: unspecified type Qualified Code(s): D64.9 - Anemia, unspecified
--- NOTE | 2024-10-23 15:02 | Electrocardiogram Report ---
Test Reason : Blood Pressure : */* mmHG Vent. Rate : 90 BPM Atrial Rate : 94 BPM P-R Int : 184 ms QRS Dur : 132 ms QT Int : 418 ms P-R-T Axes : * -43 42 degrees QTcB Int : 511 ms Sinus rhythm with marked sinus arrhythmia Left axis deviation Left ventricular hypertrophy with QRS widening Poor R wave progression, consider anterior GA vs. lead placement vs. LVH Abnormal ECG When compared with ECG of 16-Jan-2024 12:19, SD interval has decreased Confirmed by Martin Berry ([id number]) on 10/23/2024 3:01:38 PM Referred By: Confirmed By: Martin Berry
[2024-10-23] MEDS ORDERED: ACETAMINOPHEN 325 MG TAB PO PRN (16:33)
[2024-10-23] MEDS: POTASSIUM CHLORIDE CRTAB 20 MEQ TABCR PO STA (18:06)
[2024-10-23] MEDS: oxyCODONE HCL IR 5 MG TAB (IMMEDIATE RELEASE) PO PRN (18:08)
[2024-10-23] MEDS: BUMETANIDE 1 MG TAB PO SCH (20:17)
[2024-10-23] MEDS: PROCHLORPERAZINE MALEATE 5 MG TAB PO PRN (20:18)
[2024-10-23] MEDS: traZODone HCL 50 MG TAB PO SCH (22:06)
[2024-10-24 07:40] LABS: Hematocrit (blood only) 26.2 % (37.0-47.0); Hemoglobin 8.6 g/dl (12.0-16.0); Mean Corpuscular Hemoglobin 29.4 pg (25.0-34.0); Mean Corpuscular Hgb Conc 32.8 g/dL (32.0-36.0); Mean Corpuscular Volume 89.4 fL (80.0-100.0); Mean Platelet Volume 9.4 fL (9.4-12.4); Platelet Count 271 K/uL (130-400); RDW Coefficient of Variation 16.3 % (11.5-14.5); RDW Standard Deviation 53.7 fL (36.4-46.3); Red Blood Count 2.93 M/uL (4.20-5.40); White Blood Count 8.48 K/ul (4.8-10.8)
[2024-10-24 08:01] LABS: BUN Creatinine Ratio 5.4 (10-20); Calcium 8.5 mg/dl (8.6-10.3); Creatinine Clr Calc Pharmacy 17.7 ml/min; Potassium 3.3 mmol/L (3.5-5.1)
[2024-10-24] MEDS: amLODIPine BESYLATE 5 MG TAB PO SCH (08:01)
[2024-10-24] MEDS: ROSUVASTATIN CALCIUM 20 MG TAB PO SCH (08:02)
[2024-10-24] MEDS: ASPIRIN 81 MG ECTAB PO SCH (08:02)
[2024-10-24] MEDS: PANTOprazole 40 MG TAB PO SCH (08:02)
[2024-10-24] MEDS: METOPROLOL TARTRATE 25 MG TAB PO SCH (08:02)
[2024-10-24] MEDS: CALCIUM ACETATE 667 MG CAP/TAB PO SCH (08:03)
[2024-10-24] MEDS: MAGNESIUM OXIDE 400 MG TAB PO SCH (08:03)
[2024-10-24] MEDS: NEPHROCAPS PO SCH (08:03)
[2024-10-24] MEDS ORDERED: BUMETANIDE 1 MG TAB PO SCH (09:00)
[2024-10-24 10:14] LABS: A calco-baum cmplx NotReported Not Detected (NotDetected); Bact fragilis Not Reported Not Detected (NotDetected); Blood Culture Id Panel See PCR Comment (NotDetected); C auris Not Reported Not Detected (NotDetected); Calbicans Not Reported Not Detected (NotDetected); Candida glabrata Not Reported Not Detected (NotDetected); Candida krusei Not Reported Not Detected (NotDetected); Cneoformans/gatti Not Reported Not Detected (NotDetected); Cparapsilosis Not Reported Not Detected (NotDetected); Ctropicalis Not Reported Not Detected (NotDetected); E cloacae compx Not Reported Not Detected (NotDetected); Efaecalis Not Reported Not Detected (NotDetected); Efaecium Not Reported Not Detected (NotDetected); Enterobacterales Not Reported Not Detected (NotDetected); Escherichia coli Not Reported Not Detected (NotDetected); H influenzae Not Reported Not Detected (NotDetected); K aerogenes Not Reported Not Detected (NotDetected); Koxytoca Not Reported Not Detected (NotDetected); Kpneumoniae grp Not Reported Not Detected (NotDetected); Lmonocyt Not Reported Not Detected (NotDetected); N meningitidis Not Reported Not Detected (NotDetected); P aeruginosa Not Reported Not Detected (NotDetected); Proteus spp Not Reported Not Detected (NotDetected); Salmonella spp Not Reported Not Detected (NotDetected); Staph lugdunensis Not Reported Not Detected (NotDetected); Staph spp. Not Reported DETECTED (NotDetected); Staphaureus Not Reported Not Detected (NotDetected); Staphepi Not Reported Not Detected (NotDetected); Stenmaltophilia Not Reported Not Detected (NotDetected); Strep agal(GrpB) Not Reported Not Detected (NotDetected); Strep pneum Not Reported Not Detected (NotDetected); Strep pyog (GrpA) Not Reported Not Detected (NotDetected); Strep spp Not Reported Not Detected (NotDetected)
[2024-10-24 10:31] LABS: Staphylococcus spp. DETECTED (NotDetected)
[2024-10-24] MEDS: POTASSIUM CHLORIDE CRTAB 20 MEQ TABCR PO STA (11:02)
--- NOTE | 2024-10-24 11:06 | Nephrology Progress Note ---
Date of Service October 24, 2024 Assessment & Plan (1) ESRD on dialysis: Plan: ESRD attributed to biopsy proven DKD. HD MWF at [facility] under the care of Dr. Mei. Completed full treatment yesterday without complications. Left HD below dry weight. Jeanne continues to struggle with poor appetite and chronic nausea. EDW 104 kg previously -- left HD at 101.9 kg yesterday. Will attempt additional HD today for UF. Orders for HD were entered into the EHR and reviewed with parking officer. Outpatient Rx: 3.5 hours, 180 optiflux, 400/800, 2 K 135 Na 37 HCO3. AVF functioning well. TDC waiting for removal. Medications are appropriate for HD. Once Jeanne's symptoms have adequately improved, I suspect she could be safely discharged home and resume HD at [facility] as scheduled on Saturday. (2) Anemia: Plan: Maintained on Micera as outpatient - last dose October 07. Epogen 33908 units will be provided with HD this AM. (3) Shortness of breath: Plan: CXR demonstrating some pulmonary vascular congestion. Evaluation otherwise unrevealing. Symptoms improving. HD today for additional UF. (4) Anorexia: Plan: Chronic nausea and poor appetite. Symptoms suggestive of gastroparesis. Velphoro possibly contributing. Alternative binders may be considered in the outpatient setting. Jeanne is maintained on calcium acetate while inpatient. Outpatient follow up encouraged. EDW continues to be adjusted for weight loss. (5) Positive blood culture: Plan: 1/2 blood culture from admission +for GPC in clusters. No signs or symptoms of infection. TDC with clean exit site. Likely contaminate. Follow up cultures to be obtained after ~48 hours, if needed. TDC to be scheduled for removal. Admission and Anticipated Discharge Date Admission Date: October 23, 2024 Subjective No acute events overnight. Jeanne feels reasonably well this AM. She reports improvement in dyspnea. Supplemental oxygen seems to have helped. She was out of bed and ambulating in her hospital room without difficulty. Jeanne denies significant fluid retention or edema. She denies any cough. No fevers or chills. No chest pains or palpitations. She reports some mild stable orthopnea. Jeanne tolerated HD well yesterday; no complications with treatment. She would like to try an extra treatment today for additional UF as tolerated. Review of Systems Review of Systems: All systems reviewed & are unremarkable except as noted in HPI & below Physical Exam Constitutional: WD/WN, vitals as above no acute distress Eyes: + anicteric sclerae Respiratory: no respiratory distress Auscultation: + rales (At right base) Cardiovascular: Rate/Rhythm: regular rate and regular rhythm Heart Sounds: normal S1 and normal S2 Extremities: + edema (left LE edema, rt BKA ) and + AV fistula (Left BC AVF with thrill and bruit) Musculoskeletal: Rt BKA Skin: no rashes, warm and dry Neurologic: no focal motor deficits Psychiatric: Orientation: alert and oriented x 3 Affect: euthymic affect Results & Data Vital Signs (Past 12 Hours) Vital Signs Temp Pulse Pulse Resp BP Pulse Ox O2 Del Method 10/24/24 10:50 36.7 C 80 19 147/66 H 96 Nasal Cannula 10/24/24 09:00 76 10/24/24 09:00 Nasal Cannula 10/24/24 08:02 36.6 C 84 19 129/64 95 Nasal Cannula 10/24/24 03:06 36.5 C 79 20 146/67 H 94 Nasal Cannula O2 Flow Rate 10/24/24 10:50 2 10/24/24 09:00 10/24/24 09:00 2 10/24/24 08:02 2 10/24/24 03:06 Laboratory Results Laboratory Results - last 24 hr 10/23/24 10/23/24 10/23/24 12:37 13:25 14:10 WBC 13.15 H RBC 3.14 L Hgb 9.2 L Hct 27.8 L MCV 88.5 MCH 29.3 MCHC 33.1 RDW Std Deviation 53.1 H RDW Coeff of Adelina 16.5 H Plt Count 301 MPV 9.2 L Immature Gran % (Auto) 1.1 Neut % (Auto) 83.1 Lymph % (Auto) 6.2 [place] % (Auto) 8.9 Eos % (Auto) 0.2 Baso % (Auto) 0.5 Neut # (Auto) 10.94 H Lymph # (Auto) 0.81 L [place] # (Auto) 1.17 H Eos # (Auto) 0.02 Baso # (Auto) 0.06 Immature Gran # (Auto) 0.15 PT 11.3 INR 1.0 APTT 34 H PTT Ratio 1.3 Sodium 133 L Potassium 3.1 L Chloride 91 L Carbon Dioxide 34 H Anion Gap 8 BUN 11 Creatinine 2.42 H Est Cr Clr Drug Dosing Not Reportable eGFR 21.65 BUN/Creatinine Ratio 4.5 L Glucose 171 H Lactate 1.0 Calcium 8.3 L Total Bilirubin 0.4 AST 26 ALT 20 Alkaline Phosphatase 108 H Troponin I High Sens 159.5 H* B-Natriuretic Peptide Total Protein 7.6 Albumin 3.1 L Globulin 4.5 H Albumin/Globulin Ratio 0.7 L Procalcitonin 0.92 H Nasal Screen MRSA (PCR) Adenovirus (PCR) Not Detected B. pertussis DNA (PCR) Not Detected B.parapertussis DNA PCR Not Detected C. pneumoniae DNA (PCR) Not Detected Coronavirus OC43 (PCR) Not Detected Coronavirus HKU1 (PCR) Not Detected Coronavirus 229E (PCR) Not Detected SARS-CoV-2 (PCR) Not Detected Coronavirus NL63 (PCR) Not Detected Human Metapneumovir PCR Not Detected Influenza Type A (PCR) Not Detected Influenza Type B (PCR) Not Detected M. pneumoniae (PCR) Not Detected Parainfluenza 1 (PCR) Not Detected Parainfluenza 2 (PCR) Not Detected Parainfluenza 3 (PCR) Not Detected Parainfluenza 4 (PCR) Not Detected RSV (PCR) Not Detected Entero/Rhino (PCR) Not Detected Staphylococcus sp PCR DETECTED A Bld Cult ID Panel PCR See PCR Comment 10/23/24 10/23/24 10/24/24 14:11 18:00 07:25 WBC 8.48 RBC 2.93 L Hgb 8.6 L Hct 26.2 L MCV 89.4 MCH 29.4 MCHC 32.8 RDW Std Deviation 53.7 H RDW Coeff of Adelina 16.3 H Plt Count 271 MPV 9.4 Immature Gran % (Auto) Neut % (Auto) Lymph % (Auto) [place] % (Auto) Eos % (Auto) Baso % (Auto) Neut # (Auto) Lymph # (Auto) [place] # (Auto) Eos # (Auto) Baso # (Auto) Immature Gran # (Auto) PT INR APTT PTT Ratio Sodium 132 L Potassium 3.3 L Chloride 90 L Carbon Dioxide 35 H Anion Gap 7 BUN 19 Creatinine 3.52 H D Est Cr Clr Drug Dosing 17.7 eGFR 13.81 BUN/Creatinine Ratio 5.4 L Glucose 106 H Lactate Calcium 8.5 L Total Bilirubin AST ALT Alkaline Phosphatase Troponin I High Sens 160.7 H* B-Natriuretic Peptide 514 H Total Protein Albumin Globulin Albumin/Globulin Ratio Procalcitonin Nasal Screen MRSA (PCR) Negative Adenovirus (PCR) B. pertussis DNA (PCR) B.parapertussis DNA PCR C. pneumoniae DNA (PCR) Coronavirus OC43 (PCR) Coronavirus HKU1 (PCR) Coronavirus 229E (PCR) SARS-CoV-2 (PCR) Coronavirus NL63 (PCR) Human Metapneumovir PCR Influenza Type A (PCR) Influenza Type B (PCR) M. pneumoniae (PCR) Parainfluenza 1 (PCR) Parainfluenza 2 (PCR) Parainfluenza 3 (PCR) Parainfluenza 4 (PCR) RSV (PCR) Entero/Rhino (PCR) Staphylococcus sp PCR Bld Cult ID Panel PCR PG Care Time/CCT Total # of Minutes Spent Total Time Spent with Patient: Total time spent is greater than 50% in coordination of care (as documented) at patient's floor/unit and/or counseling patient: Coding Level of Care Code 09150 SUB INP/OBS CARE 3/50MIN Diagnoses ESRD on dialysis N18.6; Z99.2 Anemia D64.9 Anemia type: unspecified type Shortness of breath R06.02 Anorexia R63.0 Positive blood culture R78.81 (2) Anemia Anemia type: unspecified type Qualified Code(s): D64.9 - Anemia, unspecified
[2024-10-24] MEDS: EPOETIN ALFA 20,000 UNITS/ML VIAL IV ONE (11:34)
[2024-10-24] MEDS ORDERED: VANCOMYCIN CONSULT ACTIVE PRN (17:17)
[2024-10-24] MEDS ORDERED: GLUCAGON FOR INJ 1 MG VIAL SQ PRN (17:19)
[2024-10-24] MEDS ORDERED: CARBOHYDRATES FOR HYPOGLYCEMIA PO PRN (17:19)
[2024-10-24] MEDS ORDERED: GLUCOSE 10 TAB/TUBE PO PRN (17:19)
[2024-10-24] MEDS ORDERED: GLUCOSE 40% GEL 15 GM TUBE PO PRN (17:19)
[2024-10-24] MEDS ORDERED: DEXTROSE 50% 50 ML SYRINGE IV PRN (17:19)
[2024-10-24] MEDS ORDERED: PHARMACY GLYCEMIC MGMT CONSULT PRN (17:19)
[2024-10-24] MEDS: cefTRIAXone SODIUM 2,000 MG/50 ML BAG IV SCH (19:36)
--- NOTE | 2024-10-24 19:55 | XRay Report ---
EXAM: XR chest 2V PA/lateral CLINICAL HISTORY: pleural effusion. TECHNIQUE: X-ray images of the chest were obtained in posteroanterior (PA) and lateral projections. COMPARISON: X-ray dated 01/22/2024. FINDINGS: Pulmonary Parenchyma: Exaggerated vascular and interstitial lung markings bilaterally. Ill-defined fluffy opacities in the bilateral lower lung zones. New finding. Mild right pleural effusion with right basilar atelectasis. Clear left costophrenic angle. Heart and Mediastinum: Heart size and shape are normal. No mediastinal widening or masses. Prominent hilar vascular changes. Right-sided central venous line, its tip in the right atrium. Bony Thorax: Spine degenerative changes. Soft Tissues: Soft tissues overlying the chest wall are unremarkable. IMPRESSION: 1. Previously, mild to moderate pleural effusion was noted; now, in the current scan, mild right-sided pleural effusion with underlying collapse and consolidation. 2. Exaggerated vascular and interstitial lung markings with ill-defined lower zone fluffy opacities and a prominent hilar vascular shadow. Congestion cannot be excluded. 3. The right central venous line, its tip in the right atrium. Electronically signed by Clement Carrasquillo 10-24-2024 7:55 PM
[2024-10-24] MEDS: VANCOMYCIN HCL 1,500 MG in SODIUM CHLORIDE 0.9% 500 ML IV ONE (20:19)
[2024-10-24] MEDS: DOXYCYCLINE HYCLATE 100 MG CAP PO SCH (21:27)
[2024-10-24] MEDS: INSULIN ASPART PER UNIT CHARGE SC SCH (21:28)
--- NOTE | 2024-10-24 23:49 | Hospitalist Progress Note ---
Date of Service October 24, 2024 Assessment & Plan (1) Positive blood culture: Plan: Concern over 1 set of blood cultures which appears to be positive for staph aureus. Will repeat blood cultures today. On vanco and doxy may need HD catheter removed. will obtain echocardiogram. (2) Pleural effusion, right: Plan: Hypoxia and SOB in a 64 yo female with plerual effusion Patient with hypoxia now on 2 liters nasal cannula BIOFIRE negative. SYmptoms improved with additoonal HD (3) Leukocytosis: Plan: On rochepin. unknown source. will check blood cultures and monitor. (4) ESRD on dialysis: Plan: may require additional HD tomorrow (5) Essential hypertension: Plan: resume home meds (6) (HFpEF) heart failure with preserved ejection fraction: Plan: resume home meds (7) Diabetes mellitus type 2 with complications: Admission and Anticipated Discharge Date Admission Date: October 23, 2024 Subjective Patient reports feeling better after dialysis. Physical Exam Constitutional: WD/WN, vitals as above Eyes: PERRL, conjunctivae normal, anicteric sclerae ENMT: external ear and nose normal, oropharynx normal Neck: trachea midline, no thyromegaly Respiratory: normal respiratory effort (on nasal cannula) Cardiovascular: RRR, no murmur, no edema Gastrointestinal (Abdomen): normal bowel sounds, soft, nontender, no hepatosplenomegaly Musculoskeletal: no cyanosis or clubbing, extremities motor strength 5/5 Skin: no rashes, warm and dry Neurologic: PERRL, EOMI, accommodation nl, no face palsy, no dysarthria Psychiatric: A+Ox3, euthymic affect Lymphatic: no cervical or axillary lymphadenopathy Results & Data Results & Data Vital Signs (Past 12 Hours) Vital Signs Temp Pulse Pulse Pulse Resp BP BP 10/24/24 23:02 36.7 C 81 18 137/68 10/24/24 20:02 10/24/24 19:53 36.8 C 78 18 130/55 L 10/24/24 15:09 36.6 C 76 19 129/52 L 10/24/24 13:30 36.5 C 71 121/51 L 10/24/24 13:00 70 97/64 L 10/24/24 12:30 68 109/51 L 10/24/24 12:00 69 122/55 L Pulse Ox O2 Del Method 10/24/24 23:02 95 Room Air 10/24/24 20:02 Room Air 10/24/24 19:53 94 Room Air 10/24/24 15:09 94 Room Air 10/24/24 13:30 10/24/24 13:00 10/24/24 12:30 10/24/24 12:00 PG Care Time/CCT Total # of Minutes Spent Total Time Spent with Patient: Total time spent is greater than 50% in coordination of care (as documented) at patient's floor/unit and/or counseling patient: Coding Level of Care Code 91888 SUB INP/OBS CARE 3/50MIN Diagnoses Positive blood culture R78.81 Pleural effusion, right J90 Leukocytosis D72.829 Leukocytosis type: unspecified ESRD on dialysis N18.6; Z99.2 Essential hypertension I10 (HFpEF) heart failure with preserved ejection fraction I50.30 Diabetes mellitus type 2 with complications E11.8 (3) Leukocytosis Leukocytosis type: unspecified Qualified Code(s): D72.829 - Elevated white blood cell count, unspecified
[2024-10-25 07:03] VITALS: RESP 19
[2024-10-25 07:54] LABS: Hematocrit (blood only) 30.8 % (37.0-47.0); Hemoglobin 9.9 g/dl (12.0-16.0); Mean Corpuscular Hemoglobin 29.2 pg (25.0-34.0); Mean Corpuscular Hgb Conc 32.1 g/dL (32.0-36.0); Mean Corpuscular Volume 90.9 fL (80.0-100.0); Mean Platelet Volume 9.5 fL (9.4-12.4); Platelet Count 347 K/uL (130-400); RDW Coefficient of Variation 16.7 % (11.5-14.5); Red Blood Count 3.39 M/uL (4.20-5.40); White Blood Count 10.99 K/ul (4.8-10.8)
[2024-10-25 08:22] LABS: Estimated Average Glucose 160 mg/dl; Hemoglobin A1C 7.2 % (4.5-5.6)
[2024-10-25 08:42] LABS: BUN Creatinine Ratio 4.5 (10-20); C Reactive Protein 10.02 mg/dl (0-0.5); Creatinine Clr Calc Pharmacy 16.4 ml/min; Potassium 3.5 mmol/L (3.5-5.1)
--- NOTE | 2024-10-25 10:11 | Nephrology Progress Note ---
Date of Service October 25, 2024 Assessment & Plan (1) ESRD on dialysis: Plan: ESRD attributed to biopsy proven DKD. HD MWF at [facility] under the care of Dr. Mei. EDW requiring adjustment to account for ongoing weight loss. Completed 2 hour treatment yesterday for additional UF. Tolerated HD well. Volume status euvolemic. BP acceptable. Electrolytes normal. Next HD tomorrow. Outpatient Rx: 3.5 hours, 180 optiflux, 400/800, 2 K 135 Na 37 HCO3. EDW 101 kg. AVF somewhat unreliable due to difficulty with needle placement - possibly due to overlying scar tissue and depth of the vessel. TDC used for treatment yesterday. Once the AVF is reliably cannulated, the TDC can be removed. An US of the AVF has been requested to access for areas of stenosis. Medications are appropriate for HD. (2) Anemia: Plan: Epogen 03493 units provided with HD yesterday. (3) Shortness of breath: Plan: CXR demonstrating some pulmonary vascular congestion. Symptoms improved with UF. EDW adjusted accordingly. (4) Anorexia: Plan: Chronic nausea and poor appetite. Symptoms suggestive of gastroparesis. Velphoro possibly contributing. Alternative binders may be considered in the outpatient setting. Jeanne is maintained on calcium acetate while inpatient. \ EDW continues to be adjusted for weight loss. (5) Positive blood culture: Plan: 1/2 blood culture from admission +for GPC in clusters. Repeat cultures were sent yesterday. WBC 10.9, otherwise no signs or symptoms of infection. TDC with clean exit site. I suspect the positive culture is a contaminate. Vanco was provided x 1 dose yesterday. Jeanne remains on ceftriaxone and doxycycline. Management per hospitalist team. A TTE is being obtained today. Admission and Anticipated Discharge Date Admission Date: October 23, 2024 Subjective No acute events overnight. Jeanne tolerated HD well yesterday. TDC was used for dialysis. Unfortunately, the AVF appears to be deep with overlying scar tissue that has made consistent cannulation somewhat unreliable. The TDC is functioning well. Jeanne reports a recent infiltration during cannulation of the AVF but no bruising or pain. She worries that the TDC is not ready for removal. Thankfully, Jeanne is breathing comfortably following hemodialysis. We were able to remove an additional 2.1 L with treatment. She denies shortness of breath at this time. Jeanne has not experienced fevers or chills. She continues to endorse some nausea and poor appetite. Otherwise, she feels well. Review of Systems Review of Systems: All systems reviewed & are unremarkable except as noted in HPI & below Physical Exam Constitutional: WD/WN, vitals as above no acute distress Eyes: + anicteric sclerae Neck: normal visual inspection and trachea midline RIJ TDC with clean exit site Respiratory: normal respiratory effort; no respiratory distress Auscultation: lungs clear to auscultation bilaterally Cardiovascular: Rate/Rhythm: regular rate and regular rhythm Heart Sounds: normal S1 and normal S2 Extremities: + edema (improved left LE edema, rt BKA ) and + AV fistula (Left BB AVF with thrill and bruit) Skin: + dry skin; no jaundice Neurologic: no focal motor deficits Psychiatric: Orientation: alert and oriented x 3 Affect: euthymic affect Results & Data Vital Signs (Past 12 Hours) Vital Signs Temp Pulse Pulse Resp BP Pulse Ox O2 Del Method 10/25/24 07:44 78 10/25/24 07:44 Room Air 10/25/24 07:02 36.4 C L 89 19 135/57 L 98 Room Air 10/25/24 02:55 36.7 C 79 18 155/64 H 93 Room Air 10/25/24 00:00 81 10/24/24 23:02 36.7 C 81 18 137/68 95 Room Air Laboratory Results Laboratory Results - last 24 hr 10/23/24 10/25/24 14:10 07:10 WBC 10.99 H RBC 3.39 L Hgb 9.9 L Hct 30.8 L MCV 90.9 MCH 29.2 MCHC 32.1 RDW Std Deviation 56.0 H RDW Coeff of Adelina 16.7 H Plt Count 347 MPV 9.5 Sodium 134 L Potassium 3.5 Chloride 97 L Carbon Dioxide 29 Anion Gap 8 BUN 17 Creatinine 3.80 H Est Cr Clr Drug Dosing 16.4 eGFR 12.60 BUN/Creatinine Ratio 4.5 L Glucose 148 H Estimat Average Glucose 160 Hemoglobin A1c 7.2 H Calcium 9.0 C-Reactive Protein 10.02 H B-Natriuretic Peptide 549 H Procalcitonin 1.59 H Staphylococcus sp PCR DETECTED A Bld Cult ID Panel PCR See PCR Comment PG Care Time/CCT Total # of Minutes Spent Total Time Spent with Patient: Total time spent is greater than 50% in coordination of care (as documented) at patient's floor/unit and/or counseling patient: Coding Level of Care Code 93794 SUB INP/OBS CARE 3/50MIN Diagnoses ESRD on dialysis N18.6; Z99.2 Anemia D64.9 Anemia type: unspecified type Shortness of breath R06.02 Anorexia R63.0 Positive blood culture R78.81 (2) Anemia Anemia type: unspecified type Qualified Code(s): D64.9 - Anemia, unspecified
[2024-10-25 11:49] VITALS: BP 117/52; TEMP 98.4; O2SAT 97
--- NOTE | 2024-10-25 13:43 | XCELERA ---
[id number]
[2024-10-25] MEDS: HEPARIN SOD 5,000 UNIT/0.5 ML VIAL SQ SCH (14:15)
--- NOTE | 2024-10-25 14:35 | Discharge Summary ---
Discharge Summary Date of Service October 25, 2024 Principal Dx & Hospital Course #1 = Principal Diagnosis (1) Positive blood culture: Concern over 1 set of blood cultures which appears to be positive for staph aureus. Will repeat blood cultures today. On vanco and doxy may need HD catheter removed. will obtain echocardiogram. (2) Pleural effusion, right: Hypoxia and SOB in a 64 yo female with plerual effusion Patient with hypoxia now on 2 liters nasal cannula BIOFIRE negative. SYmptoms improved with additoonal HD (3) Leukocytosis: On rochepin. unknown source. will check blood cultures and monitor. (4) ESRD on dialysis: may require additional HD tomorrow (5) Essential hypertension: resume home meds (6) (HFpEF) heart failure with preserved ejection fraction: resume home meds (7) Diabetes mellitus type 2 with complications: Admission HPI Per Admitting Provider 64 yo female with PMH of ESRD, peripheral vascular disease, hypertension, and diabetes. Patient presented to the ED with SOB upon exertion. Patient reports prior to going on dialysis she would have episodes of SOB and required multiple thoracocenthesis. However since she has been on dialysis this has not been a problem. Patient reports though that on saturday she was fatigued. That afternoon she slept in the afternoon which isn't her norm. On Saturday, she reports sleeping though the day. On Saturday and , patient reports having intermittent fevers. Patient reports no sick contacts, however last night she complained of orthopnea. Patient had dialysis today and was found to be under her dry weight but continued to feel SOB. and found to be hypoxic. Given her symptoms she came to the ED. Discharge Plan Discharge Items Patient Disposition: Home - Self-Care Reason For Visit: SOB/HYPOXIA Discharge Diagnosis: SOB Condition on Discharge: Good Activity: Resume your previous activity Non-emergency contact: Primary Care Provider Call non-emergency contact if: you have any medication questions Follow-up/Referrals: Andie Rodrigues DO [Primary Care Provider] - Diet: Dialysis Renal Addtl Attending Provider Instructions: The extra dialysis helped with removing the fluid on the right side of your chest. The fluid remains but it is much less. At this point, I will not recommend to have the fluid drained with a needle as this improved with dialysis. PLease continue your current meds and start antibiotics tonight for 5 more days. Please followup with PCP in 1-2 weeks. With doxyccyline please limit sunlight. Pending Studies at Discharge: No Stand-Alone Forms: My [facility] [employer], Smoking Cessation Medications and DC Order Prescriptions: New cefpodoxime 200 mg tablet 200 mg PO BID Qty: 10 0RF Rx Instructions: must administer with a meal/food firs dose tonight doxycycline monohydrate 100 mg tablet 100 mg PO BID Qty: 10 0RF Rx Instructions: first dose tonight Continued (DME) Prosthetic Socket replacement See Rx Instructions .Route .MEDSUPPLY Qty: 1 0RF Rx Instructions: As directed. Patient states she is being fitted for a new prosthetic. (DME) Accu-Chek Guide L1-L2 Ctrl Nancy Solution See Rx Instructions .Route Qty: 1 0RF Rx Instructions: As directed mecobalamin (vitamin B12) 1,000 mcg tablet,disintegrating 1,000 mcg sublingual DAILY Qty: 90 1RF Rx Instructions: place tablet under tongue and allow to dissolve for at least 30 secs before swallowing. amlodipine 10 mg tablet 10 mg PO QAM Qty: 90 3RF trazodone 50 mg tablet 25 mg PO HS Qty: 45 3RF rosuvastatin 40 mg tablet 40 mg PO QAM Qty: 90 3RF metoprolol tartrate 25 mg tablet 25 mg PO DAILY Qty: 90 3RF oxycodone 10 mg tablet 10 mg PO Q6H PRN (Reason: pain) Qty: 120 0RF polyethylene glycol 3350 [Miralax] 17 gram/dose powder 17 g PO DAILY PRN (Reason: Constipation) aspirin [Adult Low Dose Aspirin] 81 mg tablet,delayed release (DR/EC) 81 mg PO DAILY (DME) Socket replacement and supplies See Rx Instructions .Route .MEDSUPPLY Qty: 1 0RF Rx Instructions: As directed. Level K2 Velphoro 500 mg tablet,chewable 1,000 mg PO TIDWMEAL Rx Instructions: with meals ondansetron HCl 4 mg tablet 4 mg PO Q8H PRN (Reason: Nausea And Vomiting) bumetanide 1 mg tablet 1 mg PO BID Discharge Orders: Discharge Order (Routine); Ordered 10/25/24 Ordered By: Venu Soria/Other Patient Handouts: Managing Type 2 Diabetes Admission Data Admit Date/Time: 10/23/24 14:31 Attending Provider: Venu Sweeney Admit Provider: Venu Sweeney Primary Care Provider: Andie Rodrigues Other Providers: Moise Hunt; Reyna Mei; Gab Daily; Sarai Resendiz; Venu Sweeney Hospital Stay Data Consultations 10/23/24 14:04 ED Decision to Admit Stat 10/23/24 14:13 Consult Nephrology Routine Diagnostic Imagining Performed 10/25/24 10:28 hemodialysis fistula Routine Pending Results Patient Have Any Pending Studies at Discharge: No Discharge Instructions Given to Patient (Per Discharging Provider) The extra dialysis helped with removing the fluid on the right side of your chest. The fluid remains but it is much less. At this point, I will not recommend to have the fluid drained with a needle as this improved with dialysis. PLease continue your current meds and start antibiotics tonight for 5 more days. Please followup with PCP in 1-2 weeks. With doxyccyline please limit sunlight. Coding Diagnoses Positive blood culture R78.81 Pleural effusion, right J90 Leukocytosis D72.829 Leukocytosis type: unspecified ESRD on dialysis N18.6; Z99.2 Essential hypertension I10 (HFpEF) heart failure with preserved ejection fraction I50.30 Diabetes mellitus type 2 with complications E11.8
[2024-10-25 14:38] VITALS: PULSE 81
--- NOTE | 2024-10-25 16:09 | Ultrasound Report ---
AV FISTULA ULTRASOUND LEFT UPPER EXTREMITY INDICATION: Pain TECHNIQUE: Grayscale and color Doppler evaluation of the LEFT upper extremity AV fistula was performed. A duplex Doppler study was performed, consisting of integrated two-dimensional (2D) real-time imaging: Color flow Doppler and Doppler spectral analysis. COMPARISON: None. FINDINGS: Significant elevated flow velocity reaching up to 708 cm/s seen about 2 cm upstream to the brachial artery-basilic vein anastomosis. IMPRESSION: Significantly elevated flow velocity reaching up to 708 cm/s seen about 2 cm upstream to brachial artery-basilic vein anastomosis which may be due to stenosis. Electronically signed by Nghia Sandy 10-25-2024 4:09 PM
[2024-10-25] MEDS ORDERED: SUCROFERRIC OXYHYDROXIDE 500 MG CHEW PO SCH (17:00)
== END 2024-10-25 15:10 | disposition home or self-care (01) | DRG 205 ==
LOC: ED 12:17 → 2S 14:31

== ENCOUNTER 2025-02-17 02:31 | Inpatient (IN) ==
--- NOTE | 2025-02-17 02:39 | Emergency Department Note ---
History of Present Illness General Chief complaint: Cardiac Assessment Stated complaint: CHEST PAIN RADIATING INTO BACK AND JAW History of Present Illness This 64-year-old female on dialysis who goes Saturday with diabetes presents ER for chest pain that woke her from sleep the rating to her jaw and shoulder. EMS gave aspirin nitroglycerin and she feels much better. Patient denies abdominal pain, vomiting, fever, chills, recent illness. She has not missed dialysis. Home Medications Medication Instructions Recorded Confirmed Type polyethylene glycol 3350 17 17 g PO DAILY PRN Constipation 12/13/21 02/17/25 History gram/dose oral powder (Miralax) aspirin 81 mg tablet,delayed 81 mg PO DAILY 11/15/22 02/17/25 History release (Adult Low Dose Aspirin) blood glucose control high and low #1 ea 04/03/23 01/25/25 Rx solution (Accu-Chek Guide L1-L2 Control Solution) mecobalamin (vitamin B12) 1,000 1,000 mcg sublingual DAILY #90 tabs 01/16/24 02/17/25 Rx mcg disintegrating tablet,sublingual sucroferric oxyhydroxide 500 mg 1,000 mg PO TIDWMEAL 08/13/24 02/17/25 History chewable tablet (Velphoro) metoprolol tartrate 25 mg tablet 25 mg PO DAILY #90 tabs 08/28/24 02/17/25 Rx rosuvastatin 40 mg tablet 40 mg PO QAM #90 tabs 08/28/24 02/17/25 Rx trazodone 50 mg tablet 25 mg (1/2 x 50 mg) PO HS #45 tabs 08/28/24 02/17/25 Rx bumetanide 1 mg tablet 1 mg PO BID 10/23/24 02/17/25 History ondansetron HCl 4 mg tablet 4 mg PO Q8H PRN Nausea And Vomiting 10/23/24 02/17/25 History Prosthetic Socket replacement #1 ea 01/01/25 01/25/25 Rx Socket replacement and supplies #1 ea 01/01/25 01/25/25 Rx amlodipine 5 mg tablet 5 mg PO DAILY 01/01/25 02/17/25 History omeprazole 20 mg capsule,delayed 20 mg PO DAILY 30 days #30 caps 01/25/25 02/17/25 Rx release oxycodone 10 mg tablet 10 mg PO Q6H PRN pain #120 tabs 02/05/25 02/17/25 Rx Allergies Allergy/AdvReac Type Severity Reaction Status Date / Time daptomycin Allergy Severe rhabdomyoly Verified 01/25/25 10:43 sis amoxicillin Allergy Intermediate HIVES & N/V Verified 01/25/25 10:43 clavulanic acid Allergy Intermediate HIVES & N/V Verified 01/25/25 10:43 vancomycin Allergy Intermediate pruritus Verified 01/25/25 10:43 sulfamethoxazole AdvReac Severe renal Verified 01/25/25 10:43 [From Bactrim] failure trimethoprim [From Bactrim] AdvReac Severe renal Verified 01/25/25 10:43 failure lisinopril AdvReac Intermediate NAUSEA/VOMI Verified 01/25/25 10:43 TING omeprazole AdvReac Intermediate Nausea Verified 01/25/25 10:43 Past Med/Surg History Problem List (Updated 02/17/25 @ 03:33 by Adamarsi Tatum PA-C) Chest pain (Acute) Leukocytosis (Acute) Pleural effusion on right (Acute) Chronic pain ESRD on dialysis Essential hypertension (HFpEF) heart failure with preserved ejection fraction Diabetes mellitus type 2 with complications Orthopnea Anemia (Acute) Renal hematoma, left Proteinuria Diabetic neuropathy PAD (peripheral artery disease) Irregular bowel habits Chronic heart failure with preserved ejection fraction (HFpEF) GERD (gastroesophageal reflux disease) (Chronic) Chronic constipation Vitamin D deficiency 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) Charcot's arthropathy Sleep apnea no cpap Dyslipidemia Chronic back pain Chronic venous insufficiency (Chronic) Osteoarthritis (Chronic) Medical History Hypervolemia Acute kidney injury superimposed on chronic kidney disease Acute kidney failure Chronic kidney disease, stage 4 (severe) Recurrent pleural effusion on right Chronic osteomyelitis Hypertension Non-traumatic rhabdomyolysis (02/2021) Postmenopausal bleeding Anemia of chronic disease Diabetic ulcer of left great toe PAD (peripheral artery disease) Morbid obesity Clostridium difficile colitis Charcot's joint of foot due to diabetes Surgical History History of vascular surgery (04/20/22) History of bilateral cataract extraction Status post amputation of toe of right foot (11/14/20) S/P vascular surgery (11/2020) S/P femoral-popliteal bypass surgery S/P angioplasty (10/2019) S/P angioplasty (06/2019) History of cholecystectomy History of tooth extraction History of esophagogastroduodenoscopy (EGD) S/P epidural steroid injection H/O vascular surgery (01/2020) History of lumpectomy of right breast Status post tubal ligation Status post tonsillectomy Family History Mother Rheumatoid arthritis Father Emphysema of lung Peripheral artery disease Aunt Breast cancer Colorectal cancer Myocardial infarction Brother Prostate cancer Sister COPD (chronic obstructive pulmonary disease) Other No family history of adverse response to anesthesia Denies family history of Ovarian cancer CAD (coronary atherosclerotic disease) Social History Smoking Status: Never smoker Tobacco Type: Cigarettes Age Started Using Tobacco: 9; Age Quit Using Tobacco: 54; packs per day: 2; Second Hand Exposure: No; Do You Dip or Chew Tobacco: No; Hx Alcohol Use: No Hx Substance Use: No Preferred Language: Kiswahili Communication Ability: Effective Visual Impairment: No Limitations Hearing Ability: Normal Craft Superintendent Required: No Beliefs That Will Affect Care: None marital status: Current Living Situation: Spouse Current Living Situation Comment: lives with and son current occupational status: disabled How many Children do You have: 1 other: previous worked at [employer] Feels Safe at Home: Yes Childhood Exposure to Second-Hand Smoke: Yes (father was a heavy smoker ) Diet: regular Diet Comment: regular caffeine: Yes (very little) during the past year weight has: remained stable Dental Care, Regularly: No Physical Activity Frequency: Does not Exercise Seatbelt Use: always Sunscreen Use: No Assistive Devices: Denture - Upper, Denture - Lower, Glasses and Other Review of Systems A total of 10 systems reviewed and were otherwise negative Physical Exam Vital Signs Vital Signs - 24 hr 02/17/25 02:37 02/17/25 02:37 02/17/25 02:37 Temperature 36.6 C Temperature Source Oral Pulse Rate 69 Pulse Rate from SpO2 Sensor Pulse Rhythm Regular Pulse Strength Normal Respiratory Rate 20 20 Respiratory Effort / Characteristics Non-Labored Spontaneous Respiratory Depth Normal Blood Pressure 146/59 H Blood Pressure Mean 88 Blood Pressure Position Lying Pulse Oximetry 96 96 Oxygen Delivery Method Room Air Room Air Room Air Sepsis Recent Fever Within 48 Hours No Sepsis New/Unexplained Change in Mental Status N/A Sepsis Action Taken by Nursing No Action Required 02/17/25 02:51 02/17/25 03:00 02/17/25 03:30 Temperature Temperature Source Pulse Rate 73 69 67 Pulse Rate from SpO2 Sensor 69 Pulse Rhythm Pulse Strength Respiratory Rate 16 16 Respiratory Effort / Characteristics Respiratory Depth Blood Pressure 134/63 140/55 L Blood Pressure Mean 86 97 Blood Pressure Position Pulse Oximetry 95 94 Oxygen Delivery Method Sepsis Recent Fever Within 48 Hours Sepsis New/Unexplained Change in Mental Status Sepsis Action Taken by Nursing 02/17/25 04:00 Temperature Temperature Source Pulse Rate 67 Pulse Rate from SpO2 Sensor Pulse Rhythm Pulse Strength Respiratory Rate 16 Respiratory Effort / Characteristics Respiratory Depth Blood Pressure 147/64 H Blood Pressure Mean 104 Blood Pressure Position Pulse Oximetry 94 Oxygen Delivery Method Sepsis Recent Fever Within 48 Hours Sepsis New/Unexplained Change in Mental Status Sepsis Action Taken by Nursing VITALS: Vitals are noted on the nurse's note and reviewed by myself. Vital signs stable. GENERAL: Pleasant female, in no acute distress, nondiaphoretic, well-developed well-nourished. SKIN: Capillary reflex less than 2 seconds. HEENT: Normocephalic. PERRLA. EOMI. Nares patent. Mucous membranes moist. Neck is supple without nuchal rigidity. HEART: Regular rate and rhythm LUNGS: Clear to auscultation bilaterally without wheezes, rales or rhonchi. No retractions or accessory muscle use. ABDOMEN: Positive bowel sounds x 4. Normal tympanic percussion. Soft, nontender, without masses or organomegaly. [place] sign negative. No guarding or rebound tenderness. no CVA tenderness MUSCULOSKELETAL: No gross musculoskeletal defects. Right lower leg amputee NEURO: Patient was alert and oriented to person place and time. No focal neurological deficits. Medical Decision Making Medical Records Attestation: I reviewed the patient's medical records. Home Medications Current Medication List: was personally reviewed by me Laboratory Data Attestation: I reviewed the patient's lab results. 02/17/25 02:38 02/17/25 02:38 Lab Results 02/17/25 Range/Units 02:38 WBC 7.64 (4.8-10.8) K/ul RBC 3.39 L (4.20-5.40) M/uL Hgb 10.4 L (12.0-16.0) g/dl Hct 32.4 L (37.0-47.0) % MCV 95.6 (80.0-100.0) fL MCH 30.7 (25.0-34.0) pg MCHC 32.1 (32.0-36.0) g/dL RDW Std Deviation 64.0 H (36.4-46.3) fL RDW Coeff of Adelina 19.0 H (11.5-14.5) % Plt Count 198 (130-400) K/uL MPV 10.0 (9.4-12.4) fL Immature Gran % (Auto) 3.1 % Neut % (Auto) 67.0 % Lymph % (Auto) 15.3 % Pickett % (Auto) 9.3 % Eos % (Auto) 4.6 % Baso % (Auto) 0.7 % Neut # (Auto) 5.12 (1.40-6.50) K/uL Lymph # (Auto) 1.17 L (1.20-3.40) K/uL Pickett # (Auto) 0.71 H (0.11-0.59) K/uL Eos # (Auto) 0.35 (0.00-0.50) K/uL Baso # (Auto) 0.05 (0.00-0.20) K/uL Immature Gran # (Auto) 0.24 H (0.01-0.20) K/uL Absolute Nucleated RBC 0.03 (0.00-0.12) K/uL Nucleated RBC % (auto) 0.4 % Sodium 134 L (136-145) mmol/L Potassium 4.6 (3.5-5.1) mmol/L Chloride 94 L (98-107) mmol/L Carbon Dioxide 27 (21-32) mmol/L Anion Gap 13 H (3-11) BUN 51 H (6-23) mg/dl Creatinine 5.72 H* (0.6-1.2) mg/dl Est Cr Clr Drug Dosing Not Reportable eGFR 7.71 BUN/Creatinine Ratio 8.9 L (10-20) Glucose 496 H* (70-99(Fasting)) mg/dl Calcium 8.1 L (8.6-10.3) mg/dl Total Bilirubin 0.3 (0.2-1.0) mg/dl AST 12 L (13-39) U/L ALT 10 (7-52) U/L Alkaline Phosphatase 130 H (34-104) U/L Troponin I High Sens 26.1 H (0-14) pg/ml Total Protein 6.7 (6.0-8.3) gm/dl Albumin 3.4 (3.4-5.0) gm/dl Globulin 3.3 (2.5-4.0) gm/dl Albumin/Globulin Ratio 1.0 (0.9-2) Lipase 26 (11-82) U/L Imaging Data Attestation: I personally reviewed and interpreted this imaging study as follows: MDM Narrative Prior records/ancillary studies reviewed. Triage Nursing notes reviewed. Additional history obtained from EMS. The patient's history was concerning for chest pain. Differential diagnosis: Etiologies such as cardiac ischemia, aortic dissection, pulmonary embolism, pneumonia, pneumothorax, musculoskeletal, infections, pericarditis, myocarditis, esophageal rupture, gastrointestinal, as well as others were entertained. Physical examination: As above. ER treatment provided: An order was placed for continuous cardiac monitoring. The monitor shows a rate of 60-100 with a sinus rhythm per my interpretation. EMS gave aspirin and nitroglycerin On reassessment the patient felt better. Diagnostic interpretation by me: The electrocardiogram was negative for pathologic change. Ordered for chest pain EKG: Normal sinus, left axis, left ventricular hypertrophy, no acute ST-T wave changes, rate 83. EKG similar to prior EKG. Impression normal sinus rhythm with left axis deviation with left ventricular hypertrophy independently interpreted by myself unchanged from prior The labs Independently Interpreted by myself revealed elevated troponin and repeat was ordered, hyperglycemia without DKA Imaging studies: Chest x-ray was reviewed and read by radiology. Patient is due for dialysis today HEART SCORE: Hx: high/mod/low suspicion: 1 ECG: ST depression/nonspecific changes/normal: 0 Age: Greater than 65/45-64/less than 45: 2 Risk factors: (Hypertension, hyperlipidemia, diabetes, coronary disease, tobacco use, cocaine use): 2 Troponin: Greater than 2 times normal limits/1-2 times normal limits/normal: 1 Total: 6 Consultation: A consultation was placed with the hospitalist. The case was discussed and diagnostics were reviewed. The patient was evaluated in the ER for further treatment. Exam and history seen consistent with chest pain with concerns for possible cardiac in etiology. Troponin slightly elevated. Symptoms were relieved with aspirin and nitroglycerin that was given by EMS. EKG is unchanged from prior. Medicine was consulted and the case was discussed. Patient will be evaluated for admission. By the evaluation outlined above emergent etiologies such as aortic dissection, pulmonary embolism, pneumonia, pneumothorax, infections, pericarditis, myocarditis, gastrointestinal, as well as others were deemed relatively unlikely. The pt informed about the findings as listed above. All questions were answered and pleased with the treatment. The chart was completed utilizing [employer] Speech voice recognition software. Grammatical errors, random word insertions, pronoun errors, and incomplete sentences are an occassional consequence of this system due to software limitations, ambient noise, and hardware issues. Any formal questions or concerns about the content, text, or information contained within the body of this dictation should be directly addressed to the physician sales assistant displays for clarification. Impression & Plan Chest pain Discharge Plan Visit Data Chief Complaint: Cardiac Assessment Stated Complaint: CHEST PAIN RADIATING INTO BACK AND JAW ED Provider: Aixa Bui ED Midlevel Provider: Adamaris Tatum Discharge Problem: Chest pain Patient Disposition: Being Evaluated by Hospitalist Condition: Good Forms Stand Alone Forms: My [employer] Prescriptions Prescriptions: No Action (DME) Accu-Chek Guide L1-L2 Ctrl Nancy Solution See Rx Instructions .Route Qty: 1 0RF Rx Instructions: As directed mecobalamin (vitamin B12) 1,000 mcg tablet,disintegrating 1,000 mcg sublingual DAILY Qty: 90 1RF Rx Instructions: place tablet under tongue and allow to dissolve for at least 30 secs before swallowing. trazodone 50 mg tablet 25 mg PO HS Qty: 45 3RF rosuvastatin 40 mg tablet 40 mg PO QAM Qty: 90 3RF metoprolol tartrate 25 mg tablet 25 mg PO DAILY Qty: 90 3RF oxycodone 10 mg tablet 10 mg PO Q6H PRN (Reason: pain) Qty: 120 0RF polyethylene glycol 3350 [Miralax] 17 gram/dose powder 17 g PO DAILY PRN (Reason: Constipation) aspirin [Adult Low Dose Aspirin] 81 mg tablet,delayed release (DR/EC) 81 mg PO DAILY Velphoro 500 mg tablet,chewable 1,000 mg PO TIDWMEAL Rx Instructions: with meals omeprazole 20 mg capsule,delayed release(DR/EC) 20 mg PO DAILY 30 Days Qty: 30 2RF amlodipine 5 mg tablet 5 mg PO DAILY (DME) Prosthetic Socket replacement See Rx Instructions .Route .MEDSUPPLY Qty: 1 0RF Rx Instructions: As directed. Patient states she is being fitted for a new prosthetic. (DME) Socket replacement and supplies See Rx Instructions .Route .MEDSUPPLY Qty: 1 0RF Rx Instructions: As directed. Level K2 ondansetron HCl 4 mg tablet 4 mg PO Q8H PRN (Reason: Nausea And Vomiting) bumetanide 1 mg tablet 1 mg PO BID Referrals Referrals: Andie Rodrigues DO [Primary Care Provider] - Discharge Problem: Chest pain Qualifiers: Chest pain type: unspecified Qualified Code(s): R07.9 - Chest pain, unspecified
[2025-02-17 02:58] LABS: Hematocrit (blood only) 32.4 % (37.0-47.0); Hemoglobin 10.4 g/dl (12.0-16.0); Immature Granulocytes # (auto) 0.24 K/uL (0.01-0.20); Immature Granulocytes % (auto) 3.1 %; Mean Corpuscular Hemoglobin 30.7 pg (25.0-34.0); Mean Corpuscular Volume 95.6 fL (80.0-100.0); Platelet Count 198 K/uL (130-400); RDW Standard Deviation 64.0 fL (36.4-46.3); Red Blood Count 3.39 M/uL (4.20-5.40); White Blood Count 7.64 K/ul (4.8-10.8)
[2025-02-17 03:22] LABS: Alanine Aminotransferase 10 U/L (7-52); Albumin Globulin Ratio 1.0 (0.9-2); Alkaline Phosphatase 130 U/L (34-104); Anion Gap 13 (3-11); Bilirubin,Total 0.3 mg/dl (0.2-1.0); Blood Urea Nitrogen 51 mg/dl (6-23); Calcium 8.1 mg/dl (8.6-10.3); Carbon Dioxide 27 mmol/L (21-32); Chloride 94 mmol/L (98-107); Globulin 3.3 gm/dl (2.5-4.0); Glucose 496 mg/dl (70-99(Fasting)); Lipase 26 U/L (11-82); Potassium 4.6 mmol/L (3.5-5.1); Sodium 134 mmol/L (136-145); Total Protein 6.7 gm/dl (6.0-8.3)
--- NOTE | 2025-02-17 03:39 | Emergency Department Note ---
ED Visit Note I was consulted by the Advanced Practice Provider, Adamaris Tatum PA-C. I performed a substantive portion of the visit. This includes aspects of: History: Patient is a 64-year-old female presenting with chest pain. Patient reports that the chest pain woke her up from sleep and radiates into her jaw and shoulder. She was given 304 mg of aspirin and nitroglycerin with EMS. On arrival to the ER, her chest pain has resolved. She is an ESRD patient on dialysis and denies missing any dialysis sessions. MDM: - Laboratory workup interpreted by myself showed normal WBC; chronic anemia (Hgb 10.4); ESRD; hyperglycemia (glucose 496); elevated troponin (26.1); normal lipase - Chest x-ray image reviewed by myself showed right sided pleural effusion - Patient to be admitted to hospital service for further evaluation and management. .
--- NOTE | 2025-02-17 04:26 | XRay Report ---
EXAM: XR chest 1V portable CLINICAL HISTORY: Chest pain, nonspecific TECHNIQUE: Radiograph of chest was acquired. COMPARISON: 10/24/2024 FINDINGS: Exaggerated vascular and interstitial lung markings bilaterally. Ill-defined fluffy opacities in the bilateral lower lung zones. New finding. Mild right pleural effusion with right basilar atelectasis. Possible minimal blunting of left costophrenic angle. Prominent hilar vascular changes. Right-sided central venous line, its tip in the right atrium. Mild cardiomegaly. Rest of the cardiomediastinal silhouette is within normal limits. No acute osseous abnormality. Spine degenerative changes. IMPRESSION: Mild right-sided pleural effusion with underlying collapse and consolidation.Unchanged Possible minimal blunting of left costophrenic angle.could represent pleural thickening/small pleural effusion, new finding. Interval unchanged exaggerated vascular and interstitial lung markings with ill-defined lower zone fluffy opacities and a prominent hilar vascular shadow. Congestion cannot be excluded. The right central venous line, its tip in the right atrium.stable. Mild cardiomegaly.stable. Electronically signed by Víctor Marin 02-17-2025 04:25 AM
[2025-02-17] MEDS: NovoLIN-R INSULIN PER UNIT CHARGE IV STA (04:57)
[2025-02-17] MEDS: BUMETANIDE 1 MG in SYRINGE 0 ML IV ONE (04:58)
--- NOTE | 2025-02-17 04:58 | History & Physical Report ---
Date of Service February 17, 2025 Assessment & Plan (1) Elevated troponin: (2) End-stage renal disease needing dialysis: (3) Hyperglycemia due to type 2 diabetes mellitus: (4) Chest pain: Plan The patient is a 64-year-old female with a past medical history including ESRD on HD, essential hypertension, HFpEF, diabetes mellitus type 2, anemia, diabetic neuropathy, PAD, GERD, sleep apnea, dyslipidemia, chronic venous insufficiency, and osteoarthritis. The patient presents to the emergency department with reports that she was awoken from sleep by substernal chest pain, that radiated to her left shoulder and left jaw. She took 2 baby aspirin at that time, and called EMS. EMS gave her 4 baby aspirin en route to the hospital, along with nitroglycerin sublingual, and the combination of all completely relieved her pain. In the emergency department in [facility], she has no complaints of chest pain or shortness of breath. She reports that she is due for dialysis today Saturday, and typically receives dialysis Saturday, Saturday and Saturday. She did take all of her medications last evening as directed. Workup in the emergency department included a glucose of 496, which is unusual for her, and upon questioning of dietary issue, reported that she had 15 black cherries last evening. Initial troponin was elevated 26.1, with follow-up pending. Patient reports that she has an appointment to follow-up with vascular surgery Dr. Guardado tomorrow. they will discuss revision of her left upper extremity fistula, which has only worked 12 times in the past year, and reportedly may be getting a graft for an occluded left side arterial circulation, which has been stented in the past. She was then referred for evaluation for admission to [facility] hospitalist service. She reports that she did notify the nephrology group that she was coming to the hospital, and would need dialysis today. Chest pain radiating to left shoulder and jaw/elevated troponin/HFpEF exacerbation- Initial troponin 26.1 with follow-up pending The patient will be admitted to telemetry for serial cardiac enzymes, serial EKG's, cardiac rhythm monitoring Most recent echocardiogram on 10/25/2024 with ejection fraction 55-60%, unchanged compared to 01/22/2024 Hold oral bumetanide 1 mg p.o. twice daily Give bumetanide 1 mg IV now, and remainder of HFpEF exacerbation should be taken care of by dialysis today Continue metoprolol to tartrate, amlodipine, and aspirin Bumetanide 1 mg p.o. twice daily, will need to be redosed after dialysis today. ESRD on HD- Patient has dialysis catheter in right chest She has a incompletely functioning fistula in her left upper extremity She reports that she has an appointment with Dr. Guardado, vascular surgery, tomorrow to address the problem with the fistula, and address for flow in her left thigh which has had stents in the past already. Consult nephrology Dr. Hunt, covering for Dr. Mei Hyperglycemia due to diabetes mellitus- Glucose on admission was 496, then a follow-up with 452, then decreased to 390 after 8 units of regular insulin IV Increased glucoses likely due to eating 15 black cherries later in the day yesterday Check hemoglobin A1c If glucose does not come under control with sliding scale, will need to add long-acting insulin glargine Patient reports that she does not take any medications at home for diabetes Hyperlipidemia- Continue rosuvastatin Chronic pain- Tylenol 650 mg by mouth every 6 hours as needed for mild pain or fever Continue oxycodone 10 mg p.o. every 6 hours as needed moderate pain Morphine sulfate 4 mg IV every 3 hours as needed for severe pain GERD- Continue omeprazole/pantoprazole History of Present Illness Chief Complaint: The patient presents to the emergency department with reports that she was awoken from sleep by substernal chest pain, that radiated to her left shoulder and left jaw. She took 2 baby aspirin at that time, and called EMS. EMS gave her 4 baby aspirin en route to the hospital, along with nitroglycerin sublingual, and the combination of all completely relieved her pain. In the emergency department in [facility], she has no complaints of chest pain or shortness of breath. She reports that she is due for dialysis today Saturday, and typically receives dialysis Saturday, Saturday and Saturday. She did take all of her medications last evening as directed. Primary Care Provider: Andie Rodrigues DO The patient is a 64-year-old female with a past medical history including ESRD on HD, essential hypertension, HFpEF, diabetes mellitus type 2, anemia, diabetic neuropathy, PAD, GERD, sleep apnea, dyslipidemia, chronic venous insufficiency, and osteoarthritis. The patient presents to the emergency department with reports that she was awoken from sleep by substernal chest pain, that radiated to her left shoulder and left jaw. She took 2 baby aspirin at that time, and called EMS. EMS gave her 4 baby aspirin en route to the hospital, along with nitroglycerin sublingual, and the combination of all completely relieved her pain. In the emergency department in [facility], she has no complaints of chest pain or shortness of breath. She reports that she is due for dialysis today Saturday, and typically receives dialysis Saturday, Saturday and Saturday. She did take all of her medications last evening as directed. Workup in the emergency department included a glucose of 496, which is unusual for her, and upon questioning of dietary issue, reported that she had 15 black cherries last evening. Initial troponin was elevated 26.1, with follow-up pending. Patient reports that she has an appointment to follow-up with vascular surgery Dr. Guardado tomorrow. they will discuss revision of her left upper extremity fistula, which has only worked 12 times in the past year, and reportedly may be getting a graft for an occluded left side arterial circulation, which has been stented in the past. [facility] Allergies Allergy/AdvReac Type Severity Reaction Status Date / Time daptomycin Allergy Severe rhabdomyoly Verified 01/25/25 10:43 sis amoxicillin Allergy Intermediate HIVES & N/V Verified 01/25/25 10:43 clavulanic acid Allergy Intermediate HIVES & N/V Verified 01/25/25 10:43 vancomycin Allergy Intermediate pruritus Verified 01/25/25 10:43 sulfamethoxazole AdvReac Severe renal Verified 01/25/25 10:43 [From Bactrim] failure trimethoprim [From Bactrim] AdvReac Severe renal Verified 01/25/25 10:43 failure lisinopril AdvReac Intermediate NAUSEA/VOMI Verified 01/25/25 10:43 TING omeprazole AdvReac Intermediate Nausea Verified 01/25/25 10:43 Home Medications Medication Instructions Recorded Confirmed Type polyethylene glycol 3350 17 17 g PO DAILY PRN Constipation 12/13/21 02/17/25 History gram/dose oral powder (Miralax) aspirin 81 mg tablet,delayed 81 mg PO DAILY 11/15/22 02/17/25 History release (Adult Low Dose Aspirin) blood glucose control high and low #1 ea 04/03/23 01/25/25 Rx solution (Accu-Chek Guide L1-L2 Control Solution) mecobalamin (vitamin B12) 1,000 1,000 mcg sublingual DAILY #90 tabs 01/16/24 02/17/25 Rx mcg disintegrating tablet,sublingual sucroferric oxyhydroxide 500 mg 1,000 mg PO TIDWMEAL 08/13/24 02/17/25 History chewable tablet (Velphoro) metoprolol tartrate 25 mg tablet 25 mg PO DAILY #90 tabs 08/28/24 02/17/25 Rx rosuvastatin 40 mg tablet 40 mg PO QAM #90 tabs 08/28/24 02/17/25 Rx trazodone 50 mg tablet 25 mg (1/2 x 50 mg) PO HS #45 tabs 08/28/24 02/17/25 Rx bumetanide 1 mg tablet 1 mg PO BID 10/23/24 02/17/25 History ondansetron HCl 4 mg tablet 4 mg PO Q8H PRN Nausea And Vomiting 10/23/24 02/17/25 History Prosthetic Socket replacement #1 ea 01/01/25 01/25/25 Rx Socket replacement and supplies #1 ea 01/01/25 01/25/25 Rx amlodipine 5 mg tablet 5 mg PO DAILY 01/01/25 02/17/25 History omeprazole 20 mg capsule,delayed 20 mg PO DAILY 30 days #30 caps 01/25/25 02/17/25 Rx release oxycodone 10 mg tablet 10 mg PO Q6H PRN pain #120 tabs 02/05/25 02/17/25 Rx Past Med/Surg History Problem List (Updated 02/17/25 @ 03:33 by Adamaris Tatum PA-C) Chest pain (Acute) Leukocytosis (Acute) Pleural effusion on right (Acute) Chronic pain ESRD on dialysis Essential hypertension (HFpEF) heart failure with preserved ejection fraction Diabetes mellitus type 2 with complications Orthopnea Anemia (Acute) Renal hematoma, left Proteinuria Diabetic neuropathy PAD (peripheral artery disease) Irregular bowel habits Chronic heart failure with preserved ejection fraction (HFpEF) GERD (gastroesophageal reflux disease) (Chronic) Chronic constipation Vitamin D deficiency 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) Charcot's arthropathy Sleep apnea no cpap Dyslipidemia Chronic back pain Chronic venous insufficiency (Chronic) Osteoarthritis (Chronic) Medical History Hypervolemia Acute kidney injury superimposed on chronic kidney disease Acute kidney failure Chronic kidney disease, stage 4 (severe) Recurrent pleural effusion on right Chronic osteomyelitis Hypertension Non-traumatic rhabdomyolysis (02/2021) Postmenopausal bleeding Anemia of chronic disease Diabetic ulcer of left great toe PAD (peripheral artery disease) Morbid obesity Clostridium difficile colitis Charcot's joint of foot due to diabetes Surgical History History of vascular surgery (04/20/22) History of bilateral cataract extraction Status post amputation of toe of right foot (11/14/20) S/P vascular surgery (11/2020) S/P femoral-popliteal bypass surgery S/P angioplasty (10/2019) S/P angioplasty (06/2019) History of cholecystectomy History of tooth extraction History of esophagogastroduodenoscopy (EGD) S/P epidural steroid injection H/O vascular surgery (01/2020) History of lumpectomy of right breast Status post tubal ligation Status post tonsillectomy Family History Mother Rheumatoid arthritis Father Emphysema of lung Peripheral artery disease Aunt Breast cancer Colorectal cancer Myocardial infarction Brother Prostate cancer Sister COPD (chronic obstructive pulmonary disease) Other No family history of adverse response to anesthesia Denies family history of Ovarian cancer CAD (coronary atherosclerotic disease) Social History Smoking Status: Never smoker Tobacco Type: Cigarettes Age Started Using Tobacco: 9; Age Quit Using Tobacco: 54; packs per day: 2; Second Hand Exposure: No; Do You Dip or Chew Tobacco: No; Hx Alcohol Use: No Hx Substance Use: No Preferred Language: Finnish Communication Ability: Effective Visual Impairment: No Limitations Hearing Ability: Normal Front Office Secretary Required: No Beliefs That Will Affect Care: None marital status: Current Living Situation: Spouse Current Living Situation Comment: lives with and son current occupational status: disabled How many Children do You have: 1 other: previous worked at [employer] Feels Safe at Home: Yes Childhood Exposure to Second-Hand Smoke: Yes (father was a heavy smoker ) Diet: regular Diet Comment: regular caffeine: Yes (very little) during the past year weight has: remained stable Dental Care, Regularly: No Physical Activity Frequency: Does not Exercise Seatbelt Use: always Sunscreen Use: No Assistive Devices: Denture - Upper, Denture - Lower, Glasses and Other Review of Systems Review of Systems: The patient denies palpitations, cough, lower extremity swelling, sore throat, fevers, chills, sweats, nausea, vomiting, diarrhea , constipation, abdominal pain, pelvic pain, blood in urine or stool, dysuria, urinary frequency or urgency, lightheadedness, dizziness, headache, memory loss, loss of consciousness, rash, abnormal bruising or bleeding, imbalance, focal weakness, numbness or tingling in arms or legs, generalized arthralgias or myalgias, back or neck pain, or night sweats. The review of systems is otherwise negative other than for that already noted above, and at least 10 systems have been reviewed. Physical Exam Physical Exam: The patient is awake, alert and oriented 3, well developed and well nourished, normocephalic and atraumatic, lying in bed and in no acute distress. HEENT--PERRL, EOMI, mucous membranes and oropharynx dry. Neck--supple. No JVD. No bruits. Thyroid normal, trachea midline, no adenopathy. Heart--normal S1 and S2. No murmurs, rubs or gallops. Lungs--Crackles at the bases bilaterally. No respiratory distress, no accessory muscle use. Abdomen--normal bowel sounds and soft. Nontender. Nondistended. Obese Extremities-- Trace bilateral pretibial pitting edema. Dermatologic--normal skin turgor, normal color, Neurologic--cranial nerves II through XII grossly intact. Rheumatologic--range of motion limited by body habitus otherwise normal Psychiatric--normal affect. Results & Data Results & Data Vital Signs (Past 12 Hours) Vital Signs Temp Pulse Resp BP Pulse Ox O2 Del Method 02/17/25 04:00 67 16 147/64 H 94 02/17/25 03:30 67 16 140/55 L 94 02/17/25 03:00 69 16 134/63 95 02/17/25 02:51 73 02/17/25 02:37 20 96 Room Air 02/17/25 02:37 Room Air 02/17/25 02:37 36.6 C 69 20 146/59 H 96 Room Air Laboratory Results Laboratory Results WBC 7.64 K/ul (4.8-10.8) 02/17/25 02:38 RBC 3.39 M/uL (4.20-5.40) L 02/17/25 02:38 Hgb 10.4 g/dl (12.0-16.0) L 02/17/25 02:38 Hct 32.4 % (37.0-47.0) L 02/17/25 02:38 MCV 95.6 fL (80.0-100.0) 02/17/25 02:38 MCH 30.7 pg (25.0-34.0) 02/17/25 02:38 MCHC 32.1 g/dL (32.0-36.0) 02/17/25 02:38 RDW Std Deviation 64.0 fL (36.4-46.3) H 02/17/25 02:38 RDW Coeff of Adelina 19.0 % (11.5-14.5) H 02/17/25 02:38 Plt Count 198 K/uL (130-400) 02/17/25 02:38 MPV 10.0 fL (9.4-12.4) 02/17/25 02:38 Immature Gran % (Auto) 3.1 % 02/17/25 02:38 Neut % (Auto) 67.0 % 02/17/25 02:38 Lymph % (Auto) 15.3 % 02/17/25 02:38 [place] % (Auto) 9.3 % 02/17/25 02:38 Eos % (Auto) 4.6 % 02/17/25 02:38 Baso % (Auto) 0.7 % 02/17/25 02:38 Neut # (Auto) 5.12 K/uL (1.40-6.50) 02/17/25 02:38 Lymph # (Auto) 1.17 K/uL (1.20-3.40) L 02/17/25 02:38 [place] # (Auto) 0.71 K/uL (0.11-0.59) H 02/17/25 02:38 Eos # (Auto) 0.35 K/uL (0.00-0.50) 02/17/25 02:38 Baso # (Auto) 0.05 K/uL (0.00-0.20) 02/17/25 02:38 Immature Gran # (Auto) 0.24 K/uL (0.01-0.20) H 02/17/25 02:38 Absolute Nucleated RBC 0.03 K/uL (0.00-0.12) 02/17/25 02:38 Nucleated RBC % (auto) 0.4 % 02/17/25 02:38 Sodium 134 mmol/L (136-145) L 02/17/25 02:38 Potassium 4.6 mmol/L (3.5-5.1) 02/17/25 02:38 Chloride 94 mmol/L (98-107) L 02/17/25 02:38 Carbon Dioxide 27 mmol/L (21-32) 02/17/25 02:38 Anion Gap 13 (3-11) H 02/17/25 02:38 BUN 51 mg/dl (6-23) H 02/17/25 02:38 Creatinine 5.72 mg/dl (0.6-1.2) H* 02/17/25 02:38 Est Cr Clr Drug Dosing Not Reportable 02/17/25 02:38 eGFR 7.71 02/17/25 02:38 BUN/Creatinine Ratio 8.9 (10-20) L 02/17/25 02:38 Glucose 496 mg/dl (70-99(Fasting)) H* 02/17/25 02:38 POC Glucose 392 mg/dl (70-99) H* 02/17/25 05:28 Calcium 8.1 mg/dl (8.6-10.3) L 02/17/25 02:38 Total Bilirubin 0.3 mg/dl (0.2-1.0) 02/17/25 02:38 AST 12 U/L (13-39) L 02/17/25 02:38 ALT 10 U/L (7-52) 02/17/25 02:38 Alkaline Phosphatase 130 U/L (34-104) H 02/17/25 02:38 Troponin I High Sens 309.3 pg/ml (0-14) H* D 02/17/25 05:03 Total Protein 6.7 gm/dl (6.0-8.3) 02/17/25 02:38 Albumin 3.4 gm/dl (3.4-5.0) 02/17/25 02:38 Globulin 3.3 gm/dl (2.5-4.0) 02/17/25 02:38 Albumin/Globulin Ratio 1.0 (0.9-2) 02/17/25 02:38 Triglycerides 172 mg/dl (0-150) H 02/17/25 05:03 Cholesterol 88 mg/dl (0-200) 02/17/25 05:03 LDL Cholesterol, Calc 22 mg/dl 02/17/25 05:03 VLDL Cholesterol, Calc 34 mg/dl (0-30) H 02/17/25 05:03 HDL Cholesterol 32 mg/dl 02/17/25 05:03 Cholesterol/HDL Ratio 2.8 (0-5) 02/17/25 05:03 Lipase 26 U/L (11-82) 02/17/25 02:38 Impressions Chest X-Ray 02/17/25 02:37 EXAM: XR chest 1V portable CLINICAL HISTORY: Chest pain, nonspecific TECHNIQUE: Radiograph of chest was acquired. COMPARISON: 10/24/2024 FINDINGS: Exaggerated vascular and interstitial lung markings bilaterally. Ill-defined fluffy opacities in the bilateral lower lung zones. New finding. Mild right pleural effusion with right basilar atelectasis. Possible minimal blunting of left costophrenic angle. Prominent hilar vascular changes. Right-sided central venous line, its tip in the right atrium. Mild cardiomegaly. Rest of the cardiomediastinal silhouette is within normal limits. No acute osseous abnormality. Spine degenerative changes. IMPRESSION: Mild right-sided pleural effusion with underlying collapse and consolidation.Unchanged Possible minimal blunting of left costophrenic angle.could represent pleural thickening/small pleural effusion, new finding. Interval unchanged exaggerated vascular and interstitial lung markings with ill-defined lower zone fluffy opacities and a prominent hilar vascular shadow. Congestion cannot be excluded. The right central venous line, its tip in the right atrium.stable. Mild cardiomegaly.stable. Electronically signed by Víctor Marin 02-17-2025 04:25 AM Code Status & VTE Plan Code Status Full code VTE Prophylaxis Plan VTE Prophylaxis will be ordered: Yes PG Care Time/CCT Total # of Minutes Spent Total Time Spent with Patient: Total time spent is greater than 50% in coordination of care (as documented) at patient's floor/unit and/or counseling patient: Coding Level of Care Code 63996 INT INP/OBS CARE 3/75MIN Diagnoses Elevated troponin R79.89 End-stage renal disease needing dialysis N18.6; Z99.2 Hyperglycemia due to type 2 diabetes mellitus E11.65; Z79.4 Diabetes mellitus terminal makeup operator insulin use: with terminal makeup operator use Chest pain R07.9 Chest pain type: unspecified (3) Hyperglycemia due to type 2 diabetes mellitus Diabetes mellitus terminal makeup operator insulin use: with terminal makeup operator use Qualified Code(s): E11.65 - Type 2 diabetes mellitus with hyperglycemia; Z79.4 - terminal superintendent (current) use of insulin (4) Chest pain Chest pain type: unspecified Qualified Code(s): R07.9 - Chest pain, unspecified
[2025-02-17] MEDS ORDERED: GLUCOSE 40% GEL 15 GM TUBE PO PRN (05:26)
[2025-02-17] MEDS ORDERED: ACETAMINOPHEN 325 MG TAB PO PRN (05:26)
[2025-02-17] MEDS ORDERED: CARBOHYDRATES FOR HYPOGLYCEMIA PO PRN (05:26)
[2025-02-17] MEDS ORDERED: MoRPHine SULFATE 4 MG/ML 1 ML CARP\\VIAL IV PRN (05:26)
[2025-02-17] MEDS ORDERED: DEXTROSE 50% 50 ML SYRINGE IV PRN (05:26)
[2025-02-17] MEDS ORDERED: GLUCAGON FOR INJ 1 MG VIAL SQ PRN (05:26)
[2025-02-17] MEDS ORDERED: GLUCOSE 10 TAB/TUBE PO PRN (05:26)
[2025-02-17] MEDS ORDERED: POLYETHYLENE (MIRALAX) 17 GM PACK PO PRN (05:26)
[2025-02-17 05:34] LABS: Cholesterol 88.0 mg/dl (0-200); HDL Cholesterol 32.0 mg/dl; Triglycerides 172.0 mg/dl (0-150)
[2025-02-17] MEDS ORDERED: ONDANSETRON 4 MG OD TAB PO PRN (06:07)
[2025-02-17 07:01] LABS: Hemoglobin A1C 7.9 % (4.5-5.6)
[2025-02-17] MEDS: INSULIN ASPART PER UNIT CHARGE SC SCH (08:02)
[2025-02-17] MEDS: ASPIRIN 81 MG ECTAB PO SCH (08:30)
[2025-02-17] MEDS: METOPROLOL TARTRATE 25 MG TAB PO SCH (08:30)
[2025-02-17] MEDS: ROSUVASTATIN CALCIUM 20 MG TAB PO SCH (08:31)
[2025-02-17] MEDS: CYANOCOBALAMIN (B-12) 500 MCG TABLET PO SCH (08:31)
--- NOTE | 2025-02-17 10:02 | Nephrology Consultation ---
Date of Consultation February 17, 2025 Assessment & Plan (1) Chest pain: * Resolved following ASA, SL NTG * Trend troponin * Await Cardiology evaluation (2) Pleural effusion on right: * CXR film reviewed this am - small bilateral pleural effusions and mild pulmonary edema (3) ESRD on dialysis: * Will coordinate dialysis treatment w/ cardiology - tiger text sent * Outpatient HD orders: 3.5hr 2K 2.5Ca [id number] Qb350 Na 135 HCO3 37 EDW 103.5 Heparin 1600/1000 * L arm AVF precautions * Diabetic HD diet * Continue nephrocaps History of Present Illness Reason for Consultation: ESKD-D Attending Physician: Kate Pak DO History of Present Illness Mrs. Simpson is a 64 year old white female who is seen at the request of [facility] hospitalist service to provide HD and assist w/ medical management. Information for the HPI is obtained from direct patient interview and review of the EMR. HPI is summarized as follows: Mrs. Simpson has ESKD due to DKD. 10/30 she underwent [place] kidney biopsy which revealed focal nodular sclerosis, 50% IFTA c/w diabetic nephropathy. She had a R BC AVF created and later transposed. Unfortunately the venous limb is medial to the biceps muscle and difficult to access. She now dialyzes via R IJ TCC and hopes to have her AVF revised. Mrs. Simpson dialyzes MWF at [facility] (3.5hr 2K 2.5Ca [id number] Qb350 Na 135 HCO3 37 EDW 103.5 Heparin 1600/1000). Her last dialysis was Saturday without complication. Mrs. Simpson reports that she awoke this morning with retrosternal chest pain w/ radiation to her jaw, L shoulder and back. Her pain has been relieved w/ ASA and SL NTG. ECG in EMD was negative for ischemic change. CXR with mild vascular congestion and blunting of CPA bilaterally. Initial troponin was 26 but subsequently increased to 309. Cardiology consultation is pending. Patient denies prior h/o AMI, CABG PMH: ESKD-D, HTN, HFpEF, AODM w/ neuropathy, anemia, PAD s/p R BKA and L femoral artery stenting, GERD, ALLY, dyslipidemia, OA, 40 pack yr smoking hx (quit 2015) Allergies Allergy/AdvReac Type Severity Reaction Status Date / Time daptomycin Allergy Severe rhabdomyoly Verified 01/25/25 10:43 sis amoxicillin Allergy Intermediate HIVES & N/V Verified 01/25/25 10:43 clavulanic acid Allergy Intermediate HIVES & N/V Verified 01/25/25 10:43 vancomycin Allergy Intermediate pruritus Verified 01/25/25 10:43 sulfamethoxazole AdvReac Severe renal Verified 01/25/25 10:43 [From Bactrim] failure trimethoprim [From Bactrim] AdvReac Severe renal Verified 01/25/25 10:43 failure lisinopril AdvReac Intermediate NAUSEA/VOMI Verified 01/25/25 10:43 TING omeprazole AdvReac Intermediate Nausea Verified 01/25/25 10:43 Home Medications Medication Instructions Recorded Confirmed Type polyethylene glycol 3350 17 17 g PO DAILY PRN Constipation 12/13/21 02/17/25 History gram/dose oral powder (Miralax) aspirin 81 mg tablet,delayed 81 mg PO DAILY 11/15/22 02/17/25 History release (Adult Low Dose Aspirin) blood glucose control high and low #1 ea 04/03/23 01/25/25 Rx solution (Accu-Chek Guide L1-L2 Control Solution) mecobalamin (vitamin B12) 1,000 1,000 mcg sublingual DAILY #90 tabs 01/16/24 02/17/25 Rx mcg disintegrating tablet,sublingual sucroferric oxyhydroxide 500 mg 1,000 mg PO TIDWMEAL 08/13/24 02/17/25 History chewable tablet (Velphoro) metoprolol tartrate 25 mg tablet 25 mg PO DAILY #90 tabs 08/28/24 02/17/25 Rx rosuvastatin 40 mg tablet 40 mg PO QAM #90 tabs 08/28/24 02/17/25 Rx trazodone 50 mg tablet 25 mg (1/2 x 50 mg) PO HS #45 tabs 08/28/24 02/17/25 Rx bumetanide 1 mg tablet 1 mg PO BID 10/23/24 02/17/25 History ondansetron HCl 4 mg tablet 4 mg PO Q8H PRN Nausea And Vomiting 10/23/24 5 History Prosthetic Socket replacement #1 ea 01/01/25 01/25/25 Rx Socket replacement and supplies #1 ea 01/01/25 01/25/25 Rx amlodipine 5 mg tablet 5 mg PO DAILY 01/01/25 02/17/25 History omeprazole 20 mg capsule,delayed 20 mg PO DAILY 30 days #30 caps 01/25/25 02/17/25 Rx release oxycodone 10 mg tablet 10 mg PO Q6H PRN pain #120 tabs 02/05/25 02/17/25 Rx Patient History Medical History Hypervolemia Acute kidney injury superimposed on chronic kidney disease Acute kidney failure Chronic kidney disease, stage 4 (severe) Recurrent pleural effusion on right Chronic osteomyelitis Hypertension Non-traumatic rhabdomyolysis (02/2021) Postmenopausal bleeding Anemia of chronic disease Diabetic ulcer of left great toe PAD (peripheral artery disease) S/P right lower extremity angiogram, mechanical thrombectomy of pre-existing superficial femoral artery stent usinh [employer] [place] Omni catheter, balloon angioplasty of the superficial femoral artery stent using 5 X 200 mm Adell balloon, balloon angioplasty of the superficial femoral artery 6 X 250 mm IN.PACT drug coated balloon, stent angioplasty of the superficial femoral artery using 5 X 150 mm INOVA bare metal stent, and debridement of the right lateral foot on 11/14/[address] Lomeli. S/P bilateral SFA stenting Morbid obesity BMI 45.7 Clostridium difficile colitis history (~11/2016) -- treated no problems since. Charcot's joint of foot due to diabetes Surgical History History of vascular surgery (04/20/22) L SFA Angio Extremity Unilateral Fem Pop Balloon Atherectomy History of bilateral cataract extraction Status post amputation of toe of right foot (11/14/20) amputation metatarsal w/ toe, R S/P vascular surgery (11/2020) R fem-pop [id number] w/ stent and angioplasty S/P femoral-popliteal bypass surgery S/P angioplasty (10/2019) RT SFA atherectomy/angioplasty w/ MARSHA S/P angioplasty (06/2019) LT SFA angioplastly with MARSHA History of cholecystectomy History of tooth extraction History of esophagogastroduodenoscopy (EGD) S/P epidural steroid injection H/O vascular surgery (01/2020) LT SFA atherectomy, MARSHA w/ supera stenting History of lumpectomy of right breast benign Status post tubal ligation Status post tonsillectomy Family History Mother Rheumatoid arthritis Father Emphysema of lung Peripheral artery disease Aunt Breast cancer [facility] Colorectal cancer [facility] Myocardial infarction [facility]OM[facility] Brother Prostate cancer Sister COPD (chronic obstructive pulmonary disease) Other No family history of adverse response to anesthesia Denies family history of Ovarian cancer CAD (coronary atherosclerotic disease) Social History Smoking Status: Never smoker Tobacco Type: Cigarettes Age Started Using Tobacco: 9; Age Quit Using Tobacco: 54; packs per day: 2; Second Hand Exposure: No; Do You Dip or Chew Tobacco: No; Hx Alcohol Use: No Hx Substance Use: No Preferred Language: Angolan Communication Ability: Effective Visual Impairment: No Limitations Hearing Ability: Normal Reconditioning Associate Required: No Beliefs That Will Affect Care: None marital status: Current Living Situation: Family Current Living Situation Comment: lives with and son current occupational status: disabled How many Children do You have: 1 other: previous worked at [employer] Feels Safe at Home: Yes Safety Concerns: Feels Safe At This Time Childhood Exposure to Second-Hand Smoke: Yes (father was a heavy smoker ) Diet: regular Diet Comment: regular caffeine: Yes (very little) during the past year weight has: remained stable Dental Care, Regularly: No Physical Activity Frequency: Does not Exercise Seatbelt Use: always Sunscreen Use: No Assistive Devices: None Review of Systems Constitutional: no fever Eyes: no problem reported Ear, Nose, Mouth, Throat: no problem reported Respiratory: no dyspnea Cardiovascular: no chest pain Gastrointestinal: no nausea, no vomiting and no diarrhea/loose stools Genitourinary: no dysuria Integumentary: no rash Neurologic: no localized weakness Physical Exam Constitutional: not in distress Eyes: PERRL, conjunctivae normal, anicteric sclerae ENMT: external ear and nose normal, oropharynx normal Neck: trachea midline, no thyromegaly Respiratory: normal respiratory effort, lungs clear to auscultation Cardiovascular: Rate/Rhythm: regular rate and regular rhythm Extremities: + edema (trace LLE) Gastrointestinal (Abdomen): normal bowel sounds, soft, nontender, no hepatosplenomegaly Musculoskeletal: R BKA Neurologic: no focal motor deficits Results & Data Vital Signs (Past 12 Hours) Vital Signs Temp Pulse Pulse Resp BP BP Pulse Ox 02/17/25 08:33 67 18 102/52 L 93 02/17/25 07:05 63 17 153/53 H 98 02/17/25 06:56 61 02/17/25 06:14 146/56 H 02/17/25 06:00 61 21 97 02/17/25 05:54 62 19 97 02/17/25 05:45 62 13 97 02/17/25 05:35 02/17/25 05:21 64 19 95 02/17/25 05:18 64 18 94 02/17/25 05:00 66 20 151/62 H 95 02/17/25 04:31 64 20 149/67 H 95 02/17/25 04:00 67 16 147/64 H 94 02/17/25 03:30 67 16 140/55 L 94 02/17/25 03:00 69 16 134/63 95 02/17/25 02:51 73 02/17/25 02:37 20 96 02/17/25 02:37 02/17/25 02:37 36.6 C 69 20 146/59 H 96 Pulse Ox O2 Del Method O2 Del Method 02/17/25 08:33 Room Air 02/17/25 07:05 Room Air 02/17/25 06:56 02/17/25 06:14 02/17/25 06:00 Room Air 02/17/25 05:54 Room Air 02/17/25 05:45 Room Air 02/17/25 05:35 97 Room Air 02/17/25 05:21 Room Air 02/17/25 05:18 Room Air 02/17/25 05:00 02/17/25 04:31 02/17/25 04:00 02/17/25 03:30 02/17/25 03:00 02/17/25 02:51 02/17/25 02:37 Room Air 02/17/25 02:37 Room Air 02/17/25 02:37 Room Air Laboratory Results Laboratory Results WBC 7.64 K/ul (4.8-10.8) 02/17/25 02:38 RBC 3.39 M/uL (4.20-5.40) L 02/17/25 02:38 Hgb 10.4 g/dl (12.0-16.0) L 02/17/25 02:38 Hct 32.4 % (37.0-47.0) L 02/17/25 02:38 MCV 95.6 fL (80.0-100.0) 02/17/25 02:38 MCH 30.7 pg (25.0-34.0) 02/17/25 02:38 MCHC 32.1 g/dL (32.0-36.0) 02/17/25 02:38 RDW Std Deviation 64.0 fL (36.4-46.3) H 02/17/25 02:38 RDW Coeff of Adelina 19.0 % (11.5-14.5) H 02/17/25 02:38 Plt Count 198 K/uL (130-400) 02/17/25 02:38 MPV 10.0 fL (9.4-12.4) 02/17/25 02:38 Immature Gran % (Auto) 3.1 % 02/17/25 02:38 Neut % (Auto) 67.0 % 02/17/25 02:38 Lymph % (Auto) 15.3 % 02/17/25 02:38 [place] % (Auto) 9.3 % 02/17/25 02:38 Eos % (Auto) 4.6 % 02/17/25 02:38 Baso % (Auto) 0.7 % 02/17/25 02:38 Neut # (Auto) 5.12 K/uL (1.40-6.50) 02/17/25 02:38 Lymph # (Auto) 1.17 K/uL (1.20-3.40) L 02/17/25 02:38 [place] # (Auto) 0.71 K/uL (0.11-0.59) H 02/17/25 02:38 Eos # (Auto) 0.35 K/uL (0.00-0.50) 02/17/25 02:38 Baso # (Auto) 0.05 K/uL (0.00-0.20) 02/17/25 02:38 Immature Gran # (Auto) 0.24 K/uL (0.01-0.20) H 02/17/25 02:38 Absolute Nucleated RBC 0.03 K/uL (0.00-0.12) 02/17/25 02:38 Nucleated RBC % (auto) 0.4 % 02/17/25 02:38 Sodium 134 mmol/L (136-145) L 02/17/25 02:38 Potassium 4.6 mmol/L (3.5-5.1) 02/17/25 02:38 Chloride 94 mmol/L (98-107) L 02/17/25 02:38 Carbon Dioxide 27 mmol/L (21-32) 02/17/25 02:38 Anion Gap 13 (3-11) H 02/17/25 02:38 BUN 51 mg/dl (6-23) H 02/17/25 02:38 Creatinine 5.72 mg/dl (0.6-1.2) H* 02/17/25 02:38 Est Cr Clr Drug Dosing Not Reportable 02/17/25 02:38 eGFR 7.71 02/17/25 02:38 BUN/Creatinine Ratio 8.9 (10-20) L 02/17/25 02:38 Glucose 496 mg/dl (70-99(Fasting)) H* 02/17/25 02:38 POC Glucose 254 mg/dl (70-99) H 02/17/25 07:23 Estimat Average Glucose 180 mg/dl 02/17/25 05:03 Hemoglobin A1c 7.9 % (4.5-5.6) H 02/17/25 05:03 Calcium 8.1 mg/dl (8.6-10.3) L 02/17/25 02:38 Total Bilirubin 0.3 mg/dl (0.2-1.0) 02/17/25 02:38 AST 12 U/L (13-39) L 02/17/25 02:38 ALT 10 U/L (7-52) 02/17/25 02:38 Alkaline Phosphatase 130 U/L (34-104) H 02/17/25 02:38 Troponin I High Sens 309.3 pg/ml (0-14) H* D 02/17/25 05:03 Total Protein 6.7 gm/dl (6.0-8.3) 02/17/25 02:38 Albumin 3.4 gm/dl (3.4-5.0) 02/17/25 02:38 Globulin 3.3 gm/dl (2.5-4.0) 02/17/25 02:38 Albumin/Globulin Ratio 1.0 (0.9-2) 02/17/25 02:38 Triglycerides 172 mg/dl (0-150) H 02/17/25 05:03 Cholesterol 88 mg/dl (0-200) 02/17/25 05:03 LDL Cholesterol, Calc 22 mg/dl 02/17/25 05:03 VLDL Cholesterol, Calc 34 mg/dl (0-30) H 02/17/25 05:03 HDL Cholesterol 32 mg/dl 02/17/25 05:03 Cholesterol/HDL Ratio 2.8 (0-5) 02/17/25 05:03 Lipase 26 U/L (11-82) 02/17/25 02:38 Impressions Chest X-Ray 02/17/25 02:37 EXAM: XR chest 1V portable CLINICAL HISTORY: Chest pain, nonspecific TECHNIQUE: Radiograph of chest was acquired. COMPARISON: 10/24/2024 FINDINGS: Exaggerated vascular and interstitial lung markings bilaterally. Ill-defined fluffy opacities in the bilateral lower lung zones. New finding. Mild right pleural effusion with right basilar atelectasis. Possible minimal blunting of left costophrenic angle. Prominent hilar vascular changes. Right-sided central venous line, its tip in the right atrium. Mild cardiomegaly. Rest of the cardiomediastinal silhouette is within normal limits. No acute osseous abnormality. Spine degenerative changes. IMPRESSION: Mild right-sided pleural effusion with underlying collapse and consolidation.Unchanged Possible minimal blunting of left costophrenic angle.could represent pleural thickening/small pleural effusion, new finding. Interval unchanged exaggerated vascular and interstitial lung markings with ill-defined lower zone fluffy opacities and a prominent hilar vascular shadow. Congestion cannot be excluded. The right central venous line, its tip in the right atrium.stable. Mild cardiomegaly.stable. Electronically signed by Víctor Marin 02-17-2025 04:25 AM PG Care Time/CCT Total # of Minutes Spent Total Time Spent with Patient: Total time spent is greater than 50% in coordination of care (as documented) at patient's floor/unit and/or counseling patient: Coding Level of Care Code 71463 IN/OBS CONSULT LVL 5,80M Diagnoses Chest pain R07.9 Chest pain type: unspecified Pleural effusion on right J90 ESRD on dialysis N18.6; Z99.2 (1) Chest pain Chest pain type: unspecified Qualified Code(s): R07.9 - Chest pain, unspecified
[2025-02-17] MEDS ORDERED: SODIUM CHLORIDE 0.9% 1,000 ML IV PRN (10:13)
--- NOTE | 2025-02-17 10:41 | Cardiology Consultation ---
Date of Consultation February 17, 2025 Assessment & Plan (1) Chest pain: 2. PAD- Multiple bilateral SFA interventions. 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 HFpEF 4. Type 2 diabetes complicated by peripheral neuropathy 5. ESRD on dialysis 6. Chronic lower extremity edema/venous insufficiency/lymphedema 7. Hypertension 8. Dyslipidemia 9. Iron deficiency anemia prior vaginal bleeding. Acute onset chest pain with elevated troponin in diabetic patient with long history of vascular disease. No history of prior CAD but concern for ACS is high and recommend additional ischemic evaluation with cardiac catheterization. Discussed procedure with patient including risk, benefits and she is willing to proceed. Patient ate breakfast today and is to undergo dialysis later this afternoon. Will tentatively plan on cath tomorrow morning. Will discuss with vascular surgery need for any additional imaging of left lower extremity during cath. While awaiting cath trend troponin until peak. Repeat echocardiogram. Recommend starting heparin after dialysis Continue home aspirin, metoprolol, amlodipine and rosuvastatin Will follow History of Present Illness Attending Physician: Kate Pak, History of Present Illness Mrs. Simpson is a very pleasant 64-year-old woman with a history of type 2 diabetes and lower extremity PAD post multiple bilateral SFA interventions, post right BKA seen today in the ED due to new chest pain. Past medical history remarkable for diabetic neuropathy, ESRD on hemodialysis followed by Dr. Mei, dyslipidemia, obesity with ALLY, chronic iron deficiency anemia followed by hematology and prior severe vaginal bleeding. Previously followed by Dr. Gutierrez for atrial, ventricular ectopy and ASCVD risk factor modification. Previously saw heart failure clinic 12/2021 for questionable HFpEF. On stable maintenance diuretics. No history of prior coronary artery disease. At present dealing with worsening claudication involving left lower extremity with recent vascular testing consistent with SFA stent occlusion, new severe left popliteal disease and severely reduced toe pressures. She was scheduled to see Dr. Rainey today for consideration of possible femoropopliteal bypass and revision of left upper extremity fistula. Earlier this morning was awoken with new substernal chest pain radiating to jaw/arm. Pain relieved with nitro, aspirin. Initial ECG showed no new dynamic ST changes. HS TropI initially 26, later up to 309. Chest x-ray showed stable mild right-sided pleural effusion and pulmonary edema. Currently chest pain- free. Plan is for dialysis later this afternoon. Vascular history: Has been dealing with mixed arterial/venous lower extremity ulcerations since at least September 2018 intermittently followed by wound clinic. Referred to [facility] vascular surgery 11/2020 for recurrent right SFA occlusion. Underwent repeat endovascular intervention/wound debridement 11/2020. Wound deteriorated and eventual BKA 02/2021. Seen by vascular surgery 09/2021, skin breakdown at right BKA site healing. Transitioned all her care to [facility] due to insurance change and Dr. Lomeli no long practicing in area. 04/2022 seen with recurrent left leg claudication. On 04/20/22 underwent LLE angiogram revealing severe proximal SFA in-stent restenosis prior to 100% mid SFA occlusion. Proximal popliteal artery fills via collaterals with 2 vessel runoff to the foot. She underwent successful rotational atherectomy (Rotarex) and angioplasty with single MARSHA (Lutonix 6.0 x 300 mm) of left SFA. Post procedure had improvement in symptoms. 10/2022 had biopsy of her left kidney at [facility] complicated by hematoma and ELROY requiring dialysis. Also admitted 11/2022 to [facility] with anemia requiring transfusion. Was able to eventually stop dialysis. Arterial duplex in January 2023 showed severe restenosis of left distal SFA and significant reduced KOMAL/TBI. Claudication was stable and due to complex medical issues further arterial intervention was deferred. Since 2023 has been on hemodialysis. She had a left brachiobasilic fistula with Dr. Tamez June 2024. She states since then it has not worked properly and has only been used a handful of times. Currently being dialyzed via tunneled catheter. Prior vascular interventions: 06/2019LT SFA - Angioplasty to SFA with 2 MARSHA (5x150, 5x220) 10/2019RT SFA - CSI atherectomy with angioplasty to SFA (6.0 x 220, 6.0 x 120 Lutonix) 01/2020LT SFA - CSI atherectomy with MARSHA angioplasty (6.0 x 60, 6.0 x 220 Lutonix), stenting to proximal to mid SFA (6.0 x 150 Supera). BIOMEDICAL MANAGER occluded. 04/2020-RT SFA - Jetstream atherectomy, MARSHA angioplasty (6.0 x 220 Lutonix), 2 overlapping stents from ostium to mid SFA (6.0 x 40 SES, 6.0 x 150 Supera). 3 vessel runoff to foot. 07/2020-LT GSV Venaseal 11/2020[facility] Dr. Castellanos SFA AngioJet/MARSHA/self-expanding stent and wound debridement. 02/2021-[facility] Dr. Lomeli -RT BKA for RT foot deterioration/gangrene off anticoagulation for vaginal bleed 04/29/2022left SFA Rotarex, MARSHA [6.0 x 300 mm Lutonix]. Recent imaging: Arterial duplex 01/2025: Left TBI 0.1 (toe pressure 19 mmHg). 100% left proximal to mid SFA occlusion, >75% stenosis left mid popliteal (461 cm/s). Occluded left BIOMEDICAL MANAGER Arterial duplex/KOMAL 12/2022: Left KOMAL 0.44/TBI 0.27 (35 mmHg). Left mid SFA PSV 551. 50 to 74% left METAL TRIM ERECTOR, PFA. ARIAS/peroneal patent. BIOMEDICAL MANAGER occluded. KOMAL 05/2022: Left KOMAL 1.06, left TBI 0.72 KOMAL 04/2021: Left KOMAL 0.48, toe pressure 22 Right arterial duplex 10/2020: Occluded right SFA stents, diminished monophasic flow and right popliteal, ARIAS, BIOMEDICAL MANAGER. KOMAL/TBI 08/2020: Right KOMAL 0.47, absent toe pressures. Left KOMAL 0.73, TBI 0.12 KOMAL/TBI 06/2020: Right KOMAL 1.07, TBI 0.42. Left KOMAL 0.90, TBI 0.57 Allergies Allergy/AdvReac Type Severity Reaction Status Date / Time daptomycin Allergy Severe rhabdomyoly Verified 01/25/25 10:43 sis amoxicillin Allergy Intermediate HIVES & N/V Verified 01/25/25 10:43 clavulanic acid Allergy Intermediate HIVES & N/V Verified 01/25/25 10:43 vancomycin Allergy Intermediate pruritus Verified 01/25/25 10:43 sulfamethoxazole AdvReac Severe renal Verified 01/25/25 10:43 [From Bactrim] failure trimethoprim [From Bactrim] AdvReac Severe renal Verified 01/25/25 10:43 failure lisinopril AdvReac Intermediate NAUSEA/VOMI Verified 01/25/25 10:43 TING omeprazole AdvReac Intermediate Nausea Verified 01/25/25 10:43 Home Medications Medication Instructions Recorded Confirmed Type polyethylene glycol 3350 17 17 g PO DAILY PRN Constipation 12/13/21 02/17/25 History gram/dose oral powder (Miralax) aspirin 81 mg tablet,delayed 81 mg PO DAILY 11/15/22 02/17/25 History release (Adult Low Dose Aspirin) blood glucose control high and low #1 ea 04/03/23 01/25/25 Rx solution (Accu-Chek Guide L1-L2 Control Solution) mecobalamin (vitamin B12) 1,000 1,000 mcg sublingual DAILY #90 tabs 01/16/24 02/17/25 Rx mcg disintegrating tablet,sublingual sucroferric oxyhydroxide 500 mg 1,000 mg PO TIDWMEAL 08/13/24 02/17/25 History chewable tablet (Velphoro) metoprolol tartrate 25 mg tablet 25 mg PO DAILY #90 tabs 08/28/24 02/17/25 Rx rosuvastatin 40 mg tablet 40 mg PO QAM #90 tabs 08/28/24 02/17/25 Rx trazodone 50 mg tablet 25 mg (1/2 x 50 mg) PO HS #45 tabs 08/28/24 02/17/25 Rx bumetanide 1 mg tablet 1 mg PO BID 10/23/24 02/17/25 History ondansetron HCl 4 mg tablet 4 mg PO Q8H PRN Nausea And Vomiting 10/23/24 02/17/25 History Prosthetic Socket replacement #1 ea 01/01/25 01/25/25 Rx Socket replacement and supplies #1 ea 01/01/25 01/25/25 Rx amlodipine 5 mg tablet 5 mg PO DAILY 01/01/25 02/17/25 History omeprazole 20 mg capsule,delayed 20 mg PO DAILY 30 days #30 caps 01/25/25 02/17/25 Rx release oxycodone 10 mg tablet 10 mg PO Q6H PRN pain #120 tabs 02/05/25 02/17/25 Rx Patient History Medical History Hypervolemia Acute kidney injury superimposed on chronic kidney disease Acute kidney failure Chronic kidney disease, stage 4 (severe) Recurrent pleural effusion on right Chronic osteomyelitis Hypertension Non-traumatic rhabdomyolysis (02/2021) Postmenopausal bleeding Anemia of chronic disease Diabetic ulcer of left great toe PAD (peripheral artery disease) S/P right lower extremity angiogram, mechanical thrombectomy of pre-existing superficial femoral artery stent usinh Anjojet [place] Omni catheter, balloon angioplasty of the superficial femoral artery stent using 5 X 200 mm Phenix balloon, balloon angioplasty of the superficial femoral artery 6 X 250 mm IN.PACT drug coated balloon, stent angioplasty of the superficial femoral artery using 5 X 150 mm INOVA bare metal stent, and debridement of the right lateral foot on 11/14/[address] Lomeli. S/P bilateral SFA stenting Morbid obesity BMI 45.7 Clostridium difficile colitis history (~11/2016) -- treated no problems since. Charcot's joint of foot due to diabetes Surgical History History of vascular surgery (04/20/22) L SFA Angio Extremity Unilateral Fem Pop Balloon Atherectomy History of bilateral cataract extraction Status post amputation of toe of right foot (11/14/20) amputation metatarsal w/ toe, R S/P vascular surgery (11/2020) R fem-pop [id number] w/ stent and angioplasty S/P femoral-popliteal bypass surgery S/P angioplasty (10/2019) RT SFA atherectomy/angioplasty w/ MARSHA S/P angioplasty (06/2019) LT SFA angioplastly with MARSHA History of cholecystectomy History of tooth extraction History of esophagogastroduodenoscopy (EGD) S/P epidural steroid injection H/O vascular surgery (01/2020) LT SFA atherectomy, MARSHA w/ supera stenting History of lumpectomy of right breast benign Status post tubal ligation Status post tonsillectomy Family History Mother Rheumatoid arthritis Father Emphysema of lung Peripheral artery disease Aunt Breast cancer MOMS SIDE Colorectal cancer MOMS SIDE Myocardial infarction MOMS SIDE Brother Prostate cancer Sister COPD (chronic obstructive pulmonary disease) Other No family history of adverse response to anesthesia Denies family history of Ovarian cancer CAD (coronary atherosclerotic disease) Social History Smoking Status: Never smoker Tobacco Type: Cigarettes Age Started Using Tobacco: 9; Age Quit Using Tobacco: 54; packs per day: 2; Second Hand Exposure: No; Do You Dip or Chew Tobacco: No; Hx Alcohol Use: No Hx Substance Use: No Preferred Language: [place] Leonean Communication Ability: Effective Visual Impairment: No Limitations Hearing Ability: Normal Zoo Keeper Required: No Beliefs That Will Affect Care: None marital status: Current Living Situation: Family Current Living Situation Comment: lives with and son current occupational status: disabled How many Children do You have: 1 other: previous worked at [employer] Feels Safe at Home: Yes Childhood Exposure to Second-Hand Smoke: Yes (father was a heavy smoker ) Diet: regular Diet Comment: regular caffeine: Yes (very little) during the past year weight has: remained stable Dental Care, Regularly: No Physical Activity Frequency: Does not Exercise Seatbelt Use: always Sunscreen Use: No Assistive Devices: Cane, Walker and Wheelchair Review of Systems Review of Systems: All systems reviewed & are unremarkable except as noted in HPI & below Physical Exam Physical Exam: General: Comfortable, no acute distress Eyes: Sclerae anicteric Lungs: Clear to auscultation bilaterally Cardiac: Regular rate and rhythm, 2/6 systolic ejection murmur Abdomen: Soft, nontender Psych: Alert orient x3, normal affect and mood Extremities/Vascular: Post right BKA, prosthesis in place -- 2+ right radial Palpable thrill over left upper extremity fistula -- Nonpalpable left popliteal pulse -- Diminished left DP/PT pulses. Distal left foot warm -- No lower extremity ulcerations. -- Trace edema extending to mid rosenberg Results & Data Vital Signs (Past 12 Hours) Vital Signs Temp Pulse Pulse Resp BP BP Pulse Ox 02/17/25 08:33 67 18 102/52 L 93 02/17/25 07:05 63 17 153/53 H 98 02/17/25 06:56 61 02/17/25 06:14 146/56 H 02/17/25 06:00 61 21 97 02/17/25 05:54 62 19 97 02/17/25 05:45 62 13 97 02/17/25 05:35 02/17/25 05:21 64 19 95 02/17/25 05:18 64 18 94 02/17/25 05:00 66 20 151/62 H 95 02/17/25 04:31 64 20 149/67 H 95 02/17/25 04:00 67 16 147/64 H 94 02/17/25 03:30 67 16 140/55 L 94 02/17/25 03:00 69 16 134/63 95 02/17/25 02:51 73 02/17/25 02:37 20 96 02/17/25 02:37 02/17/25 02:37 97.9 F 69 20 146/59 H 96 Pulse Ox O2 Del Method O2 Del Method 02/17/25 08:33 Room Air 02/17/25 07:05 Room Air 02/17/25 06:56 02/17/25 06:14 02/17/25 06:00 Room Air 02/17/25 05:54 Room Air 02/17/25 05:45 Room Air 02/17/25 05:35 97 Room Air 02/17/25 05:21 Room Air 02/17/25 05:18 Room Air 02/17/25 05:00 02/17/25 04:31 02/17/25 04:00 02/17/25 03:30 02/17/25 03:00 02/17/25 02:51 02/17/25 02:37 Room Air 02/17/25 02:37 Room Air 02/17/25 02:37 Room Air PG Care Time/CCT Total # of Minutes Spent Total Time Spent with Patient: Total time spent is greater than 50% in coordination of care (as documented) at patient's floor/unit and/or counseling patient: Coding Level of Care Code 63278 INT INP/OBS CARE 2/55MIN Diagnoses Chest pain R07.9 Chest pain type: unspecified (1) Chest pain Chest pain type: unspecified Qualified Code(s): R07.9 - Chest pain, unspecified
--- NOTE | 2025-02-17 11:59 | Dialysis Progress Note ---
Date of Service February 17, 2025 Assessment & Plan (1) Chest pain: Plan: * Resolved following ASA, SL NTG * Trend troponin * POC discussed w/ Dr. Cr this am. Patient ate breakfast today. Will provide HD today and tentatively plan on cardiac catheterization tomorrow morning * Echocardiogram has been ordered (2) Pleural effusion on right: Plan: * CXR film reviewed this am - small bilateral pleural effusions and mild pulmonary edema (3) ESRD on dialysis: Plan: * HD being provided this morning. Orders reviewed w/ HD RN * Outpatient HD orders: 3.5hr 2K 2.5Ca [id number] Qb350 Na 135 HCO3 37 EDW 103.5 Heparin 1600/1000 * Patient is currently 1 hour into treatment, CP free and hemodynamically stable. No change to current HD prescription Admission and Anticipated Discharge Date Admission Date: February 17, 2025 Subjective Mrs. Simpson was evaluated while on HD this morning. IJ TCC is running A-->A at Qb 350 cc/min. SBP 102 mm Hg. Patient denies angina, dyspnea. Review of Systems Constitutional: no fever Eyes: no problem reported Ear, Nose, Mouth, Throat: no problem reported Respiratory: no dyspnea Cardiovascular: no chest pain Gastrointestinal: no nausea, no vomiting and no diarrhea/loose stools Genitourinary: no dysuria Integumentary: no rash Neurologic: no localized weakness Physical Exam Constitutional: not in distress Eyes: PERRL, conjunctivae normal, anicteric sclerae ENMT: external ear and nose normal, oropharynx normal Neck: trachea midline, no thyromegaly Respiratory: normal respiratory effort, lungs clear to auscultation Cardiovascular: Rate/Rhythm: regular rate and regular rhythm Extremities: + edema (trace LLE) Gastrointestinal (Abdomen): normal bowel sounds, soft, nontender, no hepatosplenomegaly Neurologic: no focal motor deficits Results & Data Vital Signs (Past 12 Hours) Vital Signs Temp Pulse Pulse Resp BP BP Pulse Ox 02/17/25 08:33 67 18 102/52 L 93 02/17/25 07:05 63 17 153/53 H 98 02/17/25 06:56 61 02/17/25 06:14 146/56 H 02/17/25 06:00 61 21 97 02/17/25 05:54 62 19 97 02/17/25 05:45 62 13 97 02/17/25 05:35 02/17/25 05:21 64 19 95 02/17/25 05:18 64 18 94 02/17/25 05:00 66 20 151/62 H 95 02/17/25 04:31 64 20 149/67 H 95 02/17/25 04:00 67 16 147/64 H 94 02/17/25 03:30 67 16 140/55 L 94 02/17/25 03:00 69 16 134/63 95 02/17/25 02:51 73 02/17/25 02:37 20 96 02/17/25 02:37 02/17/25 02:37 36.6 C 69 20 146/59 H 96 Pulse Ox O2 Del Method O2 Del Method 02/17/25 08:33 Room Air 02/17/25 07:05 Room Air 02/17/25 06:56 02/17/25 06:14 02/17/25 06:00 Room Air 02/17/25 05:54 Room Air 02/17/25 05:45 Room Air 02/17/25 05:35 97 Room Air 02/17/25 05:21 Room Air 02/17/25 05:18 Room Air 02/17/25 05:00 02/17/25 04:31 02/17/25 04:00 02/17/25 03:30 02/17/25 03:00 02/17/25 02:51 02/17/25 02:37 Room Air 02/17/25 02:37 Room Air 02/17/25 02:37 Room Air [facility] Procedure Codes (Charges) Renal/Urologic Renal/Urologic: 22489 Hemodialysis, One Evaluation Coding Level of Care Code None Diagnoses Chest pain R07.9 Chest pain type: unspecified Pleural effusion on right J90 ESRD on dialysis N18.6; Z99.2 CPT Codes Renal/Urologic - Renal/Urologic: 25466 Hemodialysis, One Evaluation ([id number]) (1) Chest pain Chest pain type: unspecified Qualified Code(s): R07.9 - Chest pain, unspecified
--- NOTE | 2025-02-17 12:17 | Electrocardiogram Report ---
Test Reason : Blood Pressure : */* mmHG Vent. Rate : 83 BPM Atrial Rate : 83 BPM P-R Int : 240 ms QRS Dur : 134 ms QT Int : 426 ms P-R-T Axes : 59 -60 67 degrees QTcB Int : 500 ms Sinus rhythm with 1st degree A-V block Left axis deviation Left ventricular hypertrophy with QRS widening ( R in aVL ) Cannot rule out Septal infarct (cited on or before 23-Oct-2024) Possible Lateral infarct , age undetermined Abnormal ECG When compared with ECG of 23-Oct-2024 12:36, AL interval has increased Borderline criteria for Lateral infarct are now Present Confirmed by Billy August ([id number]) on 02/17/2025 12:17:15 PM Referred By: REFERRED SELF Confirmed By: Billy August
[2025-02-17] MEDS: HEPARIN SOD (PORCINE) 1000 UNIT/ML IV ONE ×2 (13:05→16:52)
[2025-02-17] MEDS: HEPARIN SOD (PORCINE) 1000 UNIT/ML IV SCH (13:08)
[2025-02-17] MEDS: EPOETIN ALFA 4,000 UNIT/ML VIAL IV ONE (13:09)
--- NOTE | 2025-02-17 15:44 | Hospitalist Progress Note ---
Date of Service February 17, 2025 Assessment & Plan (1) Elevated troponin: (2) End-stage renal disease needing dialysis: (3) Hyperglycemia due to type 2 diabetes mellitus: (4) Chest pain: Plan The patient is a 64-year-old female with a PMH including ESRD on HD (MWF),, HFpEF, diabetes mellitus type 2, diabetic neuropathy, PAD, GERD, sleep apnea, chronic venous insufficiency, and osteoarthritis. was planning to see vascular (Dr Guardado) for revision of fistula. The patient presents to the emergency department with reports that she was awoken from sleep by substernal chest pain, that radiated to her left shoulder and left jaw. She took 2 baby aspirin at that time, and called EMS. EMS gave her 4 baby aspirin en route to the hospital, along with nitroglycerin sublingual, and the combination of all completely relieved her pain. in our ED, chest pain and shortness resolved. however, her troponin continue to increase and started on heparin ACS dose, she's has had her HD on saturday She reports that she is due for dialysis today Saturday, and typically receives dialysis Saturday, Saturday and Saturday. She did take all of her medications last evening as directed. Workup in the emergency department included a glucose of 496, which is unusual for her, and upon questioning of dietary issue, reported that she had 15 black cherries last evening. Patient reports that she has an appointment to follow-up with vascular surgery Dr. Guardado tomorrow. they will discuss revision of her left upper extremity fistula, which has only worked 12 times in the past year, and reportedly may be getting a graft for an occluded left side arterial circulation, which has been stented in the past. acute troponin elevation high likelihood of underlying CAD seen by Dr. Cr, plan for [facility] tomorrow. hold off stress test. heparin ACS dose aspirin, statin. Most recent echocardiogram on 10/25/2024 with ejection fraction 55-60%, unchanged compared to 01/22/2024 Hold oral bumetanide 1 mg p.o. twice daily Give bumetanide 1 mg IV now, and remainder of HFpEF exacerbation should be taken care of by dialysis today Continue metoprolol to tartrate, amlodipine, and aspirin Bumetanide 1 mg p.o. twice daily, will need to be redosed after dialysis today. ESRD on HD (MWF) Patient has dialysis catheter in right chest She has a incompletely functioning fistula in her left upper extremity She reports that she has an appointment with Dr. Guardado, vascular surgery, tomorrow to address the problem with the fistula, and address for flow in her left thigh which has had stents in the past already. Consult nephrology Dr. Hunt, covering for Dr. Mei Hyperglycemia due to diabetes mellitus- Glucose on admission was 496, then a follow-up with 452, then decreased to 390 after 8 units of regular insulin IV Increased glucoses likely due to eating 15 black cherries later in the day yesterday Check hemoglobin A1c If glucose does not come under control with sliding scale, will need to add long-acting insulin glargine Patient reports that she does not take any medications at home for diabetes PAD Hyperlipidemia- Continue rosuvastatin Chronic pain- Tylenol 650 mg by mouth every 6 hours as needed for mild pain or fever Continue oxycodone 10 mg p.o. every 6 hours as needed moderate pain Morphine sulfate 4 mg IV every 3 hours as needed for severe pain GERD- Continue omeprazole/pantoprazole Admission and Anticipated Discharge Date Admission Date: February 17, 2025 Subjective she raising troponin level and heparin ACS dose started extensive hx risk factor for CAD, DM, ESRD, hx of PVD aspirin and statin cardiology plan for [facility] tomorrow likely 11am or later Review of Systems Review of Systems: Constitutional: No Weight Change, No Fever, No Chills, No Night Sweats, No Fatigue, No Malaise Cardiovascular: + for chest pain; , No SOB, No PND, No Dyspnea on Exertion, No Orthopnea, No Claudication, No Edema, No Palpitations : No Cough, No Sputum, No Wheezing, No Smoke Exposure, No Dyspnea Gastrointestinal: No Nausea, No Vomiting, No Diarrhea, No Constipation, No Pain, No Heartburn, Musculoskeletal: No Arthralgias, No Myalgias, No Joint Swelling, No Joint Stiffness, No Back Pain, No Neck Pain, No Injury History Skin: No Skin Lesions, No Pruritis, No Hair Changes, No Breast/Skin Changes, No Nipple Discharge Neuro: No Weakness, No Numbness, No Paresthesias, No Loss of Consciousness, No Syncope : + for urine output (urinate 3 times per day) Endocrine: No Polyuria, No Polydipsia, No Temperature Intolerance Physical Exam Physical Exam: VITALS: Reviewed. WEIGHT/BMI reviewed. GEN: Healthy appearing, well-developed, NAD. -Head: NC/AT; NECK: Supple, with no masses. CV: RRR, no m/r/g. + for permcath LUNGS: CTAB, no w/r/c. ABD: Soft, NT/ND, NBS, no masses or organomegaly. : N/A MSK: No deformities, Normal gait. EXT: No clubbing, cyanosis, or edema. NEURO: AAox3 Results & Data Results & Data Vital Signs (Past 12 Hours) Vital Signs Temp Pulse Pulse Pulse Resp BP BP 02/17/25 13:30 63 107/54 L 02/17/25 13:00 62 114/57 L 02/17/25 12:30 66 98/40 L 02/17/25 12:00 59 L 102/44 L 02/17/25 11:30 57 L 100/47 L 02/17/25 11:04 58 L 122/49 L 02/17/25 10:55 36.5 C 60 02/17/25 08:33 67 18 102/52 L 02/17/25 07:05 63 17 153/53 H 02/17/25 06:56 61 02/17/25 06:14 146/56 H 02/17/25 06:00 61 21 02/17/25 05:54 62 19 02/17/25 05:45 62 13 02/17/25 05:35 02/17/25 05:21 64 19 02/17/25 05:18 64 18 02/17/25 05:00 66 20 151/62 H 02/17/25 04:31 64 20 149/67 H 02/17/25 04:00 67 16 147/64 H Pulse Ox Pulse Ox O2 Del Method O2 Del Method 02/17/25 13:30 02/17/25 13:00 02/17/25 12:30 02/17/25 12:00 02/17/25 11:30 02/17/25 11:04 02/17/25 10:55 02/17/25 08:33 93 Room Air 02/17/25 07:05 98 Room Air 02/17/25 06:56 02/17/25 06:14 02/17/25 06:00 97 Room Air 02/17/25 05:54 97 Room Air 02/17/25 05:45 97 Room Air 02/17/25 05:35 97 Room Air 02/17/25 05:21 95 Room Air 02/17/25 05:18 94 Room Air 02/17/25 05:00 95 02/17/25 04:31 95 02/17/25 04:00 94 Laboratory Results Laboratory Results - last 72 hr 02/17/25 02/17/25 02/17/25 02:38 04:33 05:03 WBC 7.64 RBC 3.39 L Hgb 10.4 L Hct 32.4 L MCV 95.6 MCH 30.7 MCHC 32.1 RDW Std Deviation 64.0 H RDW Coeff of Adelina 19.0 H Plt Count 198 MPV 10.0 Immature Gran % (Auto) 3.1 Neut % (Auto) 67.0 Lymph % (Auto) 15.3 Bacon % (Auto) 9.3 Eos % (Auto) 4.6 Baso % (Auto) 0.7 Neut # (Auto) 5.12 Lymph # (Auto) 1.17 L Bacon # (Auto) 0.71 H Eos # (Auto) 0.35 Baso # (Auto) 0.05 Immature Gran # (Auto) 0.24 H Absolute Nucleated RBC 0.03 Nucleated RBC % (auto) 0.4 Sodium 134 L Potassium 4.6 Chloride 94 L Carbon Dioxide 27 Anion Gap 13 H BUN 51 H Creatinine 5.72 H* Est Cr Clr Drug Dosing Not Reportable eGFR 7.71 BUN/Creatinine Ratio 8.9 L Glucose 496 H* POC Glucose 452 H* Estimat Average Glucose 180 Hemoglobin A1c 7.9 H Calcium 8.1 L Total Bilirubin 0.3 AST 12 L ALT 10 Alkaline Phosphatase 130 H Troponin I High Sens 26.1 H 309.3 H* D Total Protein 6.7 Albumin 3.4 Globulin 3.3 Albumin/Globulin Ratio 1.0 Triglycerides 172 H Cholesterol 88 LDL Cholesterol, Calc 22 VLDL Cholesterol, Calc 34 H HDL Cholesterol 32 Cholesterol/HDL Ratio 2.8 Lipase 26 02/17/25 02/17/25 02/17/25 05:28 07:23 12:56 WBC RBC Hgb Hct MCV MCH MCHC RDW Std Deviation RDW Coeff of Adelina Plt Count MPV Immature Gran % (Auto) Neut % (Auto) Lymph % (Auto) Bacon % (Auto) Eos % (Auto) Baso % (Auto) Neut # (Auto) Lymph # (Auto) Bacon # (Auto) Eos # (Auto) Baso # (Auto) Immature Gran # (Auto) Absolute Nucleated RBC Nucleated RBC % (auto) Sodium Potassium Chloride Carbon Dioxide Anion Gap BUN Creatinine Est Cr Clr Drug Dosing eGFR BUN/Creatinine Ratio Glucose POC Glucose 392 H* 254 H Estimat Average Glucose Hemoglobin A1c Calcium Total Bilirubin AST ALT Alkaline Phosphatase Troponin I High Sens 1691.7 H* D Total Protein Albumin Globulin Albumin/Globulin Ratio Triglycerides Cholesterol LDL Cholesterol, Calc VLDL Cholesterol, Calc HDL Cholesterol Cholesterol/HDL Ratio Lipase Medications Administered Current Inpatient Medications Acetaminophen (Acetaminophen 325 Mg Tab) 650 mg PO Q4H PRN PRN Reason: Pain or Fever Stop: 03/19/25 05:25 Amlodipine Besylate (Amlodipine Besylate 5 Mg Tab) 5 mg PO DAILY PER Stop: 03/19/25 08:59 Last Admin: 02/17/25 08:32 Dose: 5 mg Aspirin (Aspirin 81 Mg Ectab) 81 mg PO DAILY PER Stop: 03/19/25 08:59 Last Admin: 02/17/25 08:30 Dose: 81 mg Cyanocobalamin (Cyanocobalamin (B-12) 500 Mcg Tablet) 1,000 mcg PO DAILY PER Stop: 03/19/25 08:59 Last Admin: 02/17/25 08:31 Dose: 1,000 mcg Dextrose (Dextrose 50% 50 Ml Syringe) 25 - 50 ml IV UD PRN; Protocol PRN Reason: Hypoglycemia Protocol Stop: 03/19/25 05:25 Glucagon (Glucagon For Inj 1 Mg Vial) 1 mg SQ UD PRN; Protocol PRN Reason: Hypoglycemia Protocol Stop: 03/19/25 05:25 Glucose (Glucose 40% Gel 15 Gm Tube) 15 - 30 gm PO UD PRN; Protocol PRN Reason: Hypoglycemia Protocol Stop: 03/19/25 05:25 Glucose (Glucose 10 Tab/Tube) 4 - 8 tab PO UD PRN; Protocol PRN Reason: Hypoglycemia Protocol Stop: 03/19/25 05:25 Heparin Sodium (Porcine) (Heparin Sod (Porcine) 1000 Unit/Ml) 1 units IV NOW ONE Stop: 02/17/25 14:29 Sodium Chloride (Nss) 1,000 mls @ 0 mls/hr IV .Q0M PRN PRN Reason: For Hemodialysis Use ONLY Stop: 02/17/25 16:12 Heparin Sodium/Dextrose (Heparin 74481 Unit/500 Ml D5w) 25,000 units in 500 mls @ 0.02 mls/hr IV .Q24H [facility]; Protocol Stop: 03/19/25 14:29 Insulin Aspart (Insulin Aspart Per Unit Charge) 0 units SC ACHS [facility] Stop: 03/19/25 07:29 Last Admin: 02/17/25 08:02 Dose: 11 units Metoprolol Tartrate (Metoprolol Tartrate 25 Mg Tab) 25 mg PO DAILY [facility] Stop: 03/19/25 08:59 Last Admin: 02/17/25 08:30 Dose: 25 mg Miscellaneous (Velphoro - Order Awaiting Action) 1 each N/A QS [facility] Stop: 03/19/25 07:59 Miscellaneous (Carbohydrates For Hypoglycemia ) 15 - 30 gm PO UD PRN PRN Reason: Hypoglycemia Protocol Stop: 03/19/25 05:25 Morphine Sulfate (Morphine Sulfate 4 Mg/Ml 1 Ml Carp\Vial) 4 mg IV Q3H PRN PRN Reason: Severe Pain (Scale 7, 8, 9,10) Stop: 03/03/25 05:25 Ondansetron HCl (Ondansetron 4 Mg Od Tab) 4 mg PO Q8H PRN PRN Reason: Nausea And Vomiting Stop: 03/19/25 06:06 Oxycodone HCl (Oxycodone Hcl Ir 5 Mg Tab (Immediate Release)) 10 mg PO Q6H PRN PRN Reason: Moderate Pain (Scale 4, 5, 6) Stop: 03/03/25 05:25 Last Admin: 02/17/25 15:03 Dose: 10 mg Pantoprazole Sodium (Pantoprazole 40 Mg Tab) 40 mg PO DAILY [facility] Stop: 03/19/25 08:59 Last Admin: 02/17/25 08:31 Dose: 40 mg Polyethylene Glycol (Polyethylene (Miralax) 17 Gm Pack) 17 gm PO DAILY PRN PRN Reason: Constipation Stop: 03/19/25 05:25 Rosuvastatin Calcium (Rosuvastatin Calcium 20 Mg Tab) 40 mg PO QAM [facility] Stop: 03/19/25 08:59 Last Admin: 02/17/25 08:31 Dose: 40 mg Trazodone HCl (Trazodone Hcl 50 Mg Tab) 25 mg PO HS [facility] Stop: 03/19/25 20:59 PG Care Time/CCT Total # of Minutes Spent Total Time Spent with Patient: Total time spent is greater than 50% in coordination of care (as documented) at patient's floor/unit and/or counseling patient: Coding Level of Care Code 34898 SUB INP/OBS CARE 2/35MIN Diagnoses Elevated troponin R79.89 End-stage renal disease needing dialysis N18.6; Z99.2 Hyperglycemia due to type 2 diabetes mellitus E11.65; Z79.4 Diabetes mellitus penitentiary insulin use: with penitentiary use Chest pain R07.9 Chest pain type: unspecified Time Spent (min) 35 (3) Hyperglycemia due to type 2 diabetes mellitus Diabetes mellitus penitentiary insulin use: with door worker 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
[2025-02-17] MEDS: HEPARIN 25000 UNIT/500 ML D5W 25,000 UNITS/500 ML BAG IV SCH (16:52)
[2025-02-17] MEDS: Heparin IV Adult Wt-Based Low-Dose w/ INITIAL Bolus Protocol IV STA (16:53)
[2025-02-17 18:08] LABS: INR 1.0 (0.9-1.1); Partial Thromboplastin Time 25 Seconds (21-31); Prothrombin Time 10.9 Seconds (9.0-12.0)
[2025-02-17] MEDS: SUCROFERRIC OXYHYDROXIDE 500 MG CHEW PO SCH (19:59)
[2025-02-18 00:04] LABS: ANTI-Xa, UFH(UnfractionatedHep 0.14 IU/ml (0.3-0.7)
[2025-02-18] MEDS: HEPARIN SOD (PORCINE) 1000 UNIT/ML IV ONE (00:39)
[2025-02-18 07:29] LABS: Hematocrit (blood only) 30.2 % (37.0-47.0); Hemoglobin 9.8 g/dl (12.0-16.0); Immature Granulocytes # (auto) 0.20 K/uL (0.01-0.20); Immature Granulocytes % (auto) 2.3 %; Mean Corpuscular Hemoglobin 31.1 pg (25.0-34.0); Mean Corpuscular Volume 95.9 fL (80.0-100.0); Platelet Count 171 K/uL (130-400); RDW Standard Deviation 65.6 fL (36.4-46.3); Red Blood Count 3.15 M/uL (4.20-5.40); White Blood Count 8.80 K/ul (4.8-10.8)
[2025-02-18 07:48] LABS: Anion Gap 11.0 (3-11); Blood Urea Nitrogen 33.0 mg/dl (6-23); Calcium 8.4 mg/dl (8.6-10.3); Carbon Dioxide 28.0 mmol/L (21-32); Chloride 96.0 mmol/L (98-107); Creatinine Clr Calc Pharmacy 14.3 ml/min; Glucose 183.0 mg/dl (70-99(Fasting)); Magnesium 2.4 mg/dl (1.7-2.4); Potassium 4.2 mmol/L (3.5-5.1); Sodium 135.0 mmol/L (136-145)
[2025-02-18 07:55] LABS: ANTI-Xa, UFH(UnfractionatedHep 0.23 IU/ml (0.3-0.7)
--- NOTE | 2025-02-18 08:05 | Hospitalist Progress Note ---
Date of Service February 18, 2025 Assessment & Plan (1) Chest pain: (2) ESRD on dialysis: (3) (HFpEF) heart failure with preserved ejection fraction: (4) PAD (peripheral artery disease): (5) Chronic heart failure with preserved ejection fraction (HFpEF): Plan The patient is a 64-year-old female with a PMH including PVD s/p stent ESRD on HD (MWF),, HFpEF, diabetes mellitus type 2, diabetic neuropathy, GERD, sleep apnea, chronic venous insufficiency, and osteoarthritis. was planning to see vascular (Dr Guardado) for revision of fistula. The patient presents to the ER with reports that she was awoken from sleep by substernal chest pain, that radiated to her left shoulder and left jaw. She took 2 baby aspirin at that time, and called EMS. EMS gave her 4 baby aspirin en route to the hospital, along with nitroglycerin sublingual, and the combinati on of all completely relieved her pain. in our ED, chest pain and shortness resolved. heparin started on 02/17/2025, s/p HD on 02/17 heparin held on 7:51am (02/18), plan for [facility] on 02/18 Patient reports that she has an appointment to follow-up with vascular surgery Dr. Guardado tomorrow. they will discuss revision of her left upper extremity fistula, which has only worked 12 times in the past year, and reportedly may be getting a graft for an occluded left side arterial circulation, which has been stented in the past. acute troponin elevation high likelihood of underlying CAD heparin infusion started on 02/17 on 7:51am 02/18, heparin being held aspirin, statin. Most recent echocardiogram on 10/25/2024 with ejection fraction 55-60%, unchanged compared to 01/22/2024 Hold oral bumetanide 1 mg p.o. twice daily Give bumetanide 1 mg IV now, s/p HD Continue metoprolol to tartrate, amlodipine, and aspirin Bumetanide 1 mg p.o. twice daily, will need to be redosed after dialysis today. ESRD on HD (MWF) Patient has dialysis catheter in right chest She has a incompletely functioning fistula in her left upper extremity She reports that she has an appointment with Dr. Guardado, vascular surgery, tomorrow to address the problem with the fistula, and address for flow in her left thigh which has had stents in the past already. Consult nephrology Dr. Hunt, covering for Dr. Mei Hyperglycemia due to diabetes mellitus- Glucose on admission was 496, then a follow-up with 452, then decreased to 390 after 8 units of regular insulin IV Increased glucoses likely due to eating 15 black cherries later in the day yesterday Check hemoglobin A1c If glucose does not come under control with sliding scale, will need to add long-acting insulin glargine Patient reports that she does not take any medications at home for diabetes PAD, s/p stent Hyperlipidemia- Continue rosuvastatin Chronic pain- Tylenol 650 mg by mouth every 6 hours as needed for mild pain or fever Continue oxycodone 10 mg p.o. every 6 hours as needed moderate pain Morphine sulfate 4 mg IV every 3 hours as needed for severe pain GERD- Continue omeprazole/pantoprazole Admission and Anticipated Discharge Date Admission Date: February 17, 2025 Subjective heparin drip was stopped at 7:51am no other distress no worsening chest pain, no worsening shortness pain she has stents in both leg she has right leg amputation Review of Systems Review of Systems: Constitutional: No Weight Change, No Fever, No Chills, No Night Sweats, No Fatigue, No Malaise Cardiovascular: No Chest Pain, No SOB, No PND, No Dyspnea on Exertion, No Orthopnea, No Claudication, No Edema, No Palpitations Respiratory: No Cough, No Sputum, No Wheezing, No Smoke Exposure, No Dyspnea Gastrointestinal: No Nausea, No Vomiting, No Diarrhea, No Constipation, MSK: + for stents to both legl; + for right leg amputation Neuro: No Weakness, No Numbness, No Paresthesias, No Loss of Consciousness, No Syncope, No Dizziness, No Headache, No Coordination Changes, No Recent Falls Psych: No Anxiety/Panic, No Depression, No Insomnia, No Personality Changes, No Delusions, No Rumination, No SI/HI/AH/VH, No Social Issues, No Memory Changes, No Violence/Abuse Hx., No Eating Concerns Physical Exam Physical Exam: VITALS: Reviewed. WEIGHT/BMI reviewed. GEN: Healthy appearing, well-developed, NAD. -Head: NC/AT; -Eyes: PERRL, EOMI. No discharge or redn ess; NECK: Supple, with no masses. CV: RRR, no m/r/g. + for permcath LUNGS: CTAB, no w/r/c. ABD: Soft, NT/ND, NBS, no masses or organomegaly. SKIN: Warm, well perfused. No skin rashes or abnormal lesions. MSK: for right leg amputated. NEURO: AAOx3 Results & Data Results & Data Vital Signs (Past 12 Hours) Vital Signs Temp Pulse Pulse Resp BP Pulse Ox O2 Del Method 02/18/25 07:49 36.7 C 63 18 147/75 H 96 Room Air 02/18/25 05:26 02/18/25 04:14 36.3 C L 69 16 165/74 H 94 Room Air 02/17/25 23:20 36.8 C 63 16 133/72 97 Room Air 02/17/25 20:35 36.8 C 60 128/81 94 Room Air O2 Del Method 02/18/25 07:49 02/18/25 05:26 Room Air 02/18/25 04:14 02/17/25 23:20 02/17/25 20:35 Laboratory Results Laboratory Results - last 72 hr 02/17/25 02/17/25 02/17/25 02:38 04:33 05:03 WBC 7.64 RBC 3.39 L Hgb 10.4 L Hct 32.4 L MCV 95.6 MCH 30.7 MCHC 32.1 RDW Std Deviation 64.0 H RDW Coeff of Adelina 19.0 H Plt Count 198 MPV 10.0 Immature Gran % (Auto) 3.1 Neut % (Auto) 67.0 Lymph % (Auto) 15.3 [place] % (Auto) 9.3 Eos % (Auto) 4.6 Baso % (Auto) 0.7 Neut # (Auto) 5.12 Lymph # (Auto) 1.17 L [place] # (Auto) 0.71 H Eos # (Auto) 0.35 Baso # (Auto) 0.05 Immature Gran # (Auto) 0.24 H Absolute Nucleated RBC 0.03 Nucleated RBC % (auto) 0.4 PT INR APTT PTT Ratio Heparin Anti-Xa, Unfract Sodium 134 L Potassium 4.6 Chloride 94 L Carbon Dioxide 27 Anion Gap 13 H BUN 51 H Creatinine 5.72 H* Est Cr Clr Drug Dosing Not Reportable eGFR 7.71 BUN/Creatinine Ratio 8.9 L Glucose 496 H* POC Glucose 452 H* Estimat Average Glucose 180 Hemoglobin A1c 7.9 H Calcium 8.1 L Phosphorus Magnesium Total Bilirubin 0.3 AST 12 L ALT 10 Alkaline Phosphatase 130 H Troponin I High Sens 26.1 H 309.3 H* D Total Protein 6.7 Albumin 3.4 Globulin 3.3 Albumin/Globulin Ratio 1.0 Triglycerides 172 H Cholesterol 88 LDL Cholesterol, Calc 22 VLDL Cholesterol, Calc 34 H HDL Cholesterol 32 Cholesterol/HDL Ratio 2.8 Lipase 26 Nasal Screen MRSA (PCR) 02/17/25 02/17/25 02/17/25 05:28 07:23 12:56 WBC RBC Hgb Hct MCV MCH MCHC RDW Std Deviation RDW Coeff of Adelina Plt Count MPV Immature Gran % (Auto) Neut % (Auto) Lymph % (Auto) [place] % (Auto) Eos % (Auto) Baso % (Auto) Neut # (Auto) Lymph # (Auto) [place] # (Auto) Eos # (Auto) Baso # (Auto) Immature Gran # (Auto) Absolute Nucleated RBC Nucleated RBC % (auto) PT INR APTT PTT Ratio Heparin Anti-Xa, Unfract Sodium Potassium Chloride Carbon Dioxide Anion Gap BUN Creatinine Est Cr Clr Drug Dosing eGFR BUN/Creatinine Ratio Glucose POC Glucose 392 H* 254 H Estimat Average Glucose Hemoglobin A1c Calcium Phosphorus Magnesium Total Bilirubin AST ALT Alkaline Phosphatase Troponin I High Sens 1691.7 H* D Total Protein Albumin Globulin Albumin/Globulin Ratio Triglycerides Cholesterol LDL Cholesterol, Calc VLDL Cholesterol, Calc HDL Cholesterol Cholesterol/HDL Ratio Lipase Nasal Screen MRSA (PCR) 02/17/25 02/17/25 02/17/25 15:30 16:45 16:55 WBC RBC Hgb Hct MCV MCH MCHC RDW Std Deviation RDW Coeff of Adelina Plt Count MPV Immature Gran % (Auto) Neut % (Auto) Lymph % (Auto) [place] % (Auto) Eos % (Auto) Baso % (Auto) Neut # (Auto) Lymph # (Auto) [place] # (Auto) Eos # (Auto) Baso # (Auto) Immature Gran # (Auto) Absolute Nucleated RBC Nucleated RBC % (auto) PT 10.9 INR 1.0 APTT 25 PTT Ratio 0.9 Heparin Anti-Xa, Unfract Sodium Potassium Chloride Carbon Dioxide Anion Gap BUN Creatinine Est Cr Clr Drug Dosing eGFR BUN/Creatinine Ratio Glucose POC Glucose 158 H Estimat Average Glucose Hemoglobin A1c Calcium Phosphorus Magnesium Total Bilirubin AST ALT Alkaline Phosphatase Troponin I High Sens 1716.8 H* Total Protein Albumin Globulin Albumin/Globulin Ratio Triglycerides Cholesterol LDL Cholesterol, Calc VLDL Cholesterol, Calc HDL Cholesterol Cholesterol/HDL Ratio Lipase Nasal Screen MRSA (PCR) Negative 02/17/25 02/17/25 02/18/25 20:21 22:41 07:05 WBC 8.80 RBC 3.15 L Hgb 9.8 L Hct 30.2 L MCV 95.9 MCH 31.1 MCHC 32.5 RDW Std Deviation 65.6 H RDW Coeff of Adelina 19.7 H Plt Count 171 MPV 10.2 Immature Gran % (Auto) 2.3 Neut % (Auto) 62.8 Lymph % (Auto) 21.1 [place] % (Auto) 8.8 Eos % (Auto) 4.2 Baso % (Auto) 0.8 Neut # (Auto) 5.53 Lymph # (Auto) 1.86 [place] # (Auto) 0.77 H Eos # (Auto) 0.37 Baso # (Auto) 0.07 Immature Gran # (Auto) 0.20 Absolute Nucleated RBC 0.06 Nucleated RBC % (auto) 0.7 PT INR APTT PTT Ratio Heparin Anti-Xa, Unfract 0.14 L 0.23 L Sodium 135 L Potassium 4.2 Chloride 96 L Carbon Dioxide 28 Anion Gap 11 BUN 33 H Creatinine 4.52 H* D Est Cr Clr Drug Dosing 14.3 eGFR 10.23 BUN/Creatinine Ratio 7.3 L Glucose 183 H POC Glucose 187 H Estimat Average Glucose Hemoglobin A1c Calcium 8.4 L Phosphorus 5.9 H Magnesium 2.4 Total Bilirubin AST ALT Alkaline Phosphatase Troponin I High Sens 1459.1 H* Total Protein Albumin 3.3 L Globulin Albumin/Globulin Ratio Triglycerides Cholesterol LDL Cholesterol, Calc VLDL Cholesterol, Calc HDL Cholesterol Cholesterol/HDL Ratio Lipase Nasal Screen MRSA (PCR) Diagnostic Findings Laboratory Results WBC 8.80 K/ul (4.8-10.8) 02/18/25 07:05 RBC 3.15 M/uL (4.20-5.40) L 02/18/25 07:05 Hgb 9.8 g/dl (12.0-16.0) L 02/18/25 07:05 Hct 30.2 % (37.0-47.0) L 02/18/25 07:05 MCV 95.9 fL (80.0-100.0) 02/18/25 07:05 MCH 31.1 pg (25.0-34.0) 02/18/25 07:05 MCHC 32.5 g/dL (32.0-36.0) 02/18/25 07:05 RDW Std Deviation 65.6 fL (36.4-46.3) H 02/18/25 07:05 RDW Coeff of Adelina 19.7 % (11.5-14.5) H 02/18/25 07:05 Plt Count 171 K/uL (130-400) 02/18/25 07:05 MPV 10.2 fL (9.4-12.4) 02/18/25 07:05 Immature Gran % (Auto) 2.3 % 02/18/25 07:05 Neut % (Auto) 62.8 % 02/18/25 07:05 Lymph % (Auto) 21.1 % 02/18/25 07:05 [place] % (Auto) 8.8 % 02/18/25 07:05 Eos % (Auto) 4.2 % 02/18/25 07:05 Baso % (Auto) 0.8 % 02/18/25 07:05 Neut # (Auto) 5.53 K/uL (1.40-6.50) 02/18/25 07:05 Lymph # (Auto) 1.86 K/uL (1.20-3.40) 02/18/25 07:05 [place] # (Auto) 0.77 K/uL (0.11-0.59) H 02/18/25 07:05 Eos # (Auto) 0.37 K/uL (0.00-0.50) 02/18/25 07:05 Baso # (Auto) 0.07 K/uL (0.00-0.20) 02/18/25 07:05 Immature Gran # (Auto) 0.20 K/uL (0.01-0.20) 02/18/25 07:05 Absolute Nucleated RBC 0.06 K/uL (0.00-0.12) 02/18/25 07:05 Nucleated RBC % (auto) 0.7 % 02/18/25 07:05 PT 10.9 Seconds (9.0-12.0) 02/17/25 16:55 INR 1.0 (0.9-1.1) 02/17/25 16:55 APTT 25 Seconds (21-31) 02/17/25 16:55 PTT Ratio 0.9 02/17/25 16:55 Heparin Anti-Xa, Unfract 0.23 IU/ml (0.3-0.7) L 02/18/25 07:05 Sodium 135 mmol/L (136-145) L 02/18/25 07:05 Potassium 4.2 mmol/L (3.5-5.1) 02/18/25 07:05 Chloride 96 mmol/L (98-107) L 02/18/25 07:05 Carbon Dioxide 28 mmol/L (21-32) 02/18/25 07:05 Anion Gap 11 (3-11) 02/18/25 07:05 BUN 33 mg/dl (6-23) H 02/18/25 07:05 Creatinine 4.52 mg/dl (0.6-1.2) H* D 02/18/25 07:05 Est Cr Clr Drug Dosing 14.3 ml/min 02/18/25 07:05 eGFR 10.23 02/18/25 07:05 BUN/Creatinine Ratio 7.3 (10-20) L 02/18/25 07:05 Glucose 183 mg/dl (70-99(Fasting)) H 02/18/25 07:05 POC Glucose 187 mg/dl (70-99) H 02/17/25 20:21 Estimat Average Glucose 180 mg/dl 02/17/25 05:03 Hemoglobin A1c 7.9 % (4.5-5.6) H 02/17/25 05:03 Calcium 8.4 mg/dl (8.6-10.3) L 02/18/25 07:05 Phosphorus 5.9 mg/dl (2.5-4.9) H 02/18/25 07:05 Magnesium 2.4 mg/dl (1.7-2.4) 02/18/25 07:05 Total Bilirubin 0.3 mg/dl (0.2-1.0) 02/17/25 02:38 AST 12 U/L (13-39) L 02/17/25 02:38 ALT 10 U/L (7-52) 02/17/25 02:38 Alkaline Phosphatase 130 U/L (34-104) H 02/17/25 02:38 Troponin I High Sens 1459.1 pg/ml (0-14) H* 02/17/25 22:41 Total Protein 6.7 gm/dl (6.0-8.3) 02/17/25 02:38 Albumin 3.3 gm/dl (3.4-5.0) L 02/18/25 07:05 Globulin 3.3 gm/dl (2.5-4.0) 02/17/25 02:38 Albumin/Globulin Ratio 1.0 (0.9-2) 02/17/25 02:38 Triglycerides 172 mg/dl (0-150) H 02/17/25 05:03 Cholesterol 88 mg/dl (0-200) 02/17/25 05:03 LDL Cholesterol, Calc 22 mg/dl 02/17/25 05:03 VLDL Cholesterol, Calc 34 mg/dl (0-30) H 02/17/25 05:03 HDL Cholesterol 32 mg/dl 02/17/25 05:03 Cholesterol/HDL Ratio 2.8 (0-5) 02/17/25 05:03 Lipase 26 U/L (11-82) 02/17/25 02:38 Nasal Screen MRSA (PCR) Negative (Negative) 02/17/25 15:30 Impressions Chest X-Ray 02/17/25 02:37 EXAM: XR chest 1V portable CLINICAL HISTORY: Chest pain, nonspecific TECHNIQUE: Radiograph of chest was acquired. COMPARISON: 10/24/2024 FINDINGS: Exaggerated vascular and interstitial lung markings bilaterally. Ill-defined fluffy opacities in the bilateral lower lung zones. New finding. Mild right pleural effusion with right basilar atelectasis. Possible minimal blunting of left costophrenic angle. Prominent hilar vascular changes. Right-sided central venous line, its tip in the right atrium. Mild cardiomegaly. Rest of the cardiomediastinal silhouette is within normal limits. No acute osseous abnormality. Spine degenerative changes. IMPRESSION: Mild right-sided pleural effusion with underlying collapse and consolidation.Unchanged Possible minimal blunting of left costophrenic angle.could represent pleural thickening/small pleural effusion, new finding. Interval unchanged exaggerated vascular and interstitial lung markings with ill-defined lower zone fluffy opacities and a prominent hilar vascular shadow. Congestion cannot be excluded. The right central venous line, its tip in the right atrium.stable. Mild cardiomegaly.stable. Electronically signed by Víctor Marin 02-17-2025 04:25 AM Medications Administered Current Inpatient Medications Acetaminophen (Acetaminophen 325 Mg Tab) 650 mg PO Q4H PRN PRN Reason: Pain or Fever Stop: 03/19/25 05:25 Amlodipine Besylate (Amlodipine Besylate 5 Mg Tab) 5 mg PO DAILY PER Stop: 03/19/25 08:59 Last Admin: 02/17/25 08:32 Dose: 5 mg Aspirin (Aspirin 81 Mg Ectab) 81 mg PO DAILY PER Stop: 03/19/25 08:59 Last Admin: 02/17/25 08:30 Dose: 81 mg Cyanocobalamin (Cyanocobalamin (B-12) 500 Mcg Tablet) 1,000 mcg PO DAILY PER Stop: 03/19/25 08:59 Last Admin: 02/17/25 08:31 Dose: 1,000 mcg Dextrose (Dextrose 50% 50 Ml Syringe) 25 - 50 ml IV UD PRN; Protocol PRN Reason: Hypoglycemia Protocol Stop: 03/19/25 05:25 Glucagon (Glucagon For Inj 1 Mg Vial) 1 mg SQ UD PRN; Protocol PRN Reason: Hypoglycemia Protocol Stop: 03/19/25 05:25 Glucose (Glucose 40% Gel 15 Gm Tube) 15 - 30 gm PO UD PRN; Protocol PRN Reason: Hypoglycemia Protocol Stop: 03/19/25 05:25 Glucose (Glucose 10 Tab/Tube) 4 - 8 tab PO UD PRN; Protocol PRN Reason: Hypoglycemia Protocol Stop: 03/19/25 05:25 Heparin Sodium/Dextrose (Heparin 55509 Unit/500 Ml D5w) 25,000 units in 500 mls @ 0 mls/hr IV .Q0M PER; Protocol Stop: 03/19/25 16:29 Last Titration: 02/18/25 07:54 Dose: 0 units/hr, 0 mls/hr Insulin Aspart (Insulin Aspart Per Unit Charge) 0 units SC ACHS PER Stop: 03/19/25 07:29 Last Admin: 02/17/25 21:00 Dose: 3 units Metoprolol Tartrate (Metoprolol Tartrate 25 Mg Tab) 25 mg PO DAILY [facility] Stop: 03/19/25 08:59 Last Admin: 02/17/25 08:30 Dose: 25 mg Miscellaneous (Carbohydrates For Hypoglycemia ) 15 - 30 gm PO UD PRN PRN Reason: Hypoglycemia Protocol Stop: 03/19/25 05:25 Morphine Sulfate (Morphine Sulfate 4 Mg/Ml 1 Ml Carp\Vial) 4 mg IV Q3H PRN PRN Reason: Severe Pain (Scale 7, 8, 9,10) Stop: 03/03/25 05:25 Ondansetron HCl (Ondansetron 4 Mg Od Tab) 4 mg PO Q8H PRN PRN Reason: Nausea And Vomiting Stop: 03/19/25 06:06 Oxycodone HCl (Oxycodone Hcl Ir 5 Mg Tab (Immediate Release)) 10 mg PO Q6H PRN PRN Reason: Moderate Pain (Scale 4, 5, 6) Stop: 03/03/25 05:25 Last Admin: 02/17/25 21:04 Dose: 10 mg Pantoprazole Sodium (Pantoprazole 40 Mg Tab) 40 mg PO DAILY PER Stop: 03/19/25 08:59 Last Admin: 02/17/25 08:31 Dose: 40 mg Polyethylene Glycol (Polyethylene (Miralax) 17 Gm Pack) 17 gm PO DAILY PRN PRN Reason: Constipation Stop: 03/19/25 05:25 Rosuvastatin Calcium (Rosuvastatin Calcium 20 Mg Tab) 40 mg PO QAM PER Stop: 03/19/25 08:59 Last Admin: 02/17/25 08:31 Dose: 40 mg Sucroferric Oxyhydroxide (Sucroferric Oxyhydroxide 500 Mg Chew) 1,000 mg PO TIDM PER Stop: 03/19/25 17:59 Last Admin: 02/17/25 19:59 Dose: Not Given Trazodone HCl (Trazodone Hcl 50 Mg Tab) 25 mg PO HS PER Stop: 03/19/25 20:59 Last Admin: 02/17/25 22:48 Dose: 25 mg PG Care Time/CCT Total # of Minutes Spent Total Time Spent with Patient: Total time spent is greater than 50% in coordination of care (as documented) at patient's floor/unit and/or counseling patient: Coding Level of Care Code 12766 SUB INP/OBS CARE 07/04MIN Diagnoses Chest pain R07.9 Chest pain type: unspecified ESRD on dialysis N18.6; Z99.2 (HFpEF) heart failure with preserved ejection fraction I50.30 PAD (peripheral artery disease) I73.9 Chronic heart failure with preserved ejection fraction (HFpEF) I50.32 Time Spent (min) 25 (1) Chest pain Chest pain type: unspecified Qualified Code(s): R07.9 - Chest pain, unspecified
--- NOTE | 2025-02-18 08:54 | Nephrology Progress Note ---
Date of Service February 18, 2025 Assessment & Plan (1) Chest pain: Plan: * Resolved following ASA, SL NTG * Troponin has increased to 1459 this am. Discussed elevated troponin and need for further cardiac testing w/ patient this morning * Patient is awaiting cardiac catheterization * Echocardiogram has been ordered (2) Pleural effusion on right: Plan: * Admission CXR w/ blunting of the CPA bilaterally, mild pulmonary congestion. 2.2 L UF w/ HD yesterday. No plasma refill at end of treatment (3) ESRD on dialysis: Plan: * Volume status and electrolyte balance are acceptable. No acute indication for HD today * Outpatient HD orders: 3.5hr 2K 2.5Ca [id number] Qb350 Na 135 HCO3 37 EDW 103.5 Heparin 1600/1000 * Will schedule next HD for am Admission and Anticipated Discharge Date Admission Date: February 17, 2025 Subjective Mrs. Simpson was evaluated in her hospital room this morning. She denied angina or dyspnea. Dialysis was performed yesterday for 2.2 L UF. She denied any complications or cramping. Review of Systems Constitutional: no fever Eyes: no problem reported Ear, Nose, Mouth, Throat: no problem reported Respiratory: no dyspnea Cardiovascular: no chest pain Gastrointestinal: no nausea, no vomiting and no diarrhea/loose stools Genitourinary: no dysuria Integumentary: no rash Neurologic: no localized weakness Physical Exam Constitutional: not in distress Eyes: PERRL, conjunctivae normal, anicteric sclerae ENMT: external ear and nose normal, oropharynx normal Neck: trachea midline, no thyromegaly Respiratory: normal respiratory effort, lungs clear to auscultation Cardiovascular: Rate/Rhythm: regular rate and regular rhythm Extremities: + edema (trace LLE) Gastrointestinal (Abdomen): normal bowel sounds, soft, nontender, no hepatosplenomegaly Neurologic: no focal motor deficits Results & Data Vital Signs (Past 12 Hours) Vital Signs Temp Pulse Resp BP Pulse Ox O2 Del Method O2 Del Method 02/18/25 07:49 36.7 C 63 18 147/75 H 96 Room Air 02/18/25 05:26 Room Air 02/18/25 04:14 36.3 C L 69 16 165/74 H 94 Room Air 02/17/25 23:20 36.8 C 63 16 133/72 97 Room Air Laboratory Results Laboratory Results - last 24 hr 02/17/25 02/17/25 02/17/25 12:56 15:30 16:45 WBC RBC Hgb Hct MCV MCH MCHC RDW Std Deviation RDW Coeff of Adelina Plt Count MPV Immature Gran % (Auto) Neut % (Auto) Lymph % (Auto) [place] % (Auto) Eos % (Auto) Baso % (Auto) Neut # (Auto) Lymph # (Auto) [place] # (Auto) Eos # (Auto) Baso # (Auto) Immature Gran # (Auto) Absolute Nucleated RBC Nucleated RBC % (auto) PT INR APTT PTT Ratio Heparin Anti-Xa, Unfract Sodium Potassium Chloride Carbon Dioxide Anion Gap BUN Creatinine Est Cr Clr Drug Dosing eGFR BUN/Creatinine Ratio Glucose POC Glucose 158 H Calcium Phosphorus Magnesium Troponin I High Sens 1691.7 H* D Albumin Nasal Screen MRSA (PCR) Negative 02/17/25 02/17/25 02/17/25 16:55 20:21 22:41 WBC RBC Hgb Hct MCV MCH MCHC RDW Std Deviation RDW Coeff of Adelina Plt Count MPV Immature Gran % (Auto) Neut % (Auto) Lymph % (Auto) [place] % (Auto) Eos % (Auto) Baso % (Auto) Neut # (Auto) Lymph # (Auto) [place] # (Auto) Eos # (Auto) Baso # (Auto) Immature Gran # (Auto) Absolute Nucleated RBC Nucleated RBC % (auto) PT 10.9 INR 1.0 APTT 25 PTT Ratio 0.9 Heparin Anti-Xa, Unfract 0.14 L Sodium Potassium Chloride Carbon Dioxide Anion Gap BUN Creatinine Est Cr Clr Drug Dosing eGFR BUN/Creatinine Ratio Glucose POC Glucose 187 H Calcium Phosphorus Magnesium Troponin I High Sens 1716.8 H* 1459.1 H* Albumin Nasal Screen MRSA (PCR) 02/18/25 07:05 WBC 8.80 RBC 3.15 L Hgb 9.8 L Hct 30.2 L MCV 95.9 MCH 31.1 MCHC 32.5 RDW Std Deviation 65.6 H RDW Coeff of Adeilna 19.7 H Plt Count 171 MPV 10.2 Immature Gran % (Auto) 2.3 Neut % (Auto) 62.8 Lymph % (Auto) 21.1 [place] % (Auto) 8.8 Eos % (Auto) 4.2 Baso % (Auto) 0.8 Neut # (Auto) 5.53 Lymph # (Auto) 1.86 [place] # (Auto) 0.77 H Eos # (Auto) 0.37 Baso # (Auto) 0.07 Immature Gran # (Auto) 0.20 Absolute Nucleated RBC 0.06 Nucleated RBC % (auto) 0.7 PT INR APTT PTT Ratio Heparin Anti-Xa, Unfract 0.23 L Sodium 135 L Potassium 4.2 Chloride 96 L Carbon Dioxide 28 Anion Gap 11 BUN 33 H Creatinine 4.52 H* D Est Cr Clr Drug Dosing 14.3 eGFR 10.23 BUN/Creatinine Ratio 7.3 L Glucose 183 H POC Glucose Calcium 8.4 L Phosphorus 5.9 H Magnesium 2.4 Troponin I High Sens Albumin 3.3 L Nasal Screen MRSA (PCR) PG Care Time/CCT Total # of Minutes Spent Total Time Spent with Patient: Total time spent is greater than 50% in coordination of care (as documented) at patient's floor/unit and/or counseling patient: Coding Level of Care Code 56352 SUB INP/OBS CARE 3/50MIN Diagnoses Chest pain R07.9 Chest pain type: unspecified Pleural effusion on right J90 ESRD on dialysis N18.6; Z99.2 (1) Chest pain Chest pain type: unspecified Qualified Code(s): R07.9 - Chest pain, unspecified
--- NOTE | 2025-02-18 11:53 | Pre Anesthesia Assessment ---
Date of Service February 18, 2025 Pre Sedation Assessment Vital Signs Temp Pulse Pulse Pulse Resp BP BP 02/18/25 09:00 63 02/18/25 07:49 98.1 F 63 18 147/75 H 02/18/25 05:26 02/18/25 04:14 97.3 F L 69 16 165/74 H 02/17/25 23:20 98.2 F 63 16 133/72 02/17/25 20:35 98.2 F 60 128/81 02/17/25 19:30 97.9 F 66 18 149/88 H 02/17/25 15:48 98.2 F 66 18 131/61 02/17/25 14:40 97.9 F 72 132/54 L 02/17/25 14:30 59 L 95/45 L 02/17/25 14:00 65 104/47 L 02/17/25 13:30 63 107/54 L 02/17/25 13:00 62 114/57 L 02/17/25 12:34 62 02/17/25 12:30 66 98/40 L 02/17/25 12:00 59 L 102/44 L Pulse Ox O2 Del Method O2 Del Method 02/18/25 09:00 02/18/25 07:49 96 Room Air 02/18/25 05:26 Room Air 02/18/25 04:14 94 Room Air 02/17/25 23:20 97 Room Air 02/17/25 20:35 94 Room Air 02/17/25 19:30 95 Room Air 02/17/25 15:48 95 Room Air 02/17/25 14:40 02/17/25 14:30 02/17/25 14:00 02/17/25 13:30 02/17/25 13:00 02/17/25 12:34 02/17/25 12:30 02/17/25 12:00 Cardiovascular + regular rate Respiratory + respiratory effort normal Pre-Sedation Airway Assessment Smoking Status: Never smoker Hx Sleep Apnea: No Hx Difficult Intubation: No Short, Thick Neck: No Thyromental Distance: > or= 3.5 Finger Breadths Oral Cavity: + WNL Mallampati Class: III ASA: ASA3 NPO Status Date of Last Intake of Fluids: 02/18/25 Time of Last Intake of Fluids: 07:00 Date of Last Intake of Solid Food: 02/17/25 Time of Last Intake of Solid Foods: 22:00 Procedure Planning Contraindications for Sedation: none Current Medications Reviewed: Yes Notes The planned sedation has been discussed with the patient. Informed Consent was obtained. I have identified the patient, determined the appropriateness of sedation and have assessed the patient immediately prior to the procedure. All medicine(s) and interventions are by my order.
[2025-02-18] MEDS: OPTIRAY 350 ONE (13:53)
[2025-02-18] MEDS: niCARdipine 2,000 MCG/20 ML SYR ONE (13:53)
[2025-02-18] MEDS: NITROGLYCERIN/D5W 100MCG/ML 20ML SYR ONE (13:54)
[2025-02-18] MEDS: LIDOCAINE 1% LOCAL 20 ML VIAL ONE (13:55)
[2025-02-18] MEDS: HEPARIN (PORCINE) 1000 UNIT/ML 10 ML (CATH LAB USE ONLY) ONE (14:09)
[2025-02-18] MEDS: MIDAZOLAM HCL 1 MG/ML 2ML VIAL ONE (14:10)
[2025-02-18] MEDS: IODIXANOL (VISIPAQUE) 320 MG/ML 100ML IV ONE (14:12)
--- NOTE | 2025-02-18 14:49 | Post Anesthesia Assessment ---
Date of Service February 18, 2025 Post Sedation Assessment Vital Signs Temp Pulse Pulse Pulse Resp BP BP 02/18/25 14:30 65 18 76/45 L 02/18/25 09:00 63 02/18/25 07:49 98.1 F 63 18 147/75 H 02/18/25 05:26 02/18/25 04:14 97.3 F L 69 16 165/74 H 02/17/25 23:20 98.2 F 63 16 133/72 02/17/25 20:35 98.2 F 60 128/81 02/17/25 19:30 97.9 F 66 18 149/88 H 02/17/25 15:48 98.2 F 66 18 131/61 Pulse Ox O2 Del Method O2 Del Method 02/18/25 14:30 95 02/18/25 09:00 02/18/25 07:49 96 Room Air 02/18/25 05:26 Room Air 02/18/25 04:14 94 Room Air 02/17/25 23:20 97 Room Air 02/17/25 20:35 94 Room Air 02/17/25 19:30 95 Room Air 02/17/25 15:48 95 Room Air Recovery Score Activity: Moves 4 extremities Respiration: Deep Breath/Cough Circulation: +/-20% PreAnes Value Consciousness: Fully Awake Oxygen Saturation: > 92% On Room Air Post Anesthesia Score: 10 Discharge Sedation Level of Care: Fast Track Phase II
--- NOTE | 2025-02-18 14:57 | Cardiac Catheterization ---
[facility] Data: Wireless Sales Expert Cardiac Status Clinical evaluation leading to the procedure CAD Presenation: Non STEMI Anginal Classification: CCS IV Diagnostic Physicians Name: Martin Cr MD Closure Device Recommendations: Medical Therapy and/or Counseling Cardiac Cath Procedure Full Procedure Date February 18, 2025 Pre-Procedure Diagnosis Pre-Procedure Diagnosis: Non STEMI AUC Score AUC Score: 8 Post-Procedure Diagnosis Post-Procedure Diagnosis: Severe CAD and Normal Intracardiac Pressures Procedure(s) Performed Procedure(s) Performed: Coronary Angiography, Left Heart Cath and Ultrasound Guided Vascular Access Intelligence Senior Sergeant Martin Cr MD Trimmer Machine Operator(s) [place] Estimated Blood Loss Estimated Blood Loss: 20 Medication(s) Medication(s): Fentanyl, Heparin, Lidocaine 1%, Nicardipine, Nitroglycerin and Versed Summary of Findings Indication: NSTEMI Access: 6 Fr right radial artery under ultrasound guidance. 4 Fr right CFV for venous access Catheters: [place], 3 ELYSIA Findings: LM -normal caliber, 80 to 90% distal stenosis right before trifurcation LAD -medium caliber diffuse proximal to mid disease up to 60 to 70% in the earlymid segment. Remainder of vessel without significant disease and good target for bypass. Medium D2 without significant disease. Ramusmedium caliber, 40% proximal stenosis, no other significant disease. Circumflex -medium caliber, diffuse proximal to mid disease with 80% mid stenosis. Distal vessel into OM without significant disease. RCA -dominant, medium caliber, 95% earlymid stenosis, 30% distal disease. RPDA and PLB without significant disease. LVEDP -19 Arterial Closure: TR band Summary: 1. Severe multivessel coronary artery disease - 80-90% distal left main prior to trifurcation 95% earlymid RCA Diffuse proximal to early-mid LAD up to 60% stenosis 80% mid circumflex 2. Normal intracardiac filling pressure Recommendations: Referral to tertiary center for consideration of CABG first complex PCI Hemodynamics Rest Ao:: 162/42/86 Final Ao: 160/48/89 LV: 168/19 Recommendations Recommendations: Medical Therapy and/or Counseling Radiation Exposure (mGy) 2369 Contrast (mls) 135 Anesthesia Moderate [id number] Procedural Complication(s) None Disposition PCU I attest to the content of the Intraoperative Record and any orders documented therein. Any exceptions are noted below. [email or web address] Card Cath Procedure Codes Cardiac Catheterization Procedure 1: Cardiovascular Cath Procedures: 00707 Coronaries and LHC (+/-LV) Therapeutic Services & Ancillary Procedure 1: Cardiovascular Tx and Anc Procedures: 09131 Ultrasonic Guidance Vascular Access Moderate Sedation Procedure 1: Sedation/Anesthesia: 48318 Mod Sedation by the same physician;Init15 Min Child Age 5 & Up Procedure 2: Sedation/Anesthesia: 27646 Mod Sedation by the same physician; Ea [id number] Minutes PG Care Time/CCT Total # of Minutes Spent Total Time Spent with Patient: Total time spent is greater than 50% in coordination of care (as documented) at patient's floor/unit and/or counseling patient:
[2025-02-18 15:02] VITALS: TEMP 97.5
[2025-02-18 15:40] VITALS: RESP 20; O2SAT 96
[2025-02-18] MEDS: DOXYCYCLINE HYCLATE 100 MG in DEXTROSE 5% MINI-B 100 ML IV SCH (16:51)
[2025-02-18] MEDS: SODIUM CHLORIDE 0.9% 500 ML IV SCH (17:44)
[2025-02-18 17:55] VITALS: BP 145/69; PULSE 64
--- NOTE | 2025-02-18 17:59 | Discharge Summary ---
Discharge Summary Date of Service February 18, 2025 Principal Dx & Hospital Course #1 = Principal Diagnosis (1) Chest pain: Jeanne Simpson is a 64 yo woman with PMH Of diabetes, PVD, ESRD on HD (MWF), former smoker (quitted 12 years ago), PVD s/p stent, right leg amputation she's has multiple antibiotics allergy (amoxicillin (hives), vancomycin (pruritis), and calvulanic acid (hives) she's was schedule for vascular surgery f/u for lower extremity stent. on 02/18/2024 4am, she's came to our hospital with chest pain radiate into the left shoulder and left jaw. took 2 baby aspirin and then EMS given her 4 more baby aspirin and came here for evaluation. she's was noted to has glucose. her troponin increased from 26.1---> 309.3 (02/17, 5am)--> 1716.8 (02/17 4:55pm), she's was started on heparin ACS dose she was seen by nephrology and s/p hemodialysis on Saturday. she s/p LHC on 02/18/2025 1pm and found to has multivessel CAD. she was accepted by CT surgeon at [facility]. she will need to be restarted on heparin ACS dose during the transfer process at 5pm, her BP was measure in the left leg and noted to be 76/45; communicated with cardiology and suspect this an artifact related to lower extremity measurement. patient was started on empirically doxycycycline IV. spoke with transfer center at [facility], however, they deferring air transport patient was started on low dose IV fluid. she was evaluated at 5:30pm, mentation intact, denied any dizziness, chest discomfort. shortness of breath [facility] will need to consult nephrology for ESRD. and will benefit from empiric sepsis evaluation during her hospital stay she should hold her morning amlodipine until her blood pressure stabilized. (2) ESRD on dialysis: (3) (HFpEF) heart failure with preserved ejection fraction: (4) PAD (peripheral artery disease): (5) Chronic heart failure with preserved ejection fraction (HFpEF): Plan The patient is a 64-year-old female with a PMH including PVD s/p stent ESRD on HD (MWF),, HFpEF, diabetes mellitus type 2, diabetic neuropathy, GERD, sleep apnea, chronic venous insufficiency, and osteoarthritis. was planning to see vascular (Dr Guardado) for revision of fistula. The patient presents to the ER with reports that she was awoken from sleep by substernal chest pain, that radiated to her left shoulder and left jaw. She took 2 baby aspirin at that time, and called EMS. EMS gave her 4 baby aspirin en route to the hospital, along with nitroglycerin sublingual, and the combination of all completely relieved her pain. in our ED, chest pain and shortness resolved. heparin started on 02/17/2025, s/p HD on 02/17 heparin held on 7:51am (02/18), plan for C on 02/18 Patient reports that she has an appointment to follow-up with vascular surgery Dr. Guardado tomorrow. they will discuss revision of her left upper extremity fistula, which has only worked 12 times in the past year, and reportedly may be getting a graft for an occluded left side arterial circulation, which has been stented in the past. acute troponin elevation high likelihood of underlying CAD heparin infusion started on 02/17 on 7:51am 02/18, heparin being held aspirin, statin. Most recent echocardiogram on 10/25/2024 with ejection fraction 55-60%, unchanged compared to 01/22/2024 Hold oral bumetanide 1 mg p.o. twice daily Give bumetanide 1 mg IV now, s/p HD Continue metoprolol to tartrate, amlodipine, and aspirin Bumetanide 1 mg p.o. twice daily, will need to be redosed after dialysis today. ESRD on HD (MWF) Patient has dialysis catheter in right chest She has a incompletely functioning fistula in her left upper extremity She reports that she has an appointment with Dr. Guardado, vascular surgery, tomorr ow to address the problem with the fistula, and address for flow in her left thigh which has had stents in the past already. Consult nephrology Dr. Hunt, covering for Dr. Mei Hyperglycemia due to diabetes mellitus- Glucose on admission was 496, then a follow-up with 452, then decreased to 390 after 8 units of regular insulin IV Increased glucoses likely due to eating 15 black cherries later in the day yesterday Check hemoglobin A1c If glucose does not come under control with sliding scale, will need to add long-acting insulin glargine Patient reports that she does not take any medications at home for diabetes PAD, s/p stent Hyperlipidemia- Continue rosuvastatin Chronic pain- Tylenol 650 mg by mouth every 6 hours as needed for mild pain or fever Continue oxycodone 10 mg p.o. every 6 hours as needed moderate pain Morphine sulfate 4 mg IV every 3 hours as needed for severe pain GERD- Continue omeprazole/pantoprazole Notes For Next Care Provider sepsis evaluation consult nephrology hold amlodipine till BP stabilized Admission HPI Per Admitting Provider The patient is a 64-year-old female with a past medical history including ESRD on HD, essential hypertension, HFpEF, diabetes mellitus type 2, anemia, diabetic neuropathy, PAD, GERD, sleep apnea, dyslipidemia, chronic venous insufficiency, and osteoarthritis. The patient presents to the emergency department with reports that she was awoken from sleep by substernal chest pain, that radiated to her left shoulder and left jaw. She took 2 baby aspirin at that time, and called EMS. EMS gave her 4 baby aspirin en route to the hospital, along with nitroglycerin sublingual, and the combination of all completely relieved her pain. In the emergency department in [facility], she has no complaints of chest pain or shortness of breath. She reports that she is due for dialysis today Saturday, and typically receives dialysis Saturday, Saturday and Saturday. She did take all of her medications last evening as directed. [facility] glucose of [facility], which is unusual for her, and upon questioning of dietary issue, reported that she had 15 black cherries last evening. Initial troponin was elevated 26.1, with follow-up pending. Patient reports that she has an appointment to follow-up with vascular surgery Dr. Guardado tomorrow. they will discuss revision of her left upper extremity fistula, which has only worked 12 times in the past year, and reportedly may be getting a graft for an occluded left side arterial circulation, which has been stented in the past. She was then [facility] Discharge Exam VITALS: Reviewed. WEIGHT/BMI reviewed. GEN: Healthy appearing, well-developed, NAD. -Head: NC/AT; -Nose: Normal nares. -Mouth and throat: MMM. Normal gums, mucosa, palate,. Good dentition. NECK: Supple, with no masses. CV: RRR, no m/r/g. +permcath LUNGS: CTAB, no w/r/c. ABD: Soft, NT/ND, NBS, no masses or organomegaly. SKIN: Warm, well perfused. No skin rashes or abnormal lesions. MSK: right leg amputated EXT: left arm fistula NEURO: AAOx3; no tremor; 5/5 strength Discharge Plan Discharge Items Patient Disposition: Transfer Acute Care Hospital Reason For Visit: ESRD ON HD NEEDING DIALYSIS, HFpEF EX, ELEVATED TR Discharge Diagnosis: multivessel CAD myocardial infarct hypotension ESRD on HD diabetes Condition on Discharge: Good Activity: Per Instructions section Lifting: Gradually increase as tolerated Non-emergency contact: Primary Care Provider and Station Supervisor Call non-emergency contact if: you have any medication questions Follow-up/Referrals: Andie Rodrigues DO [Primary Care Provider] - Diet: Carb Consistent or DM2 and Dialysis Renal Addtl Attending Provider Instructions: you will need to see cardiology f/u with vascular surgery continue with statin, work with your primary care doctor about adjusting your statin medication (cholesterol medicine) Pending Studies at Discharge: No Stand-Alone Forms: My [facility] [employer] Skilled Items Patient informed of condition?: Yes DNR: No Discharge Level of Care: Other Communicable Disease: No Discharge Prognosis: Deteriorating Lines: Peripheral IV Urinary Catheter: No Medications and DC Order Prescriptions: New doxycycline hyclate 100 mg tablet 100 mg PO BID 7 Days Qty: 14 0RF Continued (DME) Accu-Chek Guide L1-L2 Ctrl Nancy Solution See Rx Instructions .Route Qty: 1 0RF Rx Instructions: As directed mecobalamin (vitamin B12) 1,000 mcg tablet,disintegrating 1,000 mcg sublingual DAILY Qty: 90 1RF Rx Instructions: place tablet under tongue and allow to dissolve for at least 30 secs before swallowing. trazodone 50 mg tablet 25 mg PO HS Qty: 45 3RF rosuvastatin 40 mg tablet 40 mg PO QAM Qty: 90 3RF metoprolol tartrate 25 mg tablet 25 mg PO DAILY Qty: 90 3RF oxycodone 10 mg tablet 10 mg PO Q6H PRN (Reason: pain) Qty: 120 0RF polyethylene glycol 3350 [Miralax] 17 gram/dose powder 17 g PO DAILY PRN (Reason: Constipation) aspirin [Adult Low Dose Aspirin] 81 mg tablet,delayed release (DR/EC) 81 mg PO DAILY Velphoro 500 mg tablet,chewable 1,000 mg PO TIDWMEAL Rx Instructions: with meals omeprazole 20 mg capsule,delayed release(DR/EC) 20 mg PO DAILY 30 Days Qty: 30 2RF (DME) Prosthetic Socket replacement See Rx Instructions .Route .MEDSUPPLY Qty: 1 0RF Rx Instructions: As directed. Patient states she is being fitted for a new prosthetic. (DME) Socket replacement and supplies See Rx Instructions .Route .MEDSUPPLY Qty: 1 0RF Rx Instructions: As directed. Level K2 ondansetron HCl 4 mg tablet 4 mg PO Q8H PRN (Reason: Nausea And Vomiting) bumetanide 1 mg tablet 1 mg PO BID Held amlodipine 5 mg tablet 5 mg PO DAILY Hold Instructions: Resume on 02/21/25. Discharge Orders: Discharge Order (Routine); Ordered 02/18/25 Ordered By: Kate Pak Admission Data Admit Date/Time: 02/17/25 04:57 Attending Provider: Kate Pak Admit Provider: Stanley Gonzalez Primary Care Provider: Andie Rodrigues Other Providers: Stanley Gonzalez; Moies Hunt; Billy August Hospital Stay Data Consultations 02/17/25 03:26 ED Decision to Admit Stat 02/17/25 05:26 Consult Nephrology Routine 02/17/25 09:17 Consult Cardiology Routine 02/18/25 16:29 Burn CD for patient Stat Procedures Performed Operation Date: 02/18/25 11:00 Actual Procedures p Cineradiography w/Routine Exam - Martin Cr MD p Cath, Left with Cors and Vent - Martin Cr MD s Angio Extremity Unilateral - Martin Cr MD s Ultrasound Vascular Access - Martin Cr MD Diagnostic Imagining Performed 02/18/25 06:44 CL Cath Imgs for PACS use only Routine Pending Results Patient Have Any Pending Studies at Discharge: No Discharge Instructions Given to Patient (Per Discharging Provider) you will need to see cardiology f/u with vascular surgery continue with statin, work with your primary care doctor about adjusting your statin medication (cholesterol medicine) Total Time Total Time Spent Total Time Spent (In Minutes): 75 minutes Coding Level of Care Code 09762 INP/OBS DISCH >30 MIN Diagnoses Chest pain R07.9 Chest pain type: unspecified ESRD on dialysis N18.6; Z99.2 (HFpEF) heart failure with preserved ejection fraction I50.30 PAD (peripheral artery disease) I73.9 Chronic heart failure with preserved ejection fraction (HFpEF) I50.32 Time Spent (min) 75
--- NOTE | 2025-02-19 00:52 | XCELERA ---
[id number] [id number]
[2025-02-19] MEDS ORDERED: SODIUM CHLORIDE 0.9% 1,000 ML IV PRN (07:00)
[2025-02-19] MEDS ORDERED: EPOETIN ALFA 10,000 UNITS/ML VIAL IV ONE (07:00)
--- NOTE | 2025-02-19 22:45 | Electrocardiogram Report ---
Test Reason : Blood Pressure : */* mmHG Vent. Rate : 66 BPM Atrial Rate : 66 BPM P-R Int : 212 ms QRS Dur : 128 ms QT Int : 476 ms P-R-T Axes : 24 -48 -3 degrees QTcB Int : 499 ms Sinus rhythm with 1st degree A-V block Left axis deviation Left bundle branch block Abnormal ECG When compared with ECG of 17-Feb-2025 02:37, No significant change Confirmed by Praveen Andersen ([id number]) on 02/19/2025 10:44:58 PM Referred By: REFERRED SELF Confirmed By: Praveen Andersen
--- NOTE | 2025-02-19 22:47 | Electrocardiogram Report ---
Test Reason : Blood Pressure : */* mmHG Vent. Rate : 63 BPM Atrial Rate : 63 BPM P-R Int : 224 ms QRS Dur : 120 ms QT Int : 482 ms P-R-T Axes : 23 -48 -13 degrees QTcB Int : 493 ms Sinus rhythm with 1st degree A-V block Left axis deviation Left ventricular hypertrophy with QRS widening ( R in aVL , [place] product ) Left bundle branch block Abnormal ECG When compared with ECG of 17-Feb-2025 15:48, No significant change Confirmed by Praveen Andersen ([id number]) on 02/19/2025 10:46:45 PM Referred By: REFERRED SELF Confirmed By: Praveen Andersen
--- NOTE | 2025-02-20 08:50 | Coding Query ---
CONGESTIVE HEART FAILURE To Promote full compliance with coding requirements relating to patient care, physician participation is requested in all cases of high school drafting teacher uncertainty. Please assist us with the following questions. A diagnosis of Congestive Heart Failure is documented in the patient's medical record. To accurately code this diagnosis and to compare patient severity, we ask that you specify the type of heart failure by placing an X within the parenthesis (x). SYSTOLIC HEART FAILURE ( ) Acute ( ) Chronic (x) Acute on Chronic ( ) Rheumatic ( ) Unknown DIASTOLIC HEART FAILURE ( ) Acute ( ) Chronic ( ) Acute on Chronic ( ) Rheumatic ( ) Unknown COMBINED SYSTOLIC AND DIASTOLIC HEART FAILURE ( ) Acute ( ) Chronic ( ) Acute on Chronic ( ) Rheumatic ( ) Unknown Was the CHF Present On Admission? Please check the appropriate box: ( ) Present on Admission ( ) Not Present On Admission ( ) Clinically undetermined Thank you CHICA Austin [facility]ITAL[facility]
--- NOTE | 2025-02-20 08:54 | Coding Query ---
CODING QUERY To promote full compliance with coding requirements relating to patient care, provider participation is requested in all cases of sock mender uncertainty. Please assist us with the question(s) below: Coding Question(s): Pt admitted with chest pain. Cardiac Catheterization done by revealing CAD. Discharge Summary (only place in record) Myocardial Infarction. Please check below the phrase that pertains to the Mycardial Infarction. Thanks for your help. González Kidd [facility] Physician's Response(s): Pt was diagnosed with an MN, Present on Admission ____x Pt did not have an MN Principal Diagnosis: "that condition established after study, to be chiefly responsible for occasioning the admission of the patient to the hospital for care." Co-Existing Principal Diagnosis: "when two or more diagnoses equally meet the criteria for principal diagnosis as determined by the circumstances of admission, diagnostic work up, and/or therapy provided, and the Alphabetic Index, Tabular List, or another coding guideline does not provide sequencing direction, any one of the diagnoses may be sequenced first." "When the physician has documented what appears to be a current diagnosis in the body of the record, but has not included the diagnosis in the final diagnostic statement, the physician should be asked whether the diagnosis should be added." (Source Coding Clinic 2 QTR90. p3-4) MONTSE
== END 2025-02-18 20:15 | disposition short-term general hospital (02) | DRG 286 ==
LOC: SUATTDRO → ED 02:31 → SUATTDRO 04:57 → EDINP 04:57 → 4W 15:01
PROC: CLB.AEU (2025-02-18 11:00)

== ENCOUNTER 2025-05-10 10:33 | Observation (INO) ==
--- NOTE | 2025-05-10 10:53 | Emergency Department Note ---
Impression & Plan Symptomatic anemia, ESRD on hemodialysis ED Provider Note NAME: WENDI DAMON AGE: 64 SEX: F : 1960 ARRIVES VIA: Ambulance INFORMANT: Patient, EMS ED PROVIDER(S): Km Farmer DO CHIEF COMPLAINT: anemia HPI: This is a 64-year-old female with the PMHx of CAD s/p CABG with wound dehiscence, ESRD on hemodialysis MWF, DM2, DLD, OA and GERD presenting to [facility] for further evaluation of anemia. Patient is accompanied by EMS who provide additional history. EMS reports the patient remained hemodynamically stable. They report that she is coming in from dialysis today as she was found to be profoundly anemic. Patient states this been an ongoing issue. She has required blood transfusions in the past. This seems to be worsening since her recent CABG. Patient states she feels weak and fatigued. She states her symptoms are not consistent when she has felt that her kidney function had worsened, fluid overload states or electrolyte derangements. She states that she has been attending dialysis without any issues. She notes that she has not had significant output from her SANKET drains. She does intermittently make urine. No hematuria. Denies hematochezia or melena. No hemoptysis or hematemesis. They deny fever or chills. No cough or congestion. Denies chest pain or palpitations. No shortness of breath. They deny abdominal pain, nausea and vomiting. No urinary complaints. No recent changes in bowel movements. Patient denies recent changes in medications or OTC supplements. Patient offers no other complaints, today. ADDITIONAL HISTORY OBTAINED: Per HPI Chronic Medical/Social Conditions Affecting Care: Per HPI PAST MEDICAL HISTORY: See Below PAST SURGICAL HISTORY: See Below FAMILY HISTORY: See Below SOCIAL HISTORY: See Below HOME MEDICATIONS: See Below ALLERGIES: See Below VITALS: See Below PHYSICAL EXAMINATION: GENERAL: Sitting up in bed, alert, well appearing, well nourished, no distress, non-toxic EYE EXAM: conjunctival pallor. PERRL and EOM's grossly intact. OROPHARYNX: no exudate, no erythema, lips, buccal mucosa, and tongue normal and mucous membranes are moist NECK: supple, no nuchal rigidity, no adenopathy, non-tender LUNGS: Clear to auscultation. Normal chest wall mechanics HEART: no murmurs, regular rate, regular rhythm ABDOMEN: abdomen soft, non-tender, no masses, no rebound or guarding. SANKET drains sternal and epigastric. No output. No surrounding drainage, swelling or erythema. BACK: Back is symmetrical on inspection and there is no deformity, no midline tenderness, no CVA tenderness. SKIN: no rashes and no bruising UPPER EXTREMITIES: upper extremities are grossly normal. LOWER EXTREMITIES: No pitting edema. NEURO EXAM: Normal sensorium, GCS 15, normal speech, no gross weakness of arms, no gross weakness of legs. MEDICAL DECISION MAKING: Differential diagnoses includes but not limited to acute on chronic anemia, hypervolemia, electrolyte derangements, kidney disease In summary, this is a 64 year old female who presented with acute on chronic anemia. Differential as above. Nursing notes and pertinent past medical records reviewed. Vital signs reviewed and the patient is intermittently tachycardic but otherwise afebrile and HDS. History and presentation revealed Recent complicated history of CABG with postoperative complications including wound dehiscence and possible sternal osteomyelitis. Patient was unable to have dialysis today secondary to severe anemia. Physical examination revealed as above. As a result of my initial evaluation, the patient currently resides in [facility] after a CABG in late February for severe coronary artery disease. History is complicated by ESRD on hemodialysis Saturday, Saturday, Saturday. Patient was unable to have dialysis today as her hemoglobin was found to be worsening. It is reported that she had a hemoglobin of 6.0. Patient's SANKET drains have no output at this time. She did have a complicated postoperative course for wound dehiscence. Patient needs further workup for her anemia. Do suspect this is likely acute on chronic but would also consider pericardial effusion. Do feel this is likely a delayed sequela and feel this is less likely. Diagnostics interpreted by me include EKG and cardiac monitoring as listed below: -Cardiac Monitoring: An order was placed for continuous cardiac monitoring. The monitor shows a rate of 90-100s with regular rhythm. -ECG: normal sinus rhythm at a ventricular rate of 88 bpm. Left axis deviation noted. No significant ST segment changes to suggest STEMI. Intervals are within normal limits. Patient completed laboratory studies and imaging. Results independently interpreted by me are hemoglobin is 6.0 today. This is supposedly downtrended from 6.4. Unclear what her baseline is. Last hemoglobin on file was prior to her CABG. Minimal leukocytosis. She has no significant acidosis on VBG. The patient was managed with 2 units of packed red blood cells. Given the patient's history of ESRD, transfusions will be run slowly. I did reach out to nephrology. Nephrology is able to perform transfusions during dialysis and will arrange this for this afternoon. Nonetheless, I do feel the patient would benefit from admission for close monitoring given ongoing severe anemia that it has failed to improve. She is symptomatic at this time but otherwise hemodynamically stable. Ultimately, the decision was made to admit the patient for acute on chronic anemia in the setting of ESRD. I discussed the case with the hospitalist service via telephone/TigerText and they are agreeable to admit the patient to their services. Based on the above, including the patient's age, coexisting illnesses, labs, imaging, and exam findings the decision to treat as an inpatient. I discussed the patient with the hospitalist team who recommended admission to their services. They received the medications, treatments, interventions indicated above and their condition remained guarded. I discussed my findings with the patient and their family and they understand and agree with the treatment plan. All patient / family questions were answered to their satisfaction. Consults/Care Managements Discussions: Per [facility] ER treatment provided: See above Procedures:none Critical Care: I have personally spent 35 minutes of critical care time in direct management of this patient. This includes bedside care, interpretation of diagnostic studies, and testing, discussion with consultants, patient, and family members, and other require inpatient management activities. This 35 minutes is in excess of all separately billable procedures. The chart was completed utilizing [employer] Speech voice recognition software. Grammatical errors, random word insertions, pronoun errors, and incomplete sentences are an occasional consequence of this system due to software limitations, ambient noise, and hardware issues. Any formal questions or concerns about the content, text, or information contained within the body of this dictation should be directly addressed to the physician for clarification.She Past Med/Surg History Problem List (Updated 05/11/25 @ 16:44 by Km Faremr DO) ESRD on hemodialysis (Acute) Symptomatic anemia (Acute) Sternal osteomyelitis S/P CABG x 3 ESRD on dialysis Weakness generalized Severe anemia CAD (coronary artery disease) Chest pain (Acute) Leukocytosis (Acute) Chronic pain Essential hypertension Diabetes mellitus type 2 with complications Orthopnea Anemia (Acute) Renal hematoma, left Proteinuria Diabetic neuropathy Irregular bowel habits GERD (gastroesophageal reflux disease) (Chronic) Chronic constipation Vitamin D deficiency 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) Charcot's arthropathy Sleep apnea no cpap Dyslipidemia Chronic back pain Chronic venous insufficiency (Chronic) Osteoarthritis (Chronic) Medical History Pleural effusion on right (HFpEF) heart failure with preserved ejection fraction Chronic heart failure with preserved ejection fraction (HFpEF) PAD (peripheral artery disease) Hypervolemia Acute kidney injury superimposed on chronic kidney disease Acute kidney failure Chronic kidney disease, stage 4 (severe) Recurrent pleural effusion on right Chronic osteomyelitis Hypertension Non-traumatic rhabdomyolysis (02/2021) Postmenopausal bleeding Anemia of chronic disease Diabetic ulcer of left great toe PAD (peripheral artery disease) S/P right lower extremity angiogram, mechanical thrombectomy of pre-existing superficial femoral artery stent usinh [employer] [place] Omni catheter, balloon angioplasty of the superficial femoral artery stent using 5 X 200 mm [place] balloon, balloon angioplasty of the superficial femoral artery 6 X 250 mm IN.PACT drug coated balloon, stent angioplasty of the superficial femoral artery using 5 X 150 mm INOVA bare metal stent, and debridement of the right lateral foot on 11/14/[address] Lomeli. S/P bilateral SFA stenting Morbid obesity BMI 45.7 Clostridium difficile colitis history (~11/2016) -- treated no problems since. Charcot's joint of foot due to diabetes Surgical History History of vascular surgery (04/20/22) L SFA Angio Extremity Unilateral Fem Pop Balloon Atherectomy History of bilateral cataract extraction Status post amputation of toe of right foot (11/14/20) amputation metatarsal w/ toe, R S/P vascular surgery (11/2020) R fem-pop [id number] w/ stent and angioplasty S/P femoral-popliteal bypass surgery S/P angioplasty (10/2019) RT SFA atherectomy/angioplasty w/ MARSHA S/P angioplasty (06/2019) LT SFA angioplastly with MARSHA History of cholecystectomy History of tooth extraction History of esophagogastroduodenoscopy (EGD) S/P epidural steroid injection H/O vascular surgery (01/2020) LT SFA atherectomy, MARSHA w/ supera stenting History of lumpectomy of right breast benign Status post tubal ligation Status post tonsillectomy Family History Mother Rheumatoid arthritis Father Emphysema of lung Peripheral artery disease Aunt Breast cancer MOMS SIDE Colorectal cancer MOMS SIDE Myocardial infarction MOMS SIDE Brother Prostate cancer Sister COPD (chronic obstructive pulmonary disease) Other No family history of adverse response to anesthesia Denies family history of Ovarian cancer CAD (coronary atherosclerotic disease) Social History Smoking Status: Never smoker Tobacco Type: Cigarettes Age Started Using Tobacco: 9; Age Quit Using Tobacco: 54; packs per day: 2; Second Hand Exposure: No; Do You Dip or Chew Tobacco: No; Tobacco Cessation Education Requested by Patient: No Hx Alcohol Use: No Hx Substance Use: No Preferred Language: Arabic Communication Ability: Effective Visual Impairment: No Limitations Hearing Ability: Normal Celery Wrapper Required: No Beliefs That Will Affect Care: None marital status: Current Living Situation: Rehab [facility] current occupational status: disabled How many Children do You have: 1 Other Information That Helps Us Care for You: No other: previous [facility] [employer] Feels Safe at Home: Yes Safety Concerns: Feels Safe At This Time Childhood Exposure to Second-Hand Smoke: Yes (father was a heavy smoker ) Diet: regular Diet Comment: regular caffeine: Yes (very little) during the past year weight has: remained stable Dental Care, Regularly: No Physical Activity Frequency: Does not Exercise Seatbelt Use: always Sunscreen Use: No Assistive Devices: Cane, Prosthesis, Walker and Wheelchair Allergies Allergies Allergy/AdvReac Type Severity Reaction Status Date / Time daptomycin Allergy Severe rhabdomyoly Verified 03/30/25 15:03 sis amoxicillin Allergy Intermediate HIVES & N/V Verified 03/30/25 15:03 clavulanic acid Allergy Intermediate HIVES & N/V Verified 03/30/25 15:03 vancomycin Allergy Intermediate pruritus Verified 03/30/25 15:03 sulfamethoxazole AdvReac Severe renal Verified 03/30/25 15:03 [From Bactrim] failure trimethoprim [From Bactrim] AdvReac Severe renal Verified 03/30/25 15:03 failure lisinopril AdvReac Intermediate NAUSEA/VOMI Verified 03/30/25 15:03 TING omeprazole AdvReac Intermediate Nausea Verified 03/30/25 15:03 Home Meds Home Medications Medication Instructions Recorded Confirmed polyethylene glycol 3350 17 17 g PO DAILY PRN Constipation 12/13/21 05/10/25 gram/dose oral powder (Miralax) aspirin 81 mg tablet,delayed 81 mg PO DAILY 11/15/22 05/10/25 release (Adult Low Dose Aspirin) acetaminophen 500 mg tablet 1,000 mg PO Q8H PRN PPAIN 03/29/25 05/10/25 (Tylenol Extra Strength) clopidogrel 75 mg tablet (Plavix) 75 mg PO DAILY 03/29/25 05/10/25 insulin aspart U-100 100 unit/mL 6 unit subcut .with meals 03/29/25 05/10/25 subcutaneous solution pantoprazole 40 mg tablet,delayed 40 mg PO DAILY 03/29/25 05/10/25 release bumetanide 1 mg tablet 0 mg PO DIRECTED 03/30/25 05/10/25 gabapentin 100 mg capsule 100 mg PO QAM 03/30/25 05/10/25 Lactobacillus acidophilus 1 tab PO DAILY 05/10/25 05/10/25 atorvastatin 80 mg tablet 80 mg PO HS 05/10/25 05/10/25 cefepime 2 gram solution for 2 g IV [id number] 05/10/25 05/10/25 injection cyanocobalamin (vitamin B-12) 500 1,000 mcg PO DAILY 05/10/25 05/10/25 mcg tablet docusate sodium 100 mg tablet 100 mg PO BID 05/10/25 05/10/25 folic acid 0.8 mg capsule 0.4 mg PO DAILY 05/10/25 05/10/25 heparin (porcine) 5,000 unit/mL 5,000 unit subcut BID 05/10/25 05/10/25 injection solution linezolid 600 mg tablet 300 mg PO BID 05/10/25 05/10/25 loperamide 2 mg capsule 2 mg PO Q8H PRN Diarrhea 05/10/25 05/10/25 magnesium hydroxide 400 mg/5 mL 15 ml PO DAILY PRN Constipation 05/10/25 05/10/25 oral suspension (Milk of Magnesia) melatonin 5 mg tablet 5 mg PO HS PRN Insomnia 05/10/25 05/10/25 metoprolol tartrate 25 mg tablet 12.5 mg PO BID 05/10/25 05/10/25 miconazole nitrate 2 % topical 1 applic topical BID 05/10/25 05/10/25 powder oxycodone 10 mg tablet 10 mg PO Q4H PRN pain 05/10/25 05/10/25 tuberculin PPD 5 tub. unit/0.1 mL 0 tb unit intradermal DIRECTED 05/10/25 05/10/25 intradermal injection solution (Tubersol) Previous Rx's Medication Instructions Recorded blood glucose control high and low #1 ea 04/03/23 solution (Accu-Chek Guide L1-L2 Control Solution) trazodone 50 mg tablet 25 mg (1/2 x 50 mg) PO HS #45 tabs 08/28/24 Prosthetic Socket replacement #1 ea 01/01/25 Socket replacement and supplies #1 ea 01/01/25 Results & Data (ED) Vital Signs Vital Signs - 24 hr 05/10/25 16:30 Pulse Rate 88 Blood Pressure 101/45 L Blood Pressure Position Semi-fowlers Laboratory Data 05/11/25 06:09 05/11/25 06:09 Lab Results 05/10/25 05/10/25 05/10/25 Range/Units 10:44 11:08 11:10 WBC 10.95 H (4.8-10.8) K/ul RBC 1.90 L (4.20-5.40) M/uL Hgb 6.0 L* (12.0-16.0) g/dL Hct 17.6 L* (37.0-47.0) % MCV 92.6 (80.0-100.0) fL MCH 31.6 (25.0-34.0) pg MCHC 34.1 (32.0-36.0) g/dL RDW Std Deviation 53.9 H (36.4-46.3) fL RDW Coeff of Adelina 17.0 H (11.5-14.5) % Plt Count 99 L (130-400) K/uL MPV 11.0 (9.4-12.4) fL Immature Gran % (Auto) 1.3 % Neut % (Auto) 78.7 % Lymph % (Auto) 8.3 % [place] % (Auto) 8.8 % Eos % (Auto) 2.5 % Baso % (Auto) 0.4 % Neut # (Auto) 8.63 H (1.40-6.50) K/uL Lymph # (Auto) 0.91 L (1.20-3.40) K/uL [place] # (Auto) 0.96 H (0.11-0.59) K/uL Eos # (Auto) 0.27 (0.00-0.50) K/uL Baso # (Auto) 0.04 (0.00-0.20) K/uL Immature Gran # (Auto) 0.14 (0.01-0.20) K/uL Absolute Nucleated RBC 0.03 (0.00-0.12) K/uL Nucleated RBC % (auto) 0.3 % Platelet Estimate Decreased L (Normal) Polychromasia 1+ PT 12.8 H (9.0-12.0) Seconds INR 1.2 H (0.9-1.1) APTT 117 H* (21-31) Seconds PTT Ratio 4.3 VBG pH 7.40 (7.36-7.41) VBG pCO2 41 (38-50) mmHg VBG pO2 30 mmHg VBG HCO3 25 mmol/L VBG O2 Saturation < 60.0 % VBG Base Excess 0.6 mEq/L Sodium 131 L (136-145) mmol/L Potassium 4.9 (3.5-5.1) mmol/L Chloride 94 L (98-107) mmol/L Carbon Dioxide 26 (21-32) mmol/L Anion Gap 11 (3-11) BUN 51 H (6-23) mg/dl Creatinine 6.01 H* (0.6-1.2) mg/dl Est Cr Clr Drug Dosing 10.7 ml/min eGFR 7.27 BUN/Creatinine Ratio 8.5 L (10-20) Glucose 131 H (70-99(Fasting)) mg/dl Calcium 8.0 L (8.6-10.3) mg/dl Phosphorus 3.9 (2.5-4.9) mg/dl Magnesium 1.7 (1.7-2.4) mg/dl Iron 108 (35-150) mcg/dl TIBC 175 L (250-450) mcg/dl Transferrin 125 L (200-360) mg/dl Transferrin % Sat 62 H (15-50) % Ferritin 1043.2 H (8-388) ng/ml Total Bilirubin 0.4 (0.2-1.0) mg/dl AST 12 L (13-39) U/L ALT 7 (7-52) U/L Alkaline Phosphatase 140 H (34-104) U/L Troponin I High Sens 18.8 H (0-14) pg/ml Total Protein 5.5 L (6.0-8.3) gm/dl Albumin 2.5 L (3.4-5.0) gm/dl Globulin 3.0 (2.5-4.0) gm/dl Albumin/Globulin Ratio 0.8 L (0.9-2) Lipase 33 (11-82) U/L Vitamin B12 > 1500 H (180-914) pg/ml Blood Type O Negative Antibody Screen NEGATIVE Crossmatch See Detail Administered Medications Acetaminophen (Acetaminophen 325 Mg Tab) 650 mg PO Q4H PRN PRN Reason: Pain 1-5 or Fever Stop: 06/09/25 18:30 Last Admin: 05/11/25 11:18 Dose: 650 mg Documented By: Admin: 05/10/25 18:52 Dose: 650 mg Documented By: CHELY Aspirin (Aspirin 81 Mg Ectab) 81 mg PO DAILY [facility] Stop: 06/10/25 08:59 Last Admin: 05/11/25 07:51 Dose: 81 mg Documented By: CINTHIA Clopidogrel Bisulfate (Clopidogrel Bisulfate 75 Mg Tab) 75 mg PO [facility]AWW [facility] Stop: 06/10/25 11:59 Last Admin: 05/11/25 12:09 Dose: 75 mg Documented By: CINTHIA Gabapentin (Gabapentin 100 Mg Cap) 100 mg PO [facility] Stop: 06/09/25 20:59 Last Admin: 05/10/25 21:36 Dose: 100 mg Documented By: JANE Cefepime HCl (Maxipime 2000mg) 1,000 mg in 10 mls @ 5 mls/min IV Q24H [facility]; Protocol Stop: 06/21/25 16:59 Last Admin: 05/10/25 21:34 Dose: 5 mls/min Documented By: JANE Insulin Aspart (Insulin Aspart Per Unit Charge) 0 units SQ AC [facility] Stop: 06/09/25 19:59 Last Admin: 05/11/25 12:08 Dose: 3 units Documented By: CINTHIA Co-signed By: ROSANNE Admin: 05/11/25 08:34 Dose: 4 units Documented By: CINTHIA Co-signed By: ROSANNE Admin: 05/10/25 21:05 Dose: Not Given Documented By: JANE Lidocaine (Lidocaine 5% 1 Patch) 1 patch TD QAM [facility] Stop: 06/10/25 10:59 Last Admin: 05/11/25 11:12 Dose: 1 patch Documented By: CINTHIA Linezolid (Linezolid 600 Mg Tab) 300 mg PO BID PER Stop: 06/21/25 20:59 Last Admin: 05/11/25 07:52 Dose: 300 mg Documented By: Admin: 05/10/25 21:36 Dose: 300 mg Documented By: JANE Pantoprazole Sodium (Pantoprazole 40 Mg Tab) 40 mg PO DAILY [facility] Stop: 06/10/25 08:59 Last Admin: 05/11/25 07:51 Dose: 40 mg Documented By: CINTHIA Discontinued Medications Epoetin Ian (Epoetin Ian 20,000 Units/Ml Vial) 20,000 units IV ONE ONE Stop: 05/10/25 12:10 Last Admin: 05/10/25 17:14 Dose: 20,000 units Documented By: EVARISTO Heparin Sodium (Porcine) (Heparin Sod (Porcine) 1000 Unit/Ml) 2,000 units IV ONE ONE Stop: 05/10/25 12:10 Last Admin: 05/10/25 16:06 Dose: Not Given Documented By: CC Bumetanide 1 mg/ Syringe 4 mls @ 4 mls/min IV ONE ONE Stop: 05/10/25 11:17 Last Admin: 05/10/25 11:57 Dose: 4 mls/min Documented By: TAMMY Insulin Aspart (Insulin Aspart Per Unit Charge) 0 units SQ AC PER Stop: 06/09/25 18:30 Last Admin: 05/10/25 21:07 Dose: Not Given Documented By: JANE Nitroglycerin (Nitroglycerin 2% Ointment 30gm Tube) 1 inch EXT Q6 PER Stop: 06/09/25 18:30 Last Admin: 05/10/25 21:07 Dose: Not Given Documented By: JANE Nitroglycerin (Nitroglycerin 2% Ointment 30gm Tube) 1 inch EXT Q6H [facility] Stop: 06/09/25 19:59 Last Admin: 05/11/25 01:54 Dose: Not Given Documented By: Admin: 05/10/25 21:35 Dose: Not Given Documented By: JANE Oxycodone HCl (Oxycodone Hcl Ir 5 Mg Tab (Immediate Release)) 10 mg PO Q6H PRN PRN Reason: pain 6-10 Stop: 05/24/25 18:30 Last Admin: 05/11/25 14:07 Dose: 10 mg Documented By: Admin: 05/11/25 07:50 Dose: 10 mg Documented By: Admin: 05/10/25 18:52 Dose: 10 mg Documented By: [facility] Imaging Data Radiologist's Impression: Chest X-Ray 05/10/25 10:47 XR chest 1V portable CLINICAL HISTORY: Eval for fluid COMPARISON STUDY: 02/17/2025 FINDINGS: The right-sided dual-lumen central venous catheter remains unchanged in position with its tip projected over the right atrium. There is been interval placement of a left subclavian central venous catheter. The tip also projects over the left atrium. There is no pneumothorax. The heart remains enlarged. There are bilateral pleural effusions. There is no current evidence of pulmonary edema. Since the prior study the patient has developed left basilar atelectasis/consolidation. A catheter/wire projects of the left hemithorax terminating at the level left hilum. This is of uncertain etiology. IMPRESSION: 1. Interval insertion of a left subclavian central venous catheter the tip which projects to the right atrium 2. Visualization of a catheter/wire jugular the left hemithorax with its tip at the level the left hilum. This is of uncertain etiology 3. Stable right pleural effusion 4. Interval development of a left pleural effusion with associated left lower lobe atelectasis/consolidation 5. No pneumothorax identified ACT 112: Negative or not required by law. Electronically signed by: Sav Hdz M.D. 05/10/2025 11:12 AM Discharge Plan Visit Data Chief Complaint: Abnormal Labs/Diagnostic Testing Stated Complaint: ABNORMAL LABS ED Provider: Km Farmer Discharge Problem: Symptomatic anemia, ESRD on hemodialysis Patient Disposition: Admitted As Inpatient Condition: Serious Discharge Instructions Interventions: ED Discharge Assessment Last Done: 05/10/25 18:07
--- NOTE | 2025-05-10 11:13 | XRay Report ---
XR chest 1V portable CLINICAL HISTORY: Eval for fluid COMPARISON STUDY: 02/17/2025 FINDINGS: The right-sided dual-lumen central venous catheter remains unchanged in position with its t ip projected over the right atrium. There is been interval placement of a left subclavian central papi ous catheter. The tip also projects over the left atrium. There is no pneumothorax. The heart remains enlarged. There are bilateral pleural effusions. There is no current evidence of pulmonary edema. Si nce the prior study the patient has developed left basilar atelectasis/consolidation. A catheter/wire projects of the left hemithorax terminating at the level left hilum. This is of uncertain etiology. IMPRESSION: 1. Interval insertion of a left subclavian central venous catheter the tip which projects to the righ t atrium 2. Visualization of a catheter/wire jugular the left hemithorax with its tip at the level the left hi lum. This is of uncertain etiology 3. Stable right pleural effusion 4. Interval development of a left pleural effusion with associated left lower lobe atelectasis/consol idation 5. No pneumothorax identified ACT 112: Negative or not required by law. Electronically signed by: Sav Hdz M.D. 05/10/2025 11:12 AM
[2025-05-10] MEDS ORDERED: SODIUM CHLORIDE 0.9% 100 ML IV PRN (11:16)
[2025-05-10 11:17] LABS: Hematocrit (blood only) 17.6 % (37.0-47.0); Hemoglobin 6.0 g/dL (12.0-16.0); White Blood Count 10.95 K/ul (4.8-10.8)
[2025-05-10 11:18] LABS: Base Excess VBG 0.6 mEq/L; HCO3 VBG 25 mmol/L; Oxygen Saturation VBG < 60.0 %; PCO2 VBG 41 mmHg (38-50); PO2 VBG 30 mmHg; pH VBG 7.40 (7.36-7.41)
[2025-05-10 11:29] LABS: Alanine Aminotransferase 7.0 U/L (7-52); Albumin Globulin Ratio 0.8 (0.9-2); Albumin Level 2.5 gm/dl (3.4-5.0); Alkaline Phosphatase 140.0 U/L (34-104); Anion Gap 11.0 (3-11); Bilirubin,Total 0.4 mg/dl (0.2-1.0); Blood Urea Nitrogen 51.0 mg/dl (6-23); Calcium 8.0 mg/dl (8.6-10.3); Carbon Dioxide 26.0 mmol/L (21-32); Chloride 94.0 mmol/L (98-107); Creatinine Clr Calc Pharmacy 10.7 ml/min; Globulin 3.0 gm/dl (2.5-4.0); Glucose 131.0 mg/dl (70-99(Fasting)); Lipase 33.0 U/L (11-82); Magnesium 1.7 mg/dl (1.7-2.4); Potassium 4.9 mmol/L (3.5-5.1); Sodium 131.0 mmol/L (136-145); Total Protein 5.5 gm/dl (6.0-8.3)
[2025-05-10 11:31] LABS: Immature Granulocytes # (auto) 0.14 K/uL (0.01-0.20); Immature Granulocytes % (auto) 1.3 %; Mean Corpuscular Hemoglobin 31.6 pg (25.0-34.0); Mean Corpuscular Volume 92.6 fL (80.0-100.0); Platelet Count 99 K/uL (130-400); Polychromasia 1+; RDW Standard Deviation 53.9 fL (36.4-46.3); Red Blood Count 1.90 M/uL (4.20-5.40)
[2025-05-10 11:46] LABS: INR 1.2 (0.9-1.1); Prothrombin Time 12.8 Seconds (9.0-12.0)
[2025-05-10 11:53] LABS: Partial Thromboplastin Time 117 Seconds (21-31)
[2025-05-10] MEDS: BUMETANIDE 1 MG in SYRINGE 0 ML IV ONE (11:57)
[2025-05-10] MEDS ORDERED: SODIUM CHLORIDE 0.9% 1,000 ML IV PRN (12:09)
--- NOTE | 2025-05-10 12:18 | Nephrology Consultation ---
Date of Consultation May 10, 2025 Assessment & Plan (1) ESRD on dialysis: * Will provide HD today to maintain patient's MWF schedule and provide 2 units PRBC during treatment * Outpatient HD orders: MWF 3.5-hour FxCorAL 80 2K 2.5 Ca 1.0 Mg Na 135 HCO3 37 EDW 105kg heparin 1000 unit bolus * Monitor daily BMP, CBC (2) Severe anemia: * Clinically suspect REID resistance due to chronic inflammation * Discussed w/ primary service. Will provide HD and transfuse 2 units PRBC during HD (3) Sternal osteomyelitis: * IV cefepime and linezolid as per primary service (4) S/P CABG x 3: * Elevated troponin on admission c/w ESKD-D * Currently no angina (5) Essential hypertension: * BP acceptable. Will monitor (6) Diabetes mellitus type 2 with complications: (7) Status post below knee amputation of right lower extremity: History of Present Illness Reason for Consultation: ESKD-D History of Present Illness Mrs. Simpson is a 64-year-old white female who is seen at the request of the [facility] EMD physician to provide inpatient HD and assist with medical management. Information for the HPI is obtained from direct patient interview and review of the EMR. HPI is summarized as follows: Ms. Simpson has ESKD due to DKD and hypertensive nephrosclerosis. In August 2023 she underwent [place] kidney biopsy at [facility]. Unfortunately this was complicated by bleeding into the renal capsule and progressive renal dysfunction. She subsequently was started on hemodialysis. Mrs. Simpson currently dialyzes at [facility] under the care of of Dr. Mei. Her AVF is thrombosed and she dialyzes via an IJ THC. Her current dialysis prescription is: MWF 3.5-hour FxCorAL 80 2K 2.5 Ca 1.0 Mg Na 135 HCO3 37 EDW 105kg heparin 1000 unit bolus. Mrs. Simpson has a > 40 pack year smoking history, severe PAD s/p R BKA and ASCVD. In 03/04 she suffered AMI and was transferred to [facility] for emergency CABG x3. She was readmitted to [facility] 04/02 with sternal osteomyelitis and dehiscence of the sternal incision. She has a CVC in place for assisted antibiotic therapy. Mrs. Simpson reports that she was contacted by the dialysis unit this morning and notified of a progressive drop in her Hgb from 8.6 (04/03) to 6.0 (05/10/25). EMD evaluation was advised. Mrs. Simpson currently denies overt blood loss, angina or dyspnea. She remains on antibiotic therapy due to her sternal wound. Allergies Allergy/AdvReac Type Severity Reaction Status Date / Time daptomycin Allergy Severe rhabdomyoly Verified 03/30/25 15:03 sis amoxicillin Allergy Intermediate HIVES & N/V Verified 03/30/25 15:03 clavulanic acid Allergy Intermediate HIVES & N/V Verified 03/30/25 15:03 vancomycin Allergy Intermediate pruritus Verified 03/30/25 15:03 sulfamethoxazole AdvReac Severe renal Verified 03/30/25 15:03 [From Bactrim] failure trimethoprim [From Bactrim] AdvReac Severe renal Verified 03/30/25 15:03 failure lisinopril AdvReac Intermediate NAUSEA/VOMI Verified 03/30/25 15:03 TING omeprazole AdvReac Intermediate Nausea Verified 03/30/25 15:03 Home Medications Medication Instructions Recorded Confirmed Type polyethylene glycol 3350 17 17 g PO DAILY PRN Constipation 12/13/21 05/10/25 History gram/dose oral powder (Miralax) aspirin 81 mg tablet,delayed 81 mg PO DAILY 11/15/22 05/10/25 History release (Adult Low Dose Aspirin) blood glucose control high and low #1 ea 04/03/23 03/30/25 Rx solution (Accu-Chek Guide L1-L2 Control Solution) trazodone 50 mg tablet 25 mg (1/2 x 50 mg) PO HS #45 tabs 08/28/24 05/10/25 Rx Prosthetic Socket replacement #1 ea 01/01/25 03/30/25 Rx Socket replacement and supplies #1 ea 01/01/25 03/30/25 Rx acetaminophen 500 mg tablet 1,000 mg PO Q8H PRN PPAIN 03/29/25 05/10/25 History (Tylenol Extra Strength) clopidogrel 75 mg tablet (Plavix) 75 mg PO DAILY 03/29/25 05/10/25 History insulin aspart U-100 100 unit/mL 6 unit subcut .with meals 03/29/25 05/10/25 History subcutaneous solution pantoprazole 40 mg tablet,delayed 40 mg PO DAILY 03/29/25 05/10/25 History release bumetanide 1 mg tablet 0 mg PO DIRECTED 03/30/25 05/10/25 History gabapentin 100 mg capsule 100 mg PO QAM 03/30/25 05/10/25 History Lactobacillus acidophilus 1 tab PO DAILY 05/10/25 05/10/25 History atorvastatin 80 mg tablet 80 mg PO HS 05/10/25 05/10/25 History cefepime 2 gram solution for 2 g IV 3XWK 05/10/25 05/10/25 History injection cyanocobalamin (vitamin B-12) 500 1,000 mcg PO DAILY 05/10/25 05/10/25 History mcg tablet docusate sodium 100 mg tablet 100 mg PO BID 05/10/25 05/10/25 History folic acid 0.8 mg capsule 0.4 mg PO DAILY 05/10/25 05/10/25 History heparin (porcine) 5,000 unit/mL 5,000 unit subcut BID 05/10/25 05/10/25 History injection solution linezolid 600 mg tablet 300 mg PO BID 05/10/25 05/10/25 History loperamide 2 mg capsule 2 mg PO Q8H PRN Diarrhea 05/10/25 05/10/25 History magnesium hydroxide 400 mg/5 mL 15 ml PO DAILY PRN Constipation 05/10/25 05/10/25 History oral suspension (Milk of Magnesia) melatonin 5 mg tablet 5 mg PO HS PRN Insomnia 05/10/25 05/10/25 History metoprolol tartrate 25 mg tablet 12.5 mg PO BID 05/10/25 05/10/25 History miconazole nitrate 2 % topical 1 applic topical BID 05/10/25 05/10/25 History powder oxycodone 10 mg tablet 10 mg PO Q4H PRN pain 05/10/25 05/10/25 History tuberculin PPD 5 tub. unit/0.1 mL 0 tb unit intradermal DIRECTED 05/10/25 05/10/25 History intradermal injection solution (Tubersol) Patient History Medical History Pleural effusion on right (HFpEF) heart failure with preserved ejection fraction Chronic heart failure with preserved ejection fraction (HFpEF) PAD (peripheral artery disease) Hypervolemia Acute kidney injury superimposed on chronic kidney disease Acute kidney failure Chronic kidney disease, stage 4 (severe) Recurrent pleural effusion on right Chronic osteomyelitis Hypertension Non-traumatic rhabdomyolysis (02/2021) Postmenopausal bleeding Anemia of chronic disease Diabetic ulcer of left great toe PAD (peripheral artery disease) S/P right lower extremity angiogram, mechanical thrombectomy of pre-existing superficial femoral artery stent inana m Gonzalezjet [place] Omni catheter, balloon angioplasty of the superficial femoral artery stent using 5 X 200 mm Craig balloon, balloon angioplasty of the superficial femoral artery 6 X 250 mm IN.PACT drug coated balloon, stent angioplasty of the superficial femoral artery using 5 X 150 mm INOVA bare metal stent, and debridement of the right lateral foot on 11/14/[address] Lomeli. S/P bilateral SFA stenting Morbid obesity BMI 45.7 Clostridium difficile colitis history (~11/2016) -- treated no problems since. Charcot's joint of foot due to diabetes Surgical History History of vascular surgery (04/20/22) L SFA Angio Extremity Unilateral Fem Pop Balloon Atherectomy History of bilateral cataract extraction Status post amputation of toe of right foot (11/14/20) amputation metatarsal w/ toe, R S/P vascular surgery (11/2020) R fem-pop [id number] w/ stent and angioplasty S/P femoral-popliteal bypass surgery S/P angioplasty (10/2019) RT SFA atherectomy/angioplasty w/ MARSHA S/P angioplasty (06/2019) LT SFA angioplastly with MARSHA History of cholecystectomy History of tooth extraction History of esophagogastroduodenoscopy (EGD) S/P epidural steroid injection H/O vascular surgery (01/2020) LT SFA atherectomy, MARSHA w/ supera stenting History of lumpectomy of right breast benign Status post tubal ligation Status post tonsillectomy Family History Mother Rheumatoid arthritis Father Emphysema of lung Peripheral artery disease Aunt Breast cancer MOMS SIDE Colorectal cancer MOMS SIDE Myocardial infarction MOMS SIDE Brother Prostate cancer Sister COPD (chronic obstructive pulmonary disease) Other No family history of adverse response to anesthesia Denies family history of Ovarian cancer CAD (coronary atherosclerotic disease) Social History Smoking Status: Never smoker Tobacco Type: Cigarettes Age Started Using Tobacco: 9; Age Quit Using Tobacco: 54; packs per day: 2; Second Hand Exposure: No; Do You Dip or Chew Tobacco: No; Hx Alcohol Use: No Hx Substance Use: No Preferred Language: Prydeinig Communication Ability: Effective Visual Impairment: No Limitations Hearing Ability: Normal 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 Beliefs That Will Affect Care: None marital status: Current Living Situation: Family Current Living Situation Comment: lives with and son current occupational status: disabled How many Children do You have: 1 other: previous worked at [email or web address] Feels Safe at Home: Yes Childhood Exposure to Second-Hand Smoke: Yes (father was a heavy smoker ) Diet: regular Diet Comment: regular caffeine: Yes (very little) during the past year weight has: remained stable Dental Care, Regularly: No Physical Activity Frequency: Does not Exercise Seatbelt Use: always Sunscreen Use: No Assistive Devices: Cane, Walker and Wheelchair Review of Systems Constitutional: no fever Eyes: no problem reported Ear, Nose, Mouth, Throat: no problem reported Respiratory: no cough and no dyspnea Cardiovascular: no chest pain Gastrointestinal: no abdominal pain, no nausea, no vomiting and no diarrhea/loose stools Integumentary: no rash Neurologic: no problem reported Physical Exam Constitutional: not in distress Eyes: PERRL, conjunctivae normal, anicteric sclerae ENMT: external ear and nose normal, oropharynx normal Neck: trachea midline, no thyromegaly Respiratory: normal respiratory effort, lungs clear to auscultation Cardiovascular: RRR, no murmur, no edema Dressing in place over sternal wound L IJ single lumen CVC in place R IJ TCC in place L arm AVF thrombosed Gastrointestinal (Abdomen): normal bowel sounds, soft, nontender, no hepatosplenomegaly Musculoskeletal: Extremities: no cyanosis and no clubbing Skin: no rashes, warm and dry Neurologic: no focal motor deficits Results & Data Vital Signs (Past 12 Hours) Vital Signs Temp Pulse Pulse Resp BP Pulse Ox O2 Del Method 05/10/25 12:08 90 16 05/10/25 10:33 90 32 H 95 Room Air 05/10/25 10:33 36.8 C 90 32 H 124/61 95 Room Air Laboratory Results Laboratory Results WBC 10.95 K/ul (4.8-10.8) H 05/10/25 10:44 RBC 1.90 M/uL (4.20-5.40) L 05/10/25 10:44 Hgb 6.0 g/dL (12.0-16.0) L* 05/10/25 10:44 Hct 17.6 % (37.0-47.0) L* 05/10/25 10:44 MCV 92.6 fL (80.0-100.0) 05/10/25 10:44 MCH 31.6 pg (25.0-34.0) 05/10/25 10:44 MCHC 34.1 g/dL (32.0-36.0) 05/10/25 10:44 RDW Std Deviation 53.9 fL (36.4-46.3) H 05/10/25 10:44 RDW Coeff of Adelina 17.0 % (11.5-14.5) H 05/10/25 10:44 Plt Count 99 K/uL (130-400) L 05/10/25 10:44 MPV 11.0 fL (9.4-12.4) 05/10/25 10:44 Immature Gran % (Auto) 1.3 % 05/10/25 10:44 Neut % (Auto) 78.7 % 05/10/25 10:44 Lymph % (Auto) 8.3 % 05/10/25 10:44 Hardeman % (Auto) 8.8 % 05/10/25 10:44 Eos % (Auto) 2.5 % 05/10/25 10:44 Baso % (Auto) 0.4 % 05/10/25 10:44 Neut # (Auto) 8.63 K/uL (1.40-6.50) H 05/10/25 10:44 Lymph # (Auto) 0.91 K/uL (1.20-3.40) L 05/10/25 10:44 Hardeman # (Auto) 0.96 K/uL (0.11-0.59) H 05/10/25 10:44 Eos # (Auto) 0.27 K/uL (0.00-0.50) 05/10/25 10:44 Baso # (Auto) 0.04 K/uL (0.00-0.20) 05/10/25 10:44 Immature Gran # (Auto) 0.14 K/uL (0.01-0.20) 05/10/25 10:44 Absolute Nucleated RBC 0.03 K/uL (0.00-0.12) 05/10/25 10:44 Nucleated RBC % (auto) 0.3 % 05/10/25 10:44 Platelet Estimate Decreased (Normal) L 05/10/25 10:44 Polychromasia 1+ 05/10/25 10:44 PT 12.8 Seconds (9.0-12.0) H 05/10/25 10:44 INR 1.2 (0.9-1.1) H 05/10/25 10:44 APTT 117 Seconds (21-31) H* 05/10/25 10:44 PTT Ratio 4.3 05/10/25 10:44 VBG pH 7.40 (7.36-7.41) 05/10/25 11:10 VBG pCO2 41 mmHg (38-50) 05/10/25 11:10 VBG pO2 30 mmHg 05/10/25 11:10 VBG HCO3 25 mmol/L 05/10/25 11:10 VBG O2 Saturation < 60.0 % 05/10/25 11:10 VBG Base Excess 0.6 mEq/L 05/10/25 11:10 Sodium 131 mmol/L (136-145) L 05/10/25 10:44 Potassium 4.9 mmol/L (3.5-5.1) 05/10/25 10:44 Chloride 94 mmol/L (98-107) L 05/10/25 10:44 Carbon Dioxide 26 mmol/L (21-32) 05/10/25 10:44 Anion Gap 11 (3-11) 05/10/25 10:44 BUN 51 mg/dl (6-23) H 05/10/25 10:44 Creatinine 6.01 mg/dl (0.6-1.2) H* 05/10/25 10:44 Est Cr Clr Drug Dosing 10.7 ml/min 05/10/25 10:44 eGFR 7.27 05/10/25 10:44 BUN/Creatinine Ratio 8.5 (10-20) L 05/10/25 10:44 Glucose 131 mg/dl (70-99(Fasting)) H 05/10/25 10:44 Calcium 8.0 mg/dl (8.6-10.3) L 05/10/25 10:44 Phosphorus 3.9 mg/dl (2.5-4.9) 05/10/25 10:44 Magnesium 1.7 mg/dl (1.7-2.4) 05/10/25 10:44 Total Bilirubin 0.4 mg/dl (0.2-1.0) 05/10/25 10:44 AST 12 U/L (13-39) L 05/10/25 10:44 ALT 7 U/L (7-52) 05/10/25 10:44 Alkaline Phosphatase 140 U/L (34-104) H 05/10/25 10:44 Troponin I High Sens 18.8 pg/ml (0-14) H 05/10/25 10:44 Total Protein 5.5 gm/dl (6.0-8.3) L 05/10/25 10:44 Albumin 2.5 gm/dl (3.4-5.0) L 05/10/25 10:44 Globulin 3.0 gm/dl (2.5-4.0) 05/10/25 10:44 Albumin/Globulin Ratio 0.8 (0.9-2) L 05/10/25 10:44 Lipase 33 U/L (11-82) 05/10/25 10:44 Blood Type O Negative 05/10/25 11:08 Antibody Screen NEGATIVE 05/10/25 11:08 Crossmatch See Detail 05/10/25 11:08 Impressions Chest X-Ray 05/10/25 10:47 XR chest 1V portable CLINICAL HISTORY: Eval for fluid COMPARISON STUDY: 02/17/2025 FINDINGS: The right-sided dual-lumen central venous catheter remains unchanged in position with its tip projected over the right atrium. There is been interval placement of a left subclavian central venous catheter. The tip also projects over the left atrium. There is no pneumothorax. The heart remains enlarged. There are bilateral pleural effusions. There is no current evidence of pulmonary edema. Since the prior study the patient has developed left basilar atelectasis/consolidation. A catheter/wire projects of the left hemithorax terminating at the level left hilum. This is of uncertain etiology. IMPRESSION: 1. Interval insertion of a left subclavian central venous catheter the tip which projects to the right atrium 2. Visualization of a catheter/wire jugular the left hemithorax with its tip at the level the left hilum. This is of uncertain etiology 3. Stable right pleural effusion 4. Interval development of a left pleural effusion with associated left lower lobe atelectasis/consolidation 5. No pneumothorax identified ACT 112: Negative or not required by law. Electronically signed by: Sav Hdz M.D. 05/10/2025 11:12 AM PG Care Time/CCT Total # of Minutes Spent Total Time Spent with Patient: 80 min provided to discuss admission w/ EMD, review laboratory test results, interview and examine patient, discuss blood transfusion w/ patient, coordinate transfusion and HD, enter HD orders into EMR and coordinate treatment w/ telephone order clerk HD RN, order am labs, update medical record Coding Level of Care Code 38396 IN/OBS CONSULT LVL 5,80M Diagnoses ESRD on dialysis N18.6; Z99.2 Severe anemia D64.9 Sternal osteomyelitis M86.9 S/P CABG x 3 Z95.1 Essential hypertension I10 Diabetes mellitus type 2 with complications E11.8 Status post below knee amputation of right lower extremity Z89.511
--- NOTE | 2025-05-10 12:42 | History & Physical Report ---
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 #Anemia, hgb 6.0 #ESRD on HD found to have hgb 6.0 this AM and was advised to go to the hospital. Patient denies any falls or trauma, nor reports any obvious blood loss from sternal wound, HD caths, or SANKET drain sites, no dark/tarry stools, hematuria, hematemesis, or hematochezia; prior baseline Hgb was between 8-10 She is likely to have chronic anemia due to her minimal kidney function at baseline thus she is not producing EPO to make new RBCs. Additionally she has been under significant physical and emotional stress since February 2025, likely contributing to her inability to adequately produce RBCs; no obvious hemorrhagic sources noted, however could consider a stool occult blood to rule out contribution from GI bleed - pRBCs x2 units transfused nephrology consulted, appreciate recs underwent hemodialysis this afternoon 05/10, tolerated well received 20,000 units EPO Ordered iron profile + ferritin and B12 levels for further workup of anemia CBC and BMP in AM #thrombocytopenia likely same rationale as for anemia above - platelet transfusion threshold <10 - per Dr. Carias (cardiothoracic surgery) on 05/04/25 final [facility] progress note, hold plavix but may continue aspirin daily CBC AM #sternal osteomyelitis Wound cx revealing Kleb pneumo and Corynebacterium in late Mar 2025 when discovered Current mild leukocytosis with neutrophil predominance [place] d/c summary from 05/05/25 noting continue abx, namely cefepime IV MWF and linezolid 300mg BIDM until 05/13 continuing above abx through documented course as noted above daily wound care CBC in AM #pleural effusions, new on L cxr showing possible consolidation vs atelectasis, however no pneumothorax seen - no SOB, chest pain, lightheadedness or dizziness reported consider 2-view cxr if above symptoms develop if no concern for bleeding, may continue home bumex for diuresis O2 supplementation via NC as needed, O2 goal >90% #elevated ferritin, low TIBC she received two units of pRBCs at [facility] within the past 2-3 weeks, which could be why ferritin and transferrin saturation are as elevated as they are - prior ferritin in Jan 2024 was within normal limits, pointing more to the above rationale #hyponatremia 131 on labs, undergoing dialysis with transfusion of 2 units pRBCs, thus likely to correct; not symptomatic other than generalized weakness and fatigue BMP AM chronic, stable: DM2 w/ neuropathy- short-acting insulin with meals CAD, CABGx3: continue daily aspirin 81mg, gabapentin 100mg qAM, metop tartrate 12.5mg BID - HOLDING clopidogrel, cont ASA insomnia- hold home trazodone d/t interaction with linezolid VTE ppx: would hold home heparin 5000 units subQ BID until AM Diet: NPO for now Dispo: pcu-tele History of Present Illness Chief Complaint: weakness, fatigue Primary Care Provider: DO Jeanne Brody is a 64yo with ESRD on dialysis, DM2 with neuropathy and R BKA, has been living at [facility] since discharge from [facility] on 05/05/25 after nearly month for sternal dehiscence and complication of sternal osteomyelitis. States she had only been feeling some fatigue and weaker than usual but no other specific symptoms, and found out from a lab draw this morning that we hemoglobin was 6.0, reporting Dr. Mei advised that she go straight to the hospital for workup. Denies any known or obvious bleeding anywhere, denies chest pain, pleuritic pain, headache, lightheadedness, dizziness, abdominal pain, hematuria, dark or bloody stools. States she has been on antibiotics at discharge from [facility] but does not recall what they were. Does note she has ESRD and does dialysis on a MWF schedule, which she had not done yet today (saturday05/10/25). Denies any history of cancer, blood clots, or bleeding disorders. ER course: 1mg Bumex, 1 unit pRBCs Denies she currently has a POA or health care proxy but willing to discuss this with and son when they visit. Allergies Allergy/AdvReac Type Severity Reaction Status Date / Time daptomycin Allergy Severe rhabdomyoly Verified 03/30/25 15:03 sis amoxicillin Allergy Intermediate HIVES & N/V Verified 03/30/25 15:03 clavulanic acid Allergy Intermediate HIVES & N/V Verified 03/30/25 15:03 vancomycin Allergy Intermediate pruritus Verified 03/30/25 15:03 sulfamethoxazole AdvReac Severe renal Verified 03/30/25 15:03 [From Bactrim] failure trimethoprim [From Bactrim] AdvReac Severe renal Verified 03/30/25 15:03 failure lisinopril AdvReac Intermediate NAUSEA/VOMI Verified 03/30/25 15:03 TING omeprazole AdvReac Intermediate Nausea Verified 03/30/25 15:03 Home Medications Medication Instructions Recorded Confirmed Type polyethylene glycol 3350 17 17 g PO DAILY PRN Constipation 12/13/21 05/10/25 History gram/dose oral powder (Miralax) aspirin 81 mg tablet,delayed 81 mg PO DAILY 11/15/22 05/10/25 History release (Adult Low Dose Aspirin) blood glucose control high and low #1 ea 04/03/23 03/30/25 Rx solution (Accu-Chek Guide L1-L2 Control Solution) trazodone 50 mg tablet 25 mg (1/2 x 50 mg) PO HS #45 tabs 08/28/24 05/10/25 Rx Prosthetic Socket replacement #1 ea 01/01/25 03/30/25 Rx Socket replacement and supplies #1 ea 01/01/25 03/30/25 Rx acetaminophen 500 mg tablet 1,000 mg PO Q8H PRN PPAIN 03/29/25 05/10/25 History (Tylenol Extra Strength) clopidogrel 75 mg tablet (Plavix) 75 mg PO DAILY 03/29/25 05/10/25 History insulin aspart U-100 100 unit/mL 6 unit subcut .with meals 03/29/25 05/10/25 History subcutaneous solution pantoprazole 40 mg tablet,delayed 40 mg PO DAILY 03/29/25 05/10/25 History release bumetanide 1 mg tablet 0 mg PO DIRECTED 03/30/25 05/10/25 History gabapentin 100 mg capsule 100 mg PO QAM 03/30/25 05/10/25 History Lactobacillus acidophilus 1 tab PO DAILY 05/10/25 05/10/25 History atorvastatin 80 mg tablet 80 mg PO HS 05/10/25 05/10/25 History cefepime 2 gram solution for 2 g IV [id number] 05/10/25 05/10/25 History injection cyanocobalamin (vitamin B-12) 500 1,000 mcg PO DAILY 05/10/25 05/10/25 History mcg tablet docusate sodium 100 mg tablet 100 mg PO BID 05/10/25 05/10/25 History folic acid 0.8 mg capsule 0.4 mg PO DAILY 05/10/25 05/10/25 History heparin (porcine) 5,000 unit/mL 5,000 unit subcut BID 05/10/25 05/10/25 History injection solution linezolid 600 mg tablet 300 mg PO BID 05/10/25 05/10/25 History loperamide 2 mg capsule 2 mg PO Q8H PRN Diarrhea 05/10/25 05/10/25 History magnesium hydroxide 400 mg/5 mL 15 ml PO DAILY PRN Constipation 05/10/25 05/10/25 History oral suspension (Milk of Magnesia) melatonin 5 mg tablet 5 mg PO HS PRN Insomnia 05/10/25 05/10/25 History metoprolol tartrate 25 mg tablet 12.5 mg PO BID 05/10/25 05/10/25 History miconazole nitrate 2 % topical 1 applic topical BID 05/10/25 05/10/25 History powder oxycodone 10 mg tablet 10 mg PO Q4H PRN pain 05/10/25 05/10/25 History tuberculin PPD 5 tub. unit/0.1 mL 0 tb unit intradermal DIRECTED 05/10/25 05/10/25 History intradermal injection solution (Tubersol) Past Med/Surg History Problem List Sternal osteomyelitis S/P CABG x 3 ESRD on dialysis Weakness generalized Severe anemia CAD (coronary artery disease) Chest pain (Acute) Leukocytosis (Acute) Chronic pain Essential hypertension Diabetes mellitus type 2 with complications Orthopnea Anemia (Acute) Renal hematoma, left Proteinuria Diabetic neuropathy Irregular bowel habits GERD (gastroesophageal reflux disease) (Chronic) Chronic constipation Vitamin D deficiency 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) Charcot's arthropathy Sleep apnea no cpap Dyslipidemia Chronic back pain Chronic venous insufficiency (Chronic) Osteoarthritis (Chronic) Medical History Pleural effusion on right (HFpEF) heart failure with preserved ejection fraction Chronic heart failure with preserved ejection fraction (HFpEF) PAD (peripheral artery disease) Hypervolemia Acute kidney injury superimposed on chronic kidney disease Acute kidney failure Chronic kidney disease, stage 4 (severe) Recurrent pleural effusion on right Chronic osteomyelitis Hypertension Non-traumatic rhabdomyolysis (02/2021) Postmenopausal bleeding Anemia of chronic disease Diabetic ulcer of left great toe PAD (peripheral artery disease) S/P right lower extremity angiogram, mechanical thrombectomy of pre-existing superficial femoral artery stent usinh Anjojet [place] Omni catheter, balloon angioplasty of the superficial femoral artery stent using 5 X 200 mm Melcher [place] balloon, balloon angioplasty of the superficial femoral artery 6 X 250 mm IN.PACT drug coated balloon, stent angioplasty of the superficial femoral artery using 5 X 150 mm INOVA bare metal stent, and debridement of the right lateral foot on 11/14/[address] Lomeli. S/P bilateral SFA stenting Morbid obesity BMI 45.7 Clostridium difficile colitis history (~11/2016) -- treated no problems since. Charcot's joint of foot due to diabetes Surgical History History of vascular surgery (04/20/22) L SFA Angio Extremity Unilateral Fem Pop Balloon Atherectomy History of bilateral cataract extraction Status post amputation of toe of right foot (11/14/20) amputation metatarsal w/ toe, R S/P vascular surgery (11/2020) R fem-pop [id number] w/ stent and angioplasty S/P femoral-popliteal bypass surgery S/P angioplasty (10/2019) RT SFA atherectomy/angioplasty w/ MARSHA S/P angioplasty (06/2019) LT SFA angioplastly with MARSHA History of cholecystectomy History of tooth extraction History of esophagogastroduodenoscopy (EGD) S/P epidural steroid injection H/O vascular surgery (01/2020) LT SFA atherectomy, MARSHA w/ supera stenting History of lumpectomy of right breast benign Status post tubal ligation Status post tonsillectomy Family History Mother Rheumatoid arthritis Father Emphysema of lung Peripheral artery disease Aunt Breast cancer MOMS SIDE Colorectal cancer MOMS SIDE Myocardial infarction MOMS SIDE Brother Prostate cancer Sister COPD (chronic obstructive pulmonary disease) Other No family history of adverse response to anesthesia Denies family history of Ovarian cancer CAD (coronary atherosclerotic disease) Social History Smoking Status: Never smoker Tobacco Type: Cigarettes Age Started Using Tobacco: 9; Age Quit Using Tobacco: 54; packs per day: 2; Second Hand Exposure: No; Do You Dip or Chew Tobacco: No; Hx Alcohol Use: No Hx Substance Use: No Preferred Language: Serbian Communication Ability: Effective Visual Impairment: No Limitations Hearing Ability: Normal Armoured Car Escort Required: No Beliefs That Will Affect Care: None marital status: Current Living Situation: Family Current Living Situation Comment: lives with and son current occupational status: disabled How many Children do You have: 1 other: previous worked at [employer] Feels Safe at Home: Yes Childhood Exposure to Second-Hand Smoke: Yes (father was a heavy smoker ) Diet: regular Diet Comment: regular caffeine: Yes (very little) during the past year weight has: remained stable Dental Care, Regularly: No Physical Activity Frequency: Does not Exercise Seatbelt Use: always Sunscreen Use: No Assistive Devices: Cane, Walker and Wheelchair Physical Exam Physical Exam: Gen: appearing in no acute distress, A&Ox3 HEENT: b/l cervical paraspinal hypertonicity and some tenderness, NC/AT CV: mildly tachycardic rate, regular rhythm, no m/r/g Resp: clear to auscultation b/l, good symmetric chest wall mvmt and breath sounds, no w/r/R GI/Abd: +BS, nontender to palpation of entire abdomen MSK: 2 dialysis ports inf to R clavicle with unremarkable skin sites; 2 SANKET drains in mid and left epigastric region with mild tenderness to palpation around insertion sites, tubes with no active drainage, only dry blood noted; sternal surgical scar healing well with no obvious dehiscence, erythema, blood, or other discharge, not particularly tender to palpation - R BKA noted; LLE with 1+ pitting edema , minimal tenderness to palpation, not appearing erythematous, negative Breezy Neuro: no facial droop, no obvious focal deficits; LE sensation reduced likely chronic related to DM neuropathy Results & Data Results & Data Vital Signs (Past 12 Hours) Vital Signs Temp Pulse Pulse Resp BP Pulse Ox O2 Del Method 05/10/25 12:24 106 H 05/10/25 12:08 90 16 05/10/25 10:33 90 32 H 95 Room Air 05/10/25 10:33 36.8 C 90 32 H 124/61 95 Room Air Supervising Physician Co-Signing Physician Notes I personally examined the patient and verified all hernandez points of history and exam, discussed case, and agree with decision making with Dr Hoff feeling ok no new sx getting blood and HD. vitals noted nad heent nc at mmm breathing unlabored no accessory muscles good effort skin no rashes no pallor or icterus neuro no focal deficits severe anemia -likely all related to chronic (ESRD) and long acute (CABG and subsequent sternal infection) as well as associated phlebotomy. nothing appearing c/w acute hemorrhage -check iron stores, b12 - replace if low -transfuse -EPO per nephro otherwise as above; if nothing new unfolds, pt responds appropriately to transfusion -> hopefully return to SNF tomorrow Resident Activity Tracking Resident Involvement: Resident Care Provided Care Provided: Adult Hospital Medicine
[2025-05-10 15:08] LABS: Ferritin 1043.2 ng/ml (8-388); Iron 108.0 mcg/dl (35-150); Total Iron Binding Cap Calc 175.0 mcg/dl (250-450); Transferrin 125.0 mg/dl (200-360); Transferrin (FE) Percent Satur 62.0 % (15-50)
[2025-05-10] MEDS: HEPARIN SOD (PORCINE) 1000 UNIT/ML IV ONE (16:06)
--- NOTE | 2025-05-10 16:06 | Billing Data ---
Date of Service May 10, 2025 Coding Level of Care Code 79086 INT INP/OBS CARE
[2025-05-10] MEDS: EPOETIN ALFA 20,000 UNITS/ML VIAL IV ONE (17:14)
[2025-05-10] MEDS ORDERED: MAGNESIUM HYDROXIDE SUSP 30 ML UDC PO PRN (18:31)
[2025-05-10] MEDS ORDERED: ALUMINUM/MAGNESIUM SUSP 30 ML UDC PO PRN (18:31)
[2025-05-10] MEDS ORDERED: NITROGLYCERIN SL 0.4 MG/TAB TAB SL PRN (18:31)
[2025-05-10] MEDS ORDERED: ONDANSETRON INJ 2 MG/ML 2 ML VIAL IV PRN (18:31)
[2025-05-10] MEDS ORDERED: MELATONIN 3 MG TAB PO PRN (18:31)
[2025-05-10] MEDS ORDERED: POLYETHYLENE (MIRALAX) 17 GM PACK PO PRN (18:31)
[2025-05-10] MEDS ORDERED: MoRPHine SULFATE 2 MG/ML CARP IV PRN (18:31)
[2025-05-10] MEDS: ACETAMINOPHEN 325 MG TAB PO PRN (18:52)
[2025-05-10] MEDS ORDERED: Nursing to Pharmacy Communication SCH (20:15)
[2025-05-10] MEDS ORDERED: LINEZOLID 600 MG TAB PO SCH (21:00)
[2025-05-10] MEDS: INSULIN ASPART PER UNIT CHARGE SQ SCH ×2 (21:05→21:07)
[2025-05-10] MEDS: NITROGLYCERIN 2% OINTMENT 30GM TUBE EXT SCH ×2 (21:07→21:35)
[2025-05-10] MEDS: CEFEPIME 1000MG 1,000 MG/10 ML SYR IV SCH (21:34)
[2025-05-10] MEDS: LINEZOLID 600 MG TAB PO SCH (21:36)
[2025-05-10] MEDS: GABAPENTIN 100 MG CAP PO SCH (21:36)
[2025-05-11 06:34] LABS: Hematocrit (blood only) 25.1 % (37.0-47.0); Hemoglobin 8.5 g/dL (12.0-16.0); Mean Corpuscular Hemoglobin 30.8 pg (25.0-34.0); Mean Corpuscular Volume 90.9 fL (80.0-100.0); Platelet Count 105 K/uL (130-400); RDW Standard Deviation 50.0 fL (36.4-46.3); Red Blood Count 2.76 M/uL (4.20-5.40); White Blood Count 14.22 K/ul (4.8-10.8)
[2025-05-11 07:14] LABS: Anion Gap 10.0 (3-11); Blood Urea Nitrogen 29.0 mg/dl (6-23); Calcium 8.3 mg/dl (8.6-10.3); Carbon Dioxide 26.0 mmol/L (21-32); Chloride 99.0 mmol/L (98-107); Creatinine Clr Calc Pharmacy 16.9 ml/min; Glucose 116.0 mg/dl (70-99(Fasting)); Potassium 4.3 mmol/L (3.5-5.1); Sodium 135.0 mmol/L (136-145)
--- NOTE | 2025-05-11 07:22 | Hospitalist Progress Note ---
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 #sternal osteomyelitis #tender SANKET-drain site #elevated CRP Wound cx revealing Kleb pneumo and Corynebacterium in late Mar 2025 when discovered; sternal wound itself unchanged on exam since day prior, possible slight increase in erythema of the L-superior of her 2 SANKET drain sites, but no drainage or significant warmth noted; also reports no systemic symptoms suggestive of worsening infection Current mild leukocytosis with neutrophil predominance, inc from -> 14 [place] d/c summary from 05/05/25 noting continue abx, namely cefepime IV MWF and linezolid 300mg BIDM until 05/13 continuing above abx through documented course as noted above CRP low 20s, up from 13 about a week prior at [facility] due to upward trend of heart rate overnight, increasing white count, and inc of CRP, ordered blood cultures however as pt is clinically doing well and there are no alarming signs of overt infection or worsening acute process, as well as low likelihood of bacteria resistant to cefepime or linezolid, will maintain current abx regimen daily wound care CBC and CRP in AM #Anemia, improved 6 -> 8.5 s/p transfusion #ESRD on HD found to have hgb 6.0 on 05/10/25 AM, advised to go to the hospital. Patient denies any falls or trauma, nor reports any obvious blood loss from sternal wound, HD caths, or SANKET drain sites, no dark/tarry stools, hematuria, hematemesis, or hematochezia; prior baseline Hgb was between 8-10 pRBCs x2 units transfused 05/10/25 nephrology consulted, appreciate recs underwent hemodialysis 05/10 during blood transfusion, tolerated well received 20,000 units EPO She is likely to have chronic anemia due to her minimal kidney function at baseline thus she is not producing EPO to make new RBCs. Additionally she has been under significant physical and emotional stress since February 2025, likely contributing to her inability to adequately produce RBCs; no obvious hem orrhagic sources noted may restart clopidogrel 75mg daily, cont heparin Ordered iron profile + ferritin and B12 levels for further workup of anemia elevated ferritin likely d/t acute phase reactant and recent hx of multiple blood transfusions at [facility] in past month elevated B12 due to likely taking more than her body can use to produce more RBCs, advised to hold B12 supplementation for now CBC and BMP in AM #thrombocytopenia likely same rationale as for anemia above - platelet transfusion threshold <[address] Carias (cardiothoracic surgery) on 05/04/25 final [facility] progress note CBC AM #pleural effusions, new on L cxr showing possible consolidation vs atelectasis, however no pneumothorax seen - no SOB, chest pain, lightheadedness or dizziness reported consider 2-view cxr if above symptoms develop if no concern for bleeding, may continue home bumex for diuresis O2 supplementation via NC as needed, O2 goal >90% #elevated ferritin, low TIBC she received two units of pRBCs at [facility] within the past 2-3 weeks, which could be why ferritin and transferrin saturation are as elevated as they are - prior ferritin in Jan 2024 was within normal limits, pointing more to the above rationale #hyponatremia improved to 135, underwent dialysis with transfusion of 2 units pRBCs day prior; not symptomatic other than generalized weakness and fatigue BMP AM chronic, stable: DM2 w/ neuropathy- short-acting insulin with meals CAD, CABGx3: continue daily aspirin 81mg, gabapentin 100mg qAM, metop tartrate 12.5mg BID - may continue clopidogrel, cont ASA insomnia- hold home trazodone d/t interaction with linezolid VTE ppx: heparin 5000 units subQ BID Diet: reg heart healthy, carb consistent DM2 Dispo: pcu-tele Admission and Anticipated Discharge Date Admission Date: May 10, 2025 Supervising Physician Co-Signing Physician Notes I personally examined the patient and verified all hernandez points of history and exam, discussed case, and agree with decision making with Dr Hoff Overall feeling better. Does have some pain where her drains are, but notes that a change in the dressing helped this a lot. No shortness of breath. No new pain anywhere else. Overall feels better. Vitals noted, in general she is awake and alert pleasant fatigued no distress. HEENT normocephalic atraumatic mucous membranes moist. Cardio is very slightly tachycardic without rubs murmurs or gallops. Lungs are clear without rales rhonchi or wheezes good effort no conversational dyspnea on room air no accessory muscle use. Skin shows sternal scabbing and drains with no erythema no exudate, drain has no real meaningful drainage in it just some dried blood. No other skin lesions. No erythema or cellulitis elsewheretoes as noted by resident physician are nonspecifically pink/red, nothing consistent with erythema no open lesions no tracking erythema no lower extremity cellulitis. Neuro shows no lateralizing signs. Right lower extremity absent. SIRSslightly elevated white count and heart rate compared to yesterdayI suspect this is actually all nonspecific given her chronic inflammation from multiple major procedures and sternal osteomyelitis; at the same time, she is brittle enough that ruling out a new infection is important. CRP noted, nonspecific given her contexta trend will be of more meaningful results. I do not see or hear anything on signs or symptoms consistent with pneumonia, she has lots of scabbing and drains but nothing consistent with cellulitis, she has no notable urinary symptoms, she has no GI symptoms or diarrhea, and blood cultures have been sent. Continue current coverage with linezolid and cefepimeI do not see a focus to justify the risk of adjusting her antibiotics at this time. Follow into tomorrow with serial examsdiscussed with patient I suspect this is all nonspecific inflammation but a new or worse infection is obviously the diagnosis of exclusion here. severe anemia -likely all related to chronic (ESRD) and long acute (CABG and subsequent sternal infection) as well as associated phlebotomy. nothing appearing c/w acute hemorrhage - Responded appropriately to transfusion. Iron studies largely consistent with inflammation/phase reactant, not deficiency, B12 adequate Follow into tomorrow given new inflammatory markersdoubt new or worsening infection, but obviously need to exclude this before return to SNF. Subjective Endorses feeling overall a bit better in terms of the fatigue and weakness, as well as the pain from day prior. Was told by nursing she had a bit of fluid coming from her L lower leg, but no blood from any of her wound sites. Denies any new fever, body aches, chills, sweats, SOB, or chest pain. Physical Exam Physical Exam: Gen: appearing in no acute distress, A&Ox3 HEENT: b/l cervical paraspinal hypertonicity and some tenderness, NC/AT CV: mildly tachycardic rate, regular rhythm, no m/r/g Resp: clear to auscultation b/l, good symmetric chest wall mvmt and breath sounds, no w/r/R GI/Abd: +BS, nontender to palpation of entire abdomen MSK: 2 dialysis ports inf to R clavicle with unremarkable skin sites; 2 SANKET drains in mid and left epigastric region with mild tenderness to palpation and slight erythema around insertion site parker the on to the L of midline, tubes with no active drainage, only dry blood noted; sternal surgical scar healing well with no obvious dehiscence, erythema, blood, or other discharge, not particularly tender to palpation - R BKA noted; LLE with 2+ pitting edema , minimal tenderness to palpation, not appearing erythematous, negative Breezy - L toes erythematous but not warm; base line sensation is minimal so no tenderness to palpation Neuro: no facial droop, no obvious focal deficits; LE sensation reduced likely chronic related to DM neuropathy Results & Data Results & Data Vital Signs (Past 12 Hours) Vital Signs Temp Pulse Pulse Pulse Resp BP Pulse Ox 05/11/25 02:40 37.1 C 98 H 18 116/67 94 05/11/25 01:56 97 H 05/10/25 23:17 37.2 C 99 H 19 117/71 97 05/10/25 19:40 36.8 C 99 H 18 133/73 95 O2 Del Method 05/11/25 02:40 Room Air 05/11/25 01:56 05/10/25 23:17 Room Air 05/10/25 19:40 Room Air Resident Activity Tracking Resident Involvement: Resident Care Provided Care Provided: Adult Hospital Medicine
[2025-05-11] MEDS ORDERED: NITROGLYCERIN 2% OINTMENT 30GM TUBE EXT PRN (07:48)
[2025-05-11] MEDS: ASPIRIN 81 MG ECTAB PO SCH (07:51)
--- NOTE | 2025-05-11 09:14 | Nephrology Progress Note ---
Date of Service May 11, 2025 Assessment & Plan (1) ESRD on dialysis: Plan: * Volume status and electrolyte balance are acceptable. No acute indication for HD today * Will plan next HD for am if patient is still admitted * If discharge is anticipated, please have patient resume outpatient HD [facility] on Saturday * Outpatient HD orders: MWF 3.5-hour FxCorAL 80 2K 2.5 Ca 1.0 Mg Na 135 HCO3 37 EDW 105kg heparin 1000 unit bolus * Monitor daily BMP, CBC (2) Severe anemia: Plan: * Clinically suspect REID resistance due to chronic inflammation * Discussed w/ primary service. HD w/ 2 units PRBC transfusion provided yesterday (3) Sternal osteomyelitis: Plan: * IV cefepime and linezolid as per primary service (4) S/P CABG x 3: Plan: * Elevated troponin on admission c/w ESKD-D * Currently no angina (5) Essential hypertension: Plan: * BP acceptable. Will monitor (6) Diabetes mellitus type 2 with complications: (7) Status post below knee amputation of right lower extremity: Admission and Anticipated Discharge Date Admission Date: May 10, 2025 Subjective Mrs. Simpson was evaluated in her hospital room. She was dialyzed yesterday for 3.5 hours and transfused 2 units PRBC. There were no complications. She is subjectively improved this morning. Review of Systems Constitutional: no fever Eyes: no problem reported Ear, Nose, Mouth, Throat: no problem reported Respiratory: no cough and no dyspnea Cardiovascular: no chest pain Gastrointestinal: no abdominal pain, no nausea, no vomiting and no diarrhea/loose stools Integumentary: no rash Neurologic: no problem reported Physical Exam Constitutional: not in distress Eyes: PERRL, conjunctivae normal, anicteric sclerae ENMT: external ear and nose normal, oropharynx normal Neck: trachea midline, no thyromegaly Respiratory: normal respiratory effort, lungs clear to auscultation Cardiovascular: RRR, no murmur, no edema Gastrointestinal (Abdomen): normal bowel sounds, soft, nontender, no hepatosplenomegaly Musculoskeletal: Extremities: no cyanosis and no clubbing Skin: no rashes, warm and dry Neurologic: no focal motor deficits Results & Data Vital Signs (Past 12 Hours) Vital Signs Temp Pulse Pulse Pulse Resp BP Pulse Ox 05/11/25 07:28 36.8 C 111 H 19 132/69 93 05/11/25 02:40 37.1 C 98 H 18 116/67 94 05/11/25 01:56 97 H 05/10/25 23:17 37.2 C 99 H 19 117/71 97 O2 Del Method 05/11/25 07:28 Room Air 05/11/25 02:40 Room Air 05/11/25 01:56 05/10/25 23:17 Room Air Laboratory Results Laboratory Results - last 24 hr 05/10/25 05/10/25 05/10/25 10:44 11:08 11:10 WBC 10.95 H RBC 1.90 L Hgb 6.0 L* Hct 17.6 L* MCV 92.6 MCH 31.6 MCHC 34.1 RDW Std Deviation 53.9 H RDW Coeff of Adelina 17.0 H Plt Count 99 L MPV 11.0 Immature Gran % (Auto) 1.3 Neut % (Auto) 78.7 Lymph % (Auto) 8.3 [place] % (Auto) 8.8 Eos % (Auto) 2.5 Baso % (Auto) 0.4 Neut # (Auto) 8.63 H Lymph # (Auto) 0.91 L [place] # (Auto) 0.96 H Eos # (Auto) 0.27 Baso # (Auto) 0.04 Immature Gran # (Auto) 0.14 Absolute Nucleated RBC 0.03 Nucleated RBC % (auto) 0.3 Platelet Estimate Decreased L Polychromasia 1+ PT 12.8 H INR 1.2 H APTT 117 H* PTT Ratio 4.3 VBG pH 7.40 VBG pCO2 41 VBG pO2 30 VBG HCO3 25 VBG O2 Saturation < 60.0 VBG Base Excess 0.6 Sodium 131 L Potassium 4.9 Chloride 94 L Carbon Dioxide 26 Anion Gap 11 BUN 51 H Creatinine 6.01 H* Est Cr Clr Drug Dosing 10.7 eGFR 7.27 BUN/Creatinine Ratio 8.5 L Glucose 131 H POC Glucose Calcium 8.0 L Phosphorus 3.9 Magnesium 1.7 Iron 108 TIBC 175 L Transferrin 125 L Transferrin % Sat 62 H Ferritin 1043.2 H Total Bilirubin 0.4 AST 12 L ALT 7 Alkaline Phosphatase 140 H Troponin I High Sens 18.8 H C-Reactive Protein Total Protein 5.5 L Albumin 2.5 L Globulin 3.0 Albumin/Globulin Ratio 0.8 L Lipase 33 Vitamin B12 > 1500 H Nasal Screen MRSA (PCR) Blood Type O Negative Antibody Screen NEGATIVE Crossmatch See Detail 05/10/25 05/10/25 05/10/25 18:30 21:00 Unknown WBC RBC Hgb Hct MCV MCH MCHC RDW Std Deviation RDW Coeff of Adelina Plt Count MPV Immature Gran % (Auto) Neut % (Auto) Lymph % (Auto) [place] % (Auto) Eos % (Auto) Baso % (Auto) Neut # (Auto) Lymph # (Auto) [place] # (Auto) Eos # (Auto) Baso # (Auto) Immature Gran # (Auto) Absolute Nucleated RBC Nucleated RBC % (auto) Platelet Estimate Polychromasia PT INR APTT PTT Ratio VBG pH VBG pCO2 VBG pO2 VBG HCO3 VBG O2 Saturation VBG Base Excess Sodium Potassium Chloride Carbon Dioxide Anion Gap BUN Creatinine Est Cr Clr Drug Dosing eGFR BUN/Creatinine Ratio Glucose POC Glucose 85 127 H Calcium Phosphorus Magnesium Iron TIBC Transferrin Transferrin % Sat Ferritin Total Bilirubin AST ALT Alkaline Phosphatase Troponin I High Sens C-Reactive Protein Total Protein Albumin Globulin Albumin/Globulin Ratio Lipase Vitamin B12 Nasal Screen MRSA (PCR) Negative Blood Type Antibody Screen Crossmatch 05/11/25 05/11/25 06:09 07:26 WBC 14.22 H RBC 2.76 L Hgb 8.5 L Hct 25.1 L MCV 90.9 MCH 30.8 MCHC 33.9 RDW Std Deviation 50.0 H RDW Coeff of Adelina 15.8 H Plt Count 105 L MPV 10.8 Immature Gran % (Auto) Neut % (Auto) Lymph % (Auto) [place] % (Auto) Eos % (Auto) Baso % (Auto) Neut # (Auto) Lymph # (Auto) [place] # (Auto) Eos # (Auto) Baso # (Auto) Immature Gran # (Auto) Absolute Nucleated RBC 0.05 Nucleated RBC % (auto) 0.4 Platelet Estimate Polychromasia PT INR APTT PTT Ratio VBG pH VBG pCO2 VBG pO2 VBG HCO3 VBG O2 Saturation VBG Base Excess Sodium 135 L Potassium 4.3 Chloride 99 Carbon Dioxide 26 Anion Gap 10 BUN 29 H D Creatinine 3.76 H D Est Cr Clr Drug Dosing 16.9 eGFR 12.76 BUN/Creatinine Ratio 7.7 L Glucose 116 H POC Glucose 110 H Calcium 8.3 L Phosphorus Magnesium Iron TIBC Transferrin Transferrin % Sat Ferritin Total Bilirubin AST ALT Alkaline Phosphatase Troponin I High Sens C-Reactive Protein Pending Total Protein Albumin Globulin Albumin/Globulin Ratio Lipase Vitamin B12 Nasal Screen MRSA (PCR) Blood Type Antibody Screen Crossmatch PG Care Time/CCT Total # of Minutes Spent Total Time Spent with Patient: 50 min provided to review dialysis records, progress notes, laboratory data, interview and examine patient, enter orders for am labs, coordinate HD for am, update medical record Coding Level of Care Code 24223 SUB INP/OBS CARE 3/50MIN Diagnoses ESRD on dialysis N18.6; Z99.2 Severe anemia D64.9 Sternal osteomyelitis M86.9 S/P CABG x 3 Z95.1 Essential hypertension I10 Diabetes mellitus type 2 with complications E11.8 Status post below knee amputation of right lower extremity Z89.511
--- NOTE | 2025-05-11 10:38 | Electrocardiogram Report ---
Test Reason : Blood Pressure : */* mmHG Vent. Rate : 88 BPM Atrial Rate : 88 BPM P-R Int : 186 ms QRS Dur : 104 ms QT Int : 378 ms P-R-T Axes : 15 -35 84 degrees QTcB Int : 457 ms Normal sinus rhythm Left axis deviation Low voltage QRS Possible Anterolateral infarct (cited on or before 10-May-2025) Abnormal ECG When compared with ECG of 18-Feb-2025 05:51, [place] interval has decreased QRS voltage has decreased Questionable change in initial forces of Anterolateral leads T wave inversion no longer evident in Inferior leads Confirmed by Billy August ([id number]) on 05/11/2025 10:37:35 AM Referred By: REFERRED SELF Confirmed By: Billy August
[2025-05-11] MEDS: LIDOCAINE 5% 1 PATCH TD SCH (11:12)
--- NOTE | 2025-05-11 11:30 | Billing Data ---
Date of Service May 11, 2025 Coding Level of Care Code 19012 SUB INP/OBS CARE
[2025-05-11] MEDS: CLOPIDOGREL BISULFATE 75 MG TAB PO SCH (12:09)
[2025-05-11] MEDS: REMOVE LIDODERM PATCH SCH (19:50)
[2025-05-11] MEDS: HEPARIN SOD 5,000 UNIT/0.5 ML VIAL SQ SCH (20:01)
[2025-05-12 06:02] LABS: Hematocrit (blood only) 25.9 % (37.0-47.0); Hemoglobin 8.5 g/dL (12.0-16.0); Mean Corpuscular Hemoglobin 30.1 pg (25.0-34.0); Mean Corpuscular Volume 91.8 fL (80.0-100.0); Platelet Count 120 K/uL (130-400); RDW Standard Deviation 51.5 fL (36.4-46.3); Red Blood Count 2.82 M/uL (4.20-5.40); White Blood Count 14.77 K/ul (4.8-10.8)
[2025-05-12 06:22] LABS: Anion Gap 10.0 (3-11); Blood Urea Nitrogen 41.0 mg/dl (6-23); Calcium 8.5 mg/dl (8.6-10.3); Carbon Dioxide 25.0 mmol/L (21-32); Chloride 96.0 mmol/L (98-107); Creatinine Clr Calc Pharmacy 12.8 ml/min; Glucose 149.0 mg/dl (70-99(Fasting)); Potassium 4.6 mmol/L (3.5-5.1); Sodium 131.0 mmol/L (136-145)
[2025-05-12] MEDS ORDERED: SODIUM CHLORIDE 0.9% 1,000 ML IV PRN (07:00)
[2025-05-12 07:44] VITALS: RESP 16
--- NOTE | 2025-05-12 09:03 | Nephrology Progress Note ---
Date of Service May 12, 2025 Assessment & Plan (1) ESRD on dialysis: Plan: * Will provide HD today to maintain MWF schedule. Orders have been entered into EMR and HD RN labor relations analyst has been updated * Outpatient HD orders: MWF 3.5-hour FxCorAL 80 2K 2.5 Ca 1.0 Mg Na 135 HCO3 37 EDW 105kg heparin 1000 unit bolus * If discharge is anticipated, please have patient resume outpatient HD at [facility] on Saturday * Monitor daily BMP (2) Severe anemia: Plan: * Clinically suspect REID resistance due to chronic inflammation * Discussed w/ primary service. HD w/ 2 units PRBC transfusion provided yes (3) Sternal osteomyelitis: Plan: * IV cefepime and linezolid as per primary service (4) S/P CABG x 3: Plan: * Elevated troponin on admission c/w ESKD-D * Currently no angina (5) Essential hypertension: Plan: * BP acceptable. Will monitor (6) Diabetes mellitus type 2 with complications: (7) Status post below knee amputation of right lower extremity: Admission and Anticipated Discharge Date Admission Date: May 10, 2025 Subjective Mrs. Simpson was evaluated in her hospital room. She was awaiting HD this morning. She is anxious to return to [facility] so that she can keep her upcoming CT surgery follow up visit Review of Systems Constitutional: no fever Eyes: no problem reported Ear, Nose, Mouth, Throat: no problem reported Respiratory: no cough and no dyspnea Cardiovascular: no chest pain Gastrointestinal: no abdominal pain, no nausea, no vomiting and no diarrhea/loose stools Integumentary: no rash Neurologic: no problem reported Physical Exam Constitutional: not in distress Eyes: PERRL, conjunctivae normal, anicteric sclerae ENMT: external ear and nose normal, oropharynx normal Neck: trachea midline, no thyromegaly Respiratory: normal respiratory effort, lungs clear to auscultation Cardiovascular: RRR, no murmur, no edema Gastrointestinal (Abdomen): normal bowel sounds, soft, nontender, no he patosplenomegaly Musculoskeletal: Extremities: no cyanosis and no clubbing Skin: no rashes, warm and dry Neurologic: no focal motor deficits Results & Data Vital Signs (Past 12 Hours) Vital Signs Temp Pulse Pulse Pulse Resp BP Pulse Ox 05/12/25 07:42 36.4 C L 96 H 16 115/64 93 12/03/25 07:12 105 H 05/12/25 03:00 36.6 C 98 H 18 129/70 98 05/12/25 02:16 110 H 05/11/25 23:00 36.8 C 111 H 18 128/53 L 95 O2 Del Method 05/12/25 07:42 Room Air 05/12/25 07:12 05/12/25 03:00 Room Air 05/12/25 02:16 05/11/25 23:00 Room Air Laboratory Results Laboratory Results - last 24 hr 05/11/25 05/11/25 05/11/25 06:09 11:14 16:23 WBC RBC Hgb Hct MCV MCH MCHC RDW Std Deviation RDW Coeff of Adelina Plt Count MPV Absolute Nucleated RBC Nucleated RBC % (auto) Sodium Potassium Chloride Carbon Dioxide Anion Gap BUN Creatinine Est Cr Clr Drug Dosing eGFR BUN/Creatinine Ratio Glucose POC Glucose 119 H 133 H Calcium C-Reactive Protein 21.53 H 05/11/25 05/12/25 05/12/25 20:36 05:43 07:53 WBC 14.77 H RBC 2.82 L Hgb 8.5 L Hct 25.9 L MCV 91.8 MCH 30.1 MCHC 32.8 RDW Std Deviation 51.5 H RDW Coeff of Adelina 16.0 H Plt Count 120 L MPV 10.5 Absolute Nucleated RBC 0.05 Nucleated RBC % (auto) 0.3 Sodium 131 L Potassium 4.6 Chloride 96 L Carbon Dioxide 25 Anion Gap 10 BUN 41 H Creatinine 4.97 H* D Est Cr Clr Drug Dosing 12.8 eGFR 9.13 BUN/Creatinine Ratio 8.2 L Glucose 149 H POC Glucose 144 H 152 H Calcium 8.5 L C-Reactive Protein 29.23 H PG Care Time/CCT Total # of Minutes Spent Total Time Spent with Patient: 50 min provided to review progress notes, laboratory data, interview and examine patient, enter orders for am labs, enter dialysis orders and coordinate HD treat ment today, update medical record Coding Level of Care Code 77202 SUB INP/OBS CARE 3/50MIN Diagnoses ESRD on dialysis N18.6; Z99.2 Severe anemia D64.9 Sternal osteomyelitis M86.9 S/P CABG x 3 Z95.1 Essential hypertension I10 Diabetes mellitus type 2 with complications E11.8 Status post below knee amputation of right lower extremity Z89.511
[2025-05-12] MEDS: EPOETIN ALFA 20,000 UNITS/ML VIAL IV SCH (10:45)
--- NOTE | 2025-05-12 13:50 | Ultrasound Report ---
US venous doppler LE LT CLINICAL HISTORY: worse L calf pain, pos Breezy; r/o DVT COMPARISON STUDY: 05/01/2020 FINDINGS: Real-time and color flow Doppler venous study was performed in the extremity. No intralumin al thrombus is visualized. The common femoral femoral popliteal and proximal trifurcation vessels fawad eared patent. There is normal color flow. There is normal rotation. Note is made of calf edema. IMPRESSION: No evidence of left lower extremity DVT. ACT 112: Negative or not required by law. Electronically signed by: Sav Hdz M.D. 05/12/2025 1:48 PM
[2025-05-12 14:04] VITALS: TEMP 99.1; O2SAT 92
[2025-05-12 15:16] VITALS: BP 116/69; PULSE 98
--- NOTE | 2025-05-12 15:28 | Discharge Summary ---
Date of Service May 12, 2025 Admission HPI Per Admitting Provider Jeanne is a 64yo with ESRD on dialysis, DM2 with neuropathy and R BKA, has been living at [facility] since discharge from [facility] on 05/05/25 after nearly month for sternal dehiscence and complication of sternal osteomyelitis. States she had only been feeling some fatigue and weaker than usual but no other specific symptoms, and found out from a lab draw this morning that we hemoglobin was 6.0, reporting Dr. Mei advised that she go straight to the hospital for workup. Denies any known or obvious bleeding anywhere, denies chest pain, pleuritic pain, headache, lightheadedness, dizziness, abdominal pain, hematuria, dark or bloody stools. States she has been on antibiotics at discharge from [facility] [place] [place] but does not recall what they were. Does note she has ESRD and does dialysis on a MWF schedule, which she had not done yet today (saturday05/10/25). Denies any history of cancer, blood clots, or bleeding disorders. ER course: 1mg Bumex, 1 unit pRBCs Denies she currently has a POA or health care proxy but willing to discuss this with and son when they visit. Admission Exam Per Admitting Provider Gen: appearing in no acute distress, A&Ox3 HEENT: b/l cervical paraspinal hypertonicity and some tenderness, NC/AT CV: mildly tachycardic rate, regular rhythm, no m/r/g Resp: clear to auscultation b/l, good symmetric chest wall mvmt and breath sounds, no w/r/R GI/Abd: +BS, nontender to palpation of entire abdomen MSK: 2 dialysis ports inf to R clavicle with unremarkable skin sites; 2 SANKET drains in mid and left epigastric region with mild tenderness to palpation around insertion sites, tubes with no active drainage, only dry blood noted; sternal surgical scar healing well with no obvious dehiscence, erythema, blood, or other discharge, not particularly tender to palpation - R BKA noted; LLE with 1+ pitting edema, minimal tenderness to palpation, not appearing erythematous, negative HomanNeuro: no facial droop, no obvious focal deficits; LE sensation reduced likely chronic related to DM neuropathy Principal Diagnosis severe anemia (resolved) Discharge Exam Gen: appearing in no acute distress, A&Ox3 HEENT: b/l cervical paraspinal hypertonicity and some tenderness, NC/AT CV: mildly tachycardic rate, regular rhythm, no m/r/g Resp: clear to auscultation b/l, good symmetric chest wall mvmt and breath sounds, no w/r/R GI/Abd: +BS, nontender to palpation of entire abdomen MSK: 2 dialysis ports inf to R clavicle with unremarkable skin sites; 2 SANKET drains in mid and left epigastric region with mild tenderness to palpation and slight erythema around insertion site parker the on to the L of midline, tubes with no active drainage, only dry blood noted; sternal surgical scar healing well with no obvious dehiscence, erythema, blood, or other discharge, not particularly tender to palpation - R BKA noted; LLE with 2+ pitting edema, moderate tenderness to palpation, not appearing erythematous - L toes erythematous but not warm; baseline sensation is minimal so no tenderness to palpation Neuro: no facial droop, no obvious focal deficits; LE sensation reduced likely chronic related to DM neuropathy Discharge Data Allergies Allergy/AdvReac Type Severity Reaction Status Date / Time daptomycin Allergy Severe rhabdomyoly Verified 03/30/25 15:03 sis amoxicillin Allergy Intermediate HIVES & N/V Verified 03/30/25 15:03 clavulanic acid Allergy Intermediate HIVES & N/V Verified 03/30/25 15:03 vancomycin Allergy Intermediate pruritus Verified 03/30/25 15:03 sulfamethoxazole AdvReac Severe renal Verified 03/30/25 15:03 [From Bactrim] failure trimethoprim [From Bactrim] AdvReac Severe renal Verified 03/30/25 15:03 failure lisinopril AdvReac Intermediate NAUSEA/VOMI Verified 03/30/25 15:03 TING omeprazole AdvReac Intermediate Nausea Verified 03/30/25 15:03 Consultations 05/10/25 11:51 ED Decision to Admit Stat 05/10/25 18:31 Consult Nephrology Routine Ordered Studies 05/12/25 08:20 US venous doppler LE LT Urgent Hospital Course (1) Severe anemia: (2) Sternal osteomyelitis: (3) ESRD on dialysis: (4) Weakness generalized: (5) CAD (coronary artery disease): (6) S/P CABG x 3: (7) Diabetes mellitus type 2 with complications: Lilliana Angel is a 64yo female with complex medical and surgical history including ESRD on dialysis MWF, DM2 with neuropathy, PAD, CAD with CABG x3 on 02/23/25 and subsequent near month-long hospitalization at [facility] [place] [place] for sternal wound dehiscence and sternal osteomyelitis, 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 As she has since been consistently medically stable and clinically improving with no concerning vital signs, and with close followup with [facility] to remove her SANKET drains tomorrow 05/13, we feel comfortable with her discharge back to [facility] today. #sternal osteomyelitis #tender SANKET-drain site #elevated CRP Wound cx revealing Kleb pneumo and Corynebacterium in late Mar 2025 when discovered; sternal wound itself unchanged on exam since day prior, possible slight increase in erythema of the L-superior of her 2 SANKET drain sites, but no drainage or significant warmth noted; also reports no systemic symptoms suggestive of worsening infection Current mild leukocytosis with neutrophil predominance, inc from 11 -> 14.7 [place] d/c summary from 05/05/25 noting continue abx, namely cefepime IV MWF and linezolid 300mg BIDM until 05/13 CRP low 20s, up from 13 about a week prior at [facility] [place] [place] today increased to upper 20s but has been clinically overall improving; likely increased due to general inflammatory process but with antibiotics and no abrupt change in physical exam, not concerned for acute deterioration blood culture negative at 24hrs No further drainage into SANKET drains, thus can likely proceed with removal at appointment tomorrow 05/13. #Anemia, improved 6 -> 8.5 s/p transfusion and erythropoietin #ESRD on HD found to have hgb 6.0 on 05/10/25 AM, advised to go to the hospital. Patient denies any falls or trauma, nor reports any obvious blood loss from sternal wound, HD caths, or SANKET drain sites, no dark/tarry stools, hematuria, hematemesis, or hematochezia; prior baseline Hgb was between 8-10 pRBCs x2 units transfused 05/10/25 during dialysis; received 20,000 units EPO; received dialysis again today 05/12 She is likely to have chronic anemia due to her minimal kidney function at baseline thus she is not producing EPO to make new RBCs. Additionally she has been under significant physical and emotional stress since February 2025, likely contributing to her inability to adequately produce RBCs; no obvious hemorrhagic sources noted may restart clopidogrel 75mg daily, cont heparin - followup CBC and BMP #thrombocytopenia likely same rationale as for anemia above - platelet transfusion threshold <[address] Carias (cardiothoracic surgery) on 05/04/25 final [facility] [place] [place] progress note #pleural effusions, new on L cxr showing possible consolidation vs atelectasis, however no pneumothorax seen - no SOB, chest pain, lightheadedness or dizziness reported; has been satting in mainly mid-upper 90s on room air may continue home bumex for diuresis; avoiding excess sodium/salt intake in daily diet: limit to 2000mg daily, and limit to 500mg in a given meal #elevated ferritin, low TIBC she received two units of pRBCs at [facility] [place] [place] within the past 2-3 weeks, which could be why ferritin and transferrin saturation are as elevated as they are - prior ferritin in Jan 2024 was within normal limits, pointing more to the above rationale chronic, stable: DM2 w/ neuropathy- short-acting insulin with meals CAD, CABGx3: continue daily aspirin 81mg, gabapentin 100mg qAM, metop tartrate 12.5mg BID - may continue clopidogrel, cont ASA insomnia- hold home trazodone d/t interaction with linezolid, may restart if discontinuing linezolid on 05/13 Total Time Total Time Spent Total Time Spent (In Minutes): <30 Discharge Plan Discharge Items Patient Disposition: Transfer Alf Fac Reason For Visit: SEVERE ANEMIA Discharge Diagnosis: anemia, stable; sternal osteomyelitis Condition on Discharge: Serious Activity: Per Instructions section Non-emergency contact: Primary Care Provider, Surgeon and Specialist Call non-emergency contact if: your symptoms worsen, your pain is not controlled, your pain is unusual for you, you have a fever, your temperature is above 101, your wound has increased redness and your wound has increased drainage Follow-up/Referrals: Andie Rodrigues DO [Primary Care Provider] - Diet: Dialysis Renal and Heart Healthy Addtl Attending Provider Instructions: Please bring this sheet to your [facility] appointment tomorrow 05/13/25 in case they cannot access your [facility] chart Jeanne is a 64yo female with complex medical and surgical history including ESRD on dialysis MWF, DM2 with neuropathy, PAD, CAD with CABG x3 on 02/23/25 and subsequent near month-long hospitalization at [facility] [place] [place] for sternal wound dehiscence and sternal osteomyelitis, 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 As she has since been consistently medically stable and clinically improving with no concerning vital signs, and with close followup with [facility] to remove her SANKET drains tomorrow 05/13, we feel comfortable with her discharge back to [facility] today. #sternal osteomyelitis #tender SANKET-drain site #elevated CRP Wound cx revealing Kleb pneumo and Corynebacterium in late Mar 2025 when discovered; sternal wound itself unchanged on exam since day prior, possible slight increase in erythema of the L-superior of her 2 SANKET drain sites, but no drainage or significant warmth noted; also reports no systemic symptoms suggestive of worsening infection Current mild leukocytosis with neutrophil predominance, inc from 11 -> 14.7 [place] d/c summary from 05/05/25 noting continue abx, namely cefepime IV MWF and linezolid 300mg BIDM until 05/13 CRP low 20s, up from 13 about a week prior at [facility] [place] [place] today increased to upper 20s but has been clinically overall improving; likely increased due to general inflammatory process but with antibiotics and no abrupt change in physical exam, not concerned for acute deterioration blood culture negative at 24hrs No further drainage into SANKET drains, thus can likely proceed with removal at appointment tomorrow 05/13. #Anemia, improved 6 -> 8.5 s/p transfusion and erythropoietin #ESRD on HD found to have hgb 6.0 on 05/10/25 AM, advised to go to the hospital. Patient denies any falls or trauma, nor reports any obvious blood loss from sternal wound, HD caths, or SANKET drain sites, no dark/tarry stools, hematuria, hematemesis, or hematochezia; prior baseline Hgb was between 8-10 pRBCs x2 units transfused 05/10/25 during dialysis; received 20,000 units EPO; received dialysis again today 05/12 She is likely to have chronic anemia due to her minimal kidney function at baseline thus she is not producing EPO to make new RBCs. Additionally she has been under significant physical and emotional stress since February 2025, likely contributing to her inability to adequately produce RBCs; no obvious hemorrhagic sources noted may restart clopidogrel 75mg daily, cont heparin - followup CBC and BMP #thrombocytopenia likely same rationale as for anemia above - platelet transfusion threshold <[address] Carias (cardiothoracic surgery) on 05/04/25 final [facility] [place] [place] progress note #pleural effusions, new on L cxr showing possible consolidation vs atelectasis, however no pneumothorax seen - no SOB, chest pain, lightheadedness or dizziness reported; has been satting in mainly mid-upper 90s on room air may continue home bumex for diuresis; avoiding excess sodium/salt intake in daily diet: limit to 2000mg daily, and limit to 500mg in a given meal #elevated ferritin, low TIBC she received two units of pRBCs at [facility] [place] [place] within the past 2-3 weeks, which could be why ferritin and transferrin saturation are as elevated as they are - prior ferritin in Jan 2024 was within normal limits, pointing more to the above rationale chronic, stable: DM2 w/ neuropathy- short-acting insulin with meals CAD, CABGx3: continue daily aspirin 81mg, gabapentin 100mg qAM, metop tartrate 12.5mg BID - may continue clopidogrel, cont ASA insomnia- hold home trazodone d/t interaction with linezolid, may restart if discontinuing linezolid on 05/13 Pending Studies at Discharge: No Stand-Alone Forms: [facility] [employer] Skilled Items Patient informed of condition?: Yes DNR: No Discharge Level of Care: Skilled Communicable Disease: No Discharge Prognosis: Stable Lines: None Urinary Catheter: No Medications and DC Order Prescriptions: Continued (DME) Accu-Chek Guide L1-L2 Ctrl Nancy Solution See Rx Instructions .Route Qty: 1 0RF Rx Instructions: As directed polyethylene glycol 3350 [Miralax] 17 gram/dose powder 17 g PO DAILY PRN (Reason: Constipation) aspirin [Adult Low Dose Aspirin] 81 mg tablet,delayed release (DR/EC) 81 mg PO DAILY (DME) Prosthetic Socket replacement See Rx Instructions .Route .MEDSUPPLY Qty: 1 0RF Rx Instructions: As directed. Patient states she is being fitted for a new prosthetic. (DME) Socket replacement and supplies See Rx Instructions .Route .MEDSUPPLY Qty: 1 0RF Rx Instructions: As directed. Level K2 clopidogrel [Plavix] 75 mg tablet 75 mg PO DAILY insulin aspart U-100 100 unit/mL solution 6 unit subcut .with meals Rx Instructions: Sliding scale pantoprazole 40 mg tablet,delayed release (DR/EC) 40 mg PO DAILY acetaminophen [Tylenol Extra Strength] 500 mg tablet 1,000 mg PO Q8H PRN (Reason: PPAIN) gabapentin 100 mg capsule 100 mg PO QAM bumetanide 1 mg tablet 0 mg PO DIRECTED Rx Instructions: 2mg BID on //Sat/Sun (non dialysis days) Tubersol 5 tub. unit /0.1 mL Solution 0 tb unit INTRADERMAL DIRECTED Rx Instructions: STARTS ON 05/14/2025 END ON 05/15/25 INJECT 0.1 ML EVERY MIXED SIGNAL DESIGN ENGINEER FOR 1 DAY UNTIL FINISHED 2ND STEP. atorvastatin 80 mg Tablet 80 mg PO HS loperamide 2 mg Capsule 2 mg PO Q8H PRN (Reason: Diarrhea) miconazole nitrate 2 % Powder 1 applic TOPICAL BID Rx Instructions: EACH SHIFT CHANGE UNTIL HEALED magnesium hydroxide [Milk of Magnesia] 400 mg/5 mL Suspension 15 ml PO DAILY PRN (Reason: Constipation) cyanocobalamin (vitamin B-12) 500 mcg Tablet 1,000 mcg PO DAILY heparin (porcine) 5,000 unit/mL Solution 5,000 unit SUBCUT BID docusate sodium 100 mg Tablet 100 mg PO BID Lactobacillus acidophilus Tablet,Chewable 1 tab PO DAILY metoprolol tartrate 25 mg tablet 12.5 mg PO BID folic acid 0.8 mg Capsule 0.4 mg PO DAILY melatonin 5 mg Tablet 5 mg PO HS PRN (Reason: Insomnia) oxycodone 10 mg tablet 10 mg PO Q4H PRN (Reason: pain) linezolid 600 mg Tablet 300 mg PO BID 1 Days Qty: 0 0RF Held trazodone 50 mg tablet 25 mg PO HS Qty: 45 3RF Hold Instructions: Resume on 05/14/25. pt advised to hold trazodone for when she is taking linezolid due to interaction; discuss starting either 05/14 or thursday 05/17 Discontinued cefepime 2 gram Recon Soln 2 g IV [id number] Rx Instructions: every evening on Sat, Sat, Sat Discharge Orders: Discharge Order (Routine); Ordered 05/12/25 Ordered By: Tramaine Hoff Admission Data Admit Date/Time: 05/10/25 16:41 Attending Provider: See Araujo Admit Provider: Tramaine Hoff V. Primary Care Provider: Andie Rodrigues Other Providers: See Araujo; Moise Hunt Other Interventions: Discharge Summary Assessment (RN) Last Done: 05/12/25 15:13 Supervising Physician Co-Signing Physician Notes I personally examined the patient and verified all hernandez points of history and exam, discussed case, and agree with decision making with Dr Hoff continues to feel better. Would very much like to get out of the hospital. Definitely wants to make it to her surgery appointment tomorrow and have drains removed. No new pain no worsening pain no fevers chills. Vitals noted, in general she is awake and alert pleasant fatigued, But less than yesterday, no distress. HEENT normocephalic atraumatic mucous membranes moist. Cardio shows better rates. breathing unlabored no accessory muscle use good effort no conversational dyspnea and is on room air, no cough Skin shows sternal scabbing and drains with no erythema no exudate, looks essentially identical to yesterday. No other skin lesions. No erythema or cellulitis elsewhere. No bony tenderness to palpation on spine. Does have a little bit of paraspinal pain that feels better with gentle direct myofascial. Neuro shows no lateralizing signs. Right lower extremity absent. SIRSslightly elevated white count and heart rateI suspect this is actually all nonspecific given her chronic inflammation from multiple major procedures and sternal osteomyelitis; at the same time, she is brittle enough that ruling out a new infection was important. CRP noted, nonspecific given her context And over 24 hours she has evolved no new symptomswhere she having an antibiotic resistant infection breaking through, I would suspect things would have evolved and instead she continues to feel better. Blood cultures no growth to date. Physician at [facility] updated on current situation and is seeing her tomorrow. She would very much like to leave the hospital, and I do believe this is safe and reasonable. severe anemia -likely all related to chronic (ESRD) and long acute (CABG and subsequent sternal infection) as well as associated phlebotomy. nothing appearing c/w acute hemorrhage - Responded appropriately to transfusion. Iron studies largely consistent with inflammation/phase reactant, not deficiency, B12 adequate safe/stable for return to SNF would recommend CBC, CRP, BMP ~3-4 days sooner if clinically warranted and then periodically thereafter rec'd pt to be seen florin with any new / different / concerning symptoms for the near but foreseeable future otherwise as above Resident Activity Tracking Resident Involvement: Resident Care Provided Care Provided: Adult Hospital Medicine
--- NOTE | 2025-05-12 16:53 | Billing Data ---
Date of Service May 12, 2025 Coding Level of Care Code 50772 IN/OBS DISCH 30 MIN/LESS
== END 2025-05-12 16:11 | DRG 682 ==
LOC: ED 10:33 → EDINP 14:27 → INTOOBSV 16:41 → 2S 18:07